=== PATIENT | female | born 1955 | race Caucasian/White ===

== ENCOUNTER 2022-12-31 09:55 | Emergency (ER) | payer MEDICARE, SELFPAY ==
[2022-12-31] VITALS (14 sets, daily range): BP systolic 132–164; BP diastolic 75–93; PULSE 55–96; RESP 10–20; TEMP 36.5; O2SAT 86–100; BMI 22.9
--- NOTE | 2022-12-31 10:44 | XR_ITS ---
The [address] [address] Patient Name: CRISTOBAL CALERO MRN: [id number] date: 1955 Sex: F Assigned Patient Location: ER Current Patient Location: ER Accession/Order Number: [id number] Exam Date: 12/31/2022 11:00 Report Date: 12/31/2022 11:19 At the request of: DAYSI NOBLE Procedure: XR chest 2V EXAM: XR chest 2V HISTORY: Shortness of breath; technologist notes state shortness of breath, chest pressure and left arm pain intermittently for one week. COMPARISON: None. TECHNIQUE: PA and lateral views of the chest performed. FINDINGS: The trachea is midline. The heart size is normal. The cardiomediastinal silhouette and hilar shadows are normal. The lung volumes are normal. The lung johansen are clear. There is no pneumothorax. There are stable surgical clips overlying the thoracic inlet and upper chest. There is no acute osseous abnormality. XR/XR chest 2V IMPRESSION: There is no acute cardiopulmonary process. Electronically authenticated by: FABIOLA DELGADO Date: 12/31/2022 11:19
--- NOTE | 2022-12-31 10:44 | ECG_ITS ---
The [facility] Test Date: 2022-12-31 Pat Name: CRISTOBAL CALERO Department: Room: - Gender: Female Reo Asset Manager: : 1955 Requested By: ANITHA RAMEY Order Number: [id number] Reading MD: ANITHA RAMEY Measurements Intervals [place] Rate: 61 P: 76 RI: 156 QRS: -21 QRSD: 82 T: 66 QT: 412 QTc: 414 Interpretive Statements 1100 Sinus rhythm 3413 Cannot rule out septal myocardial infarction, probably old 9150 abnormal ECG No previous ECG available for comparison Electronically Signed On 01-03-2023 7:32:33 EDT by ANITHA RAMEY
--- NOTE | 2022-12-31 10:45 | ED_ITS ---
HPI - General Adult General Chief complaint: Chest Pain Stated complaint: PAIN IN L ARM, MILD PRESSURE IN CHEST SOB Time Seen by Provider: 12/31/22 10:44 Source: patient Mode of arrival: walk-in Limitations: no limitations History of Present Illness HPI narrative: Patient is a 67-year-old female who is presenting to the Emergency Room with chief complaint of left-sided neck pain, etc. chest pain, shortness of breath, left arm pain. Patient has a history of cervical stenosis from C3-C7. Patient's been in the left sided chest pain since 4/5 PM yesterday. Patient is uncertain if her left-sided chest pain and left shoulder pain and left arm pain are due to the left side of her neck versus cardiac in nature. 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 Patient's had no injury. No vision or hearing changes. Patient states that she has done injections of cervical spine previously in the past with some relief. Dr. Mcgregor is patient's PCP. Patient just had a stress test and echocardiogram approximately 6-7 months ago. Patient's no chronic history. Patient does have a history of cholesterol,, she is not take statins secondary to statins cause pancreatitis. No other acute complaints. . All systems are negative except as noted/marked. All systems reviewed and otherwise negative. . Nurses note and vital signs reviewed and patient is not hypoxic. General: The patient appears well and in no apparent distress. Patient is resting comfortably on cart. Patient is not toxic, lethargic, or listless Skin: Warm, dry, no pallor noted. There is no rash noted. No petechiae, purpura. Head: Normocephalic, atraumatic; Patient has moderate tenderness to palpation to the soft tissue to the left paracervical area, mild midline C3-C7 tenderness to palpation. Eye: Normal conjunctiva, no drainage, EOMI. PERRL Ears, Nose, Mouth, and Throat: oral mucosa is moist. Nares patent. Mouth without vesicles. Cardiovascular: Regular Rate and Rhythm, no murmur, gallop, rub. No reproducible tenderness to palpation to the left anterior chest wall. No rash. Respiratory: Patient is in no distress, no accessory muscle use, lungs are clear to auscultation, no wheezing, rales or rhonchi Back: non-tender, no CVA tenderness bilaterally to percussion. No CT LS midline pain GI: soft, no tenderness to palpation, no masses appreciated. No rebound, guarding, or rigidity noted. No flank pain bilateral, No distention Musculoskeletal: Patient has full range of motion of all of the extremities, no motor, sensory, or focal neurological deficits Neurological: A&O x3, normal speech Psychiatric: Cooperative Related Data Previous Rx's Medication Instructions Recorded methocarbamol 500 mg tablet 500 mg PO Q8H PRN muscle spasm #10 12/31/22 tabs Allergies Allergy/AdvReac Type Severity Reaction Status Date / Time acetaminophen [From Percocet] Allergy Severe Verified 12/31/22 10:20 aspirin Allergy Severe Anaphylaxis Verified 12/31/22 10:20 butorphanol [From Stadol] Allergy Severe Rash Verified 12/31/22 10:20 ciprofloxacin [From Cipro] Allergy Severe Verified 12/31/22 10:20 homatropine [From Hydromet] Allergy Severe Rash Verified 12/31/22 10:20 hydrocodone [From Hydromet] Allergy Severe Rash Verified 12/31/22 10:20 hydromorphone [From Dilaudid] Allergy Severe Rash Verified 12/31/22 10:20 oxycodone [From Percocet] Allergy Severe Verified 12/31/22 10:20 sulfamethoxazole Allergy Severe severe Verified 12/31/22 10:20 [From Bactrim] illness theophylline Allergy Severe Dizziness Verified 12/31/22 10:20 tramadol Allergy Severe Rash Verified 12/31/22 10:20 trimethoprim [From Bactrim] Allergy Severe severe Verified 12/31/22 10:20 illness morphine AdvReac Severe stomach Verified 12/31/22 10:20 pain promethazine [From Phenergan] AdvReac Severe spasms Verified 12/31/22 10:20 lodine Allergy Severe Uncoded 12/31/22 10:20 PFSH [facility] Medical History (Updated 12/31/22 @ 11:56 by Martinez Eaton MD) Surgical History (Updated 12/31/22 @ 10:47 by Booker Bone) Exam Constitutional Vital Signs, click to edit/add: Last Vital Signs Temp 97.7 F 12/31/22 10:05 Pulse 55 L 12/31/22 11:45 Resp 17 12/31/22 11:45 BP 132/78 H 12/31/22 11:45 Pulse Ox 100 12/31/22 11:45 Course Vital Signs Vital signs: Vital Signs Temperature 97.7 F 12/31/22 10:05 Pulse Rate 65 12/31/22 10:05 Respiratory Rate 20 12/31/22 10:05 Blood Pressure 153/90 H 12/31/22 10:05 Pulse Oximetry 98 12/31/22 10:05 Temperature 97.7 F 12/31/22 10:05 Pulse Rate 55 L 12/31/22 11:45 Respiratory Rate 17 12/31/22 11:45 Blood Pressure 132/78 H 12/31/22 11:45 Pulse Oximetry 100 12/31/22 11:45 Medical Decision Making MDM Narrative Medical decision making narrative: EKG interpretation. Normal sinus rhythm at 60 beats a minute. Normal axis deviation. No acute ST elevation, no acute ectopy. QTC of 414. Patient chest x-ray, lab work showed no acute findings. Patient will be sent home with a prescription for Robaxin. Patient will follow-up with PCP for furthe r evaluation as well. No questions at discharge. Patient continue ice, cervical stretching. Lab Data Lab results reviewed: Yes I reviewed the patient's lab results Labs: Lab Results 12/31/22 Range/Units 10:12 WBC 9.0 (4.0-11.0) 10^3/uL RBC 4.73 (4.20-5.40) 10^6/uL Hgb 14.5 (12.0-16.0) g/dL Hct 43.4 (36.0-48.0) % MCV 91.8 (81.0-99.0) fL MCH 30.7 (26.7-34.0) pg MCHC 33.4 (29.9-35.2) g/dL RDW 12.9 (11.0-15.0) % Plt Count 346 (150-450) 10^3/uL MPV 9.3 L (9.5-13.5) fL Neut % (Auto) 66.0 (43.0-75.0) % Lymph % (Auto) 22.2 (20.5-60.0) % Rowan % (Auto) 10.3 (1.7-12.0) % Eos % (Auto) 0.6 L (0.9-7.0) % Baso % (Auto) 0.7 (0.2-2.0) % Neut # (Auto) 5.9 (1.4-6.5) 10^3/uL Lymph # (Auto) 2.0 (1.2-3.8) 10^3/uL Rowan # (Auto) 0.9 H (0.3-0.8) 10^3/uL Eos # (Auto) 0.1 (0.0-0.7) 10^3/uL Baso # (Auto) 0.1 (0.0-0.1) 10^3/uL Abs Immat Gran (auto) 0.02 (0.00-0.03) 10^3/uL Imm/Tot Granulo (auto) 0.2 (0.0-0.5) % Sodium 141 (136-145) mmol/L Potassium 3.5 (3.5-5.1) mmol/L Chloride 104 (98-107) mmol/L Carbon Dioxide 25.6 (21.0-32.0) mmol/L Anion Gap 14.9 BUN 9.0 (7.0-18.0) mg/dL Creatinine 0.94 (0.55-1.02) mg/dL Est GFR ( Amer) >60 (>=60) Est GFR (Non-Af Amer) 60 (>=60) BUN/Creatinine Ratio 9.6 Glucose 112 H (74-106) mg/dL Calcium 9.6 (8.5-10.1) mg/dL Total Bilirubin 0.5 (0.2-1.0) mg/dL AST 25 (15-37) U/L ALT 34 (14-59) U/L Alkaline Phosphatase 85 (46-116) U/L Troponin I High Sens <4.0 L (4.0-51.3) pg/mL NT-Pro-B Natriuret Pep 103.0 (<=900.0) pg/mL Total Protein 7.7 (6.4-8.2) g/dL Albumin 3.9 (3.4-5.0) g/dL Globulin 3.8 g/dL Albumin/Globulin Ratio 1.0 ECG Data Attestation: I personally reviewed and interpreted this ECG as follows: Discharge Plan Discharge Chief Complaint: Chest Pain Clinical Impression: Dyspnea, Chronic cervical pain, Chest pain Patient Disposition: Home, Self-Care Prescriptions / Home Meds: New methocarbamol 500 mg tablet 500 mg PO Q8H PRN (Reason: muscle spasm) Qty: 10 0RF Instructions: Chest Pain (ED), Chronic Pain (ED), Dyspnea (ED), Chronic Neck Pain (DC) Additional Instructions: Follow-up with Dr. Mcgregor for additional care and treatment of chronic cervical pain as needed. No acute findings on today's cardiac testing. Stand Alone Forms: Portal Instructions Referrals: Min Mcgregor MD [Primary Care Provider] - 1 week
[2022-12-31 10:56] LABS: Basophils Absolute Auto 0.1 10^3/uL (0.0-0.1); Basophils Percent Auto 0.7 % (0.2-2.0); Eosinophils Absolute Auto 0.1 10^3/uL (0.0-0.7); Eosinophils Percent Auto 0.6 % (0.9-7.0); Hematocrit 43.4 % (36.0-48.0); Hemoglobin 14.5 g/dL (12.0-16.0); Immature Granulocytes Abs Auto 0.02 10^3/uL (0.00-0.03); Immature Granulocytes Pct Auto 0.2 % (0.0-0.5); Lymphocytes Percent Auto 22.2 % (20.5-60.0); Mean Corpuscular HGB Conc 33.4 g/dL (29.9-35.2); Mean Corpuscular Hemoglobin 30.7 pg (26.7-34.0); Mean Corpuscular Volume 91.8 fL (81.0-99.0); Mean Platelet Volume 9.3 fL (9.5-13.5); Monocytes Absolute Auto 0.9 10^3/uL (0.3-0.8); Monocytes Percent Auto 10.3 % (1.7-12.0); Neutrophils Absolute Auto 5.9 10^3/uL (1.4-6.5); Platelet Count 346 10^3/uL (150-450); Red Blood Count 4.73 10^6/uL (4.20-5.40); Red Cell Distribution Width 12.9 % (11.0-15.0)
[2022-12-31] MEDS: ORPHENADRINE 60 MG/ 2 ML VIAL IV (11:14)
[2022-12-31] MEDS: KETOROLAC TROMETHAMINE 30 MG/ML VIAL IVP (11:14)
[2022-12-31 11:18] LABS: Alanine Aminotransferase 34 U/L (14-59); Albumin Level 3.9 g/dL (3.4-5.0); Alkaline Phosphatase 85 U/L (46-116); Anion Gap 14.9; Aspartate Amino Transferase 25 U/L (15-37); BUN Creatinine Ratio 9.6; Bilirubin Total 0.5 mg/dL (0.2-1.0); Calcium 9.6 mg/dL (8.5-10.1); Carbon Dioxide 25.6 mmol/L (21.0-32.0); Chloride 104 mmol/L (98-107); Estimated GFR (African America >60 (>=60); Estimated GFR (Non-African Ame 60 (>=60); Globulin 3.8 g/dL; Glucose 112 mg/dL (74-106); Potassium 3.5 mmol/L (3.5-5.1); Sodium 141 mmol/L (136-145); Total Protein 7.7 g/dL (6.4-8.2); Troponin I High Sensitivity <4.0 pg/mL (4.0-51.3)
[2022-12-31] MEDS: HYDROCODONE/ACETAMINOPHEN 5-325 MG TABLET 1 TAB PO (12:32)
== END 2022-12-31 12:40 | disposition home or self-care (01) ==
PROVIDERS: Emergency Provider Emergency Medicine; PCP Family Medicine
DX: R07.9 Chest pain, unspecified (principal); M54.2 Cervicalgia; R06.00 Dyspnea, unspecified; G89.29 Other chronic pain; M48.02 Spinal stenosis, cervical region
CPT/HCPCS: 36415; 71046; 80053; 83880; 84484; 85025; 93005; 96374; 96375; 99285

== ENCOUNTER 2023-01-31 09:54 | Outpatient (OUT) | payer MEDICARE, SELFPAY ==
--- NOTE | 2023-01-31 09:57 | US_ITS ---
The [address] [address] Patient Name: CRISTOBAL CALERO MRN: [id number] date: 1955 Sex: F Assigned Patient Location: US Current Patient Location: US Accession/Order Number: [id number] Exam Date: 01/31/2023 10:00 Report Date: 01/31/2023 12:12 At the request of: ANITHA RAMEY Procedure: US right upper quadrant EXAM: US right upper quadrant EXAM DATE: 01/31/2023 8:00 AM MDT COMPARISON: CT abdomen 06/06/2020. INDICATION: R10.12 LEFT UPPER QUAD PAIN TECHNIQUE: Limited ultrasound of the right upper quadrant of abdomen was performed. Images were reviewed on a separate workstation. FINDINGS: Hepatic parenchyma is homogeneous. Liver length measures 12.8 cm. No focal intraparenchymal abnormality detected. Gallbladder is surgically absent. No intrahepatic or extrahepatic biliary ductal dilatation noted. CBD measures 4.2 mm. Portal vein is patent with hepatopetal flow. Pancreas is partially obscured by bowel gas; visualized parenchyma is homogeneous. Right kidney measures 9.6 x 3.9 x 4.1 cm. Renal cortex measures 0.8 cm. No hydronephrosis or nephrolithiasis noted. No free fluid noted in the right upper abdomen. US/US right upper quadrant IMPRESSION: 1. Gallbladder is surgically absent. 2. No focal hepatic lesion or ascites identified. 3. Right kidney without hydronephrosis. 4. Left upper quadrant was not evaluated on this study. Consider dedicated left upper quadrant ultrasound or CT if a persistent clinical concern exists. Electronically authenticated by: KRISTINE CABRAL Date: 01/31/2023 12:12
== END 2023-01-31 09:55 | disposition home or self-care (01) ==
LOC: US 09:54
PROVIDERS: PCP Family Medicine; Visit Provider Family Medicine
DX: R10.12 Left upper quadrant pain (principal)
CPT/HCPCS: 76705

== ENCOUNTER 2023-02-25 18:57 | Emergency (ER) | payer MEDICARE, SELFPAY ==
[2023-02-25 19:06] VITALS: BP 119/76; PULSE 66; RESP 20; TEMP 36.6; O2SAT 100; BMI 23.4
--- NOTE | 2023-02-25 19:28 | ECG_ITS ---
The [facility] Test Date: 2023-02-25 Pat Name: CRISTOBAL CALERO Department: Room: - Gender: Female Radiation Monitor: : 1955 Requested By: ANITHA RAMEY Order Number: [id number] Reading MD: ANITHA RAMEY Measurements Intervals [place] Rate: 61 P: 61 MS: 146 QRS: 40 QRSD: 80 T: 42 QT: 416 QTc: 418 Interpretive Statements 1100 Sinus rhythm 9110 normal ECG Compared to ECG 12/31/2022 10:10:59 Myocardial infarct finding no longer present Electronically Signed On 02-26-2023 5:53:08 EDT by ANITHA RAMEY
--- NOTE | 2023-02-25 19:29 | XR_ITS ---
The [place] [id number] Patient Name: CRISTOBAL CALERO MRN: [id number] date: 1955 Sex: F Assigned Patient Location: ED.MAIN Current Patient Location: ER Accession/Order Number: [id number] Exam Date: 02/25/2023 19:36 Report Date: 02/25/2023 20:35 At the request of: GIANNA COSME Procedure: XR chest 1V EXAM: XR chest 1V HISTORY: pain COMPARISON: 12/31/2022 TECHNIQUE: Frontal view of the chest. FINDINGS: Clips project over the lung apices bilaterally. The lungs appear hyperinflated suggesting COPD. No focal consolidations or pleural effusions. Cardiomediastinal silhouette is unremarkable. Visualized osseous structures are unremarkable. XR/XR chest 1V IMPRESSION: No acute disease. Electronically authenticated by: CLARK SILVESTRE Date: 02/25/2023 20:35
[2023-02-25 19:40] VITALS: BP 152/81; PULSE 67; RESP 16; O2SAT 99
--- NOTE | 2023-02-25 19:41 | ED.DIZZY1 ---
HPI - Dizziness General Chief Complaint: Dizziness Stated Complaint: Low Pulse Rate, Dizziness Time Seen by Provider: 02/25/23 19:28 Source: patient Mode of arrival: Wheelchair Limitations: no limitations Limitations comment: patient is feeling dizzy History of Present Illness HPI Narrative: 68-year-old female with no significant past medical history presents for dizziness that is been intermittent for the past 2 days. She states that she feels lightheaded and like the room is spinning. A couple days ago her urine smelled very strong and she increased her water intake and this resolved. She feels worse when she goes from sitting to standing. Denies headache, vision changes, abd or back pain, dysuria, n/v/d, SOB or CP Related Data Home Medications Medication Instructions Recorded Confirmed ClearLax DAILY constipation 02/25/23 gabapentin 100 mg capsule mg 02/25/23 oxycodone-acetaminophen 5 mg-325 tab 02/25/23 mg tablet (Percocet) sumatriptan succinate 100 mg 100 mg PO .at onset PRN migraines 02/25/23 02/25/23 tablet (Imitrex) tizanidine 2 mg tablet mg 02/25/23 Previous Rx's Medication Instructions Recorded methocarbamol 500 mg tablet 500 mg PO Q8H PRN muscle spasm #10 12/31/22 tabs Allergies Allergy/AdvReac Type Severity Reaction Status Date / Time acetaminophen [From Percocet] Allergy Severe Verified 12/31/22 10:20 aspirin Allergy Severe Anaphylaxis Verified 12/31/22 10:20 butorphanol [From Stadol] Allergy Severe Rash Verified 12/31/22 10:20 ciprofloxacin [From Cipro] Allergy Severe Verified 12/31/22 10:20 homatropine [From Hydromet] Allergy Severe Rash Verified 12/31/22 10:20 hydrocodone [From Hydromet] Allergy Severe Rash Verified 12/31/22 10:20 hydromorphone [From Dilaudid] Allergy Severe Rash Verified 12/31/22 10:20 metoclopramide [From Reglan] Allergy Severe Verified 02/25/23 19:30 oxycodone [From Percocet] Allergy Severe Verified 12/31/22 10:20 sulfamethoxazole Allergy Severe severe Verified 12/31/22 10:20 [From Bactrim] illness theophylline Allergy Severe Dizziness Verified 12/31/22 10:20 tramadol Allergy Severe Rash Verified 12/31/22 10:20 trimethoprim [From Bactrim] Allergy Severe severe Verified 12/31/22 10:20 illness morphine AdvReac Severe stomach Verified 12/31/22 10:20 pain promethazine [From Phenergan] AdvReac Severe spasms Verified 12/31/22 10:20 lodine Allergy Severe Uncoded 12/31/22 10:20 Review of Systems ROS Status of ROS 10 or more systems reviewed and unremarkable except as noted in history and below [facility] Medical History (Updated 02/25/23 @ 19:44 by LANDY Randle) Surgical History (Updated 12/31/22 @ 10:47 by Booker Bone) Social History Smoking status: Never smoker Exam Narrative Exam Narrative: General: A&Ox3, no distress, talking in full an complete sentences skin: warm, dry, intact head: normocephalic, atraumatic eyes: EOMI nose: nares patent neck: supple, trachea midline cardiac: +S1/S1. no murmur respiratory: lungs CTA, non-labored, no wheezing, no retractions extremities: FROM x 4, strength +5/5 neuro: A&Ox3, cranial nerves II through XII intact psych: appropriate mood and affect, cooperative Constitutional Vital Signs, click to edit/add: Last Vital Signs Temp 97.8 F 02/25/23 19:06 Pulse 64 02/25/23 21:13 Resp 16 02/25/23 21:13 BP 128/85 02/25/23 21:13 Pulse Ox 99 02/25/23 21:13 O2 Del Method Room Air 02/25/23 21:13 Course Vital Signs Vital signs: Vital Signs Temperature 97.8 F 02/25/23 19:06 Pulse Rate 66 02/25/23 19:06 Respiratory Rate 20 02/25/23 19:06 Blood Pressure 119/76 02/25/23 19:06 Pulse Oximetry 100 02/25/23 19:06 Oxygen Delivery Method Room Air 02/25/23 19:06 Temperature 97.8 F 02/25/23 19:06 Pulse Rate 64 02/25/23 21:13 Respiratory Rate 16 02/25/23 21:13 Blood Pressure 128/85 02/25/23 21:13 Pulse Oximetry 99 02/25/23 21:13 Oxygen Delivery Method Room Air 02/25/23 21:13 MDM - Dizziness MDM Narrative Medical decision making narrative: EKG sinus rhythm at a rate of 61. She is medicated with meclizine. Patient still dizzy despite meclizine and will be given Ativan. No acute findings on final read of chest x-ray. No significant lab normalities. UA is positive for leukocytes, but the microscopic is not completed and CT head is pending at time of shift change. Case discussed and transferred to Dr. Santillan for treatment and disposition. Lab Data Labs: Lab Results 02/25/23 02/25/23 Range/Units 19:20 19:28 WBC 6.7 (4.0-11.0) 10^3/uL RBC 4.56 (4.20-5.40) 10^6/uL Hgb 14.1 (12.0-16.0) g/dL Hct 43.8 (36.0-48.0) % MCV 96.1 (81.0-99.0) fL MCH 30.9 (26.7-34.0) pg MCHC 32.2 (29.9-35.2) g/dL RDW 13.2 (11.0-15.0) % Plt Count 299 (150-450) 10^3/uL MPV 9.3 L (9.5-13.5) fL Neut % (Auto) 56.7 (43.0-75.0) % Lymph % (Auto) 30.0 (20.5-60.0) % [place] % (Auto) 11.1 (1.7-12.0) % Eos % (Auto) 1.4 (0.9-7.0) % Baso % (Auto) 0.6 (0.2-2.0) % Neut # (Auto) 3.8 (1.4-6.5) 10^3/uL Lymph # (Auto) 2.0 (1.2-3.8) 10^3/uL [place] # (Auto) 0.7 (0.3-0.8) 10^3/uL Eos # (Auto) 0.1 (0.0-0.7) 10^3/uL Baso # (Auto) 0.0 (0.0-0.1) 10^3/uL Abs Immat Gran (auto) 0.01 (0.00-0.03) 10^3/uL Imm/Tot Granulo (auto) 0.2 (0.0-0.5) % PT 9.4 (9.0-11.6) sec INR <0.93 Sodium 140 (136-145) mmol/L Potassium 3.9 (3.5-5.1) mmol/L Chloride 104 (98-107) mmol/L Carbon Dioxide 27.1 (21.0-32.0) mmol/L Anion Gap 12.8 BUN 10.0 (7.0-18.0) mg/dL Creatinine 0.92 (0.55-1.02) mg/dL Est GFR ( Amer) >60 (>=60) Est GFR (Non-Af Amer) >60 (>=60) BUN/Creatinine Ratio 10.9 Glucose 93 (74-106) mg/dL Calcium 9.2 (8.5-10.1) mg/dL Magnesium 2.3 (1.8-2.4) mg/dL Total Bilirubin 0.3 (0.2-1.0) mg/dL AST 24 (15-37) U/L ALT 36 (14-59) U/L Alkaline Phosphatase 90 (46-116) U/L Troponin I High Sens <4.0 L (4.0-51.3) pg/mL NT-Pro-B Natriuret Pep 90.0 (<=900.0) pg/mL Total Protein 7.3 (6.4-8.2) g/dL Albumin 3.8 (3.4-5.0) g/dL Globulin 3.5 g/dL Albumin/Globulin Ratio 1.1 Urine Color Lt. yellow (YELLOW) Urine Clarity Clear (CLEAR) Urine pH 7.5 (5.0-9.0) Ur Specific [place] <=1.005 A (1.005-1.025) Urine Protein Negative (NEG/TRACE) mg/dL Urine Glucose (UA) Negative (NEGATIVE) mg/dL Urine Ketones Negative (NEGATIVE) mg/dL Urine Occult Blood Negative (NEGATIVE) Urine Nitrite Negative (NEGATIVE) Urine Bilirubin Negative (NEGATIVE) Urine Urobilinogen 0.2 (0.2-1.0) EU/dL Ur Leukocyte Esterase Trace A (NEGATIVE) Urine RBC 0-2 (0-2) #/HPF Urine WBC 0-2 A (NONE SEEN) #/HPF Ur Squamous Epith Cells None seen (NONE/RARE) #/LPF Urine Crystals None seen (None Seen) #/HPF Urine Bacteria None seen (NONE SEEN) #/HPF Urine Casts None seen (NONE SEEN) #/LPF Urine Mucus None seen (NONE SEEN) Discharge Plan Discharge Chief Complaint: Dizziness Clinical Impression: Dizziness Prescriptions / Home Meds: No Action methocarbamol 500 mg tablet 500 mg PO Q8H PRN (Reason: muscle spasm) Qty: 10 0RF Hold Instructions: not on patients list tizanidine 2 mg tablet Patient Comments: only takes 1 at night per patient list gabapentin 100 mg capsule oxycodone-acetaminophen [Percocet] 5-325 mg tablet ClearLax DAILY Rx Instructions: once daily per patients list sumatriptan succinate [Imitrex] 100 mg tablet 100 mg PO .at onset PRN (Reason: migraines) Rx Instructions: do not exceed 2 doses per 24 hrs Referrals: Min Mcgregor MD [Primary Care Provider] - 1 week
[2023-02-25] MEDS: MECLIZINE HCL 12.5 MG TABLET 25 MG PO (19:53)
[2023-02-25 20:26] LABS: Basophils Percent Auto 0.6 % (0.2-2.0); Eosinophils Absolute Auto 0.1 10^3/uL (0.0-0.7); Eosinophils Percent Auto 1.4 % (0.9-7.0); Hematocrit 43.8 % (36.0-48.0); Hemoglobin 14.1 g/dL (12.0-16.0); Immature Granulocytes Abs Auto 0.01 10^3/uL (0.00-0.03); Immature Granulocytes Pct Auto 0.2 % (0.0-0.5); Mean Corpuscular HGB Conc 32.2 g/dL (29.9-35.2); Mean Corpuscular Hemoglobin 30.9 pg (26.7-34.0); Mean Corpuscular Volume 96.1 fL (81.0-99.0); Mean Platelet Volume 9.3 fL (9.5-13.5); Monocytes Absolute Auto 0.7 10^3/uL (0.3-0.8); Monocytes Percent Auto 11.1 % (1.7-12.0); Neutrophils Absolute Auto 3.8 10^3/uL (1.4-6.5); Neutrophils Percent Auto 56.7 % (43.0-75.0); Platelet Count 299 10^3/uL (150-450); Red Blood Count 4.56 10^6/uL (4.20-5.40); Red Cell Distribution Width 13.2 % (11.0-15.0); White Blood Count 6.7 10^3/uL (4.0-11.0)
[2023-02-25 20:33] LABS: Prothrombin Time 9.4 sec (9.0-11.6)
[2023-02-25 20:36] LABS: INR <0.93
[2023-02-25 20:54] LABS: Alanine Aminotransferase 36 U/L (14-59); Albumin Globulin Ratio 1.1; Albumin Level 3.8 g/dL (3.4-5.0); Alkaline Phosphatase 90 U/L (46-116); Anion Gap 12.8; Aspartate Amino Transferase 24 U/L (15-37); BUN Creatinine Ratio 10.9; Bilirubin Total 0.3 mg/dL (0.2-1.0); Calcium 9.2 mg/dL (8.5-10.1); Carbon Dioxide 27.1 mmol/L (21.0-32.0); Chloride 104 mmol/L (98-107); Estimated GFR (African America >60 (>=60); Estimated GFR (Non-African Ame >60 (>=60); Globulin 3.5 g/dL; Glucose 93 mg/dL (74-106); Magnesium 2.3 mg/dL (1.8-2.4); Potassium 3.9 mmol/L (3.5-5.1); Sodium 140 mmol/L (136-145); Total Protein 7.3 g/dL (6.4-8.2)
[2023-02-25 20:56] LABS: Troponin I High Sensitivity <4.0 pg/mL (4.0-51.3)
[2023-02-25 21:06] LABS: Bilirubin Urine NEGATIVE (NEGATIVE); Blood Urine NEGATIVE (NEGATIVE); Clarity Urine CLEAR (CLEAR); Color Urine LT. YELLOW (YELLOW); Glucose Urine UA NEGATIVE (NEGATIVE); Ketones Urine NEGATIVE (NEGATIVE); Leukocyte Esterase Urine TRACE (NEGATIVE); Nitrite Urine NEGATIVE (NEGATIVE); Protein Urine NEGATIVE (NEG/TRACE); Specific Gravity Urine <=1.005 (1.005-1.025); Urobilinogen Urine 0.2 EU/dL (0.2-1.0); pH Urine 7.5 (5.0-9.0)
[2023-02-25] MEDS: LORAZEPAM 0.5 MG TABLET PO (21:12)
[2023-02-25 21:13] VITALS: BP 128/85; PULSE 64; RESP 16; O2SAT 99
--- NOTE | 2023-02-25 21:30 | CT_ITS ---
The [address] [address] Patient Name: CRISTOBAL CALERO MRN: [id number] date: 1955 Sex: F Assigned Patient Location: ER Current Patient Location: ER Accession/Order Number: [id number] Exam Date: 02/25/2023 21:39 Report Date: 02/25/2023 21:59 At the request of: GIANNA COSME Procedure: CT head/brain wo con INDICATION: 68 years old; Female. Dizziness for 2 days. History of migraine. TECHNIQUE: CT Head (ax/cor/sag reformats). Ionizing radiation dose reduced via iterative reconstruction/FBP blend and body size kV/mA adjustment. Comparison: Head CT dated 04/21/2021. FINDINGS: POSTOPERATIVE CHANGES: None. BRAIN PARENCHYMA: No focal lesions. No mass effect. No midline shift or herniation. No intraparenchymal or extra-axial hemorrhage. Patchy low-density in the white matter without mass effect consistent with small vessel ischemic change. This finding may also be seen in chronic migraine. VENTRICLES/EXTRA-AXIAL SPACES: Normal for patient's age. SINUSES/MASTOIDS: The visualized sinuses are clear. Mastoid air cells are clear. MSK: No displaced or depressed calvarial fracture. OTHER: No hyperdense intraluminal thrombus is seen. CT/CT head/brain wo con IMPRESSION: 1. No acute intracranial abnormality. No hemorrhage or mass effect. 2. Nonspecific white matter changes consistent with small vessel ischemia although this may also be seen with chronic migraine. If there is concern for infarction, then follow-up with MRI including diffusion imaging would be more sensitive. Electronically authenticated by: ELDA BELCHER Date: 02/25/2023 21:59
[2023-02-25 21:37] LABS: Bacteria Urine NONE SEEN #/HPF (NONE SEEN); Cast Seen? NONE SEEN #/LPF (NONE SEEN); Crystals Seen? None Seen #/HPF (None Seen); Mucus Urine NONE SEEN (NONE SEEN); RBC Urine 0-2 #/HPF (0-2); Squamous Epithelial Cell Urine NONE SEEN #/LPF (NONE/RARE); WBC Urine 0-2 #/HPF (NONE SEEN)
[2023-02-25 22:30] VITALS: BP 129/77; PULSE 61; RESP 16; O2SAT 94
== END 2023-02-25 22:35 | disposition home or self-care (01) ==
PROVIDERS: Physician Assistant; Emergency Provider Emergency Medicine; PCP Family Medicine
DX: R42 Dizziness and giddiness (principal); Z79.899 Other long term (current) drug therapy
CPT/HCPCS: 36415; 70450; 71045; 80053; 81001; 83735; 83880; 84484; 85025; 85610; 93005; 99285

== ENCOUNTER 2023-03-07 09:41 | Outpatient (OUT) | payer MEDICARE, SELFPAY ==
[2023-03-07 10:11] LABS: Basophils Percent Auto 0.4 % (0.2-2.0); Eosinophils Absolute Auto 0.1 10^3/uL (0.0-0.7); Hemoglobin 14.1 g/dL (12.0-16.0); Immature Granulocytes Abs Auto 0.02 10^3/uL (0.00-0.03); Immature Granulocytes Pct Auto 0.3 % (0.0-0.5); Lymphocytes Absolute Auto 0.9 10^3/uL (1.2-3.8); Lymphocytes Percent Auto 12.7 % (20.5-60.0); Mean Corpuscular Hemoglobin 30.9 pg (26.7-34.0); Mean Corpuscular Volume 96.3 fL (81.0-99.0); Mean Platelet Volume 9.1 fL (9.5-13.5); Monocytes Absolute Auto 0.6 10^3/uL (0.3-0.8); Monocytes Percent Auto 8.8 % (1.7-12.0); Neutrophils Absolute Auto 5.6 10^3/uL (1.4-6.5); Neutrophils Percent Auto 76.8 % (43.0-75.0); Platelet Count 285 10^3/uL (150-450); Red Blood Count 4.57 10^6/uL (4.20-5.40); White Blood Count 7.2 10^3/uL (4.0-11.0)
[2023-03-07 10:47] LABS: Estimated Average Glucose 108 mg/dL; Glycohemoglobin A1C 5.4 % (4.5-6.2)
[2023-03-07 11:04] LABS: Alanine Aminotransferase 33 U/L (14-59); Albumin Level 3.6 g/dL (3.4-5.0); Alkaline Phosphatase 96 U/L (46-116); Anion Gap 13.2; Aspartate Amino Transferase 20 U/L (15-37); BUN Creatinine Ratio 19.3; Bilirubin Total 0.4 mg/dL (0.2-1.0); Carbon Dioxide 26.8 mmol/L (21.0-32.0); Chloride 106 mmol/L (98-107); Chol HDL Ratio 4.8; Cholesterol 300 mg/dL (<=200); Estimated GFR (African America >60 (>=60); Estimated GFR (Non-African Ame >60 (>=60); Free T3 1.99 pg/mL (2.18-3.98); Globulin 3.7 g/dL; Glucose 88 mg/dL (74-106); HDL Cholesterol 63 mg/dL (40-60); Sodium 142 mmol/L (136-145); Thyroid Stimulating Hormone 1.413 uIU/mL (0.358-3.740); Total Protein 7.3 g/dL (6.4-8.2); Triglycerides 116 mg/dL (<=150); VLDL CHOLESTEROL 23.2 mg/dL
[2023-03-09 11:07] LABS: Insulin 6.3 uIU/mL (2.6-24.9)
== END 2023-03-07 09:42 | disposition home or self-care (01) ==
LOC: LAB 09:41
PROVIDERS: PCP Family Medicine; Visit Provider Family Medicine
DX: R42 Dizziness and giddiness (principal); R00.2 Palpitations; E78.5 Hyperlipidemia, unspecified; R73.09 Other abnormal glucose; D64.9 Anemia, unspecified; E55.9 Vitamin D deficiency, unspecified
CPT/HCPCS: 36415; 80053; 80061; 82306; 83036; 83525; 83540; 84436; 84443; 84481; 85025

== ENCOUNTER 2023-03-18 13:00 | Outpatient (OUT) | payer MEDICARE, SELFPAY ==
--- NOTE | 2023-03-18 13:03 | XR_ITS ---
The [address] [address] Patient Name: CRISTOBAL CALERO MRN: [id number] date: 1955 Sex: F Assigned Patient Location: [facility] Current Patient Location: [facility] Accession/Order Number: [id number] Exam Date: 03/18/2023 13:20 Report Date: 03/18/2023 20:55 At the request of: ANITHA RAMEY Procedure: XR acute abdomen series Exam: Radiographs: XR lumbar spine 2-3V, XR acute abdomen series Reason for exam: Back Pain M54.9 Comparison: Plain films dated 08/27/2021 XR/XR acute abdomen series IMPRESSION: No free intraperitoneal air. No gas-filled dilated loops of small bowel or colon. No gaseous dilation of the stomach. No fecal impaction. Cholecystectomy. Right abdominal surgical clips. Lower neck and upper chest surgical clips. Chest is otherwise unremarkable. No radiographically evident lumbar spine fractures or malalignment. Lumbar spine degenerative change with preserved intervertebral disc heights. Remainder unremarkable. Electronically authenticated by: FERMIN ROCA Date: 03/18/2023 20:55
--- NOTE | 2023-03-18 13:03 | XR_ITS ---
The [address] [address] Patient Name: CRISTOBAL CALERO MRN: [id number] date: 1955 Sex: F Assigned Patient Location: [facility] Current Patient Location: [facility] Accession/Order Number: [id number] Exam Date: 03/18/2023 13:20 Report Date: 03/18/2023 20:55 At the request of: ANITHA RAMEY Procedure: XR lumbar spine 2-3V Exam: Radiographs: XR lumbar spine 2-3V, XR acute abdomen series Reason for exam: Back Pain M54.9 Comparison: Plain films dated 08/27/2021 XR/XR lumbar spine 2-3V IMPRESSION: No free intraperitoneal air. No gas-filled dilated loops of small bowel or colon. No gaseous dilation of the stomach. No fecal impaction. Cholecystectomy. Right abdominal surgical clips. Lower neck and upper chest surgical clips. Chest is otherwise unremarkable. No radiographically evident lumbar spine fractures or malalignment. Lumbar spine degenerative change with preserved intervertebral disc heights. Remainder unremarkable. Electronically authenticated by: FERMIN ROCA Date: 03/18/2023 20:55
== END 2023-03-18 13:01 | disposition home or self-care (01) ==
LOC: RAD 13:00
PROVIDERS: PCP Family Medicine; Visit Provider Family Medicine
DX: M54.9 Dorsalgia, unspecified (principal)
CPT/HCPCS: 72100; 74022

== ENCOUNTER 2023-03-26 14:50 | Outpatient (RCR) | payer MEDICARE, SELFPAY | END 2023-05-01 16:05 | disposition home or self-care (01) | LOC: PT 14:50 | PROVIDERS: PCP Family Medicine; Visit Provider Family Medicine | DX: M54.9 Dorsalgia, unspecified (principal) | CPT/HCPCS: 97010; 97014; 97035; 97110; 97140; 97161 ==

== ENCOUNTER 2023-03-27 06:55 | Emergency (ER) | payer MEDICARE, SELFPAY ==
[2023-03-27 07:03] VITALS: BP 162/100; PULSE 69; RESP 18; TEMP 36.6; O2SAT 99; BMI 32.3
--- NOTE | 2023-03-27 07:21 | ED_ITS ---
HPI - Back Pain/Injury General Chief Complaint: Back Pain/Injury Stated Complaint: back pain Time Seen by Provider: 03/27/23 07:07 Source: patient Mode of arrival: Wheelchair History of Present Illness HPI Narrative: this patient's here complaining of back pain. She has a chronic long-standing history of these type problems. She is under the care of a local primary care doctor. She went to a physical therapy session yesterday and thinks that she did very very well. However when she got up at 6 AM this morning she noticed severe muscle spasm. She's not been taking any of her narcotic analgesics. She says she was prescribed ten tablets a year ago but only has one left. She stopped taking her muscle relaxant about 45 days ago because she said they weren't helping. Her pain is in the right side. She's not had any new trauma or injury. She scheduled get an MRI after the physical therapy sessions of been completed. She does not have bowel or bladder incontinence. She is concerned that she self-medicating herself with niacin and read that that may be causing back problems. She also read that her thyroid medicine may be causing back spasms as well. She is not running a fever. She has no urinary symptoms. Does not appear acutely ill. I think she is mentally exhausted from this problem is very emotionally labile. Related Data Home Medications Medication Instructions Recorded Confirmed ClearLax DAILY constipation 02/25/23 gabapentin 100 mg capsule mg 02/25/23 oxycodone-acetaminophen 5 mg-325 tab 02/25/23 mg tablet (Percocet) sumatriptan succinate 100 mg 100 mg PO .at onset PRN migraines 02/25/23 02/25/23 tablet (Imitrex) tizanidine 2 mg tablet mg 02/25/23 Previous Rx's Medication Instructions Recorded methocarbamol 500 mg tablet 500 mg PO Q8H PRN muscle spasm #10 12/31/22 tabs meclizine 25 mg tablet 25 mg PO BID PRN dizziness #10 tabs 02/25/23 Allergies Allergy/AdvReac Type Severity Reaction Status Date / Time acetaminophen [From Percocet] Allergy Severe Verified 12/31/22 10:20 aspirin Allergy Severe Anaphylaxis Verified 12/31/22 10:20 butorphanol [From Stadol] Allergy Severe Rash Verified 12/31/22 10:20 ciprofloxacin [From Cipro] Allergy Severe Verified 12/31/22 10:20 homatropine [From Hydromet] Allergy Severe Rash Verified 12/31/22 10:20 hydrocodone [From Hydromet] Allergy Severe Rash Verified 12/31/22 10:20 hydromorphone [From Dilaudid] Allergy Severe Rash Verified 12/31/22 10:20 metoclopramide [From Reglan] Allergy Severe Verified 02/25/23 19:30 oxycodone [From Percocet] Allergy Severe Verified 12/31/22 10:20 sulfamethoxazole Allergy Severe severe Verified 12/31/22 10:20 [From Bactrim] illness theophylline Allergy Severe Dizziness Verified 12/31/22 10:20 tramadol Allergy Severe Rash Verified 12/31/22 10:20 trimethoprim [From Bactrim] Allergy Severe severe Verified 12/31/22 10:20 illness morphine AdvReac Severe stomach Verified 12/31/22 10:20 pain promethazine [From Phenergan] AdvReac Severe spasms Verified 12/31/22 10:20 lodine Allergy Severe Uncoded 12/31/22 10:20 PFSH PFSH Medical History (Updated 03/27/23 @ 07:26 by Augie Mccarthy MD) History of colitis ?Z87.19 - Personal history of other diseases of the digestive system (ICD-10) History of diverticulitis ?Z87.19 - Personal history of other diseases of the digestive system (ICD-10) History of fibromyalgia ?Z87.39 - Personal history of other diseases of the musculoskeletal system and connective tissue (ICD-10) History of lupus Hx of chronic arthritis ?Z87.39 - Personal history of other diseases of the musculoskeletal system and connective tissue (ICD-10) Hx of esophageal reflux ?Z87.19 - Personal history of other diseases of the digestive system (ICD-10) Hx of irritable bowel syndrome ?Z87.19 - Personal history of other diseases of the digestive system (ICD-10) Hx of migraines ?Z86.69 - Personal history of other diseases of the nervous system and sense organs (ICD-10) Hx of temporomandibular joint syndrome ?Z87.39 - Personal history of other diseases of the musculoskeletal system and connective tissue (ICD-10) Surgical History (Updated 12/31/22 @ 10:47 by Booker Bone) Hx of section ?Z98.891 - History of uterine scar from previous surgery (ICD-10) Hx of cholecystectomy ?Z90.49 - Acquired absence of other specified parts of digestive tract (ICD- 10) Hx of hysterectomy ?Z90.710 - Acquired absence of both cervix and uterus (ICD-10) Hx of tonsillectomy ?Z90.89 - Acquired absence of other organs (ICD-10) Social History Smoking status: Never smoker Exam Narrative Exam Narrative: patient is emotionally labile. She is tearful off and on. Vital signs are noted. She is lying flat on her back. She is awake alert oriented ?3. Skin is warm and dry there is no diaphoresis. There is no respiratory distress and she has no chest pain or shortness of breath. Examination of her back shows her to have a lot of symptomatically muscle spasm. She has deep tendon reflexes three over four patellar bilaterally. Extensor hallucis longus function is normal bilaterally. She has no clear radiculopathy with raising her legs but she has increased muscle spasm in her back and discomfort with that maneuver. She has good perfusion to the lower extremities with no evidence of vascular insufficiency. Constitutional Vital Signs, click to edit/add: Last Vital Signs Temp 97.8 F 03/27/23 07:03 Pulse 69 03/27/23 07:03 Resp 18 03/27/23 07:03 BP 162/100 H 03/27/23 07:03 Pulse Ox 99 03/27/23 07:03 O2 Del Method Room Air 03/27/23 07:03 Course Vital Signs Vital signs: Vital Signs Temperature 97.8 F 03/27/23 07:03 Pulse Rate 69 03/27/23 07:03 Respiratory Rate 18 03/27/23 07:03 Blood Pressure 162/100 H 03/27/23 07:03 Pulse Oximetry 99 03/27/23 07:03 Oxygen Delivery Method Room Air 03/27/23 07:03 Temperature 97.8 F 03/27/23 07:03 Pulse Rate 69 03/27/23 07:03 Respiratory Rate 18 03/27/23 07:03 Blood Pressure 162/100 H 03/27/23 07:03 Pulse Oximetry 99 03/27/23 07:03 Oxygen Delivery Method Room Air 03/27/23 07:03 MDM - Back Pain/Injury MDM Narrative Medical decision making narrative: this patient has multiple medication ALLERGIES. She says however she can take oxycodone. This is inconsistent with her ALLERGY history but she says she can take that medication. Her brought her here to the hospital. I do not see an emergency medical condition and no evidence of cauda equinus syndrome. Discharge Plan Discharge Chief Complaint: Back Pain/Injury Clinical Impression: Acute lumbosacral myofascial strain Patient Disposition: Home, Self-Care Time of Disposition Decision: 07:25 Prescriptions / Home Meds: No Action methocarbamol 500 mg tablet 500 mg PO Q8H PRN (Reason: muscle spasm) Qty: 10 0RF Hold Instructions: not on patients list tizanidine 2 mg tablet Patient Comments: only takes 1 at night per patient list gabapentin 100 mg capsule oxycodone-acetaminophen [Percocet] 5-325 mg tablet ClearLax DAILY Rx Instructions: once daily per patients list sumatriptan succinate [Imitrex] 100 mg tablet 100 mg PO .at onset PRN (Reason: migraines) Rx Instructions: do not exceed 2 doses per 24 hrs meclizine 25 mg tablet 25 mg PO BID PRN (Reason: dizziness) Qty: 10 0RF Additional Instructions: use moist heat thirty minutes only four times a day. Restart your muscle relaxant. Follow-up with primary care doctor. Use pain medicines sparingly as needed Stand Alone Forms: Portal Instructions Referrals: Min Mcgregor MD [Primary Care Provider] - 1 week
[2023-03-27] MEDS: ORPHENADRINE 60 MG/ 2 ML VIAL IM (07:44)
[2023-03-27] MEDS: OXYCODONE HCL/ACETAMINOPHEN 5MG/325MG 2 TAB PO (07:44)
== END 2023-03-27 07:55 | disposition home or self-care (01) ==
PROVIDERS: Emergency Provider Emergency Medicine Emergency Medical Services; PCP Family Medicine
DX: S39.012A Strain of muscle, fascia and tendon of lower back, initial encounter (principal); X58.XXXA Exposure to other specified factors, initial encounter; Z90.49 Acquired absence of other specified parts of digestive tract; Z90.710 Acquired absence of both cervix and uterus; Z79.899 Other long term (current) drug therapy
CPT/HCPCS: 96372; 99284

== ENCOUNTER 2023-04-08 14:18 | Outpatient (OUT) | payer MEDICARE, SELFPAY ==
--- NOTE | 2023-04-08 14:28 | MM_ITS ---
Patient: CRISTOBAL CALERO Exam Date: 04/08/2023 : 1955 Gender:F Ordering : DR ANITHA RAMEY . Admission #: [id number] Family : Order #: [id number] CLICK HERE TO VIEW EXAM RADIOLOGY REPORT PROCEDURE: MM TOMOSYNTHESIS SCREENING BI COMPARISON: MG MAMM SCREEN 3D QING CAD, 03/26/2022. MG MAMM SCREEN QING W CAD, 07/21/2017. MG MAMM SCREEN QING W CAD, 06/26/2016. MG MAMM QING SCRN W CAD DIG, 12/28/2013. INDICATIONS: Screening Calculator Name NCI Breast Cancer Risk Assessment Tool 5 Year Breast Cancer Risk 1.40% Lifetime Breast Cancer Risk 4.80% Personal Breast Cancer No Personal Ovarian Cancer No Treatments None Family Cancers Cousin-maternal with breast cancer at age 29. LOCATION: The [facility] BREAST COMPOSITION: Heterogeneously dense,which may obscure small masses. FINDINGS: DIAGNOSTIC CATEGORY 1--NEGATIVE. RIGHT BREAST: No significant suspicious finding. No significant change has occurred. LEFT BREAST: No significant suspicious finding. No significant change has occurred. RECOMMENDATIONS: ROUTINE MAMMOGRAM AND CLINICAL EVALUATION IN 12 MONTHS. PLEASE NOTE: A NORMAL MAMMOGRAM DOES NOT EXCLUDE THE POSSIBILITY OF BREAST CANCER. A CLINICALLY SUSPICIOUS PALPABLE LUMP SHOULD BE BIOPSIED. Dictated by: Mike Cagle M.D. on 04/13/2023 at 13:00 Approved by: Mike Cagle M.D. on 04/13/2023 at 13:04
== END 2023-04-08 14:19 | disposition home or self-care (01) ==
LOC: MAMMO 14:18
PROVIDERS: PCP Family Medicine; Visit Provider Family Medicine
DX: Z12.31 Encounter for screening mammogram for malignant neoplasm of breast (principal); Z80.3 Family history of malignant neoplasm of breast
CPT/HCPCS: 77063; 77067

== ENCOUNTER 2023-04-20 11:28 | Outpatient (OUT) | payer MEDICARE, SELFPAY | END 2023-04-20 11:29 | disposition home or self-care (01) | LOC: LAB 11:29 | PROVIDERS: PCP Family Medicine; Visit Provider Family Medicine | DX: R79.89 Other specified abnormal findings of blood chemistry (principal) | CPT/HCPCS: 36415; 84439; 84443 ==

== ENCOUNTER 2023-06-04 16:09 | Outpatient (OUT) | payer MEDICARE, SELFPAY ==
--- OUTSIDE RECORDS SUMMARY | 2023-06-04 16:13 | XMS_ITS | CCD ---
Author Name Unknown Address [address] [place] [address] Organization [facility] Care Team Providers Care Network Project Manager Name Role Phone Anitha Ramey~[phone] UNKNOWN Unavailable Unavailable Loly, Iain Unavailable Unavailable Loly, Iain Unavailable Unavailable Hoy, Anitha~[phone] UNKNOWN Unavailable Unavailable Kade Howe Unavailable Unavailable Kade Howe Unavailable Unavailable Salam, Rockwell Unavailable Unavailable Salam, Rockwell Unavailable Unavailable Salam, Rockwell Unavailable Unavailable Hoy, Anitha~[phone] UNKNOWN Unavailable Unavailable Salam, Rockwell Unavailable Unavailable Salam, Rockwell Unavailable Unavailable Salam, Rockwell Unavailable Unavailable Hoy, Anitha~[phone] UNKNOWN Unavailable Unavailable Salam, Rockwell Unavailable Unavailable Salam, Rockwell Unavailable Unavailable Hoy, Anitha~[phone] UNKNOWN Unavailable Unavailable Salam, Rockwell Unavailable Unavailable Salam, Rockwell Unavailable Unavailable Salam, Rockwell Unavailable Unavailable Hoy, Anitha~[phone] UNKNOWN Unavailable Unavailable Salam, Rockwell Unavailable Unavailable Salam, Rockwell Unavailable Unavailable Salam, Rockwell Unavailable Unavailable Hoy, Anitha~[phone] UNKNOWN Unavailable Unavailable iKngs Thomson Attending Unavailable Anitha Ramey Primary Care Unavailable Anitha Ramey MD Primary Care Provider [phone] Luli Roy MD (Hist) Unavailable [phone] ANITHA RAMEY Primary Care Unavailable BENJAMIN MOORE Attending Unavailable DR ANITHA RAMEY Consulting Unavailable DR ANITHA RAMEY Primary Care Unavailable DR ANITHA RAMEY Attending Unavailable DR ANITHA RAMEY Admitting Unavailable DR TYRELL MOREJON Consulting Unavailable DR ANITHA RAMEY Consulting Unavailable DR ANITHA RAMEY Attending Unavailable DR ANITHA RAMEY Admitting Unavailable DR ANITHA RAMEY Primary Care Unavailable DR ANITHA RAMEY Consulting Unavailable HOY, DR WELSH Primary Care Unavailable HOY, DR WELSH Attending Unavailable HOY, DR WELSH Admitting Unavailable WEST, DR MARK Almendarez Consulting Unavailable HOY, DR WELSH Consulting Unavailable HOY, DR WELSH Primary Care Unavailable HOY, DR WELSH Attending Unavailable HOY, DR WELSH Admitting Unavailable FOLEY, ENEDELIA Consulting Unavailable HOY, DR WELSH Consulting Unavailable HOY, DR WELSH Primary Care Unavailable HOY, DR WELSH Attending Unavailable HOY, DR WELSH Admitting Unavailable HOY, DR WELSH Consulting Unavailable HOY, DR WELSH Primary Care Unavailable HOY, DR WELSH Attending Unavailable HOY, DR WELSH Admitting Unavailable ZIEBER, DR TYRELL Alonzo Consulting Unavailable HOY, DR WELSH Consulting Unavailable HOY, DR WELSH Primary Care Unavailable HOY, DR WELSH Attending Unavailable HOY, DR WELSH Admitting Unavailable HOY, DR WELSH Consulting Unavailable HOY, DR WELSH Primary Care Unavailable HOY, DR WELSH Attending Unavailable HOY, DR WELSH Admitting Unavailable ZIEBER, DR TYRELL Alonzo Consulting Unavailable FIGUEREDO, LUZ MARIA Consulting Unavailable HAY, DR SUERO Consulting Unavailable HAY, DR SUERO Attending Unavailable HAY, DR SUERO Admitting Unavailable HOY, DR WELSH Primary Care Unavailable HOY, DR WELSH Consulting Unavailable HOY, DR WELSH Primary Care Unavailable HOY, DR WELSH Attending Unavailable HOY, DR WELSH Admitting Unavailable HOY, DR WELSH Consulting Unavailable HOY, DR WELSH Primary Care Unavailable HOY, DR WELSH Attending Unavailable HOY, DR WELSH Admitting Unavailable WEST, DR MARK Almendarez Consulting Unavailable HOY, DR WELSH Primary Care Unavailable ESMER, DR GARCIA Attending Unavailable ESMER, DR GARCIA Admitting Unavailable ESMER, DR GARCIA Consulting Unavailable HOY, DR WELSH Consulting Unavailable HOY, DR WLESH Primary Care Unavailable HOY, DR WELSH Attending Unavailable HOY, DR WELSH Admitting Unavailable WEST, DR MARK Almendarez Consulting Unavailable Prasad Isabel Unavailable Bentley Bragg Unavailable Allergies Allergy Classification Reported Allergen(s) Allergy Type Date of Onset Reaction(s) Facility (1 source) Acetaminophen / oxyCODONE; Translations: [Percocet 5325] Drug Allergy [facility] Repository (1 source) Adhesive Tape; Translations: [Tape] Propensity to adverse reactions (disorder) [facility] Repository (7 sources) Aspirin; Translations: [aspirin] Drug Allergy 09-14-19 10 AOF, Unknown [facility] Repository (4 sources) Butorphanol; Translations: [Stadol] Drug Allergy Unknown [facility] Repository (6 sources) Ciprofloxacin; Translations: [ciprofloxacin] Drug Allergy Other: See Comments [facility] Repository (2 sources) Etodolac; Translations: [Lodine] Drug Allergy [facility] Repository (1 source) homatropine / HYDROcodone; Translations: [Hydromet] Drug Allergy [facility] Repository (2 sources) HYDROmorphone; Translations: [Dilaudid] Drug Allergy [facility] Repository (7 sources) Morphine; Translations: [morphine] Drug Allergy 09-14-19 10 AOF, Unknown [facility] Repository (2 sources) Promethazine; Translations: [Phenergan] Drug Allergy AOF [facility] Repository (3 sources) Acetaminophen / oxyCODONE; Translations: [OXYCODONE-ACETAM INOPHEN] Drug Allergy Other: See Comments [facility] (3 sources) Adhesive Tape; Translations: [ADHESIVE TAPE (ROSINS)] Allergy to substance Other: See Comments [facility] (3 sources) Butorphanol; Translations: [BUTORPHANOL TARTRATE] Drug Allergy 09-14-19 10 Other: See Comments [facility] (3 sources) Etodolac; Translations: [ETODOLAC] Drug Allergy 09-14-19 10 [facility] (3 sources) homatropine / HYDROcodone; Translations: [HYDROCODONE-TYLER TROPINE] Drug Allergy Other: See Comments [facility] (3 sources) HYDROmorphone; Translations: [HYDROMORPHONE (BULK)] Drug Allergy 04-10-20 11 Rash [facility] (3 sources) Promethazine; Translations: [PROMETHAZINE HCL] Drug Allergy 09-14-19 10 [facility] (1 source) Acetaminophen / oxyCODONE Drug Allergy [facility] Repository (1 source) Ciprofloxacin Drug Allergy [facility] Repository (1 source) Desonide Drug Allergy [facility] Repository (1 source) homatropine Drug Allergy [facility] Repository (1 source) Bleach (Sodium Hypochlorite) Drug allergy (disorder) 01-11-19 56 [facility] Repository (2 sources) HYDROmorphone Drug Allergy Unknown [facility] Other (2 sources) Promethazine Drug Allergy Unknown [facility] Other (2 sources) traMADol Drug Allergy Unknown [facility] Other Medications Current Medications Medication Drug Class(es) Dates Sig (Normalized) Sig (Original) acetaminophen 325 mg / oxyCODONE hydrochloride 5 mg oral tablet (2 sources) Opioid Agonist oxyCODONE-Acetam josafat phen 5-325 MG Oral for 7 Days Active diazePAM 10 mg oral tablet (2 sources) Benzodiazepine diazePAM 10 MG T MATT 1 TABLET BY MOUTH 60 MINUTES prior to procedure Oral for 1 Days Active Tylenol Extra Strength 500 MG (2 sources) take 1 tablet by charmaine th every six hours as needed Tylenol Extra Strength 500 MG 1 tablet as needed Orally every 6 hrs Active Completed/Discontinued Medications Medication Drug Class(es) Dates Sig (Normalized) Sig (Original) acetaminophen 325 mg / HYDROcodone bitartrate 5 mg oral tablet (2 sources) Opioid Agonist take 1 tablet by mouth every eight hours as needed HYDROcodone-acetam inophen (NORCO) 5-325 mg per tablet Take 1 tablet by mouth every 8 hours as needed. 0 Active Comment on above: Take 1 tablet by charmaine th every 8 hours as needed. amylase [id number] unt / lipase 46563 unt / protease 20723 unt delayed release oral capsule (2 sources) lipase-protease- am ylase (CREON) 24,000-76,000 -120,000 unit cpDR Take by mouth three times daily with meals. 0 Active Comment on above: Take by mouth three times daily with meals. calcium carb/vit d3/minerals(CALTRAT E 600+D PLUS MINERALS 600 MG (1,500 MG)-400 UNIT CHEWABLE TAB) (2 sources) Start: 09-13-2009 calcium carb/vit d3/minerals(CALTRA TE 600+D PLUS MINERALS 600 MG (1,500 MG)-400 UNIT CHEWABLE TAB) Take one(1) tablet daily. 0 09/13/2009 Active Comment on above: Take one(1) tablet d aily. CLOTRIMAZOLE/BETAME THASONE DIP (CLOTRIMAZOLE-BETAM ETHASONE TOPICAL) (2 sources) CLOTRIMAZOLE/BET AM ETHASONE DIP (CLOTRIMAZOLE-BETA METHASONE TOPICAL) Apply to affected area twice daily. 0 Active Comment on above: Apply to affected ar ea twice daily. estrogens, conjugated (assisted) 0.625 mg/ml vaginal cream (2 sources) Estrogen conjugated estrogens (PREMARIN) vaginal cream Indications: Every other day Use vaginally once daily. Indications: Every other day 0 Active Comment on above: Use vaginally once d aily. Indications: Every other day hyoscyamine sulfate 0.125 mg sublingual tablet (2 sources) take 0.125 mg under the tongue at bedtime hyoscyamine sublingual 0.125 mg Subl Dissolve 0.125 mg under the tongue before meals and at bedtime. 0 Active Comment on above: Dissolve 0.125 mg un maya the tongue before meals and at bedtime. ibuprofen 200 mg oral tablet (2 sources) Nonsteroidal Anti-inflammatory Drug take 1 tablet by mouth every six hours as needed ibuprofen (MOTRIN) 200 mg tablet Take 200 mg by mouth every 6 hours as needed. 0 Active Comment on above: Take 200 mg by mouth every 6 hours as needed. omeprazole 20 mg delayed release oral capsule (2 sources) Proton Pump Inhibitor take 1 capsule by mouth once daily omeprazole (PRILOSEC) 20 mg capsule Take 20 mg by mouth once daily. 0 Active Comment on above: Take 20 mg by mouth once daily. predniSONE 10 mg oral tablet (2 sources) Start: 04-07-2018 take 4 tablets by mouth once daily, then take 0.5 tablet by mouth every week predniSONE (DELTASONE) 10 mg tablet TAKE 4 TABLETS BY MOUTH DAILY FOR 2 WEEKS, then decrease by ONE-HALF TABLET EVERY WEEK 1 04/07/2018 Active Comment on above: TAKE 4 TABLETS BY MO UTH DAILY FOR 2 WEEKS, then decrease by ONE-HALF TABLET EVERY WEEK promethazine hydrochloride 25 mg oral tablet (2 sources) Phenothiazine take 1 tablet by mouth every six hours as needed promethazine (PHENERGAN) 25 mg tablet Take 25 mg by mouth every 6 hours as needed. 0 Active Comment on above: Take 25 mg by mouth every 6 hours as needed. rosuvastatin calcium 10 mg oral tablet (2 sources) HMG-CoA Reductase Inhibitor take 1 tablet by mouth once daily rosuvastatin (CRESTOR) 10 mg ORAL tablet Take 10 mg by mouth once daily. 0 Active Comment on above: Take 10 mg by mouth once daily. sucralfate 1000 mg oral tablet (2 sources) Aluminum Complex Start: 11-13-2011 take 1 tablet by mouth every six hours as needed sucralfate 1 gram ORAL tablet Take 1 g by mouth four times daily as needed. 0 11/13/2011 Active Comment on above: Take 1 g by mouth fo ur times daily as needed. tiZANidine 4 mg oral tablet (4 sources) Central alpha-2 Adrenergic Agonist Start: 04-28-2018 take 1 tablet by mouth once daily at bedtime tiZANidine (ZANAFLEX) 4 mg tablet TAKE 1 TABLET BY MOUTH EVERY EVENING AT BEDTIME 5 04/28/2018 Active take 1 tablet by mouth every eig ht hours tiZANidine HCl 4 MG 1 tablet as needed Orally every 8 hrs Active Comment on above: TAKE 1 TABLET BY CHARMAINE TH EVERY EVENING AT BEDTIME traMADol hydrochloride 50 mg oral tablet (2 sources) Opioid Agonist take 1 tablet by mouth every six hours as needed traMADol (ULTRAM) 50 mg tablet Take 50 mg by mouth every 6 hours as needed. 0 Active Comment on above: Take 50 mg by mouth every 6 hours as needed. Problems Active Problems Problem Classification Problem Date Documented Date Episodic/Chronic Abdominal pain (10 sources) Abdominal pain; Translations: [Unspecified abdominal pain] Onset: 09-21-19 10 09-20-2009 Episodic Acute bronchitis (2 sources) Acute bronchitis; Translations: [Acute bronchitis] Episodic Congestive heart failure; nonhypertensive (1 source) Unspecified diastolic (congestive) heart failure; Translations: [UNSPECIFIED DIASTOLIC HEART FAILURE] Onset: 02-24-20 22 Chronic Disorders of lipid metabolism (1 source) Pure hypercholesterolemia, unspecified; Translations: [PURE HYPERCHOLESTEROLEMIA UNSPEC] Onset: 06-19-19 23 Chronic Diverticulosis and diverticulitis (2 sources) Diverticular disease of colon; Translations: [Diverticulosis of colon] Chronic Esophageal disorders (1 source) Gastro-esophageal reflux disease without esophagitis; Translations: [GERD WITHOUT ESOPHAGITIS] Onset: 06-19-19 23 Chronic Hypertension with complications and secondary hypertension (1 source) Hypertensive heart disease with heart failure; Translations: [HTN HEART DISEASE W/HEART FAIL] Onset: 02-24-20 Chronic Influenza (1 source) Influenza due to other identified influenza virus with other respiratory manifestations; Translations: [FLU D/T OTH ID FLU VIR OTH RSP MANF] Onset: 06-19-19 Episodic Nausea and vomiting (1 source) Nausea with vomiting, unspecified; Translations: [NAUSEA WITH VOMITING UNSPECIFIED] Onset: 06-19-19 Episodic Other aftercare (1 source) Other care home (current) drug therapy; Translations: [OTH NURSING HOME CURRENT DRUG THERAPY] Onset: 06-19-19 Episodic Other connective tissue disease (3 sources) Fibromyalgia; Translations: [Fibromyalgia] Onset: 09-21-19 10 09-20-2009 Episodic Other gastrointestinal disorders (1 source) Irritable bowel syndrome without diarrhea; Translations: [IRRITABLE BOWEL SYND W/O DIARRHEA] Onset: 06-19-19 Chronic Other gastrointestinal disorders (2 sources) Diarrhea; Translations: [Diarrhea] Episodic Other inflammatory condition of skin (1 source) Psoriasis, unspecified; Translations: [PSORIASIS UNSPECIFIED] Onset: 06-19-19 Chronic Other nutritional; endocrine; and metabolic disorders (1 source) Disorder of urea cycle metabolism, unspecified; Translations: [DISORDER UREA CYCLE METABOLISM UNS] Onset: 02-13-20 Chronic Pancreatic disorders (not diabetes) (2 sources) Idiopathic chronic pancreatitis; Translations: [Other chronic pancreatitis] Onset: 05-13-20 18 05-13-2018 Chronic Residual codes; unclassified (1 source) Acquired absence of other specified parts of digestive tract; Translations: [ACQ ABSENCE OT PART DIGESTV TRACT] Onset: 06-19-19 Episodic Residual codes; unclassified (1 source) Acquired absence of both cervix and uterus; Translations: [ACQUIRED ABSENCE BOTH CERVIX AND UTERUS] Onset: 06-19-19 Episodic Spondylosis; intervertebral disc disorders; other back problems (1 source) Other spondylosis with radiculopathy, cervical region; Translations: [OTH SPONDYLS RADICULOPATHY CERV RGN] Onset: 08-15-19 Chronic Spondylosis; intervertebral disc disorders; other back problems (7 sources) Neck pain; Translations: [Cervicalgia] Onset: 05-20-20 Episodic Unclassified (2 sources) COUGH, UNSPECIFIED; Translations: [COUGH, UNSPECIFIED] Onset: 06-19-19 23 Unclassified (1 source) CONTACT W/AND (SUSP) EXPOS COVID-19; Translations: [CONTACT W/AND (SUSP) EXPOS COVID-19] Onset: 02-13-20 22 Viral infection (1 source) COVID-19; Translations: [COVID-19] Onset: 09-03-19 22 Past or Other Problems Problem Classification Problem Date Documented Da te Episodic/Chronic Cardiac dysrhythmias (1 source) Bradycardia, unspecified; Translations: [BRADYCARDIA UNSPECIFIED] Onset: 02-12-2022 Episodic Conditions associated with dizziness or vertigo (4 sources) Dizziness and giddiness; Translations: [DIZZINESS AND GIDDINESS] Onset: 07-11-2021 Episodic Deficiency and other anemia (1 source) Anemia, unspecified; Translations: [ANEMIA UNSPECIFIED] Onset: 02-23-2022 Episodic Fluid and electrolyte disorders (4 sources) Dehydration; Translations: [DEHYDRATION] Onset: 02-06-2022 Episodic Malaise and fatigue (4 sources) Weakness; Translations: [WEAKNESS] Onset: 02-18-2022 Episodic Nonspecific chest pain (4 sources) Chest pain, unspecified; Translations: [CHEST PAIN UNSPECIFIED] Onset: 03-24-2022 Episodic Other circulatory disease (1 source) Hypotension, unspecified; Translations: [HYPOTENSION UNSPECIFIED] Onset: 02-12-2022 Episodic Other connective tissue disease (1 source) Fibromyalgia; Translations: [Fibromyalgia] Onset: 09-20-2009 Episodic Other gastrointestinal disorders (1 source) Diarrhea, unspecified; Translations: [DIARRHEA UNSPECIFIED] Onset: 02-12-2022 Episodic Other lower respiratory disease (1 source) Dyspnea, unspecified; Translations: [DYSPNEA UNSPECIFIED] Onset: 02-12-2022 Episodic Other lower respiratory disease (1 source) Shortness of breath; Translations: [SHORTNESS OF BREATH] Onset: 09-02-2021 Episodic Other screening for suspected conditions (not mental disorders or infectious disease) (5 sources) Encounter for screening mammogram for malignant neoplasm of breast; Translations: [Abnormal result of other cardiovascular function study] Onset: 03-26-2022 Episodic Residual codes; unclassified (1 source) Family history of malignant neoplasm of breast; Translations: [FAMILY HX MALIG NEOPLASM OF BREAST] Onset: 03-28-2022 Episodic Unclassified (1 source) COUGH, UNSPECIFIED; Translations: [COUGH, UNSPECIFIED] Onset: 06-17-2022 Results Test Name Value Interpretation Reference Range Facility AMYLASEon 07-01-2022 Amylase [Catalytic activity/Vol] 117 U/L Critically high 25-115 [facility] Comment on above: Performed By: #### T SH, T7, ALIYAH, LIPA, CMP ####[facility] [address] [place] [address]Dr. Lawrence Wayne CBC AUTO DIFFon 07-01-2022 BASO # 0.1 103/ul Normal 0.0-0.1 [facility] Comment on above: Performed By: #### C BC ####[facility] [address] [place], [place] [address]Dr. Lawrence Wayne Basophils/100 WBC (Bld) 0.6 % Normal 0.2-2.0 [facility] Comment on above: Performed By: #### C BC ####[facility] [address] [place], [place] [address]Dr. Lawrence Wayne EO # 0.1 103/ul Normal 0.0-0.7 [facility] Comment on above: Performed By: #### C BC ####[facility] [address] [place], [place] [address]Dr. Lawrence Wayne Eosinophils/100 WBC (Bld) 0.7 % Critically low 0.9-7.0 [facility] Comment on above: Performed By: #### C BC ####[facility] [address] [place], [place] [address]Dr. Lawrence Wayne Erythrocyte distribution width (RBC) [Ratio] 13.6 % Normal 11.0-15.0 [facility] Comment on above: Performed By: #### C BC ####[facility] [address] [place], [place] [address]Dr. Lawrence Wyane Hematocrit (Bld) [Volume fraction] 45.6 % Normal 36.0-48.0 [facility] Comment on above: Performed By: #### C BC ####[facility] [address] [place] [address]Dr. Laraantonio Wayne Hemoglobin (Bld) [Mass/Vol] 15.4 g/dL Normal 12.0-16.0 [facility] Comment on above: Performed By: #### C BC ####[facility] [address] [place] [address]Dr. Lawrence Wayne IG # 0.03 10e3/ul Normal 0.00-0.03 [facility] Comment on above: Performed By: #### C BC ####[facility] [address] [place], [place] [address]Dr. Lawrence Tone IG % 0.4 % Normal 0.0-0.5 [facility] Comment on above: Performed By: #### C BC ####[facility] [address] [place], [place] [address]Dr. Lawrence Wayne LYMPH # 2.8 103/ul Normal 1.2-3.8 [facility] Comment on above: Performed By: #### C BC ####[facility] [address] [place], [place] [address]Dr. Laraantonio Wayne Lymphocytes/100 WBC (Bld) 33.5 % Normal 20.5-60.0 [facility] Comment on above: Performed By: #### C BC ####[facility] [address] [place], [place] [address]Dr. Laraantonio Wayne MANUAL DIFF REQ NO Normal [facility] Comment on above: Performed By: #### C BC ####[facility] [address] [place], [place] [address]Dr. Lawrence Tone MCH (RBC) [Entitic mass] 30.1 pg Normal 26.7-34.0 [facility] Comment on above: Performed By: #### C BC ####[facility] [address] [place], [place] [address]DrKim Wayne MCHC (RBC) [Mass/Vol] 33.8 g/dL Normal 29.9-35.2 [facility] Comment on above: Performed By: #### C BC ####[facility] [address] [place], [place] [address]Dr. Lawrence Wayne MCV (RBC) [Entitic vol] 89.2 fL Normal 81.0-99.0 [facility] Comment on above: Performed By: #### C BC ####[facility] [address] [place] [address]Dr. Lawrence Wayne MONO # 0.8 103/ul Normal 0.3-0.8 [facility] Comment on above: Performed By: #### C BC ####[facility] [address] [place], [place] [address]Dr. Lawrence Wayne Monocytes/100 WBC (Bld) 9.3 % Normal 1.7-12.0 [facility] Comment on above: Performed By: #### C BC ####[facility] [address] [place], [place] [address]Dr. Lawrence Wayne NEUT # 4.6 103/ul Normal 1.4-6.5 [facility] Comment on above: Performed By: #### C BC ####[facility] [address] [place], [place] [address]Dr. Lawrence Wayne Neutrophils/100 WBC (Bld) 55.5 % Normal 43.0-75.0 [facility] Comment on above: Performed By: #### C BC ####[facility] [address] [place], [place] [address]Dr. Lawrence Wayne Platelet mean volume (Bld) [Entitic vol] 8.6 fL Critically low 9.5-13.5 [facility] Comment on above: Performed By: #### C BC ####[facility] [address] [place], [place] [address]Dr. Lawrence Tone PLT 380 103/ul Normal 150-450 [facility] Comment on above: Performed By: #### C BC ####[facility] [address] [place], [place] [address]Dr. Lawrence Tone RBC 5.11 106/ul Normal 4.20-5.40 [facility] Comment on above: Performed By: #### C BC ####[facility] [address] [place], [place] [address]Dr. Lawrence Wayne WBC 8.3 103/ul Normal 4.0-11.0 [facility] Comment on above: Performed By: #### C BC ####[facility] [address] [place] [address]Dr. Lawrence Wayne FREE THYROXINE INDEX T7on FTI 3.28 Normal 1.30-4.50 [facility] Comment on above: Performed By: #### T SH, T7, ALIYAH, LIPA, CMP ####[facility] [address] [place], [place] [address]Dr. Lawrence Wayne T3U 36.0 % Normal 30.0-39.0 [facility] Comment on above: Performed By: #### T SH, T7, ALIYAH, LIPA, CMP ####[facility] [address] [place], [place] [address]Dr. Lawrence Wayne T4 [Mass/Vol] 9.10 ug/dL Normal 4.80-13.90 [facility] Comment on above: Performed By: #### T SH, T7, ALIYAH, LIPA, CMP ####[facility] [address] [place], [place] [address]Dr. Lawrence Wayne LIPASEon 07-01-2022 Lipase [Catalytic activity/Vol] 125.0 U/L Normal 73.0-393.0 [facility] Comment on above: Performed By: #### T SH, T7, ALIYAH, LIPA, CMP ####[facility] [address] [place], [place] [address]Dr. Lawrence Wayne PROF 14(COMP METB)on 023 Albumin [Mass/Vol] 3.8 g/dL Normal 3.4-5.0 [facility] Comment on above: Performed By: #### T SH, T7, ALIYAH, LIPA, CMP ####[facility] [id number] [place], [place] [address]Dr. Lawrence Wayne Albumin/Globulin [Mass ratio] 1.1 {ratio} Normal [facility] Comment on above: Performed By: #### T SH, T7, ALIYAH, LIPA, CMP ####[facility] [address] [place] [address]Dr. Lawrence Wayne ALP [Catalytic activity/Vol] 104 U/L Normal 46-116 [facility] Comment on above: Performed By: #### T SH, T7, ALIYAH, LIPA, CMP ####[facility] [address] [place] [address]Dr. Lawrence Wayne ALT [Catalytic activity/Vol] 36 U/L Normal 14-59 [facility] Comment on above: Performed By: #### T SH, T7, ALIYAH, LIPA, CMP ####[facility] [address] [place], [place] [address]Dr. Lawrence Wayne Anion gap [Moles/Vol] 11.7 mmol/L Normal [facility] Comment on above: Performed By: #### T SH, T7, ALIYAH, LIPA, CMP ####[facility] [id number] [place], [place] [address]Dr. Lawrence Wayne AST [Catalytic activity/Vol] 22 U/L Normal 15-37 [facility] Comment on above: Performed By: #### T SH, T7, ALIYAH, LIPA, CMP ####[facility] [address] [place], [place] [address]Dr. Lawrence Wayne Bilirubin [Mass/Vol] 0.5 mg/dL Normal 0.2-1.0 [facility] Comment on above: Performed By: #### T SH, T7, ALIYAH, LIPA, CMP ####[facility] [address] [place], [place] [address]Dr. Lawrence Wayne Calcium [Mass/Vol] 9.8 mg/dL Normal 8.5-10.1 [facility] Comment on above: Performed By: #### T SH, T7, ALIYAH, LIPA, CMP ####[facility] [address] [place], [place] [address]Dr. Lawrence Wayne Chloride [Moles/Vol] 102 mmol/L Normal 98-107 [facility] Comment on above: Performed By: #### T SH, T7, ALIYAH, LIPA, CMP ####[facility] [address] [place], [place] [address]Dr. Yilan Wayne CO2 [Moles/Vol] 29.3 mmol/L Normal 21.0-32.0 [facility] Comment on above: Performed By: #### T SH, T7, ALIYAH, LIPA, CMP ####[facility] [address] [place] [address]Dr. Lawrence Wayne Creatinine [Mass/Vol] 0.88 mg/dL Normal 0.55-1.02 [facility] Comment on above: Performed By: #### T SH, T7, ALIYAH, LIPA, CMP ####[facility] [address] [place], [place] [address]Dr. Lawrence Wayne EGFR-AF ECUADOREAN >60 Normal >=60 [facility] Comment on above: Performed By: #### T SH, T7, ALIYAH, LIPA, CMP ####[facility] [address] [place], [place] [address]Dr. Lawrence Wayne EGFR-NON AF ECUADOREAN >60 Normal >=60 [facility] Comment on above: Performed By: #### T SH, T7, ALIYAH, LIPA, CMP ####[facility] [address] [place], [place] [address]Dr. Lawrence Wayne Globulin (S) [Mass/Vol] 3.5 g/dL Normal [facility] Comment on above: Performed By: #### T SH, T7, ALIYAH, LIPA, CMP ####[facility] [address] [place], [place] [address]Dr. Lawrence Wayne Glucose [Mass/Vol] 98 mg/dL Normal 74-106 [facility] Comment on above: Performed By: #### T SH, T7, ALIYAH, LIPA, CMP ####[facility] [address] [place], [place] [address]Dr. Lawrence Wayne Potassium [Moles/Vol] 3.9 mmol/L Normal 3.5-5.1 [facility] Comment on above: Performed By: #### T SH, T7, ALIYAH, LIPA, CMP ####[facility] [address] [place], [place] [address]Dr. Lawrence Wayne Protein [Mass/Vol] 7.3 g/dL Normal 6.4-8.2 [facility] Comment on above: Performed By: #### T SH, T7, ALIYAH, LIPA, CMP ####[facility] [address] [place] [address]Dr. Lawrence Wayne Sodium [Moles/Vol] 139 mmol/L Normal 136-145 [facility] Comment on above: Performed By: #### T SH, T7, ALIYAH, LIPA, CMP ####[facility] [address] [place] [address]Dr. Lawrence Wayne Urea nitrogen [Mass/Vol] 11.0 mg/dL Normal 7.0-18.0 [facility] Comment on above: Performed By: #### T SH, T7, ALIYAH, LIPA, CMP ####[facility] [address] [place] [address]Dr. Lawrence Wayne Urea nitrogen/Creatini ne [Mass ratio] 12.5 mg/mg Normal [facility] Comment on above: Performed By: #### T SH, T7, ALIYAH, LIPA, CMP ####[facility] [address] [address]Dr. Lawrence Wayne TSHon 07-01-2022 TSH 1.744 uIU/mL Normal 0.358-3.74 0 [facility] Comment on above: Performed By: #### T SH, T7, ALIYAH, LIPA, CMP ####[facility] [address] [place] [address]Dr. Lawrence Wayne CBC AUTO DIFFon 06-17-2022 BASO # 0.0 103/ul Normal 0.0-0.1 [facility] Comment on above: Performed By: #### A MY, CMP, LIPA #### [facility] [address] [address] [address] Lawrence Wayne Basophils/100 WBC (Bld) 0.4 % Normal 0.2-2.0 [facility] Comment on above: Performed By: #### A MY, CMP, LIPA #### [facility] [address] [address] [address] Lawrence Wayne EO # 0.0 103/ul Normal 0.0-0.7 [facility] Comment on above: Performed By: #### A MY, CMP, LIPA #### [facility] [address] [place] [address] Dr. Lawrence Wayne Eosinophils/100 WBC (Bld) 0.8 % Critically low 0.9-7.0 [facility] Comment on above: Performed By: #### A MY, CMP, LIPA #### [facility] [address] [place] [address] Dr. Lawrence Wayne Erythrocyte distribution width (RBC) [Ratio] 13.2 % Normal 11.0-15.0 [facility] Comment on above: Performed By: #### A MY, CMP, LIPA #### [facility] [address] [place] [address] Dr. Lawrence Wayne Hematocrit (Bld) [Volume fraction] 43.1 % Normal 36.0-48.0 [facility] Comment on above: Performed By: #### A MY, CMP, LIPA #### [facility] [address] [place] [address] Dr. Lawrence Wayne Hemoglobin (Bld) [Mass/Vol] 15.1 g/dL Normal 12.0-16.0 [facility] Comment on above: Performed By: #### A MY, CMP, LIPA #### [facility] [address] [place] [address] Dr. Lawrence Wayne IG # 0.03 10e3/ul Normal 0.00-0.03 [facility] Comment on above: Performed By: #### A MY, CMP, LIPA #### [facility] [address] [place] [address] Dr. Lawrence Wayne IG % 0.6 % Critically high 0.0-0.5 [facility] Comment on above: Performed By: #### A MY, CMP, LIPA #### [facility] [address] [place] [address] Dr. Lawrence Wayne LYMPH # 1.1 103/ul Critically low 1.2-3.8 [facility] Comment on above: Performed By: #### A MY, CMP, LIPA #### [facility] [address] [place] [address] Dr. Lawrence Wayne Lymphocytes/100 WBC (Bld) 22.0 % Normal 20.5-60.0 [facility] Comment on above: Performed By: #### A MY, CMP, LIPA #### [facility] [address] [place] [address] Dr. Lawrence Wayne MANUAL DIFF REQ NO Normal [facility] Comment on above: Performed By: #### A MY, CMP, LIPA #### [facility] [address] [place] [address] Dr. Lawrence Wayne MCH (RBC) [Entitic mass] 30.3 pg Normal 26.7-34.0 [facility] Comment on above: Performed By: #### A MY, CMP, LIPA #### [facility] [address] [place] [address] Dr. Lawrence Wayne MCHC (RBC) [Mass/Vol] 35.0 g/dL Normal 29.9-35.2 [facility] Comment on above: Performed By: #### A MY, CMP, LIPA #### [facility] [address] [place] [address] Dr. Lawrence Wayne MCV (RBC) [Entitic vol] 86.4 fL Normal 81.0-99.0 [facility] Comment on above: Performed By: #### A MY, CMP, LIPA #### [facility] [address] [place] [address] Dr. Lawrence Wayne MONO # 0.7 103/ul Normal 0.3-0.8 [facility] Comment on above: Performed By: #### A MY, CMP, LIPA #### [facility] [address] [place] [address] Dr. Lawrence Wayne Monocytes/100 WBC (Bld) 13.6 % Critically high 1.7-12.0 [facility] Comment on above: Performed By: #### A MY, CMP, LIPA #### [facility] [address] [place] [address] Dr. Lawrence Wayne NEUT # 3.2 103/ul Normal 1.4-6.5 [facility] Comment on above: Performed By: #### A MY CMP, LIPA #### [facility] [address] [place] [address] Dr. Lawrence Wayne Neutrophils/100 WBC (Bld) 62.6 % Normal 43.0-75.0 [facility] Comment on above: Performed By: #### A MY CMP, LIPA #### [facility] [address] [place] [address] Dr. Lawrence Wayne Platelet mean volume (Bld) [Entitic vol] 9.0 fL Critically low 9.5-13.5 [facility] Comment on above: Performed By: #### A MY CMP, LIPA #### [facility] [address] [place] [address] Dr. Lawrence Wayne PLT 257 103/ul Normal 150-450 [facility] Comment on above: Performed By: #### A GARTH CMP, LIPA #### [facility] [address] [place] [address] Dr. Lawrence Wayne RBC 4.99 106/ul Normal 4.20-5.40 [facility] Comment on above: Performed By: #### A GARTH CMP, LIPA #### [facility] [address] [place] [address] Dr. Lawrence Wayne WBC 5.1 103/ul Normal 4.0-11.0 [facility] Comment on above: Performed By: #### A GARTH CMP, LIPA #### [facility] [address] [place] [address] Dr. Lawrence Wayne INFLUENZA A AND B AGon 06-17 [facility] SEE BELOW Normal [facility] Comment on above: Result Comment: Nega tive for Flu B protein antigen. Infection due to Flu B cannot be ruled out. Flu B antigen in the sample may be below the detection limit of the test. Performed By: #### A MY, CMP, LIPA #### [facility] [address] [place] [address] Dr. Lawrence Wayne INFLUENZA A AG Positive Abnormal NEGATIVE SEE COMMENT [facility] Comment on above: Performed By: #### A MY, CMP, LIPA #### [facility] [address] [place] [address] Dr. Lawrence Wayne INFLUENZA B AG Negative Normal NEGATIVE SEE COMMENT [facility] Comment on above: Performed By: #### A MY, CMP, LIPA #### [facility] [address] [place] [address] Dr. Lawrence Wayne PROF 14(COMP METB)on 023 Albumin [Mass/Vol] 3.4 g/dL Normal 3.4-5.0 [facility] Comment on above: Performed By: #### A MY, CMP, LIPA #### [facility] [address] [place] [address] Dr. Lawrence Wayne Albumin/Globulin [Mass ratio] 0.9 {ratio} Normal [facility] Comment on above: Performed By: #### A MY, CMP, LIPA #### [facility] [address] [place] [address] Dr. Lawrence Wayne ALP [Catalytic activity/Vol] 94 U/L Normal 46-116 [facility] Comment on above: Performed By: #### A MY, CMP, LIPA #### [facility] [address] [place] [address] Dr. Lawrence Wayne ALT [Catalytic activity/Vol] 36 U/L Normal 14-59 [facility] Comment on above: Performed By: #### A MY, CMP, LIPA #### [facility] [address] [place] [address] Dr. Lawrence Wayne Anion gap [Moles/Vol] 18.9 mmol/L Normal [facility] Comment on above: Performed By: #### A MY, CMP, LIPA #### [facility] [address] [place] [address] Dr. Lawrence Wayne AST [Catalytic activity/Vol] 32 U/L Normal 15-37 [facility] Comment on above: Performed By: #### A MY, CMP, LIPA #### [facility] [address] [place] [address] Dr. Lawrence Wayne Bilirubin [Mass/Vol] 0.4 mg/dL Normal 0.2-1.0 [facility] Comment on above: Performed By: #### A MY, CMP, LIPA #### [facility] [address] [address] [address] Lawrence Wayne Calcium [Mass/Vol] 9.1 mg/dL Normal 8.5-10.1 [facility] Comment on above: Performed By: #### A MY, CMP, LIPA #### [facility] [address] [address] [address] Lawrence Wayne Chloride [Moles/Vol] 100 mmol/L Normal 98-107 [facility] Comment on above: Performed By: #### A MY, CMP, LIPA #### [facility] [address] [place] [address] Dr. Lawrence Wayne CO2 [Moles/Vol] 19.7 mmol/L Critically low 21.0-32.0 [facility] Comment on above: Performed By: #### A MY, CMP, LIPA #### [facility] [address] [place] [address] Dr. Lawrence Wayne Creatinine [Mass/Vol] 1.13 mg/dL Critically high 0.55-1.02 [facility] Comment on above: Performed By: #### A MY, CMP, LIPA #### [facility] [address] [place] [address] Dr. Lawrence Wayne EGFR-AF ECUADOREAN 58 mL/min/1.73m2 Critically low >=60 [facility] Comment on above: Performed By: #### A MY, CMP, LIPA #### [facility] [address] [place] [address] Dr. Lawrence Wayne EGFR-NON AF ECUADOREAN 48 mL/min/1.73m2 Critically low >=60 [facility] Comment on above: Performed By: #### A MY, CMP, LIPA #### [facility] [address] [place] [address] Dr. Lawrence Wayne Globulin (S) [Mass/Vol] 3.9 g/dL Normal [facility] Comment on above: Performed By: #### A MY, CMP, LIPA #### [facility] [address] [address] [address] Lawrence Wayne Glucose [Mass/Vol] 105 mg/dL Normal 74-106 [facility] Comment on above: Performed By: #### A MY, CMP, LIPA #### [facility] [address] [address] [address] Lawrence Wayne Potassium [Moles/Vol] 3.6 mmol/L Normal 3.5-5.1 [facility] Comment on above: Performed By: #### A MY, CMP, LIPA #### [facility] [address] [address] [address] Lawrence Wayne Protein [Mass/Vol] 7.3 g/dL Normal 6.4-8.2 [facility] Comment on above: Performed By: #### A MY, CMP, LIPA #### [facility] [address] [address] [address] Lawrence Wayne Sodium [Moles/Vol] 135 mmol/L Critically low 136-145 [facility] Comment on above: Performed By: #### A MY, CMP, LIPA #### [facility] [address] [address] [address] Lawrence Wayne Urea nitrogen [Mass/Vol] 13.0 mg/dL Normal 7.0-18.0 [facility] Comment on above: Performed By: #### A MY, CMP, LIPA #### [facility] [address] [address] [address] Lawrence Wayne Urea nitrogen/Creatini ne [Mass ratio] 11.5 mg/mg Normal [facility] Comment on above: Performed By: #### A MY, CMP, LIPA #### [facility] [address] [address] [address] Lawrence Wayne MRI CSPINE WO CONon 05-20-20 MRI CSPINE WO CON EXAMINATION: MRI CSP INE WO CON HISTORY: Cervical radiculopathy ; chronic cervical and right arm pain COMPARISON: XR C-spine 04/04/2020 TECHNIQUE: A variety of imaging planes and parameters were utilized for visualization of suspected pathology. FINDINGS: CRANIOCERVICAL AREA: Normal foramen magnum with no Chiari malformation. PARASPINAL AREA: Normal with no visible mass. BONES: Mild degenerative endplate changes C4, C5, C6. No fracture, listhesis, or bone lesion. CORD: Normal caliber and signal intensity. CERVICAL DISC LEVELS: C2-C3: Early degenerative disc disease is present without focal protrusion or neural impingement. C3-C4: Moderate central canal and bilateral foramen narrowing. Mild diffuse disc bulging and mild degenerative facet arthropathy. C4-C5: Moderate central canal and mild bilateral foramen narrowing. Mild diffuse disc bulging without significant facet arthropathy. C5-C6: Moderate marked central canal and bilateral foramen narrowing. Moderate diffuse disc bulging with mild disc height reduction. Mild degenerative facet arthropathy. C6-C7: Mild central canal and mild-moderate bilateral foramen narrowing. Mild diffuse disc bulging with tiny posterior central disc protrusion. Mild degenerative facet arthropathy. C7-T1:. No significant disc/facet abnormality, spinal stenosis, or foraminal stenosis. IMPRESSION: 1. Several levels demonstrating moderate or greater narrowing within the cervical canal and neural foramen secondary to moderate diffuse disc bulging and mild degenerative facet arthropathy. Electronically authenticated by: TYRELL MOREJON Date: 2022-05-20 10:26 Normal [facility] AMYLASEon 05-07-2022 Amylase [Catalytic activity/Vol] 81 U/L Normal 25-115 [facility] Comment on above: Performed By: #### A MY, CMP, LIPA #### [facility] [address] [address] [address] Lawrence Wayne CBC AUTO DIFFon 05-07-2022 BASO # 0.0 103/ul Normal 0.0-0.1 [facility] Comment on above: Performed By: #### A MY, CMP, LIPA #### [facility] [address] [address] [address] Lawrence Wayne Basophils/100 WBC (Bld) 0.8 % Normal 0.2-2.0 [facility] Comment on above: Performed By: #### A MY, CMP, LIPA #### [facility] [address] [address] [address] Lawrence Wayne EO # 0.1 103/ul Normal 0.0-0.7 [facility] Comment on above: Performed By: #### A MY, CMP, LIPA #### [facility] [address] [address] [address] Lawrence Wayne Eosinophils/100 WBC (Bld) 1.5 % Normal 0.9-7.0 [facility] Comment on above: Performed By: #### A MY, CMP, LIPA #### [facility] [address] [place] [address] Dr. Lawrence Wayne Erythrocyte distribution width (RBC) [Ratio] 12.7 % Normal 11.0-15.0 [facility] Comment on above: Performed By: #### A MY, CMP, LIPA #### [facility] [address] [place] [address] Dr. Lawrence Wayne Hematocrit (Bld) [Volume fraction] 40.5 % Normal 36.0-48.0 [facility] Comment on above: Performed By: #### A MY, CMP, LIPA #### [facility] [address] [place] [address] Dr. Lawrence Wayne Hemoglobin (Bld) [Mass/Vol] 13.8 g/dL Normal 12.0-16.0 [facility] Comment on above: Performed By: #### A MY, CMP, LIPA #### [facility] [address] [place] [address] Dr. Lawrence Wayne IG # 0.01 10e3/ul Normal 0.00-0.03 [facility] Comment on above: Performed By: #### A MY, CMP, LIPA #### [facility] [address] [place] [address] Dr. Lawrence Wayne IG % 0.2 % Normal 0.0-0.5 [facility] Comment on above: Performed By: #### A MY, CMP, LIPA #### [facility] [address] [place] [address] Dr. Lawrence Wayne LYMPH # 1.7 103/ul Normal 1.2-3.8 [facility] [place] Comment on above: Performed By: #### A MY, CMP, LIPA #### [facility] [place] [facility] [address] [place] [address] Dr. Lawrence Wayne Lymphocytes/100 WBC (Bld) 32.7 % Normal 20.5-60.0 [facility] [place] Comment on above: Performed By: #### A MY, CMP, LIPA #### [facility] [place] [facility] [address] [place] [address] Dr. Lawrence Wayne MANUAL DIFF REQ NO Normal [facility] [place] Comment on above: Performed By: #### A MY, CMP, LIPA #### [facility] [place] [facility] [address] [place] [address] Dr. Lawrence Wayne MCH (RBC) [Entitic mass] 30.5 pg Normal 26.7-34.0 [facility] [place] Comment on above: Performed By: #### A MY, CMP, LIPA #### [facility] [place] [facility] [address] [place] [address] Dr. Lawrence Wayne MCHC (RBC) [Mass/Vol] 34.1 g/dL Normal 29.9-35.2 [facility] [place] Comment on above: Performed By: #### A MY, CMP, LIPA #### [facility] [place] [facility] [address] [place] [address] Dr. Lawrence Wayne MCV (RBC) [Entitic vol] 89.4 fL Normal 81.0-99.0 [facility] [place] Comment on above: Performed By: #### A MY, CMP, LIPA #### [facility] [place] [facility] [address] [place] [address] Dr. Lawrence Wayne MONO # 0.6 103/ul Normal 0.3-0.8 [facility] [place] Comment on above: Performed By: #### A MY, CMP, LIPA #### [facility] [place] [facility] [address] [place] [address] Dr. Lawrence Wayne Monocytes/100 WBC (Bld) 10.5 % Normal 1.7-12.0 [facility] [place] Comment on above: Performed By: #### A MY, CMP, LIPA #### [facility] [place] [facility] [address] [place] [address] Dr. Lawrence Wayne NEUT # 2.9 103/ul Normal 1.4-6.5 [facility] [place] Comment on above: Performed By: #### A MY, CMP, LIPA #### [facility] [place] [facility] [address] [place] [address] Dr. Lawrence Wayne Neutrophils/100 WBC (Bld) 54.3 % Normal 43.0-75.0 [facility] Comment on above: Performed By: #### A MY, CMP, LIPA #### [facility] [place] [facility] [address] [place] [address] Dr. Lawrence Wayne Platelet mean volume (Bld) [Entitic vol] 9.4 fL Critically low 9.5-13.5 [facility] Comment on above: Performed By: #### A MY, CMP, LIPA #### [facility] [place] [facility] [address] [place] [address] Dr. Lawrence Wayne PLT 292 103/ul Normal 150-450 [facility] Comment on above: Performed By: #### A MY, CMP, LIPA #### [facility] [place] [facility] [address] [place] [address] Dr. Lawrence Wayne RBC 4.53 106/ul Normal 4.20-5.40 [facility] [place] Comment on above: Performed By: #### A MY, CMP, LIPA #### [facility] [place] [facility] [address] [place] [address] Dr. Lawrence Wayne WBC 5.3 103/ul Normal 4.0-11.0 [facility] [place] Comment on above: Performed By: #### A MY, CMP, LIPA #### [facility] [place] [facility] [address] [place] [address] Dr. Lawrence Wayne LIPASEon 05-07-2022 Lipase [Catalytic activity/Vol] 86.0 U/L Normal 73.0-393.0 [facility] [place] Comment on above: Performed By: #### A MY, CMP, LIPA #### [facility] [place] [facility] [address] [place] [address] Dr. Lawrence Wayne PROF 14(COMP METB)on 022 Albumin [Mass/Vol] 3.7 g/dL Normal 3.4-5.0 [facility] Comment on above: Performed By: #### A MY, CMP, LIPA #### [facility] [place] [facility] [address] [address] [address] Lawrence Wayne Albumin/Globulin [Mass ratio] 1.1 {ratio} Normal [facility] Comment on above: Performed By: #### A MY, CMP, LIPA #### [facility] [place] [facility] [address] [address] [address] Lawrence Wayne ALP [Catalytic activity/Vol] 96 U/L Normal 46-116 [facility] [place] Comment on above: Performed By: #### A MY, CMP, LIPA #### [facility] [place] [facility] [address] [address] [address] Lawrence Wayne ALT [Catalytic activity/Vol] 24 U/L Normal 14-59 [facility] Comment on above: Performed By: #### A MY, CMP, LIPA #### [facility] [place] [facility] [address] [address] [address] Lawrence Wayne Anion gap [Moles/Vol] 8.3 mmol/L Normal [facility] Comment on above: Performed By: #### A MY, CMP, LIPA #### [facility] [place] [facility] [address] [address] [address] Lawrence Wayne AST [Catalytic activity/Vol] 19 U/L Normal 15-37 [facility] Comment on above: Performed By: #### A MY, CMP, LIPA #### [facility] [place] [facility] [address] [address] [address] Lawrence Wayne Bilirubin [Mass/Vol] 0.2 mg/dL Normal 0.2-1.0 [facility] Comment on above: Performed By: #### A MY, CMP, LIPA #### [facility] [place] [facility] [address] [address] [address] Lawrence Wayne Calcium [Mass/Vol] 9.1 mg/dL Normal 8.5-10.1 [facility] [place] Comment on above: Performed By: #### A MY, CMP, LIPA #### [facility] [place] [facility] [address] [address] [address] Lawrence Wayne Chloride [Moles/Vol] 103 mmol/L Normal 98-107 [facility] [place] Comment on above: Performed By: #### A MY, CMP, LIPA #### [facility] [place] [facility] [address] [address] [address] Lawrence Wayne CO2 [Moles/Vol] 30.6 mmol/L Normal 21.0-32.0 [facility] Comment on above: Performed By: #### A MY, CMP, LIPA #### [facility] [place] [facility] [address] [address] [address] Lawrence Wayne Creatinine [Mass/Vol] 0.88 mg/dL Normal 0.55-1.02 [facility] Comment on above: Performed By: #### A MY, CMP, LIPA #### [facility] [place] [facility] [address] [address] [address] Lawrence Wayne EGFR-AF ECUADOREAN >60 Normal >=60 [facility] Comment on above: Performed By: #### A MY, CMP, LIPA #### [facility] [place] [facility] [address] [address] [address] Lawrence Wayne EGFR-NON AF ECUADOREAN >60 Normal >=60 [facility] Comment on above: Performed By: #### A MY, CMP, LIPA #### [facility] [place] [facility] [address] [address] [address] Lawrence Wayne Globulin (S) [Mass/Vol] 3.4 g/dL Normal [facility] Comment on above: Performed By: #### A MY, CMP, LIPA #### [facility] [place] [facility] [address] [address] [address] Lawrence Wayne Glucose [Mass/Vol] 94 mg/dL Normal 74-106 [facility] [place] Comment on above: Performed By: #### A MY, CMP, LIPA #### [facility] [address] [address] [address] Lawrence Wayne Potassium [Moles/Vol] 3.9 mmol/L Normal 3.5-5.1 [facility] Comment on above: Performed By: #### A MY, CMP, LIPA #### [facility] [place] [facility] [address] [address] [address] Lawrence Wayne Protein [Mass/Vol] 7.1 g/dL Normal 6.4-8.2 [facility] Comment on above: Performed By: #### A MY, CMP, LIPA #### [facility] [place] [facility] [address] [address] [address] Lawrence Wayne Sodium [Moles/Vol] 138 mmol/L Normal 136-145 [facility] Comment on above: Performed By: #### A MY, CMP, LIPA #### [facility] [address] [address] [address] Lawrence Wayne Urea nitrogen [Mass/Vol] 10.0 mg/dL Normal 7.0-18.0 [facility] Comment on above: Performed By: #### A MY, CMP, LIPA #### [facility] [address] [place] [address] Dr. Lawrence Wayne Urea nitrogen/Creatini ne [Mass ratio] 11.4 mg/mg Normal [facility] Comment on above: Performed By: #### A MY, CMP, LIPA #### [facility] [address] [place] [address] Dr. Lawrence Wayne MG MAMM SCREEN 3D QING CADon 03-26-2022 MG MAMM SCREEN 3D QING CAD Patient: SKIP HONG Exam Date: 03/26/2022 : 1955 Gender:F Ordering : DR RADHA LYMAN . Admission #: [id number] Family : Order #: [id number] CLICK HERE TO VIEW EXAM RADIOLOGY REPORT PROCEDURE: MAMMOGRAM SCREENING 3D BILATERAL CAD COMPARISON: MG MAMM SCREEN QING W CAD, 07/21/2017. MG MAMM SCREEN QING W CAD, 06/26/2016. INDICATIONS: Screening mammography Calculator Name NCI Breast Cancer Risk Assessment Tool 5 Year Breast Cancer Risk 1.40% Lifetime Breast Cancer Risk 4.90% Personal Breast Cancer No Personal Ovarian Cancer No Treatments None Family Cancers Cousin-maternal with breast cancer at age 29. LOCATION: [facility] BREAST COMPOSITION: Heterogeneously dense,which may obscure small masses. FINDINGS: DIAGNOSTIC CATEGORY 2--BENIGN FINDING. NO CHANGE FROM COMPARISON. Scattered benign-appearing calcifications are present. Scattered benign-appearing lymph nodes are present. RIGHT BREAST: No significant suspicious finding. Stable surgical clips right axilla LEFT BREAST: No significant suspicious finding. RECOMMENDATIONS: ROUTINE MAMMOGRAM AND CLINICAL EVALUATION IN 12 MONTHS. PLEASE NOTE: A NORMAL MAMMOGRAM DOES NOT EXCLUDE THE POSSIBILITY OF BREAST CANCER. A CLINICALLY SUSPICIOUS PALPABLE LUMP SHOULD BE BIOPSIED. Dictated by: Mark Rasheed MD on 03/26/2022 at 09:51 Approved by: Mark Rasheed MD on 03/26/2022 at 09:53 Normal [facility] NM STRESS/REST MULTIon 03-24 NM STRESS/REST MULTI Patient: SKIP HONG Exam Date: 03/24/2022 : 1955 Gender:F Ordering : DR ANITHA RAMEY . Admission #: [id number] Family : Order #: [id number] CLICK HERE TO VIEW EXAM RADIOLOGY REPORT PROCEDURE: RADIONUCLIDE IMAGING STRESS/REST MULTI COMPARISON: NM STRESS/REST MULTI, 12/05/2020. NM STRESS/REST MULTI, 04/10/2015. INDICATIONS: Chest pain, abnormal holter monitor, palpitations TECHNIQUE: Exam Description: Rest/Stress one day protocol gated SPECT Rest Imagin.3 mCi Tc-99m Cardiolite IV on 03/24/2022 Stress Imaging 30.3 mCi Tc-99m Cardiolite IV on 03/24/2022 Exercise Protocol: Harshal Heart Rate (bpm): Rest: 66 Max: 142 PMHR: 92 Blood Pressure: Rest: 126/82 Max: 180/88 Exercise Time: Minutes: 4 Seconds: 34 Stage Reached: Stage: 2 Mets 7.0 Symptoms: Rest and peak stress ECG findings were normal and the exercise portion of the study was normal per attending physician Dr. Michel . For more details please see separate cardiac stress test report. FINDINGS: QUALITY OF STUDY: Excellent. PERFUSION DEFECT: None. LOCATION: N/A SIZE: N/A. SEVERITY: N/A. TYPE: N/A. WALL MOTION: Normal. LV SIZE: Normal. 45 mL. TID / TCD: None; 0.7 LVEF: Normal. Calculated EF 85%. SUMMARY: Myocardial perfusion imaging study is NORMAL. CONCLUSION: 1. Normal myocardial perfusion scan 2. Normal exercise test Dictated by: Mark Rasheed MD on 03/25/2022 at 07:03 Approved by: Mark Rasheed MD on 03/25/2022 at 07:15 [facility] T4, T3U, FTI LABCORPon 02-19 Free Thyroxine Index 2.3 Normal 1.2-4.9 [facility] Comment on above: Performed By: #### A MY, CMP, LIPA #### [facility] [address] [address] [address] Lawrence Wayne T3 Uptake 28 % Normal 24-39 [facility] Comment on above: Performed By: #### A MY, CMP, LIPA #### [facility] [address] [address] [address] Lawrence Wayne T4 [Mass/Vol] 8.3 ug/dL Normal 4.5-12.0 [facility] Comment on above: Performed By: #### A MY, CMP, LIPA #### [facility] [address] [place] [address] Dr. Lawrence Wayne BNPon 02-18-2022 Natriuretic peptide B (Bld) [Mass/Vol] 78.0 pg/mL Normal <=900.0 [facility] Comment on above: Performed By: #### A MY, CMP, LIPA #### [facility] [address] [address] [address] Lawrence Wayne CBC AUTO DIFFon 02-18-2022 BASO # 0.1 103/ul Normal 0.0-0.1 [facility] Comment on above: Performed By: #### C BC ####[facility] [address] [address]DrKim Wayne Basophils/100 WBC (Bld) 0.9 % Normal 0.2-2.0 [facility] Comment on above: Performed By: #### C BC ####[facility] [address] [address]DrKim Wayne EO # 0.1 103/ul Normal 0.0-0.7 [facility] Comment on above: Performed By: #### C BC ####[facility] [address] [address]DrKim Wayne Eosinophils/100 WBC (Bld) 1.1 % Normal 0.9-7.0 [facility] Comment on above: Performed By: #### C BC ####[facility] [address] [address]Dr. Lawrence Wayne Erythrocyte distribution width (RBC) [Ratio] 12.6 % Normal 11.0-15.0 [facility] Comment on above: Performed By: #### C BC ####[facility] [address] [place], [place] [address]Dr. Lawrence Wayne Hematocrit (Bld) [Volume fraction] 44.4 % Normal 36.0-48.0 [facility] Comment on above: Performed By: #### C BC ####[facility] [address] [place], [place] [address]Dr. Lawrence Wayne Hemoglobin (Bld) [Mass/Vol] 14.7 g/dL Normal 12.0-16.0 [facility] Comment on above: Performed By: #### C BC ####[facility] [address] [place], [place] [address]Dr. Lawrence Wayne IG # 0.02 10e3/ul Normal 0.00-0.03 [facility] Comment on above: Performed By: #### C BC ####[facility] [address] [place], [place] [address]Dr. Lawrence Wayne IG % 0.3 % Normal 0.0-0.5 [facility] Comment on above: Performed By: #### C BC ####[facility] [address] [place], [place] [address]Dr. Lawrence Wayne LYMPH # 1.8 103/ul Normal 1.2-3.8 [facility] Comment on above: Performed By: #### C BC ####[facility] [address] [place], [place] [address]Dr. Lawrence Wayne Lymphocytes/100 WBC (Bld) 26.1 % Normal 20.5-60.0 [facility] Comment on above: Performed By: #### C BC ####[facility] [address] [place], [place] [address]Dr. Lawrence Wayne MANUAL DIFF REQ NO Normal [facility] Comment on above: Performed By: #### C BC ####[facility] [address] [id number]. Lawrence Wayne MCH (RBC) [Entitic mass] 30.2 pg Normal 26.7-34.0 [facility] Comment on above: Performed By: #### C BC ####[facility] [address] [id number]. Lawrence Wayne MCHC (RBC) [Mass/Vol] 33.1 g/dL Normal 29.9-35.2 [facility] Comment on above: Performed By: #### C BC ####[facility] [address] [address]Dr. Lawrence Tone MCV (RBC) [Entitic vol] 91.4 fL Normal 81.0-99.0 [facility] Comment on above: Performed By: #### C BC ####[facility] [address] [place], [place] [address]Dr. Lawrence Wayne MONO # 0.8 103/ul Normal 0.3-0.8 [facility] Comment on above: Performed By: #### C BC ####[facility] [address] [address]Dr. Laraantonio Wayne Monocytes/100 WBC (Bld) 11.0 % Normal 1.7-12.0 [facility] Comment on above: Performed By: #### C BC ####[facility] [address] [place], [place] [address]Dr. Lawrence Wayne NEUT # 4.2 103/ul Normal 1.4-6.5 [facility] Comment on above: Performed By: #### C BC ####[facility] [address] [place], [place] [address]Dr. Lawrence Wayne Neutrophils/100 WBC (Bld) 60.6 % Normal 43.0-75.0 [facility] Comment on above: Performed By: #### C BC ####[facility] [address] [place], [place] [address]Dr. Lawrence Wayne Platelet mean volume (Bld) [Entitic vol] 9.2 fL Critically low 9.5-13.5 [facility] Comment on above: Performed By: #### C BC ####[facility] [address] [place], [place] [address]Qg. Lawrence Wayne PLT 322 103/ul Normal 150-450 [facility] Comment on above: Performed By: #### C BC ####[facility] [address] [place], [place] [address]Xv. Lawrence Wayne RBC 4.86 106/ul Normal 4.20-5.40 [facility] Comment on above: Performed By: #### C BC ####[facility] [address] [id number]. Lawrence Wayne WBC 7.0 103/ul Normal 4.0-11.0 [facility] Comment on above: Performed By: #### C BC ####[facility] [address] [id number]. Lawrence Wayne IRONon 02-18-2022 Iron [Mass/Vol] 89.0 ug/dL Normal 50.0-170.0 [facility] Comment on above: Performed By: #### A MY, CMP, LIPA #### [facility] [address] [address] [address] Lawrence Wayne PROF 14(COMP METB)on 022 Albumin [Mass/Vol] 4.0 g/dL Normal 3.4-5.0 [facility] Comment on above: Performed By: #### A MY, CMP, LIPA #### [facility] [address] [place] [address] Dr. Lawrence Wayne Albumin/Globulin [Mass ratio] 1.1 {ratio} Normal [facility] Comment on above: Performed By: #### A MY, CMP, LIPA #### [facility] [address] [address] [address] Lawrence Wayne ALP [Catalytic activity/Vol] 98 U/L Normal 46-116 [facility] Comment on above: Performed By: #### A MY, CMP, LIPA #### [facility] [address] [address] [address] Lawrence Wayne ALT [Catalytic activity/Vol] 23 U/L Normal 14-59 [facility] Comment on above: Performed By: #### A MY, CMP, LIPA #### [facility] [address] [place] [address] Dr. Lawrence Wayne Anion gap [Moles/Vol] 4.9 mmol/L Normal [facility] Comment on above: Performed By: #### A MY, CMP, LIPA #### [facility] [address] [place] [address] Dr. Lawrence Wayne AST [Catalytic activity/Vol] 19 U/L Normal 15-37 [facility] Comment on above: Performed By: #### A MY, CMP, LIPA #### [facility] [address] [place] [address] Dr. Lawrenec Wayne Bilirubin [Mass/Vol] 0.4 mg/dL Normal 0.2-1.0 [facility] Comment on above: Performed By: #### A MY, CMP, LIPA #### [facility] [address] [place] [address] Dr. Lawrence Wayne Calcium [Mass/Vol] 9.5 mg/dL Normal 8.5-10.1 [facility] Comment on above: Performed By: #### A MY, CMP, LIPA #### [facility] [address] [place] [address] Dr. Lawrence Wayne Chloride [Moles/Vol] 102 mmol/L Normal 98-107 [facility] Comment on above: Performed By: #### A MY, CMP, LIPA #### [facility] [address] [place] [address] Dr. Lawrence Wayne CO2 [Moles/Vol] 30.1 mmol/L Normal 21.0-32.0 [facility] Comment on above: Performed By: #### A MY, CMP, LIPA #### [facility] [address] [place] [address] Dr. Lawrence Wayne Creatinine [Mass/Vol] 0.99 mg/dL Normal 0.55-1.02 [facility] Comment on above: Performed By: #### A MY, CMP, LIPA #### [facility] [address] [address] [address] Lawrence Wayne EGFR-AF ECUADOREAN >60 Normal >=60 [facility] Comment on above: Performed By: #### A MY, CMP, LIPA #### [facility] [address] [address] [address] Lawrence Wayne EGFR-NON AF ECUADOREAN 56 mL/min/1.73m2 Critically low >=60 [facility] Comment on above: Performed By: #### A MY, CMP, LIPA #### [facility] [address] [place] [address] Dr. Lawrence Wayne Globulin (S) [Mass/Vol] 3.5 g/dL Normal [facility] [place] Comment on above: Performed By: #### A MY, CMP, LIPA #### [facility] [address] [place] [address] Dr. Lawrence Wayne Glucose [Mass/Vol] 100 mg/dL Normal 74-106 [facility] [place] Comment on above: Performed By: #### A MY, CMP, LIPA #### [facility] [address] [address] [address] Lawrence Wayne Potassium [Moles/Vol] 4.0 mmol/L Normal 3.5-5.1 [facility] [place] Comment on above: Performed By: #### A MY, CMP, LIPA #### [facility] [facility] [address] [place] [address] Dr. Lawrence Wayne Protein [Mass/Vol] 7.5 g/dL Normal 6.4-8.2 [facility] Comment on above: Performed By: #### A MY, CMP, LIPA #### [facility] [address] [place] [address] Dr. Lawrence Wayne Sodium [Moles/Vol] 133 mmol/L Critically low 136-145 [facility] Comment on above: Performed By: #### A MY, CMP, LIPA #### [facility] [address] [address] [address] Lawrence Wayne Urea nitrogen [Mass/Vol] 14.0 mg/dL Normal 7.0-18.0 [facility] Comment on above: Performed By: #### A MY, CMP, LIPA #### [facility] [address] [address] [address] Lawrence Wayen Urea nitrogen/Creatini ne [Mass ratio] 14.1 mg/mg Normal [facility] Comment on above: Performed By: #### A MY, CMP, LIPA #### [facility] [address] [address] [address] Lawrence Wayne TSHon 02-18-2022 TSH 1.273 uIU/mL Normal 0.358-3.74 0 [facility] Comment on above: Performed By: #### A MY, CMP, LIPA #### [facility] [address] [place] [address] Dr. Lawrence Wayne AMMONIAon 02-07-2022 Ammonia (P) [Mass/Vol] ug/dL Critically low 11-32 [facility] Comment on above: Performed By: #### A MM ####[facility] [address] [place], [place] [address]Dr. Lawrence Wayne AMYLASEon 02-07-2022 Amylase [Catalytic activity/Vol] 88 U/L Normal 25-115 [facility] Comment on above: Performed By: #### A MY, CMP, LIPA #### [facility] [address] [place] [address] Dr. Lawrence Wayne BNPon 02-07-2022 Natriuretic peptide B (Bld) [Mass/Vol] 236.0 pg/mL Normal <=900.0 [facility] Comment on above: Performed By: #### A MY, CMP, LIPA #### [facility] [address] [place] [address] Dr. Lawrence Wayne CBC AUTO DIFFon 02-07-2022 BASO # 0.0 103/ul Normal 0.0-0.1 [facility] Comment on above: Performed By: #### C BC ####[facility] [address] [address]Dr. Lawrence Wayne Basophils/100 WBC (Bld) 0.7 % Normal 0.2-2.0 [facility] Comment on above: Performed By: #### C BC ####[facility] [address] [address]Dr. Lawrence Wayne EO # 0.1 103/ul Normal 0.0-0.7 [facility] Comment on above: Performed By: #### C BC ####[facility] [address] [place], [place] [address]Dr. Lawrence Wayne Eosinophils/100 WBC (Bld) 1.3 % Normal 0.9-7.0 [facility] Comment on above: Performed By: #### C BC ####[facility] [address] [place], [place] [address]Dr. Lawrence Wayne Erythrocyte distribution width (RBC) [Ratio] 12.7 % Normal 11.0-15.0 [facility] Comment on above: Performed By: #### C BC ####[facility] [address] [place], [place] [address]Dr. Lawrence Wayne Hematocrit (Bld) [Volume fraction] 38.7 % Normal 36.0-48.0 [facility] Comment on above: Performed By: #### C BC ####[facility] [address] [place], [place] [address]Dr. Lawrence Wayne Hemoglobin (Bld) [Mass/Vol] 12.4 g/dL Normal 12.0-16.0 [facility] Comment on above: Result Comment: RECE IVING BOLUS AND SALINE Performed By: #### C BC ####[facility] [address] [place], [place] [address]Dr. Lawrence Wayne IG # 0.01 10e3/ul Normal 0.00-0.03 [facility] Comment on above: Performed By: #### C BC ####[facility] [address] [place], [place] [address]Dr. Lawrence Wayne IG % 0.2 % Normal 0.0-0.5 [facility] Comment on above: Performed By: #### C BC ####[facility] [address] [place], [place] [address]Dr. Lawrence Wayne LYMPH # 1.9 103/ul Normal 1.2-3.8 [facility] Comment on above: Performed By: #### C BC ####[facility] [address] [id number]. Laraantonio Wayne Lymphocytes/100 WBC (Bld) 35.0 % Normal 20.5-60.0 [facility] Comment on above: Performed By: #### C BC ####[facility] [address] [address]Dr. Lawrence Wayne MANUAL DIFF REQ NO Normal [facility] Comment on above: Performed By: #### C BC ####[facility] [address] [id number]. Lawrence Wayne MCH (RBC) [Entitic mass] 30.2 pg Normal 26.7-34.0 [facility] Comment on above: Performed By: #### C BC ####[facility] [address] [place], [place] [address]Dr. Lawrence Wayne MCHC (RBC) [Mass/Vol] 32.0 g/dL Normal 29.9-35.2 [facility] Comment on above: Performed By: #### C BC ####[facility] [address] [place], [place] [address]Dr. Lawrence Wayne MCV (RBC) [Entitic vol] 94.2 fL Normal 81.0-99.0 [facility] Comment on above: Performed By: #### C BC ####[facility] [address] [place], [place] [address]Dr. Lawrence Wayne MONO # 0.6 103/ul Normal 0.3-0.8 [facility] Comment on above: Performed By: #### C BC ####[facility] [address] [place], [place] [address]Dr. Lawrence Wayne Monocytes/100 WBC (Bld) 10.7 % Normal 1.7-12.0 [facility] Comment on above: Performed By: #### C BC ####[facility] [address] [place], [place] [address]Dr. Lawrence Wayne NEUT # 2.9 103/ul Normal 1.4-6.5 [facility] Comment on above: Performed By: #### C BC ####[facility] [address] [id number]. Lawrence Wayne Neutrophils/100 WBC (Bld) 52.1 % Normal 43.0-75.0 [facility] Comment on above: Performed By: #### C BC ####[facility] [address] [id number] Wayne Platelet mean volume (Bld) [Entitic vol] 9.5 fL Normal 9.5-13.5 [facility] Comment on above: Performed By: #### C BC ####[facility] [address] [id number] Wayne PLT 260 103/ul Normal 150-450 [facility] Comment on above: Performed By: #### C BC ####[facility] [address] [address]DrKim Wayne RBC 4.11 106/ul Critically low 4.20-5.40 [facility] Comment on above: Performed By: #### C BC ####[facility] [address] [id number] Wayne WBC 5.5 103/ul Normal 4.0-11.0 [facility] Comment on above: Performed By: #### C BC ####[facility] [address] [address]Dr. Lawrence Wayne PROF 14(COMP METB)on 022 Albumin [Mass/Vol] 3.0 g/dL Critically low 3.4-5.0 [facility] Comment on above: Performed By: #### A MY, CMP, LIPA #### [facility] [address] [address] [address] Lawrence Wayne Albumin/Globulin [Mass ratio] 1.1 {ratio} Normal [facility] Comment on above: Performed By: #### A MY, CMP, LIPA #### [facility] [address] [address] [address] Lawrence Wayne ALP [Catalytic activity/Vol] 77 U/L Normal 46-116 [facility] Comment on above: Performed By: #### A MY, CMP, LIPA #### [facility] [address] [address] [address] Lawrence Wayne ALT [Catalytic activity/Vol] 21 U/L Normal 14-59 [facility] Comment on above: Performed By: #### A MY, CMP, LIPA #### [facility] [address] [address] [address] Lawrence Wayne Anion gap [Moles/Vol] 10.9 mmol/L Normal [facility] Comment on above: Performed By: #### A MY, CMP, LIPA #### [facility] [address] [place] [address] Dr. Lawrence Wayne AST [Catalytic activity/Vol] 15 U/L Normal 15-37 [facility] Comment on above: Performed By: #### A MY, CMP, LIPA #### [facility] [address] [place] [address] Dr. Lawrence Wayne Bilirubin [Mass/Vol] 0.3 mg/dL Normal 0.2-1.0 [facility] Comment on above: Performed By: #### A MY, CMP, LIPA #### [facility] [address] [place] [address] Dr. Lawrence Wayne Calcium [Mass/Vol] 8.4 mg/dL Critically low 8.5-10.1 [facility] Comment on above: Performed By: #### A MY, CMP, LIPA #### [facility] [address] [place] [address] Dr. Lawrence Wayne Chloride [Moles/Vol] 110 mmol/L Critically high 98-107 [facility] Comment on above: Performed By: #### A MY, CMP, LIPA #### [facility] [address] [place] [address] Dr. Lawrence Wayne CO2 [Moles/Vol] 25.0 mmol/L Normal 21.0-32.0 [facility] Comment on above: Performed By: #### A MY, CMP, LIPA #### [facility] [address] [place] [address] Dr. Lawrence Wayne Creatinine [Mass/Vol] 0.87 mg/dL Normal 0.55-1.02 [facility] Comment on above: Performed By: #### A MY, CMP, LIPA #### [facility] [address] [address] [address] Lawrence Wayne EGFR-AF ECUADOREAN >60 Normal >=60 [facility] Comment on above: Performed By: #### A MY, CMP, LIPA #### [facility] [address] [address] [address] Lawrence Wayne EGFR-NON AF ECUADOREAN >60 Normal >=60 [facility] Comment on above: Performed By: #### A MY, CMP, LIPA #### [facility] [address] [address] [address] Lawrence Wayne Globulin (S) [Mass/Vol] 2.8 g/dL Normal [facility] Comment on above: Performed By: #### A MY, CMP, LIPA #### [facility] [address] [address] [address] Lawrence Wayne Glucose [Mass/Vol] 96 mg/dL Normal 74-106 [facility] Comment on above: Performed By: #### A MY, CMP, LIPA #### [facility] [address] [address] [address] Lawrence Wayne Potassium [Moles/Vol] 3.9 mmol/L Normal 3.5-5.1 [facility] Comment on above: Performed By: #### A MY, CMP, LIPA #### [facility] [address] [address] [address] Lawrence Wayne Protein [Mass/Vol] 5.8 g/dL Critically low 6.4-8.2 [facility] Comment on above: Performed By: #### A MY, CMP, LIPA #### [facility] [address] [address] [address] Lawrence Wayne Sodium [Moles/Vol] 142 mmol/L Normal 136-145 [facility] Comment on above: Performed By: #### A MY, CMP, LIPA #### [facility] [address] [address] [address] Lawrence Wayne Urea nitrogen [Mass/Vol] 11.0 mg/dL Normal 7.0-18.0 [facility] Comment on above: Performed By: #### A MY, CMP, LIPA #### [facility] [address] [address] [address] Lawrence Wayne Urea nitrogen/Creatini ne [Mass ratio] 12.6 mg/mg Normal [facility] Comment on above: Performed By: #### A MY, CMP, LIPA #### [facility] [address] [address] [address] Lawrence Wayne AMMONIAon 02-06-2022 Ammonia (P) [Moles/Vol] 44 umol/L Critically high 11-32 [facility] Comment on above: Performed By: #### A MY, CMP, LIPA #### [facility] [address] [address] [address] Lawrence Wayne AMYLASEon 02-06-2022 Amylase [Catalytic activity/Vol] 89 U/L Normal 25-115 [facility] Comment on above: Performed By: #### M G, CMP, CMADM, BNP, ALIYAH, LIPA #### [facility] [address] [address] [address] Lawrence Wayne BNPon 02-06-2022 Natriuretic peptide B (Bld) [Mass/Vol] 103.0 pg/mL Normal <=900.0 [facility] Comment on above: Performed By: #### M G, CMP, CMADM, BNP, ALIYAH, LIPA ####[facility] [address] [address]Dr. Lawrence Wayne CARDIAC ORAL ADMITon 022 CK [Catalytic activity/Vol] 65 U/L Normal 26-192 [facility] Comment on above: Performed By: #### M G, CMP, CMADM, BNP, ALIYAH, LIPA #### [facility] [address] [address] [address] Lawrence Wayne CK.MB [Mass/Vol] 1.16 ng/mL Normal <=3.60 [facility] Comment on above: Performed By: #### M G, CMP, CMADM, BNP, ALIYAH, LIPA #### [facility] [address] [address] [address] Lawrence Wayne HSTROP <4.0 Normal 4.0-51.3 [facility] Comment on above: Result Comment: CUT- OFF POINTS HAVE BEEN ESTABLISHED BASED ON THE FOURTH UNIVERSAL DEFINITIONS OF MYOCARDIAL INFARCTION. THE UPPER REFERENCE LIMIT (URL) OF TROPONIN, DEFINED THE 99TH PERCENTILE OF cTnI DISTRIBUTION IN A REFERENCE POPULATION, HAS BEEN CONFIRMED THE DECISION THRESHOLD FOR [place] DIAGNOSIS. Performed By: #### M G, CMP, CMADM, BNP, ALIYAH, LIPA #### [facility] [address] [place] [address] Dr. aLwrence Wayne GEORGI 47 ng/mL Normal 9-82 [facility] Comment on above: Performed By: #### M G, CMP, CMADM, BNP, ALIYAH, LIPA #### [facility] [address] [place] [address] Dr. Lawrence Wayne CBC AUTO DIFFon 02-06-2022 BASO # 0.1 103/ul Normal 0.0-0.1 [facility] Comment on above: Performed By: #### C BC ####[facility] [address] [address]DrKim Wayne Basophils/100 WBC (Bld) 0.7 % Normal 0.2-2.0 [facility] Comment on above: Performed By: #### C BC ####[facility] [address] [address]Dr. Lawrence Wayne EO # 0.1 103/ul Normal 0.0-0.7 [facility] Comment on above: Performed By: #### C BC ####[facility] [address] [address]DrKim Wayne Eosinophils/100 WBC (Bld) 1.1 % Normal 0.9-7.0 [facility] Comment on above: Performed By: #### C BC ####[facility] [address] [address]Dr. Lawrence Wayne Erythrocyte distribution width (RBC) [Ratio] 12.6 % Normal 11.0-15.0 [facility] Comment on above: Performed By: #### C BC ####[facility] [address] [address]Dr. Lawrence Wayne Hematocrit (Bld) [Volume fraction] 44.3 % Normal 36.0-48.0 [facility] Comment on above: Performed By: #### C BC ####[facility] [address] [place], [place] [address]Dr. Lawrence Wayne Hemoglobin (Bld) [Mass/Vol] 14.4 g/dL Normal 12.0-16.0 [facility] Comment on above: Performed By: #### C BC ####[facility] [address] [place], [place] [address]Dr. Lawrence Wayne IG # 0.01 10e3/ul Normal 0.00-0.03 [facility] Comment on above: Performed By: #### C BC ####[facility] [address] [place], [place] [address]Dr. Lawrence Wayne IG % 0.1 % Normal 0.0-0.5 [facility] Comment on above: Performed By: #### C BC ####[facility] [address] [place], [place] [address]DrKim Lawrence Wayne LYMPH # 2.1 103/ul Normal 1.2-3.8 [facility] Comment on above: Performed By: #### C BC ####[facility] [address] [place], [place] [address]DrKim Lawrence Wayne Lymphocytes/100 WBC (Bld) 29.6 % Normal 20.5-60.0 [facility] Comment on above: Performed By: #### C BC ####[facility] [address] [place], [place] [address]DrKim Lawrence Wayne MANUAL DIFF REQ NO Normal [facility] Comment on above: Performed By: #### C BC ####[facility] [address] [place], [place] [address]DrKim Lawrence Wayne MCH (RBC) [Entitic mass] 30.4 pg Normal 26.7-34.0 [facility] Comment on above: Performed By: #### C BC ####[facility] [address] [address]Dr. Lawrence Wayne MCHC (RBC) [Mass/Vol] 32.5 g/dL Normal 29.9-35.2 [facility] Comment on above: Performed By: #### C BC ####[facility] [address] [place], [place] [address]DrKim Wayne MCV (RBC) [Entitic vol] 93.7 fL Normal 81.0-99.0 [facility] Comment on above: Performed By: #### C BC ####[facility] [address] [place], [place] [address]DriKm Wayne MONO # 0.8 103/ul Normal 0.3-0.8 [facility] Comment on above: Performed By: #### C BC ####[facility] [address] [place], [place] [address]Dr. Lawrence Wayne Monocytes/100 WBC (Bld) 10.6 % Normal 1.7-12.0 [facility] Comment on above: Performed By: #### C BC ####[facility] [address] [place], [place] [address]Dr. Lawrence Wayne NEUT # 4.1 103/ul Normal 1.4-6.5 [facility] Comment on above: Performed By: #### C BC ####[facility] [address] [place], [place] [address]DrKim Wayne Neutrophils/100 WBC (Bld) 57.9 % Normal 43.0-75.0 [facility] Comment on above: Performed By: #### C BC ####[facility] [address] [place], [place] [address]DrKim Wayne Platelet mean volume (Bld) [Entitic vol] 9.3 fL Critically low 9.5-13.5 [facility] Comment on above: Performed By: #### C BC ####[facility] [address] [place], [place] [address]Dr. Lawrence Wayne PLT 294 103/ul Normal 150-450 [facility] Comment on above: Performed By: #### C BC ####[facility] [address] [id number]. Lawrence Wayne RBC 4.73 106/ul Normal 4.20-5.40 [facility] Comment on above: Performed By: #### C BC ####[facility] [address] [id number]. Lawrence Wayne WBC 7.1 103/ul Normal 4.0-11.0 [facility] Comment on above: Performed By: #### C BC ####[facility] [address] [address]Dr. Lawrence Wayne CULTURE BLOODon 02-06-2022 Microscopic examination of blood, culture Culture Observations: NO GROWTH AT 5 DAYS. Normal [facility] Comment on above: Performed By: #### B LDCX2 ####[facility] [address] [place], [place] [address]Dr. Lawrence Wayne Microscopic examination of blood, culture Culture Observations: NO GROWTH AT 5 DAYS. Normal [facility] Comment on above: Performed By: #### B [id number] ####[facility] [address] [place], [place] [address]Dr. Lawrence Wayne CULTURE URINEon 02-06-2022 CULTURE URINE Culture Observations : NO GROWTH. Normal [facility] Comment on above: Performed By: #### U RCX ####[facility] [address] [place], [place] [address]Dr. Lawrence Wayne Covid-19 PCR (CVDTB)on 01-14 SARS-CoV-2 (COVID-19) RNA EVELIA+probe Ql (Unsp spec) Not detected Normal NOT DETECTED [facility] Comment on above: Result Comment: When diagnostic testing is negative, the possibility of a false negative should be considered in the context of a patient's recent exposures and the presence of clinical signs and symptoms consistent with SARS-CoV-2. This test is not yet approved or cleared by the [place] FDA. When there are no FDA-approved or cleared tests available, and other criteria are met, FDA can make tests available under an emergency access mechanism called an Emergency Use Authorization (EUA). The EUA for this test is supported by the Propagation Manager of Health and Human Service's declaration that circumstances exist to justify the emergency use of in vitro diagnostics for the detection and/or diagnosis of the virus that causes COVID-19. This EUA will remain in effect for the duration of the COVID-19 declaration justifying emergency of IVDs, unless it is terminated or revoked by the FDA (after which the test may no longer be used). Performed By: #### C VDTBH ####[facility] [id number] [address]Dr. Lawrence Wayne LACTATE/LACTIC ACIDon 2021 Lactate [Moles/Vol] 1.1 mmol/L Normal 0.4-1.9 [facility] Comment on above: Performed By: #### A MY, CMP, LIPA #### [facility] [address] [place] [address] Dr. Lawrence Wayne LIPASEon 02-06-2022 Lipase [Catalytic activity/Vol] 107.0 U/L Normal 73.0-393.0 [facility] Comment on above: Performed By: #### M G, CMP, CMADM, BNP, ALIYAH, LIPA #### [facility] [address] [place] [address] Dr. Lawrence Wayne MAGNESIUMon 02-06-2022 Magnesium [Mass/Vol] 2.3 mg/dL Normal 1.8-2.4 [facility] Comment on above: Performed By: #### M G, CMP, CMADM, BNP, ALIYAH, LIPA ####[facility] [id number] [address]Dr. Lawrence Wayne PROF 14(COMP METB)on 022 Albumin [Mass/Vol] 3.8 g/dL Normal 3.4-5.0 [facility] Comment on above: Performed By: #### M G, CMP, CMADM, BNP, ALIYAH, LIPA #### [facility] [address] [place] [address] Dr. Lawrence Wayne Albumin/Globulin [Mass ratio] 1.1 {ratio} Normal [facility] Comment on above: Performed By: #### M G, CMP, CMADM, BNP, ALIYAH, LIPA #### [facility] [address] [address] [address] Lawrence Wayne ALP [Catalytic activity/Vol] 98 U/L Normal 46-116 [facility] Comment on above: Performed By: #### M G, CMP, CMADM, BNP, ALIYAH, LIPA #### [facility] [address] [address] [address] Lawrence Wayne ALT [Catalytic activity/Vol] 26 U/L Normal 14-59 [facility] Comment on above: Performed By: #### M G, CMP, CMADM, BNP, ALIYAH, LIPA #### [facility] [address] [place] [address] Dr. Lawrence Wayne Anion gap [Moles/Vol] 12.9 mmol/L Normal [facility] Comment on above: Performed By: #### M G, CMP, CMADM, BNP, ALIYAH, LIPA #### [facility] [address] [address] [address] Lawrence Wayne AST [Catalytic activity/Vol] 25 U/L Normal 15-37 [facility] Comment on above: Performed By: #### M G, CMP, CMADM, BNP, ALIYAH, LIPA #### [facility] [address] [place] [address] Dr. Lawrence Wayne Bilirubin [Mass/Vol] 0.3 mg/dL Normal 0.2-1.0 [facility] Comment on above: Performed By: #### M G, CMP, CMADM, BNP, ALIYAH, LIPA #### [facility] [address] [address] [address] Lawrence Wayne Calcium [Mass/Vol] 9.1 mg/dL Normal 8.5-10.1 [facility] Comment on above: Performed By: #### M G, CMP, CMADM, BNP, ALIYAH, LIPA #### [facility] [address] [address] [address] Lawrence Wayne Chloride [Moles/Vol] 105 mmol/L Normal 98-107 [facility] Comment on above: Performed By: #### M G, CMP, CMADM, BNP, ALIYAH, LIPA #### [facility] [address] [address] [address] Lawrence Wayne CO2 [Moles/Vol] 24.0 mmol/L Normal 21.0-32.0 [facility] Comment on above: Performed By: #### M G, CMP, CMADM, BNP, ALIYAH, LIPA #### [facility] [address] [address] [address] Lawrence Wayne Creatinine [Mass/Vol] 0.90 mg/dL Normal 0.55-1.02 [facility] Comment on above: Performed By: #### M G, CMP, CMADM, BNP, ALIYAH, LIPA #### [facility] [address] [place] [address] Dr. Lawrence Wayne EGFR-AF ECUADOREAN >60 Normal >=60 [facility] Comment on above: Performed By: #### M G, CMP, CMADM, BNP, ALIYAH, LIPA #### [facility] [address] [place] [address] Dr. Lawrence Wayne EGFR-NON AF ECUADOREAN >60 Normal >=60 [facility] Comment on above: Performed By: #### M G, CMP, CMADM, BNP, ALIYAH, LIPA #### [facility] [address] [address] [address] Lawrence Wayne Globulin (S) [Mass/Vol] 3.5 g/dL Normal [facility] Comment on above: Performed By: #### M G, CMP, CMADM, BNP, ALIYAH, LIPA #### [facility] [address] [address] [address] Lawrence Wayne Glucose [Mass/Vol] 95 mg/dL Normal 74-106 [facility] Comment on above: Performed By: #### M G, CMP, CMADM, BNP, ALIYAH, LIPA #### [facility] [address] [address] [address] Lawrence Wayne Potassium [Moles/Vol] 3.9 mmol/L Normal 3.5-5.1 [facility] Comment on above: Performed By: #### M G, CMP, CMADM, BNP, ALIYAH, LIPA #### [facility] [address] [place] [address] Dr. Lawrence Wayne Protein [Mass/Vol] 7.3 g/dL Normal 6.4-8.2 [facility] Comment on above: Performed By: #### M G, CMP, CMADM, BNP, ALIYAH, LIPA #### [facility] [address] [address] [address] Lawrence Wayne Sodium [Moles/Vol] 138 mmol/L Normal 136-145 [facility] Comment on above: Performed By: #### M G, CMP, CMADM, BNP, ALIYAH, LIPA #### [facility] [address] [place] [address] Dr. Lawrence Wayne Urea nitrogen [Mass/Vol] 12.0 mg/dL Normal 7.0-18.0 [facility] Comment on above: Performed By: #### M G, CMP, CMADM, BNP, ALIYAH, LIPA #### [facility] [address] [place] [address] Dr. Lawrence Wayne Urea nitrogen/Creatini ne [Mass ratio] 13.3 mg/mg Normal [facility] Comment on above: Performed By: #### M G, CMP, CMADM, BNP, ALIYAH, LIPA #### [facility] [address] [place] [address] Dr. Lawrence Wayne UA RANDOM W/MICROSCOPICon BACTERIA NONE SEEN Normal NONE SEEN [facility] Comment on above: Performed By: #### A MY, CMP, LIPA #### [facility] [address] [place] [address] Dr. Lawrence Wayne Bilirubin Ql (U) Negative Normal NEGATIVE [facility] Comment on above: Performed By: #### A MY, CMP, LIPA #### [facility] [address] [place] [address] Dr. Lawrence Wayne CAST NONE SEEN Normal NONE SEEN [facility] Comment on above: Performed By: #### A MY, CMP, LIPA #### [facility] [address] [place] [address] Dr. Lawrence Wayne Clarity (U) CLEAR Normal CLEAR [facility] Comment on above: Performed By: #### A MY, CMP, LIPA #### [facility] [address] [place] [address] Dr. Lawrence Wayne Color (U) LT. YELLOW Normal YELLOW [facility] Comment on above: Performed By: #### A MY, CMP, LIPA #### [facility] [address] [place] [address] Dr. Lawrence Wayne Crystals LM Nom (Urine sed) NONE SEEN Normal NONE SEEN [facility] Comment on above: Performed By: #### A MY, CMP, LIPA #### [facility] [address] [place] [address] Dr. Lawrence Wayne Epithelial cells LM Ql (Urine sed) FEW Abnormal NONE SEEN /RARE [facility] Comment on above: Performed By: #### A MY, CMP, LIPA #### [facility] [address] [place] [address] Dr. Lawrence Wayne Glucose Ql (U) Negative Normal NEGATIVE [facility] Comment on above: Performed By: #### A MY, CMP, LIPA #### [facility] [address] [place] [address] Dr. Lawrence Wayne Hemoglobin Ql (U) Negative Normal NEGATIVE [facility] Comment on above: Performed By: #### A MY, CMP, LIPA #### [facility] [address] [place] [address] Dr. Lawrence Wayne Ketones Ql (U) Negative Normal NEGATIVE [facility] Comment on above: Performed By: #### A MY, CMP, LIPA #### [facility] [address] [place] [address] Dr. Lawrence Wayne LEUKOCYTES SMALL Abnormal NEGATIVE [facility] Comment on above: Performed By: #### A MY, CMP, LIPA #### [facility] [address] [place] [address] Dr. Lawrence Wayne MUCOUS NONE SEEN Normal NONE SEEN [facility] Comment on above: Performed By: #### A MY, CMP, LIPA #### [facility] [address] [address] [address] Lawrence Wayne Nitrite Ql (U) Negative Normal NEGATIVE [facility] Comment on above: Performed By: #### A MY, CMP, LIPA #### [facility] [address] [address] [address] Lawrence Wayne pH (U) 6.0 [pH] Normal 5-9 [facility] Comment on above: Performed By: #### A MY, CMP, LIPA #### [facility] [address] [place] [address] Dr. Lawrence Wayne RBC NONE SEEN Abnormal 0-2 [facility] Comment on above: Performed By: #### A MY, CMP, LIPA #### [facility] [address] [place] [address] Dr. Lawrence aWyne SPEC GRAVITY <=1.005 Abnormal 1.005-<=1. 025 [facility] Comment on above: Performed By: #### A MY, CMP, LIPA #### [facility] [address] [place] [address] Dr. Lawrence Wayne UA PROTEIN Negative Normal NEGATIVE/ TRACE [facility] Comment on above: Performed By: #### A MY, CMP, LIPA #### [facility] [address] [place] [address] Dr. Lawrence Wayne Urobilinogen Qn (U) 0.2 {Antonina'U}/dL Normal 0.2 - 1.0 [facility] Comment on above: Performed By: #### A MY, CMP, LIPA #### [facility] [address] [place] [address] Dr. Lawrence Wayne WBC 0-2 Abnormal NONE SEEN [facility] Comment on above: Performed By: #### A MY, CMP, LIPA #### [facility] [address] [place] [address] Dr. Lawrence Wayne YEAST PRESENT Abnormal NONE SEEN [facility] Comment on above: Performed By: #### A MY, CMP, LIPA #### [facility] [address] [address] [address] Lawrence Wayne XR ABD FLAT UP_PA Sebastian 02-06 XR ABD FLAT UP_PA CH EXAMINATION: XR ABD FLAT UP_PA CH HISTORY: NAUSEA WITH VOMITING, UNSPECIFIED ; acute weakness, dyspnea COMPARISON: XR chest and abdomen 08/27/2021 FINDINGS: LUNGS: Hyperexpanded lungs without appreciable infiltrates or mass. Numerous surgical clips overlying the upper chest. MEDIASTINUM: No abnormal widening. BOWEL GAS PATTERN: Non-obstructed. FREE AIR: None. CALCIFICATIONS: None significant. BONES: No fracture or visible bone lesion. OTHER: Surgical clips within the right abdomen and pelvis. IMPRESSION: 1. No acute cardiopulmonary process. 2. Normal bowel gas pattern. No suspicious findings. Electronically authenticated by: TYRELL MOREJON Date: 2022-02-06 16:08 Normal [facility] CTA CHEST WO W CONon 022 CTA CHEST WO W CON EXAMINATION: CTA CHEST WO W CON HISTORY: Chest pain COMPARISON: No relevant comparison available. TECHNIQUE: Axial, Coronal, and Sagittal images were created without and with IV contrast. Dose reduction techniques were achieved by using automated exposure control and/or adjustment of mA and/or kV according to patient size and/or use of iterative reconstruction technique. FINDINGS: LUNGS: Mildly calcified tracheobronchial tree biapical patchy opacities, pleural parenchymal scarring is favored. Punctate pulmonary nodules which appear to be mostly calcified suggesting prior granulomatous process. Minimal dependent atelectasis. No focal parenchymal infiltrate to suggest a pneumonia PLEURA: No mass, effusion, or pneumothorax. VASCULATURE: Normal postcontrast opacification of the central pulmonary arterial tree LAURI: No pathologic lymphadenopathy MEDIASTINUM: No pathologic lymphadenopathy CARDIAC: No enlargement, pericardial thickening, or significant calcification. AORTA: No aneurysm or dissection. CHEST WALL: No mass or axillary adenopathy. BONES: No bone lesion or fracture. LIMITED ABDOMEN: No suspicious findings. Limited images of the upper abdomen. OTHER: Negative. IMPRESSION: No central pulmonary thromboembolic disease No focal parenchymal infiltrate Electronically authenticated by: MARK RASHEED Date: 2021-08-29 12:20 Normal [facility] XR ABD FLAT_UPon 08-27-2021 XR ABD FLAT_UP EXAM: CHEST 2 VIEWS, ABDOMEN UPRIGHT HISTORY: Chest pain TECHNIQUE: PA and lateral views chest, abdomen upright. COMPARISON: 04/21/2021. FINDINGS: The lungs are hyperinflated. There is no focal lung consolidation, pleural effusion or pneumothorax. Pulmonary vasculature is within normal limits. The cardiomediastinal silhouette is normal. There are surgical clips on both sides of the neck to the upper chest. Bowel gas pattern is nonobstructed, with large stool burden. No air-fluid levels or free air. There are cholecystectomy clips. There are also surgical clips in the lateral right abdomen. No radiopaque urinary calculus is seen. IMPRESSION: 1. Pulmonary hyperinflation without acute cardiopulmonary disease. 2. Normal heart size. 3. Nonobstructed bowel gas pattern with large stool burden. Correlate for constipation. 4. No air-fluid levels or free air. 5. Cholecystectomy, with additional surgical clips in the right abdomen. Electronically authenticated by: ENEDELIA FOLEY Date: 2021-08-27 16:08 Normal [facility] BNPon 08-21-2021 Natriuretic peptide B (Bld) [Mass/Vol] 51.0 pg/mL Normal <=900.0 [facility] Comment on above: Performed By: #### A MY, CMP, LIPA #### [facility] [address] [address] [address] Lawrence Wayne CBC AUTO DIFFon 08-21-2021 BASO # 0.0 103/ul Normal 0.0-0.1 [facility] Comment on above: Performed By: #### A MY, CMP, LIPA #### [facility] [address] [address] [address] Lawrence Wayne Basophils/100 WBC (Bld) 0.2 % Normal 0.2-2.0 [facility] Comment on above: Performed By: #### A MY, CMP, LIPA #### [facility] [address] [address] [address] Lawrence Wayne EO # 0.0 103/ul Normal 0.0-0.7 [facility] Comment on above: Performed By: #### A MY, CMP, LIPA #### [facility] [address] [address] [address] Lawrence Wayne Eosinophils/100 WBC (Bld) 0.1 % Critically low 0.9-7.0 [facility] Comment on above: Performed By: #### A MY, CMP, LIPA #### [facility] [address] [place] [address] Dr. Lawrence Wayne Erythrocyte distribution width (RBC) [Ratio] 13.3 % Normal 11.0-15.0 [facility] Comment on above: Performed By: #### A MY, CMP, LIPA #### [facility] [address] [place] [address] Dr. Lawrence Wayne Hematocrit (Bld) [Volume fraction] 45.7 % Normal 36.0-48.0 [facility] Comment on above: Performed By: #### A MY, CMP, LIPA #### [facility] [address] [place] [address] Dr. Lawrence Wayne Hemoglobin (Bld) [Mass/Vol] 15.3 g/dL Normal 12.0-16.0 [facility] Comment on above: Performed By: #### A MY, CMP, LIPA #### [facility] [address] [place] [address] Dr. Lawrence Wayne IG # 0.12 10e3/ul Critically high 0.00-0.03 [facility] Comment on above: Performed By: #### A MY, CMP, LIPA #### [facility] [address] [place] [address] Dr. Lawrence Wayne IG % 0.9 % Critically high 0.0-0.5 [facility] Comment on above: Performed By: #### A MY, CMP, LIPA #### [facility] [address] [place] [address] Dr. Lawrence Wayne LYMPH # 1.6 103/ul Normal 1.2-3.8 [facility] Comment on above: Performed By: #### A MY, CMP, LIPA #### [facility] [address] [place] [address] Dr. Lawrence Wayne Lymphocytes/100 WBC (Bld) 11.9 % Critically low 20.5-60.0 [facility] Comment on above: Performed By: #### A MY, CMP, LIPA #### [facility] [address] [address] [address] Lawrence Wayne MANUAL DIFF REQ NO Normal [facility] Comment on above: Performed By: #### A MY, CMP, LIPA #### [facility] [address] [place] [address] Dr. Lawrence Wayne MCH (RBC) [Entitic mass] 30.2 pg Normal 26.7-34.0 [facility] Comment on above: Performed By: #### A MY, CMP, LIPA #### [facility] [address] [place] [address] Dr. Lawrence Wayne MCHC (RBC) [Mass/Vol] 33.5 g/dL Normal 29.9-35.2 [facility] Comment on above: Performed By: #### A MY, CMP, LIPA #### [facility] [address] [place] [address] Dr. Lawrence Wayne MCV (RBC) [Entitic vol] 90.1 fL Normal 81.0-99.0 [facility] Comment on above: Performed By: #### A MY, CMP, LIPA #### [facility] [address] [place] [address] Dr. Lawrence Wayne MONO # 1.0 103/ul Critically high 0.3-0.8 [facility] Comment on above: Performed By: #### A MY, CMP, LIPA #### [facility] [address] [place] [address] Dr. Lawrence Wayne Monocytes/100 WBC (Bld) 7.2 % Normal 1.7-12.0 [facility] Comment on above: Performed By: #### A MY, CMP, LIPA #### [facility] [address] [place] [address] Dr. Lawrence Wayne NEUT # 11.0 103/ul Critically high 1.4-6.5 [facility] Comment on above: Performed By: #### A MY, CMP, LIPA #### [facility] [address] [place] [address] Dr. Lawrence Wayne Neutrophils/100 WBC (Bld) 79.7 % Critically high 43.0-75.0 [facility] Comment on above: Performed By: #### A MY, CMP, LIPA #### [facility] [address] [place] [address] Dr. Lawrence Wayne Platelet mean volume (Bld) [Entitic vol] 9.1 fL Critically low 9.5-13.5 [facility] Comment on above: Performed By: #### A MY, CMP, LIPA #### [facility] [address] [address] [address] Lawrence Wayne PLT 434 103/ul Normal 150-450 [facility] Comment on above: Performed By: #### A MY, CMP, LIPA #### [facility] [address] [place] [address] Dr. Lawrence Wayne RBC 5.07 106/ul Normal 4.20-5.40 [facility] Comment on above: Performed By: #### A MY, CMP, LIPA #### [facility] [address] [place] [address] Dr. Lawrence Wayne WBC 13.8 103/ul Critically high 4.0-11.0 [facility] Comment on above: Performed By: #### A MY, CMP, LIPA #### [facility] [address] [place] [address] Dr. Lawrence Wayne PROF 14(COMP METB)on 022 Albumin [Mass/Vol] 3.9 g/dL Normal 3.5-5.0 [facility] Comment on above: Performed By: #### A MY, CMP, LIPA #### [facility] [address] [place] [address] Dr. Lawrence Wayne Albumin/Globulin [Mass ratio] 1.0 {ratio} Normal [facility] Comment on above: Performed By: #### A MY, CMP, LIPA #### [facility] [address] [place] [address] Dr. Lawrence Wayne ALP [Catalytic activity/Vol] 104 U/L Normal 38-126 [facility] Comment on above: Performed By: #### A MY, CMP, LIPA #### [facility] [address] [address] [address] Lawrence Wayne ALT [Catalytic activity/Vol] 20 U/L Normal 9-52 [facility] Comment on above: Performed By: #### A MY, CMP, LIPA #### [facility] [address] [address] [address] Lawrence Wayne Anion gap [Moles/Vol] 15.5 mmol/L Normal [facility] Comment on above: Performed By: #### A MY, CMP, LIPA #### [facility] [address] [address] [address] Lawrence Wayne AST [Catalytic activity/Vol] 13 U/L Critically low 14-36 [facility] Comment on above: Performed By: #### A MY, CMP, LIPA #### [facility] [address] [place] [address] Dr. Lawrence Wayne Bilirubin [Mass/Vol] 0.4 mg/dL Normal 0.2-1.3 [facility] Comment on above: Performed By: #### A MY, CMP, LIPA #### [facility] [address] [address] [address] Lwarence Wayne Calcium [Mass/Vol] 9.4 mg/dL Normal 8.4-10.2 [facility] Comment on above: Performed By: #### A MY, CMP, LIPA #### [facility] [address] [address] [address] Lawrence Wayne Chloride [Moles/Vol] 100 mmol/L Normal 98-107 [facility] Comment on above: Performed By: #### A MY, CMP, LIPA #### [facility] [address] [address] [address] Lawrence Wayne CO2 [Moles/Vol] 23.9 mmol/L Normal 22.0-30.0 [facility] Comment on above: Performed By: #### A MY, CMP, LIPA #### [facility] [address] [address] [address] Lawrence Wayne Creatinine [Mass/Vol] 0.97 mg/dL Normal 0.52-1.04 [facility] Comment on above: Performed By: #### A MY, CMP, LIPA #### [facility] [address] [address] [address] Lawrence Wayne EGFR-AF ECUADOREAN >60 Normal >=60 [facility] Comment on above: Performed By: #### A MY, CMP, LIPA #### [facility] [address] [place] [address] Dr. Lawrence Wayne EGFR-NON AF ECUADOREAN 58 mL/min/1.73m2 Critically low >=60 [facility] Comment on above: Performed By: #### A MY, CMP, LIPA #### [facility] [address] [place] [address] Dr. Lawrence Wayne Globulin (S) [Mass/Vol] 3.8 g/dL Normal [facility] Comment on above: Performed By: #### A MY, CMP, LIPA #### [facility] [address] [place] [address] Dr. Lawrence Wayne Glucose [Mass/Vol] 169 mg/dL Critically high 74-106 [facility] Comment on above: Performed By: #### A MY, CMP, LIPA #### [facility] [address] [place] [address] Dr. Lawrence Wayne Potassium [Moles/Vol] 3.4 mmol/L Normal 3.4-5.0 [facility] Comment on above: Performed By: #### A MY, CMP, LIPA #### [facility] [address] [place] [address] Dr. Lawrence Wayne Protein [Mass/Vol] 7.7 g/dL Normal 6.1-8.2 [facility] Comment on above: Performed By: #### A MY, CMP, LIPA #### [facility] [address] [place] [address] Dr. Lawrence Wayne Sodium [Moles/Vol] 136 mmol/L Critically low 137-145 [facility] Comment on above: Performed By: #### A MY, CMP, LIPA #### [facility] [address] [place] [address] Dr. Lawrence Wayne Urea nitrogen [Mass/Vol] 16.0 mg/dL Normal 7.0-17.0 [facility] Comment on above: Performed By: #### A MY, CMP, LIPA #### [facility] [address] [address] [address] Lawrence Wayne Urea nitrogen/Creatini ne [Mass ratio] 16.5 mg/mg Normal [facility] Comment on above: Performed By: #### A MY CMP, LIPA #### [facility] [address] [address] [address] Lawrnece Wayne AMIRA by IFAon 08-12-2021 Antinuclear Antibodies, IFA Positive Abnormal [facility] Comment on above: Result Comment: Nega tive <1:80 Borderline 1:80 Positive >1:80 Performed By: #### A NAIFA ####[facility] [id number] [address]Dr. Lawrence Wayne Centriole Pattern Normal [facility] Comment on above: Performed By: #### A NAIFA ####[facility] [id number] [address]Dr. Lawrence Wayne Centromere Pattern Normal [facility] Comment on above: Performed By: #### A NAIFA ####[facility] [id number] [address]Dr. Lawrence Wayne Homogeneous Pattern Normal [facility] Comment on above: Performed By: #### A NAIFA ####[facility] [id number] [address]Dr. Lawrence Wayne Midbody Pattern Normal [facility] Comment on above: Performed By: #### A NAIFA ####[facility] [id number] [address]Dr. Lawrence Wayne Note: Comment Normal [facility] Comment on above: Result Comment: For more information about Hep-2 cell patterns use ANApatterns.org, the official website for the International Consensus on Antinuclear Antibody (AMIRA) Patterns (ICAP). A positive AMIRA result may occur in healthy individuals (low titer) or be associated with a variety of diseases. See interpretation chart which is not all inclusive: . Pattern Antigen Detected Suggested Disease Association Homogeneous DNA(ds,ss), SLE - High titers Nucleosomes, Histones Drug-induced SLE Speckled Sm, SMALL PRODUCTS II ASSEMBLER, SCL-70, SLE,MCTD,PSS (diffuse form), SS-A/SS-B Sjogrens Nucleolar SCL-70, PM-1/SCL High titers Scleroderma, PM/DM Centromere Centromere PSS (limited form) w/Crest syndrome variable Nuclear Dot [id number] Primary Biliary Cirrhosis Nuclear GP210, Primary Biliary Cirrhosis Membrane hamilton A,B,C Performed By: #### A NAIFA ####[facility] [id number] [place], [place] [address]Dr. Lawrence Wayne Nuclear Dot Pattern Normal [facility] Comment on above: Performed By: #### A NAIFA ####[facility] [id number] [place], [place] [address]Dr. Lawrence Wayne Nuclear Membrane Pattern Normal [facility] Comment on above: Performed By: #### A NAIFA ####[facility] [id number] [place], [place] [address]Dr. Lawrence Wayne Nucleolar Pattern Normal [facility] Comment on above: Performed By: #### A NAIFA ####[facility] [id number] [place], [place] [address]Dr. Lawrence Wayne PCNA Pattern Normal [facility] Comment on above: Performed By: #### A NAIFA ####[facility] [id number] [place], [place] [address]Dr. Lawrence Wayne Speckled Pattern 1:160 Critically high [facility] Comment on above: Result Comment: ICAP nomenclature: AC-2,4,5,29 Performed By: #### A NAIFA ####[facility] [id number] [place], [place] [address]Dr. Lawrence Wayne Spindle Apparatus Pattern Normal [facility] Comment on above: Performed By: #### A NAIFA ####[facility] [id number] [place], [place] [address]Dr. Lawrence Wayne AMIRA DIRECTon 08-11-2021 AMIRA Direct Positive Abnormal Negative [facility] Comment on above: Performed By: #### A NAD ####[facility] [id number] [place], [place] [address]Dr. Lawrence Wayne SLE PROFILE Aon 08-11-2021 Anti-DNA (DS) Ab Qn 1 IU/mL Normal 0-9 [facility] Comment on above: Result Comment: Nega tive <5 Equivocal 5 - 9 Positive >9 Performed By: #### A MY, CMP, LIPA #### [facility] [address] [place] [address] Dr. Lawrence Wayne Antichromatin Antibodies <0.2 Normal 0.0-0.9 [facility] Comment on above: Performed By: #### A MY, CMP, LIPA #### [facility] [address] [address] [address] Lawrence Wayne RA Latex Turbid. <10.0 Normal <14.0 [facility] Comment on above: Performed By: #### A MY, CMP, LIPA #### [facility] [address] [place] [address] Dr. Lawrence Wayne SMALL PRODUCTS II ASSEMBLER Antibodies <0.2 Normal 0.0-0.9 [facility] Comment on above: Performed By: #### A MY, CMP, LIPA #### [facility] [address] [place] [address] Dr. Lawrence Wayne Sjogrvidal's Anti-SS-A 1.4 AI Critically high 0.0-0.9 [facility] Comment on above: Performed By: #### A MY, CMP, LIPA #### [facility] [address] [place] [address] Dr. Lawrence Garciaogrvidal's Anti-SS-B <0.2 Normal 0.0-0.9 [facility] Comment on above: Performed By: #### A MY, CMP, LIPA #### [facility] [address] [place] [address] Dr. Lawrence Wayne Ramos Antibodies <0.2 Normal 0.0-0.9 [facility] Comment on above: Performed By: #### A MY, CMP, LIPA #### [facility] [address] [place] [address] Dr. Lawrence Wayne ANTISTREPTOLYSIN O AB (ASO)o n 08-10-2021 Antistreptolysin O Ab 55.6 IU/mL Normal 0.0-200.0 [facility] Comment on above: Performed By: #### A MY, CMP, LIPA #### [facility] [address] [place] [address] Dr. Lawrence Wayne C3 and C4 COMPLEMENTon 08-10 Complement C3, Serum 124 mg/dL Normal 82-167 [facility] Comment on above: Performed By: #### A MY, CMP, LIPA #### [facility] [address] [place] [address] Dr. Lawrence Wayne Complement C4, Serum 12 mg/dL Normal 12-38 [facility] Comment on above: Performed By: #### A MY, CMP, LIPA #### [facility] [address] [place] [address] Dr. Lawrence Wayne CBC AUTO DIFFon 08-09-2021 BASO # 0.1 103/ul Normal 0.0-0.1 [facility] Comment on above: Performed By: #### A MY, CMP, LIPA #### [facility] [address] [place] [address] Dr. Lawrence Wayne Basophils/100 WBC (Bld) 0.6 % Normal 0.2-2.0 [facility] Comment on above: Performed By: #### A MY, CMP, LIPA #### [facility] [address] [place] [address] Dr. Lawrence Wayne EO # 0.0 103/ul Normal 0.0-0.7 [facility] Comment on above: Performed By: #### A MY, CMP, LIPA #### [facility] [address] [place] [address] Dr. Lawrence Wayne Eosinophils/100 WBC (Bld) 0.2 % Critically low 0.9-7.0 [facility] Comment on above: Performed By: #### A MY, CMP, LIPA #### [facility] [address] [place] [address] Dr. Lawrence Wayne Erythrocyte distribution width (RBC) [Ratio] 13.4 % Normal 11.0-15.0 [facility] Comment on above: Performed By: #### A MY, CMP, LIPA #### [facility] [address] [address] [address] Lawrence Wayne Hematocrit (Bld) [Volume fraction] 43.6 % Normal 36.0-48.0 [facility] Comment on above: Performed By: #### A MY, CMP, LIPA #### [facility] [address] [address] [address] Lawrence Wayne Hemoglobin (Bld) [Mass/Vol] 14.2 g/dL Normal 12.0-16.0 [facility] Comment on above: Performed By: #### A MY, CMP, LIPA #### [facility] [address] [place] [address] Dr. Lawrence Wayne IG # 0.03 10e3/ul Normal 0.00-0.03 [facility] Comment on above: Performed By: #### A MY, CMP, LIPA #### [facility] [address] [place] [address] Dr. Lawrence Wayne IG % 0.3 % Normal 0.0-0.5 [facility] Comment on above: Performed By: #### A MY, CMP, LIPA #### [facility] [address] [place] [address] Dr. Lawrence Wayne LYMPH # 1.1 103/ul Critically low 1.2-3.8 [facility] Comment on above: Performed By: #### A MY, CMP, LIPA #### [facility] [address] [place] [address] Dr. Lawrence Wayne Lymphocytes/100 WBC (Bld) 12.7 % Critically low 20.5-60.0 [facility] Comment on above: Performed By: #### A MY, CMP, LIPA #### [facility] [address] [place] [address] Dr. Lawrence Wayne MANUAL DIFF REQ NO Normal [facility] Comment on above: Performed By: #### A MY, CMP, LIPA #### [facility] [address] [place] [address] Dr. Lawrence Wayne MCH (RBC) [Entitic mass] 30.3 pg Normal 26.7-34.0 [facility] Comment on above: Performed By: #### A MY, CMP, LIPA #### [facility] [address] [place] [address] Dr. Lawrence Wayne MCHC (RBC) [Mass/Vol] 32.6 g/dL Normal 29.9-35.2 [facility] Comment on above: Performed By: #### A MY, CMP, LIPA #### [facility] [address] [place] [address] Dr. Lawrence Wayne MCV (RBC) [Entitic vol] 93.0 fL Normal 81.0-99.0 [facility] Comment on above: Performed By: #### A MY, CMP, LIPA #### [facility] [address] [place] [address] Dr. Lawrence Wayne MONO # 0.3 103/ul Normal 0.3-0.8 [facility] Comment on above: Performed By: #### A MY, CMP, LIPA #### [facility] [address] [place] [address] Dr. Lawrence Wayne Monocytes/100 WBC (Bld) 3.7 % Normal 1.7-12.0 [facility] Comment on above: Performed By: #### A MY, CMP, LIPA #### [facility] [address] [place] [address] Dr. Lawrence Wayne NEUT # 7.3 103/ul Critically high 1.4-6.5 [facility] Comment on above: Performed By: #### A MY, CMP, LIPA #### [facility] [address] [place] [address] Dr. Lawrence Wayne Neutrophils/100 WBC (Bld) 82.5 % Critically high 43.0-75.0 [facility] Comment on above: Performed By: #### A MY, CMP, LIPA #### [facility] [address] [place] [address] Dr. Lawrence Wayne Platelet mean volume (Bld) [Entitic vol] 9.6 fL Normal 9.5-13.5 [facility] Comment on above: Performed By: #### A MY, CMP, LIPA #### [facility] [address] [address] [address] Lawrence Wayne PLT 322 103/ul Normal 150-450 [facility] Comment on above: Performed By: #### A MY, CMP, LIPA #### [facility] [address] [address] [address] Lawrence Wayne RBC 4.69 106/ul Normal 4.20-5.40 [facility] Comment on above: Performed By: #### A MY, CMP, LIPA #### [facility] [address] [address] [address] Lawrence Wayne WBC 8.8 103/ul Normal 4.0-11.0 [facility] Comment on above: Performed By: #### A MY, CMP, LIPA #### [facility] [address] [address] [address] Lawrence Wayne CRPon 08-09-2021 CRP [Mass/Vol] mg/L Normal <=1.0 [facility] Comment on above: Performed By: #### A MY, CMP, LIPA #### [facility] [address] [place] [address] Dr. Lawrence Wayne IRONon 08-09-2021 Iron [Mass/Vol] 83.0 ug/dL Normal 37.0-170.0 [facility] Comment on above: Performed By: #### A MY, CMP, LIPA #### [facility] [address] [address] [address] Lawrence Wayne SED RATE WESTERGRENon 2021 SED RATE 16 mm/hr Normal <=30 [facility] Comment on above: Performed By: #### S EDR ####[facility] [id number] [address]Dr. Lawrence Wayne URIC ACID SERUMon 08-09-2021 Urate [Mass/Vol] 3.4 mg/dL Normal 2.5-6.2 [facility] Comment on above: Performed By: #### A MY, CMP, LIPA #### [facility] [address] [place] [address] Dr. Lawrence Wayne XR CSPINE MIN 4 VIEWSon 07-17 XR CSPINE MIN 4 VIEWS EXAMINATION: XR CSPINE MIN 4 VIEWS HISTORY: Cervical radiculopathy ; neck pain, right arm numbness COMPARISON: XR cervical spine 04/04/2020 FINDINGS: BONES: No fracture spinal listhesis. Normal lordotic curvature. Multilevel very mild degenerative facet arthropathy. Suspect mild bone encroachment on the left C3-4 neural foramen. DISC SPACES: Mild disc height reduction C5-6, C6-7. PARASPINOUS: Negative. No paraspinous abnormality is seen. OTHER: Negative. IMPRESSION: 1. No appreciable acute abnormality. 2. Mild degenerative changes; not appreciably changed. Electronically authenticated by: TYRELL MOREJON Date: 2021-08-09 14:37 Normal [facility] H PYLORI ANTIBODY IGGon 06-16 H. PYLORI IGG ABS 0.13 Index Value Normal 0.00-0.79 [facility] Comment on above: Result Comment: Nega tive <0.80 Equivocal 0.80 - 0.89 Positive >0.89 Performed By: #### A MY, CMP, LIPA #### [facility] [address] [address] [address] Lawrence Wayne AMYLASEon 07-11-2021 Amylase [Catalytic activity/Vol] 100 U/L Normal 31-110 [facility] Comment on above: Performed By: #### A MY, CMP, LIPA #### [facility] [address] [address] [address] Lawrence Wayne CBC AUTO DIFFon 07-11-2021 BASO # 0.1 103/ul Normal 0.0-0.1 [facility] Comment on above: Performed By: #### A MY, CMP, LIPA #### [facility] [address] [address] [address] Lawrence Wayne Basophils/100 WBC (Bld) 0.7 % Normal 0.2-2.0 [facility] Comment on above: Performed By: #### A MY, CMP, LIPA #### [facility] [address] [address] [address] Lawrence Wayne EO # 0.1 103/ul Normal 0.0-0.7 [facility] Comment on above: Performed By: #### A MY, CMP, LIPA #### [facility] [address] [place] [address] Dr. Lawrence Wayne Eosinophils/100 WBC (Bld) 1.2 % Normal 0.9-7.0 [facility] Comment on above: Performed By: #### A MY, CMP, LIPA #### [facility] [address] [place] [address] Dr. Lawrence Wayne Erythrocyte distribution width (RBC) [Ratio] 13.9 % Normal 11.0-15.0 [facility] Comment on above: Performed By: #### A MY, CMP, LIPA #### [facility] [address] [place] [address] Dr. Lawrence Wayne Hematocrit (Bld) [Volume fraction] 45.9 % Normal 36.0-48.0 [facility] Comment on above: Performed By: #### A MY, CMP, LIPA #### [facility] [address] [place] [address] Dr. Lawrence Wayne Hemoglobin (Bld) [Mass/Vol] 14.9 g/dL Normal 12.0-16.0 [facility] Comment on above: Performed By: #### A MY, CMP, LIPA #### [facility] [address] [place] [address] Dr. Lawrence Wayne IG # 0.03 10e3/ul Normal 0.00-0.03 [facility] Comment on above: Performed By: #### A MY, CMP, LIPA #### [facility] [address] [place] [address] Dr. Lawrence Wayne IG % 0.4 % Normal 0.0-0.5 [facility] Comment on above: Performed By: #### A MY, CMP, LIPA #### [facility] [address] [place] [address] Dr. Lawrence Wayne LYMPH # 2.2 103/ul Normal 1.2-3.8 [facility] Comment on above: Performed By: #### A MY, CMP, LIPA #### [facility] [address] [address] [address] Lawrence Wayne Lymphocytes/100 WBC (Bld) 29.0 % Normal 20.5-60.0 [facility] Comment on above: Performed By: #### A MY, CMP, LIPA #### [facility] [address] [place] [address] Dr. Lawrence Wayne MANUAL DIFF REQ NO Normal [facility] Comment on above: Performed By: #### A MY, CMP, LIPA #### [facility] [address] [place] [address] Dr. Lawrence Wayne MCH (RBC) [Entitic mass] 29.8 pg Normal 26.7-34.0 [facility] Comment on above: Performed By: #### A MY, CMP, LIPA #### [facility] [address] [place] [address] Dr. Lawrence Wayne MCHC (RBC) [Mass/Vol] 32.5 g/dL Normal 29.9-35.2 [facility] Comment on above: Performed By: #### A MY, CMP, LIPA #### [facility] [address] [place] [address] Dr. Lawrence Wayne MCV (RBC) [Entitic vol] 91.8 fL Normal 81.0-99.0 [facility] Comment on above: Performed By: #### A MY, CMP, LIPA #### [facility] [address] [place] [address] Dr. Lawrence Wayne MONO # 0.9 103/ul Critically high 0.3-0.8 [facility] [facility] Comment on above: Performed By: #### A MY, CMP, LIPA #### [facility] [address] [place] [address] Dr. Lawrence Wayne Monocytes/100 WBC (Bld) 11.7 % Normal 1.7-12.0 [facility] Comment on above: Performed By: #### A MY, CMP, LIPA #### [facility] [place] [facility] [address] [place] [address] Dr. Lawrence Wayne NEUT # 4.3 103/ul Normal 1.4-6.5 [facility] Comment on above: Performed By: #### A MY, CMP, LIPA #### [facility] [place] [facility] [address] [place] [address] Dr. Lawrence Wayne Neutrophils/100 WBC (Bld) 57.0 % Normal 43.0-75.0 [facility] Comment on above: Performed By: #### A MY, CMP, LIPA #### [facility] [place] [facility] [address] [place] [address] Dr. Lawrence Wayne Platelet mean volume (Bld) [Entitic vol] 8.7 fL Critically low 9.5-13.5 [facility] Comment on above: Performed By: #### A MY, CMP, LIPA #### [facility] [place] [facility] [address] [place] [address] Dr. Lawrence Wayne PLT 351 103/ul Normal 150-450 [facility] Comment on above: Performed By: #### A MY, CMP, LIPA #### [facility] [place] [facility] [address] [place] [address] Dr. Lawrence Wayne RBC 5.00 106/ul Normal 4.20-5.40 [facility] Comment on above: Performed By: #### A MY, CMP, LIPA #### [facility] [place] [facility] [address] [place] [address] Dr. Lawrence Wayne WBC 7.6 103/ul Normal 4.0-11.0 [facility] Comment on above: Performed By: #### A MY, CMP, LIPA #### [facility] [place] [facility] [address] [place] [address] Dr. Lawrence Wayne LIPASEon 07-11-2021 Lipase [Catalytic activity/Vol] 93.0 U/L Normal 23.0-300.0 [facility] Comment on above: Performed By: #### A MY, CMP, LIPA #### [facility] [place] [facility] [address] [place] [address] Dr. Lawrence Wayne PROF 14(COMP METB)on Albumin [Mass/Vol] 4.1 g/dL Normal 3.5-5.0 [facility] Comment on above: Performed By: #### A MY, CMP, LIPA #### [facility] [place] [facility] [address] [address] [address] Lawrence Wayne Albumin/Globulin [Mass ratio] 1.1 {ratio} Normal [facility] Comment on above: Performed By: #### A MY, CMP, LIPA #### [facility] [place] [facility] [address] [address] [address] Lawrence Wayne ALP [Catalytic activity/Vol] 101 U/L Normal 38-126 [facility] Comment on above: Performed By: #### A MY, CMP, LIPA #### [facility] [place] [facility] [address] [address] [address] Lawrence Wayne ALT [Catalytic activity/Vol] 38 U/L Normal 9-52 [facility] Comment on above: Performed By: #### A MY, CMP, LIPA #### [facility] [place] [facility] [address] [address] [address] Lawrence Wayne Anion gap [Moles/Vol] 12.5 mmol/L Normal [facility] Comment on above: Performed By: #### A MY, CMP, LIPA #### [facility] [place] [facility] [address] [address] [address] Lawrence Wayne AST [Catalytic activity/Vol] 25 U/L Normal 14-36 [facility] Comment on above: Performed By: #### A MY, CMP, LIPA #### [facility] [place] [facility] [address] [address] [address] Lawrence Wayne Bilirubin [Mass/Vol] 0.8 mg/dL Normal 0.2-1.3 [facility] Comment on above: Performed By: #### A MY, CMP, LIPA #### [facility] [place] [facility] [address] [address] [address] Lawrence Wayne Calcium [Mass/Vol] 9.9 mg/dL Normal 8.4-10.2 [facility] Comment on above: Performed By: #### A MY, CMP, LIPA #### [facility] [address] [address] [address] Lawrence Wayne Chloride [Moles/Vol] 98 mmol/L Normal 98-107 [facility] Comment on above: Performed By: #### A MY, CMP, LIPA #### [facility] [address] [place] [address] Dr. Lawrence Wayne CO2 [Moles/Vol] 26.6 mmol/L Normal 22.0-30.0 [facility] Comment on above: Performed By: #### A MY, CMP, LIPA #### [facility] [address] [place] [address] Dr. Lawrence Wayne Creatinine [Mass/Vol] 1.12 mg/dL Critically high 0.52-1.04 [facility] Comment on above: Performed By: #### A MY, CMP, LIPA #### [facility] [address] [place] [address] Dr. Lawrence Wayne EGFR-AF ECUADOREAN 59 mL/min/1.73m2 Critically low >=60 [facility] Comment on above: Performed By: #### A MY, CMP, LIPA #### [facility] [address] [place] [address] Dr. Lawrence Wayne EGFR-NON AF ECUADOREAN 49 mL/min/1.73m2 Critically low >=60 [facility] Comment on above: Performed By: #### A MY, CMP, LIPA #### [facility] [address] [place] [address] Dr. Lawrence Wayne Globulin (S) [Mass/Vol] 3.7 g/dL Normal [facility] Comment on above: Performed By: #### A MY, CMP, LIPA #### [facility] [address] [place] [address] Dr. Lawrence Wayne Glucose [Mass/Vol] 117 mg/dL Critically high 74-106 [facility] Comment on above: Performed By: #### A MY, CMP, LIPA #### [facility] [address] [place] [address] Dr. Lawrence Wayne Potassium [Moles/Vol] 4.1 mmol/L Normal 3.4-5.0 [facility] Comment on above: Performed By: #### A MY, CMP, LIPA #### [facility] [place] [facility] [address], [place] [address] Dr. Lawrence Wayne Protein [Mass/Vol] 7.8 g/dL Normal 6.1-8.2 [facility] Comment on above: Performed By: #### A MY, CMP, LIPA #### [facility] [place] [facility] [address], [place] [address] Dr. Lawrence Wayne Sodium [Moles/Vol] 133 mmol/L Critically low 137-145 [facility] Comment on above: Performed By: #### A MY, CMP, LIPA #### [facility] [place] [facility] [address], [place] [address] Dr. Lawrence Wayne Urea nitrogen [Mass/Vol] 9.0 mg/dL Normal 7.0-17.0 [facility] Comment on above: Performed By: #### A MY, CMP, LIPA #### [facility] [place] [facility] [address], [place] [address] Dr. Lawrence Wayne Urea nitrogen/Creatini ne [Mass ratio] 8.0 mg/mg Normal [facility] Comment on above: Performed By: #### A MY, CMP, LIPA #### [facility] [place] [facility] [address], [place] [address] Dr. Lawrence Wayne Coding Summary.on 04-21-2018 Coding Summary. CODING DATE: [address] [facility] STATUS: Home (Routine DC) PAYOR: Medicare APC DESCRIPTION 5041 Level 2 Excision/ Biopsy/ Incision and Drainage ADMIT DX: REASON FOR VISIT DX: K86.1 Other chronic pancreatitis FINAL DX: PRINCIPAL: K86.1 Other chronic pancreatitis SECONDARY: K86.2 Cyst of pancreas R79.9 Abnormal finding of blood chemistry, unspecified R10.12 Left upper quadrant pain E55.9 Vitamin D deficiency, unspecified R10.11 Right upper quadrant pain R74.0 Nonspecific elevation of levels of transaminase and lactic acid dehydrogenase [LDH] R76.0 Raised antibody titer PYMT PROC APC STAT DESCRIPTION DOCTOR NAME DATE 76428 6584 J1 Biopsy of liver, needle; Luli Roy MD 04/12/2018 percutaneous 11613 Ultrasonic guidance for Luli Roy MD 04/12/2018 needle placement (eg, biopsy, aspiration, injection, localization device), imaging supervision and interpretation NOTE: The code number assigned matches the documented diagnosis and / or procedure in the patient's chart. However, the narrative phrase printed from the coding software may appear abbreviated, or result in slightly different terminology. Coded By: Rut Edmond Date Saved: 04/21/2018 04:57 pm Normal [facility] Coding Summary.on 04-16-2018 Coding Summary. CODING DATE: [address] [facility] STATUS: Home (Routine DC) PAYOR: Medicare APC DESCRIPTION 5571 Level 1 Imaging with Contrast ADMIT DX: REASON FOR VISIT DX: R10.12 Left upper quadrant pain FINAL DX: PRINCIPAL: R10.12 Left upper quadrant pain SECONDARY: R79.9 Abnormal finding of blood chemistry, unspecified K86.1 Other chronic pancreatitis K86.2 Cyst of pancreas E55.9 Vitamin D deficiency, unspecified PYMT PROC APC STAT DESCRIPTION DOCTOR NAME DATE NOTE: The code number assigned matches the documented diagnosis and / or procedure in the patient's chart. However, the narrative phrase printed from the coding software may appear abbreviated, or result in slightly different terminology. Coded By: Heather Godinez Date Saved: 04/16/2018 11:59 am Normal [facility] CT Abdomen w/ + w/o Contrast on 04-15-2018 CT Abdomen w/ + w/o Contrast Exam Date/Time:04/15/2018 09:39 EDTReason for Exam:CHRONIC PANCREATITIS, CYST OF PANCREASReportIMPRESSION: PUNCTATE PARENCHYMAL CALCIFICATION WITHIN THE INFERIOR ASPECT OF THEPANCREATIC HEAD.OTHERWISE, NEGATIVE CT OF THE ABDOMEN WITHOUT AND WITH CONTRAST AFTER PREVIOUSCHOLECYSTECTOMY.CLINICAL HISTORY: CHRONIC PANCREATITIS, CYST OF PANCREAS. COMPARISON: CT abdomen and pelvis 10/05/2017 and 10/06/2017.TECHNIQUE: Spiral imaging of the abdomen was performed before and after the infusionof approximately 100 mL of Isovue 300 contrast with pancreas protocol. All CT scans at this facility use dose modulation, iterative reconstruction, and/orweight based dosing when appropriate to reduce radiation dose to as low as reasonablyachievable.FINDINGS: The pancreas is normal in size, position and density, with a punctate parenchymalcalcification within the inferior aspect of the pancreatic head.There are no abnormal masses, other significant parenchymal calcifications, abnormalmasses, fluid collections, significant ductal or biliary dilatation, inflammatorychanges, or other findings of concern identified.The gallbladder has been removed.The liver, spleen, adrenal glands, kidneys, visualized great vessels, vessels andbowel loops, and the lung bases appear within normal limits. FINAL REPORT Dictated: 04/15/2018 3:30 pm Jj Pettit MD Signed (Electronic Signature): 04/15/2018 3:30 pm Signed by: Jj Pettit MD Transcribed by: [place] Technologist: PAU,Technical CommentsGFR (mL/min/1/73m2) 56Contrast: Isovue 300Contrast amount in ml's: 100Rectal Contrast Given? NoOral contrast amount in ml's: 450 Normal [facility] Creatinineon 04-15-2018 Creatinine mass conc 1.0 mg/dL Normal 0.5-1.3 [facility] Comment on above: Performed By: #### 2 201221, 5063739, 8751671, 3100242, 0200130, 7361737, 75690615 ####[facility] [address] [place] [address] eGFRon 04-15-2018 GFR/1.73 sq M predicted among blacks MDRD vol rate/area (S/P/Bld) mL/min/{1.73_m2} Normal >=59 [facility] Comment on above: Order Comment: Order added by Discern Expert. Result Comment: eGFR is race adjusted. AA=. Performed By: #### 2 483224, 2672270, 5925138, 5480747, 3972420, 3508805, 88628231 ####[facility] [address] [place] [address] GFR/1.73 sq M predicted among non-blacks MDRD vol rate/area (S/P/Bld) 56 mL/min/1.73 m2 Low >=59 [facility] Comment on above: Order Comment: Order added by Discern Expert. Result Comment: Product Development Chemist seng kidney disease could be indicated at eGFR's of less than 60 mL/min/1.73m2. Kidney failure is indicated at less than 15 mL/min/1.73m2. Performed By: #### 2 922892, 7945501, 1509043, 1900226, 5117799, 9831723, 31060424 ####[facility] [address] [place] [address] Lab Miscellaneouson 04-14-20 18 Status See Ref Lab Report Normal [facility] Comment on above: Performed By: #### 2 043754, 1174116, 6700512, 8474050, 7798091, 6637841, 47654500 ####[facility] [address] [place] [address] Status See Ref Lab Report Normal [facility] Comment on above: Performed By: #### 2 616164, 5519642, 3121086, 8396910, 5094449, 0420944, 34693074 ####[facility] [address] [place] [address] Status See Ref Lab Report Normal [facility] Comment on above: Performed By: #### 2 739008, 0650789, 7109745, 0927070, 7571692, 6085767, 67083307 ####[facility] [address] [place] [address] Inpatient Patient Summaryon 04-12-2018 [facility] Inst[facility] INFORMATION Name: [facility] Admitting Physician: Renetta Roy MDwilson health Physician: Luli Roy MD PCP: Gagan Ramey MD Diagnosis: Abnormal LFTs Comment: PATIENT EDUCATION INFORMATIONInstructions:Medication Leaflets:Follow up:With: Address: When: [facility], [address] [place] [address] [place] [address] Business (1) Within 1 to 2 weeks Type Location Start [facility] 04/12/2018 8:00 AM 04/12/2018 8:30 AM Confirmed MEDICATION LISTComment: Normal [facility] Patient Education - Texton 1 Patient Education - Text [facility] ANCAon 04-10-2018 Neutrophil cytoplasmic Ab.classic IF titer (S) <1:20 Invalid Interpretation Code Neg:<1:20 [facility] Comment on above: Performed By: #### 2 709834, 5146620, 2509718, 8604102, 1750504, 5792478, 98448249 ####[facility] [address] [place] [address] Neutrophil cytoplasmic Ab.perinuclear IF titer (S) <1:20 Invalid Interpretation Code Neg:<1:20 [facility] Comment on above: Result Comment: The presence of positive fluorescence exhibiting P-ANCA or C-ANCApatterns alone is not specific for the diagnosis of Latonia'sGranulomatosis (WG) or microscopic polyangiitis. Decisions abouttreatment should not be based solely on ANCA IFA results. TheInternational ANCA Group Consensus recommends follow up testing ofpositive sera with both NV-3 and MPO-ANCA enzyme immunoassays. Asmany as 5% serum samples are positive only by EIA.Ref. AM J Clin Pathol 1999;111:507-513. Performed By: #### 2 781928, 8263373, 4425509, 4722433, 6454450, 8717116, 24375855 ####[facility] [address] [place] [address] Neutrophil cytoplasmic Ab.perinuclear.at ypical IF titer (S) <1:20 Invalid Interpretation Code Neg:<1:20 [facility] Comment on above: Result Comment: The atypical pANCA pattern has been observed in a significantpercentage of patients with ulcerative colitis, primary sclerosingcholangitis and autoimmune hepatitis.Performed at: [facility] [address] [place], [place] [id number] PhD Rohith Dawson Performed By: #### 2 965931, 3780164, 0949616, 9943056, 3680656, 3225723, 26533552 ####[facility] [address] [place] [address] Vit Aon 04-10-2018 Retinol mass conc 50.2 microgram/dL Invalid Interpretation Code 36.4-108.0 [facility] Comment on above: Result Comment: Refe rence intervals for vitamin A determined from [employer] andNutrition Examination Survey, 8720-9480. Individuals with vitamin Aless than 20 ug/dL are considered vitamin A deficient and those withserum concentrations less than 10 ug/dL are considered severelydeficient.This test was developed and its performance characteristicsdetermined by [employer]. It has not been cleared or approvedby the Food and Drug Administration.Performed at: [address] [id number] MD Lillie García Performed By: #### 2 024703, 6127781, 5908271, 8418090, 7821431, 4121653, 53864657 ####[facility] [address] [place] [address] Vit William 04-10-2018 Alpha tocopherol mass conc 14.3 mg/L Invalid Interpretation Code 9.0-29.0 [facility] Comment on above: Performed By: #### 2 921051, 1834617, 2264516, 5685703, 4045085, 1025428, 46571701 ####[facility] [address] [place] [address] Gamma tocopherol mass conc 5.1 mg/L High 0.5-4.9 [facility] Comment on above: Result Comment: Refe rence intervals for alpha and gamma- tocopherol determined fromReinbeck Health and Nutrition Examination Survey, 8167-8278.Individuals with alpha-tocopherol levels less than 5.0 mg/L areconsidered vitamin E deficient.This test was developed and its performance characteristicsdetermined by [employer]. It has not been cleared or approvedby the Food and Drug Administration.Performed at: [address] [id number] MD Lillie García Performed By: #### 2 751411, 7688656, 8012630, 7091678, 3742812, 3244490, 71697187 ####[facility] [address] [place] [address] Coding Summary.on 04-08-2018 Coding Summary. CODING DATE: [address] [facility] STATUS: Home (Routine DC) PAYOR: Medicare ADMIT DX: REASON FOR VISIT DX: K86.1 Other chronic pancreatitis FINAL DX: PRINCIPAL: K86.1 Other chronic pancreatitis SECONDARY: K86.2 Cyst of pancreas R79.9 Abnormal finding of blood chemistry, unspecified R10.12 Left upper quadrant pain E55.9 Vitamin D deficiency, unspecified PROCEDURES DOCTOR NAME DATE NOTE: The code number assigned matches the documented diagnosis and / or procedure in the patient's chart. However, the narrative phrase printed from the coding software may appear abbreviated, or result in slightly different terminology. Coded By: Mer Bernardo Date Saved: 04/08/2018 02:54 pm Normal [facility] Lab Miscellaneouson 04-07-20 18 Test Name LC 1 Invalid Interpretation Code [facility] Comment on above: Performed By: #### 2 838983, 6898521, 0218208, 8421832, 8685112, 7220237, 57642883 ####[facility] [address] [place] [address] Test Name ALKM 1 Invalid Interpretation Code [facility] Comment on above: Performed By: #### 2 654670, 7952156, 8112160, 7659682, 8324713, 7786269, 32370344 ####[facility] [address] [place] [address] Test Name CHARLIE LIVER AG Invalid Interpretation Code [facility] Comment on above: Performed By: #### 2 210671, 7146839, 9272660, 9225007, 2402603, 7138366, 24594555 ####[facility] [address] [place] [address] Vitamin D 25 Hydroxyon 04-07 Calcidiol mass conc 28.3 ng/mL Low 30.0-100.0 [facility] Comment on above: Result Comment: Vit jurado D deficiency has been defined as a level of serum 25-OH vitamin D less than 20 ng/mL (1,2) by the [place] of Medicine and an Endocrine Society practice guideline. The Endocrine Society further defined vitamin D insufficiency as a level between 21 and 29 ng/mL (2). 1. IOM ([place] of Medicine). 2010. Dietary reference intakes for calcium and D. [place]: The National Academies Press. 2. Ernesto MF, Pierre [place], Gladys HOUSTON, et al. Evaluation, treatment, and prevention of vitamin D deficiency: an Endocrine Society clinical practice guideline. JCEM. 2010; 96 (7):1911-30. Performed By: #### 2 353421, 7578026, 3782389, 8653203, 7571383, 5825362, 20064713 ####[facility] [address] [place] [address] Main OR Intraoperative Recor don 11-10-2017 Main OR Intraoperative Record IntraOp Document Type FT Summary Primary Physician: Luli Roy MD Finalized Date/Time: 11/10/17 08:17:39 Pt. Name: ABDIAS SKIP Jarod Henry/Sex: 1955 Female Med Rec #: [id number] Physician: Luli Roy MD Financial #: [id number] Pt. Type: O Room/Bed: / Admit/Disch: 11/05/17 09:33:29 - 11/05/17 23:59:59 Institution: Case Times FT Entry 1 Patient Times In Room 11/05/17 10:30:00 Out Room 11/05/17 10:45:00 Procedure Times Start 11/05/17 10:32:00 Stop 11/05/17 10:42:00 Anesthesia Times Start 11/05/17 10:30:00 Stop 11/05/17 10:45:00 Time at [facility] 11/05/17 10:36:00 Last Modified By: Minerva RN, CNOR, Maria L 11/05/17 10:45:54 General Comments: 11/10/17 Chart open to review and send charges. 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 - Primary Time In 11/05/17 10:30:00 Time Out 11/05/17 10:45:00 Procedure COLONOSCOPY(.) Comments Last Modified By: Angelita Montana RN 11/05/17 10:45:56 Perioperative Protocols FT Pre-Care Text: Implements protective measures prior to operative or invasive procedure, confirms identity before the operative or invasive procedure, verifies operative procedure, surgical site, and laterality Entry 1 Procedure(s) COLONOSCOPY(.) Patient Identity Birthday, ID Band Verified (select at Check, Patient least 2): Participation Consents / H and P Anesthesia Consent, Operative Site N/A Verified HandP, Surgery/Procedure Marking Verified Consent Surgical Site No Laterality Verified n/a Verified Procedure Verified Yes Correct Patient Yes Position Verified Availability Equipment Prep Dry n/a Verified (If Applicable) PreOp Antibiotic No Time Out Froy Gore Jr., DO, Salam MD, Maher, Hartley RN, Renee, Rice CST, Molly Time Out Complete 11/05/17 10:31:00 Outcomes Met? Yes Last Modified By: Angelita Montana RN 11/05/17 10:32:02 Post-Care Text: The patient is free from signs and symptoms of injury caused by extraneous objects Allergy Information FT Pre-Care Text: Verifies allergies Entry 1 Allergies Reviewed? Yes Allergies Reviewed Self/Patient With Outcomes Met? Yes Last Modified By: Angelita Montana RN 11/05/17 07:05:44 Post-Care Text: The patient received appropriate medication(s) safely administered during the perioperative period Surgical Procedures FT Entry 1 Procedure Description Procedure COLONOSCOPY Modifiers . Surgeon Description COLONOSCOPY with ascending colon bx, rectal bx Primary Procedure Yes Primary Surgeon Luli Roy MD Start 11/05/17 10:32:00 Stop 11/05/17 10:42:00 Anesthesia Type General Surgical Service Gastroenterology Wound Class 2 - Clean-Contaminated Last Modified By: Angelita Montana RN 11/05/17 10:42:28 General Case Data FT Pre-Care Text: Classifies surgical wound, implements aseptic technique, initiates traffic control Entry 1 Case Information OR ENDO 1 FT Case Level Level 2 Wound Class 2 - Clean-Contaminated Specialty Gastroenterology ASA Class 2 Preop Diagnosis CHANGE IN BOWEL HABITS Postop Same As Preop No Postop Diagnosis Thrombosed external Outcomes Met? Yes hemorrhoid hemorrhoid, internal hemorrhoid Last Modified By: Angelita Montana RN 11/05/17 10:42:54 Post-Care Text: The patient is free from signs and symptoms of infection Skin Assessment (Pre Procedure) FT Pre-Care Text: Implements protective measures to prevent skin/ tissue injury due to thermal or mechanical sources Evaluates for signs and symptoms of physical injury to skin and tissue Entry 1 Skin Integrity Dry, Warm Skin Abnormality No Outcomes Met? Yes Last Modified By: Angelita Montana RN 11/05/17 07:06:05 Post-Care Text: The patient is free from signs and symptoms of injury caused by extraneous objects Patient Positioning FT Pre-Care Text: Identifies physical alterations that require additional precautions for procedure-specific positioning, verifies presence of prosthetics or corrective devices, positions the patient, evaluates the patient for signs and symptoms of injury as a result of positioning Entry 1 Procedure COLONOSCOPY(.) Body Position Lateral, right side up Feet Uncrossed? Yes Left Arm Position Resting at Side Right Arm Position Resting at Side Left Leg Position Extended Right Leg Position Extended Positioning Device Pillow Under Head Large, Safety Strap Press Points Checked Yes By Angelita Montana RN, Barrett Jr. DO, Clyde G. Outcomes Met? Yes Last Modified By: Angelita Montana RN 11/05/17 07:06:15 Post-Care Text: The patient is free from signs and symptoms of injury related to positioning Patient Care Devices FT Pre-Care Text: Implements protective measures to prevent skin/ tissue injury due to thermal or mechanical sources Entry 1 Entry 2 Equipment Type ENDOSCOPY VIDEO MONITOR CHARGE SURGERY SYSTEM[F] [F] Equipment Number [id number] Equipment Setting Outcomes Met? Yes Yes Last Modified By: Angelita Montana RN, RN, Renee 11/05/17 07:06:29 11/05/17 07:06:29 Post-Care Text: The patient is free from signs and symptoms of injury caused by extraneous objects Transport To OR FT Pre-Care Text: Transports according to individual needs. Evaluates for signs and symptoms of skin and tissue injury as a result of transfer or transport Entry 1 Via Cart By Angelita Montana RN Safety Precautions Safety Strap, Side Outcomes Met? Yes Rails Up Last Modified By: Angelita Montana RN 11/05/17 07:06:36 Post-Care Text: The patient is free from signs and symptoms of injury related to transfer/transport Departure From OR FT Pre-Care Text: Transports according to individual needs. Evaluates for signs and symptoms of skin and tissue injury as a result of transfer or transport. Entry 1 Via Cart Safety Precautions Safety Strap, Side Rails Up PostOp Destination PACU Transported By Angelita Montana RN Patient Status Stable Skin. Condition Intact, [place], Warm, and Dry Airway Maintenance Oxygen in Use? No Outcomes Met? 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 RHRn Medication Administration FT Pre-Care Text: Verifies allergies, administers prescribed medications and solutions, administers prescribed antibiotic therapy and immunizing agents as ordered, evaluates response to medications Administers prescribed medications and solutions Entry 1 Expiration Date Yes Outcomes Met? Yes Verified Last Modified By: Angelita Montana RN 11/05/17 07:07:58 Post-Care Text: The patient received appropriate medication(s) safely administered during the perioperative period For Mcfarland-Ronni please see scanned medication reconcilliation form for medications used at the field during the procedure. Cultures and Specimens FT Pre-Care Text: Manages specimen handling and disposition Manages culture specimen collection Entry 1 Cultures Ordered n/a Specimens Ordered Yes Specimen Disposition Designated OR Area Frozen Section Times Outcomes Met? Yes Last Modified By: Angelita Montana RN 11/05/17 10:37:27 Post-Care Text: The patient is free from signs and symptoms of injury caused by extraneous objects The patient is free from signs and symptoms of infection Case Comments Finalized By: SHAMAR Palma RN, Lou Ann Document Signatures Signed By: Angelita Montana RN 11/05/17 10:46 SHAMAR Palma RN, Lou Ann 11/10/17 08:17 Minerva PARRISH, VERONIKAOR, Estela Torres 11/10/17 08:17 [facility] Coding Summary.on 11-06-2017 Coding Summary. CODING DATE: [address] [facility] STATUS: Home (Routine DC) PAYOR: Medicare APC DESCRIPTION 5312 Level 2 Lower GI Procedures ADMIT DX: REASON FOR VISIT DX: R19.7 Diarrhea, unspecified FINAL DX: PRINCIPAL: R19.7 Diarrhea, unspecified SECONDARY: K64.8 Other hemorrhoids K64.4 Residual hemorrhoidal skin tags K86.1 Other chronic pancreatitis M19.90 Unspecified osteoarthritis, unspecified site K21.9 Gastro-esophageal reflux disease without esophagitis K58.9 Irritable bowel syndrome without diarrhea M32.9 Systemic lupus erythematosus, unspecified G43.909 Migraine, unspecified, not intractable, without status migrainosus M79.7 Fibromyalgia E78.5 Hyperlipidemia, unspecified PYMT PROC APC STAT DESCRIPTION DOCTOR NAME DATE 52670 5312 T Colonoscopy, flexible; Luli Roy MD 11/05/2017 with biopsy, single or multiple 61838 Anesthesia for lower Luli Roy MD 11/05/2017 intestinal endoscopic procedures, endoscope introduced distal to duodenum; not otherwise specified NOTE: The code number assigned matches the documented diagnosis and / or procedure in the patient's chart. However, the narrative phrase printed from the coding software may appear abbreviated, or result in slightly different terminology. Coded By: Heather Godinez Date Saved: 11/06/2017 04:20 pm [facility] History and Physicalon 11-05 History and Physical Date: 10/22/2017 3:00 PMPatient Name: Skip Seals #: [id number]: FemaleDOB (age): 1955 (62)Provider: Maylin Duarte Physician: Anitha Ramey MD[address] [place] [address] (phone) (fax)Chief Complaint: Follow up to EGDHistory of Present Illness:62 years old white female with history of chronic pancreatitis proven with EUS, G her pancreatitis is unclear, she had positiveANA but negative IgG4, she had frequent episodes of acute pancreatitis also, ERCP with biliary sphincterotomy left to onlytemporary improvement, she was started on pancreatic enzymes but patient stopped it secondary to back pain , patientcontinued to have generalized abdominal pain and back pain with diarrhea alternating with constipation, was recently startedon Elenazess by Dr. Kerr for possible diarrhea of overflowPast Medical HistoryMedical Conditions: ArthritisBronchitisColitisDivertic ulitisDiverticulosisGERDIBSLupusMe aslesMigrainesMumpsPneumoniaRecurr ent U.T.I.TonsillitisSurgical Procedures: Ovary surgeryGallbladder removedHysterectomyC-SectionColono scopyTonsillectomyAppendectomyMedi cations: gabapentin 300 mgLinzess 72 mcg Take 1 capsule by mouth once a dayMiralax 17 gram/dose Take 1 cap with any liquid by mouth every a dayomeprazole 40 mg Take capsule by mouth once a dayAllergies: Adhesive TapeAspirinCipromorphinePhenerganS tadolSocial HistoryAlcohol: NoneTobacco: Smoker, current status unknownPrinted on 10/30/2017 Skip Hong, [id number], 1955 Page 1 of 4Printed on 10/30/2017 Skip Hong, [address]22, 1955Drugs: NoneExercise: walking daily.Caffeine: tea and coffee.Marital Status: MarriedFamily History Brother: Ill;Sister: Ill;Mother: ;Father: ; at age 72; Diagnosed with Ulcerative Colitis;Review of Systems:Cardiovascular: Denies chest pain, dyspnea with exercise, irregular heart beat, orthopnea, palpitations, peripheraledema, syncope.Constitutional: Denies fatigue, fever, loss of appetite, malaise, sweats, weight gain, Arthritis, weight loss, exhaustion,chills.Eyes: Denies double vision, loss of vision, photophobia, blurred vision, pain, wearing glasses/contacts.Gastrointestinal: Denies abdominal pain, abdominal swelling, anal rectal pain, belching, black stools, bloating, blood instools, change in bowel habits, constipation, dairy intolerance, diarrhea, difficulty swallowing, gas,heartburn, hemmorrhoids, jaundice, mucous in stool, nausea, rectal bleeding, rectal urgency, stoolincontinence, stomach cramps, straining, vomiting, weight loss.Genitourinary: Denies dark urine, decrease in urine flow, dysuria, frequent urinary infections, frequent urination,hematuria, nocturia, urethral discharge or incontinence, sexual difficulty, sexual transmitted diseases,kidney disease, kidney stones, pain with urination.Respiratory: Denies asthma, cough, dyspnea, excessive sputum, hemoptisis, shortness of breath with exercise,wheezing, coughing up blood.Vital Signs:BP(mmHg)Pulse(ppm)Rhythm Weight (lbs/oz) Height (ft/in) BMI Resp/min Sblw138/70 91 Regular 132 / 5 / 3 23.38 12 98.3 (F)Physical Exam:Constitutional:Appearance: well developed, well nourished, normal habitus, no deformities, in no acute distress..Skin:Inspection: no rashes, ulcers, icterus or other lesions; no clubbing or telangiectasias..Eyes:Conjunctivae /lids: normal conjunctivae and lids..Pupils/irises: symmetrical, normoreactive to light, normal accommodation and size..ENMT:Hearing: within normal limits.Lips/teeth/gums: normal oral mucosa,lips and gums; good dentition.Neck:Neck: normal motion, central trachea.Respiratory:Percussion: thorax normoresonant.Auscultation: normal breath sounds; no rubs, wheezes, rale or ronchi.Cardiovascular:Auscultation : normal rhythm, S1 and S2; no rubs, murmurs or gallop.Peripheral: no edema, varicocities or cyanosis..Gastrointestinal/Abdomen :Abdomen: normal consistency and bowel sounds; generalized abdominal tenderness.Liver/Spleen: normal size and consistency, not palpable.Hernias: no hernias appreciated.Musculoskeletal:Gait/s tation: normal gait and station.Digits/nails: no clubbing, cyanosis, petechiae or other inflammatory conditions.Psychiatric:Judgment/in sight: within normal limits.Orientation: oriented to time, space and person.Memory: within normal limits for recent and remote events.Printed on 10/30/2017 Skip Hong, [id number], 1955 Page 2 of 4Printed on 10/30/2017 Skip Hong, 90670, 1955Mood and affect: no evidence of depression, anxiety or agitation.Impressions: Chronic pancreatitis, mild chronic pancreatitis on EUS, positive AMIRA, negative IgG4, she has ahistory of lupus, patient continues despite above, we will give her a trial of prednisone and wewill monitor for improvementCBD Stones , status post ERCP and biliary sphincterotomyChange in bowel habits, proceed with colonoscopyPlan: Colonoscopy will be performed at [facility] .Prednisone 10 mg Take 4 tablets daily for 2 wks.Take 3 daily for 2 wks.Take 2daily for 2wks.Take 1 daily for 2 wks. then 0.5 daily for 1 wk then stopRisk & Medical Necessity: Diagnosis and management options are Minimal. The amount of data reviewed and/orordered is Minimal/None. The level of risk is Minimal.Luli Roy MD Skip Hong, [id number], 1955 Page 3 of 4Printed on 10/30/2017 Skip Hong, 93906, 1955Printed on 10/30/2017 Skip Hong, 15940, 1955 Page 4 of 4Printed on 10/30/2017 Skip Hong, 15678, 1955no change Normal [facility] Comment on above: Result Comment: Elec tronically Signed By: Luli Roy MD\.br\Date and Time Signed: 11/05/17 10:27 EDT Inpatient Patient Summaryon 11-05-2017 Inpatient [facility] Dis[facility] InstructionsPERSON INFORMATION Name: SKIP HONG [facility] Admitting Physician: Blossom Roy MD Physician: Luli Roy MD PCP: Gagan Ramey MD Diagnosis: Internal hemorrhoids Comment: PATIENT EDUCATION INFORMATIONInstructions:Medication Leaflets:Follow up:With: Address: When: Luli Roy [facility], [address] [place] [address] [place] [address] Business (1) Within 1 to 2 weeks MEDICATION LISTComment: Rodrick Mcfarland [facility] Main OR PACU I Recordon 10-14 Main OR PACU I Record PACU Phase I Document Type FT Summary Primary Physician: Luli Roy MD Finalized Date/Time: 11/05/17 12:12:56 Pt. Name: SKIP HONG Jarod GonzalezB./Sex: 1955 Female Med Rec #: [id number] Physician: Luli Roy MD Financial #: [id number] Pt. Type: O Room/Bed: / Admit/Disch: 11/05/17 09:33:29 - Institution: Case Times PACU I FT Pre-Care Text: Identifies barriers to communication and implements measures to provide psychological support Develops individualized plan of care, and ensures continuity of care Maintains patient's dignity and privacy, and maintains patient confidentiality Identifies and reports philosophical, cultural, and spiritual beliefs and values Identifies individual values and wishes concerning care Implements aseptic technique, and administers prescribed antibiotic therapy and immunizing agents as ordered Evaluates postoperative tissue perfusion Implements thermoregulation measures, and monitors body temperature Evaluates postoperative respiratory status Evaluates postoperative cardiac status Evaluates postoperative neurological status Assesses pain control, collaborated in initiating patient-controlled analgesia and implements alternative methods of pain control Verifies allergies, administers prescribed medications and solutions, evaluates response to medications Entry 1 In PACU I 11/05/17 10:45:00 Discharge from PACU 11/05/17 11:15:00 I Outcomes Met? Yes Last Modified By: Shayla Mckenzie RN 11/05/17 12:10:43 Post-Care Text: The patient demonstrates knowledge of the expected response to the operative or invasive procedure The patient's care is consistent with the individualized perioperative plan of care The patient's right to privacy is maintained The patient's value system, lifestyle, ethnicity, and culture are considered, respected, and incorporated into the perioperative plan of care The patient participates in decisions affecting his or her perioperative plan of care The patient is free from signs and symptoms of infection The patient has wound/tissue perfusion consistent with or improved from baseline levels established preoperatively The patient is at or returning to normothermia at the conclusion of the immediate postoperative period The patient's respiratory function is consistent with or improved from baseline levels established preoperatively The patient's cardiovascular status is consistent with or improved from baseline levels established preoperatively The patient's cardiovascular status is consistent with or improved from baseline levels established preoperatively The patient demonstrates and/or reports adequate pain control throughout the perioperative period The patient received appropriate medication(s), safely administered during the perioperative period Acuity Level PACU I FT Entry 1 Start Time 11/05/17 10:45:00 Stop Time 11/05/17 11:15:00 Acuity Level Acuity Level I Last Modified By: Shayla Mckenzie RN 11/05/17 12:10:52 Finalized By: Shayla Mckenzie RN Document Signatures Signed By: Shayla Mckenzie RN 11/05/17 12:10 Shayla Mckenzie RN 11/05/17 12:12 Normal [facility] Patient Education - Texton 0 11-05-2017 Patient Education - Text [facility] Progress Note-Physicianon Protein mass conc Patient: SKIP HONG Age: 62 years Sex: Female : 1955 Associated Diagnoses: None Author: Froy Gore Jr., DO Postoperative Information Post Operative Note: Post Anesthesia Care Unit. Anesthetic utilized: General. Health Status Allergies: Allergic Reactions (Selected)Severity Not DocumentedAspirin- Anaphylactic reaction.Ciprofloxacin- Rash and rash.Dilaudid- Rash.Hydromet- Rash.Lodine- Rash.Morphine- Stomach pain.Percocet 5/325- Rash.Phenergan- Abdominal spasms.Stadol- Rash.Tape- Rash. Problem list: All ProblemsRare disorder causing involuntary movements and spasms / SNOMED CT 022841546 / ConfirmedesophagealDiverticulosis / SNOMED CT 6385614166 / ConfirmedFrozen shoulder / SNOMED CT 4453931831 / ConfirmedRIGHTIBS (irritable bowel syndrome) / SNOMED CT 08941381 / ConfirmedThoracic outlet syndrome / SNOMED CT 875276015 / ConfirmedbilateralH/O pleurisy / SNOMED CT 180321618 / ConfirmedC. difficile diarrhea / SNOMED CT 0777013361 / [facility] 2 to 3 years agoRSD (reflex sympathetic dystrophy) / SNOMED CT 5700141255 / ConfirmedPancreatitis, acute / SNOMED CT 883609727 / ConfirmedAcid reflux / SNOMED CT 538444586 / ConfirmedFibromyalgia / SNOMED CT 36693208 / ConfirmedPancreatic cyst / SNOMED CT 57276006 / ConfirmedMigraines / SNOMED CT 01730801 / ConfirmedArthritis / SNOMED CT 0435651 / Confirmedneck and lower backChronic colitis / SNOMED CT 38000286 / ConfirmedLupus / SNOMED CT 47996197 / ConfirmedResolved: Pancreatitis / SNOMED CT 873740636Wrvwsxpi: Thoracic outlet syndrome / SNOMED CT [id number] 20Resolved: IBS (irritable bowel syndrome) / SNOMED CT [id number]-[id number] 4CResolved: SLE (systemic lupus erythematosus) / SNOMED CT [id number]-[id number] CFResolved: Endometriosis / SNOMED CT 24C2WCE9-1JIS-[id number]-[id number]-9Z44L7W0N3 Z0Ziicmygh: Hyperlipidemia / SNOMED CT 31681386Exnneevc: Fibromyalgia / SNOMED CT N2S344T6-U86Y-2336-50T4-8112535R60 X3Mmgnsewr: RSD upper limb / SNOMED CT [id number] C1 Physical Examination Vital Signs 11/05/2017 11:15 EDT Heart Rate Monitored 73 bpm Respiratory Rate Monitored 12 br/min Systolic Blood Pressure 113 mmHg Diastolic Blood Pressure 66 mmHg SpO2 100 % 11/05/2017 11:00 EDT Heart Rate Monitored 58 bpm LOW Respiratory Rate Monitored 17 br/min Systolic Blood Pressure 109 mmHg Diastolic Blood Pressure 68 mmHg SpO2 100 % 11/05/2017 10:55 EDT Heart Rate Monitored 62 bpm Respiratory Rate Monitored 19 br/min Systolic Blood Pressure 101 mmHg Diastolic Blood Pressure 64 mmHg SpO2 99 % 11/05/2017 10:50 EDT Heart Rate Monitored 66 bpm Respiratory Rate Monitored 19 br/min Systolic Blood Pressure 94 mmHg Diastolic Blood Pressure 58 mmHg LOW SpO2 99 % 11/05/2017 10:45 EDT Temperature Temporal Artery 36.2 DegC LOW Heart Rate Monitored 70 bpm Respiratory Rate Monitored 11 br/min Systolic Blood Pressure 86 mmHg LOW Diastolic Blood Pressure 59 mmHg LOW Blood Pressure Location Left arm SpO2 99 % Pain assessment: Controlled. General: Alert and oriented, No acute distress, No nausea. Adequate hydration.. Respiratory: Adequate air exchange.. Cardiovascular: stable. Neurologic: Normal sensory. Review / Management Condition: Stable. Assessment Anesthetic outcome No anesthetic complications noted. Plan Transfer/ Discharge: Condition stable. Normal Mcfarland [facility] Comment on above: Result Comment: Elec tronically Signed By: Froy Gore Jr., DO\.br\Date and Time Signed: 11/05/17 11:52 EDT Protein mass conc Patient: SKIP HONG Age: 62 years Sex: Female : 1955 Associated Diagnoses: None Author: Froy Gore Jr., DO Postoperative Information Post Operative Note: Post Anesthesia Care Unit. Anesthetic utilized: General. Health Status Allergies: Allergic Reactions (Selected)Severity Not DocumentedAspirin- Anaphylactic reaction.Ciprofloxacin- Rash and rash.Dilaudid- Rash.Hydromet- Rash.Lodine- Rash.Morphine- Stomach pain.Percocet 5/325- Rash.Phenergan- Abdominal spasms.Stadol- Rash.Tape- Rash. Problem list: All ProblemsRare disorder causing involuntary movements and spasms / SNOMED CT 681497376 / ConfirmedesophagealDiverticulosis / SNOMED CT 6233003558 / ConfirmedFrozen shoulder / SNOMED CT 2127602779 / ConfirmedRIGHTIBS (irritable bowel syndrome) / SNOMED CT 58071973 / ConfirmedThoracic outlet syndrome / SNOMED CT 627406950 / ConfirmedbilateralH/O pleurisy / SNOMED CT 120777053 / ConfirmedC. difficile diarrhea / SNOMED CT 9255758334 / [facility] 2 to 3 years agoRSD (reflex sympathetic dystrophy) / SNOMED CT 9252396187 / ConfirmedPancreatitis, acute / SNOMED CT 135360753 / ConfirmedAcid reflux / SNOMED CT 137607598 / ConfirmedFibromyalgia / SNOMED CT 32897532 / ConfirmedPancreatic cyst / SNOMED CT 99145956 / ConfirmedMigraines / SNOMED CT 71659148 / ConfirmedArthritis / SNOMED CT 2607218 / Confirmedneck and lower backChronic colitis / SNOMED CT 88937586 / ConfirmedLupus / SNOMED CT 71079655 / ConfirmedResolved: Pancreatitis / SNOMED CT 895355495Isgoagwa: Thoracic outlet syndrome / SNOMED CT [id number] 20Resolved: IBS (irritable bowel syndrome) / SNOMED CT [id number] 4CResolved: SLE (systemic lupus erythematosus) / SNOMED CT [id number] CFResolved: Endometriosis / SNOMED CT [id number]-[id number]-[id number] D7Shtxihhl: Hyperlipidemia / SNOMED CT 68839714Rnxpzfgs: Fibromyalgia / SNOMED CT P3P735X7-W16G-[id number] W8Ttbghkxg: RSD upper limb / SNOMED CT [id number] C1 Physical Examination Vital Signs 11/05/2017 11:15 EDT Heart Rate Monitored 73 bpm Respiratory Rate Monitored 12 br/min Systolic Blood Pressure 113 mmHg Diastolic Blood Pressure 66 mmHg SpO2 100 % 11/05/2017 11:00 EDT Heart Rate Monitored 58 bpm LOW Respiratory Rate Monitored 17 br/min Systolic Blood Pressure 109 mmHg Diastolic Blood Pressure 68 mmHg SpO2 100 % 11/05/2017 10:55 EDT Heart Rate Monitored 62 bpm Respiratory Rate Monitored 19 br/min Systolic Blood Pressure 101 mmHg Diastolic Blood Pressure 64 mmHg SpO2 99 % 11/05/2017 10:50 EDT Heart Rate Monitored 66 bpm Respiratory Rate Monitored 19 br/min Systolic Blood Pressure 94 mmHg Diastolic Blood Pressure 58 mmHg LOW SpO2 99 % 11/05/2017 10:45 EDT Temperature Temporal Artery 36.2 DegC LOW Heart Rate Monitored 70 bpm Respiratory Rate Monitored 11 br/min Systolic Blood Pressure 86 mmHg LOW Diastolic Blood Pressure 59 mmHg LOW Blood Pressure Location Left arm SpO2 99 % Pain assessment: Controlled. General: Alert and oriented, No acute distress, No nausea. Adequate hydration.. Respiratory: Adequate air exchange.. Cardiovascular: stable. Neurologic: Normal sensory. Review / Management Condition: Stable. Assessment Anesthetic outcome No anesthetic complications noted. Plan Transfer/ Discharge: Condition stable. Normal [facility] Comment on above: Result Comment: Elec tronically Signed By: Froy Gore Jr., DO\.br\Date and Time Signed: 11/05/17 11:37 EDT Protein mass conc Patient: SKIP HONG Age: 62 years Sex: Female : 1955 Associated Diagnoses: None Author: Froy Gore Jr., DO Preoperative Information Anesthesia history: Patient History: No prior problems.. Re-eval prior to induction: Inital eval reviewed: No significant interval change. Anesthesia results Review of Systems Constitutional: Negative except as documented in history of present illness. Cardiovascular: Negative except as documented in history of present illness. Respiratory: Negative. Health Status Allergies: Allergic Reactions (Selected)Severity Not DocumentedAspirin- Anaphylactic reaction.Ciprofloxacin- Rash and rash.Dilaudid- Rash.Hydromet- Rash.Lodine- Rash.Morphine- Stomach pain.Percocet 5/325- Rash.Phenergan- Abdominal spasms.Stadol- Rash.Tape- Rash., Allergies (10) Active Reactionaspirin Anaphylactic reactionciprofloxacin RashDilaudid RashHydromet RashLodine Rashmorphine Stomach painPercocet 5/325 RashPhenergan Abdominal spasmsStadol RashTape Rash Current medications: (Selected) Inpatient MedicationsOrderedLactated Ringers IV Charlie 1000 mL 1,000 mL: 1,000 mL, IV, 100 mL/hr, Routine, Start date 11/05/17 9:55:00 EDT, 10 hour(s), Total volume (mL): 1,000Sodium Chloride 0.9% IV Charlie 1000 mL 1,000 mL: 1,000 mL, IV, 20 mL/hr, Routine, Start date 11/05/17 9:31:00 EDT, 50 hour(s), Total volume (mL): 1,000Documented MedicationsDocumentedCreon 24,000 units oral delayed release capsule: = 3 cap(s), Oral, TID, Refills(s) 0Linzess: 145 microgram, Oral, Daily, Refills(s) 0, ConstipationMiraLax: 17 gram, Oral, Daily, Refill(s) 0, ConstipationNitro 0.4 mg Tab: = 1 tab(s), SubLingual, q5min, PRN Chest pain, # 25 tab(s), Refills(s) 3, Chest painNorco 5/325 Tab: 1 tab(s), Oral, q6hr as needed for pain, Refill(s) 0, PainTylenol Extra Strength 500 mg oral tablet: 1,000 mg = 2 tab(s), Oral, PRN as needed for pain, Refills(s) 0, Paingabapentin: 300 mg, Oral, Bedtime, Refills(s) 0, Painibuprofen 200 mg Tab: 400 mg = 2 tab(s), Oral, q4hr, Refills(s) 0, Painomeprazole: 20 mg, Oral, Daily, Refills(s) 0, Control of stomach acidpredniSONE 5 mg Tab: 10 mg = 2 tab(s), Oral, Bedtime, Refills(s) 0promethazine 25 mg Tab: 25 mg = 1 tab(s), Oral, TID, PRN as needed for nausea/vomitingtraMADOL 50 mg Tab: 50 mg = 1 tab(s), Oral, q6hr, PRN Pain, Refills(s) 0, Pain Histories Past Medical History: ResolvedFibromyalgia ([id number] 0C0): Resolved.IBS (irritable bowel syndrome) ([id number] A4C): Resolved.Pancreatitis (347213187): Resolved.Endometriosis ([id number]-1T10K3S8O 3C4): Resolved.Thoracic outlet syndrome ([id number] 020): Resolved.SLE (systemic lupus erythematosus) ([id number] 8CF): Resolved.RSD upper limb ([id number] 9C1): Resolved.Hyperlipidemia (17133512): Resolved. Family History: No family history items have been selected or recorded. Procedure history: History of tonsillectomy (7068207421). section (26659162).Laparoscopic right ovarian cystectomy (5164380373).Thoracic outlet syndrome ([id number] 020).Comments:01/30/2016 12:01 - Ibrahima PARRISH, MarshabilaterallyHistory of hysterectomy.. (8080110943).Laparoscope (739852800).Gallbladder (834097566).Endoscopy (4618519935).Colonoscopy (671472815).mri/ct abd.right shoulder scope.Cholecystectomy (28568356). Social History Social & Psychosocial HabitsAlcohol Comment: denies current use - 10/05/2017 09:18 Samantha Mcclure RN A010/06/2017 Risk Assessment: Denies Alcohol UseSubstance Abuse01/30/2016 Risk Assessment: Denies Substance Abuse Comment: denies current use - 10/05/2017 09:18 Samantha Mcclure RN TJdvhroo49/17/2016 Risk Assessment: Denies Tobacco Use Comment: denies current use - 10/05/2017 09:18 Samantha Mcclure RN AKim Physical Examination Measurements from flowsheet : Measurements 11/05/2017 09:29 EDT Height/Length Measured 160.02 cm Body Mass Index Measured 23.39 kg/m2 Weight Measured 59.9 kg Respiratory: Lungs are clear to auscultation. Cardiovascular: Regular rhythm. Plan [employer]hesiologists (ASA) physical status classification: Class II. Anesthetic Preoperative Plan Anesthesia: General. . Anesthetic plan, risks, benefits, and alternatives discussed with the patient and/or family. Patient verbalized understanding. [facility] Comment on above: Result Comment: Elec tronically Signed By: Froy Gore Jr., DO.julian\Date and Time Signed: 11/05/17 10:27 EDT Main OR Intraoperative Recor don 10-08-2017 Main OR Intraoperative Record IntraOp Document Type FT Summary Primary Physician: Luli Roy MD Finalized Date/Time: 10/08/17 13:15:06 Pt. Name: SKIP HONG Bk/Sex: 1955 Female Med Rec #: [id number] Physician: Luli Roy MD Financial #: [id number] Pt. Type: O Room/Bed: / Admit/Disch: 10/07/17 08:32:02 - 10/07/17 23:59:59 Institution: Case Times FT Entry 1 Patient Times In Room 10/07/17 09:29:00 Out Room 10/07/17 09:38:00 Procedure Times Start 10/07/17 09:32:00 Stop 10/07/17 09:34:00 Anesthesia Times Start 10/07/17 09:29:00 Stop 10/07/17 09:38:00 Last Modified By: Esthela Franco CST 10/07/17 09:38:07 General Comments: 10/08/2017 Chart opened to review and send charges Jose ratliff Case Attendance FT Entry 1 Entry 2 Entry 3 Case Attendee Jeyson Cordova DO, Kaden Roy MD, Luli Ramirez RN, Jeana Howell Role Performed Anesthesiologist of Surgeon - Primary Power Transformer Repair Supervisor - Primary Record Time In 10/07/17 09:29:00 10/07/17 09:29:00 10/07/17 09:29:00 Time Out 10/07/17 09:38:00 10/07/17 09:38:00 10/07/17 09:38:00 Procedure EGD(.) EGD(.) EGD(.) Comments Last Modified By: James RN, Jeana Ramirez RN, Jeana Ramirez RN, Jeana Howell 10/07/17 09:38:11 10/07/17 09:38:11 10/07/17 09:38:11 Entry 4 Entry 5 Case Attendee Lexie Shea CST, Liz Olivera Role Performed Scrub - Other Scrub - Primary Time In 10/07/17 09:33:00 10/07/17 09:29:00 Time Out 10/07/17 09:38:00 10/07/17 09:38:00 Procedure EGD(.) EGD(.) Comments Assist in room. Last Modified By: Tyrel PARRISH, Santa Ramirez RN, Jeana Howell 10/07/17 09:40:20 10/07/17 09:38:11 Perioperative Protocols FT Pre-Care Text: Implements protective measures prior to operative or invasive procedure, confirms identity before the operative or invasive procedure, verifies operative procedure, surgical site, and laterality Entry 1 Procedure(s) EGD(.) Patient Identity Birthday, ID Band Verified (select at Check, Patient least 2): Participation Consents / H and P Anesthesia Consent, Operative Site N/A Verified HandP, Surgery/Procedure Marking Verified Consent Surgical Site No Laterality Verified n/a Verified Procedure Verified Yes Correct Patient Yes Position Verified Availability Equipment, Medication Prep Dry n/a Verified (If Applicable) PreOp Antibiotic No Time Out Jeyson Cordova DO, Kaden A, Given Participants Luli Roy MD, Ebel RN, Sandi Torres HR ANALYST, Liz M Time Out Complete 10/07/17 09:30:00 Outcomes Met? Yes Last Modified By: Jeana Ramirez RN 10/07/17 09:31:47 Post-Care Text: The patient is free from signs and symptoms of injury caused by extraneous objects Allergy Information FT Pre-Care Text: Verifies allergies Entry 1 Allergies Reviewed? Yes Allergies Reviewed Self/Patient With Outcomes Met? Yes Last Modified By: Jeana Ramirez RN 10/07/17 07:22:27 Post-Care Text: The patient received appropriate medication(s) safely administered during the perioperative period Surgical Procedures FT Entry 1 Procedure Description Procedure EGD Modifiers . Surgeon Description EGD with gastric biopsy Primary Procedure Yes Primary Surgeon Luli Roy MD Start 10/07/17 09:32:00 Stop 10/07/17 09:34:00 Anesthesia Type General Surgical Service Gastroenterology Wound Class 2 - Clean-Contaminated Last Modified By: Jeana Ramirez RN 10/07/17 09:35:31 General Case Data FT Pre-Care Text: Classifies surgical wound, implements aseptic technique, initiates traffic control Entry 1 Case Information OR ENDO 1 FT Case Level Level 2 Wound Class 2 - Clean-Contaminated Specialty Gastroenterology ASA Class 2 Preop Diagnosis RIGHT UPPER QUAD PAIN, Postop Same As Preop No HEARTBURN, CHRONIC HEP C Postop Diagnosis Normal EGD study Outcomes Met? Yes Last Modified By: Jeana Ramirez RN 10/07/17 09:37:58 Post-Care Text: The patient is free from signs and symptoms of infection Skin Assessment (Pre Procedure) FT Pre-Care Text: Implements protective measures to prevent skin/ tissue injury due to thermal or mechanical sources Evaluates for signs and symptoms of physical injury to skin and tissue Entry 1 Skin Integrity Intact, Pawlet, Warm, and Skin Abnormality No Dry Outcomes Met? Yes Last Modified By: Jeana Rmairez RN 10/07/17 07:23:06 Post-Care Text: The patient is free from signs and symptoms of injury caused by extraneous objects Patient Positioning FT Pre-Care Text: Identifies physical alterations that require additional precautions for procedure-specific positioning, verifies presence of prosthetics or corrective devices, positions the patient, evaluates the patient for signs and symptoms of injury as a result of positioning Entry 1 Procedure EGD(.) Body Position Lateral, right side up Feet Uncrossed? Yes Left Arm Position Resting at Side Right Arm Position Resting at Side Left Leg Position Extended Right Leg Position Extended Positioning Device Safety Strap, Pillow Under Head Large Press Points Checked Yes By Jeana Ramirez RN, Marsh Jr DO, James A Outcomes Met? Yes Last Modified By: Jeana Ramirez RN 10/07/17 07:23:21 Post-Care Text: The patient is free from signs and symptoms of injury related to positioning Patient Care Devices FT Pre-Care Text: Implements protective measures to prevent skin/ tissue injury due to thermal or mechanical sources Entry 1 Entry 2 Equipment Type ENDOSCOPY VIDEO MONITOR CHARGE SURGERY SYSTEM[F] [F] Equipment Number [id number] Equipment Setting Outcomes Met? Yes Yes Last Modified By: Jeana Ramirez RN, RN, Trisha A 10/07/17 07:23:38 10/07/17 07:23:38 Post-Care Text: The patient is free from signs and symptoms of injury caused by extraneous objects Transport To OR FT Pre-Care Text: Transports according to individual needs. Evaluates for signs and symptoms of skin and tissue injury as a result of transfer or transport Entry 1 Via Cart By Jeana Ramirez RN Safety Precautions Side Rails Up Outcomes Met? Yes Last Modified By: Jeana Ramirez RN 10/07/17 07:23:46 Post-Care Text: The patient is free from signs and symptoms of injury related to transfer/transport Departure From OR Pre-Care Text: Transports according to individual needs. Evaluates for signs and symptoms of skin and tissue injury as a result of transfer or transport. Entry 1 Via Cart Safety Precautions Side Rails Up PostOp Destination PACU Transported By Jeana Ramirez RN Patient Status Stable Skin. Condition Intact, Pawlet, Warm, and Dry Airway Maintenance Oxygen in Use? No Airway Device N/A Outcomes Met? Yes Last Modified By: Jeana Ramirez RN 10/07/17 07:24:09 Post-Care Text: The patient is free from signs and symptoms of injury related to transfer/transport General Comments: Report given to SCALP TREATMENT SPECIALIST./AMINAprogram engineer Administration FT Pre-Care Text: Verifies allergies, administers prescribed medications and solutions, administers prescribed antibiotic therapy and immunizing agents as ordered, evaluates response to medications Administers prescribed medications and solutions Entry 1 Expiration Date Yes Outcomes Met? Yes Verified Last Modified By: Jeana Ramirez RN 10/07/17 07:24:18 Post-Care Text: The patient received appropriate medication(s) safely administered during the perioperative period For [place] please see scanned medication reconcilliation form for medications used at the field during the procedure. Cultures and Specimens FT Pre-Care Text: Manages specimen handling and disposition Manages culture specimen collection Entry 1 Cultures Ordered n/a Specimens Ordered Yes Specimen Disposition Designated OR Area Frozen Section Times Outcomes Met? Yes Last Modified By: Jeana Ramirez RN 10/07/17 09:33:07 Post-Care Text: The patient is free from signs and symptoms of injury caused by extraneous objects The patient is free from signs and symptoms of infection Case Comments Finalized By: Esthela Franco CST Document Signatures Signed By: Santa Sarah RN 10/07/17 09:40 Esthela Franco CST 10/08/17 13:15 Normal [facility] Progress Note-Physicianon Protein mass conc Patient: SKIP HONG Age: 62 years Sex: Female : 1955 Associated Diagnoses: None Author: Kaden Benítez Jr, DO Preoperative Information Anesthesia history: Patient history: No prior anesthesia problems. Re-evaluation prior to induction: Completed, Initial evaluation reviewed. Review of Systems Respiratory: No shortness of breath. Cardiovascular: No chest pain. Health Status Allergies: Allergic Reactions (All)Severity Not DocumentedAspirin- Anaphylactic reaction.Ciprofloxacin- Rash and rash.Dilaudid- Rash.Hydromet- Rash.Lodine- Rash.Morphine- Stomach pain.Percocet 5/325- Rash.Phenergan- Abdominal spasms.Stadol- Rash.Tape- Rash. Current medications: (Selected) PrescriptionsPrescribedMiralax 3350 17 gram packet: 17 gram, Oral, Daily, # 170 gram, Refills(s) 0Zofran 4 mg Tab: 4 mg = 1 tab(s), Oral, q6hr, PRN Nausea, # 16 tab(s), Refills(s) 0, Pharmacy: [facility] #72Documented MedicationsDocumentedNitro 0.4 mg Tab: = 1 tab(s), SubLingual, q5min, PRN Chest pain, # 25 tab(s), Refills(s) 3Phenergan: 25 mg, Oral, q4hr, PRN as needed for nausea/vomiting, Refills(s) 0acetaminophen-hydrocodone 325 mg-5 mg oral tablet: Oral, TID as needed for pain, Refill(s) 0hyoscyamine: 0.125 mg, Oral, Refills(s) 0, Irritable bowel symptomssimvastatin: 20 mg, Oral, Once a day (at bedtime), Refills(s) 0, High cholesteroltramadol: 50 mg, Oral, PRN as needed for pain, Refills(s) 0 Problem list: All ProblemsPancreatitis, acute / SNOMED CT 044186734 / ConfirmedFrozen shoulder / SNOMED CT 0490583788 / ConfirmedRIGHTArthritis / SNOMED CT 0603425 / Confirmedneck and lower backChronic colitis / SNOMED CT 26223774 / ConfirmedC. difficile diarrhea / SNOMED CT 5175396957 / [facility] 2 to 3 years agoRSD (reflex sympathetic dystrophy) / SNOMED CT 5700544688 / ConfirmedPancreatic cyst / SNOMED CT 56819578 / ConfirmedDiverticulosis / SNOMED CT 4000960901 / ConfirmedFibromyalgia / SNOMED CT 96669318 / ConfirmedAcid reflux / SNOMED CT 640497875 / ConfirmedH/O pleurisy / SNOMED CT 979159885 / ConfirmedIBS (irritable bowel syndrome) / SNOMED CT 88998594 / ConfirmedMigraines / SNOMED CT 81939587 / ConfirmedRare disorder causing involuntary movements and spasms / SNOMED CT 044433125 / ConfirmedesophagealLupus / SNOMED CT 50105331 / ConfirmedThoracic outlet syndrome / SNOMED CT 533553281 / ConfirmedbilateralResolved: Endometriosis / SNOMED CT 35O2LHS5-7FSR-327Q-20JB-2V59G8Z8W7 G5Qhxekuqo: Fibromyalgia / SNOMED CT A0E096J1-G29H-2410-34P2-4713953X28 E0Murrydfb: Hyperlipidemia / SNOMED CT 90982093Pmkfhepr: IBS (irritable bowel syndrome) / SNOMED CT [id number]-50721321MQ 4CResolved: Pancreatitis / SNOMED CT 058011126Yrftqfpj: RSD upper limb / SNOMED CT T0C8A6T3-5QU2-58ML-3AR7-939060VDU3 H2Vkxajkyq: SLE (systemic lupus erythematosus) / SNOMED CT 97E113N6-3027-75Y8-3R10-MX39AEP021 CFResolved: Thoracic outlet syndrome / SNOMED CT [id number] 20 Histories Past Medical History: ResolvedFibromyalgia ([id number]-[id number] 0C0): Resolved.IBS (irritable bowel syndrome) ([id number]-98771210G A4C): Resolved.Pancreatitis (116948221): Resolved.Endometriosis (95X1LWQ0-8ESK-585N-19CG-8Y09S7F1C 3C4): Resolved.Thoracic outlet syndrome ([id number] 020): Resolved.SLE (systemic lupus erythematosus) ([id number] 8CF): Resolved.RSD upper limb ([id number] 9C1): Resolved.Hyperlipidemia (62530788): Resolved. Family History: No family history items have been selected or recorded. Procedure history: History of tonsillectomy (4382981647). section (48883092).Laparoscopic right ovarian cystectomy (5789889515).Thoracic outlet syndrome ([id number] 020).Comments:01/30/2016 12:01 - Ibrahima PARRISH, [facility]aterallyHistory of hysterectomy.. (3956024271).Laparoscope (566140764).Gallbladder (058769989).Endoscopy (8794591611).Colonoscopy (023493249).mri/ct abd.right shoulder scope. Social History Social & Psychosocial LhzdzoLyboiqw56/17/2016 Risk Assessment: Low Risk Comment: denies current use - 10/05/2017 09:18 Samantha Mcclure RN ASubstance Abuse01/30/2016 Risk Assessment: Denies Substance Abuse Comment: denies current use - 10/05/2017 09:18 Samantha Mcclure RN YVliehng42/17/2016 Risk Assessment: Denies Tobacco Use Comment: denies current use - 10/05/2017 09:18 Samantha Mcclure RN Physical Examination Vital Signs 10/05/2017 13:02 EDT Peripheral Pulse Rate 61 bpm Respiratory Rate 16 br/min Systolic Blood Pressure 139 mmHg Diastolic Blood Pressure 78 mmHg SpO2 100 % 10/05/2017 11:30 EDT Peripheral Pulse Rate 72 bpm Respiratory Rate 16 br/min Systolic Blood Pressure 138 mmHg Diastolic Blood Pressure 67 mmHg 10/05/2017 11:08 EDT Peripheral Pulse Rate 64 bpm Systolic Blood Pressure 131 mmHg Diastolic Blood Pressure 75 mmHg SpO2 99 % 10/05/2017 10:06 EDT Peripheral Pulse Rate 68 bpm Systolic Blood Pressure 140 mmHg Diastolic Blood Pressure 57 mmHg LOW Mean Arterial Pressure, Cuff 85 mmHg 10/05/2017 08:23 EDT Temperature Oral 36.4 DegC Peripheral Pulse Rate 97 bpm Respiratory Rate 22 br/min HI Systolic Blood Pressure 123 mmHg Diastolic Blood Pressure 90 mmHg SpO2 99 % Measurements from flowsheet : Measurements 10/05/2017 08:23 EDT Height/Length Measured 160 cm Body Mass Index Measured 23.83 kg/m2 Weight Measured 61 kg Respiratory: Lungs are clear to auscultation. Cardiovascular: Normal rate, Regular rhythm. Review / Management Results review Interpretation of Outside Results Chest x-ray results Radiology results ECG interpretation Condition Plan [employer] Anesthesiologists (ASA) physical status classification: Class II. Anesthetic Preoperative Plan Anesthesia: Monitored anesthesia care. Anesthetic plan, risks, benefits, and alternatives discussed with the patient and/or family. Risks discussed: nausea, vomiting, headache, sore throat, dental injury, serious complications. Patient verbalized understanding. Communication: face to face with (patient 5 minutes, Pt. educated on the importance of smoking cessation.). [facility] Comment on above: Result Comment: Elec tronically Signed By: Kaden Benítez Jr, DO\.br\Date and Time Signed: 10/08/17 12:25 EDT Coding Summary.on 10-07-2017 Coding Summary. CODING DATE: FINAL [facility] STATUS: Home (Routine DC) PAYOR: Medicare APC DESCRIPTION 5571 Level 1 Imaging with Contrast 5025 Level 5 Type A ED Visits ADMIT DX: REASON FOR VISIT DX: R10.30 Lower abdominal pain, unspecified M54.9 Dorsalgia, unspecified R11.2 Nausea with vomiting, unspecified FINAL DX: PRINCIPAL: R10.30 Lower abdominal pain, unspecified SECONDARY: M54.9 Dorsalgia, unspecified R11.2 Nausea with vomiting, unspecified M32.9 Systemic lupus erythematosus, unspecified E78.5 Hyperlipidemia, unspecified Z85.51 Personal history of malignant neoplasm of bladder Z88.5 Allergy status to narcotic agent status Z88.6 Allergy status to analgesic agent status Z88.1 Allergy status to other antibiotic agents status PYMT PROC APC STAT DESCRIPTION DOCTOR NAME DATE NOTE: The code number assigned matches the documented diagnosis and / or procedure in the patient's chart. However, the narrative phrase printed from the coding software may appear abbreviated, or result in slightly different terminology. Coded By: Dulce Germain Date Saved: 10/07/2017 08:55 am [facility] Coding Summary. CODING DATE: FINAL [facility] STATUS: Home (Routine DC) PAYOR: Medicare APC DESCRIPTION 5571 Level 1 Imaging with Contrast ADMIT DX: REASON FOR VISIT DX: R10.30 Lower abdominal pain, unspecified M54.9 Dorsalgia, unspecified R11.2 Nausea with vomiting, unspecified FINAL DX: PRINCIPAL: R10.30 Lower abdominal pain, unspecified SECONDARY: M54.9 Dorsalgia, unspecified R11.2 Nausea with vomiting, unspecified M32.9 Systemic lupus erythematosus, unspecified E78.5 Hyperlipidemia, unspecified Z85.51 Personal history of malignant neoplasm of bladder Z88.5 Allergy status to narcotic agent status Z88.6 Allergy status to analgesic agent status Z88.1 Allergy status to other antibiotic agents status PYMT PROC APC STAT DESCRIPTION DOCTOR NAME DATE NOTE: The code number assigned matches the documented diagnosis and / or procedure in the patient's chart. However, the narrative phrase printed from the coding software may appear abbreviated, or result in slightly different terminology. Coded By: Dulce Germain Date Saved: 10/07/2017 08:55 am Normal [facility] ED Clinical Summaryon 2017 ED Clinical Summary [place] [id number] ED Clinical SummaryPerson Information Name: SKIP [facility] Age[facility] 62 Years : 1955 12:00 AM Sex: Female Language:Bolivian PCP: Anitha Ramey MD Marital Status: Visit Id: Visit Reason:Vomiting; Back pain; Abdominal pain; ABD PAIN, V/D Speciality: Acuity: 3 Enc Type: Emergency Med Service: Emergency Arrival:10/06/2017 7:31 PM Discharge: 10/06/2017 11:57 PM LOS: 000 04:26 Checkin:10/06/2017 7:31 PM Checkout: 10/06/2017 11:57 PM Dispo Type: Home (Routine DC) EVENTS:Event Name Event Status Request Date/Time Start Date/Time Complete Date/Time Arrive Complete 10/06/2017 7:31 PM 10/06/2017 7:31 PM 10/06/2017 7:31 PM Document Home Meds Complete 10/06/2017 7:31 PM 10/06/2017 8:46 PM 10/06/2017 8:46 PM Triage Complete 10/06/2017 7:31 PM 10/06/2017 7:52 PM 10/06/2017 7:52 PM Pending Labs Complete 10/06/2017 7:45 PM 10/06/2017 9:34 PM Lab Complete 10/06/2017 7:45 PM 10/06/2017 9:34 PM Urine Collect Complete 10/06/2017 7:45 PM 10/06/2017 9:[address] Complete 10/06/2017 7:45 PM 10/06/2017 8:23 PM 10/06/2017 9:49 PM Bed Assign Complete 10/06/2017 7:46 PM 10/06/2017 7:46 PM 10/06/2017 7:[address] Exam Complete 10/06/2017 7:46 PM 10/06/2017 7:47 PM 10/06/2017 7:47 PM RN Exam Complete 10/06/2017 7:46 PM 10/06/2017 8:23 PM 10/06/2017 8:23 PM Registration Complete 10/06/2017 7:47 PM 10/06/2017 8:34 PM 10/06/2017 8:34 PM Isolation Screening Request 10/06/2017 7:52 PM EKG Complete 10/06/2017 8:19 PM 10/06/2017 8:39 PM Pending Labs Cancel 10/06/2017 8:19 PM 10/06/2017 9:03 PM Pending Labs Complete 10/06/2017 8:30 PM 10/06/2017 8:30 PM 10/06/2017 8:57 PM Lab Complete 10/06/2017 8:30 PM 10/06/2017 8:30 PM 10/06/2017 8:57 PM Reg Complete Request 10/06/2017 8:34 PM Reg Bed Request Complete 10/06/2017 8:34 PM 10/06/2017 8:34 PM 10/06/2017 8:34 PM Pending Labs Complete 10/06/2017 8:35 PM 10/06/2017 8:35 PM 10/06/2017 8:35 PM Lab Complete 10/06/2017 8:35 PM 10/06/2017 8:35 PM 10/06/2017 8:35 PM Pending Labs Complete 10/06/2017 9:04 PM 10/06/2017 9:04 PM 10/06/2017 9:25 PM Discharge Complete 10/06/2017 10:59 PM 10/06/2017 11:57 PM 10/06/2017 11:57 PM Transfer Complete 10/06/2017 11:57 PM 10/06/2017 11:57 PM 10/06/2017 11:57 PM ADDRESS:[address] [place] [address] [phone] PHYS DOC NOTES: MEDICAL INFORMATION: Prescriptions Given:Home Meds Display acetaminophen (Tylenol Extra Strength 500 mg oral tablet) 1,000 mg = 2 tab(s), Oral, PRN as needed for pain, Refills(s) 0 acetaminophen-hydrocodone (Orange 5/325 Tab) 1 tab(s), Oral, q6hr as needed for pain, Refill(s) 0 ibuprofen (ibuprofen 200 mg Tab) 400 mg = 2 tab(s), Oral, q4hr, Refills(s) 0 omeprazole (Omeprazole 20 mg Cap - DR) 20 mg, Oral, Daily, Refills(s) 0 pancrelipase (Creon 24,000 units oral delayed release capsule) = 3 cap(s), Oral, TID, Refills(s) 0 promethazine (promethazine 25 mg Tab) 25 mg = 1 tab(s), Oral, TID, PRN as needed for nausea/vomiting tramadol (traMADOL 50 mg Tab) 50 mg = 1 tab(s), Oral, q6hr, PRN Pain, Refills(s) 0 PATIENT EDUCATION INFORMATION: Instructions:Abdominal Pain, Adult Follow up:With: Address: When: Anitha Ramey [address] [place] [address], [facility] [place] [id number] [facility] (1) In 3 days 10/09/2017 Comments: Current Diagnosis - abdominal pain Results - At this point all testing did not show a cause of your symptoms. Therefore we do not know exactly what is causing your symptoms. However because of this it is extremely important to monitor them closely as they can change be the first sign of a something worse. Treatment - tylenol for pain, increase fluid intake to prevent dehydration Return to ED for - worsening pain, fevers, chills, nausea, vomiting, inability to eat or drink, lightheadedness, dizziness, weakness, burning with urination, increased urinary frequency, cough, chest pain, headache Follow up - With your primary care physician within 2 days if no better or worse. It is important to be reevaluated by your doctor in the next 1-2 days as your symptoms could be the beginning of a life-threatening or surgical disease process. However at this point there is no obvious source of your symptoms. You have been seen, evaluated, treated, and reevaluated in the emergency department. Your test results and diagnoses have been explained to you . You have expressed understanding of the results, your diagnosis, and its implications. All of your questions have been answered. Please read your discharge instructions carefully and follow them as directed. You have been provided access to your imaging and lab results and had any abnormalities explained, please take them to your doctor as they may require follow up as we discussed. It is important to remember that your care does not end here and you must continue to monitor your condition closely. Please return to the emergency department for any worsening or concerning signs or symptoms as directed by our conversations and the discharge instructions. Otherwise please follow up with your doctor in 2 days if no better or worse. If you do not have a doctor please contact the hospital of your choice. Please contact any physician specialists provided in your discharge notes as it is very important to follow up with them regarding your condition. If you are unable to reach the physicians provided, please come back to the Emergency Department at any time. As always, please take medications as directed. If you have any questions at all regarding your medications, please contact the pharmacist, the emergency department, or your doctor. Before taking any medication prescribed in the Emergency Department, please review the medication side effects and drug interactions (http://www.rxlist.com/script/main /hp.asp) as they may interact with your home medications. Having trouble affording medications? Try [facility]! (This is not a hospital endorsed website, merely a recommendation based on my own personal experiences with [employer]) Questions? Contact me anytime. Kade Howe MD, ALEX DIAGNOSIS:1:Abdominal pain Normal [facility] ED Note-Physicianon 10-08-19 ED Note-Physician Basic Information Ti me Seen: Kade Howe MD 10/06/2017 19:47Chief Complaint abd and back pain since last thursday. hx of chronic pancreatitis. pt was seen here 10/05 in ED. also had xray done at [facility] today. Dr Roy doing endoscopy tomorrow. pt has been passing stool. pt had bm in pants on the way here. pt nauseated and vomitingPhysical Exam Vitals & Measurements T: 36.6 ?C (Oral) HR: 64(Peripheral) RR: 18 BP: 112/87 SpO2: 100% HT: 160 cm WT: 60 kg BMI: 23.44 Medical Decision Making HISTORY OF PRESENT ILLNESS: Past medical history of remote bladder cancer reasons for chief complaint of lower crampy abdominal pain for the past three days. Associated with one episode of vomiting. No fevers or chills. No urinary complaints. No chest pain shortness of breath. No numbness or dizziness. No Blood per rectum. No melena. Severity is moderate. No aggravating or relieving factors. Timing is three days. Course is worsening. Context is remote cancer ED Caveat: [none] ROS *see ED Caveat Gen: No fever, no chills CV: No CP, no palpitations Resp: No SOB, no respiratory distress GI: V/D, abd pain : No dysuria, no increased frequency Skin: No rash, no purulent lesions Eyes: No blurry vision, No double vision MSK: No back pain, no joint pain Neuro: No [place], no sensation changes Psych: No SI/HI Allergies -reviewed PMH -See HPI Social History -No daily drinking, no IV drugs PHYSICAL EXAM Gen: Alert, no acute distress Skin: Warm, no rashes Head: Normocephalic, atraumatic Neck: No midline tenderness, no nuchal rigidity Eye: EOMI, PERRLA, normal conjunctiva ENT: Mucous membranes moist, no pharyngeal erythema CV: Normal rate, no rubs Resp: Respirations unlabored, lungs clear to auscultation GI: Soft, non distended, no large abdominal masses, non tender MSK: No midline back pain, no large joint effusions Neuro: Alert and oriented, no focal neurological deficits observed Psych: Cooperative, appropriate mood and affect MEDICAL DECISION MAKING Differential Diagnosis: - Consideration is given for appendicitis, cholecystitis, dissection, diverticulitis, SBO, urinary tract infection, ischemia to reproductive organs, ACS, ischemic colitis, Impression/Plan: -Chronically patient is well-appearing at this time. Most consistent with a diverticulitis or urinary tract infection. We'll get imaging an attempt symptomatically treatment. Disposition will this Reevaluation/Conversations on care: - I have independently reviewed and interpreted any ordered labs and/or imaging. - felt better, jumana po Dx -Abdominal pain Kade Howe MD, ALEX Emergency Medicine Attending Questions? Please contact my cell phone anytime. *This charting supersedes any ED resident or staff charting and was written using speech recognition softwareAssessment/Plan 1. Abdominal pain Orders: Automated Diff Cardiac 0 Hr. CBC w/ Auto Diff Comprehensive Metabolic Panel CT Abdomen/Pelvis w/ Contrast ECG 12 Lead Adult eGFR Lactic Acid Lipase Level Magnesium Level UA With Cult ReflexDisposition Plan Discharge Prescription List Prescriptions No active prescription medications Follow-up With When Contact Information Anitha Ramey In 3 days 10/09/2017 EDT [address] [place] [address]- Business (1) Additional Instructions: Current Diagnosis - abdominal pain Results - At this point all testing did not show a cause of your symptoms. Therefore we do not know exactly what is causing your symptoms. However because of this it is extremely important to monitor them closely as they can change be the first sign of a something worse. Treatment - tylenol for pain, increase fluid intake to prevent dehydration Return to ED for - worsening pain, fevers, chills, nausea, vomiting, inability to eat or drink, lightheadedness, dizziness, weakness, burning with urination, increased urinary frequency, cough, chest pain, headache Follow up - With your primary care physician within 2 days if no better or worse. It is important to be reevaluated by your doctor in the next 1-2 days as your symptoms could be the beginning of a life-threatening or surgical disease process. However at this point there is no obvious source of your symptoms. You have been seen, evaluated, treated, and reevaluated in the emergency department. Your test results and diagnoses have been explained to you . You have expressed understanding of the results, your diagnosis, and its implications. All of your questions have been answered. Please read your discharge instructions carefully and follow them as directed. You have been provided access to your imaging and lab results and had any abnormalities explained, please take them to your doctor as they may require follow up as we discussed. It is important to remember that your care does not end here and you must continue to monitor your condition closely. Please return to the emergency department for any worsening or concerning signs or symptoms as directed by our conversations and the discharge instructions. Otherwise please follow up with your doctor in 2 days if no better or worse. If you do not have a doctor please contact the hospital of your choice. Please contact any physician specialists provided in your discharge notes as it is very important to follow up with them regarding your condition. If you are unable to reach the physicians provided, please come back to the Emergency Department at any time. As always, please take medications as directed. If you have any questions at all regarding your medications, please contact the pharmacist, the emergency department, or your doctor. Before taking any medication prescribed in the Emergency Department, please review the medication side effects and drug interactions (http://www.rxlist.com/script/main /hp.asp) as they may interact with your home medications. Having trouble affording medications? Try [facility]! (This is not a hospital endorsed website, merely a recommendation based on my own personal experiences with [employer]) Questions? Contact me anytime. Kade Howe MD, ALEX Patient Education Abdominal Pain, AdultProblem List/Past Medical History Ongoing No qualifying data Historical Endometriosis Fibromyalgia Hyperlipidemia IBS (irritable bowel syndrome) Pancreatitis RSD upper limb SLE (systemic lupus erythematosus) Thoracic outlet syndromeProcedure/Surgical History section, Cholecystectomy, Colonoscopy, Endoscopy, Gallbladder, History of hysterectomy.., History of tonsillectomy, Laparoscope, Laparoscopic right ovarian cystectomy 08-APR-2016 14:41:17<$>, mri/ct abd, right shoulder scope, Thoracic outlet syndrome 08-APR-2016 17:54:24<$>.Medications Inpatient No active inpatient medications Home Creon 24,000 units oral delayed release capsule, 3 cap(s), Oral, TID ibuprofen 200 mg Tab, 400 mg= 2 tab(s), Oral, q4hr Orange 5/325 Tab, 1 tab(s), Oral, q6hr, PRN Omeprazole 20 mg Cap - DR, 20 mg, Oral, Daily promethazine 25 mg Tab, 25 mg= 1 tab(s), Oral, TID, PRN traMADOL 50 mg Tab, 50 mg= 1 tab(s), Oral, q6hr, PRN Tylenol Extra Strength 500 mg oral tablet, 1000 mg= 2 tab(s), Oral, PRNAllergies Dilaudid (Rash) Hydromet (Rash) Lodine (Rash) Percocet 5/325 (Rash) Phenergan (Abdominal spasms) Stadol (Rash) Tape (Rash) aspirin (Anaphylactic reaction) ciprofloxacin (Rash, Rash) morphine (Stomach pain)Social History Alcohol - Denies Alcohol Use, 10/06/2017 Substance Abuse - Denies Substance Abuse, 01/30/2016 Tobacco - Denies Tobacco Use, 01/30/2016Lab Results WBC: 10.7 E9/L (10/06/17 20:30:00) RBC: 4.8 E12/L (10/06/17 20:30:00) Hgb: 14.5 gm/dL (10/06/17 20:30:00) Hct: 44 % (10/06/17 20:30:00) MCV: 90.9 fL (10/06/17 20:30:00) MCH: 30 pg (10/06/17:30:00) MCHC: 33 gm/dL (10/06/17:30:00) RDW: 13.7 % (10/06/17 20:30:00) Platelet: 337 E9/L (10/06/17 20:30:00) MPV: 7.6 fL (10/06/17 20:30:00) Neutro Auto: 72.4 % (10/06/17 20:30:00) Lymph Auto: 14.7 % (10/06/17 20:30:00) [place] Auto: 11.9 % (10/06/17 20:30:00) Eos Auto: 0.7 % (10/06/17 20:30:00) Basophil Auto: 0.3 % (10/06/17 20:30:00) Neutro Absolute: 7.7 E9/L High (10/06/17 20:30:00) Lymph Absolute: 1.6 E9/L (10/06/17 20:30:00) [place] Absolute: 1.3 E9/L High (10/06/17 20:30:00) Eos Absolute: 0.1 E9/L (10/06/17 20:30:00) Basophil Absolute: 0 E9/L (10/06/17 20:30:00) Glucose Lvl: 111 mg/dL (10/06/17 20:30:00) BUN: 10 mg/dL (10/06/17:30:00) Creatinine: 0.9 mg/dL (10/06/17:30:00) eGFR: >60 (10/06/17:30:00) eGFR AA: >60 (10/06/17:30:) BUN/Creat Ratio: 11 (10/06/17 20:30:00) Sodium Lvl: 138 mmol/L (10/06/17:30:00) Potassium Lvl: 3.8 mmol/L (10/06/17:30:00) Chloride: 105 mmol/L (10/06/17:30:00) CO2: 22 mmol/L (10/06/17:30:00) AGAP: 15 mEq/L (10/06/17:30:) Calcium Lvl: 9.4 mg/dL (10/06/17:30:00) Alk Phos: 85 Int._Unit/L (10/06/17::) ALT: 31 Int._Unit/L (10/06/17:30:) AST: 33 Int._Unit/L (10/06/17:30:) Total Protein: 7.6 gm/dL (10/06/17:30:) Albumin Lvl: 4.4 gm/dL (10/06/17:30:) Globulin: 3.2 gm/dL (10/06/17:30:00) A/G Ratio: 1.4 (10/06/17:30:00) Bili Total: 0.4 mg/dL (10/06/17:30:00) Lipase Lvl: 22 unit/L (10/06/17:30:00) Lactic Acid Lvl: 12.3 mg/dL (10/06/17:13:00) Magnesium: 2.1 mg/dL (10/06/17:30:00) CK MB: 1 ng/mL (10/06/17 21:13:00) Myoglobin: 16 ng/mL (10/06/17 21:13:00) Troponin: <0.03 (10/06/17 21:13:00) Total CK: 70 Int._Unit/L (10/06/17 21:13:00) UA Spec Desc: Clean Catch (10/06/17 20:56:00) UA Color: Yellow2 (10/06/17 20:56:00) UA Clarity: Clear2 (10/06/17 20:56:00) UA Spec Grav: <=1.005 (10/06/17 20:56:00) UA pH: 5.5 (10/06/17 20:56:00) UA Protein: NEGATIVE1 (10/06/17 20:56:00) UA Glucose: NEGATIVE1 (10/06/17 20:56:00) UA Ketones: NEGATIVE1 (10/06/17 20:56:00) UA Bili: NEGATIVE1 (10/06/17 20:56:00) UA Blood: NEGATIVE1 (10/06/17 20:56:00) UA Nitrite: NEGATIVE1 (10/06/17 20:56:00) UA Urobilinogen: 0.2 (10/06/17 20:56:00) UA Leuk Est: Trace2 Abnormal (10/06/17 20:56:00) UA RBC: 0-3 (10/06/17 20:56:00) UA Squam Epithelial: 0-2 (10/06/17 20:56:00) UA WBC: 0-5 (10/06/17 20:56:00)Diagnostic Results No qualifying data available. Normal [facility] Comment on above: Result Comment: Elec tronically Signed By: Carley PARISI, Kade Sloan\.br\Date and Time Signed: 10/06/17 22:28 EDT ED Patient Education Noteon 10-07-2017 ED Patient Education Note Emergency MedicineAbdominal PainMany things can cause abdominal pain. Usually, abdominal pain is not caused by a disease and will improve without treatment. It can often be observed and treated at home. Your health care provider will do a physical exam and possibly order blood tests and X-rays to help determine the seriousness of your pain. However, in many cases, more time must pass before a clear cause of the pain can be found. Before that point, your health care provider may not know if you need more testing or further treatment. HOME CARE INSTRUCTIONSMonitor your abdominal pain for any changes. The following actions may help to alleviate any discomfort you are experiencing:? Only take bmfr-tzf-acimjby or prescription medicines as directed by your health care provider. ? Do not take laxatives unless directed to do so by your health care provider.? Try a clear liquid diet (broth, tea, or water) as directed by your health care provider. Slowly move to a bland diet as tolerated.SEEK MEDICAL CARE IF:? You have unexplained abdominal pain.? You have abdominal pain associated with nausea or diarrhea. ? You have pain when you urinate or have a bowel movement.? You experience abdominal pain that wakes you in the night.? You have abdominal pain that is worsened or improved by eating food.? You have abdominal pain that is worsened with eating fatty foods.? You have a fever. SEEK IMMEDIATE MEDICAL CARE IF:? Your pain does not go away within 2 hours.? You keep throwing up (vomiting).? Your pain is felt only in portions of the abdomen, such as the right side or the left lower portion of the abdomen.? You pass bloody or black tarry stools.MAKE SURE YOU:? Understand these instructions. ?? Will watch your condition. ?? Will get help right away if you are not doing well or get worse. ?Document Released: 03/11/2006 Document Revised: 06/06/2014 Document Reviewed: 02/08/2014ExitCare? Patient Information ?2015 [employer]. This information is not intended to replace advice given to you by your health care provider. Make sure you discuss any questions you have with your health care provider. Normal [facility] ED Patient Summaryon 018 ED Patient Summary [place] [id number] Patient Discharge Instructions Person Information Name: SKIP HONG Age: 62 Years Date: 10/06/2017 7:31 PMDischarge Diagnosis: 1:Abdominal pain Primary Care Physician: Anitha Ramey MD Provider InformationPrimary Provider: Carley PARISI, Kade SloanAdvanced Pitch Worker:None The exam and treatment you received in the Emergency Department were for an urgent problem and are not intended as complete care. It is important that you follow up with a doctor, nurse practitioner, or physician?s promotional advertising assistant for ongoing care. If your symptoms become worse or you do not improve as expected and you are unable to reach your usual health care provider, you should return to the Emergency Department. We are available 24 hours a day. SKIP HONG has been given the following list of patient education materials, prescriptions and follow-up instructions: Follow-up Instructions:With: Address: When: Anitha Ramey [facility] [facility], [address] [place] [id number] [employer] (1) In 3 days 10/09/2017 Comments: Current Diagnosis - abdominal pain Results - At this point all testing did not show a cause of your symptoms. Therefore we do not know exactly what is causing your symptoms. However because of this it is extremely important to monitor them closely as they can change be the first sign of a something worse. Treatment - tylenol for pain, increase fluid intake to prevent dehydration Return to ED for - worsening pain, fevers, chills, nausea, vomiting, inability to eat or drink, lightheadedness, dizziness, weakness, burning with urination, increased urinary frequency, cough, chest pain, headache Follow up - With your primary care physician within 2 days if no better or worse. It is important to be reevaluated by your doctor in the next 1-2 days as your symptoms could be the beginning of a life-threatening or surgical disease process. However at this point there is no obvious source of your symptoms. You have been seen, evaluated, treated, and reevaluated in the emergency department. Your test results and diagnoses have been explained to you . You have expressed understanding of the results, your diagnosis, and its implications. All of your questions have been answered. Please read your discharge instructions carefully and follow them as directed. You have been provided access to your imaging and lab results and had any abnormalities explained, please take them to your doctor as they may require follow up as we discussed. It is important to remember that your care does not end here and you must continue to monitor your condition closely. Please return to the emergency department for any worsening or concerning signs or symptoms as directed by our conversations and the discharge instructions. Otherwise please follow up with your doctor in 2 days if no better or worse. If you do not have a doctor please contact the hospital of your choice. Please contact any physician specialists provided in your discharge notes as it is very important to follow up with them regarding your condition. If you are unable to reach the physicians provided, please come back to the Emergency Department at any time. As always, please take medications as directed. If you have any questions at all regarding your medications, please contact the pharmacist, the emergency department, or your doctor. Before taking any medication prescribed in the Emergency Department, please review the medication side effects and drug interactions (http://www.rxlist.com/script/main /hp.asp) as they may interact with your home medications. Having trouble affording medications? Try [facility]! (This is not a hospital endorsed website, merely a recommendation based on my own personal experiences with [employer]) Questions? Contact me anytime. Kade Howe MD, ALEX In the event that this physician does not participate in your insurance network, please consult with your insurance company to find a nearby participating provider. Patient Education Materials:Abdominal Pain, Adult A MESSAGE TO ALL PATIENTS REGARDING OPIOIDS PRESCRIPTION OPIOIDS: WHAT YOU NEED TO KNOW Prescription opioids can be used to help relieve cnmfhivb-cq-lkrhhn pain and are often prescribed following a surgery or injury, or for certain health conditions. These medications can be an important part of the treatment but also come with serious risks. It is important to work with your healthcare provider to make sure you are getting the safest, most effective care. WHAT ARE THE RISKS AND SIDE EFFECTS OF OPIOID USE?Prescription opioids carry serious risks of addiction and overdose, especially with prolonged use. An opioid overdose, often marked by slowed breathing, can cause sudden . The use of prescription opioids can have a number of side effects as well, even when taken as directed:? Tolerance?meaning you might need to take more of the medication for the same pain relief? Physical dependence?meaning you have symptoms of withdrawal when a medication is stopped? Increased sensitivity to pain ? Constipation? Nausea, vomiting, and dry mouth? Sleepiness and dizziness? Confusion? Depression? Low levels of testosterone that can result in lower sex drive, energy, and strength? Itching and sweating RISKS ARE GREATER WITH:? History of drug misuse, substance use disorder, or overdose? Mental health conditions (such as depression or anxiety)? Sleep apnea? Older age (65 years and older)? Avoid alcohol while taking prescription opioids. Also, unless specifically advised by your health care provider, medications to avoid include:? Benzodiazepines (such as Xanax or Valium)? Muscle relaxants (such as Soma or Flexeril)? Hypnotics (such as Ambien or Lunesta)? Other prescription opioids KNOW YOUR OPTIONSTalk to your health care provider about ways to manage your pain that don?t involve prescription opioids. Some of these options may actually work better and have fewer risks and side effects. Options may include:? Pain relievers such as acetaminophen, ibuprofen, and naproxen? Some medication that are also used for depression or seizures? Physical therapy and exercise? Cognitive behavioral therapy, a psychological, goal-directed approach, in which patients learn how to modify physical, behavioral, and emotional triggers of pain and stress. IF YOU ARE PRESCRIBED OPIOIDS FOR PAIN:? Never take opioids in greater amounts or more often than prescribed.? Follow up with your primary health care provider.o Work together to create a plan on how to manage your pain.o Talk about ways to help manage your pain that don?t involve prescription opioids.o Talk about any and all concerns and side effects.? Help prevent misuse and abuseo Never sell or share prescription opioids.o Never use another person?s prescription opioids.? Store prescription opioids in a secure place and out of reach of others (this may include visitors, children, friends, and family).? Safely dispose of unused prescription opioids: Find your community drug take-back program or your pharmacy mail-back program, or flush them down the toilet, following guidance from the Food and Drug Administration (www.fda.gov/Drugs/ResourcesForYou ).? Visit www.cdc.gov/drugoverdose to learn about the risks of opioids abuse and overdose.? If you believe you may be struggling with addiction, tell your health acute care physical therapist and ask for guidance or call SAMHSA?S National Helpline at 2-551-015-PGRE. u Source: [place] Department of Health and Human Services/Center for Disease Control & Prevention [facility] Medications Given:Medication Dose Route No medications found. Medication Information:Medications to Continue Taking That Have ChangedOther MedicationsSTART: omeprazole (Omeprazole 20 mg Cap - DR) 20 Milligram By Mouth every day.STOP: omeprazole 40 Milligram By Mouth every day.START: pancrelipase (Creon 24,000 units oral delayed release capsule) 3 Capsules By Mouth 3 times a day.STOP: pancrelipase (Creon) By Mouth before meals.Medications to Continue with No ChangesOther Medicationsacetaminophen (Tylenol Extra Strength 500 mg oral tablet) 2 Tabs By Mouth as needed as needed for pain.acetaminophen-hydrocodone (Orange 5/325 Tab) 1 Tabs By Mouth every 6 hours as needed as needed for pain.ibuprofen (ibuprofen 200 mg Tab) 2 Tabs By Mouth every 4 hours.promethazine (promethazine 25 mg Tab) 1 Tabs By Mouth 3 times a day as needed as needed for nausea/vomiting.tramadol (traMADOL 50 mg Tab) 1 Tabs By Mouth every 6 hours as needed Pain.Comment: Pharmacy Information: Thank you for choosing [facility] Patient Education Materials: Abdominal PainMany things can cause abdominal pain. Usually, abdominal pain is not caused by a disease and will improve without treatment. It can often be observed and treated at home. Your health care provider will do a physical exam and possibly order blood tests and X-rays to help determine the seriousness of your pain. However, in many cases, more time must pass before a clear cause of the pain can be found. Before that point, your health care provider may not know if you need more testing or further treatment. HOME CARE INSTRUCTIONSMonitor your abdominal pain for any changes. The following actions may help to alleviate any discomfort you are experiencing:? Only take trtu-gwf-jlvbwru or prescription medicines as directed by your health care provider. ? Do not take laxatives unless directed to do so by your health care provider.? Try a clear liquid diet (broth, tea, or water) as directed by your health care provider. Slowly move to a bland diet as tolerated.SEEK MEDICAL CARE IF:? You have unexplained abdominal pain.? You have abdominal pain associated with nausea or diarrhea. ? You have pain when you urinate or have a bowel movement.? You experience abdominal pain that wakes you in the night.? You have abdominal pain that is worsened or improved by eating food.? You have abdominal pain that is worsened with eating fatty foods.? You have a fever. SEEK IMMEDIATE MEDICAL CARE IF:? Your pain does not go away within 2 hours.? You keep throwing up (vomiting).? Your pain is felt only in portions of the abdomen, such as the right side or the left lower portion of the abdomen.? You pass bloody or black tarry stools.MAKE SURE YOU:? Understand these instructions. ?? Will watch your condition. ?? Will get help right away if you are not doing well or get worse. ?Document Released: 03/11/2006 Document Revised: 06/06/2014 Document Reviewed: 02/08/2014ExitCare? Patient Information ?2014 [employer]. This information is not intended to replace advice given to you by your health care provider. Make sure you discuss any questions you have with your health care provider.ABDIAS Carpio JEAN M , have received the following patient education materials/instructions and have verbalized understanding: Patient Education Materials: Abdominal Pain, Adult Follow-up Instructions: With: Address: When: Anitha Ramey [address] [place] [address], [facility] [address] [facility] (1) In 3 days 10/09/2017 Comments: Current Diagnosis - abdominal pain Results - At this point all testing did not show a cause of your symptoms. Therefore we do not know exactly what is causing your symptoms. However because of this it is extremely important to monitor them closely as they can change be the first sign of a something worse. Treatment - tylenol for pain, increase fluid intake to prevent dehydration Return to ED for - worsening pain, fevers, chills, nausea, vomiting, inability to eat or drink, lightheadedness, dizziness, weakness, burning with urination, increased urinary frequency, cough, chest pain, headache Follow up - With your primary care physician within 2 days if no better or worse. It is important to be reevaluated by your doctor in the next 1-2 days as your symptoms could be the beginning of a life-threatening or surgical disease process. However at this point there is no obvious source of your symptoms. You have been seen, evaluated, treated, and reevaluated in the emergency department. Your test results and diagnoses have been explained to you . You have expressed understanding of the results, your diagnosis, and its implications. All of your questions have been answered. Please read your discharge instructions carefully and follow them as directed. You have been provided access to your imaging and lab results and had any abnormalities explained, please take them to your doctor as they may require follow up as we discussed. It is important to remember that your care does not end here and you must continue to monitor your condition closely. Please return to the emergency department for any worsening or concerning signs or symptoms as directed by our conversations and the discharge instructions. Otherwise please follow up with your doctor in 2 days if no better or worse. If you do not have a doctor please contact the hospital of your choice. Please contact any physician specialists provided in your discharge notes as it is very important to follow up with them regarding your condition. If you are unable to reach the physicians provided, please come back to the Emergency Department at any time. As always, please take medications as directed. If you have any questions at all regarding your medications, please contact the pharmacist, the emergency department, or your doctor. Before taking any medication prescribed in the Emergency Department, please review the medication side effects and drug interactions (http://www.rxlist.com/script/main /hp.asp) as they may interact with your home medications. Having trouble affording medications? Try [facility]! (This is not a hospital endorsed website, merely a recommendation based on my own personal experiences with [facility]) Questions? Contact me anytime. Kade Howe MD, ALEX Prescriptions: Patient Signature Date Clinician/Nurse Signature Date 10/06/17 23:57:53 Normal [facility] History and Physicalon 10-07 History and Physical Date: 09/29/2017 1:15 PMPatient Name: Skip Maciel ReginaAndres #: [id number]: FemaleDOB (age): 1955 (62)Provider: Maylin Duarte Physician: Anitha Ramey MD[address] [place] [address] (phone) (fax)Chief Complaint: Abdominal, Bloating and gasHistory of Present Illness:62 years old white female is here for a sick visit as she was lost seen in February 2016, that time she was diagnosed withmild chronic pancreatitis seen on EUS, her workup was negative for autoimmune pancreatitis (positive AMIRA but negativeIgG4), she had ERCP with biliary sphincterotomy which led to temporary improvement, she had negative CA-19-9, she'llcontinue to report sporadic episodes of epigastric pain, she was recently admitted at [facility], she had abdominalcomputed tomography scan which was normal according to her, she also had normal MRCP done recently, she has mildlyelevated amylase but normal lipase, she reports significant epigastric pain radiating to the back, sporadic, started at least 2months agoPast Medical HistoryMedical Conditions: ArthritisBronchitisColitisDivertic ulitisDiverticulosisGERDIBSLupusMe aslesMigrainesMumpsPneumoniaRecurr ent U.T.I.TonsillitisSurgical Procedures: Ovary surgeryGallbladder removedHysterectomyC-SectionColono scopyTonsillectomyAppendectomyMedi cations: omeprazole 40 mg Take capsule by mouth once a dayAllergies: Adhesive TapeAspirinCipromorphinePhenerganS tadolSocial HistoryAlcohol: NoneTobacco: Smoker, current status unknownDrugs: NonePrinted on 10/02/2017 Skip Hong, [id number], 1955 Page 1 of 4Printed on 10/02/2017 Skip Hong, 19657, 1955Exercise: walking daily.Caffeine: tea and coffee.Marital Status: MarriedFamily History Brother: Ill;Sister: Ill;Mother: ;Father: ; at age 72; Diagnosed with Ulcerative Colitis;Review of Systems:Cardiovascular: Denies chest pain, dyspnea with exercise, irregular heart beat, orthopnea, palpitations, peripheraledema, syncope.Constitutional: Denies fatigue, fever, loss of appetite, malaise, sweats, weight gain, Arthritis, weight loss, exhaustion,chills.Eyes: Denies double vision, loss of vision, photophobia, blurred vision, pain, wearing glasses/contacts.Gastrointestinal: Complains of abdominal pain, bloating, change in bowel habits, constipation, diarrhea, gas.Denies abdominal swelling, anal rectal pain, belching, black stools, blood in stools, dairy intolerance,difficulty swallowing, heartburn, hemmorrhoids, jaundice, mucous in stool, nausea, rectal bleeding, rectalurgency, stool incontinence, stomach cramps, straining, vomiting, weight loss.Genitourinary: Denies dark urine, decrease in urine flow, dysuria, frequent urinary infections, frequent urination,hematuria, nocturia, urethral discharge or incontinence, sexual difficulty, sexual transmitted diseases,kidney disease, kidney stones, pain with urination.Respiratory: Denies asthma, cough, dyspnea, excessive sputum, hemoptisis, shortness of breath with exercise,wheezing, coughing up blood.Vital Signs:BP(mmHg)Pulse(ppm)Rhythm Weight (lbs/oz) Height (ft/in) BMI Resp/min Mptw090/79 85 Regular 134 / 5 / 3 23.73 12 98.3 (F)Physical Exam:Constitutional:Appearance: well developed, well nourished, normal habitus, no deformities, in no acute distress..Skin:Inspection: no rashes, ulcers, icterus or other lesions; no clubbing or telangiectasias..Eyes:Conjunctivae /lids: normal conjunctivae and lids..Pupils/irises: symmetrical, normoreactive to light, normal accommodation and size..ENMT:Lips/teeth/gums: normal oral mucosa,lips and gums; good dentition.Neck:Neck: normal motion, central trachea.Respiratory:Percussion: thorax normoresonant.Auscultation: normal breath sounds; no rubs, wheezes, rale or ronchi.Cardiovascular:Auscultation : normal rhythm, S1 and S2; no rubs, murmurs or gallop.Peripheral: no edema, varicocities or cyanosis..Gastrointestinal/Abdomen :Abdomen: normal consistency and bowel sounds; epigastric tenderness.Liver/Spleen: normal size and consistency, not palpable.Hernias: no hernias appreciated.Impressions: Chronic pancreatitis, mild chronic pancreatitis on EUS, positive AMIRA, negative IgG4, she has ahistory of lupus, if pain persists then I would give her a trial of prednisone and monitorimprovementEpigastric Pain, proceed with EGD to rule out peptic ulcer disease, if negative and her pain islikely related to chronic pancreatitisPlan:Creon 24,000-76,000-120,000 unit 3 cap with meals and 2 cap with mealsEGD (Upper Endoscopy) will be performed at [facility].Printed on 10/02/2017 Skip Hong, [address]0747, 1955 Page 2 of 4Printed on 10/02/2017 Skip Hong, 73802, 1955T Abdomen w/wo contrast (Pancreatic Protocol)Risk & Medical Necessity: Diagnosis and management options are Minimal. The amount of data reviewed and/orordered is Minimal/None. The level of risk is Minimal.Luli Ryo MD Skip Hong, 82873, 1955 Page 3 of 4Printed on 10/02/2017 Skip Hong, 03755, 1955Printed on 10/02/2017 Skip Hong, 13623, 1955 Page 4 of 4Printed on 10/02/2017 Skip Hong, 04352, 1955no change Normal [facility] Comment on above: Result Comment: Elec tronically Signed By: Luli Roy MD\.br\Date and Time Signed: 10/07/17 09:30 EDT Inpatient Patient Summaryon 10-07-2017 In[facility] InstructionsPERSON INFORMATION Name: ABDIAS SKIP Olivera [facility] Admitting Physician: Renetta Roy MDttending Physician: Luli Roy MD PCP: Gagan Ramey MD Diagnosis: Abdominal pain Comment: PATIENT EDUCATION INFORMATIONInstructions:Esophagoga stroduodenoscopy, Care AfterMedication Leaflets:Follow up:With: Address: When: Luli Roy [facility], [address] [place] [address] Business (1) Within 1 to 2 weeks Comments: Call for any problems. Keep scheduled appointment Type Location Start Finish State CT Abdomen (FT) FT.CAT SCAN 10/16/2017 10:00 AM 10/16/2017 10:45 AM Confirmed MEDICATION LISTComment: Normal [facility] Main OR PACU I Recordon 09-14 Main OR PACU I Record PACU Phase I Document Type FT Summary Primary Physician: Luli Roy MD Finalized Date/Time: 10/07/17 10:35:12 Pt. Name: SKIP HONG/Sex: 1955 Female Med Rec #: [id number] Physician: Luli Roy MD Financial #: [id number] Pt. Type: O Room/Bed: / Admit/Disch: 10/07/17 08:32:02 - Institution: Case Times PACU I FT Pre-Care Text: Identifies barriers to communication and implements measures to provide psychological support Develops individualized plan of care, and ensures continuity of care Maintains patient's dignity and privacy, and maintains patient confidentiality Identifies and reports philosophical, cultural, and spiritual beliefs and values Identifies individual values and wishes concerning care Implements aseptic technique, and administers prescribed antibiotic therapy and immunizing agents as ordered Evaluates postoperative tissue perfusion Implements thermoregulation measures, and monitors body temperature Evaluates postoperative respiratory status Evaluates postoperative cardiac status Evaluates postoperative neurological status Assesses pain control, collaborated in initiating patient-controlled analgesia and implements alternative methods of pain control Verifies allergies, administers prescribed medications and solutions, evaluates response to medications Entry 1 In PACU I 10/07/17 09:38:00 Discharge from PACU 10/07/17 10:25:00 I Outcomes Met? Yes Last Modified By: Siomaar Arango RN 10/07/17 10:34:52 Post-Care Text: The patient demonstrates knowledge of the expected response to the operative or invasive procedure The patient's care is consistent with the individualized perioperative plan of care The patient's right to privacy is maintained The patient's value system, lifestyle, ethnicity, and culture are considered, respected, and incorporated into the perioperative plan of care The patient participates in decisions affecting his or her perioperative plan of care The patient is free from signs and symptoms of infection The patient has wound/tissue perfusion consistent with or improved from baseline levels established preoperatively The patient is at or returning to normothermia at the conclusion of the immediate postoperative period The patient's respiratory function is consistent with or improved from baseline levels established preoperatively The patient's cardiovascular status is consistent with or improved from baseline levels established preoperatively The patient's cardiovascular status is consistent with or improved from baseline levels established preoperatively The patient demonstrates and/or reports adequate pain control throughout the perioperative period The patient received appropriate medication(s), safely administered during the perioperative period Acuity Level PACU I FT Entry 1 Start Time 10/07/17 09:38:00 Stop Time 10/07/17 10:25:00 Acuity Level Acuity Level I Last Modified By: Siomara Arango RN 10/07/17 10:35:07 Finalized By: Siomara Arango RN Document Signatures Signed By: Siomara Arango RN 10/07/17 10:35 Normal [facility] Main OR Preoperative Recordo n 10-07-2017 Main OR Preoperative Record Holding Area Document Type FT Summary Primary Physician: Luli Roy MD Finalized Date/Time: 10/07/17 09:03:24 Pt. Name: SKIP HONG/Sex: 1955 Female Med Rec #: [id number] Physician: Luli Roy MD Financial #: [id number] Pt. Type: O Room/Bed: / Admit/Disch: 10/07/17 08:32:02 - Institution: Case Times Holding FT Pre-Care Text: Verifies consent for planned procedure, identifies individual values and wishes concerning care, includes family members in perioperative teaching Secures patient's records' belongings, and valuables, maintains patient's dignity and privacy, and maintains patient confidentiality Entry 1 In Holding 10/07/17 08:50:00 Outcomes Met? Yes Last Modified By: Marcela Weston RN 10/07/17 09:02:03 Post-Care Text: The patient participates in decisions affecting his or her perioperative plan of care The patient's right to privacy is maintained Surgery Checklist FT Entry 1 Patient Birthday, ID Band Procedure History and Physical, Identification: Check, Patient Verification: Surgical Consent, With Participation Patient NPO after Midnight: Yes Date/Time: 10/06/17 13:00:00 Personal Items: Jewelry Personal Items contact lenses removed, Comment: clothing Complaints of Pain: Yes Pain Comment: on lower back aching/sharp pain Operative Site n/a Availability Equipment Marking: Verified: Does Patient Smoke No Patient states Yes Comment - Adult friend- iain middleton adult Supervision supervision available Case Cancelled in No Holding Area see comments below for reason Last Modified By: Marcela Weston RN 10/07/17 09:03:21 Finalized By: Marcela Weston RN Document Signatures Signed By: Marcela Weston RN 10/07/17 09:03 Normal [facility] Patient Education - Texton 0 10-07-2017 Patient Education - Text Family MedicineEsophagogastroduodenoscopy Care AfterRefer to this sheet in the next few weeks. These instructions provide you with information on caring for yourself after your procedure. Your caregiver may also give you more specific instructions. Your treatment has been planned according to current medical practices, but problems sometimes occur. Call your caregiver if you have any problems or questions after your procedure. HOME CARE INSTRUCTIONS? Do not eat or drink anything until the numbing medicine (local anesthetic) has worn off and your gag reflex has returned. You will know that the local anesthetic has worn off when you can swallow comfortably. ? Do not drive for 24 hours after the procedure or as directed by your caregiver.? Only take medicines as directed by your caregiver.SEEK MEDICAL CARE IF:? You cannot stop coughing.? You are not urinating at all or less than usual. SEEK IMMEDIATE MEDICAL CARE IF:? You have difficulty swallowing.? You cannot eat or drink.? You have worsening throat or chest pain.? You have dizziness, lightheadedness, or you faint.? You have nausea or vomiting.? You have chills.? You have a fever. ? You have severe abdominal pain.? You have black, tarry, or bloody stools.Document Released: 05/18/2013 Document Reviewed: 05/18/2013ExitCare? Patient Information ?2014 [employer]. This information is not intended to replace advice given to you by your health care provider. Make sure you discuss any questions you have with your health care provider. Normal [facility] Progress Note-Nurseon 2017 Protein mass conc FRANCOIS Rondon went ov er all discharge instructions with pt. Pt stating she remains in pain and I am just going to go home and suffer . This nurse notified pt that I can see if physician can order pain medication for her, pt refuses this and insists on going home. Pt without any further questions/needs. DC home. Normal [facility] Protein mass conc Physician to call GI Dr Roy. Holding discharge home at this time. Holding DC as pt remains in pain. Normal [facility] Protein mass conc Physician at bedside speaking to pt of test results. Normal [facility] Progress Note-Physicianon Protein mass conc Patient: SKIP HONG Age: 62 years Sex: Female : 1955 Associated Diagnoses: None Author: Jeyson Cordova DO, Kaden Howell Postoperative Information Post Operative Note: Post Anesthesia Care Unit. Anesthetic utilized: Monitored anesthesia care. Health Status Allergies: Allergic Reactions (Selected)Severity Not DocumentedAspirin- Anaphylactic reaction.Ciprofloxacin- Rash and rash.Dilaudid- Rash.Hydromet- Rash.Lodine- Rash.Morphine- Stomach pain.Percocet 5/325- Rash.Phenergan- Abdominal spasms.Stadol- Rash.Tape- Rash. Problem list: All ProblemsPancreatitis, acute / SNOMED CT 444031277 / ConfirmedFrozen shoulder / SNOMED CT 9776671144 / ConfirmedRIGHTArthritis / SNOMED CT 2329451 / Confirmedneck and lower backChronic colitis / SNOMED CT 24020393 / ConfirmedC. difficile diarrhea / SNOMED CT 0610256579 / [facility] 2 to 3 years agoRSD (reflex sympathetic dystrophy) / SNOMED CT 2356084609 / ConfirmedPancreatic cyst / SNOMED CT 94682916 / ConfirmedDiverticulosis / SNOMED CT 7475288269 / ConfirmedFibromyalgia / SNOMED CT 30880595 / ConfirmedAcid reflux / SNOMED CT 194669354 / ConfirmedH/O pleurisy / SNOMED CT 995136337 / ConfirmedIBS (irritable bowel syndrome) / SNOMED CT 62941325 / ConfirmedMigraines / SNOMED CT 57846919 / ConfirmedRare disorder causing involuntary movements and spasms / SNOMED CT 856304276 / ConfirmedesophagealLupus / SNOMED CT 68592223 / ConfirmedThoracic outlet syndrome / SNOMED CT 660176802 / ConfirmedbilateralResolved: Endometriosis / SNOMED CT [id number]-[id number] C3Qpdsejfx: Fibromyalgia / SNOMED CT [id number] T9Cdsupisi: Hyperlipidemia / SNOMED CT 22336406Vatyapnb: IBS (irritable bowel syndrome) / SNOMED CT [id number] 4CResolved: Pancreatitis / SNOMED CT 515677900Pyzdqmqx: RSD upper limb / SNOMED CT [id number] P7Bjjkausx: SLE (systemic lupus erythematosus) / SNOMED CT [id number] CFResolved: Thoracic outlet syndrome / SNOMED CT [id number] 20 Physical Examination Vital Signs 10/07/2017 09:50 EDT Heart Rate Monitored 63 bpm Respiratory Rate Monitored 18 br/min Systolic Blood Pressure 96 mmHg Diastolic Blood Pressure 59 mmHg LOW Blood Pressure Location Right arm SpO2 100 % 10/07/2017 09:45 EDT Heart Rate Monitored 65 bpm Respiratory Rate Monitored 19 br/min Systolic Blood Pressure 91 mmHg Diastolic Blood Pressure 46 mmHg LOW Blood Pressure Location Right arm SpO2 100 % 10/07/2017 09:43 EDT Heart Rate Monitored 80 bpm Respiratory Rate Monitored 18 br/min Systolic Blood Pressure 87 mmHg LOW Diastolic Blood Pressure 48 mmHg LOW Blood Pressure Location Right arm SpO2 94 % 10/07/2017 09:38 EDT Temperature Temporal Artery 36.5 DegC Heart Rate Monitored 79 bpm Respiratory Rate Monitored 18 br/min Systolic Blood Pressure 74 mmHg LOW Diastolic Blood Pressure 40 mmHg LOW Blood Pressure Location Right arm SpO2 95 % 10/07/2017 09:35 EDT Heart Rate Monitored 66 bpm bpm SpO2 100 % % 10/07/2017 09:30 EDT Heart Rate Monitored 72 bpm bpm SpO2 100 % % 10/07/2017 09:29 EDT Systolic Blood Pressure 140 mmHg mmHg Diastolic Blood Pressure 67 mmHg mmHg 10/07/2017 09:00 EDT Temperature Tympanic 36.1 DegC LOW Heart Rate Monitored 67 bpm Respiratory Rate Monitored 17 br/min Systolic Blood Pressure 109 mmHg Diastolic Blood Pressure 71 mmHg Blood Pressure Location Left arm SpO2 99 % 10/06/2017 23:09 EDT Peripheral Pulse Rate 83 bpm Respiratory Rate 20 br/min Systolic Blood Pressure 127 mmHg Diastolic Blood Pressure 85 mmHg SpO2 100 % 10/06/2017 22:08 EDT Peripheral Pulse Rate 64 bpm Respiratory Rate 18 br/min Systolic Blood Pressure 112 mmHg Diastolic Blood Pressure 87 mmHg SpO2 100 % 10/06/2017 20:34 EDT Peripheral Pulse Rate 80 bpm Respiratory Rate 22 br/min HI Systolic Blood Pressure 133 mmHg Diastolic Blood Pressure 82 mmHg SpO2 99 % 10/06/2017 19:49 EDT Temperature Oral 36.6 DegC Peripheral Pulse Rate 93 bpm Respiratory Rate 22 br/min HI Systolic Blood Pressure 119 mmHg Diastolic Blood Pressure 67 mmHg SpO2 96 % Vitals Signs (last 24 hrs) Last Charted Minimum MaximumTemp 36.5 (OCT 07:38) L 36.1 (OCT 07 09:00) 36.5 (OCT 07:38)Heart Rate 63 (OCT 07 09:50) 63 (OCT 07 09:50) 80 (OCT 07 09:43)Resp Rate 18 (OCT 07 09:50) 17 (OCT 07 09:00) 19 (OCT 07 09:45)SBP 96 (OCT 07 09:50) L 74 (OCT 07 09:38) 140 (OCT 07 09:29)DBP L 59 (OCT 07 09:50) L 40 (OCT 07 09:38) 71 (OCT 07 09:00)SpO2 100 (OCT 07 09:50) 94 (OCT 07 09:43) 100 (OCT 07 09:30) Documented vital signs Pain assessment: Pain Assessment 10/06/2017 22:07 EDT Primary Pain Location Abdomen Patient Preferred Pain Tool Numeric rating Numeric Pain Scale 8 Numeric Pain Score 8 10/06/2017 20:34 EDT Primary Pain Location Abdomen Primary Pain Laterality Left Primary Pain Radiation Yes Primary Pain Radiation Characteristics radiates around to left side of her back Primary Pain Quality Sharp Patient Preferred Pain Tool Numeric rating Numeric Pain Scale 8 Numeric Pain Score 8 10/06/2017 19:49 EDT Primary Pain Location Abdomen Primary Pain Laterality Bilateral Primary Pain Radiation Yes Primary Pain Radiation Characteristics upper back left, lower R abd to R lower back and down leg Patient Preferred Pain Tool Numeric rating . General: Alert and oriented, No acute distress. Respiratory: Lungs are clear to auscultation. Cardiovascular: Normal rate, Regular rhythm. Neurologic: Normal sensory. Review / Management Condition: Stable. Assessment Anesthetic outcome No anesthetic complications noted. Adequate pain relief. TOLERATING PO INTAKE. voiding w/o diff.. No Complaint of nausea and vomiting. Plan Transfer/ Discharge: Condition stable. Normal [facility] Comment on above: Result Comment: Elec tronically Signed By: Jeyson Cordova DO, Kaden Howell\.br\Date and Time Signed: 10/07/17 10:04 EDT Auto Diffon 10-06-2017 Basophils Auto #/vol (Bld) 0.3 % Normal 0.0-2.0 [facility] Comment on above: Order Comment: Order Added by Discern Expert. Performed By: #### 2 [id number], [id number], [id number], [id number], [id number], [id number], [id number] ####[facility] [address] [place] [address] Basophils/Leukocy jarrett Auto Pure number fraction (Bld) 0.0 E9/L Normal 0.0-0.2 [facility] Comment on above: Order Comment: Order Added by Discern Expert. Performed By: #### 2 [id number], [id number], [id number], [id number], [id number], [id number], [id number] ####[facility] [id number] [place] [address] Eosinophils/100 WBC Auto (Bld) 0.7 % Normal 0.0-8.0 [facility] Comment on above: Order Comment: Order Added by Discern Expert. Performed By: #### 2 [id number], [id number], [id number], [id number], [id number], [id number], [id number] ####[facility] [id number] [place] [address] Eosinophils/Leuko cytes Auto Pure number fraction (Bld) 0.1 E9/L Normal 0.0-0.5 [facility] Comment on above: Order Comment: Order Added by Discern Expert. Performed By: #### 2 [id number], [id number], [id number], 8274034, 6339396, [id number], [id number] ####[id number] [place] [address] Lymphocytes/100 WBC Auto (Bld) 14.7 % Normal 14.0-50.0 [facility] Comment on above: Order Comment: Order Added by Endy Expert. Performed By: #### 2 [id number], [id number], [id number], 9134822, 0369460, [id number], [id number] ####[id number] [place] [address] Lymphocytes/Leuko cytes Auto Pure number fraction (Bld) 1.6 E9/L Normal 1.0-4.0 [facility] Comment on above: Order Comment: Order Added by Discern Expert. Performed By: #### 2 905280, 0348540, 6351771, 4126711, 9645760, 0342826, 71245552 ####[facility] [address] [place] [address] Monocytes/100 WBC Auto (Bld) 11.9 % Normal 4.0-14.0 [facility] Comment on above: Order Comment: Order Added by Endy Expert. Performed By: #### 2 485345, 8459506, 0300808, 7276412, 2028720, 2845202, 17477675 ####[facility] [address] [place] [address] Monocytes/Leukocy jarrett Auto Pure number fraction (Bld) 1.3 E9/L High 0.2-1.0 [facility] Comment on above: Order Comment: Order Added by Discern Expert. Performed By: #### 2 341121, 0254995, 5345028, 8765324, 9575856, 7842173, 18552995 ####[facility] [address] [place] [address] Neutrophils/100 WBC Auto (Bld) 72.4 % Normal 36.0-75.0 [facility] Comment on above: Order Comment: Order Added by Discern Expert. Performed By: #### 2 065424, 0302944, 5539654, 5215393, 1724686, 0529573, 55908039 ####[address] [place] [address] Neutrophils/Leuko cytes Auto Pure number fraction (Bld) 7.7 E9/L High 2.0-7.5 [facility] Comment on above: Order Comment: Order Added by Discern Expert. Performed By: #### 2 372965, 4990084, 3941188, 6590664, 8170757, 0189560, 60572738 ####[facility] [address] [place] [address] CBC w/ Auto Diffon 8 Erythrocyte distribution width Auto Ratio (RBC) 13.7 % Normal 10.9-14.2 [facility] Comment on above: Performed By: #### 2 197042, 2590933, 7010748, 9486180, 2737769, 4721630, 63618889 ####[address] [place] [address] Hematocrit Auto Volume Fraction (Bld) 44.0 % Normal 34.0-46.0 [facility] Comment on above: Performed By: #### 2 348459, 6272702, 3743981, 4376803, 4168621, 0805558, 76435769 ####[facility] [address] [place] [address] Hemoglobin mass conc (Bld) 14.5 g/dL Normal 12.0-16.0 [facility] Comment on above: Performed By: #### 2 387267, 4980007, 4962399, 6752811, 2694685, 0628209, 84378541 ####[address] MCH Auto Entitic mass (RBC) 30.0 pg Normal 27.0-34.0 [facility] Comment on above: Performed By: #### 2 928311, 5122843, 4524543, 7517485, 1427809, 7849878, 26552816 ####[place] MCHC Auto mass conc (RBC) 33.0 g/dL Normal 31.4-39.3 [facility] Comment on above: Performed By: #### 2 578382, 7716841, 2253236, 0059491, 2979313, 1041428, 97545053 ####[place] MCV Auto Entitic volume (RBC) 90.9 fL Normal 80.0-100.0 [facility] Comment on above: Performed By: #### 2 485944, 3044256, 5495036, 7720311, 9204718, 2086937, 15858047 ####[place] Platelet mean volume Auto Entitic volume (Bld) 7.6 fL Normal 6.4-10.8 [facility] Comment on above: Performed By: #### 2 411934, 7036207, 3000556, 3763582, 9813722, 6676836, 67004476 ####[address] [address] Platelets Auto #/vol (Bld) 337.0 E9/L Normal 150.0-500. 0 [facility] Comment on above: Performed By: #### 2 474443, 8529298, 9286062, 9198124, 3768495, 1166646, 89610257 ####[place] [address] RBC Auto #/vol (Bld) 4.8 E12/L Normal 4.3-5.9 [facility] Comment on above: Performed By: #### 2 688107, 1418997, 7202671, 1365930, 9974164, 4935271, 54987661 ####[facility] [address] [place] [address] WBC corrected for nucl RBC Auto #/vol (Bld) 10.7 E9/L Normal 4.0-11.0 [facility] Comment on above: Performed By: #### 2 699295, 9827294, 1613031, 3990216, 9595107, 3170139, 97893414 ####[address] [address] CMPon 10-06-2017 Albumin mass conc 1.4 g/dL Normal 1.1-2.2 [facility] Comment on above: Performed By: #### 2 324699, 0079021, 6423114, 8113834, 2795181, 4543329, 08291947 ####[address] [address] Albumin mass conc 4.4 g/dL Normal 3.3-5.0 [facility] Comment on above: Performed By: #### 2 002574, 0311672, 1070660, 7501969, 4466235, 5019395, 59752796 ####[address] [address] ALP enzyme act/vol 85 Int._Unit/L Normal 21-98 [facility] Comment on above: Performed By: #### 2 546788, 1788602, 5155300, 5703461, 3730378, 2026025, 44678969 ####[facility] [address] [place] [address] ALT No additional P-5'-P enzyme act/vol 31 Int._Unit/L Normal 6-46 [facility] Comment on above: Performed By: #### 2 620703, 9603329, 5554582, 3776723, 7030281, 6783576, 88628236 ####[facility] [address] [place] [address] AST enzyme act/vol 33 Int._Unit/L Normal 5-43 [facility] Comment on above: Performed By: #### 2 841503, 2023946, 4474874, 7900808, 9822098, 0880890, 87126958 ####[facility] [address] [place] [address] Bilirubin mass conc 0.4 mg/dL Normal 0.0-1.1 [facility] Comment on above: Performed By: #### 2 580651, 2625757, 5406739, 7741533, 5048605, 5988012, 12944889 ####[facility] [address] [place] [address] Creatinine mass conc 0.9 mg/dL Normal 0.5-1.3 [facility] Comment on above: Performed By: #### 2 532388, 0454998, 8070942, 8290440, 6346093, 1859680, 93159875 ####[facility] [address] [place] [address] Globulin Calculated mass conc (S) 3.2 g/dL Normal 1.4-4.0 [facility] Comment on above: Performed By: #### 2 807629, 0466818, 6398542, 5948205, 6731060, 9554717, 73726703 ####[facility] [address] [place] [address] Protein mass conc 7.6 g/dL Normal 6.0-7.8 [facility] Comment on above: Performed By: #### 2 245865, 7424268, 7692165, 3012740, 7552369, 6765874, 82640242 ####[facility] [address] [place] [address] Urea nitrogen mass conc 10 mg/dL Normal 5-21 [facility] Comment on above: Performed By: #### 2 583036, 7547400, 7295975, 2980896, 0501603, 7067341, 19501545 ####[facility] [address] [place] [address] Urea nitrogen/Creatini ne mass ratio 11 No Units Normal 10-20 [facility] Comment on above: Performed By: #### 2 682772, 8093835, 1929995, 0811009, 5888238, 3129941, 74876422 ####[facility] [address] [place] [address] Anion gap 3 molar conc 15 mmol/L Normal 6-16 [facility] Comment on above: Performed By: #### 2 304552, 2321062, 2143648, 8880739, 8726708, 9710442, 40378874 ####[facility] [address] [place] [address] Calcium mass conc 9.4 mg/dL Normal 8.9-11.1 [facility] Comment on above: Performed By: #### 2 094842, 3338483, 0665380, 2904222, 4342160, 0406085, 85810307 ####[facility] [address] [place] [address] Chloride molar conc 105 mmol/L Normal 101-111 [facility] Comment on above: Performed By: #### 2 225341, 1901218, 4131128, 5009827, 4976925, 4643436, 18048395 ####[facility] [address] [place] [address] CO2 molar conc 22 mmol/L Normal 21-31 [facility] Comment on above: Performed By: #### 2 756822, 7047205, 8459296, 0002539, 9383754, 8280597, 31130549 ####[facility] [address] [place] [address] Glucose mass conc 111 mg/dL Normal 55-199 [facility] Comment on above: Result Comment: If t his glucose result represents a fasting glucose, interpretation should refer to the following reference range: 55-99 mg/dL Performed By: #### 2 412222, 3160440, 0367029, 8756407, 7135194, 4446891, 85003342 ####[facility] [address] [place] [address] Potassium molar conc 3.8 mmol/L Normal 3.5-5.3 [facility] Comment on above: Performed By: #### 2 666623, 3812785, 2975857, 0915569, 0325305, 2446684, 18413318 ####[facility] [address] [place] [address] Sodium molar conc 138 mmol/L Normal 135-145 [facility] Comment on above: Performed By: #### 2 346215, 8501735, 6337133, 5231439, 6638407, 2864546, 68995337 ####[address] [place] [address] Cardiac 0 Hr.on 10-06-2017 Creatine kinase.MB 1.0 ng/mL Normal 0.3-4.9 [facility] Comment on above: Performed By: #### 2 105733, 0361826, 2873167, 2166392, 4229892, 5750742, 89186882 ####[facility] [address] [place] [address] Myoglobin mass conc 16 ng/mL Normal <=69 [facility] Comment on above: Performed By: #### 2 803394, 9186319, 6482322, 4849139, 8902957, 6594406, 33642560 ####[facility] [address] [place] [address] Troponin I.cardiac mass conc ng/mL Normal <=0.03 [facility] Comment on above: Result Comment: New Troponin Assay 10/27/13ROC [place] Cutoff value > or = 0.03 ng/mL in conjunction with clinical conditions of myocardial infarction.([email or web address]) Performed By: #### 2 053014, 0280218, 7734203, 2212231, 7737135, 6109916, 97473681 ####[facility] [address] [place] [address] CK enzyme act/vol 70 Int._Unit/L Normal 14-261 [facility] Comment on above: Performed By: #### 2 898630, 2879732, 1938550, 0327049, 6114748, 3593006, 61803442 ####[facility] [address] [place] [address] Coding Summary.on 10-06-2017 Coding Summary. CODING DATE: FINAL [facility] STATUS: Home (Routine DC) PAYOR: Medicare APC DESCRIPTION 5571 Level 1 Imaging with Contrast 5024 Level 4 Type A ED Visits 5693 Level 3 Drug Administration 5691 Level 1 Drug Administration ADMIT DX: REASON FOR VISIT DX: M54.5 Low back pain R10.84 Generalized abdominal pain FINAL DX: PRINCIPAL: K59.00 Constipation, unspecified SECONDARY: E78.5 Hyperlipidemia, unspecified M32.9 Systemic lupus erythematosus, unspecified PYMT PROC APC STAT DESCRIPTION DOCTOR NAME DATE NOTE: The code number assigned matches the documented diagnosis and / or procedure in the patient's chart. However, the narrative phrase printed from the coding software may appear abbreviated, or result in slightly different terminology. Coded By: Dulce Germain Date Saved: 10/06/2017 09:07 am Normal [facility] Coding Summary. CODING DATE: FINAL [facility] STATUS: Home (Routine DC) PAYOR: Medicare APC DESCRIPTION 5571 Level 1 Imaging with Contrast ADMIT DX: REASON FOR VISIT DX: M54.5 Low back pain R10.84 Generalized abdominal pain FINAL DX: PRINCIPAL: K59.00 Constipation, unspecified SECONDARY: E78.5 Hyperlipidemia, unspecified M32.9 Systemic lupus erythematosus, unspecified PYMT PROC APC STAT DESCRIPTION DOCTOR NAME DATE NOTE: The code number assigned matches the documented diagnosis and / or procedure in the patient's chart. However, the narrative phrase printed from the coding software may appear abbreviated, or result in slightly different terminology. Coded By: Dulce Germain Date Saved: 10/06/2017 09:06 am Normal [facility] ED Note-Physicianon 10-07-19 18 ED Note-Physician Basic Information Ti me Seen: Carley PARISI, Kade Sloan 10/06/2017 19:47Chief Complaint abd and back pain since last thursday. hx of chronic pancreatitis. pt was seen here 10/05 in ED. also had xray done at [facility] today. Dr Roy doing endoscopy tomorrow. pt has been passing stool. pt had bm in pants on the way here. pt nauseated and vomitingPhysical Exam Vitals & Measurements T: 36.6 ?C (Oral) HR: 93(Peripheral) RR: 22 BP: 119/67 SpO2: 96% HT: 160 cm WT: 60 kg BMI: 23.44 Medical Decision Making HISTORY OF PRESENT ILLNESS: Past medical history of remote bladder cancer with urostomy placement presents for chief complaint of crampy lower abdominal pain for the past three days. Patient has had worsening abdominal pain over the past three days. So she was fevers or chills. One episode of vomiting. No diarrhea or purpura blood per rectum. No urinary complaints. Severity is moderate. No aggravating or relieving factors. Timing is three days. Course is worsening. Context is previous cancer ED Caveat: [none] ROS *see ED Caveat Gen: No fever, no chills CV: No CP, no palpitations Resp: No SOB, no respiratory distress GI: No D : No dysuria, no increased frequency Skin: No rash, no purulent lesions Eyes: No blurry vision, No double vision MSK: No back pain, no joint pain Neuro: No [place], no sensation changes Psych: No SI/HI Allergies -reviewed PMH -See HPI Social History -No daily drinking, no IV drugs PHYSICAL EXAM Gen: Alert, no acute distress Skin: Warm, no rashes Head: Normocephalic, atraumatic Neck: No midline tenderness, no nuchal rigidity Eye: EOMI, PERRLA, normal conjunctiva ENT: Mucous membranes moist, no pharyngeal erythema CV: Normal rate, no rubs Resp: Respirations unlabored, lungs clear to auscultation GI: Soft, non distended, no large abdominal masses, mild diffuse tenderness without rebound MSK: No midline back pain, no large joint effusions Neuro: Alert and oriented, no focal neurological deficits observed Psych: Cooperative, appropriate mood and affect MEDICAL DECISION MAKING Differential Diagnosis: - Consideration is given for appendicitis, cholecystitis, dissection, diverticulitis, SBO, urinary tract infection, ischemia to reproductive organs, ACS, ischemic colitis, Impression/Plan: -Clinically most concerning for possible diverticulitis or diverticulitis this or urinary tract infection. Given patient's presentation and worsening pain will get further imaging as well as laboratory testing. Disposition will be a based off this and symptomatic improvement Reevaluation/Conversations on care: - I have independently reviewed and interpreted any ordered labs and/or imaging. - Dx -Abdominal pain Kade Howe MD, [facility] Attending Questions? Please contact my cell phone anytime. *This charting supersedes any ED resident or staff charting and was written using speech recognition softwareAssessment/Plan 1. Abdominal pain Orders: Cardiac 0 Hr. CBC w/ Auto Diff Comprehensive Metabolic Panel CT Abdomen/Pelvis w/ Contrast ECG 12 Lead Adult Lactic Acid Lipase Level Magnesium Level UA With Cult ReflexDisposition Plan Discharge Prescription List Prescriptions No active prescription medications Follow-up No qualifying data availableProblem List/Past Medical History Ongoing No qualifying data Historical Endometriosis Fibromyalgia Hyperlipidemia IBS (irritable bowel syndrome) Pancreatitis RSD upper limb SLE (systemic lupus erythematosus) Thoracic outlet syndromeProcedure/Surgical History section, Colonoscopy, Endoscopy, Gallbladder, History of hysterectomy.., History of tonsillectomy, Laparoscope, Laparoscopic right ovarian cystectomy 08-APR-2016 14:41:17<$>, mri/ct abd, right shoulder scope, Thoracic outlet syndrome 08-APR-2016 17:54:24<$>.Medications Inpatient No active inpatient medications Home Creon, Oral, TIDAC omeprazole, 40 mg, Oral, DailyAllergies Dilaudid (Rash) Hydromet (Rash) Lodine (Rash) Percocet 5/325 (Rash) Phenergan (Abdominal spasms) Stadol (Rash) Tape (Rash) aspirin (Anaphylactic reaction) ciprofloxacin (Rash, Rash) morphine (Stomach pain)Social History Alcohol - Denies Alcohol Use, 10/06/2017 Substance Abuse - Denies Substance Abuse, 01/30/2016 Tobacco - Denies Tobacco Use, 01/30/2016Lab Results No qualifying data available.Diagnostic Results No qualifying data available. Normal [facility] Comment on above: Result Comment: Elec tronically Signed By: Carley PARISI, Kade Reich.br\Date and Time Signed: 10/06/17 20:26 EDT Lactic Acidon 10-06-2017 Lactate mass conc 12.3 mg/dL Normal 4.5-19.8 [facility] Comment on above: Performed By: #### 2 208906, 8661343, 0082129, 9407045, 2560145, 0318250, 00437679 ####[facility] [address] [place] [address] Lipase Levelon 10-06-2017 Lipase enzyme act/vol 22 unit/L Normal 13-58 [facility] Comment on above: Performed By: #### 2 679882, 8242224, 0021689, 4792173, 1593075, 1731890, 81117215 ####[facility] [address] [place] [address] Magnesiumon 10-06-2017 Magnesium mass conc 2.1 mg/dL Normal 1.3-2.4 [facility] Comment on above: Performed By: #### 2 611540, 2515640, 4688400, 4244110, 9222965, 1764360, 01104312 ####[facility] [address] [place] [address] Progress Note-Nurseon 2017 Protein mass conc Pt to CT scan now. Normal [facility] Protein mass conc Pt up to restroom wi th significant other at this time. Normal [facility] Protein mass conc Pt resting in bed, U A sent to lab. Pts significant other at bedside. Pt aware of plan, waiting to go to CT and waiting for test results. Call light in reach. Normal [facility] Protein mass conc Physician at bedside assessing patient at this time. Normal [facility] UA With Cult Reflexon 2017 Bilirubin Ql (U) Negative Normal Negative [facility] Comment on above: Performed By: #### 2 825404, 5770567, 0866616, 6042309, 3304718, 9445177, 86622753 ####[facility] [address] [place] [address] Clarity Nom (U) CLEAR Normal Clear [facility] Comment on above: Performed By: #### 2 205314, 5201250, 7361342, 3220603, 7409399, 6982003, 01429754 ####[facility] [address] [place] [address] Color Auto Nom (U) YELLOW Normal Yellow [facility] Comment on above: Performed By: #### 2 513623, 0152556, 4477220, 6068507, 2263221, 5590331, 48887505 ####[facility] [address] [place] [address] Epithelial cells.squamous LM.HPF #/area (Urine sed) 0-2 Normal 0-2 [facility] Comment on above: Performed By: #### 2 484492, 7402292, 6288075, 6932132, 9901277, 2669748, 45995200 ####[facility] [address] [place] [address] Glucose Test strip mass conc (U) Negative Normal Negative [facility] Comment on above: Performed By: #### 2 498754, 4668839, 8637158, 5096460, 9793206, 2638812, 19549750 ####[facility] [address] [place] [address] Hemoglobin Test strip Ql (U) Negative Normal Negative [facility] Comment on above: Performed By: #### 2 396933, 8375318, 3468760, 1921849, 6388468, 7781231, 53757297 ####[facility] [address] [place] [address] Ketones mass conc (U) Negative Normal Negative [facility] Comment on above: Performed By: #### 2 598477, 2157857, 1867881, 9850241, 6072425, 5506977, 82686523 ####[facility] [address] [place] [address] Kipton.plasma/Li thium.RBC mass ratio (Bld) 0-3 Normal 0-3 [facility] Comment on above: Performed By: #### 2 174860, 3886672, 1605824, 5824998, 1880418, 8933708, 69955077 ####[facility] [address] [place] [address] Nitrite Test strip Ql (U) Negative Normal Negative [facility] Comment on above: Performed By: #### 2 623991, 9167339, 7319939, 3489715, 5525009, 7592313, 55716782 ####[facility] [address] [place] [address] pH Test strip (U) 5.5 [pH] Invalid Interpretation Code 5.0-9.0 [facility] Comment on above: Performed By: #### 2 516289, 5378955, 7574329, 4591922, 4133517, 3185283, 56179743 ####[address] [address] Protein mass conc (U) Negative Normal Negative [facility] Comment on above: Performed By: #### 2 323895, 3985784, 1092250, 7443869, 6157836, 5100749, 27982384 ####[address] [address] Specific gravity Relative Density (U) <=1.005 Invalid Interpretation Code 1.005-1.03 0 [facility] Comment on above: Performed By: #### 2 229151, 1126363, 1945988, 9761855, 1913195, 5400807, 61682393 ####[facility] [address] [place] [address] UA Spec Desc Clean Catch Normal [facility] Comment on above: Performed By: #### 2 014652, 8450016, 2193974, 9798610, 7424021, 1791737, 34513174 ####[facility] [address] [place] [address] Urobilinogen Test strip Qn (U) 0.2 {Antonina'U}/dL Normal 0.0-1.0 [facility] Comment on above: Performed By: #### 2 028648, 5010505, 9942218, 3823396, 9071561, 1099971, 01984968 ####[facility] [address] [place] [address] WBC Auto Ql (U) TRACE Abnormal Negative [facility] Comment on above: Performed By: #### 2 335012, 2244427, 1580300, 3003967, 4994722, 0602480, 84139722 ####[facility] [address] [place] [address] WBC LM.HPF #/area (Urine sed) 0-5 Normal 0-5 [facility] Comment on above: Performed By: #### 2 954568, 3151270, 9049205, 9229988, 3235222, 5483181, 81978948 ####[facility] [address] [place] [address] eGFRon 10-06-2017 GFR/1.73 sq M predicted among blacks MDRD vol rate/area (S/P/Bld) mL/min/{1.73_m2} Normal >=59 [facility] Comment on above: Order Comment: Order added by Discern Expert. Result Comment: eGFR is race adjusted. AA=. Performed By: #### 2 473583, 0351475, 3606103, 1686969, 5032298, 2953926, 70062342 ####[facility] [address] [place] [address] GFR/1.73 sq M predicted among non-blacks MDRD vol rate/area (S/P/Bld) mL/min/{1.73_m2} Normal >=59 [facility] Comment on above: Order Comment: Order added by Discern Expert. Result Comment: Product Development Chemist seng kidney disease could be indicated at eGFR's of less than 60 mL/min/1.73m2. Kidney failure is indicated at less than 15 mL/min/1.73m2. Performed By: #### 2 051958, 8477665, 6278318, 0849393, 0990931, 6491959, 43013938 ####[address] [place] [address] Auto Diffon 10-05-2017 Basophils Auto #/vol (Bld) 0.4 % Normal 0.0-2.0 [facility] Comment on above: Order Comment: Order Added by Discern Expert. Performed By: #### 2 785718, 4249422, 4599291, 6688589, 6381691, 6281448, 58497012 ####[address] [address] Basophils/Leukocy jarrett Auto Pure number fraction (Bld) 0.0 E9/L Normal 0.0-0.2 [facility] Comment on above: Order Comment: Order Added by Discern Expert. Performed By: #### 2 889050, 8117018, 9501757, 1736817, 4716114, 0798606, 54540122 ####[address] [address] Eosinophils/100 WBC Auto (Bld) 1.3 % Normal 0.0-8.0 [facility] Comment on above: Order Comment: Order Added by Discern Expert. Performed By: #### 2 200538, 0238678, 7083561, 4379959, 2444854, 9799768, 65838834 ####[address] [address] Eosinophils/Leuko cytes Auto Pure number fraction (Bld) 0.1 E9/L Normal 0.0-0.5 [facility] Comment on above: Order Comment: Order Added by Discern Expert. Performed By: #### 2 505785, 2968762, 6073767, 8969251, 1462554, 1956199, 72381378 ####[address] [address] Lymphocytes/100 WBC Auto (Bld) 19.8 % Normal 14.0-50.0 [facility] Comment on above: Order Comment: Order Added by Discern Expert. Performed By: #### 2 775036, 8637827, 0556686, 0710049, 5959121, 2866933, 98140837 ####[address] [place] [address] Lymphocytes/Leuko cytes Auto Pure number fraction (Bld) 1.5 E9/L Normal 1.0-4.0 [facility] Comment on above: Order Comment: Order Added by Discern Expert. Performed By: #### 2 735626, 1572935, 7375892, 1000062, 2365854, 2974343, 77264294 ####[address] [place] [address] Monocytes/100 WBC Auto (Bld) 11.5 % Normal 4.0-14.0 [facility] Comment on above: Order Comment: Order Added by Discern Expert. Performed By: #### 2 975887, 1798158, 1546100, 4793516, 9114741, 5144881, 87035584 ####[address] [address] Monocytes/Leukocy jarrett Auto Pure number fraction (Bld) 0.9 E9/L Normal 0.2-1.0 [facility] Comment on above: Order Comment: Order Added by Discern Expert. Performed By: #### 2 898737, 8905312, 9770608, 6459013, 6938080, 0230969, [id number] ####[id number] [place] [address] Neutrophils/100 WBC Auto (Bld) 67.0 % Normal 36.0-75.0 [facility] Comment on above: Order Comment: Order Added by Discern Expert. Performed By: #### 2 700553, 5971696, 9873583, 4269081, 1587455, 0005832, [id number] ####[address] [place] [address] Neutrophils/Leuko cytes Auto Pure number fraction (Bld) 4.9 E9/L Normal 2.0-7.5 [facility] Comment on above: Order Comment: Order Added by Discern Expert. Performed By: #### 2 289008, 6677588, 6663376, 9503902, 3370794, 6146298, [id number] ####[facility] [address] [place] [address] BMPon 10-05-2017 Creatinine mass conc 0.7 mg/dL Normal 0.5-1.3 [facility] Comment on above: Performed By: #### 2 544327, 4879428, 6603198, 7188114, 0776294, 2251009, 09834460 ####[facility] [address] [place] [address] Urea nitrogen mass conc 8 mg/dL Normal 5-21 [facility] Comment on above: Performed By: #### 2 779478, 5392372, 6497130, 4677911, 7367784, 7530147, 83068078 ####[facility] [address] [place] [address] Urea nitrogen/Creatini ne mass ratio 11 No Units Normal 10-20 [facility] Comment on above: Performed By: #### 2 904507, 7546611, 5564467, 5520903, 6068642, 1769486, 16160501 ####[facility] [address] [place] [address] Anion gap 3 molar conc 10 mmol/L Normal 6-16 [facility] Comment on above: Performed By: #### 2 714291, 8726686, 3625497, 8194618, 9532599, 3938768, 14508368 ####[facility] [address] [place] [address] Calcium mass conc 9.3 mg/dL Normal 8.9-11.1 [facility] Comment on above: Performed By: #### 2 517055, 2053758, 4486048, 1054957, 4198722, 7797478, 26667494 ####[facility] [address] [place] [address] Chloride molar conc 107 mmol/L Normal 101-111 [facility] Comment on above: Performed By: #### 2 842015, 7250238, 9417555, 5396974, 5905142, 6413097, 32410758 ####[facility] [address] [place] [address] CO2 molar conc 27 mmol/L Normal 21-31 [facility] Comment on above: Performed By: #### 2 592648, 4026332, 2648353, 1516582, 9867841, 1940708, 14468411 ####[facility] [address] [place] [address] Glucose mass conc 92 mg/dL Normal 55-199 [facility] Comment on above: Result Comment: If t his glucose result represents a fasting glucose, interpretation should refer to the following reference range: 55-99 mg/dL Performed By: #### 2 179059, 0309244, 1633982, 3611450, 2121427, 9852846, 86977572 ####[facility] [address] [place] [address] Potassium molar conc 3.6 mmol/L Normal 3.5-5.3 [facility] Comment on above: Performed By: #### 2 710006, 6279536, 5939889, 5682022, 3521465, 1628231, 47527250 ####[facility] [address] [place] [address] Sodium molar conc 140 mmol/L Normal 135-145 [facility] Comment on above: Performed By: #### 2 178173, 7208901, 8818831, 0589525, 6428164, 8045259, 01274851 ####[facility] [address] [place] [address] CBC w/ Auto Diffon 8 Erythrocyte distribution width Auto Ratio (RBC) 13.8 % Normal 10.9-14.2 [facility] Comment on above: Performed By: #### 2 171748, 3396812, 6973514, 5519156, 4382689, 1573709, 66839187 ####[facility] [address] Hematocrit Auto Volume Fraction (Bld) 40.8 % Normal 34.0-46.0 [facility] Comment on above: Performed By: #### 2 755394, 2830165, 8360683, 4933994, 7791424, 1585904, 18650596 ####[address] Hemoglobin mass conc (Bld) 13.7 g/dL Normal 12.0-16.0 [facility] Comment on above: Performed By: #### 2 623355, 9931111, 8203976, 0466025, 5793538, 4880895, 14791849 ####[address] MCH Auto Entitic mass (RBC) 30.3 pg Normal 27.0-34.0 [facility] Comment on above: Performed By: #### 2 522167, 1672533, 5778467, 3271617, 9527085, 6730261, 79820227 ####[facility] [address] [place], [place] [address] MCHC Auto mass conc (RBC) 33.6 g/dL Normal 31.4-39.3 [facility] Comment on above: Performed By: #### 2 785452, 6428327, 6575105, 3121960, 4384449, 9645674, 56089180 ####[address] MCV Auto Entitic volume (RBC) 90.1 fL Normal 80.0-100.0 [facility] Comment on above: Performed By: #### 2 289376, 3034292, 2458250, 3336661, 1624983, 2687731, 41208838 ####[address] Platelet mean volume Auto Entitic volume (Bld) 7.5 fL Normal 6.4-10.8 [facility] Comment on above: Performed By: #### 2 406093, 3170999, 4219557, 0879891, 1423268, 7708452, 08753327 ####[facility] [address] [place] [address] Platelets Auto #/vol (Bld) 280.0 E9/L Normal 150.0-500. 0 [facility] Comment on above: Performed By: #### 2 934877, 7793448, 7126902, 6167684, 4846224, 3989414, 74916636 ####[facility] [address] [place] [address] RBC Auto #/vol (Bld) 4.5 E12/L Normal 4.3-5.9 [facility] Comment on above: Performed By: #### 2 541214, 0027612, 9575645, 7206937, 2435640, 0834029, 64440813 ####[facility] [address] [place] [address] WBC corrected for nucl RBC Auto #/vol (Bld) 7.4 E9/L Normal 4.0-11.0 [facility] Comment on above: Performed By: #### 2 964764, 6849278, 8074663, 5083987, 4467889, 2009094, 39928809 ####[facility] [address] [place] [address] Abdomen/Pelvis w/ Contras ton 10-05-2017 CT Abdomen/Pelvis w/ Contrast Exam Date/Time:10/05/2017 10:33 EDTReason for Exam:PainReportIMPRESSION:1. ABUNDANT FECAL MATTER IN THE COLON SUGGESTS CONSTIPATION.2. SMALL BOWEL UNREMARKABLE AND THERE IS NO BOWEL OBSTRUCTION.3. PRIOR CHOLECYSTECTOMY, APPENDECTOMY AND HYSTERECTOMY.4. NO ORGANOMEGALY, MASS, FREE FLUID , ABSCESS OR PNEUMOPERITONEUM.5. NORMAL SIZE KIDNEYS WITHOUT NEPHROLITHIASIS OR HYDRONEPHROSIS.CLINICAL HISTORY: BILATERAL FLANK PAIN, HISTORY OF PANCREATITIS AND IRRITABLE BOWELSYNDROME SURGICAL HISTORY OF CHOLECYSTECTOMY, APPENDECTOMY AND HYSTERECTOMYCOMMENT: CT ABDOMEN AND PELVIS WITH IV CONTRASTTECHNIQUE: CT abdomen and pelvis was obtained following intravenous injection 100 ccof Isovue-300. Also, oral contrast media was given for this CT scan. FINDINGS: There is evidence of a previous cholecystectomy. Mild extrahepatic biliarydilatation can be a common finding following a cholecystectomy. There are no dilatedintrahepatic biliary ducts. The liver, spleen, pancreas, kidneys and adrenal glandsappear normal. No retroperitoneal adenopathy. No free fluid or pneumoperitoneum.Stomach and upper GI tract appear unremarkable. There has been an appendectomy. Thereis abundant fecal matter in the colon suggesting constipation. Small bowel appearsunremarkable and there is no bowel obstruction.CT scan of the pelvis confirms a previous hysterectomy. Urinary bladder appearsnormal. There is no pelvic mass, adenopathy or free fluid in the pelvis. There isno inguinal hernia or adenopathy. Bone spurring in LS-spine.All CT scans at this facility use dose modulation, iterative reconstruction, and/orweight based dosing when appropriate to reduce radiation dose to as low asreasonably achievable. FINAL REPORT Dictated: 10/05/2017 11:15 am Andrea Barajas MD Signed (Electronic Signature): 10/05/2017 11:15 am Signed by: Andrea Barajas MD Transcribed by: [place] Technologist: Travis GreenGFR (mL/min/1/73m2) >60Contrast: Isovue 300Contrast amount in ml's: 100 Normal [facility] ED Clinical Summaryon 2017 ED Clinical Summary [address] [address] ED Clinical SummaryPerson Information Name: SKIP HONG/[facility] Age: 62 Years : 1955 12:00 AM Sex: Female Language:Bolivian PCP: Anitha Ramey MD Marital Status: Visit Id: Visit Reason:Constipation; Back pain; Abdominal pain; BACK PAIN Speciality: Acuity: 3 Enc Type: Emergency Med Service: Emergency Arrival:10/05/2017 8:17 AM Discharge: 10/05/2017 1:10 PM LOS: 000 04:53 Checkin:10/05/2017 8:17 AM Checkout: 10/05/2017 1:10 PM Dispo Type: Home (Routine DC) EVENTS:Event Name Event Status Request Date/Time Start Date/Time Complete Date/Time Arrive Complete 10/05/2017 8:17 AM 10/05/2017 8:17 AM 10/05/2017 8:17 AM Document Home Meds Complete 10/05/2017 8:17 AM 10/05/2017 11:59 AM 10/05/2017 11:59 AM Triage Complete 10/05/2017 8:17 AM 10/05/2017 8:33 AM 10/05/2017 8:33 AM Bed Assign Complete 10/05/2017 8:24 AM 10/05/2017 8:24 AM 10/05/2017 8:[address] Exam Complete 10/05/2017 8:24 AM 10/05/2017 8:27 AM 10/05/2017 8:27 AM RN Exam Complete 10/05/2017 8:24 AM 10/05/2017 9:21 AM 10/05/2017 9:21 AM Registration Complete 10/05/2017 8:27 AM 10/05/2017 9:19 AM 10/05/2017 9:[address] Exam Complete 10/05/2017 8:27 AM 10/05/2017 8:27 AM 10/05/2017 8:27 AM Isolation Screening Request 10/05/2017 8:33 AM Meds Admin Complete 10/05/2017 8:36 AM 10/05/2017 9:38 AM Pending Labs Complete 10/05/2017 8:36 AM 10/05/2017 9:45 AM Lab Complete 10/05/2017 8:36 AM 10/05/2017 9:45 AM Urine Collect Complete 10/05/2017 8:36 AM 10/05/2017 9:45 AM Patient Care Cancel 10/05/2017 8:36 AM 10/05/2017 12:07 PM Pending Labs Complete 10/05/2017 8:54 AM 10/05/2017 8:54 AM 10/05/2017 9:15 AM Lab Complete 10/05/2017 8:54 AM 10/05/2017 8:54 AM 10/05/2017 9:15 AM Pending Labs Complete 10/05/2017 9:01 AM 10/05/2017 9:01 AM 10/05/2017 9:01 AM Lab Complete 10/05/2017 9:01 AM 10/05/2017 9:01 AM 10/05/2017 9:01 AM Reg Complete Request 10/05/2017 9:19 AM Reg Bed Request Complete 10/05/2017 9:19 AM 10/05/2017 9:19 AM 10/05/2017 9:19 AM Meds Admin Complete 10/05/2017 9:33 AM 10/05/2017 10:[address] Complete 10/05/2017 10:02 AM 10/05/2017 10:07 AM 10/05/2017 10:33 AM Meds Admin Complete 10/05/2017 11:16 AM 10/05/2017 11:21 AM Meds Admin Complete 10/05/2017 11:28 AM 10/05/2017 12:06 PM 10/05/2017 12:06 PM Discharge Complete 10/05/2017 11:43 AM 10/05/2017 1:10 PM 10/05/2017 1:10 PM Meds Admin Complete 10/05/2017 12:24 PM 10/05/2017 12:32 PM Transfer Complete 10/05/2017 1:10 PM 10/05/2017 1:10 PM 10/05/2017 1:10 PM ADDRESS:[address] [place] [id number] PHYS DOC NOTES: MEDICAL INFORMATION: Prescriptions Given:Prescription Display polyethylene glycol 3350 (Miralax 3350 17 gram packet) 17 gram, Oral, Daily, # 170 gram, Refills(s) 0 PATIENT EDUCATION INFORMATION: Instructions:Constipation, Adult; Abdominal Pain, Adult Follow up:With: Address: When: [facility], [address] [place] [address] Business (1) In 3 days 10/08/2017 DIAGNOSIS:Abdominal pain; Constipation Normal [facility] ED Note-Physicianon 10-06-19 18 ED Note-Physician Basic Information Ti me Seen: Cas Lam PA-C 10/05/2017 08:27Chief Complaint 6 days of low/mid back pain radiating around both sides of pelvis to suprapubic area as well as LUQ abd pain and no bm x 3 days. Started Creon 7 days ago for chronic pancreatitis. no vomiting, no urinary c/o, no feverHistory of Present Illness 62-year-old female comes to the ED for evaluation of abdominal pain. She has a history of chronic pancreatitis. 7 days ago she was started on Creon. The last 6 days she's had generalized abdominal pain and low back pain. She had nausea but no vomiting. No urinary complaints. She has had associated constipation, reporting one episode of watery stools over the same time frame. No chest pain or shortness of breath. No cough or congestion. No fever or chills. She is also on Orange and Zanaflex without improvement. No other prior treatments.Review of Systems Unless otherwise stated in this report or unable to obtain because of patient's clinical or mental status as evidenced by the medical record, the patient's positive and negative responses for review of systems for constitutional, eyes, ENT, cardiovascular, respiratory, gastrointestinal, neurological, genitourinary, musculoskeletal, and integument systems and related systems to the presenting problem are either as stated in the HPI or were not pertinent or were negative for the symptoms and/or complaints related to the presenting medical problem. Medical and Surgical History: Reviewed and noted Social history: Lives at home Tobacco: DeniesPhysical Exam Vitals & Measurements T: 36.4 ?C (Oral) HR: 72(Peripheral) RR: 16 BP: 138/67 SpO2: 99% HT: 160 cm WT: 61 kg BMI: 23.83 Nurses notes and vital signs reviewed and patient is not hypoxic. General: Appears uncomfortable. Awake and alert. Skin: Warm, dry, no pallor noted. Head: Atraumatic. Neck: No JVD. Eye: Normal conjunctiva. Ears, Nose, Mouth, and Throat: Moist mucous members. Cardiovascular: Strong distal pulses. Chest wall: Respiratory: Respirations are nonlabored. Back: Normal range of motion, no CVA tenderness. Musculoskeletal: Normal ROM with no gross deformity. Gastrointestinal: Generalized tenderness without focal finding. No guarding, rebound or rigidity. No distention. Urological: Neurological: Awake and alert. No focal deficits. Follows commands. GCS 15. Psychiatric: Cooperative.Medical Decision Making Laboratory studies reviewed and noted. Patient with continued abdominal pain requiring narcotic medications and a computed tomography scan was obtained. Review by radiologist as significant for constipation. No other acute abnormality. This does match her history. She was offered enemas here in the ED has declined was to be discharged home with medications. She is prescribed MiraLAX and magnesium citrate. She will follow up with her GI physician.Patient was encouraged to return to the ED if symptoms worsen or change.Assessment/Plan Abdominal pain Constipation Orders: polyethylene glycol 3350, 17 gram, Oral, Daily, # 170 gram, Refills(s) 0 Sodium Chloride 0.9% intravenous solution 1,000 mL, 1,000 mL, IV, 125 mL/hr, STAT, Start date 10/05/17 11:28:00 EDT, 8 hour(s), Total volume (mL): 1,000 Automated Diff Basic Metabolic Panel CBC w/ Auto Diff CT Abdomen/Pelvis w/ Contrast eGFR Hepatic Function Panel Lactic Acid Lipase Level UA With Cult ReflexMedications Administered Given NS 1000 ml Bolus 1,000 mL, 1000 mL, IV NS 1000 mL Soln-IV 1,000 mL, 1000 mL, IV fentaNYL 50 mcg/mL Inj 2 mL, 50 microgram, IV Push ketorolac 30 mg/mL Inj 1 mL, 30 mg, IV Zofran 4 mg/2 mL Injection, 4 mg, IV PushDisposition Plan Patient Discharge Condition Disposition: Discharged home Condition: Improved and stable Counseled: Patient and/or family were counseled to workup, results, treatment plan and follow-up recommendations Discharge Prescription List Prescriptions Miralax 3350 17 gram packet, 17 gram, Oral, Daily Follow-up With When Contact Information Luli Roy In 3 days 10/08/2017 EDT [facility] [address] [place] [address]- Business (1) Additional Instructions: Patient Education Constipation, Adult Abdominal Pain, AdultAttestation Patient seen and evaluated by the physician promotional advertising assistant. Attending physician was present in the emergency department and supervised care. This report was transcribed using voice recognition software. Every effort was made to ensure accuracy, however, inadvertently computerized broadband engineer mistakes may be present.Problem List/Past Medical History Ongoing No qualifying data Historical Endometriosis Fibromyalgia Hyperlipidemia IBS (irritable bowel syndrome) Pancreatitis RSD upper limb SLE (systemic lupus erythematosus) Thoracic outlet syndromeProcedure/Surgical History section, Colonoscopy, Endoscopy, Gallbladder, History of hysterectomy.., History of tonsillectomy, Laparoscope, Laparoscopic right ovarian cystectomy 08-APR-2016 14:41:17<$>, mri/ct abd, right shoulder scope, Thoracic outlet syndrome 08-APR-2016 17:54:24<$>.Medications Inpatient NS 1000 mL Soln-IV 1,000 mL, 1000 mL, IV Home acetaminophen-hydrocodone 325 mg-5 mg oral tablet, Oral, TID, PRN hyoscyamine, 0.125 mg, Oral Miralax 3350 17 gram packet, 17 gram, Oral, Daily Nitro 0.4 mg Tab, 1 tab(s), SubLingual, q5min, PRN Phenergan, 25 mg, Oral, q4hr, PRN simvastatin, 20 mg, Oral, Once a day (at bedtime) tramadol, 50 mg, Oral, PRN Zofran 4 mg Tab, 4 mg= 1 tab(s), Oral, q6hr, PRNAllergies Dilaudid (Rash) Hydromet (Rash) Lodine (Rash) Percocet 5/325 (Rash) Phenergan (Abdominal spasms) Stadol (Rash) Tape (Rash) aspirin (Anaphylactic reaction) ciprofloxacin (Rash, Rash) morphine (Stomach pain)Social History Alcohol - Low Risk, 01/30/2016 Substance Abuse - Denies Substance Abuse, 01/30/2016 Tobacco - Denies Tobacco Use, 01/30/2016Lab Results WBC: 7.4 E9/L (10/05/17 08:50:00) RBC: 4.5 E12/L (10/05/17 08:50:00) Hgb: 13.7 gm/dL (10/05/17 08:50:00) Hct: 40.8 % (10/05/17 08:50:00) MCV: 90.1 fL (10/05/17 08:50:00) MCH: 30.3 pg (10/05/17 08:50:00) MCHC: 33.6 gm/dL (10/05/17 08:50:00) RDW: 13.8 % (10/05/17 08:50:00) Platelet: 280 E9/L (10/05/17 08:50:00) MPV: 7.5 fL (10/05/17 08:50:00) Neutro Auto: 67 % (10/05/17 08:50:00) Lymph Auto: 19.8 % (10/05/17 08:50:00) [place] Auto: 11.5 % (10/05/17 08:50:00) Eos Auto: 1.3 % (10/05/17 08:50:00) Basophil Auto: 0.4 % (10/05/17 08:50:00) Neutro Absolute: 4.9 E9/L (10/05/17 08:50:00) Lymph Absolute: 1.5 E9/L (10/05/17 08:50:00) [place] Absolute: 0.9 E9/L (10/05/17 08:50:00) Eos Absolute: 0.1 E9/L (10/05/17 08:50:00) Basophil Absolute: 0 E9/L (10/05/17 08:50:00) Glucose Lvl: 92 mg/dL (10/05/17 08:50:00) BUN: 8 mg/dL (10/05/17 08:50:00) Creatinine: 0.7 mg/dL (10/05/17 08:50:00) eGFR: >60 (10/05/17 08:50:00) eGFR AA: >60 (10/05/17 08:50:00) BUN/Creat Ratio: 11 (10/05/17 08:50:00) Sodium Lvl: 140 mmol/L (10/05/17 08:50:00) Potassium Lvl: 3.6 mmol/L (10/05/17 08:50:00) Chloride: 107 mmol/L (10/05/17 08:50:00) CO2: 27 mmol/L (10/05/17 08:50:00) AGAP: 10 mEq/L (10/05/17 08:50:00) Calcium Lvl: 9.3 mg/dL (10/05/17 08:50:00) Alk Phos: 72 Int._Unit/L (10/05/17 08:50:00) ALT: 25 Int._Unit/L (10/05/17 08:50:00) AST: 28 Int._Unit/L (10/05/17 08:50:00) Total Protein: 6.6 gm/dL (10/05/17 08:50:00) Albumin Lvl: 3.9 gm/dL (10/05/17 08:50:00) Globulin: 2.7 gm/dL (10/05/17 08:50:00) A/G Ratio: 1.4 (10/05/17 08:50:00) Bili Total: 0.3 mg/dL (10/05/17 08:50:00) Bili Direct: <0.1 (10/05/17 08:50:00) Bili Indirect: Unable to Calculate Abnormal (10/05/17 08:50:00) Lipase Lvl: 18 unit/L (10/05/17 08:50:00) Lactic Acid Lvl: 13.2 mg/dL (10/05/17 08:50:00) UA Spec Desc: Clean Catch (10/05/17 09:04:00) UA Color: Yellow2 (10/05/17 09:04:00) UA Clarity: Clear2 (10/05/17 09:04:00) UA Spec Grav: 1.010 (10/05/17 09:04:00) UA pH: 7.5 (10/05/17 09:04:00) UA Protein: NEGATIVE1 (10/05/17 09:04:00) UA Glucose: NEGATIVE1 (10/05/17 09:04:00) UA Ketones: NEGATIVE1 (10/05/17 09:04:00) UA Bili: NEGATIVE1 (10/05/17 09:04:00) UA Blood: NEGATIVE1 (10/05/17 09:04:00) UA Nitrite: NEGATIVE1 (10/05/17 09:04:00) UA Urobilinogen: 0.2 (10/05/17 09:04:00) UA Leuk Est: NEGATIVE1 (10/05/17 09:04:00) UA RBC: 0-3 (10/05/17 09:04:00) UA Squam Epithelial: 0-2 (10/05/17 09:04:00) UA WBC: 0-5 (10/05/17 09:04:00)Diagnostic Results CT Abdomen/Pelvis w/ Contrast 10/05/17 11:18:53 IMPRESSION: 1. ABUNDANT FECAL MATTER IN THE COLON SUGGESTS CONSTIPATION. 2. SMALL BOWEL UNREMARKABLE AND THERE IS NO BOWEL OBSTRUCTION. 3. PRIOR CHOLECYSTECTOMY, APPENDECTOMY AND HYSTERECTOMY. 4. NO ORGANOMEGALY, MASS,?FREE FLUID?, ABSCESS OR PNEUMOPERITONEUM. 5. NORMAL SIZE KIDNEYS WITHOUT NEPHROLITHIASIS OR HYDRONEPHROSIS. CLINICAL HISTORY: BILATERAL FLANK PAIN, HISTORY OF PANCREATITIS AND IRRITABLE BOWEL SYNDROME SURGICAL HISTORY OF CHOLECYSTECTOMY, APPENDECTOMY AND HYSTERECTOMY COMMENT: CT ABDOMEN AND PELVIS WITH IV CONTRAST TECHNIQUE: CT abdomen and pelvis was obtained following intravenous injection 100 cc of Isovue-300. Also, oral contrast media was given for this CT scan. FINDINGS: There is evidence of a previous cholecystectomy. Mild extrahepatic biliary dilatation can be a common finding following a cholecystectomy. There are no dilated intrahepatic biliary ducts. The liver, spleen, pancreas, kidneys and adrenal glands appear normal. No retroperitoneal adenopathy. No?free fluid?or pneumoperitoneum. Stomach and upper GI tract appear unremarkable. There has been an appendectomy. There is abundant fecal matter in the colon suggesting constipation. Small bowel appears unremarkable and there is no bowel obstruction. CT scan of the pelvis confirms a previous hysterectomy. Urinary bladder appears normal. There is no pelvic mass, adenopathy or?free fluid?in the pelvis. There is no inguinal hernia or adenopathy. Bone spurring in LS-spine. All CT scans at this facility use dose modulation, iterative reconstruction, and/or weight based dosing when appropriate to reduce radiation dose to as low as reasonably achievable. Signed By: Andrea Barajas MD 10/05/17 11:18:53 GFR (mL/min/1/73m2) >60 Contrast: Isovue 300 Contrast amount in ml?s: 100 Signed By: Andrea Barajas MD [facility] Comment on above: Result Comment: Elec tronically Signed By: Cas Lam PA-C\.br\Date and Time Signed: 10/05/17 12:14 EDT\.br\Electronically Co-Signed By: Iain Salcido DO\.br\Date and Time Co-Signed: 10/05/17 12:20 EDT ED Patient Summaryon 018 ED Patient Summary [address] [address] Patient Discharge Instructions Person Information Name: SKIP HONG Age: 62 Years Date: 10/05/2017 8:17 AMDischarge Diagnosis: Abdominal pain; Constipation Primary Care Physician: Anitha Ramey MD Provider InformationPrimary Provider: Sandy Salcido DO Pitch Worker:Cas Lam PA-C The exam and treatment you received in the Emergency Department were for an urgent problem and are not intended as complete care. It is important that you follow up with a doctor, nurse practitioner, or physician?s promotional advertising assistant for ongoing care. If your symptoms become worse or you do not improve as expected and you are unable to reach your usual health care provider, you should return to the Emergency Department. We are available 24 hours a day. SKIP HONG has been given the following list of patient education materials, prescriptions and follow-up instructions: Follow-up Instructions:With: Address: When: [facility], [address] [place] [address] Business (1) In 3 days 10/08/2017 In the event that this physician does not participate in your insurance network, please consult with your insurance company to find a nearby participating provider. Patient Education Materials:Constipation, Adult; Abdominal Pain, Adult A MESSAGE TO ALL PATIENTS REGARDING OPIOIDS PRESCRIPTION OPIOIDS: WHAT YOU NEED TO KNOW Prescription opioids can be used to help relieve ompjgtkr-vu-ouqkqw pain and are often prescribed following a surgery or injury, or for certain health conditions. These medications can be an important part of the treatment but also come with serious risks. It is important to work with your healthcare provider to make sure you are getting the safest, most effective care. WHAT ARE THE RISKS AND SIDE EFFECTS OF OPIOID USE?Prescription opioids carry serious risks of addiction and overdose, especially with prolonged use. An opioid overdose, often marked by slowed breathing, can cause sudden . The use of prescription opioids can have a number of side effects as well, even when taken as directed:? Tolerance?meaning you might need to take more of the medication for the same pain relief? Physical dependence?meaning you have symptoms of withdrawal when a medication is stopped? Increased sensitivity to pain ? Constipation? Nausea, vomiting, and dry mouth? Sleepiness and dizziness? Confusion? Depression? Low levels of testosterone that can result in lower sex drive, energy, and strength? Itching and sweating RISKS ARE GREATER WITH:? History of drug misuse, substance use disorder, or overdose? Mental health conditions (such as depression or anxiety)? Sleep apnea? Older age (65 years and older)? Avoid alcohol while taking prescription opioids. Also, unless specifically advised by your health care provider, medications to avoid include:? Benzodiazepines (such as Xanax or Valium)? Muscle relaxants (such as Soma or Flexeril)? Hypnotics (such as Ambien or Lunesta)? Other prescription opioids KNOW YOUR OPTIONSTalk to your health care provider about ways to manage your pain that don?t involve prescription opioids. Some of these options may actually work better and have fewer risks and side effects. Options may include:? Pain relievers such as acetaminophen, ibuprofen, and naproxen? Some medication that are also used for depression or seizures? Physical therapy and exercise? Cognitive behavioral therapy, a psychological, goal-directed approach, in which patients learn how to modify physical, behavioral, and emotional triggers of pain and stress. IF YOU ARE PRESCRIBED OPIOIDS FOR PAIN:? Never take opioids in greater amounts or more often than prescribed.? Follow up with your primary health care provider.o Work together to create a plan on how to manage your pain.o Talk about ways to help manage your pain that don?t involve prescription opioids.o Talk about any and all concerns and side effects.? Help prevent misuse and abuseo Never sell or share prescription opioids.o Never use another person?s prescription opioids.? Store prescription opioids in a secure place and out of reach of others (this may include visitors, children, friends, and family).? Safely dispose of unused prescription opioids: Find your community drug take-back program or your pharmacy mail-back program, or flush them down the toilet, following guidance from the Food and Drug Administration (www.fda.gov/Drugs/ResourcesForYou ).? Visit www.cdc.gov/drugoverdose to learn about the risks of opioids abuse and overdose.? If you believe you may be struggling with addiction, tell your health acute care physical therapist and ask for guidance or call SAMA?S National Helpline at 4-138-372-VHOQ. i Source: [place] Department of Health and Human Services/Center for Disease Control & Prevention [facility] Medications Given:Medication Dose Route Sodium Chloride 0.9% intravenous solution 1000.00 mL Initial Volume 1000.00 mL/hr IV Right Wrist ondansetron 4.00 mg IV Push Right Wrist ketorolac 30.00 mg IV Right Wrist fentanyl 50.00 microgram IV Push Left Hand Sodium Chloride 0.9% intravenous solution 1000.00 mL Initial Volume 125.00 mL/hr IV Right Hand fentanyl 50.00 microgram IV Push Right Wrist Medication Information:New MedicationsPrinted Prescriptionspolyethylene glycol 3350 (Miralax 3350 17 gram packet) 17 Gram By Mouth every day. Refills: 0.Medications to Continue with No ChangesOther Medicationsacetaminophen-hydrocodo ne (acetaminophen-hydrocodone 325 mg-5 mg oral tablet) By Mouth 3 times a day as needed as needed for pain.hyoscyamine 0.125 Milligram By Mouth.nitroglycerin (Nitro 0.4 mg Tab) 1 Tabs Sublingual every 5 minutes as needed Chest pain.ondansetron (Zofran 4 mg Tab) 1 Tabs By Mouth every 6 hours as needed Nausea. Refills: 0.promethazine (Phenergan) 25 Milligram By Mouth every 4 hours as needed as needed for nausea/vomiting.simvastatin 20 Milligram By Mouth once a day (at bedtime).tramadol 50 Milligram By Mouth as needed as needed for pain.Comment: Pharmacy Information: Other: drug allyn gilbert T ninfa you for choosing [facility] Patient Education Materials: ConstipationConstipation is when a person has fewer than three bowel movements a week, has difficulty having a bowel movement, or has stools that are dry, hard, or larger than normal. As people grow older, constipation is more common. If you try to fix constipation with medicines that make you have a bowel movement (laxatives), the problem may get worse. Long-term laxative use may cause the muscles of the colon to become weak. A low-fiber diet, not taking in enough fluids, and taking certain medicines may make constipation worse. CAUSES? Certain medicines, such as antidepressants, pain medicine, iron supplements, antacids, and water pills. ?? Certain diseases, such as diabetes, irritable bowel syndrome (IBS), thyroid disease, or depression. ?? Not drinking enough water. ?? Not eating enough fiber-rich foods. ?? Stress or travel. ?? Lack of physical activity or exercise. ?? Ignoring the urge to have a bowel movement. ?? Using laxatives too much. ?SIGNS AND SYMPTOMS? Having fewer than three bowel movements a week. ?? Straining to have a bowel movement. ?? Having stools that are hard, dry, or larger than normal. ?? Feeling full or bloated. ?? Pain in the lower abdomen. ?? Not feeling relief after having a bowel movement. ?DIAGNOSISYour health care provider will take a medical history and perform a physical exam. Further testing may be done for severe constipation. Some tests may include:? A barium enema X-ray to examine your rectum, colon, and, sometimes, your small intestine. ?? A sigmoidoscopy to examine your lower colon. ?? A colonoscopy to examine your entire colon. TREATMENTTreatment will depend on the severity of your constipation and what is causing it. Some dietary treatments include drinking more fluids and eating more fiber-rich foods. Lifestyle treatments may include regular exercise. If these diet and lifestyle recommendations do not help, your health care provider may recommend taking vkxx-nhn-brflqrf laxative medicines to help you have bowel movements. Prescription medicines may be prescribed if tcyw-uzy-ukrjkcz medicines do not work. HOME CARE INSTRUCTIONS? Eat foods that have a lot of fiber, such as fruits, vegetables, whole grains, and beans.? Limit foods high in fat and processed sugars, such as pitcairn islander fries, hamburgers, cookies, candies, and soda. ?? A fiber supplement may be added to your diet if you cannot get enough fiber from foods. ?? Drink enough fluids to keep your urine clear or pale yellow. ?? Exercise regularly or as directed by your health care provider. ?? Go to the restroom when you have the urge to go. Do not hold it. ?? Only take odxi-fxy-txxaran or prescription medicines as directed by your health care provider. Do not take other medicines for constipation without talking to your health care provider first. ? SEEK IMMEDIATE MEDICAL CARE IF:? You have bright red blood in your stool. ?? Your constipation lasts for more than 4 days or gets worse. ?? You have abdominal or rectal pain. ?? You have thin, pencil-like stools. ?? You have unexplained weight loss. MAKE SURE YOU:? Understand these instructions.? Will watch your condition.? Will get help right away if you are not doing well or get worse.Document Released: 02/27/2005 Document Revised: 06/06/2014 Document Reviewed: 03/13/2014ExitCare? Patient Information ?2015 [employer]. This information is not intended to replace advice given to you by your health care provider. Make sure you discuss any questions you have with your health care provider.Abdominal PainMany things can cause abdominal pain. Usually, abdominal pain is not caused by a disease and will improve without treatment. It can often be observed and treated at home. Your health care provider will do a physical exam and possibly order blood tests and X-rays to help determine the seriousness of your pain. However, in many cases, more time must pass before a clear cause of the pain can be found. Before that point, your health care provider may not know if you need more testing or further treatment. HOME CARE INSTRUCTIONSMonitor your abdominal pain for any changes. The following actions may help to alleviate any discomfort you are experiencing:? Only take grat-hee-ggnaxos or prescription medicines as directed by your health care provider. ? Do not take laxatives unless directed to do so by your health care provider.? Try a clear liquid diet (broth, tea, or water) as directed by your health care provider. Slowly move to a bland diet as tolerated.SEEK MEDICAL CARE IF:? You have unexplained abdominal pain.? You have abdominal pain associated with nausea or diarrhea. ? You have pain when you urinate or have a bowel movement.? You experience abdominal pain that wakes you in the night.? You have abdominal pain that is worsened or improved by eating food.? You have abdominal pain that is worsened with eating fatty foods.? You have a fever. SEEK IMMEDIATE MEDICAL CARE IF:? Your pain does not go away within 2 hours.? You keep throwing up (vomiting).? Your pain is felt only in portions of the abdomen, such as the right side or the left lower portion of the abdomen.? You pass bloody or black tarry stools.MAKE SURE YOU:? Understand these instructions. ?? Will watch your condition. ?? Will get help right away if you are not doing well or get worse. ?Document Released: 03/11/2006 Document Revised: 06/06/2014 Document Reviewed: 02/08/2014ExitCare? Patient Information ?2014 [employer]. This information is not intended to replace advice given to you by your health care provider. Make sure you discuss any questions you have with your health care provider.ABDIAS Carpio JEAN M , have received the following patient education materials/instructions and have verbalized understanding: Patient Education Materials: Constipation, Adult; Abdominal Pain, Adult Follow-up Instructions: With: Address: When: [facility], [address] [place] [address] Business (8) In 3 days 10/08/2017 Prescriptions: [polyethylene glycol 3350 (Miralax 3350 17 gram packet)] Patient Signature Date Clinician/Nurse Signature Date 10/05/17 13:10:13 Normal [facility] Hep Func Panelon 10-05-2017 Bilirubin.indirec t [Mass or Moles/volume] in Serum or Plasma UTC Abnormal 0.1-0.9 [facility] Comment on above: Result Comment: Resu lt verified by Discern Rule. Performed result UTC (Unable to Calculate) was sent as an Alpha code due the inability to calculate a valid numeric value. Performed By: #### 2 483523, 4094230, 0166615, 4376962, 8127082, 5153673, [id number] ####[facility] [address] [place] [address] Albumin mass conc 3.9 g/dL Normal 3.3-5.0 [facility] Comment on above: Performed By: #### 2 175388, 6961989, 5020092, 2903573, 7743429, 8991935, 50654796 ####[facility] [address] [place] [address] Albumin mass conc 1.4 g/dL Normal 1.1-2.2 [facility] Comment on above: Performed By: #### 2 097472, 1481574, 8190457, 8266805, 1787233, 6076456, 67282245 ####[facility] [address] [place] [address] ALP enzyme act/vol 72 Int._Unit/L Normal 21-98 [facility] Comment on above: Performed By: #### 2 085741, 2275700, 6247962, 7204820, 3076980, 6005879, 76380992 ####[address] [address] ALT No additional P-5'-P enzyme act/vol 25 Int._Unit/L Normal 6-46 [facility] Comment on above: Performed By: #### 2 355073, 2644307, 2332385, 4215318, 3806118, 9053656, 67561763 ####[facility] [address] [place] [address] AST enzyme act/vol 28 Int._Unit/L Normal 5-43 [facility] Comment on above: Performed By: #### 2 751825, 4434971, 7899011, 5294612, 7297539, 1800975, 57558190 ####[facility] [address] [place] [address] Bilirubin mass conc 0.3 mg/dL Normal 0.0-1.1 [facility] Comment on above: Performed By: #### 2 890091, 1966319, 8407027, 7954185, 2232529, 6346364, 24926612 ####[facility] [address] [place] [address] Bilirubin.direct mass conc mg/dL Normal 0.1-0.4 [facility] Comment on above: Performed By: #### 2 161592, 9913885, 9003894, 6915299, 4185172, 2078633, 66782532 ####[facility] [address] [place] [address] Globulin Calculated mass conc (S) 2.7 g/dL Normal 1.4-4.0 [facility] Comment on above: Performed By: #### 2 929802, 0966121, 4072827, 5076049, 5062508, 0400931, 67073037 ####[facility] [address] [place] [address] Protein mass conc 6.6 g/dL Normal 6.0-7.8 [facility] Comment on above: Performed By: #### 2 541331, 5052186, 0930053, 5843354, 9813780, 6779747, 67703432 ####[facility] [address] [place] [address] Lactic Acidon 10-05-2017 Lactate mass conc 13.2 mg/dL Normal 4.5-19.8 [facility] Comment on above: Performed By: #### 2 288726, 4436104, 8503785, 2062083, 2069354, 4779258, 47361294 ####[facility] [address] [place] [address] Lipase Levelon 10-05-2017 Lipase enzyme act/vol 18 unit/L Normal 13-58 [facility] Comment on above: Performed By: #### 2 295103, 2930394, 7269029, 6805022, 6960444, 3319253, 79724033 ####[address] [place] [address] UA With Cult Reflexon 2017 Bilirubin Ql (U) Negative Normal Negative [facility] Comment on above: Performed By: #### 1 [id number] ####[facility] [address] [place] [address] Clarity Nom (U) CLEAR Normal Clear [facility] Comment on above: Performed By: #### 1 4906982 ####[facility] [address] [place] [address] Color Auto Nom (U) YELLOW Normal Yellow [facility] Comment on above: Performed By: #### 1 2417369 ####[facility] [address] [place] [address] Epithelial cells.squamous LM.HPF #/area (Urine sed) 0-2 Normal 0-2 [facility] Comment on above: Performed By: #### 1 3629630 ####[facility] [address] [place] [address] Glucose Test strip mass conc (U) Negative Normal Negative [facility] Comment on above: Performed By: #### 1 7882059 ####[facility] [address] [place] [address] Hemoglobin Test strip Ql (U) Negative Normal Negative [facility] Comment on above: Performed By: #### 1 6052367 ####[facility] [address] [place] [address] Ketones mass conc (U) Negative Normal Negative [facility] Comment on above: Performed By: #### 1 7390498 ####[facility] [address] [place] [address] Kipton.plasma/Li thium.RBC mass ratio (Bld) 0-3 Normal 0-3 [facility] Comment on above: Performed By: #### 1 7951218 ####[facility] [address] [place] [address] Nitrite Test strip Ql (U) Negative Normal Negative [facility] Comment on above: Performed By: #### 1 8920485 ####[facility] [address] [place] [address] pH Test strip (U) 7.5 [pH] Invalid Interpretation Code 5.0-9.0 [facility] Comment on above: Performed By: #### 1 2247241 ####[facility] [address] [place] [address] Protein mass conc (U) Negative Normal Negative [facility] Comment on above: Performed By: #### 1 0714863 ####[facility] [address] [place] [address] Specific gravity Relative Density (U) 1.010 Invalid Interpretation Code 1.005-1.03 0 [facility] Comment on above: Performed By: #### 1 3978450 ####[facility] [address] [place] [address] UA Spec Desc Clean Catch Normal [facility] Comment on above: Performed By: #### 1 9425534 ####[facility] [address] [place] [address] Urobilinogen Test strip Qn (U) 0.2 {Antonina'U}/dL Normal 0.0-1.0 [facility] Comment on above: Performed By: #### 1 2619922 ####[facility] [address] [place] [address] WBC Auto Ql (U) Negative Normal Negative [facility] Comment on above: Performed By: #### 1 8299101 ####[facility] [address] [place] [address] WBC LM.HPF #/area (Urine sed) 0-5 Normal 0-5 [facility] Comment on above: Performed By: #### 1 2900408 ####[facility] [address] [place] [address] eGFRon 10-05-2017 GFR/1.73 sq M predicted among blacks MDRD vol rate/area (S/P/Bld) mL/min/{1.73_m2} Normal >=59 [facility] Comment on above: Order Comment: Order added by Discern Expert. Result Comment: eGFR is race adjusted. AA=. Performed By: #### 2 266558, 9515420, 9209099, 6025067, 5470597, 9567607, 04915852 ####[facility] [address] [place] [address] GFR/1.73 sq M predicted among non-blacks MDRD vol rate/area (S/P/Bld) mL/min/{1.73_m2} Normal >=59 [facility] Comment on above: Order Comment: Order added by Discern Expert. Result Comment: Product Development Chemist seng kidney disease could be indicated at eGFR's of less than 60 mL/min/1.73m2. Kidney failure is indicated at less than 15 mL/min/1.73m2. Performed By: #### 2 107550, 6572369, 3716861, 9182027, 4054942, 2553629, 65110519 ####[facility] [address] [place] [address] Vital Signs Date Time Vital Sign Value Performing Clinician Siobhan escalante 05-27-2022 15:00-0500 Body height 160.02 cm Prasad Isabel Other [facility] Other 05-27-2022 15:00-0500 Body mass index (BMI) [Ratio] 23.56 kg/m2 Prasad Isabel Other [facility] Other 05-27-2022 15:00-0500 Body weight 60.33 kg Prasad Isabel Other [facility] Other Encounters Encounter Date Encounter Type Care Provider Facility Start: 07-01-2022 End: 07-02-[address] ANITHA RAMEY Facility:[facility] Start: 06-23-2022 End: 06-23-2022 ambulatory ANITHA RAMEY Facility:[facility] Start: 06-23-2022 End: 06-23-2022 ambulatory Benjamin Moore PA-C Work Phone: [facility] Comment on above: Fibromyalgia (Primar y Dx); Cervicalgia Start: 06-23-2022 End: 06-23-2022 Telemedicine consultation with patient Benjamin Moore PA-C Work Phone: [facility] Start: 06-17-2022 End: 06-17-[address] JULIANN ROGER Facility:[facility] Start: 06-03-2022 End: 06-03-2022 ambulatory Bentley Bragg Other [facility] Other Start: 06-03-2022 Chart abstracting Unk (Historical) N eurology Start: 06-03-2022 Telephone encounter Bentley Bragg [facility] [employer] Start: 05-27-2022 End: 05-27-2022 ambulatory Prasad Isabel Other [facility] Other Start: 05-27-2022 Office outpatient ne w 30 minutes Prasad Isabel [facility] Start: 05-20-2022 End: 05-21-[address] ANITHA RAMEY Facility:[facility] Start: 05-07-2022 End: 05-08-[address] ANITHA RAMEY Facility:[facility] Start: 03-26-2022 End: 03-27-[address] MARK RASHEED Facility:[facility] Start: 03-24-2022 End: 03-25-[address] ANITHA RAMEY Facility:[facility] Start: 02-18-2022 End: 02-19-[address] ANITHA RAMEY Facility:[facility] Start: 02-06-2022 End: 02-07-[address] ANITHA RAMEY Facility:[facility] Start: 08-29-2021 End: 08-30-[address] ANITHA RAMEY Facility:[facility] Start: 08-27-2021 End: 08-28-[address] ANITHA RAMEY Facility:[facility] Start: 08-21-2021 End: 08-22-[address] ANITHA RAMEY Facility:[facility] Start: 08-09-2021 End: 08-10-[address] ANITHA RAMEY Facility:[facility] Start: 07-11-2021 End: 07-12-[address] ANITHA RAMEY Facility:[facility] Start: 07-06-2018 End: 07-06-2018 Patient encounter procedure Kings Thomson Facility:[facility] Start: 04-15-2018 End: 04-16-2018 Patient encounter procedure Luli Roy Facility:[facility] Start: 04-12-2018 End: 04-13-2018 Patient encounter procedure Rockwell Reneam Facility:[facility] Start: 04-07-2018 End: 04-08-2018 Patient encounter procedure Luli Roy Facility:[facility] Start: 11-05-2017 End: 11-06-2017 Patient encounter procedure Luli Roy Facility:[facility] Start: 10-07-2017 End: 10-08-2017 Patient encounter procedure Luli Roy Facility:[facility] Start: 10-06-2017 End: 10-07-2017 Emergency department patient visit Anitha~[id number] UNKNOWN sabrina Facility:[facility] Start: 10-05-2017 End: 10-05-2017 Emergency department patient visit Anitha~[id number] UNKNOWN y Facility:[facility] Plan of Treatment Date Care Activity Detail Author Start: 06-15-2022 ADVANCE DIRECTIVE DISCUSSION ADVANCE DIRECTIVE DISCUSSION [facility] Start: 06-15-2022 DEPRESSION ASSESSMENT DEPRESSION ASS ESSMENT [facility] Start: 02-13-2022 Influenza vaccination INFLUENZA (#1) [facility] Start: 12-08-2021 COVID-19 VACCINE (5 - Booster for Moderna series) COVID-19 VACCINE (5 - Booster for Moderna series) [facility] Start: 06-15-2021 ADVANCE DIRECTIVE DISCUSSION ADVANCE DIRECTIVE DISCUSSION [facility] Start: 06-15-2021 DEPRESSION ASSESSMENT DEPRESSION ASS ESSMENT [facility] Start: 01-11-2021 BONE DENSITY BONE DENSITY [facility] Start: 01-11-2021 PNEUMOCOCCAL: 65+ (1 - PCV) PNEUMOCOCCAL: 65+ (1 - PCV) [facility] Start: 09-20-2012 DIABETES SCREEN DIABETES SCREEN [facility] Start: 01-11-2006 SHINGRIX VACCINE (1 of 2) SHINGRIX V ACCINE (1 of 2) [facility] Start: 01-11-2001 COLOGUARD (FIT-DNA) COLOGUARD (FIT-D NA) [facility] Start: 01-11-2001 Colonoscopy COLONOSCOPY [facility] Start: 01-11-2001 COLORECTAL CANCER SCREENING COLORECTAL CANCER SCREENING [facility] Start: 01-11-[address] COLONOGRAPHY [facility] Start: 01-11-2001 FECAL OCCULT BLOOD FECAL OCCULT BLOO D [facility] Start: 01-11-2001 LIPID SCREEN LIPID SCREEN [facility] Start: 01-11-2001 SIGMOIDOSCOPY SIGMOIDOSCOPY [facility] Start: 1996 Mammography MAMMOGRAM [facility] Start: 01-11-1975 Urine microalbumin profile DTAP,TDAP ,TD (1 - Tdap) [facility] Start: 01-11-1974 HEPATITIS C SCREENING HEPATITIS C WY IESHA [facility] Start: 1956 COVID-19 VACCINE (#1) COVID-19 VACCI NE (#1) [facility] Payers Date Payer Category Payer Unknown ANTHEM BLUE [facility] S AND BLUE SHIELD [employer]M MED[employer] HMO [id number] 2021-Present [phone] [address] [place] [address] HMO [id number] 2018 Self-pay 2017 Unknown [id number] 1959 Unknown [id number] 1956 Unknown [id number] 2.16.840.1.498472.3.579.2.727 1956 Unknown [id number] 2.16.840.1.616271.3.579.2.727 1956 Unknown [id number] 2.16.840.1.991514.3.579.2.727 1956 Unknown [id number] .16.840.1.667651.3.579.2.727 1956 Unknown [id number] 2.16.840.1.319275.3.579.2.593 1956 Unknown [id number] 2.16.840.1.164799.3.579.2.593 1956 Unknown [id number] 2.16.840.1.271932.3.579.2.593 1956 Unknown [id number] 2.16.840.1.473423.3.579.2.593 1956 Unknown [id number] 2.16.840.1.794313.3.579.2.593 1956 Unknown [id number] 2.16.840.1.450628.3.579.2.593 1956 Unknown [id number] 2.16.840.1.236177.3.579.2.593 1956 Unknown [id number] 2.16.840.1.118376.3.579.2.593 1956 Unknown [id number] 2.16.840.1.671550.3.579.2.593 1956 Unknown [id number] 2.16.840.1.206693.3.579.2.593 1956 Unknown [id number] 2.16.840.1.547894.3.579.2.593 1956 Unknown [id number] 2.16.840.1.250759.3.579.2.593 1956 Unknown [id number] 2.16.840.1.283407.3.579.2.593 Unknown [id number] 2.16.840.1.935959.3.579.2.531 Social History Date Type Detail Facility Start: 04-10-2011 Tobacco smoking status AZIS Never smoked tobacco [facility] Start: 04-10-2011 Tobacco use and exposure Smokeless tobacco non-user [facility] Start: 05-13-2018 Alcohol intake Current non-dr tool and die maker of alcohol (finding) [facility] Start: 1955 Sex Assigned At Not on file C [facility] Sex Assigned At Sex Assigned At [facility] [employer] Other Progress note 06-23-2022 Note Date & Type Note Facility 06-23-2022 Note HNO ID: [id number] Author: Benjamin Moore PA-C Service: ? Author Type: Physician Java Oracle Developer Type: Progress Notes Filed: 06/23/2022 7:54 AM Note Text: AMBULATORY TELEPHONE VISIT Skip Hong has consented to this telephone encounter. Patient was unable to connect to [facility] Virtual Visit - call to patient to check in to see if she was having difficulties with connect, which prompted switch to telephone visit. Persons Present: patient Chief Complaint/Reason: Neck pain, Headaches HPI: C/o increased chronic neck pain and headaches. Pain radiates downwards into thoracic region. She has experienced right arm numbness - primarily at bedtime with certain positions. This is intermittent - she does not experience this daily. Denies radiating arm pain, arm weakness, dexterity issues, balance instability or bowel / bladder dysfunction. She is pending Pain Management follow-up, however, has been sick and unable to make it to an appointment. Hx of Fibromyalgia and Primary Reflex Dystrophy. CMT: -Cervical Radiofrequency Ablation (None Recently) -Heat / Ice Application -Tylenol -NSAIDs (Ibuprofen) -Muscle Relaxants PRN (Zanaflex) -Percocet 5-325 mg PRN (Prescribed 10 tablets in April 2022 per PDMP) Data Reviewed: Most recent imaging Cervical MRI reveals mild DDD, worst at C5-C6 without significant canal or foraminal stenosis. Assessment: (M79.7) Fibromyalgia (primary encounter diagnosis) (M54.2) Cervicalgia Skip Hong is a 67 year old female with a history of fibromyalgia and primary reflex dystrophy presenting today with chronic neck pain and headaches. No significant stenosis noted on MRI. Plan: Had lengthy discussion with patient regarding current symptoms and imaging findings. Advised that she is not a surgical candidate at this time due to no significant neural compression on MRI and primary complaint of neck pain / headaches. Recommend follow-up with Pain Management. No follow-up necessary. Total Time Spent: 45 minutes Benjamin Moore PA-C [facility] History of Present illness Narrative 06-23-2022 Benjamin Moore PA-C - 06/23/2022 7:27 AM EST Note Date & Type Note Facility 06-23-2022 History of Presen t illness Narrative AMBULATORY TELEPHONE VISIT Skip Hong has consented to this telephone encounter. Patient was unable to connect to [employer] Virtual Visit - call to patient to check in to see if she was having difficulties with connect, which prompted switch to telephone visit. Persons Present: patient Chief Complaint/Reason: Neck pain, Headaches HPI: C/o increased chronic neck pain and headaches. Pain radiates downwards into thoracic region. She has experienced right arm numbness - primarily at bedtime with certain positions. This is intermittent - she does not experience this daily. Denies radiating arm pain, arm weakness, dexterity issues, balance instability or bowel / bladder dysfunction. She is pending Pain Management follow-up, however, has been sick and unable to make it to an appointment. Hx of Fibromyalgia and Primary Reflex Dystrophy. CMT: -Cervical Radiofrequency Ablation (None Recently) -Heat / Ice Application -Tylenol -NSAIDs (Ibuprofen) -Muscle Relaxants PRN (Zanaflex) -Percocet 5-325 mg PRN (Prescribed 10 tablets in April 2022 per PDMP) Data Reviewed: Most recent imaging Cervical MRI reveals mild DDD, worst at C5-C6 without significant canal or foraminal stenosis. Assessment: (M79.7) Fibromyalgia (primary encounter diagnosis) (M54.2) Cervicalgia Skip Hong is a 67 year old female with a history of fibromyalgia and primary reflex dystrophy presenting today with chronic neck pain and headaches. No significant stenosis noted on MRI. Plan: Had lengthy discussion with patient regarding current symptoms and imaging findings. Advised that she is not a surgical candidate at this time due to no significant neural compression on MRI and primary complaint of neck pain / headaches. Recommend follow-up with Pain Management. No follow-up necessary. Total Time Spent: 45 minutes Benjamin Moore PA-C documented in this encounter [facility] Progress note 06-04-2022 Note Date & Type Note Facility 06-04-2022 Note HNO ID: [id number] Author: Sangeetha Vasquez APRN.RACE RELATIONS ADVISER Service: ? Author Type: Nurse Practitioner Type: Progress Notes Filed: 06/04/2022 11:31 AM Note Text: Per Triage: Skip Hong is a 67 year old female that requests evaluation of cervical radiculopathy. Per review, they have symptoms of neck pain, right arm pain and numbness, trouble using hands. Referring Provider Dr. Anitha Ramey Is this a 2nd opinion? Yes CMT: Injections, oxycodone, muscle relaxants, Tylenol, and ibuprofen Studies (Reports unless indicated) MRI cervical spine report 05/2022 -C3-C4 moderate canal stenosis and mild bilateral foraminal narrowing. C4-C5 moderate central canal and mild foraminal narrowing bilaterally. C5-C6 moderate central canal and mild bilateral foraminal narrowing. C6-C7 mild central canal and mild-moderate bilateral foraminal narrowing. Disposition: Please schedule with first available surgical ANTONIO either in person or virtual visit whatever patient preference. [facility] History of Present illness Narrative 06-04-2022 Sangeetha Vasquez APRN.JAVAN - 06/04/2022 11:10 AM Giovanna Khalil, Research Coordinator - 06/03/2022 1:17 PM EST Note Date & Type Note Facility 06-04-2022 History of Presen t illness Narrative Per Triage: Skip Hong is a 67 year old female that requests evaluation of cervical radiculopathy. Per review, they have symptoms of neck pain, right arm pain and numbness, trouble using hands. Referring Provider Dr. Anitha Ramey Is this a 2nd opinion? Yes CMT: Injections, oxycodone, muscle relaxants, Tylenol, and ibuprofen Studies (Reports unless indicated) MRI cervical spine report 05/2022 -C3-C4 moderate canal stenosis and mild bilateral foraminal narrowing. C4-C5 moderate central canal and mild foraminal narrowing bilaterally. C5-C6 moderate central canal and mild bilateral foraminal narrowing. C6-C7 mild central canal and mild-moderate bilateral foraminal narrowing. Disposition: Please schedule with first available surgical ANTONIO either in person or virtual visit whatever patient preference. Patient name: Skip Hong Are you being referred by a Center for [facility] Provider or Pain Management Provider at [facility]? No If answer is YES please schedule directly with surgeon, triage does not need to be completed. Is this a self-referral No If not, who is the Referring Provider Dr. Anitha Ramey's office referring the patient to be seen in Neuro Surgery/2nd Opinion for Cervical Radiculopathy. Is this a 2nd opinion? Yes Were you offered surgery? No MRI/CT/myelogram within 12 months? Yes If NO , please refer to medical spine or PCP to complete above imaging, triage does not need to be completed If YES, please ask for the name/address of the facility where the MRI/CT/myelogram was completed: [facility] [address] [place] [address] MRI/CT/myelogram viewable in Epic: No If not, please provide [phone] to fax in imaging reports for review. Also, please inform patient to hand carry imaging disc to appointment. XR (spine) within 12 months: Yes If YES, please ask for the name/address of the facility where the XR was completed: [facility] [address] [id number] Suero's patients: Have you had previous EMG/Nerve Conduction Study, Ultrasound, or MRI for these same symptoms? If YES, please ask for the name/address of the facility where they were completed: Requested provider (First and Last name): any Are you interested in a virtual visit if offered? Yes 1. Where are you having symptoms related to this visit? Back pain No Leg pain No Arm pain No Neck pain Yes headaches, dizziness 2. Are you having any of the following symptoms: Difficulty walking No Numbness Yes R arm Weakness No Trouble using your hands? Yes sometimes 3. Have you had any injections or physical therapy in the last 12 months? Yes If YES then please ask for the name/address of the facility where the injections and/or physical therapy was completed Injections: [facility] [address] [place] [address] PT: unable to recall facility Have you tried any other kinds of non-surgical treatments in the last 12 months? (For example: NSAIDS, muscle relaxants, analgesics, oral steroids, Chiropractor, Acupuncture): muscle relaxants, Tylenol, Ibuprofen 4. Are you currently taking daily prescribed narcotic medications for your current symptoms (For example Oxycodone, Hydrocodone, Tramadol, Morphine, Other)? Yes, Oxycodone 5. Have you had previous spinal surgery for this same symptoms? No If YES please ask for the name of facility/address of where the surgery was completed: Additional Comments [phone] documented in this encounter [facility] Progress note 06-03-2022 Note Date & Type Note Facility 06-03-2022 Note HNO ID: [id number] Author: Celeste Khalil, Research Coordinator Service: ? Author Type: Research Type: Progress Notes Filed: 06/04/2022 11:31 AM Note Text: Patient name: Skip Hong Are you being referred by a Center for [facility] Provider or Pain Management Provider at [facility]? No If answer is YES please schedule directly with surgeon, triage does not need to be completed. Is this a self-referral No If not, who is the Referring Provider Dr. Anitha Ramey's office referring the patient to be seen in Neuro Surgery/2nd Opinion for Cervical Radiculopathy. Is this a 2nd opinion? Yes Were you offered surgery? No MRI/CT/myelogram within 12 months? Yes If NO , please refer to medical spine or PCP to complete above imaging, triage does not need to be completed If YES,? please ask for the name/address of the facility where the MRI/CT/myelogram was completed: [place] [address] MRI/CT/myelogram viewable in Epic: No If not, please provide [phone] to fax in imaging reports for review. Also, please inform patient to hand carry imaging disc to appointment. XR (spine) within 12 months: Yes If YES,? please ask for the name/address of the facility where the XR was completed: [place] [address] Dr. Suero's patients: Have you had previous EMG/Nerve Conduction Study, Ultrasound, or MRI for these same symptoms? If YES,? please ask for the name/address of the facility where they were completed: Requested provider (First and Last name): any Are you interested in a virtual visit if offered? Yes 1. Where are you having symptoms related to this visit? Back pain No Leg pain No Arm pain No Neck pain Yes headaches, dizziness 2. Are you having any of the following symptoms: Difficulty walking No Numbness Yes R arm Weakness No Trouble using your hands? Yes sometimes 3. Have you had any injections or physical therapy in the last 12 months? Yes If YES then please ask for the name/address of the facility where the injections and/or physical therapy was completed Injections: [facility] [address] [place] [address] PT: unable to recall facility Have you tried any other kinds of non-surgical treatments in the last 12 months? (For example: NSAIDS, muscle relaxants, analgesics, oral steroids, Chiropractor, Acupuncture): muscle relaxants, Tylenol, Ibuprofen 4. Are you currently taking daily prescribed narcotic medications for your current symptoms (For example Oxycodone, Hydrocodone, Tramadol, Morphine, Other)? Yes, Oxycodone 5. Have you had previous spinal surgery for this same symptoms? No If YES? please ask for the name of facility/address of where the surgery was completed: Additional Comments [phone] [facility] Evaluation note 05-27-2022 Note Date & Type Note Facility 05-27-2022 Evaluation note Encounter Date Diagnosis Assessment Notes May, Neck pain (ICD-10 - M54.2) I independently reviewed the MRI of the cervical spine and report and the x-ray. There is no significant canal compromise, there is some minor foraminal changes but no symptoms are consistent with the findings on the MRI that would indicate a surgical lesion. I think this patient is best treated with pain management; this was discussed with her. I think she understands and agrees. A referral will be sent [facility] Other Evaluation note Note Date & Type Note Facility Evaluation note Diagnosis Fibromyalgia- Primary Mylagia and myositis, unspecified Cervicalgia documented in this encounter [facility] Evaluation note Note Date & Type Note Facility Evaluation note No Information [facility] Other History general Narrative - Reported Note Date & Type Note Facility History general Narrative - Reported Type Medical History Migraines Medical History Fibromyalgia Medical History IBS (irritable bowel syndrome) Medical History Frozen shoulder Medical History Arthritis Medical History Pancreatic cyst Medical History RSD (reflex sympathetic dystroph y) Surgical History tonsillectomy Surgical History C section Surgical History oophorectomy Surgical History shoulder surgery Surgical History hysterectomy Surgical History endometriosis Surgical History laparoscopy Surgical History cholecystectomy Surgical History EGD Surgical History arthroscopy shoulder Hospitalization History see above [facility] Other Reason for visit Narrative Note Date & Type Note Facility Reason for visit Narrative Referral upda te - pain mangement [facility] Other Summary Purpose Family History No Family History Records FoundNo Family History Records FoundNo Family History Records FoundNo Family History Records Found Advance Directives No Advanced Directives Records FoundNo Advanced Directives Records FoundNo Advanced Directives Records FoundNo Advanced Directives Records Found Reason for Referral Reason DECLINED Evaluate and Treat Neck Pain Diagnosis 1 Neck pain (M54.2) Referral Organization [facility] Ne urosurgery Referring Provider First Name Prasad Referring Provider Last Name Isabel Referring Provider Specialty Neurologica l Surgery Referred Organization [facility] Pain Managemen t Referred Provider Bentley Bragg Referred Address [address] [address] ,[place], [place],[address] Referred Provider Specialty Pain Medicin e Referral Priority Routine General Notes Jenifer Ramírez 022 08:31:51 AM >Received today and sent P2P Esthela Navarro 06/03/2022 02:35:54 PM >fyi patient declined seeing Dr Bragg, she stated she has returned to her previous PM provider in [place] Jenifer Ramírez 06/03/2022 02:59:27 PM >OK, thank you for the update. Telephone encounter was sent Additional Source Comments INFORMATION SOURCE (unrecogn ized section and content) DATE CREATED AUTHOR 05/22/2018 [facility] DATE CREATED AUTHOR AUTHOR'S ORGANIZ ATION 07/22/2018 [facility] DATE CREATED AUTHOR AUTHOR'S ORGANIZ ATION 06/23/2022 [facility] DATE CREATED AUTHOR AUTHOR'S ORGANIZ ATION 07/02/2022 [facility] Source Comments (unrecognize d section and content) In the event this informatio n is protected by the Federal Confidentiality of Alcohol and Drug Abuse Patient Records regulations: The Federal rules restrict any use of the information to criminally investigate or prosecute any alcohol or drug abuse patient.[facility] event this information is protected by the Federal Confidentiality of Alcohol and Drug Abuse Patient Records regulations: The Federal rules restrict any use of the information to criminally investigate or prosecute any alcohol or drug abuse patient.[facility] Care Teams (unrecognized sec tion and content) Network Project Manager Relationship Specialty Start Date End Date Anitha Ramey MD [address] [place] [address] PCP - General 09/07/09 Luli Roy (Hist), MD [address] [place] [address] Referring Gastroenterology 05/04/18 Network Project Manager Relationship Specialty Start Date End Date Anitha Ramey MD [address] [place], [place] [id number] [phone] PCP - General 09/07/09 Luli Roy (Hist), [address] [place] [address] Referring Gastroenterology 05/04/18 Reason for Visit (unrecogniz ed section and content) Reason Comments Neck Pain FOR RECORDS PERTAINING TO PATIENTS WHO ARE OR HAVE BEEN ENROLLED IN A CHEMICAL DEPENDENCY/SUBSTANCEABUSE PROGRAM, SOME INFORMATION MAY BE OMITTED. This clinical summary was aggregated from multiple sources. Caution should be exercised in using it in the provision of clinical care. This summary normalizes information from multiple sources, and as a consequence, information in this document may materially change the coding, format and clinical context of patient data. In addition, data may be omitted in some cases. CLINICAL DECISIONS SHOULD BE BASED ON THE PRIMARY CLINICAL RECORDS. [facility]. provides no warranty or guarantee of the accuracy or completeness of information in this document.
[2023-06-04 16:39] LABS: Basophils Absolute Auto 0.1 10^3/uL (0.0-0.1); Basophils Percent Auto 0.6 % (0.2-2.0); Eosinophils Absolute Auto 0.1 10^3/uL (0.0-0.7); Eosinophils Percent Auto 0.6 % (0.9-7.0); Hematocrit 41.6 % (36.0-48.0); Hemoglobin 13.5 g/dL (12.0-16.0); Immature Granulocytes Abs Auto 0.03 10^3/uL (0.00-0.03); Immature Granulocytes Pct Auto 0.4 % (0.0-0.5); Lymphocytes Absolute Auto 1.8 10^3/uL (1.2-3.8); Lymphocytes Percent Auto 20.6 % (20.5-60.0); Mean Corpuscular HGB Conc 32.5 g/dL (29.9-35.2); Mean Corpuscular Hemoglobin 30.7 pg (26.7-34.0); Mean Corpuscular Volume 94.5 fL (81.0-99.0); Mean Platelet Volume 9.7 fL (9.5-13.5); Monocytes Absolute Auto 0.8 10^3/uL (0.3-0.8); Monocytes Percent Auto 9.7 % (1.7-12.0); Neutrophils Absolute Auto 5.8 10^3/uL (1.4-6.5); Neutrophils Percent Auto 68.1 % (43.0-75.0); Platelet Count 302 10^3/uL (150-450); Red Cell Distribution Width 12.9 % (11.0-15.0); White Blood Count 8.6 10^3/uL (4.0-11.0)
[2023-06-04 16:53] LABS: Alanine Aminotransferase 78 U/L (14-59); Albumin Globulin Ratio 0.9; Albumin Level 3.4 g/dL (3.4-5.0); Alkaline Phosphatase 105 U/L (46-116); Amylase 79 U/L (25-115); Anion Gap 9.8; Aspartate Amino Transferase 38 U/L (15-37); Bilirubin Direct 0.1 mg/dL (0.0-0.2); Bilirubin Total 0.2 mg/dL (0.2-1.0); Calcium 9.4 mg/dL (8.5-10.1); Carbon Dioxide 29.8 mmol/L (21.0-32.0); Chloride 102 mmol/L (98-107); Estimated GFR (African America >60 (>=60); Estimated GFR (Non-African Ame 55 (>=60); Globulin 3.7 g/dL; Glucose 85 mg/dL (74-106); Potassium 3.6 mmol/L (3.5-5.1); Sodium 138 mmol/L (136-145); Total Protein 7.1 g/dL (6.4-8.2)
[2023-06-04 17:10] LABS: C Reactive Protein <0.50 mg/dL (<=0.50)
== END 2023-06-04 16:10 | disposition home or self-care (01) ==
LOC: LAB 16:10
PROVIDERS: PCP Family Medicine; Visit Provider Family Medicine
DX: R10.9 Unspecified abdominal pain (principal)
CPT/HCPCS: 36415; 80048; 80076; 82150; 83690; 85025; 86140

== ENCOUNTER 2023-08-17 12:32 | Outpatient (OUT) | payer MEDICARE, SELFPAY ==
--- OUTSIDE RECORDS SUMMARY | 2023-08-17 12:43 | XMS_ITS | CCD ---
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 Science Professor Name Role Phone Anitha [phone] UNKNOWN Unavailable Unavailable Loly, Iain Unavailable Unavailable Loly, Iain Unavailable Unavailable Hoy Anitha~[phone] UNKNOWN Unavailable Unavailable Kade Howe Unavailable Unavailable Kade Howe Unavailable Unavailable Salam, Rockwell Unavailable Unavailable Salam, Rockwell Unavailable Unavailable Salam, Rockwell Unavailable Unavailable Hoy Anitha~[phone] UNKNOWN Unavailable Unavailable Salam, Rockwell Unavailable Unavailable Salam, Rockwell Unavailable Unavailable Salam, Rockwell Unavailable Unavailable Hoy, Anitha~[phone] UNKNOWN Unavailable Unavailable Salam, Rockwell Unavailable Unavailable Salam, Rockwell Unavailable Unavailable Hoy, Anitha~[phone] UNKNOWN Unavailable Unavailable Salam, Rockwell Unavailable Unavailable Salam, Rockwell Unavailable Unavailable Salam, Rockwell Unavailable Unavailable Hoy, Anitha~[phone] UNKNOWN Unavailable Unavailable Salam, Rockwell Unavailable Unavailable Salam, Rockwell Unavailable Unavailable Salam, Rockwell Unavailable Unavailable Hoy, Anitha~[phone] UNKNOWN Unavailable Unavailable Kings Thomson Attending Unavailable Anitha Ramey Primary Care Unavailable Anitha Ramey MD Primary Care Provider [phone] Luli Roy MD (Hist) Unavailable [phone] ANITHA RAMEY Primary Care Unavailable BENJAMIN MOORE Attending Unavailable DR ANITHA RAMEY Consulting Unavailable DR ANITHA RAMEY Primary Care Unavailable DR ANITHA RAMEY Attending Unavailable DR ANITHA RAMEY Admitting Unavailable DR TYRELL MOREJON Consulting Unavailable DR ANITHA RAMEY Consulting Unavailable DR ANITHA RAMEY Attending Unavailable DR ANITHA RAMEY Admitting Unavailable HOY, DR WELSH Primary Care [...] Unavailable Prasad Isabel Unavailable Bentley Bragg Unavailable Unavailable Primary Care Provider UnavailAnitha Montague MD Primary Care Provider [phone] CINDY AGUILAR Attending Unavailable ORAL FERNANDEZ Referring Unavailable Allergies Allergy Classification Reported Allergen(s) Allergy Type Date of Onset Reaction(s) Facility (1 source) Acetaminophen / oxyCODONE; Translations: [Percocet 5/325] Drug Allergy [facility] Repository (1 source) Adhesive Tape; Translations: [Tape] Propensity to adverse reactions (disorder) [facility] Repository (8 sources) Aspirin; Translations: [aspirin] Drug Allergy 09-14-19 10 Anaphylaxis [facility] Repository (4 sources) Butorphanol; Translations: [Stadol] Drug Allergy Unknown [facility] Repository (7 sources) Ciprofloxacin; Translations: [ciprofloxacin] Drug Allergy 06-03-20 Other: See Comments, Rash [facility] Repository (2 sources) Etodolac; Translations: [Lodine] Drug Allergy [facility] Repository (1 source) homatropine / HYDROcodone; Translations: [Hydromet] Drug Allergy [facility] Repository (2 sources) HYDROmorphone; Translations: [Dilaudid] Drug Allergy [facility] Repository (8 sources) Morphine; Translations: [morphine] Drug Allergy 09-14-19 10 AOF, Unknown [facility] Repository (2 sources) Promethazine; Translations: [Phenergan] Drug Allergy AOF [facility] Repository (4 sources) Acetaminophen / oxyCODONE; Translations: [OXYCODONE-ACETAMIN OPHEN] Drug Allergy 06-03-20 Other: See Comments, Alejandro [facility] (3 sources) Adhesive Tape; Translations: [ADHESIVE TAPE (ROSINS)] Allergy to substance Other: See Comments [facility] (3 sources) Butorphanol; Translations: [BUTORPHANOL TARTRATE] Drug Allergy 09-14-19 10 Other: See Comments [facility] (3 sources) Etodolac; Translations: [ETODOLAC] Drug Allergy 09-14-19 10 [facility] (3 sources) homatropine / HYDROcodone; Translations: [HYDROCODONE-HOMATR OPINE] Drug Allergy Other: See Comments [facility] (3 sources) HYDROmorphone; Translations: [HYDROMORPHONE (BULK)] Drug Allergy 04-10-20 11 Rash [facility] (3 sources) Promethazine; Translations: [PROMETHAZINE HCL] Drug Allergy 09-14-19 10 [facility] (1 source) Acetaminophen / oxyCODONE Drug Allergy [facility] Repository (1 source) Ciprofloxacin Drug Allergy [facility] Repository (1 source) Desonide Drug Allergy [facility] Repository (1 source) homatropine Drug Allergy [facility] Repository (1 source) Bleach (Sodium Hypochlorite) Drug allergy (disorder) 01-11-19 56 [facility] Repository (3 sources) HYDROmorphone Drug Allergy 04-10-20 11 Rash [facility] Other (2 sources) Promethazine Drug Allergy Unknown [facility] Other (2 sources) traMADol Drug Allergy Unknown [facility] Other (1 source) Butorphanol Drug Allergy 09-14-19 10 [facility] (1 source) Etodolac Propensity to adverse reactions 09-14-19 10 [facility] (1 source) Promethazine Drug Allergy 09-14-19 10 [facility] (1 source) Sulfamethoxazole / Trimethoprim Drug Allergy 06-03-20 [facility] (1 source) Theophylline Drug Allergy 06-03-20 [facility] Medications Current Medications Medication Drug Class(es) Dates Sig (Normalized) Sig (Original) acetaminophen 325 mg / oxyCODONE hydrochloride 5 mg oral tablet (2 sources) Opioid Agonist oxyCODONE-Acetam i nophen 5-325 MG Oral for 7 Days Active diazePAM 10 mg oral tablet (2 sources) Benzodiazepine diazePAM 10 MG TAKE 1 TABLET BY MOUTH 60 MINUTES prior to procedure Oral for 1 Days Active gabapentin 100 mg oral capsule (1 source) Anti-epileptic Agent Start: 03-27-2023 gabapentin (Neurontin) 100 MG capsule liothyronine sodium 0.005 mg oral tablet (1 source) l-Triiodothyronine Start: 04-24-2023 liothyronine (Cytomel) 5 MCG tablet Tylenol Extra Strength 500 MG (2 sources) take 1 tablet by mouth every six hours as needed Tylenol Extra [...] th every 8 hours as needed. amylase 658614 unt / lipase 15004 unt / protease 71089 unt delayed release oral capsule (2 sources) [...] affected ar ea twice daily. estrogens, conjugated (fdc) 0.625 mg/ml vaginal cream (2 sources) Estrogen [...] sources) Acute bronchitis; Translations: [Acute bronchitis] Episodic Cataract (2 sources) Bilateral age-related nuclear cataracts; Translations: [Age-related nuclear cataract, bilateral] Onset: 07-27-19 24 07-27-2023 Chronic Congestive heart failure; nonhypertensive (1 source) Unspecified diastolic (congestive) heart failure; Translations: [UNSPECIFIED DIASTOLIC HEART FAILURE] Onset: 02-24-20 Chronic Disorders of lipid metabolism (1 source) [...] [HTN HEART DISEASE W/HEART FAIL] Onset: 02-24-20 22 Chronic Influenza (1 source) Influenza due to other identified influenza virus with other respiratory manifestations; Translations: [FLU D/T OTH ID FLU VIR OTH RSP MANF] Onset: 06-19-19 23 Episodic Nausea and vomiting (1 source) Nausea with vomiting, unspecified; Translations: [NAUSEA WITH VOMITING UNSPECIFIED] Onset: 06-19-19 23 Episodic Other aftercare (1 source) Other [facility] (current) drug therapy; Translations: [OTH [facility] CURRENT DRUG THERAPY] Onset: 06-19-19 23 Episodic Other connective tissue disease (3 sources) Fibromyalgia; Translations: [Fibromyalgia] Onset: 09-21-19 10 09-20-2009 Episodic Other gastrointestinal disorders (1 source) Irritable bowel syndrome without diarrhea; Translations: [IRRITABLE BOWEL SYND W/O DIARRHEA] Onset: 06-19-19 23 Chronic Other gastrointestinal disorders (2 sources) Diarrhea; [...] parts of digestive tract; Translations: [ACQ ABSENCE OTH PART DIGESTV TRACT] Onset: 06-19-19 Episodic Residual [...] COUGH, UNSPECIFIED; Translations: [COUGH, UNSPECIFIED] Onset: 06-19-19 Unclassified (1 source) CONTACT W/AND (SUSP) EXPOS COVID-19; Translations: [CONTACT W/AND (SUSP) EXPOS COVID-19] Onset: 02-13-20 Viral infection (1 source) COVID-19; Translations: [COVID-19] [...] activity/Vol] 117 U/L Critically high 25-115 [facility] Comment on above: Performed By: #### T SH, T7, ALIYAH, LIPA, CMP ####[facility] [address] [place] [id number]. Lawrence Wayne CBC AUTO DIFFon 07-01-2022 BASO # 0.1 103/ul Normal 0.0-0.1 [facility] Comment on above: Performed By: #### C BC ####[facility] [address] [place] [id number]. Lawrence Wayne Basophils/100 WBC (Bld) 0.6 % Normal 0.2-2.0 [facility] Comment on above: Performed By: #### C BC ####[facility] [address] [place] [address]Dr. Lawrence Wayne EO # 0.1 103/ul Normal 0.0-0.7 [facility] Comment on above: Performed By: #### C BC ####[facility] [address] [place] [address]Dr. Lawrence Wayne Eosinophils/100 WBC (Bld) 0.7 % Critically low 0.9-7.0 [facility] Comment on above: Performed By: #### C BC ####[facility] [address] [place], [place] [address]Dr. Lawrence Wayne Erythrocyte distribution width (RBC) [Ratio] 13.6 % Normal 11.0-15.0 [facility] Comment on above: Performed By: #### C BC ####[facility] [address] [place], [place] [address]Dr. Lawrence Wayne Hematocrit (Bld) [Volume fraction] 45.6 % Normal 36.0-48.0 [facility] Comment on above: Performed By: #### C BC ####[facility] [address] [place], [place] [address]Dr. Lawrence Wayne Hemoglobin (Bld) [Mass/Vol] 15.4 g/dL Normal 12.0-16.0 [facility] Comment on above: Performed By: #### C BC ####[facility] [address] [place], [place] [address]Dr. Lawrence Wayne IG # 0.03 10e3/ul Normal 0.00-0.03 [facility] Comment on above: Performed By: #### C BC ####[facility] [address] [place], [place] [address]Dr. Lawrence Wayne IG % 0.4 % Normal 0.0-0.5 [facility] Comment on above: Performed By: #### C BC ####[facility] [address] [place], [place] [address]Dr. Laraantonio Wayne LYMPH # 2.8 103/ul Normal 1.2-3.8 [facility] Comment on above: Performed By: #### C BC ####[facility] [address] [place] [id number]. Lawrence Tone Lymphocytes/100 WBC (Bld) 33.5 % Normal 20.5-60.0 [facility] Comment on above: Performed By: #### C BC ####[facility] [address] [place] [id number]. Lawrence Wayne MANUAL DIFF REQ NO Normal [facility] Comment on above: Performed By: #### C BC ####[facility] [address] [place] [id number]. Laraantonio Wayne MCH (RBC) [Entitic mass] 30.1 pg Normal 26.7-34.0 [facility] Comment on above: Performed By: #### C BC ####[facility] [address] [place], [place] [address]Dr. Lawrence Wayne MCHC (RBC) [Mass/Vol] 33.8 g/dL Normal 29.9-35.2 [facility] Comment on above: Performed By: #### C BC ####[facility] Kl[address] [place], [place] [address]Dr. Laraantonio Wayne MCV (RBC) [Entitic vol] 89.2 fL Normal 81.0-99.0 [facility] Comment on above: Performed By: #### C BC ####[facility] [address] [place], [place] [address]Dr. Lawrence Wayne MONO # 0.8 103/ul Normal 0.3-0.8 [facility] Comment on above: Performed By: #### C BC ####[facility] [address] [place], [place] [address]Dr. Lawrence Wayne Monocytes/100 WBC (Bld) 9.3 % Normal 1.7-12.0 [facility] Comment on above: Performed By: #### C BC ####[facility] [address] [place], [place] [address]Dr. Lawrence Wayne NEUT # 4.6 103/ul Normal 1.4-6.5 [facility] Comment on above: Performed By: #### C BC ####[facility] [address] [place] [id number]. Lawrence Wayne Neutrophils/100 WBC (Bld) 55.5 % Normal 43.0-75.0 [facility] Comment on above: Performed By: #### C BC ####[facility] [address] [place] [id number]. Lawrence Wayne Platelet mean volume (Bld) [Entitic vol] 8.6 fL Critically low 9.5-13.5 [facility] Comment on above: Performed By: #### C BC ####[facility] [address] [place] [id number]. Lawrence Wayne PLT 380 103/ul Normal 150-450 [facility] Comment on above: Performed By: #### C BC ####[facility] [address] [place] [id number]. Lawrence Wayne RBC 5.11 106/ul Normal 4.20-5.40 [facility] Comment on above: Performed By: #### C BC ####[facility] [address] [place] [id number]. Lawrence Wayne WBC 8.3 103/ul Normal 4.0-11.0 [facility] Comment on above: Performed By: #### C BC ####[facility] [address] [place] [id number]. Lawrence Wayne FREE THYROXINE INDEX T7on FTI 3.28 Normal 1.30-4.50 [facility] Comment on above: Performed By: #### T SH, T7, ALIYAH, LIPA, CMP ####[facility] [address] [place] [id number]. Lawrence Wyane T3U 36.0 % Normal 30.0-39.0 [facility] Comment on above: Performed By: #### T SH, T7, ALIYAH, LIPA, CMP ####[facility] [address] [place] [id number]. Laraantonio Wayne T4 [Mass/Vol] 9.10 ug/dL Normal 4.80-13.90 [facility] Comment on above: Performed By: #### T SH, T7, ALIYAH, LIPA, CMP ####[facility] [address] [place] [address]Dr. Lawrence Wayne LIPASEon 07-01-2022 Lipase [Catalytic activity/Vol] 125.0 U/L Normal 73.0-393.0 [facility] Comment on above: Performed By: #### T SH, T7, ALIYAH, LIPA, CMP ####[facility] [address] [place] [address]Dr. Lawrence Wayne PROF 14(COMP METB)on 023 Albumin [Mass/Vol] 3.8 g/dL Normal 3.4-5.0 [facility] Comment on above: Performed By: #### T SH, T7, ALIYAH, LIPA, CMP ####[facility] [address] [place] [address]Dr. Lawrence Wayne Albumin/Globulin [Mass ratio] 1.1 {ratio} Normal [facility] Comment on above: Performed By: #### T SH, T7, ALIYAH, LIPA, CMP ####[facility] [address] [place], [place] [address]Dr. Lawrence Wayne ALP [Catalytic activity/Vol] 104 U/L Normal 46-116 [facility] Comment on above: Performed By: #### T SH, T7, ALIYAH, LIPA, CMP ####[facility] [address]xs[address] [place] [address]Dr. Lawrence Wayne ALT [Catalytic activity/Vol] 36 U/L Normal 14-59 [facility] Comment on above: Performed By: #### T SH, T7, ALIYAH, LIPA, CMP ####[facility] [address] [place] [address]Dr. Lawrence Wayne Anion gap [Moles/Vol] 11.7 mmol/L Normal [facility] Comment on above: Performed By: #### T SH, T7, ALIYAH, LIPA, CMP ####[facility] [address] [place] [address]Dr. Lawrence Wayne AST [Catalytic activity/Vol] 22 U/L Normal 15-37 [facility] Comment on above: Performed By: #### T SH, T7, ALIYAH, LIPA, CMP ####[facility] [address] [place] [address]Dr. Lawrence Wayne Bilirubin [Mass/Vol] 0.5 mg/dL Normal 0.2-1.0 [facility] Comment on above: Performed By: #### T SH, T7, ALIYAH, LIPA, CMP ####[facility] E[address] [place], [place] [address]Dr. Lawrence Wayne Calcium [Mass/Vol] 9.8 mg/dL Normal 8.5-10.1 [facility] Comment on above: Performed By: #### T SH, T7, ALIYAH, LIPA, CMP ####[facility] [address] [place], [place] [address]Dr. Lawrence Wayne Chloride [Moles/Vol] 102 mmol/L Normal 98-107 [facility] Comment on above: Performed By: #### T SH, T7, ALIYAH, LIPA, CMP ####[facility] [address]se[address] [place], [place] [address]Dr. Lawrence Wayne CO2 [Moles/Vol] 29.3 mmol/L Normal 21.0-32.0 [facility] Comment on above: Performed By: #### T SH, T7, ALIYAH, LIPA, CMP ####[facility] [address] [place], [place] [address]Dr. Lawrence Wayne Creatinine [Mass/Vol] 0.88 mg/dL Normal 0.55-1.02 [facility] Comment on above: Performed By: #### T SH, T7, ALIYAH, LIPA, CMP ####[facility] [address] [place], [place] [address]Dr. Lawrence Wayne EGFR-AF AUSTRALIAN >60 Normal >=60 [facility] Comment on above: Performed By: #### T SH, T7, ALIYAH, LIPA, CMP ####[facility] [address] [place], [place] [address]Dr. Lawrence Wayne EGFR-NON AF AUSTRALIAN >60 Normal >=60 [facility] Comment on above: Performed By: #### T SH, T7, ALIYAH, LIPA, CMP ####[facility] [address] [place] [address]Dr. Lawrence Wayne Globulin (S) [Mass/Vol] 3.5 g/dL Normal [facility] Comment on above: Performed By: #### T SH, T7, ALIYAH, LIPA, CMP ####[facility] [address] [place] [address]Dr. Laralan Wayne Glucose [Mass/Vol] 98 mg/dL Normal 74-106 [facility] Comment on above: Performed By: #### T SH, T7, ALIYAH, LIPA, CMP ####[facility] [address] [place], [place] [address]Dr. Laralan Wayne Potassium [Moles/Vol] 3.9 mmol/L Normal 3.5-5.1 [facility] Comment on above: Performed By: #### T SH, T7, ALIYAH, LIPA, CMP ####[facility] [address] [place], [place] [address]Dr. Yilan Wayne Protein [Mass/Vol] 7.3 g/dL Normal 6.4-8.2 [facility] Comment on above: Performed By: #### T SH, T7, ALIYAH, LIPA, CMP ####[facility] [address] [place] [address]Dr. Yilan Wayne Sodium [Moles/Vol] 139 mmol/L Normal 136-145 [facility] Comment on above: Performed By: #### T SH, T7, ALIYAH, LIPA, CMP ####[facility] [address] [place], [place] [address]Dr. Yilan Wayne Urea nitrogen [Mass/Vol] 11.0 mg/dL Normal 7.0-18.0 [facility] Comment on above: Performed By: #### T SH, T7, ALIYAH, LIPA, CMP ####[facility] [address] [place] [address]Dr. Yilan Wayne Urea nitrogen/Creatini ne [Mass ratio] 12.5 mg/mg Normal [facility] Comment on above: Performed By: #### T SH, T7, ALIYAH, LIPA, CMP ####[facility] [address] [place] [address]Dr. Lawrence Wayne TSHon 07-01-2022 TSH 1.744 uIU/mL Normal 0.358-3.74 0 [facility] Comment on above: Performed By: #### T SH, T7, ALIYAH, LIPA, CMP ####[facility] [address] [place] [address]DrKim Wayne CBC AUTO DIFFon 06-17-2022 BASO # 0.0 103/ul Normal 0.0-0.1 [facility] Comment on above: Performed By: #### A MY, CMP, LIPA #### [facility] [address] [place] [address] Dr. Lawrence Wayne Basophils/100 WBC (Bld) 0.4 % Normal 0.2-2.0 [facility] Comment on above: Performed By: #### A MY, CMP, LIPA #### [facility] [address] [address] [address] Lawrence Wayne EO # 0.0 103/ul Normal 0.0-0.7 [facility] Comment on above: Performed By: #### A MY, CMP, LIPA #### [facility] [address] [address] [address] Lawrence Wayne Eosinophils/100 WBC (Bld) 0.8 % Critically low 0.9-7.0 [facility] Comment on above: Performed By: #### A MY, CMP, LIPA #### [facility] [address] [address] [address] Lawrence Wayne Erythrocyte distribution width (RBC) [Ratio] 13.2 % Normal 11.0-15.0 [facility] Comment on above: Performed By: #### A MY, CMP, LIPA #### [facility] [address] [address] [address] Lawrence Wayne Hematocrit (Bld) [Volume fraction] 43.1 % Normal 36.0-48.0 [facility] Comment on above: Performed By: #### A MY, CMP, LIPA #### [facility] [address] [place] [address] Dr. Lawrence Wayne Hemoglobin (Bld) [Mass/Vol] 15.1 g/dL Normal 12.0-16.0 [facility] Comment on above: Performed By: #### A MY, CMP, LIPA #### [facility] [address] [place] [address] Dr. Lawrence Wayne IG # 0.03 10e3/ul Normal 0.00-0.03 [facility] Comment on above: Performed By: #### A MY, CMP, LIPA #### [facility] [address] [place] [address] Dr. Lawrence Wayne IG % 0.6 % Critically high 0.0-0.5 [facility] Comment on above: Performed By: #### A MY, CMP, LIPA #### [facility] [address] [place] [address] Dr. Lawrence Wayne LYMPH # 1.1 103/ul Critically low 1.2-3.8 [facility] Comment on above: Performed By: #### A MY, CMP, LIPA #### [facility] [address] [place] [address] Dr. Lawrence Wayne Lymphocytes/100 WBC (Bld) 22.0 % Normal 20.5-60.0 [facility] Comment on above: Performed By: #### A MY, CMP, LIPA #### [facility] [address] [place] [address] Dr. Lawrence Wayne MANUAL DIFF REQ NO Normal [facility] Comment on above: Performed By: #### A MY, CMP, LIPA #### [facility] [address] [place] [address] Dr. Lawrence Wayne MCH (RBC) [Entitic mass] 30.3 pg Normal 26.7-34.0 [facility] Comment on above: Performed By: #### A MY, CMP, LIPA #### [facility] [address] [place] [address] Dr. Lawrence Wayne MCHC (RBC) [Mass/Vol] 35.0 g/dL Normal 29.9-35.2 [facility] Comment on above: Performed By: #### A MY, CMP, LIPA #### [facility] [address] [place] [address] Dr. Lawrence Wayne MCV (RBC) [Entitic vol] 86.4 fL Normal 81.0-99.0 [facility] Comment on above: Performed By: #### A MY, CMP, LIPA #### [facility] [address] [place] [address] Dr. Lawrence Wayne MONO # 0.7 103/ul Normal 0.3-0.8 [facility] Comment on above: Performed By: #### A MY, CMP, LIPA #### [facility] [address] [place] [address] Dr. Lawrence Wayne Monocytes/100 WBC (Bld) 13.6 % Critically high 1.7-12.0 [facility] Comment on above: Performed By: #### A MY, CMP, LIPA #### [facility] [address] [place] [address] Dr. Lawrence Wayne NEUT # 3.2 103/ul Normal 1.4-6.5 [facility] Comment on above: Performed By: #### A MY, CMP, LIPA #### [facility] [address] [place] [address] Dr. Lawrence Wayne Neutrophils/100 WBC (Bld) 62.6 % Normal 43.0-75.0 [facility] Comment on above: Performed By: #### A MY, CMP, LIPA #### [facility] [address] [place] [address] Dr. Lawrence Wayne Platelet mean volume (Bld) [Entitic vol] 9.0 fL Critically low 9.5-13.5 [facility] Comment on above: Performed By: #### A MY, CMP, LIPA #### [facility] [address] [place] [address] Dr. Lawrence Wayne PLT 257 103/ul Normal 150-450 [facility] Comment on above: Performed By: #### A MY, CMP, LIPA #### [facility] [address] [place] [address] Dr. Lawrence Wayne RBC 4.99 106/ul Normal 4.20-5.40 [facility] Comment on above: Performed By: #### A MY, CMP, LIPA #### [facility] [address] [place] [address] Dr. Lawrence Wayne WBC 5.1 103/ul Normal 4.0-11.0 [facility] Comment on above: Performed By: #### A MY, CMP, LIPA #### [facility] [address] [place] [address] Dr. Lawrence Wayne INFLUENZA A AND B AGon 06-17 [facility] SEE BELOW Normal [facility] Comment on above: Result Comment: Nega tive for Flu B protein antigen. Infection due to Flu B cannot be ruled out. Flu B antigen in the sample may be below the detection limit of the test. Performed By: #### A MY, CMP, LIPA #### [facility] [address] [place] [address] Dr. Lawrence Wayne INFLUENZA A AG Positive Abnormal NEGATIVE SEE COMMENT [facility] Comment on above: Performed By: #### A MY, CMP, LIPA #### [facility] [address] [place] [address] Dr. Lawrence Wayne INFLUENZA B AG Negative Normal NEGATIVE SEE COMMENT [facility] Comment on above: Performed By: #### A MY, CMP, LIPA #### [facility] [address] [place] [address] Dr. Lawrence Wayne PROF 14(COMP METB)on 023 Albumin [Mass/Vol] 3.4 g/dL Normal 3.4-5.0 [facility] Comment on above: Performed By: #### A MY, CMP, LIPA #### [facility] [address] [place] [address] Dr. Lawrence Wayne Albumin/Globulin [Mass ratio] 0.9 {ratio} Normal [facility] Comment on above: Performed By: #### A MY, CMP, LIPA #### [facility] [address] [address] [address] Lawrence Wayne ALP [Catalytic activity/Vol] 94 U/L Normal 46-116 [facility] Comment on above: Performed By: #### A MY, CMP, LIPA #### [facility] [address] [address] [address] Lawrence Wayne ALT [Catalytic activity/Vol] 36 U/L Normal 14-59 [facility] Comment on above: Performed By: #### A MY, CMP, LIPA #### [facility] [address] [address] [address] Lawrence Wayne Anion gap [Moles/Vol] 18.9 mmol/L Normal [facility] Comment on above: Performed By: #### A MY, CMP, LIPA #### [facility] [address] [address] [address] Lawrence Wayne AST [Catalytic activity/Vol] 32 U/L Normal 15-37 [facility] Comment on above: Performed By: #### A MY, CMP, LIPA #### [facility] [address] [address] [address] Lawrence Wayne Bilirubin [Mass/Vol] 0.4 mg/dL Normal 0.2-1.0 [facility] Comment on above: Performed By: #### A MY, CMP, LIPA #### [facility] [address] [address] [address] Lawrence Wayne Calcium [Mass/Vol] 9.1 mg/dL Normal 8.5-10.1 [facility] Comment on above: Performed By: #### A MY, CMP, LIPA #### [facility] [address] [address] [address] Lawrence Wayne Chloride [Moles/Vol] 100 mmol/L Normal 98-107 [facility] Comment on above: Performed By: #### A MY, CMP, LIPA #### [facility] [address] [address] [address] Lawrence Wayne CO2 [Moles/Vol] 19.7 mmol/L Critically low 21.0-32.0 [facility] Comment on above: Performed By: #### A MY, CMP, LIPA #### [facility] [address] [address] [address] Lawrence Wayne Creatinine [Mass/Vol] 1.13 mg/dL Critically high 0.55-1.02 [facility] Comment on above: Performed By: #### A MY, CMP, LIPA #### [facility] [address] [place] [address] Dr. Lawrence Wayne EGFR-AF AUSTRALIAN 58 mL/min/1.73m2 Critically low >=60 [facility] Comment on above: Performed By: #### A MY, CMP, LIPA #### [facility] [address] [place] [address] Dr. Lawrence Wayne EGFR-NON AF AUSTRALIAN 48 mL/min/1.73m2 Critically low >=60 [facility] Comment on above: Performed By: #### A MY, CMP, LIPA #### [facility] [address] [place] [address] Dr. Lawrence Wayne Globulin (S) [Mass/Vol] 3.9 g/dL Normal [facility] Comment on above: Performed By: #### A MY, CMP, LIPA #### [facility] [address] [place] [address] Dr. Lawrence Wayne Glucose [Mass/Vol] 105 mg/dL Normal 74-106 [facility] Comment on above: Performed By: #### A MY, CMP, LIPA #### [facility] [address] [place] [address] Dr. Lawrence Wayne Potassium [Moles/Vol] 3.6 mmol/L Normal 3.5-5.1 [facility] Comment on above: Performed By: #### A MY, CMP, LIPA #### [facility] [address] [place] [address] Dr. Lawrence Wayne Protein [Mass/Vol] 7.3 g/dL Normal 6.4-8.2 [facility] Comment on above: Performed By: #### A MY, CMP, LIPA #### [facility] [address] [place] [address] Dr. Lawrence Wayne Sodium [Moles/Vol] 135 mmol/L Critically low 136-145 [facility] Comment on above: Performed By: #### A GARTH CMP, LIPA #### [facility] [address] [address] [address] Lawrence Wayne Urea nitrogen [Mass/Vol] 13.0 mg/dL Normal 7.0-18.0 [facility] Comment on above: Performed By: #### A GARTH CMP, LIPA #### [facility] [address] [address] [address] Lawrence Wayne Urea nitrogen/Creatini ne [Mass ratio] 11.5 mg/mg Normal [facility] Comment on above: Performed By: #### A KARY LIANG, LIPA #### [facility] [address] [address] [address] Lawrence Wayne MRI CSPINE WO CONon [...] degenerative facet arthropathy. Electronically authenticated by: TYRELL ADANBOB Date: 2022-05-20 10:26 Normal [facility] AMYLASEon 05-07-2022 Amylase [Catalytic activity/Vol] 81 U/L Normal 25-115 [facility] Comment on above: Performed By: #### A MY, CMP, LIPA #### [facility] [address] [place] [address] Dr. Lawrence Wayne CBC AUTO DIFFon 05-07-2022 BASO # 0.0 103/ul Normal 0.0-0.1 [facility] Comment on above: Performed By: #### A MY, CMP, LIPA #### [facility] [address] [place] [address] Dr. Lawrence Wayne Basophils/100 WBC (Bld) 0.8 % Normal 0.2-2.0 [facility] Comment on above: Performed By: #### A MY, CMP, LIPA #### [facility] [address] [place] [address] Dr. Lawrence Wayne EO # 0.1 103/ul Normal 0.0-0.7 [facility] Comment on above: Performed By: #### A MY, CMP, LIPA #### [facility] [address] [place] [address] Dr. Lawrence Wayne Eosinophils/100 WBC (Bld) 1.5 % Normal 0.9-7.0 [facility] Comment on above: Performed By: #### A MY, CMP, LIPA #### [facility] [address] [place] [address] Dr. Lawrence Wayne Erythrocyte distribution width (RBC) [Ratio] 12.7 % Normal 11.0-15.0 [facility] Comment on above: Performed By: #### A MY, CMP, LIPA #### [facility] [address] [place] [address] Dr. Lawrence Wayne Hematocrit (Bld) [Volume fraction] 40.5 % Normal 36.0-48.0 [facility] Comment on above: Performed By: #### A MY, CMP, LIPA #### [facility] [address] [address] [address] Lawrence Wayne Hemoglobin (Bld) [Mass/Vol] 13.8 g/dL Normal 12.0-16.0 [facility] Comment on above: Performed By: #### A MY, CMP, LIPA #### [facility] [address] [place] [address] Dr. Lawrence Wayne IG # 0.01 10e3/ul Normal 0.00-0.03 [facility] Comment on above: Performed By: #### A MY, CMP, LIPA #### [facility] [address] [place] [address] Dr. Lawrence Wayne IG % 0.2 % Normal 0.0-0.5 [facility] Comment on above: Performed By: #### A MY, CMP, LIPA #### [facility] [address] [place] [address] Dr. Lawrence Wayne LYMPH # 1.7 103/ul Normal 1.2-3.8 [facility] Comment on above: Performed By: #### A MY, CMP, LIPA #### [facility] [address] [place] [address] Dr. Lawrence Wayne Lymphocytes/100 WBC (Bld) 32.7 % Normal 20.5-60.0 [facility] Comment on above: Performed By: #### A MY, CMP, LIPA #### [facility] [address] [place] [address] Dr. Lawrence Wayne MANUAL DIFF REQ NO Normal [facility] Comment on above: Performed By: #### A MY, CMP, LIPA #### [facility] [address] [place] [address] Dr. Lawrence Wayne MCH (RBC) [Entitic mass] 30.5 pg Normal 26.7-34.0 [facility] Comment on above: Performed By: #### A MY, CMP, LIPA #### [facility] [address] [place] [address] Dr. Lawrence Wayne MCHC (RBC) [Mass/Vol] 34.1 g/dL Normal 29.9-35.2 [facility] Comment on above: Performed By: #### A MY, CMP, LIPA #### [facility] [address] [place] [address] Dr. Lawrence Wayne MCV (RBC) [Entitic vol] 89.4 fL Normal 81.0-99.0 [facility] Comment on above: Performed By: #### A MY, CMP, LIPA #### [facility] [address] [place] [address] Dr. Lawrence Wayne MONO # 0.6 103/ul Normal 0.3-0.8 [facility] Comment on above: Performed By: #### A MY, CMP, LIPA #### [facility] [address] [place] [address] Dr. Lawrence Wayne Monocytes/100 WBC (Bld) 10.5 % Normal 1.7-12.0 [facility] Comment on above: Performed By: #### A MY, CMP, LIPA #### [facility] [address] [place] [address] Dr. Lawrence Wayne NEUT # 2.9 103/ul Normal 1.4-6.5 [facility] Comment on above: Performed By: #### A MY, CMP, LIPA #### [facility] [address] [place] [address] Dr. Lawrence Wayne Neutrophils/100 WBC (Bld) 54.3 % Normal 43.0-75.0 [facility] Comment on above: Performed By: #### A MY, CMP, LIPA #### [facility] [address] [place] [address] Dr. Lawrence Wayne Platelet mean volume (Bld) [Entitic vol] 9.4 fL Critically low 9.5-13.5 [facility] Comment on above: Performed By: #### A MY, CMP, LIPA #### [facility] [address] [place] [address] Dr. Lawrence Wayne PLT 292 103/ul Normal 150-450 [facility] Comment on above: Performed By: #### A MY, CMP, LIPA #### [facility] [address] [place] [address] Dr. Lawrence Wayne RBC 4.53 106/ul Normal 4.20-5.40 [facility] Comment on above: Performed By: #### A MY, CMP, LIPA #### [facility] [address] [place] [address] Dr. Lawrence Wayne WBC 5.3 103/ul Normal 4.0-11.0 [facility] Comment on above: Performed By: #### A MY, CMP, LIPA #### [facility] [address] [place] [address] Dr. Lawrence Wayne LIPASEon 05-07-2022 Lipase [Catalytic activity/Vol] 86.0 U/L Normal 73.0-393.0 [facility] Comment on above: Performed By: #### A MY, CMP, LIPA #### [facility] [address] [place] [address] Dr. Lawrence Wayne PROF 14(COMP METB)on 022 Albumin [Mass/Vol] 3.7 g/dL Normal 3.4-5.0 [facility] Comment on above: Performed By: #### A MY, CMP, LIPA #### [facility] [address] [place] [address] Dr. Lawrence Wayne Albumin/Globulin [Mass ratio] 1.1 {ratio} Normal [facility] Comment on above: Performed By: #### A MY, CMP, LIPA #### [facility] [address] [place] [address] Dr. Lawrence Wayne ALP [Catalytic activity/Vol] 96 U/L Normal 46-116 [facility] Comment on above: Performed By: #### A MY, CMP, LIPA #### [facility] [address] [place] [address] Dr. Lawrence Wayne ALT [Catalytic activity/Vol] 24 U/L Normal 14-59 [facility] Comment on above: Performed By: #### A MY, CMP, LIPA #### [facility] [address] [place] [address] Dr. Lawrence Wayne Anion gap [Moles/Vol] 8.3 mmol/L Normal [facility] Comment on above: Performed By: #### A MY, CMP, LIPA #### [facility] [address] [place] [address] Dr. Lawrence Wayne AST [Catalytic activity/Vol] 19 U/L Normal 15-37 [facility] Comment on above: Performed By: #### A MY, CMP, LIPA #### [facility] [address] [place] [address] Dr. Lawrence Wayne Bilirubin [Mass/Vol] 0.2 mg/dL Normal 0.2-1.0 [facility] Comment on above: Performed By: #### A MY, CMP, LIPA #### [facility] [address] [place] [address] Dr. Lawrence Wayne Calcium [Mass/Vol] 9.1 mg/dL Normal 8.5-10.1 [facility] Comment on above: Performed By: #### A MY, CMP, LIPA #### [facility] [address] [place] [address] Dr. Lawrence Wayne Chloride [Moles/Vol] 103 mmol/L Normal 98-107 [facility] Comment on above: Performed By: #### A MY, CMP, LIPA #### [facility] [address] [place] [address] Dr. Lawrence Wayne CO2 [Moles/Vol] 30.6 mmol/L Normal 21.0-32.0 [facility] Comment on above: Performed By: #### A MY, CMP, LIPA #### [facility] [address] [place] [address] Dr. Lawrence Wayne Creatinine [Mass/Vol] 0.88 mg/dL Normal 0.55-1.02 [facility] Comment on above: Performed By: #### A MY, CMP, LIPA #### [facility] [address] [place] [address] Dr. Lawrence Wayne EGFR-AF AUSTRALIAN >60 Normal >=60 [facility] Comment on above: Performed By: #### A MY, CMP, LIPA #### [facility] [address] [address] [address] Lawrence Wayne EGFR-NON AF AUSTRALIAN >60 Normal >=60 [facility] Comment on above: Performed By: #### A MY CMP, LIPA #### [facility] [address] [address] [address] Lawrence Wayne Globulin (S) [Mass/Vol] 3.4 g/dL Normal [facility] Comment on above: Performed By: #### A MY, CMP, LIPA #### [facility] [address] [address] [address] Lawrence Wayne Glucose [Mass/Vol] 94 mg/dL Normal 74-106 [facility] Comment on above: Performed By: #### A MY CMP, LIPA #### [facility] [address] [place] [address] Dr. Lawrence Wayne Potassium [Moles/Vol] 3.9 mmol/L Normal 3.5-5.1 [facility] Comment on above: Performed By: #### A MY CMP, LIPA #### [facility] [address] [place] [address] Dr. Lawrence Wayne Protein [Mass/Vol] 7.1 g/dL Normal 6.4-8.2 [facility] Comment on above: Performed By: #### A MY CMP, LIPA #### [facility] [address] [place] [address] Dr. Lawrence Wayne Sodium [Moles/Vol] 138 mmol/L Normal 136-145 [facility] Comment on above: Performed By: #### A MY, CMP, LIPA #### [facility] [address] [place] [address] Dr. Lawrence Wayne Urea nitrogen [Mass/Vol] 10.0 mg/dL Normal 7.0-18.0 [facility] Comment on above: Performed By: #### A MY, CMP, LIPA #### [facility] [address] [place] [address] Dr. Lawrence Wayne Urea nitrogen/Creatini ne [Mass ratio] 11.4 mg/mg Normal [facility] Comment on above: Performed By: #### A MY, CMP, LIPA #### [facility] [address] [address] [address] Lawrence Wayne MG MAMM SCREEN 3D QING CADon 03-26-2022 MG MAMM SCREEN 3D QING CAD Patient: SKIP HONG. Exam Date: 03/26/2022 : 1955 Gender:F Ordering : DR RADHA LYMAN . Admission #: [id number] Family : Order #: [id number] CLICK HERE TO VIEW EXAM RADIOLOGY REPORT [...] breast cancer at age 30. LOCATION: [facility] BREAST COMPOSITION: Heterogeneously dense,which may obscure small [...] Rasheed MD on 03/26/2022 at 09:53 Normal [facility] NM STRESS/REST MULTIon 03-24 NM STRESS/REST MULTI Patient: SKIP HONG. Exam Date: 03/24/2022 : 1955 Gender:F Ordering : DR ANITHA RAMEY . Admission #: [id number] Family : Order #: [id number] CLICK HERE TO VIEW EXAM RADIOLOGY REPORT [...] Mark Rasheed MD on 03/25/2022 at 07:15 Normal [facility] T4, T3U, FTI LABCORPon 02-19 Free Thyroxine Index 2.3 Normal 1.2-4.9 [facility] Comment on above: Performed By: #### A MY, CMP, LIPA #### [facility] [address] [place] [address] Dr. Lawrence Wayne T3 Uptake 28 % Normal 24-39 [facility] Comment on above: Performed By: #### A MY, CMP, LIPA #### [facility] [address] [address] [address] Lawrence Wayne T4 [Mass/Vol] 8.3 ug/dL Normal 4.5-12.0 [facility] Comment on above: Performed By: #### A MY, CMP, LIPA #### [facility] [address] [address] [address] Lawrence Wayne BNPon 02-18-2022 Natriuretic peptide B (Bld) [Mass/Vol] 78.0 pg/mL Normal <=900.0 [facility] Comment on above: Performed By: #### A MY, CMP, LIPA #### [facility] [address] [address] [address] Lawrence Wayne CBC AUTO DIFFon 02-18-2022 BASO # 0.1 103/ul Normal 0.0-0.1 [facility] Comment on above: Performed By: #### C BC ####[facility] [address] [address]DrKim Wayne Basophils/100 WBC (Bld) 0.9 % Normal 0.2-2.0 [facility] Comment on above: Performed By: #### C BC ####[facility] [address] [address]Dr. Lawrence Wayne EO # 0.1 103/ul Normal 0.0-0.7 [facility] Comment on above: Performed By: #### C BC ####[facility] [address] [place], [place] [address]Dr. Lawrence Wayne Eosinophils/100 WBC (Bld) 1.1 % Normal 0.9-7.0 [facility] Comment on above: Performed By: #### C BC ####[facility] [address] [place], [place] [address]Dr. Lawrence Wayne Erythrocyte distribution width (RBC) [Ratio] 12.6 % Normal 11.0-15.0 [facility] Comment on above: Performed By: #### C BC ####[facility] [address] [place], [place] [address]DrKim Wayne Hematocrit (Bld) [Volume fraction] 44.4 % Normal 36.0-48.0 [facility] Comment on above: Performed By: #### C BC ####[facility] [address] [place], [place] [address]DrKim Wayne Hemoglobin (Bld) [Mass/Vol] 14.7 g/dL Normal 12.0-16.0 [facility] Comment on above: Performed By: #### C BC ####[facility] [address] [address]Dr. Lawrence Wayne IG # 0.02 10e3/ul Normal 0.00-0.03 [facility] Comment on above: Performed By: #### C BC ####[facility] [address] [address]Dr. Lawrence Wayne IG % 0.3 % Normal 0.0-0.5 [facility] Comment on above: Performed By: #### C BC ####[facility] [address] [place], [place] [address]DrKim Wayne LYMPH # 1.8 103/ul Normal 1.2-3.8 [facility] Comment on above: Performed By: #### C BC ####[facility] [address] [place], [place] [address]DrKim Wayne Lymphocytes/100 WBC (Bld) 26.1 % Normal 20.5-60.0 [facility] Comment on above: Performed By: #### C BC ####[facility] [address] [place], [place] [address]DrKim Wayne MANUAL DIFF REQ NO Normal [facility] Comment on above: Performed By: #### C BC ####[facility] [address] [place], [place] [address]DrKim Wayne MCH (RBC) [Entitic mass] 30.2 pg Normal 26.7-34.0 [facility] Comment on above: Performed By: #### C BC ####[facility] [address] [place], [place] [address]DrKim Wayne MCHC (RBC) [Mass/Vol] 33.1 g/dL Normal 29.9-35.2 [facility] Comment on above: Performed By: #### C BC ####[facility] [address] [place], [place] [address]DrKim Wayne MCV (RBC) [Entitic vol] 91.4 fL Normal 81.0-99.0 [facility] Comment on above: Performed By: #### C BC ####[facility] [address] [place], [place] [address]DrKim Wayne MONO # 0.8 103/ul Normal 0.3-0.8 [facility] Comment on above: Performed By: #### C BC ####[facility] [address] [address]Dr. Lawrence Wayne Monocytes/100 WBC (Bld) 11.0 % Normal 1.7-12.0 [facility] Comment on above: Performed By: #### C BC ####[facility] [address] [place], [place] [address]Dr. Larwence Wayne NEUT # 4.2 103/ul Normal 1.4-6.5 [facility] Comment on above: Performed By: #### C BC ####[facility] [address] [place], [place] [address]Dr. Lawrence Wayne Neutrophils/100 WBC (Bld) 60.6 % Normal 43.0-75.0 [facility] Comment on above: Performed By: #### C BC ####[facility] [address] [place], [place] [address]Dr. Lawrence Wayne Platelet mean volume (Bld) [Entitic vol] 9.2 fL Critically low 9.5-13.5 [facility] Comment on above: Performed By: #### C BC ####[facility] [address] [place], [place] [address]Dr. Lawrence Wayne PLT 322 103/ul Normal 150-450 [facility] Comment on above: Performed By: #### C BC ####[facility] [address] [place], [place] [address]Dr. Lawrence Wayne RBC 4.86 106/ul Normal 4.20-5.40 [facility] Comment on above: Performed By: #### C BC ####[facility] [address] [place], [place] [address]Dr. Lawrence Wayne WBC 7.0 103/ul Normal 4.0-11.0 [facility] Comment on above: Performed By: #### C BC ####[facility] [address] [place], [place] [address]DrKim Lawrence Wayne IRONon 02-18-2022 Iron [Mass/Vol] 89.0 ug/dL Normal 50.0-170.0 [facility] Comment on above: Performed By: #### A MY, CMP, LIPA #### [facility] [address] [address] [address] Lawrence Wayne PROF 14(COMP METB)on 022 Albumin [Mass/Vol] 4.0 g/dL Normal 3.4-5.0 [facility] Comment on above: Performed By: #### A MY, CMP, LIPA #### [facility] [address] [address] [address] Lawrence Wayne Albumin/Globulin [Mass ratio] 1.1 {ratio} Normal [facility] Comment on above: Performed By: #### A MY, CMP, LIPA #### [facility] [address] [place] [address] Dr. Lawrence Wayne ALP [Catalytic activity/Vol] 98 U/L Normal 46-116 [facility] Comment on above: Performed By: #### A MY, CMP, LIPA #### [facility] [address] [place] [address] Dr. Lawrence Wayne ALT [Catalytic activity/Vol] 23 U/L Normal 14-59 [facility] Comment on above: Performed By: #### A MY, CMP, LIPA #### [facility] [address] [place] [address] Dr. Lawrence Wayne Anion gap [Moles/Vol] 4.9 mmol/L Normal [facility] Comment on above: Performed By: #### A MY, CMP, LIPA #### [facility] [address] [place] [address] Dr. Lawrence Wayne AST [Catalytic activity/Vol] 19 U/L Normal 15-37 [facility] Comment on above: Performed By: #### A MY, CMP, LIPA #### [facility] [address] [place] [address] Dr. Lawrence Wayne Bilirubin [Mass/Vol] 0.4 mg/dL Normal 0.2-1.0 [facility] Comment on above: Performed By: #### A MY, CMP, LIPA #### [facility] [address] [address] [address] Lawrence Wayne Calcium [Mass/Vol] 9.5 mg/dL Normal 8.5-10.1 [facility] Comment on above: Performed By: #### A MY, CMP, LIPA #### [facility] [address] [place] [address] Dr. Lawrence Wayne Chloride [Moles/Vol] 102 mmol/L Normal 98-107 [facility] Comment on above: Performed By: #### A MY, CMP, LIPA #### [facility] [address] [place] [address] Dr. Lawrence Wayne CO2 [Moles/Vol] 30.1 mmol/L Normal 21.0-32.0 [facility] Comment on above: Performed By: #### A MY, CMP, LIPA #### [facility] [address] [place] [address] Dr. Lawrence Wayne Creatinine [Mass/Vol] 0.99 mg/dL Normal 0.55-1.02 [facility] Comment on above: Performed By: #### A MY, CMP, LIPA #### [facility] [address] [place] [address] Dr. Lawrence Wayne EGFR-AF AUSTRALIAN >60 Normal >=60 [facility] Comment on above: Performed By: #### A MY, CMP, LIPA #### [facility] [address] [place] [address] Dr. Lawrence Wayne EGFR-NON AF AUSTRALIAN 56 mL/min/1.73m2 Critically low >=60 [facility] Comment on above: Performed By: #### A MY, CMP, LIPA #### [facility] [address] [place] [address] Dr. Lawrence Wayne Globulin (S) [Mass/Vol] 3.5 g/dL Normal [facility] Comment on above: Performed By: #### A MY, CMP, LIPA #### [facility] [address] [place] [address] Dr. Lawrence Wayne Glucose [Mass/Vol] 100 mg/dL Normal 74-106 [facility] Comment on above: Performed By: #### A MY, CMP, LIPA #### [facility] [address] [address] [address] Lawrence Wayne Potassium [Moles/Vol] 4.0 mmol/L Normal 3.5-5.1 [facility] Comment on above: Performed By: #### A MY, CMP, LIPA #### [facility] [address] [place] [address] Dr. Lawrence Wayne Protein [Mass/Vol] 7.5 g/dL Normal 6.4-8.2 [facility] Comment on above: Performed By: #### A MY, CMP, LIPA #### [facility] [address] [place] [address] Dr. Lawrence Wayne Sodium [Moles/Vol] 133 mmol/L Critically low 136-145 [facility] Comment on above: Performed By: #### A MY, CMP, LIPA #### [facility] [address] [place] [address] Dr. Lawrence Wayne Urea nitrogen [Mass/Vol] 14.0 mg/dL Normal 7.0-18.0 [facility] Comment on above: Performed By: #### A MY, CMP, LIPA #### [facility] [address] [place] [address] Dr. Lawrence Wayne Urea nitrogen/Creatini ne [Mass ratio] 14.1 mg/mg Normal [facility] Comment on above: Performed By: #### A MY, CMP, LIPA #### [facility] [address] [place] [address] Dr. Lawrence Wayne TSHon 02-18-2022 TSH 1.273 uIU/mL Normal 0.358-3.74 0 [facility] Comment on above: Performed By: #### A MY, CMP, LIPA #### [facility] [address] [place] [address] Dr. Lawrence Wayne AMMONIAon 02-07-2022 Ammonia (P) [Mass/Vol] ug/dL Critically low 11-32 [facility] Comment on above: Performed By: #### A MM ####[facility] [address] [address]DrKim Wayne AMYLASEon 02-07-2022 Amylase [Catalytic activity/Vol] 88 U/L Normal 25-115 [facility] Comment on above: Performed By: #### A MY, CMP, LIPA #### [facility] [address] [place] [address] Dr. Lawrence Wayne BNPon 02-07-2022 Natriuretic peptide B (Bld) [Mass/Vol] 236.0 pg/mL Normal <=900.0 [facility] Comment on above: Performed By: #### A MY, CMP, LIPA #### [facility] [address] [place] [address] Dr. Lawrence Wayne CBC AUTO DIFFon 02-07-2022 BASO # 0.0 103/ul Normal 0.0-0.1 [facility] Comment on above: Performed By: #### C BC ####[facility] On[address] [place], [place] [address]DrKim Wayne Basophils/100 WBC (Bld) 0.7 % Normal 0.2-2.0 [facility] Comment on above: Performed By: #### C BC ####[facility] [address] [place], [place] [address]DrKim Wayne EO # 0.1 103/ul Normal 0.0-0.7 [facility] Comment on above: Performed By: #### C BC ####[facility] [address] [place], [place] [address]Dr. Lawrence Wayne Eosinophils/100 WBC (Bld) 1.3 % Normal 0.9-7.0 [facility] Comment on above: Performed By: #### C BC ####[facility] [address] [place], [place] [address]DriKm Wayne Erythrocyte distribution width (RBC) [Ratio] 12.7 % Normal 11.0-15.0 [facility] Comment on above: Performed By: #### C BC ####[facility] [address]arr[address] [place], [place] [address]DrKim Wayne Hematocrit (Bld) [Volume fraction] 38.7 % Normal 36.0-48.0 [facility] Comment on above: Performed By: #### C BC ####[facility] [address] [address]DrKim Wayne Hemoglobin (Bld) [Mass/Vol] 12.4 g/dL Normal 12.0-16.0 [facility] Comment on above: Result Comment: RECE IVING BOLUS AND SALINE Performed By: #### C BC ####[facility] L[address] [place], [place] [address]DrKim Wayne IG # 0.01 10e3/ul Normal 0.00-0.03 [facility] Comment on above: Performed By: #### C BC ####[facility] [address] [place], [place] [address]DrKim Wayne IG % 0.2 % Normal 0.0-0.5 [facility] Comment on above: Performed By: #### C BC ####[facility] [address] [place], [place] [address]DrKim Wayne LYMPH # 1.9 103/ul Normal 1.2-3.8 [facility] Comment on above: Performed By: #### C BC ####[facility] [address] [place], [place] [address]DrKim Wayne Lymphocytes/100 WBC (Bld) 35.0 % Normal 20.5-60.0 [facility] Comment on above: Performed By: #### C BC ####[facility] [address] [place], [place] [address]DrKim Wayne MANUAL DIFF REQ NO Normal [facility] Comment on above: Performed By: #### C BC ####[facility] Jacnzcjpyi[address] [place], [place] [address]DrKim Wayne MCH (RBC) [Entitic mass] 30.2 pg Normal 26.7-34.0 [facility] Comment on above: Performed By: #### C BC ####[facility] Amywsmyzwu[address] [place], [place] [address]DrKim Wayne MCHC (RBC) [Mass/Vol] 32.0 g/dL Normal 29.9-35.2 [facility] Comment on above: Performed By: #### C BC ####[facility] [address] [id number]. Lawrence Wayne MCV (RBC) [Entitic vol] 94.2 fL Normal 81.0-99.0 [facility] Comment on above: Performed By: #### C BC ####[facility] [address] [place], [place] [address]DrKim Wayne MONO # 0.6 103/ul Normal 0.3-0.8 [facility] Comment on above: Performed By: #### C BC ####[facility] Zwq[address]hns[address] [place], [place] [address]Dr. Lawrence Wayne Monocytes/100 WBC (Bld) 10.7 % Normal 1.7-12.0 [facility] Comment on above: Performed By: #### C BC ####[facility] Leviutzbvv[address] [place], [place] [address]Dr. Lawrence Wayne NEUT # 2.9 103/ul Normal 1.4-6.5 [facility] Comment on above: Performed By: #### C BC ####[facility] [address] [place], [place] [address]DrKim Wayne Neutrophils/100 WBC (Bld) 52.1 % Normal 43.0-75.0 [facility] Comment on above: Performed By: #### C BC ####[facility] [address] [place], [place] [address]Dr. Lawrence Wayne Platelet mean volume (Bld) [Entitic vol] 9.5 fL Normal 9.5-13.5 [facility] Comment on above: Performed By: #### C BC ####[facility] [address] [place], [place] [address]Dr. Lawrence Wayne PLT 260 103/ul Normal 150-450 [facility] Comment on above: Performed By: #### C BC ####[facility] [address]ak[address]urfs[address] [place], [place] [address]Dr. Lawrence Wayne RBC 4.11 106/ul Critically low 4.20-5.40 [facility] Comment on above: Performed By: #### C BC ####[facility] [address] [id number]. Lawrence Wayne WBC 5.5 103/ul Normal 4.0-11.0 [facility] Comment on above: Performed By: #### C BC ####[facility] [address] [address]Dr. Lawrence Wayne PROF 14(COMP METB)on 022 Albumin [Mass/Vol] 3.0 g/dL Critically low 3.4-5.0 [facility] Comment on above: Performed By: #### A MY, CMP, LIPA #### [facility] [address] [address] [address] Lawrence Wayne Albumin/Globulin [Mass ratio] 1.1 {ratio} Normal [facility] Comment on above: Performed By: #### A MY, CMP, LIPA #### [facility] [address] [address] [address] Lawrence Wayne ALP [Catalytic activity/Vol] 77 U/L Normal 46-116 [facility] Comment on above: Performed By: #### A MY, CMP, LIPA #### [facility] [address] [address] [address] Lawrence Wayne ALT [Catalytic activity/Vol] 21 U/L Normal 14-59 [facility] Comment on above: Performed By: #### A MY, CMP, LIPA #### [facility] [address] [address] [address] Lawrence Wayne Anion gap [Moles/Vol] 10.9 mmol/L Normal [facility] Comment on above: Performed By: #### A MY, CMP, LIPA #### [facility] [address] [address] [address] Lawrence Wayne AST [Catalytic activity/Vol] 15 U/L Normal 15-37 [facility] Comment on above: Performed By: #### A MY, CMP, LIPA #### [facility] [address] [address] [address] Lawrence Wayne Bilirubin [Mass/Vol] 0.3 mg/dL Normal 0.2-1.0 [facility] Comment on above: Performed By: #### A MY, CMP, LIPA #### [facility] [address] [address] [address] Lawrence Wayne Calcium [Mass/Vol] 8.4 mg/dL Critically low 8.5-10.1 [facility] Comment on above: Performed By: #### A MY, CMP, LIPA #### [facility] [address] [address] [address] Lawrence Wayne Chloride [Moles/Vol] 110 mmol/L Critically high 98-107 [facility] Comment on above: Performed By: #### A MY, CMP, LIPA #### [facility] [address] [place] [address] Dr. Lawrence Wayne CO2 [Moles/Vol] 25.0 mmol/L Normal 21.0-32.0 [facility] Comment on above: Performed By: #### A MY, CMP, LIPA #### [facility] [address] [address] [address] Lawrence Wayne Creatinine [Mass/Vol] 0.87 mg/dL Normal 0.55-1.02 [facility] Comment on above: Performed By: #### A MY, CMP, LIPA #### [facility] [address] [place] [address] Dr. Lawrence Wayne EGFR-AF AUSTRALIAN >60 Normal >=60 [facility] Comment on above: Performed By: #### A MY, CMP, LIPA #### [facility] [address] [place] [address] Dr. Lawrence Wayne EGFR-NON AF AUSTRALIAN >60 Normal >=60 [facility] Comment on above: Performed By: #### A MY, CMP, LIPA #### [facility] [address] [place] [address] Dr. Lawrence Wayne Globulin (S) [Mass/Vol] 2.8 g/dL Normal [facility] Comment on above: Performed By: #### A MY, CMP, LIPA #### [facility] [address] [address] [address] Lawrence Wayne Glucose [Mass/Vol] 96 mg/dL Normal 74-106 [facility] Comment on above: Performed By: #### A MY, CMP, LIPA #### [facility] [address] [place] [address] Dr. Lawrence Wayne Potassium [Moles/Vol] 3.9 mmol/L Normal 3.5-5.1 [facility] Comment on above: Performed By: #### A MY, CMP, LIPA #### [facility] [address] [place] [address] Dr. Lawrence Wayne Protein [Mass/Vol] 5.8 g/dL Critically low 6.4-8.2 [facility] Comment on above: Performed By: #### A MY, CMP, LIPA #### [facility] [address] [place] [address] Dr. Lawrence Wayne Sodium [Moles/Vol] 142 mmol/L Normal 136-145 [facility] Comment on above: Performed By: #### A MY, CMP, LIPA #### [facility] [address] [place] [address] Dr. Lawrence Wayne Urea nitrogen [Mass/Vol] 11.0 mg/dL Normal 7.0-18.0 [facility] Comment on above: Performed By: #### A MY, CMP, LIPA #### [facility] [address] [place] [address] Dr. Lawrence Wayne Urea nitrogen/Creatini ne [Mass ratio] 12.6 mg/mg Normal [facility] Comment on above: Performed By: #### A MY, CMP, LIPA #### [facility] [address] [place] [address] Dr. Lawrence Wayne AMMONIAon 02-06-2022 Ammonia (P) [Moles/Vol] 44 umol/L Critically high 11-32 [facility] Comment on above: Performed By: #### A MY, CMP, LIPA #### [facility] [address] [address] [address] Lawrence Wayne AMYLASEon 02-06-2022 Amylase [Catalytic activity/Vol] 89 U/L Normal 25-115 [facility] Comment on above: Performed By: #### M G, CMP, CMADM, BNP, ALIYAH, LIPA #### [facility] [address] [address] [address] Lawrence Wayne BNPon 02-06-2022 Natriuretic peptide B (Bld) [Mass/Vol] 103.0 pg/mL Normal <=900.0 [facility] Comment on above: Performed By: #### M G, CMP, CMADM, BNP, ALIYAH, LIPA ####[facility] [address] [address]Dr. Lawrence Wayne CARDIAC ORAL ADMITon 022 CK [Catalytic activity/Vol] 65 U/L Normal 26-192 [facility] Comment on above: Performed By: #### M G, CMP, CMADM, BNP, ALIYAH, LIPA #### [facility] [address] [address] [address] Lawrence Wayne CK.MB [Mass/Vol] 1.16 ng/mL Normal <=3.60 [facility] Comment on above: Performed By: #### M G, CMP, CMADM, BNP, ALIYAH, LIPA #### [facility] [address] [address] [address] Lawrence Wayne HSTROP <4.0 Normal 4.0-51.3 [facility] Comment on above: Result Comment: CUT- OFF POINTS HAVE BEEN ESTABLISHED BASED ON THE FOURTH UNIVERSAL DEFINITIONS OF MYOCARDIAL INFARCTION. THE UPPER REFERENCE LIMIT (URL) OF TROPONIN, DEFINED THE 99TH PERCENTILE OF cTnI DISTRIBUTION IN A REFERENCE POPULATION, HAS BEEN CONFIRMED THE DECISION THRESHOLD FOR [place] DIAGNOSIS. Performed By: #### M G, CMP, CMADM, BNP, ALIYAH, LIPA #### [facility] [address] [address] [address] Lawernce Wayne GEORGI 47 ng/mL Normal 9-82 [facility] Comment on above: Performed By: #### M G, CMP, CMADM, BNP, ALIYAH, LIPA #### [facility] [address] [address] [address] Wayne CBC AUTO DIFFon 02-06-2022 BASO # 0.1 103/ul Normal 0.0-0.1 [facility] Comment on above: Performed By: #### C BC ####[facility] [address] [id number] Wayne Basophils/100 WBC (Bld) 0.7 % Normal 0.2-2.0 [facility] Comment on above: Performed By: #### C BC ####[facility] [address] [address]DrKim Wayne EO # 0.1 103/ul Normal 0.0-0.7 [facility] Comment on above: Performed By: #### C BC ####[facility] [address] [address]DrKim Wayne Eosinophils/100 WBC (Bld) 1.1 % Normal 0.9-7.0 [facility] Comment on above: Performed By: #### C BC ####[facility] [address] [place], [place] [address]DrKim Wayne Erythrocyte distribution width (RBC) [Ratio] 12.6 % Normal 11.0-15.0 [facility] Comment on above: Performed By: #### C BC ####[facility] [address] [place], [place] [address]DrKim Wayne Hematocrit (Bld) [Volume fraction] 44.3 % Normal 36.0-48.0 [facility] Comment on above: Performed By: #### C BC ####[facility] [address] [place], [place] [address]DrKim Wayne Hemoglobin (Bld) [Mass/Vol] 14.4 g/dL Normal 12.0-16.0 [facility] Comment on above: Performed By: #### C BC ####[facility] [address] [place], [place] [address]DrKim Wayne IG # 0.01 10e3/ul Normal 0.00-0.03 [facility] Comment on above: Performed By: #### C BC ####[facility] [address] [id number]. Laraantonio Wayne IG % 0.1 % Normal 0.0-0.5 [facility] Comment on above: Performed By: #### C BC ####[facility] [address] [address]Dr. Lawrence Wayne LYMPH # 2.1 103/ul Normal 1.2-3.8 [facility] Comment on above: Performed By: #### C BC ####[facility] [address] [place], [place] [address]Dr. Laraantonio Wayne Lymphocytes/100 WBC (Bld) 29.6 % Normal 20.5-60.0 [facility] Comment on above: Performed By: #### C BC ####[facility] [address] [place], [place] [address]Dr. Laraantonio Wayne MANUAL DIFF REQ NO Normal [facility] Comment on above: Performed By: #### C BC ####[facility] [address] [place], [place] [address]Dr. Lawrence Tone MCH (RBC) [Entitic mass] 30.4 pg Normal 26.7-34.0 [facility] Comment on above: Performed By: #### C BC ####[facility] [address] [place], [place] [address]Dr. Lawrence Wayne MCHC (RBC) [Mass/Vol] 32.5 g/dL Normal 29.9-35.2 [facility] Comment on above: Performed By: #### C BC ####[facility] [address] [place], [place] [address]Dr. Lawrence Wayne MCV (RBC) [Entitic vol] 93.7 fL Normal 81.0-99.0 [facility] Comment on above: Performed By: #### C BC ####[facility] [address] [place], [place] [address]Dr. Lawrence Wayne MONO # 0.8 103/ul Normal 0.3-0.8 [facility] Comment on above: Performed By: #### C BC ####[facility] [address] [id number]. Lawrence Wayne Monocytes/100 WBC (Bld) 10.6 % Normal 1.7-12.0 [facility] Comment on above: Performed By: #### C BC ####[facility] [address] [id number]. Lawrence Wayne NEUT # 4.1 103/ul Normal 1.4-6.5 [facility] Comment on above: Performed By: #### C BC ####[facility] [address] [id number]. Lawrence Wayne Neutrophils/100 WBC (Bld) 57.9 % Normal 43.0-75.0 [facility] Comment on above: Performed By: #### C BC ####[facility] [address] [address]Dr. Lawrence Wayne Platelet mean volume (Bld) [Entitic vol] 9.3 fL Critically low 9.5-13.5 [facility] Comment on above: Performed By: #### C BC ####[facility] [address] [id number]. Lawrence Wayne PLT 294 103/ul Normal 150-450 [facility] Comment on above: Performed By: #### C BC ####[facility] [address] [id number]. Lawrence Wayne RBC 4.73 106/ul Normal 4.20-5.40 [facility] Comment on above: Performed By: #### C BC ####[facility] [address] [place], [place] [address]Dr. Lawrence Wayne WBC 7.1 103/ul Normal 4.0-11.0 [facility] Comment on above: Performed By: #### C BC ####[facility] [address] [id number]. Lawrence Wayne CULTURE BLOODon 02-06-2022 Microscopic examination of blood, culture Culture Observations: NO GROWTH AT 5 DAYS. Normal [facility] Comment on above: Performed By: #### B LDCX2 ####[facility] [address] [place], [place] [address]Vu. Lawrence Wayne Microscopic examination of blood, culture Culture Observations: NO GROWTH AT 5 DAYS. Normal [facility] Comment on above: Performed By: #### B LDCX1 ####[facility] [address] [place], [place] [address]Uq. Lawrence Wayne CULTURE URINEon 02-06-2022 CULTURE URINE Culture Observations : NO GROWTH. Normal [facility] Comment on above: Performed By: #### U RCX ####[facility] [address] [id number]. Lawrence Wayne Covid-19 PCR (CVDTBH)on 01-14 SARS-CoV-2 (COVID-19) RNA EVELIA+probe Ql (Unsp spec) Not detected Normal NOT DETECTED [facility] Comment on above: Result Comment: When diagnostic [...] for this test is supported by the [place] of [employer] and [employer]'s declaration that [...] be used). Performed By: #### C VDTBH ####[facility] Yovbwpoqzl[address] [place] [id number]. Lawrence Wayne LACTATE/LACTIC ACIDon 2021 Lactate [Moles/Vol] 1.1 mmol/L Normal 0.4-1.9 [facility] Comment on above: Performed By: #### A MY, CMP, LIPA #### [facility] [address] [address] [address] Lawrence Wayne LIPASEon 02-06-2022 Lipase [Catalytic activity/Vol] 107.0 U/L Normal 73.0-393.0 [facility] Comment on above: Performed By: #### M G, CMP, CMADM, BNP, ALIYAH, LIPA #### [facility] [address] [address] [address] Lawrence Wayne MAGNESIUMon 02-06-2022 Magnesium [Mass/Vol] 2.3 mg/dL Normal 1.8-2.4 [facility] Comment on above: Performed By: #### M G, CMP, CMADM, BNP, ALIYAH, LIPA ####[facility] [address] [place] [address]Dr. Lawrence Wayne PROF 14(COMP METB)on 022 Albumin [Mass/Vol] 3.8 g/dL Normal 3.4-5.0 [facility] Comment on above: Performed By: #### M G, CMP, CMADM, BNP, ALIYAH, LIPA #### [facility] [address] [address] [address] Lawrence Wayne Albumin/Globulin [Mass ratio] 1.1 {ratio} Normal [facility] Comment on above: Performed By: #### M G, CMP, CMADM, BNP, ALIYAH, LIPA #### [facility] [address] [address] [address] Lawrence Wayne ALP [Catalytic activity/Vol] 98 U/L Normal 46-116 [facility] Comment on above: Performed By: #### M G, CMP, CMADM, BNP, ALIYAH, LIPA #### [facility] [address] [address] [address] Lawrence Wayne ALT [Catalytic activity/Vol] 26 U/L Normal 14-59 [facility] Comment on above: Performed By: #### M G, CMP, CMADM, BNP, ALIYAH, LIPA #### [facility] [address] [address] [address] Lawrence Wayne Anion gap [Moles/Vol] 12.9 mmol/L Normal [facility] Comment on above: Performed By: #### M G, CMP, CMADM, BNP, ALIYAH, LIPA #### [facility] [address] [place] [address] Dr. Lawrence Wayne AST [Catalytic activity/Vol] 25 U/L Normal 15-37 [facility] Comment on above: Performed By: #### M G, CMP, CMADM, BNP, ALIYAH, LIPA #### [facility] [address] [place] [address] Dr. Lawrence Wayne Bilirubin [Mass/Vol] 0.3 mg/dL Normal 0.2-1.0 [facility] Comment on above: Performed By: #### M G, CMP, CMADM, BNP, ALIYAH, LIPA #### [facility] [address] [place] [address] Dr. Lawrence Wayne Calcium [Mass/Vol] 9.1 mg/dL Normal 8.5-10.1 [facility] Comment on above: Performed By: #### M G, CMP, CMADM, BNP, ALIYAH, LIPA #### [facility] [address] [place] [address] Dr. Lawrence Wayne Chloride [Moles/Vol] 105 mmol/L Normal 98-107 [facility] Comment on above: Performed By: #### M G, CMP, CMADM, BNP, ALIYAH, LIPA #### [facility] [address] [place] [address] Dr. Lawrence Wayne CO2 [Moles/Vol] 24.0 mmol/L Normal 21.0-32.0 [facility] Comment on above: Performed By: #### M G, CMP, CMADM, BNP, ALIYAH, LIPA #### [facility] [address] [place] [address] Dr. Lawrence Wayne Creatinine [Mass/Vol] 0.90 mg/dL Normal 0.55-1.02 [facility] Comment on above: Performed By: #### M G, CMP, CMADM, BNP, ALIYAH, LIPA #### [facility] [address] [place] [address] Dr. Lawrence Wayne EGFR-AF AUSTRALIAN >60 Normal >=60 [facility] Comment on above: Performed By: #### M G, CMP, CMADM, BNP, ALIYAH, LIPA #### [facility] [address] [address] [address] Lawrence Wayne EGFR-NON AF AUSTRALIAN >60 Normal >=60 [facility] Comment on above: Performed By: #### M G, CMP, CMADM, BNP, ALIYAH, LIPA #### [facility] [address] [address] [address] Lawrence Wayne Globulin (S) [Mass/Vol] 3.5 g/dL Normal [facility] Comment on above: Performed By: #### M G, CMP, CMADM, BNP, ALIYAH, LIPA #### [facility] [address] [address] [address] Lawrence Wayne Glucose [Mass/Vol] 95 mg/dL Normal 74-106 [facility] Comment on above: Performed By: #### M G, CMP, CMADM, BNP, ALIYAH, LIPA #### [facility] [address] [address] [address] Lawrence Wayne Potassium [Moles/Vol] 3.9 mmol/L Normal 3.5-5.1 [facility] Comment on above: Performed By: #### M G, CMP, CMADM, BNP, ALIYAH, LIPA #### [facility] [address] [address] [address] Lawrence Wayne Protein [Mass/Vol] 7.3 g/dL Normal 6.4-8.2 [facility] Comment on above: Performed By: #### M G, CMP, CMADM, BNP, ALIYAH, LIPA #### [facility] [address] [address] [address] Lawrence Wayne Sodium [Moles/Vol] 138 mmol/L Normal 136-145 [facility] Comment on above: Performed By: #### M G, CMP, CMADM, BNP, ALIYAH, LIPA #### [facility] [address] [address] [address] Lawrence Wayne Urea nitrogen [Mass/Vol] 12.0 mg/dL Normal 7.0-18.0 [facility] Comment on above: Performed By: #### M G, CMP, CMADM, BNP, ALIYAH, LIPA #### [facility] [address] [place] [address] Dr. Lawrence Wayne Urea nitrogen/Creatini ne [Mass ratio] 13.3 mg/mg Normal [facility] Comment on above: Performed By: #### M G, CMP, CMADM, BNP, ALIYAH, LIPA #### [facility] [address] [place] [address] Dr. Lawrence Wayne UA RANDOM W/MICROSCOPICon BACTERIA NONE SEEN Normal NONE SEEN [facility] Comment on above: Performed By: #### A MY, CMP, LIPA #### [facility] [address] [place] [address] Dr. Lawrence Wayne Bilirubin Ql (U) Negative Normal NEGATIVE [facility] Comment on above: Performed By: #### A MY, CMP, LIPA #### [facility] [address] [place] [address] Dr. Lawrence Wayne CAST NONE SEEN Normal NONE SEEN [facility] Comment on above: Performed By: #### A MY, CMP, LIPA #### [facility] [address] [place] [address] Dr. Lawrence Wayne Clarity (U) CLEAR Normal CLEAR [facility] Comment on above: Performed By: #### A MY, CMP, LIPA #### [facility] [address] [place] [address] Dr. Lawrence Wayne Color (U) LT. YELLOW Normal YELLOW [facility] Comment on above: Performed By: #### A MY, CMP, LIPA #### [facility] [address] [place] [address] Dr. Lwarence Wayne Crystals LM Nom (Urine sed) NONE SEEN Normal NONE SEEN [facility] Comment on above: Performed By: #### A MY, CMP, LIPA #### [facility] [address] [place] [address] Dr. Lawrence Wayne Epithelial cells LM Ql (Urine sed) FEW Abnormal NONE SEEN /RARE [facility] Comment on above: Performed By: #### A MY, CMP, LIPA #### [facility] [address] [address] [address] Lawrence Wayne Glucose Ql (U) Negative Normal NEGATIVE [facility] Comment on above: Performed By: #### A MY, CMP, LIPA #### [facility] [address] [address] [address] Lawrence Wayne Hemoglobin Ql (U) Negative Normal NEGATIVE [facility] Comment on above: Performed By: #### A MY, CMP, LIPA #### [facility] [address] [address] [address] Lawrence Wayne Ketones Ql (U) Negative Normal NEGATIVE [facility] Comment on above: Performed By: #### A MY, CMP, LIPA #### [facility] [address] [place] [address] Dr. Lawrence Wayne LEUKOCYTES SMALL Abnormal NEGATIVE [facility] Comment on above: Performed By: #### A MY, CMP, LIPA #### [facility] [address] [place] [address] Dr. Lawrence Wayne MUCOUS NONE SEEN Normal NONE SEEN [facility] Comment on above: Performed By: #### A MY, CMP, LIPA #### [facility] [address] [place] [address] Dr. Lawrence Wayne Nitrite Ql (U) Negative Normal NEGATIVE [facility] Comment on above: Performed By: #### A MY, CMP, LIPA #### [facility] [address] [address] [address] Lawrence Wayne pH (U) 6.0 [pH] Normal 5-9 [facility] Comment on above: Performed By: #### A MY, CMP, LIPA #### [facility] [address] [place] [address] Dr. Lawrence Wayne RBC NONE SEEN Abnormal 0-2 [facility] Comment on above: Performed By: #### A MY, CMP, LIPA #### [facility] [address] [place] [address] Dr. Lawrence Wayne SPEC GRAVITY <=1.005 Abnormal 1.005-<=1. 025 [facility] Comment on above: Performed By: #### A MY, CMP, LIPA #### [facility] [address] [address] [address] Lawrence Wayne UA PROTEIN Negative Normal NEGATIVE/ TRACE [facility] Comment on above: Performed By: #### A MY, CMP, LIPA #### [facility] [address] [address] [address] Lawrence Wayne Urobilinogen Qn (U) 0.2 {Antonina'U}/dL Normal 0.2 - 1.0 [facility] Comment on above: Performed By: #### A MY, CMP, LIPA #### [facility] [address] [place] [address] Dr. Lawrence Wayne WBC 0-2 Abnormal NONE SEEN [facility] Comment on above: Performed By: #### A MY, CMP, LIPA #### [facility] [address] [place] [address] Dr. Lawrence Wayne YEAST PRESENT Abnormal NONE SEEN [facility] Comment on above: Performed By: #### A MY, CMP, LIPA #### [facility] [address] [place] [address] Dr. Lawrence Wayne XR ABD FLAT UP_PA [...] by: TYRELL MOREJON Date: 2022-02-06 16:08 Normal [facility] CTA CHEST WO W CONon 022 [...] by: MARK RASHEED Date: 2021-08-29 12:20 Normal [facility] XR ABD FLAT_UPon 08-27-2021 XR ABD FLAT_UP [...] by: ENEDELIA FOLEY Date: 2021-08-27 16:08 Normal [facility] BNPon 08-21-2021 Natriuretic peptide B (Bld) [Mass/Vol] 51.0 pg/mL Normal <=900.0 [facility] Comment on above: Performed By: #### A MY, CMP, LIPA #### [facility] [address] [place] [address] Dr. Lawrence Wayne CBC AUTO DIFFon 08-21-2021 BASO # 0.0 103/ul Normal 0.0-0.1 [facility] Comment on above: Performed By: #### A MY, CMP, LIPA #### [facility] [address] [place] [address] Dr. Lawrence Wayne Basophils/100 WBC (Bld) 0.2 % Normal 0.2-2.0 [facility] Comment on above: Performed By: #### A MY, CMP, LIPA #### [facility] [address] [place] [address] Dr. Lawrence Wayne EO # 0.0 103/ul Normal 0.0-0.7 [facility] Comment on above: Performed By: #### A MY, CMP, LIPA #### [facility] [address] [place] [address] Dr. Lawrence Wayne Eosinophils/100 WBC (Bld) 0.1 % Critically low 0.9-7.0 [facility] Comment on above: Performed By: #### A MY, CMP, LIPA #### [facility] [address] [place] [address] Dr. Lawrence Wayne Erythrocyte distribution width (RBC) [Ratio] 13.3 % Normal 11.0-15.0 [facility] Comment on above: Performed By: #### A MY, CMP, LIPA #### [facility] [address] [place] [address] Dr. Lawrence Wayne Hematocrit (Bld) [Volume fraction] 45.7 % Normal 36.0-48.0 [facility] Comment on above: Performed By: #### A MY, CMP, LIPA #### [facility] [address] [place] [address] Dr. Lawrence Wayne Hemoglobin (Bld) [Mass/Vol] 15.3 g/dL Normal 12.0-16.0 [facility] Comment on above: Performed By: #### A MY, CMP, LIPA #### [facility] [address] [address] [address] Lawrence Wayne IG # 0.12 10e3/ul Critically high 0.00-0.03 [facility] Comment on above: Performed By: #### A MY, CMP, LIPA #### [facility] [address] [place] [address] Dr. Lawrence Wayne IG % 0.9 % Critically high 0.0-0.5 [facility] Comment on above: Performed By: #### A MY, CMP, LIPA #### [facility] [address] [place] [address] Dr. Lawrence Wayne LYMPH # 1.6 103/ul Normal 1.2-3.8 [facility] Comment on above: Performed By: #### A MY, CMP, LIPA #### [facility] [address] [place] [address] Dr. Lawrence Wayne Lymphocytes/100 WBC (Bld) 11.9 % Critically low 20.5-60.0 [facility] Comment on above: Performed By: #### A MY, CMP, LIPA #### [facility] [address] [place] [address] Dr. Lawrence Wayne MANUAL DIFF REQ NO Normal [facility] Comment on above: Performed By: #### A MY, CMP, LIPA #### [facility] [address] [place] [address] Dr. Lawrence Wayne MCH (RBC) [Entitic mass] 30.2 pg Normal 26.7-34.0 [facility] Comment on above: Performed By: #### A MY, CMP, LIPA #### [facility] [address] [place] [address] Dr. Lawrence Wayne MCHC (RBC) [Mass/Vol] 33.5 g/dL Normal 29.9-35.2 [facility] Comment on above: Performed By: #### A MY, CMP, LIPA #### [facility] [address] [place] [address] Dr. Lawrence Wayne MCV (RBC) [Entitic vol] 90.1 fL Normal 81.0-99.0 [facility] Comment on above: Performed By: #### A MY, CMP, LIPA #### [facility] [address] [place] [address] Dr. Lawrence Wayne MONO # 1.0 103/ul Critically high 0.3-0.8 [facility] Comment on above: Performed By: #### A MY, CMP, LIPA #### [facility] [address] [place] [address] Dr. Lawrence Wayne Monocytes/100 WBC (Bld) 7.2 % Normal 1.7-12.0 [facility] Comment on above: Performed By: #### A MY, CMP, LIPA #### [facility] [address] [place] [address] Dr. Lawrence Wayne NEUT # 11.0 103/ul Critically high 1.4-6.5 [facility] Comment on above: Performed By: #### A MY, CMP, LIPA #### [facility] [address] [place] [address] Dr. Lawrence Wayne Neutrophils/100 WBC (Bld) 79.7 % Critically high 43.0-75.0 [facility] Comment on above: Performed By: #### A MY, CMP, LIPA #### [facility] [address] [place] [address] Dr. Lawrence Wayne Platelet mean volume (Bld) [Entitic vol] 9.1 fL Critically low 9.5-13.5 [facility] Comment on above: Performed By: #### A MY, CMP, LIPA #### [facility] [address] [place] [address] Dr. Lawrence Wayne PLT 434 103/ul Normal 150-450 [facility] Comment on above: Performed By: #### A MY, CMP, LIPA #### [facility] [address] [place] [address] Dr. Lawrence Wayne RBC 5.07 106/ul Normal 4.20-5.40 [facility] Comment on above: Performed By: #### A MY, CMP, LIPA #### [facility] [address] [address] [address] Lawrence Wayne WBC 13.8 103/ul Critically high 4.0-11.0 [facility] Comment on above: Performed By: #### A MY, CMP, LIPA #### [facility] [address] [address] [address] Lawrence Wayne PROF 14(COMP METB)on 022 Albumin [Mass/Vol] 3.9 g/dL Normal 3.5-5.0 [facility] Comment on above: Performed By: #### A MY, CMP, LIPA #### [facility] [address] [address] [address] Lawrence Wayne Albumin/Globulin [Mass ratio] 1.0 {ratio} Normal [facility] Comment on above: Performed By: #### A MY, CMP, LIPA #### [facility] [address] [address] [address] Lawrence Wayne ALP [Catalytic activity/Vol] 104 U/L Normal 38-126 [facility] Comment on above: Performed By: #### A MY, CMP, LIPA #### [facility] [address] [address] [address] Lawrence Wayne ALT [Catalytic activity/Vol] 20 U/L Normal 9-52 [facility] Comment on above: Performed By: #### A MY, CMP, LIPA #### [facility] [address] [address] [address] Lawrence Wayne Anion gap [Moles/Vol] 15.5 mmol/L Normal [facility] Comment on above: Performed By: #### A MY, CMP, LIPA #### [facility] [address] [address] [address] Lawrence Wayne AST [Catalytic activity/Vol] 13 U/L Critically low 14-36 [facility] Comment on above: Performed By: #### A MY, CMP, LIPA #### [facility] [address] [address] [address] Lawrence Wayne Bilirubin [Mass/Vol] 0.4 mg/dL Normal 0.2-1.3 [facility] Comment on above: Performed By: #### A MY, CMP, LIPA #### [facility] [address] [place] [address] Dr. Lawrence Wayne Calcium [Mass/Vol] 9.4 mg/dL Normal 8.4-10.2 [facility] Comment on above: Performed By: #### A MY, CMP, LIPA #### [facility] [address] [place] [address] Dr. Lawrence Wayne Chloride [Moles/Vol] 100 mmol/L Normal 98-107 [facility] Comment on above: Performed By: #### A MY, CMP, LIPA #### [facility] [address] [place] [address] Dr. Lawrence Wayne CO2 [Moles/Vol] 23.9 mmol/L Normal 22.0-30.0 [facility] Comment on above: Performed By: #### A MY, CMP, LIPA #### [facility] [address] [place] [address] Dr. Lawrence Wayne Creatinine [Mass/Vol] 0.97 mg/dL Normal 0.52-1.04 [facility] Comment on above: Performed By: #### A MY, CMP, LIPA #### [facility] [address] [place] [address] Dr. Lawrence Wayne EGFR-AF AUSTRALIAN >60 Normal >=60 [facility] Comment on above: Performed By: #### A MY, CMP, LIPA #### [facility] [address] [place] [address] Dr. Lawrence Wayne EGFR-NON AF AUSTRALIAN 58 mL/min/1.73m2 Critically low >=60 [facility] Comment on above: Performed By: #### A MY, CMP, LIPA #### [facility] [address] [place] [address] Dr. Lawrence Wayne Globulin (S) [Mass/Vol] 3.8 g/dL Normal [facility] Comment on above: Performed By: #### A MY, CMP, LIPA #### [facility] [address] [address] [address] Lawrence Wayne Glucose [Mass/Vol] 169 mg/dL Critically high 74-106 [facility] Comment on above: Performed By: #### A MY, CMP, LIPA #### [facility] [address] [address] [address] Lawrence Wayne Potassium [Moles/Vol] 3.4 mmol/L Normal 3.4-5.0 [facility] Comment on above: Performed By: #### A MY, CMP, LIPA #### [facility] [address] [address] [address] Lawrence Wayne Protein [Mass/Vol] 7.7 g/dL Normal 6.1-8.2 [facility] Comment on above: Performed By: #### A MY, CMP, LIPA #### [facility] [address] [address] [address] Lawrence Wayne Sodium [Moles/Vol] 136 mmol/L Critically low 137-145 [facility] Comment on above: Performed By: #### A MY, CMP, LIPA #### [facility] [address] [address] [address] Lawrence Wayne Urea nitrogen [Mass/Vol] 16.0 mg/dL Normal 7.0-17.0 [facility] Comment on above: Performed By: #### A MY, CMP, LIPA #### [facility] [address] [address] [address] Lawrence Wayne Urea nitrogen/Creatini ne [Mass ratio] 16.5 mg/mg Normal [facility] Comment on above: Performed By: #### A MY, CMP, LIPA #### [facility] [address] [address] [address] Lawrence Wayne AMIRA by IFAon 08-12-2021 Antinuclear Antibodies, IFA Positive Abnormal [facility] Comment on above: Result Comment: Nega tive <1:80 Borderline 1:80 Positive >1:80 Performed By: #### A NAIFA ####[facility] [address] [place] [address]Dr. Lawrence Wayne Centriole Pattern Normal [facility] Comment on above: Performed By: #### A NAIFA ####[facility] [address] [place] [address]Dr. Lawrence Wayne Centromere Pattern Normal [facility] Comment on above: Performed By: #### A NAIFA ####[facility] [address] [place] [address]Dr. Lawrence Wayne Homogeneous Pattern Normal [facility] Comment on above: Performed By: #### A NAIFA ####[facility] [address] [place] [address]Dr. Lawrence Wayne Midbody Pattern Normal [facility] Comment on above: Performed By: #### A NAIFA ####[facility] [address] [place] [address]Dr. Lawrence Wayne Note: Comment Normal [facility] Comment on above: Result Comment: For more [...] titers Nucleosomes, Histones Drug-induced SLE Speckled Sm, FUEL CELL ENGINEER, SCL-70, SLE,MCTD,PSS (diffuse form), SS-A/SS-B Sjogrens Nucleolar SCL-70, PM-1/SCL High titers Scleroderma, PM/DM Centromere Centromere PSS (limited form) w/Crest syndrome variable Nuclear Dot [id number] Primary Biliary Cirrhosis Nuclear GP210, Primary Biliary Cirrhosis Membrane hamilton A,B,C Performed By: #### A MICHELLE ####[facility] [address] [place], [place] [address]Dr. Lawrence Wayne Nuclear Dot Pattern Normal [facility] Comment on above: Performed By: #### A MICHELLE ####[facility] [address] [place], [place] [address]DrKim Wayne Nuclear Membrane Pattern Normal [facility] Comment on above: Performed By: #### A MICHELLE ####[facility] [address] [place], [place] [address]DrKim Wayne Nucleolar Pattern Normal [facility] Comment on above: Performed By: #### A MICHELLE ####[facility] [address] [place] [address]Dr. Lawrence Wayne PCNA Pattern Normal [facility] Comment on above: Performed By: #### A NAIFA ####[facility] [address] [place] [address]Dr. Lawrence Wayne Speckled Pattern 1:160 Critically high [facility] Comment on above: Result Comment: ICAP nomenclature: AC-2,4,5,29 Performed By: #### A NAIFA ####[facility] [address] [place] [address]Dr. Lawrence Wayne Spindle Apparatus Pattern Normal [facility] Comment on above: Performed By: #### A NAIFA ####[facility] [address] [place] [address]Dr. Lawrence Wayne AMIRA DIRECTon 08-11-2021 AMIRA Direct Positive Abnormal Negative [facility] Comment on above: Performed By: #### A NAD ####[facility] [id number] [address]Dr. Lawrence Wayne SLE PROFILE Aon 08-11-2021 Anti-DNA (DS) Ab Qn 1 IU/mL Normal 0-9 [facility] Comment on above: Result Comment: Nega tive <5 Equivocal 5 - 9 Positive >9 Performed By: #### A MY, CMP, LIPA #### [facility] [address] [address] [address] Lawrence Wayne Antichromatin Antibodies <0.2 Normal 0.0-0.9 [facility] Comment on above: Performed By: #### A MY, CMP, LIPA #### [facility] [address] [address] [address] Lawrence Wayne RA Latex Turbid. <10.0 Normal <14.0 [facility] Comment on above: Performed By: #### A MY, CMP, LIPA #### [facility] [address] [address] [address] Lawrence Wayne FUEL CELL ENGINEER Antibodies <0.2 Normal 0.0-0.9 [facility] Comment on above: Performed By: #### A MY, CMP, LIPA #### [facility] [address] [place] [address] Dr. Lawrence Wayne Sjogren'joey Anti-SS-A 1.4 AI Critically high 0.0-0.9 [facility] Comment on above: Performed By: #### A MY, CMP, LIPA #### [facility] [address] [place] [address] Dr. Lawrence Garciaogrvidal's Anti-SS-B <0.2 Normal 0.0-0.9 [facility] Comment on above: Performed By: #### A MY, CMP, LIPA #### [facility] [address] [place] [address] Dr. Lawrence Wayne Ramos Antibodies <0.2 Normal 0.0-0.9 [facility] Comment on above: Performed By: #### A MY, CMP, LIPA #### [facility] [address] [place] [address] Dr. Lawrence Wayne ANTISTREPTOLYSIN O AB (ASO)o n 08-10-2021 Antistreptolysin O Ab 55.6 IU/mL Normal 0.0-200.0 [facility] Comment on above: Performed By: #### A MY, CMP, LIPA #### [facility] [address] [place] [address] Dr. Lawrence Wayne C3 and C4 COMPLEMENTon 08-10 Complement C3, Serum 124 mg/dL Normal 82-167 [facility] Comment on above: Performed By: #### A MY, CMP, LIPA #### [facility] [address] [place] [address] Dr. Lawrence Wayne Complement C4, Serum 12 mg/dL Normal 12-38 [facility] Comment on above: Performed By: #### A MY, CMP, LIPA #### [facility] [address] [place] [address] Dr. Lawrence Wayne CBC AUTO DIFFon 08-09-2021 BASO # 0.1 103/ul Normal 0.0-0.1 [facility] Comment on above: Performed By: #### A MY, CMP, LIPA #### [facility] [address] [place] [address] Dr. Lawrence Wayne Basophils/100 WBC (Bld) 0.6 % Normal 0.2-2.0 [facility] Comment on above: Performed By: #### A MY, CMP, LIPA #### [facility] [address] [place] [address] Dr. Lawrence Wayne EO # 0.0 103/ul Normal 0.0-0.7 [facility] Comment on above: Performed By: #### A MY, CMP, LIPA #### [facility] [address] [place] [address] Dr. Lawrence Wayne Eosinophils/100 WBC (Bld) 0.2 % Critically low 0.9-7.0 [facility] Comment on above: Performed By: #### A MY, CMP, LIPA #### [facility] [address] [place] [address] Dr. Lawrence Wayne Erythrocyte distribution width (RBC) [Ratio] 13.4 % Normal 11.0-15.0 [facility] Comment on above: Performed By: #### A MY, CMP, LIPA #### [facility] [address] [place] [address] Dr. Lawrence Wayne Hematocrit (Bld) [Volume fraction] 43.6 % Normal 36.0-48.0 [facility] Comment on above: Performed By: #### A MY, CMP, LIPA #### [facility] [address] [place] [address] Dr. Lawrence Wayne Hemoglobin (Bld) [Mass/Vol] 14.2 g/dL Normal 12.0-16.0 [facility] Comment on above: Performed By: #### A MY, CMP, LIPA #### [facility] [address] [place] [address] Dr. Lawrence Wayne IG # 0.03 10e3/ul Normal 0.00-0.03 [facility] Comment on above: Performed By: #### A MY, CMP, LIPA #### [facility] [address] [place] [address] Dr. Lawrence Wayne IG % 0.3 % Normal 0.0-0.5 [facility] Comment on above: Performed By: #### A MY, CMP, LIPA #### [facility] [address] [place] [address] Dr. Lawrence Wayne LYMPH # 1.1 103/ul Critically low 1.2-3.8 [facility] Comment on above: Performed By: #### A MY, CMP, LIPA #### [facility] [address] [place] [address] Dr. Lawrence Wayne Lymphocytes/100 WBC (Bld) 12.7 % Critically low 20.5-60.0 [facility] Comment on above: Performed By: #### A MY, CMP, LIPA #### [facility] [address] [place] [address] Dr. Lawrence Wayne MANUAL DIFF REQ NO Normal [facility] Comment on above: Performed By: #### A MY, CMP, LIPA #### [facility] [address] [place] [address] Dr. Lawrence Wayne MCH (RBC) [Entitic mass] 30.3 pg Normal 26.7-34.0 [facility] Comment on above: Performed By: #### A MY, CMP, LIPA #### [facility] [address] [place] [address] Dr. Lawrence Wayne MCHC (RBC) [Mass/Vol] 32.6 g/dL Normal 29.9-35.2 [facility] Comment on above: Performed By: #### A MY, CMP, LIPA #### [facility] [address] [place] [address] Dr. Lawrence Wayne MCV (RBC) [Entitic vol] 93.0 fL Normal 81.0-99.0 [facility] Comment on above: Performed By: #### A MY, CMP, LIPA #### [facility] [address] [place] [address] Dr. Lawrence Wayne MONO # 0.3 103/ul Normal 0.3-0.8 [facility] Comment on above: Performed By: #### A MY, CMP, LIPA #### [facility] [address] [place] [address] Dr. Lawrence Wayne Monocytes/100 WBC (Bld) 3.7 % Normal 1.7-12.0 [facility] Comment on above: Performed By: #### A MY, CMP, LIPA #### [facility] [address] [place] [address] Dr. Lawrence Wayne NEUT # 7.3 103/ul Critically high 1.4-6.5 [facility] Comment on above: Performed By: #### A MY, CMP, LIPA #### [facility] [address] [place] [address] Dr. Lawrence Wayne Neutrophils/100 WBC (Bld) 82.5 % Critically high 43.0-75.0 [facility] Comment on above: Performed By: #### A MY, CMP, LIPA #### [facility] [address] [place] [address] Dr. Lawrence Wayne Platelet mean volume (Bld) [Entitic vol] 9.6 fL Normal 9.5-13.5 [facility] Comment on above: Performed By: #### A MY, CMP, LIPA #### [facility] [address] [place] [address] Dr. Lawrence Wayne PLT 322 103/ul Normal 150-450 [facility] Comment on above: Performed By: #### A MY, CMP, LIPA #### [facility] [address] [place] [address] Dr. Lawrence Wayne RBC 4.69 106/ul Normal 4.20-5.40 [facility] Comment on above: Performed By: #### A MY, CMP, LIPA #### [facility] [address] [place] [address] Dr. Lawrence Wayne WBC 8.8 103/ul Normal 4.0-11.0 [facility] Comment on above: Performed By: #### A MY, CMP, LIPA #### [facility] [address] [place] [address] Dr. Lawrence Wayne CRPon 08-09-2021 CRP [Mass/Vol] mg/L Normal <=1.0 [facility] Comment on above: Performed By: #### A MY, CMP, LIPA #### [facility] [address] [address] [address] Lawrence Wayne IRONon 08-09-2021 Iron [Mass/Vol] 83.0 ug/dL Normal 37.0-170.0 [facility] Comment on above: Performed By: #### A MY CMP, LIPA #### [facility] [address] [address] [address] Lawrence Wayne SED RATE WESTERGRENon 2021 SED RATE 16 mm/hr Normal <=30 [facility] Comment on above: Performed By: #### S EDR ####[facility] [id number] [address]Dr. Lawrence Wayne URIC ACID SERUMon 08-09-2021 Urate [Mass/Vol] 3.4 mg/dL Normal 2.5-6.2 [facility] Comment on above: Performed By: #### A GARTH CMP, LIPA #### [facility] [address] [address] [address] Lawrence Wayne XR CSPINE MIN 4 [...] by: TYRELL MOREJON Date: 2021-08-09 14:37 Normal [facility] H PYLORI ANTIBODY IGGon 06-16 H. PYLORI IGG ABS 0.13 Index Value Normal 0.00-0.79 [facility] Comment on above: Result Comment: Nega tive <0.80 Equivocal 0.80 - 0.89 Positive >0.89 Performed By: #### A MY, CMP, LIPA #### [facility] [address] [place] [address] Dr. Lawrence Wayne AMYLASEon 07-11-2021 Amylase [Catalytic activity/Vol] 100 U/L Normal 31-110 [facility] Comment on above: Performed By: #### A MY, CMP, LIPA #### [facility] [address] [place] [address] Dr. Lawrence Wayne CBC AUTO DIFFon 07-11-2021 BASO # 0.1 103/ul Normal 0.0-0.1 [facility] Comment on above: Performed By: #### A MY, CMP, LIPA #### [facility] [address] [place] [address] Dr. Lawrence Wayne Basophils/100 WBC (Bld) 0.7 % Normal 0.2-2.0 [facility] Comment on above: Performed By: #### A MY, CMP, LIPA #### [facility] [address] [place] [address] Dr. Lawrence Wayne EO # 0.1 103/ul Normal 0.0-0.7 [facility] Comment on above: Performed By: #### A MY, CMP, LIPA #### [facility] [address] [place] [address] Dr. Lawrence Wayne Eosinophils/100 WBC (Bld) 1.2 % Normal 0.9-7.0 [facility] Comment on above: Performed By: #### A MY, CMP, LIPA #### [facility] [address] [place] [address] Dr. Lawrence Wayne Erythrocyte distribution width (RBC) [Ratio] 13.9 % Normal 11.0-15.0 [facility] Comment on above: Performed By: #### A MY, CMP, LIPA #### [facility] [address] [place] [address] Dr. Lawrence Wayne Hematocrit (Bld) [Volume fraction] 45.9 % Normal 36.0-48.0 [facility] Comment on above: Performed By: #### A MY, CMP, LIPA #### [facility] [address] [place] [address] Dr. Lawrence Wayne Hemoglobin (Bld) [Mass/Vol] 14.9 g/dL Normal 12.0-16.0 [facility] Comment on above: Performed By: #### A MY, CMP, LIPA #### [facility] [address] [place] [address] Dr. Lawrence Wayne IG # 0.03 10e3/ul Normal 0.00-0.03 [facility] Comment on above: Performed By: #### A MY, CMP, LIPA #### [facility] [address] [place] [address] Dr. Lawrence Wayne IG % 0.4 % Normal 0.0-0.5 [facility] Comment on above: Performed By: #### A MY, CMP, LIPA #### [facility] [address] [place] [address] Dr. Lawrence Wayne LYMPH # 2.2 103/ul Normal 1.2-3.8 [facility] Comment on above: Performed By: #### A MY, CMP, LIPA #### [facility] [address] [place] [address] Dr. Lawrence Wayne Lymphocytes/100 WBC (Bld) 29.0 % Normal 20.5-60.0 [facility] Comment on above: Performed By: #### A MY, CMP, LIPA #### [facility] [address] [place] [address] Dr. Lawrence Wayne MANUAL DIFF REQ NO Normal [facility] Comment on above: Performed By: #### A MY, CMP, LIPA #### [facility] [address] [place] [address] Dr. Lawrence Wayne MCH (RBC) [Entitic mass] 29.8 pg Normal 26.7-34.0 [facility] Comment on above: Performed By: #### A MY, CMP, LIPA #### [facility] [address] [place] [address] Dr. Lawrence Wayne MCHC (RBC) [Mass/Vol] 32.5 g/dL Normal 29.9-35.2 [facility] Comment on above: Performed By: #### A MY, CMP, LIPA #### [facility] [address] [place] [address] Dr. Lawrence Wayne MCV (RBC) [Entitic vol] 91.8 fL Normal 81.0-99.0 [facility] Comment on above: Performed By: #### A MY, CMP, LIPA #### [facility] [address] [place] [address] Dr. Lawrence Wayne MONO # 0.9 103/ul Critically high 0.3-0.8 [facility] Comment on above: Performed By: #### A MY, CMP, LIPA #### [facility] [address] [place] [address] Dr. Lawrence Wayne Monocytes/100 WBC (Bld) 11.7 % Normal 1.7-12.0 [facility] Comment on above: Performed By: #### A MY, CMP, LIPA #### [facility] [address] [place] [address] Dr. Lawrence Wayne NEUT # 4.3 103/ul Normal 1.4-6.5 [facility] Comment on above: Performed By: #### A MY, CMP, LIPA #### [facility] [address] [place] [address] Dr. Lawrence Wayne Neutrophils/100 WBC (Bld) 57.0 % Normal 43.0-75.0 [facility] Comment on above: Performed By: #### A MY, CMP, LIPA #### [facility] [address] [place] [address] Dr. Lawrence Wayne Platelet mean volume (Bld) [Entitic vol] 8.7 fL Critically low 9.5-13.5 [facility] Comment on above: Performed By: #### A MY, CMP, LIPA #### [facility] [address] [place] [address] Dr. Lawrence Wayne PLT 351 103/ul Normal 150-450 [facility] Comment on above: Performed By: #### A MY, CMP, LIPA #### [facility] [address] [address] [address] Lawrence Wayne RBC 5.00 106/ul Normal 4.20-5.40 [facility] Comment on above: Performed By: #### A MY, CMP, LIPA #### [facility] [address] [place] [address] Dr. Lawrence Wayne WBC 7.6 103/ul Normal 4.0-11.0 [facility] Comment on above: Performed By: #### A MY, CMP, LIPA #### [facility] [address] [place] [address] Dr. Lawrence Wayne LIPASEon 07-11-2021 Lipase [Catalytic activity/Vol] 93.0 U/L Normal 23.0-300.0 [facility] Comment on above: Performed By: #### A MY, CMP, LIPA #### [facility] [address] [place] [address] Dr. Lawrence Wayne PROF 14(COMP METB)on 022 Albumin [Mass/Vol] 4.1 g/dL Normal 3.5-5.0 [facility] Comment on above: Performed By: #### A MY, CMP, LIPA #### [facility] [address] [place] [address] Dr. Lawrence Wayne Albumin/Globulin [Mass ratio] 1.1 {ratio} Normal [facility] Comment on above: Performed By: #### A MY, CMP, LIPA #### [facility] [address] [place] [address] Dr. Lawrence Wayne ALP [Catalytic activity/Vol] 101 U/L Normal 38-126 [facility] Comment on above: Performed By: #### A MY, CMP, LIPA #### [facility] [address] [place] [address] Dr. Lawrence Wayne ALT [Catalytic activity/Vol] 38 U/L Normal 9-52 [facility] Comment on above: Performed By: #### A MY, CMP, LIPA #### [facility] [address] [place] [address] Dr. Lawrence Wayne Anion gap [Moles/Vol] 12.5 mmol/L Normal [facility] Comment on above: Performed By: #### A MY, CMP, LIPA #### [facility] [address] [address] [address] Lawrence Wayne AST [Catalytic activity/Vol] 25 U/L Normal 14-36 [facility] Comment on above: Performed By: #### A MY, CMP, LIPA #### [facility] [address] [address] [address] Lawrence Wayne Bilirubin [Mass/Vol] 0.8 mg/dL Normal 0.2-1.3 [facility] Comment on above: Performed By: #### A MY, CMP, LIPA #### [facility] [address] [place] [address] Dr. Lawrence Wayne Calcium [Mass/Vol] 9.9 mg/dL Normal 8.4-10.2 [facility] Comment on above: Performed By: #### A MY, CMP, LIPA #### [facility] [address] [place] [address] Dr. Lawrence Wayne Chloride [Moles/Vol] 98 mmol/L Normal 98-107 [facility] Comment on above: Performed By: #### A MY, CMP, LIPA #### [facility] [address] [place] [address] Dr. Lawrence Wayne CO2 [Moles/Vol] 26.6 mmol/L Normal 22.0-30.0 [facility] Comment on above: Performed By: #### A MY, CMP, LIPA #### [facility] [address] [place] [address] Dr. Lawrence Wayne Creatinine [Mass/Vol] 1.12 mg/dL Critically high 0.52-1.04 [facility] Comment on above: Performed By: #### A MY, CMP, LIPA #### [facility] [address] [place] [address] Dr. Lawrence Wayne EGFR-AF AUSTRALIAN 59 mL/min/1.73m2 Critically low >=60 [facility] Comment on above: Performed By: #### A MY, CMP, LIPA #### [facility] [address] [address] [address] Lawrence Wayne EGFR-NON AF AUSTRALIAN 49 mL/min/1.73m2 Critically low >=60 [facility] Comment on above: Performed By: #### A MY, CMP, LIPA #### [facility] [address] [place] [address] Dr. Lawrence Wayne Globulin (S) [Mass/Vol] 3.7 g/dL Normal [facility] Comment on above: Performed By: #### A MY, CMP, LIPA #### [facility] [address] [place] [address] Dr. Lawrence Wayne Glucose [Mass/Vol] 117 mg/dL Critically high 74-106 [facility] Comment on above: Performed By: #### A MY, CMP, LIPA #### [facility] [address] [place] [address] Dr. Lawrence Wayne Potassium [Moles/Vol] 4.1 mmol/L Normal 3.4-5.0 [facility] Comment on above: Performed By: #### A MY, CMP, LIPA #### [facility] [address] [place] [address] Dr. Lawrence Wayne Protein [Mass/Vol] 7.8 g/dL Normal 6.1-8.2 [facility] Comment on above: Performed By: #### A MY, CMP, LIPA #### [facility] [address] [place] [address] Dr. Lawrence Wayne Sodium [Moles/Vol] 133 mmol/L Critically low 137-145 [facility] Comment on above: Performed By: #### A MY, CMP, LIPA #### [facility] [address] [place] [address] Dr. Lawrence Wayne Urea nitrogen [Mass/Vol] 9.0 mg/dL Normal 7.0-17.0 [facility] Comment on above: Performed By: #### A MY, CMP, LIPA #### [facility] [address] [place] [address] Dr. Lawrence Wayne Urea nitrogen/Creatini ne [Mass ratio] 8.0 mg/mg Normal [facility] Comment on above: Performed By: #### A MY, CMP, LIPA #### [facility] [address] [address] [address] Lawrence Wayne Coding Summary.on 04-21-2018 Coding Summary. CODING DATE: FINAL [facility] STATUS: Home (Routine DC) PAYOR: Medicare APC DESCRIPTION 5072 Level 2 Excision/ Biopsy/ Incision and Drainage [...] PROC APC STAT DESCRIPTION DOCTOR NAME DATE 12515 7024 J1 Biopsy of liver, needle; Luli Roy MD 04/12/2018 percutaneous 98410 Ultrasonic guidance for Luli Roy MD 04/12/2018 [...] Edmond Date Saved: 04/21/2018 04:57 pm Normal [facility] Coding Summary.on 04-16-2018 Coding Summary. CODING DATE: 018 FINAL [facility] STATUS: Home (Routine DC) PAYOR: Medicare APC [...] Godinez Date Saved: 04/16/2018 11:59 am Normal [facility] CT Abdomen w/ + w/o Contrast on [...] Jj Pettit MD Transcribed by: [place] Technologist: APU,Technical CommentsGFR (mL/min/1/73m2) 56Contrast: Isovue 300Contrast amount in ml's: 100Rectal Contrast Given? NoOral contrast amount in ml's: 450 Normal [facility] Creatinineon 04-15-2018 Creatinine mass conc 1.0 mg/dL Normal 0.5-1.3 [facility] Comment on above: Performed By: #### 2 [id number], [id number], [id number], [id number], [id number], [id number], [id number] ####[facility] [address] [place] [address] eGFRon 04-15-2018 GFR/1.73 sq M predicted among blacks MDRD vol rate/area (S/P/Bld) mL/min/{1.73_m2} Normal >=59 [facility] Comment on above: Order Comment: Order added by Discern Expert. Result Comment: eGFR is race adjusted. AA=. Performed By: #### 2 [id number], [id number], 3232326, 6394136, [id number], 1132745, [id number] ####[facility] [address] [place] [address] GFR/1.73 sq M predicted among non-blacks MDRD vol rate/area (S/P/Bld) 56 mL/min/1.73 m2 Low >=59 [facility] Comment on above: Order Comment: Order added by Discern Expert. Result Comment: Meal Attendant seng kidney disease could be indicated at eGFR's of less than 60 mL/min/1.73m2. Kidney failure is indicated at less than 15 mL/min/1.73m2. Performed By: #### 2 [id number], [id number], 4160381, 0112199, 1623054, [id number], [id number] ####[facility] [address] [place] [address] Lab Miscellaneouson 04-14-20 Status See Ref Lab Report Normal [facility] Comment on above: Performed By: #### 2 [id number], [id number], 8106165, 3589906, [id number], [id number], [id number] ####[facility] [address] [place] [address] Status See Ref Lab Report Normal [facility] Comment on above: Performed By: #### 2 [id number], 3935674, 2685735, 2090744, 8369117, [id number], [id number] ####[facility] [address] [place] [address] Status See Ref Lab Report Normal [facility] Comment on above: Performed By: #### 2 [id number], [id number], 3562719, 3114974, 0094998, [id number], [id number] ####[facility] [address] [place] [address] Inpatient Patient Summaryon 04-12-2018 Inpatient [facility] InstructionsPERSON INFORMATION Name: [facility] Admitting Physician: Fermín Roy MDending Physician: Luli Roy MD PCP: Meche PARISI, Gagan Diagnosis: Abnormal LFTs Comment: PATIENT EDUCATION INFORMATIONInstructions:Medication Leaflets:Follow up:With: Address: When: [facility], [address] [place] [address] [place] [address] Business (1) Within 1 to 2 weeks Type Location [facility] 04/12/2018 8:00 AM 04/12/2018 8:30 AM Confirmed MEDICATION LISTComment: Normal [facility] Patient Education - Texton 1 Patient Education - Text Normal [facility] ANCAon 04-10-2018 Neutrophil cytoplasmic Ab.classic IF titer (S) <1:20 Invalid Interpretation Code Neg:<1:20 [facility] Comment on above: Performed By: #### 2 [id number], 6013242, 0488884, 9746063, 3808169, 7757510, [id number] ####[facility] [address] [place] [address] Neutrophil cytoplasmic Ab.perinuclear IF titer (S) <1:20 Invalid Interpretation Code Neg:<1:20 [facility] Comment on above: Result Comment: The presence of positive fluorescence exhibiting P-ANCA or C-ANCApatterns alone is not specific for the diagnosis of Latonia'sGranulomatosis (WG) or microscopic polyangiitis. Decisions abouttreatment should not be based solely on ANCA IFA results. TheInternational ANCA Group Consensus recommends follow up testing ofpositive sera with both OK-3 and MPO-ANCA enzyme immunoassays. Asmany as 5% serum samples are positive only by EIA.Ref. AM J Clin Pathol 1999;111:507-513. Performed By: #### 2 467352, 1255642, 8904069, 8843328, 0751442, 1397175, [id number] ####[facility] [address] [place] [address] Neutrophil cytoplasmic Ab.perinuclear.at ypical IF titer (S) <1:20 Invalid Interpretation Code Neg:<1:20 [facility] Comment on above: Result Comment: The atypical pANCA pattern has been observed in a significantpercentage of patients with ulcerative colitis, primary sclerosingcholangitis and autoimmune hepatitis.Performed at: [address] [id number] PhD Rohith Dawson Performed By: #### 2 704977, 8322141, 8375632, 4857102, 4613183, 4420508, 32041988 ####[address] [place] [address] Vit Aon 04-10-2018 Retinol mass conc 50.2 microgram/dL Invalid Interpretation Code 36.4-108.0 [facility] Comment on above: Result Comment: Refe rence intervals for vitamin A determined from National Health andNutrition Examination Survey, 0408-5739. Individuals with vitamin Aless than 20 ug/dL are considered vitamin A deficient and those withserum concentrations less than 10 ug/dL are considered severelydeficient.This test was developed and its performance characteristicsdetermined by [facility]. It has not been cleared or approvedby the Food and Drug Administration.Performed at: [address] [id number] MD Lillie García Performed By: #### 2 645900, 3187600, 4726679, 5929595, 3231550, 6258175, [id number] ####[facility] [address] [place] [address] Vit William 04-10-2018 Alpha tocopherol mass conc 14.3 mg/L Invalid Interpretation Code 9.0-29.0 [facility] Comment on above: Performed By: #### 2 989448, 5302697, 9102211, 3475877, 1077331, 0160801, 10695007 ####[facility] [address] [place] [address] Gamma tocopherol mass conc 5.1 mg/L High 0.5-4.9 [facility] Comment on above: Result Comment: Refe rence intervals for alpha and gamma- tocopherol determined [facility] Health and Nutrition Examination Survey, 5359-8580.Individuals with alpha-tocopherol levels less than 5.0 mg/L areconsidered vitamin E deficient.This test was developed and its performance characteristicsdetermined by [employer]. It has not been cleared or approvedby the Food and Drug Administration.Performed at: [address] [id number] MD Lillie García Performed By: #### 2 456926, 6762904, 8939833, 0192802, 9403344, 1293076, 86040370 ####[facility] [address] [place] [address] Coding Summary.on 04-08-2018 Coding Summary. CODING DATE: 018 FINAL [facility] STATUS: Home (Routine DC) PAYOR: Medicare ADMIT [...] Bernardo Date Saved: 04/08/2018 02:54 pm Normal [facility] Lab Miscellaneouson 04-07-20 Test Name LC 1 Invalid Interpretation Code [facility] Comment on above: Performed By: #### 2 558478, 6729483, 3257673, 2245803, 2525843, 2214451, 08228669 ####[facility] [address] [place] [address] Test Name ALKM 1 Invalid Interpretation Code [facility] Comment on above: Performed By: #### 2 060715, 4357097, 9970672, 4775420, 1069283, 9212272, 37026110 ####[facility] [address] [place] [address] Test Name CHARLIE LIVER AG Invalid Interpretation Code [facility] Comment on above: Performed By: #### 2 725130, 5677786, 2315513, 2984824, 0048459, 1817282, 53142954 ####[facility] [address] [place] [address] Vitamin D 25 Hydroxyon 04-07 Calcidiol mass conc 28.3 ng/mL Low 30.0-100.0 [facility] Comment on above: Result Comment: Vit jurado D deficiency has been defined as a level of serum 25-OH vitamin D less than 20 ng/mL (1,2) by the [place] of Medicine and an Endocrine Society practice guideline. The Endocrine Society further defined vitamin D insufficiency as a level between 21 and 29 ng/mL (2). 1. IOM ([place] of Medicine). 2010. Dietary reference intakes for calcium and D. [place]: The National Academies Press. 2. Ernesto MF, Pierre [place], Gladys HOUSTON, et al. Evaluation, treatment, and prevention of vitamin D deficiency: an Endocrine Society clinical practice guideline. JCEM. 2010; 96 (7):1911-30. Performed By: #### 2 581580, 3039612, 1463753, 3177619, 1138222, 5025381, 77699115 ####[facility] [address] [place] [address] Main OR Intraoperative Recor don 11-10-2017 Main OR Intraoperative Record IntraOp Document Type FT Summary Primary Physician: Luli Roy MD Finalized Date/Time: 11/10/17 08:17:39 Pt. Name: SKIP HONG/Sex: 1955 Female Med Rec #: [id number] Physician: Kirill PARISI, Luli Financial #: [id number] Pt. Type: O Room/Bed: / Admit/Disch: 11/05/17 [...] Chart open to review and send charges. L Minerva PARRISH Case Attendance FT Entry 1 Entry 2 Entry 3 Case Attendee Bao Orozco DO, Froy Roy MD, Luli Quinones CST, Julieta Role Performed Anesthesiologist of Surgeon - Primary Scrub - Primary Record Time In 11/05/17 10:30:00 11/05/17 10:30:00 11/05/17 10:30:00 Time Out 11/05/17 10:45:00 11/05/17 10:45:00 11/05/17 10:45:00 Procedure COLONOSCOPY(.) COLONOSCOPY(.) COLONOSCOPY(.) Comments Last Modified By: Angelita Montana RN, RN, Angelita Phillips RN 11/05/17 10:45:56 11/05/17 10:45:56 11/05/17 10:45:56 Entry 4 Case Attendee Angelita Montana RN Role Performed Seed Potato Cutter - Primary Time In 11/05/17 10:30:00 Time [...] No Time Out Froy Gore Jr., DO, Luli Roy MD, Hartley RN, Joni Goldstein CST, Molly Time Out Complete 11/05/17 10:31:00 [...] caused by extraneous objects Transport To OR Pre-Care Text: Transports according to individual [...] RN Patient Status Stable Skin. Condition Intact, [place], Warm, and Dry Airway Maintenance Oxygen in Use? No Outcomes Met? Yes Last Modified By: Angelita Montana RN 11/05/17 07:06:56 Post-Care Text: The patient is free from signs and symptoms of injury related to transfer/transport General Comments: Report given to winter sports manager. RHRn Medication Administration FT Pre-Care Text: Verifies allergies, administers prescribed medications and solutions, administers prescribed antibiotic therapy and immunizing agents as ordered, evaluates response to medications Administers prescribed medications and solutions Entry 1 Expiration Date Yes Outcomes Met? Yes Verified Last Modified By: Angelita Montana RN 11/05/17 07:07:58 Post-Care Text: The patient received appropriate medication(s) safely administered during the perioperative period For [facility] please see scanned medication reconcilliation form for [...] SHAMAR Palma RN, Lou Ann 11/10/17 08:17 SHAMAR Palma RN, Lou Ann 11/10/17 08:17 Normal [facility] Coding Summary.on 11-06-2017 Coding Summary. CODING DATE: 018 [facility] STATUS: Home (Routine DC) PAYOR: Medicare APC [...] PROC APC STAT DESCRIPTION DOCTOR NAME DATE 37214 9033 T Colonoscopy, flexible; Luli Roy MD 11/05/2017 with biopsy, single or multiple 05026 Anesthesia for lower Luli Roy MD 11/05/2017 intestinal endoscopic procedures, endoscope introduced distal to duodenum; not otherwise specified NOTE: The code number assigned matches the documented diagnosis and / or procedure in the patient's chart. However, the narrative phrase printed from the coding software may appear abbreviated, or result in slightly different terminology. Coded By: Heather Godinez Date Saved: 11/06/2017 04:20 pm Normal [facility] History and Physicalon 11-05 History and Physical Date: 10/22/2017 3:00 PMPatient Name: Skip Seals #: [id number]: FemaleDOB (age): 1955 (62)Provider: Maylin Duarte Physician: Anitha Ramey MD[address] [phone] (phone) (fax)Chief Complaint: Follow up to EGDHistory [...] diarrhea alternating with constipation, was recently startedon Linzess by Dr. Kerr for possible diarrhea of [...] current status unknownPrinted on 10/30/2017 Skip Hong, [address], 1955 Page 1 of 4Printed on 10/30/2017 Skip Hong, 30[address], 1955Drugs: NoneExercise: walking daily.Caffeine: tea and coffee.Marital [...] Signs:BP(mmHg)Pulse(ppm)Rhythm Weight (lbs/oz) Height (ft/in) BMI Resp/min Jkxn187/70 91 Regular 132 / 5 / 3 [...] and remote events.Printed on 10/30/2017 Skip Hong, [address]149, 1955 Page 2 of 4Printed on 10/30/2017 Skip Hong, 18290, 1955Mood and affect: no evidence of depression, anxiety or agitation.Impressions: Chronic pancreatitis, mild chronic pancreatitis on EUS, positive AMIRA, negative IgG4, she has ahistory of lupus, patient continues despite above, we will give her a trial of prednisone and wewill monitor for improvementCBD Stones , status post ERCP and biliary sphincterotomyChange in bowel habits, proceed with colonoscopyPlan: Colonoscopy will be performed at [facility] .Prednisone 10 mg Take 4 tablets daily for 2 wks.Take 3 daily for 2 wks.Take 2daily for 2wks.Take 1 daily for 2 wks. then 0.5 daily for 1 wk then stopRisk & Medical Necessity: Diagnosis and management options are Minimal. The amount of data reviewed and/orordered is Minimal/None. The level of risk is Minimal.Luli Roy MD Skip Hong, [address], 1955 Page 3 of 4Printed on 10/30/2017 Skip Hong, 96514, 1955Printed on 10/30/2017 Skip Hong, 59926, 1955 Page 4 of 4Printed on 10/30/2017 Skip Hong, 245[address], 1955no change [facility] Comment on above: Result Comment: Elec tronically Signed By: Luli Roy MD\.br\Date and Time Signed: 11/05/17 10:27 EDT Inpatient Patient Summaryon 11-05-2017 Inpatient [facility] InstructionsPERSON INFORMATION Name: SKIP HONG PHYSICIANS Admitting Physician: Blossom Roy MD Physician: Luli Roy MD PCP: Gagan Ramey MD Diagnosis: Internal hemorrhoids Comment: PATIENT EDUCATION INFORMATIONInstructions:Medication Leaflets:Follow up:With: Address: When: [facility], [address] [phone] Business (1) Within 1 to 2 weeks MEDICATION LISTComment: [facility] Main OR PACU I Recordon 10-14 Main OR PACU I Record PACU Phase I Document Type FT Summary Primary Physician: Luli Roy MD Finalized Date/Time: 11/05/17 12:12:56 Pt. Name: SKIP HONG Jarod Henry/Sex: 1955 Female Med Rec #: [id number] Physician: Luli Roy MD Financial #: [id number] Pt. Type: O Room/Bed: / Admit/Disch: 11/05/17 [...] 12:10 Shayla Mckenzie RN 11/05/17 12:12 Normal [facility] Patient Education - Texton 0 11-05-2017 Patient Education - Text [facility] Progress Note-Physicianon Protein mass conc Patient: [...] involuntary movements and spasms / SNOMED CT 463336246 / ConfirmedesophagealDiverticulosis / SNOMED CT 4163369709 / ConfirmedFrozen shoulder / SNOMED CT 9247418603 / ConfirmedRIGHTIBS (irritable bowel syndrome) / SNOMED CT 13128142 / ConfirmedThoracic outlet syndrome / SNOMED CT 269268726 / ConfirmedbilateralH/O pleurisy / SNOMED CT 451369605 / ConfirmedC. difficile diarrhea / SNOMED CT 1461299903 / [facility] 2 to 3 years agoRSD (reflex sympathetic dystrophy) / SNOMED CT 6642726400 / ConfirmedPancreatitis, acute / SNOMED CT 292236890 / ConfirmedAcid reflux / SNOMED CT 868171322 / ConfirmedFibromyalgia / SNOMED CT 13956932 / ConfirmedPancreatic cyst / SNOMED CT 07960537 / ConfirmedMigraines / SNOMED CT 80321106 / ConfirmedArthritis / SNOMED CT 9665307 / Confirmedneck and lower backChronic colitis / SNOMED CT 14203824 / ConfirmedLupus / SNOMED CT 68686591 / ConfirmedResolved: Pancreatitis / SNOMED CT 578227453Xdmltpie: Thoracic outlet syndrome / SNOMED CT 24P07844-50J7-7683-0185-7NM1373YW3 20Resolved: IBS (irritable bowel syndrome) / SNOMED CT 4JFLA897-8NO1-531G-6WGV-27408894GL 4CResolved: SLE (systemic lupus erythematosus) / SNOMED CT 81K254X4-1250-87Z9-0B49-DV71NNR809 CFResolved: Endometriosis / SNOMED CT 70K9SBI3-1EDT-240R-42ZX-1G80T0C9V5 C9Edqaqcwn: Hyperlipidemia / SNOMED CT 71265518Gvekhyvn: Fibromyalgia / SNOMED CT E7Y683Y8-N66F-7859-97J6-9859102M94 D1Kvidbsih: RSD upper limb / SNOMED CT L7X0T2L4-3QO6-94DK-5WJ3-517328TKX9 C1 Physical Examination Vital Signs 11/05/2017 11:15 [...] noted. Plan Transfer/ Discharge: Condition stable. Normal [facility] Comment on above: Result Comment: [...] involuntary movements and spasms / SNOMED CT 404386177 / ConfirmedesophagealDiverticulosis / SNOMED CT 2903749093 / ConfirmedFrozen shoulder / SNOMED CT 0662986297 / ConfirmedRIGHTIBS (irritable bowel syndrome) / SNOMED CT 20544720 / ConfirmedThoracic outlet syndrome / SNOMED CT 242006493 / ConfirmedbilateralH/O pleurisy / SNOMED CT 338888200 / ConfirmedC. difficile diarrhea / SNOMED CT 5632345721 / [facility] 2 to 3 years agoRSD (reflex sympathetic dystrophy) / SNOMED CT 2970779864 / ConfirmedPancreatitis, acute / SNOMED CT 626877369 / ConfirmedAcid reflux / SNOMED CT 038304937 / ConfirmedFibromyalgia / SNOMED CT 84492580 / ConfirmedPancreatic cyst / SNOMED CT 60427929 / ConfirmedMigraines / SNOMED CT 57239110 / ConfirmedArthritis / SNOMED CT 4301750 / Confirmedneck and lower backChronic colitis / SNOMED CT 05677610 / ConfirmedLupus / SNOMED CT 61467819 / ConfirmedResolved: Pancreatitis / SNOMED CT 932451051Lhawynuy: Thoracic outlet syndrome / SNOMED CT 91K89384-19F0-8267-1784-8AA0242CR6 20Resolved: IBS (irritable bowel syndrome) / SNOMED CT 7WFDK288-1VU8-032E-4CGV-37274847BC 4CResolved: SLE (systemic lupus erythematosus) / SNOMED CT 83D208O7-0358-48T8-7T03-YD46HJA368 CFResolved: Endometriosis / SNOMED CT 93R3JSW0-1VKQ-062S-54DJ-6Q05D0F1C0 G9Bzhkvlqf: Hyperlipidemia / SNOMED CT 46630697Ztxjaodk: Fibromyalgia / SNOMED CT M8X217H4-H05R-5160-80V0-8799149F30 Z7Qoupblyd: RSD upper limb / SNOMED CT S4Z5X5J9-1JU5-97MQ-6IL2-947572ACW4 C1 Physical Examination Vital Signs 11/05/2017 11:15 [...] noted. Plan Transfer/ Discharge: Condition stable. Normal [facility] Comment on above: Result Comment: [...] 0, Pain Histories Past Medical History: ResolvedFibromyalgia (Z2A750W0-O66W-0122-33T3-3769196F4 0C0): Resolved.IBS (irritable bowel syndrome) (1EZZS542-1HI3-858U-1EJA-55362463W A4C): Resolved.Pancreatitis (409804452): Resolved.Endometriosis (67Q8EWK3-4SGE-604S-02QE-5H21S5R3R 3C4): Resolved.Thoracic outlet syndrome (82U31333-78B8-2473-9473-7KO8178VR 020): Resolved.SLE (systemic lupus erythematosus) (64J688S9-0307-94Z0-4N70-KL13RYH15 8CF): Resolved.RSD upper limb (T8X9G9C5-3II5-79DP-2UP1-560501EQT 9C1): Resolved.Hyperlipidemia (72336560): Resolved. Family History: No family history items have been selected or recorded. Procedure history: History of tonsillectomy (2408904007). section (10462374).Laparoscopic right ovarian cystectomy (9735176104).Thoracic outlet syndrome (40B88284-03G6-3137-8409-4DF4689JI 020).Comments:01/30/2016 12:01 - Ibrahima PARRISH, [facility] CareaterallyHistory of hysterectomy.. (4919099167).Laparoscope (078210259).Gallbladder (508817293).Endoscopy (2332484988).Colonoscopy (153635448).mri/ct abd.right shoulder scope.Cholecystectomy (12216812). Social History Social & Psychosocial HabitsAlcohol Comment: denies current use - 10/05/2017 09:18 - Samantha Shelton RN A010/06/2017 Risk Assessment: Denies Alcohol UseSubstance Abuse01/30/2016 Risk Assessment: Denies Substance Abuse Comment: denies current use - 10/05/2017 09:18 - Nikita PARRISH, Samantha DPuikpva56/17/2016 Risk Assessment: Denies Tobacco Use Comment: denies current use - 10/05/2017 09:18 - Nikita PARRISH, Samantha Howe Physical Examination Measurements from flowsheet : Measurements 11/05/2017 09:29 EDT Height/Length Measured 160.02 cm Body Mass Index Measured 23.39 kg/m2 Weight Measured 59.9 kg Respiratory: Lungs are clear to auscultation. Cardiovascular: Regular rhythm. Plan [place] [employer] of Anesthesiologists (ASA) physical status classification: Class II. Anesthetic Preoperative Plan Anesthesia: General. . Anesthetic plan, risks, benefits, and alternatives discussed with the patient and/or family. Patient verbalized understanding. [facility] Comment on above: Result Comment: Elec tronically Signed By: Froy Gore Jr., DO\.br\Date and Time Signed: 11/05/17 10:27 EDT Main OR Intraoperative Recor don 10-08-2017 Main OR Intraoperative Record IntraOp Document Type FT Summary Primary Physician: Luli Roy MD Finalized Date/Time: 10/08/17 13:15:06 Pt. Name: SKIP HONG/Sex: 1955 Female Med Rec #: [id number] Physician: Luli Roy MD Financial #: [id number] Pt. Type: O Room/Bed: / Admit/Disch: 10/07/17 [...] Role Performed Anesthesiologist of Surgeon - Primary Seed Potato Cutter - Primary Record Time In 10/07/17 09:29:00 [...] No Time Out Jeyson Cordova DO, Kaden Howell, Given Participants Kirill PARISI, James Rockwell RN, Jeana Howell, Sandi SANDWICH COUNTER ATTENDANT, Liz Olivera Time Out Complete 10/07/17 09:30:00 Outcomes Met? Yes Last Modified By: James PARRISH, Jeana Howell 10/07/17 09:31:47 Post-Care Text: The patient is [...] and tissue Entry 1 Skin Integrity Intact, [place], Warm, and Skin Abnormality No Dry Outcomes Met? Yes Last Modified By: Jeana Ramirez RN 10/07/17 07:23:06 Post-Care Text: The patient [...] RN Patient Status Stable Skin. Condition Intact, [place], Warm, and Dry Airway Maintenance Oxygen in Use? No Airway Device N/A Outcomes Met? Yes Last Modified By: Jeana Ramirez RN 10/07/17 07:24:09 Post-Care Text: The patient is free from signs and symptoms of injury related to transfer/transport General Comments: Report given to MECHANICAL DESIGN DRAFTER./AMINA,cloud developer Administration FT Pre-Care Text: Verifies allergies, administers prescribed medications and solutions, administers prescribed antibiotic therapy and immunizing agents as ordered, evaluates response to medications Administers prescribed medications and solutions Entry 1 Expiration Date Yes Outcomes Met? Yes Verified Last Modified By: Jeana Ramirez RN 10/07/17 07:24:18 Post-Care Text: The patient received appropriate medication(s) safely administered during the perioperative period For [facility] please see scanned medication reconcilliation form for medications used at the field during the procedure. Cultures and Specimens FT Pre-Care Text: Manages specimen handling and disposition Manages culture specimen collection Entry 1 Cultures Ordered n/a Specimens Ordered Yes Specimen Disposition Designated OR Area Frozen Section Times Outcomes Met? Yes Last Modified By: James PARRISH, Jeana Howell 10/07/17 09:33:07 Post-Care Text: The patient is free from signs and symptoms of injury caused by extraneous objects The patient is free from signs and symptoms of infection Case Comments Finalized By: Esthela Franco CST Document Signatures Signed By: Santa Sarah RN 10/07/17 09:40 Esthela Franco CST 10/08/17 13:15 Normal [facility] Progress Note-Physicianon Protein mass conc [...] Nausea, # 16 tab(s), Refills(s) 0, Pharmacy: [facility] #72Documented MedicationsDocumentedNitro 0.4 mg Tab: = 1 [...] list: All ProblemsPancreatitis, acute / SNOMED CT 945686902 / ConfirmedFrozen shoulder / SNOMED CT 0852276513 / ConfirmedRIGHTArthritis / SNOMED CT 4739377 / Confirmedneck and lower backChronic colitis / SNOMED CT 67954951 / ConfirmedC. difficile diarrhea / SNOMED CT 4109409850 / [facility] 2 to 3 years agoRSD (reflex sympathetic dystrophy) / SNOMED CT 8743067936 / ConfirmedPancreatic cyst / SNOMED CT 33991055 / ConfirmedDiverticulosis / SNOMED CT 9569633842 / ConfirmedFibromyalgia / SNOMED CT 94810466 / ConfirmedAcid reflux / SNOMED CT 059849830 / ConfirmedH/O pleurisy / SNOMED CT 355900398 / ConfirmedIBS (irritable bowel syndrome) / SNOMED CT 21073932 / ConfirmedMigraines / SNOMED CT 35457918 / ConfirmedRare disorder causing involuntary movements and spasms / SNOMED CT 198716701 / ConfirmedesophagealLupus / SNOMED CT 54126367 / ConfirmedThoracic outlet syndrome / SNOMED CT 457931961 / ConfirmedbilateralResolved: Endometriosis / SNOMED CT 63Z3MRC5-4YWE-080K-92SN-6F26X0H1T2 Y0Qvuuaghs: Fibromyalgia / SNOMED CT R2K203B9-W73M-1649-52B5-5172989R42 N5Xwnxyckq: Hyperlipidemia / SNOMED CT 95571939Aiocmfoj: IBS (irritable bowel syndrome) / SNOMED CT 9PHOD584-7QY5-802T-0UWM-40801516BT 4CResolved: Pancreatitis / SNOMED CT 416821658Rgmtyhoy: RSD upper limb / SNOMED CT F4Y6D6D7-2TH3-07BY-0HL3-099443VLU6 Y4Mlgzogms: SLE (systemic lupus erythematosus) / SNOMED CT 44F073X5-6867-10Q0-9L61-VV98RMV687 CFResolved: Thoracic outlet syndrome / SNOMED CT 16A92208-00Z6-4426-6356-1QF4603TM3 20 Histories Past Medical History: ResolvedFibromyalgia (V7C822P6-K50V-1202-79N4-3627268Q4 0C0): Resolved.IBS (irritable bowel syndrome) (0OVIQ702-8RA0-978P-3LZU-62444426F A4C): Resolved.Pancreatitis (250218058): Resolved.Endometriosis (30S8LFC6-5NIG-477Y-92BO-2D46Y4X5R 3C4): Resolved.Thoracic outlet syndrome (27F29741-17M1-8727-6817-5BC8673RG 020): Resolved.SLE (systemic lupus erythematosus) (21V225J7-2461-06K6-4C96-JT14BXU36 8CF): Resolved.RSD upper limb (I5D2M5M3-4PX7-77OU-2YZ8-102160AEG 9C1): Resolved.Hyperlipidemia (90148939): Resolved. Family History: No family history items have been selected or recorded. Procedure history: History of tonsillectomy (4442179012). section (86995608).Laparoscopic right ovarian cystectomy (5541835232).Thoracic outlet syndrome (30Z20390-49C5-9610-3605-6NJ8859LQ 020).Comments:01/30/2016 12:01 - Ibrahima PARRISH, [facility] CenterabilaterallyHistory of hysterectomy.. (0183137967).Laparoscope (585250904).Gallbladder (138571689).Endoscopy (3676107831).Colonoscopy (386716480).mri/ct abd.right shoulder scope. Social History Social & Psychosocial CzfolsQguttlx54/17/2016 Risk Assessment: Low Risk Comment: denies current use - 10/05/2017 09:18 - Samantha Shelton RN ASubstance Abuse01/30/2016 Risk Assessment: Denies Substance Abuse Comment: denies current use - 10/05/2017 09:18 - Nikita PARRISH, Samantha LKeobctc20/17/2016 Risk Assessment: Denies Tobacco Use Comment: denies [...] results Radiology results ECG interpretation Condition Plan [place] [employer] Anesthesiologists (ASA) physical status classification: Class II. Anesthetic Preoperative Plan Anesthesia: Monitored anesthesia care. Anesthetic plan, risks, benefits, and alternatives discussed with the patient and/or family. Risks discussed: nausea, vomiting, headache, sore throat, dental injury, serious complications. Patient verbalized understanding. Communication: face to face with (patient 5 minutes, Pt. educated on the importance of smoking cessation.). [facility] Comment on above: Result Comment: Elec tronically Signed By: Kaden Benítez Jr, DO\.julian\Date and Time Signed: 10/08/17 12:25 EDT Coding Summary.on 10-07-2017 Coding Summary. CODING DATE: 018 FINAL [facility] STATUS: Home (Routine DC) PAYOR: Medicare APC DESCRIPTION 5571 Level 1 Imaging with Contrast 3999 Level 5 Type A ED Visits ADMIT [...] Germain Date Saved: 10/07/2017 08:55 am Normal [facility] Coding Summary. CODING DATE: 018 FINAL [facility] STATUS: Home (Routine DC) PAYOR: Medicare APC [...] Germain Date Saved: 10/07/2017 08:55 am Normal [facility] ED Clinical Summaryon 2017 ED Clinical Summary [place] [id number] ED Clinical SummaryPerson Information Name: SKIP HONG/[place] Age: 62 Years : 1955 12:00 AM Sex: Female Language:Mongolian PCP: Anitha Ramey MD Marital Status: Visit [...] PM 10/06/2017 11:57 PM 10/06/2017 11:57 PM ADDRESS:[address] [place] [id number] PHYS DOC NOTES: MEDICAL INFORMATION: Prescriptions Given:Home Meds Display acetaminophen (Tylenol Extra Strength 500 mg oral tablet) 1,000 mg = 2 tab(s), Oral, PRN as needed for pain, Refills(s) 0 acetaminophen-hydrocodone (Kasota 5/325 Tab) 1 tab(s), Oral, q6hr as [...] Adult Follow up:With: Address: When: Anitha Ramey [facility], [address] [place] [phone] Nano (1) In 3 days 10/09/2017 Comments: Current [...] home medications. Having trouble affording medications? Try [employer]! (This is not a hospital endorsed website, merely a recommendation based on my own personal experiences with [employer]) Questions? Contact me anytime. Kade Howe MD, ALEX DIAGNOSIS:1:Abdominal pain Normal [facility] ED Note-Physicianon 10-08-19 ED Note-Physician Basic Information Ti me Seen: Kade Howe MD 10/06/2017 19:47Chief Complaint abd and back pain since last thursday. hx of chronic pancreatitis. pt was seen here 10/05 in ED. also had xray done at [facility] today. Dr Roy doing endoscopy tomorrow. pt [...] medications Follow-up With When Contact Information Anitha Meche In 3 days 10/09/2017 EDT [address] [place] [address]- Business (1) Additional Instructions: Current Diagnosis - [...] home medications. Having trouble affording medications? Try [employer]! (This is not a hospital endorsed website, merely a recommendation based on my own personal experiences with [employer]) Questions? Contact me anytime. Kade Howe MD, [...] Tab, 400 mg= 2 tab(s), Oral, q4hr Kasota 5/325 Tab, 1 tab(s), Oral, q6hr, PRN [...] 90.9 fL (10/06/17 20:30:00) MCH: 30 pg (10/06/17 20:30:00) MCHC: 33 gm/dL (10/06/17 20:30:00) RDW: 13.7 % (10/06/17 20:30:00) Platelet: 337 E9/L (10/06/17 20:30:00) MPV: 7.6 fL (10/06/17 20:30:00) Neutro Auto: 72.4 % (10/06/17 20:30:00) Lymph Auto: 14.7 % (10/06/17 20:30:00) [place]co Auto: 11.9 % (10/06/17 20:30:00) Eos Auto: 0.7 % (10/06/17 20:30:00) Basophil Auto: 0.3 % (10/06/17 20:30:00) Neutro Absolute: 7.7 E9/L High (10/06/17 20:30:00) Lymph Absolute: 1.6 E9/L (10/06/17 20:30:00) [place] Absolute: 1.3 E9/L High (10/06/17 20:30:00) Eos Absolute: 0.1 E9/L (10/06/17 20:30:00) Basophil Absolute: 0 E9/L (10/06/17 20:30:00) Glucose Lvl: 111 mg/dL (10/06/17 20:30:00) BUN: 10 mg/dL (10/06/17 20:30:00) Creatinine: 0.9 mg/dL (10/06/17 20:30:00) eGFR: >60 (10/06/17 20:30:00) eGFR AA: >60 (10/06/17:30:00) BUN/Creat Ratio: 11 (10/06/17:30:00) Sodium Lvl: 138 mmol/L (10/06/17 20:30:00) Potassium Lvl: 3.8 mmol/L (10/06/17 20:30:00) Chloride: 105 mmol/L (10/06/17 20:30:00) CO2: 22 mmol/L (10/06/17 20:30:00) AGAP: 15 mEq/L (10/06/17 20:30:00) Calcium Lvl: 9.4 mg/dL (10/06/17 20:30:00) Alk Phos: 85 Int._Unit/L (10/06/17:30:00) ALT: 31 Int._Unit/L (10/06/17:30:00) AST: 33 Int._Unit/L (10/06/17:30:00) Total Protein: 7.6 gm/dL (10/06/17 20:30:00) Albumin Lvl: 4.4 gm/dL (10/06/17:30:00) Globulin: 3.2 gm/dL (10/06/17:30:) A/G Ratio: 1.4 (10/06/17:30:00) Bili Total: 0.4 mg/dL (10/06/17:30:00) Lipase Lvl: 22 unit/L (10/06/17:30:) Lactic Acid Lvl: 12.3 mg/dL (10/06/17:13:00) Magnesium: 2.1 mg/dL (10/06/17:30:) CK MB: 1 ng/mL (10/06/17:13:00) Myoglobin: 16 ng/mL (10/06/17:13:00) Troponin: <0.03 (10/06/17 21:13:00) Total CK: 70 Int._Unit/L (10/06/17:13:00) UA Spec Desc: Clean Catch (10/06/17 20:56:00) [...] 20:56:00)Diagnostic Results No qualifying data available. Normal [facility] Comment on above: Result Comment: [...] any discomfort you are experiencing:? Only take iyhc-mgz-glmuoci or prescription medicines as directed by your [...] 06/06/2014 Document Reviewed: 02/08/2014ExitCare? Patient Information ?2014 [employer]. This information is not intended to replace advice given to you by your health care provider. Make sure you discuss any questions you have with your health care provider. Normal [facility] ED Patient Summaryon 018 ED Patient Summary [place] [id number] Patient Discharge Instructions Person Information Name: SKIP HONG Age: 62 Years Date: 10/06/2017 7:31 PMDischarge Diagnosis: 1:Abdominal pain Primary Care Physician: Anitha Ramey MD Provider InformationPrimary Provider: Kade Howe MDAdvanced Agency Operator:None The exam and treatment you received in the Emergency Department were for an urgent problem and are not intended as complete care. It is important that you follow up with a doctor, nurse practitioner, or physician?s purchasing assistant for ongoing care. If your symptoms become worse or you do not improve as expected and you are unable to reach your usual health care provider, you should return to the Emergency Department. We are available 24 hours a day. SKIP HONG has been given the following list of patient education materials, prescriptions and follow-up instructions: Follow-up Instructions:With: Address: When: Anitha Ramey [address] [place] [address], [place] [address] [place] [address] Business (1) In 3 days 10/09/2017 Comments: Current [...] home medications. Having trouble affording medications? Try [employer]! (This is not a hospital endorsed website, merely a recommendation based on my own personal experiences with [employer]) Questions? Contact me anytime. Kade Howe MD, ALEX In the event that this physician does not participate in your insurance network, please consult with your insurance company to find a nearby participating provider. Patient Education Materials:Abdominal Pain, Adult A MESSAGE TO ALL PATIENTS REGARDING OPIOIDS PRESCRIPTION OPIOIDS: WHAT YOU NEED TO KNOW Prescription opioids can be used to help relieve fwyioesg-je-fuyvhv pain and are often prescribed following a [...] be struggling with addiction, tell your health care consultant and ask for guidance or call [facility]?S National Helpline at 4-103-093-TRYF. t Source: US Department of Health and Human Services/Center for Disease Control & Prevention [facility] Medications Given:Medication Dose Route No [...] Mouth as needed as needed for pain.acetaminophen-hydrocodone (K[place] 5/325 Tab) 1 Tabs By Mouth every [...] Pain.Comment: Pharmacy Information: Thank you for choosing [facility] Patient Education Materials: Abdominal PainMany things can [...] any discomfort you are experiencing:? Only take nrfp-keq-cxcibwz or prescription medicines as directed by your [...] 06/06/2014 Document Reviewed: 02/08/2014ExitCare? Patient Information ?2014 [employer]. This information is not intended to replace advice given to you by your health care provider. Make sure you discuss any questions you have with your health care provider.Shirin, SKIP HONG , have received the following patient education materials/instructions and have verbalized understanding: Patient Education Materials: Abdominal Pain, Adult Follow-up Instructions: With: Address: When: Anitha Ramey [facility], [address] [place] [phone] Business (1) In 3 days 10/09/2017 Comments: Current [...] home medications. Having trouble affording medications? Try [employer]! (This is not a hospital endorsed website, merely a recommendation based on my own personal experiences with [employer]) Questions? Contact me anytime. Kade Howe MD, ALEX Prescriptions: Patient Signature Date Clinician/Nurse Signature Date 10/06/17 23:57:53 Normal [facility] History and Physicalon 10-07 History and Physical Date: 09/29/2017 1:15 PMPatient Name: Skip Seals #: [id number]: FemaleDOB (age): 1955 (62)Provider: Maylin Duarte Physician: Anitha Ramey MD[address] [place] [phone] (phone) (fax)Chief Complaint: Abdominal, Bloating and gasHistory [...] epigastric pain, she was recently admitted at [facility], she had abdominalcomputed tomography scan which was [...] status unknownDrugs: NonePrinted on 10/02/2017 Skip Hong, 78654, 1955 Page 1 of 4Printed on 10/02/2017 Skip Hong, 98457, 1955Exercise: walking daily.Caffeine: tea and coffee.Marital Status: [...] Signs:BP(mmHg)Pulse(ppm)Rhythm Weight (lbs/oz) Height (ft/in) BMI Resp/min Xocf516/79 85 Regular 134 / 5 / 3 [...] mealsEGD (Upper Endoscopy) will be performed at [facility].Printed on 10/02/2017 Skip Hong, 96020, 1955 Page 2 of 4Printed on 10/02/2017 Skip Hong, 50499, 1955T Abdomen w/wo contrast (Pancreatic Protocol)Risk & Medical Necessity: Diagnosis and management options are Minimal. The amount of data reviewed and/orordered is Minimal/None. The level of risk is Minimal.Luli Roy MD Skip Hong, 67951, 1955 Page 3 of 4Printed on 10/02/2017 Skip Hong, 12737, 1955Printed on 10/02/2017 Skip Hong, 81396, 1955 Page 4 of 4Printed on 10/02/2017 Skip Hong, 55097, 1955no change [facility] Comment on above: Result Comment: Elec tronically Signed By: Luli Roy MD\.br\Date and Time Signed: 10/07/17 09:30 EDT Inpatient Patient Summaryon 10-07-2017 In[facility] Dis[facility] InstructionsPERSON INFORMATION Name: SKIP HONG PHYSICIANS Admitting Physician: Fermín [facility] Physician: Luli Roy MD PCP: Gagan Ramey MD Diagnosis: Abdominal pain Comment: PATIENT EDUCATION INFORMATIONInstructions:Esophagoga stroduodenoscopy, Care AfterMedication Leaflets:Follow up:With: Address: When: Luli Roy [facility], [address] [place], [place] [address] [place] [address] [facility] (1) Within 1 to 2 weeks Comments: Call for any problems. Keep scheduled appointment Type Location Start Finish State CT Abdomen (FT) FT.CAT SCAN 10/16/2017 10:00 AM 10/16/2017 10:45 AM Confirmed MEDICATION LISTComment: Normal [facility] Main OR PACU I Recordon 09-14 Main OR PACU I Record PACU Phase I Document Type FT Summary Primary Physician: Luli Roy MD Finalized Date/Time: 10/07/17 10:35:12 Pt. Name: SKIP HONG Jarod Buorgeois/Sex: 1955 Female Med Rec #: [id number] Physician: Luli Roy MD Financial #: [id number] Pt. Type: O Room/Bed: / Admit/Disch: 10/07/17 [...] I Outcomes Met? Yes Last Modified By: Siomara Arango RN 10/07/17 10:34:52 Post-Care Text: The [...] By: Siomara Arango RN 10/07/17 10:35 Normal [facility] Main OR Preoperative Recordo n 10-07-2017 Main OR Preoperative Record Holding Area Document Type FT Summary Primary Physician: Luli Roy MD Finalized Date/Time: 10/07/17 09:03:24 Pt. Name: SKIP HONG Jarod GonzalezB./Sex: 1955 Female Med Rec #: [id number] Physician: Luli Roy MD Financial #: [id number] Pt. Type: O Room/Bed: / Admit/Disch: 10/07/17 [...] clothing Complaints of Pain: Yes Pain Comment: 7-8 on lower back aching/sharp pain Operative Site n/a Availability Equipment Marking: Verified: Does Patient Smoke No Patient states Yes Comment - Adult friend- iain postop adult Supervision supervision available Case Cancelled in No Holding Area see comments below for reason Last Modified By: Marcela Weston RN 10/07/17 09:03:21 Finalized By: Marcela Weston RN Document Signatures Signed By: Marcela Weston RN 10/07/17 09:03 Normal [facility] Patient Education - Texton 0 10-07-2017 Patient [...] 05/18/2013 Document Reviewed: 05/18/2013ExitCare? Patient Information ?2014 [employer]. This information is not intended to replace advice given to you by your health care provider. Make sure you discuss any questions you have with your health care provider. Normal [facility] Progress Note-Nurseon 2017 Protein mass conc FRANCOIS [...] without any further questions/needs. DC home. Normal [facility] Protein mass conc Physician to call GI Dr Roy. Holding discharge home at this time. Holding DC as pt remains in pain. Normal [facility] Protein mass conc Physician at bedside speaking to pt of test results. Normal [facility] Progress Note-Physicianon Protein mass conc Patient: SKIP HONG Age: 62 years Sex: Female : 1955 Associated Diagnoses: None Author: Kaden Benítez Jr, DO Postoperative Information Post Operative Note: Post Anesthesia Care Unit. Anesthetic utilized: Monitored anesthesia care. Health Status Allergies: Allergic Reactions (Selected)Severity Not DocumentedAspirin- Anaphylactic reaction.Ciprofloxacin- Rash and rash.Dilaudid- Rash.Hydromet- Rash.Lodine- Rash.Morphine- Stomach pain.Percocet 5/325- Rash.Phenergan- Abdominal spasms.Stadol- Rash.Tape- Rash. Problem list: All ProblemsPancreatitis, acute / SNOMED CT 923939668 / ConfirmedFrozen shoulder / SNOMED CT 7792196096 / ConfirmedRIGHTArthritis / SNOMED CT 3627816 / Confirmedneck and lower backChronic colitis / SNOMED CT 69303135 / ConfirmedC. difficile diarrhea / SNOMED CT 6456790793 / [facility] 3 years agoRSD (reflex sympathetic dystrophy) / SNOMED CT 7255291054 / ConfirmedPancreatic cyst / SNOMED CT 68215516 / ConfirmedDiverticulosis / SNOMED CT 5814390890 / ConfirmedFibromyalgia / SNOMED CT 08411883 / ConfirmedAcid reflux / SNOMED CT 297809220 / ConfirmedH/O pleurisy / SNOMED CT 226959586 / ConfirmedIBS (irritable bowel syndrome) / SNOMED CT 01949898 / ConfirmedMigraines / SNOMED CT 89922153 / ConfirmedRare disorder causing involuntary movements and spasms / SNOMED CT 497545524 / ConfirmedesophagealLupus / SNOMED CT 61134907 / ConfirmedThoracic outlet syndrome / SNOMED CT 817940596 / ConfirmedbilateralResolved: Endometriosis / SNOMED CT [id number]-1R28Z2D1A6 R0Mysitots: Fibromyalgia / SNOMED CT D1Y009T5-F75B-[id number] C2Gitbnydz: Hyperlipidemia / SNOMED CT 26814248Txoegehy: IBS (irritable bowel syndrome) / SNOMED CT [id number]-81849219VF 4CResolved: Pancreatitis / SNOMED CT 130321339Asiexjll: RSD upper limb / SNOMED CT [id number] J1Mdtsxvqr: SLE (systemic lupus erythematosus) / SNOMED CT [id number] CFResolved: Thoracic outlet syndrome / SNOMED CT [id number] 20 Physical Examination Vital Signs 10/07/2017 09:50 [...] hrs) Last Charted Minimum MaximumTemp 36.5 (OCT 07 09:38) L 36.1 (OCT 07 09:00) 36.5 (OCT 07 09:38)Heart Rate 63 (OCT 07 09:50) 63 (OCT 07 09:50) 80 (OCT 07 09:43)Resp Rate 18 (OCT 07 09:50) 17 (OCT 07 09:00) 19 (OCT 07 09:45)SBP 96 (OCT 07 09:50) L 74 (OCT 07:38) 140 (OCT 07 09:29)DBP L 59 (OCT [...] vomiting. Plan Transfer/ Discharge: Condition stable. Normal [facility] Comment on above: Result Comment: Elec tronically Signed By: Jeyson Cordova DO, Kaden Howell\.julian\Date and Time Signed: 10/07/17 10:04 EDT Auto Diffon 10-06-2017 Basophils Auto #/vol (Bld) 0.3 % Normal 0.0-2.0 [facility] Comment on above: Order Comment: Order Added by Discern Expert. Performed By: #### 2 231446, 3588731, 6923747, 0684096, 5225262, 7131880, 94000957 ####[facility] [address] [place] [address] Basophils/Leukocy jarrett Auto Pure number fraction (Bld) 0.0 E9/L Normal 0.0-0.2 [facility] Comment on above: Order Comment: Order Added by Discern Expert. Performed By: #### 2 602411, 6861067, 3319665, 8285488, 0932273, 4284326, 77340820 ####[facility] [address] [place] [address] Eosinophils/100 WBC Auto (Bld) 0.7 % Normal 0.0-8.0 [facility] Comment on above: Order Comment: Order Added by Discern Expert. Performed By: #### 2 315271, 9705195, 5789937, 0424323, 3491748, 0400823, 45464685 ####[facility] [address] [place] [address] Eosinophils/Leuko cytes Auto Pure number fraction (Bld) 0.1 E9/L Normal 0.0-0.5 [facility] Comment on above: Order Comment: Order Added by Discern Expert. Performed By: #### 2 758101, 6635666, 4204925, 2584367, 7196854, 7995792, 36785030 ####[facility] [address] [place] [address] Lymphocytes/100 WBC Auto (Bld) 14.7 % Normal 14.0-50.0 [facility] Comment on above: Order Comment: Order Added by Discern Expert. Performed By: #### 2 339986, 8923676, 7966620, 2405840, 6783084, 6226478, 12001667 ####[place] [address] [place] [address] Lymphocytes/Leuko cytes Auto Pure number fraction (Bld) 1.6 E9/L Normal 1.0-4.0 [facility] Comment on above: Order Comment: Order Added by Discern Expert. Performed By: #### 2 042922, 6496344, 6340969, 1383511, 8619006, 5440304, 57599414 ####[place] [address] [place] [address] Monocytes/100 WBC Auto (Bld) 11.9 % Normal 4.0-14.0 [facility] Comment on above: Order Comment: Order Added by Discern Expert. Performed By: #### 2 409788, 1808951, 0998997, 1231925, 2777091, 5250913, 46889220 ####[address] [address] Monocytes/Leukocy jarrett Auto Pure number fraction (Bld) 1.3 E9/L High 0.2-1.0 [facility] Comment on above: Order Comment: Order Added by Discern Expert. Performed By: #### 2 061225, 3738282, 6649569, 4722929, 0062560, 3378833, 23229353 ####[place] [address] [place] [address] Neutrophils/100 WBC Auto (Bld) 72.4 % Normal 36.0-75.0 [facility] Comment on above: Order Comment: Order Added by Discern Expert. Performed By: #### 2 275589, 6417384, 1594881, 3474605, 6899905, 9822986, 12345390 ####[place] [address] [place] [address] Neutrophils/Leuko cytes Auto Pure number fraction (Bld) 7.7 E9/L High 2.0-7.5 [facility] Comment on above: Order Comment: Order Added by Discern Expert. Performed By: #### 2 452075, 1917148, 8398616, 1017048, 0702928, 1320708, 20039188 ####[place] [address] CBC w/ Auto Diffon 8 Erythrocyte distribution width Auto Ratio (RBC) 13.7 % Normal 10.9-14.2 [facility] Comment on above: Performed By: #### 2 307545, 8964985, 2543592, 6106077, 9095858, 3587871, 68483051 ####[address] [address] Hematocrit Auto Volume Fraction (Bld) 44.0 % Normal 34.0-46.0 [facility] Comment on above: Performed By: #### 2 739280, 3012036, 1645393, 4230269, 6606782, 4900270, 40666927 ####[place] [address] Hemoglobin mass conc (Bld) 14.5 g/dL Normal 12.0-16.0 [facility] Comment on above: Performed By: #### 2 248393, 8306082, 2213673, 2912856, 5575512, 8057715, 40155836 ####[address] [address] MCH Auto Entitic mass (RBC) 30.0 pg Normal 27.0-34.0 [facility] Comment on above: Performed By: #### 2 822237, 3665711, 2379145, 9993949, 3480912, 8402542, 16578609 ####[address] [address] MCHC Auto mass conc (RBC) 33.0 g/dL Normal 31.4-39.3 [facility] Comment on above: Performed By: #### 2 229021, 8920825, 5566016, 8127294, 8691053, 0651121, 78667799 ####[address] [place] [address] MCV Auto Entitic volume (RBC) 90.9 fL Normal 80.0-100.0 [facility] Comment on above: Performed By: #### 2 627305, 9719871, 5266387, 7565636, 3937586, 6908858, 51362504 ####[facility] [address] [place] [address] Platelet mean volume Auto Entitic volume (Bld) 7.6 fL Normal 6.4-10.8 [facility] Comment on above: Performed By: #### 2 762672, 0721115, 5762624, 3767770, 8475399, 9350615, 98410261 ####[place] [address] Platelets Auto #/vol (Bld) 337.0 E9/L Normal 150.0-500. 0 [facility] Comment on above: Performed By: #### 2 186206, 7024453, 9324270, 5764309, 7536679, 2737084, 94353108 ####[address] [address] RBC Auto #/vol (Bld) 4.8 E12/L Normal 4.3-5.9 [facility] Comment on above: Performed By: #### 2 280669, 4465574, 9530166, 2328929, 0548311, 6579781, 77772435 ####[place] [address] WBC corrected for nucl RBC Auto #/vol (Bld) 10.7 E9/L Normal 4.0-11.0 [facility] Comment on above: Performed By: #### 2 206556, 2676163, 2102072, 1882910, 9300544, 3975451, 05264019 ####[address] [address] CMPon 10-06-2017 Albumin mass conc 1.4 g/dL Normal 1.1-2.2 [facility] Comment on above: Performed By: #### 2 349154, 0530680, 0885847, 6490188, 7888629, 6522054, 96472104 ####[facility] [address] [place] [address] Albumin mass conc 4.4 g/dL Normal 3.3-5.0 [facility] Comment on above: Performed By: #### 2 576585, 8902631, 9627239, 2276155, 8937466, 6732185, 58935277 ####[facility] [address] [place] [address] ALP enzyme act/vol 85 Int._Unit/L Normal 21-98 [facility] Comment on above: Performed By: #### 2 809852, 6053993, 5287463, 7884367, 4272890, 2323892, 35802072 ####[address] [address] ALT No additional P-5'-P enzyme act/vol 31 Int._Unit/L Normal 6-46 [facility] Comment on above: Performed By: #### 2 061905, 1034649, 7550889, 3849458, 9192117, 8699741, 90313960 ####[facility] [address] [place] [address] AST enzyme act/vol 33 Int._Unit/L Normal 5-43 [facility] Comment on above: Performed By: #### 2 089277, 7157084, 8488435, 5276042, 6607534, 9537996, 52528991 ####[facility] [address] [place] [address] Bilirubin mass conc 0.4 mg/dL Normal 0.0-1.1 [facility] Comment on above: Performed By: #### 2 134039, 1897515, 0829147, 8164275, 0554917, 0685201, 15982013 ####[facility] [address] [place] [address] Creatinine mass conc 0.9 mg/dL Normal 0.5-1.3 [facility] Comment on above: Performed By: #### 2 404086, 1828814, 1367710, 3143268, 7346503, 8457876, 45962855 ####[facility] [address] [place] [address] Globulin Calculated mass conc (S) 3.2 g/dL Normal 1.4-4.0 [facility] Comment on above: Performed By: #### 2 344876, 5296910, 2062002, 5619845, 1354987, 3838950, 29253364 ####[facility] [address] [place] [address] Protein mass conc 7.6 g/dL Normal 6.0-7.8 [facility] Comment on above: Performed By: #### 2 134287, 9545538, 1871791, 4450408, 5045604, 2427950, 50523820 ####[facility] [address] [place] [address] Urea nitrogen mass conc 10 mg/dL Normal 5-21 [facility] Comment on above: Performed By: #### 2 040115, 6715129, 5043543, 3914661, 2324699, 3216714, 00013970 ####[facility] [address] [place] [address] Urea nitrogen/Creatini ne mass ratio 11 No Units Normal 10-20 [facility] Comment on above: Performed By: #### 2 915750, 0257651, 3496919, 1419042, 7182233, 1929665, 26384633 ####[facility] [address] [place] [address] Anion gap 3 molar conc 15 mmol/L Normal 6-16 [facility] Comment on above: Performed By: #### 2 303115, 5438671, 5614563, 2822768, 2239601, 1955196, 88024146 ####[facility] [address] [place] [address] Calcium mass conc 9.4 mg/dL Normal 8.9-11.1 [facility] Comment on above: Performed By: #### 2 358489, 8108293, 0696706, 5737043, 6717103, 7551858, 56159507 ####[facility] [address] [place] [address] Chloride molar conc 105 mmol/L Normal 101-111 [facility] Comment on above: Performed By: #### 2 058712, 7735607, 6547570, 5311767, 5169740, 0816805, 96438669 ####[facility] [address] [place] [address] CO2 molar conc 22 mmol/L Normal 21-31 [facility] Comment on above: Performed By: #### 2 539540, 7972254, 7985072, 0812090, 0146230, 5230508, 38648253 ####[facility] [address] [place] [address] Glucose mass conc 111 mg/dL Normal 55-199 [facility] Comment on above: Result Comment: If t his glucose result represents a fasting glucose, interpretation should refer to the following reference range: 55-99 mg/dL Performed By: #### 2 993009, 0926449, 5556047, 4648919, 5692583, 3312008, 89544817 ####[facility] [address] [place] [address] Potassium molar conc 3.8 mmol/L Normal 3.5-5.3 [facility] Comment on above: Performed By: #### 2 046443, 7921610, 1552003, 9584003, 8306608, 9602682, 21781656 ####[facility] [address] [place] [address] Sodium molar conc 138 mmol/L Normal 135-145 [facility] Comment on above: Performed By: #### 2 849661, 1270470, 2129790, 4776249, 8143049, 0156598, 22403381 ####[facility] [address] [place] [address] Cardiac 0 Hr.on 10-06-2017 Creatine kinase.MB 1.0 ng/mL Normal 0.3-4.9 [facility] Comment on above: Performed By: #### 2 517710, 5529860, 5472192, 0064968, 7403649, 2546774, 99564768 ####[facility] [address] [place] [address] Myoglobin mass conc 16 ng/mL Normal <=69 [facility] Comment on above: Performed By: #### 2 143970, 0061503, 4213904, 2674835, 4382733, 6222421, 19172057 ####[facility] [address] [place] [address] Troponin I.cardiac mass conc ng/mL Normal <=0.03 [facility] Comment on above: Result Comment: New Troponin Assay 10/27/13ROC [place] Cutoff value > or = 0.03 ng/mL in conjunction with clinical conditions of myocardial infarction.([email or web address]) Performed By: #### 2 352641, 1604226, 6228739, 9189547, 2548108, 0746551, 04076535 ####[facility] [address] [place] [address] CK enzyme act/vol 70 Int._Unit/L Normal 14-261 [facility] Comment on above: Performed By: #### 2 566871, 5063022, 4520935, 6555577, 1144841, 2371367, 90347592 ####[facility] [address] [place] [address] Coding Summary.on 10-06-2017 Coding Summary. CODING DATE: 018 FINAL [facility] STATUS: Home (Routine DC) PAYOR: Medicare APC DESCRIPTION 5571 Level 1 Imaging with Contrast 0104 Level 4 Type A ED Visits 5693 [...] Germain Date Saved: 10/06/2017 09:07 am Normal [facility] Coding Summary. CODING DATE: 018 FINAL [facility] STATUS: Home (Routine DC) PAYOR: Medicare APC [...] Germain Date Saved: 10/06/2017 09:06 am Normal [facility] ED Note-Physicianon 10-07-19 ED Note-Physician Basic Information Ti me Seen: Carley PARISI, Kade Esrtada. 10/06/2017 19:47Chief Complaint abd and back pain since last thursday. hx of chronic pancreatitis. pt was seen here 10/05 in ED. also had xray done at [facility] today. Dr Roy doing endoscopy tomorrow. pt [...] available.Diagnostic Results No qualifying data available. Normal [facility] Comment on above: Result Comment: Elec tronically Signed By: Carley PARISI, Kade Sloan\.br\Date and Time Signed: 10/06/17 20:26 EDT Lactic Acidon 10-06-2017 Lactate mass conc 12.3 mg/dL Normal 4.5-19.8 [facility] Comment on above: Performed By: #### 2 204458, 1964430, 7328824, 1624492, 7395061, 3822205, 61024859 ####[facility] [address] [place] [address] Lipase Levelon 10-06-2017 Lipase enzyme act/vol 22 unit/L Normal 13-58 [facility] Comment on above: Performed By: #### 2 798668, 2715605, 6728873, 5284330, 4687212, 3312311, 61339842 ####[facility] [address] [place] [address] Magnesiumon 10-06-2017 Magnesium mass conc 2.1 mg/dL Normal 1.3-2.4 [facility] Comment on above: Performed By: #### 2 791758, 7661779, 7085304, 9799193, 4208810, 0866337, 97892560 ####[facility] [address] [place] [address] Progress Note-Nurseon 2017 Protein mass conc Pt to CT scan now. Normal [facility] Protein mass conc Pt up to restroom wi th significant other at this time. Normal [facility] Protein mass conc Pt resting in bed, U A sent to lab. Pts significant other at bedside. Pt aware of plan, waiting to go to CT and waiting for test results. Call light in reach. Normal [facility] Protein mass conc Physician at bedside assessing patient at this time. Normal [facility] UA With Cult Reflexon 2017 Bilirubin Ql (U) Negative Normal Negative [facility] Comment on above: Performed By: #### 2 628105, 1710653, 3945335, 7455622, 1216107, 1243444, 71569374 ####[facility] [address] [place] [address] Clarity Nom (U) CLEAR Normal Clear [facility] Comment on above: Performed By: #### 2 439361, 6906216, 5883313, 3129119, 7244590, 6748983, 51240183 ####[facility] [address] [place] [address] Color Auto Nom (U) YELLOW Normal Yellow [facility] Comment on above: Performed By: #### 2 156076, 1854974, 9069045, 2701496, 3469465, 1488738, 44461360 ####[facility] [address] [place] [address] Epithelial cells.squamous LM.HPF #/area (Urine sed) 0-2 Normal 0-2 [facility] Comment on above: Performed By: #### 2 554520, 0560020, 7810122, 8121893, 7772076, 3973610, 79526534 ####[facility] [address] [place] [address] Glucose Test strip mass conc (U) Negative Normal Negative [facility] Comment on above: Performed By: #### 2 676050, 7363333, 9457778, 4491825, 9407212, 4747305, 00851270 ####[facility] [address] [place] [address] Hemoglobin Test strip Ql (U) Negative Normal Negative [facility] Comment on above: Performed By: #### 2 955711, 6225317, 1415019, 2372738, 4039460, 1181097, 30200909 ####[facility] [address] [place] [address] Ketones mass conc (U) Negative Normal Negative [facility] Comment on above: Performed By: #### 2 024351, 3199316, 7725917, 1387511, 2748249, 3899445, 58304272 ####[facility] [address] [place] [address] [place].plasma/Li thium.RBC mass ratio (Bld) 0-3 Normal 0-3 [facility] Comment on above: Performed By: #### 2 978586, 4537412, 1865070, 5502981, 2495954, 9836340, 77180602 ####[facility] [address] [place] [address] Nitrite Test strip Ql (U) Negative Normal Negative [facility] Comment on above: Performed By: #### 2 031286, 6443461, 7413063, 0750447, 1878226, 7916272, 82383147 ####[facility] [address] [place] [address] pH Test strip (U) 5.5 [pH] Invalid Interpretation Code 5.0-9.0 [facility] Comment on above: Performed By: #### 2 310639, 9176862, 2244256, 8013621, 4894108, 9608909, 99768023 ####[facility] [address] [place] [address] Protein mass conc (U) Negative Normal Negative [facility] Comment on above: Performed By: #### 2 881516, 7254321, 9889606, 6257845, 3397024, 5108022, 02255488 ####[facility] [address] [place] [address] Specific gravity Relative Density (U) <=1.005 Invalid Interpretation Code 1.005-1.03 0 [facility] Comment on above: Performed By: #### 2 768045, 2461887, 4448245, 7579969, 4757209, 6731868, 78580124 ####[place] [address] UA Spec Desc Clean Catch Normal [facility] Comment on above: Performed By: #### 2 352517, 3745770, 2939965, 9947112, 5869037, 1331101, 70315219 ####[facility] [address] [place], [place] [address] Urobilinogen Test strip Qn (U) 0.2 {Antonina'U}/dL Normal 0.0-1.0 [facility] Comment on above: Performed By: #### 2 398658, 5904742, 4717448, 8708311, 0466042, 2572183, 94095323 ####[place] [address] WBC Auto Ql (U) TRACE Abnormal Negative [facility] Comment on above: Performed By: #### 2 845644, 7618074, 5286272, 3898843, 4120162, 0562460, 88116323 ####[address] [address] WBC LM.HPF #/area (Urine sed) 0-5 Normal 0-5 [facility] Comment on above: Performed By: #### 2 767834, 8817378, 3303183, 8794618, 4146473, 7071009, 28122549 ####[facility] [address] [place] [address] eGFRon 10-06-2017 GFR/1.73 sq M predicted among blacks MDRD vol rate/area (S/P/Bld) mL/min/{1.73_m2} Normal >=59 [facility] Comment on above: Order Comment: Order added by Discern Expert. Result Comment: eGFR is race adjusted. AA=. Performed By: #### 2 320565, 7949977, 7505034, 7825244, 7206941, 6134042, 47586866 ####[facility] [address] [place] [address] GFR/1.73 sq M predicted among non-blacks MDRD vol rate/area (S/P/Bld) mL/min/{1.73_m2} Normal >=59 [facility] Comment on above: Order Comment: Order added by Endy Expert. Result Comment: Meal Attendant seng kidney disease could be indicated at eGFR's of less than 60 mL/min/1.73m2. Kidney failure is indicated at less than 15 mL/min/1.73m2. Performed By: #### 2 177491, 8408662, 5829377, 1040344, 8886314, 2456480, 11656935 ####[facility] [address] [place] [address] Auto Diffon 10-05-2017 Basophils Auto #/vol (Bld) 0.4 % Normal 0.0-2.0 [facility] Comment on above: Order Comment: Order Added by Discern Expert. Performed By: #### 2 074158, 1425569, 1339587, 6837157, 4216157, 7066011, 03821618 ####[facility] [address] [place] [address] Basophils/Leukocy jarrett Auto Pure number fraction (Bld) 0.0 E9/L Normal 0.0-0.2 [facility] Comment on above: Order Comment: Order Added by Discern Expert. Performed By: #### 2 136549, 9487437, 4232340, 3280276, 5771965, 1820280, 80037356 ####[facility] [address] [place] [address] Eosinophils/100 WBC Auto (Bld) 1.3 % Normal 0.0-8.0 [facility] Comment on above: Order Comment: Order Added by Discern Expert. Performed By: #### 2 711170, 9895908, 7638131, 2048369, 4529939, 3475846, 22697630 ####[facility] [address] [place] [address] Eosinophils/Leuko cytes Auto Pure number fraction (Bld) 0.1 E9/L Normal 0.0-0.5 [facility] Comment on above: Order Comment: Order Added by Discern Expert. Performed By: #### 2 330099, 9255912, 1125256, 9391646, 0201391, 6419994, 44813451 ####[address] [address] Lymphocytes/100 WBC Auto (Bld) 19.8 % Normal 14.0-50.0 [facility] Comment on above: Order Comment: Order Added by Discern Expert. Performed By: #### 2 557443, 9445074, 4876175, 9758428, 4926342, 3417485, 97474721 ####[place] [address] [place] [address] Lymphocytes/Leuko cytes Auto Pure number fraction (Bld) 1.5 E9/L Normal 1.0-4.0 [facility] Comment on above: Order Comment: Order Added by Discern Expert. Performed By: #### 2 802813, 6530400, 9860345, 9114222, 1098807, 5372641, 53855157 ####[place] [address] [place] [address] Monocytes/100 WBC Auto (Bld) 11.5 % Normal 4.0-14.0 [facility] Comment on above: Order Comment: Order Added by Discern Expert. Performed By: #### 2 101863, 9121885, 2220307, 3677018, 0928790, 7563486, 73545264 ####[facility] [address] [place] [address] Monocytes/Leukocy jarrett Auto Pure number fraction (Bld) 0.9 E9/L Normal 0.2-1.0 [facility] Comment on above: Order Comment: Order Added by Discern Expert. Performed By: #### 2 591375, 0538369, 1067124, 7460586, 8918419, 2127611, 68825667 ####[place] [address] [place] [address] Neutrophils/100 WBC Auto (Bld) 67.0 % Normal 36.0-75.0 [facility] Comment on above: Order Comment: Order Added by Discern Expert. Performed By: #### 2 152277, 6588412, 8584099, 6479207, 3439770, 8222951, 24175399 ####[place] [address] [place] [address] Neutrophils/Leuko cytes Auto Pure number fraction (Bld) 4.9 E9/L Normal 2.0-7.5 [facility] Comment on above: Order Comment: Order Added by Discern Expert. Performed By: #### 2 869162, 2812313, 2612552, 1207466, 4567950, 9099578, 75584723 ####[place] [address] [place] [address] BMPon 10-05-2017 Creatinine mass conc 0.7 mg/dL Normal 0.5-1.3 [facility] Comment on above: Performed By: #### 2 469800, 5748938, 9216047, 8385595, 9642929, 2544746, 70031310 ####[place] [address] [place] [address] Urea nitrogen mass conc 8 mg/dL Normal 5-21 [facility] Comment on above: Performed By: #### 2 027835, 5117944, 8977641, 8857276, 6807469, 7666961, 43586762 ####[place] [address] [place] [address] Urea nitrogen/Creatini ne mass ratio 11 No Units Normal 10-20 [facility] Comment on above: Performed By: #### 2 887701, 6153586, 8921138, 1335249, 8853810, 9506089, 60559018 ####[facility] [address] [place] [address] Anion gap 3 molar conc 10 mmol/L Normal 6-16 [facility] Comment on above: Performed By: #### 2 576154, 3620917, 4040246, 6291762, 4192057, 9116955, 78634256 ####[facility] [address] [place] [address] Calcium mass conc 9.3 mg/dL Normal 8.9-11.1 [facility] Comment on above: Performed By: #### 2 656041, 0491392, 0356292, 0387212, 1147485, 4600811, 69788421 ####[facility] [address] [place] [address] Chloride molar conc 107 mmol/L Normal 101-111 [facility] Comment on above: Performed By: #### 2 251880, 2551731, 8849915, 2348632, 2286514, 4087971, 06171086 ####[facility] [address] [place] [address] CO2 molar conc 27 mmol/L Normal 21-31 [facility] Comment on above: Performed By: #### 2 167154, 3278290, 2070353, 9636849, 0704623, 5870163, 31603897 ####[facility] [address] [place] [address] Glucose mass conc 92 mg/dL Normal 55-199 [facility] Comment on above: Result Comment: If t his glucose result represents a fasting glucose, interpretation should refer to the following reference range: 55-99 mg/dL Performed By: #### 2 747466, 3228238, 0374821, 0452744, 6235353, 4668219, 20661485 ####[facility] [address] [place] [address] Potassium molar conc 3.6 mmol/L Normal 3.5-5.3 [facility] Comment on above: Performed By: #### 2 349729, 1181005, 9454800, 0894874, 3738705, 4987583, 21883120 ####[facility] [address] [place] [address] Sodium molar conc 140 mmol/L Normal 135-145 [facility] Comment on above: Performed By: #### 2 723680, 3190093, 6018552, 0651338, 1938289, 4701478, 25698591 ####[facility] [address] [place] [address] CBC w/ Auto Diffon 8 Erythrocyte distribution width Auto Ratio (RBC) 13.8 % Normal 10.9-14.2 [facility] Comment on above: Performed By: #### 2 519583, 6747238, 2773733, 4421568, 5890560, 4745264, 91013544 ####[facility] [address] [place] [address] Hematocrit Auto Volume Fraction (Bld) 40.8 % Normal 34.0-46.0 [facility] Comment on above: Performed By: #### 2 417831, 5543014, 1826019, 8114577, 2423057, 4357668, 86509712 ####[facility] [address] [place] [address] Hemoglobin mass conc (Bld) 13.7 g/dL Normal 12.0-16.0 [facility] Comment on above: Performed By: #### 2 230613, 9226289, 8435573, 9261432, 8782209, 7650030, 91705424 ####[facility] [address] [place] [address] MCH Auto Entitic mass (RBC) 30.3 pg Normal 27.0-34.0 [facility] Comment on above: Performed By: #### 2 547842, 3367644, 0624795, 8229317, 1534609, 1636796, 81446374 ####[place] [address]57 MCHC Auto mass conc (RBC) 33.6 g/dL Normal 31.4-39.3 [facility] Comment on above: Performed By: #### 2 813865, 1759766, 3240462, 3811855, 9723268, 1090378, 70525168 ####[place] [address] MCV Auto Entitic volume (RBC) 90.1 fL Normal 80.0-100.0 [facility] Comment on above: Performed By: #### 2 475852, 5304474, 0562446, 8045392, 8742107, 5117581, 55503348 ####[place] [address] Platelet mean volume Auto Entitic volume (Bld) 7.5 fL Normal 6.4-10.8 [facility] Comment on above: Performed By: #### 2 737839, 1791000, 4615313, 6736348, 5904278, 0926247, 45269761 ####[place] [address] Platelets Auto #/vol (Bld) 280.0 E9/L Normal 150.0-500. 0 [facility] Comment on above: Performed By: #### 2 368552, 2800767, 9891663, 5111104, 0018957, 7077497, 03133562 ####[place] [address]57 RBC Auto #/vol (Bld) 4.5 E12/L Normal 4.3-5.9 [facility] Comment on above: Performed By: #### 2 564341, 9036977, 3114478, 2765901, 7793371, 4457572, 68557793 ####[place] [address] WBC corrected for nucl RBC Auto #/vol (Bld) 7.4 E9/L Normal 4.0-11.0 [facility] Comment on above: Performed By: #### 2 715769, 6021550, 6082907, 6231486, 5972490, 9318405, 30751608 ####[facility] [address] [place] [address] CT Abdomen/Pelvis w/ Contras ton 10-05-2017 CT [...] Signature): 10/05/2017 11:15 am Signed by: Andrea Braajas MD Transcribed by: K[place]ST[place] Technologist: Travis GreenGFR (mL/min/1/73m2) >60Contrast: Isovue 300Contrast amount in ml's: 100 Normal [facility] ED Clinical Summaryon 2017 ED Clinical Summary [place] [id number] ED Clinical SummaryPerson Information Name: SKIP HONG/DorianNati Age: 62 Years : 1955 12:00 AM Sex: Female Language:Mongolian PCP: Anitha Ramey MD Marital Status: Visit [...] PM 10/05/2017 1:10 PM 10/05/2017 1:10 PM ADDRESS:[address] [place] [id number] PHYS DOC NOTES: MEDICAL INFORMATION: Prescriptions Given:Prescription Display polyethylene glycol 3350 (Miralax 3350 17 gram packet) 17 gram, Oral, Daily, # 170 gram, Refills(s) 0 PATIENT EDUCATION INFORMATION: Instructions:Constipation, Adult; Abdominal Pain, Adult Follow up:With: Address: When: [facility], [address] [place] [address] Business (1) In 3 days 10/08/2017 DIAGNOSIS:Abdominal pain; Constipation Normal [facility] ED Note-Physicianon 10-06-19 18 ED Note-Physician Basic Information Ti me Seen: aCs Lam PA-C 10/05/2017 08:27Chief Complaint 6 days [...] fever or chills. She is also on [place] and Zanaflex without improvement. No other prior [...] Luli Roy In 3 days 10/08/2017 EDT [facility] [address] [place] [address]- Business (1) Additional Instructions: Patient Education Constipation, Adult Abdominal Pain, AdultAttestation Patient seen and evaluated by the physician purchasing assistant. Attending physician was present in the emergency department and supervised care. This report was transcribed using voice recognition software. Every effort was made to ensure accuracy, however, inadvertently computerized marketing strategy manager mistakes may be present.Problem List/Past Medical History [...] 08:50:00) Lymph Auto: 19.8 % (10/05/17 08:50:00) [place] Auto: 11.5 % (10/05/17 08:50:00) Eos Auto: 1.3 % (10/05/17 08:50:00) Basophil Auto: 0.4 % (10/05/17 08:50:00) Neutro Absolute: 4.9 E9/L (10/05/17 08:50:00) Lymph Absolute: 1.5 E9/L (10/05/17 08:50:00) [place] Absolute: 0.9 E9/L (10/05/17 08:50:00) Eos Absolute: [...] ml?s: 100 Signed By: Andrea Barajas MD Normal [facility] Comment on above: Result Comment: Elec tronically Signed By: Cas Lam PA-C\.br\Date and Time Signed: 10/05/17 12:14 EDT\.br\Electronically Co-Signed By: Iain Salcido DO\.br\Date and Time Co-Signed: 10/05/17 12:20 EDT ED Patient Summaryon 018 ED Patient Summary [address] [address] Patient Discharge Instructions Person Information Name: SKIP HONG Age: 62 Years Date: 10/05/2017 8:17 AMDischarge Diagnosis: Abdominal pain; Constipation Primary Care Physician: Anitha Ramey MD Provider InformationPrimary Provider: Sandy Salcido DO Agency Operator:Cas Lam PA-C The exam and treatment you received in the Emergency Department were for an urgent problem and are not intended as complete care. It is important that you follow up with a doctor, nurse practitioner, or physician?s purchasing assistant for ongoing care. If your symptoms become worse or you do not improve as expected and you are unable to reach your usual health care provider, you should return to the Emergency Department. We are available 24 hours a day. SKIP HONG has been given the following list of patient education materials, prescriptions and follow-up instructions: Follow-up Instructions:With: Address: When: [facility], [address] [place] [address] [place] [address] Business (1) In 3 days 10/08/2017 In the event that this physician does not participate in your insurance network, please consult with your insurance company to find a nearby participating provider. Patient Education Materials:Constipation, Adult; Abdominal Pain, Adult A MESSAGE TO ALL PATIENTS REGARDING OPIOIDS PRESCRIPTION OPIOIDS: WHAT YOU NEED TO KNOW Prescription opioids can be used to help relieve rkieipqu-hx-gmpqts pain and are often prescribed following a [...] be struggling with addiction, tell your health care consultant and ask for guidance or call [facility]?S [employer] Helpline at [phone]-NDMS. z Source: [place] Department of Health and Human Services/Center for Disease Control & Prevention [facility] Medications Given:Medication Dose Route Sodium [...] allyn gilbert T ninfa you for choosing [facility] Patient Education Materials: ConstipationConstipation is when a [...] your health care provider may recommend taking wfsv-wdb-tprpmky laxative medicines to help you have bowel movements. Prescription medicines may be prescribed if cisi-pvi-vbijigt medicines do not work. HOME CARE INSTRUCTIONS? Eat foods that have a lot of fiber, such as fruits, vegetables, whole grains, and beans.? Limit foods high in fat and processed sugars, such as jamaican fries, hamburgers, cookies, candies, and soda. ?? [...] Do not hold it. ?? Only take euov-mrd-cepjnku or prescription medicines as directed by your [...] 06/06/2014 Document Reviewed: 03/13/2014ExitCare? Patient Information ?2015 [employer]. This information is not intended to replace [...] any discomfort you are experiencing:? Only take bgvm-iwb-oddnhvk or prescription medicines as directed by your [...] 06/06/2014 Document Reviewed: 02/08/2014ExitCare? Patient Information ?2014 [employer]. This information is not intended to replace advice given to you by your health care provider. Make sure you discuss any questions you have with your health care provider.ABDIAS Carpio JEAN M , have received the following patient education materials/instructions and have verbalized understanding: Patient Education Materials: Constipation, Adult; Abdominal Pain, Adult Follow-up Instructions: With: Address: When: [facility], [address] [place] [address] Business (1) In 3 days 10/08/2017 Prescriptions: [polyethylene glycol 3350 (Miralax 3350 17 gram packet)] Patient Signature Date Clinician/Nurse Signature Date 10/05/17 13:10:13 Normal [facility] Hep Func Panelon 10-05-2017 Bilirubin.indirec t [Mass or Moles/volume] in Serum or Plasma UTC Abnormal 0.1-0.9 [facility] Comment on above: Result Comment: Resu lt verified by Discern Rule. Performed result UTC (Unable to Calculate) was sent as an Alpha code due the inability to calculate a valid numeric value. Performed By: #### 2 066567, 4052514, 6769587, 2858180, 8045889, 0665839, 33296032 ####[facility] [address] [place] [address] Albumin mass conc 3.9 g/dL Normal 3.3-5.0 [facility] Comment on above: Performed By: #### 2 610552, 9353781, 2268306, 6832647, 5106325, 6964026, 22362900 ####[facility] [address] [place] [address] Albumin mass conc 1.4 g/dL Normal 1.1-2.2 [facility] Comment on above: Performed By: #### 2 842748, 6027092, 1756749, 7238568, 3440112, 2744614, 60532481 ####[facility] [address] [place] [address] ALP enzyme act/vol 72 Int._Unit/L Normal 21-98 [facility] Comment on above: Performed By: #### 2 727609, 5730815, 0796364, 2958900, 8435175, 7233499, 08371141 ####[facility] [address] [place], [place] [address] ALT No additional P-5'-P enzyme act/vol 25 Int._Unit/L Normal 6-46 [facility] Comment on above: Performed By: #### 2 162029, 9506470, 7719766, 9608971, 4666570, 5059678, 20253051 ####[facility] [address] [place] [address] AST enzyme act/vol 28 Int._Unit/L Normal 5-43 [facility] Comment on above: Performed By: #### 2 408535, 7439515, 0626404, 9766333, 3081577, 8038892, 48517467 ####[facility] [address] [place] [address] Bilirubin mass conc 0.3 mg/dL Normal 0.0-1.1 [facility] Comment on above: Performed By: #### 2 858195, 1449207, 9106913, 3299087, 0059726, 6180510, 51063834 ####[address] [address] Bilirubin.direct mass conc mg/dL Normal 0.1-0.4 [facility] Comment on above: Performed By: #### 2 144349, 9282046, 8268805, 2679151, 0587342, 8878602, 88176896 ####[address] [address] Globulin Calculated mass conc (S) 2.7 g/dL Normal 1.4-4.0 [facility] Comment on above: Performed By: #### 2 195912, 9160449, 6250613, 1713257, 6565385, 3138305, 60160937 ####[facility] [address] [place] [address] Protein mass conc 6.6 g/dL Normal 6.0-7.8 [facility] Comment on above: Performed By: #### 2 [id number], [id number], [id number], 7104159, 2289504, 6162493, [id number] ####[facility] [address] [place] [address] Lactic Acidon 10-05-2017 Lactate mass conc 13.2 mg/dL Normal 4.5-19.8 [facility] Comment on above: Performed By: #### 2 [id number], [id number], 0712676, 9276613, 2097794, 2772562, [id number] ####[facility] [address] [place] [address] Lipase Levelon 10-05-2017 Lipase enzyme act/vol 18 unit/L Normal 13-58 [facility] Comment on above: Performed By: #### 2 267687, 4532544, 7510258, 2818198, 9246049, 2119796, [id number] ####[facility] [address] [place] [address] UA With Cult Reflexon 2017 Bilirubin Ql (U) Negative Normal Negative [facility] Comment on above: Performed By: #### 1 [id number] ####[address] [address] Clarity Nom (U) CLEAR Normal Clear [facility] Comment on above: Performed By: #### 1 [id number] ####[address] [address] Color Auto Nom (U) YELLOW Normal Yellow [facility] Comment on above: Performed By: #### 1 [id number] ####[address] [address] Epithelial cells.squamous LM.HPF #/area (Urine sed) 0-2 Normal 0-2 [facility] Comment on above: Performed By: #### 1 [id number] ####[address] [address] Glucose Test strip mass conc (U) Negative Normal Negative [facility] Comment on above: Performed By: #### 1 [id number] ####[address] [address] Hemoglobin Test strip Ql (U) Negative Normal Negative [facility] Comment on above: Performed By: #### 1 [id number] ####[facility] [address] [facility] [place] [address] Ketones mass conc (U) Negative Normal Negative [facility] Comment on above: Performed By: #### 1 [id number] ####[facility] [address] [place] [address] [place].plasma/Li thium.RBC mass ratio (Bld) 0-3 Normal 0-3 [facility] Comment on above: Performed By: #### 1 [id number] ####[facility] [address] [facility] [place] [address] Nitrite Test strip Ql (U) Negative Normal Negative [facility] Comment on above: Performed By: #### 1 [id number] ####[address] [address] pH Test strip (U) 7.5 [pH] Invalid Interpretation Code 5.0-9.0 [facility] Comment on above: Performed By: #### 1 [id number] ####[facility] [address] [facility] [place] [address] Protein mass conc (U) Negative Normal Negative [facility] Comment on above: Performed By: #### 1 [id number] ####[place] [address] [facility] [place] [address] Specific gravity Relative Density (U) 1.010 Invalid Interpretation Code 1.005-1.03 0 [facility] Comment on above: Performed By: #### 1 [id number] ####[facility] [address] [place] [address] UA Spec Desc Clean Catch Normal [facility] Comment on above: Performed By: #### 1 [id number] ####[address] [facility] [place] [address] Urobilinogen Test strip Qn (U) 0.2 {Antonina'U}/dL Normal 0.0-1.0 [facility] Comment on above: Performed By: #### 1 [id number] ####[facility] [address] [place] [address] WBC Auto Ql (U) Negative Normal Negative [facility] Comment on above: Performed By: #### 1 [id number] ####[facility] [address] [place] [address] WBC LM.HPF #/area (Urine sed) 0-5 Normal 0-5 [facility] Comment on above: Performed By: #### 1 [id number] ####[facility] [address] [place] [address] eGFRon 10-05-2017 GFR/1.73 sq M predicted among blacks MDRD vol rate/area (S/P/Bld) mL/min/{1.73_m2} Normal >=59 [facility] Comment on above: Order Comment: Order added by Discern Expert. Result Comment: eGFR is race adjusted. AA=. Performed By: #### 2 057650, 5305103, 3912046, 8982053, 9093780, 3888900, 41135655 ####[facility] [address] [place] [address] GFR/1.73 sq M predicted among non-blacks MDRD vol rate/area (S/P/Bld) mL/min/{1.73_m2} Normal >=59 [facility] Comment on above: Order Comment: Order added by Discern Expert. Result Comment: Meal Attendant seng kidney disease could be indicated at eGFR's of less than 60 mL/min/1.73m2. Kidney failure is indicated at less than 15 mL/min/1.73m2. Performed By: #### 2 866076, 4972138, 0853286, 3170448, 8713556, 9110603, [id number] ####[facility] [address] [place] [address] Vital Signs Date Time Vital Sign Value Performing Clinician Siobhan escalante 05-27-2022 15:00-0500 Body height 160.02 cm Prasad Isabel Other [facility] Other 05-27-2022 15:00-0500 Body mass index (BMI) [Ratio] 23.56 kg/m2 Prasad Isabel Other [facility] Other 05-27-2022 15:00-0500 Body weight 60.33 kg Prasad Isabel Other [facility] Other Encounters Encounter Date Encounter Type Care Provider Facility Start: 07-27-2023 End: 07-27-2023 ambulatory CINDY AGUILAR Not Available Start: 07-27-2023 Bamboo flowsheet Cindy Naik hler DO Work Phone: [facility] Start: 07-27-2023 Bamboo flowsheet Cindy Naik hler DO Work Phone: [facility] Start: 07-01-2022 End: 07-02-[address] ANITHA RAMEY Facility:[facility] Start: 06-23-2022 End: 06-23-2022 ambulatory ANITHA RAMEY Facility:[facility] Start: 06-23-2022 End: 06-23-2022 ambulatory Benjamin Limright PA-C Work Phone: [facility] Comment on above: Fibromyalgia (Primar y Dx); Cervicalgia Start: 06-23-2022 End: 06-23-2022 Telemedicine consultation with patient Benjamin Moore PA-C Work Phone: [facility] Start: 06-17-2022 End: 06-17-[address] JULIANN [place] Facility:[facility] Start: 06-03-2022 End: 06-03-2022 ambulatory Bentley Bragg Other [facility] Other Start: 06-03-2022 Chart abstracting Unk (Historical) N eurology Start: 06-03-2022 Telephone encounter Bentley Bragg [facility] Start: 05-27-2022 End: 05-27-2022 ambulatory Prasad Isabel Other [facility] Other Start: 05-27-2022 Office outpatient ne w 30 minutes Prasad Isabel [facility] Start: 05-20-2022 End: 05-21-[address] [...] End: 07-06-2018 Patient encounter procedure Kings Thomson Facility:[facility] Start: 04-15-2018 End: 04-16-2018 Patient encounter procedure Rockwell Kirill Facility:[facility] Start: 04-12-2018 End: 04-13-2018 Patient encounter procedure Rockwell Salam Facility:[facility] Start: 04-07-2018 End: 04-08-2018 Patient encounter procedure Rockwell Reneam Facility:[facility] Start: 11-05-2017 End: 11-06-2017 Patient encounter procedure Rockwell Salam Facility:[facility] Start: 10-07-2017 End: 10-08-2017 Patient encounter procedure Rockwellbob Lópezam Facility:[facility] Start: 10-06-2017 End: 10-07-2017 Emergency department patient visit Anitha~[id number] LESLEY Ramey Facility:[facility] Start: 10-05-2017 End: 10-05-2017 Emergency department patient visit Anitha~[id number] UNKNOWN Hoy Facility:[facility] Procedures Date Procedure Procedure Detail Performing Clinician Start: 07-27-2023 End: 07-27-2023 Ophth medical xm&eval lexe new pt 1/> vst Age-related nuclear cataract of both eyes Cindy Aguilar DO Work Phone: Comment on above: Age-related nuclear cataract of both eyes (Primary Dx) Start: 03-26-2022 Mammography Cindy cullen DO Work Phone: Plan of Treatment Date Care Activity Detail Author Start: 01-11-2024 End: 01-11-2024 Patient encounter procedure 01/11/2024 1:15 PM EDT Office Visit [facility] [address] [place] [address] Cindy Aguilar DO [address] [place] [address] [facility] Start: 07-27-2023 End: 07-27-2023 Patient encounter procedure 07/27/2023 2:15 PM EST Office Visit [facility] [address] [place] [phone] Cindy Aguilar DO [address] [place] [address] Arrived [facility] Comment on above: Arrived Start: 03-26-2023 Screening for malign ant neoplasm of breast Mammogram [facility] Start: 02-13-2023 Influenza vaccination Influenza Vacc ine (#1) [facility] Start: 06-15-2022 ADVANCE DIRECTIVE DISCUSSION ADVANCE DIRECTIVE DISCUSSION [facility] Start: 06-15-2022 DEPRESSION ASSESSMENT DEPRESSION ASS ESSMENT [facility] Start: 02-13-2022 Influenza vaccination INFLUENZA (#1) [facility] Start: 12-08-2021 COVID-19 VACCINE (5 - Booster for Moderna series) COVID-19 VACCINE (5 - Booster for Moderna series) [facility] Start: 06-15-2021 ADVANCE DIRECTIVE DISCUSSION ADVANCE DIRECTIVE DISCUSSION [facility] Start: 06-15-2021 DEPRESSION ASSESSMENT DEPRESSION ASS ESSMENT [facility] Start: 01-11-2021 BONE DENSITY BONE DENSITY [facility] Start: 01-11-2021 Pneumococcal Vaccine : 65+ Years (1 - PCV) Pneumococcal Vaccine: 65+ Years (1 - PCV) [facility] Start: 01-11-2021 PNEUMOCOCCAL: 65+ (1 - PCV) PNEUMOCOCCAL: 65+ (1 - PCV) [facility] Start: 09-20-2012 DIABETES SCREEN DIABETES SCREEN [facility] Start: 01-11-2006 SHINGRIX VACCINE (1 of 2) SHINGRIX V ACCINE (1 of 2) [facility] Start: 01-11-2001 COLOGUARD (FIT-DNA) COLOGUARD (FIT-D NA) [facility] Start: 01-11-2001 Colonoscopy COLONOSCOPY [facility] Start: 01-11-2001 COLORECTAL CANCER SCREENING COLORECTAL CANCER SCREENING [facility] Start: 01-11-[address] COLONOGRAPHY [facility] Start: 01-11-2001 FECAL OCCULT BLOOD FECAL OCCULT BLOO D [facility] Start: 01-11-2001 LIPID SCREEN LIPID SCREEN [facility] Start: 01-11-2001 SIGMOIDOSCOPY SIGMOIDOSCOPY [facility] Start: 1996 Mammography MAMMOGRAM [facility] Start: 01-11-1975 Urine microalbumin profile DTAP,TDAP,TD (1 - Tdap) [facility] Start: 01-11-1974 HEPATITIS C SCREENING HEPATITIS C SC REENING [facility] Start: 1955 COVID-19 VACCINE (#1) COVID-19 VACCI NE (#1) [facility] Start: 1955 Screening for malign ant neoplasm of colon [facility] Immunizations Immunization Date Immunization Notes Care Provider Fa sunita 04-09-2022 influenza virus vacc ine, unspecified formulation Cindy Aguilar DO Work Phone: [facility] Payers Date Payer Category Payer Medicare ANTHEM MEDICARE ADVANTAGE ANTHEM MEDICARE ADVANTAGE [id number] 2023-Present [address] [place] [address] [id number] 2021 Unknown ANTHEM BLUE CROS S AND BLUE SHIELD ANTHEM MEDIBLUE HMO [id number] 2021-Present [phone] [address] [place] [address] HMO [id number] 2018 Self-pay 2017 Unknown [id number] 1959 Unknown [id number] 1956 Unknown [id number] 2.16.840.1.045327.3.579.2.72 7 1956 Unknown [id number] 2.16.840.1.648418.3.579.2.72 7 1956 Unknown [id number] 2.16.840.1.995481.3.579.2.72 7 1956 Unknown [id number] 2.16.840.1.318647.3.579.2.72 7 1956 Unknown [id number] 2.16.840.1.711280.3.579.2.59 3 1956 Unknown [id number] 2.16.840.1.716879.3.579.2.59 3 1956 Unknown [id number] 2.16.840.1.929967.3.579.2.59 3 1956 Unknown [id number] 2.16.840.1.003814.3.579.2.59 3 1956 Unknown [id number] 2.16.840.1.273883.3.579.2.59 3 1956 Unknown [id number] 2.16.840.1.127649.3.579.2.59 3 1956 Unknown [id number] 2.16.840.1.494164.3.579.2.59 3 1956 Unknown [id number] 2.16.840.1.768678.3.579.2.59 3 1956 Unknown [id number] 2.16.840.1.210244.3.579.2.59 3 1956 Unknown [id number] 2.16.840.1.114855.3.579.2.59 3 1956 Unknown [id number] 2.16.840.1.594402.3.579.2.59 3 1956 Unknown [id number] 2.16.840.1.202384.3.579.2.59 3 1956 Unknown [id number] 2.16.840.1.334228.3.579.2.59 3 1956 Unknown [id number] 2.16.840.1.237391.3.579.2.12 59 Unknown [id number] 2.16.840.1.990366.3.579.2.53 1 Social History Date Type Detail Facility Start: 04-10-2011 End: 07-27-2023 Tobacco smoking status [facility] Never smoked tobacco [facility] Start: 04-10-2011 End: 07-27-2023 Tobacco use and exposure Smokeless tobacco non-user [facility] Start: 05-13-2018 Alcohol intake 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) [facility] Start: 1955 Sex Assigned At Not on file C [facility] Sex Assigned At [facility] Other Tobacco smoking status [facility] Tobacco smoking consumption unknown [facility] Clinical Notes 05-27-2022 to 07-27-2023 Cindy Aguilar, - 07/27/2023 2:15 PM Jacklyn Moore PA-C - 06/23/2022 7:27 AM Jonelle Vasquez APRN.FINGERNAIL FORMER - 06/04/2022 11:10 AM Giovanna Khalil, Research Coordinator - 06/03/2022 1:17 PM EST Note Date & Type Note Facility 07-27-2023 History of Present illness Narrative Images from the original note were not included. Assessment/Plan Diagnoses and all orders for this visit: Age-related nuclear cataract of both eyes - Visually Significant Cataract, OU: I discussed the risks, benefits, alternatives, and expectations of cataract surgery. A complete ophthalmic exam was performed and it was determined that the cataracts were a primary source of vision decline, affecting activities of daily living, necessitating removal. Limited vision post-surgery may occur with pre-existing conditions affecting other areas of the eye or the brain was explained and the patient displayed an understanding. The overall objective is to improve ADLs, not eliminate glasses or restore vision to 20/20. Tests were reviewed - the different lens options were explained including the [id number] fees for any upgrades. Intraocular lens (IOL) selection may be altered either prior to or during the procedure based on the doctor's discretion including reverting to a traditional intraocular lens (IOL). They understood that there will exist the potential of glasses prescription need post surgery for near, distance or possibly both. The patient stated a full understanding and a desire to proceed with the procedure. The patient received cataract measurements and had any additional questions answered. - A complete exam was performed including a physical exam: General: AAOx3 and NAD, Lungs: Clear, Heart: RRR, Abdomen: S/NT/ND, Extremities: no pitting edema. - Coordination of care will be shared with Dr. Fernandez. Cataract Surgery for OU will take place - in the future after a wash out of at least 5 months from rigid gas permeable (RGP) lenses occurred. documented in this encounter [facility] 06-23-2022 Note HNO ID: [id number] Author: Benjamin Moore PA-C Service: ? Author Type: Physician Cosmetic Surgeon Type: Progress Notes Filed: 06/23/2022 7:54 AM Note Text: AMBULATORY TELEPHONE VISIT Skip Hong has consented to this telephone encounter. Patient was unable to connect to [employer] Virtual Visit - call to patient to [...] Time Spent: 45 minutes Benjamin Moore PA-C [facility] 06-23-2022 History of Present illness Narrative AMBULATORY TELEPHONE VISIT Skip Hong has consented to this telephone encounter. Patient was unable to connect to [employer] Virtual Visit - call to patient to [...] Benjamin Moore PA-C documented in this encounter [facility] 06-04-2022 Note HNO ID: [id number] Author: Sangeetha Vasquez APRN.FINGERNAIL FORMER Service: ? Author Type: Nurse Practitioner Type: [...] person or virtual visit whatever patient preference. [facility] 06-04-2022 History of Present illness Narrative Per Triage: Skip Hong is [...] Hong Are you being referred by a [facility] Spine Health Provider or Pain Management Provider at [facility]? No If answer is YES please schedule [...] facility where the MRI/CT/myelogram was completed: [place] [address] MRI/CT/myelogram viewable in Epic: No If not, please provide [phone] to fax in imaging reports for review. Also, please inform patient to hand carry imaging disc to appointment. XR (spine) within 12 months: Yes If YES, please ask for the name/address of the facility where the XR was completed: [place] [address] Dr. Suero's patients: Have you had previous [...] injections and/or physical therapy was completed Injections: [facility] [address] [place] [address] PT: unable to recall facility Have you [...] where the surgery was completed: Additional Comments [phone] documented in this encounter [facility] 06-03-2022 Note HNO ID: [id number] Author: Celeste Khalil Research Coordinator Service: ? Author Type: Research Type: Progress Notes Filed: 06/04/2022 11:31 AM Note Text: Patient name: Skip Hong Are you being referred by a [facility] Provider or [facility] Management Provider at [facility]? No If answer is YES please schedule [...] facility where the MRI/CT/myelogram was completed: [facility] [place] [id number] MRI/CT/myelogram viewable in Epic: No If not, please provide [phone] to fax in imaging reports for review. Also, please inform patient to hand carry imaging disc to appointment. XR (spine) within 12 months: Yes If YES,? please ask for the name/address of the facility where the XR was completed: [facility] [id number] Suero's patients: Have you had previous [...] injections and/or physical therapy was completed Injections: [facility] [address] [place] [address] PT: unable to recall facility Have you [...] where the surgery was completed: Additional Comments [phone] [facility] 05-27-2022 Evaluation note Encounter Date Diagnosis Assessment [...] and agrees. A referral will be sent [facility] Other evaluation note* Diagnosis Fibromyalgia- Primary Mylagia and myositis, unspecified Cervicalgia [facility] Other Evaluation note* Diagnosis Age-related nuclear cataract of both eyes- Primary [facility] N[facility]ative - Reported* Type Description Date Medical History Migraines Medical History Fibromyalgia Medical [...] History arthroscopy shoulder Hospitalization History see above [facility] Other reason for visit NarrativeReferral update - [facility] Other Summary Purpose Family History No Family [...] Diagnosis 1 Neck pain (M54.2) Referral Organization [facility] Ne uros[facility]gery Referring Provider First Name Prasad Referring Provider Last Name Maame Referring Provider Specialty Neurologica l Surgery Referred Organization [facility] Pain Managemen t Referred Provider Bentley Bragg Referred Address [address],[address] Referred Provider Specialty Pain Medicin e Referral Priority Routine General Notes Jenifer Ramírez 022 08:31:51 AM >Received today and sent P2P Esthela Navarro 06/03/2022 02:35:54 PM >fyi patient declined seeing Dr Bragg, she stated [facility] 06/03/2022 02:59:27 PM >OK, thank you for the update. Telephone encounter was sent Additional Source Comments INFORMATION SOURCE (unrecogn ized section and content) DATE CREATED AUTHOR 05/22/2018 Bartolo Rudolph [facility] DATE CREATED AUTHOR AUTHOR'S ORGANIZ ATION 07/22/2018 [facility] DATE CREATED AUTHOR AUTHOR'S ORGANIZ ATION 06/23/2022 [facility] DATE CREATED AUTHOR AUTHOR'S ORGANIZ ATION 07/02/[address] [facility] DATE CREATED AUTHOR AUTHOR'S ORGANIZ ATION 07/28/2023 [facility] dical Specialists EPIC Source Comments (unrecognize d section and content) In the event this informatio n is protected by the Federal Confidentiality of Alcohol and Drug Abuse Patient Records regulations: The Federal rules restrict any use of the information to criminally investigate or prosecute any alcohol or drug abuse patient.[facility] the event this information is protected by the Federal Confidentiality of Alcohol and Drug Abuse Patient Records regulations: The Federal rules restrict any use of the information to criminally investigate or prosecute any alcohol or drug abuse patient.[facility] Care Teams (unrecognized sec tion and content) Computer Science Professor Relationship Specialty Start Date End Date Anitha Ramey MD [address] [place] [address] PCP - General 09/07/09 Luli Roy (Hist), [address] [facility], [place] [id number] Referring Gastroenterology 05/04/18 Computer Science Professor Relationship Specialty Start Date End Date Anitha Ramey MD [address] [facility], [place] [id number] PCP - General 09/07/09 Luil Roy (Hist), [address] [place] [place] [address] Referring Gastroenterology 05/04/18 Computer Science Professor Relationship Specialty Start Date End Date Anitha Ramey MD [address] [facility] [id number] PCP - General Family Medicine 07/27/23 Reason for Visit (unrecogniz ed section and content) Reason Comments Neck Pain Reason Comments Cataract FOR RECORDS PERTAINING TO PATIENTS WHO ARE [...] BE BASED ON THE PRIMARY CLINICAL RECORDS. [facility] [employer] [facility]. provides no warranty or guarantee of the accuracy or completeness of information in this document.
--- NOTE | 2023-08-17 13:06 | MR_ITS ---
The [address] [address] Patient Name: CRISTOBAL CALERO MRN: [id number] date: 1955 Sex: F Assigned Patient Location: LAB Current Patient Location: LAB Accession/Order Number: [id number] Exam Date: 08/17/2023 13:30 Report Date: 08/17/2023 14:26 At the request of: ANITHA RAMEY Procedure: MR head/brain wo con EXAM: MR head/brain wo con HISTORY: aphasia R47.01, Memory loss R41.3 COMPARISON: CT brain 02/25/2023. TECHNIQUE: MRI of the brain was performed without contrast. FINDINGS: There is no restricted diffusion to suggest acute infarct. There is no midline shift, mass effect, or abnormal extraaxial fluid collections. The cortical sulci and ventricular system are within normal limits. Multiple nonspecific scattered foci of T2/FLAIR signal abnormality are identified in the subcortical and periventricular white matter, likely reflect chronic microvascular ischemic changes. The major intracranial flow voids are visualized. The cerebellar tonsils are normal in position. The orbits are unremarkable. The paranasal sinuses show no air-fluid level. The mastoid air cells are clear. The calvarium and extracranial soft tissues are unremarkable. MR/MR head/brain wo con IMPRESSION: No acute intracranial abnormality. Mild chronic microvascular ischemic changes Electronically authenticated by: VEENA KAMARA Date: 08/17/2023 14:26
--- NOTE | 2023-08-17 13:09 | CT_ITS ---
The [address] [address] Patient Name: CRISTOBAL CALERO MRN: [id number] date: 1955 Sex: F Assigned Patient Location: LAB Current Patient Location: Accession/Order Number: [id number] Exam Date: 08/17/2023 14:45 Report Date: 08/18/2023 16:10 At the request of: ANITHA RAMEY Procedure: CT angio neck EXAM: CT angio neck HISTORY: Aphasia R47.01, Memory loss R41.3 COMPARISON: None. TECHNIQUE: Axial CT scans of the neck were obtained with IV contrast administration. MPR and MIP images were obtained. In addition, 3-D reconstruction images were generated using a separate independent workstation. Dose reduction techniques were achieved by using: automated exposure control and/or adjustment of mA and /or kV according to patient size and/or use of iterative reconstruction technique. FINDINGS: The visualized intracranial contents show no acute process. A 0.7 cm area of no enhancement in the pituitary gland is likely due a Rathke's cleft cyst. No abnormal soft tissue mass in the neck. The visualized upper lungs are clear. Osseous structures are intact. Aortic arch shows no aneurysm or dissection. The great vessels of the aortic arch show no significant stenosis. Vertebral arteries, common carotids and internal carotids show no dissection or significant stenosis. CT/CT angio neck IMPRESSION: Carotids and vertebral arteries show no dissection or significant stenosis. 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 Electronically authenticated by: KALI MCKEON Date: 08/18/2023 16:10
[2023-08-17 14:13] LABS: Estimated GFR (African America >60 (>=60); Estimated GFR (Non-African Ame >60 (>=60)
--- NOTE | 2023-08-17 14:50 | CA_ITS ---
Patient Name: CRISTOBAL CALERO MR#: [id number] : 1955 Exam Date: 08/17/2023 Ordering Doctor: DR ANITHA RAMEY . ECHOCARDIOGRAM REPORT PROCEDURE: CA ECHO DOPPLER COMPLETE INDICATIONS: Aphasia, memory loss COMPARISON: None. DESCRIPTION: COMPLETE ECHOCARDIOGRAM Real-time transthoracic echocardiography with 2D, M-mode, spectral and color flow Doppler performed. QUALITY: Technical quality was good. LEFT VENTRICLE: Normal chamber size. Normal left ventricular wall thickness. LV EF: Global left ventricular systolic function is normal. Calculated left ventricular ejection fraction is 63%. DIASTOLIC: Normal diastolic function. ATRIAL SEPTUM: Inadequately seen. LEFT ATRIUM: Normal chamber size. RIGHT ATRIUM: Normal chamber size. RIGHT VENTRICLE: Normal chamber size. Normal right ventricular systolic function. TRICUSPID VALVE: Normal mobility and thickness. No stenosis with mild regurgitation. No evidence of pulmonary hypertension. RVSP 26mmHg MITRAL VALVE: Normal mobility and thickness. No evidence of mitral valve stenosis. There is no mitral annular calcification. Trivial mitral regurgitation. AORTIC VALVE: Normal trileaflet appearance. No visible sclerosis. Normal leaflet mobility. No evidence of aortic valve stenosis. Trivial aortic regurgitation. AORTIC ROOT: Normal diameter and appearance. PULMONIC VALVE: Normal thickness and mobility. No stenosis. Trivial regurgitation. PERICARDIUM: No evidence of pericardial effusion. CONCLUSION: 1. Global left ventricular systolic function is normal; visually estimated ejection fraction is 60 to 65% 2. Normal right ventricular size and systolic function 3. Normal diastolic function 4. The left atrium is normal in size 5. Mild tricuspid regurgitation Adult Echocardiography Procedure Report Left Ventricle LVEDD (3.7 - 5.6 cm): 4.30 cm LVESD (2.2 - 4.0 cm): 2.67 cm LVIVS thickness (0.6 - 1.2 cm): 0.69 cm LVPW thickness (0.5 - 1.0 cm): 0.70 cm e': 0.10 m/s E - e': 6.47 LVOT Max Gradient: 3.06 mm[Hg], 3.44 mm[Hg] LVOT Area (cm2): 0.90 m/s Peak Velocity (LVOT): 0.87 m/s, 0.93 m/s Mean Velocity (LVOT): 0.62 m/s LVOT Diameter 1.82 cm Left Ventricular Ejection Fraction: 63.07 % Left Atrium LA Volume Index (2D A2C): 27.88 ml/m2 Left Atrium Systolic Dimension: 2.95 cm Mitral Valve MV E to A Ratio: 1.06 Mitral Valve A-Wave Peak Velocity: 0.60 m/s Mitral Valve E-Wave Peak Velocity: 0.64 m/s Right Ventricle RV Internal Diastolic Dimension: 3.16 cm Aorta AO Root Diam: 2.48 cm Ascending Ao Diam: 2.30 cm Aortic Valve AoV Area (Peak Jhony): 1.85 cm2, 1.80 cm2 AoV Area (VTI): 1.64 cm2, 1.58 cm2 Peak Velocity(Antegrade Flow): 1.27 m/s Peak Gradient(Antegrade Flow): 6.41 mm[Hg] Mean Velocity(Antegrade Flow): 0.86 m/s Mean Gradient(Antegrade Flow): 3.39 mm[Hg] Velocity Time Integral: 32.52 cm Tricuspid Valve Peak Velocity (Regurgitant Flow): 2.26 m/s, 2.41 m/s, 1.84 m/s Pulmonic Valve Mean Gradient: 1.88 mm[Hg], 2.22 mm[Hg] Mean Velocity: 0.65 m/s, 0.71 m/s Peak Velocity: 0.92 m/s Peak Gradient: 2.80 mm[Hg], 3.96 mm[Hg] Right Atrium Right Atrium Systolic Pressure: 33.29 ml, 33.29 ml Dictated by: Italia Cruz M.D. on 08/17/2023 at 16:22 Approved by: Italia Cruz M.D. on 08/17/2023 at 16:26
== END 2023-08-17 12:33 | disposition home or self-care (01) ==
LOC: LAB 12:32
PROVIDERS: PCP Family Medicine; Visit Provider Family Medicine
DX: R10.9 Unspecified abdominal pain (principal); R47.01 Aphasia; R41.3 Other amnesia; R07.9 Chest pain, unspecified; E78.5 Hyperlipidemia, unspecified
CPT/HCPCS: 36415; 70498; 70551; 82565; 93306; Q9967

== ENCOUNTER 2023-10-08 13:08 | Outpatient (OUT) | payer MEDICARE, SELFPAY ==
[2023-10-15 10:09] LABS: Methylmalonic Acid, Serum 273 nmol/L (0-378)
== END 2023-10-08 13:09 | disposition home or self-care (01) ==
LOC: LAB 13:09
PROVIDERS: PCP Family Medicine; Visit Provider Psychiatry & Neurology Neurology
DX: G62.9 Polyneuropathy, unspecified (principal)
CPT/HCPCS: 36415; 82607; 83921

== ENCOUNTER 2023-10-30 15:27 | Outpatient (OUT) | payer MEDICARE, SELFPAY ==
[2023-10-30 16:05] LABS: Basophils Percent Auto 0.7 % (0.2-2.0); Eosinophils Absolute Auto 0.1 10^3/uL (0.0-0.7); Eosinophils Percent Auto 0.9 % (0.9-7.0); Hematocrit 38.4 % (36.0-48.0); Hemoglobin 12.9 g/dL (12.0-16.0); Immature Granulocytes Abs Auto 0.01 10^3/uL (0.00-0.03); Immature Granulocytes Pct Auto 0.2 % (0.0-0.5); Lymphocytes Absolute Auto 0.8 10^3/uL (1.2-3.8); Lymphocytes Percent Auto 13.3 % (20.5-60.0); Mean Corpuscular HGB Conc 33.6 g/dL (29.9-35.2); Mean Corpuscular Hemoglobin 30.1 pg (26.7-34.0); Mean Corpuscular Volume 89.7 fL (81.0-99.0); Mean Platelet Volume 9.2 fL (9.5-13.5); Monocytes Absolute Auto 1.1 10^3/uL (0.3-0.8); Monocytes Percent Auto 18.4 % (1.7-12.0); Neutrophils Absolute Auto 3.9 10^3/uL (1.4-6.5); Neutrophils Percent Auto 66.5 % (43.0-75.0); Platelet Count 236 10^3/uL (150-450); Red Blood Count 4.28 10^6/uL (4.20-5.40); Red Cell Distribution Width 13.1 % (11.0-15.0); White Blood Count 5.8 10^3/uL (4.0-11.0)
[2023-10-30 16:37] LABS: Erythrocyte Sedimentation Rate 49 mm/hr (<=30)
[2023-10-30 16:48] LABS: C Reactive Protein 0.91 mg/dL (<=0.50); Creatine Kinase 53 U/L (26-192); Uric Acid 3.4 mg/dL (2.6-6.0)
[2023-11-01 08:10] LABS: Rheumatoid Factor (RF) <10.0 IU/mL (<14.0)
[2023-11-03 10:13] LABS: Antinuclear Antibodies, IFA Positive (.)
== END 2023-10-30 15:28 | disposition home or self-care (01) ==
LOC: LAB 15:28
PROVIDERS: PCP Family Medicine; Visit Provider Family Medicine
DX: M19.90 Unspecified osteoarthritis, unspecified site (principal)
CPT/HCPCS: 36415; 82550; 84550; 85025; 85652; 86038; 86060; 86140; 86431

== ENCOUNTER 2023-11-03 11:00 | Emergency (ER) | payer MEDICARE, SELFPAY ==
[2023-11-03 11:08] VITALS: BP 176/63; PULSE 73; TEMP 36.5; O2SAT 99; BMI 24.3
--- NOTE | 2023-11-03 11:13 | ED.ALLEREA1 ---
HPI - Allergic Reaction General Chief complaint: Allergic Reaction Stated complaint: POSSIBLE HIVES Time Seen by Provider: 11/03/23 11:09 Source: patient Mode of arrival: walk-in Limitations: no limitations History of Present Illness HPI narrative: The 8-year-old female presents for hives. Its all over her body but mostly on her back. It started last night. She has not used any new soaps or detergents. No difficulty breathing or swallowing and it has been continuous. She had taken some Benadryl at home but it did not help much. Related Data Home Medications ?Medication ?Instructions ?Recorded ?Confirmed ClearLax DAILY constipation 02/25/23 gabapentin 100 mg capsule 100 mg PO Q12H 02/25/23 03/27/23 oxycodone-acetaminophen 5 mg-325 1 tab PO Q6H PRN pain 02/25/23 03/27/23 mg tablet (Percocet) sumatriptan succinate 100 mg 100 mg PO .at onset PRN migraines 02/25/23 03/27/23 tablet (Imitrex) tizanidine 2 mg tablet 2 mg PO Q6H PRN muscle spasticity 02/25/23 03/27/23 gabapentin 300 mg capsule 300 mg PO Q12H 03/27/23 03/27/23 Previous Rx's ?Medication ?Instructions ?Recorded methocarbamol 500 mg tablet 500 mg PO Q8H PRN muscle spasm #10 12/31/22 tabs meclizine 25 mg tablet 25 mg PO BID PRN dizziness #10 tabs 02/25/23 hydroxyzine HCl 25 mg tablet 25 mg PO Q8H PRN itching #20 tabs 11/03/23 prednisone 10 mg tablet See Rx Instructions .Route 11/03/23 .COMPLEX #30 tabs Allergies Allergy/AdvReac Type Severity Reaction Status Date / Time acetaminophen [From Percocet] Allergy Severe Verified 12/31/22 10:20 aspirin Allergy Severe Anaphylaxis Verified 12/31/22 10:20 butorphanol [From Stadol] Allergy Severe Rash Verified 12/31/22 10:20 ciprofloxacin [From Cipro] Allergy Severe Verified 12/31/22 10:20 homatropine [From Hydromet] Allergy Severe Rash Verified 12/31/22 10:20 hydrocodone [From Hydromet] Allergy Severe Rash Verified 12/31/22 10:20 hydromorphone [From Dilaudid] Allergy Severe Rash Verified 12/31/22 10:20 metoclopramide [From Reglan] Allergy Severe Verified 02/25/23 19:30 oxycodone [From Percocet] Allergy Severe Verified 12/31/22 10:20 sulfamethoxazole Allergy Severe severe Verified 12/31/22 10:20 [From Bactrim] illness theophylline Allergy Severe Dizziness Verified 12/31/22 10:20 tramadol Allergy Severe Rash Verified 12/31/22 10:20 trimethoprim [From Bactrim] Allergy Severe severe Verified 12/31/22 10:20 illness morphine AdvReac Severe stomach Verified 12/31/22 10:20 pain promethazine [From Phenergan] AdvReac Severe spasms Verified 12/31/22 10:20 lodine Allergy Severe Uncoded 12/31/22 10:20 Review of Systems ROS Narrative A ten point review of systems is negative except as noted above. PFSH PFS Medical History (Updated 11/03/23 @ 13:06 by Margarito Florence MD) History of colitis ?Z87.19 - Personal history of other diseases of the digestive system (ICD-10) Hx of temporomandibular joint syndrome ?Z87.39 - Personal history of other diseases of the musculoskeletal system and connective tissue (ICD-10) History of lupus Hx of chronic arthritis ?Z87.39 - Personal history of other diseases of the musculoskeletal system and connective tissue (ICD-10) History of fibromyalgia ?Z87.39 - Personal history of other diseases of the musculoskeletal system and connective tissue (ICD-10) History of diverticulitis ?Z87.19 - Personal history of other diseases of the digestive system (ICD-10) Hx of irritable bowel syndrome ?Z87.19 - Personal history of other diseases of the digestive system (ICD-10) Hx of migraines ?Z86.69 - Personal history of other diseases of the nervous system and sense organs (ICD-10) Hx of esophageal reflux ?Z87.19 - Personal history of other diseases of the digestive system (ICD-10) Surgical History (Updated 12/31/22 @ 10:47 by Booker Bone) Hx of cholecystectomy ?Z90.49 - Acquired absence of other specified parts of digestive tract (ICD-10) Hx of hysterectomy ?Z90.710 - Acquired absence of both cervix and uterus (ICD-10) Hx of section ?Z98.891 - History of uterine scar from previous surgery (ICD-10) Hx of tonsillectomy ?Z90.89 - Acquired absence of other organs (ICD-10) Social History Smoking status: Never smoker Exam Narrative Exam Narrative: Nurses note and vital signs reviewed and patient is not hypoxic. General: The patient appears well and in no apparent distress. Patient is resting comfortably on cart. Skin: Warm, dry, no pallor noted. There are hives present on her back and arms and anterior torso as well. Head: Normocephalic, atraumatic Eye: Normal conjunctiva, no drainage Ears, Nose, Mouth, and Throat: oral mucosa is moist. Nares patent. Tongue is not swollen Cardiovascular: Regular Rate and Rhythm Respiratory: Patient is in no distress, no accessory muscle use, lungs are clear to auscultation, no wheezing, rales or rhonchi Back: non-tender GI: Normal bowel sounds, no tenderness to palpation, no masses appreciated. No rebound, guarding, or rigidity noted. Musculoskeletal: The patient has no evidence of calf tenderness, no pitting edema, symmetrical pulses noted bilaterally Neurological: A&O, normal speech Psychiatric: Cooperative, anxious Constitutional Vital Signs, click to edit/add: Last Vital Signs Temp 97.7 F 11/03/23 11:08 Pulse 73 11/03/23 11:08 Resp 20 11/03/23 11:08 BP 176/63 H 11/03/23 11:08 Pulse Ox 99 11/03/23 11:08 O2 Del Method Room Air 11/03/23 11:08 Course Vital Signs Vital signs: Vital Signs Temperature 97.7 F 11/03/23 11:08 Pulse Rate 73 11/03/23 11:08 Respiratory Rate 20 11/03/23 11:08 Blood Pressure 176/63 H 11/03/23 11:08 Pulse Oximetry 99 11/03/23 11:08 Oxygen Delivery Method Room Air 11/03/23 11:08 Temperature 97.7 F 11/03/23 11:08 Pulse Rate 73 11/03/23 11:08 Respiratory Rate 20 11/03/23 11:08 Blood Pressure 176/63 H 11/03/23 11:08 Pulse Oximetry 99 11/03/23 11:08 Oxygen Delivery Method Room Air 11/03/23 11:08 MDM - Allergic Reaction MDM Narrative Medical decision making narrative: The patient has presented with an allergic reaction initially was given IV Solu-Medrol and Benadryl. She seems to be improved somewhat and will be discharged home on prednisone. Treatment diagnosis and follow-up were discussed with the patient. Differential Diagnosis Differential diagnosis: Likely allergic reaction, adverse reaction to drug and urticaria Discharge Plan Discharge Stand Alone Forms: Portal Instructions Chief Complaint: Allergic Reaction Clinical Impression: Urticaria Patient Disposition: Home, Self-Care Time of Disposition Decision: 12:51 Condition: Good Mode of Transportation: Private Vehicle Prescriptions / Home Meds: New prednisone 10 mg tablet See Rx Instructions .ROUTE .COMPLEX Qty: 30 0RF Rx Instructions: 4 by mouth daily for three days then 3 by mouth daily for three days then 2 by mouth daily for three days then 1 by mouth daily for three days hydroxyzine HCl 25 mg tablet 25 mg PO Q8H PRN (Reason: itching) Qty: 20 0RF No Action methocarbamol 500 mg tablet 500 mg PO Q8H PRN (Reason: muscle spasm) Qty: 10 0RF Hold Instructions: not on patients list gabapentin 300 mg capsule 300 mg PO Q12H Patient Comments: NOT FILLED SINCE 07-30-22 tizanidine 2 mg tablet 2 mg PO Q6H PRN (Reason: muscle spasticity) Patient Comments: only takes 1 at night per patient list gabapentin 100 mg capsule 100 mg PO Q12H oxycodone-acetaminophen [Percocet] 5-325 mg tablet 1 tab PO Q6H PRN (Reason: pain) ClearLax DAILY Rx Instructions: once daily per patients list sumatriptan succinate [Imitrex] 100 mg tablet 100 mg PO .at onset PRN (Reason: migraines) Rx Instructions: do not exceed 2 doses per 24 hrs meclizine 25 mg tablet 25 mg PO BID PRN (Reason: dizziness) Qty: 10 0RF Hold Instructions: DC Print Language: [place] Instructions: General Allergic Reaction (ED) Additional Instructions: See Dr. Mcgregor in the office this week. Referrals: Min Mcgregor MD [Primary Care Provider] - 1 week
[2023-11-03] MEDS: METHYLPREDNISOLONE SOD SUCC PF 125 MG/2 ML VIAL IVP (11:17)
[2023-11-03] MEDS: DIPHENHYDRAMINE HCL 50 MG/ML (1ML) VIAL 25 MG IV (11:17)
== END 2023-11-03 13:18 | disposition home or self-care (01) ==
PROVIDERS: Emergency Provider Emergency Medicine; PCP Family Medicine
DX: L50.9 Urticaria, unspecified (principal); Z79.899 Other long term (current) drug therapy; Z90.49 Acquired absence of other specified parts of digestive tract; Z90.89 Acquired absence of other organs; Z90.710 Acquired absence of both cervix and uterus; Z98.891 History of uterine scar from previous surgery
CPT/HCPCS: 96374; 96375; 99284; J2919

== ENCOUNTER 2023-11-05 17:22 | Observation (INO) | payer MEDICARE, SELFPAY ==
--- NOTE | 2023-11-05 17:25 | P.HP_ITS ---
HPI H&P: HPI History of Present Illness Chief complaint: Dehydration Narrative: Was seen and evaluated in the office, she has had increasing weakness and fatigue. Some mild abdominal pain. In the office felt she was dehydrated. I saw patient up on the floor, patient was seen fairly uncomfortable, just with generalized weakness standpoint. 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) History of colitis ?Z87.19 - Personal history of other diseases of the digestive system (ICD-10) Hx of temporomandibular joint syndrome ?Z87.39 - Personal history of other diseases of the musculoskeletal system and connective tissue (ICD-10) History of lupus Hx of chronic arthritis ?Z87.39 - Personal history of other diseases of the musculoskeletal system and connective tissue (ICD-10) History of fibromyalgia ?Z87.39 - Personal history of other diseases of the musculoskeletal system and connective tissue (ICD-10) History of diverticulitis ?Z87.19 - Personal history of other diseases of the digestive system (ICD-10) Hx of irritable bowel syndrome ?Z87.19 - Personal history of other diseases of the digestive system (ICD-10) Hx of migraines ?Z86.69 - Personal history of other diseases of the nervous system and sense organs (ICD-10) Hx of esophageal reflux ?Z87.19 - Personal history of other diseases of the digestive system (ICD-10) Surgical History (Updated 12/31/22 @ 10:47 by Booker Bone) Hx of cholecystectomy ?Z90.49 - Acquired absence of other specified parts of digestive tract (ICD- 10) Hx of hysterectomy ?Z90.710 - Acquired absence of both cervix and uterus (ICD-10) Hx of section ?Z98.891 - History of uterine scar from previous surgery (ICD-10) Hx of tonsillectomy ?Z90.89 - Acquired absence of other organs (ICD-10) Family History (Updated 11/05/23 @ 17:48 by Mary Ann Ramos) Father Family history of CHF (congestive heart failure) Family history of COPD (chronic obstructive pulmonary disease) Family history of hypertension Family history of myocardial infarction Family history of stroke Mother Family history of CHF (congestive heart failure) Family history of COPD (chronic obstructive pulmonary disease) Family history of hypertension Sister Family history of COPD (chronic obstructive pulmonary disease) Family history of hypertension Brother Family history of COPD (chronic obstructive pulmonary disease) Family history of hypertension Social History Smoking status: Never smoker Highest level of school completed/degree received: some college, no degree Meds Home Medications and Allergies Home Medications ?Medication ?Instructions ?Recorded ?Confirmed ?Type gabapentin 100 mg capsule 100 mg PO Q12H 02/25/23 11/05/23 History sumatriptan succinate 100 mg 100 mg PO .at onset PRN migraines 02/25/23 11/05/23 History tablet (Imitrex) hydroxyzine HCl 25 mg tablet 25 mg PO Q8H PRN itching #20 tabs 11/03/23 11/05/23 Rx clopidogrel 75 mg tablet 75 mg PO DAILY 11/05/23 11/05/23 History liothyronine 5 mcg tablet 5 mcg PO DAILY 11/05/23 11/05/23 History omeprazole 20 mg capsule,delayed 20 mg PO DAILY 11/05/23 11/05/23 History release Allergies Allergy/AdvReac Type Severity Reaction Status Date / Time aspirin Allergy Severe Anaphylaxis Verified 12/31/22 10:20 butorphanol [From Stadol] Allergy Severe Rash Verified 12/31/22 10:20 ciprofloxacin [From Cipro] Allergy Severe Verified 12/31/22 10:20 homatropine [From Hydromet] Allergy Severe Rash Verified 12/31/22 10:20 hydromorphone [From Dilaudid] Allergy Severe Rash Verified 12/31/22 10:20 metoclopramide [From Reglan] Allergy Severe Verified 02/25/23 19:30 sulfamethoxazole Allergy Severe severe Verified 12/31/22 10:20 [From Bactrim] illness theophylline Allergy Severe Dizziness Verified 12/31/22 10:20 tramadol Allergy Severe Rash Verified 12/31/22 10:20 trimethoprim [From Bactrim] Allergy Severe severe Verified 12/31/22 10:20 illness morphine AdvReac Severe stomach Verified 12/31/22 10:20 pain promethazine [From Phenergan] AdvReac Severe spasms Verified 12/31/22 10:20 Exam Constitutional Vital Signs, click to edit/add: Last Vital Signs Temp 97.4 F L 11/06/23 07:41 Pulse 53 L 11/06/23 07:41 Resp 18 11/06/23 07:41 BP 144/72 H 11/06/23 07:41 Pulse Ox 98 11/06/23 07:41 O2 Del Method Room Air 11/06/23 07:41 Documenting provider has reviewed patient's vital signs: yes Common normals: apparent distress (Seems uncomfortable from a generalized myalgia standpoint and fatigue) Exam limitations: no altered mental status Respiratory Common normals: normal respiratory effort Cardio Common normals: regular rate and regular rhythm GI Common normals: Normal to inspection, nondistended, normoactive bowel sounds p resent, soft to palpation and non-tender Extremity Common normals: full ROM and normal capillary refill Results Labs Labs: Short CBC 11/05/23 11/06/23 Range/Units 06:21 04:50 WBC 8.7 8.0 (4.0-11.0) 10^3/uL Hgb 13.3 11.9 L (12.0-16.0) g/dL Hct 39.9 37.8 (36.0-48.0) % Plt Count 268 297 (150-450) 10^3/uL BMP 11/05/23 11/06/23 18:45 04:50 Sodium 139 138 Potassium 3.8 4.3 Chloride 106 106 Carbon Dioxide 21.1 24.1 BUN 18.0 15.0 Creatinine 0.97 0.95 Glucose 101 174 H Calcium 9.6 8.7 Liver Function 11/05/23 11/06/23 Range/Units 18:45 04:50 Total Bilirubin 0.3 0.2 (0.2-1.0) mg/dL AST 16 15 (15-37) U/L ALT 26 23 (14-59) U/L Alkaline Phosphatase 106 98 (46-116) U/L Albumin 3.7 3.1 L (3.4-5.0) g/dL Urine 11/05/23 Range/Units 07:41 Urine Color Lt. yellow (YELLOW) Urine Clarity Clear (CLEAR) Urine pH 6.0 (5.0-9.0) Ur Specific [place] <=1.005 A (1.005-1.025) Urine Protein Negative (NEG/TRACE) mg/dL Urine Glucose (UA) Negative (NEGATIVE) mg/dL Assessment and Plan Assessment and Plan (1) Dehydration: Plan Patient seen and evaluated and recommended for admission. When evaluated here, patient did seem to be dehydrated. Given fluid bolus today and see how she feels tomorrow with that 1 dose of Decadron also she has had this recurrent urticaria. Plan based diet and outcome of labs that are pending and evaluation tomorrow Admission status: Observation initially. If medically necessary treatment will span 2 midnights will change patient to inpatient status
--- OUTSIDE RECORDS SUMMARY | 2023-11-05 17:30 | XMS_ITS | CCD ---
Author Organization [facility] Care Team Providers Care Press Tender Name Role Phone Anitha [phone] UNKNOWN Unavailable Unavailable Loly, Iain Unavailable Unavailable Loly, Iain Unavailable Unavailable Hoy, Anitha~[phone] UNKNOWN Unavailable Unavailable Kade Howe Unavailable Unavailable Kade Howe Unavailable Unavailable Salam, Rockwell Unavailable Unavailable Salam, Rockwell Unavailable Unavailable Salam, Rockwell Unavailable Unavailable Hoy, Anitha~[phone] UNKNOWN Unavailable Unavailable Salam, Rockwell Unavailable Unavailable Salam, Rockwell Unavailable Unavailable Salam, Rockwell Unavailable Unavailable Hoy, Anitha~[phone] UNKNOWN Unavailable Unavailable Salam, Rockwell Unavailable Unavailable Salam, Rockwell Unavailable Unavailable Hoy, Anitha~[phone] UNKNOWN Unavailable Unavailable Salam, Rockwell Unavailable Unavailable Salam, Rockwell Unavailable Unavailable Salam, Rockwell Unavailable Unavailable Hoy, Anitha~[phone] UNKNOWN Unavailable Unavailable Salam, Rockwell Unavailable Unavailable Salam, Rockwell Unavailable Unavailable Salam, Rockwell Unavailable Unavailable Hoy, Anitha~[phone] UNKNOWN Unavailable Unavailable Kings Thomson Attending Unavailable Anitha Ramey Primary Care Unavailable Anitha Ramey MD Primary Care Provider [phone] Luli Roy MD (Hist) Unavailable [phone] ANITHA RAMEY Primary Care Unavailable BENJAMIN MOORE [...] HOY, DR WELSH Admitting Unavailable HOY, DR WESLH Consulting Unavailable HOY, DR WELSH Primary Care [...] Provider UnavailAnitha Montague MD Primary Care Provider [phone] CINDY AGUILAR Attending Unavailable ORAL FERNANDEZ Referring Unavailable MIGUEL ÁNGEL HER Attending Unavailable JASVIR SMILEY Attending Unavailable MIGUEL ÁNGEL HER Referring Unavailable Allergies Allergy Classification Reported Allergen(s) Allergy Type Date of Onset Reaction(s) Facility (1 source) Acetaminophen / oxyCODONE; Translations: [Percocet 5/325] Drug Allergy [facility] Repository (1 source) Adhesive Tape; Translations: [Tape] Propensity to adverse reactions (disorder) [facility] Repository (8 sources) Aspirin; Translations: [aspirin] Drug Allergy 09-14-19 10 Anaphylaxis [facility] Repository (4 sources) Butorphanol; Translations: [Stadol] Drug Allergy Unknown [facility] Repository (7 sources) Ciprofloxacin; Translations: [ciprofloxacin] Drug Allergy 06-03-20 Other: See Comments, Alejandro [facility] Repository (2 sources) Etodolac; Translations: [Lodine] Drug Allergy [facility] Repository (1 source) homatropine / HYDROcodone; Translations: [Hydromet] Drug Allergy [facility] Repository (2 sources) HYDROmorphone; Translations: [Dilaudid] Drug Allergy [facility] Repository (8 sources) Morphine; Translations: [morphine] Drug Allergy 09-14-19 10 AOF, Unknown [facility] Repository (2 sources) Promethazine; Translations: [Phenergan] Drug Allergy AOF [facility] Repository (4 sources) Acetaminophen / oxyCODONE; Translations: [OXYCODONE-ACETAMIN OPHEN] Drug Allergy 06-03-20 Other: See Alejandro Green [facility] (3 sources) Adhesive Tape; Translations: [ADHESIVE TAPE (ROSINS)] Allergy to substance Other: See Comments [facility] (3 sources) Butorphanol; Translations: [BUTORPHANOL TARTRATE] Drug Allergy 09-14-19 Other: See Comments [facility] (3 sources) Etodolac; Translations: [ETODOLAC] Drug Allergy 09-14-19 10 [facility] (3 sources) homatropine / HYDROcodone; Translations: [HYDROCODONE-HOMATR OPINE] Drug Allergy Other: See Comments [facility] (3 sources) HYDROmorphone; Translations: [HYDROMORPHONE (BULK)] Drug Allergy 04-10-20 11 Rash [facility] (3 sources) Promethazine; Translations: [PROMETHAZINE HCL] Drug Allergy 09-14-19 10 [facility] (1 source) Acetaminophen / oxyCODONE Drug Allergy [facility] Repository (1 source) Ciprofloxacin Drug Allergy [facility] Repository (1 source) Desonide Drug Allergy [facility] Repository (1 source) homatropine Drug Allergy [facility] Repository (1 source) Bleach (Sodium Hypochlorite) Drug allergy (disorder) 01-11-19 56 [facility] Repository (3 sources) HYDROmorphone Drug Allergy 04-10-20 11 Rash [facility] Other (2 sources) Promethazine Drug Allergy Unknown [facility] Other (2 sources) traMADol Drug Allergy Unknown [facility] Other (1 source) Butorphanol Drug Allergy 09-14-19 10 [facility] (1 source) Etodolac Propensity to adverse reactions 09-14-19 10 [facility] (1 source) Promethazine Drug Allergy 09-14-19 10 [facility] (1 source) Sulfamethoxazole / Trimethoprim Drug Allergy 06-03-20 [facility] (1 source) Theophylline Drug Allergy 06-03-20 [facility] Medications Current Medications Medication Drug Class(es) Dates [...] th every 8 hours as needed. amylase 345853 unt / lipase 51789 unt / protease 73673 unt delayed release oral capsule (2 sources) [...] affected ar ea twice daily. estrogens, conjugated (long-term) 0.625 mg/ml vaginal cream (2 sources) Estrogen [...] unspecified; Translations: [PURE HYPERCHOLESTEROLEMIA UNSPEC] Onset: 06-19-19 Chronic Diverticulosis and diverticulitis (2 sources) Diverticular [...] 23 Episodic Other aftercare (1 source) Other half-way (current) drug therapy; Translations: [OTH RETIREMENT CURRENT DRUG THERAPY] Onset: 06-19-19 23 Episodic [...] activity/Vol] 117 U/L Critically high 25-115 [facility] Comment on above: Performed By: #### T SH, T7, ALIYAH, LIPA, CMP ####[facility] [address] [place] [address]Dr. Lawrence Wayne CBC AUTO DIFFon 07-01-2022 BASO # 0.1 103/ul Normal 0.0-0.1 [facility] Comment on above: Performed By: #### C BC ####[facility] [address] [place] [address]Dr. Lawrence Wayne Basophils/100 WBC (Bld) 0.6 % Normal 0.2-2.0 [facility] Comment on above: Performed By: #### C BC ####[facility] [address] [place] [address]Dr. Lawrence Wayne EO # 0.1 103/ul Normal 0.0-0.7 [facility] Comment on above: Performed By: #### C BC ####[facility] [address]re[address] [place] [address]Dr. Lawrence Wayne Eosinophils/100 WBC (Bld) 0.7 % Critically low 0.9-7.0 [facility] Comment on above: Performed By: #### C BC ####[facility] [address] [place], [place] [address]Dr. Lawrence Wayne Erythrocyte distribution width (RBC) [Ratio] 13.6 % Normal 11.0-15.0 [facility] Comment on above: Performed By: #### C BC ####[facility] N[address] [place], [place] [address]Dr. Lawrence Wayne Hematocrit (Bld) [Volume fraction] 45.6 % Normal 36.0-48.0 [facility] Comment on above: Performed By: #### C BC ####[facility] [address] [place], [place] [address]Dr. Lawrence Wayne Hemoglobin (Bld) [Mass/Vol] 15.4 g/dL Normal 12.0-16.0 [facility] Comment on above: Performed By: #### C BC ####[facility] [address] [place], [place] [address]Dr. Lawrence Wayne IG # 0.03 10e3/ul Normal 0.00-0.03 [facility] Comment on above: Performed By: #### C BC ####[facility] Rxnfqutiiz[address] [place], [place] [address]Dr. Lawrence Wayne IG % 0.4 % Normal 0.0-0.5 [facility] Comment on above: Performed By: #### C BC ####[facility] [address] [place], [place] [address]DrKim Wayne LYMPH # 2.8 103/ul Normal 1.2-3.8 [facility] Comment on above: Performed By: #### C BC ####[facility] [address]xx[address] [place] [id number]. Lawrence Tone Lymphocytes/100 WBC (Bld) 33.5 % Normal 20.5-60.0 [facility] Comment on above: Performed By: #### C BC ####[facility] [address] [place] [id number] Wayne MANUAL DIFF REQ NO Normal [facility] Comment on above: Performed By: #### C BC ####[facility] [address] [place] [id number]. Laraantonio Wayne MCH (RBC) [Entitic mass] 30.1 pg Normal 26.7-34.0 [facility] Comment on above: Performed By: #### C BC ####[facility] [address] [place] [address]Dr. Laraantonio Wayne MCHC (RBC) [Mass/Vol] 33.8 g/dL Normal 29.9-35.2 [facility] Comment on above: Performed By: #### C BC ####[facility] [address] [place], [place] [id number] Laraantonio Wayne MCV (RBC) [Entitic vol] 89.2 fL Normal 81.0-99.0 [facility] Comment on above: Performed By: #### C BC ####[facility] [address] [place] [address]Dr. Lawrence Wayne MONO # 0.8 103/ul Normal 0.3-0.8 [facility] Comment on above: Performed By: #### C BC ####[facility] [address]arnxl[address] [place] [id number] Wayne Monocytes/100 WBC (Bld) 9.3 % Normal 1.7-12.0 [facility] Comment on above: Performed By: #### C BC ####[facility] [address] [place], [place] [id number] Wayne NEUT # 4.6 103/ul Normal 1.4-6.5 [facility] Comment on above: Performed By: #### C BC ####[facility] Lddbrkqxrc4[address] [place] [id number]. Lawrence Wayne Neutrophils/100 WBC (Bld) 55.5 % Normal 43.0-75.0 [facility] Comment on above: Performed By: #### C BC ####[facility] [address]xd[address]vlv[address] [place] [id number]. Lawrence Wayne Platelet mean volume (Bld) [Entitic vol] 8.6 fL Critically low 9.5-13.5 [facility] Comment on above: Performed By: #### C BC ####[facility] [address]fr[address] [place] [id number]. Lawrence Wayne PLT 380 103/ul Normal 150-450 [facility] Comment on above: Performed By: #### C BC ####[facility] [address]rs[address]scko[address] [place] [address]Dr. Lawrence Wayne RBC 5.11 106/ul Normal 4.20-5.40 [facility] Comment on above: Performed By: #### C BC ####[facility] T[address]rymr[address]tz25[address] [place] [address]Dr. Lawrence Wayne WBC 8.3 103/ul Normal 4.0-11.0 [facility] Comment on above: Performed By: #### C BC ####[facility] [address] [place] [address]Dr. Lawrence Wayne FREE THYROXINE INDEX T7on FTI 3.28 Normal 1.30-4.50 [facility] Comment on above: Performed By: #### T SH, T7, ALIYAH, LIPA, CMP ####[facility] [address]oss[address] [place] [id number]. Lawrence Wayne T3U 36.0 % Normal 30.0-39.0 [facility] Comment on above: Performed By: #### T SH, T7, ALIYAH, LIPA, CMP ####[facility] S[address] [place] [id number]. Lawrence Wayne T4 [Mass/Vol] 9.10 ug/dL Normal 4.80-13.90 [facility] Comment on above: Performed By: #### T SH, T7, ALIYAH, LIPA, CMP ####[facility] [address] [place] [address]Dr. Lawrence Wayne LIPASEon 07-01-2022 Lipase [Catalytic activity/Vol] 125.0 U/L Normal 73.0-393.0 [facility] Comment on above: Performed By: #### T SH, T7, ALIYAH, LIPA, CMP ####[facility] [address]es[address] [place] [address]Dr. Lawrence Wayne PROF 14(COMP METB)on 023 Albumin [Mass/Vol] 3.8 g/dL Normal 3.4-5.0 [facility] Comment on above: Performed By: #### T SH, T7, ALIYAH, LIPA, CMP ####[facility] [address] [place], [place] [address]Dr. Lawrence Wayne Albumin/Globulin [Mass ratio] 1.1 {ratio} Normal [facility] Comment on above: Performed By: #### T SH, T7, ALIYAH, LIPA, CMP ####[facility] Gh[address] [place], [place] [address]Dr. Lawrence Wayne ALP [Catalytic activity/Vol] 104 U/L Normal 46-116 [facility] Comment on above: Performed By: #### T SH, T7, ALIYAH, LIPA, CMP ####[facility] [address] [place] [address]Dr. Lawrence Wayne ALT [Catalytic activity/Vol] 36 U/L Normal 14-59 [facility] Comment on above: Performed By: #### T SH, T7, ALIYAH, LIPA, CMP ####[facility] [address] [place] [address]Dr. Lawrence Wayne Anion gap [Moles/Vol] 11.7 mmol/L Normal [facility] Comment on above: Performed By: #### T SH, T7, ALIYAH, LIPA, CMP ####[facility] [address] [place] [address]Dr. Lawrence Wayne AST [Catalytic activity/Vol] 22 U/L Normal 15-37 [facility] Comment on above: Performed By: #### T SH, T7, ALIYAH, LIPA, CMP ####[facility] [address] [place] [address]Dr. Lawrence Wayne Bilirubin [Mass/Vol] 0.5 mg/dL Normal 0.2-1.0 [facility] Comment on above: Performed By: #### T SH, T7, ALIYAH, LIPA, CMP ####[facility] [address] [place], [place] [address]Dr. Lawrence Wayne Calcium [Mass/Vol] 9.8 mg/dL Normal 8.5-10.1 [facility] Comment on above: Performed By: #### T SH, T7, ALIYAH, LIPA, CMP ####[facility] [address] [place], [place] [address]Dr. Lawrence Wayne Chloride [Moles/Vol] 102 mmol/L Normal 98-107 [facility] Comment on above: Performed By: #### T SH, T7, ALIYAH, LIPA, CMP ####[facility] [address] [place], [place] [address]Dr. Lawrence Wayne CO2 [Moles/Vol] 29.3 mmol/L Normal 21.0-32.0 [facility] Comment on above: Performed By: #### T SH, T7, ALIYAH, LIPA, CMP ####[facility] [address] [place], [place] [address]Dr. Lawrence Wayne Creatinine [Mass/Vol] 0.88 mg/dL Normal 0.55-1.02 [facility] Comment on above: Performed By: #### T SH, T7, ALIYAH, LIPA, CMP ####[facility] [address] [place], [place] [address]Dr. Lawrence Wayne EGFR-AF SRI LANKAN >60 Normal >=60 [facility] Comment on above: Performed By: #### T SH, T7, ALIYAH, LIPA, CMP ####[facility] [address] [place], [place] [address]Dr. Yilan Wayne EGFR-NON AF SRI LANKAN >60 Normal >=60 [facility] Comment on above: Performed By: #### T SH, T7, ALIYHA, LIPA, CMP ####[facility] [address] [place] [address]Dr. Lawrence Wayne Globulin (S) [Mass/Vol] 3.5 g/dL Normal [facility] Comment on above: Performed By: #### T SH, T7, ALIYAH, LIPA, CMP ####[facility] [address] [place] [address]Dr. Lawrence Wayne Glucose [Mass/Vol] 98 mg/dL Normal 74-106 [facility] Comment on above: Performed By: #### T SH, T7, ALIYAH, LIPA, CMP ####[facility] X[address] [place], [place] [address]Dr. Lawrence Wayne Potassium [Moles/Vol] 3.9 mmol/L Normal 3.5-5.1 [facility] Comment on above: Performed By: #### T SH, T7, ALIYAH, LIPA, CMP ####[facility] Onwe[address] [place], [place] [address]Dr. Lawrence Wayne Protein [Mass/Vol] 7.3 g/dL Normal 6.4-8.2 [facility] Comment on above: Performed By: #### T SH, T7, ALIYAH, LIPA, CMP ####[facility] [address] [place] [address]Dr. Lawrence Wayne Sodium [Moles/Vol] 139 mmol/L Normal 136-145 [facility] Comment on above: Performed By: #### T SH, T7, ALIYAH, LIPA, CMP ####[facility] [address] [place] [address]Dr. Lawrence Wayne Urea nitrogen [Mass/Vol] 11.0 mg/dL Normal 7.0-18.0 [facility] Comment on above: Performed By: #### T SH, T7, ALIYAH, LIPA, CMP ####[facility] [address] [place] [address]Dr. Lawrence Wayne Urea nitrogen/Creatini ne [Mass ratio] 12.5 mg/mg Normal [facility] Comment on above: Performed By: #### T SH, T7, ALIYAH, LIPA, CMP ####[facility] [address] [place] [address]DrKim Wayne TSHon 07-01-2022 TSH 1.744 uIU/mL Normal 0.358-3.74 0 [facility] Comment on above: Performed By: #### T SH, T7, ALIYAH, LIPA, CMP ####[facility] [address] [place] [address]DrKim Wayne CBC AUTO DIFFon 06-17-2022 BASO # 0.0 103/ul Normal 0.0-0.1 [facility] Comment on above: Performed By: #### A MY, CMP, LIPA #### [facility] [address] [place] [address] Dr. Lawrence Wayne Basophils/100 WBC (Bld) 0.4 % Normal 0.2-2.0 [facility] Comment on above: Performed By: #### A MY, CMP, LIPA #### [facility] [address] [address] [address] Lawrence Wayne EO # 0.0 103/ul Normal 0.0-0.7 [facility] Comment on above: Performed By: #### A MY, CMP, LIPA #### [facility] [address] [address] [address] Lawrence Wayne Eosinophils/100 WBC (Bld) 0.8 % Critically low 0.9-7.0 [facility] Comment on above: Performed By: #### A MY, CMP, LIPA #### [facility] [address] [place] [address] Dr. Lawrence Wayne Erythrocyte distribution width (RBC) [Ratio] 13.2 % Normal 11.0-15.0 [facility] Comment on above: Performed By: #### A MY, CMP, LIPA #### [facility] [address] [place] [address] Dr. Lawrence Wayne Hematocrit (Bld) [Volume fraction] 43.1 % Normal 36.0-48.0 [facility] Comment on above: Performed By: #### A MY, CMP, LIPA #### [facility] [address] [place] [address] Dr. Lawrence Wayne Hemoglobin (Bld) [Mass/Vol] 15.1 g/dL Normal 12.0-16.0 [facility] Comment on above: Performed By: #### A MY, CMP, LIPA #### [facility] [address] [place] [address] Dr. Lawrence Wayne IG # 0.03 10e3/ul Normal 0.00-0.03 [facility] Comment on above: Performed By: #### A MY, CMP, LIPA #### [facility] [address] [place] [address] Dr. Lawrence Wayne IG % 0.6 % Critically high 0.0-0.5 [facility] Comment on above: Performed By: #### A MY, CMP, LIPA #### [facility] [address] [place] [address] Dr. Lawrence Wayne LYMPH # 1.1 103/ul Critically low 1.2-3.8 [facility] Comment on above: Performed By: #### A MY, CMP, LIPA #### [facility] [address] [place] [address] Dr. Lawrence Wayne Lymphocytes/100 WBC (Bld) 22.0 % Normal 20.5-60.0 [facility] Comment on above: Performed By: #### A MY, CMP, LIPA #### [facility] [address] [place] [address] Dr. Lawrence Wayne MANUAL DIFF REQ NO Normal [facility] Comment on above: Performed By: #### A MY, CMP, LIPA #### [facility] [address] [place] [address] Dr. Lawrence Wayne MCH (RBC) [Entitic mass] 30.3 pg Normal 26.7-34.0 [facility] Comment on above: Performed By: #### A MY, CMP, LIPA #### [facility] [address] [place] [address] Dr. Lawrence Wayne MCHC (RBC) [Mass/Vol] 35.0 g/dL Normal 29.9-35.2 [facility] Comment on above: Performed By: #### A MY, CMP, LIPA #### [facility] [address] [place] [address] Dr. Lawrence Wayne MCV (RBC) [Entitic vol] 86.4 fL Normal 81.0-99.0 [facility] Comment on above: Performed By: #### A MY, CMP, LIPA #### [facility] [address] [place] [address] Dr. Lawrence Wayne MONO # 0.7 103/ul Normal 0.3-0.8 [facility] Comment on above: Performed By: #### A MY, CMP, LIPA #### [facility] [address] [place] [address] Dr. Lawrence Wayne Monocytes/100 WBC (Bld) 13.6 % Critically high 1.7-12.0 [facility] Comment on above: Performed By: #### A MY, CMP, LIPA #### [facility] [address] [place] [address] Dr. Lawrence Wayne NEUT # 3.2 103/ul Normal 1.4-6.5 [facility] Comment on above: Performed By: #### A MY, CMP, LIPA #### [facility] [address] [place] [address] Dr. Lawrence Wayne Neutrophils/100 WBC (Bld) 62.6 % Normal 43.0-75.0 [facility] Comment on above: Performed By: #### A MY, CMP, LIPA #### [facility] [address] [place] [address] Dr. Lawrence Wayne Platelet mean volume (Bld) [Entitic vol] 9.0 fL Critically low 9.5-13.5 [facility] Comment on above: Performed By: #### A MY, CMP, LIPA #### [facility] [address] [place] [address] Dr. Lawrence Wayne PLT 257 103/ul Normal 150-450 [facility] Comment on above: Performed By: #### A MY, CMP, LIPA #### [facility] [address] [address] [address] Lawrence Wayne RBC 4.99 106/ul Normal 4.20-5.40 [facility] Comment on above: Performed By: #### A MY, CMP, LIPA #### [facility] [address] [address] [address] Lawrence Wayne WBC 5.1 103/ul Normal 4.0-11.0 [facility] Comment on above: Performed By: #### A MY, CMP, LIPA #### [facility] [address] [place] [address] Dr. Lawrence Wayne INFLUENZA A AND B AGon 06-17 [facility] SEE BELOW Normal [facility] Comment on above: Result Comment: Nega tive for Flu B protein antigen. Infection due to Flu B cannot be ruled out. Flu B antigen in the sample may be below the detection limit of the test. Performed By: #### A MY, CMP, LIPA #### [facility] [address] [place] [address] Dr. Lawrence Wayne INFLUENZA A AG Positive Abnormal NEGATIVE SEE COMMENT [facility] [facility] Comment on above: Performed By: #### A MY, CMP, LIPA #### [facility] [address] [place] [address] Dr. Lawrence Wayne INFLUENZA B AG Negative Normal NEGATIVE SEE COMMENT [facility] Comment on above: Performed By: #### A MY, CMP, LIPA #### [facility] [address] [place] [address] Dr. Lawrence Wayne PROF 14(COMP METB)on 023 Albumin [Mass/Vol] 3.4 g/dL Normal 3.4-5.0 [facility] Comment on above: Performed By: #### A MY, CMP, LIPA #### [facility] [address] [place] [address] Dr. Lawrence Wayne Albumin/Globulin [Mass ratio] 0.9 {ratio} Normal [facility] Comment on above: Performed By: #### A MY, CMP, LIPA #### [facility] [address] [address] [address] Lawrence Wayne ALP [Catalytic activity/Vol] 94 U/L Normal 46-116 [facility] Comment on above: Performed By: #### A MY, CMP, LIPA #### [facility] [address] [address] [address] Lawrence Wayne ALT [Catalytic activity/Vol] 36 U/L Normal 14-59 [facility] Comment on above: Performed By: #### A MY, CMP, LIPA #### [facility] [address] [address] [address] Lawrence Wayne Anion gap [Moles/Vol] 18.9 mmol/L Normal [facility] Comment on above: Performed By: #### A MY, CMP, LIPA #### [facility] [address] [address] [address] Lawrence Wayne AST [Catalytic activity/Vol] 32 U/L Normal 15-37 [facility] Comment on above: Performed By: #### A MY, CMP, LIPA #### [facility] [address] [address] [address] Lawrence Wayne Bilirubin [Mass/Vol] 0.4 mg/dL Normal 0.2-1.0 [facility] Comment on above: Performed By: #### A MY, CMP, LIPA #### [facility] [address] [address] [address] Lawrence Wayne Calcium [Mass/Vol] 9.1 mg/dL Normal 8.5-10.1 [facility] Comment on above: Performed By: #### A MY, CMP, LIPA #### [facility] [address] [address] [address] Lawrence Wayne Chloride [Moles/Vol] 100 mmol/L Normal 98-107 [facility] Comment on above: Performed By: #### A MY, CMP, LIPA #### [facility] [address] [address] [address] Lawrence Wayne CO2 [Moles/Vol] 19.7 mmol/L Critically low 21.0-32.0 [facility] Comment on above: Performed By: #### A MY, CMP, LIPA #### [facility] [address] [address] [address] Lawrence Wayne Creatinine [Mass/Vol] 1.13 mg/dL Critically high 0.55-1.02 [facility] Comment on above: Performed By: #### A MY, CMP, LIPA #### [facility] [address] [place] [address] Dr. Lawrence Wayne EGFR-AF SRI LANKAN 58 mL/min/1.73m2 Critically low >=60 [facility] Comment on above: Performed By: #### A MY, CMP, LIPA #### [facility] [address] [place] [address] Dr. Lawrence Wayne EGFR-NON AF SRI LANKAN 48 mL/min/1.73m2 Critically low >=60 [facility] Comment on above: Performed By: #### A MY, CMP, LIPA #### [facility] [address] [place] [address] Dr. Lawrence Wayne Globulin (S) [Mass/Vol] 3.9 g/dL Normal [facility] Comment on above: Performed By: #### A MY, CMP, LIPA #### [facility] [address] [place] [address] Dr. Lawrence Wayne Glucose [Mass/Vol] 105 mg/dL Normal 74-106 [facility] Comment on above: Performed By: #### A MY, CMP, LIPA #### [facility] [address] [place] [address] Dr. Lawrence Wayne Potassium [Moles/Vol] 3.6 mmol/L Normal 3.5-5.1 [facility] Comment on above: Performed By: #### A MY, CMP, LIPA #### [facility] [address] [place] [address] Dr. Lawrence Wayne Protein [Mass/Vol] 7.3 g/dL Normal 6.4-8.2 [facility] Comment on above: Performed By: #### A MY, CMP, LIPA #### [facility] [address] [address] [address] Lawrence Wayne Sodium [Moles/Vol] 135 mmol/L Critically low 136-145 [facility] Comment on above: Performed By: #### A MY, CMP, LIPA #### [facility] [address] [address] [address] Lawrence Wayne Urea nitrogen [Mass/Vol] 13.0 mg/dL Normal 7.0-18.0 [facility] Comment on above: Performed By: #### A MY, CMP, LIPA #### [facility] [address] [address] [address] Lawrence Wayne Urea nitrogen/Creatini ne [Mass ratio] 11.5 mg/mg Normal [facility] Comment on above: Performed By: #### A GARTH, CMP, LIPA #### [facility] [address] [address] [address] Lawrence Wayne MRI CSPINE WO CONon [...] TYRELL MOREJON Date: 2022-05-20 10:26 Normal [facility] AMYLASEon 05-07-2022 Amylase [Catalytic activity/Vol] 81 U/L Normal 25-115 [facility] Comment on above: Performed By: #### A MY, CMP, LIPA #### [facility] [address] [place] [address] Dr. Lawrence Wayne CBC AUTO DIFFon 05-07-2022 BASO # 0.0 103/ul Normal 0.0-0.1 [facility] Comment on above: Performed By: #### A MY, CMP, LIPA #### [facility] [address] [place] [address] Dr. Lawrence Wayne Basophils/100 WBC (Bld) 0.8 % Normal 0.2-2.0 [facility] Comment on above: Performed By: #### A MY, CMP, LIPA #### [facility] [address] [place] [address] Dr. Lawrence Wayne EO # 0.1 103/ul Normal 0.0-0.7 [facility] Comment on above: Performed By: #### A MY, CMP, LIPA #### [facility] [address] [place] [address] Dr. Lawrence Wayne Eosinophils/100 WBC (Bld) 1.5 % Normal 0.9-7.0 [facility] Comment on above: Performed By: #### A MY, CMP, LIPA #### [facility] [address] [place] [address] Dr. Lawrence Wayne Erythrocyte distribution width (RBC) [Ratio] 12.7 % Normal 11.0-15.0 [facility] Comment on above: Performed By: #### A MY, CMP, LIPA #### [facility] [address] [place] [address] Dr. Lawrence Wayne Hematocrit (Bld) [Volume fraction] 40.5 % Normal 36.0-48.0 [facility] Comment on above: Performed By: #### A MY, CMP, LIPA #### [facility] [address] [place] [address] Dr. Lawrence Wayne Hemoglobin (Bld) [Mass/Vol] 13.8 g/dL Normal 12.0-16.0 [facility] Comment on above: Performed By: #### A MY, CMP, LIPA #### [facility] [address] [place] [address] Dr. Lawrence Wayne IG # 0.01 10e3/ul Normal 0.00-0.03 [facility] Comment on above: Performed By: #### A MY, CMP, LIPA #### [facility] [address] [place] [address] Dr. Lawrence Wayne IG % 0.2 % Normal 0.0-0.5 [facility] Comment on above: Performed By: #### A MY, CMP, LIPA #### [facility] [address] [place] [address] Dr. Lawrence Wayne LYMPH # 1.7 103/ul Normal 1.2-3.8 [facility] Comment on above: Performed By: #### A MY, CMP, LIPA #### [facility] [address] [place] [address] Dr. Lawrence Wayne Lymphocytes/100 WBC (Bld) 32.7 % Normal 20.5-60.0 [facility] Comment on above: Performed By: #### A MY, CMP, LIPA #### [facility] [address] [place] [address] Dr. Lawrence Wayne MANUAL DIFF REQ NO Normal [facility] Comment on above: Performed By: #### A MY, CMP, LIPA #### [facility] [address] [place] [address] Dr. Lawrence Wayne MCH (RBC) [Entitic mass] 30.5 pg Normal 26.7-34.0 [facility] Comment on above: Performed By: #### A MY, CMP, LIPA #### [facility] [address] [place] [address] Dr. Lawrence Wayne MCHC (RBC) [Mass/Vol] 34.1 g/dL Normal 29.9-35.2 [facility] Comment on above: Performed By: #### A MY, CMP, LIPA #### [facility] [address] [place] [address] Dr. Lawrence Wayne MCV (RBC) [Entitic vol] 89.4 fL Normal 81.0-99.0 [facility] Comment on above: Performed By: #### A MY, CMP, LIPA #### [facility] [address] [place] [address] Dr. Lawrence Wayne MONO # 0.6 103/ul Normal 0.3-0.8 [facility] Comment on above: Performed By: #### A MY, CMP, LIPA #### [facility] [address] [place] [address] Dr. Lawrence Wayne Monocytes/100 WBC (Bld) 10.5 % Normal 1.7-12.0 [facility] Comment on above: Performed By: #### A MY, CMP, LIPA #### [facility] [address] [place] [address] Dr. Lawrence Wayne NEUT # 2.9 103/ul Normal 1.4-6.5 [facility] Comment on above: Performed By: #### A MY, CMP, LIPA #### [facility] [address] [place] [address] Dr. Lawrence Wayne Neutrophils/100 WBC (Bld) 54.3 % Normal 43.0-75.0 [facility] Comment on above: Performed By: #### A MY, CMP, LIPA #### [facility] [address] [place] [address] Dr. Lawrence Wayne Platelet mean volume (Bld) [Entitic vol] 9.4 fL Critically low 9.5-13.5 [facility] Comment on above: Performed By: #### A MY, CMP, LIPA #### [facility] [address] [place] [address] Dr. Lawrence Wayne PLT 292 103/ul Normal 150-450 [facility] Comment on above: Performed By: #### A MY, CMP, LIPA #### [facility] [address] [address] [address] Lawrence Wayne RBC 4.53 106/ul Normal 4.20-5.40 [facility] Comment on above: Performed By: #### A MY, CMP, LIPA #### [facility] [address] [address] [address] Lawrence Wayne WBC 5.3 103/ul Normal 4.0-11.0 [facility] Comment on above: Performed By: #### A MY, CMP, LIPA #### [facility] [address] [place] [address] Dr. Lawrence Wayne LIPASEon 05-07-2022 Lipase [Catalytic activity/Vol] 86.0 U/L Normal 73.0-393.0 [facility] Comment on above: Performed By: #### A MY, CMP, LIPA #### [facility] [address] [place] [address] Dr. Lawrence Wayne PROF 14(COMP METB)on 022 Albumin [Mass/Vol] 3.7 g/dL Normal 3.4-5.0 [facility] Comment on above: Performed By: #### A MY, CMP, LIPA #### [facility] [address] [place] [address] Dr. Lawrence Wayne Albumin/Globulin [Mass ratio] 1.1 {ratio} Normal [facility] Comment on above: Performed By: #### A MY, CMP, LIPA #### [facility] [address] [place] [address] Dr. Lawrence Wayne ALP [Catalytic activity/Vol] 96 U/L Normal 46-116 [facility] Comment on above: Performed By: #### A MY, CMP, LIPA #### [facility] [address] [place] [address] Dr. Lawrence Wayne ALT [Catalytic activity/Vol] 24 U/L Normal 14-59 [facility] Comment on above: Performed By: #### A MY, CMP, LIPA #### [facility] [address] [place] [address] Dr. Lawrence Wayne Anion gap [Moles/Vol] 8.3 mmol/L Normal [facility] Comment on above: Performed By: #### A MY, CMP, LIPA #### [facility] [address] [address] [address] Lawrence Wayne AST [Catalytic activity/Vol] 19 U/L Normal 15-37 [facility] Comment on above: Performed By: #### A MY, CMP, LIPA #### [facility] [address] [address] [address] Lawrence Wayne Bilirubin [Mass/Vol] 0.2 mg/dL Normal 0.2-1.0 [facility] Comment on above: Performed By: #### A MY, CMP, LIPA #### [facility] [address] [address] [address] Lawrence Wayne Calcium [Mass/Vol] 9.1 mg/dL Normal 8.5-10.1 [facility] Comment on above: Performed By: #### A MY, CMP, LIPA #### [facility] [address] [address] [address] Lawrence Wayne Chloride [Moles/Vol] 103 mmol/L Normal 98-107 [facility] Comment on above: Performed By: #### A MY, CMP, LIPA #### [facility] [address] [address] [address] Lawrence Wayne CO2 [Moles/Vol] 30.6 mmol/L Normal 21.0-32.0 [facility] Comment on above: Performed By: #### A MY, CMP, LIPA #### [facility] [address] [place] [address] Dr. Lawrence Wayne Creatinine [Mass/Vol] 0.88 mg/dL Normal 0.55-1.02 [facility] Comment on above: Performed By: #### A MY, CMP, LIPA #### [facility] [address] [address] [address] Lawrence Wayne EGFR-AF SRI LANKAN >60 Normal >=60 [facility] Comment on above: Performed By: #### A MY, CMP, LIPA #### [facility] [address] [address] [address] Lawrence Wayne EGFR-NON AF SRI LANKAN >60 Normal >=60 [facility] Comment on above: Performed By: #### A MY, CMP, LIPA #### [facility] [address] [address] [address] Lawrence Wayne Globulin (S) [Mass/Vol] 3.4 g/dL Normal [facility] Comment on above: Performed By: #### A MY, CMP, LIPA #### [facility] [address] [address] [address] Lawrence Wayne Glucose [Mass/Vol] 94 mg/dL Normal 74-106 [facility] Comment on above: Performed By: #### A MY, CMP, LIPA #### [facility] [address] [place] [address] Dr. Lawrence Wayne Potassium [Moles/Vol] 3.9 mmol/L Normal 3.5-5.1 [facility] Comment on above: Performed By: #### A MY, CMP, LIPA #### [facility] [address] [address] [address] Lawrence Wayne Protein [Mass/Vol] 7.1 g/dL Normal 6.4-8.2 [facility] Comment on above: Performed By: #### A MY, CMP, LIPA #### [facility] [address] [place] [address] Dr. Lawrence Wayne Sodium [Moles/Vol] 138 mmol/L Normal 136-145 [facility] Comment on above: Performed By: #### A MY, CMP, LIPA #### [facility] [address] [address] [address] Lawrence Wayne Urea nitrogen [Mass/Vol] 10.0 mg/dL Normal 7.0-18.0 [facility] Comment on above: Performed By: #### A MY, CMP, LIPA #### [facility] [address] [place] [address] Dr. Lawrence Wayne Urea nitrogen/Creatini ne [Mass ratio] 11.4 mg/mg Normal [facility] Comment on above: Performed By: #### A MY, CMP, LIPA #### [facility] [address] [address] [address] Lawrence Wayne MG MAMM SCREEN 3D QING CADon 03-26-2022 MG MAMM SCREEN 3D QING CAD Patient: SKIP HONG. Exam Date: 03/26/2022 : 1955 Gender:F Ordering : DR RADHA LYMAN . Admission #: [id number] Family : Order #: [id number] CLICK HERE TO VIEW EXAM RADIOLOGY REPORT [...] breast cancer at age 30. LOCATION: [facility] BREAST COMPOSITION: Heterogeneously dense,which may obscure [...] MD on 03/26/2022 at 09:53 Normal [facility] NM STRESS/REST MULTIon 03-24 NM STRESS/REST MULTI Patient: SKIP HONG. Exam Date: 03/24/2022 : 1955 Gender:F Ordering : DR ANITHA RAMEY . Admission #: [id number] Family : Order #: [id number] CLICK HERE TO VIEW EXAM RADIOLOGY REPORT [...] MD on 03/25/2022 at 07:15 Normal [facility] T4, T3U, FTI LABCORPon 02-19 Free Thyroxine Index 2.3 Normal 1.2-4.9 [facility] Comment on above: Performed By: #### A MY, CMP, LIPA #### [facility] [address] [place] [address] Dr. Lawrence Wayne T3 Uptake 28 % Normal 24-39 [facility] Comment on above: Performed By: #### A MY, CMP, LIPA #### [facility] [address] [address] [address] Lawrence Wayne T4 [Mass/Vol] 8.3 ug/dL Normal 4.5-12.0 [facility] Comment on above: Performed By: #### A MY, CMP, LIPA #### [facility] [address] [address] [address] Lawrence Wayne BNPon 02-18-2022 Natriuretic peptide B (Bld) [Mass/Vol] 78.0 pg/mL Normal <=900.0 [facility] Comment on above: Performed By: #### A MY, CMP, LIPA #### [facility] [address] [place], [place] [address] Dr. Lawrence Wayne CBC AUTO DIFFon 02-18-2022 BASO # 0.1 103/ul Normal 0.0-0.1 [facility] Comment on above: Performed By: #### C BC ####[facility] [address] [address]DrKim Wayne Basophils/100 WBC (Bld) 0.9 % Normal 0.2-2.0 [facility] Comment on above: Performed By: #### C BC ####[facility] [address] [address]DrKim Wayne EO # 0.1 103/ul Normal 0.0-0.7 [facility] Comment on above: Performed By: #### C BC ####[facility] [address] [address]DrKim Wayne Eosinophils/100 WBC (Bld) 1.1 % Normal 0.9-7.0 [facility] Comment on above: Performed By: #### C BC ####[facility] [address] [address]DrKim Wayne Erythrocyte distribution width (RBC) [Ratio] 12.6 % Normal 11.0-15.0 [facility] Comment on above: Performed By: #### C BC ####[facility] [address] [address]DrKim Wayne Hematocrit (Bld) [Volume fraction] 44.4 % Normal 36.0-48.0 [facility] Comment on above: Performed By: #### C BC ####[facility] [address] [address]DrKim Wayne Hemoglobin (Bld) [Mass/Vol] 14.7 g/dL Normal 12.0-16.0 [facility] Comment on above: Performed By: #### C BC ####[facility] [address] [address]Dr. Lawrence Wayne IG # 0.02 10e3/ul Normal 0.00-0.03 [facility] Comment on above: Performed By: #### C BC ####[facility] [address] [address]Dr. Lawrence Wayne IG % 0.3 % Normal 0.0-0.5 [facility] Comment on above: Performed By: #### C BC ####[facility] [address] [address]Dr. Lawrence Tone LYMPH # 1.8 103/ul Normal 1.2-3.8 [facility] Comment on above: Performed By: #### C BC ####[facility] [address] [address]Dr. Lawrence Wayne Lymphocytes/100 WBC (Bld) 26.1 % Normal 20.5-60.0 [facility] Comment on above: Performed By: #### C BC ####[facility] [address] [address]Dr. Laraantonio Wayne MANUAL DIFF REQ NO Normal [facility] Comment on above: Performed By: #### C BC ####[facility] [address] [address]Dr. Lawrence Wayne MCH (RBC) [Entitic mass] 30.2 pg Normal 26.7-34.0 [facility] Comment on above: Performed By: #### C BC ####[facility] [address] [address]Dr. Lawrence Wayne MCHC (RBC) [Mass/Vol] 33.1 g/dL Normal 29.9-35.2 [facility] Comment on above: Performed By: #### C BC ####[facility] [address] [place], [place] [address]Dr. Lawrence Wayne MCV (RBC) [Entitic vol] 91.4 fL Normal 81.0-99.0 [facility] Comment on above: Performed By: #### C BC ####[facility] [address] [place], [place] [id number]. Lawrence Wayne MONO # 0.8 103/ul Normal 0.3-0.8 [facility] Comment on above: Performed By: #### C BC ####[facility] [address] [address]Dr. Lawrence Wayne Monocytes/100 WBC (Bld) 11.0 % Normal 1.7-12.0 [facility] Comment on above: Performed By: #### C BC ####[facility] [address] [place], [place] [address]Dr. Lawrence Wayne NEUT # 4.2 103/ul Normal 1.4-6.5 [facility] Comment on above: Performed By: #### C BC ####[facility] [address] [place], [place] [address]Dr. Lawrence Wayne Neutrophils/100 WBC (Bld) 60.6 % Normal 43.0-75.0 [facility] Comment on above: Performed By: #### C BC ####[facility] [address] [place], [place] [address]Dr. Lawrence Wayne Platelet mean volume (Bld) [Entitic vol] 9.2 fL Critically low 9.5-13.5 [facility] Comment on above: Performed By: #### C BC ####[facility] [address] [place], [place] [address]Dr. Lawrence Wayne PLT 322 103/ul Normal 150-450 [facility] Comment on above: Performed By: #### C BC ####[facility] [address] [place], [place] [id number]. Lawrence Wayne RBC 4.86 106/ul Normal 4.20-5.40 [facility] Comment on above: Performed By: #### C BC ####[facility] [address] [place], [place] [address]Dr. Lawrence Wayne WBC 7.0 103/ul Normal 4.0-11.0 [facility] Comment on above: Performed By: #### C BC ####[facility] [address] [place], [place] [address]DrKim Wayne IRONon 02-18-2022 Iron [Mass/Vol] 89.0 ug/dL Normal 50.0-170.0 [facility] Comment on above: Performed By: #### A MY, CMP, LIPA #### [facility] [facility] [address] [place] [address] Dr. Lawrence Wayne PROF 14(COMP METB)on 022 Albumin [Mass/Vol] 4.0 g/dL Normal 3.4-5.0 [facility] Comment on above: Performed By: #### A MY, CMP, LIPA #### [facility] [address] [address] [address] aLwrence Wayne Albumin/Globulin [Mass ratio] 1.1 {ratio} Normal [facility] Comment on above: Performed By: #### A MY, CMP, LIPA #### [facility] [address] [place] [address] Dr. Lawrence Wayne ALP [Catalytic activity/Vol] 98 U/L Normal 46-116 [facility] Comment on above: Performed By: #### A MY, CMP, LIPA #### [facility] [address] [address] [address] Lawrence Wayne ALT [Catalytic activity/Vol] 23 U/L Normal 14-59 [facility] Comment on above: Performed By: #### A MY, CMP, LIPA #### [facility] [address] [address] [address] Lawrence Wayne Anion gap [Moles/Vol] 4.9 mmol/L Normal [facility] Comment on above: Performed By: #### A MY, CMP, LIPA #### [facility] [address] [place] [address] Dr. Lawrence Wayne AST [Catalytic activity/Vol] 19 U/L Normal 15-37 [facility] Comment on above: Performed By: #### A MY, CMP, LIPA #### [facility] [address] [address] [address] Lawrence Wayne Bilirubin [Mass/Vol] 0.4 mg/dL Normal 0.2-1.0 [facility] Comment on above: Performed By: #### A MY, CMP, LIPA #### [facility] [address] [place] [address] Dr. Lawrence Wayne Calcium [Mass/Vol] 9.5 mg/dL Normal 8.5-10.1 [facility] Comment on above: Performed By: #### A MY, CMP, LIPA #### [facility] [address] [place] [address] Dr. Lawrence Wayne Chloride [Moles/Vol] 102 mmol/L Normal 98-107 [facility] Comment on above: Performed By: #### A MY, CMP, LIPA #### [facility] [address] [place] [address] Dr. Lawrence Wayne CO2 [Moles/Vol] 30.1 mmol/L Normal 21.0-32.0 [facility] Comment on above: Performed By: #### A MY, CMP, LIPA #### [facility] [address] [place] [address] Dr. Lawrence Wayne Creatinine [Mass/Vol] 0.99 mg/dL Normal 0.55-1.02 [facility] Comment on above: Performed By: #### A MY, CMP, LIPA #### [facility] [address] [place] [address] Dr. Lawrence Wayne EGFR-AF SRI LANKAN >60 Normal >=60 [facility] Comment on above: Performed By: #### A MY, CMP, LIPA #### [facility] [address] [place] [address] Dr. Lawrence Wayne EGFR-NON AF SRI LANKAN 56 mL/min/1.73m2 Critically low >=60 [facility] Comment on above: Performed By: #### A MY, CMP, LIPA #### [facility] [address] [place] [address] Dr. Lawrence Wayne Globulin (S) [Mass/Vol] 3.5 g/dL Normal [facility] Comment on above: Performed By: #### A MY, CMP, LIPA #### [facility] [address] [place] [address] Dr. Lawrence Wayne Glucose [Mass/Vol] 100 mg/dL Normal 74-106 [facility] Comment on above: Performed By: #### A MY, CMP, LIPA #### [facility] [address] [address] [address] Lawrence Wayne Potassium [Moles/Vol] 4.0 mmol/L Normal 3.5-5.1 [facility] Comment on above: Performed By: #### A MY, CMP, LIPA #### [facility] [address] [address] [address] Lawrence Wayne Protein [Mass/Vol] 7.5 g/dL Normal 6.4-8.2 [facility] Comment on above: Performed By: #### A MY CMP, LIPA #### [facility] [address] [place] [address] Dr. Lawrence Wayne Sodium [Moles/Vol] 133 mmol/L Critically low 136-145 [facility] Comment on above: Performed By: #### A MY, CMP, LIPA #### [facility] [address] [place] [address] Dr. Lawrence Wayne Urea nitrogen [Mass/Vol] 14.0 mg/dL Normal 7.0-18.0 [facility] Comment on above: Performed By: #### A MY, CMP, LIPA #### [facility] [address] [place] [address] Dr. Lawrence Wayne Urea nitrogen/Creatini ne [Mass ratio] 14.1 mg/mg Normal [facility] Comment on above: Performed By: #### A MY, CMP, LIPA #### [facility] [address] [place] [address] Dr. Lawrence Wayne TSHon 02-18-2022 TSH 1.273 uIU/mL Normal 0.358-3.74 0 [facility] Comment on above: Performed By: #### A MY, CMP, LIPA #### [facility] [address] [place] [address] Dr. Lawrence Wayne AMMONIAon 02-07-2022 Ammonia (P) [Mass/Vol] ug/dL Critically low 11-32 [facility] Comment on above: Performed By: #### A MM ####[facility] [address] [address]DrKim Wayne AMYLASEon 02-07-2022 Amylase [Catalytic activity/Vol] 88 U/L Normal 25-115 [facility] Comment on above: Performed By: #### A MY, CMP, LIPA #### [facility] [address] [address] [address] Lawrence Wayne BNPon 02-07-2022 Natriuretic peptide B (Bld) [Mass/Vol] 236.0 pg/mL Normal <=900.0 [facility] Comment on above: Performed By: #### A MY, CMP, LIPA #### [facility] [address] [address] [address] Lawrence Wayne CBC AUTO DIFFon 02-07-2022 BASO # 0.0 103/ul Normal 0.0-0.1 [facility] Comment on above: Performed By: #### C BC ####[facility] [address] [place], [place] [address]Dr. Lawrence Wayne Basophils/100 WBC (Bld) 0.7 % Normal 0.2-2.0 [facility] Comment on above: Performed By: #### C BC ####[facility] [address] [place], [place] [address]DrKim Wayne EO # 0.1 103/ul Normal 0.0-0.7 [facility] Comment on above: Performed By: #### C BC ####[facility] [address] [address]Dr. Lawrence Wayne Eosinophils/100 WBC (Bld) 1.3 % Normal 0.9-7.0 [facility] Comment on above: Performed By: #### C BC ####[facility] [address] [place], [place] [address]Dr. Lawrence Wayne Erythrocyte distribution width (RBC) [Ratio] 12.7 % Normal 11.0-15.0 [facility] Comment on above: Performed By: #### C BC ####[facility] [address] [place], [place] [address]Dr. Lawrence Wayne Hematocrit (Bld) [Volume fraction] 38.7 % Normal 36.0-48.0 [facility] Comment on above: Performed By: #### C BC ####[facility] [address] [address]Dr. Lawrence Wayne Hemoglobin (Bld) [Mass/Vol] 12.4 g/dL Normal 12.0-16.0 [facility] Comment on above: Result Comment: RECE IVING BOLUS AND SALINE Performed By: #### C BC ####[facility] [address] [address]Dr. Lawrence Wayne IG # 0.01 10e3/ul Normal 0.00-0.03 [facility] Comment on above: Performed By: #### C BC ####[facility] [address] [address]Dr. Lawrence Wayne IG % 0.2 % Normal 0.0-0.5 [facility] Comment on above: Performed By: #### C BC ####[facility] [address] [address]Dr. Lawrence Wayne LYMPH # 1.9 103/ul Normal 1.2-3.8 [facility] Comment on above: Performed By: #### C BC ####[facility] [address] [address]Dr. Lawrence Wayne Lymphocytes/100 WBC (Bld) 35.0 % Normal 20.5-60.0 [facility] Comment on above: Performed By: #### C BC ####[facility] [address] [address]Dr. Lawrence Wayne MANUAL DIFF REQ NO Normal [facility] Comment on above: Performed By: #### C BC ####[facility] [address] [address]Dr. Lawrence Wayne MCH (RBC) [Entitic mass] 30.2 pg Normal 26.7-34.0 [facility] Comment on above: Performed By: #### C BC ####[facility] [address] [address]Dr. Lawrence Wayne MCHC (RBC) [Mass/Vol] 32.0 g/dL Normal 29.9-35.2 [facility] Comment on above: Performed By: #### C BC ####[facility] [address] [id number]. Lawrence Wayne MCV (RBC) [Entitic vol] 94.2 fL Normal 81.0-99.0 [facility] Comment on above: Performed By: #### C BC ####[facility] [address] [id number]. Lawrence Tone MONO # 0.6 103/ul Normal 0.3-0.8 [facility] Comment on above: Performed By: #### C BC ####[facility] [address] [address]Dr. Lawrence Wayne Monocytes/100 WBC (Bld) 10.7 % Normal 1.7-12.0 [facility] Comment on above: Performed By: #### C BC ####[facility] [address] [address]Dr. Lawrence Tone NEUT # 2.9 103/ul Normal 1.4-6.5 [facility] Comment on above: Performed By: #### C BC ####[facility] [address] [address]Dr. Lawrence Tone Neutrophils/100 WBC (Bld) 52.1 % Normal 43.0-75.0 [facility] Comment on above: Performed By: #### C BC ####[facility] [address] [id number]. Lawrence Tone Platelet mean volume (Bld) [Entitic vol] 9.5 fL Normal 9.5-13.5 [facility] Comment on above: Performed By: #### C BC ####[facility] [address] [id number]. Laraantonio Tone PLT 260 103/ul Normal 150-450 [facility] Comment on above: Performed By: #### C BC ####[facility] [address] [place], [place] [address]WwKim Wayne RBC 4.11 106/ul Critically low 4.20-5.40 [facility] Comment on above: Performed By: #### C BC ####[facility] [address] [address]DrKim Wayne WBC 5.5 103/ul Normal 4.0-11.0 [facility] Comment on above: Performed By: #### C BC ####[facility] [address] [address]DrKim Wayne PROF 14(COMP METB)on 022 Albumin [Mass/Vol] 3.0 g/dL Critically low 3.4-5.0 [facility] Comment on above: Performed By: #### A MY, CMP, LIPA #### [facility] [address] [address] [address] Lawrence Wayne Albumin/Globulin [Mass ratio] 1.1 {ratio} Normal [facility] Comment on above: Performed By: #### A MY, CMP, LIPA #### [facility] [address] [address] [address] Lawrence Wayne ALP [Catalytic activity/Vol] 77 U/L Normal 46-116 [facility] Comment on above: Performed By: #### A MY, CMP, LIPA #### [facility] [address] [address] [address] Lawrence Wayne ALT [Catalytic activity/Vol] 21 U/L Normal 14-59 [facility] Comment on above: Performed By: #### A MY, CMP, LIPA #### [facility] [address] [address] [address] Lawrence Wayne Anion gap [Moles/Vol] 10.9 mmol/L Normal [facility] Comment on above: Performed By: #### A MY, CMP, LIPA #### [facility] [address] [address] [address] Lawrence Wayne AST [Catalytic activity/Vol] 15 U/L Normal 15-37 [facility] Comment on above: Performed By: #### A MY, CMP, LIPA #### [facility] [address] [address] [address] Lawrence Wayne Bilirubin [Mass/Vol] 0.3 mg/dL Normal 0.2-1.0 [facility] Comment on above: Performed By: #### A MY, CMP, LIPA #### [facility] [address] [place] [address] Dr. Lawrence Wayne Calcium [Mass/Vol] 8.4 mg/dL Critically low 8.5-10.1 [facility] Comment on above: Performed By: #### A MY, CMP, LIPA #### [facility] [address] [address] [address] Lawrence Wayne Chloride [Moles/Vol] 110 mmol/L Critically high 98-107 [facility] Comment on above: Performed By: #### A MY, CMP, LIPA #### [facility] [address] [place] [address] Dr. Lawrence Wayne CO2 [Moles/Vol] 25.0 mmol/L Normal 21.0-32.0 [facility] Comment on above: Performed By: #### A MY, CMP, LIPA #### [facility] [address] [place] [address] Dr. Lawrence Wayne Creatinine [Mass/Vol] 0.87 mg/dL Normal 0.55-1.02 [facility] Comment on above: Performed By: #### A MY, CMP, LIPA #### [facility] [address] [place] [address] Dr. Lawrence Wayne EGFR-AF SRI LANKAN >60 Normal >=60 [facility] Comment on above: Performed By: #### A MY, CMP, LIPA #### [facility] [address] [place] [address] Dr. Lawrence Wayne EGFR-NON AF SRI LANKAN >60 Normal >=60 [facility] Comment on above: Performed By: #### A MY, CMP, LIPA #### [facility] [address] [place] [address] Dr. Lawrence Wayne Globulin (S) [Mass/Vol] 2.8 g/dL Normal [facility] Comment on above: Performed By: #### A MY, CMP, LIPA #### [facility] [address] [address] [address] Lawrence Wayne Glucose [Mass/Vol] 96 mg/dL Normal 74-106 [facility] Comment on above: Performed By: #### A MY, CMP, LIPA #### [facility] [address] [address] [address] Lawrence Wayne Potassium [Moles/Vol] 3.9 mmol/L Normal 3.5-5.1 [facility] Comment on above: Performed By: #### A MY, CMP, LIPA #### [facility] [address] [place] [address] Dr. Lawrence Wayne Protein [Mass/Vol] 5.8 g/dL Critically low 6.4-8.2 [facility] Comment on above: Performed By: #### A MY, CMP, LIPA #### [facility] [address] [address] [address] Lawrence Wayne Sodium [Moles/Vol] 142 mmol/L Normal 136-145 [facility] Comment on above: Performed By: #### A MY, CMP, LIPA #### [facility] [address] [address] [address] Lawrence Wayne Urea nitrogen [Mass/Vol] 11.0 mg/dL Normal 7.0-18.0 [facility] Comment on above: Performed By: #### A MY, CMP, LIPA #### [facility] [address] [address] [address] Lawrence Wayne Urea nitrogen/Creatini ne [Mass ratio] 12.6 mg/mg Normal [facility] Comment on above: Performed By: #### A MY, CMP, LIPA #### [facility] [address] [place] [address] Dr. Lawrence Wayne AMMONIAon 02-06-2022 Ammonia (P) [Moles/Vol] 44 umol/L Critically high 11-32 [facility] Comment on above: Performed By: #### A MY, CMP, LIPA #### [facility] [address] [address] [address] Lawrence Wayne AMYLASEon 02-06-2022 Amylase [Catalytic activity/Vol] 89 U/L Normal 25-115 [facility] Comment on above: Performed By: #### M G, CMP, CMADM, BNP, ALIYAH, LIPA #### [facility] [address] [address] [address] Lawrence Wayne BNPon 02-06-2022 Natriuretic peptide B (Bld) [Mass/Vol] 103.0 pg/mL Normal <=900.0 [facility] Comment on above: Performed By: #### M G, CMP, CMADM, BNP, ALIYAH, LIPA ####[facility] [address] [address]Dr. Lawrence Wayne CARDIAC ORAL ADMITon 022 CK [Catalytic activity/Vol] 65 U/L Normal 26-192 [facility] Comment on above: Performed By: #### M G, CMP, CMADM, BNP, ALIYAH, LIPA #### [facility] [address] [address] [address] Lawrence Wayne CK.MB [Mass/Vol] 1.16 ng/mL Normal <=3.60 [facility] Comment on above: Performed By: #### M G, CMP, CMADM, BNP, ALIYAH, LIPA #### [facility] [address] [address] [address] Lawrence Wayne HSTROP <4.0 Normal 4.0-51.3 [facility] Comment on above: Result Comment: CUT- OFF POINTS HAVE BEEN ESTABLISHED BASED ON THE FOURTH UNIVERSAL DEFINITIONS OF MYOCARDIAL INFARCTION. THE UPPER REFERENCE LIMIT (URL) OF TROPONIN, DEFINED THE 99TH PERCENTILE OF cTnI DISTRIBUTION IN A REFERENCE POPULATION, HAS BEEN CONFIRMED THE DECISION THRESHOLD FOR NV DIAGNOSIS. Performed By: #### M G, CMP, CMADM, BNP, ALIYAH, LIPA #### [facility] [address] [address] [address] Lawrence Wayne GEORGI 47 ng/mL Normal 9-82 [facility] Comment on above: Performed By: #### M G, CMP, CMADM, BNP, ALIYAH, LIPA #### [facility] [address] [place], [place] [address] Dr. Lawrence Wayne CBC AUTO DIFFon 02-06-2022 BASO # 0.1 103/ul Normal 0.0-0.1 [facility] Comment on above: Performed By: #### C BC ####[facility] [address] [id number] Wayne Basophils/100 WBC (Bld) 0.7 % Normal 0.2-2.0 [facility] Comment on above: Performed By: #### C BC ####[facility] [address] [id number]. Lawrence Wayne EO # 0.1 103/ul Normal 0.0-0.7 [facility] Comment on above: Performed By: #### C BC ####[facility] [address] [address]DrKim Wayne Eosinophils/100 WBC (Bld) 1.1 % Normal 0.9-7.0 [facility] Comment on above: Performed By: #### C BC ####[facility] [address] [address]DrKim Wayne Erythrocyte distribution width (RBC) [Ratio] 12.6 % Normal 11.0-15.0 [facility] Comment on above: Performed By: #### C BC ####[facility] [address] [address]DrKim Wayne Hematocrit (Bld) [Volume fraction] 44.3 % Normal 36.0-48.0 [facility] Comment on above: Performed By: #### C BC ####[facility] [address] [id number] Wayne Hemoglobin (Bld) [Mass/Vol] 14.4 g/dL Normal 12.0-16.0 [facility] Comment on above: Performed By: #### C BC ####[facility] [address] [address]Dr. Lawrence Wayne IG # 0.01 10e3/ul Normal 0.00-0.03 [facility] Comment on above: Performed By: #### C BC ####[facility] [address] [address]Dr. Lawrence Wayne IG % 0.1 % Normal 0.0-0.5 [facility] Comment on above: Performed By: #### C BC ####[facility] [address] [place], [place] [address]Dr. Lawrence Wayne LYMPH # 2.1 103/ul Normal 1.2-3.8 [facility] Comment on above: Performed By: #### C BC ####[facility] [address] [place], [place] [address]Dr. Lawrence Wayne Lymphocytes/100 WBC (Bld) 29.6 % Normal 20.5-60.0 [facility] Comment on above: Performed By: #### C BC ####[facility] [address] [place], [place] [address]Dr. Lawrence Wayne MANUAL DIFF REQ NO Normal [facility] Comment on above: Performed By: #### C BC ####[facility] [address] [place], [place] [address]Dr. Lawrence Wayne MCH (RBC) [Entitic mass] 30.4 pg Normal 26.7-34.0 [facility] Comment on above: Performed By: #### C BC ####[facility] [address] [place], [place] [address]Dr. Lawrence Wayne MCHC (RBC) [Mass/Vol] 32.5 g/dL Normal 29.9-35.2 [facility] Comment on above: Performed By: #### C BC ####[facility] [address] [place], [place] [address]DrKim Wayne MCV (RBC) [Entitic vol] 93.7 fL Normal 81.0-99.0 [facility] Comment on above: Performed By: #### C BC ####[facility] [address] [place], [place] [address]DrKim Wayne MONO # 0.8 103/ul Normal 0.3-0.8 [facility] Comment on above: Performed By: #### C BC ####[facility] [address] [id number]. Lawrence Wayne Monocytes/100 WBC (Bld) 10.6 % Normal 1.7-12.0 [facility] Comment on above: Performed By: #### C BC ####[facility] [address] [id number]. Lawrence Wayne NEUT # 4.1 103/ul Normal 1.4-6.5 [facility] Comment on above: Performed By: #### C BC ####[facility] [address] [address]Dr. Lawrence Wayne Neutrophils/100 WBC (Bld) 57.9 % Normal 43.0-75.0 [facility] Comment on above: Performed By: #### C BC ####[facility] [address] [id number]. Lawrence Wayne Platelet mean volume (Bld) [Entitic vol] 9.3 fL Critically low 9.5-13.5 [facility] Comment on above: Performed By: #### C BC ####[facility] [address] [address]Dr. Lawrence Wayne PLT 294 103/ul Normal 150-450 [facility] Comment on above: Performed By: #### C BC ####[facility] [address] [place] [address]Dr. Lawernce Wayne RBC 4.73 106/ul Normal 4.20-5.40 [facility] Comment on above: Performed By: #### C BC ####[facility] [address] [place] [id number]. Lawrence Wayne WBC 7.1 103/ul Normal 4.0-11.0 [facility] Comment on above: Performed By: #### C BC ####[facility] [address] [place] [id number]. Lawrence Wayne CULTURE BLOODon 02-06-2022 Microscopic examination of blood, culture Culture Observations: NO GROWTH AT 5 DAYS. Normal [facility] Comment on above: Performed By: #### B LDCX2 ####[facility] [id number] [id number]. Lawrence Wayne Microscopic examination of blood, culture Culture Observations: NO GROWTH AT 5 DAYS. Normal [facility] Comment on above: Performed By: #### B LDCX1 ####[facility] [id number] [place], [place] [address]Ds. Lawrence Wayne CULTURE URINEon 02-06-2022 CULTURE URINE Culture Observations : NO GROWTH. Normal [facility] Comment on above: Performed By: #### U RCX ####[facility] [id number] [id number]. Lawrence Wayne Covid-19 PCR (CVDTB)on 01-14 SARS-CoV-2 (COVID-19) RNA EVELIA+probe Ql (Unsp spec) Not detected Normal NOT DETECTED [facility] Comment on above: Result Comment: When [...] for this test is supported by the [employer] Tender of Health and Human Service's declaration that [...] be used). Performed By: #### C VDTBH ####[facility] [id number] [id number]. Lawrence Wayne LACTATE/LACTIC ACIDon 2021 Lactate [Moles/Vol] 1.1 mmol/L Normal 0.4-1.9 [facility] Comment on above: Performed By: #### A MY, CMP, LIPA #### [facility] [address] [address] [address] Lawrence Wayne LIPASEon 02-06-2022 Lipase [Catalytic activity/Vol] 107.0 U/L Normal 73.0-393.0 [facility] Comment on above: Performed By: #### M G, CMP, CMADM, BNP, ALIYAH, LIPA #### [facility] [address] [address] [address] Lawrence Wayne MAGNESIUMon 02-06-2022 Magnesium [Mass/Vol] 2.3 mg/dL Normal 1.8-2.4 [facility] Comment on above: Performed By: #### M G, CMP, CMADM, BNP, ALIYAH, LIPA ####[facility] [id number] [address]Dr. Lawrence Wayne PROF 14(COMP METB)on 022 Albumin [Mass/Vol] 3.8 g/dL Normal 3.4-5.0 [facility] Comment on above: Performed By: #### M G, CMP, CMADM, BNP, ALIYAH, LIPA #### [facility] [address] [address] [address] Lawrence Wayne Albumin/Globulin [Mass ratio] 1.1 {ratio} Normal [facility] Comment on above: Performed By: #### M G, CMP, CMADM, BNP, ALIYAH, LIPA #### [facility] [address] [address] [address] Lawrence Wayne ALP [Catalytic activity/Vol] 98 U/L Normal 46-116 [facility] Comment on above: Performed By: #### M G, CMP, CMADM, BNP, ALIYAH, LIPA #### [facility] [address] [address] [address] Lawrence Wayne ALT [Catalytic activity/Vol] 26 U/L Normal 14-59 [facility] Comment on above: Performed By: #### M G, CMP, CMADM, BNP, ALIYAH, LIPA #### [facility] [address] [address] [address] Lawrence Wayne Anion gap [Moles/Vol] 12.9 mmol/L Normal [facility] Comment on above: Performed By: #### M G, CMP, CMADM, BNP, ALIYAH, LIPA #### [facility] [address] [place] [address] Dr. Lawrence Wayne AST [Catalytic activity/Vol] 25 U/L Normal 15-37 [facility] Comment on above: Performed By: #### M G, CMP, CMADM, BNP, ALIYAH, LIPA #### [facility] [address] [place] [address] Dr. Lawrence Wayne Bilirubin [Mass/Vol] 0.3 mg/dL Normal 0.2-1.0 [facility] Comment on above: Performed By: #### M G, CMP, CMADM, BNP, ALIYAH, LIPA #### [facility] [address] [place] [address] Dr. Lawrence Wayne Calcium [Mass/Vol] 9.1 mg/dL Normal 8.5-10.1 [facility] Comment on above: Performed By: #### M G, CMP, CMADM, BNP, ALIYAH, LIPA #### [facility] [address] [place] [address] Dr. Lawrence Wayne Chloride [Moles/Vol] 105 mmol/L Normal 98-107 [facility] Comment on above: Performed By: #### M G, CMP, CMADM, BNP, ALIYAH, LIPA #### [facility] [address] [place] [address] Dr. Lawrence Wayne CO2 [Moles/Vol] 24.0 mmol/L Normal 21.0-32.0 [facility] Comment on above: Performed By: #### M G, CMP, CMADM, BNP, ALIYAH, LIPA #### [facility] [address] [place] [address] Dr. Lawrence Wayne Creatinine [Mass/Vol] 0.90 mg/dL Normal 0.55-1.02 [facility] Comment on above: Performed By: #### M G, CMP, CMADM, BNP, ALIYAH, LIPA #### [facility] [address] [place] [address] Dr. Lawrence Wayne EGFR-AF SRI LANKAN >60 Normal >=60 [facility] Comment on above: Performed By: #### M G, CMP, CMADM, BNP, ALIYAH, LIPA #### [facility] [address] [address] [address] Lawrence Wayne EGFR-NON AF SRI LANKAN >60 Normal >=60 [facility] Comment on above: Performed By: #### M G, CMP, CMADM, BNP, ALIYAH, LIPA #### [facility] [address] [address] [address] Lawrence Wayne Globulin (S) [Mass/Vol] 3.5 g/dL Normal [facility] Comment on above: Performed By: #### M G, CMP, CMADM, BNP, ALIYAH, LIPA #### [facility] [address] [address] [address] Lawrence Wayne Glucose [Mass/Vol] 95 mg/dL Normal 74-106 [facility] Comment on above: Performed By: #### M G, CMP, CMADM, BNP, ALIYAH, LIPA #### [facility] [address] [address] [address] Lawrence Wayne Potassium [Moles/Vol] 3.9 mmol/L Normal 3.5-5.1 [facility] Comment on above: Performed By: #### M G, CMP, CMADM, BNP, ALIYAH, LIPA #### [facility] [address] [address] [address] Lawrence Wayne Protein [Mass/Vol] 7.3 g/dL Normal 6.4-8.2 [facility] Comment on above: Performed By: #### M G, CMP, CMADM, BNP, ALIYAH, LIPA #### [facility] [address] [address] [address] Lawrence Wayne Sodium [Moles/Vol] 138 mmol/L Normal 136-145 [facility] Comment on above: Performed By: #### M G, CMP, CMADM, BNP, ALIYAH, LIPA #### [facility] [address] [address] [address] Lawrence Wayne Urea nitrogen [Mass/Vol] 12.0 mg/dL Normal 7.0-18.0 [facility] Comment on above: Performed By: #### M G, CMP, CMADM, BNP, ALIYAH, LIPA #### [facility] [address] [place] [address] Dr. Lawrence Wayne Urea nitrogen/Creatini ne [Mass ratio] 13.3 mg/mg Normal [facility] Comment on above: Performed By: #### M G, CMP, CMADM, BNP, ALIYAH, LIPA #### [facility] [address] [place] [address] Dr. Lawrence Wayne UA RANDOM W/MICROSCOPICon BACTERIA NONE SEEN Normal NONE SEEN [facility] Comment on above: Performed By: #### A MY, CMP, LIPA #### [facility] [address] [place] [address] Dr. Lawrence Wayne Bilirubin Ql (U) Negative Normal NEGATIVE [facility] Comment on above: Performed By: #### A MY, CMP, LIPA #### [facility] [address] [place] [address] Dr. Lawrence Wayne CAST NONE SEEN Normal NONE SEEN [facility] Comment on above: Performed By: #### A MY, CMP, LIPA #### [facility] [address] [place] [address] Dr. Lawrence Wayne Clarity (U) CLEAR Normal CLEAR [facility] Comment on above: Performed By: #### A MY, CMP, LIPA #### [facility] [address] [place] [address] Dr. Lawrence Wayne Color (U) LT. YELLOW Normal YELLOW [facility] Comment on above: Performed By: #### A MY, CMP, LIPA #### [facility] [address] [place] [address] Dr. Lawrence Wayne Crystals LM Nom (Urine sed) NONE SEEN Normal NONE SEEN [facility] Comment on above: Performed By: #### A MY, CMP, LIPA #### [facility] [address] [place] [address] Dr. Lawrence Wayne Epithelial cells LM Ql (Urine sed) FEW Abnormal NONE SEEN /RARE [facility] Comment on above: Performed By: #### A MY, CMP, LIPA #### [facility] [address] [address] [address] Lawrence Wayne Glucose Ql (U) Negative Normal NEGATIVE [facility] Comment on above: Performed By: #### A MY, CMP, LIPA #### [facility] [address] [address] [address] Lawrence Wayne Hemoglobin Ql (U) Negative Normal NEGATIVE [facility] Comment on above: Performed By: #### A MY, CMP, LIPA #### [facility] [address] [address] [address] Lawrence Wayne Ketones Ql (U) Negative Normal NEGATIVE [facility] Comment on above: Performed By: #### A MY, CMP, LIPA #### [facility] [address] [place] [address] Dr. Lawrence Wayne LEUKOCYTES SMALL Abnormal NEGATIVE [facility] Comment on above: Performed By: #### A MY, CMP, LIPA #### [facility] [address] [place] [address] Dr. Lawrence Wayne MUCOUS NONE SEEN Normal NONE SEEN [facility] Comment on above: Performed By: #### A MY, CMP, LIPA #### [facility] [address] [place] [address] Dr. Lawrence Wayne Nitrite Ql (U) Negative Normal NEGATIVE [facility] Comment on above: Performed By: #### A MY, CMP, LIPA #### [facility] [address] [place] [address] Dr. Lawrence Wayne pH (U) 6.0 [pH] Normal 5-9 [facility] Comment on above: Performed By: #### A MY, CMP, LIPA #### [facility] [address] [place] [address] Dr. Lawrence Wayne RBC NONE SEEN Abnormal 0-2 [facility] Comment on above: Performed By: #### A MY, CMP, LIPA #### [facility] [address] [place] [address] Dr. Lawrence Wayne SPEC GRAVITY <=1.005 Abnormal 1.005-<=1. 025 [facility] Comment on above: Performed By: #### A MY, CMP, LIPA #### [facility] [address] [address] [address] Lawrence Wayne UA PROTEIN Negative Normal NEGATIVE/ TRACE [facility] Comment on above: Performed By: #### A MY, CMP, LIPA #### [facility] [address] [address] [address] Lawrence Wayne Urobilinogen Qn (U) 0.2 {Antonina'U}/dL Normal 0.2 - 1.0 [facility] Comment on above: Performed By: #### A MY, CMP, LIPA #### [facility] [address] [place] [address] Dr. Lawrence Wayne WBC 0-2 Abnormal NONE SEEN [facility] Comment on above: Performed By: #### A MY, CMP, LIPA #### [facility] [address] [address] [address] Lawrence Wayne YEAST PRESENT Abnormal NONE SEEN [facility] Comment on above: Performed By: #### A MY, CMP, LIPA #### [facility] [address] [place] [address] Dr. Lawrence Wayne XR ABD FLAT UP_PA [...] TYRELL MOREJON Date: 2022-02-06 16:08 Normal [facility] CTA CHEST WO W CONon 022 [...] by: MARK RASHEED Date: 2021-08-29 12:20 Normal [facility] XR ABD FLAT_UPon 08-27-2021 XR ABD [...] by: ENEDELIA FOLEY Date: 2021-08-27 16:08 Normal [facility] BNPon 08-21-2021 Natriuretic peptide B (Bld) [Mass/Vol] 51.0 pg/mL Normal <=900.0 [facility] Comment on above: Performed By: #### A MY, CMP, LIPA #### [facility] [address] [place] [address] Dr. Lawrence Wayne CBC AUTO DIFFon 08-21-2021 BASO # 0.0 103/ul Normal 0.0-0.1 [facility] Comment on above: Performed By: #### A MY, CMP, LIPA #### [facility] [address] [place] [address] Dr. Lawrence Wayne Basophils/100 WBC (Bld) 0.2 % Normal 0.2-2.0 [facility] Comment on above: Performed By: #### A MY, CMP, LIPA #### [facility] [address] [place] [address] Dr. Lawrence Wayne EO # 0.0 103/ul Normal 0.0-0.7 [facility] Comment on above: Performed By: #### A MY, CMP, LIPA #### [facility] [address] [place] [address] Dr. Lawrence Wayne Eosinophils/100 WBC (Bld) 0.1 % Critically low 0.9-7.0 [facility] Comment on above: Performed By: #### A MY, CMP, LIPA #### [facility] [address] [place] [address] Dr. Lawrence Wayne Erythrocyte distribution width (RBC) [Ratio] 13.3 % Normal 11.0-15.0 [facility] Comment on above: Performed By: #### A MY, CMP, LIPA #### [facility] [address] [place] [address] Dr. Lawrence Wayne Hematocrit (Bld) [Volume fraction] 45.7 % Normal 36.0-48.0 [facility] Comment on above: Performed By: #### A MY, CMP, LIPA #### [facility] [address] [place] [address] Dr. Lawrence Wayne Hemoglobin (Bld) [Mass/Vol] 15.3 g/dL Normal 12.0-16.0 [facility] Comment on above: Performed By: #### A MY, CMP, LIPA #### [facility] [address] [place] [address] Dr. Lawrence Wayne IG # 0.12 10e3/ul Critically high 0.00-0.03 [facility] Comment on above: Performed By: #### A MY, CMP, LIPA #### [facility] [address] [place] [address] Dr. Lawrence Wayne IG % 0.9 % Critically high 0.0-0.5 [facility] Comment on above: Performed By: #### A MY, CMP, LIPA #### [facility] [address] [place] [address] Dr. Lawrence Wayne LYMPH # 1.6 103/ul Normal 1.2-3.8 [facility] Comment on above: Performed By: #### A MY, CMP, LIPA #### [facility] [address] [place] [address] Dr. Lawrence Wyane Lymphocytes/100 WBC (Bld) 11.9 % Critically low 20.5-60.0 [facility] Comment on above: Performed By: #### A MY, CMP, LIPA #### [facility] [address] [place] [address] Dr. Lawrence Wayne MANUAL DIFF REQ NO Normal [facility] Comment on above: Performed By: #### A MY, CMP, LIPA #### [facility] [address] [place] [address] Dr. Lawrence Wayne MCH (RBC) [Entitic mass] 30.2 pg Normal 26.7-34.0 [facility] Comment on above: Performed By: #### A MY, CMP, LIPA #### [facility] [address] [place] [address] Dr. Lawrence Wayne MCHC (RBC) [Mass/Vol] 33.5 g/dL Normal 29.9-35.2 [facility] Comment on above: Performed By: #### A MY, CMP, LIPA #### [facility] [address] [place] [address] Dr. Lawrence Wayne MCV (RBC) [Entitic vol] 90.1 fL Normal 81.0-99.0 [facility] Comment on above: Performed By: #### A MY, CMP, LIPA #### [facility] [address] [place] [address] Dr. Lawrence Wayne MONO # 1.0 103/ul Critically high 0.3-0.8 [facility] Comment on above: Performed By: #### A MY, CMP, LIPA #### [facility] [address] [place] [address] Dr. Lawrence Wayne Monocytes/100 WBC (Bld) 7.2 % Normal 1.7-12.0 [facility] Comment on above: Performed By: #### A MY, CMP, LIPA #### [facility] [address] [place] [address] Dr. Lawrence Wayne NEUT # 11.0 103/ul Critically high 1.4-6.5 [facility] Comment on above: Performed By: #### A MY, CMP, LIPA #### [facility] [address] [place] [address] Dr. Lawrence Wayne Neutrophils/100 WBC (Bld) 79.7 % Critically high 43.0-75.0 [facility] Comment on above: Performed By: #### A MY, CMP, LIPA #### [facility] [address] [place] [address] Dr. Lawrence Wayne Platelet mean volume (Bld) [Entitic vol] 9.1 fL Critically low 9.5-13.5 [facility] Comment on above: Performed By: #### A MY, CMP, LIPA #### [facility] [address] [place] [address] Dr. Lawrence Wayne PLT 434 103/ul Normal 150-450 [facility] Comment on above: Performed By: #### A MY, CMP, LIPA #### [facility] [address] [place] [address] Dr. Lawrence Wayne RBC 5.07 106/ul Normal 4.20-5.40 [facility] Comment on above: Performed By: #### A MY, CMP, LIPA #### [facility] [address] [address] [address] Lawrence Wayne WBC 13.8 103/ul Critically high 4.0-11.0 [facility] Comment on above: Performed By: #### A MY, CMP, LIPA #### [facility] [address] [place] [address] Dr. Lawrence Wayne PROF 14(COMP METB)on 022 Albumin [Mass/Vol] 3.9 g/dL Normal 3.5-5.0 [facility] Comment on above: Performed By: #### A MY, CMP, LIPA #### [facility] [address] [place] [address] Dr. Lawrence Wayne Albumin/Globulin [Mass ratio] 1.0 {ratio} Normal [facility] Comment on above: Performed By: #### A MY, CMP, LIPA #### [facility] [address] [place] [address] Dr. Lawrence Wayne ALP [Catalytic activity/Vol] 104 U/L Normal 38-126 [facility] Comment on above: Performed By: #### A MY, CMP, LIPA #### [facility] [address] [place] [address] Dr. Lawrence Wayne ALT [Catalytic activity/Vol] 20 U/L Normal 9-52 [facility] Comment on above: Performed By: #### A MY, CMP, LIPA #### [facility] [address] [address] [address] Lawrence Wayne Anion gap [Moles/Vol] 15.5 mmol/L Normal [facility] Comment on above: Performed By: #### A MY, CMP, LIPA #### [facility] [address] [place] [address] Dr. Lawrence Wayne AST [Catalytic activity/Vol] 13 U/L Critically low 14-36 [facility] Comment on above: Performed By: #### A MY, CMP, LIPA #### [facility] [address] [place] [address] Dr. Lawrence Wayne Bilirubin [Mass/Vol] 0.4 mg/dL Normal 0.2-1.3 [facility] Comment on above: Performed By: #### A MY, CMP, LIPA #### [facility] [address] [address] [address] Lawrence Wayne Calcium [Mass/Vol] 9.4 mg/dL Normal 8.4-10.2 [facility] Comment on above: Performed By: #### A MY, CMP, LIPA #### [facility] [address] [address] [address] Lawrence Wayne Chloride [Moles/Vol] 100 mmol/L Normal 98-107 [facility] Comment on above: Performed By: #### A MY, CMP, LIPA #### [facility] [address] [place] [address] Dr. Lawrence Wayne CO2 [Moles/Vol] 23.9 mmol/L Normal 22.0-30.0 [facility] Comment on above: Performed By: #### A MY, CMP, LIPA #### [facility] [address] [place] [address] Dr. Lawrence Wayne Creatinine [Mass/Vol] 0.97 mg/dL Normal 0.52-1.04 [facility] Comment on above: Performed By: #### A MY, CMP, LIPA #### [facility] [address] [place] [address] Dr. Lawrence Wayne EGFR-AF SRI LANKAN >60 Normal >=60 [facility] Comment on above: Performed By: #### A MY, CMP, LIPA #### [facility] [address] [place] [address] Dr. Lawrence Wayne EGFR-NON AF SRI LANKAN 58 mL/min/1.73m2 Critically low >=60 [facility] Comment on above: Performed By: #### A MY, CMP, LIPA #### [facility] [address] [place] [address] Dr. Lawrence Wayne Globulin (S) [Mass/Vol] 3.8 g/dL Normal [facility] Comment on above: Performed By: #### A MY, CMP, LIPA #### [facility] [address] [address] [address] Lawrence Wayne Glucose [Mass/Vol] 169 mg/dL Critically high 74-106 [facility] Comment on above: Performed By: #### A MY, CMP, LIPA #### [facility] [address] [address] [address] Lawrence Wayne Potassium [Moles/Vol] 3.4 mmol/L Normal 3.4-5.0 [facility] Comment on above: Performed By: #### A MY, CMP, LIPA #### [facility] [address] [address] [address] Lawrence Wayne Protein [Mass/Vol] 7.7 g/dL Normal 6.1-8.2 [facility] Comment on above: Performed By: #### A MY, CMP, LIPA #### [facility] [address] [address] [address] Lawrence Wyane Sodium [Moles/Vol] 136 mmol/L Critically low 137-145 [facility] Comment on above: Performed By: #### A MY, CMP, LIPA #### [facility] [address] [address] [address] Lawrence Wayne Urea nitrogen [Mass/Vol] 16.0 mg/dL Normal 7.0-17.0 [facility] Comment on above: Performed By: #### A MY, CMP, LIPA #### [facility] [address] [address] [address] Lawrence Wayne Urea nitrogen/Creatini ne [Mass ratio] 16.5 mg/mg Normal [facility] Comment on above: Performed By: #### A MY, CMP, LIPA #### [facility] [address] [address] [address] Lawrence Wayne AMIRA by IFAon 08-12-2021 Antinuclear Antibodies, IFA Positive Abnormal [facility] Comment on above: Result Comment: Nega tive <1:80 Borderline 1:80 Positive >1:80 Performed By: #### A NAIFA ####[facility] [id number] [address]Dr. Lawrence Wayne Centriole Pattern Normal [facility] Comment on above: Performed By: #### A NAIFA ####[facility] [id number] [id number]. Lawrence Wayne Centromere Pattern Normal [facility] Comment on above: Performed By: #### A NAIFA ####[facility] [address] [id number]. Lawrence Wayne Homogeneous Pattern Normal [facility] Comment on above: Performed By: #### A NAIFA ####[facility] [address] [address]Dr. Lawrence Wayne Midbody Pattern Normal [facility] Comment on above: Performed By: #### A NAIFA ####[facility] [address] [address]Dr. Lawrence Wayne Note: Comment Normal [facility] Comment on above: Result Comment: For [...] titers Nucleosomes, Histones Drug-induced SLE Speckled Sm, HEALTH PRACTICE MANAGER, SCL-70, SLE,MCTD,PSS (diffuse form), SS-A/SS-B Sjogrens Nucleolar SCL-70, PM-1/SCL High titers Scleroderma, PM/DM Centromere Centromere PSS (limited form) w/Crest syndrome variable Nuclear Dot Sp100,[id number] Primary Biliary Cirrhosis Nuclear GP210, Primary Biliary Cirrhosis Membrane hamilton A,B,C Performed By: #### A MICHELLE ####[facility] [address] [id number]. Lawrence Wayne Nuclear Dot Pattern Normal [facility] Comment on above: Performed By: #### A MICHELLE ####[facility] [address] [place], [place] [id number] Wayne Nuclear Membrane Pattern Normal [facility] Comment on above: Performed By: #### A MICHELLE ####[facility] [address] [id number] Wayne Nucleolar Pattern Normal [facility] Comment on above: Performed By: #### A NAIFA ####[facility] [address] [address]Dr. Lawrence Wayne PCNA Pattern Normal [facility] Comment on above: Performed By: #### A NAIFA ####[facility] [address] [address]Dr. Lawrence Wayne Speckled Pattern 1:160 Critically high [facility] Comment on above: Result Comment: ICAP nomenclature: AC-2,4,5,29 Performed By: #### A NAIFA ####[facility] [address] [address]Dr. Lawrence Wayne Spindle Apparatus Pattern Normal [facility] Comment on above: Performed By: #### A NAIFA ####[facility] [address] [address]Dr. Lawrence Wayne AMIRA DIRECTon 08-11-2021 AMIRA Direct Positive Abnormal Negative [facility] Comment on above: Performed By: #### A NAD ####[facility] [address] [place] [address]Dr. Lawrence Wayne SLE PROFILE Aon 08-11-2021 Anti-DNA (DS) Ab Qn 1 IU/mL Normal 0-9 [facility] Comment on above: Result Comment: Nega tive <5 Equivocal 5 - 9 Positive >9 Performed By: #### A MY, CMP, LIPA #### [facility] [address] [address] [address] Lawrence Wayne Antichromatin Antibodies <0.2 Normal 0.0-0.9 [facility] Comment on above: Performed By: #### A MY, CMP, LIPA #### [facility] [address] [address] [address] Lawrence Wayne RA Latex Turbid. <10.0 Normal <14.0 [facility] Comment on above: Performed By: #### A MY, CMP, LIPA #### [facility] [address] [address] [address] Lawrence Wayne HEALTH PRACTICE MANAGER Antibodies <0.2 Normal 0.0-0.9 [facility] Comment on above: Performed By: #### A MY, CMP, LIPA #### [facility] [address] [place] [address] Dr. Lawrence Wayne Sjogrvidal's Anti-SS-A 1.4 AI Critically high 0.0-0.9 [facility] Comment on above: Performed By: #### A MY, CMP, LIPA #### [facility] [address] [place] [address] Dr. Lawrence Garciaogrvidal's Anti-SS-B <0.2 Normal 0.0-0.9 [facility] Comment on above: Performed By: #### A MY, CMP, LIPA #### [facility] [address] [place] [address] Dr. Lawrence Wayne Ramos Antibodies <0.2 Normal 0.0-0.9 [facility] Comment on above: Performed By: #### A MY, CMP, LIPA #### [facility] [address] [place] [address] Dr. Lawrence Wayne ANTISTREPTOLYSIN O AB (ASO)o n 08-10-2021 Antistreptolysin O Ab 55.6 IU/mL Normal 0.0-200.0 [facility] Comment on above: Performed By: #### A MY, CMP, LIPA #### [facility] [address] [place] [address] Dr. Lawrence Wayne C3 and C4 COMPLEMENTon 08-10 Complement C3, Serum 124 mg/dL Normal 82-167 [facility] Comment on above: Performed By: #### A MY, CMP, LIPA #### [facility] [address] [place] [address] Dr. Lawrence Wayne Complement C4, Serum 12 mg/dL Normal 12-38 [facility] Comment on above: Performed By: #### A MY, CMP, LIPA #### [facility] [address] [place] [address] Dr. Lawrence Wayne CBC AUTO DIFFon 08-09-2021 BASO # 0.1 103/ul Normal 0.0-0.1 [facility] Comment on above: Performed By: #### A MY, CMP, LIPA #### [facility] [address] [place] [address] Dr. Lawrence Wayne Basophils/100 WBC (Bld) 0.6 % Normal 0.2-2.0 [facility] Comment on above: Performed By: #### A MY, CMP, LIPA #### [facility] [address] [place] [address] Dr. Lawrence Wayne EO # 0.0 103/ul Normal 0.0-0.7 [facility] Comment on above: Performed By: #### A MY, CMP, LIPA #### [facility] [address] [place] [address] Dr. Lawrence Wayne Eosinophils/100 WBC (Bld) 0.2 % Critically low 0.9-7.0 [facility] Comment on above: Performed By: #### A MY, CMP, LIPA #### [facility] [address] [place] [address] Dr. Lawrence Wayne Erythrocyte distribution width (RBC) [Ratio] 13.4 % Normal 11.0-15.0 [facility] Comment on above: Performed By: #### A MY, CMP, LIPA #### [facility] [address] [place] [address] Dr. Lawrence Wayne Hematocrit (Bld) [Volume fraction] 43.6 % Normal 36.0-48.0 [facility] Comment on above: Performed By: #### A MY, CMP, LIPA #### [facility] [address] [place] [address] Dr. Lawrence Wayne Hemoglobin (Bld) [Mass/Vol] 14.2 g/dL Normal 12.0-16.0 [facility] Comment on above: Performed By: #### A MY, CMP, LIPA #### [facility] [address] [place] [address] Dr. Lawrence Wayne IG # 0.03 10e3/ul Normal 0.00-0.03 [facility] Comment on above: Performed By: #### A MY, CMP, LIPA #### [facility] [address] [place] [address] Dr. Lawrence Wayne IG % 0.3 % Normal 0.0-0.5 [facility] Comment on above: Performed By: #### A MY, CMP, LIPA #### [facility] [address] [place] [address] Dr. Lawrence Wayne LYMPH # 1.1 103/ul Critically low 1.2-3.8 [facility] Comment on above: Performed By: #### A MY, CMP, LIPA #### [facility] [address] [place] [address] Dr. Lawrence Wayne Lymphocytes/100 WBC (Bld) 12.7 % Critically low 20.5-60.0 [facility] Comment on above: Performed By: #### A MY, CMP, LIPA #### [facility] [address] [place] [address] Dr. Lawrence Wayne MANUAL DIFF REQ NO Normal [facility] Comment on above: Performed By: #### A MY, CMP, LIPA #### [facility] [address] [place] [address] Dr. Lawrence Wayne MCH (RBC) [Entitic mass] 30.3 pg Normal 26.7-34.0 [facility] Comment on above: Performed By: #### A MY, CMP, LIPA #### [facility] [address] [place] [address] Dr. Lawrence Wayne MCHC (RBC) [Mass/Vol] 32.6 g/dL Normal 29.9-35.2 [facility] Comment on above: Performed By: #### A MY, CMP, LIPA #### [facility] [address] [place] [address] Dr. Lawrence Wayne MCV (RBC) [Entitic vol] 93.0 fL Normal 81.0-99.0 [facility] Comment on above: Performed By: #### A MY, CMP, LIPA #### [facility] [address] [place] [address] Dr. Lawrence Wayne MONO # 0.3 103/ul Normal 0.3-0.8 [facility] Comment on above: Performed By: #### A MY, CMP, LIPA #### [facility] [address] [place] [address] Dr. Lawrence Wayne Monocytes/100 WBC (Bld) 3.7 % Normal 1.7-12.0 [facility] Comment on above: Performed By: #### A MY, CMP, LIPA #### [facility] [address] [place] [address] Dr. Lawrence Wayne NEUT # 7.3 103/ul Critically high 1.4-6.5 [facility] Comment on above: Performed By: #### A MY, CMP, LIPA #### [facility] [address] [place] [address] Dr. Lawrence Wayne Neutrophils/100 WBC (Bld) 82.5 % Critically high 43.0-75.0 [facility] Comment on above: Performed By: #### A MY, CMP, LIPA #### [facility] [address] [place] [address] Dr. Lawrence Wayne Platelet mean volume (Bld) [Entitic vol] 9.6 fL Normal 9.5-13.5 [facility] Comment on above: Performed By: #### A MY, CMP, LIPA #### [facility] [address] [place] [address] Dr. Lawrence Wayne PLT 322 103/ul Normal 150-450 [facility] Comment on above: Performed By: #### A MY, CMP, LIPA #### [facility] [address] [place] [address] Dr. Lawrence Wayne RBC 4.69 106/ul Normal 4.20-5.40 [facility] Comment on above: Performed By: #### A MY, CMP, LIPA #### [facility] [address] [place] [address] Dr. Lawrence Wayne WBC 8.8 103/ul Normal 4.0-11.0 [facility] Comment on above: Performed By: #### A MY, CMP, LIPA #### [facility] [address] [place] [address] Dr. Lawrence Wayne CRPon 08-09-2021 CRP [Mass/Vol] mg/L Normal <=1.0 [facility] Comment on above: Performed By: #### A MY CMP, LIPA #### [facility] [address] [address] [address] Lawrence Wayne IRONon 08-09-2021 Iron [Mass/Vol] 83.0 ug/dL Normal 37.0-170.0 [facility] Comment on above: Performed By: #### A GARTH CMP, LIPA #### [facility] [address] [address] [address] Lawrence Wayne SED RATE WESTERGRENon 2021 SED RATE 16 mm/hr Normal <=30 [facility] Comment on above: Performed By: #### S EDR ####[facility] [address] [address]Dr. Lawrence Wayne URIC ACID SERUMon 08-09-2021 Urate [Mass/Vol] 3.4 mg/dL Normal 2.5-6.2 [facility] Comment on above: Performed By: #### A KARY LIANG, LIPA #### [facility] [address] [address] [address] Lawrence Wayne XR CSPINE MIN 4 [...] by: TYRELL MOREJON Date: 2021-08-09 14:37 Normal [facility] H PYLORI ANTIBODY IGGon 06-16 H. PYLORI IGG ABS 0.13 Index Value Normal 0.00-0.79 [facility] Comment on above: Result Comment: Nega tive <0.80 Equivocal 0.80 - 0.89 Positive >0.89 Performed By: #### A MY, CMP, LIPA #### [facility] [address] [place] [address] Dr. Lawrence Wayne AMYLASEon 07-11-2021 Amylase [Catalytic activity/Vol] 100 U/L Normal 31-110 [facility] Comment on above: Performed By: #### A MY, CMP, LIPA #### [facility] [address] [place] [address] Dr. Lawrence Wayne CBC AUTO DIFFon 07-11-2021 BASO # 0.1 103/ul Normal 0.0-0.1 [facility] Comment on above: Performed By: #### A MY, CMP, LIPA #### [facility] [address] [place] [address] Dr. Lawrence Wayne Basophils/100 WBC (Bld) 0.7 % Normal 0.2-2.0 [facility] Comment on above: Performed By: #### A MY, CMP, LIPA #### [facility] [address] [place] [address] Dr. Lawrence Wayne EO # 0.1 103/ul Normal 0.0-0.7 [facility] Comment on above: Performed By: #### A MY, CMP, LIPA #### [facility] [address] [place] [address] Dr. Lawrence Wayne Eosinophils/100 WBC (Bld) 1.2 % Normal 0.9-7.0 [facility] Comment on above: Performed By: #### A MY, CMP, LIPA #### [facility] [address] [place] [address] Dr. Lawrence Wayen Erythrocyte distribution width (RBC) [Ratio] 13.9 % Normal 11.0-15.0 [facility] Comment on above: Performed By: #### A MY, CMP, LIPA #### [facility] [address] [place] [address] Dr. Lawrence Wayne Hematocrit (Bld) [Volume fraction] 45.9 % Normal 36.0-48.0 [facility] Comment on above: Performed By: #### A MY, CMP, LIPA #### [facility] [address] [place] [address] Dr. Lawrence Wayne Hemoglobin (Bld) [Mass/Vol] 14.9 g/dL Normal 12.0-16.0 [facility] Comment on above: Performed By: #### A MY, CMP, LIPA #### [facility] [address] [place] [address] Dr. Lawrence Wayne IG # 0.03 10e3/ul Normal 0.00-0.03 [facility] Comment on above: Performed By: #### A MY, CMP, LIPA #### [facility] [address] [place] [address] Dr. Lawrence Wayne IG % 0.4 % Normal 0.0-0.5 [facility] Comment on above: Performed By: #### A MY, CMP, LIPA #### [facility] [address] [place] [address] Dr. Lawrence Wayne LYMPH # 2.2 103/ul Normal 1.2-3.8 [facility] Comment on above: Performed By: #### A MY, CMP, LIPA #### [facility] [address] [place] [address] Dr. Lawrence Wayne Lymphocytes/100 WBC (Bld) 29.0 % Normal 20.5-60.0 [facility] Comment on above: Performed By: #### A MY, CMP, LIPA #### [facility] [address] [place] [address] Dr. Lawrence Wayne MANUAL DIFF REQ NO Normal [facility] Comment on above: Performed By: #### A MY, CMP, LIPA #### [facility] [address] [place] [address] Dr. Lawrence Wayne MCH (RBC) [Entitic mass] 29.8 pg Normal 26.7-34.0 [facility] Comment on above: Performed By: #### A MY, CMP, LIPA #### [facility] [address] [place] [address] Dr. Lawrence Wayne MCHC (RBC) [Mass/Vol] 32.5 g/dL Normal 29.9-35.2 [facility] Comment on above: Performed By: #### A MY, CMP, LIPA #### [facility] [address] [place] [address] Dr. Lawrence Wayne MCV (RBC) [Entitic vol] 91.8 fL Normal 81.0-99.0 [facility] Comment on above: Performed By: #### A MY, CMP, LIPA #### [facility] [address] [place] [address] Dr. Lawrence Wayne MONO # 0.9 103/ul Critically high 0.3-0.8 [facility] Comment on above: Performed By: #### A MY, CMP, LIPA #### [facility] [address] [place] [address] Dr. Lawrence Wayne Monocytes/100 WBC (Bld) 11.7 % Normal 1.7-12.0 [facility] Comment on above: Performed By: #### A MY, CMP, LIPA #### [facility] [address] [place] [address] Dr. Lawrence Wayne NEUT # 4.3 103/ul Normal 1.4-6.5 [facility] Comment on above: Performed By: #### A MY, CMP, LIPA #### [facility] [address] [place] [address] Dr. Lawrence Wayne Neutrophils/100 WBC (Bld) 57.0 % Normal 43.0-75.0 [facility] Comment on above: Performed By: #### A MY, CMP, LIPA #### [facility] [address] [place] [address] Dr. Lawrence Wayne Platelet mean volume (Bld) [Entitic vol] 8.7 fL Critically low 9.5-13.5 [facility] Comment on above: Performed By: #### A MY, CMP, LIPA #### [facility] [address] [place] [address] Dr. Lawrence Wayne PLT 351 103/ul Normal 150-450 [facility] Comment on above: Performed By: #### A MY, CMP, LIPA #### [facility] [address] [address] [address] Lawrence Wayne RBC 5.00 106/ul Normal 4.20-5.40 [facility] Comment on above: Performed By: #### A MY, CMP, LIPA #### [facility] [address] [address] [address] Lawrence Wayne WBC 7.6 103/ul Normal 4.0-11.0 [facility] Comment on above: Performed By: #### A MY, CMP, LIPA #### [facility] [address] [place] [address] Dr. Lawrence Wayne LIPASEon 07-11-2021 Lipase [Catalytic activity/Vol] 93.0 U/L Normal 23.0-300.0 [facility] Comment on above: Performed By: #### A MY, CMP, LIPA #### [facility] [address] [place] [address] Dr. Lawrence Wayne PROF 14(COMP METB)on 022 Albumin [Mass/Vol] 4.1 g/dL Normal 3.5-5.0 [facility] Comment on above: Performed By: #### A MY, CMP, LIPA #### [facility] [address] [place] [address] Dr. Lawrence Wayne Albumin/Globulin [Mass ratio] 1.1 {ratio} Normal [facility] Comment on above: Performed By: #### A MY, CMP, LIPA #### [facility] [address] [place] [address] Dr. Lawrence Wayne ALP [Catalytic activity/Vol] 101 U/L Normal 38-126 [facility] Comment on above: Performed By: #### A MY, CMP, LIPA #### [facility] [address] [place] [address] Dr. Lawrence Wayne ALT [Catalytic activity/Vol] 38 U/L Normal 9-52 [facility] Comment on above: Performed By: #### A MY, CMP, LIPA #### [facility] [address] [address] [address] Lawrence Wayne Anion gap [Moles/Vol] 12.5 mmol/L Normal [facility] Comment on above: Performed By: #### A MY, CMP, LIPA #### [facility] [address] [address] [address] Lawrence Wayne AST [Catalytic activity/Vol] 25 U/L Normal 14-36 [facility] Comment on above: Performed By: #### A MY, CMP, LIPA #### [facility] [address] [place] [address] Dr. Lawrence Wayne Bilirubin [Mass/Vol] 0.8 mg/dL Normal 0.2-1.3 [facility] Comment on above: Performed By: #### A MY, CMP, LIPA #### [facility] [address] [place] [address] Dr. Lawrence Wayne Calcium [Mass/Vol] 9.9 mg/dL Normal 8.4-10.2 [facility] Comment on above: Performed By: #### A MY, CMP, LIPA #### [facility] [address] [address] [address] Lawrence Wayne Chloride [Moles/Vol] 98 mmol/L Normal 98-107 [facility] Comment on above: Performed By: #### A MY, CMP, LIPA #### [facility] [address] [address] [address] Lawrence Wayne CO2 [Moles/Vol] 26.6 mmol/L Normal 22.0-30.0 [facility] Comment on above: Performed By: #### A MY, CMP, LIPA #### [facility] [address] [place] [address] Dr. Lawrence Wayne Creatinine [Mass/Vol] 1.12 mg/dL Critically high 0.52-1.04 [facility] Comment on above: Performed By: #### A MY, CMP, LIPA #### [facility] [address] [address] [address] Lawrence Wayne EGFR-AF SRI LANKAN 59 mL/min/1.73m2 Critically low >=60 [facility] Comment on above: Performed By: #### A MY, CMP, LIPA #### [facility] [address] [address] [address] Lawrence Wayne EGFR-NON AF SRI LANKAN 49 mL/min/1.73m2 Critically low >=60 [facility] Comment on above: Performed By: #### A MY, CMP, LIPA #### [facility] [address] [address] [address] Lawrence Wayne Globulin (S) [Mass/Vol] 3.7 g/dL Normal [facility] Comment on above: Performed By: #### A MY, CMP, LIPA #### [facility] [address] [place] [address] Dr. Lawrence Wayne Glucose [Mass/Vol] 117 mg/dL Critically high 74-106 [facility] Comment on above: Performed By: #### A MY, CMP, LIPA #### [facility] [address] [place] [address] Dr. Lawrence Wayne Potassium [Moles/Vol] 4.1 mmol/L Normal 3.4-5.0 [facility] Comment on above: Performed By: #### A MY, CMP, LIPA #### [facility] [address] [place] [address] Dr. Lawrence Wayne Protein [Mass/Vol] 7.8 g/dL Normal 6.1-8.2 [facility] Comment on above: Performed By: #### A MY, CMP, LIPA #### [facility] [address] [place] [address] Dr. Lawrence Wayne Sodium [Moles/Vol] 133 mmol/L Critically low 137-145 [facility] Comment on above: Performed By: #### A MY, CMP, LIPA #### [facility] [address] [place] [address] Dr. Lawrence Wayne Urea nitrogen [Mass/Vol] 9.0 mg/dL Normal 7.0-17.0 [facility] Comment on above: Performed By: #### A MY, CMP, LIPA #### [facility] [address] [place] [address] Dr. Lawrence Wayne Urea nitrogen/Creatini ne [Mass ratio] 8.0 mg/mg Normal [facility] Comment on above: Performed By: #### A MY, CMP, LIPA #### [facility] [address] [id number] Dr[address] Lawrence Wayne Coding Summary.on 04-21-2018 Coding Summary. CODING DATE: 018 FINAL [facility] STATUS: Home (Routine DC) PAYOR: Medicare APC [...] PROC APC STAT DESCRIPTION DOCTOR NAME DATE 10452 9001 J1 Biopsy of liver, needle; Luli Roy MD 04/12/2018 percutaneous 97720 Ultrasonic guidance for Luli Roy MD 04/12/2018 [...] Edmond Date Saved: 04/21/2018 04:57 pm Normal [facility] Coding Summary.on 04-16-2018 Coding Summary. CODING DATE: 018 FINAL [facility] STATUS: Home (Routine DC) PAYOR: Medicare APC [...] Godinez Date Saved: 04/16/2018 11:59 am Normal [facility] CT Abdomen w/ + w/o [...] NoOral contrast amount in ml's: 450 Normal [facility] Creatinineon 04-15-2018 Creatinine mass conc 1.0 mg/dL Normal 0.5-1.3 [facility] Comment on above: Performed By: #### 2 219850, 6960339, 7051576, 6536613, 6937719, 6521033, 57312224 ####[facility] [address] [place] [address] eGFRon 04-15-2018 GFR/1.73 sq M predicted among blacks MDRD vol rate/area (S/P/Bld) mL/min/{1.73_m2} Normal >=59 [facility] Comment on above: Order Comment: Order added by Discern Expert. Result Comment: eGFR is race adjusted. AA=. Performed By: #### 2 971663, 9930088, 6757118, 9132859, 7406936, 5860362, 05424443 ####[facility] [address] [place] [address] GFR/1.73 sq M predicted among non-blacks MDRD vol rate/area (S/P/Bld) 56 mL/min/1.73 m2 Low >=59 [facility] Comment on above: Order Comment: Order added by Discern Expert. Result Comment: Brick Tender seng kidney disease could be indicated at eGFR's of less than 60 mL/min/1.73m2. Kidney failure is indicated at less than 15 mL/min/1.73m2. Performed By: #### 2 422948, 6395069, 6602432, 2829977, 8619780, 0679880, 05113468 ####[facility] [address] [place] [address] Lab Miscellaneouson 04-14-20 Status See Ref Lab Report Normal [facility] Comment on above: Performed By: #### 2 651095, 0422355, 0788377, 7361824, 4894952, 8202346, 50181691 ####[facility] [address] [place] [address] Status See Ref Lab Report Normal [facility] Comment on above: Performed By: #### 2 222760, 2639448, 0443222, 2502748, 2567039, 3791228, 00646225 ####[facility] [address] [place] [address] Status See Ref Lab Report Normal [facility] Comment on above: Performed By: #### 2 210478, 6439682, 3071338, 0315480, 6192071, 7353932, 73810699 ####[facility] [address] [place] [address] Inpatient Patient Summaryon 04-12-2018 Inpatient [facility] Dis[facility] InstructionsPERSON INFORMATION Name: [facility] Admitting Physician: Kirill PARISI, Fermínending Physician: Luli Roy MD PCP: Gagan Ramey MD Diagnosis: Abnormal LFTs Comment: PATIENT EDUCATION INFORMATIONInstructions:Medication Leaflets:Follow up:With: Address: When: [facility], [address] [place] [address] [place] [address] Business (1) Within 1 to 2 weeks Type Location Start [facility] Surgery [facility] Surgical Services 04/12/2018 8:00 AM 04/12/2018 8:30 AM Confirmed MEDICATION LISTComment: Normal [facility] Patient Education - Texton 1 Patient Education - Text Normal [facility] ANCAon 04-10-2018 Neutrophil cytoplasmic Ab.classic IF titer (S) <1:20 Invalid Interpretation Code Neg:<1:20 [facility] Comment on above: Performed By: #### 2 072041, 7478487, 4597865, 2835466, 2050969, 7891752, 87482160 ####[facility] [address] [place] [address] Neutrophil cytoplasmic Ab.perinuclear IF titer (S) <1:20 Invalid Interpretation Code Neg:<1:20 [facility] Comment on above: Result Comment: The presence of positive fluorescence exhibiting P-ANCA or C-ANCApatterns alone is not specific for the diagnosis of Latonia'sGranulomatosis (WG) or microscopic polyangiitis. Decisions abouttreatment should not be based solely on ANCA IFA results. TheInternational ANCA Group Consensus recommends follow up testing ofpositive sera with both IN-3 and MPO-ANCA enzyme immunoassays. Asmany as 5% serum samples are positive only by EIA.Ref. AM J Clin Pathol 1999;111:507-513. Performed By: #### 2 026724, 2733569, 8783661, 0118731, 7860438, 1359246, 00413876 ####[facility] [address] [place] [address] Neutrophil cytoplasmic Ab.perinuclear.at ypical IF titer (S) <1:20 Invalid Interpretation Code Neg:<1:20 [facility] Comment on above: Result Comment: The atypical pANCA pattern has been observed in a significantpercentage of patients with ulcerative colitis, primary sclerosingcholangitis and autoimmune hepatitis.Performed at: [address] [id number] PhD Rohith Dawson Performed By: #### 2 651705, 6211423, 5121388, 5019171, 7212546, 1774020, 37524263 ####[facility] [address] [place] [address] Vit Aon 04-10-2018 Retinol mass conc 50.2 microgram/dL Invalid Interpretation Code 36.4-108.0 [facility] Comment on above: Result Comment: Refe rence intervals for vitamin A determined from National Health andNutrition Examination Survey, 9401-2576. Individuals with vitamin Aless than 20 ug/dL are considered vitamin A deficient and those withserum concentrations less than 10 ug/dL are considered severelydeficient.This test was developed and its performance characteristicsdetermined by [employer]. It has not been cleared or approvedby the Food and Drug Administration.Performed at: [address] [id number] MD Lillie García Performed By: #### 2 378813, 7723560, 2025867, 6740864, 7455579, 0501715, 40680294 ####[facility] [address] [place] [address] Vit William 04-10-2018 Alpha tocopherol mass conc 14.3 mg/L Invalid Interpretation Code 9.0-29.0 [facility] Comment on above: Performed By: #### 2 799868, 8077680, 2050768, 3106136, 8037191, 9060631, 67634985 ####[facility] [address] [place] [address] Gamma tocopherol mass conc 5.1 mg/L High 0.5-4.9 [facility] Comment on above: Result Comment: Refe rence intervals for alpha and gamma- tocopherol determined [facility] Health and Nutrition Examination Survey, 3044-7162.Individuals with alpha-tocopherol levels less than 5.0 mg/L areconsidered vitamin E deficient.This test was developed and its performance characteristicsdetermined by [employer]. It has not been cleared or approvedby the Food and Drug Administration.Performed at: [address] [id number] MD Lillie García Performed By: #### 2 460084, 7130229, 5957952, 9360244, 2815013, 3195781, 20637364 ####[facility] [address] [place] [address] Coding Summary.on 04-08-2018 Coding Summary. CODING DATE: 018 FINAL [facility] STATUS: Home (Routine DC) PAYOR: Medicare ADMIT [...] Bernardo Date Saved: 04/08/2018 02:54 pm Normal [facility] Lab Miscellaneouson 04-07-20 Test Name LC 1 Invalid Interpretation Code [facility] Comment on above: Performed By: #### 2 948109, 5330075, 1710241, 9519559, 3335827, 8677067, 45834156 ####[facility] [address] [place] [address] Test Name ALKM 1 Invalid Interpretation Code [facility] Comment on above: Performed By: #### 2 172162, 0774799, 3857646, 9451397, 5842044, 9349639, 53992807 ####[facility] [address] [place] [address] Test Name CHARLIE LIVER AG Invalid Interpretation Code [facility] Comment on above: Performed By: #### 2 903252, 6946283, 3543636, 2266386, 0931991, 7720991, 17438803 ####[facility] [address] [place] [address] Vitamin D 25 Hydroxyon 04-07 Calcidiol mass conc 28.3 ng/mL Low 30.0-100.0 [facility] Comment on above: Result Comment: Vit jurado D deficiency has been defined as a level of serum 25-OH vitamin D less than 20 ng/mL (1,2) by the [place] of Medicine and an Endocrine Society practice guideline. The Endocrine Society further defined vitamin D insufficiency as a level between 21 and 29 ng/mL (2). 1. IOM ([place] of Medicine). 2010. Dietary reference intakes for calcium and D. [place]: The National Academies Press. 2. Ernesto MF, Pierre [place], Gladys HOUSTON, et al. Evaluation, treatment, and prevention of vitamin D deficiency: an Endocrine Society clinical practice guideline. JCEM. 2010; 96 (7):1911-30. Performed By: #### 2 502345, 6474375, 5766469, 8035229, 3701124, 6008193, 65602311 ####[facility] [address] [place] [place] [address] Main OR Intraoperative Recor don 11-10-2017 Main OR Intraoperative Record IntraOp Document Type FT Summary Primary Physician: Luli Roy MD Finalized Date/Time: 11/10/17 08:17:39 Pt. Name: SKIP HONG/Sex: 1955 Female Med Rec #: [id number] Physician: Luli Roy MD Financial #: [id number] Pt. Type: O Room/Bed: / Admit/Disch: 11/05/17 [...] COLONOSCOPY(.) COLONOSCOPY(.) COLONOSCOPY(.) Comments Last Modified By: Nan PARRISH, Angelita Montana RN, Angelita Phillips RN 11/05/17 10:45:56 11/05/17 10:45:56 11/05/17 10:45:56 Entry 4 Case Attendee Angelita Montana RN Role Performed Lathing Supervisor - Primary Time In 11/05/17 10:30:00 [...] Froy Gore Jr., DO, Luli Roy MD, Nan PARRISH, Joni Goldstein CST, Molly Time Out Complete [...] RN Patient Status Stable Skin. Condition Intact, [place], Warm, and Dry Airway Maintenance Oxygen in Use? No Outcomes Met? Yes Last Modified By: Angelita Montana RN 11/05/17 07:06:56 Post-Care Text: The patient is free from signs and symptoms of injury related to transfer/transport General Comments: Report given to food service assistant. RHRn Medication Administration FT Pre-Care Text: Verifies allergies, administers prescribed medications and solutions, administers prescribed antibiotic therapy and immunizing agents as ordered, evaluates response to medications Administers prescribed medications and solutions Entry 1 Expiration Date Yes Outcomes Met? Yes Verified Last Modified By: Angelita Montana RN 11/05/17 07:07:58 Post-Care Text: The patient received appropriate medication(s) safely administered during the perioperative period For [facility] CompanyRonni please see scanned medication reconcilliation form for [...] Palma RN, Lou Ann 11/10/17 08:17 Normal [facility] Coding Summary.on 11-06-2017 Coding Summary. CODING DATE: 018 [facility] STATUS: Home (Routine [place]) PAYOR: Medicare APC DESCRIPTION 5312 Level 2 [...] PROC APC STAT DESCRIPTION DOCTOR NAME DATE 77130 5312 T Colonoscopy, flexible; Luli Roy MD 11/05/2017 with biopsy, single or multiple 21813 Anesthesia for lower Luli Roy MD 11/05/2017 intestinal endoscopic procedures, endoscope introduced distal to duodenum; not otherwise specified NOTE: The code number assigned matches the documented diagnosis and / or procedure in the patient's chart. However, the narrative phrase printed from the coding software may appear abbreviated, or result in slightly different terminology. Coded By: Heather Godinez Date Saved: 11/06/2017 04:20 pm Normal [facility] History and Physicalon 11-05 History and Physical Date: 10/22/2017 3:00 PMPatient Name: Skip Seals #: [id number]: FemaleDOB (age): 1955 (62)Provider: Maylin Duarte Physician: Anitha Ramey MD[address] [phone] (phone) (fax)Chief Complaint: Follow up to EGDHistory [...] current status unknownPrinted on 10/30/2017 Skip Hong, [address]69, 1955 Page 1 of 4Printed on 10/30/2017 Skip Hong, 92218, 1955Drugs: NoneExercise: walking daily.Caffeine: tea and coffee.Marital [...] Signs:BP(mmHg)Pulse(ppm)Rhythm Weight (lbs/oz) Height (ft/in) BMI Resp/min Chho345/70 91 Regular 132 / 5 / 3 [...] and remote events.Printed on 10/30/2017 Skip Hong, 29972, 1955 Page 2 of 4Printed on 10/30/2017 Skip Hong, 79776, 1955Mood and affect: no evidence of depression, anxiety or agitation.Impressions: Chronic pancreatitis, mild chronic pancreatitis on EUS, positive AMIRA, negative IgG4, she has ahistory of lupus, patient continues despite above, we will give her a trial of prednisone and wewill monitor for improvementCBD Stones , status post ERCP and biliary sphincterotomyChange in bowel habits, proceed with colonoscopyPlan: Colonoscopy will be performed at [facility] .Prednisone 10 mg Take 4 tablets daily for 2 wks.Take 3 daily for 2 wks.Take 2daily for 2wks.Take 1 daily for 2 wks. then 0.5 daily for 1 wk then stopRisk & Medical Necessity: Diagnosis and management options are Minimal. The amount of data reviewed and/orordered is Minimal/None. The level of risk is Minimal.Luli Roy MD Skip Hong, 25032, 1955 Page 3 of 4Printed on 10/30/2017 Skip Hong, 31238, 1955Printed on 10/30/2017 Skip Hong, 97771, 1955 Page 4 of 4Printed on 10/30/2017 Skip Hong, 03019, 1955no change [facility] Comment on above: Result Comment: Elec tronically Signed By: Luli Roy MD\.br\Date and Time Signed: 11/05/17 10:27 EDT Inpatient Patient Summaryon 11-05-2017 Inpatient Patient Summary [facility] Dis[facility] InstructionsPERSON INFORMATION Name: [facility] Admitting Physician: Kirill PARISI, Renettattending Physician: Luli Roy MD PCP: Meche PARISI, Gagan Diagnosis: Internal hemorrhoids Comment: PATIENT EDUCATION INFORMATIONInstructions:Medication Leaflets:Follow up:With: Address: When: [facility], [address] [phone] [facility] () Within 1 to 2 weeks MEDICATION LISTComment: [facility] Main OR PACU I Recordon 10-14 Main OR PACU I Record PACU Phase I Document Type FT Summary Primary Physician: Luli Roy MD Finalized Date/Time: 11/05/17 12:12:56 Pt. Name: SKIP HONG Jarod Aviles/Sex: 1955 Female Med Rec #: [id number] Physician: Luli Roy MD Financial #: [id number] Pt. Type: O Room/Bed: / Admit/Disch: 11/05/17 [...] 12:10 Shayla Mckenzie RN 11/05/17 12:12 Normal [facility] Patient Education - Texton 0 11-05-2017 Patient Education - Text [facility] Progress Note-Physicianon Protein mass conc Patient: [...] involuntary movements and spasms / SNOMED CT 051599657 / ConfirmedesophagealDiverticulosis / SNOMED CT 5027543093 / ConfirmedFrozen shoulder / SNOMED CT 1593986046 / ConfirmedRIGHTIBS (irritable bowel syndrome) / SNOMED CT 29275247 / ConfirmedThoracic outlet syndrome / SNOMED CT 639028045 / ConfirmedbilateralH/O pleurisy / SNOMED CT 711159132 / ConfirmedC. difficile diarrhea / SNOMED CT 1089615081 / [facility] 2 to 3 years agoRSD (reflex sympathetic dystrophy) / SNOMED CT 7289278540 / ConfirmedPancreatitis, acute / SNOMED CT 494343373 / ConfirmedAcid reflux / SNOMED CT 056697861 / ConfirmedFibromyalgia / SNOMED CT 61849766 / ConfirmedPancreatic cyst / SNOMED CT 37026445 / ConfirmedMigraines / SNOMED CT 67995959 / ConfirmedArthritis / SNOMED CT 4680249 / Confirmedneck and lower backChronic colitis / SNOMED CT 43073528 / ConfirmedLupus / SNOMED CT 01336390 / ConfirmedResolved: Pancreatitis / SNOMED CT 034386200Ymawoszs: Thoracic outlet syndrome / SNOMED CT 64T28242-36F0-6157-3077-8EU2216RV4 20Resolved: IBS (irritable bowel syndrome) / SNOMED CT 6CVCF138-1NV0-305V-5KGK-36332102BL 4CResolved: SLE (systemic lupus erythematosus) / SNOMED CT 67U847N3-9771-09H7-9U28-KC75RCW026 CFResolved: Endometriosis / SNOMED CT 18R6WQB2-0IMK-877X-11TF-5V85I5H8W1 U1Ciuorsck: Hyperlipidemia / SNOMED CT 33366843Usaoymjp: Fibromyalgia / SNOMED CT R9I697O3-D98W-1981-33Y4-8149551P85 Y3Wnpqvorv: RSD upper limb / SNOMED CT L9P6X3V5-2GV5-96HF-5XK1-045639TFS5 C1 Physical Examination Vital Signs 11/05/2017 11:15 [...] noted. Plan Transfer/ Discharge: Condition stable. Normal [facility] Comment on above: Result Comment: [...] involuntary movements and spasms / SNOMED CT 668286435 / ConfirmedesophagealDiverticulosis / SNOMED CT 6207215399 / ConfirmedFrozen shoulder / SNOMED CT 9154888170 / ConfirmedRIGHTIBS (irritable bowel syndrome) / SNOMED CT 92454666 / ConfirmedThoracic outlet syndrome / SNOMED CT 352748854 / ConfirmedbilateralH/O pleurisy / SNOMED CT 516724501 / ConfirmedC. difficile diarrhea / SNOMED CT 7769318408 / [facility] 2 to 3 years agoRSD (reflex sympathetic dystrophy) / SNOMED CT 6944139277 / ConfirmedPancreatitis, acute / SNOMED CT 460708438 / ConfirmedAcid reflux / SNOMED CT 539708892 / ConfirmedFibromyalgia / SNOMED CT 98427321 / ConfirmedPancreatic cyst / SNOMED CT 85168617 / ConfirmedMigraines / SNOMED CT 78263665 / ConfirmedArthritis / SNOMED CT 5976151 / Confirmedneck and lower backChronic colitis / SNOMED CT 28744417 / ConfirmedLupus / SNOMED CT 82630793 / ConfirmedResolved: Pancreatitis / SNOMED CT 243378523Unjdqlcd: Thoracic outlet syndrome / SNOMED CT 68M53447-22H0-4685-3070-2MM6991XX3 20Resolved: IBS (irritable bowel syndrome) / SNOMED CT 2TBTF985-3WI5-573Y-1WTS-53218683PL 4CResolved: SLE (systemic lupus erythematosus) / SNOMED CT 10D934I4-9557-00Q0-1T66-KN25OYT015 CFResolved: Endometriosis / SNOMED CT 53N6JBR7-3AWP-286Q-89OC-2H36G2C8F6 K7Ntrozqai: Hyperlipidemia / SNOMED CT 56558046Xyoiympk: Fibromyalgia / SNOMED CT O9G761X7-Y35H-2263-79K8-5085290A22 D2Dwrisqty: RSD upper limb / SNOMED CT I6P6S7Z7-3DJ4-94YX-9HB2-934587IFW2 C1 Physical Examination Vital Signs 11/05/2017 11:15 [...] noted. Plan Transfer/ Discharge: Condition stable. Normal [facility] Comment on above: Result Comment: [...] 0, Pain Histories Past Medical History: ResolvedFibromyalgia (T9F128D8-U12I-5856-44Y7-7805365Y8 0C0): Resolved.IBS (irritable bowel syndrome) (9HKJY881-0XO9-630X-9ELT-68182251U A4C): Resolved.Pancreatitis (253964157): Resolved.Endometriosis (04U1GAU0-0IES-585Z-79SP-2Y56J9Y3E 3C4): Resolved.Thoracic outlet syndrome (76C49481-41Q9-5331-8218-5RL2766YD 020): Resolved.SLE (systemic lupus erythematosus) (80Z621T5-7113-95P9-2J97-DK71UTB07 8CF): Resolved.RSD upper limb (T2G1J2A9-3HV9-01HM-8SY8-047213JBO 9C1): Resolved.Hyperlipidemia (10976827): Resolved. Family History: No family history items have been selected or recorded. Procedure history: History of tonsillectomy (0030629767). section (70160334).Laparoscopic right ovarian cystectomy (0450512317).Thoracic outlet syndrome (12B34450-02H8-1424-3672-5MM6274TJ 020).Comments:01/30/2016 12:01 - Ibrahima PARRISH, [facility] HospitalaterallyHistory of hysterectomy.. (7811227798).Laparoscope (478349018).Gallbladder (168892163).Endoscopy (6402854853).Colonoscopy (774333168).mri/ct abd.right shoulder scope.Cholecystectomy (19920346). Social History Social & Psychosocial HabitsAlcohol Comment: denies current use - 10/05/2017 09:18 - Nikita PARRISH, Samantha A010/06/2017 Risk Assessment: Denies Alcohol UseSubstance Abuse01/30/2016 Risk Assessment: Denies Substance Abuse Comment: denies current use - 10/05/2017 09:18 - Samantha Shelton RN RYlfgmqa75/17/2016 Risk Assessment: Denies Tobacco Use Comment: denies current use - 10/05/2017 09:18 - Samantha Shelton RN Physical Examination Measurements from flowsheet : Measurements 11/05/2017 09:29 EDT Height/Length Measured 160.02 cm Body Mass Index Measured 23.39 kg/m2 Weight Measured 59.9 kg Respiratory: Lungs are clear to auscultation. Cardiovascular: Regular rhythm. Plan [place] [employer] Anesthesiologists (ASA) physical status classification: Class II. Anesthetic Preoperative Plan Anesthesia: General. . Anesthetic plan, risks, benefits, and alternatives discussed with the patient and/or family. Patient verbalized understanding. [facility] Comment on above: Result Comment: Elec tronically Signed By: Bao Orozco DO, Froy Ward\.br\Date and Time Signed: 11/05/17 10:27 EDT Main OR Intraoperative Recor don 10-08-2017 Main OR Intraoperative Record IntraOp Document Type FT Summary Primary Physician: Luli Roy MD Finalized Date/Time: 10/08/17 13:15:06 Pt. Name: SKIP HONG/Sex: 1955 Female Med Rec #: [id number] Physician: Luli Roy MD Financial #: [id number] Pt. Type: O Room/Bed: / Admit/Disch: 10/07/17 [...] 1 Entry 2 Entry 3 Case Attendee Kaden Benítez Jr, DO, MD, Luli Ramirez RN, Jeana Howell Role Performed Anesthesiologist of Surgeon - Primary Lathing Supervisor - Primary Record Time In 10/07/17 09:29:00 10/07/17 09:29:00 10/07/17 09:29:00 Time Out 10/07/17 09:38:00 10/07/17 09:38:00 10/07/17 09:38:00 Procedure EGD(.) EGD(.) EGD(.) Comments Last Modified By: James RN, Jeana Ramirez RN, Jeana Ramirez RN, Jeana Howell 10/07/17 09:38:11 10/07/17 09:38:11 10/07/17 09:38:11 Entry 4 Entry 5 Case Attendee Lexie Shea PACKAGER HAND, Liz Olivera Role Performed Scrub - Other [...] (If Applicable) PreOp Antibiotic No Time Out Kaden Benítez Jr, DO, Given Participants Kirill PARISI, James Rockwell RN, Jeana Howell, Sandi PACKAGER HAND, Liz Olivera Time Out Complete 10/07/17 09:30:00 [...] Procedure Yes Primary Surgeon Luli Roy MD 10/07/17 09:32:00 Stop 10/07/17 09:34:00 Anesthesia Type [...] and tissue Entry 1 Skin Integrity Intact, [place], Warm, and Skin Abnormality No Dry Outcomes [...] RN Patient Status Stable Skin. Condition Intact, [place], Warm, and Dry Airway Maintenance Oxygen in Use? No Airway Device N/A Outcomes Met? 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 difficile diarrhea / SNOMED CT 1853841364 / [facility] 2 to 3 years agoRSD (reflex sympathetic dystrophy) / SNOMED CT 0384106947 / ConfirmedPancreatic cyst / SNOMED CT 18334946 / ConfirmedDiverticulosis / SNOMED CT 5228290978 / ConfirmedFibromyalgia / SNOMED CT 77016088 / ConfirmedAcid reflux / SNOMED CT 458245133 / ConfirmedH/O pleurisy / SNOMED CT 562505824 / ConfirmedIBS (irritable bowel syndrome) / SNOMED CT 32608109 / ConfirmedMigraines / SNOMED CT 33047128 / ConfirmedRare disorder causing involuntary movements and spasms / SNOMED CT 091504810 / ConfirmedesophagealLupus / SNOMED CT 63100316 / ConfirmedThoracic outlet syndrome / SNOMED CT 055934925 / ConfirmedbilateralResolved: Endometriosis / SNOMED CT 87R5NCF3-0UYR-348P-64OG-4U22C8X8A3 N5Liodgpfa: Fibromyalgia / SNOMED CT O4M276B7-G69L-6968-94A2-2119929L09 M8Mhngkjmn: Hyperlipidemia / SNOMED CT 19794478Rmzbarah: IBS (irritable bowel syndrome) / SNOMED CT 7QVPE796-4ZM9-175L-1QRA-87357614PM 4CResolved: Pancreatitis / SNOMED CT 298385180Jmhzhiac: RSD upper limb / SNOMED CT K4G7S0Z6-4WX8-29UG-3QZ3-340018ESK5 B0Opdilnye: SLE (systemic lupus erythematosus) / SNOMED CT 03H626H1-9640-87M5-2O81-OJ16TBX678 CFResolved: Thoracic outlet syndrome / SNOMED CT 60E53712-39S1-8904-5992-7XZ6697PC0 20 Histories Past Medical History: ResolvedFibromyalgia (N6J524Y6-Q49G-8185-62J2-5650309P3 0C0): Resolved.IBS (irritable bowel syndrome) (1EGAE272-0GW9-999A-8CGI-36481154C A4C): Resolved.Pancreatitis (140149400): Resolved.Endometriosis (07O2CND6-4LIO-643W-46BJ-9P84O1M7A 3C4): Resolved.Thoracic outlet syndrome (91X21865-17J8-1358-5336-9TI3893DA 020): Resolved.SLE (systemic lupus erythematosus) (24A547L0-8339-88C1-6J34-IJ97LXT20 8CF): Resolved.RSD upper limb (C8Z7A2E8-0PC0-81PS-3SH6-816977MVX 9C1): Resolved.Hyperlipidemia (69269090): Resolved. Family History: No family history items have been selected or recorded. Procedure history: History of tonsillectomy ([id number]). section ([id number]).Laparoscopic right ovarian cystectomy (7396094964).Thoracic outlet syndrome ([id number] 020).Comments:01/30/2016 12:01 - Ibrahima PARRISH, [facility] HospitalabilaterallyHistory of hysterectomy.. ([id number]).Laparoscope (603891266).Gallbladder (276636539).Endoscopy (5119192810).Colonoscopy (607029074).mri/ct abd.right shoulder scope. Social History Social & Psychosocial ZdufrnJwhfate76/17/2016 Risk Assessment: Low Risk Comment: denies current use - 10/05/2017 09:18 - Samantha Shelton RN ASubstance Abuse01/30/2016 Risk Assessment: Denies Substance Abuse Comment: denies current use - 10/05/2017 09:18 - Nikita PARRISH, Samantha ILebjmtr94/17/2016 Risk Assessment: Denies Tobacco Use Comment: denies [...] results Radiology results ECG interpretation Condition Plan [place] [employer]esthesiologists (ASA) physical status classification: Class II. Anesthetic Preoperative Plan Anesthesia: Monitored anesthesia care. Anesthetic plan, risks, benefits, and alternatives discussed with the patient and/or family. Risks discussed: nausea, vomiting, headache, sore throat, dental injury, serious complications. Patient verbalized understanding. Communication: face to face with (patient 5 minutes, Pt. educated on the importance of smoking cessation.). [facility] Comment on above: Result Comment: Elec tronically Signed By: Kaden Benítez Jr, DO\.julian\Date and Time Signed: 10/08/17 12:25 EDT Coding Summary.on 10-07-2017 Coding Summary. CODING DATE: 018 FINAL [facility] STATUS: Home (Routine DC) PAYOR: Medicare APC DESCRIPTION 5571 Level 1 Imaging with Contrast 5023 Level 5 Type A ED Visits ADMIT [...] Germain Date Saved: 10/07/2017 08:55 am [facility] Coding Summary. CODING DATE: 018 FINAL [facility] STATUS: Home (Routine DC) PAYOR: Medicare APC [...] Germain Date Saved: 10/07/2017 08:55 am [facility] ED Clinical Summaryon 2017 ED Clinical Summary [place] [id number] [place] [id number] ED Clinical SummaryPerson Information Name: SKIP HONG/[place] Age: 62 Years : 1955 12:00 AM Sex: Female Language:Martiniquais PCP: Anitha Ramey MD Marital Status: MRN: [id number] Visit Id: Visit Reason:Vomiting; Back pain; Abdominal [...] PM 10/06/2017 11:57 PM 10/06/2017 11:57 PM ADDRESS:[address] [place] [id number] PHYS DOC NOTES: MEDICAL INFORMATION: Prescriptions Given:Home Meds Display acetaminophen (Tylenol Extra Strength 500 mg oral tablet) 1,000 mg = 2 tab(s), Oral, PRN as needed for pain, Refills(s) 0 acetaminophen-hydrocodone ([place] 5/325 Tab) 1 tab(s), Oral, q6hr as [...] Pain, Adult Follow up:With: Address: When: Anitha Ramye [facility], [address] [place] [phone] [employer] (1) In 3 days 10/09/2017 Comments: Current [...] home medications. Having trouble affording medications? Try [facility]! (This is not a hospital endorsed website, merely a recommendation based on my own personal experiences with [employer]) Questions? Contact me anytime. Kade Howe MD, ALEX DIAGNOSIS:1:Abdominal pain [facility] ED Note-Physicianon 10-08-19 ED Note-Physician Basic Information Ti me Seen: Kade Howe MD 10/06/2017 19:47Chief Complaint abd and back pain since last thursday. hx of chronic pancreatitis. pt was seen here 10/05 in ED. also had xray done at [place] today. Dr Roy doing endoscopy tomorrow. pt [...] Meche In 3 days 10/09/2017 EDT [address] [place] [address]- Business (1) Additional Instructions: Current Diagnosis - [...] home medications. Having trouble affording medications? Try [facility]! (This is not a hospital endorsed website, merely a recommendation based on my own personal experiences with [employer]) Questions? Contact me anytime. Kade Howe MD, [...] Tab, 400 mg= 2 tab(s), Oral, q4hr [place] 5/325 Tab, 1 tab(s), Oral, q6hr, PRN [...] 13.7 % (10/06/17 20:30:00) Platelet: 337 E9/L (10/06/17:30:00) MPV: 7.6 fL (10/06/17 20:30:00) Neutro Auto: 72.4 % (10/06/17 20:30:00) Lymph Auto: 14.7 % (10/06/17 20:30:00) Davie Auto: 11.9 % (10/06/17 20:30:00) Eos Auto: 0.7 % (10/06/17:30:00) Basophil Auto: 0.3 % (10/06/17:30:00) Neutro Absolute: 7.7 E9/L High (10/06/17:30:00) Lymph Absolute: 1.6 E9/L (10/06/17 20:30:00) Davie Absolute: 1.3 E9/L High (10/06/17 20:30:00) Eos Absolute: 0.1 E9/L (10/06/17:30:00) Basophil Absolute: 0 E9/L (10/06/17:30:00) Glucose Lvl: 111 mg/dL (10/06/17 20:30:00) BUN: 10 mg/dL (10/06/17:30:00) Creatinine: 0.9 mg/dL (10/06/17:30:00) eGFR: >60 (10/06/17:30:00) eGFR AA: >60 (10/06/17:30:00) BUN/Creat Ratio: 11 (10/06/17 20:30:00) Sodium Lvl: 138 mmol/L (10/06/17 20:30:00) Potassium Lvl: 3.8 mmol/L (10/06/17 20:30:00) Chloride: 105 mmol/L (10/06/17 20:30:00) CO2: 22 mmol/L (10/06/17 20:30:00) AGAP: 15 mEq/L (10/06/17 20:30:00) Calcium Lvl: 9.4 mg/dL (10/06/17 20:30:00) Alk Phos: 85 Int._Unit/L (10/06/17 20:30:00) ALT: 31 Int._Unit/L (10/06/17 20:30:00) AST: 33 Int._Unit/L (10/06/17 20:30:00) Total Protein: 7.6 gm/dL (10/06/17 20:30:00) Albumin Lvl: 4.4 gm/dL (10/06/17 20:30:00) Globulin: 3.2 gm/dL (10/06/17 20:30:00) A/G Ratio: 1.4 (10/06/17 20:30:00) Bili Total: 0.4 mg/dL (10/06/17 20:30:00) Lipase Lvl: 22 unit/L (10/06/17 20:30:00) Lactic Acid Lvl: 12.3 mg/dL (10/06/17 21:13:00) Magnesium: 2.1 mg/dL (10/06/17 20:30:00) CK MB: 1 ng/mL (10/06/17 21:13:00) Myoglobin: [...] Blood: NEGATIVE1 (10/06/17 20:56:00) UA Nitrite: NEGATIVE1 (04/24/18 20:56:00) UA Urobilinogen: 0.2 (10/06/17 20:56:00) UA Leuk Est: Trace2 Abnormal (10/06/17 20:56:00) UA RBC: 0-3 (10/06/17 20:56:00) UA Squam Epithelial: 0-2 (10/06/17 20:56:00) UA WBC: 0-5 (10/06/17 20:56:00)Diagnostic Results No qualifying data available. [facility] Comment on above: Result Comment: [...] any discomfort you are experiencing:? Only take wtgw-umg-itabmpp or prescription medicines as directed by your [...] 06/06/2014 Document Reviewed: 02/08/2014ExitCare? Patient Information ?2014 Phase III Development. This information is not intended to replace advice given to you by your health care provider. Make sure you discuss any questions you have with your health care provider. [facility] ED Patient Summaryon 018 ED Patient Summary [address] [address] Patient Discharge Instructions Person Information Name: SKIP HONG Age: 62 Years Date: 10/06/2017 7:31 PMDischarge Diagnosis: 1:Abdominal pain Primary Care Physician: Anitha Ramey MD Provider InformationPrimary Provider: Kade Howe MDAdvanced Assistant Account Executive:None The exam and treatment you received in the Emergency Department were for an urgent problem and are not intended as complete care. It is important that you follow up with a doctor, nurse practitioner, or physician?s ex assistant/program director for ongoing care. If your symptoms become worse or you do not improve as expected and you are unable to reach your usual health care provider, you should return to the Emergency Department. We are available 24 hours a day. SKIP HONG has been given the following list of patient education materials, prescriptions and follow-up instructions: Follow-up Instructions:With: Address: When: Anitha Ramey [address] [place] [address], [place] [address] Business (1) In 3 days [...] home medications. Having trouble affording medications? Try [facility]! (This is not a hospital endorsed website, merely a recommendation based on my own personal experiences with [employer]) Questions? Contact me anytime. Kade Howe MD, ALEX In the event that this physician does not participate in your insurance network, please consult with your insurance company to find a nearby participating provider. Patient Education Materials:Abdominal Pain, Adult A MESSAGE TO ALL PATIENTS REGARDING OPIOIDS PRESCRIPTION OPIOIDS: WHAT YOU NEED TO KNOW Prescription opioids can be used to help relieve jdoagmeh-nf-njgobi pain and are often prescribed following a [...] be struggling with addiction, tell your health child care provider and ask for guidance or call [facility]?S National Helpline at 5-773-744-CKYR. b Source: US Department of Health and Human Services/Center for Disease Control & Prevention [facility] Medications Given:Medication Dose Route No [...] Mouth as needed as needed for pain.acetaminophen-hydrocodone ([place] 5/325 Tab) 1 Tabs By Mouth every [...] Pain.Comment: Pharmacy Information: Thank you for choosing [facility] Patient Education Materials: Abdominal PainMany things can [...] any discomfort you are experiencing:? Only take dctj-zyw-bmibjvh or prescription medicines as directed by your [...] 06/06/2014 Document Reviewed: 02/08/2014ExitCare? Patient Information ?2015 Phase III Development. This information is not intended to replace advice given to you by your health care provider. Make sure you discuss any questions you have with your health care provider.ABDIAS Carpio JEAN M , have received the following patient education materials/instructions and have verbalized understanding: Patient Education Materials: Abdominal Pain, Adult Follow-up Instructions: With: Address: When: Anitha Ramey [address] [facility], [address] [place] [phone] Business (1) In 3 days 10/09/2017 Comments: [...] home medications. Having trouble affording medications? Try [facility]! (This is not a hospital endorsed website, merely a recommendation based on my own personal experiences with [employer]) Questions? Contact me anytime. Kade Howe MD, ALEX Prescriptions: Patient Signature Date Clinician/Nurse Signature Date 10/06/17 23:57:53 [facility] History and Physicalon 10-07 History and Physical Date: 09/29/2017 1:15 PMPatient Name: Skip Seals #: [id number]: FemaleDOB (age): 1955 (62)Provider: Maylin Duarte Physician: Anitha Ramey MD[address] [place] [address] (phone) (fax)Chief Complaint: Abdominal, Bloating and gasHistory [...] epigastric pain, she was recently admitted at [facility], she had abdominalcomputed tomography scan which [...] status unknownDrugs: NonePrinted on 10/02/2017 Skip Hong, [address], 1955 Page 1 of 4Printed on 10/02/2017 Skip Hong, [address]3904, 1955Exercise: walking daily.Caffeine: tea and coffee.Marital Status: [...] Signs:BP(mmHg)Pulse(ppm)Rhythm Weight (lbs/oz) Height (ft/in) BMI Resp/min Wbmt097/79 85 Regular 134 / 5 / 3 [...] mealsEGD (Upper Endoscopy) will be performed at [facility].Printed on 10/02/2017 Skip Hong, 90736, 1955 Page 2 of 4Printed on 10/02/2017 Skip Hong, 69616, 1955T Abdomen w/wo contrast (Pancreatic Protocol)Risk & Medical Necessity: Diagnosis and management options are Minimal. The amount of data reviewed and/orordered is Minimal/None. The level of risk is Minimal.Luli Roy MD Skip Hong, 26817, 1955 Page 3 of 4Printed on 10/02/2017 Skip Hong, 29693, 1955Printed on 10/02/2017 Skip Hong, 81218, 1955 Page 4 of 4Printed on 10/02/2017 Skip Hong, 26515, 1955no change [facility] Comment on above: Result Comment: Elec tronically Signed By: Luli Roy MD\.br\Date and Time Signed: 10/07/17 09:30 EDT Inpatient Patient Summaryon 10-07-2017 In[facility] Dis[facility] InstructionsPERSON INFORMATION Name: SKIP HONG PHYSICIANS Admitting Physician: Blossom Roy MD Physician: Luli Roy MD PCP: Gagan Ramey MD Diagnosis: Abdominal pain Comment: PATIENT EDUCATION INFORMATIONInstructions:Esophagoga stroduodenoscopy, Care AfterMedication Leaflets:Follow up:With: Address: When: Luli Roy [facility], [address] [place] [address] [facility] (1) Within 1 to 2 weeks Comments: Call for any problems. Keep scheduled appointment Type Location Start Finish State CT Abdomen (FT) FT.CAT SCAN 10/16/2017 10:00 AM 10/16/2017 10:45 AM Confirmed MEDICATION LISTComment: [facility] Main OR PACU I Recordon 09-14 Main OR PACU I Record PACU Phase I Document Type FT Summary Primary Physician: Luli Roy MD Finalized Date/Time: 10/07/17 10:35:12 Pt. Name: SKIP HONG /Sex: 1955 Female Med Rec #: [id number] Physician: Luli Roy MD Financial #: [id number] Pt. Type: O Room/Bed: / Admit/Disch: 10/07/17 [...] By: Siomara Arango RN 10/07/17 10:35 [facility] Main OR Preoperative Recordo n 10-07-2017 Main OR Preoperative Record Holding Area Document Type FT Summary Primary Physician: Luli Roy MD Finalized Date/Time: 10/07/17 09:03:24 Pt. Name: SKIP HONG Jarod Henry/Sex: 1955 Female Med Rec #: [id number] Physician: Luli Roy MD Financial #: [id number] Pt. Type: O Room/Bed: / Admit/Disch: 10/07/17 [...] By: Marcela Weston RN 10/07/17 09:03 [facility] Patient Education - Texton 0 [...] 05/18/2013 Document Reviewed: 05/18/2013ExitCare? Patient Information ?2014 Phase III Development. This information is not intended to replace advice given to you by your health care provider. Make sure you discuss any questions you have with your health care provider. [facility] Progress Note-Nurseon 2017 Protein mass [...] without any further questions/needs. DC home. [facility] Protein mass conc Physician to call GI Dr Roy. Holding discharge home at this time. Holding DC as pt remains in pain. [facility] Protein mass conc Physician at bedside speaking to pt of test results. [facility] Progress Note-Physicianon Protein mass conc Patient: [...] list: All ProblemsPancreatitis, acute / SNOMED CT 871012195 / ConfirmedFrozen shoulder / SNOMED CT 5442146017 / ConfirmedRIGHTArthritis / SNOMED CT 6683485 / Confirmedneck and lower backChronic colitis / SNOMED CT 22152215 / ConfirmedC. difficile diarrhea / SNOMED CT 6275333545 / [facility] 3 years agoRSD (reflex sympathetic dystrophy) / SNOMED CT 4924637141 / ConfirmedPancreatic cyst / SNOMED CT 04567062 / ConfirmedDiverticulosis / SNOMED CT 5928652606 / ConfirmedFibromyalgia / SNOMED CT 63983719 / ConfirmedAcid reflux / SNOMED CT 271698536 / ConfirmedH/O pleurisy / SNOMED CT 164021373 / ConfirmedIBS (irritable bowel syndrome) / SNOMED CT 45887268 / ConfirmedMigraines / SNOMED CT 52690516 / ConfirmedRare disorder causing involuntary movements and spasms / SNOMED CT 697877732 / ConfirmedesophagealLupus / SNOMED CT 88986061 / ConfirmedThoracic outlet syndrome / SNOMED CT 714188435 / ConfirmedbilateralResolved: Endometriosis / SNOMED CT [id number]-2Z74Z6O1R2 I2Ibnybrun: Fibromyalgia / SNOMED CT [id number] B9Auswrxwv: Hyperlipidemia / SNOMED CT 00415672Izerbjyd: IBS (irritable bowel syndrome) / SNOMED CT [id number]-90277288AV 4CResolved: Pancreatitis / SNOMED CT 618566682Sguyislc: RSD upper limb / SNOMED CT K9M2T6H9-0HC8-14TG-1SC1-878734KCZ9 M7Lhbfyxeq: SLE (systemic lupus erythematosus) / SNOMED CT [id number] CFResolved: Thoracic outlet syndrome / SNOMED CT [id number] 20 Physical Examination Vital Signs 10/07/2017 09:50 [...] vomiting. Plan Transfer/ Discharge: Condition stable. Normal [facility] Comment on above: Result Comment: Elec tronically Signed By: Jeyson Cordova DO, Kaden Howell\.julian\Date and Time Signed: 10/07/17 10:04 EDT Auto Diffon 10-06-2017 Basophils Auto #/vol (Bld) 0.3 % Normal 0.0-2.0 [facility] Comment on above: Order Comment: Order Added by Discern Expert. Performed By: #### 2 889404, 7134373, 5674682, 6975351, 2087215, 1013797, 12035202 ####[facility] [address] [place] [address] Basophils/Leukocy jarrett Auto Pure number fraction (Bld) 0.0 E9/L Normal 0.0-0.2 [facility] Comment on above: Order Comment: Order Added by Discern Expert. Performed By: #### 2 276498, 8603960, 8524735, 4683318, 1646431, 1401688, 42164299 ####[facility] [address] [place] [address] Eosinophils/100 WBC Auto (Bld) 0.7 % Normal 0.0-8.0 [facility] Comment on above: Order Comment: Order Added by Discern Expert. Performed By: #### 2 629860, 7894041, 7882841, 2791247, 8114592, 5961875, 20084916 ####[facility] [address] [place] [address] Eosinophils/Leuko cytes Auto Pure number fraction (Bld) 0.1 E9/L Normal 0.0-0.5 [facility] Comment on above: Order Comment: Order Added by Discern Expert. Performed By: #### 2 141729, 1570629, 9674214, 1887199, 2544428, 2764963, 65763791 ####[facility] [address] [place] [address] Lymphocytes/100 WBC Auto (Bld) 14.7 % Normal 14.0-50.0 [facility] Comment on above: Order Comment: Order Added by Discern Expert. Performed By: #### 2 875612, 6522503, 8674099, 1162655, 3726820, 0289325, 78183166 ####[facility] [address] [place] [address] Lymphocytes/Leuko cytes Auto Pure number fraction (Bld) 1.6 E9/L Normal 1.0-4.0 [facility] Comment on above: Order Comment: Order Added by Discern Expert. Performed By: #### 2 123309, 3124661, 1270992, 7532837, 5636139, 0479225, 33742018 ####[place] [address] [place] [address] Monocytes/100 WBC Auto (Bld) 11.9 % Normal 4.0-14.0 [facility] Comment on above: Order Comment: Order Added by Discern Expert. Performed By: #### 2 312359, 1788940, 9817244, 1232939, 9268374, 7419496, 80642269 ####[address] [address] Monocytes/Leukocy jarrett Auto Pure number fraction (Bld) 1.3 E9/L High 0.2-1.0 [facility] Comment on above: Order Comment: Order Added by Discern Expert. Performed By: #### 2 092613, 7143531, 5766668, 1285111, 5715703, 1984356, 43834014 ####[place] [address] [place] [address] Neutrophils/100 WBC Auto (Bld) 72.4 % Normal 36.0-75.0 [facility] Comment on above: Order Comment: Order Added by Discern Expert. Performed By: #### 2 066362, 4279097, 3563714, 6037048, 0640681, 1626849, 52830192 ####[place] [address] [place] [address] Neutrophils/Leuko cytes Auto Pure number fraction (Bld) 7.7 E9/L High 2.0-7.5 [facility] Comment on above: Order Comment: Order Added by Discern Expert. Performed By: #### 2 460995, 5814554, 2044111, 2747772, 2538788, 9782429, 88659916 ####[address] [address] CBC w/ Auto Diffon 8 Erythrocyte distribution width Auto Ratio (RBC) 13.7 % Normal 10.9-14.2 [facility] Comment on above: Performed By: #### 2 452768, 1255467, 3984253, 3821369, 6421936, 0145250, 35221657 ####[address] [address] Hematocrit Auto Volume Fraction (Bld) 44.0 % Normal 34.0-46.0 [facility] Comment on above: Performed By: #### 2 488830, 8082325, 3506662, 9435323, 1276517, 2392066, 18934999 ####[address] [address] Hemoglobin mass conc (Bld) 14.5 g/dL Normal 12.0-16.0 [facility] Comment on above: Performed By: #### 2 274062, 6576395, 9663023, 1209764, 1249463, 9844538, 17316987 ####[address] [address] MCH Auto Entitic mass (RBC) 30.0 pg Normal 27.0-34.0 [facility] Comment on above: Performed By: #### 2 509736, 9729201, 9036300, 3322886, 0990568, 6719462, 82541997 ####[address] [address] MCHC Auto mass conc (RBC) 33.0 g/dL Normal 31.4-39.3 [facility] Comment on above: Performed By: #### 2 733111, 3065125, 3285701, 5734398, 5065305, 6991895, 02026183 ####[place] [address] [place] [address] MCV Auto Entitic volume (RBC) 90.9 fL Normal 80.0-100.0 [facility] Comment on above: Performed By: #### 2 356338, 3585099, 5807133, 7094836, 1356070, 2522107, 55659013 ####[address] [address] Platelet mean volume Auto Entitic volume (Bld) 7.6 fL Normal 6.4-10.8 [facility] Comment on above: Performed By: #### 2 151330, 1045820, 9366690, 1197846, 7692566, 8987491, 17120413 ####[address] [address] Platelets Auto #/vol (Bld) 337.0 E9/L Normal 150.0-500. 0 [facility] Comment on above: Performed By: #### 2 966800, 7362032, 0847497, 3188200, 1565527, 0263353, 29620948 ####[address] [address] RBC Auto #/vol (Bld) 4.8 E12/L Normal 4.3-5.9 [facility] Comment on above: Performed By: #### 2 042484, 9378666, 4271194, 6438523, 3654301, 3313770, 89346064 ####[address] [address] WBC corrected for nucl RBC Auto #/vol (Bld) 10.7 E9/L Normal 4.0-11.0 [facility] Comment on above: Performed By: #### 2 479575, 2723562, 2819111, 3653168, 7375146, 4258584, 47749421 ####[address] [address] CMPon 10-06-2017 Albumin mass conc 1.4 g/dL Normal 1.1-2.2 [facility] Comment on above: Performed By: #### 2 384607, 9031442, 7045196, 3159536, 3039272, 4795251, 54073284 ####[facility] [address] [place] [address] Albumin mass conc 4.4 g/dL Normal 3.3-5.0 [facility] Comment on above: Performed By: #### 2 779628, 1551699, 2615170, 3384527, 8643822, 3605229, 28465204 ####[facility] [address] [place] [address] ALP enzyme act/vol 85 Int._Unit/L Normal 21-98 [facility] Comment on above: Performed By: #### 2 450275, 6100199, 4543757, 6641124, 5948840, 4206005, 68787133 ####[facility] [address] [place] [address] ALT No additional P-5'-P enzyme act/vol 31 Int._Unit/L Normal 6-46 [facility] Comment on above: Performed By: #### 2 494016, 5204072, 5305564, 7341949, 8984253, 9196863, 15809892 ####[facility] [address] [place] [address] AST enzyme act/vol 33 Int._Unit/L Normal 5-43 [facility] Comment on above: Performed By: #### 2 792026, 8066242, 0412574, 0834868, 5346779, 9406214, 62477295 ####[facility] [address] [place] [address] Bilirubin mass conc 0.4 mg/dL Normal 0.0-1.1 [facility] Comment on above: Performed By: #### 2 158886, 3428240, 6898895, 4608595, 0406144, 9025710, 89315975 ####[facility] [address] [place] [address] Creatinine mass conc 0.9 mg/dL Normal 0.5-1.3 [facility] Comment on above: Performed By: #### 2 848485, 0120592, 3405425, 5666942, 0463048, 3817758, 83619060 ####[facility] [address] [place] [address] Globulin Calculated mass conc (S) 3.2 g/dL Normal 1.4-4.0 [facility] Comment on above: Performed By: #### 2 623408, 6695331, 0829213, 6437358, 1868895, 9016540, 62998655 ####[facility] [address] [place] [address] Protein mass conc 7.6 g/dL Normal 6.0-7.8 [facility] Comment on above: Performed By: #### 2 632645, 9996524, 6741079, 9856255, 9257854, 7089148, 54728426 ####[facility] [address] [place] [address] Urea nitrogen mass conc 10 mg/dL Normal 5-21 [facility] Comment on above: Performed By: #### 2 406249, 4586680, 9339692, 6437956, 3595565, 6794515, 11121188 ####[facility] [address] [place] [address] Urea nitrogen/Creatini ne mass ratio 11 No Units Normal 10-20 [facility] Comment on above: Performed By: #### 2 469053, 1546543, 7851741, 9364053, 0281549, 1668341, 25063760 ####[facility] [address] [place] [address] Anion gap 3 molar conc 15 mmol/L Normal 6-16 [facility] Comment on above: Performed By: #### 2 971516, 8671604, 7428226, 9962072, 0072851, 6725333, 29686824 ####[facility] [address] [place] [address] Calcium mass conc 9.4 mg/dL Normal 8.9-11.1 [facility] Comment on above: Performed By: #### 2 204578, 9412035, 5072665, 0251658, 2102812, 6901643, 06170360 ####[facility] [address] [place] [address] Chloride molar conc 105 mmol/L Normal 101-111 [facility] Comment on above: Performed By: #### 2 713078, 6726942, 3476028, 0565765, 6638288, 9207621, 20098313 ####[facility] [address] [place] [address] CO2 molar conc 22 mmol/L Normal 21-31 [facility] Comment on above: Performed By: #### 2 307812, 5043691, 0357371, 8526303, 9193061, 1562874, 17235513 ####[facility] [address] [place] [address] Glucose mass conc 111 mg/dL Normal 55-199 [facility] Comment on above: Result Comment: If t his glucose result represents a fasting glucose, interpretation should refer to the following reference range: 55-99 mg/dL Performed By: #### 2 864710, 7460595, 9248083, 4633500, 9756179, 1030453, 35096089 ####[facility] [address] [place] [address] Potassium molar conc 3.8 mmol/L Normal 3.5-5.3 [facility] Comment on above: Performed By: #### 2 838856, 9248026, 9335183, 1828248, 4978683, 3912790, 78631844 ####[facility] [address] [place] [address] Sodium molar conc 138 mmol/L Normal 135-145 [facility] Comment on above: Performed By: #### 2 258780, 0621775, 5937187, 2891569, 1100033, 7498846, 57028885 ####[facility] [address] [place] [address] Cardiac 0 Hr.on 10-06-2017 Creatine kinase.MB 1.0 ng/mL Normal 0.3-4.9 [facility] Comment on above: Performed By: #### 2 731629, 6783034, 9203569, 4082474, 6345759, 7423630, 26039843 ####[facility] [address] [place] [address] Myoglobin mass conc 16 ng/mL Normal <=69 [facility] Comment on above: Performed By: #### 2 874849, 4737996, 2767248, 9370269, 5478952, 6656636, 65960573 ####[facility] [address] [place] [address] Troponin I.cardiac mass conc ng/mL Normal <=0.03 [facility] Comment on above: Result Comment: New Troponin Assay 10/27/13ROC [place] Cutoff value > or = 0.03 ng/mL in conjunction with clinical conditions of myocardial infarction.([email or web address]/[email or web address]) Performed By: #### 2 883419, 2532894, 7124143, 0592154, 8489723, 7385338, 37569797 ####[facility] [address] [place] [address] CK enzyme act/vol 70 Int._Unit/L Normal 14-261 [facility] Comment on above: Performed By: #### 2 568344, 6511438, 8924246, 7135210, 9795774, 8932761, 89245694 ####[facility] [address] [place] [address] Coding Summary.on 10-06-2017 Coding Summary. CODING DATE: 018 FINAL [facility] STATUS: Home (Routine DC) PAYOR: Medicare APC DESCRIPTION 5571 Level 1 Imaging with Contrast 2964 Level 4 Type A ED Visits 5693 [...] Germain Date Saved: 10/06/2017 09:07 am Normal [facility] Coding Summary. CODING DATE: 018 FINAL [facility] STATUS: Home (Routine DC) PAYOR: Medicare APC [...] Germain Date Saved: 10/06/2017 09:06 am Normal [facility] ED Note-Physicianon 10-07-19 ED Note-Physician Basic Information Ti me Seen: Carley PRAISI, Kade Estrada. 10/06/2017 19:47Chief Complaint abd and back pain since last thursday. hx of chronic pancreatitis. pt was seen here 10/05 in ED. also had xray done at [place] today. Dr Roy doing endoscopy tomorrow. pt [...] available.Diagnostic Results No qualifying data available. Normal [facility] Comment on above: Result Comment: Elec tronically Signed By: Carley PARISI, Kade Sloan\.br\Date and Time Signed: 10/06/17 20:26 EDT Lactic Acidon 10-06-2017 Lactate mass conc 12.3 mg/dL Normal 4.5-19.8 [facility] Comment on above: Performed By: #### 2 716872, 0301745, 7850282, 3185642, 0220735, 1215800, 75590099 ####[facility] [address] [place] [address] Lipase Levelon 10-06-2017 Lipase enzyme act/vol 22 unit/L Normal 13-58 [facility] Comment on above: Performed By: #### 2 589071, 1740655, 7640340, 7615512, 5708458, 3542524, 88963780 ####[facility] [address] [place] [address] Magnesiumon 10-06-2017 Magnesium mass conc 2.1 mg/dL Normal 1.3-2.4 [facility] Comment on above: Performed By: #### 2 607475, 3893169, 8058464, 1552931, 0987974, 1517860, 04319705 ####[facility] [address] [place] [address] Progress Note-Nurseon 2017 Protein mass conc Pt to CT scan now. Normal [facility] Protein mass conc Pt up to restroom wi th significant other at this time. Normal [facility] Protein mass conc Pt resting in bed, U A sent to lab. Pts significant other at bedside. Pt aware of plan, waiting to go to CT and waiting for test results. Call light in reach. Normal [facility] Protein mass conc Physician at bedside assessing patient at this time. Normal [facility] UA With Cult Reflexon 2017 Bilirubin Ql (U) Negative Normal Negative [facility] Comment on above: Performed By: #### 2 750301, 6063049, 4278544, 4157841, 3783777, 9852847, 65153682 ####[facility] [address] [place] [address] Clarity Nom (U) CLEAR Normal Clear [facility] Comment on above: Performed By: #### 2 840232, 9236292, 0702274, 2161100, 1230097, 6055679, 32886092 ####[facility] [address] [place] [address] Color Auto Nom (U) YELLOW Normal Yellow [facility] Comment on above: Performed By: #### 2 281183, 5978777, 2525213, 5284635, 4865882, 2180552, 63601684 ####[facility] [address] [place] [address] Epithelial cells.squamous LM.HPF #/area (Urine sed) 0-2 Normal 0-2 [facility] Comment on above: Performed By: #### 2 687132, 1481187, 0511087, 0035412, 1457232, 9014559, 24556222 ####[facility] [address] [place] [address] Glucose Test strip mass conc (U) Negative Normal Negative [facility] Comment on above: Performed By: #### 2 347650, 9335136, 0927189, 8383422, 6768390, 3901789, 13605872 ####[facility] [address] [place] [address] Hemoglobin Test strip Ql (U) Negative Normal Negative [facility] Comment on above: Performed By: #### 2 257439, 0366202, 5873785, 6432982, 5624283, 1209862, 59554290 ####[facility] [address] [place] [address] Ketones mass conc (U) Negative Normal Negative [facility] Comment on above: Performed By: #### 2 963976, 0359517, 7208721, 0088583, 6421137, 8944683, 70123250 ####[facility] [address] [place] [address] Alger.plasma/Li thium.RBC mass ratio (Bld) 0-3 Normal 0-3 [facility] Comment on above: Performed By: #### 2 673570, 8534364, 3164813, 6906443, 5954911, 1594190, 70082650 ####[facility] [address] [place] [address] Nitrite Test strip Ql (U) Negative Normal Negative [facility] Comment on above: Performed By: #### 2 816943, 4469273, 5522411, 7070256, 8034089, 8528887, 38499872 ####[facility] [address] [place] [address] pH Test strip (U) 5.5 [pH] Invalid Interpretation Code 5.0-9.0 [facility] Comment on above: Performed By: #### 2 934522, 8300250, 6358243, 2395110, 1620671, 4120325, 16327384 ####[facility] [address] [place] [address] Protein mass conc (U) Negative Normal Negative [facility] Comment on above: Performed By: #### 2 889968, 7917674, 9704847, 5910898, 3576048, 8535166, 08879088 ####[facility] [address] [place] [address] Specific gravity Relative Density (U) <=1.005 Invalid Interpretation Code 1.005-1.03 0 [facility] Comment on above: Performed By: #### 2 294329, 9067655, 4055265, 4359745, 6956313, 7816133, 12122664 ####[facility] [address] [place], [place] [address] UA Spec Desc Clean Catch Normal [facility] Comment on above: Performed By: #### 2 022309, 0575443, 5993067, 9824214, 9714424, 7513582, 02177509 ####[facility] [address] [place], [place] [address] Urobilinogen Test strip Qn (U) 0.2 {Antonina'U}/dL Normal 0.0-1.0 [facility] Comment on above: Performed By: #### 2 825382, 1469505, 5089031, 4734037, 4549122, 7131194, 01323517 ####[facility] [address] [place], [place] [address] WBC Auto Ql (U) TRACE Abnormal Negative [facility] Comment on above: Performed By: #### 2 655409, 5487045, 5745421, 7794510, 0325879, 6910010, 79385387 ####[place] [address] [place] [address] WBC LM.HPF #/area (Urine sed) 0-5 Normal 0-5 [facility] Comment on above: Performed By: #### 2 794210, 5065815, 4115018, 6695227, 2886583, 6510497, 63037217 ####[facility] [address] [place] [address] eGFRon 10-06-2017 GFR/1.73 sq M predicted among blacks MDRD vol rate/area (S/P/Bld) mL/min/{1.73_m2} Normal >=59 [facility] Comment on above: Order Comment: Order added by Discern Expert. Result Comment: eGFR is race adjusted. AA=. Performed By: #### 2 607199, 2605996, 5353682, 6645714, 2362751, 8283634, 59665125 ####[facility] [address] [place] [address] GFR/1.73 sq M predicted among non-blacks MDRD vol rate/area (S/P/Bld) mL/min/{1.73_m2} Normal >=59 [facility] Comment on above: Order Comment: Order added by Endy Expert. Result Comment: Brick Tender seng kidney disease could be indicated at eGFR's of less than 60 mL/min/1.73m2. Kidney failure is indicated at less than 15 mL/min/1.73m2. Performed By: #### 2 206409, 0945907, 5362822, 2264744, 1922318, 2242934, 22790773 ####[facility] [address] [place] [address] Auto Diffon 10-05-2017 Basophils Auto #/vol (Bld) 0.4 % Normal 0.0-2.0 [facility] Comment on above: Order Comment: Order Added by Discern Expert. Performed By: #### 2 464697, 9069583, 8984494, 6707402, 7896590, 8375312, 34950665 ####[facility] [address] [place] [address] Basophils/Leukocy jarrett Auto Pure number fraction (Bld) 0.0 E9/L Normal 0.0-0.2 [facility] Comment on above: Order Comment: Order Added by Discern Expert. Performed By: #### 2 389413, 4459418, 1359618, 4331511, 9367072, 2648655, 38312577 ####[place] [address] [place] [address] Eosinophils/100 WBC Auto (Bld) 1.3 % Normal 0.0-8.0 [facility] Comment on above: Order Comment: Order Added by Discern Expert. Performed By: #### 2 933323, 8781413, 0816065, 1330167, 9367446, 7905851, 71353558 ####[facility] [address] [place] [address] Eosinophils/Leuko cytes Auto Pure number fraction (Bld) 0.1 E9/L Normal 0.0-0.5 [facility] Comment on above: Order Comment: Order Added by Discern Expert. Performed By: #### 2 158599, 0682005, 2950813, 3116045, 3211394, 3144555, 36285659 ####[address] [address] Lymphocytes/100 WBC Auto (Bld) 19.8 % Normal 14.0-50.0 [facility] Comment on above: Order Comment: Order Added by Discern Expert. Performed By: #### 2 841174, 9941781, 1841166, 5212869, 3870579, 2620506, 54441384 ####[place] [address] [place] [address] Lymphocytes/Leuko cytes Auto Pure number fraction (Bld) 1.5 E9/L Normal 1.0-4.0 [facility] Comment on above: Order Comment: Order Added by Discern Expert. Performed By: #### 2 881755, 4710454, 4720641, 9709375, 7571049, 3586426, 47323273 ####[place] [address] [place] [address] Monocytes/100 WBC Auto (Bld) 11.5 % Normal 4.0-14.0 [facility] Comment on above: Order Comment: Order Added by Discern Expert. Performed By: #### 2 724717, 2056495, 7798716, 2856612, 3361495, 3968244, 72102530 ####[facility] [address] [place] [address] Monocytes/Leukocy jarrett Auto Pure number fraction (Bld) 0.9 E9/L Normal 0.2-1.0 [facility] Comment on above: Order Comment: Order Added by Discern Expert. Performed By: #### 2 111426, 0031149, 7496351, 5849029, 6473500, 0528734, 45799964 ####[facility] [address] [place] [address] Neutrophils/100 WBC Auto (Bld) 67.0 % Normal 36.0-75.0 [facility] Comment on above: Order Comment: Order Added by Discern Expert. Performed By: #### 2 679577, 7296724, 8535577, 4269981, 8723156, 2070681, 11499723 ####[place] [address] [place] [address] Neutrophils/Leuko cytes Auto Pure number fraction (Bld) 4.9 E9/L Normal 2.0-7.5 [facility] Comment on above: Order Comment: Order Added by Discern Expert. Performed By: #### 2 421319, 5535593, 5305388, 2956362, 9751782, 7044170, 43909393 ####[place] [address] [place] [address] BMPon 10-05-2017 Creatinine mass conc 0.7 mg/dL Normal 0.5-1.3 [facility] Comment on above: Performed By: #### 2 539287, 8349739, 4219403, 7684614, 8871335, 0384044, 60231495 ####[facility] [address] [place] [address] Urea nitrogen mass conc 8 mg/dL Normal 5-21 [facility] Comment on above: Performed By: #### 2 467519, 3249903, 5241811, 6591218, 1221030, 9219959, 67662034 ####[facility] [address] [place] [address] Urea nitrogen/Creatini ne mass ratio 11 No Units Normal 10-20 [facility] Comment on above: Performed By: #### 2 992474, 1392946, 6158317, 0494517, 4254898, 9145411, 37527793 ####[facility] [address] [place] [address] Anion gap 3 molar conc 10 mmol/L Normal 6-16 [facility] Comment on above: Performed By: #### 2 036524, 9866582, 6985779, 3255560, 3228383, 3102681, 63425896 ####[facility] [address] [place] [address] Calcium mass conc 9.3 mg/dL Normal 8.9-11.1 [facility] Comment on above: Performed By: #### 2 796511, 4943902, 1523621, 6112176, 3597725, 9411410, 39970527 ####[facility] [address] [place] [address] Chloride molar conc 107 mmol/L Normal 101-111 [facility] Comment on above: Performed By: #### 2 356730, 9250861, 0461125, 6301104, 1429156, 2480918, 41979031 ####[facility] [address] [place] [address] CO2 molar conc 27 mmol/L Normal 21-31 [facility] Comment on above: Performed By: #### 2 272730, 3033311, 0536197, 1202587, 2275144, 7358357, 39093804 ####[facility] [address] [place] [address] Glucose mass conc 92 mg/dL Normal 55-199 [facility] Comment on above: Result Comment: If t his glucose result represents a fasting glucose, interpretation should refer to the following reference range: 55-99 mg/dL Performed By: #### 2 794236, 1634735, 8240965, 4949772, 9644540, 7130913, 30625996 ####[facility] [address] [place] [address] Potassium molar conc 3.6 mmol/L Normal 3.5-5.3 [facility] Comment on above: Performed By: #### 2 239486, 5592850, 6582069, 8543593, 0243657, 8936609, 80147845 ####[facility] [address] [place] [address] Sodium molar conc 140 mmol/L Normal 135-145 [facility] Comment on above: Performed By: #### 2 659313, 5702057, 8134941, 5340779, 4368950, 0009781, 35750022 ####[facility] [address] [place] [address] CBC w/ Auto Diffon Erythrocyte distribution width Auto Ratio (RBC) 13.8 % Normal 10.9-14.2 [facility] Comment on above: Performed By: #### 2 497894, 9429981, 1510780, 5846551, 7373077, 9243854, 71074819 ####[facility] [address] [place] [address] Hematocrit Auto Volume Fraction (Bld) 40.8 % Normal 34.0-46.0 [facility] Comment on above: Performed By: #### 2 494699, 6082730, 3596616, 0042737, 1971650, 1891653, 91151717 ####[facility] [address] [place] [address] Hemoglobin mass conc (Bld) 13.7 g/dL Normal 12.0-16.0 [facility] Comment on above: Performed By: #### 2 785329, 7844640, 2663992, 1735339, 3657035, 2762007, 96263072 ####[facility] [address] [place] [address] MCH Auto Entitic mass (RBC) 30.3 pg Normal 27.0-34.0 [facility] Comment on above: Performed By: #### 2 315972, 5552957, 0620207, 6542895, 7791487, 5504282, 82308666 ####[place] [address] MCHC Auto mass conc (RBC) 33.6 g/dL Normal 31.4-39.3 [facility] Comment on above: Performed By: #### 2 289136, 4632182, 2358113, 6156311, 3620636, 4699422, 87721672 ####[place] [address] MCV Auto Entitic volume (RBC) 90.1 fL Normal 80.0-100.0 [facility] Comment on above: Performed By: #### 2 343356, 2646085, 9004586, 2192840, 8014231, 9879605, 65625987 ####[place] [address] Platelet mean volume Auto Entitic volume (Bld) 7.5 fL Normal 6.4-10.8 [facility] Comment on above: Performed By: #### 2 841678, 7544242, 3350414, 2445148, 4149155, 2198987, 76579922 ####[address] [address] Platelets Auto #/vol (Bld) 280.0 E9/L Normal 150.0-500. 0 [facility] Comment on above: Performed By: #### 2 496490, 9308916, 2820451, 0259462, 4068587, 1645016, 95386580 ####[place] [address] RBC Auto #/vol (Bld) 4.5 E12/L Normal 4.3-5.9 [facility] Comment on above: Performed By: #### 2 686608, 7862998, 5888780, 7856928, 9456848, 1238574, 22716894 ####[address] [place] [address] WBC corrected for nucl RBC Auto #/vol (Bld) 7.4 E9/L Normal 4.0-11.0 [facility] Comment on above: Performed By: #### 2 766240, 1621124, 7537456, 6270141, 1765895, 3574066, 51411583 ####[facility] [address] [place] [address] CT Abdomen/Pelvis w/ Contras ton 10-05-2017 CT [...] Isovue 300Contrast amount in ml's: 100 Normal [facility] ED Clinical Summaryon 2017 ED Clinical Summary [place] [address] ED Clinical SummaryPerson Information Name: SKIP HONG/DorianNati Age: 62 Years : 1955 12:00 AM Sex: Female Language:Martiniquais PCP: Anitha Ramey MD Marital Status: Visit [...] PM 10/05/2017 1:10 PM 10/05/2017 1:10 PM ADDRESS:[address] [place] [id number] PHYS DOC NOTES: MEDICAL INFORMATION: Prescriptions Given:Prescription Display polyethylene glycol 3350 (Miralax 3350 17 gram packet) 17 gram, Oral, Daily, # 170 gram, Refills(s) 0 PATIENT EDUCATION INFORMATION: Instructions:Constipation, Adult; Abdominal Pain, Adult Follow up:With: Address: When: [facility], [address], [place] [address] Business (1) In 3 days 10/08/2017 DIAGNOSIS:Abdominal pain; Constipation Normal [facility] ED Note-Physicianon 10-06-19 ED Note-Physician Basic Information Ti me Seen: [...] fever or chills. She is also on [place] and Zanaflex without improvement. No other prior [...] Luli Roy In 3 days 10/08/2017 EDT [facility] [address] [place] [address]- Business (1) Additional Instructions: Patient Education Constipation, Adult Abdominal Pain, AdultAttestation Patient seen and evaluated by the physician ex assistant/program director. Attending physician was present in the emergency department and supervised care. This report was transcribed using voice recognition software. Every effort was made to ensure accuracy, however, inadvertently computerized manager grocery mistakes may be present.Problem List/Past Medical History [...] 08:50:00) Lymph Auto: 19.8 % (10/05/17 08:50:00) Davie Auto: 11.5 % (10/05/17 08:50:00) Eos Auto: 1.3 % (10/05/17 08:50:00) Basophil Auto: 0.4 % (10/05/17 08:50:00) Neutro Absolute: 4.9 E9/L (10/05/17 08:50:00) Lymph Absolute: 1.5 E9/L (10/05/17 08:50:00) Davie Absolute: 0.9 E9/L (10/05/17 08:50:00) Eos Absolute: [...] 100 Signed By: Andrea Barajas MD Normal [facility] Comment on above: Result Comment: Elec tronically Signed By: Cas Lam PA-C\.br\Date and Time Signed: 10/05/17 12:14 EDT\.br\Electronically Co-Signed By: Iain Salcido DO\.br\Date and Time Co-Signed: 10/05/17 12:20 EDT ED Patient Summaryon 018 ED Patient Summary [address] [address] Patient Discharge Instructions Person Information Name: SKIP HONG Age: 62 Years Date: 10/05/2017 8:17 AMDischarge Diagnosis: Abdominal pain; Constipation Primary Care Physician: Anitha Ramey MD Provider InformationPrimary Provider: Sandy Salcido DO Assistant Account Executive:Cas Lam PA-C The exam and treatment you received in the Emergency Department were for an urgent problem and are not intended as complete care. It is important that you follow up with a doctor, nurse practitioner, or physician?s ex assistant/program director for ongoing care. If your symptoms become worse or you do not improve as expected and you are unable to reach your usual health care provider, you should return to the Emergency Department. We are available 24 hours a day. SKIP HONG has been given the following list of patient education materials, prescriptions and follow-up instructions: Follow-up Instructions:With: Address: When: [facility], [address] [address] Business (1) In 3 days 10/08/2017 In the event that this physician does not participate in your insurance network, please consult with your insurance company to find a nearby participating provider. Patient Education Materials:Constipation, Adult; Abdominal Pain, Adult A MESSAGE TO ALL PATIENTS REGARDING OPIOIDS PRESCRIPTION OPIOIDS: WHAT YOU NEED TO KNOW Prescription opioids can be used to help relieve saacmjwf-ci-ypglhe pain and are often prescribed following a [...] be struggling with addiction, tell your health child care provider and ask for guidance or call [facility]?S National Helpline at 9-477-670-MWOQ. t Source: [place] Department of Health and Human Services/Center for Disease Control & Prevention [facility] Medications Given:Medication Dose Route Sodium [...] needed for pain.Comment: Pharmacy Information: [facility] Patient Education Materials: ConstipationConstipation is when a [...] your health care provider may recommend taking xtdg-bpf-pfsqtmr laxative medicines to help you have bowel movements. Prescription medicines may be prescribed if sbre-esu-dazypux medicines do not work. HOME CARE INSTRUCTIONS? Eat foods that have a lot of fiber, such as fruits, vegetables, whole grains, and beans.? Limit foods high in fat and processed sugars, such as northern irish fries, hamburgers, cookies, candies, and soda. ?? [...] Do not hold it. ?? Only take pesg-nlv-vxlbhna or prescription medicines as directed by your [...] 06/06/2014 Document Reviewed: 03/13/2014ExitCare? Patient Information ?2015 Phase III Development. This information is not intended to replace [...] any discomfort you are experiencing:? Only take rhxv-jrm-onpuimg or prescription medicines as directed by your [...] 06/06/2014 Document Reviewed: 02/08/2014ExitCare? Patient Information ?[address] [facility]. This information is not intended to replace advice given to you by your health care provider. Make sure you discuss any questions you have with your health care provider.ABDIAS Carpio JEAN M , have received the following patient education materials/instructions and have verbalized understanding: Patient Education Materials: Constipation, Adult; Abdominal Pain, Adult Follow-up Instructions: With: Address: When: [facility], [address] [place] [address] Business (1) In 3 days 10/08/2017 Prescriptions: [polyethylene glycol 3350 (Miralax 3350 17 gram packet)] Patient Signature Date Clinician/Nurse Signature Date 10/05/17 13:10:13 Normal [facility] Hep Func Panelon 10-05-2017 Bilirubin.indirec t [Mass or Moles/volume] in Serum or Plasma UTC Abnormal 0.1-0.9 [facility] Comment on above: Result Comment: Resu lt verified by Discern Rule. Performed result UTC (Unable to Calculate) was sent as an Alpha code due the inability to calculate a valid numeric value. Performed By: #### 2 391497, 0334034, 5840636, 1228729, 3045875, 5237156, 15528709 ####[facility] [address] [place] [address] Albumin mass conc 3.9 g/dL Normal 3.3-5.0 [facility] Comment on above: Performed By: #### 2 762777, 1248475, 0423379, 9327465, 8126764, 1624733, 59367358 ####[facility] [address] [place] [address] Albumin mass conc 1.4 g/dL Normal 1.1-2.2 [facility] Comment on above: Performed By: #### 2 536896, 6919853, 2709301, 8965349, 6403998, 7330496, 83726759 ####[facility] [address] [place] [address] ALP enzyme act/vol 72 Int._Unit/L Normal 21-98 [facility] Comment on above: Performed By: #### 2 476398, 7870974, 9851087, 4728299, 4104181, 5276778, [id number] ####[facility] [address] [place] [address] ALT No additional P-5'-P enzyme act/vol 25 Int._Unit/L Normal 6-46 [facility] Comment on above: Performed By: #### 2 210860, 1637990, 7876630, 5569294, 8272018, 7872645, 72056264 ####[facility] [address] [place] [address] AST enzyme act/vol 28 Int._Unit/L Normal 5-43 [facility] Comment on above: Performed By: #### 2 254800, 0786838, 1969179, 1167307, 8616799, 7983357, 27182598 ####[facility] [address] [place] [address] Bilirubin mass conc 0.3 mg/dL Normal 0.0-1.1 [facility] Comment on above: Performed By: #### 2 159066, 6860193, 8831930, 0976335, 9180780, 1852218, 58511288 ####[address] [address] Bilirubin.direct mass conc mg/dL Normal 0.1-0.4 [facility] Comment on above: Performed By: #### 2 828585, 3578553, 2977911, 8066193, 2966682, 9040038, 73432987 ####[address] [address] Globulin Calculated mass conc (S) 2.7 g/dL Normal 1.4-4.0 [facility] Comment on above: Performed By: #### 2 386311, 7763138, 9169155, 0976484, 6776848, 9861268, 91916816 ####[facility] [address] [place] [address] Protein mass conc 6.6 g/dL Normal 6.0-7.8 [facility] Comment on above: Performed By: #### 2 793885, 8099052, 4296506, 9854492, 6413478, 8930999, 26811984 ####[facility] [address] [place] [address] Lactic Acidon 10-05-2017 Lactate mass conc 13.2 mg/dL Normal 4.5-19.8 [facility] Comment on above: Performed By: #### 2 044471, 0091979, 7561520, 5522412, 3462450, 3128823, 81945893 ####[facility] [address] [place] [address] Lipase Levelon 10-05-2017 Lipase enzyme act/vol 18 unit/L Normal 13-58 [facility] Comment on above: Performed By: #### 2 047051, 0531854, 6777972, 5482889, 0019478, 6856360, 14605991 ####[facility] [address] [place] [address] UA With Cult Reflexon 2017 Bilirubin Ql (U) Negative Normal Negative [facility] Comment on above: Performed By: #### 1 [id number] ####[address] [address] Clarity Nom (U) CLEAR Normal Clear [facility] Comment on above: Performed By: #### 1 9036312 ####[address] [address] Color Auto Nom (U) YELLOW Normal Yellow [facility] Comment on above: Performed By: #### 1 [id number] ####[address] [address] Epithelial cells.squamous LM.HPF #/area (Urine sed) 0-2 Normal 0-2 [facility] Comment on above: Performed By: #### 1 0860713 ####[address] [address] Glucose Test strip mass conc (U) Negative Normal Negative [facility] Comment on above: Performed By: #### 1 6023913 ####[address] [address] Hemoglobin Test strip Ql (U) Negative Normal Negative [facility] Comment on above: Performed By: #### 1 1570129 ####[facility] [address] [place] [address] Ketones mass conc (U) Negative Normal Negative [facility] Comment on above: Performed By: #### 1 1905166 ####[facility] [address] [place] [address] Alger.plasma/Li thium.RBC mass ratio (Bld) 0-3 Normal 0-3 [facility] Comment on above: Performed By: #### 1 4991016 ####[facility] [address] [place] [address] Nitrite Test strip Ql (U) Negative Normal Negative [facility] Comment on above: Performed By: #### 1 6807542 ####[address] [address] pH Test strip (U) 7.5 [pH] Invalid Interpretation Code 5.0-9.0 [facility] Comment on above: Performed By: #### 1 0777371 ####[facility] [address] [place] [address] Protein mass conc (U) Negative Normal Negative [facility] Comment on above: Performed By: #### 1 2351057 ####[address] [address] Specific gravity Relative Density (U) 1.010 Invalid Interpretation Code 1.005-1.03 0 [facility] Comment on above: Performed By: #### 1 3133153 ####[facility] [address] [place] [address] UA Spec Desc Clean Catch Normal [facility] Comment on above: Performed By: #### 1 4927000 ####[facility] [address] [place] [address] Urobilinogen Test strip Qn (U) 0.2 {Antonina'U}/dL Normal 0.0-1.0 [facility] Comment on above: Performed By: #### 1 1833798 ####[facility] [address] [place] [address] WBC Auto Ql (U) Negative Normal Negative [facility] Comment on above: Performed By: #### 1 5280754 ####[facility] [address] [place] [address] WBC LM.HPF #/area (Urine sed) 0-5 Normal 0-5 [facility] Comment on above: Performed By: #### 1 9320727 ####[facility] [address] [place] [address] eGFRon 10-05-2017 GFR/1.73 sq M predicted among blacks MDRD vol rate/area (S/P/Bld) mL/min/{1.73_m2} Normal >=59 [facility] Comment on above: Order Comment: Order added by Discern Expert. Result Comment: eGFR is race adjusted. AA=. Performed By: #### 2 322641, 5199508, 1335724, 8985142, 4275671, 1161114, 08243825 ####[facility] [address] [place] [address] GFR/1.73 sq M predicted among non-blacks MDRD vol rate/area (S/P/Bld) mL/min/{1.73_m2} Normal >=59 [facility] Comment on above: Order Comment: Order added by Discern Expert. Result Comment: Brick Tender seng kidney disease could be indicated at eGFR's of less than 60 mL/min/1.73m2. Kidney failure is indicated at less than 15 mL/min/1.73m2. Performed By: #### 2 059092, 1354451, 8940923, 9825802, 0961411, 8372066, 64164262 ####[facility] [address] [place] [address] Vital Signs Date Time Vital Sign Value Performing Clinician Siobhan escalante 05-27-2022 15:00-0500 Body height 160.02 cm Prasad Isabel Other [facility] Other 05-27-2022 15:00-0500 Body mass index (BMI) [Ratio] 23.56 kg/m2 Prasad Isabel Other [facility] Other 05-27-2022 15:00-0500 Body weight 60.33 kg Prasad Isabel Other [facility] Other Encounters Encounter Date Encounter Type Care Provider Facility Start: 11-02-2023 End: 11-02-2023 ambulatory JASVIR BENJAMINLESLIE Not Available Start: 10-08-2023 End: 10-08-2023 ambulatory MIGUEL ÁNGEL HER Not Available Start: 07-27-2023 End: 07-27-2023 ambulatory CINDY AGUILAR Not Available Start: 07-27-2023 Bamboo flowsheet Cindy Naik hler DO Work Phone: [facility] Start: 07-27-2023 Bamboo flowsheet Cindy Naik hler DO Work Phone: [facility] Start: 07-01-2022 End: 07-02-[address] ANITHA RAMEY Facility:[facility] Start: 06-23-2022 End: 06-23-2022 ambulatory ANITHA RAMEY Facility:[facility] Start: 06-23-2022 End: 06-23-2022 ambulatory Benjamin Moore PA-C Work Phone: [facility] [place] Comment on above: Fibromyalgia (Primar y Dx); Cervicalgia Start: 06-23-2022 End: 06-23-2022 Telemedicine consultation with patient Benjaminazra LimChris PA-C Work Phone: [facility] Start: 06-17-2022 End: 06-17-[address] JULIANN ROGER Facility:[facility] Start: 06-03-2022 End: 06-03-2022 ambulatory Bentley Bragg Other [facility] Other Start: 06-03-2022 Chart abstracting Unk (Historical) N eurology Start: 06-03-2022 Telephone encounter Bentley Yemi [facility] Start: 05-27-2022 End: 05-27-2022 ambulatory Prasad Isabel Other [facility] Other Start: 05-27-2022 Office outpatient ne w 30 minutes Prasad Isabel [facility] Neurosurgery Start: 05-20-2022 End: 05-21-2022 ambulatory [...] End: 07-06-2018 Patient encounter procedure Kings Thomson Facility:[facility] Start: 04-15-2018 End: 04-16-2018 Patient encounter procedure Rockwell Salam [facility] Start: 04-12-2018 End: 04-13-2018 Patient encounter procedure Rockwell Salam Facility[facility] Start: 04-07-2018 End: 04-08-2018 Patient encounter procedure Rockwell Salam Facility[facility] Start: 11-05-2017 End: 11-06-2017 Patient encounter procedure Rockwell Salam Facility:[facility] Start: 10-07-2017 End: 10-08-2017 Patient encounter procedure Rockwell Salam Facility:[facility] Start: 10-06-2017 End: 10-07-2017 Emergency department patient visit Anitha~[id number] UNKNOWN sabrina Facility:[facility] Start: 10-05-2017 End: 10-05-2017 Emergency department patient visit Anitha~[id number] UNKNOWN Hoy Facility:[facility] Procedures Date Procedure Procedure Detail Performing Clinician Start: 07-27-2023 End: 07-27-2023 Ophth medical xm&eval compre new pt 1/> vst Age-related nuclear cataract of both eyes Cindy Aguilar DO Work Phone: Comment on above: Age-related nuclear cataract of both eyes (Primary Dx) Start: 03-26-2022 Mammography Cindy cullen DO Work Phone: Plan of Treatment Date Care Activity Detail Author Start: 01-11-2024 End: 01-11-2024 Patient encounter procedure 01/11/2024 1:15 PM EDT Office Visit [facility] [address] [place] [phone] Cindy Aguilar DO [address] [place] [address] [facility] Start: 07-27-2023 End: 07-27-2023 Patient encounter procedure 07/27/2023 2:15 PM EST Office Visit [facility] [address] [place] [phone] Cindy Aguilar DO [address] [place] [address] Arrived [facility] Comment on above: Arrived Start: 03-26-2023 Screening for malign ant neoplasm of breast Mammogram [facility] Start: 02-13-2023 Influenza vaccination Influenza Vacc ine (#1) [facility] Start: 06-15-2022 ADVANCE DIRECTIVE DISCUSSION ADVANCE DIRECTIVE DISCUSSION [facility] Start: 06-15-2022 DEPRESSION ASSESSMENT DEPRESSION ASS ESSMENT [facility] Start: 02-13-2022 Influenza vaccination INFLUENZA (#1) [facility] Start: 12-08-2021 COVID-19 VACCINE (5 - Booster for Moderna series) COVID-19 VACCINE (5 - Booster for Moderna series) [facility] Start: 06-15-2021 ADVANCE DIRECTIVE DISCUSSION ADVANCE DIRECTIVE DISCUSSION [facility] Start: 06-15-2021 DEPRESSION ASSESSMENT DEPRESSION ASS ESSMENT [facility] Start: 01-11-2021 BONE DENSITY BONE DENSITY [facility] Start: 01-11-2021 Pneumococcal Vaccine : 65+ Years (1 - PCV) Pneumococcal Vaccine: 65+ Years (1 - PCV) [facility] Start: 01-11-2021 PNEUMOCOCCAL: 65+ (1 - PCV) PNEUMOCOCCAL: 65+ (1 - PCV) [facility] Start: 09-20-2012 DIABETES SCREEN DIABETES SCREEN [facility] Start: 01-11-2006 SHINGRIX VACCINE (1 of 2) SHINGRIX V ACCINE (1 of 2) [facility] Start: 01-11-2001 COLOGUARD (FIT-DNA) COLOGUARD (FIT-D NA) [facility] Start: 01-11-2001 Colonoscopy COLONOSCOPY [facility] Start: 01-11-2001 COLORECTAL CANCER SCREENING COLORECTAL CANCER SCREENING [facility] Start: 01-11-[address] COLONOGRAPHY [facility] Start: 01-11-2001 FECAL OCCULT BLOOD FECAL OCCULT BLOO D [facility] Start: 01-11-2001 LIPID SCREEN LIPID SCREEN [facility] Start: 01-11-2001 SIGMOIDOSCOPY SIGMOIDOSCOPY [facility] Start: 1996 Mammography MAMMOGRAM [facility] Start: 01-11-1975 Urine microalbumin profile DTAP,TDAP,TD (1 - Tdap) [facility] Start: 01-11-1974 HEPATITIS C SCREENING HEPATITIS C SC REENING [facility] Start: 1956 COVID-19 VACCINE (#1) COVID-19 VACCI NE (#1) [facility] Start: 1955 Screening for malign ant neoplasm of colon [facility] Immunizations Immunization Date Immunization Notes Care Provider Fa sunita 04-09-2022 influenza virus vacc ine, unspecified formulation Cindy Aguilar DO Work Phone: [facility] Payers Date Payer Category Payer Medicare ANTHEM MEDICARE ADVANTAGE ANTHEM MEDICARE ADVANTAGE [id number] 2023-Present [address] [place] [address] [id number] 2021 Unknown ANTHEM BLUE CROS S AND BLUE SHIELD ANTHEM MEDIBLUE HMO [id number] 2021-Present [phone] [address] [place] [address] HMO [id number] 2018 Self-pay 2017 Unknown [id number] 1959 Unknown [id number] 1956 Unknown [id number] 2.16.840.1.961825.3.579.2.72 7 1956 Unknown [id number] 2.16.840.1.005340.3.579.2.72 7 1956 Unknown [id number] 2.16.840.1.579158.3.579.2.72 7 1956 Unknown [id number] 2.16.840.1.745125.3.579.2.72 7 1956 Unknown [id number] 2.16.840.1.399346.3.579.2.59 3 1956 Unknown [id number] 2.16.840.1.532861.3.579.2.59 3 1956 Unknown [id number] 2.16.840.1.285816.3.579.2.59 3 1956 Unknown [id number] 2.16.840.1.412465.3.579.2.59 3 1956 Unknown [id number] 2.16.840.1.702928.3.579.2.59 3 1956 Unknown [id number] 2.16.840.1.095998.3.579.2.59 3 1956 Unknown [id number] 2.16.840.1.261799.3.579.2.59 3 1956 Unknown [id number] 2.16.840.1.535630.3.579.2.59 3 1956 Unknown [id number] 2.16.840.1.943909.3.579.2.59 3 1956 Unknown [id number] 2.16.840.1.959078.3.579.2.59 3 1956 Unknown [id number] 2.16.840.1.601846.3.579.2.59 3 1956 Unknown [id number] 2.16.840.1.769568.3.579.2.59 3 1956 Unknown [id number] 2.16.840.1.999629.3.579.2.59 3 1956 Unknown [id number] 2.16.840.1.494227.3.579.2.12 59 1956 Unknown [id number] 2.16.840.1.710739.3.579.2.12 59 1956 Unknown [id number] 2.16.840.1.151687.3.579.2.12 59 Unknown [id number] 2.16.840.1.100238.3.579.2.53 1 Social History Date Type Detail Facility Start: 04-10-2011 End: 07-27-2023 Tobacco smoking status CTIS Never smoked tobacco [facility] Start: 04-10-2011 End: 07-27-2023 Tobacco use and exposure Smokeless tobacco non-user [facility] Start: 05-13-2018 Alcohol intake Current non-dr cabral of alcohol (finding) [facility] Start: 1955 Sex Assigned At Not on file C [facility] Sex Assigned At [facility] Other Tobacco smoking status CTIS Tobacco smoking consumption unknown [facility] Clinical Notes 05-27-2022 to 07-27-2023 Cindy Aguilar DO - 07/27/2023 2:15 PM Jacklyn Moore PA-C - 06/23/2022 7:27 AM Jonelle Vasquez APRN.RACING SECRETARY - 06/04/2022 11:10 AM Lokeshnafisa ParekhSimran, Research Coordinator - 06/03/2022 1:17 PM EST [...] different lens options were explained including the eov-mb-hrabym fees for any upgrades. Intraocular lens (IOL) [...] (RGP) lenses occurred. documented in this encounter [facility] 06-23-2022 Note HNO ID: [id number] Author: Benjamin Moore PA-C Service: ? Author Type: Physician General Freight Agent Type: Progress Notes Filed: 06/23/2022 7:54 AM Note Text: AMBULATORY TELEPHONE VISIT Skip Hong has consented to this telephone encounter. Patient was unable to connect to [employer] Virtual Visit - call to patient to [...] Time Spent: 45 minutes Benjamin Moore PA-C [facility] 06-23-2022 History of Present illness Narrative AMBULATORY TELEPHONE VISIT Skip Hong has consented to this telephone encounter. Patient was unable to connect to [employer] Virtual Visit - call to patient to [...] Benjamin Moore PA-C documented in this encounter [facility] 06-04-2022 Note HNO ID: [id number] Author: Sangeetha Vasquez APRN.RACING SECRETARY Service: ? Author Type: Nurse Practitioner Type: [...] person or virtual visit whatever patient preference. [facility] 06-04-2022 History of Present illness Narrative [...] Health Provider or Pain Management Provider at [facility]? No If answer is YES please schedule [...] facility where the MRI/CT/myelogram was completed: [facility] [address] [place] [address] MRI/CT/myelogram viewable in Epic: No If not, please provide [phone] to fax in imaging reports for review. Also, please inform patient to hand carry imaging disc to appointment. XR (spine) within 12 months: Yes If YES, please ask for the name/address of the facility where the XR was completed: [facility] [address] [place] [address] Dr. Suero's patients: Have you had previous [...] injections and/or physical therapy was completed Injections: [facility] [address] [place] [address] PT: unable to recall facility Have you [...] where the surgery was completed: Additional Comments [phone] documented in this encounter [facility] 06-03-2022 Note HNO ID: [id number] Author: Celeste Khalil Research Coordinator Service: ? Author Type: Research Type: Progress Notes Filed: 06/04/2022 11:31 AM Note Text: Patient name: Skip Hong Are you being referred by a [facility] Provider or Pain Management Provider at [facility]? No If answer is YES please schedule [...] facility where the MRI/CT/myelogram was [place]: [place] [address] MRI/CT/myelogram viewable in Epic: No If not, please provide [phone] to fax in imaging reports for review. Also, please inform patient to hand carry imaging disc to appointment. XR (spine) within 12 months: Yes If YES,? please ask for the name/address of the facility where the XR was completed: [place] [address] Dr. Suero's patients: Have you had previous [...] injections and/or physical therapy was completed Injections: [facility] [address] [place] [address] PT: unable to recall facility Have you [...] where the surgery was completed: Additional Comments [phone] [facility] 05-27-2022 Evaluation note Encounter Date Diagnosis [...] and agrees. A referral will be sent [facility] Other evaluation note* Diagnosis Fibromyalgia- Primary Mylagia and myositis, unspecified Cervicalgia [facility] note[facility] InformationNoVaunte Other Evaluation note* Diagnosis Age-related nuclear cataract [...] History arthroscopy shoulder Hospitalization History see above [facility] Other reason for visit NarrativeReferral update - pain mangementNoMercora Other Summary Purpose Family History No Family [...] Diagnosis 1 Neck pain (M54.2) Referral Organization [email or web address] Ne urosurgery Referring Provider First Name Prasad Referring Provider Last Name Maame Referring Provider Specialty Neurologica l Surgery Referred Organization [facility] Pain Managemen t Referred Provider Bentley Bragg Referred Address [address] ,[facility] [address] ,[place], [place],[address] Referred Provider Specialty Pain Medicin e Referral Priority Routine General Notes Jenifer Ramírez 022 08:31:51 AM >Received today and sent P2P Esthela Navarro 06/03/2022 02:35:54 PM >fyi patient declined seeing Dr Bragg, she stated she has returned to her previous PM provider in [place] Jenifer Ramírez 06/03/2022 02:59:27 PM >OK, thank you for the update. Telephone encounter was sent Additional Source Comments INFORMATION SOURCE (unrecogn ized section and content) DATE CREATED AUTHOR 05/22/2018 [place] [facility] DATE CREATED AUTHOR AUTHOR'S ORGANIZ ATION 07/22/2018 [facility] DATE CREATED AUTHOR AUTHOR'S ORGANIZ ATION 06/23/2022 [facility] DATE CREATED AUTHOR AUTHOR'S ORGANIZ ATION 07/02/2022 [facility] DATE CREATED AUTHOR AUTHOR'S ORGANIZ ATION 11/03/2023 [facility] EPIC Source Comments (unrecognize d section and content) In the event this informatio n is protected by the Federal Confidentiality of Alcohol and Drug Abuse Patient Records regulations: The Federal rules restrict any use of the information to criminally investigate or prosecute any alcohol or drug abuse patient.[facility] the event this information is protected by the Federal Confidentiality of Alcohol and Drug Abuse Patient Records regulations: The Federal rules restrict any use of the information to criminally investigate or prosecute any alcohol or drug abuse patient.[facility] Care Teams (unrecognized sec tion and content) Press Tender Relationship Specialty Start Date End Date Anitha Ramey MD [address] [place], [place] [phone] PCP - General 09/07/09 Luli Roy (Hist), [address] [facility], [place] [id number] Referring Gastroenterology 05/04/18 Press Tender Relationship Specialty Start Date End Date Anitha Ramey MD [address] [facility], [place] [phone] PCP - General 09/07/09 Luli Roy (Hist), [address] [place] [address] Referring Gastroenterology 05/04/18 Press Tender Relationship Specialty Start Date End Date Anitha Ramey MD [address] [place] [address] PCP - General Family Medicine 07/27/23 Reason [...] BE BASED ON THE PRIMARY CLINICAL RECORDS. [facility]. provides no warranty or guarantee of the accuracy or completeness of information in this document.
[2023-11-05 18:11] VITALS: BP 144/79; PULSE 67; TEMP 36.6; O2SAT 98; BMI 24.1
[2023-11-05 18:33] LABS: Basophils Absolute Auto 0.1 10^3/uL (0.0-0.1); Basophils Percent Auto 0.6 % (0.2-2.0); Eosinophils Absolute Auto 0.1 10^3/uL (0.0-0.7); Eosinophils Percent Auto 1.2 % (0.9-7.0); Hematocrit 39.9 % (36.0-48.0); Hemoglobin 13.3 g/dL (12.0-16.0); Immature Granulocytes Abs Auto 0.03 10^3/uL (0.00-0.03); Immature Granulocytes Pct Auto 0.3 % (0.0-0.5); Lymphocytes Absolute Auto 2.8 10^3/uL (1.2-3.8); Lymphocytes Percent Auto 32.8 % (20.5-60.0); Mean Corpuscular HGB Conc 33.3 g/dL (29.9-35.2); Mean Corpuscular Hemoglobin 30.2 pg (26.7-34.0); Mean Corpuscular Volume 90.7 fL (81.0-99.0); Mean Platelet Volume 9.9 fL (9.5-13.5); Monocytes Absolute Auto 0.8 10^3/uL (0.3-0.8); Monocytes Percent Auto 8.9 % (1.7-12.0); Neutrophils Absolute Auto 4.9 10^3/uL (1.4-6.5); Neutrophils Percent Auto 56.2 % (43.0-75.0); Platelet Count 268 10^3/uL (150-450); White Blood Count 8.7 10^3/uL (4.0-11.0)
[2023-11-05 18:38] LABS: Erythrocyte Sedimentation Rate 31 mm/hr (<=30)
[2023-11-05 18:50] LABS: Ammonia 19 umol/L (11-32)
[2023-11-05 19:30] LABS: Alanine Aminotransferase 26 U/L (14-59); Albumin Globulin Ratio 1.1; Albumin Level 3.7 g/dL (3.4-5.0); Alkaline Phosphatase 106 U/L (46-116); Anion Gap 15.7; Aspartate Amino Transferase 16 U/L (15-37); BUN Creatinine Ratio 18.6; Bilirubin Total 0.3 mg/dL (0.2-1.0); C Reactive Protein <0.50 mg/dL (<=0.50); Calcium 9.6 mg/dL (8.5-10.1); Carbon Dioxide 21.1 mmol/L (21.0-32.0); Chloride 106 mmol/L (98-107); Estimated GFR (African America >60 (>=60); Estimated GFR (Non-African Ame 57 (>=60); Globulin 3.3 g/dL; Glucose 101 mg/dL (74-106); Potassium 3.8 mmol/L (3.5-5.1); Sodium 139 mmol/L (136-145)
[2023-11-05 19:31] LABS: C Reactive Protein <0.50 mg/dL (<=0.50); Lactate/Lactic Acid 1.3 mmol/L (0.4-2.0); Troponin I High Sensitivity <4.0 pg/mL (4.0-51.3)
[2023-11-05 19:37] VITALS: O2SAT 100
[2023-11-05 19:46] VITALS: BP 109/68; BP 125/82; BP 130/80; PULSE 63; PULSE 67; PULSE 71
[2023-11-05] MEDS: ACETAMINOPHEN 500 MG TABLET 1000 MG PO (19:57)
[2023-11-05] MEDS: 0.9 % SODIUM CHLORIDE 1,000 ML 1000 ML IV (20:52)
[2023-11-05] MEDS: DEXAMETHASONE SOD PHOS 4 MG/ML VIAL 10 MG IV (21:01)
[2023-11-05] MEDS: PANTOPRAZOLE SODIUM 40 MG VIAL IV (21:38)
[2023-11-05] MEDS: GABAPENTIN 100 MG CAPSULE PO (21:38)
[2023-11-05] MEDS: LACTATED RINGER'S SOLUTION 1,000 ML 100 ML IV (22:13)
[2023-11-05 23:54] VITALS: BP 128/72; PULSE 55; TEMP 36.8; O2SAT 98
[2023-11-06 04:21] VITALS: BP 125/69; PULSE 54; TEMP 36.3; O2SAT 96
[2023-11-06 05:37] LABS: Basophils Percent Auto 0.1 % (0.2-2.0); Eosinophils Percent Auto 0.1 % (0.9-7.0); Hematocrit 37.8 % (36.0-48.0); Hemoglobin 11.9 g/dL (12.0-16.0); Immature Granulocytes Abs Auto 0.03 10^3/uL (0.00-0.03); Immature Granulocytes Pct Auto 0.4 % (0.0-0.5); Lymphocytes Absolute Auto 0.9 10^3/uL (1.2-3.8); Lymphocytes Percent Auto 11.5 % (20.5-60.0); Mean Corpuscular HGB Conc 31.5 g/dL (29.9-35.2); Mean Corpuscular Hemoglobin 29.8 pg (26.7-34.0); Mean Corpuscular Volume 94.5 fL (81.0-99.0); Mean Platelet Volume 9.5 fL (9.5-13.5); Monocytes Absolute Auto 0.2 10^3/uL (0.3-0.8); Monocytes Percent Auto 2.3 % (1.7-12.0); Neutrophils Absolute Auto 6.8 10^3/uL (1.4-6.5); Neutrophils Percent Auto 85.6 % (43.0-75.0); Platelet Count 297 10^3/uL (150-450)
[2023-11-06 05:58] LABS: Alanine Aminotransferase 23 U/L (14-59); Albumin Level 3.1 g/dL (3.4-5.0); Alkaline Phosphatase 98 U/L (46-116); Anion Gap 12.2; Aspartate Amino Transferase 15 U/L (15-37); BUN Creatinine Ratio 15.8; Bilirubin Total 0.2 mg/dL (0.2-1.0); C Reactive Protein <0.50 mg/dL (<=0.50); Calcium 8.7 mg/dL (8.5-10.1); Carbon Dioxide 24.1 mmol/L (21.0-32.0); Chloride 106 mmol/L (98-107); Estimated GFR (African America >60 (>=60); Estimated GFR (Non-African Ame 59 (>=60); Free T3 1.89 pg/mL (2.18-3.98); Globulin 3.2 g/dL; Glucose 174 mg/dL (74-106); Potassium 4.3 mmol/L (3.5-5.1); Sodium 138 mmol/L (136-145); Thyroid Stimulating Hormone 0.488 uIU/mL (0.358-3.740); Total Protein 6.3 g/dL (6.4-8.2)
[2023-11-06] MEDS: LACTATED RINGER'S SOLUTION 1,000 ML 100 ML IV (07:38)
[2023-11-06 07:41] VITALS: BP 144/72; PULSE 53; TEMP 36.3; O2SAT 98
[2023-11-06 08:01] LABS: Bilirubin Urine NEGATIVE (NEGATIVE); Blood Urine NEGATIVE (NEGATIVE); Clarity Urine CLEAR (CLEAR); Color Urine LT. YELLOW (YELLOW); Glucose Urine UA NEGATIVE (NEGATIVE); Ketones Urine NEGATIVE (NEGATIVE); Leukocyte Esterase Urine NEGATIVE (NEGATIVE); Nitrite Urine NEGATIVE (NEGATIVE); Protein Urine NEGATIVE (NEG/TRACE); Specific Gravity Urine <=1.005 (1.005-1.025); Urobilinogen Urine 0.2 EU/dL (0.2-1.0)
[2023-11-06 08:17] LABS: RBC Urine NONE SEEN #/HPF (0-2); WBC Urine NONE SEEN #/HPF (NONE SEEN)
[2023-11-06 08:18] LABS: Bacteria Urine NONE SEEN #/HPF (NONE SEEN); Mucus Urine NONE SEEN (NONE SEEN)
[2023-11-06 08:21] LABS: Squamous Epithelial Cell Urine RARE #/LPF (NONE/RARE)
[2023-11-06 08:22] LABS: Urine Culture Indicated ALREADY ORDERED
--- NOTE | 2023-11-06 08:31 | CM.NOTE ---
Rounds made with Dr. Mcgregor, discussed with pt discharge to home today. No discharge needs identified.
--- NOTE | 2023-11-06 08:34 | P.DS_ITS ---
DS: Providers Provider Date of admission: 11/05/23 17:22 Primary care physician: Min Mcgregor MD Consults: 11/05/23 17:47 Consult to Pharmacy Routine Consulting Provider: Reason for consultation: Please [place] me when Med Rec is Updated Has provider been notified: No Occupational Therapy Eval and Treat Routine Reason for consultation: Only if needed for Rehab Has provider been notified: No Physical Therapy Eval and Treat Routine Reason for consultation: Eval and Treat Has provider been notified: No DS: Diagnosis Discharge Diagnosis (1) Dehydration: DS: Summary Hospital Course Hospital Course: Patient was seen and evaluated in the office, felt to have dehydration. Given IV fluids and 1 dose of IV Decadron secondary to recurrent urticaria. She did not have any urticaria on initial presentation. This is just been a recurrent thing at home so tried 1 dose of IV Decadron. This morning she does feel somewhat improved. The plan is to have her eat breakfast and ambulate. If she is stable after that she can be discharged home in improving condition. Medication status. Follow-up with me in the office within the next week. Time Spent with Patient Time attestation: Total time spent providing and/or coordinating discharge services: Exam Constitutional Vital Signs, click to edit/add: Last Vital Signs Temp 97.4 F L 11/06/23 07:41 Pulse 53 L 11/06/23 07:41 Resp 18 11/06/23 07:41 BP 144/72 H 11/06/23 07:41 Pulse Ox 98 11/06/23 07:41 O2 Del Method Room Air 11/06/23 07:41 Documenting provider has reviewed patient's vital signs: yes Common normals: apparent distress (Seems uncomfortable from a generalized myalgia standpoint and fatigue) Exam limitations: no altered mental status Respiratory Common normals: normal respiratory effort Cardio Common normals: regular rate and regular rhythm GI Common normals: Normal to inspection, nondistended, normoactive bowel sounds present, soft to palpation and non-tender Extremity Common normals: full ROM and normal capillary refill DS: Data Data Completed and Pending Labs on day of discharge: Labs from last 24 hours 11/06/23 11/05/23 11/05/23 04:50 18:45 18:45 WBC 8.0 RBC 4.00 L Hgb 11.9 L Hct 37.8 MCV 94.5 MCH 29.8 MCHC 31.5 RDW 13.0 Plt Count 297 MPV 9.5 Neut % (Auto) 85.6 H Lymph % (Auto) 11.5 L [place] % (Auto) 2.3 Eos % (Auto) 0.1 L Baso % (Auto) 0.1 L Neut # (Auto) 6.8 H Lymph # (Auto) 0.9 L [place] # (Auto) 0.2 L Eos # (Auto) 0.0 Baso # (Auto) 0.0 Abs Immat Gran (auto) 0.03 Imm/Tot Granulo (auto) 0.4 ESR Sodium 138 139 Potassium 4.3 3.8 Chloride 106 106 Carbon Dioxide 24.1 21.1 Anion Gap 12.2 15.7 BUN 15.0 18.0 Creatinine 0.95 0.97 Est GFR ( Amer) >60 >60 Est GFR (Non-Af Amer) 59 L 57 L BUN/Creatinine Ratio 15.8 18.6 Glucose 174 H 101 Lactate 1.3 Calcium 8.7 9.6 Magnesium 2.0 2.0 Total Bilirubin 0.2 0.3 AST 15 16 ALT 23 26 Alkaline Phosphatase 98 106 Ammonia Troponin I High Sens <4.0 L C-Reactive Protein <0.50 <0.50 <0.50 NT-Pro-B Natriuret Pep 397.0 Total Protein 6.3 L 7.0 Albumin 3.1 L 3.7 Globulin 3.2 3.3 Albumin/Globulin Ratio 1.0 1.1 Lipase 48.0 TSH 0.488 Thyroxine (T4) 6.90 Free T3 1.89 L Urine Color Urine Clarity Urine pH Ur Specific [place] Urine Protein Urine Glucose (UA) Urine Ketones Urine Occult Blood Urine Nitrite Urine Bilirubin Urine Urobilinogen Ur Leukocyte Esterase Urine RBC Urine WBC Ur Squamous Epith Cells Urine Bacteria Urine Mucus Ur Culture Indicated? 11/05/23 11/05/23 07:41 06:21 WBC 8.7 RBC 4.40 Hgb 13.3 Hct 39.9 MCV 90.7 MCH 30.2 MCHC 33.3 RDW 13.0 Plt Count 268 MPV 9.9 Neut % (Auto) 56.2 Lymph % (Auto) 32.8 [place] % (Auto) 8.9 Eos % (Auto) 1.2 Baso % (Auto) 0.6 Neut # (Auto) 4.9 Lymph # (Auto) 2.8 [place] # (Auto) 0.8 Eos # (Auto) 0.1 Baso # (Auto) 0.1 Abs Immat Gran (auto) 0.03 Imm/Tot Granulo (auto) 0.3 ESR 31 H Sodium Potassium Chloride Carbon Dioxide Anion Gap BUN Creatinine Est GFR ( Amer) Est GFR (Non-Af Amer) BUN/Creatinine Ratio Glucose Lactate Calcium Magnesium Total Bilirubin AST ALT Alkaline Phosphatase Ammonia 19 Troponin I High Sens C-Reactive Protein NT-Pro-B Natriuret Pep Total Protein Albumin Globulin Albumin/Globulin Ratio Lipase TSH Thyroxine (T4) Free T3 Urine Color Lt. yellow Urine Clarity Clear Urine pH 6.0 Ur Specific [place] <=1.005 A Urine Protein Negative Urine Glucose (UA) Negative Urine Ketones Negative Urine Occult Blood Negative Urine Nitrite Negative Urine Bilirubin Negative Urine Urobilinogen 0.2 Ur Leukocyte Esterase Negative Urine RBC None seen Urine WBC None seen Ur Squamous Epith Cells Rare Urine Bacteria None seen Urine Mucus None seen Ur Culture Indicated? Already ordered Discharge Plan Discharge Disposition: Home, Self-Care Discharge Medications: Continued clopidogrel 75 mg tablet 75 mg PO DAILY liothyronine 5 mcg tablet 5 mcg PO DAILY omeprazole 20 mg capsule,delayed release(DR/EC) 20 mg PO DAILY gabapentin 100 mg capsule 100 mg PO Q12H sumatriptan succinate [Imitrex] 100 mg tablet 100 mg PO .at onset PRN (Reason: migraines) Rx Instructions: do not exceed 2 doses per 24 hrs hydroxyzine HCl 25 mg tablet 25 mg PO Q8H PRN (Reason: itching) Qty: 20 0RF Discontinued memantine [Namenda XR] 7 mg capsule,sprinkle,ER 24hr 7 mg PO DAILY Print Language: Lebanese Forms: Portal Instructions Follow Up Appointments: November 11 @ 1:45pm with Dr. Mcgregor [phone]
[2023-11-06] MEDS: LIOTHYRONINE SODIUM 5 MCG TABLET PO (08:42)
[2023-11-06] MEDS: GABAPENTIN 100 MG CAPSULE PO (08:42)
[2023-11-06] MEDS: CLOPIDOGREL BISULFATE 75 MG TABLET PO (08:42)
[2023-11-06 09:21] VITALS: O2SAT 98
--- NOTE | 2023-11-10 15:05 | CM.DCFOLLOWU ---
Person spoke with: Skip How are you feeling? Same How is your pain? No palacio just very tired and weak Did you understand your discharge instructions? Yes Do you have any questions about your discharge instructions? No Were you given any prescriptions at discharge? No Were you able to get your prescriptions filled? N/A Do you understand how to take your medications as ordered? Yes Do you have any questions about your follow up appointment and do you plan to keep your follow up appointment? It's on and yes I am going because I am not feeling any better. Is there anything else that you would like to discuss? No Questions/Comments/Concerns/Other:
== END 2023-11-06 11:21 | disposition home or self-care (01) ==
PROVIDERS: Admitting Provider Family Medicine; PCP Family Medicine; Visit Provider Family Medicine
DX: E86.0 Dehydration (principal); L50.9 Urticaria, unspecified; R53.83 Other fatigue
CPT/HCPCS: 36410; 36415; 36592; 80053; 81001; 82140; 83605; 83690; 83735; 83880; 84436; 84443; 84481; 84484; 85025; 85652; 86140; 87040; 87086; 87150; 87186; 94761; 96361; 96374; 96375; C1887; G0378; G0379; J1094

== ENCOUNTER 2023-11-11 10:20 | Outpatient (OUT) | payer MEDICARE, SELFPAY ==
--- NOTE | 2023-11-11 10:23 | US_ITS ---
[place] [id number] Patient Name: CRISTOBAL CALERO MRN: [id number] date: 1955 Sex: F Assigned Patient Location: [place] Current Patient Location: [place] Accession/Order Number: [id number] Exam Date: 11/11/2023 10:25 Report Date: 11/11/2023 12:54 At the request of: ANITHA RAMEY Procedure: US arterial duplex LE BI EXAMINATION: US arterial duplex LE BI HISTORY: Pain In Leg M79.606, Localized Edema R60.0 COMPARISON: No relevant comparison available. TECHNIQUE: Color duplex Doppler ultrasound evaluation analysis was performed in the usual manner. FINDINGS: RIGHT LOWER EXTREMITY ARTERIAL No significant atherosclerotic plaque, normal triphasic waveform External Iliac PSV: 181.8 cm/s External Iliac EDV: 0.0 cm/s Common Femoral PSV: 134.5 cm/s Common Femoral EDV: 0.0 cm/s Superficial Femoral Proximal PSV: 94.8 cm/s Proximal EDV: 0.0 cm/s Mid PSV: 80.5 cm/s Mid EDV: 0.0 cm/s Distal PSV: 79.2 cm/s Distal EDV: 0.0 cm/s Popliteal Proximal PSV: 60.4 cm/s Popliteal Proximal EDV: 0.0 cm/s Posterior Tibial Proximal PSV: 64.7 cm/s Proximal EDV: 0.0 cm/s Mid PSV: 55.1 cm/s Mid EDV: 0.0 cm/s Distal PSV: 54.3 cm/s Distal EDV: 2.4 cm/s Anterior Tibial Proximal PSV: 49.3 cm/s Proximal EDV: 0.0 cm/s Mid PSV: 50.7 cm/s Mid EDV: 0.0 cm/s Distal PSV: 32.9 cm/s Distal EDV: 0.0 cm/s LEFT LOWER EXTREMITY ARTERIAL No significant atherosclerotic plaque. Normal triphasic waveform External Iliac PSV: 204.1 cm/s External Iliac EDV: 0.0 cm/s Common Femoral PSV: 149.3 cm/s Common Femoral EDV: 0.0 cm/s Superficial Femoral Proximal PSV: 74.9 cm/s Proximal EDV: 0.0 cm/s Mid PSV: 84.0 cm/s Mid EDV: 0.0 cm/s Distal PSV: 80.1 cm/s Distal EDV: 0.0 cm/s Popliteal Proximal PSV: Popliteal Proximal EDV: Posterior Tibial Proximal PSV: 44.9 cm/s Proximal EDV: 0.0 cm/s Mid PSV: 57.0 cm/s Mid EDV: 0.0 cm/s Distal PSV: 47.1 cm/s Distal EDV: Anterior Tibial Proximal PSV: 52.6 cm/s Proximal EDV: 0.0 cm/s Mid PSV: 59.2 cm/s Mid EDV: 0.0 cm/s Distal PSV: 40.5 cm/s Distal EDV: 0.0 cm/s US/US arterial duplex LE BI IMPRESSION: No flow significant stenosis, occlusion or aneurysm identified Electronically authenticated by: MARK RIOS Date: 11/11/2023 12:54
== END 2023-11-11 10:21 | disposition home or self-care (01) ==
LOC: US 10:20
PROVIDERS: PCP Family Medicine; Visit Provider Family Medicine
DX: R09.89 Other specified symptoms and signs involving the circulatory and respiratory systems (principal)
CPT/HCPCS: 93925

== ENCOUNTER 2023-12-24 08:59 | Outpatient (OUT) | payer MEDICARE, SELFPAY ==
[2023-12-24 09:16] LABS: Estimated GFR (African America >60 (>=60); Estimated GFR (Non-African Ame >60 (>=60)
--- NOTE | 2023-12-24 10:44 | CT_ITS ---
The [address] [address] Patient Name: CRISTOBAL CALERO MRN: [id number] date: 1955 Sex: F Assigned Patient Location: LAB Current Patient Location: Accession/Order Number: [id number] Exam Date: 12/24/2023 10:34 Report Date: 12/25/2023 08:07 At the request of: ANITHA RAMEY Procedure: CT abdomen pelvis w con EXAMINATION: CT abdomen pelvis w con HISTORY: Acute Pancreatitis COMPARISON: No relevant comparison available. TECHNIQUE: CT images were created with IV contrast. Axial, Coronal, and Sagittal images. Dose reduction techniques were achieved by using automated exposure control and/or adjustment of mA and/or kV according to patient size and/or use of iterative reconstruction technique. FINDINGS: LUNG BASES: No visible pulmonary or pleural disease. LIVER: No enlargement, atrophy, abnormal density, or significant focal lesion. BILIARY: Surgical clips from cholecystectomy PANCREAS: No lesion, fluid collection, ductal dilatation, or atrophy. SPLEEN: No enlargement or focal lesion. ADRENALS: No mass or enlargement. KIDNEYS: No mass, obstruction, or calcification. BOWEL/MESENTERY: No visible mass, obstruction, or bowel wall thickening. AORTA/VASCULAR: No aortic aneurysm. Mild calcific atherosclerosis RETROPERITONEUM: No mass or adenopathy. LYMPH NODES: No adenopathy. URINARY BLADDER: No visible focal wall thickening, lesion, or calculus. PELVIC ORGANS: Hysterectomy ABDOMINAL WALL: No mass or hernia. BONES: No bony lesion or fracture. Bilateral femoral head avascular necrosis OTHER: Negative. CT/CT abdomen pelvis w con IMPRESSION: No CT evidence of acute pancreatitis Bilateral femoral head avascular necrosis Electronically authenticated by: MARK RIOS Date: 12/25/2023 08:07
== END 2023-12-24 09:00 | disposition home or self-care (01) ==
LOC: LAB 08:59
PROVIDERS: PCP Family Medicine; Visit Provider Family Medicine
DX: K85.90 Acute pancreatitis without necrosis or infection, unspecified (principal); M87.9 Osteonecrosis, unspecified
CPT/HCPCS: 36415; 74177; 82565; Q9967

== ENCOUNTER 2024-02-26 11:28 | Outpatient (OUT) | payer MEDICARE, SELFPAY ==
--- NOTE | 2024-02-26 | CT_ITS ---
The [address] [address] Patient Name: CRISTOBAL CALERO MRN: [id number] date: 1955 Sex: F Assigned Patient Location: [facility] Current Patient Location: [facility] Accession/Order Number: [id number] Exam Date: 02/26/2024 11:40 Report Date: 02/26/2024 12:18 At the request of: ANITHA RAMEY Procedure: CT head/brain wo con EXAM: CT cervical spine wo con, CT head/brain wo con HISTORY: CONCUSSION S06.0X9A COMPARISON: None available at the time of dictation. TECHNIQUE: Axial unenhanced CT images were obtained through the brain. Individualized dose optimization technique was used for the performed procedure by employing the following: Automated exposure control, adjustment of the mA and/or kV according to patient's size, and/or the use of the iterative construction technique. Coronal and sagittal reformats were performed. FINDINGS: No acute intracranial abnormality. No acute infarct, hemorrhage or mass. No midline shift. Carrera-white matter differentiation is preserved. Ventricles and sulci are normal in size. No acute osseous abnormality. Paranasal sinuses are clear. Mastoid air cells are open. Orbits are normal. CERVICAL SPINE: No acute fracture or dislocation of the cervical spine. Moderate degeneration at the atlantodental interval. Craniocervical junction is unremarkable. Mild degeneration at C4-C5 and C5-C6. Prevertebral soft tissues are normal. No cervical adenopathy. Bilateral apical lung scarring. Thyroid gland is normal. No supraclavicular adenopathy. CT/CT head/brain wo con IMPRESSION: 1. No acute intracranial abnormality. No acute intracranial infarct visualized by this modality. (MRI is more sensitive). No acute intracranial hemorrhage 2. No acute fracture or dislocation of the cervical spine. Electronically authenticated by: TIMBO LIEBERMAN Date: 02/26/2024 12:18
--- NOTE | 2024-02-26 | CT_ITS ---
The [address] [address] Patient Name: CRISTOBAL CALERO MRN: [id number] date: 1955 Sex: F Assigned Patient Location: [facility] Current Patient Location: [facility] Accession/Order Number: [id number] Exam Date: 02/26/2024 11:40 Report Date: 02/26/2024 12:18 At the request of: ANITHA RAMEY Procedure: CT cervical spine wo con EXAM: CT cervical spine wo con, CT head/brain wo con HISTORY: CONCUSSION S06.0X9A COMPARISON: None available at the time of dictation. TECHNIQUE: Axial unenhanced CT images were obtained through the brain. Individualized dose optimization technique was used for the performed procedure by employing the following: Automated exposure control, adjustment of the mA and/or kV according to patient's size, and/or the use of the iterative construction technique. Coronal and sagittal reformats were performed. FINDINGS: No acute intracranial abnormality. No acute infarct, hemorrhage or mass. No midline shift. [place]rera-white matter differentiation is preserved. Ventricles and sulci are normal in size. No acute osseous abnormality. Paranasal sinuses are clear. Mastoid air cells are open. Orbits are normal. CERVICAL SPINE: No acute fracture or dislocation of the cervical spine. Moderate degeneration at the atlantodental interval. Craniocervical junction is unremarkable. Mild degeneration at C4-C5 and C5-C6. Prevertebral soft tissues are normal. No cervical adenopathy. Bilateral apical lung scarring. Thyroid gland is normal. No supraclavicular adenopathy. CT/CT cervical spine wo con IMPRESSION: 1. No acute intracranial abnormality. No acute intracranial infarct visualized by this modality. (MRI is more sensitive). No acute intracranial hemorrhage 2. No acute fracture or dislocation of the cervical spine. Electronically authenticated by: TIMBO LIEBERMAN Date: 02/26/2024 12:18
--- OUTSIDE RECORDS SUMMARY | 2024-02-26 11:35 | XMS_ITS | CCD ---
Author Organization [facility] Care Team Providers Care Forestry Aid Technician Name Role Phone BertoNilsont Attending Unavailable Anitha Mcgregor Primary Care Unavailable Anitha Mcgregor MD Primary Care Provider [phone] Luli Roy MD (Hist) Unavailable [phone] ANITHA MCGREGOR Primary Care Unavailable BENJAMIN MOORE Attending Unavailable KAROLINE, DR WELSH Consulting Unavailable KAROLINE, DR WELSH Primary Care Unavailable KAROLINE, DR WELSH Attending Unavailable HOY, DR WELSH Admitting Unavailable ZIEBER, DR TYRELL Alonzo Consulting Unavailable HOY, DR WELSH Consulting Unavailable HOY, DR WELSH Attending Unavailable HOY, DR WELSH Admitting Unavailable HOTyron, DR WELSH Primary Care Unavailable HOTyron, DR WELSH Consulting Unavailable KAROLINE, DR WELSH Primary Care Unavailable AIDEY, DR WELSH Attending Unavailable HOY, DR WELSH Admitting Unavailable WEST, DR MARK Almendarez Consulting Unavailable KAROLINE, DR WELSH Consulting Unavailable KAROLINE, DR WELSH Primary Care Unavailable KAROLINE, DR WELSH Attending Unavailable KAROLINE, DR WELSH Admitting Unavailable FOLEYENEDELIA RODRIGUEZ Consulting Unavailable KAROLINE, DR WELSH Consulting Unavailable KAROLINE, DR WELSH Primary Care Unavailable HOTyron, DR WELSH Attending Unavailable HOY, DR WELSH Admitting Unavailable KAROLINE, DR WELSH Consulting Unavailable KAROLINE, DR WELSH Primary Care Unavailable KAROLINE, DR WELSH Attending Unavailable AIDEY, DR WELSH Admitting Unavailable ZIEBER, DR TYRELL Alonzo Consulting Unavailable KAROLINE, DR WELSH Consulting Unavailable AIDEY, DR WELSH Primary Care Unavailable HOTyron, DR WELSH Attending Unavailable HOY, DR WELSH Admitting Unavailable HOTyron, DR WELSH Consulting Unavailable KAROLINE, DR WELSH Primary Care Unavailable KAROLINE, DR WELSH Attending Unavailable HOY, DR WELSH Admitting Unavailable ZIEBER, DR TYRELL Alonzo Consulting Unavailable FIGUEREDO, LUZ MARIA Consulting Unavailable HAY, DR HUMPHREYS Consulting Unavailable HAY, DR HUMPHREYS Attending Unavailable HAY, DR HUMPHREYS Admitting Unavailable HOY, DR WELSH Primary Care [...] Provider UnavailAnitha Montague MD Primary Care Provider [phone] CINDY PHAN Attending Unavailable ORAL MANSFIELD Referring Unavailable CINDY PHAN Attending Unavailable JASVIR SMILEY Attending Unavailable MIGUEL ÁNGEL HER Referring Unavailable MIGUEL ÁNGEL HER Attending Unavailable Cindy Phan Admitting Unavailable Cindy Phan Attending Unavailable Cindy Phan Referring Unavailable Cindy Phan Admitting Unavailable Cindy Phan Attending Unavailable Cindy Phan Referring Unavailable Allergies Allergy Classification Reported Allergen(s) Allergy Type Date of Onset Reaction(s) Facility (4 sources) Acetaminophen / oxyCODONE; Translations: [OXYCODONE-ACETAMIN OPHEN] Drug Allergy 06-03-20 22 Other: See Comments, Rash [facility] (3 sources) Adhesive Tape; Translations: [ADHESIVE TAPE (ROSINS)] Allergy to substance Other: See Comments [facility] (7 sources) Aspirin; Translations: [ASPIRIN] Drug Allergy 09-14-[address] [facility] (3 sources) Butorphanol; Translations: [BUTORPHANOL TARTRATE] Drug Allergy 09-14-19 10 Other: See Comments [facility] (8 sources) Ciprofloxacin; Translations: [CIPROFLOXACIN] Drug Allergy 06-03-20 22 Other: See Comments, Rash [facility] (3 sources) Etodolac; Translations: [ETODOLAC] Drug Allergy 09-14-[address] [facility] (3 sources) homatropine / HYDROcodone; Translations: [HYDROCODONE-HOMATR OPINE] Drug Allergy Other: See Comments [facility] (3 sources) HYDROmorphone; Translations: [HYDROMORPHONE (BULK)] Drug Allergy 04-10-[address] [facility] (8 sources) Morphine; Translations: [MORPHINE] Drug Allergy 09-14-[address] [facility] (3 sources) Promethazine; Translations: [PROMETHAZINE HCL] Drug Allergy 09-14-[address] [facility] (1 source) Acetaminophen / oxyCODONE Drug Allergy [facility] (1 source) Aspirin Drug Allergy [facility] (5 sources) Butorphanol; Translations: [Stadol] Drug Allergy Unknown [facility] (1 source) Ciprofloxacin Drug Allergy [facility] (1 source) Desonide Drug Allergy [facility] (3 sources) Etodolac; Translations: [Lodine] Drug Allergy [facility] (1 source) homatropine Drug Allergy [facility] (3 sources) HYDROmorphone; Translations: [Dilaudid] Drug Allergy [facility] (3 sources) Levamisole; Translations: [Phenergan] Drug Allergy [facility] (1 source) Morphine Drug Allergy [facility] (1 source) Bleach (Sodium Hypochlorite) Drug allergy (disorder) 01-11-19 56 [facility] (3 sources) HYDROmorphone Drug Allergy 04-10-20 11 Rash [facility] Other (2 sources) Promethazine Drug Allergy Unknown [facility] Other (2 sources) traMADol Drug Allergy Unknown [facility] Other (1 source) Aluminum aspirin Drug Allergy 09-14-19 10 Anaphylaxis [facility] Work Phone: (1 source) Butorphanol Drug Allergy 09-14-19 10 Rash [facility] (1 source) Etodolac Propensity to adverse reactions 09-14-19 10 Rash [facility] (1 source) Promethazine Drug Allergy 09-14-19 10 [facility] (1 source) Sulfamethoxazole / Trimethoprim Drug Allergy 06-03-20 [facility] (1 source) Theophylline Drug Allergy 06-03-20 [facility] (2 sources) Acetaminophen / oxyCODONE; Translations: [Percocet 5/325] Drug Allergy [facility] (2 sources) Adhesive Tape; Translations: [Tape] Propensity to adverse reactions (disorder) [facility] (2 sources) homatropine / HYDROcodone; Translations: [Hydromet] Drug Allergy [facility] Medications Current Medications Medication Drug Class(es) Dates [...] th every 8 hours as needed. amylase 501687 unt / lipase 18890 unt / protease 46856 unt delayed release oral capsule (2 sources) [...] affected ar ea twice daily. 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 CLINICAL HISTORY: H25.13 Age-related nuclear cataract, bilateral. Preop. COMMENT: The heart is normal in size. The mediastinum is unremarkable. The lungs appear clear. No infiltration nor pleural effusion is evident. There are small metallic surgical clips projecting on the upper thorax on the right and the left. There are surgical clips in the right upper quadrant of the abdomen. Ordering Provider: Cindy Phan FINAL REPORT Dictated: 01/19/2024 4:29 pm Karthik Rice M.D. Signed (Electronic Signature): 01/19/2024 4:29 pm Signed by: Karthik Rice M.D. Transcribed by: K[place] Technologist: FAITH Technical Comments Radiation Dose: Ka,r in mGy = na DAP = na Normal [facility] BMPon 01-18-2024 Anion gap [Moles/Vol] 10 mmol/L Normal 6-16 [facility] Comment on above: Performed By: #### 2 [id number] #### [facility] [address] [place] [address] Calcium [Mass/Vol] 9.6 mg/dL Normal 8.9-11.1 [facility] Comment on above: Performed By: #### 2 [id number] #### [facility] [address] [place] [address] Chloride [Moles/Vol] 107 mmol/L Normal 101-111 [facility] Comment on above: Performed By: #### 2 [id number] #### [facility] [address] [place] [address] CO2 [Moles/Vol] 26 mmol/L Normal 21-31 [facility] Comment on above: Performed By: #### 2 [id number] #### [facility] [address] [place] [address] Creatinine [Mass/Vol] 0.9 mg/dL Normal 0.5-1.3 [facility] Comment on above: Performed By: #### 2 [id number] #### [facility] [address] [place] [address] Glucose [Mass/Vol] 95 mg/dL Normal 55-199 [facility] Comment on above: Performed By: #### 2 [id number] #### [facility] [address] [place] [address] Potassium [Moles/Vol] 3.9 mmol/L Normal 3.5-5.3 [facility] Comment on above: Performed By: #### 2 [id number] #### [facility] [address] [place] [address] Sodium [Moles/Vol] 139 mmol/L Normal 135-145 [facility] Comment on above: Performed By: #### 2 [id number] #### [facility] [address] [place] [address] Urea nitrogen [Mass/Vol] 9 mg/dL Normal 5-21 [facility] Comment on above: Performed By: #### 2 [id number] #### [facility] [address] [place] [address] Urea nitrogen/Creatinine [Mass ratio] 10 No Units Normal 10-20 [facility] Comment on above: Performed By: #### 2 [id number] #### [facility] [address] [place] [address] CBC w/Indiceson 01-18-2024 Erythrocyte distribution width (RBC) [Ratio] 14.5 % High 10.9-14.2 [facility] Comment on above: Performed By: #### 2 [id number] #### [facility] [address] [place] [address] Hematocrit (Bld) [Volume fraction] 43.1 % Normal 34.0-46.0 [facility] Comment on above: Performed By: #### 2 [id number] #### [facility] [address] [place] [address] Hemoglobin (Bld) [Mass/Vol] 14.5 g/dL Normal 12.0-16.0 [facility] Comment on above: Performed By: #### 2 172489 #### [facility] [address] [place] [address] MCH (RBC) [Entitic mass] 30.6 pg Normal 27.0-34.0 [facility] Comment on above: Performed By: #### 2 558857 #### [facility] [address] [place] [address] MCHC (RBC) [Mass/Vol] 33.6 g/dL Normal 31.4-36.0 [facility] Comment on above: Performed By: #### 2 188619 #### [facility] [address] [place] [address] MCV (RBC) [Entitic vol] 91.0 fL Normal 80.0-100.0 [facility] Comment on above: Performed By: #### 2 [id number] #### [facility] [address] [place] [address] Platelet mean volume (Bld) [Entitic vol] 7.5 fL Normal 6.4-10.8 [facility] Comment on above: Performed By: #### 2 095147 #### [facility] [address] [place] [address] Platelets (Bld) [#/Vol] 300.0 E9/L Normal 150.0-500.0 [facility] Comment on above: Performed By: #### 2 626920 #### [facility] [address] [place] [address] RBC (Bld) [#/Vol] 4.7 E12/L Normal 4.3-5.9 [facility] Comment on above: Performed By: #### 2 105214 #### [facility] [address] [place] [address] RBC size Nom (Bld) NORMAL Invalid Interpretation Code [facility] Comment on above: Performed By: #### 2 [id number] #### [facility] [address] [place] [address] WBC corrected for nucl RBC Auto (Bld) [#/Vol] 5.9 E9/L Normal 4.0-11.0 [facility] Comment on above: Performed By: #### 2 [id number] #### [facility] [address] [place] [address] eGFRon 01-18-2024 eGFR 70 mL/min/1.73 m2 Normal >=59 [facility] Comment on above: Order Comment: Order added by Discern Expert. Performed By: #### 1 [id number] #### [facility] [address] [place] [address] AMYLASEon 07-01-2022 Amylase [Catalytic activity/Vol] 117 U/L Critically high 25-115 [facility] Comment on above: Performed By: #### T SH, T7, ALIYAH, LIPA, CMP ####[facility] [address] [place], [place] [address]DrKim Wayne CBC AUTO DIFFon 07-01-2022 BASO # 0.1 103/ul Normal 0.0-0.1 [facility] Comment on above: Performed By: #### C BC ####[facility] [address] [place], [place] [address]Dr. Lawrence Wayne Basophils/100 WBC (Bld) 0.6 % Normal 0.2-2.0 [facility] Comment on above: Performed By: #### C BC ####[facility] [address] [place] [address]Dr. Lawrence Wayne EO # 0.1 103/ul Normal 0.0-0.7 [facility] Comment on above: Performed By: #### C BC ####[facility] [address] [place], [place] [address]Dr. Lawrence Wayne Eosinophils/100 WBC (Bld) 0.7 % Critically low 0.9-7.0 [facility] Comment on above: Performed By: #### C BC ####[facility] [address] [place], [place] [address]Dr. Lawrence Wayne Erythrocyte distribution width (RBC) [Ratio] 13.6 % Normal 11.0-15.0 [facility] Comment on above: Performed By: #### C BC ####[facility] [address] [place], [place] [address]Dr. Lawrence Wayne Hematocrit (Bld) [Volume fraction] 45.6 % Normal 36.0-48.0 [facility] Comment on above: Performed By: #### C BC ####[facility] [address] [place], [place] [address]Dr. Lawrence Wayne Hemoglobin (Bld) [Mass/Vol] 15.4 g/dL Normal 12.0-16.0 [facility] Comment on above: Performed By: #### C BC ####[facility] [address] [place], [place] [address]Dr. Lawrence Wayne IG # 0.03 10e3/ul Normal 0.00-0.03 [facility] Comment on above: Performed By: #### C BC ####[facility] [address] [place], [place] [address]Dr. Lawrence Wayne IG % 0.4 % Normal 0.0-0.5 [facility] Comment on above: Performed By: #### C BC ####[facility] [address] [place] [address]Dr. Lawrence Tone LYMPH # 2.8 103/ul Normal 1.2-3.8 [facility] Comment on above: Performed By: #### C BC ####[facility] [address] [place] [address]Dr. Lawrence Tone Lymphocytes/100 WBC (Bld) 33.5 % Normal 20.5-60.0 [facility] Comment on above: Performed By: #### C BC ####[facility] [address] [place] [address]Dr. Lawrence Tone MANUAL DIFF REQ NO Normal [facility] Comment on above: Performed By: #### C BC ####[facility] [address] [place] [address]Dr. Lawrence Tone MCH (RBC) [Entitic mass] 30.1 pg Normal 26.7-34.0 [facility] Comment on above: Performed By: #### C BC ####[facility] [address] [place], [place] [address]Dr. Lawrence Tone MCHC (RBC) [Mass/Vol] 33.8 g/dL Normal 29.9-35.2 [facility] Comment on above: Performed By: #### C BC ####[facility] [address] [place] [address]Dr. Laraantonio Wayne MCV (RBC) [Entitic vol] 89.2 fL Normal 81.0-99.0 [facility] Comment on above: Performed By: #### C BC ####[facility] [address] [place], [place] [address]Dr. Lawrence Tone MONO # 0.8 103/ul Normal 0.3-0.8 [facility] Comment on above: Performed By: #### C BC ####[facility] [address] [place], [place] [address]Dr. Laraantonio Wayne Monocytes/100 WBC (Bld) 9.3 % Normal 1.7-12.0 [facility] Comment on above: Performed By: #### C BC ####[facility] [address] [place], [place] [address]Dr. Lawrence Wayne NEUT # 4.6 103/ul Normal 1.4-6.5 [facility] Comment on above: Performed By: #### C BC ####[facility] [address] [place] [address]Dr. Lawrence Wayne Neutrophils/100 WBC (Bld) 55.5 % Normal 43.0-75.0 [facility] Comment on above: Performed By: #### C BC ####[facility] [address] [place] [address]Dr. Lawrence Wayne Platelet mean volume (Bld) [Entitic vol] 8.6 fL Critically low 9.5-13.5 [facility] Comment on above: Performed By: #### C BC ####[facility] [address] [place] [address]Dr. Lawrence Wayne PLT 380 103/ul Normal 150-450 [facility] Comment on above: Performed By: #### C BC ####[facility] [address] [place] [address]Dr. Lawrence Wayne RBC 5.11 106/ul Normal 4.20-5.40 [facility] Comment on above: Performed By: #### C BC ####[facility] [address] [place] [address]Dr. Lawrence Wayne WBC 8.3 103/ul Normal 4.0-11.0 [facility] Comment on above: Performed By: #### C BC ####[facility] [address] [place] [address]Dr. Lawrence Wayne FREE THYROXINE INDEX T7on FTI 3.28 Normal 1.30-4.50 [facility] Comment on above: Performed By: #### T SH, T7, ALIYAH, LIPA, CMP ####[facility] [address] [place] [address]Dr. Lawrence Wayne T3U 36.0 % Normal 30.0-39.0 [facility] Comment on above: Performed By: #### T SH, T7, ALIYAH, LIPA, CMP ####[facility] [address] [place] [address]Dr. Lawrence Wayne T4 [Mass/Vol] 9.10 ug/dL Normal 4.80-13.90 [facility] Comment on above: Performed By: #### T SH, T7, ALIYAH, LIPA, CMP ####[facility] [address] [place] [address]Dr. Lawrence Wayne LIPASEon 07-01-2022 Lipase [Catalytic activity/Vol] 125.0 U/L Normal 73.0-393.0 [facility] Comment on above: Performed By: #### T SH, T7, ALIYAH, LIPA, CMP ####[facility] [address] [place] [address]Dr. Lawrence Wayne PROF 14(COMP METB)on 023 Albumin [Mass/Vol] 3.8 g/dL Normal 3.4-5.[address] [facility] Comment on above: Performed By: #### T SH, T7, ALIYAH, LIPA, CMP ####[facility] [address] [place] [address]Dr. Lawrence Wayne Albumin/Globulin [Mass ratio] 1.1 {ratio} Normal [facility] Comment on above: Performed By: #### T SH, T7, ALIYAH, LIPA, CMP ####[facility] [address] [place] [address]Dr. Lawrence Wayne ALP [Catalytic activity/Vol] 104 U/L Normal 46-116 [facility] Comment on above: Performed By: #### T SH, T7, ALIYAH, LIPA, CMP ####[facility] [address] [place] [address]Dr. Lawrence Wayne ALT [Catalytic activity/Vol] 36 U/L Normal 14-59 [facility] Comment on above: Performed By: #### T SH, T7, ALIYAH, LIPA, CMP ####[facility] [address] [place] [address]Dr. Lawrence Wayne Anion gap [Moles/Vol] 11.7 mmol/L Normal [facility] Comment on above: Performed By: #### T SH, T7, ALIYAH, LIPA, CMP ####[facility] [address] [place] [address]Dr. Lawrence Wayne AST [Catalytic activity/Vol] 22 U/L Normal 15-37 [facility] Comment on above: Performed By: #### T SH, T7, ALIYAH, LIPA, CMP ####[facility] [address] [place] [address]Dr. Lawrence Wayne Bilirubin [Mass/Vol] 0.5 mg/dL Normal 0.2-1.0 [facility] Comment on above: Performed By: #### T SH, T7, ALIYAH, LIPA, CMP ####[facility] [address] [place] [address]Dr. Lawrence Wayne Calcium [Mass/Vol] 9.8 mg/dL Normal 8.5-10.1 [facility] Comment on above: Performed By: #### T SH, T7, ALIYAH, LIPA, CMP ####[facility] [address] [place], [place] [address]Dr. Lawrence Wayne Chloride [Moles/Vol] 102 mmol/L Normal 98-107 [facility] Comment on above: Performed By: #### T SH, T7, ALIYAH, LIPA, CMP ####[facility] [address] [place], [place] [address]Dr. Lawrence Wayne CO2 [Moles/Vol] 29.3 mmol/L Normal 21.0-32.0 [facility] Comment on above: Performed By: #### T SH, T7, ALIYAH, LIPA, CMP ####[facility] [address] [place], [place] [address]Dr. Lawrence Wayne Creatinine [Mass/Vol] 0.88 mg/dL Normal 0.55-1.02 [facility] Comment on above: Performed By: #### T SH, T7, ALIYAH, LIPA, CMP ####[facility] [address] [place] [address]Dr. Lawrence Wayne EGFR-AF [place] >60 Normal >=60 [facility] Comment on above: Performed By: #### T SH, T7, ALIYAH, LIPA, CMP ####[facility] [address] [place] [address]Dr. Lawrence Wayne EGFR-NON AF [place] >60 Normal >=60 [facility] Comment on above: Performed By: #### T SH, T7, ALIYAH, LIPA, CMP ####[facility] [address] [place] [address]Dr. Lawrence Wayne Globulin (S) [Mass/Vol] 3.5 g/dL Normal [facility] Comment on above: Performed By: #### T SH, T7, ALIYAH, LIPA, CMP ####[facility] [address] [place] [address]Dr. Lawrence Wayne Glucose [Mass/Vol] 98 mg/dL Normal 74-106 [facility] Comment on above: Performed By: #### T SH, T7, ALIYAH, LIPA, CMP ####[facility] [address] [place] [address]Dr. Lawrence Wayne Potassium [Moles/Vol] 3.9 mmol/L Normal 3.5-5.1 [facility] Comment on above: Performed By: #### T SH, T7, ALIYAH, LIPA, CMP ####[facility] [address] [place] [address]Dr. Lawrence Wayne Protein [Mass/Vol] 7.3 g/dL Normal 6.4-8.2 [facility] Comment on above: Performed By: #### T SH, T7, ALIYAH, LIPA, CMP ####[facility] [address] [place] [address]Dr. Laralan Wayne Sodium [Moles/Vol] 139 mmol/L Normal 136-145 [facility] Comment on above: Performed By: #### T SH, T7, ALIYAH, LIPA, CMP ####[facility] [address] [place] [address]Dr. Lawrence Wayne Urea nitrogen [Mass/Vol] 11.0 mg/dL Normal 7.0-18.0 [facility] Comment on above: Performed By: #### T SH, T7, ALIYAH, LIPA, CMP ####[facility] [address] [place] [address]Dr. Lawrence Wayne Urea nitrogen/Creatinine [Mass ratio] 12.5 mg/mg Normal [facility] Comment on above: Performed By: #### T SH, T7, ALIYAH, LIPA, CMP ####[facility] [address] [place] [address]DrKim Wayne TSHon 07-01-2022 TSH 1.744 uIU/mL Normal 0.358-3.740 [facility] Comment on above: Performed By: #### T SH, T7, ALIYAH, LIPA, CMP ####[facility] [address] [place] [address]DrKim Wayne CBC AUTO DIFFon 06-17-2022 BASO # 0.0 103/ul Normal 0.0-0.1 [facility] Comment on above: Performed By: #### A MY, CMP, LIPA #### [facility] [address] [place] [address] [address] Lawrence Wayne Basophils/100 WBC (Bld) 0.4 % Normal 0.2-2.0 [facility] Comment on above: Performed By: #### A MY, CMP, LIPA #### [facility] [address] [place] [address] [address] Lawrence Wayne EO # 0.0 103/ul Normal 0.0-0.7 [facility] Comment on above: Performed By: #### A MY, CMP, LIPA #### [facility] [address] [place] [address] [address] Lawrence Wayne Eosinophils/100 WBC (Bld) 0.8 % Critically low 0.9-7.0 [facility] Comment on above: Performed By: #### A MY, CMP, LIPA #### [facility] [address] [place] [address] [address] Lawrence Wayne Erythrocyte distribution width (RBC) [Ratio] 13.2 % Normal 11.0-15.0 [facility] Comment on above: Performed By: #### A MY, CMP, LIPA #### [facility] [address] [place] [address] [address] Lawrence Wayne Hematocrit (Bld) [Volume fraction] 43.1 % Normal 36.0-48.0 [facility] Comment on above: Performed By: #### A MY, CMP, LIPA #### [facility] [address] [place] [address] Dr. Lawrence Wayne Hemoglobin (Bld) [Mass/Vol] 15.1 g/dL Normal 12.0-16.0 [facility] Comment on above: Performed By: #### A MY, CMP, LIPA #### [facility] [address] [place] [address] Dr. Lawrence Wayne IG # 0.03 10e3/ul Normal 0.00-0.03 [facility] Comment on above: Performed By: #### A MY, CMP, LIPA #### [facility] [address] [place] [address] Dr. Lawrence Wayne IG % 0.6 % Critically high 0.0-0.5 [facility] Comment on above: Performed By: #### A MY, CMP, LIPA #### [facility] [address] [place] [address] Dr. Lawrence Wayne LYMPH # 1.1 103/ul Critically low 1.2-3.8 [facility] Comment on above: Performed By: #### A MY, CMP, LIPA #### [facility] [address] [place] [address] Dr. Lawrence Wayne Lymphocytes/100 WBC (Bld) 22.0 % Normal 20.5-60.0 [facility] Comment on above: Performed By: #### A MY, CMP, LIPA #### [facility] [address] [place] [address] Dr. Lawrence Wayne MANUAL DIFF REQ NO Normal [facility] Comment on above: Performed By: #### A MY, CMP, LIPA #### [facility] [address] [place] [address] Dr. Lawrence Wayne MCH (RBC) [Entitic mass] 30.3 pg Normal 26.7-34.0 [facility] Comment on above: Performed By: #### A MY, CMP, LIPA #### [facility] [address] [place] [address] Dr. Lawrence Wayne MCHC (RBC) [Mass/Vol] 35.0 g/dL Normal 29.9-35.2 [facility] Comment on above: Performed By: #### A MY, CMP, LIPA #### [facility] [address] [place] [address] Dr. Lawrence Wayne MCV (RBC) [Entitic vol] 86.4 fL Normal 81.0-99.0 [facility] Comment on above: Performed By: #### A MY, CMP, LIPA #### [facility] [address] [place] [address] Dr. Lawrence Wayne MONO # 0.7 103/ul Normal 0.3-0.8 [facility] Comment on above: Performed By: #### A MY, CMP, LIPA #### [facility] [address] [place] [address] Dr. Lawrence Wayne Monocytes/100 WBC (Bld) 13.6 % Critically high 1.7-12.0 [facility] Comment on above: Performed By: #### A MY, CMP, LIPA #### [facility] [address] [place] [address] Dr. Lawrence Wayne NEUT # 3.2 103/ul Normal 1.4-6.5 [facility] Comment on above: Performed By: #### A MY, CMP, LIPA #### [facility] [address] [place] [address] Dr. Lawrence Wayne Neutrophils/100 WBC (Bld) 62.6 % Normal 43.0-75.0 [facility] Comment on above: Performed By: #### A MY, CMP, LIPA #### [facility] [address] [place] [address] Dr. Lawrence Wayne Platelet mean volume (Bld) [Entitic vol] 9.0 fL Critically low 9.5-13.5 [facility] Comment on above: Performed By: #### A MY, CMP, LIPA #### [facility] [address] [place] [address] Dr. Lawrence Wayne PLT 257 103/ul Normal 150-450 [facility] Comment on above: Performed By: #### A MY, CMP, LIPA #### [facility] [address] [place] [address] Dr. Lawrence Wayne RBC 4.99 106/ul Normal 4.20-5.40 [facility] Comment on above: Performed By: #### A MY, CMP, LIPA #### [facility] [address] [place] [address] Dr. Lawrence Wayne WBC 5.1 103/ul Normal 4.0-11.0 [facility] Comment on above: Performed By: #### A MY, CMP, LIPA #### [facility] [address] [place] [address] Dr. Lawrence Wayne INFLUENZA A AND B AGon 06-17 [facility] SEE BELOW Normal [facility] Comment on above: Result Comment: Nega tive for Flu B protein antigen. Infection due to Flu B cannot be ruled out. Flu B antigen in the sample may be below the detection limit of the test. Performed By: #### A MY, CMP, LIPA #### [facility] [address] [place] [address] Dr. Lawrence Wayne INFLUENZA A AG Positive Abnormal NEGATIVE SEE COMMENT [facility] Comment on above: Performed By: #### A MY, CMP, LIPA #### [facility] [address] [place] [address] Dr. Lawrence Wayne INFLUENZA B AG Negative Normal NEGATIVE SEE COMMENT [facility] Comment on above: Performed By: #### A MY, CMP, LIPA #### [facility] [address] [place] [address] Dr. Lawrence Wayne PROF 14(COMP METB)on 023 Albumin [Mass/Vol] 3.4 g/dL Normal 3.4-5.[address] [facility] Comment on above: Performed By: #### A MY, CMP, LIPA #### [facility] [address] [place] [address] Dr. Lawrence Wayne Albumin/Globulin [Mass ratio] 0.9 {ratio} Normal [facility] Comment on above: Performed By: #### A MY, CMP, LIPA #### [facility] [address] [address] [address] Lawrence Wayne ALP [Catalytic activity/Vol] 94 U/L Normal 46-116 [facility] Comment on above: Performed By: #### A MY, CMP, LIPA #### [facility] [address] [address] [address] Lawrence Wayne ALT [Catalytic activity/Vol] 36 U/L Normal 14-59 [facility] Comment on above: Performed By: #### A MY, CMP, LIPA #### [facility] [address] [address] [address] Lawrence Wayne Anion gap [Moles/Vol] 18.9 mmol/L Normal [facility] Comment on above: Performed By: #### A MY, CMP, LIPA #### [facility] [address] [address] [address] Lawrence Wayne AST [Catalytic activity/Vol] 32 U/L Normal 15-37 [facility] Comment on above: Performed By: #### A MY, CMP, LIPA #### [facility] [address] [address] [address] Lawrence Wayne Bilirubin [Mass/Vol] 0.4 mg/dL Normal 0.2-1.0 [facility] Comment on above: Performed By: #### A MY, CMP, LIPA #### [facility] [address] [place] [address] Dr. Lawrence Wayne Calcium [Mass/Vol] 9.1 mg/dL Normal 8.5-10.[address] [facility] Comment on above: Performed By: #### A MY, CMP, LIPA #### [facility] [address] [place] [address] Dr. Lawrence Wayne Chloride [Moles/Vol] 100 mmol/L Normal 98-107 [facility] Comment on above: Performed By: #### A MY, CMP, LIPA #### [facility] [address] [address] [address] Lawrence Wayne CO2 [Moles/Vol] 19.7 mmol/L Critically low 21.0-32.0 [facility] Comment on above: Performed By: #### A MY, CMP, LIPA #### [facility] [address] [address] [address] Lawrence Wayne Creatinine [Mass/Vol] 1.13 mg/dL Critically high 0.55-1.02 [facility] Comment on above: Performed By: #### A MY, CMP, LIPA #### [facility] [address] [address] [address] Lawrence Wayne EGFR-AF [place] 58 mL/min/1.73m2 Critically low >=60 [facility] Comment on above: Performed By: #### A MY, CMP, LIPA #### [facility] [address] [address] [address] Lawrence Wayne EGFR-NON AF [place] 48 mL/min/1.73m2 Critically low >=60 [facility] Comment on above: Performed By: #### A MY, CMP, LIPA #### [facility] [address] [address] [address] Lawrence Wayne Globulin (S) [Mass/Vol] 3.9 g/dL Normal [facility] Comment on above: Performed By: #### A MY, CMP, LIPA #### [facility] [address] [address] [address] Lawrence Wayne Glucose [Mass/Vol] 105 mg/dL Normal 74-106 [facility] Comment on above: Performed By: #### A MY, CMP, LIPA #### [facility] [address] [address] [address] Lawrence Wayne Potassium [Moles/Vol] 3.6 mmol/L Normal 3.5-5.1 [facility] Comment on above: Performed By: #### A MY, CMP, LIPA #### [facility] [address] [address] [address] Lawrence Wayne Protein [Mass/Vol] 7.3 g/dL Normal 6.4-8.[address] [facility] Comment on above: Performed By: #### A MY, CMP, LIPA #### [facility] [address] [address] [address] Lawrence Wayne Sodium [Moles/Vol] 135 mmol/L Critically low 136-145 [facility] Comment on above: Performed By: #### A MY, CMP, LIPA #### [facility] [address] [address] [address] Lawrence Wayne Urea nitrogen [Mass/Vol] 13.0 mg/dL Normal 7.0-18.0 [facility] Comment on above: Performed By: #### A MY, CMP, LIPA #### [facility] [address] [place] [address] Dr. Lawrence Wayne Urea nitrogen/Creatinine [Mass ratio] 11.5 mg/mg Normal [facility] Comment on above: Performed By: #### A MY, CMP, LIPA #### [facility] [address] [place] [address] Dr. Lawrence Wayne MRI CSPINE WO CONon 05-20-20 MRI CSPINE WO CON EXAMINATION: MRI CSPINE WO CON HISTORY: Cervical radiculopathy ; chronic [...] TYRELL MOREJON Date: 2022-05-20 10:26 Normal [facility] AMYLASEon 05-07-2022 Amylase [Catalytic activity/Vol] 81 U/L Normal 25-115 [facility] Comment on above: Performed By: #### A MY, CMP, LIPA #### [facility] [address] [place] [address] Dr. Lawrence Wayne CBC AUTO DIFFon 05-07-2022 BASO # 0.0 103/ul Normal 0.0-0.1 [facility] Comment on above: Performed By: #### A MY, CMP, LIPA #### [facility] [address] [place] [address] Dr. Lawrence Wayne Basophils/100 WBC (Bld) 0.8 % Normal 0.2-2.0 [facility] Comment on above: Performed By: #### A MY, CMP, LIPA #### [facility] [address] [place] [address] Dr. Lawrence Wayne EO # 0.1 103/ul Normal 0.0-0.7 [facility] Comment on above: Performed By: #### A MY, CMP, LIPA #### [facility] [address] [address] [address] Lawrence Wayne Eosinophils/100 WBC (Bld) 1.5 % Normal 0.9-7.0 [facility] Comment on above: Performed By: #### A MY, CMP, LIPA #### [facility] [address] [place] [address] Dr. Lawrence Wayne Erythrocyte distribution width (RBC) [Ratio] 12.7 % Normal 11.0-15.0 [facility] Comment on above: Performed By: #### A MY, CMP, LIPA #### [facility] [address] [place] [address] Dr. Lawrence Wayne Hematocrit (Bld) [Volume fraction] 40.5 % Normal 36.0-48.0 [facility] Comment on above: Performed By: #### A MY, CMP, LIPA #### [facility] [address] [place] [address] Dr. Lawrence Wayne Hemoglobin (Bld) [Mass/Vol] 13.8 g/dL Normal 12.0-16.0 [facility] Comment on above: Performed By: #### A MY, CMP, LIPA #### [facility] [address] [place] [address] Dr. Lawrence Wayne IG # 0.01 10e3/ul Normal 0.00-0.03 [facility] Comment on above: Performed By: #### A MY, CMP, LIPA #### [facility] [address] [place] [address] Dr. Lawrence Wayne IG % 0.2 % Normal 0.0-0.5 [facility] Comment on above: Performed By: #### A MY, CMP, LIPA #### [facility] [address] [place] [address] Dr. Lawrence Wayne LYMPH # 1.7 103/ul Normal 1.2-3.8 [facility] Comment on above: Performed By: #### A MY, CMP, LIPA #### [facility] [address] [place] [address] Dr. Lawrence Wayne Lymphocytes/100 WBC (Bld) 32.7 % Normal 20.5-60.0 [facility] Comment on above: Performed By: #### A MY, CMP, LIPA #### [facility] [address] [place] [address] Dr. Lawrence Wayne MANUAL DIFF REQ NO Normal [facility] Comment on above: Performed By: #### A MY, CMP, LIPA #### [facility] [address] [place] [address] Dr. Lawrence Wayne MCH (RBC) [Entitic mass] 30.5 pg Normal 26.7-34.0 [facility] Comment on above: Performed By: #### A MY, CMP, LIPA #### [facility] [address] [place] [address] Dr. Lawrence Wayne MCHC (RBC) [Mass/Vol] 34.1 g/dL Normal 29.9-35.2 [facility] Comment on above: Performed By: #### A MY, CMP, LIPA #### [facility] [address] [place] [address] Dr. Lawrence Wayne MCV (RBC) [Entitic vol] 89.4 fL Normal 81.0-99.0 [facility] Comment on above: Performed By: #### A MY, CMP, LIPA #### [facility] [address] [place] [address] Dr. Lawrence Wayne MONO # 0.6 103/ul Normal 0.3-0.8 [facility] Comment on above: Performed By: #### A MY, CMP, LIPA #### [facility] [address] [place] [address] Dr. Lawrence Wayne Monocytes/100 WBC (Bld) 10.5 % Normal 1.7-12.0 [facility] Comment on above: Performed By: #### A MY, CMP, LIPA #### [facility] [address] [place] [address] Dr. Lawrence Wayne NEUT # 2.9 103/ul Normal 1.4-6.5 [facility] Comment on above: Performed By: #### A MY, CMP, LIPA #### [facility] [address] [place] [address] Dr. Lawrence Wayne Neutrophils/100 WBC (Bld) 54.3 % Normal 43.0-75.0 [facility] Comment on above: Performed By: #### A MY, CMP, LIPA #### [facility] [address] [place] [address] Dr. Lawrence Wayne Platelet mean volume (Bld) [Entitic vol] 9.4 fL Critically low 9.5-13.5 [facility] Comment on above: Performed By: #### A MY, CMP, LIPA #### [facility] [address] [place], [place] [id number] Dr. Lawrence Wayne PLT 292 103/ul Normal 150-450 [facility] Comment on above: Performed By: #### A MY, CMP, LIPA #### [facility] [address] [address] [address] Lawrence Wayne RBC 4.53 106/ul Normal 4.20-5.40 [facility] Comment on above: Performed By: #### A MY, CMP, LIPA #### [facility] [address] [place] [address] Dr. Lawrence Wayne WBC 5.3 103/ul Normal 4.0-11.0 [facility] Comment on above: Performed By: #### A MY, CMP, LIPA #### [facility] [address] [place] [address] Dr. Lawrence Wayne LIPASEon 05-07-2022 Lipase [Catalytic activity/Vol] 86.0 U/L Normal 73.0-393.0 [facility] Comment on above: Performed By: #### A MY, CMP, LIPA #### [facility] [address] [place] [address] Dr. Lawrence Wayne PROF 14(COMP METB)on 022 Albumin [Mass/Vol] 3.7 g/dL Normal 3.4-5.[address] [facility] Comment on above: Performed By: #### A MY, CMP, LIPA #### [facility] [address] [place] [address] Dr. Lawrence Wayne Albumin/Globulin [Mass ratio] 1.1 {ratio} Normal [facility] Comment on above: Performed By: #### A MY, CMP, LIPA #### [facility] [address] [place] [address] Dr. Lawrence Wayne ALP [Catalytic activity/Vol] 96 U/L Normal 46-116 [facility] Comment on above: Performed By: #### A MY, CMP, LIPA #### [facility] [address] [place] [address] Dr. Lawrence Wayne ALT [Catalytic activity/Vol] 24 U/L Normal 14-59 [facility] Comment on above: Performed By: #### A MY, CMP, LIPA #### [facility] [address] [address] [address] Lawrence Wayne Anion gap [Moles/Vol] 8.3 mmol/L Normal [facility] Comment on above: Performed By: #### A MY, CMP, LIPA #### [facility] [address] [address] [address] Lawrence Wayne AST [Catalytic activity/Vol] 19 U/L Normal 15-37 [facility] Comment on above: Performed By: #### A MY, CMP, LIPA #### [facility] [address] [address] [address] Lawrence Wayne Bilirubin [Mass/Vol] 0.2 mg/dL Normal 0.2-1.0 [facility] Comment on above: Performed By: #### A MY, CMP, LIPA #### [facility] [address] [address] [address] Lawrence Wayne Calcium [Mass/Vol] 9.1 mg/dL Normal 8.5-10.[address] [facility] Comment on above: Performed By: #### A MY, CMP, LIPA #### [facility] [address] [place] [address] Dr. Lawrence Wayne Chloride [Moles/Vol] 103 mmol/L Normal 98-107 [facility] Comment on above: Performed By: #### A MY, CMP, LIPA #### [facility] [address] [address] [address] Lawrence Wayne CO2 [Moles/Vol] 30.6 mmol/L Normal 21.0-32.0 [facility] Comment on above: Performed By: #### A MY, CMP, LIPA #### [facility] [address] [place] [address] Dr. Lawrence Wayne Creatinine [Mass/Vol] 0.88 mg/dL Normal 0.55-1.02 [facility] Comment on above: Performed By: #### A MY, CMP, LIPA #### [facility] [address] [place] [address] Dr. Lawrence Wayne EGFR-AF [place] >60 Normal >=60 [facility] Comment on above: Performed By: #### A MY, CMP, LIPA #### [facility] [address] [address] [address] Lawrence Wayne EGFR-NON AF [place] >60 Normal >=60 [facility] Comment on above: Performed By: #### A MY, CMP, LIPA #### [facility] [address] [address] [address] Lawrence Wayne Globulin (S) [Mass/Vol] 3.4 g/dL Normal [facility] Comment on above: Performed By: #### A MY, CMP, LIPA #### [facility] [address] [place] [address] Dr. Lawrence Wayne Glucose [Mass/Vol] 94 mg/dL Normal 74-106 [facility] Comment on above: Performed By: #### A MY, CMP, LIPA #### [facility] [address] [place] [address] Dr. Lawrence Wayne Potassium [Moles/Vol] 3.9 mmol/L Normal 3.5-5.1 [facility] Comment on above: Performed By: #### A MY, CMP, LIPA #### [facility] [address] [place] [address] Dr. Lawrence Wayne Protein [Mass/Vol] 7.1 g/dL Normal 6.4-8.2 [facility] Comment on above: Performed By: #### A MY, CMP, LIPA #### [facility] [address] [place] [address] Dr. Lawrence Wayne Sodium [Moles/Vol] 138 mmol/L Normal 136-145 [facility] Comment on above: Performed By: #### A MY, CMP, LIPA #### [facility] [address] [place] [address] Dr. Lawrence Wayne Urea nitrogen [Mass/Vol] 10.0 mg/dL Normal 7.0-18.0 [facility] Comment on above: Performed By: #### A MY, CMP, LIPA #### [facility] [address] [address] [address] Lawrence Wayne Urea nitrogen/Creatinine [Mass ratio] 11.4 mg/mg Normal [facility] Comment on above: Performed By: #### A MY, CMP, LIPA #### [facility] [address] [place], [place] [address] Dr. Lawrence Wayne MG MAMM SCREEN 3D QING CADon 03-26-2022 MG MAMM SCREEN 3D QING CAD Patient: SKIP HONG. Exam Date: 03/26/2022 : 1955 Gender:F Ordering : DR RADHA LYMAN . Admission #: [id number] Family : Order #: [id number] CLICK HERE TO VIEW EXAM RADIOLOGY REPORT [...] breast cancer at age 30. LOCATION: [facility] BREAST COMPOSITION: Heterogeneously dense,which may obscure [...] LUMP SHOULD BE BIOPSIED. Dictated by: Mark Rios MD on 03/26/2022 at 09:51 Approved by: Mark Rios MD on 03/26/2022 at 09:53 Normal [facility] NM STRESS/REST MULTIon 03-24 NM STRESS/REST MULTI Patient: MANISHA HONG. Exam Date: 03/24/2022 : 1955 Gender:F Ordering : DR ANITHA MCGREGOR . Admission #: [id number] Family : Order #: [id number] CLICK HERE TO VIEW EXAM RADIOLOGY REPORT [...] 2. Normal exercise test Dictated by: Mark Rios MD on 03/25/2022 at 07:03 Approved by: Mark Rios MD on 03/25/2022 at 07:15 Normal [facility] T4, T3U, FTI LABCORPon 02-19 Free Thyroxine Index 2.3 Normal 1.2-4.9 [facility] Comment on above: Performed By: #### A MY, CMP, LIPA #### [facility] [address] [address] [address] Lawrence Wayne T3 Uptake 28 % Normal 24-39 [facility] Comment on above: Performed By: #### A MY, CMP, LIPA #### [facility] [address] [address] [address] Lawrence Wayne T4 [Mass/Vol] 8.3 ug/dL Normal 4.5-12.0 [facility] Comment on above: Performed By: #### A MY, CMP, LIPA #### [facility] [address] [address] [address] Lawrence Wayne BNPon 02-18-2022 Natriuretic peptide B (Bld) [Mass/Vol] 78.0 pg/mL Normal <=900.0 [facility] Comment on above: Performed By: #### A MY, CMP, LIPA #### [facility] [address] [address] [address] Lawrence Wayne CBC AUTO DIFFon 02-18-2022 BASO # 0.1 103/ul Normal 0.0-0.1 [facility] Comment on above: Performed By: #### C BC ####[facility] [address] [address]DrKim Wayne Basophils/100 WBC (Bld) 0.9 % Normal 0.2-2.0 [facility] Comment on above: Performed By: #### C BC ####[facility] [address] [place], [place] [address]DrKim Wayne EO # 0.1 103/ul Normal 0.0-0.7 [facility] Comment on above: Performed By: #### C BC ####[facility] [address] [place], [place] [address]DrKim Wayne Eosinophils/100 WBC (Bld) 1.1 % Normal 0.9-7.0 [facility] Comment on above: Performed By: #### C BC ####[facility] [address] [place], [place] [address]DrKim Wayne Erythrocyte distribution width (RBC) [Ratio] 12.6 % Normal 11.0-15.0 [facility] Comment on above: Performed By: #### C BC ####[facility] [address] [place], [place] [address]DrKim Wayne Hematocrit (Bld) [Volume fraction] 44.4 % Normal 36.0-48.0 [facility] Comment on above: Performed By: #### C BC ####[facility] [address] [place], [place] [address]DrKim Wayne Hemoglobin (Bld) [Mass/Vol] 14.7 g/dL Normal 12.0-16.0 [facility] Comment on above: Performed By: #### C BC ####[facility] [address] [address]Dr. Laraantonio Wayne IG # 0.02 10e3/ul Normal 0.00-0.03 [facility] Comment on above: Performed By: #### C BC ####[facility] [address] [address]Dr. Lawrence Wayne IG % 0.3 % Normal 0.0-0.5 [facility] Comment on above: Performed By: #### C BC ####[facility] [address] [place], [place] [address]DrKim Wayne LYMPH # 1.8 103/ul Normal 1.2-3.8 [facility] Comment on above: Performed By: #### C BC ####[facility] [address] [place], [place] [address]Dr. Lawrence Wayne Lymphocytes/100 WBC (Bld) 26.1 % Normal 20.5-60.0 [facility] Comment on above: Performed By: #### C BC ####[facility] [address] [place], [place] [address]DrKim Laraantonio Wayne MANUAL DIFF REQ NO Normal [facility] Comment on above: Performed By: #### C BC ####[facility] [address] [place], [place] [address]Dr. Lawrence Wayne MCH (RBC) [Entitic mass] 30.2 pg Normal 26.7-34.0 [facility] Comment on above: Performed By: #### C BC ####[facility] [address] [place], [place] [address]DrKim Wayne MCHC (RBC) [Mass/Vol] 33.1 g/dL Normal 29.9-35.2 [facility] Comment on above: Performed By: #### C BC ####[facility] [address] [place], [place] [address]Dr. Lawrence Wayne MCV (RBC) [Entitic vol] 91.4 fL Normal 81.0-99.0 [facility] Comment on above: Performed By: #### C BC ####[facility] [address] [address]DrKim Bermudezantonio Tone MONO # 0.8 103/ul Normal 0.3-0.8 [facility] Comment on above: Performed By: #### C BC ####[facility] [address] [address]DrKim Wayne Monocytes/100 WBC (Bld) 11.0 % Normal 1.7-12.0 [facility] Comment on above: Performed By: #### C BC ####[facility] [address] [place], [place] [address]DrKim Wayne NEUT # 4.2 103/ul Normal 1.4-6.5 [facility] Comment on above: Performed By: #### C BC ####[facility] Lipjtxgvet[address] [place], [place] [address]DrKim Wayne Neutrophils/100 WBC (Bld) 60.6 % Normal 43.0-75.0 [facility] Comment on above: Performed By: #### C BC ####[facility] Bqdzvrw[address] [place], [place] [address]DrKim Wayne Platelet mean volume (Bld) [Entitic vol] 9.2 fL Critically low 9.5-13.5 [facility] Comment on above: Performed By: #### C BC ####[facility] Vbjwkbpqkp[address] [place], [place] [address]Dr. Lawrence Wayne PLT 322 103/ul Normal 150-450 [facility] Comment on above: Performed By: #### C BC ####[facility] Meosrgjdcf[address] [place], [place] [address]DrKim Wayne RBC 4.86 106/ul Normal 4.20-5.40 [facility] Comment on above: Performed By: #### C BC ####[facility] [address] [place], [place] [address]DrKim Wayne WBC 7.0 103/ul Normal 4.0-11.0 [facility] Comment on above: Performed By: #### C BC ####[facility] [address] [address]Dr. Lawrence Wayne IRONon 02-18-2022 Iron [Mass/Vol] 89.0 ug/dL Normal 50.0-170.0 [facility] Comment on above: Performed By: #### A MY, CMP, LIPA #### [facility] [address] [address] [address] Lawrence Wayne PROF 14(COMP METB)on 022 Albumin [Mass/Vol] 4.0 g/dL Normal 3.4-5.0 [facility] Comment on above: Performed By: #### A MY, CMP, LIPA #### [facility] [address] [address] [address] Lawrence Wayne Albumin/Globulin [Mass ratio] 1.1 {ratio} Normal [facility] Comment on above: Performed By: #### A MY, CMP, LIPA #### [facility] [address] [address] [address] Lawrence Wayne ALP [Catalytic activity/Vol] 98 U/L Normal 46-116 [facility] Comment on above: Performed By: #### A MY, CMP, LIPA #### [facility] [address] [address] [address] Lawrence Wayne ALT [Catalytic activity/Vol] 23 U/L Normal 14-59 [facility] Comment on above: Performed By: #### A MY, CMP, LIPA #### [facility] [address] [address] [address] Lawrence Wayne Anion gap [Moles/Vol] 4.9 mmol/L Normal [facility] Comment on above: Performed By: #### A MY, CMP, LIPA #### [facility] [address] [address] [address] Lawrence Wayne AST [Catalytic activity/Vol] 19 U/L Normal 15-37 [facility] Comment on above: Performed By: #### A MY, CMP, LIPA #### [facility] [address] [address] [address] Lawrence Wayne Bilirubin [Mass/Vol] 0.4 mg/dL Normal 0.2-1.0 [facility] Comment on above: Performed By: #### A MY, CMP, LIPA #### [facility] [address] [address] [address] Lawrence Wayne Calcium [Mass/Vol] 9.5 mg/dL Normal 8.5-10.[address] [facility] Comment on above: Performed By: #### A MY, CMP, LIPA #### [facility] [address] [address] [address] Lawrence Wayne Chloride [Moles/Vol] 102 mmol/L Normal 98-107 [facility] Comment on above: Performed By: #### A MY, CMP, LIPA #### [facility] [address] [place] [address] Dr. Lawrence Wayne CO2 [Moles/Vol] 30.1 mmol/L Normal 21.0-32.0 [facility] Comment on above: Performed By: #### A MY, CMP, LIPA #### [facility] [address] [address] [address] Lawrence Wayne Creatinine [Mass/Vol] 0.99 mg/dL Normal 0.55-1.02 [facility] Comment on above: Performed By: #### A MY, CMP, LIPA #### [facility] [address] [address] [address] Lawrence Wayne EGFR-AF [place] >60 Normal >=60 [facility] Comment on above: Performed By: #### A MY, CMP, LIPA #### [facility] [address] [address] [address] Lawrence Wayne EGFR-NON AF [place] 56 mL/min/1.73m2 Critically low >=60 [facility] Comment on above: Performed By: #### A MY, CMP, LIPA #### [facility] [address] [address] [address] Lawrence Wayne Globulin (S) [Mass/Vol] 3.5 g/dL Normal [facility] Comment on above: Performed By: #### A MY, CMP, LIPA #### [facility] [address] [address] [address] Lawrence Wayne Glucose [Mass/Vol] 100 mg/dL Normal 74-[address] [facility] Comment on above: Performed By: #### A MY, CMP, LIPA #### [facility] [address] [address] [address] Lawrence Wayne Potassium [Moles/Vol] 4.0 mmol/L Normal 3.5-5.1 [facility] Comment on above: Performed By: #### A MY, CMP, LIPA #### [facility] [address] [place] [address] Dr. Lawrence Wayne Protein [Mass/Vol] 7.5 g/dL Normal 6.4-8.2 [facility] Comment on above: Performed By: #### A MY, CMP, LIPA #### [facility] [address] [address] [address] Lawrence Wayne Sodium [Moles/Vol] 133 mmol/L Critically low 136-145 [facility] Comment on above: Performed By: #### A MY, CMP, LIPA #### [facility] [address] [place] [address] Dr. Lawrence Wayne Urea nitrogen [Mass/Vol] 14.0 mg/dL Normal 7.0-18.0 [facility] Comment on above: Performed By: #### A MY, CMP, LIPA #### [facility] [address] [place] [address] Dr. Lawrence Wayne Urea nitrogen/Creatinine [Mass ratio] 14.1 mg/mg Normal [facility] Comment on above: Performed By: #### A MY, CMP, LIPA #### [facility] [address] [place] [address] Dr. Lawrence Wayne TSHon 02-18-2022 TSH 1.273 uIU/mL Normal 0.358-3.740 [facility] Comment on above: Performed By: #### A MY, CMP, LIPA #### [facility] [address] [place] [address] Dr. Lawrence Wayne AMMONIAon 02-07-2022 Ammonia (P) [Mass/Vol] ug/dL Critically low 11-32 [facility] Comment on above: Performed By: #### A MM ####[facility] [address] [address]Dr. Lawrence Wayne AMYLASEon 02-07-2022 Amylase [Catalytic activity/Vol] 88 U/L Normal 25-115 [facility] Comment on above: Performed By: #### A MY, CMP, LIPA #### [facility] [address] [place] [address] Dr. Lawrence Wayne BNPon 02-07-2022 Natriuretic peptide B (Bld) [Mass/Vol] 236.0 pg/mL Normal <=900.0 [facility] Comment on above: Performed By: #### A MY, CMP, LIPA #### [facility] [address] [place] [address] Dr. Lawrence Wayne CBC AUTO DIFFon 02-07-2022 BASO # 0.0 103/ul Normal 0.0-0.1 [facility] Comment on above: Performed By: #### C BC ####[facility] [address] [place], [place] [address]DrKim Wayne Basophils/100 WBC (Bld) 0.7 % Normal 0.2-2.0 [facility] Comment on above: Performed By: #### C BC ####[facility] Yfntathlcg[address] [place], [place] [address]DrKim Wayne EO # 0.1 103/ul Normal 0.0-0.7 [facility] Comment on above: Performed By: #### C BC ####[facility] [address] [address]DrKim Wayne Eosinophils/100 WBC (Bld) 1.3 % Normal 0.9-7.0 [facility] Comment on above: Performed By: #### C BC ####[facility] [address]ch[address] [place], [place] [address]DrKim Wayne Erythrocyte distribution width (RBC) [Ratio] 12.7 % Normal 11.0-15.0 [facility] Comment on above: Performed By: #### C BC ####[facility] [address] [address]Dr. Laraantonio Wayne Hematocrit (Bld) [Volume fraction] 38.7 % Normal 36.0-48.0 [facility] Comment on above: Performed By: #### C BC ####[facility] [address]chz[address] [place], [place] [address]Dr. Lawrence Wayne Hemoglobin (Bld) [Mass/Vol] 12.4 g/dL Normal 12.0-16.0 [facility] Comment on above: Result Comment: RECE IVING BOLUS AND SALINE Performed By: #### C BC ####[facility] Icuir[address]as[address] [place], [place] [address]Dr. Lawrence Wayne IG # 0.01 10e3/ul Normal 0.00-0.03 [facility] Comment on above: Performed By: #### C BC ####[facility] X[address]hjbtlm[address] [place], [place] [address]Dr. Lawrence Wayne IG % 0.2 % Normal 0.0-0.5 [facility] Comment on above: Performed By: #### C BC ####[facility] [address]tl[address] [place], [place] [address]Dr. Lawrence Wayne LYMPH # 1.9 103/ul Normal 1.2-3.8 [facility] Comment on above: Performed By: #### C BC ####[facility] [address]th[address] [place], [place] [address]Dr. Lawrence Wayne Lymphocytes/100 WBC (Bld) 35.0 % Normal 20.5-60.0 [facility] Comment on above: Performed By: #### C BC ####[facility] Yvm[address]fq[address] [place], [place] [address]DrKim Wayne MANUAL DIFF REQ NO Normal [facility] Comment on above: Performed By: #### C BC ####[facility] [address] [place], [place] [address]Dr. Lawrence Wayne MCH (RBC) [Entitic mass] 30.2 pg Normal 26.7-34.0 [facility] Comment on above: Performed By: #### C BC ####[facility] [address]oc[address]xs[address] [place], [place] [address]Dr. Lawrence Wayne MCHC (RBC) [Mass/Vol] 32.0 g/dL Normal 29.9-35.2 [facility] Comment on above: Performed By: #### C BC ####[facility] [address]zvkowaxjm[address] [place], [place] [address]Dr. Lawrence Tone MCV (RBC) [Entitic vol] 94.2 fL Normal 81.0-99.0 [facility] Comment on above: Performed By: #### C BC ####[facility] [address]fhpftqu[address] [place], [place] [address]Dr. Lawrence Wayne MONO # 0.6 103/ul Normal 0.3-0.8 [facility] Comment on above: Performed By: #### C BC ####[facility] [address]qx[address] [place], [place] [address]Dr. Lawrence Wayne Monocytes/100 WBC (Bld) 10.7 % Normal 1.7-12.0 [facility] Comment on above: Performed By: #### C BC ####[facility] Pnalxdwf[address] [place], [place] [address]Dr. Laraantonio Tone NEUT # 2.9 103/ul Normal 1.4-6.5 [facility] Comment on above: Performed By: #### C BC ####[facility] Dmnzoaoz[address] [place], [place] [address]Dr. Lawrence Wayne Neutrophils/100 WBC (Bld) 52.1 % Normal 43.0-75.0 [facility] Comment on above: Performed By: #### C BC ####[facility] Mr[address] [place], [place] [address]Dr. Lawrence Wayne Platelet mean volume (Bld) [Entitic vol] 9.5 fL Normal 9.5-13.5 [facility] Comment on above: Performed By: #### C BC ####[facility] [address] [place] [address]b. Lawrence Wayne PLT 260 103/ul Normal 150-450 [facility] Comment on above: Performed By: #### C BC ####[facility] [address] [address]Dr. Lawrence Wayne RBC 4.11 106/ul Critically low 4.20-5.40 [facility] Comment on above: Performed By: #### C BC ####[facility] [address] [address]Dr. Lawrence Wayne WBC 5.5 103/ul Normal 4.0-11.0 [facility] Comment on above: Performed By: #### C BC ####[facility] [address] [address]DrKim Wayne PROF 14(COMP METB)on 022 Albumin [Mass/Vol] 3.0 g/dL Critically low 3.4-5.0 [facility] Comment on above: Performed By: #### A MY, CMP, LIPA #### [facility] [address] [address] [address] Lawrence Wayne Albumin/Globulin [Mass ratio] 1.1 {ratio} Normal [facility] Comment on above: Performed By: #### A MY, CMP, LIPA #### [facility] [address] [address] [address] Lawrence Wayne ALP [Catalytic activity/Vol] 77 U/L Normal 46-116 [facility] Comment on above: Performed By: #### A MY, CMP, LIPA #### [facility] [address] [address] [address] Lawrence Wayne ALT [Catalytic activity/Vol] 21 U/L Normal 14-59 [facility] Comment on above: Performed By: #### A MY, CMP, LIPA #### [facility] [address] [address] [address] Lawrence Wayne Anion gap [Moles/Vol] 10.9 mmol/L Normal [facility] Comment on above: Performed By: #### A MY, CMP, LIPA #### [facility] [address] [address] [address] Lawrence Wayne AST [Catalytic activity/Vol] 15 U/L Normal 15-37 [facility] Comment on above: Performed By: #### A MY, CMP, LIPA #### [facility] [address] [address] [address] Lawrence Wayne Bilirubin [Mass/Vol] 0.3 mg/dL Normal 0.2-1.0 [facility] Comment on above: Performed By: #### A MY, CMP, LIPA #### [facility] [address] [address] [address] Lawrence Wayne Calcium [Mass/Vol] 8.4 mg/dL Critically low 8.5-10.1 [facility] Comment on above: Performed By: #### A MY, CMP, LIPA #### [facility] [address] [address] [address] Lawrence Wayne Chloride [Moles/Vol] 110 mmol/L Critically high 98-107 [facility] Comment on above: Performed By: #### A MY, CMP, LIPA #### [facility] [address] [address] [address] Lawrence Wayne CO2 [Moles/Vol] 25.0 mmol/L Normal 21.0-32.0 [facility] Comment on above: Performed By: #### A MY, CMP, LIPA #### [facility] [address] [address] [address] Lawrence Wayne Creatinine [Mass/Vol] 0.87 mg/dL Normal 0.55-1.02 [facility] Comment on above: Performed By: #### A MY, CMP, LIPA #### [facility] [address] [address] [address] Lawrence Wayne EGFR-AF [place] >60 Normal >=60 [facility] Comment on above: Performed By: #### A MY, CMP, LIPA #### [facility] [address] [address] [address] Lawrence Wayne EGFR-NON AF [place] >60 Normal >=60 [facility] Comment on above: Performed By: #### A MY, CMP, LIPA #### [facility] [address] [address] [address] Lawrence Wayne Globulin (S) [Mass/Vol] 2.8 g/dL Normal [facility] Comment on above: Performed By: #### A MY, CMP, LIPA #### [facility] [address] [address] [address] Lawrence Wayne Glucose [Mass/Vol] 96 mg/dL Normal 74-106 [facility] Comment on above: Performed By: #### A MY, CMP, LIPA #### [facility] [address] [address] [address] Lawrence Wayne Potassium [Moles/Vol] 3.9 mmol/L Normal 3.5-5.1 [facility] Comment on above: Performed By: #### A MY, CMP, LIPA #### [facility] [address] [address] [address] Lawrence Wayne Protein [Mass/Vol] 5.8 g/dL Critically low 6.4-8.2 [facility] Comment on above: Performed By: #### A MY, CMP, LIPA #### [facility] [address] [place] [address] Dr. Lawrence Wayne Sodium [Moles/Vol] 142 mmol/L Normal 136-145 [facility] Comment on above: Performed By: #### A MY, CMP, LIPA #### [facility] [address] [address] [address] Lawrence Wayne Urea nitrogen [Mass/Vol] 11.0 mg/dL Normal 7.0-18.0 [facility] Comment on above: Performed By: #### A MY, CMP, LIPA #### [facility] [address] [place] [address] Dr. Lawrence Wayne Urea nitrogen/Creatinine [Mass ratio] 12.6 mg/mg Normal [facility] Comment on above: Performed By: #### A MY, CMP, LIPA #### [facility] [address] [place] [address] Dr. Lawrence Wayne AMMONIAon 08-25-2022 Ammonia (P) [Moles/Vol] 44 umol/L Critically high 11-32 [facility] Comment on above: Performed By: #### A MY, CMP, LIPA #### [facility] [address] [address] [address] Lawrence Wayne AMYLASEon 02-06-2022 Amylase [Catalytic activity/Vol] 89 U/L Normal 25-115 [facility] Comment on above: Performed By: #### M G, CMP, CMADM, BNP, ALIYAH, LIPA #### [facility] [address] [address] [address] Lawrence Wayne BNPon 02-06-2022 Natriuretic peptide B (Bld) [Mass/Vol] 103.0 pg/mL Normal <=900.0 [facility] Comment on above: Performed By: #### M G, CMP, CMADM, BNP, ALIYAH, LIPA ####[facility] [address] [address]Dr. Lawrence Wayne CARDIAC ORAL ADMITon 022 CK [Catalytic activity/Vol] 65 U/L Normal 26-192 [facility] Comment on above: Performed By: #### M G, CMP, CMADM, BNP, ALIYAH, LIPA #### [facility] [address] [address] [address] Lawrence Wayne CK.MB [Mass/Vol] 1.16 ng/mL Normal <=3.60 [facility] Comment on above: Performed By: #### M G, CMP, CMADM, BNP, ALIYAH, LIPA #### [facility] [address] [address] [address] Lawrence Wayne HSTROP <4.0 Normal 4.0-51.3 [facility] Comment on above: Result Comment: CUT- OFF POINTS HAVE BEEN ESTABLISHED BASED ON THE FOURTH UNIVERSAL DEFINITIONS OF MYOCARDIAL INFARCTION. THE UPPER REFERENCE LIMIT (URL) OF TROPONIN, DEFINED THE 99TH PERCENTILE OF cTnI DISTRIBUTION IN A REFERENCE POPULATION, HAS BEEN CONFIRMED THE DECISION THRESHOLD FOR [place] DIAGNOSIS. Performed By: #### M G, CMP, CMADM, BNP, ALIYAH, LIPA #### [facility] [address] [place], [place] [address] Dr. Lawrence Wayne GEORGI 47 ng/mL Normal 9-82 [facility] Comment on above: Performed By: #### M G, CMP, CMADM, BNP, ALIYAH, LIPA #### [facility] [address] [place], [place] [address] Dr. Lawrence Wayne CBC AUTO DIFFon 02-06-2022 BASO # 0.1 103/ul Normal 0.0-0.1 [facility] Comment on above: Performed By: #### C BC ####[facility] [address] [place] [id number] Wayne Basophils/100 WBC (Bld) 0.7 % Normal 0.2-2.0 [facility] Comment on above: Performed By: #### C BC ####[facility] [address] [address]Dr. Lawrence Wayne EO # 0.1 103/ul Normal 0.0-0.7 [facility] Comment on above: Performed By: #### C BC ####[facility] [address] [place] [address]Dr. Lawrence Wayne Eosinophils/100 WBC (Bld) 1.1 % Normal 0.9-7.0 [facility] Comment on above: Performed By: #### C BC ####[facility] [address] [address]Dr. Lawrence Wayne Erythrocyte distribution width (RBC) [Ratio] 12.6 % Normal 11.0-15.0 [facility] Comment on above: Performed By: #### C BC ####[facility] [address] [place] [address]Dr. Lawrence Wayne Hematocrit (Bld) [Volume fraction] 44.3 % Normal 36.0-48.0 [facility] Comment on above: Performed By: #### C BC ####[facility] [address] [address]DrKim Wayne Hemoglobin (Bld) [Mass/Vol] 14.4 g/dL Normal 12.0-16.0 [facility] Comment on above: Performed By: #### C BC ####[facility] [address] [address]Dr. Lawrence Wayne IG # 0.01 10e3/ul Normal 0.00-0.03 [facility] Comment on above: Performed By: #### C BC ####[facility] [address] [address]Dr. Lawrence Wayne IG % 0.1 % Normal 0.0-0.5 [facility] Comment on above: Performed By: #### C BC ####[facility] [address] [address]Dr. Lawrence Wayne LYMPH # 2.1 103/ul Normal 1.2-3.8 [facility] Comment on above: Performed By: #### C BC ####[facility] [address] [address]Dr. Lawrence Wayne Lymphocytes/100 WBC (Bld) 29.6 % Normal 20.5-60.0 [facility] Comment on above: Performed By: #### C BC ####[facility] [address] [address]Dr. Lawrence Wayne MANUAL DIFF REQ NO Normal [facility] Comment on above: Performed By: #### C BC ####[facility] [address] [address]Dr. Lawrenec Wayne MCH (RBC) [Entitic mass] 30.4 pg Normal 26.7-34.0 [facility] Comment on above: Performed By: #### C BC ####[facility] [address] [place] [address]Dr. Lawrence Wayne MCHC (RBC) [Mass/Vol] 32.5 g/dL Normal 29.9-35.2 [facility] Comment on above: Performed By: #### C BC ####[facility] [address] [address]Dr. Lawrence Wayne MCV (RBC) [Entitic vol] 93.7 fL Normal 81.0-99.0 [facility] Comment on above: Performed By: #### C BC ####[facility] [address] [place] [address]Dr. Lawrence Wayne MONO # 0.8 103/ul Normal 0.3-0.8 [facility] Comment on above: Performed By: #### C BC ####[facility] [address] [place] [address]Dr. Lawrence Wayne Monocytes/100 WBC (Bld) 10.6 % Normal 1.7-12.0 [facility] Comment on above: Performed By: #### C BC ####[facility] [address] [place] [address]Dr. Lawrence Wayne NEUT # 4.1 103/ul Normal 1.4-6.5 [facility] Comment on above: Performed By: #### C BC ####[facility] [address] [address]Dr. Lawrence Wayne Neutrophils/100 WBC (Bld) 57.9 % Normal 43.0-75.0 [facility] Comment on above: Performed By: #### C BC ####[facility] [address] [place] [address]Dr. Lawrence Wayne Platelet mean volume (Bld) [Entitic vol] 9.3 fL Critically low 9.5-13.5 [facility] Comment on above: Performed By: #### C BC ####[facility] [address] [place] [address]Dr. Lawrence Wayne PLT 294 103/ul Normal 150-450 [facility] Comment on above: Performed By: #### C BC ####[facility] [address] [place] [address]Dr. Lawrence Wayne RBC 4.73 106/ul Normal 4.20-5.40 [facility] Comment on above: Performed By: #### C BC ####[facility] [address] [place] [address]Dr. Lawrence Wayne WBC 7.1 103/ul Normal 4.0-11.0 [facility] Comment on above: Performed By: #### C BC ####[facility] [address] [place] [id number]. Lawrence Wayne CULTURE BLOODon 02-06-2022 Microscopic examination of blood, culture Culture Observations: NO GROWTH AT 5 DAYS. Normal [facility] Comment on above: Performed By: #### B LDCX2 ####[facility] [address] [place] [id number]. Laraantonio Wayne Microscopic examination of blood, culture Culture Observations: NO GROWTH AT 5 DAYS. Normal [facility] Comment on above: Performed By: #### B LDCX1 ####[facility] [address] [place] [id number]. Lawrence Wayne CULTURE URINEon 02-06-2022 CULTURE URINE Culture Observations : NO GROWTH. Normal [facility] Comment on above: Performed By: #### U RCX ####[facility] [address] [place], [place] [address]Dr. Lawrence Wayne Covid-19 PCR (CVDTB)on 01-14 SARS-CoV-2 (COVID-19) RNA EVELIA+probe Ql (Unsp spec) Not detected Normal NOT DETECTED [facility] Comment on above: Result Comment: When [...] for this test is supported by the [place] of [employer] and Human Service's declaration that [...] be used). Performed By: #### C VDTBH ####[facility] [address] [place], [place] [address]Dr. Lawrence Wayne LACTATE/LACTIC ACIDon 2021 Lactate [Moles/Vol] 1.1 mmol/L Normal 0.4-1.9 [facility] Comment on above: Performed By: #### A MY, CMP, LIPA #### [facility] [address] [address] [address] Lawrence Wayne LIPASEon 02-06-2022 Lipase [Catalytic activity/Vol] 107.0 U/L Normal 73.0-393.0 [facility] Comment on above: Performed By: #### M G, CMP, CMADM, BNP, ALIYAH, LIPA #### [facility] [address] [address] [address] Lawrence Wayne MAGNESIUMon 02-06-2022 Magnesium [Mass/Vol] 2.3 mg/dL Normal 1.8-2.4 [facility] Comment on above: Performed By: #### M G, CMP, CMADM, BNP, ALIYAH, LIPA ####[facility] [address] [address]Dr. Lawrence Wayne PROF 14(COMP METB)on 022 Albumin [Mass/Vol] 3.8 g/dL Normal 3.4-5.[address] [facility] Comment on above: Performed By: #### M G, CMP, CMADM, BNP, ALIYAH, LIPA #### [facility] [address] [address] [address] Lawrence Wayne Albumin/Globulin [Mass ratio] 1.1 {ratio} Normal [facility] Comment on above: Performed By: #### M G, CMP, CMADM, BNP, ALIYAH, LIPA #### [facility] [address] [address] [address] Lawrence Wayne ALP [Catalytic activity/Vol] 98 U/L Normal 46-116 [facility] Comment on above: Performed By: #### M G, CMP, CMADM, BNP, ALIYAH, LIPA #### [facility] [address] [address] [address] Lawrence Wayne ALT [Catalytic activity/Vol] 26 U/L Normal 14-59 [facility] Comment on above: Performed By: #### M G, CMP, CMADM, BNP, ALIYAH, LIPA #### [facility] [address] [address] [address] Lawrence Wayne Anion gap [Moles/Vol] 12.9 mmol/L Normal [facility] Comment on above: Performed By: #### M G, CMP, CMADM, BNP, ALIYAH, LIPA #### [facility] [address] [address] [address] Lawrence Wayne AST [Catalytic activity/Vol] 25 U/L Normal 15-37 [facility] Comment on above: Performed By: #### M G, CMP, CMADM, BNP, ALIYAH, LIPA #### [facility] [address] [address] [address] Lawrence Wayne Bilirubin [Mass/Vol] 0.3 mg/dL Normal 0.2-1.0 [facility] Comment on above: Performed By: #### M G, CMP, CMADM, BNP, ALIYAH, LIPA #### [facility] [address] [address] [address] Lawrence Wayne Calcium [Mass/Vol] 9.1 mg/dL Normal 8.5-10.[address] [facility] Comment on above: Performed By: #### M G, CMP, CMADM, BNP, ALIYAH, LIPA #### [facility] [address] [place] [address] Dr. Lawrence Wayne Chloride [Moles/Vol] 105 mmol/L Normal 98-107 [facility] Comment on above: Performed By: #### M G, CMP, CMADM, BNP, ALIYAH, LIPA #### [facility] [address] [address] [address] Lawrence Wayne CO2 [Moles/Vol] 24.0 mmol/L Normal 21.0-32.0 [facility] Comment on above: Performed By: #### M G, CMP, CMADM, BNP, ALIYAH, LIPA #### [facility] [address] [address] [address] Lawrence Wayne Creatinine [Mass/Vol] 0.90 mg/dL Normal 0.55-1.02 [facility] Comment on above: Performed By: #### M G, CMP, CMADM, BNP, ALIYAH, LIPA #### [facility] [address] [address] [address] Lawrence Wayne EGFR-AF SOUTH SUD[place]ESE >60 Normal >=60 [facility] Comment on above: Performed By: #### M G, CMP, CMADM, BNP, ALIYAH, LIPA #### [facility] [address] [address] [address] Lawrence Wayne EGFR-NON AF [place] >60 Normal >=60 [facility] Comment on above: Performed By: #### M G, CMP, CMADM, BNP, ALIYAH, LIPA #### [facility] [address] [address] [address] Lawrence Wayne Globulin (S) [Mass/Vol] 3.5 g/dL Normal [facility] Comment on above: Performed By: #### M G, CMP, CMADM, BNP, ALIYAH, LIPA #### [facility] [address] [address] [address] Lawrence Wayne Glucose [Mass/Vol] 95 mg/dL Normal 74-106 [facility] Comment on above: Performed By: #### M G, CMP, CMADM, BNP, ALIYAH, LIPA #### [facility] [address] [address] [address] Lawrence Wayne Potassium [Moles/Vol] 3.9 mmol/L Normal 3.5-5.1 [facility] Comment on above: Performed By: #### M G, CMP, CMADM, BNP, ALIYAH, LIPA #### [facility] [address] [address] [address] Lawrence Wayne Protein [Mass/Vol] 7.3 g/dL Normal 6.4-8.2 [facility] Comment on above: Performed By: #### M G, CMP, CMADM, BNP, ALIYAH, LIPA #### [facility] [address] [address] [address] Lawrence aWyne Sodium [Moles/Vol] 138 mmol/L Normal 136-145 [facility] Comment on above: Performed By: #### M G, CMP, CMADM, BNP, ALIYAH, LIPA #### [facility] [address] [place] [address] Dr. Lawrence Wayne Urea nitrogen [Mass/Vol] 12.0 mg/dL Normal 7.0-18.0 [facility] Comment on above: Performed By: #### M G, CMP, CMADM, BNP, ALIYAH, LIPA #### [facility] [address] [place] [address] Dr. Lawrence Wayne Urea nitrogen/Creatinine [Mass ratio] 13.3 mg/mg Normal [facility] Comment on above: Performed By: #### M G, CMP, CMADM, BNP, ALIYAH, LIPA #### [facility] [address] [place] [address] Dr. Lawrence Wayne UA RANDOM W/MICROSCOPICon BACTERIA NONE SEEN Normal NONE SEEN [facility] Comment on above: Performed By: #### A MY, CMP, LIPA #### [facility] [address] [place] [address] Dr. Lawrence Wayne Bilirubin Ql (U) Negative Normal NEGATIVE [facility] Comment on above: Performed By: #### A MY, CMP, LIPA #### [facility] [address] [place] [address] Dr. Lawrence Wayne CAST NONE SEEN Normal NONE SEEN [facility] Comment on above: Performed By: #### A MY, CMP, LIPA #### [facility] [address] [place] [address] Dr. Lawrence Wayne Clarity (U) CLEAR Normal CLEAR [facility] Comment on above: Performed By: #### A MY, CMP, LIPA #### [facility] [address] [place] [address] Dr. Lawrence Wayne Color (U) LT. YELLOW Normal YELLOW [facility] Comment on above: Performed By: #### A MY, CMP, LIPA #### [facility] [address] [place] [address] Dr. Lawrence Wayne Crystals LM Nom (Urine sed) NONE SEEN Normal NONE SEEN [facility] Comment on above: Performed By: #### A MY, CMP, LIPA #### [facility] [address] [address] [address] Lawrence Wayne Epithelial cells LM Ql (Urine sed) FEW Abnormal NONE SEEN /RARE [facility] Comment on above: Performed By: #### A MY, CMP, LIPA #### [facility] [address] [address] [address] Lawrence Wayne Glucose Ql (U) Negative Normal NEGATIVE [facility] Comment on above: Performed By: #### A MY, CMP, LIPA #### [facility] [address] [place] [address] Dr. Lawrence Wayne Hemoglobin Ql (U) Negative Normal NEGATIVE [facility] Comment on above: Performed By: #### A MY, CMP, LIPA #### [facility] [address] [place] [address] Dr. Lawrence Wayne Ketones Ql (U) Negative Normal NEGATIVE [facility] Comment on above: Performed By: #### A MY, CMP, LIPA #### [facility] [address] [place] [address] Dr. Lawrence Wayne LEUKOCYTES SMALL Abnormal NEGATIVE [facility] Comment on above: Performed By: #### A MY, CMP, LIPA #### [facility] [address] [place] [address] Dr. Lawrence Wayne MUCOUS NONE SEEN Normal NONE SEEN [facility] Comment on above: Performed By: #### A MY, CMP, LIPA #### [facility] [address] [place] [address] Dr. Lawrence Wayne Nitrite Ql (U) Negative Normal NEGATIVE [facility] Comment on above: Performed By: #### A MY, CMP, LIPA #### [facility] [address] [place] [address] Dr. Lawrence Wayne pH (U) 6.0 [pH] Normal 5-9 [facility] Comment on above: Performed By: #### A MY, CMP, LIPA #### [facility] [address] [address] [address] Lawrence Wayne RBC NONE SEEN Abnormal 0-2 [facility] Comment on above: Performed By: #### A MY, CMP, LIPA #### [facility] [address] [address] [address] Lawrence Wayne SPEC GRAVITY <=1.005 Abnormal 1.005-<=1.025 [facility] Comment on above: Performed By: #### A MY, CMP, LIPA #### [facility] [address] [place] [address] Dr. Lawrence Wayne UA PROTEIN Negative Normal NEGATIVE/ TRACE [facility] Comment on above: Performed By: #### A MY CMP, LIPA #### [facility] [address] [place] [address] Dr. Lawrence Wayne Urobilinogen Qn (U) 0.2 {Antonina'U}/dL Normal 0.2 - 1. 0 [facility] Comment on above: Performed By: #### A MY CMP, LIPA #### [facility] [address] [place] [address] Dr. Lawrence Wayne WBC 0-2 Abnormal NONE SEEN [facility] Comment on above: Performed By: #### A MY, CMP, LIPA #### [facility] [address] [place] [address] Dr. Lawrence Wayne YEAST PRESENT Abnormal NONE SEEN [facility] Comment on above: Performed By: #### A GARTH CMP, LIPA #### [facility] [address] [place] [address] Dr. Lawrence Wayne XR ABD FLAT UP_PA [...] by: TYRELL MOREJON Date: 2022-02-06 16:08 Normal [facility] CTA CHEST WO W CONon 022 CTA [...] focal parenchymal infiltrate Electronically authenticated by: MARK RIOS Date: 2021-08-29 12:20 Normal [facility] XR ABD FLAT_UPon 08-27-2021 XR ABD FLAT_UP [...] ENEDELIA FOLEY Date: 2021-08-27 16:08 Normal [facility] BNPon 08-21-2021 Natriuretic peptide B (Bld) [Mass/Vol] 51.0 pg/mL Normal <=900.0 [facility] Comment on above: Performed By: #### A MY, CMP, LIPA #### [facility] [address] [place] [address] Dr. Lawrence Wayne CBC AUTO DIFFon 08-21-2021 BASO # 0.0 103/ul Normal 0.0-0.1 [facility] Comment on above: Performed By: #### A MY, CMP, LIPA #### [facility] [address] [place] [address] Dr. Lawrence Wayne Basophils/100 WBC (Bld) 0.2 % Normal 0.2-2.0 [facility] Comment on above: Performed By: #### A MY, CMP, LIPA #### [facility] [address] [place] [address] Dr. Lawrence Wayne EO # 0.0 103/ul Normal 0.0-0.7 [facility] Comment on above: Performed By: #### A MY, CMP, LIPA #### [facility] [address] [place] [address] Dr. Lawrence Wayne Eosinophils/100 WBC (Bld) 0.1 % Critically low 0.9-7.0 [facility] Comment on above: Performed By: #### A MY, CMP, LIPA #### [facility] [address] [place] [address] Dr. Lawrence Wayne Erythrocyte distribution width (RBC) [Ratio] 13.3 % Normal 11.0-15.0 [facility] Comment on above: Performed By: #### A MY, CMP, LIPA #### [facility] [address] [place] [address] Dr. Lawrence Wayne Hematocrit (Bld) [Volume fraction] 45.7 % Normal 36.0-48.0 [facility] Comment on above: Performed By: #### A MY, CMP, LIPA #### [facility] [address] [place] [address] Dr. Lawrence Wayne Hemoglobin (Bld) [Mass/Vol] 15.3 g/dL Normal 12.0-16.0 [facility] Comment on above: Performed By: #### A MY, CMP, LIPA #### [facility] [address] [place] [address] Dr. Lawrence Wayne IG # 0.12 10e3/ul Critically high 0.00-0.03 [facility] Comment on above: Performed By: #### A MY, CMP, LIPA #### [facility] [address] [place] [address] Dr. Lawrence Wayen IG % 0.9 % Critically high 0.0-0.5 [facility] Comment on above: Performed By: #### A MY, CMP, LIPA #### [facility] [address] [place] [address] Dr. Lawrence Wayne LYMPH # 1.6 103/ul Normal 1.2-3.8 [facility] Comment on above: Performed By: #### A MY, CMP, LIPA #### [facility] [address] [place] [address] Dr. Lawrence Wayne Lymphocytes/100 WBC (Bld) 11.9 % Critically low 20.5-60.0 [facility] Comment on above: Performed By: #### A MY, CMP, LIPA #### [facility] [address] [place] [address] Dr. Lawrence Wayne MANUAL DIFF REQ NO Normal [facility] Comment on above: Performed By: #### A MY, CMP, LIPA #### [facility] [address] [place] [address] Dr. Lawrence Wayne MCH (RBC) [Entitic mass] 30.2 pg Normal 26.7-34.0 [facility] Comment on above: Performed By: #### A MY, CMP, LIPA #### [facility] [address] [place] [address] Dr. Lawrence Wayne MCHC (RBC) [Mass/Vol] 33.5 g/dL Normal 29.9-35.2 [facility] Comment on above: Performed By: #### A MY, CMP, LIPA #### [facility] [address] [address] [address] Lawrence Wayne MCV (RBC) [Entitic vol] 90.1 fL Normal 81.0-99.0 [facility] Comment on above: Performed By: #### A MY, CMP, LIPA #### [facility] [address] [address] [address] Lawrence Wayne MONO # 1.0 103/ul Critically high 0.3-0.8 [facility] Comment on above: Performed By: #### A MY, CMP, LIPA #### [facility] [address] [place] [address] Dr. Lawrence Wayne Monocytes/100 WBC (Bld) 7.2 % Normal 1.7-12.0 [facility] Comment on above: Performed By: #### A MY, CMP, LIPA #### [facility] [address] [address] [address] Lawrence Wayne NEUT # 11.0 103/ul Critically high 1.4-6.5 [facility] Comment on above: Performed By: #### A MY, CMP, LIPA #### [facility] [address] [address] [address] Lawrence Wayne Neutrophils/100 WBC (Bld) 79.7 % Critically high 43.0-75.0 [facility] Comment on above: Performed By: #### A MY, CMP, LIPA #### [facility] [address] [address] [address] Lawrence Wayne Platelet mean volume (Bld) [Entitic vol] 9.1 fL Critically low 9.5-13.5 [facility] Comment on above: Performed By: #### A MY, CMP, LIPA #### [facility] [address] [address] [address] Lawrence Wayne PLT 434 103/ul Normal 150-450 [facility] Comment on above: Performed By: #### A MY, CMP, LIPA #### [facility] [address] [address] [address] Lawrence Wayne RBC 5.07 106/ul Normal 4.20-5.40 [facility] Comment on above: Performed By: #### A MY, CMP, LIPA #### [facility] [address] [address] [address] Lawrence Wayne WBC 13.8 103/ul Critically high 4.0-11.0 [facility] Comment on above: Performed By: #### A MY, CMP, LIPA #### [facility] [address] [address] [address] Lawrence Wayne PROF 14(COMP METB)on 022 Albumin [Mass/Vol] 3.9 g/dL Normal 3.5-5.[address] [facility] Comment on above: Performed By: #### A MY, CMP, LIPA #### [facility] [address] [address] [address] Lawrence Wayne Albumin/Globulin [Mass ratio] 1.0 {ratio} Normal [facility] Comment on above: Performed By: #### A MY, CMP, LIPA #### [facility] [address] [place] [address] Dr. Lawrence Wayne ALP [Catalytic activity/Vol] 104 U/L Normal 38-126 [facility] Comment on above: Performed By: #### A MY, CMP, LIPA #### [facility] [address] [address] [address] Lawrence Wayne ALT [Catalytic activity/Vol] 20 U/L Normal 9-52 [facility] Comment on above: Performed By: #### A MY, CMP, LIPA #### [facility] [address] [address] [address] Lawrence Wayne Anion gap [Moles/Vol] 15.5 mmol/L Normal [facility] Comment on above: Performed By: #### A MY, CMP, LIPA #### [facility] [address] [place] [address] Dr. Lawrence Wayne AST [Catalytic activity/Vol] 13 U/L Critically low 14-36 [facility] Comment on above: Performed By: #### A MY, CMP, LIPA #### [facility] [address] [address] [address] Lawrence Wayne Bilirubin [Mass/Vol] 0.4 mg/dL Normal 0.2-1.3 [facility] Comment on above: Performed By: #### A MY, CMP, LIPA #### [facility] [address] [place] [address] Dr. Lawrence Wayne Calcium [Mass/Vol] 9.4 mg/dL Normal 8.4-10.2 [facility] Comment on above: Performed By: #### A MY, CMP, LIPA #### [facility] [address] [place] [address] Dr. Lawrence Wayne Chloride [Moles/Vol] 100 mmol/L Normal 98-107 [facility] Comment on above: Performed By: #### A MY, CMP, LIPA #### [facility] [address] [address] [address] Lawrence Wayne CO2 [Moles/Vol] 23.9 mmol/L Normal 22.0-30.0 [facility] Comment on above: Performed By: #### A MY, CMP, LIPA #### [facility] [address] [place] [address] Dr. Lawrence Wayne Creatinine [Mass/Vol] 0.97 mg/dL Normal 0.52-1.04 [facility] Comment on above: Performed By: #### A MY, CMP, LIPA #### [facility] [address] [place] [address] Dr. Lawrence Wayne EGFR-AF [place] >60 Normal >=60 [facility] Comment on above: Performed By: #### A MY, CMP, LIPA #### [facility] [address] [place] [address] Dr. Lawrence Wayne EGFR-NON AF [place] 58 mL/min/1.73m2 Critically low >=60 [facility] Comment on above: Performed By: #### A MY, CMP, LIPA #### [facility] [address] [address] [address] Lawrence Wayne Globulin (S) [Mass/Vol] 3.8 g/dL Normal [facility] Comment on above: Performed By: #### A MY, CMP, LIPA #### [facility] [address] [place] [address] Dr. Lawrence Wayne Glucose [Mass/Vol] 169 mg/dL Critically high 74-106 [facility] Comment on above: Performed By: #### A MY, CMP, LIPA #### [facility] [address] [place] [address] Dr. Lawrence Wayne Potassium [Moles/Vol] 3.4 mmol/L Normal 3.4-5.0 [facility] Comment on above: Performed By: #### A MY, CMP, LIPA #### [facility] [address] [place] [address] Dr. Lawrence Wayne Protein [Mass/Vol] 7.7 g/dL Normal 6.1-8.[address] [facility] Comment on above: Performed By: #### A MY, CMP, LIPA #### [facility] [address] [place] [address] Dr. Lawrence Wayne Sodium [Moles/Vol] 136 mmol/L Critically low 137-145 [facility] Comment on above: Performed By: #### A MY, CMP, LIPA #### [facility] [address] [place] [address] Dr. Lawrence Wayne Urea nitrogen [Mass/Vol] 16.0 mg/dL Normal 7.0-17.0 [facility] Comment on above: Performed By: #### A MY, CMP, LIPA #### [facility] [address] [place] [address] Dr. Lawrence Wayne Urea nitrogen/Creatinine [Mass ratio] 16.5 mg/mg Normal [facility] Comment on above: Performed By: #### A MY, CMP, LIPA #### [facility] [address] [place] [address] Dr. Lawrence Wayne AMIRA by IFAon 08-12-2021 Antinuclear Antibodies, IFA Positive Abnormal [facility] Comment on above: Result Comment: Nega tive <1:80 Borderline 1:80 Positive >1:80 Performed By: #### A NAIFA ####[facility] [address] [address] Lawrence Wayne Centriole Pattern Normal [facility] Comment on above: Performed By: #### A NAIFA ####[facility] [address] [address] Lawrence Wayne Centromere Pattern Normal [facility] Comment on above: Performed By: #### A NAIFA ####[facility] [address] [address] Lawrence Wayne Homogeneous Pattern Normal [facility] Comment on above: Performed By: #### A NAIFA ####[facility] [address] [address] Lawrence Wayne Midbody Pattern Normal [facility] Comment on above: Performed By: #### A NAIFA ####[facility] [address] [address]Dr[address] Lawrence Wayne Note: Comment Normal [facility] Comment on above: Result Comment: For [...] titers Nucleosomes, Histones Drug-induced SLE Speckled Sm, [employer], SCL-70, SLE,MCTD,PSS (diffuse form), SS-A/SS-B Sjogrens Nucleolar SCL-70, PM-1/SCL High titers Scleroderma, PM/DM Centromere Centromere PSS (limited form) w/Crest syndrome variable Nuclear Dot [id number] Primary Biliary Cirrhosis Nuclear GP210, Primary Biliary Cirrhosis Membrane hamilton A,B,C Performed By: #### A MICHELLE ####[facility] [address] [place], [place] [address]. Lawrence Wayne Nuclear Dot Pattern Normal [facility] Comment on above: Performed By: #### A MICHELLE ####[facility] [address] [address]Dr[address] Lawrence Wayne Nuclear Membrane Pattern Normal [facility] Comment on above: Performed By: #### A NAIFA ####[facility] [address] [address] Lawrence Wayne Nucleolar Pattern Normal [facility] Comment on above: Performed By: #### A NAIFA ####[facility] [address] [address]Dr[address] Lawrence Wayne PCNA Pattern Normal [facility] Comment on above: Performed By: #### A NAIFA ####[facility] [address] [address] Lawrence Wayne Speckled Pattern 1:160 Critically high [facility] Comment on above: Result Comment: ICAP nomenclature: AC-2,4,5,29 Performed By: #### A NAIFA ####[facility] [address] [address] Lawrence Wayne Spindle Apparatus Pattern Normal [facility] Comment on above: Performed By: #### A NAIFA ####[facility] [address] [address] Lawrence Wayne AMIRA DIRECTon 08-11-2021 AMIRA Direct Positive Abnormal Negative [facility] Comment on above: Performed By: #### A NAD ####[facility] [address] [address] Lawrence Wayne SLE PROFILE Aon 08-11-2021 Anti-DNA (DS) Ab Qn 1 IU/mL Normal 0-9 [facility] Comment on above: Result Comment: Nega tive <5 Equivocal 5 - 9 Positive >9 Performed By: #### A MY, CMP, LIPA #### [facility] [address] [address] [address] Lawrence Wayne Antichromatin Antibodies <0.2 Normal 0.0-0.9 [facility] Comment on above: Performed By: #### A MY, CMP, LIPA #### [facility] [address] [address] [address] Lawrence Wayne RA Latex Turbid. <10.0 Normal <14.0 [facility] Comment on above: Performed By: #### A MY, CMP, LIPA #### [facility] [address] [address] [address] Lawrence Wayne [employer] Antibodies <0.2 Normal 0.0-0.9 [facility] Comment on above: Performed By: #### A MY, CMP, LIPA #### [facility] [address] [address] [address] Lawrence Wayne Sjogren's Anti-SS-A 1.4 AI Critically high 0.0-0.9 [facility] Comment on above: Performed By: #### A MY, CMP, LIPA #### [facility] [address] [place] [address] Dr. Lawrence Garciaogrvidal's Anti-SS-B <0.2 Normal 0.0-0.9 [facility] Comment on above: Performed By: #### A MY, CMP, LIPA #### [facility] [address] [address] [address] Lawrence Wayne Ramos Antibodies <0.2 Normal 0.0-0.9 [facility] Comment on above: Performed By: #### A MY, CMP, LIPA #### [facility] [address] [address] [address] Lawrence Wayne ANTISTREPTOLYSIN O AB (ASO) on 08-10-2021 Antistreptolysin O Ab 55.6 IU/mL Normal 0.0-200.0 [facility] Comment on above: Performed By: #### A MY, CMP, LIPA #### [facility] [address] [address] [address] Lawrence Wayne C3 and C4 COMPLEMENTon 08-10 Complement C3, Serum 124 mg/dL Normal 82-167 [facility] Comment on above: Performed By: #### A MY, CMP, LIPA #### [facility] [address] [address] [address] Lawrence Wayne Complement C4, Serum 12 mg/dL Normal 12-38 [facility] Comment on above: Performed By: #### A MY, CMP, LIPA #### [facility] [address] [place] [address] Dr. Lawrence Wayne CBC AUTO DIFFon 08-09-2021 BASO # 0.1 103/ul Normal 0.0-0.1 [facility] Comment on above: Performed By: #### A MY, CMP, LIPA #### [facility] [address] [place] [address] Dr. Lawrence Wayne Basophils/100 WBC (Bld) 0.6 % Normal 0.2-2.0 [facility] Comment on above: Performed By: #### A MY, CMP, LIPA #### [facility] [address] [place] [address] Dr. Lawrence Wayne EO # 0.0 103/ul Normal 0.0-0.7 [facility] Comment on above: Performed By: #### A MY, CMP, LIPA #### [facility] [address] [place] [address] Dr. Lawrence Wayne Eosinophils/100 WBC (Bld) 0.2 % Critically low 0.9-7.0 [facility] Comment on above: Performed By: #### A MY, CMP, LIPA #### [facility] [address] [place] [address] Dr. Lawrence Wayne Erythrocyte distribution width (RBC) [Ratio] 13.4 % Normal 11.0-15.0 [facility] Comment on above: Performed By: #### A MY, CMP, LIPA #### [facility] [address] [place] [address] Dr. Lawrence Wayne Hematocrit (Bld) [Volume fraction] 43.6 % Normal 36.0-48.0 [facility] Comment on above: Performed By: #### A MY, CMP, LIPA #### [facility] [address] [place] [address] Dr. Lawrence Wayne Hemoglobin (Bld) [Mass/Vol] 14.2 g/dL Normal 12.0-16.0 [facility] Comment on above: Performed By: #### A MY, CMP, LIPA #### [facility] [address] [address] [address] Lawrence Wayne IG # 0.03 10e3/ul Normal 0.00-0.03 [facility] Comment on above: Performed By: #### A MY, CMP, LIPA #### [facility] [address] [address] [address] Lawrence Wayne IG % 0.3 % Normal 0.0-0.5 [facility] Comment on above: Performed By: #### A MY, CMP, LIPA #### [facility] [address] [place] [address] Dr. Lawrence Wayne LYMPH # 1.1 103/ul Critically low 1.2-3.8 [facility] Comment on above: Performed By: #### A MY, CMP, LIPA #### [facility] [address] [place] [address] Dr. Lawrence Wayne Lymphocytes/100 WBC (Bld) 12.7 % Critically low 20.5-60.0 [facility] Comment on above: Performed By: #### A MY, CMP, LIPA #### [facility] [address] [address] [address] Lawrence Wayne MANUAL DIFF REQ NO Normal [facility] Comment on above: Performed By: #### A MY, CMP, LIPA #### [facility] [address] [place] [address] Dr. Lawrence Wayne MCH (RBC) [Entitic mass] 30.3 pg Normal 26.7-34.0 [facility] Comment on above: Performed By: #### A MY, CMP, LIPA #### [facility] [address] [place] [address] Dr. Lawrence Wayne MCHC (RBC) [Mass/Vol] 32.6 g/dL Normal 29.9-35.2 [facility] Comment on above: Performed By: #### A MY, CMP, LIPA #### [facility] [address] [place] [address] Dr. Lawrence Wayne MCV (RBC) [Entitic vol] 93.0 fL Normal 81.0-99.0 [facility] Comment on above: Performed By: #### A MY, CMP, LIPA #### [facility] [address] [place] [address] Dr. Lawrence Wayne MONO # 0.3 103/ul Normal 0.3-0.8 [facility] Comment on above: Performed By: #### A MY, CMP, LIPA #### [facility] [address] [place] [address] Dr. Lawrence Wayne Monocytes/100 WBC (Bld) 3.7 % Normal 1.7-12.0 [facility] Comment on above: Performed By: #### A MY, CMP, LIPA #### [facility] [address] [place] [address] Dr. Lawrence Wayne NEUT # 7.3 103/ul Critically high 1.4-6.5 [facility] Comment on above: Performed By: #### A MY, CMP, LIPA #### [facility] [address] [place] [address] Dr. Lawrence Wayne Neutrophils/100 WBC (Bld) 82.5 % Critically high 43.0-75.0 [facility] Comment on above: Performed By: #### A MY, CMP, LIPA #### [facility] [address] [place] [address] Dr. Lawrence Wayne Platelet mean volume (Bld) [Entitic vol] 9.6 fL Normal 9.5-13.5 [facility] Comment on above: Performed By: #### A MY, CMP, LIPA #### [facility] [address] [place] [address] Dr. Lawrence Wayne PLT 322 103/ul Normal 150-450 [facility] Comment on above: Performed By: #### A MY, CMP, LIPA #### [facility] [address] [place] [address] Dr. Lawrence Wayne RBC 4.69 106/ul Normal 4.20-5.40 [facility] Comment on above: Performed By: #### A MY, CMP, LIPA #### [facility] [address] [address] [address] Lawrence Wayne WBC 8.8 103/ul Normal 4.0-11.0 [facility] Comment on above: Performed By: #### A MY CMP, LIPA #### [facility] [address] [address] [address] Lawrence Wayne CRPon 08-09-2021 CRP [Mass/Vol] mg/L Normal <=1.0 [facility] Comment on above: Performed By: #### A MY, CMP, LIPA #### [facility] [address] [address] [address] Lawrence Wayne IRONon 08-09-2021 Iron [Mass/Vol] 83.0 ug/dL Normal 37.0-170.0 [facility] Comment on above: Performed By: #### A MY CMP, LIPA #### [facility] [address] [address] [address] Lawrence Wayne SED RATE WESTERGRENon 2021 SED RATE 16 mm/hr Normal <=30 [facility] Comment on above: Performed By: #### S EDR ####[facility] [address] [address]Dr[address] Lawrence Wayne URIC ACID SERUMon 08-09-2021 Urate [Mass/Vol] 3.4 mg/dL Normal 2.5-6.2 [facility] Comment on above: Performed By: #### A GARTH, CMP, LIPA #### [facility] [address] [address] [address] Lawrence Wayne XR CSPINE MIN 4 [...] by: TYRELL MOREJON Date: 2021-08-09 14:37 Normal [facility] H PYLORI ANTIBODY IGGon 06-16 H. PYLORI IGG ABS 0.13 Index Value Normal 0.00-0.79 [facility] Comment on above: Result Comment: Nega tive <0.80 Equivocal 0.80 - 0.89 Positive >0.89 Performed By: #### A MY, CMP, LIPA #### [facility] [address] [place] [address] Dr. Lawrence Wayne AMYLASEon 07-11-2021 Amylase [Catalytic activity/Vol] 100 U/L Normal 31-110 [facility] Comment on above: Performed By: #### A MY, CMP, LIPA #### [facility] [address] [place] [address] Dr. Lawrence Wayne CBC AUTO DIFFon 07-11-2021 BASO # 0.1 103/ul Normal 0.0-0.1 [facility] Comment on above: Performed By: #### A MY, CMP, LIPA #### [facility] [address] [place] [address] Dr. Lawrence Wayne Basophils/100 WBC (Bld) 0.7 % Normal 0.2-2.0 [facility] Comment on above: Performed By: #### A MY, CMP, LIPA #### [facility] [address] [place] [address] Dr. Lawrence Wayne EO # 0.1 103/ul Normal 0.0-0.7 [facility] Comment on above: Performed By: #### A MY, CMP, LIPA #### [facility] [address] [place] [address] Dr. Lawrence Wayne Eosinophils/100 WBC (Bld) 1.2 % Normal 0.9-7.0 [facility] Comment on above: Performed By: #### A MY, CMP, LIPA #### [facility] [address] [place] [address] Dr. Lawrence Wayne Erythrocyte distribution width (RBC) [Ratio] 13.9 % Normal 11.0-15.0 [facility] Comment on above: Performed By: #### A MY, CMP, LIPA #### [facility] [address] [address] [address] Lawrence Wayne Hematocrit (Bld) [Volume fraction] 45.9 % Normal 36.0-48.0 [facility] Comment on above: Performed By: #### A MY, CMP, LIPA #### [facility] [address] [place] [address] Dr. Lawrence Wayne Hemoglobin (Bld) [Mass/Vol] 14.9 g/dL Normal 12.0-16.0 [facility] Comment on above: Performed By: #### A MY, CMP, LIPA #### [facility] [address] [place] [address] Dr. Lawrence Wayne IG # 0.03 10e3/ul Normal 0.00-0.03 [facility] Comment on above: Performed By: #### A MY, CMP, LIPA #### [facility] [address] [place] [address] Dr. Lawrence Wayne IG % 0.4 % Normal 0.0-0.5 [facility] Comment on above: Performed By: #### A MY, CMP, LIPA #### [facility] [address] [place] [address] Dr. Lawrence Wayne LYMPH # 2.2 103/ul Normal 1.2-3.8 [facility] Comment on above: Performed By: #### A MY, CMP, LIPA #### [facility] [address] [place] [address] Dr. Lawrence Wayne Lymphocytes/100 WBC (Bld) 29.0 % Normal 20.5-60.0 [facility] Comment on above: Performed By: #### A MY, CMP, LIPA #### [facility] [address] [place] [address] Dr. Lawrence Wayne MANUAL DIFF REQ NO Normal [facility] Comment on above: Performed By: #### A MY, CMP, LIPA #### [facility] [address] [place] [address] Dr. Lawrence Wayne MCH (RBC) [Entitic mass] 29.8 pg Normal 26.7-34.0 [facility] Comment on above: Performed By: #### A MY, CMP, LIPA #### [facility] [address] [place] [address] Dr. Lawrence Wayne MCHC (RBC) [Mass/Vol] 32.5 g/dL Normal 29.9-35.2 [facility] Comment on above: Performed By: #### A MY, CMP, LIPA #### [facility] [address] [place] [address] Dr. Lawrence Wayne MCV (RBC) [Entitic vol] 91.8 fL Normal 81.0-99.0 [facility] Comment on above: Performed By: #### A MY, CMP, LIPA #### [facility] [address] [place] [address] Dr. Lawrence Wayne MONO # 0.9 103/ul Critically high 0.3-0.8 [facility] Comment on above: Performed By: #### A MY, CMP, LIPA #### [facility] [address] [place] [address] Dr. Lawrence Wayne Monocytes/100 WBC (Bld) 11.7 % Normal 1.7-12.0 [facility] Comment on above: Performed By: #### A MY, CMP, LIPA #### [facility] [address] [place] [address] Dr. Lawrence Wayne NEUT # 4.3 103/ul Normal 1.4-6.5 [facility] Comment on above: Performed By: #### A MY, CMP, LIPA #### [facility] [address] [place] [address] Dr. Lawrence Wayne Neutrophils/100 WBC (Bld) 57.0 % Normal 43.0-75.0 [facility] Comment on above: Performed By: #### A MY, CMP, LIPA #### [facility] [address] [place] [address] Dr. Lawrence Wayne Platelet mean volume (Bld) [Entitic vol] 8.7 fL Critically low 9.5-13.5 [facility] Comment on above: Performed By: #### A MY, CMP, LIPA #### [facility] [address] [place] [address] Dr. Lawrence Wayne PLT 351 103/ul Normal 150-450 [facility] Comment on above: Performed By: #### A MY, CMP, LIPA #### [facility] [address] [address] [address] Lawrence Wayne RBC 5.00 106/ul Normal 4.20-5.40 [facility] Comment on above: Performed By: #### A MY, CMP, LIPA #### [facility] [address] [place] [address] Dr. Lawrence Wayne WBC 7.6 103/ul Normal 4.0-11.0 [facility] Comment on above: Performed By: #### A MY, CMP, LIPA #### [facility] [address] [place] [address] Dr. Lawrence Wayne LIPASEon 07-11-2021 Lipase [Catalytic activity/Vol] 93.0 U/L Normal 23.0-300.0 [facility] Comment on above: Performed By: #### A MY, CMP, LIPA #### [facility] [address] [place] [address] Dr. Lawrence Wayne PROF 14(COMP METB)on 022 Albumin [Mass/Vol] 4.1 g/dL Normal 3.5-5.[address] [facility] Comment on above: Performed By: #### A MY, CMP, LIPA #### [facility] [address] [place] [address] Dr. Lawrence Wayne Albumin/Globulin [Mass ratio] 1.1 {ratio} Normal [facility] Comment on above: Performed By: #### A MY, CMP, LIPA #### [facility] [address] [place] [address] Dr. Lawrence Wayne ALP [Catalytic activity/Vol] 101 U/L Normal 38-126 [facility] Comment on above: Performed By: #### A MY, CMP, LIPA #### [facility] [address] [address] [address] Lawrence Wayne ALT [Catalytic activity/Vol] 38 U/L Normal 9-52 [facility] Comment on above: Performed By: #### A MY, CMP, LIPA #### [facility] [address] [address] [address] Lawrence Wayne Anion gap [Moles/Vol] 12.5 mmol/L Normal Th [facility] Comment on above: Performed By: #### A MY, CMP, LIPA #### [facility] [address] [address] [address] Lawrence Wayne AST [Catalytic activity/Vol] 25 U/L Normal 14-36 [facility] Comment on above: Performed By: #### A MY, CMP, LIPA #### [facility] [address] [place] [address] Dr. Lawrence Wayne Bilirubin [Mass/Vol] 0.8 mg/dL Normal 0.2-1.3 [facility] Comment on above: Performed By: #### A MY, CMP, LIPA #### [facility] [address] [place] [address] Dr. Lawrence Wayne Calcium [Mass/Vol] 9.9 mg/dL Normal 8.4-10.[address] [facility] Comment on above: Performed By: #### A MY, CMP, LIPA #### [facility] [address] [place] [address] Dr. Lawrence Wayne Chloride [Moles/Vol] 98 mmol/L Normal 98-107 [facility] Comment on above: Performed By: #### A MY, CMP, LIPA #### [facility] [address] [place] [address] Dr. Lawrence Wayne CO2 [Moles/Vol] 26.6 mmol/L Normal 22.0-30.0 [facility] Comment on above: Performed By: #### A MY, CMP, LIPA #### [facility] [address] [place] [address] Dr. Lawrence Wayne Creatinine [Mass/Vol] 1.12 mg/dL Critically high 0.52-1.04 [facility] Comment on above: Performed By: #### A MY, CMP, LIPA #### [facility] [address] [address] [address] Lawrence Wayne EGFR-AF [place] 59 mL/min/1.73m2 Critically low >=60 [facility] Comment on above: Performed By: #### A MY, CMP, LIPA #### [facility] [address] [address] [address] Lawrence Wayne EGFR-NON AF [place] 49 mL/min/1.73m2 Critically low >=60 [facility] Comment on above: Performed By: #### A MY, CMP, LIPA #### [facility] [address] [place] [address] Dr. Lawrence Wayne Globulin (S) [Mass/Vol] 3.7 g/dL Normal [facility] Comment on above: Performed By: #### A MY, CMP, LIPA #### [facility] [address] [place] [address] Dr. Lawrence Wayne Glucose [Mass/Vol] 117 mg/dL Critically high 74-106 T [facility] Comment on above: Performed By: #### A MY, CMP, LIPA #### [facility] [address] [place] [address] Dr. Lawrence Wayne Potassium [Moles/Vol] 4.1 mmol/L Normal 3.4-5.0 [facility] Comment on above: Performed By: #### A MY, CMP, LIPA #### [facility] [address] [address] [address] Lawrence Wayne Protein [Mass/Vol] 7.8 g/dL Normal 6.1-8.[address] [facility] Comment on above: Performed By: #### A MY, CMP, LIPA #### [facility] [address] [address] [address] Lawrence Wayne Sodium [Moles/Vol] 133 mmol/L Critically low 137-145 Th [facility] Comment on above: Performed By: #### A MY, CMP, LIPA #### [facility] [address] [place], [place] [address] Dr. Lawrence Wayne Urea nitrogen [Mass/Vol] 9.0 mg/dL Normal 7.0-17.0 [facility] Comment on above: Performed By: #### A MY, CMP, LIPA #### [facility] [address] [place], [place] [address] Dr. Lawrence Wayne Urea nitrogen/Creatinine [Mass ratio] 8.0 mg/mg Normal [facility] Comment on above: Performed By: #### A MY, CMP, LIPA #### [facility] [address] [place], [place] [address] Dr. Lawrence Wayne Vital Signs Date Time Vital Sign Value Performing Clinician Thadi boris 05-27-2022 15:00-0500 Body height 160.02 cm Prasad Isabel Other [facility] Other 05-27-2022 15:00-0500 Body mass index (BMI) [Ratio] 23.56 kg/m2 Prasad Isabel Other [facility] Other 05-27-2022 15:00-0500 Body weight 60.33 kg Prasad Isabel Other [facility] Other Encounters Encounter Date Encounter Type Care Provider Facility Start: 01-18-2024 End: 01-18-2024 ambulatory Cindy Phan Facility:[facility] Start: 01-11-2024 End: 01-11-2024 ambulatory CINDY PHAN Not Available Start: 11-16-2023 End: 11-16-2023 ambulatory CINDY PHAN Not Available Start: 11-02-2023 End: 11-02-2023 ambulatory JASVIR SMILEY Not Available Start: 10-08-2023 End: 10-08-2023 ambulatory MIGUEL ÁNGEL HER Not Available Start: 07-27-2023 Bamboo flowsheet Cindy rivero DO Work Phone: [facility] Start: 07-27-2023 Bamboo flowsheet Cindy rivero DO Work Phone: [facility] Start: 07-27-2023 End: 07-27-2023 ambulatory CINDY PHAN Not Available Start: 07-01-2022 End: 07-02-[address] ANITHA MCGREGOR Facility:[facility] Start: 06-23-2022 End: 06-23-2022 ambulatory ANITHA MCGREGOR Facility:[facility] Start: 06-23-2022 End: 06-23-2022 ambulatory Benjamin Moore PA-C Work Phone: [facility] Comment on above: Fibromyalgia (Primar y Dx); Cervicalgia Start: 06-23-2022 End: 06-23-2022 Telemedicine consultation with patient Benjamin Moore PA-C Work Phone: [facility] Start: 06-17-2022 End: 06-17-[address] JULIANN ROGER Facility:[facility] Start: 06-03-2022 End: 06-03-2022 ambulatory Bentley Bragg Other [facility] Other Start: 06-03-2022 Chart abstracting Unk (Historical) N eurology Start: 06-03-2022 Telephone encounter Bentley Bragg [employer] Start: 05-27-2022 End: 05-27-2022 ambulatory Prasad Isabel Other [facility] Other Start: 05-27-2022 Office outpatient ne w 30 minutes Prasad Isabel [facility] Start: 05-20-2022 End: 05-21-[address] ANITHA MCGREGOR Facility:[facility] Start: 05-07-2022 End: 05-08-[address] ANITHA MCGREGOR Facility:[facility] Start: 03-26-2022 End: 03-27-[address] MARK RIOS Facility:[facility] Start: 03-24-2022 End: 03-25-[address] ANITHA MCGREGOR Facility:[facility] Start: 02-18-2022 End: 02-19-[address] ANITHA MCGREGOR Facility:[facility] Start: 02-06-2022 End: 02-07-[address] ANITHA MCGREGOR Facility:[facility] Start: 08-29-2021 End: 08-30-[address] ANITHA MCGREGOR Facility:[facility] Start: 08-27-2021 End: 08-28-[address] ANITHA MCGREGOR Facility:[facility] Start: 08-21-2021 End: 08-22-[address] ANITHA MCGREGOR Facility:[facility] Start: 08-09-2021 End: 08-10-[address] ANITHA MCGREGOR Facility:[facility] Start: 07-11-2021 End: 07-12-[address] ANITHA MCGREGOR Facility:[facility] Start: 07-06-2018 End: 07-06-2018 Patient encounter procedure Kings Thomson Facility:[facility] Procedures Date Procedure Procedure Detail Performing Clinician Start: 07-27-2023 End: 07-27-2023 Ophth medical xm&eval compre new pt 1/> vst Age-related nuclear cataract of both eyes Cindy Phan DO Work Phone: Comment on above: Age-related nuclear cataract of both eyes (Primary Dx) Start: 03-26-2022 Mammography Cindy cullen DO Work Phone: Plan of Treatment Date Care Activity Detail Author Start: 01-11-2024 End: 01-11-2024 Patient encounter procedure 01/11/2024 1:15 PM EDT Office Visit [facility] [address] [place] [address] Cindy Phan DO [address] [place], [place] [id number] [facility] Start: 07-27-2023 End: 07-27-2023 Patient encounter procedure 07/27/2023 2:15 PM EST Office Visit [facility] [address] [place] [address] Cindy Phan DO [address] [place] [address] Arrived [facility] Comment on above: Arrived Start: 03-26-2023 Screening for malign ant neoplasm of breast Mammogram [facility] Start: 02-13-2023 Influenza vaccination Influenza Vacc ine (#1) [facility] Start: 06-15-2022 ADVANCE DIRECTIVE DISCUSSION ADVANCE DIRECTIVE DISCUSSION [facility] Start: 06-15-2022 DEPRESSION ASSESSMENT DEPRESSION ASS ESSMENT [facility] Start: 02-13-2022 Influenza vaccination INFLUENZA (#1) [facility] Start: 12-08-2021 COVID-19 VACCINE (5 - Booster for Moderna series) COVID-19 VACCINE (5 - Booster for Moderna series) [facility] Start: 06-15-2021 ADVANCE DIRECTIVE DISCUSSION ADVANCE DIRECTIVE DISCUSSION [facility] Start: 06-15-2021 DEPRESSION ASSESSMENT DEPRESSION ASS ESSMENT [facility] Start: 01-11-2021 BONE DENSITY BONE DENSITY [facility] Start: 01-11-2021 Pneumococcal Vaccine : 65+ Years (1 - PCV) Pneumococcal Vaccine: 65+ Years (1 - PCV) [facility] Start: 01-11-2021 PNEUMOCOCCAL: 65+ (1 - PCV) PNEUMOCOCCAL: 65+ (1 - PCV) [facility] Start: 09-20-2012 DIABETES SCREEN DIABETES SCREEN [facility] Start: 01-11-2006 SHINGRIX VACCINE (1 of 2) SHINGRIX V ACCINE (1 of 2) [facility] Start: 01-11-2001 COLOGUARD (FIT-DNA) COLOGUARD (FIT-D NA) [facility] Start: 01-11-[address] [facility] Start: 01-11-2001 COLORECTAL CANCER SCREENING COLORECTAL CANCER SCREENING [facility] Start: 01-11-[address] COLONOGRAPHY [facility] Start: 01-11-2001 FECAL OCCULT BLOOD FECAL OCCULT BLOO D [facility] Start: 01-11-2001 [address]EN LIPID SCREEN [facility] Start: 01-11-2001 SIGMOIDOSCOPY SIGMOIDOSCOPY [facility] Start: [address] [facility] Start: 01-11-1975 Urine microalbumin profile DTAP,TDAP,TD (1 - Tdap) [facility] Start: 01-11-1974 HEPATITIS C SCREENING HEPATITIS C SC IESHA [facility] Start: 1956 COVID-19 VACCINE (#1) COVID-19 VACCI NE (#1) [facility] Start: 1956 Screening for malign ant neoplasm of colon [facility] Immunizations Immunization Date Immunization Notes Care Provider Bill dorsey 04-09-2022 influenza virus vacc ine, unspecified formulation Cindy Phan DO Work Phone: [facility] Payers Date Payer Category Payer Medicare ANTHEM MEDICARE ADVANTAGE ANTHEM MEDICARE ADVANTAGE [id number] 2023-Present [address] [place] [address] [id number] 2021 Unknown ANTHEM BLUE CROS S AND BLUE SHIELD ANTHEM MEDIBLUE HMO [id number] 2021-Present [phone] [address] [place] [address] HMO [id number] 2018 Self-pay 2018 Unknown [id number] 1959 Unknown [id number] 1956 Unknown [id number] 1956 Unknown [id number] 1956 Unknown [id number] [id number] 1956 Unknown [id number] [id number] 1956 Unknown [id number] [id number] 1956 Unknown [id number] [id number] 1956 Unknown [id number] [id number] 1956 Unknown [id number] [id number] 1956 Unknown [id number] [id number] 1956 Unknown [id number] [id number] 1956 Unknown [id number] [id number] 1956 Unknown [id number] [id number] 1956 Unknown [id number] 2.16.840.1.136838.3.579.2.593 1956 Unknown [id number] 2.16.840.1.061174.3.579.2.125 9 1956 Unknown [id number] 9 1955 Unknown [id number] 9 1955 Unknown [id number] 9 1956 Unknown [id number] 9 1956 Unknown [id number] 1956 Unknown [id number] Unknown [id number] Social History Date Type Detail Facility Start: 04-10-2011 End: 07-27-2023 Tobacco smoking status ILIS Never smoked tobacco [facility] Start: 04-10-2011 End: 07-27-2023 Tobacco use and exposure Smokeless tobacco non-user [facility] Start: 05-13-2018 Alcohol intake Current non-dr sole inker of alcohol (finding) [facility] Start: 1955 Sex Assigned At Not on file [facility] Sex Assigned At [facility] Other Tobacco smoking status [facility] Tobacco smoking consumption unknown [facility] Clinical Notes 05-27-2022 to 07-27-2023 Cindy Phan, - 07/27/2023 2:15 PM Jacklyn Moore PA-C - 06/23/2022 7:27 AM Jonelle Vasquez APRN.EMPLOYEE DEVELOPMENT MANAGER - 06/04/2022 11:10 AM Giovanna Khalil Research Coordinator - 06/03/2022 1:17 PM EST [...] different lens options were explained including the [id number] fees for any upgrades. Intraocular lens (IOL) [...] of care will be shared with Dr. Mansfield. Cataract Surgery for OU will take place - in the future after a wash out of at least 5 months from rigid gas permeable (RGP) lenses occurred. documented in this encounter [facility] 06-23-2022 Note HNO ID: [id number] Author: Benjamin Moore PA-C Service: ? Author Type: Physician Green Inspector Type: Progress Notes Filed: 06/23/2022 7:54 AM Note Text: AMBULATORY TELEPHONE VISIT Skip Hong has consented to this telephone encounter. Patient was unable to connect to [employer] Virtual Visit - call to patient to [...] Time Spent: 45 minutes Benjamin Moore PA-C [facility] 06-23-2022 History of Present illness Narrative AMBULATORY TELEPHONE VISIT Skip Hong has consented to this telephone encounter. Patient was unable to connect to [employer] Virtual Visit - call to patient to [...] Benjamin Moore PA-C documented in this encounter [facility] 06-04-2022 Note HNO ID: [id number] Author: Sangeetha Vasquez APRN.EMPLOYEE DEVELOPMENT MANAGER Service: ? Author Type: Nurse Practitioner Type: Progress Notes Filed: 06/04/2022 11:31 AM Note Text: Per Triage: Skip Hong is a 67 year old female that requests evaluation of cervical radiculopathy. Per review, they have symptoms of neck pain, right arm pain and numbness, trouble using hands. Referring Provider Dr. Anitha Mcgregor Is this a 2nd opinion? Yes CMT: [...] person or virtual visit whatever patient preference. [facility] 06-04-2022 History of Present illness Narrative Per Triage: Skip Hong is a 67 year old female that requests evaluation of cervical radiculopathy. Per review, they have symptoms of neck pain, right arm pain and numbness, trouble using hands. Referring Provider Dr. Anitha Mcgregor Is this a 2nd opinion? Yes CMT: [...] Health Provider or Pain Management Provider at [facility]? No If answer is YES please schedule directly with surgeon, triage does not need to be completed. Is this a self-referral No If not, who is the Referring Provider Dr. nAitha Mcgregor's office referring the patient to be seen [...] facility where the MRI/CT/myelogram was completed: [place] [address] MRI/CT/myelogram viewable in Epic: No If not, please provide [phone] to fax in imaging reports for review. Also, please inform patient to hand carry imaging disc to appointment. XR (spine) within 12 months: Yes If YES, please ask for the name/address of the facility where the XR was completed: [place] [address] Dr. Humphreys's patients: Have you had previous EMG/Nerve Conduction [...] injections and/or physical therapy was completed Injections: [facility] [address] [place] [address] PT: unable to recall facility Have you [...] where the surgery was completed: Additional Comments [phone] documented in this encounter [facility] 06-03-2022 Note HNO ID: [id number] Author: Celeste Khalil Research Coordinator Service: ? Author Type: Research Type: Progress Notes Filed: 06/04/2022 11:31 AM Note Text: Patient name: Skip Hong Are you being referred by a [place] for Spine Health Provider or Pain Management Provider at [facility]? No If answer is YES please schedule directly with surgeon, triage does not need to be completed. Is this a self-referral No If not, who is the Referring Provider Dr. Anitha Mcgregor's office referring the patient to be seen [...] facility where the MRI/CT/myelogram was completed: [place] [address] MRI/CT/myelogram viewable in Epic: No If not, please provide [phone] to fax in imaging reports for review. Also, please inform patient to hand carry imaging disc to appointment. XR (spine) within 12 months: Yes If YES,? please ask for the name/address of the facility where the XR was completed: [facility] [address] [place] [address] Dr. Humphreys's patients: Have you had previous EMG/Nerve Conduction [...] injections and/or physical therapy was completed Injections: [facility] [address] [place] [address] PT: unable to recall facility Have you [...] where the surgery was completed: Additional Comments [phone] [facility] 05-27-2022 Evaluation note Encounter Date Diagnosis [...] and agrees. A referral will be sent [facility] Other evaluation note* Diagnosis Fibromyalgia- Primary Mylagia and myositis, unspecified Cervicalgia [facility] note[facility] InformationN[place] Other Evaluation note* Diagnosis Age-related nuclear cataract [...] History arthroscopy shoulder Hospitalization History see above [facility] Other reason for visit NarrativeReferral update - [facility] [employer] Other Summary Purpose Family History No Family [...] Diagnosis 1 Neck pain (M54.2) Referral Organization [facility] urosurgery Referring Provider First Name Prasad Referring Provider Last Name Maame Referring Provider Specialty Neurologica l Surgery Referred Organization [facility] Pain Managemen t Referred Provider Bentley Bragg Referred Address [address] [place] [phone] Referred Provider Specialty Pain Medicin e Referral Priority Routine General Notes Jenifer Ramírez 022 08:31:51 AM >Received today and sent P2P Esthela Navarro 06/03/2022 02:35:54 PM >fyi patient declined seeing Dr Bragg, she stated she has returned to her previous PM provider in [place] Jenifer Ramírez 06/03/2022 02:59:27 PM >OK, thank you for the update. Telephone encounter was sent Additional Source Comments INFORMATION SOURCE (unrecogn ized section and content) DATE CREATED AUTHOR 07/22/2018 [facility] DATE CREATED AUTHOR AUTHOR'S ORGANIZ ATION 06/23/2022 [facility] DATE CREATED AUTHOR AUTHOR'S ORGANIZ ATION 07/02/2022 [facility] DATE CREATED AUTHOR AUTHOR'S ORGANIZ ATION 01/13/2024 [facility] dical [facility] DATE CREATED AUTHOR AUTHOR'S ORGANIZ ATION 01/19/2024 [facility] DATE CREATED AUTHOR AUTHOR'S ORGANIZ ATION 01/20/2024 [facility] DATE CREATED AUTHOR AUTHOR'S ORGANIZ ATION 01/27/2024 [facility] Source Comments (unrecognize d section and content) In the event this informatio n is protected by the Federal Confidentiality of Alcohol and Drug Abuse Patient Records regulations: The Federal rules restrict any use of the information to criminally investigate or prosecute any alcohol or drug abuse patient.[facility] the event this information is protected by the Federal Confidentiality of Alcohol and Drug Abuse Patient Records regulations: The Federal rules restrict any use of the information to criminally investigate or prosecute any alcohol or drug abuse patient.[facility] Care Teams (unrecognized sec tion and content) Forestry Aid Technician Relationship Specialty Start Date End Date Anitha Mcgregor MD [address] [place] [facility] [address] PCP - General 09/07/09 Luli Roy (Hist), MD [address] [facility], [place] [id number] Referring Gastroenterology 05/04/18 Forestry Aid Technician Relationship Specialty Start Date End Date Anitha Mcgregor MD [address] [place] [place] [address] PCP - General 09/07/09 Luli Roy (Hist), MD [address] [place], [place] [id number] Referring Gastroenterology 05/04/18 Forestry Aid Technician Relationship Specialty Start Date End Date Anitha Mcgregor MD [address] [facility] [place] [address] PCP - General Family Medicine 07/27/23 Reason [...] ON THE PRIMARY CLINICAL RECORDS. [facility] [employer] provides no warranty or guarantee of the accuracy or completeness of information in this document.
== END 2024-02-26 11:29 | disposition home or self-care (01) ==
LOC: RAD 11:30
PROVIDERS: PCP Family Medicine; Visit Provider Family Medicine
DX: S06.0X9A Concussion with loss of consciousness of unspecified duration, initial encounter (principal)
CPT/HCPCS: 70450; 72125

== ENCOUNTER 2024-03-10 10:33 | Outpatient (OUT) | payer MEDICARE, SELFPAY ==
--- OUTSIDE RECORDS SUMMARY | 2024-03-10 10:51 | XMS_ITS | CCD ---
Author Organization [facility] Care Team Providers Care Service Trainer Name Role Phone [place] Attending Unavailable Anitha Mcgregor Primary Care Unavailable Anitha Mcgregor MD Primary Care Provider [phone] Luli Roy MD (Hist) Unavailable [phone] ANITHA MCGREGOR Primary Care Unavailable BENJAMIN MOORE [...] Provider UnavailAnitha Montague MD Primary Care Provider [phone] CINDY PHAN Attending Unavailable ORAL MANSFIELD Referring [...] Allergy 06-03-20 22 Other: See Comments, Rash [facility] (3 sources) Adhesive Tape; Translations: [ADHESIVE TAPE (ROSINS)] Allergy to substance Other: See Comments [facility] (7 sources) Aspirin; Translations: [ASPIRIN] Drug Allergy 09-14-19 10 Unknown [facility] (3 sources) Butorphanol; Translations: [BUTORPHANOL TARTRATE] Drug Allergy 09-14-19 10 Other: See Comments [facility] (8 sources) Ciprofloxacin; Translations: [CIPROFLOXACIN] Drug Allergy 06-03-20 22 Other: See Comments, Rash [facility] (3 sources) Etodolac; Translations: [ETODOLAC] Drug Allergy 09-14-19 10 [facility] (3 sources) homatropine / HYDROcodone; Translations: [HYDROCODONE-HOMATR OPINE] Drug Allergy Other: See Comments [facility] (3 sources) HYDROmorphone; Translations: [HYDROMORPHONE (BULK)] Drug Allergy 04-10-20 11 Rash [facility] (8 sources) Morphine; Translations: [MORPHINE] Drug Allergy 09-14-19 10 Unknown [facility] (3 sources) Promethazine; Translations: [PROMETHAZINE HCL] Drug Allergy 09-14-19 10 [facility] (1 source) Acetaminophen / oxyCODONE Drug Allergy [facility] (1 source) Aspirin Drug Allergy [facility] (5 sources) Butorphanol; Translations: [Stadol] Drug Allergy Unknown [facility] (1 source) Ciprofloxacin Drug Allergy [facility] (1 source) Desonide Drug Allergy [facility] (3 sources) Etodolac; Translations: [Lodine] Drug Allergy [facility] (1 source) homatropine Drug Allergy [facility] (3 sources) HYDROmorphone; Translations: [Dilaudid] Drug Allergy [facility] (3 sources) Levamisole; Translations: [Phenergan] Drug Allergy [facility] (1 source) Morphine Drug Allergy [facility] (1 source) Bleach (Sodium Hypochlorite) Drug allergy (disorder) 01-11-19 56 [facility] (3 sources) HYDROmorphone Drug Allergy 04-10-20 11 Rash [facility] Other (2 sources) Promethazine Drug Allergy Unknown [facility] Other (2 sources) traMADol Drug Allergy Unknown [facility] Other (1 source) Aluminum aspirin Drug Allergy 09-14-19 10 Anaphylaxis [facility] Work Phone: (1 source) Butorphanol Drug Allergy 09-14-19 10 Rash [facility] (1 source) Etodolac Propensity to adverse reactions 09-14-19 10 Rash [facility] (1 source) Promethazine Drug Allergy 09-14-19 10 [facility] (1 source) Sulfamethoxazole / Trimethoprim Drug Allergy 06-03-20 [facility] (1 source) Theophylline Drug Allergy 06-03-20 [facility] (2 sources) Acetaminophen / oxyCODONE; Translations: [Percocet 5/325] Drug Allergy [facility] (2 sources) Adhesive Tape; Translations: [Tape] Propensity to adverse reactions (disorder) [facility] (2 sources) homatropine / HYDROcodone; Translations: [Hydromet] Drug Allergy [facility] Medications Current Medications Medication Drug [...] th every 8 hours as needed. amylase 550605 unt / lipase 88008 unt / protease 25561 unt delayed release oral capsule (2 sources) [...] affected ar ea twice daily. 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; Translations: [OTH [facility] CURRENT DRUG THERAPY] Onset: 06-19-19 Episodic Other [...] mGy = na DAP = na Normal [facility] BMPon 01-18-2024 Anion gap [Moles/Vol] 10 mmol/L Normal 6-16 [facility] Comment on above: Performed By: #### 2 [id number] #### [facility] [address] [place] [address] Calcium [Mass/Vol] 9.6 mg/dL Normal 8.9-11.1 [facility] Comment on above: Performed By: #### 2 [id number] #### [facility] [address] [place] [address] Chloride [Moles/Vol] 107 mmol/L Normal 101-111 [facility] Comment on above: Performed By: #### 2 [id number] #### [facility] [address] [place] [address] CO2 [Moles/Vol] 26 mmol/L Normal 21-31 [facility] Comment on above: Performed By: #### 2 [id number] #### [facility] [address] [place] [address] Creatinine [Mass/Vol] 0.9 mg/dL Normal 0.5-1.3 [facility] Comment on above: Performed By: #### 2 [id number] #### [facility] [address] [place] [address] Glucose [Mass/Vol] 95 mg/dL Normal 55-199 [facility] Comment on above: Performed By: #### 2 [id number] #### [facility] [address] [place] [address] Potassium [Moles/Vol] 3.9 mmol/L Normal 3.5-5.3 [facility] Comment on above: Performed By: #### 2 [id number] #### [facility] [address] [place] [address] Sodium [Moles/Vol] 139 mmol/L Normal 135-145 [facility] Comment on above: Performed By: #### 2 [id number] #### [facility] [address] [place] [address] Urea nitrogen [Mass/Vol] 9 mg/dL Normal 5-21 [facility] Comment on above: Performed By: #### 2 768781 #### [facility] [address] [place] [address] Urea nitrogen/Creatinine [Mass ratio] 10 No Units Normal 10-20 [facility] Comment on above: Performed By: #### 2 [id number] #### [facility] [address] [place] [address] CBC w/Indiceson 01-18-2024 Erythrocyte distribution width (RBC) [Ratio] 14.5 % High 10.9-14.2 [facility] Comment on above: Performed By: #### 2 [id number] #### [facility] [address] [place] [address] Hematocrit (Bld) [Volume fraction] 43.1 % Normal 34.0-46.0 [facility] Comment on above: Performed By: #### 2 [id number] #### [facility] [address] [place] [address] Hemoglobin (Bld) [Mass/Vol] 14.5 g/dL Normal 12.0-16.0 [facility] Comment on above: Performed By: #### 2 [id number] #### [facility] [address] [place] [address] MCH (RBC) [Entitic mass] 30.6 pg Normal 27.0-34.0 [facility] Comment on above: Performed By: #### 2 [id number] #### [facility] [address] [place] [address] MCHC (RBC) [Mass/Vol] 33.6 g/dL Normal 31.4-36.0 [facility] Comment on above: Performed By: #### 2 [id number] #### [facility] [address] [place] [address] MCV (RBC) [Entitic vol] 91.0 fL Normal 80.0-100.0 [facility] Comment on above: Performed By: #### 2 [id number] #### [facility] [address] [place] [address] Platelet mean volume (Bld) [Entitic vol] 7.5 fL Normal 6.4-10.8 [facility] Comment on above: Performed By: #### 2 [id number] #### [facility] [address] [place] [address] Platelets (Bld) [#/Vol] 300.0 E9/L Normal 150.0-500.0 [facility] Comment on above: Performed By: #### 2 [id number] #### [facility] [address] [place] [address] RBC (Bld) [#/Vol] 4.7 E12/L Normal 4.3-5.9 [facility] Comment on above: Performed By: #### 2 [id number] #### [facility] [address] [place] [address] RBC size Nom (Bld) NORMAL Invalid Interpretation Code [facility] Comment on above: Performed By: #### 2 [id number] #### [facility] [address] [place] [address] WBC corrected for nucl RBC Auto (Bld) [#/Vol] 5.9 E9/L Normal 4.0-11.0 [facility] Comment on above: Performed By: #### 2 [id number] #### [facility] [address] [place] [address] eGFRon 01-18-2024 eGFR 70 mL/min/1.73 m2 Normal >=59 [facility] Comment on above: Order Comment: Order added by Discern Expert. Performed By: #### 1 [id number] #### [facility] [address] [place] [address] AMYLASEon 07-01-2022 Amylase [Catalytic activity/Vol] 117 U/L Critically high 25-115 [facility] Comment on above: Performed By: #### T SH, T7, ALIYAH, LIPA, CMP ####[facility] [address] [place], [place] [address]DrKim Wayne CBC AUTO DIFFon 07-01-2022 BASO # 0.1 103/ul Normal 0.0-0.1 [facility] Comment on above: Performed By: #### C BC ####[facility] [address] [place], [place] [address]Dr. Lawrence Wayne Basophils/100 WBC (Bld) 0.6 % Normal 0.2-2.0 [facility] Comment on above: Performed By: #### C BC ####[facility] [address] [place] [address]Dr. Lawrence Wayne EO # 0.1 103/ul Normal 0.0-0.7 [facility] Comment on above: Performed By: #### C BC ####[facility] [address] [place], [place] [address]Dr. Lawrence Wayne Eosinophils/100 WBC (Bld) 0.7 % Critically low 0.9-7.0 [facility] Comment on above: Performed By: #### C BC ####[facility] [address] [place], [place] [address]Dr. Lawrence Wayne Erythrocyte distribution width (RBC) [Ratio] 13.6 % Normal 11.0-15.0 [facility] Comment on above: Performed By: #### C BC ####[facility] [address] [place], [place] [address]Dr. Lawrence Wayne Hematocrit (Bld) [Volume fraction] 45.6 % Normal 36.0-48.0 [facility] Comment on above: Performed By: #### C BC ####[facility] [address] [place], [place] [address]Dr. Lawrence Wayne Hemoglobin (Bld) [Mass/Vol] 15.4 g/dL Normal 12.0-16.0 [facility] Comment on above: Performed By: #### C BC ####[facility] [address] [place], [place] [address]Dr. Lawrence Wayne IG # 0.03 10e3/ul Normal 0.00-0.03 [facility] Comment on above: Performed By: #### C BC ####[facility] [address] [place], [place] [address]Dr. Lawrence Wayne IG % 0.4 % Normal 0.0-0.5 [facility] Comment on above: Performed By: #### C BC ####[facility] [address] [place] [id number]. Lawrence Tone LYMPH # 2.8 103/ul Normal 1.2-3.8 [facility] Comment on above: Performed By: #### C BC ####[facility] [address] [place] [address]Dr. Lawrence Tone Lymphocytes/100 WBC (Bld) 33.5 % Normal 20.5-60.0 [facility] Comment on above: Performed By: #### C BC ####[facility] [address] [place] [address]Dr. Lawrence Tone MANUAL DIFF REQ NO Normal [facility] Comment on above: Performed By: #### C BC ####[facility] [address] [place] [address]Dr. Lawrence Tone MCH (RBC) [Entitic mass] 30.1 pg Normal 26.7-34.0 [facility] Comment on above: Performed By: #### C BC ####[facility] [address] [place], [place] [address]Dr. Lawrence Tone MCHC (RBC) [Mass/Vol] 33.8 g/dL Normal 29.9-35.2 [facility] Comment on above: Performed By: #### C BC ####[facility] [address] [place] [address]Dr. Laraantonio Wayne MCV (RBC) [Entitic vol] 89.2 fL Normal 81.0-99.0 [facility] Comment on above: Performed By: #### C BC ####[facility] [address] [place], [place] [address]Dr. Lawrence Tone MONO # 0.8 103/ul Normal 0.3-0.8 [facility] Comment on above: Performed By: #### C BC ####[facility] [address] [place], [place] [address]Dr. Laraantonio Wayne Monocytes/100 WBC (Bld) 9.3 % Normal 1.7-12.0 [facility] Comment on above: Performed By: #### C BC ####[facility] [address] [place], [place] [address]Dr. Lawrence Wayne NEUT # 4.6 103/ul Normal 1.4-6.5 [facility] Comment on above: Performed By: #### C BC ####[facility] [address] [place] [address]Dr. Lawrence Wayne Neutrophils/100 WBC (Bld) 55.5 % Normal 43.0-75.0 [facility] Comment on above: Performed By: #### C BC ####[facility] [address] [place] [address]Dr. Lawrence Wayne Platelet mean volume (Bld) [Entitic vol] 8.6 fL Critically low 9.5-13.5 [facility] Comment on above: Performed By: #### C BC ####[facility] [address] [place] [address]Dr. Lawrence Wayne PLT 380 103/ul Normal 150-450 [facility] Comment on above: Performed By: #### C BC ####[facility] [address] [place] [address]Dr. Lawrence Wayne RBC 5.11 106/ul Normal 4.20-5.40 [facility] Comment on above: Performed By: #### C BC ####[facility] [address] [place] [address]Dr. Lawrence Wayne WBC 8.3 103/ul Normal 4.0-11.0 [facility] Comment on above: Performed By: #### C BC ####[facility] [address] [place] [address]Dr. Lawrence Wayne FREE THYROXINE INDEX T7on FTI 3.28 Normal 1.30-4.50 [facility] Comment on above: Performed By: #### T SH, T7, ALIYAH, LIPA, CMP ####[facility] [address] [place] [address]Dr. Lawrence Wayne T3U 36.0 % Normal 30.0-39.0 [facility] Comment on above: Performed By: #### T SH, T7, ALIYAH, LIPA, CMP ####[facility] [address] [place] [address]Dr. Lawrence Wayne T4 [Mass/Vol] 9.10 ug/dL Normal 4.80-13.90 [facility] Comment on above: Performed By: #### T SH, T7, ALIYAH, LIPA, CMP ####[facility] [address] [place] [address]Dr. Lawrence Wayne LIPASEon 07-01-2022 Lipase [Catalytic activity/Vol] 125.0 U/L Normal 73.0-393.0 [facility] Comment on above: Performed By: #### T SH, T7, ALIYAH, LIPA, CMP ####[facility] [address] [place] [address]Dr. Lawrence Wayne PROF 14(COMP METB)on 023 Albumin [Mass/Vol] 3.8 g/dL Normal 3.4-5.0 [facility] Comment on above: Performed By: #### T SH, T7, ALIYAH, LIPA, CMP ####[facility] [address] [place] [address]Dr. Lawrence Wayne Albumin/Globulin [Mass ratio] 1.1 {ratio} Normal [facility] Comment on above: Performed By: #### T SH, T7, ALIYAH, LIPA, CMP ####[facility] [address] [place] [address]Dr. Lawrence Wayne ALP [Catalytic activity/Vol] 104 U/L Normal 46-116 [facility] Comment on above: Performed By: #### T SH, T7, ALIYAH, LIPA, CMP ####[facility] [address] [place] [address]Dr. Lawrence Wayne ALT [Catalytic activity/Vol] 36 U/L Normal 14-59 [facility] Comment on above: Performed By: #### T SH, T7, ALIYAH, LIPA, CMP ####[facility] [address] [place] [address]Dr. Lawrence Wayne Anion gap [Moles/Vol] 11.7 mmol/L Normal [facility] Comment on above: Performed By: #### T SH, T7, ALIYAH, LIPA, CMP ####[facility] [address] [place] [address]Dr. Lawrence Wayne AST [Catalytic activity/Vol] 22 U/L Normal 15-37 [facility] Comment on above: Performed By: #### T SH, T7, ALIYAH, LIPA, CMP ####[facility] [address] [place] [address]Dr. Lawrence Wayne Bilirubin [Mass/Vol] 0.5 mg/dL Normal 0.2-1.0 [facility] Comment on above: Performed By: #### T SH, T7, ALIYAH, LIPA, CMP ####[facility] [address] [place] [address]Dr. Lawrence Wayne Calcium [Mass/Vol] 9.8 mg/dL Normal 8.5-10.1 [facility] Comment on above: Performed By: #### T SH, T7, ALIYAH, LIPA, CMP ####[facility] [address] [place], [place] [address]Dr. Lawrence Wayne Chloride [Moles/Vol] 102 mmol/L Normal 98-107 [facility] Comment on above: Performed By: #### T SH, T7, ALIYAH, LIPA, CMP ####[facility] [address] [place], [place] [address]Dr. Lawrence Wayne CO2 [Moles/Vol] 29.3 mmol/L Normal 21.0-32.0 [facility] Comment on above: Performed By: #### T SH, T7, ALIYAH, LIPA, CMP ####[facility] [address] [place], [place] [address]Dr. Lawrence Wayne Creatinine [Mass/Vol] 0.88 mg/dL Normal 0.55-1.02 [facility] Comment on above: Performed By: #### T SH, T7, ALIYAH, LIPA, CMP ####[facility] [address] [place] [address]Dr. Lawrence Wayne EGFR-AF LAO >60 Normal >=60 [facility] Comment on above: Performed By: #### T SH, T7, ALIYAH, LIPA, CMP ####[facility] [address] [place] [address]Dr. Lawrence Wayne EGFR-NON AF LAO >60 Normal >=60 [facility] Comment on above: Performed By: #### T SH, T7, ALIYAH, LIPA, CMP ####[facility] [address] [place] [address]Dr. Lawrence Wayne Globulin (S) [Mass/Vol] 3.5 g/dL Normal [facility] Comment on above: Performed By: #### T SH, T7, ALIYAH, LIPA, CMP ####[facility] [address] [place] [address]Dr. Lawrence Wayne Glucose [Mass/Vol] 98 mg/dL Normal 74-106 [facility] Comment on above: Performed By: #### T SH, T7, ALIYAH, LIPA, CMP ####[facility] [address] [place] [address]Dr. Lawrence Wayne Potassium [Moles/Vol] 3.9 mmol/L Normal 3.5-5.1 [facility] Comment on above: Performed By: #### T SH, T7, ALIYAH, LIPA, CMP ####[facility] [address] [place] [address]Dr. Lawrence Wayne Protein [Mass/Vol] 7.3 g/dL Normal 6.4-8.2 [facility] Comment on above: Performed By: #### T SH, T7, ALIYAH, LIPA, CMP ####[facility] [address] [place] [address]Dr. Laralan Wayne Sodium [Moles/Vol] 139 mmol/L Normal 136-145 [facility] Comment on above: Performed By: #### T SH, T7, ALIYAH, LIPA, CMP ####[facility] [address] [place] [address]Dr. Lawrence Wayne Urea nitrogen [Mass/Vol] 11.0 mg/dL Normal 7.0-18.0 [facility] Comment on above: Performed By: #### T SH, T7, ALIYAH, LIPA, CMP ####[facility] [address] [place] [id number]. Lawrence Wayne Urea nitrogen/Creatinine [Mass ratio] 12.5 mg/mg Normal [facility] Comment on above: Performed By: #### T SH, T7, ALIYAH, LIPA, CMP ####[facility] [address] [place] [address]DrKim Wayne TSHon 07-01-2022 TSH 1.744 uIU/mL Normal 0.358-3.740 [facility] Comment on above: Performed By: #### T SH, T7, ALIYAH, LIPA, CMP ####[facility] [address] [place] [address]DrKim Wayne CBC AUTO DIFFon 06-17-2022 BASO # 0.0 103/ul Normal 0.0-0.1 [facility] Comment on above: Performed By: #### A MY, CMP, LIPA #### [facility] [address] [place] [address] [address] Lawrence Wayne Basophils/100 WBC (Bld) 0.4 % Normal 0.2-2.0 [facility] Comment on above: Performed By: #### A MY, CMP, LIPA #### [facility] [address] [place] [address] [address] Lawrence Wayne EO # 0.0 103/ul Normal 0.0-0.7 [facility] Comment on above: Performed By: #### A MY, CMP, LIPA #### [facility] [address] [place] [address] [address] Lawrence Wayne Eosinophils/100 WBC (Bld) 0.8 % Critically low 0.9-7.0 [facility] Comment on above: Performed By: #### A MY, CMP, LIPA #### [facility] [address] [place] [address] [address] Lawrence Wayne Erythrocyte distribution width (RBC) [Ratio] 13.2 % Normal 11.0-15.0 [facility] Comment on above: Performed By: #### A MY, CMP, LIPA #### [facility] [address] [place] [address] [address] Lawrence Wayne Hematocrit (Bld) [Volume fraction] 43.1 % Normal 36.0-48.0 [facility] Comment on above: Performed By: #### A MY, CMP, LIPA #### [facility] [address] [place] [address] Dr. Lawrence Wayne Hemoglobin (Bld) [Mass/Vol] 15.1 g/dL Normal 12.0-16.0 [facility] Comment on above: Performed By: #### A MY, CMP, LIPA #### [facility] [address] [place] [address] Dr. Lawrence Wayne IG # 0.03 10e3/ul Normal 0.00-0.03 [facility] Comment on above: Performed By: #### A MY, CMP, LIPA #### [facility] [address] [place] [address] Dr. Lawrence Wayne IG % 0.6 % Critically high 0.0-0.5 [facility] Comment on above: Performed By: #### A MY, CMP, LIPA #### [facility] [address] [place] [address] Dr. Lawrence Wayne LYMPH # 1.1 103/ul Critically low 1.2-3.8 [facility] Comment on above: Performed By: #### A MY, CMP, LIPA #### [facility] [address] [place] [address] Dr. Lawrence Wayne Lymphocytes/100 WBC (Bld) 22.0 % Normal 20.5-60.0 [facility] Comment on above: Performed By: #### A MY, CMP, LIPA #### [facility] [address] [place] [address] Dr. Lawrence Wayne MANUAL DIFF REQ NO Normal [facility] Comment on above: Performed By: #### A MY, CMP, LIPA #### [facility] [address] [place] [address] Dr. Lawrence Wayne MCH (RBC) [Entitic mass] 30.3 pg Normal 26.7-34.0 [facility] Comment on above: Performed By: #### A MY, CMP, LIPA #### [facility] [address] [place] [address] Dr. Lawrence Wayne MCHC (RBC) [Mass/Vol] 35.0 g/dL Normal 29.9-35.2 [facility] Comment on above: Performed By: #### A MY, CMP, LIPA #### [facility] [address] [place] [address] Dr. Lawrence Wayne MCV (RBC) [Entitic vol] 86.4 fL Normal 81.0-99.0 [facility] Comment on above: Performed By: #### A MY, CMP, LIPA #### [facility] [address] [place] [address] Dr. Lawrence Wayne MONO # 0.7 103/ul Normal 0.3-0.8 [facility] Comment on above: Performed By: #### A MY, CMP, LIPA #### [facility] [address] [place] [address] Dr. Lawrence Wayne Monocytes/100 WBC (Bld) 13.6 % Critically high 1.7-12.0 [facility] Comment on above: Performed By: #### A MY, CMP, LIPA #### [facility] [address] [place] [address] Dr. Lawrence Wayne NEUT # 3.2 103/ul Normal 1.4-6.5 [facility] Comment on above: Performed By: #### A MY, CMP, LIPA #### [facility] [address] [place] [address] Dr. Lawrence Wayne Neutrophils/100 WBC (Bld) 62.6 % Normal 43.0-75.0 [facility] Comment on above: Performed By: #### A MY, CMP, LIPA #### [facility] [address] [place] [address] Dr. Lawrence Wayne Platelet mean volume (Bld) [Entitic vol] 9.0 fL Critically low 9.5-13.5 [facility] Comment on above: Performed By: #### A MY, CMP, LIPA #### [facility] [address] [place] [address] Dr. Lawrence Wayne PLT 257 103/ul Normal 150-450 [facility] Comment on above: Performed By: #### A MY, CMP, LIPA #### [facility] [address] [place] [address] Dr. Lawrence Wayne RBC 4.99 106/ul Normal 4.20-5.40 [facility] Comment on above: Performed By: #### A MY, CMP, LIPA #### [facility] [address] [place] [address] Dr. Lawrence Wayne WBC 5.1 103/ul Normal 4.0-11.0 [facility] Comment on above: Performed By: #### A MY, CMP, LIPA #### [facility] [address] [place] [address] Dr. Lawrence Wayne INFLUENZA A AND B AGon 06-17 [facility] BELOW Normal [facility] Comment on above: Result Comment: Nega tive for Flu B protein antigen. Infection due to Flu B cannot be ruled out. Flu B antigen in the sample may be below the detection limit of the test. Performed By: #### A MY, CMP, LIPA #### [facility] [address] [place] [address] Dr. Lawrence Wayne INFLUENZA A AG Positive Abnormal NEGATIVE SEE COMMENT [facility] Comment on above: Performed By: #### A MY, CMP, LIPA #### [facility] [address] [place] [address] Dr. Lawrence Wayne INFLUENZA B AG Negative Normal NEGATIVE SEE COMMENT [facility] Comment on above: Performed By: #### A MY, CMP, LIPA #### [facility] [address] [place] [address] Dr. Lawrence Wayne PROF 14(COMP METB)on 023 Albumin [Mass/Vol] 3.4 g/dL Normal 3.4-5.0 [facility] Comment on above: Performed By: #### A MY, CMP, LIPA #### [facility] [address] [place] [address] Dr. Lawrence Wayne Albumin/Globulin [Mass ratio] 0.9 {ratio} Normal [facility] Comment on above: Performed By: #### A MY, CMP, LIPA #### [facility] [address] [address] [address] Lawrence Wayne ALP [Catalytic activity/Vol] 94 U/L Normal 46-116 [facility] Comment on above: Performed By: #### A MY, CMP, LIPA #### [facility] [address] [address] [address] Lawrence Wayne ALT [Catalytic activity/Vol] 36 U/L Normal 14-59 [facility] Comment on above: Performed By: #### A MY, CMP, LIPA #### [facility] [address] [address] [address] Lawrence Wayne Anion gap [Moles/Vol] 18.9 mmol/L Normal [facility] Comment on above: Performed By: #### A MY, CMP, LIPA #### [facility] [address] [address] [address] Lawrence Wayne AST [Catalytic activity/Vol] 32 U/L Normal 15-37 [facility] Comment on above: Performed By: #### A MY, CMP, LIPA #### [facility] [address] [address] [address] Lawrence Wayne Bilirubin [Mass/Vol] 0.4 mg/dL Normal 0.2-1.0 [facility] Comment on above: Performed By: #### A MY, CMP, LIPA #### [facility] [address] [place] [address] Dr. Lawrence Wayne Calcium [Mass/Vol] 9.1 mg/dL Normal 8.5-10.1 [facility] Comment on above: Performed By: #### A MY, CMP, LIPA #### [facility] [address] [place] [address] Dr. Lawrence Wayne Chloride [Moles/Vol] 100 mmol/L Normal 98-107 [facility] Comment on above: Performed By: #### A MY, CMP, LIPA #### [facility] [address] [address] [address] Lawrence Wayne CO2 [Moles/Vol] 19.7 mmol/L Critically low 21.0-32.0 [facility] Comment on above: Performed By: #### A MY, CMP, LIPA #### [facility] [address] [address] [address] Lawrence Wayne Creatinine [Mass/Vol] 1.13 mg/dL Critically high 0.55-1.02 [facility] Comment on above: Performed By: #### A MY, CMP, LIPA #### [facility] [address] [address] [address] Lawrence Wayne EGFR-AF LAO 58 mL/min/1.73m2 Critically low >=60 [facility] Comment on above: Performed By: #### A MY, CMP, LIPA #### [facility] [address] [address] [address] Lawrence Wayne EGFR-NON AF LAO 48 mL/min/1.73m2 Critically low >=60 [facility] Comment on above: Performed By: #### A MY, CMP, LIPA #### [facility] [address] [address] [address] Lawrence Wayne Globulin (S) [Mass/Vol] 3.9 g/dL Normal [facility] Comment on above: Performed By: #### A MY, CMP, LIPA #### [facility] [address] [address] [address] Lawrence Wayne Glucose [Mass/Vol] 105 mg/dL Normal 74-106 [facility] Comment on above: Performed By: #### A MY, CMP, LIPA #### [facility] [address] [address] [address] Lawrence Wayne Potassium [Moles/Vol] 3.6 mmol/L Normal 3.5-5.1 [facility] Comment on above: Performed By: #### A MY, CMP, LIPA #### [facility] [address] [address] [address] Lawrence Wayne Protein [Mass/Vol] 7.3 g/dL Normal 6.4-8.2 [facility] Comment on above: Performed By: #### A MY, CMP, LIPA #### [facility] [address] [address] [address] Lawrence Wayne Sodium [Moles/Vol] 135 mmol/L Critically low 136-145 [facility] Comment on above: Performed By: #### A MY, CMP, LIPA #### [facility] [address] [address] [address] Lawrence Wayne Urea nitrogen [Mass/Vol] 13.0 mg/dL Normal 7.0-18.0 [facility] Comment on above: Performed By: #### A MY, CMP, LIPA #### [facility] [address] [place] [address] Dr. Lawrence Wayne Urea nitrogen/Creatinine [Mass ratio] 11.5 mg/mg Normal [facility] Comment on above: Performed By: #### A MY, CMP, LIPA #### [facility] [address] [place] [address] Dr. Lawrence Wayne MRI CSPINE WO CONon [...] TYRELL MOREJON Date: 2022-05-20 10:26 Normal [facility] AMYLASEon 05-07-2022 Amylase [Catalytic activity/Vol] 81 U/L Normal 25-115 [facility] Comment on above: Performed By: #### A MY, CMP, LIPA #### [facility] [address] [place] [address] Dr. Lawrence Wayne CBC AUTO DIFFon 05-07-2022 BASO # 0.0 103/ul Normal 0.0-0.1 [facility] Comment on above: Performed By: #### A MY, CMP, LIPA #### [facility] [address] [place] [address] Dr. Lawrence Wayne Basophils/100 WBC (Bld) 0.8 % Normal 0.2-2.0 [facility] Comment on above: Performed By: #### A MY, CMP, LIPA #### [facility] [address] [place] [address] Dr. Lawrence Wayne EO # 0.1 103/ul Normal 0.0-0.7 [facility] Comment on above: Performed By: #### A MY, CMP, LIPA #### [facility] [address] [address] [address] Lawrence Wayne Eosinophils/100 WBC (Bld) 1.5 % Normal 0.9-7.0 [facility] Comment on above: Performed By: #### A MY, CMP, LIPA #### [facility] [address] [place] [address] Dr. Lawrence Wayne Erythrocyte distribution width (RBC) [Ratio] 12.7 % Normal 11.0-15.0 [facility] Comment on above: Performed By: #### A MY, CMP, LIPA #### [facility] [address] [place] [address] Dr. Lawrence Wayne Hematocrit (Bld) [Volume fraction] 40.5 % Normal 36.0-48.0 [facility] Comment on above: Performed By: #### A MY, CMP, LIPA #### [facility] [address] [place] [address] Dr. Lawrence Wayne Hemoglobin (Bld) [Mass/Vol] 13.8 g/dL Normal 12.0-16.0 [facility] Comment on above: Performed By: #### A MY, CMP, LIPA #### [facility] [address] [place] [address] Dr. Lawrence Wayne IG # 0.01 10e3/ul Normal 0.00-0.03 [facility] Comment on above: Performed By: #### A MY, CMP, LIPA #### [facility] [address] [place] [address] Dr. Lawrence Wayne IG % 0.2 % Normal 0.0-0.5 [facility] Comment on above: Performed By: #### A MY, CMP, LIPA #### [facility] [address] [place] [address] Dr. Lawrence Wayne LYMPH # 1.7 103/ul Normal 1.2-3.8 [facility] Comment on above: Performed By: #### A MY, CMP, LIPA #### [facility] [address] [place] [address] Dr. Lawrence Wayne Lymphocytes/100 WBC (Bld) 32.7 % Normal 20.5-60.0 [facility] Comment on above: Performed By: #### A MY, CMP, LIPA #### [facility] [address] [place] [address] Dr. Lawrence Wayne MANUAL DIFF REQ NO Normal [facility] Comment on above: Performed By: #### A MY, CMP, LIPA #### [facility] [address] [place] [address] Dr. Lawrence Wayne MCH (RBC) [Entitic mass] 30.5 pg Normal 26.7-34.0 [facility] Comment on above: Performed By: #### A MY, CMP, LIPA #### [facility] [address] [place] [address] Dr. Lawrence Wayne MCHC (RBC) [Mass/Vol] 34.1 g/dL Normal 29.9-35.2 [facility] Comment on above: Performed By: #### A MY, CMP, LIPA #### [facility] [address] [place] [address] Dr. Lawrence Wayne MCV (RBC) [Entitic vol] 89.4 fL Normal 81.0-99.0 [facility] Comment on above: Performed By: #### A MY, CMP, LIPA #### [facility] [address] [place] [address] Dr. Lawrence Wayne MONO # 0.6 103/ul Normal 0.3-0.8 [facility] Comment on above: Performed By: #### A MY, CMP, LIPA #### [facility] [address] [place] [address] Dr. Lawrence Wayne Monocytes/100 WBC (Bld) 10.5 % Normal 1.7-12.0 [facility] Comment on above: Performed By: #### A MY, CMP, LIPA #### [facility] [address] [place] [address] Dr. Lawrence Wayne NEUT # 2.9 103/ul Normal 1.4-6.5 [facility] Comment on above: Performed By: #### A MY, CMP, LIPA #### [facility] [address] [place] [address] Dr. Lawrence Wayne Neutrophils/100 WBC (Bld) 54.3 % Normal 43.0-75.0 [facility] Comment on above: Performed By: #### A MY, CMP, LIPA #### [facility] [address] [place] [address] Dr. Lawrence Wayne Platelet mean volume (Bld) [Entitic vol] 9.4 fL Critically low 9.5-13.5 [facility] Comment on above: Performed By: #### A MY, CMP, LIPA #### [facility] [address] [place], [place] [id number] Dr. Lawrence Wayne PLT 292 103/ul Normal 150-450 [facility] Comment on above: Performed By: #### A MY, CMP, LIPA #### [facility] [address] [address] [address] Lawrence Wayne RBC 4.53 106/ul Normal 4.20-5.40 [facility] Comment on above: Performed By: #### A MY, CMP, LIPA #### [facility] [address] [place] [address] Dr. Lawrence Wayne WBC 5.3 103/ul Normal 4.0-11.0 [facility] Comment on above: Performed By: #### A MY, CMP, LIPA #### [facility] [address] [place] [address] Dr. Lawrence Wayne LIPASEon 05-07-2022 Lipase [Catalytic activity/Vol] 86.0 U/L Normal 73.0-393.0 [facility] Comment on above: Performed By: #### A MY, CMP, LIPA #### [facility] [address] [place] [address] Dr. Lawrence Wayne PROF 14(COMP METB)on 022 Albumin [Mass/Vol] 3.7 g/dL Normal 3.4-5.0 [facility] Comment on above: Performed By: #### A MY, CMP, LIPA #### [facility] [address] [place] [address] Dr. Lawrence Wayne Albumin/Globulin [Mass ratio] 1.1 {ratio} Normal [facility] Comment on above: Performed By: #### A MY, CMP, LIPA #### [facility] [address] [place] [address] Dr. Lawrence Wayne ALP [Catalytic activity/Vol] 96 U/L Normal 46-116 [facility] Comment on above: Performed By: #### A MY, CMP, LIPA #### [facility] [address] [place] [address] Dr. Lawrence Wayne ALT [Catalytic activity/Vol] 24 U/L Normal 14-59 [facility] Comment on above: Performed By: #### A MY, CMP, LIPA #### [facility] [address] [address] [address] Lawrence Wayne Anion gap [Moles/Vol] 8.3 mmol/L Normal [facility] Comment on above: Performed By: #### A MY, CMP, LIPA #### [facility] [address] [address] [address] Lawrence Wayne AST [Catalytic activity/Vol] 19 U/L Normal 15-37 [facility] Comment on above: Performed By: #### A MY, CMP, LIPA #### [facility] [address] [address] [address] Lawrence Wayne Bilirubin [Mass/Vol] 0.2 mg/dL Normal 0.2-1.0 [facility] Comment on above: Performed By: #### A MY, CMP, LIPA #### [facility] [address] [address] [address] Lawrence Wayne Calcium [Mass/Vol] 9.1 mg/dL Normal 8.5-10.1 [facility] Comment on above: Performed By: #### A MY, CMP, LIPA #### [facility] [address] [place] [address] Dr. Lawrence Wayne Chloride [Moles/Vol] 103 mmol/L Normal 98-107 [facility] Comment on above: Performed By: #### A MY, CMP, LIPA #### [facility] [address] [address] [address] Lawrence Wayne CO2 [Moles/Vol] 30.6 mmol/L Normal 21.0-32.0 [facility] Comment on above: Performed By: #### A MY, CMP, LIPA #### [facility] [address] [place] [address] Dr. Lawrence Wayne Creatinine [Mass/Vol] 0.88 mg/dL Normal 0.55-1.02 [facility] Comment on above: Performed By: #### A MY, CMP, LIPA #### [facility] [address] [place] [address] Dr. Lawrence Wayne EGFR-AF LAO >60 Normal >=60 [facility] Comment on above: Performed By: #### A MY, CMP, LIPA #### [facility] [address] [address] [address] Lawrence Wayne EGFR-NON AF LAO >60 Normal >=60 [facility] Comment on above: Performed By: #### A MY, CMP, LIPA #### [facility] [address] [address] [address] Lawrence Wayne Globulin (S) [Mass/Vol] 3.4 g/dL Normal [facility] Comment on above: Performed By: #### A MY, CMP, LIPA #### [facility] [address] [place] [address] Dr. Lawrence Wayne Glucose [Mass/Vol] 94 mg/dL Normal 74-106 [facility] Comment on above: Performed By: #### A MY, CMP, LIPA #### [facility] [address] [place] [address] Dr. Lawrence Wayne Potassium [Moles/Vol] 3.9 mmol/L Normal 3.5-5.1 [facility] Comment on above: Performed By: #### A MY, CMP, LIPA #### [facility] [address] [place] [address] Dr. Lawrence Wayne Protein [Mass/Vol] 7.1 g/dL Normal 6.4-8.2 [facility] Comment on above: Performed By: #### A MY, CMP, LIPA #### [facility] [address] [place] [address] Dr. Lawrence Wayne Sodium [Moles/Vol] 138 mmol/L Normal 136-145 [facility] Comment on above: Performed By: #### A MY, CMP, LIPA #### [facility] [address] [place] [address] Dr. Lawrence Wayne Urea nitrogen [Mass/Vol] 10.0 mg/dL Normal 7.0-18.0 [facility] Comment on above: Performed By: #### A MY, CMP, LIPA #### [facility] [address] [address] [address] Lawrence Wayne Urea nitrogen/Creatinine [Mass ratio] 11.4 mg/mg Normal [facility] Comment on above: Performed By: #### A MY, CMP, LIPA #### [facility] [address] [place], [place] [address] Dr. Lawrence Wayne MG MAMM SCREEN 3D QING CADon 03-26-2022 MG MAMM SCREEN 3D QING CAD Patient: SKIP HONG. Exam Date: 03/26/2022 : 1955 Gender:F Ordering : DR RADHA LYMAN . Admission #: [id number] Family : Order #: [id number] CLICK HERE TO VIEW EXAM RADIOLOGY REPORT [...] breast cancer at age 30. LOCATION: [facility] BREAST COMPOSITION: Heterogeneously dense,which may obscure [...] MD on 03/26/2022 at 09:53 Normal [facility] NM STRESS/REST MULTIon 03-24 NM STRESS/REST MULTI Patient: MANISHA HONG. Exam Date: 03/24/2022 : 1955 Gender:F Ordering : DR ANITHA MCGREGOR . Admission #: [id number] Family : Order #: [id number] CLICK HERE TO VIEW EXAM RADIOLOGY REPORT [...] MD on 03/25/2022 at 07:15 Normal [facility] T4, T3U, FTI LABCORPon 02-19 Free Thyroxine Index 2.3 Normal 1.2-4.9 [facility] Comment on above: Performed By: #### A MY, CMP, LIPA #### [facility] [address] [address] [address] Lawrence Wayne T3 Uptake 28 % Normal 24-39 [facility] Comment on above: Performed By: #### A MY, CMP, LIPA #### [facility] [address] [address] [address] Lawrence Wayne T4 [Mass/Vol] 8.3 ug/dL Normal 4.5-12.0 [facility] Comment on above: Performed By: #### A MY, CMP, LIPA #### [facility] [address] [address] [address] Lawrence Wayne BNPon 02-18-2022 Natriuretic peptide B (Bld) [Mass/Vol] 78.0 pg/mL Normal <=900.0 [facility] Comment on above: Performed By: #### A MY, CMP, LIPA #### [facility] [address] [address] [address] Lawrence Wayne CBC AUTO DIFFon 02-18-2022 BASO # 0.1 103/ul Normal 0.0-0.1 [facility] Comment on above: Performed By: #### C BC ####[facility] [address] [address]DrKim Wayne Basophils/100 WBC (Bld) 0.9 % Normal 0.2-2.0 [facility] Comment on above: Performed By: #### C BC ####[facility] [address] [place], [place] [address]DrKim Wayne EO # 0.1 103/ul Normal 0.0-0.7 [facility] Comment on above: Performed By: #### C BC ####[facility] [address] [place], [place] [address]DrKim Wayne Eosinophils/100 WBC (Bld) 1.1 % Normal 0.9-7.0 [facility] Comment on above: Performed By: #### C BC ####[facility] [address] [place], [place] [address]DrKim Wayne Erythrocyte distribution width (RBC) [Ratio] 12.6 % Normal 11.0-15.0 [facility] Comment on above: Performed By: #### C BC ####[facility] [address] [place], [place] [address]DrKim Wayne Hematocrit (Bld) [Volume fraction] 44.4 % Normal 36.0-48.0 [facility] Comment on above: Performed By: #### C BC ####[facility] [address] [place], [place] [address]DrKim Wayne Hemoglobin (Bld) [Mass/Vol] 14.7 g/dL Normal 12.0-16.0 [facility] Comment on above: Performed By: #### C BC ####[facility] [address] [address]Dr. Laraantonio Wanye IG # 0.02 10e3/ul Normal 0.00-0.03 [facility] Comment on above: Performed By: #### C BC ####[facility] [address] [address]Dr. Lawrence Wayne IG % 0.3 % Normal 0.0-0.5 [facility] Comment on above: Performed By: #### C BC ####[facility] [address] [place], [place] [address]DrKim Wayne LYMPH # 1.8 103/ul Normal 1.2-3.8 [facility] Comment on above: Performed By: #### C BC ####[facility] [address] [place], [place] [address]Dr. Lawrence Wayne Lymphocytes/100 WBC (Bld) 26.1 % Normal 20.5-60.0 [facility] Comment on above: Performed By: #### C BC ####[facility] [address] [place], [place] [address]DrKim Laraantonio Wayne MANUAL DIFF REQ NO Normal [facility] Comment on above: Performed By: #### C BC ####[facility] [address] [place], [place] [address]Dr. Lawrence Wayne MCH (RBC) [Entitic mass] 30.2 pg Normal 26.7-34.0 [facility] Comment on above: Performed By: #### C BC ####[facility] [address] [place], [place] [address]DrKim Wayne MCHC (RBC) [Mass/Vol] 33.1 g/dL Normal 29.9-35.2 [facility] Comment on above: Performed By: #### C BC ####[facility] [address] [place], [place] [address]Dr. Lawrence Wayne MCV (RBC) [Entitic vol] 91.4 fL Normal 81.0-99.0 [facility] Comment on above: Performed By: #### C BC ####[facility] [address] [address]DrKim Bermudezantonio Tone MONO # 0.8 103/ul Normal 0.3-0.8 [facility] Comment on above: Performed By: #### C BC ####[facility] [address] [address]DrKim Wayne Monocytes/100 WBC (Bld) 11.0 % Normal 1.7-12.0 [facility] Comment on above: Performed By: #### C BC ####[facility] [address] [place], [place] [address]DrKim Wayne NEUT # 4.2 103/ul Normal 1.4-6.5 [facility] Comment on above: Performed By: #### C BC ####[facility] [address] [place], [place] [address]DrKim Wayne Neutrophils/100 WBC (Bld) 60.6 % Normal 43.0-75.0 [facility] Comment on above: Performed By: #### C BC ####[facility] [address] [place], [place] [address]DrKim Wayne Platelet mean volume (Bld) [Entitic vol] 9.2 fL Critically low 9.5-13.5 [facility] Comment on above: Performed By: #### C BC ####[facility] [address] [place], [place] [address]Dr. Lawrence Wayne PLT 322 103/ul Normal 150-450 [facility] Comment on above: Performed By: #### C BC ####[facility] [address] [place], [place] [address]DrKim Wayne RBC 4.86 106/ul Normal 4.20-5.40 [facility] Comment on above: Performed By: #### C BC ####[facility] [address] [place], [place] [address]DrKim Wayne WBC 7.0 103/ul Normal 4.0-11.0 [facility] Comment on above: Performed By: #### C BC ####[facility] [address] [address]Dr. Lawrence Wayne IRONon 02-18-2022 Iron [Mass/Vol] 89.0 ug/dL Normal 50.0-170.0 [facility] Comment on above: Performed By: #### A MY, CMP, LIPA #### [facility] [address] [address] [address] Lawrence Wayne PROF 14(COMP METB)on 022 Albumin [Mass/Vol] 4.0 g/dL Normal 3.4-5.0 [facility] Comment on above: Performed By: #### A MY, CMP, LIPA #### [facility] [address] [address] [address] Lawrence Wayne Albumin/Globulin [Mass ratio] 1.1 {ratio} Normal [facility] Comment on above: Performed By: #### A MY, CMP, LIPA #### [facility] [address] [address] [address] Lawrence Wayne ALP [Catalytic activity/Vol] 98 U/L Normal 46-116 [facility] Comment on above: Performed By: #### A MY, CMP, LIPA #### [facility] [address] [address] [address] Lawrence Wayne ALT [Catalytic activity/Vol] 23 U/L Normal 14-59 [facility] Comment on above: Performed By: #### A MY, CMP, LIPA #### [facility] [address] [address] [address] Lawrence Wayne Anion gap [Moles/Vol] 4.9 mmol/L Normal [facility] Comment on above: Performed By: #### A MY, CMP, LIPA #### [facility] [address] [address] [address] Lawrence Wayne AST [Catalytic activity/Vol] 19 U/L Normal 15-37 [facility] Comment on above: Performed By: #### A MY, CMP, LIPA #### [facility] [address] [address] [address] Lawrence Wayne Bilirubin [Mass/Vol] 0.4 mg/dL Normal 0.2-1.0 [facility] Comment on above: Performed By: #### A MY, CMP, LIPA #### [facility] [address] [address] [address] Lawrence Wayne Calcium [Mass/Vol] 9.5 mg/dL Normal 8.5-10.1 [facility] Comment on above: Performed By: #### A MY, CMP, LIPA #### [facility] Laboratory [address] [address] [address] Lawrence Wayne Chloride [Moles/Vol] 102 mmol/L Normal 98-107 [facility] Comment on above: Performed By: #### A MY, CMP, LIPA #### [facility] [address] [place] [address] Dr. Lawrence Wayne CO2 [Moles/Vol] 30.1 mmol/L Normal 21.0-32.0 [facility] Comment on above: Performed By: #### A MY, CMP, LIPA #### [facility] [address] [address] [address] Lawrence Wayne Creatinine [Mass/Vol] 0.99 mg/dL Normal 0.55-1.02 [facility] Comment on above: Performed By: #### A MY, CMP, LIPA #### [facility] [address] [address] [address] Lawrence Wayne EGFR-AF LAO >60 Normal >=60 [facility] Comment on above: Performed By: #### A MY, CMP, LIPA #### [facility] [address] [address] [address] Lawrence Wayne EGFR-NON AF LAO 56 mL/min/1.73m2 Critically low >=60 [facility] Comment on above: Performed By: #### A MY, CMP, LIPA #### [facility] [address] [address] [address] Lawrence Wayne Globulin (S) [Mass/Vol] 3.5 g/dL Normal [facility] Comment on above: Performed By: #### A MY, CMP, LIPA #### [facility] [address] [address] [address] Lawrence Wayne Glucose [Mass/Vol] 100 mg/dL Normal 74-106 [facility] Comment on above: Performed By: #### A MY, CMP, LIPA #### [facility] [address] [address] [address] Lawrence Wayne Potassium [Moles/Vol] 4.0 mmol/L Normal 3.5-5.1 [facility] Comment on above: Performed By: #### A MY, CMP, LIPA #### [facility] [address] [place] [address] Dr. Lawrence Wayne Protein [Mass/Vol] 7.5 g/dL Normal 6.4-8.2 [facility] Comment on above: Performed By: #### A MY, CMP, LIPA #### [facility] [address] [address] [address] Lawrence Wayne Sodium [Moles/Vol] 133 mmol/L Critically low 136-145 [facility] Comment on above: Performed By: #### A MY, CMP, LIPA #### [facility] [address] [place] [address] Dr. Lawrence Wayne Urea nitrogen [Mass/Vol] 14.0 mg/dL Normal 7.0-18.0 [facility] Comment on above: Performed By: #### A MY, CMP, LIPA #### [facility] [address] [place] [address] Dr. Lawrence Wayne Urea nitrogen/Creatinine [Mass ratio] 14.1 mg/mg Normal [facility] Comment on above: Performed By: #### A MY, CMP, LIPA #### [facility] [address] [place] [address] Dr. Lawrence Wayne TSHon 02-18-2022 TSH 1.273 uIU/mL Normal 0.358-3.740 [facility] Comment on above: Performed By: #### A MY, CMP, LIPA #### [facility] [address] [place] [address] Dr. Lawrence Wayne AMMONIAon 02-07-2022 Ammonia (P) [Mass/Vol] ug/dL Critically low 11-32 [facility] Comment on above: Performed By: #### A MM ####[facility] [address] [address]Dr. Lawrence Wayne AMYLASEon 02-07-2022 Amylase [Catalytic activity/Vol] 88 U/L Normal 25-115 [facility] Comment on above: Performed By: #### A MY, CMP, LIPA #### [facility] [address] [place] [address] Dr. Lawrence Wayne BNPon 02-07-2022 Natriuretic peptide B (Bld) [Mass/Vol] 236.0 pg/mL Normal <=900.0 [facility] Comment on above: Performed By: #### A MY, CMP, LIPA #### [facility] [address] [place] [address] Dr. Lawrence Wayne CBC AUTO DIFFon 02-07-2022 BASO # 0.0 103/ul Normal 0.0-0.1 [facility] Comment on above: Performed By: #### C BC ####[facility] [address] [place], [place] [address]DrKim Wayne Basophils/100 WBC (Bld) 0.7 % Normal 0.2-2.0 [facility] Comment on above: Performed By: #### C BC ####[facility] [address] [place], [place] [address]DrKim Wayne EO # 0.1 103/ul Normal 0.0-0.7 [facility] Comment on above: Performed By: #### C BC ####[facility] [address] [address]DrKim Wayne Eosinophils/100 WBC (Bld) 1.3 % Normal 0.9-7.0 [facility] Comment on above: Performed By: #### C BC ####[facility] [address] [place], [place] [address]DrKim Wayne Erythrocyte distribution width (RBC) [Ratio] 12.7 % Normal 11.0-15.0 [facility] Comment on above: Performed By: #### C BC ####[facility] [address] [address]Dr. Laraantonio Wayne Hematocrit (Bld) [Volume fraction] 38.7 % Normal 36.0-48.0 [facility] Comment on above: Performed By: #### C BC ####[facility] [address] [place], [place] [address]Dr. Lawrence Wayne Hemoglobin (Bld) [Mass/Vol] 12.4 g/dL Normal 12.0-16.0 [facility] Comment on above: Result Comment: RECE IVING BOLUS AND SALINE Performed By: #### C BC ####[facility] Z[address] [place], [place] [address]Dr. Lawrence Wayne IG # 0.01 10e3/ul Normal 0.00-0.03 [facility] Comment on above: Performed By: #### C BC ####[facility] [address] [place], [place] [address]Dr. Lawrence Wayne IG % 0.2 % Normal 0.0-0.5 [facility] Comment on above: Performed By: #### C BC ####[facility] [address] [place], [place] [address]Dr. Lawrence Wayne LYMPH # 1.9 103/ul Normal 1.2-3.8 [facility] Comment on above: Performed By: #### C BC ####[facility] [address] [place], [place] [address]Dr. Lawrence Wayne Lymphocytes/100 WBC (Bld) 35.0 % Normal 20.5-60.0 [facility] Comment on above: Performed By: #### C BC ####[facility] [address] [place], [place] [address]DrKim Wayne MANUAL DIFF REQ NO Normal [facility] Comment on above: Performed By: #### C BC ####[facility] [address]bs[address] [place], [place] [address]Dr. Lawrence Wayne MCH (RBC) [Entitic mass] 30.2 pg Normal 26.7-34.0 [facility] Comment on above: Performed By: #### C BC ####[facility] [address] [place], [place] [address]Dr. Lawrence Wayne MCHC (RBC) [Mass/Vol] 32.0 g/dL Normal 29.9-35.2 [facility] Comment on above: Performed By: #### C BC ####[facility] [address] [place], [place] [address]Dr. Lawrence Tone MCV (RBC) [Entitic vol] 94.2 fL Normal 81.0-99.0 [facility] Comment on above: Performed By: #### C BC ####[facility] Tue[address] [place], [place] [address]Dr. Lawrence Wayne MONO # 0.6 103/ul Normal 0.3-0.8 [facility] Comment on above: Performed By: #### C BC ####[facility] [address] [place], [place] [address]Dr. Lawrence Wayne Monocytes/100 WBC (Bld) 10.7 % Normal 1.7-12.0 [facility] Comment on above: Performed By: #### C BC ####[facility] [address] [place], [place] [address]Dr. Laraantonio Tone NEUT # 2.9 103/ul Normal 1.4-6.5 [facility] Comment on above: Performed By: #### C BC ####[facility] [address] [place], [place] [address]Dr. Lawrence Wayne Neutrophils/100 WBC (Bld) 52.1 % Normal 43.0-75.0 [facility] Comment on above: Performed By: #### C BC ####[facility] [address] [place], [place] [address]Dr. Lawrence Wayne Platelet mean volume (Bld) [Entitic vol] 9.5 fL Normal 9.5-13.5 [facility] Comment on above: Performed By: #### C BC ####[facility] [address] [place] [address] Lawrence Wayne PLT 260 103/ul Normal 150-450 [facility] Comment on above: Performed By: #### C BC ####[facility] [address] [id number]. Lawrence Wayne RBC 4.11 106/ul Critically low 4.20-5.40 [facility] Comment on above: Performed By: #### C BC ####[facility] [address] [id number]. Lawrence Wayne WBC 5.5 103/ul Normal 4.0-11.0 [facility] Comment on above: Performed By: #### C BC ####[facility] [address] [address]DrKim Wayne PROF 14(COMP METB)on 022 Albumin [Mass/Vol] 3.0 g/dL Critically low 3.4-5.0 [facility] Comment on above: Performed By: #### A MY, CMP, LIPA #### [facility] [address] [address] [address] Lawrence Wayne Albumin/Globulin [Mass ratio] 1.1 {ratio} Normal [facility] Comment on above: Performed By: #### A MY, CMP, LIPA #### [facility] [address] [address] [address] Lawrence Wayne ALP [Catalytic activity/Vol] 77 U/L Normal 46-116 [facility] Comment on above: Performed By: #### A MY, CMP, LIPA #### [facility] [address] [address] [address] Lawrence Wayne ALT [Catalytic activity/Vol] 21 U/L Normal 14-59 [facility] Comment on above: Performed By: #### A MY, CMP, LIPA #### [facility] [address] [address] [address] Lawrence Wayne Anion gap [Moles/Vol] 10.9 mmol/L Normal [facility] Comment on above: Performed By: #### A MY, CMP, LIPA #### [facility] [address] [address] [address] Lawrence Wayne AST [Catalytic activity/Vol] 15 U/L Normal 15-37 [facility] Comment on above: Performed By: #### A MY, CMP, LIPA #### [facility] [address] [address] [address] Lawrence Wayne Bilirubin [Mass/Vol] 0.3 mg/dL Normal 0.2-1.0 [facility] Comment on above: Performed By: #### A MY, CMP, LIPA #### [facility] [address] [address] [address] Lawrence Wayne Calcium [Mass/Vol] 8.4 mg/dL Critically low 8.5-10.1 [facility] Comment on above: Performed By: #### A MY, CMP, LIPA #### [facility] [address] [address] [address] Lawrence Wayne Chloride [Moles/Vol] 110 mmol/L Critically high 98-107 [facility] Comment on above: Performed By: #### A MY, CMP, LIPA #### [facility] [address] [address] [address] Lawrence Wayne CO2 [Moles/Vol] 25.0 mmol/L Normal 21.0-32.0 [facility] Comment on above: Performed By: #### A MY, CMP, LIPA #### [facility] [address] [address] [address] Lawrence Wayne Creatinine [Mass/Vol] 0.87 mg/dL Normal 0.55-1.02 [facility] Comment on above: Performed By: #### A MY, CMP, LIPA #### [facility] [address] [address] [address] Lawrence Wayne EGFR-AF LAO >60 Normal >=60 [facility] Comment on above: Performed By: #### A MY, CMP, LIPA #### [facility] [address] [address] [address] Lawrence Wayne EGFR-NON AF LAO >60 Normal >=60 [facility] Comment on above: Performed By: #### A MY, CMP, LIPA #### [facility] [address] [address] [address] Lawrence Wayne Globulin (S) [Mass/Vol] 2.8 g/dL Normal [facility] Comment on above: Performed By: #### A MY, CMP, LIPA #### [facility] [address] [address] [address] Lawrence Wayne Glucose [Mass/Vol] 96 mg/dL Normal 74-106 [facility] Comment on above: Performed By: #### A MY, CMP, LIPA #### [facility] [address] [address] [address] Lawrence Wayne Potassium [Moles/Vol] 3.9 mmol/L Normal 3.5-5.1 [facility] Comment on above: Performed By: #### A MY, CMP, LIPA #### [facility] [address] [address] [address] Lawrence Wayne Protein [Mass/Vol] 5.8 g/dL Critically low 6.4-8.2 [facility] Comment on above: Performed By: #### A MY, CMP, LIPA #### [facility] [address] [place] [address] Dr. Lawrence Wayne Sodium [Moles/Vol] 142 mmol/L Normal 136-145 [facility] Comment on above: Performed By: #### A MY, CMP, LIPA #### [facility] [address] [address] [address] Lawrence Wayne Urea nitrogen [Mass/Vol] 11.0 mg/dL Normal 7.0-18.0 [facility] Comment on above: Performed By: #### A MY, CMP, LIPA #### [facility] [address] [place] [address] Dr. Lawrence Wayne Urea nitrogen/Creatinine [Mass ratio] 12.6 mg/mg Normal [facility] Comment on above: Performed By: #### A MY, CMP, LIPA #### [facility] [address] [place] [address] Dr. Lawrence Wayne AMMONIAon 08-25-2022 Ammonia (P) [Moles/Vol] 44 umol/L Critically high 11-32 [facility] Comment on above: Performed By: #### A MY, CMP, LIPA #### [facility] [address] [address] [address] Lawrence Wayne AMYLASEon 02-06-2022 Amylase [Catalytic activity/Vol] 89 U/L Normal 25-115 [facility] Comment on above: Performed By: #### M G, CMP, CMADM, BNP, ALIYAH, LIPA #### [facility] [address] [address] [address] Lawrence Wayne BNPon 02-06-2022 Natriuretic peptide B (Bld) [Mass/Vol] 103.0 pg/mL Normal <=900.0 [facility] Comment on above: Performed By: #### M G, CMP, CMADM, BNP, ALIYAH, LIPA ####[facility] [address] [address]Dr. Lawrence Wayne CARDIAC ORAL ADMITon 022 CK [Catalytic activity/Vol] 65 U/L Normal 26-192 [facility] Comment on above: Performed By: #### M G, CMP, CMADM, BNP, ALIYAH, LIPA #### [facility] [address] [address] [address] Lawrence Wayne CK.MB [Mass/Vol] 1.16 ng/mL Normal <=3.60 [facility] Comment on above: Performed By: #### M G, CMP, CMADM, BNP, ALIYAH, LIPA #### [facility] [address] [address] [address] Lawrence Wayne HSTROP <4.0 Normal 4.0-51.3 [facility] Comment on above: Result Comment: CUT- OFF POINTS HAVE BEEN ESTABLISHED BASED ON THE FOURTH UNIVERSAL DEFINITIONS OF MYOCARDIAL INFARCTION. THE UPPER REFERENCE LIMIT (URL) OF TROPONIN, DEFINED THE 99TH PERCENTILE OF cTnI DISTRIBUTION IN A REFERENCE POPULATION, HAS BEEN CONFIRMED THE DECISION THRESHOLD FOR IA DIAGNOSIS. Performed By: #### M G, CMP, CMADM, BNP, ALIYAH, LIPA #### [facility] [address] [place], [place] [address] Dr. Lawrence Wayne GEORGI 47 ng/mL Normal 9-82 [facility] Comment on above: Performed By: #### M G, CMP, CMADM, BNP, ALIYAH, LIPA #### [facility] [address] [place], [place] [address] Dr. Lawrence Wayne CBC AUTO DIFFon 02-06-2022 BASO # 0.1 103/ul Normal 0.0-0.1 [facility] Comment on above: Performed By: #### C BC ####[facility] [address] [id number] Wayne Basophils/100 WBC (Bld) 0.7 % Normal 0.2-2.0 [facility] Comment on above: Performed By: #### C BC ####[facility] [address] [address]Dr. Lawrence Wayne EO # 0.1 103/ul Normal 0.0-0.7 [facility] Comment on above: Performed By: #### C BC ####[facility] [address] [id number]. Lawrence Wayne Eosinophils/100 WBC (Bld) 1.1 % Normal 0.9-7.0 [facility] Comment on above: Performed By: #### C BC ####[facility] [address] [id number]. Lawrence Wayne Erythrocyte distribution width (RBC) [Ratio] 12.6 % Normal 11.0-15.0 [facility] Comment on above: Performed By: #### C BC ####[facility] [address] [id number]. Lawrence Wayne Hematocrit (Bld) [Volume fraction] 44.3 % Normal 36.0-48.0 [facility] Comment on above: Performed By: #### C BC ####[facility] [address] [address]DrKim Wayne Hemoglobin (Bld) [Mass/Vol] 14.4 g/dL Normal 12.0-16.0 [facility] Comment on above: Performed By: #### C BC ####[facility] [address] [address]Dr. Lawrence Wayne IG # 0.01 10e3/ul Normal 0.00-0.03 [facility] Comment on above: Performed By: #### C BC ####[facility] [address] [address]Dr. Lawrence Wayne IG % 0.1 % Normal 0.0-0.5 [facility] Comment on above: Performed By: #### C BC ####[facility] [address] [address]Dr. Lawrence Wayne LYMPH # 2.1 103/ul Normal 1.2-3.8 [facility] Comment on above: Performed By: #### C BC ####[facility] [address] [address]Dr. Lawrence Wayne Lymphocytes/100 WBC (Bld) 29.6 % Normal 20.5-60.0 [facility] Comment on above: Performed By: #### C BC ####[facility] [address] [address]Dr. Lawrence Wayne MANUAL DIFF REQ NO Normal [facility] Comment on above: Performed By: #### C BC ####[facility] [address] [address]Dr. Lawrence Wayne MCH (RBC) [Entitic mass] 30.4 pg Normal 26.7-34.0 [facility] Comment on above: Performed By: #### C BC ####[facility] [address] [id number]. Lawrence Wayne MCHC (RBC) [Mass/Vol] 32.5 g/dL Normal 29.9-35.2 [facility] Comment on above: Performed By: #### C BC ####[facility] [address] [address]Dr. Lawrence Wayne MCV (RBC) [Entitic vol] 93.7 fL Normal 81.0-99.0 [facility] Comment on above: Performed By: #### C BC ####[facility] [address] [address]Dr. Lawrence Wayne MONO # 0.8 103/ul Normal 0.3-0.8 [facility] Comment on above: Performed By: #### C BC ####[facility] [address] [address]Dr. Lawrence Wayne Monocytes/100 WBC (Bld) 10.6 % Normal 1.7-12.0 [facility] Comment on above: Performed By: #### C BC ####[facility] [address] [address]Dr. Lawrence Wayne NEUT # 4.1 103/ul Normal 1.4-6.5 [facility] Comment on above: Performed By: #### C BC ####[facility] [address] [address]Dr. Lawrence Wayne Neutrophils/100 WBC (Bld) 57.9 % Normal 43.0-75.0 [facility] Comment on above: Performed By: #### C BC ####[facility] [address] [id number]. Lawrence Wayne Platelet mean volume (Bld) [Entitic vol] 9.3 fL Critically low 9.5-13.5 [facility] Comment on above: Performed By: #### C BC ####[facility] [address] [id number]. Lawrence Wayne PLT 294 103/ul Normal 150-450 [facility] Comment on above: Performed By: #### C BC ####[facility] [address] [address]Dr. Lawrence Wayne RBC 4.73 106/ul Normal 4.20-5.40 [facility] Comment on above: Performed By: #### C BC ####[facility] [address] [id number]. Lawrecne Wayne WBC 7.1 103/ul Normal 4.0-11.0 [facility] Comment on above: Performed By: #### C BC ####[facility] [address] [id number]. Lawrence Wayne CULTURE BLOODon 02-06-2022 Microscopic examination of blood, culture Culture Observations: NO GROWTH AT 5 DAYS. Normal [facility] Comment on above: Performed By: #### B LDCX2 ####[facility] [address] [id number]. Laraantonio Wayne Microscopic examination of blood, culture Culture Observations: NO GROWTH AT 5 DAYS. Normal [facility] Comment on above: Performed By: #### B LDCX1 ####[facility] [address] [id number]. Lawrence Wayne CULTURE URINEon 02-06-2022 CULTURE URINE Culture Observations : NO GROWTH. Normal [facility] Comment on above: Performed By: #### U RCX ####[facility] [address] [place], [place] [address]Dr. Lawrence Wayne Covid-19 PCR (CVDTB)on 01-14 SARS-CoV-2 (COVID-19) RNA EVELIA+probe Ql (Unsp spec) Not detected Normal NOT DETECTED [facility] Comment on above: Result Comment: When [...] for this test is supported by the [place] of Health and Human Service's declaration that [...] be used). Performed By: #### C VDTBH ####[facility] [address] [place], [place] [address]Dr. Lawrence Wayne LACTATE/LACTIC ACIDon 2021 Lactate [Moles/Vol] 1.1 mmol/L Normal 0.4-1.[address] [facility] Comment on above: Performed By: #### A MY, CMP, LIPA #### [facility] [address] [address] [address] Lawrence Wayne LIPASEon 02-06-2022 Lipase [Catalytic activity/Vol] 107.0 U/L Normal 73.0-393.0 [facility] Comment on above: Performed By: #### M G, CMP, CMADM, BNP, ALIYAH, LIPA #### [facility] [address] [address] [address] Lawrence Wayne MAGNESIUMon 02-06-2022 Magnesium [Mass/Vol] 2.3 mg/dL Normal 1.8-2.4 [facility] Comment on above: Performed By: #### M G, CMP, CMADM, BNP, ALIYAH, LIPA ####[facility] [address] [address]Dr. Lawrence Wayne PROF 14(COMP METB)on 022 Albumin [Mass/Vol] 3.8 g/dL Normal 3.4-5.0 [facility] Comment on above: Performed By: #### M G, CMP, CMADM, BNP, ALIYAH, LIPA #### [facility] [address] [address] [address] Lawrence Wayne Albumin/Globulin [Mass ratio] 1.1 {ratio} Normal [facility] Comment on above: Performed By: #### M G, CMP, CMADM, BNP, ALIYAH, LIPA #### [facility] [address] [address] [address] Lawrence Wayne ALP [Catalytic activity/Vol] 98 U/L Normal 46-116 [facility] Comment on above: Performed By: #### M G, CMP, CMADM, BNP, ALIYAH, LIPA #### [facility] [address] [address] [address] Lawrence Wayne ALT [Catalytic activity/Vol] 26 U/L Normal 14-59 [facility] Comment on above: Performed By: #### M G, CMP, CMADM, BNP, ALIYAH, LIPA #### [facility] [address] [address] [address] Lawrence Wayne Anion gap [Moles/Vol] 12.9 mmol/L Normal Th e [facility] Comment on above: Performed By: #### M G, CMP, CMADM, BNP, ALIYAH, LIPA #### [facility] [address] [address] [address] Lawrence Wayne AST [Catalytic activity/Vol] 25 U/L Normal 15-37 [facility] Comment on above: Performed By: #### M G, CMP, CMADM, BNP, ALIYAH, LIPA #### [facility] [address] [address] [address] Lawrence Wayne Bilirubin [Mass/Vol] 0.3 mg/dL Normal 0.2-1.0 [facility] Comment on above: Performed By: #### M G, CMP, CMADM, BNP, ALIYAH, LIPA #### [facility] [address] [address] [address] Lawrence Wayne Calcium [Mass/Vol] 9.1 mg/dL Normal 8.5-10.1 [facility] Comment on above: Performed By: #### M G, CMP, CMADM, BNP, ALIYAH, LIPA #### [facility] [address] [place] [address] Dr. Lawrence Wayne Chloride [Moles/Vol] 105 mmol/L Normal 98-107 [facility] Comment on above: Performed By: #### M G, CMP, CMADM, BNP, ALIYAH, LIPA #### [facility] [address] [address] [address] Lawrence Wayne CO2 [Moles/Vol] 24.0 mmol/L Normal 21.0-32.0 [facility] Comment on above: Performed By: #### M G, CMP, CMADM, BNP, ALIYAH, LIPA #### [facility] [address] [address] [address] Lawrence Wayne Creatinine [Mass/Vol] 0.90 mg/dL Normal 0.55-1.02 [facility] Comment on above: Performed By: #### M G, CMP, CMADM, BNP, ALIYAH, LIPA #### [facility] [address] [address] [address] Lawrence Wayne EGFR-AF LAO >60 Normal >=60 [facility] Comment on above: Performed By: #### M G, CMP, CMADM, BNP, ALIYAH, LIPA #### [facility] [address] [address] [address] Lawrence Wayne EGFR-NON AF LAO >60 Normal >=60 [facility] Comment on above: Performed By: #### M G, CMP, CMADM, BNP, ALIYAH, LIPA #### [facility] [address] [address] [address] Lawrence Wayne Globulin (S) [Mass/Vol] 3.5 g/dL Normal [facility] Comment on above: Performed By: #### M G, CMP, CMADM, BNP, ALIYAH, LIPA #### [facility] [address] [address] [address] Lawrence Wayne Glucose [Mass/Vol] 95 mg/dL Normal 74-106 [facility] Comment on above: Performed By: #### M G, CMP, CMADM, BNP, ALIYAH, LIPA #### [facility] [address] [address] [address] Lawrence Wayne Potassium [Moles/Vol] 3.9 mmol/L Normal 3.5-5.1 [facility] Comment on above: Performed By: #### M G, CMP, CMADM, BNP, ALIYAH, LIPA #### [facility] [address] [address] [address] Lawrence Wayne Protein [Mass/Vol] 7.3 g/dL Normal 6.4-8.2 [facility] Comment on above: Performed By: #### M G, CMP, CMADM, BNP, ALIYAH, LIPA #### [facility] [address] [address] [address] Lawrence Wayne Sodium [Moles/Vol] 138 mmol/L Normal 136-145 [facility] Comment on above: Performed By: #### M G, CMP, CMADM, BNP, ALIYAH, LIPA #### [facility] [address] [place] [address] Dr. Lawrence Wayne Urea nitrogen [Mass/Vol] 12.0 mg/dL Normal 7.0-18.0 [facility] Comment on above: Performed By: #### M G, CMP, CMADM, BNP, ALIYAH, LIPA #### [facility] [address] [place] [address] Dr. Lawrence Wayne Urea nitrogen/Creatinine [Mass ratio] 13.3 mg/mg Normal [facility] Comment on above: Performed By: #### M G, CMP, CMADM, BNP, ALIYAH, LIPA #### [facility] [address] [place] [address] Dr. Lawrence Wayne UA RANDOM W/MICROSCOPICon BACTERIA NONE SEEN Normal NONE SEEN [facility] Comment on above: Performed By: #### A MY, CMP, LIPA #### [facility] [address] [place] [address] Dr. Lawrence Wayne Bilirubin Ql (U) Negative Normal NEGATIVE [facility] Comment on above: Performed By: #### A MY, CMP, LIPA #### [facility] [address] [place] [address] Dr. Lawrence Wayne CAST NONE SEEN Normal NONE SEEN [facility] Comment on above: Performed By: #### A MY, CMP, LIPA #### [facility] [address] [place] [address] Dr. Lawrence Wayne Clarity (U) CLEAR Normal CLEAR [facility] Comment on above: Performed By: #### A MY, CMP, LIPA #### [facility] [address] [place] [address] Dr. Lawrence Wayne Color (U) LT. YELLOW Normal YELLOW [facility] Comment on above: Performed By: #### A MY, CMP, LIPA #### [facility] [address] [place] [address] Dr. Lawrence Wayne Crystals LM Nom (Urine sed) NONE SEEN Normal NONE SEEN [facility] Comment on above: Performed By: #### A MY, CMP, LIPA #### [facility] [address] [address] [address] Lawrence Wayne Epithelial cells LM Ql (Urine sed) FEW Abnormal NONE SEEN /RARE [facility] Comment on above: Performed By: #### A MY, CMP, LIPA #### [facility] [address] [address] [address] Lawrence Wayne Glucose Ql (U) Negative Normal NEGATIVE [facility] Comment on above: Performed By: #### A MY, CMP, LIPA #### [facility] [address] [place] [address] Dr. Lawrence Wayne Hemoglobin Ql (U) Negative Normal NEGATIVE [facility] [place] [facility] Comment on above: Performed By: #### A MY, CMP, LIPA #### [facility] [address] [place] [address] Dr. Lawrence Wayne Ketones Ql (U) Negative Normal NEGATIVE [facility] Comment on above: Performed By: #### A MY, CMP, LIPA #### [facility] [address] [place] [address] Dr. Lawrence Wayne LEUKOCYTES SMALL Abnormal NEGATIVE [facility] Comment on above: Performed By: #### A MY, CMP, LIPA #### [facility] [address] [place] [address] Dr. Lawrence Wayne MUCOUS NONE SEEN Normal NONE SEEN [facility] Comment on above: Performed By: #### A MY, CMP, LIPA #### [facility] [address] [place] [address] Dr. Lawrence Wayne Nitrite Ql (U) Negative Normal NEGATIVE [facility] Comment on above: Performed By: #### A MY, CMP, LIPA #### [facility] [address] [place] [address] Dr. Lawrence Wayne pH (U) 6.0 [pH] Normal 5-9 [facility] Comment on above: Performed By: #### A MY, CMP, LIPA #### [facility] [address] [address] [address] Lawrence Wayne RBC NONE SEEN Abnormal 0-2 [facility] Comment on above: Performed By: #### A MY, CMP, LIPA #### [facility] [address] [address] [address] Lawrence Wayne SPEC GRAVITY <=1.005 Abnormal 1.005-<=1.025 [facility] Comment on above: Performed By: #### A MY, CMP, LIPA #### [facility] [address] [place] [address] Dr. Lawrence Wayne UA PROTEIN Negative Normal NEGATIVE/ TRACE [facility] Comment on above: Performed By: #### A MY CMP, LIPA #### [facility] [address] [place] [address] Dr. Lawrence Wayne Urobilinogen Qn (U) 0.2 {Antonina'U}/dL Normal 0.2 - 1. 0 [facility] Comment on above: Performed By: #### A MY CMP, LIPA #### [facility] [address] [place] [address] Dr. Lawrence Wyane WBC 0-2 Abnormal NONE SEEN [facility] Comment on above: Performed By: #### A MY, CMP, LIPA #### [facility] [address] [place] [address] Dr. Lawrence Wayne YEAST PRESENT Abnormal NONE SEEN [facility] Comment on above: Performed By: #### A GARTH CMP, LIPA #### [facility] [address] [place] [address] Dr. Lawrence Wayne XR ABD FLAT UP_PA [...] by: TYRELL MOREJON Date: 2022-02-06 16:08 Normal [facility] CTA CHEST WO W CONon 022 [...] by: MARK RIOS Date: 2021-08-29 12:20 Normal [facility] XR ABD FLAT_UPon 08-27-2021 XR ABD [...] ENEDELIA FOLEY Date: 2021-08-27 16:08 Normal [facility] BNPon 08-21-2021 Natriuretic peptide B (Bld) [Mass/Vol] 51.0 pg/mL Normal <=900.0 [facility] Comment on above: Performed By: #### A MY, CMP, LIPA #### [facility] [address] [place] [address] Dr. Lawrence Wayne CBC AUTO DIFFon 08-21-2021 BASO # 0.0 103/ul Normal 0.0-0.1 [facility] Comment on above: Performed By: #### A MY, CMP, LIPA #### [facility] [address] [place] [address] Dr. Lawrence Wayne Basophils/100 WBC (Bld) 0.2 % Normal 0.2-2.0 [facility] Comment on above: Performed By: #### A MY, CMP, LIPA #### [facility] [address] [place] [address] Dr. Lawrence Wayne EO # 0.0 103/ul Normal 0.0-0.7 [facility] Comment on above: Performed By: #### A MY, CMP, LIPA #### [facility] [address] [place] [address] Dr. Lawrence Wayne Eosinophils/100 WBC (Bld) 0.1 % Critically low 0.9-7.0 [facility] Comment on above: Performed By: #### A MY, CMP, LIPA #### [facility] [address] [place] [address] Dr. Lawrence Wayne Erythrocyte distribution width (RBC) [Ratio] 13.3 % Normal 11.0-15.0 [facility] Comment on above: Performed By: #### A MY, CMP, LIPA #### [facility] [address] [place] [address] Dr. Lawrence Wayne Hematocrit (Bld) [Volume fraction] 45.7 % Normal 36.0-48.0 [facility] Comment on above: Performed By: #### A MY, CMP, LIPA #### [facility] [address] [place] [address] Dr. Lawrence Wayne Hemoglobin (Bld) [Mass/Vol] 15.3 g/dL Normal 12.0-16.0 [facility] Comment on above: Performed By: #### A MY, CMP, LIPA #### [facility] [address] [place] [address] Dr. Lawrence Wayne IG # 0.12 10e3/ul Critically high 0.00-0.03 [facility] Comment on above: Performed By: #### A MY, CMP, LIPA #### [facility] [address] [place] [address] Dr. Lawrence Wayne IG % 0.9 % Critically high 0.0-0.5 [facility] Comment on above: Performed By: #### A MY, CMP, LIPA #### [facility] [address] [place] [address] Dr. Lawrence Wayne LYMPH # 1.6 103/ul Normal 1.2-3.8 [facility] Comment on above: Performed By: #### A MY, CMP, LIPA #### [facility] [address] [place] [address] Dr. Lawrence Wayne Lymphocytes/100 WBC (Bld) 11.9 % Critically low 20.5-60.0 [facility] Comment on above: Performed By: #### A MY, CMP, LIPA #### [facility] [address] [place] [address] Dr. Lawrence Wayne MANUAL DIFF REQ NO Normal [facility] Comment on above: Performed By: #### A MY, CMP, LIPA #### [facility] [address] [place] [address] Dr. Lawrence Wayne MCH (RBC) [Entitic mass] 30.2 pg Normal 26.7-34.0 [facility] Comment on above: Performed By: #### A MY, CMP, LIPA #### [facility] [address] [place] [address] Dr. Lawrence Wayne MCHC (RBC) [Mass/Vol] 33.5 g/dL Normal 29.9-35.2 [facility] Comment on above: Performed By: #### A MY, CMP, LIPA #### [facility] [address] [address] [address] Lawrence Wayne MCV (RBC) [Entitic vol] 90.1 fL Normal 81.0-99.0 [facility] Comment on above: Performed By: #### A MY, CMP, LIPA #### [facility] [address] [address] [address] Lawrence Wayne MONO # 1.0 103/ul Critically high 0.3-0.8 [facility] Comment on above: Performed By: #### A MY, CMP, LIPA #### [facility] [address] [place] [address] Dr. Lawrence Wayne Monocytes/100 WBC (Bld) 7.2 % Normal 1.7-12.0 [facility] Comment on above: Performed By: #### A MY, CMP, LIPA #### [facility] [address] [address] [address] Lawrence Wayne NEUT # 11.0 103/ul Critically high 1.4-6.5 [facility] Comment on above: Performed By: #### A MY, CMP, LIPA #### [facility] [address] [address] [address] Lawrence Wayne Neutrophils/100 WBC (Bld) 79.7 % Critically high 43.0-75.0 [facility] Comment on above: Performed By: #### A MY, CMP, LIPA #### [facility] [address] [address] [address] Lawrence Wayne Platelet mean volume (Bld) [Entitic vol] 9.1 fL Critically low 9.5-13.5 [facility] Comment on above: Performed By: #### A MY, CMP, LIPA #### [facility] [address] [address] [address] Lawrence Wayne PLT 434 103/ul Normal 150-450 [facility] Comment on above: Performed By: #### A MY, CMP, LIPA #### [facility] [address] [address] [address] Lawrence Wayne RBC 5.07 106/ul Normal 4.20-5.40 [facility] Comment on above: Performed By: #### A MY, CMP, LIPA #### [facility] [address] [address] [address] Lawrence Wayne WBC 13.8 103/ul Critically high 4.0-11.0 [facility] Comment on above: Performed By: #### A MY, CMP, LIPA #### [facility] [address] [address] [address] Lawrence Wayne PROF 14(COMP METB)on 022 Albumin [Mass/Vol] 3.9 g/dL Normal 3.5-5.0 [facility] Comment on above: Performed By: #### A MY, CMP, LIPA #### [facility] [address] [address] [address] Lawrence Wayne Albumin/Globulin [Mass ratio] 1.0 {ratio} Normal [facility] Comment on above: Performed By: #### A MY, CMP, LIPA #### [facility] [address] [place] [address] Dr. Lawrence Wayne ALP [Catalytic activity/Vol] 104 U/L Normal 38-126 [facility] Comment on above: Performed By: #### A MY, CMP, LIPA #### [facility] [address] [address] [address] Lawrence Wayne ALT [Catalytic activity/Vol] 20 U/L Normal 9-52 [facility] Comment on above: Performed By: #### A MY, CMP, LIPA #### [facility] [address] [address] [address] Lawrence Wayne Anion gap [Moles/Vol] 15.5 mmol/L Normal [facility] Comment on above: Performed By: #### A MY, CMP, LIPA #### [facility] [address] [place] [address] Dr. Lawrence Wayne AST [Catalytic activity/Vol] 13 U/L Critically low 14-36 [facility] Comment on above: Performed By: #### A MY, CMP, LIPA #### [facility] [address] [address] [address] Lawrence Wayne Bilirubin [Mass/Vol] 0.4 mg/dL Normal 0.2-1.3 [facility] Comment on above: Performed By: #### A MY, CMP, LIPA #### [facility] [address] [place] [address] Dr. Lawrence Wayne Calcium [Mass/Vol] 9.4 mg/dL Normal 8.4-10.2 [facility] Comment on above: Performed By: #### A MY, CMP, LIPA #### [facility] [address] [place] [address] Dr. Lawrence Wayne Chloride [Moles/Vol] 100 mmol/L Normal 98-107 [facility] Comment on above: Performed By: #### A MY, CMP, LIPA #### [facility] [address] [address] [address] Lawrence Wayne CO2 [Moles/Vol] 23.9 mmol/L Normal 22.0-30.0 [facility] Comment on above: Performed By: #### A MY, CMP, LIPA #### [facility] [address] [place] [address] Dr. Lawrence Wayne Creatinine [Mass/Vol] 0.97 mg/dL Normal 0.52-1.04 [facility] Comment on above: Performed By: #### A MY, CMP, LIPA #### [facility] [address] [place] [address] Dr. Lawrence Wayne EGFR-AF LAO >60 Normal >=60 [facility] Comment on above: Performed By: #### A MY, CMP, LIPA #### [facility] [address] [place] [address] Dr. Lawrence Wayne EGFR-NON AF LAO 58 mL/min/1.73m2 Critically low >=60 [facility] Comment on above: Performed By: #### A MY, CMP, LIPA #### [facility] [address] [address] [address] Lawrence Wayne Globulin (S) [Mass/Vol] 3.8 g/dL Normal [facility] Comment on above: Performed By: #### A MY, CMP, LIPA #### [facility] [address] [place] [address] Dr. Lawrence Wayne Glucose [Mass/Vol] 169 mg/dL Critically high 74-106 [facility] Comment on above: Performed By: #### A MY, CMP, LIPA #### [facility] [address] [place] [address] Dr. Lawrence Wayne Potassium [Moles/Vol] 3.4 mmol/L Normal 3.4-5.0 [facility] Comment on above: Performed By: #### A MY, CMP, LIPA #### [facility] [address] [place] [address] Dr. Lawrence Wayne Protein [Mass/Vol] 7.7 g/dL Normal 6.1-8.2 [facility] Comment on above: Performed By: #### A MY, CMP, LIPA #### [facility] [address] [place] [address] Dr. Lawrence Wayne Sodium [Moles/Vol] 136 mmol/L Critically low 137-145 [facility] Comment on above: Performed By: #### A MY, CMP, LIPA #### [facility] [address] [place] [address] Dr. Lawrence Wayne Urea nitrogen [Mass/Vol] 16.0 mg/dL Normal 7.0-17.0 [facility] Comment on above: Performed By: #### A MY, CMP, LIPA #### [facility] [address] [place] [address] Dr. Lawrence Wayne Urea nitrogen/Creatinine [Mass ratio] 16.5 mg/mg Normal [facility] Comment on above: Performed By: #### A MY, CMP, LIPA #### [facility] [address] [place] [address] Dr. Lawrence Wayne AMIRA by IFAon 08-12-2021 Antinuclear Antibodies, IFA Positive Abnormal [facility] Comment on above: Result Comment: Nega tive <1:80 Borderline 1:80 Positive >1:80 Performed By: #### A NAIFA ####[facility] [id number] [address] Lawrence Wayen Centriole Pattern Normal [facility] Comment on above: Performed By: #### A NAIFA ####[facility] [id number] [address]Dr[address] Lawrence Wayne Centromere Pattern Normal [facility] Comment on above: Performed By: #### A NAIFA ####[facility] [address] [address]Dr. Lawrence Wayne Homogeneous Pattern Normal [facility] Comment on above: Performed By: #### A NAIFA ####[facility] [id number] [address]Dr[address] Lawrence Wayne Midbody Pattern Normal [facility] Comment on above: Performed By: #### A NAIFA ####[facility] [address] [address]Dr. Lawrence Wayne Note: Comment Normal [facility] Comment on above: Result Comment: For [...] titers Nucleosomes, Histones Drug-induced SLE Speckled Sm, PRODUCE PRODUCTION TEAM MEMBER, SCL-70, SLE,MCTD,PSS (diffuse form), SS-A/SS-B Sjogrens Nucleolar SCL-70, PM-1/SCL High titers Scleroderma, PM/DM Centromere Centromere PSS (limited form) w/Crest syndrome variable Nuclear Dot [id number] Primary Biliary Cirrhosis Nuclear GP210, Primary Biliary Cirrhosis Membrane hamilton A,B,C Performed By: #### A MICHELLE ####[facility] [address] [place], [place] [address]. Lawrence Wayne Nuclear Dot Pattern Normal [facility] [place] Comment on above: Performed By: #### A MICHELLE ####[facility] [id number] [address]Dr[address] Lawrence Wayne Nuclear Membrane Pattern Normal [facility] Comment on above: Performed By: #### A NAIFA ####[facility] [address] [address]Dr[address] Lawrence Wayne Nucleolar Pattern Normal [facility] [place] [facility] Comment on above: Performed By: #### A NAIFA ####[facility] [id number] [address]Dr[address] Lawrence Wayne PCNA Pattern Normal [facility] Comment on above: Performed By: #### A NAIFA ####[facility] [address] [address]Dr[address] Lawrence Wayne Speckled Pattern 1:160 Critically high [facility] Comment on above: Result Comment: ICAP nomenclature: AC-2,4,5,29 Performed By: #### A NAIFA ####[facility] [address] [address]Dr[address] Lawrence Wayne Spindle Apparatus Pattern Normal [facility] Comment on above: Performed By: #### A NAIFA ####[facility] [address] [address]Dr[address] Lawrence Wayne AMIRA DIRECTon 08-11-2021 AMIRA Direct Positive Abnormal Negative [facility] Comment on above: Performed By: #### A NAD ####[facility] [address] [address]Dr[address] Lawrence Wayne SLE PROFILE Aon 08-11-2021 Anti-DNA (DS) Ab Qn 1 IU/mL Normal 0-[address] [facility] Comment on above: Result Comment: Nega tive <5 Equivocal 5 - 9 Positive >9 Performed By: #### A MY, CMP, LIPA #### [facility] [address] [address] [address] Lawrence Wayne Antichromatin Antibodies <0.2 Normal 0.0-0.9 [facility] Comment on above: Performed By: #### A MY, CMP, LIPA #### [facility] [address] [address] [address] Lawrence Wayne RA Latex Turbid. <10.0 Normal <14.0 [facility] Comment on above: Performed By: #### A MY, CMP, LIPA #### [facility] [address] [address] [address] Lawrence Wayne PRODUCE PRODUCTION TEAM MEMBER Antibodies <0.2 Normal 0.0-0.9 [facility] [place] Comment on above: Performed By: #### A MY, CMP, LIPA #### [facility] [address] [address] [address] Lawrence Wayne Sjogren's Anti-SS-A 1.4 AI Critically high 0.0-0.9 [facility] Comment on above: Performed By: #### A MY, CMP, LIPA #### [facility] [address] [place] [address] Dr. Lawrence Garciaogrvidal's Anti-SS-B <0.2 Normal 0.0-0.[address] [facility] Comment on above: Performed By: #### A MY, CMP, LIPA #### [facility] [address] [address] [address] Lawrence Wayne Ramos Antibodies <0.2 Normal 0.0-0.9 [facility] Comment on above: Performed By: #### A MY, CMP, LIPA #### [facility] [address] [address] [address] Lawrence Wayne ANTISTREPTOLYSIN O AB (ASO) on 08-10-2021 Antistreptolysin O Ab 55.6 IU/mL Normal 0.0-200.0 [facility] Comment on above: Performed By: #### A MY, CMP, LIPA #### [facility] [address] [address] [address] Lawrence Wayne C3 and C4 COMPLEMENTon 08-10 Complement C3, Serum 124 mg/dL Normal 82-167 [facility] Comment on above: Performed By: #### A MY, CMP, LIPA #### [facility] [address] [address] [address] Lawrence Wayne Complement C4, Serum 12 mg/dL Normal 12-38 [facility] Comment on above: Performed By: #### A MY, CMP, LIPA #### [facility] [address] [place] [address] Dr. Lawrence Wayne CBC AUTO DIFFon 08-09-2021 BASO # 0.1 103/ul Normal 0.0-0.1 [facility] Comment on above: Performed By: #### A MY, CMP, LIPA #### [facility] [address] [place] [address] Dr. Lawrence Wayne Basophils/100 WBC (Bld) 0.6 % Normal 0.2-2.0 [facility] Comment on above: Performed By: #### A MY, CMP, LIPA #### [facility] [address] [place] [address] Dr. Lawrence Wayne EO # 0.0 103/ul Normal 0.0-0.7 [facility] Comment on above: Performed By: #### A MY, CMP, LIPA #### [facility] [address] [place] [address] Dr. Lawrence Wayne Eosinophils/100 WBC (Bld) 0.2 % Critically low 0.9-7.0 [facility] Comment on above: Performed By: #### A MY, CMP, LIPA #### [facility] [address] [place] [address] Dr. Lawrence Wayne Erythrocyte distribution width (RBC) [Ratio] 13.4 % Normal 11.0-15.0 [facility] Comment on above: Performed By: #### A MY, CMP, LIPA #### [facility] [address] [place] [address] Dr. Lawrence Wayne Hematocrit (Bld) [Volume fraction] 43.6 % Normal 36.0-48.0 [facility] Comment on above: Performed By: #### A MY, CMP, LIPA #### [facility] [address] [place] [address] Dr. Lawrence Wayne Hemoglobin (Bld) [Mass/Vol] 14.2 g/dL Normal 12.0-16.0 [facility] Comment on above: Performed By: #### A MY, CMP, LIPA #### [facility] [address] [address] [address] Lawrence Wayne IG # 0.03 10e3/ul Normal 0.00-0.03 [facility] Comment on above: Performed By: #### A MY, CMP, LIPA #### [facility] [address] [address] [address] Lawrence Wayne IG % 0.3 % Normal 0.0-0.5 [facility] Comment on above: Performed By: #### A MY, CMP, LIPA #### [facility] [address] [place] [address] Dr. Lawrence Wayne LYMPH # 1.1 103/ul Critically low 1.2-3.8 [facility] Comment on above: Performed By: #### A MY, CMP, LIPA #### [facility] [address] [place] [address] Dr. Lawrence Wayne Lymphocytes/100 WBC (Bld) 12.7 % Critically low 20.5-60.0 [facility] Comment on above: Performed By: #### A MY, CMP, LIPA #### [facility] [address] [address] [address] Lawrence Wayne MANUAL DIFF REQ NO Normal [facility] Comment on above: Performed By: #### A MY, CMP, LIPA #### [facility] [address] [place] [address] Dr. Lawrence Wayne MCH (RBC) [Entitic mass] 30.3 pg Normal 26.7-34.0 [facility] Comment on above: Performed By: #### A MY, CMP, LIPA #### [facility] [address] [place] [address] Dr. Lawrence Wayne MCHC (RBC) [Mass/Vol] 32.6 g/dL Normal 29.9-35.2 [facility] Comment on above: Performed By: #### A MY, CMP, LIPA #### [facility] [address] [place] [address] Dr. Lawrence Wayne MCV (RBC) [Entitic vol] 93.0 fL Normal 81.0-99.0 [facility] Comment on above: Performed By: #### A MY, CMP, LIPA #### [facility] [address] [place] [address] Dr. Lawrence Wayne MONO # 0.3 103/ul Normal 0.3-0.8 [facility] Comment on above: Performed By: #### A MY, CMP, LIPA #### [facility] [address] [place] [address] Dr. Lawrence Wayne Monocytes/100 WBC (Bld) 3.7 % Normal 1.7-12.0 [facility] Comment on above: Performed By: #### A MY, CMP, LIPA #### [facility] [address] [place] [address] Dr. Lawrence Wayne NEUT # 7.3 103/ul Critically high 1.4-6.5 [facility] Comment on above: Performed By: #### A MY, CMP, LIPA #### [facility] [address] [place] [address] Dr. Lawrence Wayne Neutrophils/100 WBC (Bld) 82.5 % Critically high 43.0-75.0 [facility] Comment on above: Performed By: #### A MY, CMP, LIPA #### [facility] [address] [place] [address] Dr. Lawrence Wayne Platelet mean volume (Bld) [Entitic vol] 9.6 fL Normal 9.5-13.5 [facility] Comment on above: Performed By: #### A MY, CMP, LIPA #### [facility] [address] [place] [address] Dr. Lawrence Wayne PLT 322 103/ul Normal 150-450 [facility] Comment on above: Performed By: #### A MY, CMP, LIPA #### [facility] [address] [place] [address] Dr. Lawrence Wayne RBC 4.69 106/ul Normal 4.20-5.40 [facility] Comment on above: Performed By: #### A MY, CMP, LIPA #### [facility] [address] [address] [address] Lawrence Wayne WBC 8.8 103/ul Normal 4.0-11.0 [facility] Comment on above: Performed By: #### A MY CMP, LIPA #### [facility] [address] [address] [address] Lawrence Wayne CRPon 08-09-2021 CRP [Mass/Vol] mg/L Normal <=1.0 [facility] Comment on above: Performed By: #### A MY, CMP, LIPA #### [facility] [address] [address] [address] Lawrence Wayne IRONon 08-09-2021 Iron [Mass/Vol] 83.0 ug/dL Normal 37.0-170.0 [facility] Comment on above: Performed By: #### A MY CMP, LIPA #### [facility] [address] [address] [address] Lawrence Wayne SED RATE WESTERGRENon 2021 SED RATE 16 mm/hr Normal <=30 [facility] Comment on above: Performed By: #### S EDR ####[facility] [id number] [address]Dr[address] Lawrence Wayne URIC ACID SERUMon 08-09-2021 Urate [Mass/Vol] 3.4 mg/dL Normal 2.5-6.2 [facility] Comment on above: Performed By: #### A GARTH, CMP, LIPA #### [facility] [address] [address] [address] Lawrence Wayne XR CSPINE MIN 4 [...] TYRELL MOREJON Date: 2021-08-09 14:37 Normal [facility] H PYLORI ANTIBODY IGGon 06-16 H. PYLORI IGG ABS 0.13 Index Value Normal 0.00-0.79 [facility] Comment on above: Result Comment: Nega tive <0.80 Equivocal 0.80 - 0.89 Positive >0.89 Performed By: #### A MY, CMP, LIPA #### [facility] [address] [place] [address] Dr. Lawrence Wayne AMYLASEon 07-11-2021 Amylase [Catalytic activity/Vol] 100 U/L Normal 31-110 [facility] Comment on above: Performed By: #### A MY, CMP, LIPA #### [facility] [address] [place] [address] Dr. Lawrence Wayne CBC AUTO DIFFon 07-11-2021 BASO # 0.1 103/ul Normal 0.0-0.1 [facility] Comment on above: Performed By: #### A MY, CMP, LIPA #### [facility] [address] [place] [address] Dr. Lawrence Wayne Basophils/100 WBC (Bld) 0.7 % Normal 0.2-2.0 [facility] Comment on above: Performed By: #### A MY, CMP, LIPA #### [facility] [address] [place] [address] Dr. Lawrence Wayne EO # 0.1 103/ul Normal 0.0-0.7 [facility] Comment on above: Performed By: #### A MY, CMP, LIPA #### [facility] [address] [place] [address] Dr. Lawrence Wayne Eosinophils/100 WBC (Bld) 1.2 % Normal 0.9-7.0 [facility] Comment on above: Performed By: #### A MY, CMP, LIPA #### [facility] [address] [place] [address] Dr. Lawrence Wayne Erythrocyte distribution width (RBC) [Ratio] 13.9 % Normal 11.0-15.0 [facility] Comment on above: Performed By: #### A MY, CMP, LIPA #### [facility] [address] [address] [address] Lawrence Wayne Hematocrit (Bld) [Volume fraction] 45.9 % Normal 36.0-48.0 [facility] Comment on above: Performed By: #### A MY, CMP, LIPA #### [facility] [address] [place] [address] Dr. Lawrence Wayne Hemoglobin (Bld) [Mass/Vol] 14.9 g/dL Normal 12.0-16.0 [facility] Comment on above: Performed By: #### A MY, CMP, LIPA #### [facility] [address] [place] [address] Dr. Lawrence Wayne IG # 0.03 10e3/ul Normal 0.00-0.03 [facility] Comment on above: Performed By: #### A MY, CMP, LIPA #### [facility] [address] [place] [address] Dr. Lawrence Wayne IG % 0.4 % Normal 0.0-0.5 [facility] Comment on above: Performed By: #### A MY, CMP, LIPA #### [facility] [address] [place] [address] Dr. Lawrence Wayne LYMPH # 2.2 103/ul Normal 1.2-3.8 [facility] Comment on above: Performed By: #### A MY, CMP, LIPA #### [facility] [address] [place] [address] Dr. Lawrence Wayne Lymphocytes/100 WBC (Bld) 29.0 % Normal 20.5-60.0 [facility] Comment on above: Performed By: #### A MY, CMP, LIPA #### [facility] [address] [place] [address] Dr. Lawrence Wayne MANUAL DIFF REQ NO Normal [facility] Comment on above: Performed By: #### A MY, CMP, LIPA #### [facility] [address] [place] [address] Dr. Lawrence Wayne MCH (RBC) [Entitic mass] 29.8 pg Normal 26.7-34.0 [facility] Comment on above: Performed By: #### A MY, CMP, LIPA #### [facility] [address] [place] [address] Dr. Lawrence Wayne MCHC (RBC) [Mass/Vol] 32.5 g/dL Normal 29.9-35.2 [facility] Comment on above: Performed By: #### A MY, CMP, LIPA #### [facility] [address] [place] [address] Dr. Lawrence Wayne MCV (RBC) [Entitic vol] 91.8 fL Normal 81.0-99.0 [facility] Comment on above: Performed By: #### A MY, CMP, LIPA #### [facility] [address] [place] [address] Dr. Lawrence Wayne MONO # 0.9 103/ul Critically high 0.3-0.8 [facility] Comment on above: Performed By: #### A MY, CMP, LIPA #### [facility] [address] [place] [address] Dr. Lawrence Wayne Monocytes/100 WBC (Bld) 11.7 % Normal 1.7-12.0 [facility] Comment on above: Performed By: #### A MY, CMP, LIPA #### [facility] [address] [place] [address] Dr. Lawrence Wayne NEUT # 4.3 103/ul Normal 1.4-6.5 [facility] Comment on above: Performed By: #### A MY, CMP, LIPA #### [facility] [address] [place] [address] Dr. Lawrence Wayne Neutrophils/100 WBC (Bld) 57.0 % Normal 43.0-75.0 [facility] Comment on above: Performed By: #### A MY, CMP, LIPA #### [facility] [address] [place] [address] Dr. Lawrence Wayne Platelet mean volume (Bld) [Entitic vol] 8.7 fL Critically low 9.5-13.5 [facility] Comment on above: Performed By: #### A MY, CMP, LIPA #### [facility] [address] [place] [address] Dr. Lawrence Wayne PLT 351 103/ul Normal 150-450 [facility] Comment on above: Performed By: #### A MY, CMP, LIPA #### [facility] [address] [address] [address] Lawrence Wayne RBC 5.00 106/ul Normal 4.20-5.40 [facility] Comment on above: Performed By: #### A MY, CMP, LIPA #### [facility] [address] [place] [address] Dr. Lawrence Wayne WBC 7.6 103/ul Normal 4.0-11.0 [facility] Comment on above: Performed By: #### A MY, CMP, LIPA #### [facility] [address] [place] [address] Dr. Lawrence Wayne LIPASEon 07-11-2021 Lipase [Catalytic activity/Vol] 93.0 U/L Normal 23.0-300.0 [facility] Comment on above: Performed By: #### A MY, CMP, LIPA #### [facility] [address] [place] [address] Dr. Lawrence Wayne PROF 14(COMP METB)on 022 Albumin [Mass/Vol] 4.1 g/dL Normal 3.5-5.0 [facility] Comment on above: Performed By: #### A MY, CMP, LIPA #### [facility] [address] [place] [address] Dr. Lawrence Wayne Albumin/Globulin [Mass ratio] 1.1 {ratio} Normal [facility] Comment on above: Performed By: #### A MY, CMP, LIPA #### [facility] [address] [place] [address] Dr. Lawrence Wayne ALP [Catalytic activity/Vol] 101 U/L Normal 38-126 [facility] Comment on above: Performed By: #### A MY, CMP, LIPA #### [facility] [address] [address] [address] Lawrence Wayne ALT [Catalytic activity/Vol] 38 U/L Normal 9-52 [facility] Comment on above: Performed By: #### A MY, CMP, LIPA #### [facility] [address] [address] [address] Lawrence Wayne Anion gap [Moles/Vol] 12.5 mmol/L Normal Th [facility] Comment on above: Performed By: #### A MY, CMP, LIPA #### [facility] [address] [address] [address] Lawrence Wayne AST [Catalytic activity/Vol] 25 U/L Normal 14-36 [facility] Comment on above: Performed By: #### A MY, CMP, LIPA #### [facility] [address] [place] [address] Dr. Lawrence Wayne Bilirubin [Mass/Vol] 0.8 mg/dL Normal 0.2-1.3 [facility] Comment on above: Performed By: #### A MY, CMP, LIPA #### [facility] [address] [place] [address] Dr. Lawrence Wayne Calcium [Mass/Vol] 9.9 mg/dL Normal 8.4-10.2 [facility] Comment on above: Performed By: #### A MY, CMP, LIPA #### [facility] [address] [place] [address] Dr. Lawrence Wayne Chloride [Moles/Vol] 98 mmol/L Normal 98-107 [facility] Comment on above: Performed By: #### A MY, CMP, LIPA #### [facility] [address] [place] [address] Dr. Lawrence Wayne CO2 [Moles/Vol] 26.6 mmol/L Normal 22.0-30.0 [facility] Comment on above: Performed By: #### A MY, CMP, LIPA #### [facility] [address] [place] [address] Dr. Lawrence Wayne Creatinine [Mass/Vol] 1.12 mg/dL Critically high 0.52-1.04 [facility] Comment on above: Performed By: #### A MY, CMP, LIPA #### [facility] [address] [address] [address] Lawrence Wayne EGFR-AF LAO 59 mL/min/1.73m2 Critically low >=60 [facility] Comment on above: Performed By: #### A MY, CMP, LIPA #### [facility] [address] [address] [address] Lawrence Wayne EGFR-NON AF LAO 49 mL/min/1.73m2 Critically low >=60 [facility] Comment on above: Performed By: #### A MY, CMP, LIPA #### [facility] [address] [place] [address] Dr. Lawrence Wayne Globulin (S) [Mass/Vol] 3.7 g/dL Normal [facility] Comment on above: Performed By: #### A MY, CMP, LIPA #### [facility] [address] [place] [address] Dr. Lawrence Wayne Glucose [Mass/Vol] 117 mg/dL Critically high 74-106 T [facility] Comment on above: Performed By: #### A MY, CMP, LIPA #### [facility] [address] [place] [address] Dr. Lawrence Wayne Potassium [Moles/Vol] 4.1 mmol/L Normal 3.4-5.0 [facility] Comment on above: Performed By: #### A MY, CMP, LIPA #### [facility] [address] [address] [address] Lawrence Wayne Protein [Mass/Vol] 7.8 g/dL Normal 6.1-8.2 [facility] Comment on above: Performed By: #### A MY, CMP, LIPA #### [facility] [address] [address] [address] Lawrence Wayne Sodium [Moles/Vol] 133 mmol/L Critically low 137-145 Th [facility] Comment on above: Performed By: #### A MY, CMP, LIPA #### [facility] [address] [place], [place] [address] Dr. Lawrence Wayne Urea nitrogen [Mass/Vol] 9.0 mg/dL Normal 7.0-17.0 [facility] Comment on above: Performed By: #### A MY, CMP, LIPA #### [facility] [address] [place], [place] [address] Dr. Lawrence Wayne Urea nitrogen/Creatinine [Mass ratio] 8.0 mg/mg Normal [facility] Comment on above: Performed By: #### A MY, CMP, LIPA #### [facility] [address] [place], [place] [address] Dr. Lawrence Wayne Vital Signs Date Time Vital Sign Value Performing Clinician Thadi boris 05-27-2022 15:00-0500 Body height 160.02 cm Prasad Isabel Other [facility] Other 05-27-2022 15:00-0500 Body mass index (BMI) [Ratio] 23.56 kg/m2 Prasad Isabel Other [facility] Other 05-27-2022 15:00-0500 Body weight 60.33 kg Prasad Isabel Other [facility] Other Encounters Encounter Date Encounter Type Care Provider Facility Start: 01-18-2024 End: 01-18-2024 ambulatory Cindy Phan Facility:[facility] Start: 01-11-2024 End: 01-11-2024 ambulatory CINDY PHAN Not Available Start: 11-16-2023 End: 11-16-2023 ambulatory CINDY PHAN Not Available Start: 11-02-2023 End: 11-02-2023 ambulatory JASVIR SMILEY Not Available Start: 10-08-2023 End: 10-08-2023 ambulatory MIGUEL ÁNGEL HER Not Available Start: 07-27-2023 Bamboo flowsheet Cindy rivero DO Work Phone: [facility] Start: 07-27-2023 Bamboo flowsheet Cindy rivero DO Work Phone: [facility] Start: 07-27-2023 End: 07-27-2023 ambulatory CINDY PHAN Not Available Start: 07-01-2022 End: 07-02-[address] ANITHA MCGREGOR Facility:[facility] Start: 06-23-2022 End: 06-23-2022 ambulatory ANITHA MCGREGOR Facility:[facility] Start: 06-23-2022 End: 06-23-2022 ambulatory Benjamin Moore PA-C Work Phone: [facility] Comment on above: Fibromyalgia (Primar y Dx); Cervicalgia Start: 06-23-2022 End: 06-23-2022 Telemedicine consultation with patient Benjamin Moore PA-C Work Phone: [facility] Start: 06-17-2022 End: 06-17-[address] JULIANN ROGER Facility:[facility] Start: 06-03-2022 End: 06-03-2022 ambulatory Bentley Bragg Other [facility] Other Start: 06-03-2022 Chart abstracting Unk (Historical) N [facility] Start: 06-03-2022 Telephone encounter Bentley Bragg [facility] Start: 05-27-2022 End: 05-27-2022 ambulatory Prasad Isabel Other [facility] Other Start: 05-27-2022 Office outpatient ne w 30 minutes Prasad Isabel [facility] Start: 05-20-2022 End: 05-21-2022 ambulatory [...] Start: 08-09-2021 End: 08-10-[address] ANITHA MCRGEGOR Facility:[facility] Start: 07-11-2021 End: 07-12-[address] ANITHA MCGREGOR Facility:[facility] Start: 07-06-2018 End: 07-06-2018 Patient encounter procedure Kings Thomson Facility:[facility] Procedures Date Procedure Procedure Detail Performing Clinician [...] [facility] [address] [place] [address] Cindy Phan DO [address] [place], [place] [id number] [facility] Start: 07-27-2023 End: 07-27-2023 Patient encounter procedure 07/27/2023 2:15 PM EST Office Visit [facility] [address] [place] [address] Cindy Phan DO [address] [place] [address] Arrived [facility] Comment on above: Arrived Start: 03-26-2023 Screening for malign ant neoplasm of breast Mammogram [facility] Start: 02-13-2023 Influenza vaccination Influenza Vacc ine (#1) [facility] Start: 06-15-2022 ADVANCE DIRECTIVE DISCUSSION ADVANCE DIRECTIVE DISCUSSION [facility] Start: 06-15-2022 DEPRESSION ASSESSMENT DEPRESSION ASS ESSMENT [facility] Start: 02-13-2022 Influenza vaccination INFLUENZA (#1) [facility] Start: 12-08-2021 COVID-19 VACCINE (5 - Booster for Moderna series) COVID-19 VACCINE (5 - Booster for Moderna series) [facility] Start: 06-15-2021 ADVANCE DIRECTIVE DISCUSSION ADVANCE DIRECTIVE DISCUSSION [facility] Start: 06-15-2021 DEPRESSION ASSESSMENT DEPRESSION ASS ESSMENT [facility] Start: 01-11-2021 BONE DENSITY BONE DENSITY [facility] Start: 01-11-2021 Pneumococcal Vaccine : 65+ Years (1 - PCV) Pneumococcal Vaccine: 65+ Years (1 - PCV) [facility] Start: 01-11-2021 PNEUMOCOCCAL: 65+ (1 - PCV) PNEUMOCOCCAL: 65+ (1 - PCV) [facility] Start: 09-20-2012 DIABETES SCREEN DIABETES SCREEN [facility] Start: 01-11-2006 SHINGRIX VACCINE (1 of 2) SHINGRIX V ACCINE (1 of 2) [facility] Start: 01-11-2001 COLOGUARD (FIT-DNA) COLOGUARD (FIT-D NA) [facility] Start: 01-11-2001 Colonoscopy COLONOSCOPY [facility] Start: 01-11-2001 COLORECTAL CANCER SCREENING COLORECTAL CANCER SCREENING [facility] Start: 01-11-[address] COLONOGRAPHY [facility] Start: 01-11-2001 FECAL OCCULT BLOOD FECAL OCCULT BLOO D [facility] Start: 01-11-2001 LIPID SCREEN LIPID SCREEN [facility] Start: 01-11-2001 SIGMOIDOSCOPY SIGMOIDOSCOPY [facility] Start: 1996 Mammography MAMMOGRAM [facility] Start: 01-11-1975 Urine microalbumin profile DTAP,TDAP,TD (1 - Tdap) [facility] Start: 01-11-1974 HEPATITIS C SCREENING HEPATITIS C SC IESHA [facility] Start: 1956 COVID-19 VACCINE (#1) COVID-19 VACCI NE (#1) [facility] Start: 1955 Screening for malign ant neoplasm of colon [facility] Immunizations Immunization Date Immunization Notes Care Provider Bill dorsey 04-09-2022 influenza virus vacc ine, unspecified formulation Cindy Phan DO Work Phone: [facility] Payers Date Payer Category Payer Medicare ANTHEM MEDICARE ADVANTAGE ANTHEM MEDICARE ADVANTAGE [id number] 2023-Present [address] [place] [address] [id number] 2021 Unknown ANTHEM BLUE CROS S AND BLUE SHIELD ANTHEM MEDIBLUE HMO [id number] 2021-Present [phone] [address] [place] [address] HMO [id number] 2018 Self-pay 2018 Unknown [id number] 1959 Unknown [id number] 1956 Unknown [id number] 1956 Unknown [id number] 1956 Unknown [id number] 2.16840.1.415728.3.579.2.593 1956 Unknown [id number] 2.16.840.1.101642.3.579.2.593 1956 Unknown [id number] 2.16.840.1.491609.3.579.2.593 1956 Unknown [id number] 2.16840.1.410264.3.579.2.593 1956 Unknown [id number] 2.16.840.1.906682.3.579.2.593 1956 Unknown [id number] 2.16.840.1.177454.3.579.2.593 1956 Unknown [id number] 2.16.840.1.310135.3.579.2.593 1956 Unknown [id number] 2.16.840.1.730413.3.579.2.593 1956 Unknown [id number] 2.16.840.1.681911.3.579.2.593 1956 Unknown [id number] 2.16.840.1.358915.3.579.2.593 1956 Unknown [id number] 2.16.840.1.901043.3.579.2.593 1956 Unknown [id number] 2.16.840.1.526406.3.579.2.125 9 1956 Unknown [id number] 2.16.840.1.191079.3.579.2.125 9 1956 Unknown [id number] 2.16.840.1.956507.3.579.2.125 9 1956 Unknown [id number] 2.16.840.1.796119.3.579.2.125 9 1956 Unknown [id number] 2.16.840.1.177700.3.579.2.125 9 1956 Unknown [id number] 2.16.840.1.670857.3.579.2.727 1956 Unknown [id number] 2.16.840.1.136308.3.579.2.727 Unknown [id number] 2.16.840.1.335490.3.579.2.531 Social History Date Type Detail Facility Start: 04-10-2011 End: 07-27-2023 Tobacco smoking status UTIS Never smoked tobacco [facility] Start: 04-10-2011 End: 07-27-2023 Tobacco use and exposure Smokeless tobacco non-user [facility] Start: 05-13-2018 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 intake 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 Intraocular lens (IOL) [...] (RGP) lenses occurred. documented in this encounter [facility] 06-23-2022 Note HNO ID: [id number] Author: Benjamin Moore PA-C Service: ? Author Type: Physician Exercise Physiologist Certified Type: Progress Notes Filed: 06/23/2022 7:54 AM Note Text: AMBULATORY TELEPHONE VISIT Skip Hong has consented to this telephone encounter. Patient was unable to connect to [employer] Virtual Visit - call to patient to [...] Time Spent: 45 minutes Benjamin Moore PA-C [facility] 06-23-2022 History of Present illness Narrative AMBULATORY TELEPHONE VISIT Skip Hong has consented to this telephone encounter. Patient was unable to connect to [employer] Virtual Visit - call to patient to [...] Benjamin Moore PA-C documented in this encounter [facility] 06-04-2022 Note HNO ID: [id number] Author: Sangeetha Vasquez APRN.PUBLIC SERVICE DIRECTOR Service: ? Author Type: Nurse Practitioner Type: [...] person or virtual visit whatever patient preference. [facility] 06-04-2022 History of Present illness Narrative [...] Health Provider or Pain Management Provider at [facility]? No If answer is YES please [...] facility where the MRI/CT/myelogram was completed: [place] [address] MRI/CT/myelogram viewable in Epic: No If not, please provide [phone] to fax in imaging reports for review. Also, please inform patient to hand carry imaging disc to appointment. XR (spine) within 12 months: Yes If YES, please ask for the name/address of the facility where the XR was completed: [place] [address] Dr. Humphreys's patients: Have you had previous [...] injections and/or physical therapy was completed Injections: [facility] [address] [place] [address] PT: unable to recall facility Have you [...] where the surgery was completed: Additional Comments [phone] documented in this encounter [facility] 06-03-2022 Note HNO ID: [id number] Author: Celeste Khalil Research Coordinator Service: ? Author Type: Research Type: Progress Notes Filed: 06/04/2022 11:31 AM Note Text: Patient name: Skip Hong Are you being referred by a [place] for Spine Health Provider or Pain Management Provider at [facility]? No If answer is YES please [...] facility where the MRI/CT/myelogram was completed: [place] [address] MRI/CT/myelogram viewable in Epic: No If not, please provide [phone] to fax in imaging reports for review. Also, please inform patient to hand carry imaging disc to appointment. XR (spine) within 12 months: Yes If YES,? please ask for the name/address of the facility where the XR was completed: [facility] [place] [address] [place] [address] Dr. Humphreys's patients: Have you had previous [...] injections and/or physical therapy was completed Injections: [facility] [address] [place] [address] PT: unable to recall facility Have you [...] where the surgery was completed: Additional Comments [phone] [facility] 05-27-2022 Evaluation note Encounter Date Diagnosis [...] and agrees. A referral will be sent [employer] Other evaluation note* Diagnosis Fibromyalgia- Primary Mylagia and myositis, unspecified Cervicalgia [facility] noteNo InformationNort [employer] Other Evaluation note* Diagnosis Age-related nuclear cataract [...] History arthroscopy shoulder Hospitalization History see above [employer] Other reason for visit [facility]arr[facility]Referral update [facility] [employer] Other Summary Purpose Family History No Family [...] Diagnosis 1 Neck pain (M54.2) Referral Organization [facility] urosurgery Referring Provider First Name Prasad Referring Provider Last Name Maame Referring Provider Specialty Neurologica l Surgery Referred Organization [facility] Pain Managemen t Referred Provider Bentley Bragg Referred Address [address] [place] [phone] Referred Provider Specialty Pain Medicin e Referral Priority Routine General Notes Jenifer Ramírez 022 08:31:51 AM >Received today and sent P2P Esthela Navarro 06/03/2022 02:35:54 PM >fyi patient declined seeing Dr Bragg, she stated she has returned to her previous PM provider in [place] Jenifer Ramírez 06/03/2022 02:59:27 PM >OK, thank you for the update. Telephone encounter was sent Additional Source Comments INFORMATION SOURCE (unrecogn ized section and content) DATE CREATED AUTHOR 07/22/2018 [facility] DATE CREATED AUTHOR AUTHOR'S ORGANIZ ATION 06/23/2022 [facility] DATE CREATED AUTHOR AUTHOR'S ORGANIZ ATION 07/02/2022 [facility] DATE CREATED AUTHOR AUTHOR'S ORGANIZ ATION 01/13/2024 [facility] DATE CREATED AUTHOR AUTHOR'S ORGANIZ ATION 01/19/2024 [facility] DATE CREATED AUTHOR AUTHOR'S ORGANIZ ATION 01/20/2024 [facility] DATE CREATED AUTHOR AUTHOR'S ORGANIZ ATION 01/27/2024 [facility] Source Comments (unrecognize d section and content) In the event this informatio n is protected by the Federal Confidentiality of Alcohol and Drug Abuse Patient Records regulations: The Federal rules restrict any use of the information to criminally investigate or prosecute any alcohol or drug abuse patient.[facility] the event this information is protected by the Federal Confidentiality of Alcohol and Drug Abuse Patient Records regulations: The Federal rules restrict any use of the information to criminally investigate or prosecute any alcohol or drug abuse patient.[facility] Care Teams (unrecognized sec tion and content) Service Trainer Relationship Specialty Start Date End Date Anitha Mcgregor MD [address] [facility] [place] [address] PCP - General 09/07/09 Luli Roy (Hist), MD [address] Cace[address] [facility], [place] [id number] Referring Gastroenterology 05/04/18 Service Trainer Relationship Specialty Start Date End Date Anitha Mcgregor MD [address] [facility] [place] [address] PCP - General 09/07/09 Luli Roy (Hist), MD Aron Hagan [place], [place] [id number] Referring Gastroenterology 05/04/18 Service Trainer Relationship Specialty Start Date End Date Anitha Mcgregor MD [address] [place] [facility] [address] PCP - General Family Medicine 07/27/23 Reason [...] BE BASED ON THE PRIMARY CLINICAL RECORDS. [facility] [employer] provides no warranty or guarantee of the accuracy or completeness of information in this document.
[2024-03-10 11:20] LABS: Estimated GFR (African America >60 (>=60); Estimated GFR (Non-African Ame 56 (>=60)
== END 2024-03-10 10:34 | disposition home or self-care (01) ==
LOC: LAB 10:34
PROVIDERS: PCP Family Medicine; Visit Provider Family Medicine
DX: Z09 Encounter for follow-up examination after completed treatment for conditions other than malignant neoplasm (principal)
CPT/HCPCS: 36415; 82565

== ENCOUNTER 2024-03-14 07:53 | Outpatient (OUT) | payer MEDICARE, SELFPAY ==
--- NOTE | 2024-03-14 07:59 | MR_ITS ---
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 FINDINGS: The cerebral sulci as well as ventricular system are appropriate for age. There is no restricted diffusion. Hyperintensities on T2 and FLAIR images in the garza radiata and centrum semiovale with sparing of U fibers are nonspecific, statistically most likely consistent with mild microvascular ischemic changes. There is no intracranial mass, mass effect, midline shift, intra or extra-axial fluid collection or large hemorrhage. No abnormal enhancing lesion is noted. Pituitary gland: No abnormality of the pituitary gland is noted. The pituitary stalk is in midline. The cavernous sinuses and optic chiasma are unremarkable. Normal flow-void in the intracranial vessels is noted. The visualized portions of orbits, mastoid air cells as well as paranasal sinuses are unremarkable. There is status post bilateral lens replacement. MR/MR pituitary wo/w con IMPRESSION: No acute intracranial process is noted. No abnormality of the pituitary gland is noted. Electronically authenticated by: CHAD GUSTAFSON Date: 03/14/2024 13:17
--- OUTSIDE RECORDS SUMMARY | 2024-03-14 08:01 | XMS_ITS | CCD ---
Author Organization [facility] Care Team Providers Care Caster Investment Casting Name Role Phone [place] Attending Unavailable Anitha Mcgregor Primary Care Unavailable Anitha Mcgregor MD Primary Care Provider [phone] Luli Roy MD (Hist) Unavailable [phone] ANITHA MCGREGOR Primary Care Unavailable BENJAMIN MOORE Attending Unavailable KAROLINE, DR WELSH Consulting Unavailable KAROLINE, DR WELSH Primary Care Unavailable KAROLINE, DR WELSH Attending Unavailable HOY, DR WELSH Admitting Unavailable ZIEBER, DR TYRELL Alonzo Consulting Unavailable HOY, DR WELSH Consulting Unavailable HOY, DR WELSH Attending Unavailable HOY, DR WELSH Admitting Unavailable HOTyrno, DR WELSH Primary Care Unavailable HOTyron, DR [...] Provider UnavailAnitha Montague MD Primary Care Provider [phone] CINDY PHAN Attending Unavailable ORAL MANSFIELD Referring [...] Allergy 06-03-20 22 Other: See Comments, Rash [facility] (3 sources) Adhesive Tape; Translations: [ADHESIVE TAPE (ROSINS)] Allergy to substance Other: See Comments [facility] (7 sources) Aspirin; Translations: [ASPIRIN] Drug Allergy 09-14-19 10 Unknown [facility] (3 sources) Butorphanol; Translations: [BUTORPHANOL TARTRATE] Drug Allergy 09-14-19 10 Other: See Comments [facility] (8 sources) Ciprofloxacin; Translations: [CIPROFLOXACIN] Drug Allergy 06-03-20 22 Other: See Comments, Rash [facility] (3 sources) Etodolac; Translations: [ETODOLAC] Drug Allergy 09-14-19 10 [facility] (3 sources) homatropine / HYDROcodone; Translations: [HYDROCODONE-HOMATR OPINE] Drug Allergy Other: See Comments [facility] (3 sources) HYDROmorphone; Translations: [HYDROMORPHONE (BULK)] Drug Allergy 04-10-20 11 Rash [facility] (8 sources) Morphine; Translations: [MORPHINE] Drug Allergy 09-14-19 10 Unknown [facility] (3 sources) Promethazine; Translations: [PROMETHAZINE HCL] Drug Allergy 09-14-19 10 [facility] (1 source) Acetaminophen / oxyCODONE Drug Allergy [facility] Repository (1 source) Aspirin Drug Allergy [facility] Repository (5 sources) Butorphanol; Translations: [Stadol] Drug Allergy Unknown [facility] Repository (1 source) Ciprofloxacin Drug Allergy [facility] Repository (1 source) Desonide Drug Allergy [facility] Repository (3 sources) Etodolac; Translations: [Lodine] Drug Allergy [facility] Repository (1 source) homatropine Drug Allergy [facility] Repository (3 sources) HYDROmorphone; Translations: [Dilaudid] Drug Allergy [facility] Repository (3 sources) Levamisole; Translations: [Phenergan] Drug Allergy [facility] Repository (1 source) Morphine Drug Allergy [facility] Repository (1 source) Bleach (Sodium Hypochlorite) Drug allergy (disorder) 01-11-19 56 [facility] Repository (3 sources) HYDROmorphone Drug Allergy 04-10-20 11 Rash [facility] Other (2 sources) Promethazine Drug Allergy Unknown [facility] Other (2 sources) traMADol Drug Allergy Unknown [facility] Other (1 source) Aluminum aspirin Drug Allergy 09-14-19 10 Anaphylaxis [facility] Work Phone: (1 source) Butorphanol Drug Allergy 09-14-19 10 Rash [facility] (1 source) Etodolac Propensity to adverse reactions 09-14-19 10 Rash [facility] (1 source) Promethazine Drug Allergy 09-14-19 10 [facility] (1 source) Sulfamethoxazole / Trimethoprim Drug Allergy 06-03-20 [facility] (1 source) Theophylline Drug Allergy 06-03-20 [facility] (2 sources) Acetaminophen / oxyCODONE; Translations: [Percocet 5/325] Drug Allergy [facility] Repository (2 sources) Adhesive Tape; Translations: [Tape] Propensity to adverse reactions (disorder) [facility] Repository (2 sources) homatropine / HYDROcodone; Translations: [Hydromet] Drug Allergy [facility] Repository Medications Current Medications Medication Drug Class(es) [...] th every 8 hours as needed. amylase 332831 unt / lipase 20114 unt / protease 33334 unt delayed release oral capsule (2 sources) [...] affected ar ea twice daily. estrogens, conjugated (prison) 0.625 mg/ml vaginal cream (2 sources) Estrogen [...] 06-19-19 Episodic Other aftercare (1 source) Other intermediate project manager (current) drug therapy; Translations: [OTH SENIOR CARE CURRENT DRUG THERAPY] Onset: 06-19-19 Episodic Other [...] na DAP = na Normal [facility] BMPon 01-18-2024 Anion gap [Moles/Vol] 10 mmol/L Normal 6-16 [facility] Comment on above: Performed By: #### 2 [id number] #### [facility] [address] [place] [address] Calcium [Mass/Vol] 9.6 mg/dL Normal 8.9-11.1 [facility] Comment on above: Performed By: #### 2 [id number] #### [facility] [address] [place] [address] Chloride [Moles/Vol] 107 mmol/L Normal 101-111 [facility] Comment on above: Performed By: #### 2 [id number] #### [facility] [address] [place] [address] CO2 [Moles/Vol] 26 mmol/L Normal 21-31 [facility] Comment on above: Performed By: #### 2 [id number] #### [facility] [address] [place] [address] Creatinine [Mass/Vol] 0.9 mg/dL Normal 0.5-1.3 [facility] Comment on above: Performed By: #### 2 [id number] #### [facility] [address] [place] [address] Glucose [Mass/Vol] 95 mg/dL Normal 55-199 [facility] Comment on above: Performed By: #### 2 201924 #### [facility] [address] [place] [address] Potassium [Moles/Vol] 3.9 mmol/L Normal 3.5-5.3 [facility] Comment on above: Performed By: #### 2 043454 #### [facility] [address] [place] [address] Sodium [Moles/Vol] 139 mmol/L Normal 135-145 [facility] Comment on above: Performed By: #### 2 204016 #### [facility] [address] [place] [address] Urea nitrogen [Mass/Vol] 9 mg/dL Normal 5-21 [facility] Comment on above: Performed By: #### 2 145585 #### [facility] [address] [place] [address] Urea nitrogen/Creatinine [Mass ratio] 10 No Units Normal 10-20 [facility] Comment on above: Performed By: #### 2 [id number] #### [facility] [address] [place] [address] CBC w/Indiceson 01-18-2024 Erythrocyte distribution width (RBC) [Ratio] 14.5 % High 10.9-14.2 [facility] Comment on above: Performed By: #### 2 [id number] #### [facility] [address] [place] [address] Hematocrit (Bld) [Volume fraction] 43.1 % Normal 34.0-46.0 [facility] Comment on above: Performed By: #### 2 [id number] #### [facility] [address] [place] [address] Hemoglobin (Bld) [Mass/Vol] 14.5 g/dL Normal 12.0-16.0 [facility] Comment on above: Performed By: #### 2 202840 #### [facility] [address] [place] [address] MCH (RBC) [Entitic mass] 30.6 pg Normal 27.0-34.0 [facility] Comment on above: Performed By: #### 2 982408 #### [facility] [address] [place] [address] MCHC (RBC) [Mass/Vol] 33.6 g/dL Normal 31.4-36.0 [facility] Comment on above: Performed By: #### 2 810037 #### [facility] [address] [place] [address] MCV (RBC) [Entitic vol] 91.0 fL Normal 80.0-100.0 [facility] Comment on above: Performed By: #### 2 [id number] #### [facility] [address] [place] [address] Platelet mean volume (Bld) [Entitic vol] 7.5 fL Normal 6.4-10.8 [facility] Comment on above: Performed By: #### 2 634554 #### [facility] [address] [place] [address] Platelets (Bld) [#/Vol] 300.0 E9/L Normal 150.0-500.0 [facility] Comment on above: Performed By: #### 2 621015 #### [facility] [address] [place] [address] RBC (Bld) [#/Vol] 4.7 E12/L Normal 4.3-5.9 [facility] Comment on above: Performed By: #### 2 471459 #### [facility] [address] [place] [address] RBC size Nom (Bld) NORMAL Invalid Interpretation Code [facility] Comment on above: Performed By: #### 2 [id number] #### [facility] [address] [place] [address] WBC corrected for nucl RBC Auto (Bld) [#/Vol] 5.9 E9/L Normal 4.0-11.0 [facility] Comment on above: Performed By: #### 2 286722 #### [facility] [address] [place] [address] eGFRon 01-18-2024 eGFR 70 mL/min/1.73 m2 Normal >=59 [facility] Comment on above: Order Comment: Order added by Discern Expert. Performed By: #### 1 [id number] #### [facility] [address] [place] [address] AMYLASEon 07-01-2022 Amylase [Catalytic activity/Vol] 117 U/L Critically high 25-115 [facility] Comment on above: Performed By: #### T SH, T7, ALIYAH, LIPA, CMP ####[facility] [address] [place], [place] [address]DrKim Wayne CBC AUTO DIFFon 07-01-2022 BASO # 0.1 103/ul Normal 0.0-0.1 [facility] Comment on above: Performed By: #### C BC ####[facility] [address] [place], [place] [address]Dr. Lawrence Wayne Basophils/100 WBC (Bld) 0.6 % Normal 0.2-2.0 [facility] Comment on above: Performed By: #### C BC ####[facility] [address] [place] [address]Dr. Lawrence Wayne EO # 0.1 103/ul Normal 0.0-0.7 [facility] Comment on above: Performed By: #### C BC ####[facility] [address] [place], [place] [address]Dr. Lawrence Wayne Eosinophils/100 WBC (Bld) 0.7 % Critically low 0.9-7.0 [facility] Comment on above: Performed By: #### C BC ####[facility] [address] [place], [place] [address]Dr. Lawrence Wayne Erythrocyte distribution width (RBC) [Ratio] 13.6 % Normal 11.0-15.0 [facility] Comment on above: Performed By: #### C BC ####[facility] L[address] [place], [place] [address]Dr. Lawrence Wayne Hematocrit (Bld) [Volume fraction] 45.6 % Normal 36.0-48.0 [facility] Comment on above: Performed By: #### C BC ####[facility] [address] [place], [place] [address]Dr. Lawrence Wayne Hemoglobin (Bld) [Mass/Vol] 15.4 g/dL Normal 12.0-16.0 [facility] Comment on above: Performed By: #### C BC ####[facility] [address] [place], [place] [address]Dr. Lawrence Wayne IG # 0.03 10e3/ul Normal 0.00-0.03 [facility] Comment on above: Performed By: #### C BC ####[facility] [address] [place], [place] [address]Dr. Lawrence Wayne IG % 0.4 % Normal 0.0-0.5 [facility] Comment on above: Performed By: #### C BC ####[facility] [address] [place] [id number]. Lawrence Tone LYMPH # 2.8 103/ul Normal 1.2-3.8 [facility] Comment on above: Performed By: #### C BC ####[facility] [address] [place] [address]Dr. Lawrence Tone Lymphocytes/100 WBC (Bld) 33.5 % Normal 20.5-60.0 [facility] Comment on above: Performed By: #### C BC ####[facility] [address] [place] [address]Dr. Lawrence Tone MANUAL DIFF REQ NO Normal [facility] Comment on above: Performed By: #### C BC ####[facility] [address] [place] [address]Dr. Lawrence Tone MCH (RBC) [Entitic mass] 30.1 pg Normal 26.7-34.0 [facility] Comment on above: Performed By: #### C BC ####[facility] [address] [place], [place] [address]Dr. Lawrence Tone MCHC (RBC) [Mass/Vol] 33.8 g/dL Normal 29.9-35.2 [facility] Comment on above: Performed By: #### C BC ####[facility] [address] [place] [address]Dr. Laraantonio Wayne MCV (RBC) [Entitic vol] 89.2 fL Normal 81.0-99.0 [facility] Comment on above: Performed By: #### C BC ####[facility] [address] [place], [place] [address]Dr. Lawrence Tone MONO # 0.8 103/ul Normal 0.3-0.8 [facility] Comment on above: Performed By: #### C BC ####[facility] [address] [place], [place] [address]Dr. Laraantonio Wayne Monocytes/100 WBC (Bld) 9.3 % Normal 1.7-12.0 [facility] Comment on above: Performed By: #### C BC ####[facility] [address] [place], [place] [address]Dr. Lawrence Wayne NEUT # 4.6 103/ul Normal 1.4-6.5 [facility] Comment on above: Performed By: #### C BC ####[facility] [address] [place] [address]Dr. Lawrence Wayne Neutrophils/100 WBC (Bld) 55.5 % Normal 43.0-75.0 [facility] Comment on above: Performed By: #### C BC ####[facility] [address] [place] [address]Dr. Lawrence Wayne Platelet mean volume (Bld) [Entitic vol] 8.6 fL Critically low 9.5-13.5 [facility] Comment on above: Performed By: #### C BC ####[facility] [address] [place] [address]Dr. Lawrence Wayne PLT 380 103/ul Normal 150-450 [facility] Comment on above: Performed By: #### C BC ####[facility] [address] [place] [address]Dr. Lawrence Wayne RBC 5.11 106/ul Normal 4.20-5.40 [facility] Comment on above: Performed By: #### C BC ####[facility] [address] [place] [address]Dr. Lawrence Wayne WBC 8.3 103/ul Normal 4.0-11.0 [facility] Comment on above: Performed By: #### C BC ####[facility] [address] [place] [address]Dr. Lawrence Wayne FREE THYROXINE INDEX T7on FTI 3.28 Normal 1.30-4.50 [facility] Comment on above: Performed By: #### T SH, T7, ALIYAH, LIPA, CMP ####[facility] [address] [place] [address]Dr. Lawrence Wayne T3U 36.0 % Normal 30.0-39.0 [facility] Comment on above: Performed By: #### T SH, T7, ALIYAH, LIPA, CMP ####[facility] [address] [place] [address]Dr. Lawrence Wayne T4 [Mass/Vol] 9.10 ug/dL Normal 4.80-13.90 [facility] Comment on above: Performed By: #### T SH, T7, ALIYAH, LIPA, CMP ####[facility] [address] [place] [address]Dr. Lawrence Wayne LIPASEon 07-01-2022 Lipase [Catalytic activity/Vol] 125.0 U/L Normal 73.0-393.0 [facility] Comment on above: Performed By: #### T SH, T7, ALIYAH, LIPA, CMP ####[facility] [address] [place] [address]Dr. Lawrence Wayne PROF 14(COMP METB)on 023 Albumin [Mass/Vol] 3.8 g/dL Normal 3.4-5.0 [facility] Comment on above: Performed By: #### T SH, T7, ALIYAH, LIPA, CMP ####[facility] [address] [place] [address]Dr. Lawrence Wayne Albumin/Globulin [Mass ratio] 1.1 {ratio} Normal [facility] Comment on above: Performed By: #### T SH, T7, ALIYAH, LIPA, CMP ####[facility] [address] [place] [address]Dr. Lawrence Wayne ALP [Catalytic activity/Vol] 104 U/L Normal 46-116 [facility] Comment on above: Performed By: #### T SH, T7, ALIYAH, LIPA, CMP ####[facility] [address] [place] [address]Dr. Lawrence Wayne ALT [Catalytic activity/Vol] 36 U/L Normal 14-59 [facility] Comment on above: Performed By: #### T SH, T7, ALIYAH, LIPA, CMP ####[facility] [address] [place] [address]Dr. Lawrence Wayne Anion gap [Moles/Vol] 11.7 mmol/L Normal [facility] Comment on above: Performed By: #### T SH, T7, ALIYAH, LIPA, CMP ####[facility] [address] [place] [address]Dr. Lawrence Wayne AST [Catalytic activity/Vol] 22 U/L Normal 15-37 [facility] Comment on above: Performed By: #### T SH, T7, ALIYAH, LIPA, CMP ####[facility] [address] [place] [address]Dr. Lawrence Wayne Bilirubin [Mass/Vol] 0.5 mg/dL Normal 0.2-1.0 [facility] Comment on above: Performed By: #### T SH, T7, ALIYAH, LIPA, CMP ####[facility] [address] [place] [address]Dr. Lawrence Wayne Calcium [Mass/Vol] 9.8 mg/dL Normal 8.5-10.1 [facility] Comment on above: Performed By: #### T SH, T7, ALIYAH, LIPA, CMP ####[facility] [address] [place], [place] [address]Dr. Lawrence Wayne Chloride [Moles/Vol] 102 mmol/L Normal 98-107 [facility] Comment on above: Performed By: #### T SH, T7, ALIYAH, LIPA, CMP ####[facility] [address] [place], [place] [address]Dr. Lawrence Wayne CO2 [Moles/Vol] 29.3 mmol/L Normal 21.0-32.0 [facility] Comment on above: Performed By: #### T SH, T7, ALIYAH, LIPA, CMP ####[facility] [address] [place], [place] [address]Dr. Lawrence Wayne Creatinine [Mass/Vol] 0.88 mg/dL Normal 0.55-1.02 [facility] Comment on above: Performed By: #### T SH, T7, ALIYAH, LIPA, CMP ####[facility] [address] [place] [address]Dr. Lawrence Wayne EGFR-AF RUSSIAN >60 Normal >=60 [facility] Comment on above: Performed By: #### T SH, T7, ALIYAH, LIPA, CMP ####[facility] [address] [place] [address]Dr. Lawrence Wayne EGFR-NON AF RUSSIAN >60 Normal >=60 [facility] Comment on above: Performed By: #### T SH, T7, ALIYAH, LIPA, CMP ####[facility] [address] [place] [address]Dr. Lawrence Wayne Globulin (S) [Mass/Vol] 3.5 g/dL Normal [facility] Comment on above: Performed By: #### T SH, T7, ALIYAH, LIPA, CMP ####[facility] [address] [place] [address]Dr. Lawrence Wayne Glucose [Mass/Vol] 98 mg/dL Normal 74-106 [facility] Comment on above: Performed By: #### T SH, T7, ALIYAH, LIPA, CMP ####[facility] [address] [place] [address]Dr. Lawrence Wayne Potassium [Moles/Vol] 3.9 mmol/L Normal 3.5-5.1 [facility] Comment on above: Performed By: #### T SH, T7, ALIYAH, LIPA, CMP ####[facility] [address] [place] [address]Dr. Lawrence Wayne Protein [Mass/Vol] 7.3 g/dL Normal 6.4-8.2 [facility] Comment on above: Performed By: #### T SH, T7, ALIYAH, LIPA, CMP ####[facility] [address] [place] [address]Dr. Laralan Wayne Sodium [Moles/Vol] 139 mmol/L Normal 136-145 [facility] Comment on above: Performed By: #### T SH, T7, ALIYAH, LIPA, CMP ####[facility] [address] [place] [address]Dr. Lawrence Wayne Urea nitrogen [Mass/Vol] 11.0 mg/dL Normal 7.0-18.0 [facility] Comment on above: Performed By: #### T SH, T7, ALIYAH, LIPA, CMP ####[facility] [address] [place] [id number]. Lawrence Wayne Urea nitrogen/Creatinine [Mass ratio] 12.5 mg/mg Normal [facility] Comment on above: Performed By: #### T SH, T7, ALIYAH, LIPA, CMP ####[facility] [address] [place] [id number] Wayne TSHon 07-01-2022 TSH 1.744 uIU/mL Normal 0.358-3.740 [facility] Comment on above: Performed By: #### T SH, T7, ALIYAH, LIPA, CMP ####[facility] [address] [place] [address]DrKim Wayne CBC AUTO DIFFon 06-17-2022 BASO # 0.0 103/ul Normal 0.0-0.1 [facility] Comment on above: Performed By: #### A MY, CMP, LIPA #### [facility] [address] [place] [address] [address] Lawrence Wayne Basophils/100 WBC (Bld) 0.4 % Normal 0.2-2.0 [facility] Comment on above: Performed By: #### A MY, CMP, LIPA #### [facility] [address] [place] [address] [address] Lawrence Wayne EO # 0.0 103/ul Normal 0.0-0.7 [facility] Comment on above: Performed By: #### A MY, CMP, LIPA #### [facility] [address] [place] [address] [address] Lawrence Wayne Eosinophils/100 WBC (Bld) 0.8 % Critically low 0.9-7.0 [facility] Comment on above: Performed By: #### A MY, CMP, LIPA #### [facility] [address] [place] [address] [address] Lawrence Wayne Erythrocyte distribution width (RBC) [Ratio] 13.2 % Normal 11.0-15.0 [facility] Comment on above: Performed By: #### A MY, CMP, LIPA #### [facility] [address] [place] [address] [address] Lawrence Wayne Hematocrit (Bld) [Volume fraction] 43.1 % Normal 36.0-48.0 [facility] Comment on above: Performed By: #### A MY, CMP, LIPA #### [facility] [address] [place] [address] Dr. Lawrence Wayne Hemoglobin (Bld) [Mass/Vol] 15.1 g/dL Normal 12.0-16.0 [facility] Comment on above: Performed By: #### A MY, CMP, LIPA #### [facility] [address] [place] [address] Dr. Lawrence Wayne IG # 0.03 10e3/ul Normal 0.00-0.03 [facility] Comment on above: Performed By: #### A MY, CMP, LIPA #### [facility] [address] [place] [address] Dr. Lawrence Wayne IG % 0.6 % Critically high 0.0-0.5 [facility] Comment on above: Performed By: #### A MY, CMP, LIPA #### [facility] [address] [place] [address] Dr. Lawrence Wayne LYMPH # 1.1 103/ul Critically low 1.2-3.8 [facility] Comment on above: Performed By: #### A MY, CMP, LIPA #### [facility] [address] [place] [address] Dr. Lawrence Wayne Lymphocytes/100 WBC (Bld) 22.0 % Normal 20.5-60.0 [facility] Comment on above: Performed By: #### A MY, CMP, LIPA #### [facility] [address] [place] [address] Dr. Lawrence Wayne MANUAL DIFF REQ NO Normal [facility] Comment on above: Performed By: #### A MY, CMP, LIPA #### [facility] [address] [place] [address] Dr. Lawrence Wayne MCH (RBC) [Entitic mass] 30.3 pg Normal 26.7-34.0 [facility] Comment on above: Performed By: #### A MY, CMP, LIPA #### [facility] [address] [place] [address] Dr. Lawrence Wayne MCHC (RBC) [Mass/Vol] 35.0 g/dL Normal 29.9-35.2 [facility] Comment on above: Performed By: #### A MY, CMP, LIPA #### [facility] [address] [place] [address] Dr. Lawrence Wayne MCV (RBC) [Entitic vol] 86.4 fL Normal 81.0-99.0 [facility] Comment on above: Performed By: #### A MY, CMP, LIPA #### [facility] [facility] [address] [place] [address] Dr. Lawrence Wayne MONO # 0.7 103/ul Normal 0.3-0.8 [facility] Comment on above: Performed By: #### A MY, CMP, LIPA #### [facility] [address] [place] [address] Dr. Lawrence Wayne Monocytes/100 WBC (Bld) 13.6 % Critically high 1.7-12.0 [facility] Comment on above: Performed By: #### A MY, CMP, LIPA #### [facility] [address] [place] [address] Dr. Lawrence Wayne NEUT # 3.2 103/ul Normal 1.4-6.5 [facility] Comment on above: Performed By: #### A MY, CMP, LIPA #### [facility] [address] [place] [address] Dr. Lawrence Wayne Neutrophils/100 WBC (Bld) 62.6 % Normal 43.0-75.0 [facility] Comment on above: Performed By: #### A MY, CMP, LIPA #### [facility] [address] [place] [address] Dr. Lawrence Wayne Platelet mean volume (Bld) [Entitic vol] 9.0 fL Critically low 9.5-13.5 [facility] Comment on above: Performed By: #### A MY, CMP, LIPA #### [facility] [address] [place] [address] Dr. Lawrence Wayne PLT 257 103/ul Normal 150-450 [facility] Comment on above: Performed By: #### A MY, CMP, LIPA #### [facility] [address] [place] [address] Dr. Lawrence Wayne RBC 4.99 106/ul Normal 4.20-5.40 [facility] Comment on above: Performed By: #### A MY, CMP, LIPA #### [facility] [address] [place] [address] Dr. Lawrence Wayne WBC 5.1 103/ul Normal 4.0-11.0 [facility] Comment on above: Performed By: #### A MY, CMP, LIPA #### [facility] [address] [place] [address] Dr. Lawrence Wayne INFLUENZA A AND B AGon 06-17 [facility] SEE BELOW Normal [facility] Comment on above: Result Comment: Nega tive for Flu B protein antigen. Infection due to Flu B cannot be ruled out. Flu B antigen in the sample may be below the detection limit of the test. Performed By: #### A MY, CMP, LIPA #### [facility] [address] [place] [address] Dr. Lawrence Wayne INFLUENZA A AG Positive Abnormal NEGATIVE SEE COMMENT [facility] Comment on above: Performed By: #### A MY, CMP, LIPA #### [facility] [address] [place] [address] Dr. Lawrence Wayne INFLUENZA B AG Negative Normal NEGATIVE SEE COMMENT [facility] Comment on above: Performed By: #### A MY, CMP, LIPA #### [facility] [address] [place] [address] Dr. Lawrence Wayne PROF 14(COMP METB)on 023 Albumin [Mass/Vol] 3.4 g/dL Normal 3.4-5.0 [facility] Comment on above: Performed By: #### A MY, CMP, LIPA #### [facility] [address] [place] [address] Dr. Lawrence Wayne Albumin/Globulin [Mass ratio] 0.9 {ratio} Normal [facility] Comment on above: Performed By: #### A MY, CMP, LIPA #### [facility] [address] [address] [address] Lawrence Wayne ALP [Catalytic activity/Vol] 94 U/L Normal 46-116 [facility] Comment on above: Performed By: #### A MY, CMP, LIPA #### [facility] [address] [address] [address] Lawrence Wayne ALT [Catalytic activity/Vol] 36 U/L Normal 14-59 [facility] Comment on above: Performed By: #### A MY, CMP, LIPA #### [facility] [address] [address] [address] Lawrence Wayne Anion gap [Moles/Vol] 18.9 mmol/L Normal [facility] Comment on above: Performed By: #### A MY, CMP, LIPA #### [facility] [address] [address] [address] Lawrence Wayne AST [Catalytic activity/Vol] 32 U/L Normal 15-37 [facility] Comment on above: Performed By: #### A MY, CMP, LIPA #### [facility] [address] [address] [address] Lawrence Wayne Bilirubin [Mass/Vol] 0.4 mg/dL Normal 0.2-1.0 [facility] Comment on above: Performed By: #### A MY, CMP, LIPA #### [facility] [address] [place] [address] Dr. Lawrence Wayne Calcium [Mass/Vol] 9.1 mg/dL Normal 8.5-10.1 [facility] Comment on above: Performed By: #### A MY, CMP, LIPA #### [facility] [address] [place] [address] Dr. Lawrence Wayne Chloride [Moles/Vol] 100 mmol/L Normal 98-107 [facility] Comment on above: Performed By: #### A MY, CMP, LIPA #### [facility] [address] [address] [address] Lawrence Wayne CO2 [Moles/Vol] 19.7 mmol/L Critically low 21.0-32.0 [facility] Comment on above: Performed By: #### A MY, CMP, LIPA #### [facility] [address] [address] [address] Lawrence Wayne Creatinine [Mass/Vol] 1.13 mg/dL Critically high 0.55-1.02 [facility] Comment on above: Performed By: #### A MY, CMP, LIPA #### [facility] [address] [address] [address] Lawrence Wayne EGFR-AF RUSSIAN 58 mL/min/1.73m2 Critically low >=60 [facility] Comment on above: Performed By: #### A MY, CMP, LIPA #### [facility] [address] [address] [address] Lawrence Wayne EGFR-NON AF RUSSIAN 48 mL/min/1.73m2 Critically low >=60 [facility] Comment on above: Performed By: #### A MY, CMP, LIPA #### [facility] [address] [address] [address] Lawrence Wayne Globulin (S) [Mass/Vol] 3.9 g/dL Normal [facility] Comment on above: Performed By: #### A MY, CMP, LIPA #### [facility] [address] [address] [address] Lawrence Wayne Glucose [Mass/Vol] 105 mg/dL Normal 74-106 [facility] Comment on above: Performed By: #### A MY, CMP, LIPA #### [facility] [address] [address] [address] Lawrence Wanye Potassium [Moles/Vol] 3.6 mmol/L Normal 3.5-5.1 [facility] Comment on above: Performed By: #### A MY, CMP, LIPA #### [facility] [address] [address] [address] Lawrence Wayne Protein [Mass/Vol] 7.3 g/dL Normal 6.4-8.2 [facility] Comment on above: Performed By: #### A MY, CMP, LIPA #### [facility] [address] [address] [address] Lawrence Wayne Sodium [Moles/Vol] 135 mmol/L Critically low 136-145 [facility] Comment on above: Performed By: #### A MY, CMP, LIPA #### [facility] [address] [address] [address] Lawrence Wayne Urea nitrogen [Mass/Vol] 13.0 mg/dL Normal 7.0-18.0 [facility] Comment on above: Performed By: #### A MY, CMP, LIPA #### [facility] [address] [place] [address] Dr. Lawrence Wayne Urea nitrogen/Creatinine [Mass ratio] 11.5 mg/mg Normal [facility] Comment on above: Performed By: #### A MY, CMP, LIPA #### [facility] [address] [place] [address] Dr. Lawrence Wayne MRI CSPINE WO CONon [...] TYRELL MOREJON Date: 2022-05-20 10:26 Normal [facility] AMYLASEon 05-07-2022 Amylase [Catalytic activity/Vol] 81 U/L Normal 25-115 [facility] Comment on above: Performed By: #### A MY, CMP, LIPA #### [facility] [address] [place] [address] Dr. Lawrence Wayne CBC AUTO DIFFon 05-07-2022 BASO # 0.0 103/ul Normal 0.0-0.1 [facility] Comment on above: Performed By: #### A MY, CMP, LIPA #### [facility] [address] [place] [address] Dr. Lawrence Wayne Basophils/100 WBC (Bld) 0.8 % Normal 0.2-2.0 [facility] Comment on above: Performed By: #### A MY, CMP, LIPA #### [facility] [address] [place] [address] Dr. Lawrence Wanye EO # 0.1 103/ul Normal 0.0-0.7 [facility] Comment on above: Performed By: #### A MY, CMP, LIPA #### [facility] [address] [address] [address] Lawrence Wayne Eosinophils/100 WBC (Bld) 1.5 % Normal 0.9-7.0 [facility] Comment on above: Performed By: #### A MY, CMP, LIPA #### [facility] [address] [place] [address] Dr. Lawrence Wayne Erythrocyte distribution width (RBC) [Ratio] 12.7 % Normal 11.0-15.0 [facility] Comment on above: Performed By: #### A MY, CMP, LIPA #### [facility] [address] [place] [address] Dr. Lawrence Wayne Hematocrit (Bld) [Volume fraction] 40.5 % Normal 36.0-48.0 [facility] Comment on above: Performed By: #### A MY, CMP, LIPA #### [facility] [address] [place] [address] Dr. Lawrence Wayne Hemoglobin (Bld) [Mass/Vol] 13.8 g/dL Normal 12.0-16.0 [facility] Comment on above: Performed By: #### A MY, CMP, LIPA #### [facility] [address] [place] [address] Dr. Lawrence Wayne IG # 0.01 10e3/ul Normal 0.00-0.03 [facility] Comment on above: Performed By: #### A MY, CMP, LIPA #### [facility] [address] [place] [address] Dr. Lawrence Wayne IG % 0.2 % Normal 0.0-0.5 [facility] Comment on above: Performed By: #### A MY, CMP, LIPA #### [facility] [address] [place] [address] Dr. Lawrence Wayne LYMPH # 1.7 103/ul Normal 1.2-3.8 [facility] Comment on above: Performed By: #### A MY, CMP, LIPA #### [facility] [address] [place] [address] Dr. Lawrence Wayne Lymphocytes/100 WBC (Bld) 32.7 % Normal 20.5-60.0 [facility] Comment on above: Performed By: #### A MY, CMP, LIPA #### [facility] [address] [place] [address] Dr. Lawrence Wayne MANUAL DIFF REQ NO Normal [facility] Comment on above: Performed By: #### A MY, CMP, LIPA #### [facility] [address] [place] [address] Dr. Lawrence Wayne MCH (RBC) [Entitic mass] 30.5 pg Normal 26.7-34.0 [facility] Comment on above: Performed By: #### A MY, CMP, LIPA #### [facility] [address] [place] [address] Dr. Lawrence Wayne MCHC (RBC) [Mass/Vol] 34.1 g/dL Normal 29.9-35.2 [facility] Comment on above: Performed By: #### A MY, CMP, LIPA #### [facility] [address] [place] [address] Dr. Lawrence Wayne MCV (RBC) [Entitic vol] 89.4 fL Normal 81.0-99.0 [facility] Comment on above: Performed By: #### A MY, CMP, LIPA #### [facility] [address] [place] [address] Dr. Lawrence Wayne MONO # 0.6 103/ul Normal 0.3-0.8 [facility] Comment on above: Performed By: #### A MY, CMP, LIPA #### [facility] [address] [place] [address] Dr. Lawrence Wayne Monocytes/100 WBC (Bld) 10.5 % Normal 1.7-12.0 [facility] Comment on above: Performed By: #### A MY, CMP, LIPA #### [facility] [address] [place] [address] Dr. Lawrence Wayne NEUT # 2.9 103/ul Normal 1.4-6.5 [facility] Comment on above: Performed By: #### A MY, CMP, LIPA #### [facility] [address] [place] [address] Dr. Lawrence Wayne Neutrophils/100 WBC (Bld) 54.3 % Normal 43.0-75.0 [facility] Comment on above: Performed By: #### A MY, CMP, LIPA #### [facility] [address] [place] [address] Dr. Lawrence Wayne Platelet mean volume (Bld) [Entitic vol] 9.4 fL Critically low 9.5-13.5 [facility] Comment on above: Performed By: #### A MY, CMP, LIPA #### [facility] [address] [place], [place] [address] Dr. Lawrence Wayne PLT 292 103/ul Normal 150-450 [facility] Comment on above: Performed By: #### A MY, CMP, LIPA #### [facility] [address] [address] [address] Lawrence Wayne RBC 4.53 106/ul Normal 4.20-5.40 [facility] Comment on above: Performed By: #### A MY, CMP, LIPA #### [facility] [address] [place] [address] Dr. Lawrence Wayne WBC 5.3 103/ul Normal 4.0-11.0 [facility] Comment on above: Performed By: #### A MY, CMP, LIPA #### [facility] [address] [place] [address] Dr. Lawrence Wayne LIPASEon 05-07-2022 Lipase [Catalytic activity/Vol] 86.0 U/L Normal 73.0-393.0 [facility] Comment on above: Performed By: #### A MY, CMP, LIPA #### [facility] [address] [place] [address] Dr. Lawrence Wayne PROF 14(COMP METB)on 022 Albumin [Mass/Vol] 3.7 g/dL Normal 3.4-5.0 [facility] Comment on above: Performed By: #### A MY, CMP, LIPA #### [facility] [address] [place] [address] Dr. Lawrence Wayne Albumin/Globulin [Mass ratio] 1.1 {ratio} Normal [facility] Comment on above: Performed By: #### A MY, CMP, LIPA #### [facility] [address] [place] [address] Dr. Lawrence Wayne ALP [Catalytic activity/Vol] 96 U/L Normal 46-116 [facility] Comment on above: Performed By: #### A MY, CMP, LIPA #### [facility] [address] [place] [address] Dr. Lawrenec Wayne ALT [Catalytic activity/Vol] 24 U/L Normal 14-59 [facility] Comment on above: Performed By: #### A MY, CMP, LIPA #### [facility] [address] [address] [address] Lawrence Wayne Anion gap [Moles/Vol] 8.3 mmol/L Normal [facility] Comment on above: Performed By: #### A MY, CMP, LIPA #### [facility] [address] [address] [address] Lawrence Wayne AST [Catalytic activity/Vol] 19 U/L Normal 15-37 [facility] Comment on above: Performed By: #### A MY, CMP, LIPA #### [facility] [address] [address] [address] Lawrence Wayne Bilirubin [Mass/Vol] 0.2 mg/dL Normal 0.2-1.0 [facility] Comment on above: Performed By: #### A MY, CMP, LIPA #### [facility] [address] [address] [address] Lawrence Wayne Calcium [Mass/Vol] 9.1 mg/dL Normal 8.5-10.1 [facility] Comment on above: Performed By: #### A MY, CMP, LIPA #### [facility] [address] [place] [address] Dr. Lawrence Wayne Chloride [Moles/Vol] 103 mmol/L Normal 98-107 [facility] Comment on above: Performed By: #### A MY, CMP, LIPA #### [facility] [address] [address] [address] Lawrence Wayne CO2 [Moles/Vol] 30.6 mmol/L Normal 21.0-32.0 [facility] Comment on above: Performed By: #### A MY, CMP, LIPA #### [facility] [address] [place] [address] Dr. Lawrence Wayne Creatinine [Mass/Vol] 0.88 mg/dL Normal 0.55-1.02 [facility] Comment on above: Performed By: #### A MY, CMP, LIPA #### [facility] [address] [place] [address] Dr. Lawrence Wayne EGFR-AF RUSSIAN >60 Normal >=60 [facility] Comment on above: Performed By: #### A MY, CMP, LIPA #### [facility] [address] [address] [address] Lawrence Wayne EGFR-NON AF RUSSIAN >60 Normal >=60 [facility] Comment on above: Performed By: #### A MY, CMP, LIPA #### [facility] [address] [address] [address] Lawrence Wayne Globulin (S) [Mass/Vol] 3.4 g/dL Normal [facility] Comment on above: Performed By: #### A MY, CMP, LIPA #### [facility] [address] [place] [address] Dr. Lawrence Wayne Glucose [Mass/Vol] 94 mg/dL Normal 74-106 [facility] Comment on above: Performed By: #### A MY, CMP, LIPA #### [facility] [address] [place] [address] Dr. Lawrence Wayne Potassium [Moles/Vol] 3.9 mmol/L Normal 3.5-5.1 [facility] Comment on above: Performed By: #### A MY, CMP, LIPA #### [facility] [address] [place] [address] Dr. aLwrence Wayne Protein [Mass/Vol] 7.1 g/dL Normal 6.4-8.2 [facility] Comment on above: Performed By: #### A MY, CMP, LIPA #### [facility] [address] [place] [address] Dr. Lawrence Wayne Sodium [Moles/Vol] 138 mmol/L Normal 136-145 [facility] Comment on above: Performed By: #### A MY, CMP, LIPA #### [facility] [address] [place] [address] Dr. Lawrence Wayne Urea nitrogen [Mass/Vol] 10.0 mg/dL Normal 7.0-18.0 [facility] Comment on above: Performed By: #### A MY, CMP, LIPA #### [facility] [address] [address] [address] Lawrence Wayne Urea nitrogen/Creatinine [Mass ratio] 11.4 mg/mg Normal [facility] Comment on above: Performed By: #### A MY, CMP, LIPA #### [facility] [address] [place], [place] [address] Dr. Lawrence Wayne MG MAMM SCREEN 3D QING CADon 03-26-2022 MG MAMM SCREEN 3D QING CAD Patient: SKIP HONG. Exam Date: 03/26/2022 : 1955 Gender:F Ordering : DR RADHA LYMAN . Admission #: [id number] Family : Order #: [id number] CLICK HERE TO VIEW EXAM RADIOLOGY REPORT [...] breast cancer at age 30. LOCATION: [facility] BREAST COMPOSITION: Heterogeneously dense,which may obscure small [...] MD on 03/26/2022 at 09:53 Normal [facility] NM STRESS/REST MULTIon 03-24 NM STRESS/REST MULTI Patient: MANISHA HONG. Exam Date: 03/24/2022 : 1955 Gender:F Ordering : DR ANITHA MCGREGOR . Admission #: [id number] Family : Order #: [id number] CLICK HERE TO VIEW EXAM RADIOLOGY REPORT [...] MD on 03/25/2022 at 07:15 Normal [facility] T4, T3U, FTI LABCORPon 02-19 Free Thyroxine Index 2.3 Normal 1.2-4.9 [facility] Comment on above: Performed By: #### A MY, CMP, LIPA #### [facility] [address] [address] [address] Lawrence Wayne T3 Uptake 28 % Normal 24-39 [facility] Comment on above: Performed By: #### A MY, CMP, LIPA #### [facility] [address] [address] [address] Lawrence Wayne T4 [Mass/Vol] 8.3 ug/dL Normal 4.5-12.0 [facility] Comment on above: Performed By: #### A MY, CMP, LIPA #### [facility] [address] [address] [address] Lawrence Wayne BNPon 02-18-2022 Natriuretic peptide B (Bld) [Mass/Vol] 78.0 pg/mL Normal <=900.0 [facility] Comment on above: Performed By: #### A MY, CMP, LIPA #### [facility] [address] [address] [address] Lawrence Wayne CBC AUTO DIFFon 02-18-2022 BASO # 0.1 103/ul Normal 0.0-0.1 [facility] Comment on above: Performed By: #### C BC ####[facility] [address] [address]DrKim Wayne Basophils/100 WBC (Bld) 0.9 % Normal 0.2-2.0 [facility] Comment on above: Performed By: #### C BC ####[facility] [address] [place], [place] [address]DrKim Wayne EO # 0.1 103/ul Normal 0.0-0.7 [facility] Comment on above: Performed By: #### C BC ####[facility] [address] [place], [place] [address]DrKim Wayne Eosinophils/100 WBC (Bld) 1.1 % Normal 0.9-7.0 [facility] Comment on above: Performed By: #### C BC ####[facility] [address] [place], [place] [address]DrKim Wayne Erythrocyte distribution width (RBC) [Ratio] 12.6 % Normal 11.0-15.0 [facility] Comment on above: Performed By: #### C BC ####[facility] [address] [place], [place] [address]DrKim Wayne Hematocrit (Bld) [Volume fraction] 44.4 % Normal 36.0-48.0 [facility] Comment on above: Performed By: #### C BC ####[facility] [address] [place], [place] [address]DrKim Wayne Hemoglobin (Bld) [Mass/Vol] 14.7 g/dL Normal 12.0-16.0 [facility] Comment on above: Performed By: #### C BC ####[facility] [address] [address]Dr. Laraantonio Wayne IG # 0.02 10e3/ul Normal 0.00-0.03 [facility] Comment on above: Performed By: #### C BC ####[facility] [address] [address]Dr. Lawrence Wayne IG % 0.3 % Normal 0.0-0.5 [facility] Comment on above: Performed By: #### C BC ####[facility] [address] [place], [place] [address]DrKim Wayne LYMPH # 1.8 103/ul Normal 1.2-3.8 [facility] Comment on above: Performed By: #### C BC ####[facility] [address] [place], [place] [address]Dr. Lawrence Wayne Lymphocytes/100 WBC (Bld) 26.1 % Normal 20.5-60.0 [facility] Comment on above: Performed By: #### C BC ####[facility] [address] [place], [place] [address]DrKim Laraantonio Wayne MANUAL DIFF REQ NO Normal [facility] Comment on above: Performed By: #### C BC ####[facility] [address] [place], [place] [address]Dr. Lawrence Wayne MCH (RBC) [Entitic mass] 30.2 pg Normal 26.7-34.0 [facility] Comment on above: Performed By: #### C BC ####[facility] [address] [place], [place] [address]DrKim Wayne MCHC (RBC) [Mass/Vol] 33.1 g/dL Normal 29.9-35.2 [facility] Comment on above: Performed By: #### C BC ####[facility] [address] [place], [place] [address]Dr. Lawrence Wayne MCV (RBC) [Entitic vol] 91.4 fL Normal 81.0-99.0 [facility] Comment on above: Performed By: #### C BC ####[facility] [address] [address]DrKim Bermudezantonio Tone MONO # 0.8 103/ul Normal 0.3-0.8 [facility] Comment on above: Performed By: #### C BC ####[facility] [address] [address]DrKim Wayne Monocytes/100 WBC (Bld) 11.0 % Normal 1.7-12.0 [facility] Comment on above: Performed By: #### C BC ####[facility] [address] [place], [place] [address]DrKim Wayne NEUT # 4.2 103/ul Normal 1.4-6.5 [facility] Comment on above: Performed By: #### C BC ####[facility] U[address] [place], [place] [address]DrKim Wayne Neutrophils/100 WBC (Bld) 60.6 % Normal 43.0-75.0 [facility] Comment on above: Performed By: #### C BC ####[facility] [address] [place], [place] [address]DrKim Wayne Platelet mean volume (Bld) [Entitic vol] 9.2 fL Critically low 9.5-13.5 [facility] Comment on above: Performed By: #### C BC ####[facility] Qyczdfxl[address] [place], [place] [address]Dr. Lawrence Wayne PLT 322 103/ul Normal 150-450 [facility] Comment on above: Performed By: #### C BC ####[facility] [address] [place], [place] [address]DrKim Wayne RBC 4.86 106/ul Normal 4.20-5.40 [facility] Comment on above: Performed By: #### C BC ####[facility] I[address]sp[address] [place], [place] [address]DrKim Wayne WBC 7.0 103/ul Normal 4.0-11.0 [facility] Comment on above: Performed By: #### C BC ####[facility] [address] [address]Dr. Lawrence Wayne IRONon 02-18-2022 Iron [Mass/Vol] 89.0 ug/dL Normal 50.0-170.0 The [facility] Comment on above: Performed By: #### A MY, CMP, LIPA #### [facility] [address] [address] [address] Lawrence Wayne PROF 14(COMP METB)on 022 Albumin [Mass/Vol] 4.0 g/dL Normal 3.4-5.0 [facility] Comment on above: Performed By: #### A MY, CMP, LIPA #### [facility] [address] [address] [address] Lawrence Wayne Albumin/Globulin [Mass ratio] 1.1 {ratio} Normal [facility] Comment on above: Performed By: #### A MY, CMP, LIPA #### [facility] [address] [address] [address] Lawrence Wayne ALP [Catalytic activity/Vol] 98 U/L Normal 46-116 [facility] Comment on above: Performed By: #### A MY, CMP, LIPA #### [facility] [address] [address] [address] Larwence Wayne ALT [Catalytic activity/Vol] 23 U/L Normal 14-59 [facility] Comment on above: Performed By: #### A MY, CMP, LIPA #### [facility] [address] [address] [address] Lawrence Wayne Anion gap [Moles/Vol] 4.9 mmol/L Normal [facility] Comment on above: Performed By: #### A MY, CMP, LIPA #### [facility] [address] [address] [address] Lawrence Wayne AST [Catalytic activity/Vol] 19 U/L Normal 15-37 [facility] Comment on above: Performed By: #### A MY, CMP, LIPA #### [facility] [address] [address] [address] Lawrence Wayne Bilirubin [Mass/Vol] 0.4 mg/dL Normal 0.2-1.0 [facility] Comment on above: Performed By: #### A MY, CMP, LIPA #### [facility] [address] [address] [address] Lawrence Wayne Calcium [Mass/Vol] 9.5 mg/dL Normal 8.5-10.1 [facility] Comment on above: Performed By: #### A MY, CMP, LIPA #### [facility] [address] [address] [address] Lawrence Wayne Chloride [Moles/Vol] 102 mmol/L Normal 98-107 [facility] Comment on above: Performed By: #### A MY, CMP, LIPA #### [facility] [address] [place] [address] Dr. Lawrence Wayne CO2 [Moles/Vol] 30.1 mmol/L Normal 21.0-32.0 The [facility] Comment on above: Performed By: #### A MY, CMP, LIPA #### [facility] [address] [address] [address] Lawrence Wayne Creatinine [Mass/Vol] 0.99 mg/dL Normal 0.55-1.02 [facility] Comment on above: Performed By: #### A MY, CMP, LIPA #### [facility] [address] [address] [address] Lawrence Wayne EGFR-AF RUSSIAN >60 Normal >=60 [facility] Comment on above: Performed By: #### A MY, CMP, LIPA #### [facility] [address] [address] [address] Lawrence Wayne EGFR-NON AF RUSSIAN 56 mL/min/1.73m2 Critically low >=60 [facility] Comment on above: Performed By: #### A MY, CMP, LIPA #### [facility] [address] [address] [address] Lawrence Wanye Globulin (S) [Mass/Vol] 3.5 g/dL Normal [facility] Comment on above: Performed By: #### A MY, CMP, LIPA #### [facility] [address] [address] [address] Lawrence aWyne Glucose [Mass/Vol] 100 mg/dL Normal 74-106 [facility] Comment on above: Performed By: #### A MY, CMP, LIPA #### [facility] [address] [address] [address] Lawrence Wayne Potassium [Moles/Vol] 4.0 mmol/L Normal 3.5-5.1 [facility] Comment on above: Performed By: #### A MY, CMP, LIPA #### [facility] [address] [place] [address] Dr. Lawrence Wayne Protein [Mass/Vol] 7.5 g/dL Normal 6.4-8.2 [facility] Comment on above: Performed By: #### A MY, CMP, LIPA #### [facility] [address] [address] [address] Lawrence Wayne Sodium [Moles/Vol] 133 mmol/L Critically low 136-145 [facility] Comment on above: Performed By: #### A MY, CMP, LIPA #### [facility] [address] [place] [address] Dr. Lawrence Wayne Urea nitrogen [Mass/Vol] 14.0 mg/dL Normal 7.0-18.0 [facility] Comment on above: Performed By: #### A MY, CMP, LIPA #### [facility] [address] [place] [address] Dr. Lawrence Wayne Urea nitrogen/Creatinine [Mass ratio] 14.1 mg/mg Normal [facility] Comment on above: Performed By: #### A MY, CMP, LIPA #### [facility] [address] [place] [address] Dr. Lawrence Wayne TSHon 02-18-2022 TSH 1.273 uIU/mL Normal 0.358-3.740 [facility] Comment on above: Performed By: #### A MY, CMP, LIPA #### [facility] [address] [place] [address] Dr. Lawrence Wayne AMMONIAon 02-07-2022 Ammonia (P) [Mass/Vol] ug/dL Critically low 11-32 [facility] Comment on above: Performed By: #### A MM ####[facility] [address] [address]Dr. Lawrence Wayne AMYLASEon 02-07-2022 Amylase [Catalytic activity/Vol] 88 U/L Normal 25-115 [facility] Comment on above: Performed By: #### A MY, CMP, LIPA #### [facility] [address] [place] [address] Dr. Lawrence Wayne BNPon 02-07-2022 Natriuretic peptide B (Bld) [Mass/Vol] 236.0 pg/mL Normal <=900.0 [facility] Comment on above: Performed By: #### A MY, CMP, LIPA #### [facility] [address] [place] [address] Dr. Lawrence Wayne CBC AUTO DIFFon 02-07-2022 BASO # 0.0 103/ul Normal 0.0-0.1 [facility] Comment on above: Performed By: #### C BC ####[facility] Q[address] [place], [place] [address]DrKim Wayne Basophils/100 WBC (Bld) 0.7 % Normal 0.2-2.0 [facility] Comment on above: Performed By: #### C BC ####[facility] Y[address] [place], [place] [address]DrKim Wayne EO # 0.1 103/ul Normal 0.0-0.7 [facility] Comment on above: Performed By: #### C BC ####[facility] [address] [address]DrKim Wayne Eosinophils/100 WBC (Bld) 1.3 % Normal 0.9-7.0 [facility] Comment on above: Performed By: #### C BC ####[facility] H[address] [place], [place] [address]DrKim Wayne Erythrocyte distribution width (RBC) [Ratio] 12.7 % Normal 11.0-15.0 [facility] Comment on above: Performed By: #### C BC ####[facility] [address] [address]Dr. Laraantonio Wayne Hematocrit (Bld) [Volume fraction] 38.7 % Normal 36.0-48.0 [facility] Comment on above: Performed By: #### C BC ####[facility] [address]vnir[address] [place], [place] [address]Dr. Lawrence Wayne Hemoglobin (Bld) [Mass/Vol] 12.4 g/dL Normal 12.0-16.0 [facility] Comment on above: Result Comment: RECE IVING BOLUS AND SALINE Performed By: #### C BC ####[facility] [address] [place], [place] [address]Dr. Lawrence Wayne IG # 0.01 10e3/ul Normal 0.00-0.03 [facility] Comment on above: Performed By: #### C BC ####[facility] Hzpldihopc[address] [place], [place] [address]Dr. Lawrence Wayne IG % 0.2 % Normal 0.0-0.5 [facility] Comment on above: Performed By: #### C BC ####[facility] [address] [place], [place] [address]Dr. Lawrence Wayne LYMPH # 1.9 103/ul Normal 1.2-3.8 [facility] Comment on above: Performed By: #### C BC ####[facility] S[address] [place], [place] [address]Dr. Lawrence Wayne Lymphocytes/100 WBC (Bld) 35.0 % Normal 20.5-60.0 [facility] Comment on above: Performed By: #### C BC ####[facility] V[address] [place], [place] [address]DrKim Wayne MANUAL DIFF REQ NO Normal [facility] Comment on above: Performed By: #### C BC ####[facility] [address]ew[address] [place], [place] [address]Dr. Lawrence Wayne MCH (RBC) [Entitic mass] 30.2 pg Normal 26.7-34.0 [facility] Comment on above: Performed By: #### C BC ####[facility] [address] [place], [place] [address]Dr. Lawrence Wayne MCHC (RBC) [Mass/Vol] 32.0 g/dL Normal 29.9-35.2 [facility] Comment on above: Performed By: #### C BC ####[facility] [address]fe[address] [place], [place] [address]Dr. Lawrence Tone MCV (RBC) [Entitic vol] 94.2 fL Normal 81.0-99.0 [facility] Comment on above: Performed By: #### C BC ####[facility] [address] [place], [place] [address]Dr. Lawrence Wayne MONO # 0.6 103/ul Normal 0.3-0.8 [facility] Comment on above: Performed By: #### C BC ####[facility] Llwe[address]iz[address] [place], [place] [address]Dr. Lawrence Wayne Monocytes/100 WBC (Bld) 10.7 % Normal 1.7-12.0 [facility] Comment on above: Performed By: #### C BC ####[facility] Hx[address] [place], [place] [address]Dr. Laraantonio Tone NEUT # 2.9 103/ul Normal 1.4-6.5 [facility] Comment on above: Performed By: #### C BC ####[facility] [address] [place], [place] [address]Dr. Lawrence Wayne Neutrophils/100 WBC (Bld) 52.1 % Normal 43.0-75.0 [facility] Comment on above: Performed By: #### C BC ####[facility] X[address]wp[address] [place], [place] [address]Dr. Lawrence Wayne Platelet mean volume (Bld) [Entitic vol] 9.5 fL Normal 9.5-13.5 [facility] Comment on above: Performed By: #### C BC ####[facility] [address] [place] [address] Lawrence Wayne PLT 260 103/ul Normal 150-450 [facility] Comment on above: Performed By: #### C BC ####[facility] [address] [id number]. Lawrence Wayne RBC 4.11 106/ul Critically low 4.20-5.40 [facility] Comment on above: Performed By: #### C BC ####[facility] [address] [id number]. Lawrence Wayne WBC 5.5 103/ul Normal 4.0-11.0 [facility] Comment on above: Performed By: #### C BC ####[facility] [address] [address]DrKim Wayne PROF 14(COMP METB)on 022 Albumin [Mass/Vol] 3.0 g/dL Critically low 3.4-5.0 [facility] Comment on above: Performed By: #### A MY, CMP, LIPA #### [facility] [address] [address] [address] Lawrence Wayne Albumin/Globulin [Mass ratio] 1.1 {ratio} Normal [facility] Comment on above: Performed By: #### A MY, CMP, LIPA #### [facility] [address] [address] [address] Lawrence Wayne ALP [Catalytic activity/Vol] 77 U/L Normal 46-116 [facility] Comment on above: Performed By: #### A MY, CMP, LIPA #### [facility] [address] [address] [address] Lawrence Wayne ALT [Catalytic activity/Vol] 21 U/L Normal 14-59 [facility] Comment on above: Performed By: #### A MY, CMP, LIPA #### [facility] [address] [address] [address] Lawrence Wayne Anion gap [Moles/Vol] 10.9 mmol/L Normal [facility] Comment on above: Performed By: #### A MY, CMP, LIPA #### [facility] [address] [address] [address] Lawrence Wayne AST [Catalytic activity/Vol] 15 U/L Normal 15-37 [facility] Comment on above: Performed By: #### A MY, CMP, LIPA #### [facility] [address] [address] [address] Lawrence Wayne Bilirubin [Mass/Vol] 0.3 mg/dL Normal 0.2-1.0 [facility] Comment on above: Performed By: #### A MY, CMP, LIPA #### [facility] [address] [address] [address] Lawrence Wayne Calcium [Mass/Vol] 8.4 mg/dL Critically low 8.5-10.1 [facility] Comment on above: Performed By: #### A MY, CMP, LIPA #### [facility] [address] [address] [address] Lawrence Wayne Chloride [Moles/Vol] 110 mmol/L Critically high 98-107 [facility] Comment on above: Performed By: #### A MY, CMP, LIPA #### [facility] [address] [address] [address] Lawrence Wayne CO2 [Moles/Vol] 25.0 mmol/L Normal 21.0-32.0 [facility] Comment on above: Performed By: #### A MY, CMP, LIPA #### [facility] [address] [address] [address] Lawrence Wayne Creatinine [Mass/Vol] 0.87 mg/dL Normal 0.55-1.02 [facility] Comment on above: Performed By: #### A MY, CMP, LIPA #### [facility] [address] [address] [address] Lawrence Wayne EGFR-AF RUSSIAN >60 Normal >=60 [facility] Comment on above: Performed By: #### A MY, CMP, LIPA #### [facility] [address] [address] [address] Lawrence Wayne EGFR-NON AF RUSSIAN >60 Normal >=60 [facility] Comment on above: Performed By: #### A MY, CMP, LIPA #### [facility] [address] [address] [address] Lawrence Wayne Globulin (S) [Mass/Vol] 2.8 g/dL Normal [facility] Comment on above: Performed By: #### A MY, CMP, LIPA #### [facility] [address] [address] [address] Lawrence Wayne Glucose [Mass/Vol] 96 mg/dL Normal 74-106 [facility] Comment on above: Performed By: #### A MY, CMP, LIPA #### [facility] [address] [address] [address] Lawrence Wayne Potassium [Moles/Vol] 3.9 mmol/L Normal 3.5-5.1 [facility] Comment on above: Performed By: #### A MY, CMP, LIPA #### [facility] [address] [address] [address] Lawrence Wayne Protein [Mass/Vol] 5.8 g/dL Critically low 6.4-8.2 [facility] Comment on above: Performed By: #### A MY, CMP, LIPA #### [facility] [address] [place] [address] Dr. Lawrence Wayne Sodium [Moles/Vol] 142 mmol/L Normal 136-145 [facility] Comment on above: Performed By: #### A MY, CMP, LIPA #### [facility] [address] [address] [address] Lawrence Wayne Urea nitrogen [Mass/Vol] 11.0 mg/dL Normal 7.0-18.0 [facility] Comment on above: Performed By: #### A MY, CMP, LIPA #### [facility] [address] [place] [address] Dr. Lawrence Wayne Urea nitrogen/Creatinine [Mass ratio] 12.6 mg/mg Normal [facility] Comment on above: Performed By: #### A MY, CMP, LIPA #### [facility] [address] [place] [address] Dr. Lawrence Wayne AMMONIAon 08-25-2022 Ammonia (P) [Moles/Vol] 44 umol/L Critically high 11-32 [facility] Comment on above: Performed By: #### A MY, CMP, LIPA #### [facility] [address] [address] [address] Lawrence Wayne AMYLASEon 02-06-2022 Amylase [Catalytic activity/Vol] 89 U/L Normal 25-115 [facility] Comment on above: Performed By: #### M G, CMP, CMADM, BNP, ALIYAH, LIPA #### [facility] [address] [address] [address] Lawrence Wayne BNPon 02-06-2022 Natriuretic peptide B (Bld) [Mass/Vol] 103.0 pg/mL Normal <=900.0 [facility] Comment on above: Performed By: #### M G, CMP, CMADM, BNP, ALIYAH, LIPA ####[facility] [address] [address]Dr. Lawrence Wayne CARDIAC ORAL ADMITon 022 CK [Catalytic activity/Vol] 65 U/L Normal 26-192 [facility] Comment on above: Performed By: #### M G, CMP, CMADM, BNP, ALIYAH, LIPA #### [facility] [address] [address] [address] Lawrence Wayne CK.MB [Mass/Vol] 1.16 ng/mL Normal <=3.60 [facility] Comment on above: Performed By: #### M G, CMP, CMADM, BNP, ALIYAH, LIPA #### [facility] [address] [address] [address] Lawrence Wayne HSTROP <4.0 Normal 4.0-51.3 [facility] Comment on above: Result Comment: CUT- OFF POINTS HAVE BEEN ESTABLISHED BASED ON THE FOURTH UNIVERSAL DEFINITIONS OF MYOCARDIAL INFARCTION. THE UPPER REFERENCE LIMIT (URL) OF TROPONIN, DEFINED THE 99TH PERCENTILE OF cTnI DISTRIBUTION IN A REFERENCE POPULATION, HAS BEEN CONFIRMED THE DECISION THRESHOLD FOR AK DIAGNOSIS. Performed By: #### M G, CMP, CMADM, BNP, ALIYAH, LIPA #### [facility] [address] [place], [place] [address] Dr. Lawrence Wayne GEORGI 47 ng/mL Normal 9-82 [facility] Comment on above: Performed By: #### M G, CMP, CMADM, BNP, ALIYAH, LIPA #### [facility] [address] [place], [place] [address] Dr. Lawrence Wayne CBC AUTO DIFFon 02-06-2022 BASO # 0.1 103/ul Normal 0.0-0.1 [facility] Comment on above: Performed By: #### C BC ####[facility] [address] [id number] Wayne Basophils/100 WBC (Bld) 0.7 % Normal 0.2-2.0 [facility] Comment on above: Performed By: #### C BC ####[facility] [address] [address]Dr. Lawrence Wayne EO # 0.1 103/ul Normal 0.0-0.7 [facility] Comment on above: Performed By: #### C BC ####[facility] [address] [id number]. Lawrence Wayne Eosinophils/100 WBC (Bld) 1.1 % Normal 0.9-7.0 [facility] Comment on above: Performed By: #### C BC ####[facility] [address] [id number]. Lawrence Wayne Erythrocyte distribution width (RBC) [Ratio] 12.6 % Normal 11.0-15.0 [facility] Comment on above: Performed By: #### C BC ####[facility] [address] [id number]. Lawrence Wayne Hematocrit (Bld) [Volume fraction] 44.3 % Normal 36.0-48.0 [facility] Comment on above: Performed By: #### C BC ####[facility] [address] [address]DrKim Wayne Hemoglobin (Bld) [Mass/Vol] 14.4 g/dL Normal 12.0-16.0 [facility] Comment on above: Performed By: #### C BC ####[facility] [address] [address]Dr. Lawrence Wayne IG # 0.01 10e3/ul Normal 0.00-0.03 [facility] Comment on above: Performed By: #### C BC ####[facility] [address] [address]Dr. Lawrence Wayne IG % 0.1 % Normal 0.0-0.5 [facility] Comment on above: Performed By: #### C BC ####[facility] [address] [address]Dr. Lawrence Wayne LYMPH # 2.1 103/ul Normal 1.2-3.8 [facility] Comment on above: Performed By: #### C BC ####[facility] [address] [address]Dr. Lawrence Wayne Lymphocytes/100 WBC (Bld) 29.6 % Normal 20.5-60.0 [facility] Comment on above: Performed By: #### C BC ####[facility] [address] [address]Dr. Lawrence Wayne MANUAL DIFF REQ NO Normal [facility] Comment on above: Performed By: #### C BC ####[facility] [address] [address]Dr. Lawrence Wayne MCH (RBC) [Entitic mass] 30.4 pg Normal 26.7-34.0 [facility] Comment on above: Performed By: #### C BC ####[facility] [address] [id number]. Lawrence Wayne MCHC (RBC) [Mass/Vol] 32.5 g/dL Normal 29.9-35.2 [facility] Comment on above: Performed By: #### C BC ####[facility] [address] [address]Dr. Lawrence Wayne MCV (RBC) [Entitic vol] 93.7 fL Normal 81.0-99.0 [facility] Comment on above: Performed By: #### C BC ####[facility] [address] [place] [id number]. Lawrence Wayne MONO # 0.8 103/ul Normal 0.3-0.8 [facility] Comment on above: Performed By: #### C BC ####[facility] [address] [place] [id number]. Lawrence Wayne Monocytes/100 WBC (Bld) 10.6 % Normal 1.7-12.0 [facility] Comment on above: Performed By: #### C BC ####[facility] [address] [place] [id number]. Lawrence Wayne NEUT # 4.1 103/ul Normal 1.4-6.5 [facility] Comment on above: Performed By: #### C BC ####[facility] [address] [address]Dr. Lawrence Wayne Neutrophils/100 WBC (Bld) 57.9 % Normal 43.0-75.0 [facility] Comment on above: Performed By: #### C BC ####[facility] [address] [id number]. Lawrence Wayne Platelet mean volume (Bld) [Entitic vol] 9.3 fL Critically low 9.5-13.5 [facility] Comment on above: Performed By: #### C BC ####[facility] [address] [id number]. Lawrence Wayne PLT 294 103/ul Normal 150-450 [facility] Comment on above: Performed By: #### C BC ####[facility] [address] [id number]. Lawrence Wayne RBC 4.73 106/ul Normal 4.20-5.40 [facility] Comment on above: Performed By: #### C BC ####[facility] [address] [id number]. Lawrence Wayne WBC 7.1 103/ul Normal 4.0-11.0 [facility] Comment on above: Performed By: #### C BC ####[facility] [address] [place] [id number]. Lawrence Wayne CULTURE BLOODon 02-06-2022 Microscopic examination of blood, culture Culture Observations: NO GROWTH AT 5 DAYS. Normal [facility] Comment on above: Performed By: #### B LDCX2 ####[facility] [id number] [id number]. Laraantonio Wayne Microscopic examination of blood, culture Culture Observations: NO GROWTH AT 5 DAYS. Normal [facility] Comment on above: Performed By: #### B LDCX1 ####[facility] [id number] [id number]. Lawrence Wayne CULTURE URINEon 02-06-2022 CULTURE URINE Culture Observations : NO GROWTH. Normal [facility] Comment on above: Performed By: #### U RCX ####[facility] [id number] [place], [place] [address]Dr. Lawrence Wayne Covid-19 PCR (CVDTB)on 01-14 SARS-CoV-2 (COVID-19) RNA EVELIA+probe Ql (Unsp spec) Not detected Normal NOT DETECTED [facility] Comment on above: Result Comment: When diagnostic [...] for this test is supported by the [place] of Health and Human Service's declaration that [...] be used). Performed By: #### C VDTBH ####[facility] [id number] [place], [place] [address]Dr. Lawrence Wayne LACTATE/LACTIC ACIDon 2021 Lactate [Moles/Vol] 1.1 mmol/L Normal 0.4-1.[address] [facility] Comment on above: Performed By: #### A MY, CMP, LIPA #### [facility] [address] [address] [address] Lawrence Wayne LIPASEon 02-06-2022 Lipase [Catalytic activity/Vol] 107.0 U/L Normal 73.0-393.0 [facility] Comment on above: Performed By: #### M G, CMP, CMADM, BNP, ALIYAH, LIPA #### [facility] [address] [address] [address] Lawrence Wayne MAGNESIUMon 02-06-2022 Magnesium [Mass/Vol] 2.3 mg/dL Normal 1.8-2.4 [facility] Comment on above: Performed By: #### M G, CMP, CMADM, BNP, ALIYAH, LIPA ####[facility] [id number] [address]Dr. Lawrence Wayne PROF 14(COMP METB)on 022 Albumin [Mass/Vol] 3.8 g/dL Normal 3.4-5.0 [facility] Comment on above: Performed By: #### M G, CMP, CMADM, BNP, ALIYAH, LIPA #### [facility] [address] [address] [address] Lawrence Wayne Albumin/Globulin [Mass ratio] 1.1 {ratio} Normal [facility] Comment on above: Performed By: #### M G, CMP, CMADM, BNP, ALIYAH, LIPA #### [facility] [address] [address] [address] Lawrence Wayne ALP [Catalytic activity/Vol] 98 U/L Normal 46-116 [facility] Comment on above: Performed By: #### M G, CMP, CMADM, BNP, ALIYAH, LIPA #### [facility] [address] [address] [address] Lawrence Wayne ALT [Catalytic activity/Vol] 26 U/L Normal 14-59 [facility] Comment on above: Performed By: #### M G, CMP, CMADM, BNP, ALIYAH, LIPA #### [facility] [address] [address] [address] Lawrence Wayne Anion gap [Moles/Vol] 12.9 mmol/L Normal Th e [facility] Comment on above: Performed By: #### M G, CMP, CMADM, BNP, ALIYAH, LIPA #### [facility] [address] [address] [address] Lawrence Wayne AST [Catalytic activity/Vol] 25 U/L Normal 15-37 [facility] Comment on above: Performed By: #### M G, CMP, CMADM, BNP, ALIYAH, LIPA #### [facility] [address] [address] [address] Lawrence Wayne Bilirubin [Mass/Vol] 0.3 mg/dL Normal 0.2-1.0 [facility] Comment on above: Performed By: #### M G, CMP, CMADM, BNP, ALIYAH, LIPA #### [facility] [address] [address] [address] Lawrence Wayne Calcium [Mass/Vol] 9.1 mg/dL Normal 8.5-10.1 [facility] Comment on above: Performed By: #### M G, CMP, CMADM, BNP, ALIYAH, LIPA #### [facility] [address] [place] [address] Dr. Lawrence Wayne Chloride [Moles/Vol] 105 mmol/L Normal 98-107 [facility] Comment on above: Performed By: #### M G, CMP, CMADM, BNP, ALIYAH, LIPA #### [facility] [address] [address] [address] Lawrence Wayne CO2 [Moles/Vol] 24.0 mmol/L Normal 21.0-32.0 [facility] Comment on above: Performed By: #### M G, CMP, CMADM, BNP, ALIYAH, LIPA #### [facility] [address] [address] [address] Lawrence Wayne Creatinine [Mass/Vol] 0.90 mg/dL Normal 0.55-1.02 [facility] Comment on above: Performed By: #### M G, CMP, CMADM, BNP, ALIYAH, LIPA #### [facility] [address] [address] [address] Lawrence Wayne EGFR-AF RUSSIAN >60 Normal >=60 [facility] Comment on above: Performed By: #### M G, CMP, CMADM, BNP, ALIYAH, LIPA #### [facility] [address] [address] [address] Lawrence Wayne EGFR-NON AF RUSSIAN >60 Normal >=60 [facility] Comment on above: Performed By: #### M G, CMP, CMADM, BNP, ALIYAH, LIPA #### [facility] [address] [address] [address] Lawrence Wayne Globulin (S) [Mass/Vol] 3.5 g/dL Normal [facility] Comment on above: Performed By: #### M G, CMP, CMADM, BNP, ALIYAH, LIPA #### [facility] [address] [address] [address] Lawrence Wayne Glucose [Mass/Vol] 95 mg/dL Normal 74-106 [facility] Comment on above: Performed By: #### M G, CMP, CMADM, BNP, ALIYAH, LIPA #### [facility] [address] [address] [address] Lawrence Wayne Potassium [Moles/Vol] 3.9 mmol/L Normal 3.5-5.1 [facility] Comment on above: Performed By: #### M G, CMP, CMADM, BNP, ALIYAH, LIPA #### [facility] [address] [address] [address] Lawrence Wayne Protein [Mass/Vol] 7.3 g/dL Normal 6.4-8.2 [facility] Comment on above: Performed By: #### M G, CMP, CMADM, BNP, ALIYAH, LIPA #### [facility] [address] [address] [address] Lawrence Wayne Sodium [Moles/Vol] 138 mmol/L Normal 136-145 [facility] Comment on above: Performed By: #### M G, CMP, CMADM, BNP, ALIYAH, LIPA #### [facility] [address] [place] [address] Dr. Lawrence Wayne Urea nitrogen [Mass/Vol] 12.0 mg/dL Normal 7.0-18.0 [facility] Comment on above: Performed By: #### M G, CMP, CMADM, BNP, ALIYAH, LIPA #### [facility] [address] [place] [address] Dr. Lawrence Wayne Urea nitrogen/Creatinine [Mass ratio] 13.3 mg/mg Normal [facility] Comment on above: Performed By: #### M G, CMP, CMADM, BNP, ALIYAH, LIPA #### [facility] [address] [place] [address] Dr. Lawrence Wayne UA RANDOM W/MICROSCOPICon BACTERIA NONE SEEN Normal NONE SEEN [facility] Comment on above: Performed By: #### A MY, CMP, LIPA #### [facility] [address] [place] [address] Dr. Lawrence Wayne Bilirubin Ql (U) Negative Normal NEGATIVE [facility] Comment on above: Performed By: #### A MY, CMP, LIPA #### [facility] [address] [place] [address] Dr. Lawrence Wayne CAST NONE SEEN Normal NONE SEEN [facility] Comment on above: Performed By: #### A MY, CMP, LIPA #### [facility] [address] [place] [address] Dr. aLwrence Wayne Clarity (U) CLEAR Normal CLEAR [facility] Comment on above: Performed By: #### A MY, CMP, LIPA #### [facility] [address] [place] [address] Dr. Lawrence Wayne Color (U) LT. YELLOW Normal YELLOW [facility] Comment on above: Performed By: #### A MY, CMP, LIPA #### [facility] [address] [place] [address] Dr. Lawrence Wayne Crystals LM Nom (Urine sed) NONE SEEN Normal NONE SEEN [facility] Comment on above: Performed By: #### A MY, CMP, LIPA #### [facility] [address] [address] [address] Lawrence Wayne Epithelial cells LM Ql (Urine sed) FEW Abnormal NONE SEEN /RARE [facility] Comment on above: Performed By: #### A MY, CMP, LIPA #### [facility] [address] [address] [address] Lawrence Wayne Glucose Ql (U) Negative Normal NEGATIVE [facility] Comment on above: Performed By: #### A MY, CMP, LIPA #### [facility] [address] [place] [address] Dr. Lawrence Wayne Hemoglobin Ql (U) Negative Normal NEGATIVE [facility] Comment on above: Performed By: #### A MY, CMP, LIPA #### [facility] [address] [place] [address] Dr. Lawrence Wayne Ketones Ql (U) Negative Normal NEGATIVE [facility] Comment on above: Performed By: #### A MY, CMP, LIPA #### [facility] [address] [place] [address] Dr. Lawrence Wayne LEUKOCYTES SMALL Abnormal NEGATIVE [facility] Comment on above: Performed By: #### A MY, CMP, LIPA #### [facility] [address] [place] [address] Dr. Lawrence Wayne MUCOUS NONE SEEN Normal NONE SEEN [facility] Comment on above: Performed By: #### A MY, CMP, LIPA #### [facility] [address] [place] [address] Dr. Lawrence Wayne Nitrite Ql (U) Negative Normal NEGATIVE [facility] Comment on above: Performed By: #### A MY, CMP, LIPA #### [facility] [address] [place] [address] Dr. Lawrence Wayne pH (U) 6.0 [pH] Normal 5-9 [facility] Comment on above: Performed By: #### A MY, CMP, LIPA #### [facility] [address] [address] [address] Lawrence Wayne RBC NONE SEEN Abnormal 0-2 [facility] Comment on above: Performed By: #### A MY, CMP, LIPA #### [facility] [address] [address] [address] Lawrence Wayne SPEC GRAVITY <=1.005 Abnormal 1.005-<=1.025 [facility] Comment on above: Performed By: #### A MY, CMP, LIPA #### [facility] [address] [place] [address] Dr. Lawrence Wayne UA PROTEIN Negative Normal NEGATIVE/ TRACE [facility] Comment on above: Performed By: #### A MY CMP, LIPA #### [facility] [address] [place] [address] Dr. Lawrence Wayne Urobilinogen Qn (U) 0.2 {Antonina'U}/dL Normal 0.2 - 1. 0 [facility] Comment on above: Performed By: #### A MY CMP, LIPA #### [facility] [address] [place] [address] Dr. Lawrence Wayne WBC 0-2 Abnormal NONE SEEN [facility] Comment on above: Performed By: #### A MY, CMP, LIPA #### [facility] [address] [place] [address] Dr. Lawrence Wayne YEAST PRESENT Abnormal NONE SEEN [facility] Comment on above: Performed By: #### A GARTH CMP, LIPA #### [facility] [address] [place] [address] Dr. Lawrence Wayne XR ABD FLAT UP_PA [...] by: TYRELL MOREJON Date: 2022-02-06 16:08 Normal [facility] CTA CHEST WO W CONon 022 [...] by: MARK RIOS Date: 2021-08-29 12:20 Normal [facility] XR ABD FLAT_UPon 08-27-2021 XR ABD [...] ENEDELIA FOLEY Date: 2021-08-27 16:08 Normal [facility] BNPon 08-21-2021 Natriuretic peptide B (Bld) [Mass/Vol] 51.0 pg/mL Normal <=900.0 [facility] Comment on above: Performed By: #### A MY, CMP, LIPA #### [facility] [address] [place] [address] Dr. Lawrence Wayne CBC AUTO DIFFon 08-21-2021 BASO # 0.0 103/ul Normal 0.0-0.1 [facility] Comment on above: Performed By: #### A MY, CMP, LIPA #### [facility] [address] [place] [address] Dr. Lawrence Wayne Basophils/100 WBC (Bld) 0.2 % Normal 0.2-2.0 [facility] Comment on above: Performed By: #### A MY, CMP, LIPA #### [facility] [address] [place] [address] Dr. Lawrence Wayne EO # 0.0 103/ul Normal 0.0-0.7 [facility] Comment on above: Performed By: #### A MY, CMP, LIPA #### [facility] [address] [place] [address] Dr. Lawrence Wayne Eosinophils/100 WBC (Bld) 0.1 % Critically low 0.9-7.0 [facility] Comment on above: Performed By: #### A MY, CMP, LIPA #### [facility] [address] [place] [address] Dr. Lawrence Wayne Erythrocyte distribution width (RBC) [Ratio] 13.3 % Normal 11.0-15.0 [facility] Comment on above: Performed By: #### A MY, CMP, LIPA #### [facility] [address] [place] [address] Dr. Lawrence Wayne Hematocrit (Bld) [Volume fraction] 45.7 % Normal 36.0-48.0 [facility] Comment on above: Performed By: #### A MY, CMP, LIPA #### [facility] [address] [place] [address] Dr. Lawrence Wayne Hemoglobin (Bld) [Mass/Vol] 15.3 g/dL Normal 12.0-16.0 [facility] Comment on above: Performed By: #### A MY, CMP, LIPA #### [facility] [address] [place] [address] Dr. Lawrence Wayne IG # 0.12 10e3/ul Critically high 0.00-0.03 [facility] Comment on above: Performed By: #### A MY, CMP, LIPA #### [facility] [address] [place] [address] Dr. Lawrence Wayne IG % 0.9 % Critically high 0.0-0.5 [facility] Comment on above: Performed By: #### A MY, CMP, LIPA #### [facility] [address] [place] [address] Dr. Lawrence Wayne LYMPH # 1.6 103/ul Normal 1.2-3.8 [facility] Comment on above: Performed By: #### A MY, CMP, LIPA #### [facility] [address] [place] [address] Dr. Lawrence Wayne Lymphocytes/100 WBC (Bld) 11.9 % Critically low 20.5-60.0 [facility] Comment on above: Performed By: #### A MY, CMP, LIPA #### [facility] [address] [place] [address] Dr. Lawrence Wayne MANUAL DIFF REQ NO Normal [facility] Comment on above: Performed By: #### A MY, CMP, LIPA #### [facility] [address] [place] [address] Dr. Lawrence Wayne MCH (RBC) [Entitic mass] 30.2 pg Normal 26.7-34.0 [facility] Comment on above: Performed By: #### A MY, CMP, LIPA #### [facility] [address] [place] [address] Dr. Lawrence Wayne MCHC (RBC) [Mass/Vol] 33.5 g/dL Normal 29.9-35.2 [facility] Comment on above: Performed By: #### A MY, CMP, LIPA #### [facility] [address] [address] [address] Lawrence Wayne MCV (RBC) [Entitic vol] 90.1 fL Normal 81.0-99.0 [facility] Comment on above: Performed By: #### A MY, CMP, LIPA #### [facility] [address] [address] [address] Lawrence Wayne MONO # 1.0 103/ul Critically high 0.3-0.8 [facility] Comment on above: Performed By: #### A MY, CMP, LIPA #### [facility] [address] [place] [address] Dr. Lawrence Wayne Monocytes/100 WBC (Bld) 7.2 % Normal 1.7-12.0 [facility] Comment on above: Performed By: #### A MY, CMP, LIPA #### [facility] [address] [address] [address] Lawrence Wayne NEUT # 11.0 103/ul Critically high 1.4-6.5 [facility] Comment on above: Performed By: #### A MY, CMP, LIPA #### [facility] [address] [address] [address] Lawrence Wayne Neutrophils/100 WBC (Bld) 79.7 % Critically high 43.0-75.0 [facility] Comment on above: Performed By: #### A MY, CMP, LIPA #### [facility] [address] [address] [address] Lawrence Wayne Platelet mean volume (Bld) [Entitic vol] 9.1 fL Critically low 9.5-13.5 [facility] Comment on above: Performed By: #### A MY, CMP, LIPA #### [facility] [address] [address] [address] Lawrence Wayne PLT 434 103/ul Normal 150-450 [facility] Comment on above: Performed By: #### A MY, CMP, LIPA #### [facility] [address] [address] [address] Lawrence Wayne RBC 5.07 106/ul Normal 4.20-5.40 [facility] Comment on above: Performed By: #### A MY, CMP, LIPA #### [facility] [address] [address] [address] Lawrence Wayne WBC 13.8 103/ul Critically high 4.0-11.0 [facility] Comment on above: Performed By: #### A MY, CMP, LIPA #### [facility] [address] [address] [address] Lawrence Wayne PROF 14(COMP METB)on 022 Albumin [Mass/Vol] 3.9 g/dL Normal 3.5-5.0 [facility] Comment on above: Performed By: #### A MY, CMP, LIPA #### [facility] [address] [address] [address] Lawrence Wayne Albumin/Globulin [Mass ratio] 1.0 {ratio} Normal [facility] Comment on above: Performed By: #### A MY, CMP, LIPA #### [facility] [address] [place] [address] Dr. Lawrence Wayne ALP [Catalytic activity/Vol] 104 U/L Normal 38-126 [facility] Comment on above: Performed By: #### A MY, CMP, LIPA #### [facility] [address] [address] [address] Lawrence Wayne ALT [Catalytic activity/Vol] 20 U/L Normal 9-52 [facility] Comment on above: Performed By: #### A MY, CMP, LIPA #### [facility] [address] [address] [address] Lawrence Wayne Anion gap [Moles/Vol] 15.5 mmol/L Normal [facility] Comment on above: Performed By: #### A MY, CMP, LIPA #### [facility] [address] [place] [address] Dr. Lawrence Wayne AST [Catalytic activity/Vol] 13 U/L Critically low 14-36 [facility] Comment on above: Performed By: #### A MY, CMP, LIPA #### [facility] [address] [address] [address] Lawrence Wayne Bilirubin [Mass/Vol] 0.4 mg/dL Normal 0.2-1.3 [facility] Comment on above: Performed By: #### A MY, CMP, LIPA #### [facility] [address] [place] [address] Dr. Lawrence Wayne Calcium [Mass/Vol] 9.4 mg/dL Normal 8.4-10.2 [facility] Comment on above: Performed By: #### A MY, CMP, LIPA #### [facility] [address] [place] [address] Dr. Lawrence Wayne Chloride [Moles/Vol] 100 mmol/L Normal 98-107 [facility] Comment on above: Performed By: #### A MY, CMP, LIPA #### [facility] [address] [address] [address] Lawrence Wayne CO2 [Moles/Vol] 23.9 mmol/L Normal 22.0-30.0 [facility] Comment on above: Performed By: #### A MY, CMP, LIPA #### [facility] [address] [place] [address] Dr. Lawrence Wayne Creatinine [Mass/Vol] 0.97 mg/dL Normal 0.52-1.04 [facility] Comment on above: Performed By: #### A MY, CMP, LIPA #### [facility] [address] [place] [address] Dr. Lawrence Wayne EGFR-AF RUSSIAN >60 Normal >=60 [facility] Comment on above: Performed By: #### A MY, CMP, LIPA #### [facility] [address] [place] [address] Dr. Lawrence Wayne EGFR-NON AF RUSSIAN 58 mL/min/1.73m2 Critically low >=60 [facility] Comment on above: Performed By: #### A MY, CMP, LIPA #### [facility] [address] [address] [address] Lawrence Wayne Globulin (S) [Mass/Vol] 3.8 g/dL Normal [facility] Comment on above: Performed By: #### A MY, CMP, LIPA #### [facility] [address] [place] [address] Dr. Lawrence Wayne Glucose [Mass/Vol] 169 mg/dL Critically high 74-106 [facility] Comment on above: Performed By: #### A MY, CMP, LIPA #### [facility] [address] [place] [address] Dr. Lawrence Wayne Potassium [Moles/Vol] 3.4 mmol/L Normal 3.4-5.0 [facility] Comment on above: Performed By: #### A MY, CMP, LIPA #### [facility] [address] [place] [address] Dr. Lawrence Wayne Protein [Mass/Vol] 7.7 g/dL Normal 6.1-8.2 [facility] Comment on above: Performed By: #### A MY, CMP, LIPA #### [facility] [address] [place] [address] Dr. Lawrence Wayne Sodium [Moles/Vol] 136 mmol/L Critically low 137-145 [facility] Comment on above: Performed By: #### A MY, CMP, LIPA #### [facility] [address] [place] [address] Dr. Lawrence Wayne Urea nitrogen [Mass/Vol] 16.0 mg/dL Normal 7.0-17.0 [facility] Comment on above: Performed By: #### A MY, CMP, LIPA #### [facility] [address] [place] [address] Dr. Lawrence Wayne Urea nitrogen/Creatinine [Mass ratio] 16.5 mg/mg Normal [facility] Comment on above: Performed By: #### A MY, CMP, LIPA #### [facility] [address] [place] [address] Dr. Lawrence Wayne AMIRA by IFAon 08-12-2021 Antinuclear Antibodies, IFA Positive Abnormal [facility] Comment on above: Result Comment: Nega tive <1:80 Borderline 1:80 Positive >1:80 Performed By: #### A NAIFA ####[facility] [id number] [address]Dr. Lawrence Wayne Centriole Pattern Normal [facility] Comment on above: Performed By: #### A NAIFA ####[facility] [id number] [address]Dr. Lawrence Wayne Centromere Pattern Normal [facility] Comment on above: Performed By: #### A NAIFA ####[facility] [id number] [address]Dr. Lawrence Wayne Homogeneous Pattern Normal [facility] Comment on above: Performed By: #### A NAIFA ####[facility] [id number] [address]Dr. Lawrence Wayne Midbody Pattern Normal [facility] Comment on above: Performed By: #### A NAIFA ####[facility] [id number] [address]Dr. Lawrence Wayne Note: Comment Normal [facility] Comment on above: Result Comment: For more [...] titers Nucleosomes, Histones Drug-induced SLE Speckled Sm, HYDRAULIC TESTER, SCL-70, SLE,MCTD,PSS (diffuse form), SS-A/SS-B Sjogrens Nucleolar SCL-70, PM-1/SCL High titers Scleroderma, PM/DM Centromere Centromere PSS (limited form) w/Crest syndrome variable Nuclear Dot [id number] Primary Biliary Cirrhosis Nuclear GP210, Primary Biliary Cirrhosis Membrane [place] A,B,C Performed By: #### A MICHELLE ####[facility] [id number] [place], [place] [address]Av. Lawrence Wayne Nuclear Dot Pattern Normal [facility] Comment on above: Performed By: #### A MICHELLE ####[facility] [address] [place] [address]Dr. Lawrence Wayne Nuclear Membrane Pattern Normal [facility] Comment on above: Performed By: #### A NAIFA ####[facility] [id number] [place] [address]Dr. Lawrence Wayne Nucleolar Pattern Normal [facility] Comment on above: Performed By: #### A NAIFA ####[facility] [address] [place] [address]Dr. Lawrence Wayne PCNA Pattern Normal [facility] Comment on above: Performed By: #### A NAIFA ####[facility] [address] [place] [address]Dr. Lawrence Wayne Speckled Pattern 1:160 Critically high [facility] Comment on above: Result Comment: ICAP nomenclature: AC-2,4,5,29 Performed By: #### A NAIFA ####[facility] [address] [place] [address]Dr. Lawrence Wayne Spindle Apparatus Pattern Normal [facility] Comment on above: Performed By: #### A NAIFA ####[facility] [address] [place] [address]Dr. Lawrence Wayne AMIRA DIRECTon 08-11-2021 AMIRA Direct Positive Abnormal Negative [facility] Comment on above: Performed By: #### A NAD ####[facility] [address] [place] [address]Dr. Lawrence Wayne SLE PROFILE Aon 08-11-2021 Anti-DNA (DS) Ab Qn 1 IU/mL Normal 0-[address] [facility] Comment on above: Result Comment: Nega tive <5 Equivocal 5 - 9 Positive >9 Performed By: #### A MY, CMP, LIPA #### [facility] [address] [address] [address] Lawrence Wayne Antichromatin Antibodies <0.2 Normal 0.0-0.9 [facility] Comment on above: Performed By: #### A MY, CMP, LIPA #### [facility] [address] [address] [address] Lawrence Wayne RA Latex Turbid. <10.0 Normal <14.0 [facility] Comment on above: Performed By: #### A MY, CMP, LIPA #### [facility] [address] [address] [address] Lawrence Wayne HYDRAULIC TESTER Antibodies <0.2 Normal 0.0-0.9 [facility] Comment on above: Performed By: #### A MY, CMP, LIPA #### [facility] [address] [address] [address] Lawrence Wayne Sjogren's Anti-SS-A 1.4 AI Critically high 0.0-0.9 [facility] Comment on above: Performed By: #### A MY, CMP, LIPA #### [facility] [address] [place] [address] Dr. Lawrence Garciaogrvidal's Anti-SS-B <0.2 Normal 0.0-0.[address] [facility] Comment on above: Performed By: #### A MY, CMP, LIPA #### [facility] [address] [address] [address] Lawrence Wayne Ramos Antibodies <0.2 Normal 0.0-0.9 [facility] Comment on above: Performed By: #### A MY, CMP, LIPA #### [facility] [address] [address] [address] Lawrence Wayne ANTISTREPTOLYSIN O AB (ASO) on 08-10-2021 Antistreptolysin O Ab 55.6 IU/mL Normal 0.0-200.0 [facility] Comment on above: Performed By: #### A MY, CMP, LIPA #### [facility] [address] [address] [address] Lawrence Wayne C3 and C4 COMPLEMENTon 08-10 Complement C3, Serum 124 mg/dL Normal 82-167 [facility] Comment on above: Performed By: #### A MY, CMP, LIPA #### [facility] [address] [address] [address] Lawrence Wayne Complement C4, Serum 12 mg/dL Normal 12-38 [facility] Comment on above: Performed By: #### A MY, CMP, LIPA #### [facility] [address] [place] [address] Dr. Lawrence Wayne CBC AUTO DIFFon 08-09-2021 BASO # 0.1 103/ul Normal 0.0-0.1 [facility] Comment on above: Performed By: #### A MY, CMP, LIPA #### [facility] [address] [place] [address] Dr. Lawrence Wayne Basophils/100 WBC (Bld) 0.6 % Normal 0.2-2.0 [facility] Comment on above: Performed By: #### A MY, CMP, LIPA #### [facility] [address] [place] [address] Dr. Lawrence Wayne EO # 0.0 103/ul Normal 0.0-0.7 [facility] Comment on above: Performed By: #### A MY, CMP, LIPA #### [facility] [address] [place] [address] Dr. Lawrence Wayne Eosinophils/100 WBC (Bld) 0.2 % Critically low 0.9-7.0 [facility] Comment on above: Performed By: #### A MY, CMP, LIPA #### [facility] [address] [place] [address] Dr. Lawrence Wayne Erythrocyte distribution width (RBC) [Ratio] 13.4 % Normal 11.0-15.0 [facility] Comment on above: Performed By: #### A MY, CMP, LIPA #### [facility] [address] [place] [address] Dr. Lawrence Wayne Hematocrit (Bld) [Volume fraction] 43.6 % Normal 36.0-48.0 [facility] Comment on above: Performed By: #### A MY, CMP, LIPA #### [facility] [address] [place] [address] Dr. Lawrence Wayne Hemoglobin (Bld) [Mass/Vol] 14.2 g/dL Normal 12.0-16.0 [facility] Comment on above: Performed By: #### A MY, CMP, LIPA #### [facility] [address] [address] [address] Lawrence Wayne IG # 0.03 10e3/ul Normal 0.00-0.03 [facility] Comment on above: Performed By: #### A MY, CMP, LIPA #### [facility] [address] [address] [address] Lawrence Wayne IG % 0.3 % Normal 0.0-0.5 [facility] Comment on above: Performed By: #### A MY, CMP, LIPA #### [facility] [address] [place] [address] Dr. Lawrence Wayne LYMPH # 1.1 103/ul Critically low 1.2-3.8 [facility] Comment on above: Performed By: #### A MY, CMP, LIPA #### [facility] [address] [place] [address] Dr. Lawrence Wayne Lymphocytes/100 WBC (Bld) 12.7 % Critically low 20.5-60.0 [facility] Comment on above: Performed By: #### A MY, CMP, LIPA #### [facility] [address] [address] [address] Lawrence Wayne MANUAL DIFF REQ NO Normal [facility] Comment on above: Performed By: #### A MY, CMP, LIPA #### [facility] [address] [place] [address] Dr. Lawrence Wayne MCH (RBC) [Entitic mass] 30.3 pg Normal 26.7-34.0 [facility] Comment on above: Performed By: #### A MY, CMP, LIPA #### [facility] [address] [place] [address] Dr. Lawrence Wayne MCHC (RBC) [Mass/Vol] 32.6 g/dL Normal 29.9-35.2 [facility] Comment on above: Performed By: #### A MY, CMP, LIPA #### [facility] [address] [place] [address] Dr. Lawrence Wayne MCV (RBC) [Entitic vol] 93.0 fL Normal 81.0-99.0 [facility] Comment on above: Performed By: #### A MY, CMP, LIPA #### [facility] [address] [place] [address] Dr. Lawrence Wayne MONO # 0.3 103/ul Normal 0.3-0.8 [facility] Comment on above: Performed By: #### A MY, CMP, LIPA #### [facility] [address] [place] [address] Dr. Lawrence Wayne Monocytes/100 WBC (Bld) 3.7 % Normal 1.7-12.0 [facility] Comment on above: Performed By: #### A MY, CMP, LIPA #### [facility] [address] [place] [address] Dr. Lawrence Wayne NEUT # 7.3 103/ul Critically high 1.4-6.5 [facility] Comment on above: Performed By: #### A MY, CMP, LIPA #### [facility] [address] [place] [address] Dr. Lawrence Wayne Neutrophils/100 WBC (Bld) 82.5 % Critically high 43.0-75.0 [facility] Comment on above: Performed By: #### A MY, CMP, LIPA #### [facility] [address] [place] [address] Dr. Lawrence Wayne Platelet mean volume (Bld) [Entitic vol] 9.6 fL Normal 9.5-13.5 [facility] Comment on above: Performed By: #### A MY, CMP, LIPA #### [facility] [address] [place] [address] Dr. Lawrence Wayne PLT 322 103/ul Normal 150-450 [facility] Comment on above: Performed By: #### A MY, CMP, LIPA #### [facility] [address] [place] [address] Dr. Lawrence Wayne RBC 4.69 106/ul Normal 4.20-5.40 [facility] Comment on above: Performed By: #### A MY, CMP, LIPA #### [facility] [address] [address] [address] Lawrence Wayne WBC 8.8 103/ul Normal 4.0-11.0 [facility] Comment on above: Performed By: #### A MY CMP, LIPA #### [facility] [address] [address] [address] Lawrence Wayne CRPon 08-09-2021 CRP [Mass/Vol] mg/L Normal <=1.0 [facility] Comment on above: Performed By: #### A MY, CMP, LIPA #### [facility] [address] [address] [address] Lawrence Wayne IRONon 08-09-2021 Iron [Mass/Vol] 83.0 ug/dL Normal 37.0-170.0 [facility] Comment on above: Performed By: #### A MY CMP, LIPA #### [facility] [address] [address] [address] Lawrence Wayne SED RATE WESTERGRENon 2021 SED RATE 16 mm/hr Normal <=30 [facility] Comment on above: Performed By: #### S EDR ####[facility] [address] [place] [address]Dr. Lawrence Wayne URIC ACID SERUMon 08-09-2021 Urate [Mass/Vol] 3.4 mg/dL Normal 2.5-6.2 [facility] Comment on above: Performed By: #### A GARTH, CMP, LIPA #### [facility] [address] [address] [address] Lawrence Wayne XR CSPINE MIN 4 [...] by: TYRELL MOREJON Date: 2021-08-09 14:37 Normal [facility] H PYLORI ANTIBODY IGGon 06-16 H. PYLORI IGG ABS 0.13 Index Value Normal 0.00-0.79 [facility] Comment on above: Result Comment: Nega tive <0.80 Equivocal 0.80 - 0.89 Positive >0.89 Performed By: #### A MY, CMP, LIPA #### [facility] [address] [place] [address] Dr. Lawrence Wayne AMYLASEon 07-11-2021 Amylase [Catalytic activity/Vol] 100 U/L Normal 31-110 [facility] Comment on above: Performed By: #### A MY, CMP, LIPA #### [facility] [address] [place] [address] Dr. Lawrence Wayne CBC AUTO DIFFon 07-11-2021 BASO # 0.1 103/ul Normal 0.0-0.1 [facility] Comment on above: Performed By: #### A MY, CMP, LIPA #### [facility] [address] [place] [address] Dr. Lawrence Wayne Basophils/100 WBC (Bld) 0.7 % Normal 0.2-2.0 [facility] Comment on above: Performed By: #### A MY, CMP, LIPA #### [facility] [address] [place] [address] Dr. Lawrence Wayne EO # 0.1 103/ul Normal 0.0-0.7 [facility] Comment on above: Performed By: #### A MY, CMP, LIPA #### [facility] [address] [place] [address] Dr. Lawrence Wayne Eosinophils/100 WBC (Bld) 1.2 % Normal 0.9-7.0 [facility] Comment on above: Performed By: #### A MY, CMP, LIPA #### [facility] [address] [place] [address] Dr. Lawrence Wayne Erythrocyte distribution width (RBC) [Ratio] 13.9 % Normal 11.0-15.0 [facility] Comment on above: Performed By: #### A MY, CMP, LIPA #### [facility] [address] [address] [address] Lawrence Wayne Hematocrit (Bld) [Volume fraction] 45.9 % Normal 36.0-48.0 [facility] Comment on above: Performed By: #### A MY, CMP, LIPA #### [facility] [address] [place] [address] Dr. Lawrence Wayne Hemoglobin (Bld) [Mass/Vol] 14.9 g/dL Normal 12.0-16.0 [facility] Comment on above: Performed By: #### A MY, CMP, LIPA #### [facility] [address] [place] [address] Dr. Lawrence Wayne IG # 0.03 10e3/ul Normal 0.00-0.03 [facility] Comment on above: Performed By: #### A MY, CMP, LIPA #### [facility] [address] [place] [address] Dr. Lawrence Wayne IG % 0.4 % Normal 0.0-0.5 [facility] Comment on above: Performed By: #### A MY, CMP, LIPA #### [facility] [address] [place] [address] Dr. Lawrence Wayne LYMPH # 2.2 103/ul Normal 1.2-3.8 [facility] Comment on above: Performed By: #### A MY, CMP, LIPA #### [facility] [address] [place] [address] Dr. Lawrence Wayne Lymphocytes/100 WBC (Bld) 29.0 % Normal 20.5-60.0 [facility] Comment on above: Performed By: #### A MY, CMP, LIPA #### [facility] [address] [place] [address] Dr. Lawrence Wayne MANUAL DIFF REQ NO Normal [facility] Comment on above: Performed By: #### A MY, CMP, LIPA #### [facility] [address] [place] [address] Dr. Lawrence Wayne MCH (RBC) [Entitic mass] 29.8 pg Normal 26.7-34.0 [facility] Comment on above: Performed By: #### A MY, CMP, LIPA #### [facility] [address] [place] [address] Dr. Lawrence Wayne MCHC (RBC) [Mass/Vol] 32.5 g/dL Normal 29.9-35.2 [facility] Comment on above: Performed By: #### A MY, CMP, LIPA #### [facility] [address] [place] [address] Dr. Lawrence Wayne MCV (RBC) [Entitic vol] 91.8 fL Normal 81.0-99.0 [facility] Comment on above: Performed By: #### A MY, CMP, LIPA #### [facility] [address] [place] [address] Dr. Lawrence Wayne MONO # 0.9 103/ul Critically high 0.3-0.8 [facility] Comment on above: Performed By: #### A MY, CMP, LIPA #### [facility] [address] [place] [address] Dr. Lawrence Wayne Monocytes/100 WBC (Bld) 11.7 % Normal 1.7-12.0 [facility] Comment on above: Performed By: #### A MY, CMP, LIPA #### [facility] [address] [place] [address] Dr. Lawrence Wayne NEUT # 4.3 103/ul Normal 1.4-6.5 [facility] Comment on above: Performed By: #### A MY, CMP, LIPA #### [facility] [address] [place] [address] Dr. Lawrence Wayne Neutrophils/100 WBC (Bld) 57.0 % Normal 43.0-75.0 [facility] Comment on above: Performed By: #### A MY, CMP, LIPA #### [facility] [address] [place] [address] Dr. Lawrence Wayne Platelet mean volume (Bld) [Entitic vol] 8.7 fL Critically low 9.5-13.5 [facility] Comment on above: Performed By: #### A MY, CMP, LIPA #### [facility] [address] [place] [address] Dr. Lawrence Wayne PLT 351 103/ul Normal 150-450 [facility] Comment on above: Performed By: #### A MY, CMP, LIPA #### [facility] [address] [address] [address] Lawrence Wayne RBC 5.00 106/ul Normal 4.20-5.40 [facility] Comment on above: Performed By: #### A MY, CMP, LIPA #### [facility] [address] [place] [address] Dr. Lawrence Wayne WBC 7.6 103/ul Normal 4.0-11.0 [facility] Comment on above: Performed By: #### A MY, CMP, LIPA #### [facility] [address] [place] [address] Dr. Lawrence Wayne LIPASEon 07-11-2021 Lipase [Catalytic activity/Vol] 93.0 U/L Normal 23.0-300.0 [facility] Comment on above: Performed By: #### A MY, CMP, LIPA #### [facility] [address] [place] [address] Dr. Lawrence Wayne PROF 14(COMP METB)on 022 Albumin [Mass/Vol] 4.1 g/dL Normal 3.5-5.0 [facility] [place] [facility] Comment on above: Performed By: #### A MY, CMP, LIPA #### [facility] [address] [place] [address] Dr. Lawrence Wayne Albumin/Globulin [Mass ratio] 1.1 {ratio} Normal [facility] Comment on above: Performed By: #### A MY, CMP, LIPA #### [facility] [address] [place] [address] Dr. Lawrence Wayne ALP [Catalytic activity/Vol] 101 U/L Normal 38-126 [facility] Comment on above: Performed By: #### A MY, CMP, LIPA #### [facility] [address] [address] [address] Lawrence Wayne ALT [Catalytic activity/Vol] 38 U/L Normal 9-52 [facility] Comment on above: Performed By: #### A MY, CMP, LIPA #### [facility] [address] [address] [address] Lwarence Wayne Anion gap [Moles/Vol] 12.5 mmol/L Normal [facility] Comment on above: Performed By: #### A MY, CMP, LIPA #### [facility] [address] [address] [address] Lawrence Wayne AST [Catalytic activity/Vol] 25 U/L Normal 14-36 [facility] Comment on above: Performed By: #### A MY, CMP, LIPA #### [facility] [address] [place] [address] Dr. Lawrence Wayne Bilirubin [Mass/Vol] 0.8 mg/dL Normal 0.2-1.3 [facility] Comment on above: Performed By: #### A MY, CMP, LIPA #### [facility] [address] [place] [address] Dr. Lawrence Wayne Calcium [Mass/Vol] 9.9 mg/dL Normal 8.4-10.2 [facility] [place] [facility] Comment on above: Performed By: #### A MY, CMP, LIPA #### [facility] [address] [place] [address] Dr. Lawrence Wayne Chloride [Moles/Vol] 98 mmol/L Normal 98-107 [facility] Comment on above: Performed By: #### A MY, CMP, LIPA #### [facility] [address] [place] [address] Dr. Lawrence Wayne CO2 [Moles/Vol] 26.6 mmol/L Normal 22.0-30.0 [facility] Comment on above: Performed By: #### A MY, CMP, LIPA #### [facility] [address] [place] [address] Dr. Lawrence Wayne Creatinine [Mass/Vol] 1.12 mg/dL Critically high 0.52-1.04 [facility] Comment on above: Performed By: #### A MY, CMP, LIPA #### [facility] [address] [address] [address] Lawrence Wayne EGFR-AF RUSSIAN 59 mL/min/1.73m2 Critically low >=60 [facility] Comment on above: Performed By: #### A MY, CMP, LIPA #### [facility] [address] [address] [address] Lawrence Wayne EGFR-NON AF RUSSIAN 49 mL/min/1.73m2 Critically low >=60 [facility] Comment on above: Performed By: #### A MY, CMP, LIPA #### [facility] [address] [place] [address] Dr. Lawrence Wayne Globulin (S) [Mass/Vol] 3.7 g/dL Normal [facility] Comment on above: Performed By: #### A MY, CMP, LIPA #### [facility] [address] [place] [address] Dr. Lawrence Wayne Glucose [Mass/Vol] 117 mg/dL Critically high 74-106 T [facility] Comment on above: Performed By: #### A MY, CMP, LIPA #### [facility] [address] [place] [address] Dr. Lawrence Wayen Potassium [Moles/Vol] 4.1 mmol/L Normal 3.4-5.0 [facility] Comment on above: Performed By: #### A MY, CMP, LIPA #### [facility] [address] [address] [address] Lawrence Wayne Protein [Mass/Vol] 7.8 g/dL Normal 6.1-8.2 [facility] [place] [facility] Comment on above: Performed By: #### A MY, CMP, LIPA #### [facility] [address] [address] [address] Lawrence Wayne Sodium [Moles/Vol] 133 mmol/L Critically low 137-145 [facility] Comment on above: Performed By: #### A MY, CMP, LIPA #### [facility] [address] [place], [place] [address] Dr. Lawrence Wayne Urea nitrogen [Mass/Vol] 9.0 mg/dL Normal 7.0-17.0 [facility] Comment on above: Performed By: #### A MY, CMP, LIPA #### [facility] [address] [place], [place] [address] Dr. Lawrence Wayne Urea nitrogen/Creatinine [Mass ratio] 8.0 mg/mg Normal [facility] Comment on above: Performed By: #### A MY, CMP, LIPA #### [facility] [address] [place], [place] [address] Dr. Lawrence Wayne Vital Signs Date Time Vital Sign Value Performing Clinician Thadi boris 05-27-2022 15:00-0500 Body height 160.02 cm Prasad Isabel Other [facility] Other 05-27-2022 15:00-0500 Body mass index (BMI) [Ratio] 23.56 kg/m2 Prasad Isabel Other [facility] Other 05-27-2022 15:00-0500 Body weight 60.33 kg Prasad Isabel Other [facility] Other Encounters Encounter Date Encounter Type Care Provider Facility Start: 01-18-2024 End: 01-18-2024 ambulatory Cindy Phan Facility:[facility] Start: 01-11-2024 End: 01-11-2024 ambulatory CINDY PHAN Not Available Start: 11-16-2023 End: 11-16-2023 ambulatory CINDY PHAN Not Available Start: 11-02-2023 End: 11-02-2023 ambulatory JASVIR SMILEY Not Available Start: 10-08-2023 End: 10-08-2023 ambulatory MIGUEL ÁNGEL HER Not Available Start: 07-27-2023 Bamboo flowsheet Cindy rivero DO Work Phone: [facility] Start: 07-27-2023 Bamboo flowsheet Cindy rivero DO Work Phone: [facility] Start: 07-27-2023 End: 07-27-2023 ambulatory CINDY PHAN Not Available Start: 07-01-2022 End: 07-02-[address] ANITHA MCGREGOR Facility:[facility] Start: 06-23-2022 End: 06-23-2022 ambulatory ANITHA MCGREGOR Facility:[facility] Start: 06-23-2022 End: 06-23-2022 ambulatory Benjamin Moore PA-C Work Phone: [facility] [place] Comment on above: Fibromyalgia (Primar y Dx); Cervicalgia Start: 06-23-2022 End: 06-23-2022 Telemedicine consultation with patient Benjamin Moore PA-C Work Phone: [facility] Start: 06-17-2022 End: 06-17-[address] JULIANN ROGER Facility:[facility] Start: 06-03-2022 End: 06-03-2022 ambulatory Bentley Bragg Other [facility] Other Start: 06-03-2022 Chart abstracting Unk (Historical) N eurology Start: 06-03-2022 Telephone encounter Bentley Bragg [facility] Start: 05-27-2022 End: 05-27-2022 ambulatory Prasad Isabel Other [facility] Other Start: 05-27-2022 Office outpatient ne w 30 minutes Prasad Isabel [facility] Start: 05-20-2022 End: 05-21-[address] AINTHA MCGREGOR Facility:[facility] Start: 05-07-2022 End: 05-08-2022 ambulatory [...] End: 07-06-2018 Patient encounter procedure Kings Thomson Facility:[facility] Procedures Date Procedure Procedure Detail Performing [...] [facility] [address] [place] [address] Cindy Phan DO [address] [place], [place] [id number] [facility] Start: 07-27-2023 End: 07-27-2023 Patient encounter procedure 07/27/2023 2:15 PM EST Office Visit [facility] [address] [place] [address] iCndy Phan DO [address] [place] [address] Arrived [facility] Comment on above: Arrived Start: 03-26-2023 Screening for malign ant neoplasm of breast Mammogram [facility] Start: 02-13-2023 Influenza vaccination Influenza Vacc ine (#1) [facility] Start: 06-15-2022 ADVANCE DIRECTIVE DISCUSSION ADVANCE DIRECTIVE DISCUSSION [facility] Start: 06-15-2022 DEPRESSION ASSESSMENT DEPRESSION ASS ESSMENT [facility] Start: 02-13-2022 Influenza vaccination INFLUENZA (#1) [facility] Start: 12-08-2021 COVID-19 VACCINE (5 - Booster for Moderna series) COVID-19 VACCINE (5 - Booster for Moderna series) [facility] Start: 06-15-2021 ADVANCE DIRECTIVE DISCUSSION ADVANCE DIRECTIVE DISCUSSION [facility] Start: 06-15-2021 DEPRESSION ASSESSMENT DEPRESSION ASS ESSMENT [facility] Start: 01-11-2021 BONE DENSITY BONE DENSITY [facility] Start: 01-11-2021 Pneumococcal Vaccine : 65+ Years (1 - PCV) Pneumococcal Vaccine: 65+ Years (1 - PCV) [facility] Start: 01-11-2021 PNEUMOCOCCAL: 65+ (1 - PCV) PNEUMOCOCCAL: 65+ (1 - PCV) [facility] Start: 09-20-2012 DIABETES SCREEN DIABETES SCREEN [facility] Start: 01-11-2006 SHINGRIX VACCINE (1 of 2) SHINGRIX V ACCINE (1 of 2) [facility] Start: 01-11-2001 COLOGUARD (FIT-DNA) COLOGUARD (FIT-D NA) [facility] Start: 01-11-2001 Colonoscopy COLONOSCOPY [facility] Start: 01-11-2001 COLORECTAL CANCER SCREENING COLORECTAL CANCER SCREENING [facility] Start: 01-11-[address] COLONOGRAPHY [facility] Start: 01-11-2001 FECAL OCCULT BLOOD FECAL OCCULT BLOO D [facility] Start: 01-11-2001 LIPID SCREEN LIPID SCREEN [facility] Start: 01-11-2001 SIGMOIDOSCOPY SIGMOIDOSCOPY [facility] Start: 1996 Mammography MAMMOGRAM [facility] Start: 01-11-1975 Urine microalbumin profile DTAP,TDAP,TD (1 - Tdap) [facility] Start: 01-11-1974 HEPATITIS C SCREENING HEPATITIS C SC IESHA [facility] Start: 1955 COVID-19 VACCINE (#1) COVID-19 VACCI NE (#1) [facility] Start: 1955 Screening for malign ant neoplasm of colon [facility] Immunizations Immunization Date Immunization Notes Care Provider Bill dorsey 04-09-2022 influenza virus vacc ine, unspecified formulation Cindy Phan DO Work Phone: [facility] Payers Date Payer Category Payer Medicare ANTHEM MEDICARE ADVANTAGE ANTHEM MEDICARE ADVANTAGE [id number] 2023-Present [address] [place] [address] [id number] 2021 Unknown ANTHEM BLUE CROS S AND BLUE SHIELD ANTHEM MEDIBLUE HMO [id number] 2021-Present [phone] [address] [place] [address] HMO [id number] 2018 Self-pay 2018 Unknown [id number] 1959 Unknown [id number] 1956 Unknown [id number] 2.840.1.951802.3.579.2.593 1956 Unknown [id number] .840.1.337989.3.579.2.593 1956 Unknown [id number] 2.16840.1.928376.3.579.2.593 1956 Unknown [id number] 2.16.840.1.394321.3.579.2.593 1956 Unknown [id number] 2.16.840.1.181800.3.579.2.593 1956 Unknown [id number] 2.16840.1.843060.3.579.2.593 1956 Unknown [id number] 2.16.840.1.845297.3.579.2.593 1956 Unknown [id number] 2.16.840.1.628911.3.579.2.593 1956 Unknown [id number] 2.16.840.1.438248.3.579.2.593 1956 Unknown [id number] 2.16.840.1.369891.3.579.2.593 1956 Unknown [id number] 2.16.840.1.403835.3.579.2.593 1956 Unknown [id number] 2.16.840.1.212765.3.579.2.593 1956 Unknown [id number] 2.16.840.1.587613.3.579.2.593 1956 Unknown [id number] 2.16.840.1.091358.3.579.2.125 9 1956 Unknown [id number] 2.16.840.1.549631.3.579.2.125 9 1956 Unknown [id number] 2.16.840.1.740995.3.579.2.125 9 1956 Unknown [id number] 2.16.840.1.057634.3.579.2.125 9 1956 Unknown [id number] 2.16.840.1.189061.3.579.2.125 9 1956 Unknown [id number] 2.16.840.1.045925.3.579.2.727 1956 Unknown [id number] 2.16.840.1.131727.3.579.2.727 Unknown [id number] 2.16.840.1.777659.3.579.2.531 Social History Date Type Detail Facility Start: 04-10-2011 End: 07-27-2023 Tobacco smoking status [facility] Never smoked tobacco [facility] Start: 04-10-2011 End: 07-27-2023 Tobacco use and exposure Smokeless tobacco non-user [facility] Start: 05-13-2018 Alcohol intake 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 Intraocular lens (IOL) [...] (RGP) lenses occurred. documented in this encounter [facility] 06-23-2022 Note HNO ID: [id number] Author: Benjamin Moore PA-C Service: ? Author Type: Physician Microelectronics Assembler Type: Progress Notes Filed: 06/23/2022 7:54 AM Note Text: AMBULATORY TELEPHONE VISIT Skip Hong has consented to this telephone encounter. Patient was unable to connect to [employer] Virtual Visit - call to patient to [...] Time Spent: 45 minutes Benjamin Moore PA-C [facility] 06-23-2022 History of Present illness Narrative AMBULATORY TELEPHONE VISIT Skip Hong has consented to this telephone encounter. Patient was unable to connect to [employer] Virtual Visit - call to patient to [...] Benjamin Moore PA-C documented in this encounter [facility] 06-04-2022 Note HNO ID: [id number] Author: Sangeetha Vasquez APRN.COMMERCIAL INTELLIGENCE MANAGER Service: ? Author Type: Nurse Practitioner [...] person or virtual visit whatever patient preference. [facility] 06-04-2022 History of Present illness Narrative Per [...] Health Provider or Pain Management Provider at [facility]? No If answer is YES please [...] facility where the MRI/CT/myelogram was completed: [place] [address] MRI/CT/myelogram viewable in Epic: No If not, please provide [phone] to fax in imaging reports for review. Also, please inform patient to hand carry imaging disc to appointment. XR (spine) within 12 months: Yes If YES, please ask for the name/address of the facility where the XR was completed: [place] [address] Dr. Humphreys's patients: Have you had previous [...] injections and/or physical therapy was completed Injections: [facility] [address] [place] [address] PT: unable to recall facility Have you [...] where the surgery was completed: Additional Comments [phone] documented in this encounter [facility] 06-03-2022 Note HNO ID: [id number] Author: Celeste Khalil Research Coordinator Service: ? Author Type: Research Type: Progress Notes Filed: 06/04/2022 11:31 AM Note Text: Patient name: Skip Hong Are you being referred by a [place] for Spine Health Provider or Pain Management Provider at [facility]? No If answer is YES please [...] facility where the MRI/CT/myelogram was completed: [place] [address] MRI/CT/myelogram viewable in Epic: No If not, please provide [phone] to fax in imaging reports for review. Also, please inform patient to hand carry imaging disc to appointment. XR (spine) within 12 months: Yes If YES,? please ask for the name/address of the facility where the XR was completed: [facility] [address] [place] [address] Dr. Humphreys's patients: Have you had previous [...] injections and/or physical therapy was completed Injections: [facility] [address] [place] [address] PT: unable to recall facility Have you [...] where the surgery was completed: Additional Comments [phone] [facility] 05-27-2022 Evaluation note Encounter Date Diagnosis Assessment [...] and agrees. A referral will be sent [facility] Other evaluation note* Diagnosis Fibromyalgia- Primary Mylagia and myositis, unspecified Cervicalgia [facility] note[facility] InformationNort [employer] Other Evaluation note* Diagnosis Age-related nuclear cataract [...] History arthroscopy shoulder Hospitalization History see above [facility] Other reason for visit NarrativeReferral update - [facility] Other Summary Purpose Family History No Family [...] Diagnosis 1 Neck pain (M54.2) Referral Organization [facility] urosurgery Referring Provider First Name Prasad Referring Provider Last Name Maame Referring Provider Specialty Neurologica l Surgery Referred Organization [facility] Pain Managemen t Referred Provider Bentley Bragg Referred Address [address] [place] [id number] Referred Provider Specialty Pain Medicin e Referral Priority Routine General Notes Jenifer Ramírez 022 08:31:51 AM >Received today and sent P2P Esthela Navarro 06/03/2022 02:35:54 PM >fyi patient declined seeing Dr Bragg, she stated she has returned to her previous PM provider in [place] Jenifer Ramírez 06/03/2022 02:59:27 PM >OK, thank you for the update. Telephone encounter was sent Additional Source Comments INFORMATION SOURCE (unrecogn ized section and content) DATE CREATED AUTHOR 07/22/2018 [facility] DATE CREATED AUTHOR AUTHOR'S ORGANIZ ATION 06/23/2022 [facility] DATE CREATED AUTHOR AUTHOR'S ORGANIZ ATION 07/02/2022 [facility] DATE CREATED AUTHOR AUTHOR'S ORGANIZ ATION 01/13/2024 [facility] dical [facility] DATE CREATED AUTHOR AUTHOR'S ORGANIZ ATION 01/19/2024 [facility] DATE CREATED AUTHOR AUTHOR'S ORGANIZ ATION 01/20/2024 [facility] DATE CREATED AUTHOR AUTHOR'S ORGANIZ ATION 01/27/2024 [facility] Source Comments (unrecognize d section and content) In the event this informatio n is protected by the Federal Confidentiality of Alcohol and Drug Abuse Patient Records regulations: The Federal rules restrict any use of the information to criminally investigate or prosecute any alcohol or drug abuse patient.[facility] the event this information is protected by the Federal Confidentiality of Alcohol and Drug Abuse Patient Records regulations: The Federal rules restrict any use of the information to criminally investigate or prosecute any alcohol or drug abuse patient.[facility] Care Teams (unrecognized sec tion and content) [employer] Relationship Specialty Start Date End Date Anitha Mcgregor MD [address] [facility] [place] [address] PCP - General 09/07/09 Luli Roy (Hist), MD [address] [facility], [place] [id number] Referring Gastroenterology 05/04/18 [employer] Relationship Specialty Start Date End Date Anitha Mcgregor MD [address] [facility] [place] [address] PCP - General 09/07/09 Luli Roy (Hist), MD [address]ron [address] [place], [place] [id number] Referring Gastroenterology 05/04/18 [employer] Relationship Specialty Start Date End Date Anitha Mcgregor MD [address] [facility] [place] [address] PCP - General Family Medicine 07/27/23 Reason [...] THE PRIMARY CLINICAL RECORDS. [facility] [email or web address] provides no warranty or guarantee of the accuracy or completeness of information in this document.
== END 2024-03-14 07:54 | disposition home or self-care (01) ==
LOC: LAB 07:53
PROVIDERS: PCP Family Medicine; Visit Provider Family Medicine
DX: E23.6 Other disorders of pituitary gland (principal); Z09 Encounter for follow-up examination after completed treatment for conditions other than malignant neoplasm
CPT/HCPCS: 70553; A9575

== ENCOUNTER 2024-04-11 10:58 | Outpatient (OUT) | payer MEDICARE, SELFPAY ==
--- NOTE | 2024-04-11 11:01 | MM_ITS ---
Patient Name: CRISTOBAL CALERO MR#: [id number] : 1955 Exam Date: 04/11/2024 Ordering Doctor: DR Min Mcgregor . RADIOLOGY REPORT PROCEDURE: MM TOMOSYNTHESIS SCREENING BI COMPARISON: MG MAMM SCREEN 3D QING CAD, 03/26/2022. MM TOMOSYNTHESIS SCREENING BI, 04/08/2023. INDICATIONS: screening for malignant neoplasm Calculator Name NCI Breast Cancer Risk Assessment Tool 5 Year Breast Cancer Risk 1.40% Lifetime Breast Cancer Risk 4.60% Personal Breast Cancer No Personal Ovarian Cancer No Treatments None Family Cancers Cousin-maternal with breast cancer at age 29. LOCATION: [facility] BREAST COMPOSITION: The breasts are heterogeneously dense,which may obscure small masses. FINDINGS: DIAGNOSTIC CATEGORY 2--BENIGN FINDING. NO CHANGE FROM COMPARISON. Scattered benign-appearing calcifications are present. Scattered benign-appearing lymph nodes are present. RIGHT BREAST: No significant suspicious finding. Axillary surgical clips, stable LEFT BREAST: No significant suspicious finding. RECOMMENDATIONS: ROUTINE MAMMOGRAM AND CLINICAL EVALUATION IN 12 MONTHS. PLEASE NOTE: A NORMAL MAMMOGRAM DOES NOT EXCLUDE THE POSSIBILITY OF BREAST CANCER. A CLINICALLY SUSPICIOUS PALPABLE LUMP SHOULD BE BIOPSIED. Dictated by: Booker Rasheed MD on 04/11/2024 at 13:56 Approved by: Booker Rasheed MD on 04/11/2024 at 14:00
--- OUTSIDE RECORDS SUMMARY | 2024-04-11 11:11 | XMS_ITS | CCD ---
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 Role Phone BertoNilsont Attending Unavailable Anitha Mcgregor Primary Care Unavailable Anitha Mcgregor MD Primary Care Provider [phone] Luli Roy MD (Hist) Unavailable [phone] ANITHA MCGREGOR Primary Care Unavailable BENJAMIN MOORE [...] Unavailable KAROLINE, DR WELSH Primary Care Unavailable HOY, DR WELSH Attending Unavailable HOY, DR WELSH Admitting Unavailable WEST, DR MARK Almendarez Consulting Unavailable KAROLINE, DR WELSH Consulting Unavailable KAROLINE, DR WELSH Primary Care Unavailable KAROLINE, DR WELSH Attending Unavailable KAROLINE, DR WELSH Admitting Unavailable FOLEYENEDELIA RODRIGUEZ Consulting Unavailable KAROLINE, DR WELSH Consulting Unavailable KAROLINE, DR WELSH Primary Care Unavailable HOY, DR [...] Provider UnavailAnitha Montague MD Primary Care Provider [phone] CINDY PHAN Attending Unavailable ORAL MANSFIELD Referring [...] Allergy 06-03-20 22 Other: See Comments, Rash (3 sources) Adhesive Tape; Translations: [ADHESIVE TAPE (ROSINS)] Allergy to substance Other: See Comments (7 sources) Aspirin; Translations: [ASPIRIN] Drug Allergy 09-14-19 10 Unknown (3 sources) Butorphanol; Translations: [BUTORPHANOL TARTRATE] Drug Allergy 09-14-19 10 Other: See Comments (8 sources) Ciprofloxacin; Translations: [CIPROFLOXACIN] Drug Allergy 06-03-20 22 Other: See Comments, Rash (3 sources) Etodolac; Translations: [ETODOLAC] Drug Allergy 09-14-19 10 (3 sources) homatropine / HYDROcodone; Translations: [HYDROCODONE-HOMATR OPINE] Drug Allergy Other: See Comments (3 sources) HYDROmorphone; Translations: [HYDROMORPHONE (BULK)] Drug Allergy 04-10-20 11 Rash (8 sources) Morphine; Translations: [MORPHINE] Drug Allergy 09-14-19 10 Unknown (3 sources) Promethazine; Translations: [PROMETHAZINE HCL] Drug Allergy 09-14-19 10 (1 source) Acetaminophen / oxyCODONE Drug Allergy [facility] (1 source) Aspirin Drug Allergy [facility] (5 sources) Butorphanol; Translations: [Stadol] Drug Allergy Unknown [facility] (1 source) Ciprofloxacin Drug Allergy [facility] (1 source) Desonide Drug Allergy [facility] (3 sources) Etodolac; Translations: [Lodine] Drug Allergy [facility] (1 source) homatropine Drug Allergy [facility] (3 sources) HYDROmorphone; Translations: [Dilaudid] Drug Allergy [facility] (3 sources) Levamisole; Translations: [Phenergan] Drug Allergy [facility] (1 source) Morphine Drug Allergy [facility] (1 source) Bleach (Sodium Hypochlorite) Drug allergy (disorder) 01-11-19 56 [facility] (3 sources) HYDROmorphone Drug Allergy 04-10-20 11 Rash Dianwoba Other (2 sources) Promethazine Drug Allergy Unknown Dianwoba Other (2 sources) traMADol Drug Allergy Unknown Dianwoba Other (1 source) Aluminum aspirin Drug Allergy 09-14-19 10 Anaphylaxis [facility] Work Phone: (1 source) Butorphanol Drug Allergy 09-14-19 10 Rash [facility] (1 source) Etodolac Propensity to adverse reactions 09-14-19 10 Rash [facility] (1 source) Promethazine Drug Allergy 09-14-19 10 [facility] (1 source) Sulfamethoxazole / Trimethoprim Drug Allergy 06-03-20 [facility] (1 source) Theophylline Drug Allergy 06-03-20 [facility] (2 sources) Acetaminophen / oxyCODONE; Translations: [Percocet 5/325] Drug Allergy [facility] Rep[facility] (2 sources) Adhesive Tape; Translations: [Tape] Propensity to adverse reactions (disorder) [facility] (2 sources) homatropine / HYDROcodone; Translations: [Hydromet] Drug Allergy [facility] Medications Current Medications Medication Drug [...] th every 8 hours as needed. amylase 615963 unt / lipase 13245 unt / protease 18760 unt delayed release oral capsule (2 sources) [...] affected ar ea twice daily. 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; Translations: [OTH SNF CURRENT DRUG THERAPY] Onset: 06-19-19 Episodic Other [...] mGy = na DAP = na Normal [facility] BMPon 01-18-2024 Anion gap [Moles/Vol] 10 mmol/L Normal 6-16 [facility] Comment on above: Performed By: #### 2 [id number] #### [facility] [address] [place] [address] Calcium [Mass/Vol] 9.6 mg/dL Normal 8.9-11.1 [facility] Comment on above: Performed By: #### 2 [id number] #### [facility] [address] [place] [address] Chloride [Moles/Vol] 107 mmol/L Normal 101-111 [facility] Comment on above: Performed By: #### 2 [id number] #### [facility] [address] [place] [address] CO2 [Moles/Vol] 26 mmol/L Normal 21-31 [facility] Comment on above: Performed By: #### 2 [id number] #### [facility] [address] [place] [address] Creatinine [Mass/Vol] 0.9 mg/dL Normal 0.5-1.3 [facility] Comment on above: Performed By: #### 2 [id number] #### [facility] [address] [place] [address] Glucose [Mass/Vol] 95 mg/dL Normal 55-199 [facility] Comment on above: Performed By: #### 2 [id number] #### [facility] [address] [place] [address] Potassium [Moles/Vol] 3.9 mmol/L Normal 3.5-5.3 [facility] Comment on above: Performed By: #### 2 [id number] #### [facility] [address] [place] [address] Sodium [Moles/Vol] 139 mmol/L Normal 135-145 [facility] Comment on above: Performed By: #### 2 [id number] #### [facility] [address] [place] [address] Urea nitrogen [Mass/Vol] 9 mg/dL Normal 5-21 [facility] Comment on above: Performed By: #### 2 [id number] #### [facility] [address] [place] [address] Urea nitrogen/Creatinine [Mass ratio] 10 No Units Normal 10-20 [facility] Comment on above: Performed By: #### 2 [id number] #### [facility] [address] [place] [address] CBC w/Indiceson 01-18-2024 Erythrocyte distribution width (RBC) [Ratio] 14.5 % High 10.9-14.2 [facility] Comment on above: Performed By: #### 2 [id number] #### [facility] [address] [place] [address] Hematocrit (Bld) [Volume fraction] 43.1 % Normal 34.0-46.0 [facility] Comment on above: Performed By: #### 2 [id number] #### [facility] [address] [place] [address] Hemoglobin (Bld) [Mass/Vol] 14.5 g/dL Normal 12.0-16.0 [facility] Comment on above: Performed By: #### 2 [id number] #### [facility] [address] [place] [address] MCH (RBC) [Entitic mass] 30.6 pg Normal 27.0-34.0 [facility] Comment on above: Performed By: #### 2 [id number] #### [facility] [address] [place] [address] MCHC (RBC) [Mass/Vol] 33.6 g/dL Normal 31.4-36.0 [facility] Comment on above: Performed By: #### 2 [id number] #### [facility] [address] [place] [address] MCV (RBC) [Entitic vol] 91.0 fL Normal 80.0-100.0 [facility] Comment on above: Performed By: #### 2 [id number] #### [facility] [address] [place] [address] Platelet mean volume (Bld) [Entitic vol] 7.5 fL Normal 6.4-10.8 [facility] Comment on above: Performed By: #### 2 [id number] #### [facility] [address] [place] [address] Platelets (Bld) [#/Vol] 300.0 E9/L Normal 150.0-500.0 [facility] Comment on above: Performed By: #### 2 158823 #### [facility] [address] [place] [address] RBC (Bld) [#/Vol] 4.7 E12/L Normal 4.3-5.9 [facility] Comment on above: Performed By: #### 2 [id number] #### [facility] [address] [place] [address] RBC size Nom (Bld) NORMAL Invalid Interpretation Code [facility] Comment on above: Performed By: #### 2 [id number] #### [facility] [address] [place] [address] WBC corrected for nucl RBC Auto (Bld) [#/Vol] 5.9 E9/L Normal 4.0-11.0 [facility] Comment on above: Performed By: #### 2 075025 #### [facility] [address] [place] [address] eGFRon 01-18-2024 eGFR 70 mL/min/1.73 m2 Normal >=59 [facility] Comment on above: Order Comment: Order added by Discern Expert. Performed By: #### 1 [id number] #### [facility] [address] [place] [address] AMYLASEon 07-01-2022 Amylase [Catalytic activity/Vol] 117 U/L Critically high 25-115 [facility] Comment on above: Performed By: #### T SH, T7, ALIYAH, LIPA, CMP ####[facility] [address] [place], [place] [address]DrKim Wayne CBC AUTO DIFFon 07-01-2022 BASO # 0.1 103/ul Normal 0.0-0.1 [facility] Comment on above: Performed By: #### C BC ####[facility] [address] [place], [place] [address]Dr. Lawrence Wayne Basophils/100 WBC (Bld) 0.6 % Normal 0.2-2.0 [facility] Comment on above: Performed By: #### C BC ####[facility] [address] [place] [address]Dr. Lawrence Wayne EO # 0.1 103/ul Normal 0.0-0.7 [facility] Comment on above: Performed By: #### C BC ####[facility] [address] [place], [place] [address]Dr. Lawrence Wayne Eosinophils/100 WBC (Bld) 0.7 % Critically low 0.9-7.0 [facility] Comment on above: Performed By: #### C BC ####[facility] [address] [place], [place] [address]Dr. Lawrence Wayne Erythrocyte distribution width (RBC) [Ratio] 13.6 % Normal 11.0-15.0 [facility] Comment on above: Performed By: #### C BC ####[facility] [address] [place], [place] [address]Dr. Lawrence Wayne Hematocrit (Bld) [Volume fraction] 45.6 % Normal 36.0-48.0 [facility] Comment on above: Performed By: #### C BC ####[facility] [address] [place], [place] [address]Dr. Lawrence Wayne Hemoglobin (Bld) [Mass/Vol] 15.4 g/dL Normal 12.0-16.0 [facility] Comment on above: Performed By: #### C BC ####[facility] [address] [place], [place] [address]Dr. Lawrence Wayne IG # 0.03 10e3/ul Normal 0.00-0.03 [facility] Comment on above: Performed By: #### C BC ####[facility] [address] [place], [place] [address]Dr. Lawrence Wayne IG % 0.4 % Normal 0.0-0.5 [facility] Comment on above: Performed By: #### C BC ####[facility] [address] [place] [id number]. Lawrence Tone LYMPH # 2.8 103/ul Normal 1.2-3.8 [facility] Comment on above: Performed By: #### C BC ####[facility] [address] [place] [address]Dr. Lawrence Tone Lymphocytes/100 WBC (Bld) 33.5 % Normal 20.5-60.0 [facility] Comment on above: Performed By: #### C BC ####[facility] [address] [place] [address]Dr. Lawrence Tone MANUAL DIFF REQ NO Normal [facility] Comment on above: Performed By: #### C BC ####[facility] [address] [place] [address]Dr. Lawrence Tone MCH (RBC) [Entitic mass] 30.1 pg Normal 26.7-34.0 [facility] Comment on above: Performed By: #### C BC ####[facility] [address] [place], [place] [address]Dr. Lawrence Tone MCHC (RBC) [Mass/Vol] 33.8 g/dL Normal 29.9-35.2 [facility] Comment on above: Performed By: #### C BC ####[facility] [address] [place] [address]Dr. Laraantonio Wayne MCV (RBC) [Entitic vol] 89.2 fL Normal 81.0-99.0 [facility] Comment on above: Performed By: #### C BC ####[facility] [address] [place], [place] [address]Dr. Lawrence Tone MONO # 0.8 103/ul Normal 0.3-0.8 [facility] Comment on above: Performed By: #### C BC ####[facility] [address] [place], [place] [address]Dr. Laraantonio Wayne Monocytes/100 WBC (Bld) 9.3 % Normal 1.7-12.0 [facility] Comment on above: Performed By: #### C BC ####[facility] [address] [place], [place] [address]Dr. Lawrence Wayne NEUT # 4.6 103/ul Normal 1.4-6.5 [facility] Comment on above: Performed By: #### C BC ####[facility] [address] [place] [address]Dr. Lawrence Wayne Neutrophils/100 WBC (Bld) 55.5 % Normal 43.0-75.0 [facility] Comment on above: Performed By: #### C BC ####[facility] [address] [place] [address]Dr. Lawrence Wayne Platelet mean volume (Bld) [Entitic vol] 8.6 fL Critically low 9.5-13.5 [facility] Comment on above: Performed By: #### C BC ####[facility] [address] [place] [address]Dr. Lawrence Wayne PLT 380 103/ul Normal 150-450 [facility] Comment on above: Performed By: #### C BC ####[facility] [address] [place] [address]Dr. Lawrence Wayne RBC 5.11 106/ul Normal 4.20-5.40 [facility] Comment on above: Performed By: #### C BC ####[facility] [address] [place] [address]Dr. Lawrence Wayne WBC 8.3 103/ul Normal 4.0-11.0 [facility] Comment on above: Performed By: #### C BC ####[facility] [address] [place] [address]Dr. Lawrence Wayne FREE THYROXINE INDEX T7on FTI 3.28 Normal 1.30-4.50 [facility] Comment on above: Performed By: #### T SH, T7, ALIYAH, LIPA, CMP ####[facility] [address] [place] [address]Dr. Lawrence Wayne T3U 36.0 % Normal 30.0-39.0 [facility] Comment on above: Performed By: #### T SH, T7, ALIYAH, LIPA, CMP ####[facility] [address] [place] [address]Dr. Lawrence Wayne T4 [Mass/Vol] 9.10 ug/dL Normal 4.80-13.90 [facility] Comment on above: Performed By: #### T SH, T7, ALIYAH, LIPA, CMP ####[facility] [address] [place] [address]Dr. Lawrence Wayne LIPASEon 07-01-2022 Lipase [Catalytic activity/Vol] 125.0 U/L Normal 73.0-393.0 [facility] Comment on above: Performed By: #### T SH, T7, ALIYAH, LIPA, CMP ####[facility] [address] [place] [address]Dr. Lawrence Wayne PROF 14(COMP METB)on 023 Albumin [Mass/Vol] 3.8 g/dL Normal 3.4-5.0 [facility] Comment on above: Performed By: #### T SH, T7, ALIYAH, LIPA, CMP ####[facility] [address] [place] [address]Dr. Lawrence Wayne Albumin/Globulin [Mass ratio] 1.1 {ratio} Normal [facility] Comment on above: Performed By: #### T SH, T7, ALIYAH, LIPA, CMP ####[facility] [address] [place] [address]Dr. Lawrence Wayne ALP [Catalytic activity/Vol] 104 U/L Normal 46-116 [facility] Comment on above: Performed By: #### T SH, T7, ALIYAH, LIPA, CMP ####[facility] [address] [place] [address]Dr. Lawrence Wayne ALT [Catalytic activity/Vol] 36 U/L Normal 14-59 [facility] Comment on above: Performed By: #### T SH, T7, ALIYAH, LIPA, CMP ####[facility] [address] [place] [address]Dr. Lawrence Wayne Anion gap [Moles/Vol] 11.7 mmol/L Normal [facility] Comment on above: Performed By: #### T SH, T7, ALIYAH, LIPA, CMP ####[facility] [address] [place] [address]Dr. Lawrence Wayne AST [Catalytic activity/Vol] 22 U/L Normal 15-37 [facility] Comment on above: Performed By: #### T SH, T7, ALIYAH, LIPA, CMP ####[facility] [address] [place] [address]Dr. Lawrence Wayne Bilirubin [Mass/Vol] 0.5 mg/dL Normal 0.2-1.0 [facility] Comment on above: Performed By: #### T SH, T7, ALIYAH, LIPA, CMP ####[facility] [address] [place] [address]Dr. Lawrence Wayne Calcium [Mass/Vol] 9.8 mg/dL Normal 8.5-10.1 [facility] Comment on above: Performed By: #### T SH, T7, ALIYAH, LIPA, CMP ####[facility] [address] [place], [place] [address]Dr. Lawrence Wayne Chloride [Moles/Vol] 102 mmol/L Normal 98-107 [facility] Comment on above: Performed By: #### T SH, T7, ALIYAH, LIPA, CMP ####[facility] [address] [place], [place] [address]Dr. Lawrence Wayne CO2 [Moles/Vol] 29.3 mmol/L Normal 21.0-32.0 [facility] Comment on above: Performed By: #### T SH, T7, ALIYAH, LIPA, CMP ####[facility] [address] [place], [place] [address]Dr. Lawrence Wayne Creatinine [Mass/Vol] 0.88 mg/dL Normal 0.55-1.02 [facility] Comment on above: Performed By: #### T SH, T7, ALIYAH, LIPA, CMP ####[facility] [address] [place] [address]Dr. Lawrence Wayne EGFR-AF GREEK >60 Normal >=60 [facility] Comment on above: Performed By: #### T SH, T7, ALIYAH, LIPA, CMP ####[facility] [address] [place] [address]Dr. Lawrence Wayne EGFR-NON AF GREEK >60 Normal >=60 [facility] Comment on above: Performed By: #### T SH, T7, ALIYAH, LIPA, CMP ####[facility] [address] [place] [address]Dr. Lawrence Wayne Globulin (S) [Mass/Vol] 3.5 g/dL Normal [facility] Comment on above: Performed By: #### T SH, T7, ALIYAH, LIPA, CMP ####[facility] [address] [place] [address]Dr. Lawrence Wayne Glucose [Mass/Vol] 98 mg/dL Normal 74-106 [facility] Comment on above: Performed By: #### T SH, T7, ALIYAH, LIPA, CMP ####[facility] [address] [place] [address]Dr. Lawrence Wayne Potassium [Moles/Vol] 3.9 mmol/L Normal 3.5-5.1 [facility] Comment on above: Performed By: #### T SH, T7, ALIYAH, LIPA, CMP ####[facility] [address] [place] [address]Dr. Lawrence Wayne Protein [Mass/Vol] 7.3 g/dL Normal 6.4-8.2 [facility] Comment on above: Performed By: #### T SH, T7, ALIYAH, LIPA, CMP ####[facility] [address] [place] [address]Dr. Laralan Wayne Sodium [Moles/Vol] 139 mmol/L Normal 136-145 [facility] Comment on above: Performed By: #### T SH, T7, ALIYAH, LIPA, CMP ####[facility] [address] [place] [address]Dr. Lawrence Wayne Urea nitrogen [Mass/Vol] 11.0 mg/dL Normal 7.0-18.0 [facility] Comment on above: Performed By: #### T SH, T7, ALIYAH, LIPA, CMP ####[facility] [address] [place] [address]Dr. Lawrence Wayne Urea nitrogen/Creatinine [Mass ratio] 12.5 mg/mg Normal [facility] Comment on above: Performed By: #### T SH, T7, ALIYAH, LIPA, CMP ####[facility] [address] [place] [address]DrKim Wayne TSHon 07-01-2022 TSH 1.744 uIU/mL Normal 0.358-3.740 [facility] Comment on above: Performed By: #### T SH, T7, ALIYAH, LIPA, CMP ####[facility] [address] [place] [address]DrKim Wayne CBC AUTO DIFFon 06-17-2022 BASO # 0.0 103/ul Normal 0.0-0.1 [facility] Comment on above: Performed By: #### A MY, CMP, LIPA #### [facility] [address] [place] [address] [address] Lawrence Wayne Basophils/100 WBC (Bld) 0.4 % Normal 0.2-2.0 [facility] Comment on above: Performed By: #### A MY, CMP, LIPA #### [facility] [address] [address] [address] Lawrence Wayne EO # 0.0 103/ul Normal 0.0-0.7 [facility] Comment on above: Performed By: #### A MY, CMP, LIPA #### [facility] [address] [address] [address] Lawrence Wayne Eosinophils/100 WBC (Bld) 0.8 % Critically low 0.9-7.0 [facility] Comment on above: Performed By: #### A MY, CMP, LIPA #### [facility] [address] [address] [address] Lawrence Wayne Erythrocyte distribution width (RBC) [Ratio] 13.2 % Normal 11.0-15.0 [facility] Comment on above: Performed By: #### A MY, CMP, LIPA #### [facility] [address] [address] [address] Lawrence Wayne Hematocrit (Bld) [Volume fraction] 43.1 % Normal 36.0-48.0 [facility] Comment on above: Performed By: #### A MY, CMP, LIPA #### [facility] [address] [place] [address] Dr. Lawrence Wayne Hemoglobin (Bld) [Mass/Vol] 15.1 g/dL Normal 12.0-16.0 [facility] Comment on above: Performed By: #### A MY, CMP, LIPA #### [facility] [address] [place] [address] Dr. Lawrence Wayne IG # 0.03 10e3/ul Normal 0.00-0.03 [facility] Comment on above: Performed By: #### A MY, CMP, LIPA #### [facility] [address] [place] [address] Dr. Lawrence Wayne IG % 0.6 % Critically high 0.0-0.[address] [facility] Comment on above: Performed By: #### A MY, CMP, LIPA #### [facility] [address] [place] [address] Dr. Lawrence Wayne LYMPH # 1.1 103/ul Critically low 1.2-3.8 [facility] Comment on above: Performed By: #### A MY, CMP, LIPA #### [facility] [address] [place] [address] Dr. Lawrenec Wayne Lymphocytes/100 WBC (Bld) 22.0 % Normal 20.5-60.0 [facility] Comment on above: Performed By: #### A MY, CMP, LIPA #### [facility] [address] [place] [address] Dr. Lawrence Wayne MANUAL DIFF REQ NO Normal [facility] Comment on above: Performed By: #### A MY, CMP, LIPA #### [facility] [address] [place] [address] Dr. Lawrence Wayne MCH (RBC) [Entitic mass] 30.3 pg Normal 26.7-34.0 [facility] Comment on above: Performed By: #### A MY, CMP, LIPA #### [facility] [address] [place] [address] Dr. Lawrence Wayne MCHC (RBC) [Mass/Vol] 35.0 g/dL Normal 29.9-35.2 [facility] Comment on above: Performed By: #### A MY, CMP, LIPA #### [facility] [address] [place] [address] Dr. Lawrence Wayne MCV (RBC) [Entitic vol] 86.4 fL Normal 81.0-99.0 [facility] Comment on above: Performed By: #### A MY, CMP, LIPA #### [facility] [address] [place] [address] Dr. Lawrence Wayne MONO # 0.7 103/ul Normal 0.3-0.8 [facility] Comment on above: Performed By: #### A MY, CMP, LIPA #### [facility] [address] [place] [address] Dr. Lawrence Wayne Monocytes/100 WBC (Bld) 13.6 % Critically high 1.7-12.0 [facility] Comment on above: Performed By: #### A MY, CMP, LIPA #### [facility] [address] [place] [address] Dr. Lawrence Wayne NEUT # 3.2 103/ul Normal 1.4-6.5 [facility] Comment on above: Performed By: #### A MY, CMP, LIPA #### [facility] [address] [place] [address] Dr. Lawrence Wayne Neutrophils/100 WBC (Bld) 62.6 % Normal 43.0-75.0 [facility] Comment on above: Performed By: #### A MY, CMP, LIPA #### [facility] [address] [place] [address] Dr. Lawrence Wayne Platelet mean volume (Bld) [Entitic vol] 9.0 fL Critically low 9.5-13.5 [facility] Comment on above: Performed By: #### A MY, CMP, LIPA #### [facility] [address] [place] [address] Dr. Lawrence Wayne PLT 257 103/ul Normal 150-450 The [facility] Comment on above: Performed By: #### A MY, CMP, LIPA #### [facility] [address] [place] [address] Dr. Lawrence Wayne RBC 4.99 106/ul Normal 4.20-5.40 [facility] Comment on above: Performed By: #### A MY, CMP, LIPA #### [facility] [address] [place] [address] Dr. Lawrence Wayne WBC 5.1 103/ul Normal 4.0-11.0 [facility] Comment on above: Performed By: #### A MY, CMP, LIPA #### [facility] [address] [place] [address] Dr. Lawrence Wayne INFLUENZA A AND B AGon 06-17 [facility] SEE BELOW Normal [facility] Comment on above: Result Comment: Nega tive for Flu B protein antigen. Infection due to Flu B cannot be ruled out. Flu B antigen in the sample may be below the detection limit of the test. Performed By: #### A MY, CMP, LIPA #### [facility] [address] [place] [address] Dr. Lawrence Wayne INFLUENZA A AG Positive Abnormal NEGATIVE SEE COMMENT [facility] Comment on above: Performed By: #### A MY, CMP, LIPA #### [facility] [address] [place] [address] Dr. Lawrence Wayne INFLUENZA B AG Negative Normal NEGATIVE SEE COMMENT [facility] Comment on above: Performed By: #### A MY, CMP, LIPA #### [facility] [address] [place] [address] Dr. Lawrence Wayne PROF 14(COMP METB)on 023 Albumin [Mass/Vol] 3.4 g/dL Normal 3.4-5.0 [facility] Comment on above: Performed By: #### A MY, CMP, LIPA #### [facility] [address] [place] [address] Dr. Lawrence Wayne Albumin/Globulin [Mass ratio] 0.9 {ratio} Normal [facility] Comment on above: Performed By: #### A MY, CMP, LIPA #### [facility] [address] [address] [address] Lawrence Wayne ALP [Catalytic activity/Vol] 94 U/L Normal 46-116 [facility] Comment on above: Performed By: #### A MY, CMP, LIPA #### [facility] [address] [address] [address] Lawrence Wayne ALT [Catalytic activity/Vol] 36 U/L Normal 14-59 [facility] Comment on above: Performed By: #### A MY, CMP, LIPA #### [facility] [address] [address] [address] Lawrence Wayne Anion gap [Moles/Vol] 18.9 mmol/L Normal [facility] Comment on above: Performed By: #### A MY, CMP, LIPA #### [facility] [address] [address] [address] Lawrence Wayne AST [Catalytic activity/Vol] 32 U/L Normal 15-37 [facility] Comment on above: Performed By: #### A MY, CMP, LIPA #### [facility] [address] [address] [address] Lawrence Wayne Bilirubin [Mass/Vol] 0.4 mg/dL Normal 0.2-1.0 [facility] Comment on above: Performed By: #### A MY, CMP, LIPA #### [facility] [address] [place] [address] Dr. Lawrence Wayne Calcium [Mass/Vol] 9.1 mg/dL Normal 8.5-10.1 [facility] Comment on above: Performed By: #### A MY, CMP, LIPA #### [facility] [address] [place] [address] Dr. Lawrence Wayne Chloride [Moles/Vol] 100 mmol/L Normal 98-107 [facility] Comment on above: Performed By: #### A MY, CMP, LIPA #### [facility] [address] [address] [address] Lawrence Wayne CO2 [Moles/Vol] 19.7 mmol/L Critically low 21.0-32.0 [facility] Comment on above: Performed By: #### A MY, CMP, LIPA #### [facility] [address] [address] [address] Lawrence Wayne Creatinine [Mass/Vol] 1.13 mg/dL Critically high 0.55-1.02 [facility] Comment on above: Performed By: #### A MY, CMP, LIPA #### [facility] [address] [address] [address] Lawrence Wayne EGFR-AF GREEK 58 mL/min/1.73m2 Critically low >=60 [facility] Comment on above: Performed By: #### A MY, CMP, LIPA #### [facility] [address] [address] [address] Lawrence Wayne EGFR-NON AF GREEK 48 mL/min/1.73m2 Critically low >=60 [facility] Comment on above: Performed By: #### A MY, CMP, LIPA #### [facility] [address] [address] [address] Lawrence Wayne Globulin (S) [Mass/Vol] 3.9 g/dL Normal [facility] Comment on above: Performed By: #### A MY, CMP, LIPA #### [facility] [address] [address] [address] Lawrence Wayne Glucose [Mass/Vol] 105 mg/dL Normal 74-106 [facility] Comment on above: Performed By: #### A MY, CMP, LIPA #### [facility] [address] [address] [address] Lawrence Wayne Potassium [Moles/Vol] 3.6 mmol/L Normal 3.5-5.1 [facility] Comment on above: Performed By: #### A MY, CMP, LIPA #### [facility] [address] [address] [address] Lawrence Wayne Protein [Mass/Vol] 7.3 g/dL Normal 6.4-8.2 [facility] Comment on above: Performed By: #### A MY, CMP, LIPA #### [facility] [address] [address] [address] Lawrence Wayne Sodium [Moles/Vol] 135 mmol/L Critically low 136-145 [facility] Comment on above: Performed By: #### A MY, CMP, LIPA #### [facility] [address] [address] [address] Lawrence Wayne Urea nitrogen [Mass/Vol] 13.0 mg/dL Normal 7.0-18.0 [facility] Comment on above: Performed By: #### A MY, CMP, LIPA #### [facility] [address] [place] [address] Dr. Lawrence Wayne Urea nitrogen/Creatinine [Mass ratio] 11.5 mg/mg Normal [facility] Comment on above: Performed By: #### A MY, CMP, LIPA #### [facility] [address] [place] [address] Dr. Lawrence Wayne MRI CSPINE WO CONon [...] TYRELL MOREJON Date: 2022-05-20 10:26 Normal [facility] AMYLASEon 05-07-2022 Amylase [Catalytic activity/Vol] 81 U/L Normal 25-115 [facility] Comment on above: Performed By: #### A MY, CMP, LIPA #### [facility] [address] [place] [address] Dr. Lawrence Wayne CBC AUTO DIFFon 05-07-2022 BASO # 0.0 103/ul Normal 0.0-0.1 [facility] Comment on above: Performed By: #### A MY, CMP, LIPA #### [facility] [address] [place] [address] Dr. Lawrence Wayne Basophils/100 WBC (Bld) 0.8 % Normal 0.2-2.0 [facility] Comment on above: Performed By: #### A MY, CMP, LIPA #### [facility] [address] [place] [address] Dr. Lawrence Wayne EO # 0.1 103/ul Normal 0.0-0.7 [facility] Comment on above: Performed By: #### A MY, CMP, LIPA #### [facility] [address] [address] [address] Lawrence Wayne Eosinophils/100 WBC (Bld) 1.5 % Normal 0.9-7.0 [facility] Comment on above: Performed By: #### A MY, CMP, LIPA #### [facility] [address] [place] [address] Dr. Lawrence Wayne Erythrocyte distribution width (RBC) [Ratio] 12.7 % Normal 11.0-15.0 [facility] Comment on above: Performed By: #### A MY, CMP, LIPA #### [facility] [address] [place] [address] Dr. Lawrence Wayne Hematocrit (Bld) [Volume fraction] 40.5 % Normal 36.0-48.0 [facility] Comment on above: Performed By: #### A MY, CMP, LIPA #### [facility] [address] [place] [address] Dr. Lawrence Wayne Hemoglobin (Bld) [Mass/Vol] 13.8 g/dL Normal 12.0-16.0 [facility] Comment on above: Performed By: #### A MY, CMP, LIPA #### [facility] [address] [place] [address] Dr. Lawrence Wayne IG # 0.01 10e3/ul Normal 0.00-0.03 [facility] Comment on above: Performed By: #### A MY, CMP, LIPA #### [facility] [address] [place] [address] Dr. Lawrence Wayne IG % 0.2 % Normal 0.0-0.5 [facility] Comment on above: Performed By: #### A MY, CMP, LIPA #### [facility] [address] [place] [address] Dr. Lawrence Wayne LYMPH # 1.7 103/ul Normal 1.2-3.8 [facility] Comment on above: Performed By: #### A MY, CMP, LIPA #### [facility] [address] [place] [address] Dr. Lawrence Wayne Lymphocytes/100 WBC (Bld) 32.7 % Normal 20.5-60.0 [facility] Comment on above: Performed By: #### A MY, CMP, LIPA #### [facility] [address] [place] [address] Dr. Lawrence Wayne MANUAL DIFF REQ NO Normal [facility] Comment on above: Performed By: #### A MY, CMP, LIPA #### [facility] [address] [place] [address] Dr. Lawrence Wayne MCH (RBC) [Entitic mass] 30.5 pg Normal 26.7-34.0 [facility] Comment on above: Performed By: #### A MY, CMP, LIPA #### [facility] [address] [place] [address] Dr. Lawrence Wayne MCHC (RBC) [Mass/Vol] 34.1 g/dL Normal 29.9-35.2 [facility] Comment on above: Performed By: #### A MY, CMP, LIPA #### [facility] [address] [place] [address] Dr. Lawrence Wayne MCV (RBC) [Entitic vol] 89.4 fL Normal 81.0-99.0 [facility] Comment on above: Performed By: #### A MY, CMP, LIPA #### [facility] [address] [place] [address] Dr. Lawrence Wayne MONO # 0.6 103/ul Normal 0.3-0.8 [facility] Comment on above: Performed By: #### A MY, CMP, LIPA #### [facility] [address] [place] [address] Dr. Lawrence Wayne Monocytes/100 WBC (Bld) 10.5 % Normal 1.7-12.0 [facility] Comment on above: Performed By: #### A MY, CMP, LIPA #### [facility] [address] [place] [address] Dr. Lawrence Wayne NEUT # 2.9 103/ul Normal 1.4-6.5 [facility] Comment on above: Performed By: #### A MY, CMP, LIPA #### [facility] [address] [place] [address] Dr. Lawrence Wayne Neutrophils/100 WBC (Bld) 54.3 % Normal 43.0-75.0 [facility] Comment on above: Performed By: #### A MY, CMP, LIPA #### [facility] [address] [place] [address] Dr. Lawrence Wayne Platelet mean volume (Bld) [Entitic vol] 9.4 fL Critically low 9.5-13.5 [facility] Comment on above: Performed By: #### A MY, CMP, LIPA #### [facility] [address] [place], [place] [id number] Dr. Lawrence Wayne PLT 292 103/ul Normal 150-450 [facility] Comment on above: Performed By: #### A MY, CMP, LIPA #### [facility] [address] [address] [address] Lawrence Wayne RBC 4.53 106/ul Normal 4.20-5.40 [facility] Comment on above: Performed By: #### A MY, CMP, LIPA #### [facility] [address] [place] [address] Dr. Lawrence Wayne WBC 5.3 103/ul Normal 4.0-11.0 [facility] Comment on above: Performed By: #### A MY, CMP, LIPA #### [facility] [address] [place] [address] Dr. Lawrence Wayne LIPASEon 05-07-2022 Lipase [Catalytic activity/Vol] 86.0 U/L Normal 73.0-393.0 [facility] Comment on above: Performed By: #### A MY, CMP, LIPA #### [facility] [address] [place] [address] Dr. Lawrence Wayne PROF 14(COMP METB)on 022 Albumin [Mass/Vol] 3.7 g/dL Normal 3.4-5.0 [facility] Comment on above: Performed By: #### A MY, CMP, LIPA #### [facility] [address] [place] [address] Dr. Lawrence Wayne Albumin/Globulin [Mass ratio] 1.1 {ratio} Normal [facility] Comment on above: Performed By: #### A MY, CMP, LIPA #### [facility] [address] [place] [address] Dr. Lawrence Wayne ALP [Catalytic activity/Vol] 96 U/L Normal 46-116 [facility] Comment on above: Performed By: #### A MY, CMP, LIPA #### [facility] [address] [place] [address] Dr. Lawrence Wayne ALT [Catalytic activity/Vol] 24 U/L Normal 14-59 [facility] Comment on above: Performed By: #### A MY, CMP, LIPA #### [facility] [address] [address] [address] Lawrence Wayne Anion gap [Moles/Vol] 8.3 mmol/L Normal [facility] Comment on above: Performed By: #### A MY, CMP, LIPA #### [facility] [address] [address] [address] Lawrence Wayne AST [Catalytic activity/Vol] 19 U/L Normal 15-37 [facility] Comment on above: Performed By: #### A MY, CMP, LIPA #### [facility] [address] [address] [address] Lawrence Wayne Bilirubin [Mass/Vol] 0.2 mg/dL Normal 0.2-1.0 [facility] Comment on above: Performed By: #### A MY, CMP, LIPA #### [facility] [address] [address] [address] Lawrence Wayne Calcium [Mass/Vol] 9.1 mg/dL Normal 8.5-10.1 [facility] Comment on above: Performed By: #### A MY, CMP, LIPA #### [facility] [address] [place] [address] Dr. Lawrence Wayne Chloride [Moles/Vol] 103 mmol/L Normal 98-107 [facility] Comment on above: Performed By: #### A MY, CMP, LIPA #### [facility] [address] [address] [address] Lawrence Wayne CO2 [Moles/Vol] 30.6 mmol/L Normal 21.0-32.0 [facility] Comment on above: Performed By: #### A MY, CMP, LIPA #### [facility] [address] [place] [address] Dr. Lawrence Wayne Creatinine [Mass/Vol] 0.88 mg/dL Normal 0.55-1.02 [facility] Comment on above: Performed By: #### A MY, CMP, LIPA #### [facility] [address] [place] [address] Dr. Lawrence Wayne EGFR-AF GREEK >60 Normal >=60 [facility] Comment on above: Performed By: #### A MY, CMP, LIPA #### [facility] [address] [address] [address] Lawrence Wayne EGFR-NON AF GREEK >60 Normal >=60 [facility] Comment on above: Performed By: #### A MY, CMP, LIPA #### [facility] [address] [address] [address] Lawrence Wayne Globulin (S) [Mass/Vol] 3.4 g/dL Normal [facility] Comment on above: Performed By: #### A MY, CMP, LIPA #### [facility] [address] [place] [address] Dr. Lawrence Wayne Glucose [Mass/Vol] 94 mg/dL Normal 74-106 [facility] Comment on above: Performed By: #### A MY, CMP, LIPA #### [facility] [address] [place] [address] Dr. Lawrence Wayne Potassium [Moles/Vol] 3.9 mmol/L Normal 3.5-5.1 [facility] Comment on above: Performed By: #### A MY, CMP, LIPA #### [facility] [address] [place] [address] Dr. Lawrence Wayne Protein [Mass/Vol] 7.1 g/dL Normal 6.4-8.2 [facility] Comment on above: Performed By: #### A MY, CMP, LIPA #### [facility] [address] [place] [address] Dr. Lawrence Wayne Sodium [Moles/Vol] 138 mmol/L Normal 136-145 [facility] Comment on above: Performed By: #### A MY, CMP, LIPA #### [facility] [address] [place] [address] Dr. Lawrence Wayne Urea nitrogen [Mass/Vol] 10.0 mg/dL Normal 7.0-18.0 [facility] Comment on above: Performed By: #### A MY, CMP, LIPA #### [facility] [address] [address] [address] Lawrence Wayne Urea nitrogen/Creatinine [Mass ratio] 11.4 mg/mg Normal [facility] Comment on above: Performed By: #### A MY, CMP, LIPA #### [facility] [address] [place], [place] [address] Dr. Lawrence Wayne MG MAMM SCREEN 3D QING CADon 03-26-2022 MG MAMM SCREEN 3D QING CAD Patient: SKIP HONG. Exam Date: 03/26/2022 : 1955 Gender:F Ordering : DR RADHA LYMAN . Admission #: [id number] Family : Order #: [id number] CLICK HERE TO VIEW EXAM RADIOLOGY REPORT [...] breast cancer at age 30. LOCATION: [facility] BREAST COMPOSITION: Heterogeneously dense,which may obscure [...] MD on 03/26/2022 at 09:53 Normal [facility] NM STRESS/REST MULTIon 03-24 NM STRESS/REST MULTI Patient: MANISHA HONG. Exam Date: 03/24/2022 : 1955 Gender:F Ordering : DR ANITHA MCGREGOR . Admission #: [id number] Family : Order #: [id number] CLICK HERE TO VIEW EXAM RADIOLOGY REPORT [...] MD on 03/25/2022 at 07:15 Normal [facility] T4, T3U, FTI LABCORPon 02-19 Free Thyroxine Index 2.3 Normal 1.2-4.9 [facility] Comment on above: Performed By: #### A MY, CMP, LIPA #### [facility] [address] [address] [address] Lawrence Wayne T3 Uptake 28 % Normal 24-39 [facility] Comment on above: Performed By: #### A MY, CMP, LIPA #### [facility] [address] [address] [address] Lawrence Wayne T4 [Mass/Vol] 8.3 ug/dL Normal 4.5-12.0 [facility] Comment on above: Performed By: #### A MY, CMP, LIPA #### [facility] [address] [address] [address] Lawrence Wayne BNPon 02-18-2022 Natriuretic peptide B (Bld) [Mass/Vol] 78.0 pg/mL Normal <=900.0 [facility] Comment on above: Performed By: #### A MY, CMP, LIPA #### [facility] [address] [address] [address] Lawrence Wayne CBC AUTO DIFFon 02-18-2022 BASO # 0.1 103/ul Normal 0.0-0.1 [facility] Comment on above: Performed By: #### C BC ####[facility] [address] [address]DrKim Wayne Basophils/100 WBC (Bld) 0.9 % Normal 0.2-2.0 [facility] Comment on above: Performed By: #### C BC ####[facility] [address] [place], [place] [address]DrKim Wayne EO # 0.1 103/ul Normal 0.0-0.7 [facility] Comment on above: Performed By: #### C BC ####[facility] [address] [place], [place] [address]DrKim Wayne Eosinophils/100 WBC (Bld) 1.1 % Normal 0.9-7.0 [facility] Comment on above: Performed By: #### C BC ####[facility] [address] [place], [place] [address]DrKmi Wayne Erythrocyte distribution width (RBC) [Ratio] 12.6 % Normal 11.0-15.0 [facility] Comment on above: Performed By: #### C BC ####[facility] [address] [place], [place] [address]DrKim Wayne Hematocrit (Bld) [Volume fraction] 44.4 % Normal 36.0-48.0 [facility] Comment on above: Performed By: #### C BC ####[facility] [address] [place], [place] [address]DrKim Wayne Hemoglobin (Bld) [Mass/Vol] 14.7 g/dL Normal 12.0-16.0 [facility] Comment on above: Performed By: #### C BC ####[facility] [address] [address]Dr. Laraantonio Wayne IG # 0.02 10e3/ul Normal 0.00-0.03 [facility] Comment on above: Performed By: #### C BC ####[facility] [address] [address]Dr. Lawrence Wayne IG % 0.3 % Normal 0.0-0.5 [facility] Comment on above: Performed By: #### C BC ####[facility] [address] [place], [place] [address]DrKim Wayne LYMPH # 1.8 103/ul Normal 1.2-3.8 [facility] Comment on above: Performed By: #### C BC ####[facility] [address] [place], [place] [address]Dr. Lawrence Wayne Lymphocytes/100 WBC (Bld) 26.1 % Normal 20.5-60.0 [facility] Comment on above: Performed By: #### C BC ####[facility] [address] [place], [place] [address]DrKim Laraantonio Wayne MANUAL DIFF REQ NO Normal [facility] Comment on above: Performed By: #### C BC ####[facility] [address] [place], [place] [address]Dr. Lawrence Wayne MCH (RBC) [Entitic mass] 30.2 pg Normal 26.7-34.0 [facility] Comment on above: Performed By: #### C BC ####[facility] [address] [place], [place] [address]DrKim Wayne MCHC (RBC) [Mass/Vol] 33.1 g/dL Normal 29.9-35.2 [facility] Comment on above: Performed By: #### C BC ####[facility] [address] [place], [place] [address]Dr. Lawrence Wayne MCV (RBC) [Entitic vol] 91.4 fL Normal 81.0-99.0 [facility] Comment on above: Performed By: #### C BC ####[facility] [address] [address]DrKim Bermudezantonio Tone MONO # 0.8 103/ul Normal 0.3-0.8 [facility] Comment on above: Performed By: #### C BC ####[facility] [address] [address]DrKim Wayne Monocytes/100 WBC (Bld) 11.0 % Normal 1.7-12.0 [facility] Comment on above: Performed By: #### C BC ####[facility] [address] [place], [place] [address]DrKim Wayne NEUT # 4.2 103/ul Normal 1.4-6.5 [facility] Comment on above: Performed By: #### C BC ####[facility] [address] [place], [place] [address]DrKim Wayne Neutrophils/100 WBC (Bld) 60.6 % Normal 43.0-75.0 [facility] Comment on above: Performed By: #### C BC ####[facility] [address] [place], [place] [address]DrKim Wayne Platelet mean volume (Bld) [Entitic vol] 9.2 fL Critically low 9.5-13.5 [facility] Comment on above: Performed By: #### C BC ####[facility] [address] [place], [place] [address]Dr. Lawrence Wayne PLT 322 103/ul Normal 150-450 [facility] Comment on above: Performed By: #### C BC ####[facility] [address] [place], [place] [address]DrKim Wayne RBC 4.86 106/ul Normal 4.20-5.40 [facility] Comment on above: Performed By: #### C BC ####[facility] [address] [place], [place] [address]DrKim Wayne WBC 7.0 103/ul Normal 4.0-11.0 [facility] Comment on above: Performed By: #### C BC ####[facility] [address] [address]Dr. Lawrence Wayne IRONon 02-18-2022 Iron [Mass/Vol] 89.0 ug/dL Normal 50.0-170.[address] [facility] Comment on above: Performed By: #### A MY, CMP, LIPA #### [facility] [address] [address] [address] Lawrence Wayne PROF 14(COMP METB)on 022 Albumin [Mass/Vol] 4.0 g/dL Normal 3.4-5.0 [facility] Comment on above: Performed By: #### A MY, CMP, LIPA #### [facility] [address] [address] [address] Lawrence Wayne Albumin/Globulin [Mass ratio] 1.1 {ratio} Normal [facility] Comment on above: Performed By: #### A MY, CMP, LIPA #### [facility] [address] [address] [address] Lawrence Wayne ALP [Catalytic activity/Vol] 98 U/L Normal 46-116 [facility] Comment on above: Performed By: #### A MY, CMP, LIPA #### [facility] [address] [address] [address] Lawrence Wayne ALT [Catalytic activity/Vol] 23 U/L Normal 14-59 [facility] Comment on above: Performed By: #### A MY, CMP, LIPA #### [facility] [address] [address] [address] Lawrence Wayne Anion gap [Moles/Vol] 4.9 mmol/L Normal [facility] Comment on above: Performed By: #### A MY, CMP, LIPA #### [facility] [address] [address] [address] Lawrence Wayne AST [Catalytic activity/Vol] 19 U/L Normal 15-37 [facility] Comment on above: Performed By: #### A MY, CMP, LIPA #### [facility] [address] [address] [address] Lawrence Wayne Bilirubin [Mass/Vol] 0.4 mg/dL Normal 0.2-1.0 [facility] Comment on above: Performed By: #### A MY, CMP, LIPA #### [facility] [address] [address] [address] Lawrence Wayne Calcium [Mass/Vol] 9.5 mg/dL Normal 8.5-10.1 [facility] Comment on above: Performed By: #### A MY, CMP, LIPA #### [facility] [address] [address] [address] Lawrence Wayne Chloride [Moles/Vol] 102 mmol/L Normal 98-107 [facility] Comment on above: Performed By: #### A MY, CMP, LIPA #### [facility] [address] [place] [address] Dr. Lawrence Wayne CO2 [Moles/Vol] 30.1 mmol/L Normal 21.0-32.0 [facility] Comment on above: Performed By: #### A MY, CMP, LIPA #### [facility] [address] [address] [address] Lawrence Wayne Creatinine [Mass/Vol] 0.99 mg/dL Normal 0.55-1.02 [facility] Comment on above: Performed By: #### A MY, CMP, LIPA #### [facility] [address] [address] [address] Lawrence Wayne EGFR-AF GREEK >60 Normal >=60 [facility] Comment on above: Performed By: #### A MY, CMP, LIPA #### [facility] [address] [address] [address] Lawrence Wayne EGFR-NON AF GREEK 56 mL/min/1.73m2 Critically low >=60 [facility] Comment on above: Performed By: #### A MY, CMP, LIPA #### [facility] [address] [address] [address] Lawrence Wayne Globulin (S) [Mass/Vol] 3.5 g/dL Normal [facility] Comment on above: Performed By: #### A MY, CMP, LIPA #### [facility] [address] [address] [address] Lawrence Wayne Glucose [Mass/Vol] 100 mg/dL Normal 74-106 [facility] Comment on above: Performed By: #### A MY, CMP, LIPA #### [facility] [address] [address] [address] Lawrence Wayne Potassium [Moles/Vol] 4.0 mmol/L Normal 3.5-5.1 [facility] Comment on above: Performed By: #### A MY, CMP, LIPA #### [facility] [address] [place] [address] Dr. Lawrence Wayne Protein [Mass/Vol] 7.5 g/dL Normal 6.4-8.2 The [facility] Comment on above: Performed By: #### A MY, CMP, LIPA #### [facility] [address] [address] [address] Lawrence Wayne Sodium [Moles/Vol] 133 mmol/L Critically low 136-145 [facility] Comment on above: Performed By: #### A MY, CMP, LIPA #### [facility] [address] [place] [address] Dr. Lawrence Wayne Urea nitrogen [Mass/Vol] 14.0 mg/dL Normal 7.0-18.0 [facility] Comment on above: Performed By: #### A MY, CMP, LIPA #### [facility] [address] [place] [address] Dr. Lawrence Wayne Urea nitrogen/Creatinine [Mass ratio] 14.1 mg/mg Normal [facility] Comment on above: Performed By: #### A MY, CMP, LIPA #### [facility] [address] [place] [address] Dr. Lawrence Wayne TSHon 02-18-2022 TSH 1.273 uIU/mL Normal 0.358-3.740 [facility] Comment on above: Performed By: #### A MY, CMP, LIPA #### [facility] [address] [place] [address] Dr. Lawrence Wayne AMMONIAon 02-07-2022 Ammonia (P) [Mass/Vol] ug/dL Critically low 11-32 [facility] Comment on above: Performed By: #### A MM ####[facility] [address] [address]Dr. Lawrence Wayne AMYLASEon 02-07-2022 Amylase [Catalytic activity/Vol] 88 U/L Normal 25-115 [facility] Comment on above: Performed By: #### A MY, CMP, LIPA #### [facility] [address] [place] [address] Dr. Lawrence Wayne BNPon 02-07-2022 Natriuretic peptide B (Bld) [Mass/Vol] 236.0 pg/mL Normal <=900.0 [facility] Comment on above: Performed By: #### A MY, CMP, LIPA #### [facility] [address] [place] [address] Dr. Lawrence Wayne CBC AUTO DIFFon 02-07-2022 BASO # 0.0 103/ul Normal 0.0-0.1 [facility] Comment on above: Performed By: #### C BC ####[facility] [address] [place], [place] [address]DrKim Wayne Basophils/100 WBC (Bld) 0.7 % Normal 0.2-2.0 [facility] Comment on above: Performed By: #### C BC ####[facility] [address] [place], [place] [address]DrKim Wayne EO # 0.1 103/ul Normal 0.0-0.7 [facility] Comment on above: Performed By: #### C BC ####[facility] [address] [address]DrKim Wayne Eosinophils/100 WBC (Bld) 1.3 % Normal 0.9-7.0 [facility] Comment on above: Performed By: #### C BC ####[facility] [address] [place], [place] [address]DrKim Wayne Erythrocyte distribution width (RBC) [Ratio] 12.7 % Normal 11.0-15.0 [facility] Comment on above: Performed By: #### C BC ####[facility] [address] [address]Dr. Laraantonio Wayne Hematocrit (Bld) [Volume fraction] 38.7 % Normal 36.0-48.0 [facility] Comment on above: Performed By: #### C BC ####[facility] [address] [place], [place] [address]Dr. Lawrence Wayne Hemoglobin (Bld) [Mass/Vol] 12.4 g/dL Normal 12.0-16.0 [facility] Comment on above: Result Comment: RECE IVING BOLUS AND SALINE Performed By: #### C BC ####[facility] [address] [place], [place] [address]Dr. Lawrence Wayne IG # 0.01 10e3/ul Normal 0.00-0.03 [facility] Comment on above: Performed By: #### C BC ####[facility] [address] [place], [place] [address]Dr. Lawrence Wayne IG % 0.2 % Normal 0.0-0.5 [facility] Comment on above: Performed By: #### C BC ####[facility] [address] [place], [place] [address]Dr. Lawrence Wayne LYMPH # 1.9 103/ul Normal 1.2-3.8 [facility] Comment on above: Performed By: #### C BC ####[facility] [address] [place], [place] [address]Dr. Lawrence Wayne Lymphocytes/100 WBC (Bld) 35.0 % Normal 20.5-60.0 [facility] Comment on above: Performed By: #### C BC ####[facility] [address] [place], [place] [address]DrKim Wayne MANUAL DIFF REQ NO Normal The [facility] Comment on above: Performed By: #### C BC ####[facility] [address] [place], [place] [address]Dr. Lawrence Wayne MCH (RBC) [Entitic mass] 30.2 pg Normal 26.7-34.0 [facility] Comment on above: Performed By: #### C BC ####[facility] [address] [place], [place] [address]Dr. Lawrence Wayne MCHC (RBC) [Mass/Vol] 32.0 g/dL Normal 29.9-35.2 [facility] Comment on above: Performed By: #### C BC ####[facility] [address] [place], [place] [address]Dr. Lawrence Tone MCV (RBC) [Entitic vol] 94.2 fL Normal 81.0-99.0 [facility] Comment on above: Performed By: #### C BC ####[facility] [address] [place], [place] [address]Dr. Lawrence Wayne MONO # 0.6 103/ul Normal 0.3-0.8 [facility] Comment on above: Performed By: #### C BC ####[facility] [address] [place], [place] [address]Dr. Lawrence Wayne Monocytes/100 WBC (Bld) 10.7 % Normal 1.7-12.0 [facility] Comment on above: Performed By: #### C BC ####[facility] [address] [place], [place] [address]Dr. Laraantonio Tone NEUT # 2.9 103/ul Normal 1.4-6.5 [facility] Comment on above: Performed By: #### C BC ####[facility] [address] [place], [place] [address]Dr. Lawrence Wayne Neutrophils/100 WBC (Bld) 52.1 % Normal 43.0-75.0 [facility] Comment on above: Performed By: #### C BC ####[facility] [address] [place], [place] [address]Dr. Lawrence Wayne Platelet mean volume (Bld) [Entitic vol] 9.5 fL Normal 9.5-13.5 [facility] Comment on above: Performed By: #### C BC ####[facility] [address] [place] [address] Lawrence Wayne PLT 260 103/ul Normal 150-450 [facility] Comment on above: Performed By: #### C BC ####[facility] [address] [id number]. Lawrence Wayne RBC 4.11 106/ul Critically low 4.20-5.40 [facility] Comment on above: Performed By: #### C BC ####[facility] [address] [id number]. Lawrence Wayne WBC 5.5 103/ul Normal 4.0-11.0 [facility] Comment on above: Performed By: #### C BC ####[facility] [address] [address]DrKim Wayne PROF 14(COMP METB)on 022 Albumin [Mass/Vol] 3.0 g/dL Critically low 3.4-5.0 [facility] Comment on above: Performed By: #### A MY, CMP, LIPA #### [facility] [address] [address] [address] Lawrence Wayne Albumin/Globulin [Mass ratio] 1.1 {ratio} Normal [facility] Comment on above: Performed By: #### A MY, CMP, LIPA #### [facility] [address] [address] [address] Lawrence Wayne ALP [Catalytic activity/Vol] 77 U/L Normal 46-116 [facility] Comment on above: Performed By: #### A MY, CMP, LIPA #### [facility] [address] [address] [address] Lawrence Wayne ALT [Catalytic activity/Vol] 21 U/L Normal 14-59 [facility] Comment on above: Performed By: #### A MY, CMP, LIPA #### [facility] [address] [address] [address] Lawrence Wayne Anion gap [Moles/Vol] 10.9 mmol/L Normal [facility] Comment on above: Performed By: #### A MY, CMP, LIPA #### [facility] [address] [address] [address] Lawrence Wayne AST [Catalytic activity/Vol] 15 U/L Normal 15-37 [facility] Comment on above: Performed By: #### A MY, CMP, LIPA #### [facility] [address] [address] [address] Lawrence Wayne Bilirubin [Mass/Vol] 0.3 mg/dL Normal 0.2-1.0 [facility] Comment on above: Performed By: #### A MY, CMP, LIPA #### [facility] [address] [address] [address] Lawrence Wayne Calcium [Mass/Vol] 8.4 mg/dL Critically low 8.5-10.1 [facility] Comment on above: Performed By: #### A MY, CMP, LIPA #### [facility] [address] [address] [address] Lawrence Wayne Chloride [Moles/Vol] 110 mmol/L Critically high 98-107 [facility] Comment on above: Performed By: #### A MY, CMP, LIPA #### [facility] [address] [address] [address] Lawrence Wayne CO2 [Moles/Vol] 25.0 mmol/L Normal 21.0-32.0 [facility] Comment on above: Performed By: #### A MY, CMP, LIPA #### [facility] [address] [address] [address] Lawrence Wayne Creatinine [Mass/Vol] 0.87 mg/dL Normal 0.55-1.02 [facility] Comment on above: Performed By: #### A MY, CMP, LIPA #### [facility] [address] [address] [address] Lawrence Wayne EGFR-AF GREEK >60 Normal >=60 [facility] Comment on above: Performed By: #### A MY, CMP, LIPA #### [facility] [address] [address] [address] Lawrence Wayne EGFR-NON AF GREEK >60 Normal >=60 [facility] Comment on above: Performed By: #### A MY, CMP, LIPA #### [facility] [address] [address] [address] Lawrence Wayne Globulin (S) [Mass/Vol] 2.8 g/dL Normal [facility] Comment on above: Performed By: #### A MY, CMP, LIPA #### [facility] [address] [address] [address] Lawrence Wayne Glucose [Mass/Vol] 96 mg/dL Normal 74-106 [facility] Comment on above: Performed By: #### A MY, CMP, LIPA #### [facility] [address] [address] [address] Lawrence Wayne Potassium [Moles/Vol] 3.9 mmol/L Normal 3.5-5.1 [facility] Comment on above: Performed By: #### A MY, CMP, LIPA #### [facility] [address] [address] [address] Lawrence Wayne Protein [Mass/Vol] 5.8 g/dL Critically low 6.4-8.2 [facility] Comment on above: Performed By: #### A MY, CMP, LIPA #### [facility] [address] [place] [address] Dr. Lawrence Wayne Sodium [Moles/Vol] 142 mmol/L Normal 136-145 [facility] Comment on above: Performed By: #### A MY, CMP, LIPA #### [facility] [address] [address] [address] Lawrence Wayne Urea nitrogen [Mass/Vol] 11.0 mg/dL Normal 7.0-18.0 [facility] Comment on above: Performed By: #### A MY, CMP, LIPA #### [facility] [address] [place] [address] Dr. Lawrence Wayne Urea nitrogen/Creatinine [Mass ratio] 12.6 mg/mg Normal [facility] Comment on above: Performed By: #### A MY, CMP, LIPA #### [facility] [address] [place] [address] Dr. Lawrence Wayne AMMONIAon 08-25-2022 Ammonia (P) [Moles/Vol] 44 umol/L Critically high 11-32 [facility] Comment on above: Performed By: #### A MY, CMP, LIPA #### [facility] [address] [address] [address] Lawrence Wayne AMYLASEon 02-06-2022 Amylase [Catalytic activity/Vol] 89 U/L Normal 25-115 [facility] Comment on above: Performed By: #### M G, CMP, CMADM, BNP, ALIYAH, LIPA #### [facility] [address] [address] [address] Lawrence Wayne BNPon 02-06-2022 Natriuretic peptide B (Bld) [Mass/Vol] 103.0 pg/mL Normal <=900.0 [facility] Comment on above: Performed By: #### M G, CMP, CMADM, BNP, ALIYAH, LIPA ####[facility] [address] [address]Dr. Lawrence Wayne CARDIAC ORAL ADMITon 022 CK [Catalytic activity/Vol] 65 U/L Normal 26-192 [facility] Comment on above: Performed By: #### M G, CMP, CMADM, BNP, ALIYAH, LIPA #### [facility] [address] [address] [address] Lawrence Wayne CK.MB [Mass/Vol] 1.16 ng/mL Normal <=3.60 [facility] Comment on above: Performed By: #### M G, CMP, CMADM, BNP, ALIYAH, LIPA #### [facility] [address] [address] [address] Lawrence Wayne HSTROP <4.0 Normal 4.0-51.3 [facility] Comment on above: Result Comment: CUT- OFF POINTS HAVE BEEN ESTABLISHED BASED ON THE FOURTH UNIVERSAL DEFINITIONS OF MYOCARDIAL INFARCTION. THE UPPER REFERENCE LIMIT (URL) OF TROPONIN, DEFINED THE 99TH PERCENTILE OF cTnI DISTRIBUTION IN A REFERENCE POPULATION, HAS BEEN CONFIRMED THE DECISION THRESHOLD FOR [place] DIAGNOSIS. Performed By: #### M G, CMP, CMADM, BNP, ALIYAH, LIPA #### [facility] [address] [place], [place] [address] Dr. Lawrence Wayne GEORGI 47 ng/mL Normal 9-82 [facility] Comment on above: Performed By: #### M G, CMP, CMADM, BNP, ALIYAH, LIPA #### [facility] [address] [place], [place] [address] Dr. Lawrence Wayne CBC AUTO DIFFon 02-06-2022 BASO # 0.1 103/ul Normal 0.0-0.1 [facility] Comment on above: Performed By: #### C BC ####[facility] [address] [id number] Wayne Basophils/100 WBC (Bld) 0.7 % Normal 0.2-2.0 [facility] Comment on above: Performed By: #### C BC ####[facility] [address] [address]Dr. Lawrence Wayne EO # 0.1 103/ul Normal 0.0-0.7 [facility] Comment on above: Performed By: #### C BC ####[facility] [address] [id number]. Lawrence Wayne Eosinophils/100 WBC (Bld) 1.1 % Normal 0.9-7.0 [facility] Comment on above: Performed By: #### C BC ####[facility] [address] [id number]. Lawrence Wayne Erythrocyte distribution width (RBC) [Ratio] 12.6 % Normal 11.0-15.0 [facility] Comment on above: Performed By: #### C BC ####[facility] [address] [id number]. Lawrence Wayne Hematocrit (Bld) [Volume fraction] 44.3 % Normal 36.0-48.0 [facility] Comment on above: Performed By: #### C BC ####[facility] [address] [address]DrKim Wayne Hemoglobin (Bld) [Mass/Vol] 14.4 g/dL Normal 12.0-16.0 [facility] Comment on above: Performed By: #### C BC ####[facility] [address] [address]Dr. Lawrence Wayne IG # 0.01 10e3/ul Normal 0.00-0.03 [facility] Comment on above: Performed By: #### C BC ####[facility] [address] [address]Dr. Lawrence Wayne IG % 0.1 % Normal 0.0-0.5 [facility] Comment on above: Performed By: #### C BC ####[facility] [address] [address]Dr. Lawrence Wayne LYMPH # 2.1 103/ul Normal 1.2-3.8 [facility] Comment on above: Performed By: #### C BC ####[facility] [address] [address]Dr. Lawrence Wayne Lymphocytes/100 WBC (Bld) 29.6 % Normal 20.5-60.0 [facility] Comment on above: Performed By: #### C BC ####[facility] [address] [address]Dr. Lawrence Wayne MANUAL DIFF REQ NO Normal [facility] Comment on above: Performed By: #### C BC ####[facility] [address] [address]Dr. Lawrence Wayne MCH (RBC) [Entitic mass] 30.4 pg Normal 26.7-34.0 [facility] Comment on above: Performed By: #### C BC ####[facility] [address] [id number]. Lawrence Wayne MCHC (RBC) [Mass/Vol] 32.5 g/dL Normal 29.9-35.2 [facility] Comment on above: Performed By: #### C BC ####[facility] [address] [address]Dr. Lawrence Wayne MCV (RBC) [Entitic vol] 93.7 fL Normal 81.0-99.0 [facility] Comment on above: Performed By: #### C BC ####[facility] [address] [id number]. Lawrence Wayne MONO # 0.8 103/ul Normal 0.3-0.8 [facility] Comment on above: Performed By: #### C BC ####[facility] [address] [id number]. Lawrence Wayne Monocytes/100 WBC (Bld) 10.6 % Normal 1.7-12.0 [facility] Comment on above: Performed By: #### C BC ####[facility] [address] [id number]. Lawrence Wayne NEUT # 4.1 103/ul Normal 1.4-6.5 [facility] Comment on above: Performed By: #### C BC ####[facility] [address] [address]Dr. Lawrence Wayne Neutrophils/100 WBC (Bld) 57.9 % Normal 43.0-75.0 [facility] Comment on above: Performed By: #### C BC ####[facility] [address] [id number]. Lawrence Wayne Platelet mean volume (Bld) [Entitic vol] 9.3 fL Critically low 9.5-13.5 [facility] Comment on above: Performed By: #### C BC ####[facility] [address] [id number]. Lawrence Wayne PLT 294 103/ul Normal 150-450 [facility] Comment on above: Performed By: #### C BC ####[facility] [address] [id number]. Lawrence Wayne RBC 4.73 106/ul Normal 4.20-5.40 [facility] Comment on above: Performed By: #### C BC ####[facility] [address] [id number]. Lawrence Wayne WBC 7.1 103/ul Normal 4.0-11.0 [facility] Comment on above: Performed By: #### C BC ####[facility] [address] [id number]. Lawrence Wayne CULTURE BLOODon 02-06-2022 Microscopic examination of blood, culture Culture Observations: NO GROWTH AT 5 DAYS. Normal [facility] Comment on above: Performed By: #### B LDCX2 ####[facility] [address] [id number]. Laarantonio Wayne Microscopic examination of blood, culture Culture Observations: NO GROWTH AT 5 DAYS. Normal [facility] Comment on above: Performed By: #### B LDCX1 ####[facility] [address] [id number]. Lawrence Wayne CULTURE URINEon 02-06-2022 CULTURE URINE Culture Observations : NO GROWTH. Normal [facility] Comment on above: Performed By: #### U RCX ####[facility] [address] [place], [place] [address]Dr. Lawrence Wayne Covid-19 PCR (CVDTB)on 01-14 SARS-CoV-2 (COVID-19) RNA EVELIA+probe Ql (Unsp spec) Not detected Normal NOT DETECTED [facility] Comment on above: Result Comment: When [...] for this test is supported by the [place] of [employer] and Human Service's declaration that [...] be used). Performed By: #### C VDTBH ####[facility] [address] [place], [place] [address]Dr. Lawrence Wayne LACTATE/LACTIC ACIDon 2021 Lactate [Moles/Vol] 1.1 mmol/L Normal 0.4-1.9 [facility] Comment on above: Performed By: #### A MY, CMP, LIPA #### [facility] [address] [address] [address] Lawrence Wayne LIPASEon 02-06-2022 Lipase [Catalytic activity/Vol] 107.0 U/L Normal 73.0-393.0 [facility] Comment on above: Performed By: #### M G, CMP, CMADM, BNP, ALIYAH, LIPA #### [facility] [address] [address] [address] Lawrence Wayne MAGNESIUMon 02-06-2022 Magnesium [Mass/Vol] 2.3 mg/dL Normal 1.8-2.4 [facility] Comment on above: Performed By: #### M G, CMP, CMADM, BNP, ALIYAH, LIPA ####[facility] [address] [address]Dr. Lawrence Wayne PROF 14(COMP METB)on 022 Albumin [Mass/Vol] 3.8 g/dL Normal 3.4-5.0 [facility] Comment on above: Performed By: #### M G, CMP, CMADM, BNP, ALIYAH, LIPA #### [facility] [address] [address] [address] Lawrence Wayne Albumin/Globulin [Mass ratio] 1.1 {ratio} Normal [facility] Comment on above: Performed By: #### M G, CMP, CMADM, BNP, ALIYAH, LIPA #### [facility] [address] [address] [address] Lawrence Wayne ALP [Catalytic activity/Vol] 98 U/L Normal 46-116 [facility] Comment on above: Performed By: #### M G, CMP, CMADM, BNP, ALIYAH, LIPA #### [facility] [address] [address] [address] Lawrence Wayne ALT [Catalytic activity/Vol] 26 U/L Normal 14-59 [facility] Comment on above: Performed By: #### M G, CMP, CMADM, BNP, ALIYAH, LIPA #### [facility] [address] [address] [address] Lawrence Wayne Anion gap [Moles/Vol] 12.9 mmol/L Normal Th [facility] Comment on above: Performed By: #### M G, CMP, CMADM, BNP, ALIYAH, LIPA #### [facility] [address] [address] [address] Lawrence Wayne AST [Catalytic activity/Vol] 25 U/L Normal 15-37 [facility] Comment on above: Performed By: #### M G, CMP, CMADM, BNP, ALIYAH, LIPA #### [facility] [address] [address] [address] Lawrence Wayne Bilirubin [Mass/Vol] 0.3 mg/dL Normal 0.2-1.0 [facility] Comment on above: Performed By: #### M G, CMP, CMADM, BNP, ALIYAH, LIPA #### [facility] [address] [address] [address] Lawrence Wayne Calcium [Mass/Vol] 9.1 mg/dL Normal 8.5-10.1 [facility] Comment on above: Performed By: #### M G, CMP, CMADM, BNP, ALIYAH, LIPA #### [facility] [address] [place] [address] Dr. Lawrence Wayne Chloride [Moles/Vol] 105 mmol/L Normal 98-107 [facility] Comment on above: Performed By: #### M G, CMP, CMADM, BNP, ALIYAH, LIPA #### [facility] [address] [address] [address] Lawrence Wayne CO2 [Moles/Vol] 24.0 mmol/L Normal 21.0-32.0 [facility] Comment on above: Performed By: #### M G, CMP, CMADM, BNP, ALIYAH, LIPA #### [facility] [address] [address] [address] Lawrence Wayne Creatinine [Mass/Vol] 0.90 mg/dL Normal 0.55-1.02 [facility] Comment on above: Performed By: #### M G, CMP, CMADM, BNP, ALIYAH, LIPA #### [facility] [address] [address] [address] Lawrence Wayne EGFR-AF GREEK >60 Normal >=60 [facility] Comment on above: Performed By: #### M G, CMP, CMADM, BNP, ALIYAH, LIPA #### [facility] [address] [address] [address] Lawrence Wayne EGFR-NON AF GREEK >60 Normal >=60 [facility] Comment on above: Performed By: #### M G, CMP, CMADM, BNP, ALIYAH, LIPA #### [facility] [address] [address] [address] Lawrence Wayne Globulin (S) [Mass/Vol] 3.5 g/dL Normal [facility] Comment on above: Performed By: #### M G, CMP, CMADM, BNP, ALIYAH, LIPA #### [facility] [address] [address] [address] Lawrence Wayne Glucose [Mass/Vol] 95 mg/dL Normal 74-106 [facility] Comment on above: Performed By: #### M G, CMP, CMADM, BNP, ALIYAH, LIPA #### [facility] [address] [address] [address] Lawrence Wayne Potassium [Moles/Vol] 3.9 mmol/L Normal 3.5-5.1 [facility] Comment on above: Performed By: #### M G, CMP, CMADM, BNP, ALIYAH, LIPA #### [facility] [address] [address] [address] Lawrence Wayne Protein [Mass/Vol] 7.3 g/dL Normal 6.4-8.2 The [facility] Comment on above: Performed By: #### M G, CMP, CMADM, BNP, ALIYAH, LIPA #### [facility] [address] [address] [address] Lawrence Wayne Sodium [Moles/Vol] 138 mmol/L Normal 136-145 [facility] Comment on above: Performed By: #### M G, CMP, CMADM, BNP, ALIYAH, LIPA #### [facility] [address] [place] [address] Dr. Lawrence Wayne Urea nitrogen [Mass/Vol] 12.0 mg/dL Normal 7.0-18.0 [facility] Comment on above: Performed By: #### M G, CMP, CMADM, BNP, ALIYAH, LIPA #### [facility] [address] [place] [address] Dr. Lawrence Wayne Urea nitrogen/Creatinine [Mass ratio] 13.3 mg/mg Normal [facility] Comment on above: Performed By: #### M G, CMP, CMADM, BNP, ALIYAH, LIPA #### [facility] [address] [place] [address] Dr. Lawrence Wayne UA RANDOM W/MICROSCOPICon BACTERIA NONE SEEN Normal NONE SEEN [facility] Comment on above: Performed By: #### A MY, CMP, LIPA #### [facility] [address] [place] [address] Dr. Lawrence Wayne Bilirubin Ql (U) Negative Normal NEGATIVE [facility] Comment on above: Performed By: #### A MY, CMP, LIPA #### [facility] [address] [place] [address] Dr. Lawrence Wayne CAST NONE SEEN Normal NONE SEEN [facility] Comment on above: Performed By: #### A MY, CMP, LIPA #### [facility] [address] [place] [address] Dr. Lawrence Wayne Clarity (U) CLEAR Normal CLEAR [facility] Comment on above: Performed By: #### A MY, CMP, LIPA #### [facility] [address] [place] [address] Dr. Lawrence Wayne Color (U) LT. YELLOW Normal YELLOW [facility] Comment on above: Performed By: #### A MY, CMP, LIPA #### [facility] [address] [place] [address] Dr. Lawrence Wayne Crystals LM Nom (Urine sed) NONE SEEN Normal NONE SEEN [facility] Comment on above: Performed By: #### A MY, CMP, LIPA #### [facility] [address] [address] [address] Lawrence Wayne Epithelial cells LM Ql (Urine sed) FEW Abnormal NONE SEEN /RARE [facility] Comment on above: Performed By: #### A MY, CMP, LIPA #### [facility] [address] [address] [address] Lawrence Wayne Glucose Ql (U) Negative Normal NEGATIVE [facility] Comment on above: Performed By: #### A MY, CMP, LIPA #### [facility] [address] [place] [address] Dr. Lawrence Wayne Hemoglobin Ql (U) Negative Normal NEGATIVE [facility] Comment on above: Performed By: #### A MY, CMP, LIPA #### [facility] [address] [place] [address] Dr. Lawrence Wayne Ketones Ql (U) Negative Normal NEGATIVE [facility] Comment on above: Performed By: #### A MY, CMP, LIPA #### [facility] [address] [place] [address] Dr. Lawrence Wayne LEUKOCYTES SMALL Abnormal NEGATIVE [facility] Comment on above: Performed By: #### A MY, CMP, LIPA #### [facility] [address] [place] [address] Dr. Lawrence Wayne MUCOUS NONE SEEN Normal NONE SEEN [facility] Comment on above: Performed By: #### A MY, CMP, LIPA #### [facility] [address] [place] [address] Dr. Lawrence Wayne Nitrite Ql (U) Negative Normal NEGATIVE [facility] Comment on above: Performed By: #### A MY, CMP, LIPA #### [facility] [address] [place] [address] Dr. Lawrence Wayne pH (U) 6.0 [pH] Normal 5-9 [facility] Comment on above: Performed By: #### A MY, CMP, LIPA #### [facility] [address] [address] [address] Lawrence Wayne RBC NONE SEEN Abnormal 0-2 [facility] Comment on above: Performed By: #### A MY, CMP, LIPA #### [facility] [address] [address] [address] Lawrence Wayne SPEC GRAVITY <=1.005 Abnormal 1.005-<=1.[address] [facility] Comment on above: Performed By: #### A MY, CMP, LIPA #### [facility] [address] [place] [address] Dr. Lawrence Wayne UA PROTEIN Negative Normal NEGATIVE/ TRACE [facility] Comment on above: Performed By: #### A MY CMP, LIPA #### [facility] [address] [place] [address] Dr. Lawrence Wayne Urobilinogen Qn (U) 0.2 {Antonina'U}/dL Normal 0.2 - 1. 0 [facility] Comment on above: Performed By: #### A MY CMP, LIPA #### [facility] [address] [place] [address] Dr. Lawrence Wayne WBC 0-2 Abnormal NONE SEEN [facility] Comment on above: Performed By: #### A MY, CMP, LIPA #### [facility] [address] [place] [address] Dr. Lawrence Wayne YEAST PRESENT Abnormal NONE SEEN [facility] Comment on above: Performed By: #### A GARTH CMP, LIPA #### [facility] [address] [place] [address] Dr. Lawrence Wayne XR ABD FLAT UP_PA [...] by: TYRELL MOREJON Date: 2022-02-06 16:08 Normal [facility] CTA CHEST WO W CONon 022 [...] by: MARK RIOS Date: 2021-08-29 12:20 Normal [facility] XR ABD FLAT_UPon 08-27-2021 XR ABD [...] ENEDELIA FOLEY Date: 2021-08-27 16:08 Normal [facility] BNPon 08-21-2021 Natriuretic peptide B (Bld) [Mass/Vol] 51.0 pg/mL Normal <=900.0 [facility] Comment on above: Performed By: #### A MY, CMP, LIPA #### [facility] [address] [place] [address] Dr. Lawrence Wayne CBC AUTO DIFFon 08-21-2021 BASO # 0.0 103/ul Normal 0.0-0.1 [facility] Comment on above: Performed By: #### A MY, CMP, LIPA #### [facility] [address] [place] [address] Dr. Lawrence Wayne Basophils/100 WBC (Bld) 0.2 % Normal 0.2-2.0 [facility] Comment on above: Performed By: #### A MY, CMP, LIPA #### [facility] [address] [place] [address] Dr. Lawrence Wayne EO # 0.0 103/ul Normal 0.0-0.7 [facility] Comment on above: Performed By: #### A MY, CMP, LIPA #### [facility] [address] [place] [address] Dr. Lawrence Wayne Eosinophils/100 WBC (Bld) 0.1 % Critically low 0.9-7.0 [facility] Comment on above: Performed By: #### A MY, CMP, LIPA #### [facility] [address] [place] [address] Dr. Lawrence Wayne Erythrocyte distribution width (RBC) [Ratio] 13.3 % Normal 11.0-15.0 [facility] Comment on above: Performed By: #### A MY, CMP, LIPA #### [facility] [address] [place] [address] Dr. Lawrence Wayne Hematocrit (Bld) [Volume fraction] 45.7 % Normal 36.0-48.0 [facility] Comment on above: Performed By: #### A MY, CMP, LIPA #### [facility] [address] [place] [address] Dr. Lawrence Wayne Hemoglobin (Bld) [Mass/Vol] 15.3 g/dL Normal 12.0-16.0 [facility] Comment on above: Performed By: #### A MY, CMP, LIPA #### [facility] [address] [place] [address] Dr. Lawrence Wayne IG # 0.12 10e3/ul Critically high 0.00-0.03 [facility] Comment on above: Performed By: #### A MY, CMP, LIPA #### [facility] [address] [place] [address] Dr. Lawrence Wayne IG % 0.9 % Critically high 0.0-0.[address] [facility] Comment on above: Performed By: #### A MY, CMP, LIPA #### [facility] [address] [place] [address] Dr. Lawrence Wayne LYMPH # 1.6 103/ul Normal 1.2-3.8 [facility] Comment on above: Performed By: #### A MY, CMP, LIPA #### [facility] [address] [place] [address] Dr. Lawrence Wayne Lymphocytes/100 WBC (Bld) 11.9 % Critically low 20.5-60.0 [facility] Comment on above: Performed By: #### A MY, CMP, LIPA #### [facility] [address] [place] [address] Dr. Lawrence Wayne MANUAL DIFF REQ NO Normal The [facility] Comment on above: Performed By: #### A MY, CMP, LIPA #### [facility] [address] [place] [address] Dr. Lawrence Wayne MCH (RBC) [Entitic mass] 30.2 pg Normal 26.7-34.0 [facility] Comment on above: Performed By: #### A MY, CMP, LIPA #### [facility] [address] [place] [address] Dr. Lawrence Wayne MCHC (RBC) [Mass/Vol] 33.5 g/dL Normal 29.9-35.2 [facility] Comment on above: Performed By: #### A MY, CMP, LIPA #### [facility] [address] [address] [address] Lawrence Wayne MCV (RBC) [Entitic vol] 90.1 fL Normal 81.0-99.0 [facility] Comment on above: Performed By: #### A MY, CMP, LIPA #### [facility] [address] [address] [address] Lawrence Wayne MONO # 1.0 103/ul Critically high 0.3-0.[address] [facility] Comment on above: Performed By: #### A MY, CMP, LIPA #### [facility] [address] [place] [address] Dr. Lawrence Wayne Monocytes/100 WBC (Bld) 7.2 % Normal 1.7-12.0 [facility] Comment on above: Performed By: #### A MY, CMP, LIPA #### [facility] [address] [address] [address] Lawrence Wayne NEUT # 11.0 103/ul Critically high 1.4-6.5 The [facility] Comment on above: Performed By: #### A MY, CMP, LIPA #### [facility] [address] [address] [address] Lawrence Wayne Neutrophils/100 WBC (Bld) 79.7 % Critically high 43.0-75.0 [facility] Comment on above: Performed By: #### A MY, CMP, LIPA #### [facility] [address] [address] [address] Lawrence Wayne Platelet mean volume (Bld) [Entitic vol] 9.1 fL Critically low 9.5-13.5 [facility] Comment on above: Performed By: #### A MY, CMP, LIPA #### [facility] [address] [address] [address] Lawrence Wayne PLT 434 103/ul Normal 150-450 [facility] Comment on above: Performed By: #### A MY, CMP, LIPA #### [facility] [address] [address] [address] Lawrence Wayne RBC 5.07 106/ul Normal 4.20-5.40 [facility] Comment on above: Performed By: #### A MY, CMP, LIPA #### [facility] [address] [address] [address] Lawrence Wayne WBC 13.8 103/ul Critically high 4.0-11.0 [facility] Comment on above: Performed By: #### A MY, CMP, LIPA #### [facility] [address] [address] [address] Lawrence Wayne PROF 14(COMP METB)on 022 Albumin [Mass/Vol] 3.9 g/dL Normal 3.5-5.0 [facility] Comment on above: Performed By: #### A MY, CMP, LIPA #### [facility] [address] [address] [address] Lawrence Wayne Albumin/Globulin [Mass ratio] 1.0 {ratio} Normal [facility] Comment on above: Performed By: #### A MY, CMP, LIPA #### [facility] [address] [place] [address] Dr. Lawrence Wayne ALP [Catalytic activity/Vol] 104 U/L Normal 38-126 [facility] Comment on above: Performed By: #### A MY, CMP, LIPA #### [facility] [address] [address] [address] Lawrence Wayne ALT [Catalytic activity/Vol] 20 U/L Normal 9-52 [facility] Comment on above: Performed By: #### A MY, CMP, LIPA #### [facility] [address] [address] [address] Lawrence Wayne Anion gap [Moles/Vol] 15.5 mmol/L Normal [facility] Comment on above: Performed By: #### A MY, CMP, LIPA #### [facility] [address] [place] [address] Dr. Lawrence Wayne AST [Catalytic activity/Vol] 13 U/L Critically low 14-36 [facility] Comment on above: Performed By: #### A MY, CMP, LIPA #### [facility] [address] [address] [address] Lawrence Wayne Bilirubin [Mass/Vol] 0.4 mg/dL Normal 0.2-1.3 [facility] Comment on above: Performed By: #### A MY, CMP, LIPA #### [facility] [address] [place] [address] Dr. Lawrence Wayne Calcium [Mass/Vol] 9.4 mg/dL Normal 8.4-10.2 [facility] Comment on above: Performed By: #### A MY, CMP, LIPA #### [facility] [address] [place] [address] Dr. Lawrence Wayne Chloride [Moles/Vol] 100 mmol/L Normal 98-107 [facility] Comment on above: Performed By: #### A MY, CMP, LIPA #### [facility] [address] [address] [address] Lawrence Wayne CO2 [Moles/Vol] 23.9 mmol/L Normal 22.0-30.0 The [facility] Comment on above: Performed By: #### A MY, CMP, LIPA #### [facility] [address] [place] [address] Dr. Lawrence Wayne Creatinine [Mass/Vol] 0.97 mg/dL Normal 0.52-1.04 [facility] Comment on above: Performed By: #### A MY, CMP, LIPA #### [facility] [address] [place] [address] Dr. Lawrence Wayne EGFR-AF GREEK >60 Normal >=60 [facility] Comment on above: Performed By: #### A MY, CMP, LIPA #### [facility] [address] [place] [address] Dr. Lawrence Wayne EGFR-NON AF GREEK 58 mL/min/1.73m2 Critically low >=60 [facility] Comment on above: Performed By: #### A MY, CMP, LIPA #### [facility] [address] [address] [address] Lawrence Wayne Globulin (S) [Mass/Vol] 3.8 g/dL Normal [facility] Comment on above: Performed By: #### A MY, CMP, LIPA #### [facility] [address] [place] [address] Dr. Lawrence Wayne Glucose [Mass/Vol] 169 mg/dL Critically high 74-106 T [facility] Comment on above: Performed By: #### A MY, CMP, LIPA #### [facility] [address] [place] [address] Dr. Lawrence Wayne Potassium [Moles/Vol] 3.4 mmol/L Normal 3.4-5.0 [facility] Comment on above: Performed By: #### A MY, CMP, LIPA #### [facility] [address] [place] [address] Dr. Lawrence Wayne Protein [Mass/Vol] 7.7 g/dL Normal 6.1-8.2 [facility] Comment on above: Performed By: #### A MY, CMP, LIPA #### [facility] [address] [place] [address] Dr. Lawrence Wayne Sodium [Moles/Vol] 136 mmol/L Critically low 137-145 [facility] Comment on above: Performed By: #### A MY, CMP, LIPA #### [facility] [address] [place] [address] Dr. Lawrence Wayne Urea nitrogen [Mass/Vol] 16.0 mg/dL Normal 7.0-17.0 [facility] Comment on above: Performed By: #### A MY, CMP, LIPA #### [facility] [address] [place] [address] Dr. Lawrence Wayne Urea nitrogen/Creatinine [Mass ratio] 16.5 mg/mg Normal [facility] Comment on above: Performed By: #### A MY, CMP, LIPA #### [facility] [address] [place] [address] Dr. Lawrence Wayne AMIRA by IFAon 08-12-2021 Antinuclear Antibodies, IFA Positive Abnormal [facility] Comment on above: Result Comment: Nega tive <1:80 Borderline 1:80 Positive >1:80 Performed By: #### A NAIFA ####[facility] [address] [address]Dr[address] Lawrence Wayne Centriole Pattern Normal [facility] Comment on above: Performed By: #### A NAIFA ####[facility] [address] [address]Dr. Lawrence Wayne Centromere Pattern Normal [facility] Comment on above: Performed By: #### A NAIFA ####[facility] [address] [address]Dr. Lawrence Wayne Homogeneous Pattern Normal [facility] Comment on above: Performed By: #### A NAIFA ####[facility] [address] [address]Dr. Lawrence Wayne Midbody Pattern Normal The [facility] Comment on above: Performed By: #### A NAIFA ####[facility] [address] [address]Dr. 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 Lawrence Wayne Nuclear Dot Pattern Normal [facility] Comment on above: Performed By: #### A MICHELLE ####[facility] [address] [address]Dr. Lawrence Wayne Nuclear Membrane Pattern Normal [facility] Comment on above: Performed By: #### A NAIFA ####[facility] [address] [address]Dr. Lawrence Wayne Nucleolar Pattern Normal [facility] Comment on above: Performed By: #### A NAIFA ####[facility] [address] [address]Dr. Lawrence Wayne PCNA Pattern Normal [facility] Comment on above: Performed By: #### A NAIFA ####[facility] [address] [address]Dr. Lawrence Wayne Speckled Pattern 1:160 Critically high [facility] Comment on above: Result Comment: ICAP nomenclature: AC-2,4,5,29 Performed By: #### A NAIFA ####[facility] [address] [address]Dr. Lawrence Wayne Spindle Apparatus Pattern Normal [facility] Comment on above: Performed By: #### A NAIFA ####[facility] [address] [address]Dr[address] Lawrence Wayne AMIRA DIRECTon 08-11-2021 AMIRA Direct Positive Abnormal Negative [facility] Comment on above: Performed By: #### A NAD ####[facility] [address] [address]Dr[address] Lawrence Wayne SLE PROFILE Aon 08-11-2021 Anti-DNA (DS) Ab Qn 1 IU/mL Normal 0-9 [facility] Comment on above: Result Comment: Nega tive <5 Equivocal 5 - 9 Positive >9 Performed By: #### A MY, CMP, LIPA #### [facility] [address] [address] [address] Lawrence Wayne Antichromatin Antibodies <0.2 Normal 0.0-0.9 [facility] Comment on above: Performed By: #### A MY, CMP, LIPA #### [facility] [address] [address] [address] Lawrence Wayne RA Latex Turbid. <10.0 Normal <14.0 The [facility] Comment on above: Performed By: #### A MY, CMP, LIPA #### [facility] [address] [address] [address] Lawrence Wayne POACHER WRINGER OPERATOR Antibodies <0.2 Normal 0.0-0.9 [facility] Comment on above: Performed By: #### A MY, CMP, LIPA #### [facility] [address] [address] [address] Lawrence Wayne Sjogren's Anti-SS-A 1.4 AI Critically high 0.0-0.9 [facility] Comment on above: Performed By: #### A MY, CMP, LIPA #### [facility] [address] [place] [address] Dr. Lawrence Garciaogrvidal's Anti-SS-B <0.2 Normal 0.0-0.9 [facility] Comment on above: Performed By: #### A MY, CMP, LIPA #### [facility] [address] [address] [address] Lawrence Wayne Ramos Antibodies <0.2 Normal 0.0-0.9 [facility] Comment on above: Performed By: #### A MY, CMP, LIPA #### [facility] [address] [address] [address] Lawrence Wayne ANTISTREPTOLYSIN O AB (ASO) on 08-10-2021 Antistreptolysin O Ab 55.6 IU/mL Normal 0.0-200.0 [facility] Comment on above: Performed By: #### A MY, CMP, LIPA #### [facility] [address] [address] [address] Lawrence Wayne C3 and C4 COMPLEMENTon 08-10 Complement C3, Serum 124 mg/dL Normal 82-167 [facility] Comment on above: Performed By: #### A MY, CMP, LIPA #### [facility] [address] [address] [address] Lawrence Wayne Complement C4, Serum 12 mg/dL Normal 12-38 [facility] Comment on above: Performed By: #### A MY, CMP, LIPA #### [facility] [address] [place] [address] Dr. Lawrence Wayne CBC AUTO DIFFon 08-09-2021 BASO # 0.1 103/ul Normal 0.0-0.1 [facility] Comment on above: Performed By: #### A MY, CMP, LIPA #### [facility] [address] [place] [address] Dr. Lawrence Wayne Basophils/100 WBC (Bld) 0.6 % Normal 0.2-2.0 [facility] Comment on above: Performed By: #### A MY, CMP, LIPA #### [facility] [address] [place] [address] Dr. Lawrence Wayne EO # 0.0 103/ul Normal 0.0-0.7 [facility] Comment on above: Performed By: #### A MY, CMP, LIPA #### [facility] [address] [place] [address] Dr. Lawrence Wayne Eosinophils/100 WBC (Bld) 0.2 % Critically low 0.9-7.0 [facility] Comment on above: Performed By: #### A MY, CMP, LIPA #### [facility] [address] [place] [address] Dr. Lawrence Wayne Erythrocyte distribution width (RBC) [Ratio] 13.4 % Normal 11.0-15.0 [facility] Comment on above: Performed By: #### A MY, CMP, LIPA #### [facility] [address] [place] [address] Dr. Lawrence Wayne Hematocrit (Bld) [Volume fraction] 43.6 % Normal 36.0-48.0 [facility] Comment on above: Performed By: #### A MY, CMP, LIPA #### [facility] [address] [place] [address] Dr. Lawrence Wayne Hemoglobin (Bld) [Mass/Vol] 14.2 g/dL Normal 12.0-16.0 [facility] Comment on above: Performed By: #### A MY, CMP, LIPA #### [facility] [address] [address] [address] Lawrence Wayne IG # 0.03 10e3/ul Normal 0.00-0.03 [facility] Comment on above: Performed By: #### A MY, CMP, LIPA #### [facility] [address] [address] [address] Lawrence Wayne IG % 0.3 % Normal 0.0-0.5 [facility] Comment on above: Performed By: #### A MY, CMP, LIPA #### [facility] [address] [place] [address] Dr. Lawrence Wayne LYMPH # 1.1 103/ul Critically low 1.2-3.8 [facility] Comment on above: Performed By: #### A MY, CMP, LIPA #### [facility] [address] [place] [address] Dr. Lawrence Wayne Lymphocytes/100 WBC (Bld) 12.7 % Critically low 20.5-60.0 [facility] Comment on above: Performed By: #### A MY, CMP, LIPA #### [facility] [address] [address] [address] Lawrence Wayne MANUAL DIFF REQ NO Normal [facility] Comment on above: Performed By: #### A MY, CMP, LIPA #### [facility] [address] [place] [address] Dr. Lawrence Wayne MCH (RBC) [Entitic mass] 30.3 pg Normal 26.7-34.0 [facility] Comment on above: Performed By: #### A MY, CMP, LIPA #### [facility] [address] [place] [address] Dr. Lawrence Wayne MCHC (RBC) [Mass/Vol] 32.6 g/dL Normal 29.9-35.2 [facility] Comment on above: Performed By: #### A MY, CMP, LIPA #### [facility] [address] [place] [address] Dr. Lawrence Wayne MCV (RBC) [Entitic vol] 93.0 fL Normal 81.0-99.0 [facility] Comment on above: Performed By: #### A MY, CMP, LIPA #### [facility] [address] [place] [address] Dr. Lawrence Wayne MONO # 0.3 103/ul Normal 0.3-0.8 [facility] Comment on above: Performed By: #### A MY, CMP, LIPA #### [facility] [address] [place] [address] Dr. Lawrence Wayne Monocytes/100 WBC (Bld) 3.7 % Normal 1.7-12.0 [facility] Comment on above: Performed By: #### A MY, CMP, LIPA #### [facility] Laboratory [address] [place] [address] Dr. Lawrence Wayne NEUT # 7.3 103/ul Critically high 1.4-6.[address] [facility] Comment on above: Performed By: #### A MY, CMP, LIPA #### [facility] [address] [place] [address] Dr. Lawrence Wayne Neutrophils/100 WBC (Bld) 82.5 % Critically high 43.0-75.0 The [facility] Comment on above: Performed By: #### A MY, CMP, LIPA #### [facility] [address] [place] [address] Dr. Lawrence Wayne Platelet mean volume (Bld) [Entitic vol] 9.6 fL Normal 9.5-13.5 [facility] Comment on above: Performed By: #### A MY, CMP, LIPA #### [facility] [address] [place] [address] Dr. Lawrence Wayne PLT 322 103/ul Normal 150-450 [facility] Comment on above: Performed By: #### A MY, CMP, LIPA #### [facility] [address] [place] [address] Dr. Lawrence Wayne RBC 4.69 106/ul Normal 4.20-5.40 [facility] Comment on above: Performed By: #### A MY, CMP, LIPA #### [facility] [address] [address] [address] Lawrence Wayne WBC 8.8 103/ul Normal 4.0-11.0 [facility] Comment on above: Performed By: #### A MY CMP, LIPA #### [facility] [address] [address] [address] Lawrence Wayne CRPon 08-09-2021 CRP [Mass/Vol] mg/L Normal <=1.0 The [facility] Comment on above: Performed By: #### A MY, CMP, LIPA #### [facility] [address] [address] [address] Lawrence Wayne IRONon 08-09-2021 Iron [Mass/Vol] 83.0 ug/dL Normal 37.0-170.[address] [facility] Comment on above: Performed By: #### A MY CMP, LIPA #### [facility] [address] [address] [address] Lawrence Wayne SED RATE WESTERGRENon 2021 SED RATE 16 mm/hr Normal <=30 [facility] Comment on above: Performed By: #### S EDR ####[facility] [address] [address]Dr. Lawrence Wayne URIC ACID SERUMon 08-09-2021 Urate [Mass/Vol] 3.4 mg/dL Normal 2.5-6.2 The [facility] Comment on above: Performed By: #### A GARTH, CMP, LIPA #### [facility] [address] [address] [address] Lawrence Wayne XR CSPINE MIN 4 [...] by: TYRELL MOREJON Date: 2021-08-09 14:37 Normal [facility] H PYLORI ANTIBODY IGGon 06-16 H. PYLORI IGG ABS 0.13 Index Value Normal 0.00-0.79 [facility] Comment on above: Result Comment: Nega tive <0.80 Equivocal 0.80 - 0.89 Positive >0.89 Performed By: #### A MY, CMP, LIPA #### [facility] [address] [place] [address] Dr. Lawrence Wayne AMYLASEon 07-11-2021 Amylase [Catalytic activity/Vol] 100 U/L Normal 31-110 [facility] Comment on above: Performed By: #### A MY, CMP, LIPA #### [facility] [address] [place] [address] Dr. Lawrence Wayne CBC AUTO DIFFon 07-11-2021 BASO # 0.1 103/ul Normal 0.0-0.1 [facility] Comment on above: Performed By: #### A MY, CMP, LIPA #### [facility] [address] [place] [address] Dr. Lawrence Wayne Basophils/100 WBC (Bld) 0.7 % Normal 0.2-2.0 [facility] Comment on above: Performed By: #### A MY, CMP, LIPA #### [facility] [address] [place] [address] Dr. Lawrence Wayne EO # 0.1 103/ul Normal 0.0-0.7 [facility] Comment on above: Performed By: #### A MY, CMP, LIPA #### [facility] [address] [place] [address] Dr. Lawrence Wayne Eosinophils/100 WBC (Bld) 1.2 % Normal 0.9-7.0 [facility] Comment on above: Performed By: #### A MY, CMP, LIPA #### [facility] [address] [place] [address] Dr. Lawrence Wayne Erythrocyte distribution width (RBC) [Ratio] 13.9 % Normal 11.0-15.0 [facility] Comment on above: Performed By: #### A MY, CMP, LIPA #### [facility] [address] [address] [address] Lawrence Wayne Hematocrit (Bld) [Volume fraction] 45.9 % Normal 36.0-48.0 [facility] Comment on above: Performed By: #### A MY, CMP, LIPA #### [facility] [address] [place] [address] Dr. Lawrence Wayne Hemoglobin (Bld) [Mass/Vol] 14.9 g/dL Normal 12.0-16.0 [facility] Comment on above: Performed By: #### A MY, CMP, LIPA #### [facility] [address] [place] [address] Dr. Lawrence Wayne IG # 0.03 10e3/ul Normal 0.00-0.03 [facility] Comment on above: Performed By: #### A MY, CMP, LIPA #### [facility] [address] [place] [address] Dr. Lawrence Wayne IG % 0.4 % Normal 0.0-0.5 [facility] Comment on above: Performed By: #### A MY, CMP, LIPA #### [facility] [address] [place] [address] Dr. Lawrence Wayne LYMPH # 2.2 103/ul Normal 1.2-3.8 [facility] Comment on above: Performed By: #### A MY, CMP, LIPA #### [facility] [address] [place] [address] Dr. Lawrence Wayne Lymphocytes/100 WBC (Bld) 29.0 % Normal 20.5-60.0 [facility] Comment on above: Performed By: #### A MY, CMP, LIPA #### [facility] [address] [place] [address] Dr. Lawrence Wayne MANUAL DIFF REQ NO Normal The [facility] Comment on above: Performed By: #### A MY, CMP, LIPA #### [facility] [address] [place] [address] Dr. Lawrence Wayne MCH (RBC) [Entitic mass] 29.8 pg Normal 26.7-34.0 [facility] Comment on above: Performed By: #### A MY, CMP, LIPA #### [facility] [address] [place] [address] Dr. Lawrence Wayne MCHC (RBC) [Mass/Vol] 32.5 g/dL Normal 29.9-35.2 [facility] Comment on above: Performed By: #### A MY, CMP, LIPA #### [facility] [address] [place] [address] Dr. Lawrence Wayne MCV (RBC) [Entitic vol] 91.8 fL Normal 81.0-99.0 [facility] Comment on above: Performed By: #### A MY, CMP, LIPA #### [facility] [address] [place] [address] Dr. Lawrence Wayne MONO # 0.9 103/ul Critically high 0.3-0.[address] [facility] Comment on above: Performed By: #### A MY, CMP, LIPA #### [facility] [address] [place] [address] Dr. Lawrence Wayne Monocytes/100 WBC (Bld) 11.7 % Normal 1.7-12.0 [facility] Comment on above: Performed By: #### A MY, CMP, LIPA #### [facility] [address] [place] [address] Dr. Lawrence Wayne NEUT # 4.3 103/ul Normal 1.4-6.5 [facility] Comment on above: Performed By: #### A MY, CMP, LIPA #### [facility] [address] [place] [address] Dr. Lawrence Wayne Neutrophils/100 WBC (Bld) 57.0 % Normal 43.0-75.0 [facility] Comment on above: Performed By: #### A MY, CMP, LIPA #### [facility] [address] [place] [address] Dr. Lawrence Wayne Platelet mean volume (Bld) [Entitic vol] 8.7 fL Critically low 9.5-13.5 [facility] Comment on above: Performed By: #### A MY, CMP, LIPA #### [facility] [address] [place] [address] Dr. Lawrence Wayne PLT 351 103/ul Normal 150-450 [facility] Comment on above: Performed By: #### A MY, CMP, LIPA #### [facility] [address] [address] [address] Lawrence Wayne RBC 5.00 106/ul Normal 4.20-5.40 [facility] Comment on above: Performed By: #### A MY, CMP, LIPA #### [facility] [address] [place] [address] Dr. Lawrence Wayne WBC 7.6 103/ul Normal 4.0-11.0 [facility] Comment on above: Performed By: #### A MY, CMP, LIPA #### [facility] [address] [place] [address] Dr. Lawrence Wayne LIPASEon 07-11-2021 Lipase [Catalytic activity/Vol] 93.0 U/L Normal 23.0-300.0 [facility] Comment on above: Performed By: #### A MY, CMP, LIPA #### [facility] [address] [place] [address] Dr. Lawrence Wayne PROF 14(COMP METB)on 022 Albumin [Mass/Vol] 4.1 g/dL Normal 3.5-5.0 [facility] Comment on above: Performed By: #### A MY, CMP, LIPA #### [facility] [address] [place] [address] Dr. Lawrence Wayne Albumin/Globulin [Mass ratio] 1.1 {ratio} Normal [facility] Comment on above: Performed By: #### A MY, CMP, LIPA #### [facility] [address] [place] [address] Dr. Lawrence Wayne ALP [Catalytic activity/Vol] 101 U/L Normal 38-126 [facility] Comment on above: Performed By: #### A MY, CMP, LIPA #### [facility] [address] [address] [address] Lawrence Wayne ALT [Catalytic activity/Vol] 38 U/L Normal 9-52 [facility] Comment on above: Performed By: #### A MY, CMP, LIPA #### [facility] [address] [address] [address] Lawrence Wayne Anion gap [Moles/Vol] 12.5 mmol/L Normal [facility] Comment on above: Performed By: #### A MY, CMP, LIPA #### [facility] [address] [address] [address] Lawrence Wayne AST [Catalytic activity/Vol] 25 U/L Normal 14-36 [facility] Comment on above: Performed By: #### A MY, CMP, LIPA #### [facility] [address] [place] [address] Dr. Lawrence Wayne Bilirubin [Mass/Vol] 0.8 mg/dL Normal 0.2-1.3 [facility] Comment on above: Performed By: #### A MY, CMP, LIPA #### [facility] [address] [place] [address] Dr. Lawrence Wayne Calcium [Mass/Vol] 9.9 mg/dL Normal 8.4-10.2 [facility] Comment on above: Performed By: #### A MY, CMP, LIPA #### [facility] [address] [place] [address] Dr. Lawrence Wayne Chloride [Moles/Vol] 98 mmol/L Normal 98-107 [facility] Comment on above: Performed By: #### A MY, CMP, LIPA #### [facility] [address] [place] [address] Dr. Lawrence Wayne CO2 [Moles/Vol] 26.6 mmol/L Normal 22.0-30.0 [facility] Comment on above: Performed By: #### A MY, CMP, LIPA #### [facility] [address] [place] [address] Dr. Lawrence Wayne Creatinine [Mass/Vol] 1.12 mg/dL Critically high 0.52-1.04 [facility] Comment on above: Performed By: #### A MY, CMP, LIPA #### [facility] [address] [address] [address] Lawrence Wayne EGFR-AF GREEK 59 mL/min/1.73m2 Critically low >=60 [facility] Comment on above: Performed By: #### A MY, CMP, LIPA #### [facility] [address] [address] [address] Lawrence Wayne EGFR-NON AF GREEK 49 mL/min/1.73m2 Critically low >=60 [facility] Comment on above: Performed By: #### A MY, CMP, LIPA #### [facility] [address] [place] [address] Dr. Lawrence Wayne Globulin (S) [Mass/Vol] 3.7 g/dL Normal [facility] Comment on above: Performed By: #### A MY, CMP, LIPA #### [facility] [address] [place] [address] Dr. Lawrence Wayne Glucose [Mass/Vol] 117 mg/dL Critically high 74-106 T [facility] Comment on above: Performed By: #### A MY, CMP, LIPA #### [facility] [address] [place] [address] Dr. Lawrence Wayne Potassium [Moles/Vol] 4.1 mmol/L Normal 3.4-5.0 [facility] Comment on above: Performed By: #### A MY, CMP, LIPA #### [facility] [address] [address] [address] Lawrence Wayne Protein [Mass/Vol] 7.8 g/dL Normal 6.1-8.2 [facility] Comment on above: Performed By: #### A MY, CMP, LIPA #### [facility] [address] [address] [address] Lawrence Wayne Sodium [Moles/Vol] 133 mmol/L Critically low 137-145 [facility] Comment on above: Performed By: #### A MY, CMP, LIPA #### [facility] [address] [place], [place] [address] Dr. Lawrence Wayne Urea nitrogen [Mass/Vol] 9.0 mg/dL Normal 7.0-17.0 [facility] Comment on above: Performed By: #### A MY, CMP, LIPA #### [facility] [address] [place], [place] [address] Dr. Lawrence Wayne Urea nitrogen/Creatinine [Mass ratio] 8.0 mg/mg Normal [facility] Comment on above: Performed By: #### A MY, CMP, LIPA #### [facility] [address] [place], [place] [address] Dr. Lawrence Wayne Vital Signs Date Time Vital Sign Value Performing Clinician Thadi boris 05-27-2022 15:00-0500 Body height 160.02 cm Prasad Isabel Other [facility] Other 05-27-2022 15:00-0500 Body mass index (BMI) [Ratio] 23.56 kg/m2 Prasad Isabel Other [facility] Other 05-27-2022 15:00-0500 Body weight 60.33 kg Prasad Isabel Other [facility] Other Encounters Encounter Date Encounter Type Care Provider Facility Start: 01-18-2024 End: 01-18-2024 ambulatory Cindy Phan Facility:[facility] Start: 01-11-2024 End: 01-11-2024 ambulatory CINDY PHAN Not Available Start: 11-16-2023 End: 11-16-2023 ambulatory CINDY PHAN Not Available Start: 11-02-2023 End: 11-02-2023 ambulatory JASVIR SMILEY Not Available Start: 10-08-2023 End: 10-08-2023 ambulatory MIGUEL ÁNGEL HER Not Available Start: 07-27-2023 Bamboo flowsheet Cindy rivero DO Work Phone: [facility] Start: 07-27-2023 Bamboo flowsheet Cindy rivero DO Work Phone: [facility] Start: 07-27-2023 End: 07-27-2023 ambulatory CINDY PHAN Not Available Start: 07-01-2022 End: 07-02-[address] ANITHA MCGREGOR Facility:[facility] Start: 06-23-2022 End: 06-23-2022 ambulatory ANITHA MCGREGOR Facility:[facility] Start: 06-23-2022 End: 06-23-2022 ambulatory Benjamin Moore PA-C Work Phone: [facility] Comment on above: Fibromyalgia (Primar y Dx); Cervicalgia Start: 06-23-2022 End: 06-23-2022 Telemedicine consultation with patient Benjamin Moore PA-C Work Phone: [facility] Start: 06-17-2022 End: 06-17-[address] JULIANN ROGER Facility:[facility] Start: 06-03-2022 End: 06-03-2022 ambulatory Bentley Bragg Other [facility] Other Start: 06-03-2022 Chart abstracting Unk (Historical) N eurology Start: 06-03-2022 Telephone encounter Bentley Bragg [facility] Start: 05-27-2022 End: 05-27-2022 ambulatory Prasad Isabel Other [facility] Other Start: 05-27-2022 Office outpatient ne w 30 minutes Prasad Isabel [facility] Start: 05-20-2022 End: 05-21-2022 ambulatory [...] End: 07-06-2018 Patient encounter procedure [facility] Facility:[facility] Procedures Date Procedure Procedure Detail Performing [...] [facility] [address] [place] [address] Cindy Phan DO [address] [place], [place] [id number] [facility] Start: 07-27-2023 End: 07-27-2023 Patient encounter procedure 07/27/2023 2:15 PM EST Office Visit [facility] [address] [place] [address] Cindy Phan DO [address] [place] [address] Arrived [facility] Comment on above: Arrived Start: 03-26-2023 Screening for malign ant neoplasm of breast Mammogram [facility] Start: 02-13-2023 Influenza vaccination Influenza Vacc ine (#1) [facility] Start: 06-15-2022 ADVANCE DIRECTIVE DISCUSSION ADVANCE DIRECTIVE DISCUSSION Start: 06-15-2022 DEPRESSION ASSESSMENT DEPRESSION ASS ESSMENT Start: 02-13-2022 Influenza vaccination INFLUENZA (#1) Start: 12-08-2021 COVID-19 VACCINE (5 - Booster for Moderna series) COVID-19 VACCINE (5 - Booster for Moderna series) Start: 06-15-2021 ADVANCE DIRECTIVE DISCUSSION ADVANCE DIRECTIVE DISCUSSION Start: 06-15-2021 DEPRESSION ASSESSMENT DEPRESSION ASS ESSMENT Start: 01-11-2021 BONE DENSITY BONE DENSITY Start: 01-11-2021 Pneumococcal Vaccine : 65+ Years (1 - PCV) Pneumococcal Vaccine: 65+ Years (1 - PCV) [facility] Start: 01-11-2021 PNEUMOCOCCAL: 65+ (1 - PCV) PNEUMOCOCCAL: 65+ (1 - PCV) Start: 09-20-2012 DIABETES SCREEN DIABETES SCREEN [facility] Start: 01-11-2006 SHINGRIX VACCINE (1 of 2) SHINGRIX V ACCINE (1 of 2) Start: 01-11-2001 COLOGUARD (FIT-DNA) COLOGUARD (FIT-D NA) Start: 01-11-2001 Colonoscopy COLONOSCOPY Start: 01-11-2001 COLORECTAL CANCER SCREENING COLORECTAL CANCER SCREENING Start: 01-11-[address] COLONOGRAPHY [facility] Start: 01-11-2001 FECAL OCCULT BLOOD FECAL OCCULT BLOO D Start: 01-11-2001 LIPID SCREEN LIPID SCREEN Start: 01-11-2001 SIGMOIDOSCOPY SIGMOIDOSCOPY [facility] Start: 1996 Mammography MAMMOGRAM Start: 01-11-1975 Urine microalbumin profile DTAP,TDAP,TD (1 - Tdap) Start: 01-11-1974 HEPATITIS C SCREENING HEPATITIS C SC IESHA Start: 1956 COVID-19 VACCINE (#1) COVID-19 VACCI NE (#1) Start: 1955 Screening for malign ant neoplasm of colon [facility] Immunizations Immunization Date Immunization Notes Care Provider Bill dorsey 04-09-2022 influenza virus vacc ine, unspecified formulation Cindy Phan DO Work Phone: [facility] Payers Date Payer Category Payer Medicare ANTHEM MEDICARE ADVANTAGE ANTHEM MEDICARE ADVANTAGE [id number] 2023-Present [address] [place] [address] [id number] 2021 Unknown ANTHEM BLUE CROS S AND BLUE SHIELD ANTHEM MEDIBLUE HMO [id number] 2021-Present [phone] [address] [place] [address] HMO [id number] 2018 Self-pay 2018 Unknown [id number] 1959 Unknown [id number] 1956 Unknown [id number] [id number] 1956 Unknown [id number] .[id number] 1956 Unknown [id number] 2.16840.1.352642.3.579.2.593 1956 Unknown [id number] 2.16.840.1.728652.3.579.2.593 1956 Unknown [id number] 2.16.840.1.653797.3.579.2.593 1956 Unknown [id number] 2.16840.1.911174.3.579.2.593 1956 Unknown [id number] 2.16.840.1.514649.3.579.2.593 1956 Unknown [id number] 2.16.840.1.896180.3.579.2.593 1956 Unknown [id number] 2.16.840.1.473797.3.579.2.593 1956 Unknown [id number] 2.16.840.1.733944.3.579.2.593 1956 Unknown [id number] 2.16.840.1.528896.3.579.2.593 1956 Unknown [id number] 2.16.840.1.205081.3.579.2.593 1956 Unknown [id number] 2.16.840.1.651421.3.579.2.593 1956 Unknown [id number] 2.16.840.1.886854.3.579.2.125 9 1956 Unknown [id number] 2.16.840.1.733108.3.579.2.125 9 1956 Unknown [id number] 2.16.840.1.414154.3.579.2.125 9 1956 Unknown [id number] 2.16.840.1.716167.3.579.2.125 9 1956 Unknown [id number] 2.16.840.1.936808.3.579.2.125 9 1956 Unknown [id number] 2.16.840.1.508924.3.579.2.727 1956 Unknown [id number] 2.16.840.1.956292.3.579.2.727 Unknown [id number] 2.16.840.1.101832.3.579.2.531 Social History Date Type Detail Facility Start: 04-10-2011 End: 07-27-2023 Tobacco smoking status DCIS Never smoked tobacco Start: 04-10-2011 End: 07-27-2023 Tobacco use and exposure Smokeless tobacco non-user Start: 05-13-2018 Alcohol intake Current non-dr repairer shoe sticks of alcohol (finding) Start: 1955 Sex Assigned At Not on file C [facility] Sex Assigned At [facility] Other Tobacco smoking status [facility] Tobacco smoking consumption unknown [facility] Clinical Notes 05-27-2022 to 07-27-2023 Cindy Phan, - 07/27/2023 2:15 PM Jacklyn Moore PA-C - 06/23/2022 7:27 AM Jonelle Vasquez APRN.TITLE EXAMINER - 06/04/2022 11:10 AM Giovanna Khalil Research [...] different lens options were explained including the lbv-ml-drqous fees for any upgrades. Intraocular lens (IOL) [...] (RGP) lenses occurred. documented in this encounter [facility] 06-23-2022 Note HNO ID: [id number] Author: Benjamin Moore PA-C Service: ? Author Type: Physician Dress Shoe Inspector Type: Progress Notes Filed: 06/23/2022 7:54 AM Note Text: AMBULATORY TELEPHONE VISIT Skip Hong has consented to this telephone encounter. Patient was unable to connect to [employer] Virtual Visit - call to patient to [...] Time Spent: 45 minutes Benjamin Moore PA-C [facility] 06-23-2022 History of Present illness Narrative AMBULATORY TELEPHONE VISIT Skip Hong has consented to this telephone encounter. Patient was unable to connect to [employer] Virtual Visit - call to patient to [...] Benjamin Moore PA-C documented in this encounter 06-04-2022 Note HNO ID: [id number] Author: Sangeetha Vasquez APRN.TITLE EXAMINER Service: ? Author Type: Nurse Practitioner Type: [...] person or virtual visit whatever patient preference. [facility] 06-04-2022 History of Present illness Narrative [...] Health Provider or Pain Management Provider at [facility]? No If answer is YES please [...] facility where the MRI/CT/myelogram was completed: [place] [address] MRI/CT/myelogram viewable in Epic: No If not, please provide [phone] to fax in imaging reports for review. Also, please inform patient to hand carry imaging disc to appointment. XR (spine) within 12 months: Yes If YES, please ask for the name/address of the facility where the XR was completed: [place] [address] Dr. Humphreys's patients: Have you had previous [...] injections and/or physical therapy was completed Injections: [facility] [address] [place] [address] PT: unable to recall facility Have you [...] where the surgery was completed: Additional Comments [phone] documented in this encounter 06-03-2022 Note HNO ID: [id number] Author: Celeste Khalil Research Coordinator Service: ? Author Type: Research Type: Progress Notes Filed: 06/04/2022 11:31 AM Note Text: Patient name: Skip Hong Are you being referred by a [place] for Spine Health Provider or Pain Management Provider at [facility]? No If answer is YES please [...] facility where the MRI/CT/myelogram was completed: [place] [address] MRI/CT/myelogram viewable in Epic: No If not, please provide [phone] to fax in imaging reports for review. Also, please inform patient to hand carry imaging disc to appointment. XR (spine) within 12 months: Yes If YES,? please ask for the name/address of the facility where the XR was completed: [facility] [place] [address] [place] [address] Dr. Humphreys's patients: Have you had previous [...] injections and/or physical therapy was completed Injections: [facility] [address] [place] [address] PT: unable to recall facility Have you [...] where the surgery was completed: Additional Comments [phone] [facility] 05-27-2022 Evaluation note Encounter Date Diagnosis [...] and agrees. A referral will be sent [facility] Other evaluation note* Diagnosis Fibromyalgia- Primary Mylagia and myositis, unspecified Cervicalgia documented in this encounter Evaluation noteNo InformationNort Presdo Other Evaluation note* Diagnosis Age-related nuclear cataract [...] History arthroscopy shoulder Hospitalization History see above [facility] Other reason for visit NarrativeReferral update - pain [facility] Other Summary Purpose Family History No Family [...] Diagnosis 1 Neck pain (M54.2) Referral Organization [facility] urosurgery Referring Provider First Name Prasad Referring Provider Last Name Maame Referring Provider Specialty Neurologica l Surgery Referred Organization [facility] Pain Managemen t Referred Provider Bentley Bragg Referred Address [address] [place] [id number] Referred Provider Specialty Pain Medicin e Referral Priority Routine General Notes Jenifer Ramírez 022 08:31:51 AM >Received today and sent P2P Esthela Navarro 06/03/2022 02:35:54 PM >fyi patient declined seeing Dr Bragg, she stated she has returned to her previous PM provider in [place] Jenifer Ramírez 06/03/2022 02:59:27 PM >OK, thank you for the update. Telephone encounter was sent Additional Source Comments INFORMATION SOURCE (unrecogn ized section and content) DATE CREATED AUTHOR 07/22/2018 [facility] DATE CREATED AUTHOR AUTHOR'S ORGANIZ ATION 06/23/2022 [facility] DATE CREATED AUTHOR AUTHOR'S ORGANIZ ATION 07/02/2022 [facility] DATE CREATED AUTHOR AUTHOR'S ORGANIZ ATION 01/13/2024 [facility] dical [facility] [facility] DATE CREATED AUTHOR AUTHOR'S ORGANIZ ATION 01/19/2024 [facility] DATE CREATED AUTHOR AUTHOR'S ORGANIZ ATION 01/20/2024 [facility] DATE CREATED AUTHOR AUTHOR'S ORGANIZ ATION 01/27/2024 [facility] Source Comments (unrecognize d section and content) In the event this informatio n is protected by the Federal Confidentiality of Alcohol and Drug Abuse Patient Records regulations: The Federal rules restrict any use of the information to criminally investigate or prosecute any alcohol or drug abuse patient.In the event this information is protected by the Federal Confidentiality of Alcohol and Drug Abuse Patient Records regulations: The Federal rules restrict any use of the information to criminally investigate or prosecute any alcohol or drug abuse patient. 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 [facility] [employer] provides no warranty or guarantee of the accuracy or completeness of information in this document.
== END 2024-04-11 10:59 | disposition home or self-care (01) ==
LOC: MAMMO 10:58
PROVIDERS: PCP Family Medicine; Visit Provider Family Medicine
DX: Z12.31 Encounter for screening mammogram for malignant neoplasm of breast (principal); Z80.3 Family history of malignant neoplasm of breast
CPT/HCPCS: 77063; 77067

== ENCOUNTER 2024-06-06 08:32 | Outpatient (OUT) | payer MEDICARE, SELFPAY ==
--- NOTE | 2024-06-06 08:42 | CT_ITS ---
The [address] [address] Patient Name: CRISTOBAL CALERO MRN: [id number] date: 1955 Sex: F Assigned Patient Location: CT Current Patient Location: Accession/Order Number: [id number] Exam Date: 06/06/2024 08:53 Report Date: 06/09/2024 08:31 At the request of: ANITHA RAMEY Procedure: CT int auditory canals w/o con CT int auditory canals w/o con, 06/06/2024 8:53 AM EST INDICATION: Mastoiditis COMPARISON: Prior MRI of the brain dated 03/14/2024 TECHNIQUE: Axial images of 1 mm were obtained from the mastoids without contrast with coronal and sagittal reconstruction. Dose reduction techniques were achieved by using automated exposure control and/or adjustment of mA and/or kV according to patient size and/or use of iterative reconstruction technique. FINDINGS: The visualized paranasal sinuses are clear. No abnormality of the visualized brain parenchyma is noted. There is status post bilateral lens replacement. The frontal and sphenoethmoidal recesses are patent. No abnormality of bilateral maxillary ostium and ethmoidal infundibulum is noted. The lamina papyracea is unremarkable bilaterally. Left Xiao bullosa is noted. The carotid arteries have normal intracranial pathway. The fovea ethmoidalis is mildly asymmetrical, left higher than right. No pneumatization of anterior clinoid process is noted. The olfactory fossa measures 3 mm right and 4 mm left . The optic nerves show bone coverage. There is no suspicious osteolytic or osteoblastic lesion. Focal calcification in the right retina/sclera. There is status post bilateral lens replacement. The visualized portions of remainder of orbits and mastoid air cells are unremarkable. No suprahyoid lymphadenopathy is noted. CT/CT int auditory canals w/o con IMPRESSION: No abnormality of the mastoid air cells is noted.. Electronically authenticated by: CHAD GUSTAFSON Date: 06/09/2024 08:31
== END 2024-06-06 08:33 | disposition home or self-care (01) ==
LOC: CT 08:32
PROVIDERS: PCP Family Medicine; Visit Provider Family Medicine
DX: H70.90 Unspecified mastoiditis, unspecified ear (principal)
CPT/HCPCS: 70480

== ENCOUNTER 2024-08-10 21:16 | Outpatient (REF) | payer MEDICARE, SELFPAY ==
--- OUTSIDE RECORDS SUMMARY | 2024-08-10 21:22 | XMS_ITS | CCD ---
Author Organization [facility] Care Team Providers Care Water Sander Name Role Phone [employer] orozco Attending Unavailable Anitha Mcgregor Primary Care Unavailable Anitha Mcgregor MD Primary Care Provider [phone] Luli Roy MD (Hist) Unavailable [phone] ANITHA MCGREGOR Primary Care Unavailable BENJAMIN MOORE Attending Unavailable KAROLINE, DR WELSH Consulting Unavailable AIDEY, DR WELSH Primary Care Unavailable HOTyron, DR WELSH Attending Unavailable HOY, DR WELSH Admitting Unavailable ZIEBER, DR TYRELL Alonzo Consulting Unavailable HOY, DR WELSH Consulting Unavailable HOY, DR WELSH Attending Unavailable HOY, DR WELSH Admitting Unavailable HOY, DR WELSH Primary Care Unavailable HOY, DR WELSH Consulting Unavailable AIDEY, DR WELSH Primary Care Unavailable HOY, DR WLESH Attending Unavailable HOY, DR WELSH Admitting Unavailable WEST, DR MARK Almendarez Consulting Unavailable AIDEY, DR WELSH Consulting Unavailable KAROLINE, DR WELSH Primary Care Unavailable KAROLINE, DR WELSH Attending Unavailable KAROLINE, DR WELSH Admitting Unavailable FOLEYENEDELIA Consulting Unavailable AIDEY, DR WELSH Consulting Unavailable AIDEY, DR WELSH Primary Care Unavailable HOY, DR WELSH Attending Unavailable HOY, DR WELSH Admitting Unavailable HOY, DR WELSH Consulting Unavailable KAROLINE, DR WELSH Primary Care Unavailable KAROLINE, DR WELSH Attending Unavailable AIDEY, DR WELSH Admitting Unavailable ZIEBER, DR TYRELL lAonzo Consulting Unavailable AIDEY, DR WELSH Consulting Unavailable AIDEY, DR WELSH Primary Care Unavailable AIDEY, DR WELSH Attending Unavailable HOY, DR WELSH Admitting Unavailable HOY, DR WELSH Consulting Unavailable KAROLINE, DR WELSH Primary Care Unavailable HOY, DR WELSH Attending Unavailable HOY, DR WELSH Admitting Unavailable ZIEBER, DR TYRELL Alonzo Consulting Unavailable LUZ MARIA FIGUEREDO Consulting Unavailable HAY, DR HUMPHREYS Consulting Unavailable [...] DR WELSH Admitting Unavailable WEST, DR MARK Almnedarez Consulting Unavailable HOY, DR WELSH Primary Care [...] Provider UnavailAnitha Montague MD Primary Care Provider [phone] Cindy Phan Admitting Unavailable Cindy Phan Attending Unavailable Cindy Phan Referring Unavailable Cindy Phan Admitting Unavailable Cindy Phan Attending Unavailable Cindy Phan Referring Unavailable Jim ROGERS Oral Unavailable MIGUEL ÁNGEL ROSALES Attending Unavailable CINDY PHAN Attending Unavailable JIM, ORAL Referring Unavailable MIGUEL ÁNGEL ROSALES Attending Unavailable JASVIR SMILEY Attending Unavailable MIGUEL ÁNGEL ROSALES Referring Unavailable CINDY PHAN Attending Unavailable DIVYA DUDLEY Attending Unavailable Allergies Allergy Classification Reported Allergen(s) Allergy Type Date of Onset Reaction(s) Facility (13 sources) Acetaminophen / oxyCODONE; Translations: [OXYCODONE-ACETAMIN OPHEN] Drug Allergy 06-03-20 22 Other: See Comments, Rash [facility] (3 sources) Adhesive Tape; Translations: [ADHESIVE TAPE (ROSINS)] Allergy to substance Other: See Comments [facility] (7 sources) Aspirin; Translations: [ASPIRIN] Drug Allergy 09-14-19 10 Unknown [facility] (3 sources) Butorphanol; Translations: [BUTORPHANOL TARTRATE] Drug Allergy 09-14-19 10 Other: See Comments [facility] (17 sources) Ciprofloxacin; Translations: [CIPROFLOXACIN] Drug Allergy 06-03-20 22 Other: See Comments, Rash [facility] (3 sources) Etodolac; Translations: [ETODOLAC] Drug Allergy 09-14-19 10 [facility] (3 sources) homatropine / HYDROcodone; Translations: [HYDROCODONE-HOMATR OPINE] Drug Allergy Other: See Comments [facility] (3 sources) HYDROmorphone; Translations: [HYDROMORPHONE (BULK)] Drug Allergy 04-10-20 11 Rash [facility] (17 sources) Morphine; Translations: [MORPHINE] Drug Allergy 09-14-19 10 Unknown [facility] (3 sources) Promethazine; Translations: [PROMETHAZINE HCL] Drug Allergy 09-14-19 10 [facility] (1 source) Acetaminophen / oxyCODONE Drug Allergy [facility] (1 source) Aspirin Drug Allergy [facility] (5 sources) Butorphanol; Translations: [Stadol] Drug Allergy Unknown [facility] (1 source) Ciprofloxacin Drug Allergy [facility] (1 source) Desonide Drug Allergy [facility] (3 sources) Etodolac; Translations: [Lodine] Drug Allergy [facility] (1 source) homatropine Drug Allergy [facility] (3 sources) HYDROmorphone; Translations: [Dilaudid] Drug Allergy [facility] (3 sources) Levamisole; Translations: [Phenergan] Drug Allergy [facility] (1 source) Morphine Drug Allergy [facility] (1 source) Bleach (Sodium Hypochlorite) Drug allergy (disorder) 01-11-19 56 [facility] (12 sources) HYDROmorphone Drug Allergy 04-10-20 11 Rash [facility] Other (2 sources) Promethazine Drug Allergy Unknown [facility] Other (2 sources) traMADol Drug Allergy Unknown [facility] Other (10 sources) Aluminum aspirin Drug Allergy 09-14-19 10 Anaphylaxis [facility] Healthcare Work Phone: (10 sources) Butorphanol Drug Allergy 09-14-19 10 Rash [facility] (10 sources) Etodolac Propensity to adverse reactions 09-14-19 10 Rash [facility] (10 sources) Promethazine Drug Allergy 09-14-19 10 [facility] (10 sources) Sulfamethoxazole / Trimethoprim Drug Allergy 06-03-20 22 [facility] (10 sources) Theophylline Drug Allergy 06-03-20 22 [facility] (2 sources) Acetaminophen / oxyCODONE; Translations: [Percocet 5/325] Drug Allergy [facility] Repository (2 sources) Adhesive Tape; Translations: [Tape] Propensity to adverse reactions (disorder) [facility] Rep[facility] (2 sources) homatropine / HYDROcodone; Translations: [Hydromet] Drug Allergy [facility] Rep[facility] (6 sources) Citalopram Drug Allergy 06-20-19 25 [facility] Medications Current Medications Medication Drug Class(es) Dates Sig (Normalized) Sig (Original) acetaminophen 500 mg oral tablet (9 sources) take 1 tablet by mouth every six hours as needed acetaminophen (Tylenol) 500 MG tablet Take 500 mg by mouth every 6 (six) hours if needed Active acetaminophen 325 mg / oxyCODONE hydrochloride 5 mg oral tablet (2 sources) Opioid Agonist oxyCODONE-Acetam in ophen 5-325 MG Oral for 7 Days Active clopidogrel 75 mg oral tablet (7 sources) P2Y12 Platelet Inhibitor Start: 10-30-2023 Plavix 75 MG tablet 1 (one) time each day at the same time 10/30/2023 Active diazePAM 5 mg oral tablet (9 sources) Benzodiazepine Start: 03-07-2024 diazePAM (Valium) 5 MG tablet every 8 (eight) hours 03/07/2024 Active diazePAM 10 MG T MATT 1 TABLET BY MOUTH 60 MINUTES prior to procedure Oral for 1 Days Active docusate sodium 100 mg oral capsule (7 sources) take 1 capsule by mouth in the morning Docusate Sodium (DSS) 100 MG capsule Take 100 mg by mouth in the morning and 100 mg in the evening. Active gabapentin 100 mg oral capsule (10 sources) Anti-epileptic Agent Start: 03-27-20 gabapentin (Neurontin) 100 MG capsule 03/27/2023 Active gentamicin 3 mg/ml ophthalmic solution (5 sources) Start: 02-01-20 End: 06-20-19 take 1 drop(s) into the eye(s) five times daily gentamicin (Garamycin) 0.3 % ophthalmic solution Indications: Age-related nuclear cataract of both eyes instill 1 DROP IN THE LEFT EYE FIVE TIMES DAILY FOR 10 DAYS 5 mL 1 02/01/2024 06/20/2024 Discontinued (Therapy completed) ibuprofen 200 mg oral tablet (11 sources) Nonsteroidal Anti-inflammatory Drug take 1 tablet by mouth every six hours as needed ibuprofen 200 MG tablet Take 200 mg by mouth every 6 (six) hours if needed Active Comment on above: Take 200 mg by mouth every 6 hours as needed. liothyronine sodium 0.005 mg oral tablet (10 sources) l-Triiodothyronine Start: 04-24-20 liothyronine (Cytomel) 5 MCG tablet 04/24/2023 Active omeprazole 20 mg delayed release oral capsule (7 sources) Proton Pump Inhibitor End: 06-20-19 take 1 capsule by mouth in the morning omeprazole (PriLOSEC) [address] capsule Take 20 mg by mouth in the morning. 06/20/2024 Discontinued (Therapy completed) Comment on above: Take 20 mg by mouth once daily. pantoprazole 40 mg delayed release oral tablet (7 sources) Proton Pump Inhibitor Start: 04-28-20 24 pantoprazole (Protonix) 40 MG EC tablet 1 (one) time each day at the same time 04/28/2024 Active prednisoLONE acetate 10 mg/ml ophthalmic suspension (4 sources) Corticosteroid Start: 02-05-20 24 End: 06-20-19 25 take 1 drop(s) into the eye(s) four times daily at bedtime prednisoLONE acetate (Pred-Forte) 1 % ophthalmic suspension Indications: Age-related nuclear cataract of both eyes instill 1 DROP IN BOTH EYES FOUR TIMES DAILY (IN THE MORNING, at noon, IN THE EVENING, and BEFORE bedtime) FOR 14 DAYS 5 mL 1 02/05/2024 06/20/2024 Discontinued (Therapy completed) promethazine hydrochloride 25 mg oral tablet (9 sources) Phenothiazine Start: 03-07-20 take 1 tablet by mouth every six hours as needed promethazine (Phenergan) 25 MG tablet 1 tablet as needed Orally q6h for 5 days 03/07/2024 Active take 1 tablet by charmaine th every six hours as needed promethazine (PHENERGAN) 25 mg tablet Ta ke 25 mg by mouth every 6 hours as needed. 0 Active Comment on above: Take 25 mg by mouth every 6 hours as needed. rimegepant 75 mg disintegrating oral tablet (7 sources) Start: take 1 tablet by mouth every two hours Rimegepant Sulfate (Nurtec) 75 MG tablet dispersible 1 tablet on the tongue and allow to dissolve Orally Repeat in 2 hours if necc, max 2/day for 10 days 03/07/2024 Active SUMAtriptan 100 mg oral tablet (9 sources) Serotonin-1b and Serotonin-1d Receptor Agonist take 1 tablet by mouth once SUMAtriptan (Imitrex) 100 MG tablet Take 100 mg by mouth 1 (one) time if needed for migraine Active Tylenol Extra Strength 500 MG (2 sources) take 1 tablet by mouth every six hours as needed Tylenol Extra Strength 500 MG 1 tablet as needed Orally every 6 hrs Active divalproex sodium 125 mg delayed release oral tablet (6 sources) Mood Stabilizer, Anti-epileptic Agent take 1 tablet by mouth in the morning, then take 1 tablet by mouth in the evening, then take 1 tablet by mouth at bedtime divalproex (Depakote) 125 MG EC tablet Take 125 mg by mouth in the morning and 125 mg in the evening and 125 mg before bedtime. Do not crush, chew, or split.. Active Completed/Discontinued Medications Medication Drug Class(es) Dates [...] th every 8 hours as needed. amylase 316451 unt / lipase 77338 unt / protease 87584 unt delayed release oral capsule (2 sources) lipase-protease- am ylase (CREON) 24,000-76,000 -120,000 unit cpDR Take by mouth three times daily with meals. 0 Active Comment on above: Take by mouth three times daily with meals. calcium carb/vit d3/minerals(CALTRATE 600+D PLUS MINERALS 600 MG (1,500 MG)-400 UNIT CHEWABLE TAB) (2 sources) Start: 09-13-2009 calcium carb/vit d3/minerals(CALTRA TE 600+D PLUS MINERALS 600 MG (1,500 MG)-400 UNIT CHEWABLE TAB) Take one(1) tablet daily. 0 09/13/2009 Active Comment on above: Take one(1) tablet d aily. CLOTRIMAZOLE/BETAMET HASONE DIP (CLOTRIMAZOLE-BETAME THASONE TOPICAL) (2 sources) CLOTRIMAZOLE/BET AM ETHASONE DIP [...] the tongue before meals and at bedtime. predniSONE 10 mg oral tablet (2 sources) Start: 04-07-2018 take 4 tablets by mouth once daily, then take 0.5 tablet by mouth every week predniSONE (DELTASONE) 10 mg tablet TAKE 4 TABLETS BY MOUTH DAILY FOR 2 WEEKS, then decrease by ONE-HALF TABLET EVERY WEEK 1 04/07/2018 Active Comment on above: TAKE 4 TABLETS BY MO [facility] DAILY FOR 2 WEEKS, then decrease by ONE-HALF TABLET EVERY WEEK rosuvastatin calcium 10 mg oral tablet (2 [...] Problem Classification Problem Date Documented Date Episodic/Chronic Acute bronchitis (2 sources) Acute bronchitis; Translations: [Acute bronchitis] Episodic Anxiety disorders (2 sources) Anxiety; Translations: [Anxiety disorder, unspecified] 07-20-2024 Chronic Cataract (13 sources) Bilateral age-related nuclear cataracts; Translations: [Age-related nuclear cataract, bilateral] Onset: 07-27-19 24 07-27-2023 Chronic Congestive heart failure; nonhypertensive (1 source) Unspecified diastolic (congestive) heart failure; Translations: [UNSPECIFIED DIASTOLIC HEART FAILURE] Onset: 02-24-20 Chronic Delirium, dementia, and amnestic and other cognitive disorders (9 sources) Dementia; Translations: [Unspecified dementia without behavioral disturbance] Onset: 10-08-19 24 10-08-2023 Chronic Disorders of lipid metabolism (1 source) Pure hypercholesterolemia, unspecified; Translations: [PURE HYPERCHOLESTEROLEMIA UNSPEC] Onset: 06-19-19 Chronic Diverticulosis and diverticulitis (2 sources) Diverticular disease of colon; Translations: [Diverticulosis of colon] Chronic Esophageal disorders (1 source) Gastro-esophageal reflux disease without esophagitis; Translations: [GERD WITHOUT ESOPHAGITIS] Onset: 06-19-19 Chronic Headache; including migraine (2 sources) Pain in face; Translations: [Left facial pain] 06-20-2024 Episodic Hypertension with complications and secondary hypertension (1 [...] 06-19-19 Episodic Other aftercare (1 source) Other correction (current) drug therapy; Translations: [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] Onset: 06-19-19 Episodic Other gastrointestinal disorders (1 source) Irritable bowel syndrome without diarrhea; Translations: [IRRITABLE BOWEL SYND W/O DIARRHEA] Onset: 06-19-19 Chronic Other gastrointestinal disorders (2 sources) Diarrhea; Translations: [Diarrhea] Episodic Other inflammatory condition of skin (1 source) Psoriasis, unspecified; Translations: [PSORIASIS UNSPECIFIED] Onset: 06-19-19 Chronic Other nervous system disorders (9 sources) Bilateral carpal tunnel syndrome; Translations: [Carpal tunnel syndrome, bilateral upper limbs] Onset: 10-08-19 24 10-08-2023 Chronic Other nutritional; endocrine; and metabolic disorders (1 source) Disorder of urea cycle metabolism, unspecified; Translations: [DISORDER UREA CYCLE METABOLISM UNS] Onset: 02-13-20 Chronic Pancreatic disorders (not diabetes) (9 sources) Idiopathic chronic pancreatitis; Translations: [Other chronic pancreatitis] Onset: 05-13-20 18 05-13-2018 Chronic Residual codes; unclassified (1 source) Acquired absence of other specified parts of digestive tract; Translations: [ACQ ABSENCE OTH PART DIGESTV TRACT] Onset: 06-19-19 Episodic Residual codes; unclassified (1 source) Acquired absence of both cervix and uterus; Translations: [ACQUIRED ABSENCE BOTH CERVIX AND UTERUS] Onset: 06-19-19 Episodic Residual codes; unclassified (2 sources) Memory impairment; Translations: [Other amnesia] 07-20-2024 Episodic Spondylosis; intervertebral disc disorders; other back problems (8 sources) Other spondylosis with radiculopathy, cervical region; Translations: [Cervical spondylosis without myelopathy] Onset: 08-15-19 22 06-17-2024 Chronic Unclassified (2 sources) COUGH, UNSPECIFIED; Translations: [COUGH, UNSPECIFIED] Onset: 06-19-19 Unclassified (1 source) CONTACT W/AND (SUSP) EXPOS COVID-19; Translations: [CONTACT W/AND (SUSP) EXPOS COVID-19] Onset: 02-13-20 Viral infection (1 source) COVID-19; Translations: [COVID-19] Onset: 09-03-19 22 Past or Other Problems Problem Classification Problem Date Documented Da te Episodic/Chronic Abdominal pain (17 sources) Abdominal pain; Translations: [Unspecified abdominal pain] Onset: 09-20-2009 09-20-2009 Episodic Cardiac dysrhythmias (1 source) Bradycardia, unspecified; Translations: [...] Onset: 02-12-2022 Episodic Other connective tissue disease (10 sources) Fibromyalgia; Translations: [Fibromyalgia] Onset: 09-20-2009 09-20-2009 Episodic Other connective tissue disease (1 source) [...] MALIG NEOPLASM OF BREAST] Onset: 03-28-2022 Episodic Spondylosis; intervertebral disc disorders; other back problems (14 sources) Neck pain; Translations: [Cervicalgia] Onset: 05-20-2022 Episodic Unclassified (1 source) COUGH, UNSPECIFIED; Translations: [...] mGy = na DAP = na Normal [facility] BMPon 01-18-2024 Anion gap [Moles/Vol] 10 mmol/L Normal 6-16 [facility] Comment on above: Performed By: #### 2 [id number] #### [facility] [address] [place] [address] Calcium [Mass/Vol] 9.6 mg/dL Normal 8.9-11.1 [facility] Comment on above: Performed By: #### 2 [id number] #### [facility] [address] [place] [address] Chloride [Moles/Vol] 107 mmol/L Normal 101-111 [facility] Comment on above: Performed By: #### 2 [id number] #### [facility] [address] [place] [address] CO2 [Moles/Vol] 26 mmol/L Normal 21-31 [facility] Comment on above: Performed By: #### 2 [id number] #### [facility] [address] [place] [address] Creatinine [Mass/Vol] 0.9 mg/dL Normal 0.5-1.3 [facility] Comment on above: Performed By: #### 2 [id number] #### [facility] [address] [place] [address] Glucose [Mass/Vol] 95 mg/dL Normal 55-199 [facility] Comment on above: Performed By: #### 2 [id number] #### [facility] [address] [place] [address] Potassium [Moles/Vol] 3.9 mmol/L Normal 3.5-5.3 [facility] Comment on above: Performed By: #### 2 [id number] #### [facility] [address] [place] [address] Sodium [Moles/Vol] 139 mmol/L Normal 135-145 [facility] Comment on above: Performed By: #### 2 [id number] #### [facility] [address] [place] [address] Urea nitrogen [Mass/Vol] 9 mg/dL Normal 5-21 [facility] Comment on above: Performed By: #### 2 [id number] #### [facility] [address] [place] [address] Urea nitrogen/Creatinine [Mass ratio] 10 No Units Normal 10-20 [facility] Comment on above: Performed By: #### 2 [id number] #### [facility] [address] [place] [address] CBC w/Indiceson 01-18-2024 Erythrocyte distribution width (RBC) [Ratio] 14.5 % High 10.9-14.2 [facility] Comment on above: Performed By: #### 2 [id number] #### [facility] [address] [place] [address] Hematocrit (Bld) [Volume fraction] 43.1 % Normal 34.0-46.0 [facility] Comment on above: Performed By: #### 2 [id number] #### [facility] [address] [place] [address] Hemoglobin (Bld) [Mass/Vol] 14.5 g/dL Normal 12.0-16.0 [facility] Comment on above: Performed By: #### 2 [id number] #### [facility] [address] [place] [address] MCH (RBC) [Entitic mass] 30.6 pg Normal 27.0-34.0 [facility] Comment on above: Performed By: #### 2 [id number] #### [facility] [address] [place] [address] MCHC (RBC) [Mass/Vol] 33.6 g/dL Normal 31.4-36.0 [facility] Comment on above: Performed By: #### 2 [id number] #### [facility] [address] [place] [address] MCV (RBC) [Entitic vol] 91.0 fL Normal 80.0-100.0 [facility] Comment on above: Performed By: #### 2 [id number] #### [facility] [address] [place] [address] Platelet mean volume (Bld) [Entitic vol] 7.5 fL Normal 6.4-10.8 [facility] Comment on above: Performed By: #### 2 [id number] #### [facility] [address] [place] [address] Platelets (Bld) [#/Vol] 300.0 E9/L Normal 150.0-500.0 [facility] Comment on above: Performed By: #### 2 [id number] #### [facility] [address] [place] [address] RBC (Bld) [#/Vol] 4.7 E12/L Normal 4.3-5.9 [facility] Comment on above: Performed By: #### 2 [id number] #### [facility] [address] [place] [address] RBC size Nom (Bld) NORMAL Invalid Interpretation Code [facility] Comment on above: Performed By: #### 2 [id number] #### [facility] [address] [place] [address] WBC corrected for nucl RBC Auto (Bld) [#/Vol] 5.9 E9/L Normal 4.0-11.0 [facility] Comment on above: Performed By: #### 2 [id number] #### [facility] [address] [place] [address] eGFRon 01-18-2024 eGFR 70 mL/min/1.73 m2 Normal >=59 [facility] Comment on above: Order Comment: Order added by Discern Expert. Performed By: #### 1 [id number] #### [facility] [address] [place] [address] AMYLASEon 07-01-2022 Amylase [Catalytic activity/Vol] 117 U/L Critically high 25-115 [facility] Comment on above: Performed By: #### T SH, T7, ALIYAH, LIPA, CMP ####[facility] [address] [place] [phone]. Lawrence Wayne CBC AUTO DIFFon 07-01-2022 BASO # 0.1 103/ul Normal 0.0-0.1 [facility] Comment on above: Performed By: #### C BC ####[facility] [address] [place] [phone]. Lawrence Wayne Basophils/100 WBC (Bld) 0.6 % Normal 0.2-2.0 [facility] Comment on above: Performed By: #### C BC ####[facility] [address] [place] [phone]. Lawrence Wayne EO # 0.1 103/ul Normal 0.0-0.7 [facility] Comment on above: Performed By: #### C BC ####[facility] [address] [place] [address]Dr. Lawrence Wayne Eosinophils/100 WBC (Bld) 0.7 % Critically low 0.9-7.0 [facility] Comment on above: Performed By: #### C BC ####[facility] [address] [place], [place] [address]Dr. Lawrence Wayne Erythrocyte distribution width (RBC) [Ratio] 13.6 % Normal 11.0-15.0 [facility] Comment on above: Performed By: #### C BC ####[facility] [address] [place], [place] [address]Dr. Lawrence Wayne Hematocrit (Bld) [Volume fraction] 45.6 % Normal 36.0-48.0 [facility] Comment on above: Performed By: #### C BC ####[facility] [address] [place], [place] [address]Dr. Lawrence Wayne Hemoglobin (Bld) [Mass/Vol] 15.4 g/dL Normal 12.0-16.0 [facility] Comment on above: Performed By: #### C BC ####[facility] [address] [place], [place] [address]Dr. Lawrence Wayne IG # 0.03 10e3/ul Normal 0.00-0.03 [facility] Comment on above: Performed By: #### C BC ####[facility] [address] [place], [place] [address]Dr. Lawrence Wayne IG % 0.4 % Normal 0.0-0.5 [facility] Comment on above: Performed By: #### C BC ####[facility] [address] [place], [place] [address]Dr. Lawrence Wayne LYMPH # 2.8 103/ul Normal 1.2-3.8 [facility] Comment on above: Performed By: #### C BC ####[facility] [address] [place] [phone]. Lawrence Wayne Lymphocytes/100 WBC (Bld) 33.5 % Normal 20.5-60.0 [facility] Comment on above: Performed By: #### C BC ####[facility] [address] [place] [phone]. Lawrence Wayne MANUAL DIFF REQ NO Normal [facility] Comment on above: Performed By: #### C BC ####[facility] [address] [place] [phone]. Lawrence Tone MCH (RBC) [Entitic mass] 30.1 pg Normal 26.7-34.0 [facility] Comment on above: Performed By: #### C BC ####[facility] [address] [place], [place] [address]Dr. Lawrence Wayne MCHC (RBC) [Mass/Vol] 33.8 g/dL Normal 29.9-35.2 [facility] Comment on above: Performed By: #### C BC ####[facility] [address] [place] [phone]. Lawrence Wayne MCV (RBC) [Entitic vol] 89.2 fL Normal 81.0-99.0 [facility] Comment on above: Performed By: #### C BC ####[facility] [address] [place] [address]Dr. Lawrence Tone MONO # 0.8 103/ul Normal 0.3-0.8 [facility] Comment on above: Performed By: #### C BC ####[facility] [address] [place] [phone]. Lawrence Tone Monocytes/100 WBC (Bld) 9.3 % Normal 1.7-12.0 [facility] Comment on above: Performed By: #### C BC ####[facility] [address] [place], [place] [address]Dr. Lawrence Wayne NEUT # 4.6 103/ul Normal 1.4-6.5 [facility] Comment on above: Performed By: #### C BC ####[facility] [address]fib[address] [place] [phone]. Lawrence Wayne Neutrophils/100 WBC (Bld) 55.5 % Normal 43.0-75.0 [facility] Comment on above: Performed By: #### C BC ####[facility] [address] [place] [phone]. Lawrence Wayne Platelet mean volume (Bld) [Entitic vol] 8.6 fL Critically low 9.5-13.5 [facility] Comment on above: Performed By: #### C BC ####[facility] [address] [place] [phone]. Lawrence Wayne PLT 380 103/ul Normal 150-450 [facility] Comment on above: Performed By: #### C BC ####[facility] [address] [place] [address]Dr. Lawrence Wayne RBC 5.11 106/ul Normal 4.20-5.40 [facility] Comment on above: Performed By: #### C BC ####[facility] [address] [place], [place] [id number]. Lawrence Wayne WBC 8.3 103/ul Normal 4.0-11.0 [facility] Comment on above: Performed By: #### C BC ####[facility] [address] [place] [phone]. Lawrence Wayne FREE THYROXINE INDEX T7on FTI 3.28 Normal 1.30-4.50 [facility] Comment on above: Performed By: #### T SH, T7, ALIYHA, LIPA, CMP ####[facility] [address] [place] [phone]. Lawrence Wayne T3U 36.0 % Normal 30.0-39.0 [facility] Comment on above: Performed By: #### T SH, T7, ALIYAH, LIPA, CMP ####[facility] [address] [place] [phone]. Lawrence Wayne T4 [Mass/Vol] 9.10 ug/dL Normal 4.80-13.90 [facility] Comment on above: Performed By: #### T SH, T7, ALIYAH, LIPA, CMP ####[facility] [address] [place] [address]Dr. Lawrence Wayne LIPASEon 07-01-2022 Lipase [Catalytic activity/Vol] 125.0 U/L Normal 73.0-393.0 [facility] Comment on above: Performed By: #### T SH, T7, ALIYAH, LIPA, CMP ####[facility] [address] [place] [address]Dr. Lawrence Wayne PROF 14(COMP METB)on 023 Albumin [Mass/Vol] 3.8 g/dL Normal 3.4-5.0 [facility] Comment on above: Performed By: #### T SH, T7, ALIYAH, LIPA, CMP ####[facility] [address] [place] [address]Dr. Lawrence Wayne Albumin/Globulin [Mass ratio] 1.1 {ratio} Normal [facility] Comment on above: Performed By: #### T SH, T7, ALIYAH, LIPA, CMP ####[facility] [address] [place] [address]Dr. Lawrence Wayne ALP [Catalytic activity/Vol] 104 U/L Normal 46-116 [facility] Comment on above: Performed By: #### T SH, T7, ALIYAH, LIPA, CMP ####[facility] [address] [place] [address]Dr. Lawrence Wayne ALT [Catalytic activity/Vol] 36 U/L Normal 14-59 [facility] Comment on above: Performed By: #### T SH, T7, ALIYAH, LIPA, CMP ####[facility] [address] [place] [address]Dr. Lawrence Wayne Anion gap [Moles/Vol] 11.7 mmol/L Normal [facility] Comment on above: Performed By: #### T SH, T7, ALIYAH, LIPA, CMP ####[facility] [address] [place] [address]Dr. Lawrence Wayne AST [Catalytic activity/Vol] 22 U/L Normal 15-37 [facility] Comment on above: Performed By: #### T SH, T7, ALIYAH, LIPA, CMP ####[facility] [address] [place] [address]Dr. Lawrence Wayne Bilirubin [Mass/Vol] 0.5 mg/dL Normal 0.2-1.0 [facility] Comment on above: Performed By: #### T SH, T7, ALIYAH, LIPA, CMP ####[facility] [address] [place], [place] [address]Dr. Lawrence Wayne Calcium [Mass/Vol] 9.8 mg/dL Normal 8.5-10.1 [facility] Comment on above: Performed By: #### T SH, T7, ALIYAH, LIPA, CMP ####[facility] [address] [place], [place] [address]Dr. Lawrence Wayne Chloride [Moles/Vol] 102 mmol/L Normal 98-107 [facility] Comment on above: Performed By: #### T SH, T7, ALIYAH, LIPA, CMP ####[facility] [address] [place], [place] [address]Dr. Lawrence Wayne CO2 [Moles/Vol] 29.3 mmol/L Normal 21.0-32.0 [facility] Comment on above: Performed By: #### T SH, T7, ALIYAH, LIPA, CMP ####[facility] [address] [place] [address]Dr. Lawrence Wayne Creatinine [Mass/Vol] 0.88 mg/dL Normal 0.55-1.02 [facility] Comment on above: Performed By: #### T SH, T7, ALIYAH, LIPA, CMP ####[facility] [address] [place] [address]Dr. Lawrence Wayne EGFR-AF TURKISH >60 Normal >=60 [facility] Comment on above: Performed By: #### T SH, T7, ALIYAH, LIPA, CMP ####[facility] [address] [place] [address]Dr. Lawrence Wayne EGFR-NON AF TURKISH >60 Normal >=60 [facility] Comment on above: Performed By: #### T SH, T7, ALIYAH, LIPA, CMP ####[facility] [address] [place] [address]Dr. Laralan Wayne Globulin (S) [Mass/Vol] 3.5 g/dL Normal [facility] Comment on above: Performed By: #### T SH, T7, ALIYAH, LIPA, CMP ####[facility] [address] [place] [address]Dr. Laralan Wayne Glucose [Mass/Vol] 98 mg/dL Normal 74-106 [facility] Comment on above: Performed By: #### T SH, T7, ALIYAH, LIPA, CMP ####[facility] [address] [place], [place] [address]Dr. Laralan Wayne Potassium [Moles/Vol] 3.9 mmol/L Normal 3.5-5.1 [facility] Comment on above: Performed By: #### T SH, T7, ALIYAH, LIPA, CMP ####[facility] [address] [place], [place] [address]Dr. Laralan Wayne Protein [Mass/Vol] 7.3 g/dL Normal 6.4-8.2 [facility] Comment on above: Performed By: #### T SH, T7, ALIYAH, LIPA, CMP ####[facility] [address] [place] [address]Dr. Laralan Wayne Sodium [Moles/Vol] 139 mmol/L Normal 136-145 [facility] Comment on above: Performed By: #### T SH, T7, ALIYAH, LIPA, CMP ####[facility] [address] [place] [address]Dr. Laralan Wayne Urea nitrogen [Mass/Vol] 11.0 mg/dL Normal 7.0-18.0 [facility] Comment on above: Performed By: #### T SH, T7, ALIYAH, LIPA, CMP ####[facility] [address] [place] [address]Dr. Laralan Wayne Urea nitrogen/Creatinine [Mass ratio] 12.5 mg/mg Normal [facility] Comment on above: Performed By: #### T SH, T7, ALIYAH, LIPA, CMP ####[facility] [address] [place] [address]Dr. Lawrence Wayne TSHon 07-01-2022 TSH 1.744 uIU/mL Normal 0.358-3.740 [facility] Comment on above: Performed By: #### T SH, T7, ALIYAH, LIPA, CMP ####[facility] [address] [place] [address]DrKim Wayne CBC AUTO DIFFon 06-17-2022 BASO # 0.0 103/ul Normal 0.0-0.1 [facility] Comment on above: Performed By: #### A MY, CMP, LIPA #### [facility] Laboratory [address] [place] [address] Dr. Lawrence Wayne Basophils/100 WBC (Bld) 0.4 % Normal 0.2-2.0 [facility] Comment on above: Performed By: #### A MY, CMP, LIPA #### [facility] Laboratory [address] [address] [address] Lawrence Wayne EO # 0.0 103/ul Normal 0.0-0.7 [facility] Comment on above: Performed By: #### A MY, CMP, LIPA #### [facility] Laboratory [address] [address] [address] Lawrence Wayne Eosinophils/100 WBC (Bld) 0.8 % Critically low 0.9-7.0 [facility] Comment on above: Performed By: #### A MY, CMP, LIPA #### [facility] Laboratory [address] [address] [address] Lawrence Wayne Erythrocyte distribution width (RBC) [Ratio] 13.2 % Normal 11.0-15.0 [facility] Comment on above: Performed By: #### A MY, CMP, LIPA #### [facility] Laboratory [address] [address] [address] Lawrence Wayne Hematocrit (Bld) [Volume fraction] 43.1 % Normal 36.0-48.0 [facility] Comment on above: Performed By: #### A MY, CMP, LIPA #### [facility] Laboratory [address] [place] [address] Dr. Lawrence Wayne Hemoglobin (Bld) [Mass/Vol] 15.1 g/dL Normal 12.0-16.0 [facility] Comment on above: Performed By: #### A MY, CMP, LIPA #### [facility] Laboratory [address] [place] [address] Dr. Lawrence Wayne IG # 0.03 10e3/ul Normal 0.00-0.03 [facility] Comment on above: Performed By: #### A MY, CMP, LIPA #### [facility] Laboratory [address] [place] [address] Dr. Lawrence Wayne IG % 0.6 % Critically high 0.0-0.5 [facility] [place] [facility] Comment on above: Performed By: #### A MY, CMP, LIPA #### [facility] Laboratory [address] [place] [address] Dr. Lawrence Wayne LYMPH # 1.1 103/ul Critically low 1.2-3.8 [facility] Comment on above: Performed By: #### A MY, CMP, LIPA #### [facility] Laboratory [address] [place] [address] Dr. Lawrence Wayne Lymphocytes/100 WBC (Bld) 22.0 % Normal 20.5-60.0 [facility] Comment on above: Performed By: #### A MY, CMP, LIPA #### [facility] Laboratory [address] [place] [address] Dr. Lawrence Wayne MANUAL DIFF REQ NO Normal [facility] Comment on above: Performed By: #### A MY, CMP, LIPA #### [facility] Laboratory [address] [place] [address] Dr. Lawrence Wayne MCH (RBC) [Entitic mass] 30.3 pg Normal 26.7-34.0 [facility] Comment on above: Performed By: #### A MY, CMP, LIPA #### [facility] Laboratory [address] [place] [address] Dr. Lawrence Wayne MCHC (RBC) [Mass/Vol] 35.0 g/dL Normal 29.9-35.2 [facility] Comment on above: Performed By: #### A MY, CMP, LIPA #### [facility] Laboratory [address] [place] [address] Dr. Lawrence Wayne MCV (RBC) [Entitic vol] 86.4 fL Normal 81.0-99.0 [facility] Comment on above: Performed By: #### A MY, CMP, LIPA #### [facility] Laboratory [address] [place] [address] Dr. Lawrence Wayne MONO # 0.7 103/ul Normal 0.3-0.8 [facility] Comment on above: Performed By: #### A MY, CMP, LIPA #### [facility] Laboratory [address] [place] [address] Dr. Lawrence Wayne Monocytes/100 WBC (Bld) 13.6 % Critically high 1.7-12.0 [facility] Comment on above: Performed By: #### A MY, CMP, LIPA #### [facility] Laboratory [address] [place] [address] Dr. Lawrence Wayne NEUT # 3.2 103/ul Normal 1.4-6.5 [facility] Comment on above: Performed By: #### A MY, CMP, LIPA #### [facility] Laboratory [address] [place] [address] Dr. Lawrence Wayne Neutrophils/100 WBC (Bld) 62.6 % Normal 43.0-75.0 [facility] Comment on above: Performed By: #### A MY, CMP, LIPA #### [facility] Laboratory [address] [place] [address] Dr. Lawrence Wayne Platelet mean volume (Bld) [Entitic vol] 9.0 fL Critically low 9.5-13.5 [facility] Comment on above: Performed By: #### A MY, CMP, LIPA #### [facility] Laboratory [address] [place] [address] Dr. Lawrence Wayne PLT 257 103/ul Normal 150-450 [facility] Comment on above: Performed By: #### A MY, CMP, LIPA #### [facility] Laboratory [address] [place] [address] Dr. Lawrence Wayne RBC 4.99 106/ul Normal 4.20-5.40 [facility] Comment on above: Performed By: #### A MY, CMP, LIPA #### [facility] Laboratory [address] [place] [address] Dr. Lawrence Wayne WBC 5.1 103/ul Normal 4.0-11.0 [facility] Comment on above: Performed By: #### A MY, CMP, LIPA #### [facility] [address] [place] [address] Dr. Lawrence Wayne INFLUENZA A AND B AGon 06-17 [facility] SEE BELOW Normal [facility] Comment on above: Result Comment: Nega tive for Flu B protein antigen. Infection due to Flu B cannot be ruled out. Flu B antigen in the sample may be below the detection limit of the test. Performed By: #### A MY, CMP, LIPA #### [facility] [address] [place] [address] Dr. Lawrence Wayne INFLUENZA A AG Positive Abnormal NEGATIVE SEE COMMENT [facility] Comment on above: Performed By: #### A MY, CMP, LIPA #### [facility] [address] [place] [address] Dr. Lawrence Wayne INFLUENZA B AG Negative Normal NEGATIVE SEE COMMENT [facility] Comment on above: Performed By: #### A MY, CMP, LIPA #### [facility] [address] [place] [address] Dr. Lawrence Wayne PROF 14(COMP METB)on 023 Albumin [Mass/Vol] 3.4 g/dL Normal 3.4-5.0 [facility] Comment on above: Performed By: #### A MY, CMP, LIPA #### [facility] [address] [place] [address] Dr. Lawrence Wayne Albumin/Globulin [Mass ratio] 0.9 {ratio} Normal [facility] Comment on above: Performed By: #### A MY, CMP, LIPA #### [facility] [address] [address] [address] Lawrence Wayne ALP [Catalytic activity/Vol] 94 U/L Normal 46-116 [facility] Comment on above: Performed By: #### A MY, CMP, LIPA #### [facility] [address] [address] [address] Lawrence Wayne ALT [Catalytic activity/Vol] 36 U/L Normal 14-59 [facility] Comment on above: Performed By: #### A MY, CMP, LIPA #### [facility] Laboratory [address] [address] [address] Lawrence Wayne Anion gap [Moles/Vol] 18.9 mmol/L Normal [facility] Comment on above: Performed By: #### A MY, CMP, LIPA #### [facility] Laboratory [address] [address] [address] Lawrence Wayne AST [Catalytic activity/Vol] 32 U/L Normal 15-37 [facility] Comment on above: Performed By: #### A MY, CMP, LIPA #### [facility] Laboratory [address] [address] [address] Lawrence Wayne Bilirubin [Mass/Vol] 0.4 mg/dL Normal 0.2-1.0 [facility] Comment on above: Performed By: #### A MY, CMP, LIPA #### [facility] Laboratory [address] [address] [address] Lawrence Wayne Calcium [Mass/Vol] 9.1 mg/dL Normal 8.5-10.1 [facility] Comment on above: Performed By: #### A MY, CMP, LIPA #### [facility] Laboratory [address] [address] [address] Lawrence Wayne Chloride [Moles/Vol] 100 mmol/L Normal 98-107 [facility] Comment on above: Performed By: #### A MY, CMP, LIPA #### [facility] Laboratory [address] [address] [address] Lawrence Wayne CO2 [Moles/Vol] 19.7 mmol/L Critically low 21.0-32.0 [facility] Comment on above: Performed By: #### A MY, CMP, LIPA #### [facility] Laboratory [address] [address] [address] Lawrence Wayne Creatinine [Mass/Vol] 1.13 mg/dL Critically high 0.55-1.02 [facility] Comment on above: Performed By: #### A MY, CMP, LIPA #### [facility] Laboratory [address] [place] [address] Dr. Lawrence Wayne EGFR-AF TURKISH 58 mL/min/1.73m2 Critically low >=60 [facility] Comment on above: Performed By: #### A MY, CMP, LIPA #### [facility] Laboratory [address] [address] [address] Lawrence Wayne EGFR-NON AF TURKISH 48 mL/min/1.73m2 Critically low >=60 [facility] Comment on above: Performed By: #### A MY, CMP, LIPA #### [facility] Laboratory [address] [place] [address] Dr. Lawrence Wayne Globulin (S) [Mass/Vol] 3.9 g/dL Normal [facility] Comment on above: Performed By: #### A MY, CMP, LIPA #### [facility] Laboratory [address] [place] [address] Dr. Lawrence Wayne Glucose [Mass/Vol] 105 mg/dL Normal 74-106 [facility] Comment on above: Performed By: #### A MY, CMP, LIPA #### [facility] Laboratory [address] [place] [address] Dr. Lawrence Wayne Potassium [Moles/Vol] 3.6 mmol/L Normal 3.5-5.1 [facility] Comment on above: Performed By: #### A MY, CMP, LIPA #### [facility] Laboratory [address] [place] [address] Dr. Lawrence Wayne Protein [Mass/Vol] 7.3 g/dL Normal 6.4-8.2 [facility] Comment on above: Performed By: #### A MY, CMP, LIPA #### [facility] [address] [place] [address] Dr. Lawrence Wayne Sodium [Moles/Vol] 135 mmol/L Critically low 136-145 Th e [facility] Comment on above: Performed By: #### A GARTH CMP, LIPA #### [facility] Laboratory [address] [address] [address] Lawrence Wayne Urea nitrogen [Mass/Vol] 13.0 mg/dL Normal 7.0-18.0 [facility] Comment on above: Performed By: #### A KARY LIANG, LIPA #### [facility] Laboratory [address] [address] [address] Lawrence Wayne Urea nitrogen/Creatinine [Mass ratio] 11.5 mg/mg Normal [facility] Comment on above: Performed By: #### A KARY LIANG, LIPA #### [facility] [address] [address] [address] Lawrence Wayne MRI CSPINE WO CONon 05-20-20 MRI [facility] WO CON EXAMINATION: MRI CSPINE WO CON [...] Normal [facility] AMYLASEon 05-07-2022 Amylase [Catalytic activity/Vol] 81 U/L Normal 25-115 [facility] Comment on above: Performed By: #### A MY, CMP, LIPA #### [facility] Laboratory [address] [place] [address] Dr. Lawrence Wayne CBC AUTO DIFFon 05-07-2022 BASO # 0.0 103/ul Normal 0.0-0.1 [facility] Comment on above: Performed By: #### A MY, CMP, LIPA #### [facility] Laboratory [address] [place] [address] Dr. Lawrence Wayne Basophils/100 WBC (Bld) 0.8 % Normal 0.2-2.0 [facility] Comment on above: Performed By: #### A MY, CMP, LIPA #### [facility] Laboratory [address] [place] [address] Dr. Lawrence Wayne EO # 0.1 103/ul Normal 0.0-0.7 [facility] Comment on above: Performed By: #### A MY, CMP, LIPA #### [facility] Laboratory [address] [place] [address] Dr. Lawrence Wayne Eosinophils/100 WBC (Bld) 1.5 % Normal 0.9-7.0 [facility] Comment on above: Performed By: #### A MY, CMP, LIPA #### [facility] Laboratory [address] [place] [address] Dr. Lawrence Wayne Erythrocyte distribution width (RBC) [Ratio] 12.7 % Normal 11.0-15.0 [facility] Comment on above: Performed By: #### A MY, CMP, LIPA #### [facility] Laboratory [address] [place] [address] Dr. Lawrence Wayne Hematocrit (Bld) [Volume fraction] 40.5 % Normal 36.0-48.0 [facility] Comment on above: Performed By: #### A MY, CMP, LIPA #### [facility] Laboratory [address] [address] [address] Lawrence Wayne Hemoglobin (Bld) [Mass/Vol] 13.8 g/dL Normal 12.0-16.0 [facility] Comment on above: Performed By: #### A MY, CMP, LIPA #### [facility] Laboratory [address] [address] [address] Lawrence Wayne IG # 0.01 10e3/ul Normal 0.00-0.03 [facility] Comment on above: Performed By: #### A MY, CMP, LIPA #### [facility] [address] [place] [address] Dr. Lawrence Wayne IG % 0.2 % Normal 0.0-0.5 [facility] Comment on above: Performed By: #### A MY, CMP, LIPA #### [facility] Laboratory [address] [place] [address] Dr. Lawrence Wayne LYMPH # 1.7 103/ul Normal 1.2-3.8 [facility] Comment on above: Performed By: #### A MY, CMP, LIPA #### [facility] [address] [address] [address] Lawrence Wayne Lymphocytes/100 WBC (Bld) 32.7 % Normal 20.5-60.0 [facility] Comment on above: Performed By: #### A MY, CMP, LIPA #### [facility] [address] [place] [address] Dr. Lawrence Wayne MANUAL DIFF REQ NO Normal [facility] [place] [facility] Comment on above: Performed By: #### A MY, CMP, LIPA #### [facility] [address] [address] [address] Lawrence Wayne MCH (RBC) [Entitic mass] 30.5 pg Normal 26.7-34.0 [facility] Comment on above: Performed By: #### A MY, CMP, LIPA #### [facility] [address] [place] [address] Dr. Lawrence Wayne MCHC (RBC) [Mass/Vol] 34.1 g/dL Normal 29.9-35.2 [facility] Comment on above: Performed By: #### A MY, CMP, LIPA #### [facility] [address] [place] [address] Dr. Lawrence Wayne MCV (RBC) [Entitic vol] 89.4 fL Normal 81.0-99.0 [facility] Comment on above: Performed By: #### A MY, CMP, LIPA #### [facility] [address] [place] [address] Dr. Lawrence Wayne MONO # 0.6 103/ul Normal 0.3-0.8 [facility] Comment on above: Performed By: #### A MY, CMP, LIPA #### [facility] [address] [place] [address] Dr. Lawrence Wayne Monocytes/100 WBC (Bld) 10.5 % Normal 1.7-12.0 [facility] Comment on above: Performed By: #### A MY, CMP, LIPA #### [facility] [address] [place] [address] Dr. Lawrence Wayne NEUT # 2.9 103/ul Normal 1.4-6.5 [facility] Comment on above: Performed By: #### A MY, CMP, LIPA #### [facility] [address] [place] [address] Dr. Lawrence Wayne Neutrophils/100 WBC (Bld) 54.3 % Normal 43.0-75.0 [facility] Comment on above: Performed By: #### A MY, CMP, LIPA #### [facility] [address] [place] [address] Dr. Lawrence Wayne Platelet mean volume (Bld) [Entitic vol] 9.4 fL Critically low 9.5-13.5 [facility] Comment on above: Performed By: #### A MY, CMP, LIPA #### [facility] [address] [place] [address] Dr. Lawrence Wayne PLT 292 103/ul Normal 150-450 [facility] Comment on above: Performed By: #### A MY, CMP, LIPA #### [facility] [address] [place] [address] Dr. Lawrence Wayne RBC 4.53 106/ul Normal 4.20-5.40 [facility] Comment on above: Performed By: #### A MY, CMP, LIPA #### [facility] [address] [place] [address] Dr. Lawrence Wayne WBC 5.3 103/ul Normal 4.0-11.0 [facility] Comment on above: Performed By: #### A MY, CMP, LIPA #### [facility] [address] [place] [address] Dr. Lawrence Wayne LIPASEon 05-07-2022 Lipase [Catalytic activity/Vol] 86.0 U/L Normal 73.0-393.0 [facility] Comment on above: Performed By: #### A MY, CMP, LIPA #### [facility] [address] [place] [address] Dr. Lawrence Wayne PROF 14(COMP METB)on 022 Albumin [Mass/Vol] 3.7 g/dL Normal 3.4-5.0 [facility] Comment on above: Performed By: #### A MY, CMP, LIPA #### [facility] [address] [place] [address] Dr. Lawrence Wayne Albumin/Globulin [Mass ratio] 1.1 {ratio} Normal [facility] Comment on above: Performed By: #### A MY, CMP, LIPA #### [facility] [address] [place] [address] Dr. Lawrence Wayne ALP [Catalytic activity/Vol] 96 U/L Normal 46-116 [facility] Comment on above: Performed By: #### A MY, CMP, LIPA #### [facility] [address] [place] [address] Dr. Lawrence Wayne ALT [Catalytic activity/Vol] 24 U/L Normal 14-59 [facility] Comment on above: Performed By: #### A MY, CMP, LIPA #### [facility] [address] [place] [address] Dr. Lawrence Wayne Anion gap [Moles/Vol] 8.3 mmol/L Normal [facility] Comment on above: Performed By: #### A MY, CMP, LIPA #### [facility] [address] [address] [address] Lawrence Wayne AST [Catalytic activity/Vol] 19 U/L Normal 15-37 [facility] Comment on above: Performed By: #### A MY, CMP, LIPA #### [facility] [address] [place] [address] Dr. Lawrence Wayne Bilirubin [Mass/Vol] 0.2 mg/dL Normal 0.2-1.0 [facility] Comment on above: Performed By: #### A MY, CMP, LIPA #### [facility] [address] [place] [address] Dr. Lawrence Wayne Calcium [Mass/Vol] 9.1 mg/dL Normal 8.5-10.1 [facility] Comment on above: Performed By: #### A MY, CMP, LIPA #### [facility] [address] [place] [address] Dr. Lawrence Wayne Chloride [Moles/Vol] 103 mmol/L Normal 98-107 [facility] Comment on above: Performed By: #### A MY, CMP, LIPA #### [facility] [address] [place] [address] Dr. Lawrence Wayne CO2 [Moles/Vol] 30.6 mmol/L Normal 21.0-32.0 [facility] Comment on above: Performed By: #### A MY, CMP, LIPA #### [facility] [address] [place] [address] Dr. Lawrence Wayne Creatinine [Mass/Vol] 0.88 mg/dL Normal 0.55-1.02 [facility] Comment on above: Performed By: #### A MY, CMP, LIPA #### [facility] [address] [place] [address] Dr. Lawrence Wayne EGFR-AF TURKISH >60 Normal >=60 [facility] Comment on above: Performed By: #### A MY, CMP, LIPA #### [facility] [address] [address] [address] Lawrence Wayne EGFR-NON AF TURKISH >60 Normal >=60 [facility] Comment on above: Performed By: #### A MY, CMP, LIPA #### [facility] [address] [address] [address] Lawrence Wayne Globulin (S) [Mass/Vol] 3.4 g/dL Normal [facility] Comment on above: Performed By: #### A MY, CMP, LIPA #### [facility] [address] [address] [address] Lawrence Wayne Glucose [Mass/Vol] 94 mg/dL Normal 74-106 [facility] Comment on above: Performed By: #### A MY, CMP, LIPA #### [facility] [address] [place] [address] Dr. Lawrence Wayne Potassium [Moles/Vol] 3.9 mmol/L Normal 3.5-5.1 [facility] Comment on above: Performed By: #### A MY, CMP, LIPA #### [facility] [address] [place] [address] Dr. Lawrence Wayne Protein [Mass/Vol] 7.1 g/dL Normal 6.4-8.2 [facility] Comment on above: Performed By: #### A MY, CMP, LIPA #### [facility] [address] [place] [address] Dr. Lawrence Wayne Sodium [Moles/Vol] 138 mmol/L Normal 136-145 [facility] Comment on above: Performed By: #### A MY, CMP, LIPA #### [facility] [address] [place] [address] Dr. Lawrence Wayne Urea nitrogen [Mass/Vol] 10.0 mg/dL Normal 7.0-18.0 [facility] Comment on above: Performed By: #### A MY, CMP, LIPA #### [facility] [address] [address] [address] Lawrence Wayne Urea nitrogen/Creatinine [Mass ratio] 11.4 mg/mg Normal [facility] Comment on above: Performed By: #### A MY, CMP, LIPA #### [facility] [address] [address] [address] Lawrence Wayne MG MAMM SCREEN 3D QING CADon 03-26-2022 MG MAMM SCREEN 3D QING CAD Patient: SKIP HONG. Exam Date: 03/26/2022 : 1955 Gender:F Ordering : DR RADHA LYMAN . Admission #: [id number] Family : Order #: [id number] CLICK HERE TO VIEW EXAM RADIOLOGY REPORT [...] LOCATION: [facility] BREAST COMPOSITION: Heterogeneously dense,which may obscure small [...] MD on 03/26/2022 at 09:53 Normal [facility] NM STRESS/REST MULTIon 03-24 NM STRESS/REST MULTI Patient: MANISHA HONG. Exam Date: 03/24/2022 : 1955 Gender:F Ordering : DR ANITHA MCGREGOR . Admission #: [id number] Family : Order #: [id number] CLICK HERE TO VIEW EXAM RADIOLOGY REPORT [...] MD on 03/25/2022 at 07:15 Normal [facility] T4, T3U, FTI LABCORPon 02-19 Free Thyroxine Index 2.3 Normal 1.2-4.9 [facility] Comment on above: Performed By: #### A MY, CMP, LIPA #### [facility] [address] [place] [address] Dr. Lawrence Wayne T3 Uptake 28 % Normal 24-39 [facility] Comment on above: Performed By: #### A MY, CMP, LIPA #### [facility] [address] [address] [address] Lawrence Wayne T4 [Mass/Vol] 8.3 ug/dL Normal 4.5-12.0 [facility] Comment on above: Performed By: #### A MY, CMP, LIPA #### [facility] [address] [address] [address] Lawrence Wayne BNPon 02-18-2022 Natriuretic peptide B (Bld) [Mass/Vol] 78.0 pg/mL Normal <=900.0 [facility] Comment on above: Performed By: #### A MY, CMP, LIPA #### [facility] [address] [place], [place] [address] Dr. Lawrence Wayne CBC AUTO DIFFon 02-18-2022 BASO # 0.1 103/ul Normal 0.0-0.1 [facility] Comment on above: Performed By: #### C BC ####[facility] [address] [address]DrKim Wayne Basophils/100 WBC (Bld) 0.9 % Normal 0.2-2.0 [facility] Comment on above: Performed By: #### C BC ####[facility] [address] [address]DrKim Wayne EO # 0.1 103/ul Normal 0.0-0.7 [facility] Comment on above: Performed By: #### C BC ####[facility] [address] [address]DrKim Wayne Eosinophils/100 WBC (Bld) 1.1 % Normal 0.9-7.0 [facility] Comment on above: Performed By: #### C BC ####[facility] [address] [address]DrKim Wayne Erythrocyte distribution width (RBC) [Ratio] 12.6 % Normal 11.0-15.0 [facility] Comment on above: Performed By: #### C BC ####[facility] [address] [address]DrKim Wayne Hematocrit (Bld) [Volume fraction] 44.4 % Normal 36.0-48.0 [facility] Comment on above: Performed By: #### C BC ####[facility] [address] [address]DrKim Wayne Hemoglobin (Bld) [Mass/Vol] 14.7 g/dL Normal 12.0-16.0 [facility] Comment on above: Performed By: #### C BC ####[facility] [address] [id number] Lawrence Wayne IG # 0.02 10e3/ul Normal 0.00-0.03 [facility] Comment on above: Performed By: #### C BC ####[facility] [address] [address]Dr. Lawrence Wayne IG % 0.3 % Normal 0.0-0.5 [facility] Comment on above: Performed By: #### C BC ####[facility] [address] [address]Dr. Lawrence Tone LYMPH # 1.8 103/ul Normal 1.2-3.8 [facility] Comment on above: Performed By: #### C BC ####[facility] [address] [address]Dr. Laraantonio Wayne Lymphocytes/100 WBC (Bld) 26.1 % Normal 20.5-60.0 [facility] Comment on above: Performed By: #### C BC ####[facility] [address] [address]Dr. Lawrence Wayne MANUAL DIFF REQ NO Normal [facility] [place] [facility] Comment on above: Performed By: #### C BC ####[facility] [address] [address]Dr. Lawrence Wayne MCH (RBC) [Entitic mass] 30.2 pg Normal 26.7-34.0 [facility] Comment on above: Performed By: #### C BC ####[facility] [address] [address]Dr. Lawrence Wayne MCHC (RBC) [Mass/Vol] 33.1 g/dL Normal 29.9-35.2 [facility] Comment on above: Performed By: #### C BC ####[facility] [address] [address]Dr. Lawrence Wayne MCV (RBC) [Entitic vol] 91.4 fL Normal 81.0-99.0 [facility] Comment on above: Performed By: #### C BC ####[facility] [address] [place] [id number] Lawrence Wayne MONO # 0.8 103/ul Normal 0.3-0.8 [facility] Comment on above: Performed By: #### C BC ####[facility] [address] [address]Dr. Lawrence Wayne Monocytes/100 WBC (Bld) 11.0 % Normal 1.7-12.0 [facility] Comment on above: Performed By: #### C BC ####[facility] [address] [place], [place] [address]Dr. Lawrence Wayne NEUT # 4.2 103/ul Normal 1.4-6.5 [facility] Comment on above: Performed By: #### C BC ####[facility] [address] [place], [place] [address]Dr. Lawrence Wayne Neutrophils/100 WBC (Bld) 60.6 % Normal 43.0-75.0 [facility] Comment on above: Performed By: #### C BC ####[facility] [address] [place], [place] [address]Dr. Lawrence Wayne Platelet mean volume (Bld) [Entitic vol] 9.2 fL Critically low 9.5-13.5 [facility] Comment on above: Performed By: #### C BC ####[facility] [address] [place], [place] [address]Dr. Lawrence Wayne PLT 322 103/ul Normal 150-450 [facility] Comment on above: Performed By: #### C BC ####[facility] [address] [place], [place] [id number]. Lawrence Wayne RBC 4.86 106/ul Normal 4.20-5.40 [facility] Comment on above: Performed By: #### C BC ####[facility] [address] [place], [place] [address]Dr. Lawrence Wayne WBC 7.0 103/ul Normal 4.0-11.0 [facility] Comment on above: Performed By: #### C BC ####[facility] [address] [place], [place] [address]Dr. Lawrence Wayne IRONon 02-18-2022 Iron [Mass/Vol] 89.0 ug/dL Normal 50.0-170.0 [facility] Comment on above: Performed By: #### A MY, CMP, LIPA #### [facility] [address] [address] [address] Lawrence Wayne PROF 14(COMP METB)on 022 Albumin [Mass/Vol] 4.0 g/dL Normal 3.4-5.0 [facility] Comment on above: Performed By: #### A MY, CMP, LIPA #### [facility] [address] [address] [address] Lawrence Wayne Albumin/Globulin [Mass ratio] 1.1 {ratio} Normal [facility] Comment on above: Performed By: #### A MY, CMP, LIPA #### [facility] [address] [address] [address] Lawrence Wayne ALP [Catalytic activity/Vol] 98 U/L Normal 46-116 [facility] Comment on above: Performed By: #### A MY, CMP, LIPA #### [facility] [address] [address] [address] Lawrence Wayne ALT [Catalytic activity/Vol] 23 U/L Normal 14-59 [facility] Comment on above: Performed By: #### A MY, CMP, LIPA #### [facility] [address] [address] [address] Lawrence Wayne Anion gap [Moles/Vol] 4.9 mmol/L Normal [facility] Comment on above: Performed By: #### A MY, CMP, LIPA #### [facility] [address] [address] [address] Lawrence Wayne AST [Catalytic activity/Vol] 19 U/L Normal 15-37 [facility] Comment on above: Performed By: #### A MY, CMP, LIPA #### [facility] [address] [address] [address] Lawrence Wayne Bilirubin [Mass/Vol] 0.4 mg/dL Normal 0.2-1.0 [facility] Comment on above: Performed By: #### A MY, CMP, LIPA #### [facility] [address] [address] [address] Lawrence Wayne Calcium [Mass/Vol] 9.5 mg/dL Normal 8.5-10.1 [facility] Comment on above: Performed By: #### A MY, CMP, LIPA #### [facility] [address] [address] [address] Lawrence Wayne Chloride [Moles/Vol] 102 mmol/L Normal 98-107 [facility] Comment on above: Performed By: #### A MY, CMP, LIPA #### [facility] [address] [address] [address] Lawrence Wayne CO2 [Moles/Vol] 30.1 mmol/L Normal 21.0-32.0 [facility] Comment on above: Performed By: #### A MY, CMP, LIPA #### [facility] [address] [place] [address] Dr. Lawrence Wayne Creatinine [Mass/Vol] 0.99 mg/dL Normal 0.55-1.02 [facility] Comment on above: Performed By: #### A MY, CMP, LIPA #### [facility] [address] [place] [address] Dr. Lawrence Wayne EGFR-AF TURKISH >60 Normal >=60 [facility] Comment on above: Performed By: #### A MY, CMP, LIPA #### [facility] [address] [place] [address] Dr. Lawrence Wayne EGFR-NON AF TURKISH 56 mL/min/1.73m2 Critically low >=60 [facility] Comment on above: Performed By: #### A MY, CMP, LIPA #### [facility] [address] [place] [address] Dr. Lawrence Wayne Globulin (S) [Mass/Vol] 3.5 g/dL Normal [facility] Comment on above: Performed By: #### A MY, CMP, LIPA #### [facility] [address] [place] [address] Dr. Lawrence Wayne Glucose [Mass/Vol] 100 mg/dL Normal 74-106 [facility] Comment on above: Performed By: #### A MY CMP, LIPA #### [facility] [address] [address] [address] Lawrence Wayne Potassium [Moles/Vol] 4.0 mmol/L Normal 3.5-5.1 [facility] Comment on above: Performed By: #### A MY CMP, LIPA #### [facility] [address] [address] [address] Lawrence Wayne Protein [Mass/Vol] 7.5 g/dL Normal 6.4-8.2 [facility] Comment on above: Performed By: #### A MY CMP, LIPA #### [facility] [address] [place] [address] Dr. Lawrence Wayne Sodium [Moles/Vol] 133 mmol/L Critically low 136-145 [facility] Comment on above: Performed By: #### A MY CMP, LIPA #### [facility] [address] [place] [address] Dr. Lawrence Wayne Urea nitrogen [Mass/Vol] 14.0 mg/dL Normal 7.0-18.0 [facility] Comment on above: Performed By: #### A MY CMP, LIPA #### [facility] [address] [place] [address] Dr. Lawrence Wayne Urea nitrogen/Creatinine [Mass ratio] 14.1 mg/mg Normal [facility] Comment on above: Performed By: #### A MY, CMP, LIPA #### [facility] [address] [place] [address] Dr. Lawrence Wayne TSHon 02-18-2022 TSH 1.273 uIU/mL Normal 0.358-3.740 [facility] Comment on above: Performed By: #### A MY, CMP, LIPA #### [facility] [address] [place] [address] Dr. Lawrence Wayne AMMONIAon 02-07-2022 Ammonia (P) [Mass/Vol] ug/dL Critically low 11-32 [facility] Comment on above: Performed By: #### A MM ####[facility] [address] [address]Dr. Lawrence Wayne AMYLASEon 02-07-2022 Amylase [Catalytic activity/Vol] 88 U/L Normal 25-115 [facility] Comment on above: Performed By: #### A MY, CMP, LIPA #### [facility] [address] [address] [address] Lawrence Wayne BNPon 02-07-2022 Natriuretic peptide B (Bld) [Mass/Vol] 236.0 pg/mL Normal <=900.0 [facility] Comment on above: Performed By: #### A MY, CMP, LIPA #### [facility] [address] [address] [address] Lawrence Wayne CBC AUTO DIFFon 02-07-2022 BASO # 0.0 103/ul Normal 0.0-0.1 [facility] Comment on above: Performed By: #### C BC ####[facility] [address] [address]Dr. Lawrence Wayne Basophils/100 WBC (Bld) 0.7 % Normal 0.2-2.0 [facility] Comment on above: Performed By: #### C BC ####[facility] [address] [address]DrKim Wayne EO # 0.1 103/ul Normal 0.0-0.7 [facility] Comment on above: Performed By: #### C BC ####[facility] [address] [address]DrKim Wayne Eosinophils/100 WBC (Bld) 1.3 % Normal 0.9-7.0 [facility] Comment on above: Performed By: #### C BC ####[facility] [address] [address]DrKim Wayne Erythrocyte distribution width (RBC) [Ratio] 12.7 % Normal 11.0-15.0 [facility] [facility] Comment on above: Performed By: #### C BC ####[facility] Gniawn[address]wu[address] [place], [place] [address]Dr. Lawrence Wayne Hematocrit (Bld) [Volume fraction] 38.7 % Normal 36.0-48.0 [facility] Comment on above: Performed By: #### C BC ####[facility] Cembnoxtfb[address] [place], [place] [address]Dr. Lawrence Wayne Hemoglobin (Bld) [Mass/Vol] 12.4 g/dL Normal 12.0-16.0 [facility] Comment on above: Result Comment: RECE IVING BOLUS AND SALINE Performed By: #### C BC ####[facility] X[address] [place], [place] [address]Dr. Lawrence Wayne IG # 0.01 10e3/ul Normal 0.00-0.03 [facility] Comment on above: Performed By: #### C BC ####[facility] F[address] [place], [place] [address]Dr. Lawrence Wayne IG % 0.2 % Normal 0.0-0.5 [facility] Comment on above: Performed By: #### C BC ####[facility] Qatfa[address]sco[address] [place], [place] [address]Dr. Lawrence Wayne LYMPH # 1.9 103/ul Normal 1.2-3.8 [facility] Comment on above: Performed By: #### C BC ####[facility] [address]xwv[address] [place], [place] [address]Dr. Lawrence Wayne Lymphocytes/100 WBC (Bld) 35.0 % Normal 20.5-60.0 [facility] Comment on above: Performed By: #### C BC ####[facility] Texsncyapg[address] [place], [place] [address]Dr. Lawrence Wayne MANUAL DIFF REQ NO Normal [facility] Comment on above: Performed By: #### C BC ####[facility] Aptj[address] [place], [place] [address]Dr. Lawrence Wayne MCH (RBC) [Entitic mass] 30.2 pg Normal 26.7-34.0 [facility] Comment on above: Performed By: #### C BC ####[facility] [address] [place] [id number]. Lawrence Wayne MCHC (RBC) [Mass/Vol] 32.0 g/dL Normal 29.9-35.2 [facility] Comment on above: Performed By: #### C BC ####[facility] [address] [place] [id number]. Lawrence Wayne MCV (RBC) [Entitic vol] 94.2 fL Normal 81.0-99.0 [facility] Comment on above: Performed By: #### C BC ####[facility] R[address] [place], [place] [id number]. Lawrence Wayne MONO # 0.6 103/ul Normal 0.3-0.8 [facility] Comment on above: Performed By: #### C BC ####[facility] Ozdfhttbci[address] [place], [place] [address]Dr. Laraantonio Wayne Monocytes/100 WBC (Bld) 10.7 % Normal 1.7-12.0 [facility] Comment on above: Performed By: #### C BC ####[facility] N[address] [place], [place] [id number]. Lawrence Wayne NEUT # 2.9 103/ul Normal 1.4-6.5 [facility] Comment on above: Performed By: #### C BC ####[facility] Z[address]myu[address] [place], [place] [address]Dr. Lawrence Tone Neutrophils/100 WBC (Bld) 52.1 % Normal 43.0-75.0 [facility] Comment on above: Performed By: #### C BC ####[facility] [address] [place], [place] [id number]. Lawrence Wayne Platelet mean volume (Bld) [Entitic vol] 9.5 fL Normal 9.5-13.5 [facility] Comment on above: Performed By: #### C BC ####[facility] [address] [place], [place] [id number]. Lawrence Tone PLT 260 103/ul Normal 150-450 [facility] Comment on above: Performed By: #### C BC ####[facility] [address] [place], [place] [address]CnKim Wayne RBC 4.11 106/ul Critically low 4.20-5.40 [facility] [place] [facility] Comment on above: Performed By: #### C BC ####[facility] [address] [place], [place] [address]FuKim Wayne WBC 5.5 103/ul Normal 4.0-11.0 [facility] Comment on above: Performed By: #### C BC ####[facility] [address] [place], [place] [address]RbKim Wayne PROF 14(COMP METB)on 022 Albumin [Mass/Vol] 3.0 g/dL Critically low 3.4-5.0 [facility] Comment on above: Performed By: #### A MY, CMP, LIPA #### [facility] Laboratory [address] [address] [address] Lawrence Wayne Albumin/Globulin [Mass ratio] 1.1 {ratio} Normal [facility] Comment on above: Performed By: #### A MY, CMP, LIPA #### [facility] Laboratory [address] [address] [address] Lawrence Wayne ALP [Catalytic activity/Vol] 77 U/L Normal 46-116 [facility] Comment on above: Performed By: #### A MY, CMP, LIPA #### [facility] Laboratory [address] [address] [address] Lawrence Wayne ALT [Catalytic activity/Vol] 21 U/L Normal 14-59 [facility] Comment on above: Performed By: #### A MY, CMP, LIPA #### [facility] Laboratory [address] [address] [address] Lawrence Wayne Anion gap [Moles/Vol] 10.9 mmol/L Normal [facility] Comment on above: Performed By: #### A MY, CMP, LIPA #### [facility] Laboratory [address] [address] [address] Lawrence Wayne AST [Catalytic activity/Vol] 15 U/L Normal 15-37 [facility] Comment on above: Performed By: #### A MY, CMP, LIPA #### [facility] Laboratory [address] [place] [address] Dr. Lawrence Wayne Bilirubin [Mass/Vol] 0.3 mg/dL Normal 0.2-1.0 [facility] Comment on above: Performed By: #### A MY, CMP, LIPA #### [facility] Laboratory [address] [place] [address] Dr. Lawrence Wayne Calcium [Mass/Vol] 8.4 mg/dL Critically low 8.5-10.1 [facility] Comment on above: Performed By: #### A MY, CMP, LIPA #### [facility] Laboratory [address] [place] [address] Dr. Lawrence Wayne Chloride [Moles/Vol] 110 mmol/L Critically high 98-107 [facility] Comment on above: Performed By: #### A MY, CMP, LIPA #### [facility] Laboratory [address] [place] [address] Dr. Lawrence Wayne CO2 [Moles/Vol] 25.0 mmol/L Normal 21.0-32.0 [facility] Comment on above: Performed By: #### A MY, CMP, LIPA #### [facility] Laboratory [address] [place] [address] Dr. Lawrence Wayne Creatinine [Mass/Vol] 0.87 mg/dL Normal 0.55-1.02 [facility] Comment on above: Performed By: #### A MY, CMP, LIPA #### [facility] Laboratory [address] [place] [address] Dr. Lawrence Wayne EGFR-AF TURKISH >60 Normal >=60 [facility] Comment on above: Performed By: #### A MY, CMP, LIPA #### [facility] Laboratory [address] [place] [address] Dr. Lawrence Wayne EGFR-NON AF TURKISH >60 Normal >=60 [facility] Comment on above: Performed By: #### A MY, CMP, LIPA #### [facility] Laboratory [address] [place] [address] Dr. Lawrence Wayne Globulin (S) [Mass/Vol] 2.8 g/dL Normal [facility] Comment on above: Performed By: #### A MY, CMP, LIPA #### [facility] Laboratory [address] [address] [address] Lawrence Wayne Glucose [Mass/Vol] 96 mg/dL Normal 74-106 [facility] Comment on above: Performed By: #### A MY, CMP, LIPA #### [facility] Laboratory [address] [address] [address] Lawrence Wayne Potassium [Moles/Vol] 3.9 mmol/L Normal 3.5-5.1 [facility] Comment on above: Performed By: #### A MY, CMP, LIPA #### [facility] Laboratory [address] [place] [address] Dr. Lawrence Wayne Protein [Mass/Vol] 5.8 g/dL Critically low 6.4-8.2 [facility] Comment on above: Performed By: #### A MY, CMP, LIPA #### [facility] Laboratory [address] [place] [address] Dr. Lawrence Wayne Sodium [Moles/Vol] 142 mmol/L Normal 136-145 [facility] Comment on above: Performed By: #### A MY, CMP, LIPA #### [facility] Laboratory [address] [place] [address] Dr. Lawrence Wayne Urea nitrogen [Mass/Vol] 11.0 mg/dL Normal 7.0-18.0 [facility] Comment on above: Performed By: #### A MY, CMP, LIPA #### [facility] Laboratory [address] [place] [address] Dr. Lawrence Wayne Urea nitrogen/Creatinine [Mass ratio] 12.6 mg/mg Normal [facility] Comment on above: Performed By: #### A MY, CMP, LIPA #### [facility] Laboratory [address] [place] [address] Dr. Lawrence Wayne AMMONIAon 02-06-2022 Ammonia (P) [Moles/Vol] 44 umol/L Critically high - [facility] Comment on above: Performed By: #### A MY, CMP, LIPA #### [facility] Laboratory [address] [address] [address] Lawrence Wayne AMYLASEon 02-06-2022 Amylase [Catalytic activity/Vol] 89 U/L Normal 25-115 [facility] Comment on above: Performed By: #### M G, CMP, CMADM, BNP, ALIYAH, LIPA #### [facility] Laboratory [address] [address] [address] Lawrence Wayne BNPon 02-06-2022 Natriuretic peptide B (Bld) [Mass/Vol] 103.0 pg/mL Normal <=900.0 [facility] Comment on above: Performed By: #### M G, CMP, CMADM, BNP, ALIYAH, LIPA ####[facility] [address] [place] [address]Dr. Lawrence Wayne CARDIAC ORAL ADMITon 022 CK [Catalytic activity/Vol] 65 U/L Normal 26-192 [facility] Comment on above: Performed By: #### M G, CMP, CMADM, BNP, ALIYAH, LIPA #### [facility] Laboratory [address] [address] [address] Lawrence Wayne CK.MB [Mass/Vol] 1.16 ng/mL Normal <=3.60 [facility] Comment on above: Performed By: #### M G, CMP, CMADM, BNP, ALIYAH, LIPA #### [facility] Laboratory [address] [address] [address] Lawrence Wayne HSTROP <4.0 Normal 4.0-51.3 [facility] Comment on above: Result Comment: CUT- OFF POINTS HAVE BEEN ESTABLISHED BASED ON THE FOURTH UNIVERSAL DEFINITIONS OF MYOCARDIAL INFARCTION. THE UPPER REFERENCE LIMIT (URL) OF TROPONIN, DEFINED THE 99TH PERCENTILE OF cTnI DISTRIBUTION IN A REFERENCE POPULATION, HAS BEEN CONFIRMED THE DECISION THRESHOLD FOR RI DIAGNOSIS. Performed By: #### M G, CMP, CMADM, BNP, ALIYAH, LIPA #### [facility] Laboratory [address] [address] [address] Lawrence Wayne GEORGI 47 ng/mL Normal 9-82 [facility] Comment on above: Performed By: #### M G, CMP, CMADM, BNP, ALIYAH, LIPA #### [facility] Laboratory [address] [place], [place] [address] Dr. Lawrence Wayne CBC AUTO DIFFon 02-06-2022 BASO # 0.1 103/ul Normal 0.0-0.1 [facility] Comment on above: Performed By: #### C BC ####[facility] [address] [place] [address]DrKim Wayne Basophils/100 WBC (Bld) 0.7 % Normal 0.2-2.0 [facility] Comment on above: Performed By: #### C BC ####[facility] [address] [place] [address]Dr. Lawrence Wayne EO # 0.1 103/ul Normal 0.0-0.7 [facility] Comment on above: Performed By: #### C BC ####[facility] [address] [place] [address]Dr. Lawrence Wayne Eosinophils/100 WBC (Bld) 1.1 % Normal 0.9-7.0 [facility] Comment on above: Performed By: #### C BC ####[facility] L[address] [place], [place] [address]DrKim Wayne Erythrocyte distribution width (RBC) [Ratio] 12.6 % Normal 11.0-15.0 [facility] Comment on above: Performed By: #### C BC ####[facility] [address] [place], [place] [address]Dr. Lawrence Wayne Hematocrit (Bld) [Volume fraction] 44.3 % Normal 36.0-48.0 [facility] Comment on above: Performed By: #### C BC ####[facility] [address] [place], [place] [address]DrKim Wayne Hemoglobin (Bld) [Mass/Vol] 14.4 g/dL Normal 12.0-16.0 [facility] Comment on above: Performed By: #### C BC ####[facility] [address] [place], [place] [address]Dr. Lawrence Wayne IG # 0.01 10e3/ul Normal 0.00-0.03 [facility] Comment on above: Performed By: #### C BC ####[facility] [address] [place] [address]DrKim Lawrence Tone IG % 0.1 % Normal 0.0-0.5 [facility] Comment on above: Performed By: #### C BC ####[facility] [address] [place] [address]DrKim Wayne LYMPH # 2.1 103/ul Normal 1.2-3.8 [facility] Comment on above: Performed By: #### C BC ####[facility] [address] [place] [address]DrKim Bermudezantonio Tone Lymphocytes/100 WBC (Bld) 29.6 % Normal 20.5-60.0 [facility] Comment on above: Performed By: #### C BC ####[facility] [address] [place], [place] [address]DrKim Wayne MANUAL DIFF REQ NO Normal [facility] [place] [facility] Comment on above: Performed By: #### C BC ####[facility] [address] [place] [address]DrKim Lawrence Tone MCH (RBC) [Entitic mass] 30.4 pg Normal 26.7-34.0 [facility] Comment on above: Performed By: #### C BC ####[facility] [address] [place], [place] [address]DrKim Lawrence Tone MCHC (RBC) [Mass/Vol] 32.5 g/dL Normal 29.9-35.2 [facility] Comment on above: Performed By: #### C BC ####[facility] [address] [place] [id number] Laranatonio Wayne MCV (RBC) [Entitic vol] 93.7 fL Normal 81.0-99.0 [facility] Comment on above: Performed By: #### C BC ####[facility] Hgut[address]vigvp[address] [place], [place] [address]DrKim Wayne MONO # 0.8 103/ul Normal 0.3-0.8 [facility] Comment on above: Performed By: #### C BC ####[facility] [address] [place] [address]Dr. Lawrence Wayne Monocytes/100 WBC (Bld) 10.6 % Normal 1.7-12.0 [facility] Comment on above: Performed By: #### C BC ####[facility] [address] [place] [address]Dr. Lawrence Wayne NEUT # 4.1 103/ul Normal 1.4-6.5 [facility] Comment on above: Performed By: #### C BC ####[facility] [address] [place] [address]Dr. Lawrence Wayne Neutrophils/100 WBC (Bld) 57.9 % Normal 43.0-75.0 [facility] Comment on above: Performed By: #### C BC ####[facility] [address] [place] [address]Dr. Lawrence Wayne Platelet mean volume (Bld) [Entitic vol] 9.3 fL Critically low 9.5-13.5 [facility] Comment on above: Performed By: #### C BC ####[facility] [address] [place], [place] [address]Dr. Lawrence Wayne PLT 294 103/ul Normal 150-450 [facility] Comment on above: Performed By: #### C BC ####[facility] [address] [place] [address]Dr. Lawrence Wayne RBC 4.73 106/ul Normal 4.20-5.40 [facility] Comment on above: Performed By: #### C BC ####[facility] [address] [place] [id number]. Lawrence Wayne WBC 7.1 103/ul Normal 4.0-11.0 [facility] Comment on above: Performed By: #### C BC ####[facility] [address] [place], [place] [id number]. Lawrence Wayne CULTURE BLOODon 02-06-2022 Microscopic examination of blood, culture Culture Observations: NO GROWTH AT 5 DAYS. Normal [facility] Comment on above: Performed By: #### B LDCX2 ####[facility] [address] [place] [address]Dr. Lawrence Wayne Microscopic examination of blood, culture Culture Observations: NO GROWTH AT 5 DAYS. Normal [facility] Comment on above: Performed By: #### B LDCX1 ####[facility] [address] [place] [phone]. Lawrence Wayne CULTURE URINEon 02-06-2022 CULTURE URINE Culture Observations : NO GROWTH. Normal [facility] Comment on above: Performed By: #### U RCX ####[facility] [address] [place], [place] [address]Dr. Lawrence Tone Covid-19 PCR (CVDTB)on 01-14 SARS-CoV-2 (COVID-19) RNA EVELIA+probe Ql (Unsp spec) Not detected Normal NOT DETECTED [facility] Comment on above: Result Comment: When diagnostic [...] for this test is supported by the [place] of Health and Human Service's declaration that [...] C VDTBH ####[facility] [address] [place] [phone]. Lawrence Tone LACTATE/LACTIC ACIDon 2021 Lactate [Moles/Vol] 1.1 mmol/L Normal 0.4-1.9 [facility] Comment on above: Performed By: #### A MY, CMP, LIPA #### [facility] Laboratory [address] [address] [address] Lawrence Wayne LIPASEon 02-06-2022 Lipase [Catalytic activity/Vol] 107.0 U/L Normal 73.0-393.0 [facility] Comment on above: Performed By: #### M G, CMP, CMADM, BNP, ALIYAH, LIPA #### [facility] Laboratory [address] [address] [address] Lawrence Wayne MAGNESIUMon 02-06-2022 Magnesium [Mass/Vol] 2.3 mg/dL Normal 1.8-2.4 [facility] Comment on above: Performed By: #### M G, CMP, CMADM, BNP, ALIYAH, LIPA ####[facility] [address] [place] [address]Dr. Lawrence Wayne PROF 14(COMP METB)on 022 Albumin [Mass/Vol] 3.8 g/dL Normal 3.4-5.0 [facility] Comment on above: Performed By: #### M G, CMP, CMADM, BNP, ALIYAH, LIPA #### [facility] Laboratory [address] [address] [address] Lawrence Wayne Albumin/Globulin [Mass ratio] 1.1 {ratio} Normal [facility] Comment on above: Performed By: #### M G, CMP, CMADM, BNP, ALIYAH, LIPA #### [facility] Laboratory [address] [address] [address] Lawrence Wayne ALP [Catalytic activity/Vol] 98 U/L Normal 46-116 [facility] Comment on above: Performed By: #### M G, CMP, CMADM, BNP, ALIYAH, LIPA #### [facility] Laboratory [address] [address] [address] Lawrence Wayne ALT [Catalytic activity/Vol] 26 U/L Normal 14-59 [facility] Comment on above: Performed By: #### M G, CMP, CMADM, BNP, ALIYAH, LIPA #### [facility] Laboratory [address] [address] [address] Lawrence Wayne Anion gap [Moles/Vol] 12.9 mmol/L Normal [facility] Comment on above: Performed By: #### M G, CMP, CMADM, BNP, ALIYAH, LIPA #### [facility] Laboratory [address] [place] [address] Dr. Lawrence Wayne AST [Catalytic activity/Vol] 25 U/L Normal 15-37 [facility] Comment on above: Performed By: #### M G, CMP, CMADM, BNP, ALIYAH, LIPA #### [facility] Laboratory [address] [place] [address] Dr. Lawrence Wayne Bilirubin [Mass/Vol] 0.3 mg/dL Normal 0.2-1.0 [facility] Comment on above: Performed By: #### M G, CMP, CMADM, BNP, ALIYAH, LIPA #### [facility] Laboratory [address] [place] [address] Dr. Lawrence Wayne Calcium [Mass/Vol] 9.1 mg/dL Normal 8.5-10.1 [facility] Comment on above: Performed By: #### M G, CMP, CMADM, BNP, ALIYAH, LIPA #### [facility] Laboratory [address] [place] [address] Dr. Lawrence Wayne Chloride [Moles/Vol] 105 mmol/L Normal 98-107 [facility] Comment on above: Performed By: #### M G, CMP, CMADM, BNP, ALIYAH, LIPA #### [facility] Laboratory [address] [place] [address] Dr. Lawrence Wayne CO2 [Moles/Vol] 24.0 mmol/L Normal 21.0-32.0 [facility] Comment on above: Performed By: #### M G, CMP, CMADM, BNP, ALIYAH, LIPA #### [facility] Laboratory [address] [place] [address] Dr. Lawrence Wayne Creatinine [Mass/Vol] 0.90 mg/dL Normal 0.55-1.02 [facility] Comment on above: Performed By: #### M G, CMP, CMADM, BNP, ALIYAH, LIPA #### [facility] Laboratory [address] [address] [address] Lawrence Wayne EGFR-AF TURKISH >60 Normal >=60 [facility] Comment on above: Performed By: #### M G, CMP, CMADM, BNP, ALIYAH, LIPA #### [facility] Laboratory [address] [address] [address] Lawrence Wayne EGFR-NON AF TURKISH >60 Normal >=60 [facility] Comment on above: Performed By: #### M G, CMP, CMADM, BNP, ALIYAH, LIPA #### [facility] Laboratory [address] [address] [address] Lawrence Wayne Globulin (S) [Mass/Vol] 3.5 g/dL Normal [facility] Comment on above: Performed By: #### M G, CMP, CMADM, BNP, ALIYAH, LIPA #### [facility] Laboratory [address] [place] [address] Dr. Lawrence Wayne Glucose [Mass/Vol] 95 mg/dL Normal 74-106 [facility] Comment on above: Performed By: #### M G, CMP, CMADM, BNP, ALIYAH, LIPA #### [facility] Laboratory [address] [address] [address] Lawrence Wayne Potassium [Moles/Vol] 3.9 mmol/L Normal 3.5-5.1 [facility] Comment on above: Performed By: #### M G, CMP, CMADM, BNP, ALIYAH, LIPA #### [facility] Laboratory [address] [address] [address] Lawrence Wayne Protein [Mass/Vol] 7.3 g/dL Normal 6.4-8.2 [facility] Comment on above: Performed By: #### M G, CMP, CMADM, BNP, ALIYAH, LIPA #### [facility] [facility] [address] [address] [address] Lawrence Wayne Sodium [Moles/Vol] 138 mmol/L Normal 136-145 [facility] Comment on above: Performed By: #### M G, CMP, CMADM, BNP, ALIYAH, LIPA #### [facility] [address] [address] [address] Lawrence Wayne Urea nitrogen [Mass/Vol] 12.0 mg/dL Normal 7.0-18.0 The [facility] Comment on above: Performed By: #### M G, CMP, CMADM, BNP, ALIYAH, LIPA #### [facility] [address] [place] [address] Dr. Lawrence Wayne Urea nitrogen/Creatinine [Mass ratio] 13.3 mg/mg Normal The [facility] Comment on above: Performed By: #### M G, CMP, CMADM, BNP, ALIYAH, LIPA #### [facility] [address] [place] [address] Dr. Lawrence Wayne UA RANDOM W/MICROSCOPICon BACTERIA NONE SEEN Normal NONE SEEN [facility] Comment on above: Performed By: #### A MY, CMP, LIPA #### [facility] [address] [place] [address] Dr. Lawrence Wayne Bilirubin Ql (U) Negative Normal NEGATIVE The [facility] Comment on above: Performed By: #### A MY, CMP, LIPA #### [facility] [address] [place] [address] Dr. Lawrence Wayne CAST NONE SEEN Normal NONE SEEN [facility] Comment on above: Performed By: #### A MY, CMP, LIPA #### [facility] [address] [place] [address] Dr. Lawrence Wayne Clarity (U) CLEAR Normal CLEAR The [facility] Comment on above: Performed By: #### A MY, CMP, LIPA #### [facility] [address] [place] [address] Dr. Lawrence Wayne Color (U) LT. YELLOW Normal YELLOW The [facility] Comment on above: Performed By: #### A MY, CMP, LIPA #### [facility] [address] [place] [address] Dr. Lawrence Wayne Crystals LM Nom (Urine sed) NONE SEEN Normal NONE SEEN [facility] Comment on above: Performed By: #### A MY, CMP, LIPA #### [facility] [address] [place] [address] Dr. Lawrence Wayne Epithelial cells LM Ql (Urine sed) FEW Abnormal NONE SEEN /RARE The [facility] Comment on above: Performed By: #### A MY, CMP, LIPA #### [facility] [address] [address] [address] Lawrence Wayne Glucose Ql (U) Negative Normal NEGATIVE The [facility] Comment on above: Performed By: #### A MY, CMP, LIPA #### [facility] [address] [address] [address] Lawrence Wayne Hemoglobin Ql (U) Negative Normal NEGATIVE [facility] Comment on above: Performed By: #### A MY, CMP, LIPA #### [facility] [address] [address] [address] Lawrence Wayne Ketones Ql (U) Negative Normal NEGATIVE The [facility] Comment on above: Performed By: #### A MY, CMP, LIPA #### [facility] [address] [place] [address] Dr. Lawrence Wayne LEUKOCYTES SMALL Abnormal NEGATIVE The [facility] Comment on above: Performed By: #### A MY, CMP, LIPA #### [facility] [address] [address] [address] Lawrence Wayne MUCOUS NONE SEEN Normal NONE SEEN The [facility] Comment on above: Performed By: #### A MY, CMP, LIPA #### [facility] [address] [place] [address] Dr. Lawrence Wayne Nitrite Ql (U) Negative Normal NEGATIVE The [facility] Comment on above: Performed By: #### A MY, CMP, LIPA #### [facility] [address] [address] [address] Lawrence Wayne pH (U) 6.0 [pH] Normal 5-9 The [facility] Comment on above: Performed By: #### A MY, CMP, LIPA #### [facility] [address] [address] [address] Lawrence Wayne RBC NONE SEEN Abnormal 0-2 The [facility] Comment on above: Performed By: #### A MY, CMP, LIPA #### [facility] [address] [address] [address] Lawrence Wayne SPEC GRAVITY <=1.005 Abnormal 1.005-<=1.025 The [facility] Comment on above: Performed By: #### A MY, CMP, LIPA #### [facility] [address] [address] [address] Lawrence Wayne UA PROTEIN Negative Normal NEGATIVE/ TRACE The [facility] Comment on above: Performed By: #### A MY, CMP, LIPA #### [facility] [address] [address] [address] Lawrence Wayne Urobilinogen Qn (U) 0.2 {Antonina'U}/dL Normal 0.2 - 1. 0 The [facility] Comment on above: Performed By: #### A MY, CMP, LIPA #### [facility] [address] [address] [address] Lawrence Wayne WBC 0-2 Abnormal NONE SEEN The [facility] Comment on above: Performed By: #### A MY, CMP, LIPA #### [facility] [address] [address] [address] Lawrence Wayne YEAST PRESENT Abnormal NONE SEEN The [facility] Comment on above: Performed By: #### A MY, CMP, LIPA #### [facility] [address] [address] [address] Lawrence Wayne XR ABD FLAT UP_PA [...] TYRELL MOREJON Date: 2022-02-06 16:08 Normal The [facility] CTA CHEST WO W CONon 022 CTA [...] by: MARK RIOS Date: 2021-08-29 12:20 Normal The [facility] XR ABD FLAT_UPon 08-27-2021 XR ABD FLAT_UP [...] Normal The [facility] BNPon 08-21-2021 Natriuretic peptide B (Bld) [Mass/Vol] 51.0 pg/mL Normal <=900.0 The [facility] Comment on above: Performed By: #### A MY, CMP, LIPA #### [facility] [address] [place] [address] Dr. Lawrence Wayne CBC AUTO DIFFon 08-21-2021 BASO # 0.0 103/ul Normal 0.0-0.1 The [facility] Comment on above: Performed By: #### A MY, CMP, LIPA #### [facility] [address] [place] [address] Dr. Lawrence Wayne Basophils/100 WBC (Bld) 0.2 % Normal 0.2-2.0 The [facility] Comment on above: Performed By: #### A MY, CMP, LIPA #### [facility] [address] [place] [address] Dr. Lawrence Wayne EO # 0.0 103/ul Normal 0.0-0.7 The [facility] Comment on above: Performed By: #### A MY, CMP, LIPA #### [facility] [address] [place] [address] Dr. Lawrence Wayne Eosinophils/100 WBC (Bld) 0.1 % Critically low 0.9-7.0 The [facility] Comment on above: Performed By: #### A MY, CMP, LIPA #### [facility] [address] [place] [address] Dr. Lawrence Wayne Erythrocyte distribution width (RBC) [Ratio] 13.3 % Normal 11.0-15.0 The [facility] Comment on above: Performed By: #### A MY, CMP, LIPA #### [facility] [address] [place] [address] Dr. Lawrence Wayne Hematocrit (Bld) [Volume fraction] 45.7 % Normal 36.0-48.0 [facility] Comment on above: Performed By: #### A MY, CMP, LIPA #### [facility] [address] [place] [address] Dr. Lawrence Wayne Hemoglobin (Bld) [Mass/Vol] 15.3 g/dL Normal 12.0-16.0 [facility] Comment on above: Performed By: #### A MY, CMP, LIPA #### [facility] [address] [address] [address] Lawrence Wayne IG # 0.12 10e3/ul Critically high 0.00-0.03 [facility] Comment on above: Performed By: #### A MY, CMP, LIPA #### [facility] [address] [place] [address] Dr. Lawrence Wayne IG % 0.9 % Critically high 0.0-0.5 [facility] Comment on above: Performed By: #### A MY, CMP, LIPA #### [facility] [address] [place] [address] Dr. Lawrence Wayne LYMPH # 1.6 103/ul Normal 1.2-3.8 The [facility] Comment on above: Performed By: #### A MY, CMP, LIPA #### [facility] [address] [place] [address] Dr. Lawrence Wayne Lymphocytes/100 WBC (Bld) 11.9 % Critically low 20.5-60.0 [facility] Comment on above: Performed By: #### A MY, CMP, LIPA #### [facility] [address] [place] [address] Dr. Lawrence Wayne MANUAL DIFF REQ NO Normal [facility] Comment on above: Performed By: #### A MY, CMP, LIPA #### [facility] [address] [place] [address] Dr. Lawrence Wayne MCH (RBC) [Entitic mass] 30.2 pg Normal 26.7-34.0 [facility] Comment on above: Performed By: #### A MY, CMP, LIPA #### [facility] [address] [place] [address] Dr. Lawrence Wayne MCHC (RBC) [Mass/Vol] 33.5 g/dL Normal 29.9-35.2 [facility] Comment on above: Performed By: #### A MY, CMP, LIPA #### [facility] [address] [place] [address] Dr. Lawrence Wayne MCV (RBC) [Entitic vol] 90.1 fL Normal 81.0-99.0 [facility] Comment on above: Performed By: #### A MY, CMP, LIPA #### [facility] [address] [place] [address] Dr. Lawrence Wayne MONO # 1.0 103/ul Critically high 0.3-0.8 [facility] Comment on above: Performed By: #### A MY, CMP, LIPA #### [facility] [address] [place] [address] Dr. Lawrence Wayne Monocytes/100 WBC (Bld) 7.2 % Normal 1.7-12.0 [facility] Comment on above: Performed By: #### A MY, CMP, LIPA #### [facility] [address] [place] [address] Dr. Lawrence Wayne NEUT # 11.0 103/ul Critically high 1.4-6.5 [facility] Comment on above: Performed By: #### A MY, CMP, LIPA #### [facility] [address] [place] [address] Dr. Lawrence Wayne Neutrophils/100 WBC (Bld) 79.7 % Critically high 43.0-75.0 [facility] Comment on above: Performed By: #### A MY, CMP, LIPA #### [facility] [address] [place] [address] Dr. Lawrence Wayne Platelet mean volume (Bld) [Entitic vol] 9.1 fL Critically low 9.5-13.5 The [facility] Comment on above: Performed By: #### A MY, CMP, LIPA #### [facility] [address] [place] [address] Dr. Lawrence Wayne PLT 434 103/ul Normal 150-450 The [facility] Comment on above: Performed By: #### A MY, CMP, LIPA #### [facility] [address] [place] [address] Dr. Lawrence Wayne RBC 5.07 106/ul Normal 4.20-5.40 [facility] Comment on above: Performed By: #### A MY, CMP, LIPA #### [facility] [address] [address] [address] Lawrence Wayne WBC 13.8 103/ul Critically high 4.0-11.0 [facility] Comment on above: Performed By: #### A MY, CMP, LIPA #### [facility] [address] [address] [address] Lawrence Wayne PROF 14(COMP METB)on 022 Albumin [Mass/Vol] 3.9 g/dL Normal 3.5-5.0 [facility] Comment on above: Performed By: #### A MY, CMP, LIPA #### [facility] [address] [address] [address] Lawrence Wayne Albumin/Globulin [Mass ratio] 1.0 {ratio} Normal [facility] Comment on above: Performed By: #### A MY, CMP, LIPA #### [facility] [address] [address] [address] Lawrence Wayne ALP [Catalytic activity/Vol] 104 U/L Normal 38-126 [facility] Comment on above: Performed By: #### A MY, CMP, LIPA #### [facility] [address] [place] [address] Dr. Lawrence Wayne ALT [Catalytic activity/Vol] 20 U/L Normal 9-52 [facility] Comment on above: Performed By: #### A MY, CMP, LIPA #### [facility] [address] [address] [address] Lawrence Wayne Anion gap [Moles/Vol] 15.5 mmol/L Normal [facility] Comment on above: Performed By: #### A MY, CMP, LIPA #### [facility] [address] [place] [address] Dr. Lawrence Wayne AST [Catalytic activity/Vol] 13 U/L Critically low 14-36 [facility] Comment on above: Performed By: #### A MY, CMP, LIPA #### [facility] [address] [address] [address] Lawrence Wayne Bilirubin [Mass/Vol] 0.4 mg/dL Normal 0.2-1.3 [facility] Comment on above: Performed By: #### A MY, CMP, LIPA #### [facility] [address] [address] [address] Lawrence Wayne Calcium [Mass/Vol] 9.4 mg/dL Normal 8.4-10.2 [facility] Comment on above: Performed By: #### A MY, CMP, LIPA #### [facility] [address] [address] [address] Lawrence Wayne Chloride [Moles/Vol] 100 mmol/L Normal 98-107 The [facility] Comment on above: Performed By: #### A MY, CMP, LIPA #### [facility] [address] [place] [address] Dr. Lawrence Wayne CO2 [Moles/Vol] 23.9 mmol/L Normal 22.0-30.0 [facility] Comment on above: Performed By: #### A MY, CMP, LIPA #### [facility] [address] [address] [address] Lawrence Wayne Creatinine [Mass/Vol] 0.97 mg/dL Normal 0.52-1.04 [facility] Comment on above: Performed By: #### A MY, CMP, LIPA #### [facility] [address] [address] [address] Lawrence Wayne EGFR-AF TURKISH >60 Normal >=60 [facility] Comment on above: Performed By: #### A MY, CMP, LIPA #### [facility] [address] [address] [address] Lawrence Wayne EGFR-NON AF TURKISH 58 mL/min/1.73m2 Critically low >=60 The [facility] Comment on above: Performed By: #### A MY, CMP, LIPA #### [facility] [address] [address] [address] Lawrence Wayne Globulin (S) [Mass/Vol] 3.8 g/dL Normal [facility] Comment on above: Performed By: #### A MY, CMP, LIPA #### [facility] [address] [address] [address] Lawrence Wayne Glucose [Mass/Vol] 169 mg/dL Critically high 74-106 [facility] Comment on above: Performed By: #### A MY, CMP, LIPA #### [facility] [address] [address] [address] Lawrence Wayne Potassium [Moles/Vol] 3.4 mmol/L Normal 3.4-5.0 [facility] Comment on above: Performed By: #### A MY, CMP, LIPA #### [facility] [address] [place] [address] Dr. Lawrence Wayne Protein [Mass/Vol] 7.7 g/dL Normal 6.1-8.2 [facility] Comment on above: Performed By: #### A MY, CMP, LIPA #### [facility] [address] [address] [address] Lawrence Wayne Sodium [Moles/Vol] 136 mmol/L Critically low 137-145 [facility] Comment on above: Performed By: #### A MY, CMP, LIPA #### [facility] [address] [place] [address] Dr. Lawrence Wayne Urea nitrogen [Mass/Vol] 16.0 mg/dL Normal 7.0-17.0 [facility] Comment on above: Performed By: #### A MY, CMP, LIPA #### [facility] [address] [place] [address] Dr. Lawrence Wayne Urea nitrogen/Creatinine [Mass ratio] 16.5 mg/mg Normal [facility] Comment on above: Performed By: #### A MY, CMP, LIPA #### [facility] [address] [place] [address] Dr. Lawrence Wayne AMIRA by IFAon 08-12-2021 Antinuclear Antibodies, IFA Positive Abnormal [facility] Comment on above: Result Comment: Nega tive <1:80 Borderline 1:80 Positive >1:80 Performed By: #### A NAIFA ####[facility] [id number] [id number] Lawrence Wayne Centriole Pattern Normal [facility] Comment on above: Performed By: #### A NAIFA ####[facility] [id number] [id number] Lawrence Wayne Centromere Pattern Normal [facility] Comment on above: Performed By: #### A NAIFA ####[facility] [id number] [id number] Lawrence Wayne Homogeneous Pattern Normal The [facility] Comment on above: Performed By: #### A NAIFA ####[facility] [id number] [address] Lawrence Wayne Midbody Pattern Normal [facility] Comment on above: Performed By: #### A NAIFA ####[facility] [id number] [address]Dr[address] Lawrence Wayne Note: Comment Normal The [facility] Comment on above: Result Comment: For more [...] titers Nucleosomes, Histones Drug-induced SLE Speckled Sm, CABLE TESTERS HELPER, SCL-70, SLE,MCTD,PSS (diffuse form), SS-A/SS-B Sjogrens Nucleolar SCL-70, PM-1/SCL High titers Scleroderma, PM/DM Centromere Centromere PSS (limited form) w/Crest syndrome variable Nuclear Dot [id number] Primary Biliary Cirrhosis Nuclear GP210, Primary Biliary Cirrhosis Membrane hamilton A,B,C Performed By: #### A MICHELLE ####[facility] [id number] [address]Dr. Lawrence Wayne Nuclear Dot Pattern Normal [facility] Comment on above: Performed By: #### A MICHELLE ####[facility] [id number] [address]DrKim Wayne Nuclear Membrane Pattern Normal The [facility] Comment on above: Performed By: #### A NAIFA ####[facility] [id number] [address]Dr. Lawrence Wayne Nucleolar Pattern Normal [facility] Comment on above: Performed By: #### A NAIFA ####[facility] [id number] [address]Dr. Lawrence Wayne PCNA Pattern Normal The [facility] Comment on above: Performed By: #### A NAIFA ####[facility] [id number] [address]Dr. Lawrence Wayne Speckled Pattern 1:160 Critically high The [facility] Comment on above: Result Comment: ICAP nomenclature: AC-2,4,5,29 Performed By: #### A NAIFA ####[facility] [id number] [address]Dr[address] Lawrence Wayne Spindle Apparatus Pattern Normal The [facility] Comment on above: Performed By: #### A NAIFA ####[facility] [id number] [place], [place] [address]Dr. Lawrence Wayne AMIRA DIRECTon 08-11-2021 AMIRA Direct Positive Abnormal Negative [facility] Comment on above: Performed By: #### A NAD ####[facility] [id number] [place], [place] [address]Dr. Lawrence Wayne SLE PROFILE Aon 08-11-2021 Anti-DNA (DS) Ab Qn 1 IU/mL Normal 0-9 [facility] Comment on above: Result Comment: Nega tive <5 Equivocal 5 - 9 Positive >9 Performed By: #### A MY, CMP, LIPA #### [facility] [address] [place] [address] Dr. Lawrence Wayne Antichromatin Antibodies <0.2 Normal 0.0-0.9 [facility] Comment on above: Performed By: #### A MY, CMP, LIPA #### [facility] [address] [address] [address] Lawrence Wayne RA Latex Turbid. <10.0 Normal <14.0 [facility] Comment on above: Performed By: #### A MY, CMP, LIPA #### [facility] [address] [place] [address] Dr. Lawrence Wayne CABLE [employer] HELPER Antibodies <0.2 Normal 0.0-0.9 [facility] Comment on above: Performed By: #### A MY, CMP, LIPA #### [facility] [address] [place] [address] Dr. Lawrence Wayne Sjogren's Anti-SS-A 1.4 AI Critically high 0.0-0.9 [facility] Comment on above: Performed By: #### A MY, CMP, LIPA #### [facility] [address] [address] [address] Lawrence Wayne Sjogrvidal'joey Anti-SS-B <0.2 Normal 0.0-0.9 [facility] Comment on above: Performed By: #### A MY, CMP, LIPA #### [facility] [address] [place] [address] Dr. Lawrence Wayne Ramos Antibodies <0.2 Normal 0.0-0.9 [facility] Comment on above: Performed By: #### A MY, CMP, LIPA #### [facility] [address] [place] [address] Dr. Lawrence Wayne ANTISTREPTOLYSIN O AB (ASO)o n 08-10-2021 Antistreptolysin O Ab 55.6 IU/mL Normal 0.0-200.0 [facility] Comment on above: Performed By: #### A MY, CMP, LIPA #### [facility] [address] [place] [address] Dr. Lawrence Wayne C3 and C4 COMPLEMENTon 08-10 Complement C3, Serum 124 mg/dL Normal 82-167 [facility] Comment on above: Performed By: #### A MY, CMP, LIPA #### [facility] [address] [place] [address] Dr. Lawrence Wayne Complement C4, Serum 12 mg/dL Normal 12-38 [facility] Comment on above: Performed By: #### A MY, CMP, LIPA #### [facility] [address] [place] [address] Dr. Lawrence Wayne CBC AUTO DIFFon 08-09-2021 BASO # 0.1 103/ul Normal 0.0-0.1 The [facility] Comment on above: Performed By: #### A MY, CMP, LIPA #### [facility] Laboratory [address] [place] [address] Dr. Lawrence Wayne Basophils/100 WBC (Bld) 0.6 % Normal 0.2-2.0 The [facility] Comment on above: Performed By: #### A MY, CMP, LIPA #### [facility] [address] [place] [address] Dr. Lawrence Wayne EO # 0.0 103/ul Normal 0.0-0.7 The [facility] Comment on above: Performed By: #### A MY, CMP, LIPA #### [facility] [address] [place] [address] Dr. Lawrence Wayne Eosinophils/100 WBC (Bld) 0.2 % Critically low 0.9-7.0 The [facility] Comment on above: Performed By: #### A MY, CMP, LIPA #### [facility] [address] [place] [address] Dr. Lawrence Wayne Erythrocyte distribution width (RBC) [Ratio] 13.4 % Normal 11.0-15.0 The [facility] Comment on above: Performed By: #### A MY, CMP, LIPA #### [facility] [address] [place] [address] Dr. Lawrence Wayne Hematocrit (Bld) [Volume fraction] 43.6 % Normal 36.0-48.0 [facility] Comment on above: Performed By: #### A MY, CMP, LIPA #### [facility] [address] [place] [address] Dr. Lawernce Wayne Hemoglobin (Bld) [Mass/Vol] 14.2 g/dL Normal 12.0-16.0 The [facility] Comment on above: Performed By: #### A MY, CMP, LIPA #### [facility] [address] [place] [address] Dr. Lawrence Wayne IG # 0.03 10e3/ul Normal 0.00-0.03 [facility] Comment on above: Performed By: #### A MY, CMP, LIPA #### [facility] [address] [place] [address] Dr. Lawrence Wayne IG % 0.3 % Normal 0.0-0.5 [facility] Comment on above: Performed By: #### A MY, CMP, LIPA #### [facility] [address] [place] [address] Dr. Lawrence Wayne LYMPH # 1.1 103/ul Critically low 1.2-3.8 [facility] Comment on above: Performed By: #### A MY, CMP, LIPA #### [facility] [address] [place] [address] Dr. Lawrence Wayne Lymphocytes/100 WBC (Bld) 12.7 % Critically low 20.5-60.0 [facility] Comment on above: Performed By: #### A MY, CMP, LIPA #### [facility] [address] [place] [address] Dr. Lawrence Wayne MANUAL DIFF REQ NO Normal [facility] Comment on above: Performed By: #### A MY, CMP, LIPA #### [facility] [address] [place] [address] Dr. Lawrence Wayne MCH (RBC) [Entitic mass] 30.3 pg Normal 26.7-34.0 [facility] Comment on above: Performed By: #### A MY, CMP, LIPA #### [facility] [address] [place] [address] Dr. Lawrence Wayne MCHC (RBC) [Mass/Vol] 32.6 g/dL Normal 29.9-35.2 The [facility] Comment on above: Performed By: #### A MY, CMP, LIPA #### [facility] [address] [place] [address] Dr. Lawrence Wayne MCV (RBC) [Entitic vol] 93.0 fL Normal 81.0-99.0 [facility] Comment on above: Performed By: #### A MY, CMP, LIPA #### [facility] [address] [address] [address] Lawrence Wayne MONO # 0.3 103/ul Normal 0.3-0.8 The [facility] Comment on above: Performed By: #### A MY, CMP, LIPA #### [facility] [address] [place] [address] Dr. Lawrence Wayne Monocytes/100 WBC (Bld) 3.7 % Normal 1.7-12.0 The [facility] Comment on above: Performed By: #### A MY, CMP, LIPA #### [facility] [address] [place] [address] Dr. Lawrence Wayne NEUT # 7.3 103/ul Critically high 1.4-6.5 [facility] Comment on above: Performed By: #### A MY, CMP, LIPA #### [facility] [address] [place] [address] Dr. Lawrence Wayne Neutrophils/100 WBC (Bld) 82.5 % Critically high 43.0-75.0 The [facility] Comment on above: Performed By: #### A MY, CMP, LIPA #### [facility] [address] [place] [address] Dr. Lawrence Wayne Platelet mean volume (Bld) [Entitic vol] 9.6 fL Normal 9.5-13.5 The [facility] Comment on above: Performed By: #### A MY, CMP, LIPA #### [facility] [address] [place] [address] Dr. Lawrence Wayne PLT 322 103/ul Normal 150-450 The [facility] Comment on above: Performed By: #### A MY, CMP, LIPA #### [facility] [address] [place] [address] Dr. Lawrence Wayne RBC 4.69 106/ul Normal 4.20-5.40 The [facility] Comment on above: Performed By: #### A MY, CMP, LIPA #### [facility] [address] [place] [address] Dr. Lawrence Wayne WBC 8.8 103/ul Normal 4.0-11.0 The [facility] Comment on above: Performed By: #### A MY, CMP, LIPA #### [facility] [address] [address] [address] Lawrence Wayne CRPon 08-09-2021 CRP [Mass/Vol] mg/L Normal <=1.0 [facility] Comment on above: Performed By: #### A MY, CMP, LIPA #### [facility] [address] [address] [address] Lawrence Wayne IRONon 08-09-2021 Iron [Mass/Vol] 83.0 ug/dL Normal 37.0-170.0 [facility] Comment on above: Performed By: #### A MY, CMP, LIPA #### [facility] [address] [address] [address] Lawrence Wayne SED RATE WESTERGRENon 2021 SED RATE 16 mm/hr Normal <=30 The [facility] Comment on above: Performed By: #### S EDR ####[facility] [id number] [address]Dr[address] Lawrence Wayne URIC ACID SERUMon 08-09-2021 Urate [Mass/Vol] 3.4 mg/dL Normal 2.5-6.2 [facility] Comment on above: Performed By: #### A MY, CMP, LIPA #### [facility] [address] [address] [address] Lawrence Wayne XR CSPINE MIN 4 [...] by: TYRELL MOREJON Date: 2021-08-09 14:37 Normal [facility] H PYLORI ANTIBODY IGGon 06-16 H. PYLORI IGG ABS 0.13 Index Value Normal 0.00-0.79 [facility] Comment on above: Result Comment: Nega tive <0.80 Equivocal 0.80 - 0.89 Positive >0.89 Performed By: #### A MY, CMP, LIPA #### [facility] [address] [place] [address] Dr. Lawrence Wayne AMYLASEon 07-11-2021 Amylase [Catalytic activity/Vol] 100 U/L Normal 31-110 [facility] Comment on above: Performed By: #### A MY, CMP, LIPA #### [facility] [address] [place] [address] Dr. Lawrence Wayne CBC AUTO DIFFon 07-11-2021 BASO # 0.1 103/ul Normal 0.0-0.1 [facility] Comment on above: Performed By: #### A MY, CMP, LIPA #### [facility] [address] [place] [address] Dr. Lawrence Wayne Basophils/100 WBC (Bld) 0.7 % Normal 0.2-2.0 [facility] Comment on above: Performed By: #### A MY, CMP, LIPA #### [facility] [address] [place] [address] Dr. Lawrence Wayne EO # 0.1 103/ul Normal 0.0-0.7 [facility] Comment on above: Performed By: #### A MY, CMP, LIPA #### [facility] [address] [place] [address] Dr. Lawrence Wayne Eosinophils/100 WBC (Bld) 1.2 % Normal 0.9-7.0 The [facility] Comment on above: Performed By: #### A MY, CMP, LIPA #### [facility] [address] [place] [address] Dr. Lawrence Wayne Erythrocyte distribution width (RBC) [Ratio] 13.9 % Normal 11.0-15.0 [facility] Comment on above: Performed By: #### A MY, CMP, LIPA #### [facility] [address] [address] [address] Lawrence Wayne Hematocrit (Bld) [Volume fraction] 45.9 % Normal 36.0-48.0 [facility] Comment on above: Performed By: #### A MY, CMP, LIPA #### [facility] [address] [address] [address] Lawrence Wayne Hemoglobin (Bld) [Mass/Vol] 14.9 g/dL Normal 12.0-16.0 [facility] Comment on above: Performed By: #### A MY, CMP, LIPA #### [facility] [address] [address] [address] Lawrence Wayne IG # 0.03 10e3/ul Normal 0.00-0.03 [facility] Comment on above: Performed By: #### A MY, CMP, LIPA #### [facility] [address] [place] [address] Dr. Lawrence Wayne IG % 0.4 % Normal 0.0-0.5 [facility] Comment on above: Performed By: #### A MY, CMP, LIPA #### [facility] [address] [address] [address] Lawrence Wayne LYMPH # 2.2 103/ul Normal 1.2-3.8 [facility] Comment on above: Performed By: #### A MY, CMP, LIPA #### [facility] [address] [address] [address] Lawrence Wayne Lymphocytes/100 WBC (Bld) 29.0 % Normal 20.5-60.0 [facility] Comment on above: Performed By: #### A MY, CMP, LIPA #### [facility] [address] [address] [address] Lawrence Wayne MANUAL DIFF REQ NO Normal [facility] Comment on above: Performed By: #### A MY, CMP, LIPA #### [facility] [address] [place] [address] Dr. Lawrence Wayne MCH (RBC) [Entitic mass] 29.8 pg Normal 26.7-34.0 The [facility] Comment on above: Performed By: #### A MY, CMP, LIPA #### [facility] [address] [place] [address] Dr. Lawrence Wayne MCHC (RBC) [Mass/Vol] 32.5 g/dL Normal 29.9-35.2 The [facility] Comment on above: Performed By: #### A MY, CMP, LIPA #### [facility] [address] [place] [address] Dr. Lawrence Wayne MCV (RBC) [Entitic vol] 91.8 fL Normal 81.0-99.0 The [facility] Comment on above: Performed By: #### A MY, CMP, LIPA #### [facility] [address] [place] [address] Dr. Lawrence Wayne MONO # 0.9 103/ul Critically high 0.3-0.8 [facility] Comment on above: Performed By: #### A MY, CMP, LIPA #### [facility] [address] [place] [address] Dr. Lawrence Wayne Monocytes/100 WBC (Bld) 11.7 % Normal 1.7-12.0 The [facility] Comment on above: Performed By: #### A MY, CMP, LIPA #### [facility] [address] [place] [address] Dr. Lawrence Wayne NEUT # 4.3 103/ul Normal 1.4-6.5 The [facility] Comment on above: Performed By: #### A MY, CMP, LIPA #### [facility] [address] [place] [address] Dr. Lawrence Wayne Neutrophils/100 WBC (Bld) 57.0 % Normal 43.0-75.0 The [facility] Comment on above: Performed By: #### A MY, CMP, LIPA #### [facility] [address] [place] [address] Dr. Lawrence Wayne Platelet mean volume (Bld) [Entitic vol] 8.7 fL Critically low 9.5-13.5 The [facility] Comment on above: Performed By: #### A MY, CMP, LIPA #### [facility] [address] [place] [address] Dr. Lawrence Wayne PLT 351 103/ul Normal 150-450 [facility] Comment on above: Performed By: #### A MY, CMP, LIPA #### [facility] [address] [place] [address] Dr. Lawrence Wayne RBC 5.00 106/ul Normal 4.20-5.40 [facility] Comment on above: Performed By: #### A MY, CMP, LIPA #### [facility] [address] [place] [address] Dr. Lawrence Wayne WBC 7.6 103/ul Normal 4.0-11.0 [facility] Comment on above: Performed By: #### A MY, CMP, LIPA #### [facility] [address] [place] [address] Dr. Lawrence Wayne LIPASEon 07-11-2021 Lipase [Catalytic activity/Vol] 93.0 U/L Normal 23.0-300.0 [facility] Comment on above: Performed By: #### A MY, CMP, LIPA #### [facility] [address] [place] [address] Dr. Lawrence Wayne PROF 14(COMP METB)on 022 Albumin [Mass/Vol] 4.1 g/dL Normal 3.5-5.0 [facility] Comment on above: Performed By: #### A MY, CMP, LIPA #### [facility] [address] [place] [address] Dr. Lawrence Wayne Albumin/Globulin [Mass ratio] 1.1 {ratio} Normal [facility] Comment on above: Performed By: #### A MY, CMP, LIPA #### [facility] [address] [place] [address] Dr. Lawrence Wayne ALP [Catalytic activity/Vol] 101 U/L Normal 38-126 The [facility] Comment on above: Performed By: #### A MY, CMP, LIPA #### [facility] [address] [place] [address] Dr. Lawrence Wayne ALT [Catalytic activity/Vol] 38 U/L Normal 9-52 The [facility] Comment on above: Performed By: #### A MY, CMP, LIPA #### [facility] [address] [address] [address] Lawrence Wayne Anion gap [Moles/Vol] 12.5 mmol/L Normal Th e [facility] Comment on above: Performed By: #### A MY, CMP, LIPA #### [facility] [address] [place] [address] Dr. Lawrence Wayne AST [Catalytic activity/Vol] 25 U/L Normal 14-36 The [facility] Comment on above: Performed By: #### A MY, CMP, LIPA #### [facility] [address] [place] [address] Dr. Lawrence Wayne Bilirubin [Mass/Vol] 0.8 mg/dL Normal 0.2-1.3 The [facility] Comment on above: Performed By: #### A MY, CMP, LIPA #### [facility] [address] [place] [address] Dr. Lawrence Wayne Calcium [Mass/Vol] 9.9 mg/dL Normal 8.4-10.2 [facility] Comment on above: Performed By: #### A MY, CMP, LIPA #### [facility] [address] [place] [address] Dr. Lawrence Wayne Chloride [Moles/Vol] 98 mmol/L Normal 98-107 The [facility] Comment on above: Performed By: #### A MY, CMP, LIPA #### [facility] [address] [place] [address] Dr. Lawrence Wayne CO2 [Moles/Vol] 26.6 mmol/L Normal 22.0-30.0 [facility] Comment on above: Performed By: #### A MY, CMP, LIPA #### [facility] [address] [place] [address] Dr. Lawrence Wayne Creatinine [Mass/Vol] 1.12 mg/dL Critically high 0.52-1.04 The [facility] Comment on above: Performed By: #### A MY, CMP, LIPA #### [facility] [address] [address] [address] Lawrence Wayne EGFR-AF TURKISH 59 mL/min/1.73m2 Critically low >=60 [facility] Comment on above: Performed By: #### A MY, CMP, LIPA #### [facility] [address] [address] [address] Lawrence Wayne EGFR-NON AF TURKISH 49 mL/min/1.73m2 Critically low >=60 [facility] Comment on above: Performed By: #### A MY, CMP, LIPA #### [facility] [address] [address] [address] Lawrence Wayne Globulin (S) [Mass/Vol] 3.7 g/dL Normal [facility] Comment on above: Performed By: #### A MY, CMP, LIPA #### [facility] [address] [address] [address] Lawrence Wayne Glucose [Mass/Vol] 117 mg/dL Critically high 74-106 [facility] Comment on above: Performed By: #### A MY, CMP, LIPA #### [facility] [address] [address] [address] Lawrence Wayne Potassium [Moles/Vol] 4.1 mmol/L Normal 3.4-5.0 [facility] Comment on above: Performed By: #### A MY, CMP, LIPA #### [facility] [address] [address] [address] Lawrence Wayne Protein [Mass/Vol] 7.8 g/dL Normal 6.1-8.2 [facility] Comment on above: Performed By: #### A MY, CMP, LIPA #### [facility] [address] [address] [address] Lawrence Wayne Sodium [Moles/Vol] 133 mmol/L Critically low 137-145 [facility] Comment on above: Performed By: #### A MY, CMP, LIPA #### [facility] [address] [address] [address] Lawrence Wayne Urea nitrogen [Mass/Vol] 9.0 mg/dL Normal 7.0-17.0 [facility] Comment on above: Performed By: #### A MY, CMP, LIPA #### [facility] [address] [place], [place] [address] Dr[address] Lawrence Wayne Urea nitrogen/Creatinine [Mass ratio] 8.0 mg/mg Normal [facility] Comment on above: Performed By: #### A MY, CMP, LIPA #### [facility] [address] [place], [place] [address] Dr. Lawrence Wayne Vital Signs Date Time Vital Sign Value Performing Clinician Faci lity 07-20-2024 14:12-0500 Body mass index (BMI) [Ratio] 23.6 kg/m2 Christopher Connie DO Work Phone: [facility] 07-20-2024 14:12-0500 Body weight 60.42 kg Christopher Connie DO Work Phone: [facility] 07-20-2024 14:12-0500 Diastolic blood pressure 84 mm[Hg] Christopher Connie DO Work Phone: [facility] 07-20-2024 14:12-0500 Heart rate 72 /min Christopher Connie DO Work Phone: [facility] 07-20-2024 14:12-0500 SaO2% (BldA) [Mass fraction] 99 % Christopher Connie DO Work Phone: [facility] 07-20-2024 14:12-0500 Systolic blood pressure 132 mm[Hg] Christopher Connie DO Work Phone: [facility] 06-20-2024 10:20-0500 Body height 160 cm Divya Dudley MD Work Phone: [facility] 06-20-2024 10:20-0500 Diastolic blood pressure 71 mm[Hg] Divya Dudley MD Work Phone: [facility] 06-20-2024 10:20-0500 Heart rate 64 /min Divya Dudley MD Work Phone: [facility] 06-20-2024 10:20-0500 Systolic blood pressure 110 mm[Hg] Divya Dudley MD Work Phone: [facility] 05-27-2022 15:00-0500 Body height 160.02 cm Prasad Isabel Other [facility] Other 05-27-2022 15:00-0500 Body mass index (BMI) [Ratio] 23.56 kg/m2 Prasad Isabel Other [facility] Other 05-27-2022 15:00-0500 Body weight 60.33 kg Prasad Isabel Other [facility] Other Encounters Encounter Date Encounter Type Care Provider Facility Start: 08-09-2024 End: 08-09-2024 Telephone encounter Divya Dudley MD Work Phone: [facility] Comment on above: Mouth Lesions Start: 07-20-2024 End: 07-20-2024 Office outpatient visit 25 minutes Christopher Connie DO Work Phone: [facility] Comment on above: Memory impairment (P rimary Dx); Anxiety Start: 07-20-2024 End: 07-20-2024 ambulatory CHRISTOPHER CONNIE Not Available Start: 07-20-2024 End: 07-20-2024 Bamboo flowsheet Christopher Connie DO Work Phone: [facility] Start: 07-20-2024 End: 07-20-2024 Bamboo flowsheet Christopher Connie DO Work Phone: [facility] Start: 06-20-2024 End: 06-20-2024 Bamboo flowsheet Divya Dudley MD Work Phone: [facility] Start: 06-20-2024 End: 06-20-2024 Bamboo flowsviji Dudley MD Work Phone: [facility] Start: 06-20-2024 End: 06-20-2024 Office outpatient new 45 minutes Divya Dudley MD Work Phone: [facility] Comment on above: Left facial pain (Pr imary Dx) Start: 06-20-2024 End: 06-20-2024 ambulatory DIVYA DUDLEY Not Available Start: 02-05-2024 End: 02-05-2024 Refill Cindy D Zahler DO Work Phone: [facility] Comment on above: Age-related nuclear cataract of both eyes Start: 02-01-2024 End: 02-01-2024 Refill Cindy D Zahler DO Work Phone: [facility] Comment on above: Age-related nuclear cataract of both eyes Start: 01-18-2024 End: 01-18-2024 ambulatory Cindy Phan Facility:[facility] Start: 01-11-2024 End: 01-11-2024 ambulatory CINDY WINTERSER Not Available Start: 11-16-2023 End: 11-16-2023 ambulatory MIGUEL ÁNGEL ROSALES Not Available Start: 11-02-2023 End: 11-02-2023 ambulatory JASVIR SMILEY Not Available Start: 10-08-2023 End: 10-08-2023 ambulatory CHRISTOPHER CONNIE Not Available Start: 07-27-2023 Bamboo flowsheet Cindy D Za hler DO Work Phone: [facility] Start: 07-27-2023 Bamboo flowsheet Cindy D Za hler DO Work Phone: [facility] Start: 07-27-2023 End: 07-27-2023 ambulatory CINDY D ZAHLER Not Available Start: 07-01-2022 End: 07-02-[address] ANITHA MCGREGOR Facility: Start: 06-23-2022 End: 06-23-2022 ambulatory ANITHA MCGREGOR Facility:[facility] Start: 06-23-2022 End: 06-23-2022 ambulatory Benjamin Moore PA-C Work Phone: [facility] Comment on above: Fibromyalgia (Primar y Dx); Cervicalgia Start: 06-23-2022 End: 06-23-2022 Telemedicine consultation with patient Benjamin Moore PA-C Work Phone: [facility] Start: 06-17-2022 End: 06-17-[address] JULIANN ROGER Facility:[facility] Start: 06-03-2022 End: 06-03-2022 ambulatory Bentley Yemi Other [facility] [employer] Other Start: 06-03-2022 Chart abstracting Unk (Historical) N eurology Start: 06-03-2022 Telephone encounter Bentley Bragg [employer] Start: 05-27-2022 End: 05-27-2022 ambulatory Prasad Isabel Other [facility] [employer] Other Start: 05-27-2022 Office outpatient ne w 30 minutes Prasad Isabel [facility] Start: 05-20-2022 End: 05-21-2022 ambulatory [...] End: 07-06-2018 Patient encounter procedure Kings Thomson Facility:[facility] Procedures Date Procedure Procedure Detail Performing Clinician Start: 07-27-2023 End: 07-27-2023 Ophth medical xm&eval compre new pt 1/> vst Age-related nuclear cataract of both eyes Cindy Phan DO Work Phone: Comment on above: Age-related nuclear cataract of both eyes (Primary Dx) Start: 03-26-2022 Mammography Cindy cullen DO Work Phone: Plan of Treatment Date Care Activity Detail Author Start: 01-23-2025 End: 01-23-2025 Patient encounter procedure 01/23/2025 9:40 AM EDT Office Visit AMIR[facility] MCKEONUE [address] [place] [address] [phone] Екатерина Chacon NP [address] [place] [id number] AMIRA ZAPATA Start: 07-20-2024 End: 07-20-2024 Patient encounter procedure 07/20/2024 2:15 PM EST Office Visit AMIRA ZAPATA [address] [place] [phone] Miguel Ángel Rosales DO [address] [place], [place] [id number] Arrived AMIRA ZAPATA Comment on above: Arrived Start: 06-20-2024 End: 06-20-2024 Patient encounter procedure 06/20/2024 10:30 AM EST Office Visit [facility] [address] [facility] [address] [place] [address] Divya Dudley MD [address] [facility] [address] [place] [address] Arrived [facility] Comment on above: Arrived Start: 02-14-2024 Influenza vaccination Influenza Vacc ine (#1) [facility] Start: 02-09-2024 End: 02-09-2024 Patient encounter procedure 02/09/2024 7:30 AM EDT Procedure Visit [facility] Cindy Phan, DO [address] [place] [address] [facility] Start: 01-11-2024 End: 01-11-2024 Patient encounter procedure 01/11/2024 1:15 PM EDT Office Visit [facility] [address] [place] [phone] Cindy Phan, DO [address] [place] [address] [facility] Start: 07-27-2023 End: 07-27-2023 Patient encounter procedure 07/27/2023 2:15 PM EST Office Visit [facility] [address] [place] [phone] Cindy Phan, DO [address] [place] [address] Arrived [facility] Comment on above: Arrived Start: 03-26-2023 Screening for malign ant neoplasm of breast Mammogram [facility] Start: 02-13-2023 Influenza vaccination Influenza Vacc ine (#1) [facility] Start: 06-15-2022 ADVANCE DIRECTIVE DISCUSSION ADVANCE DIRECTIVE DISCUSSION [facility] Start: 06-15-2022 DEPRESSION ASSESSMENT DEPRESSION ASS ESSMENT [facility] Start: 02-13-2022 Influenza vaccination INFLUENZA (#1) [facility] Start: 12-08-2021 COVID-19 VACCINE (5 - Booster for Moderna series) COVID-19 VACCINE (5 - Booster for Moderna series) [facility] Start: 06-15-2021 ADVANCE DIRECTIVE DISCUSSION ADVANCE DIRECTIVE DISCUSSION [facility] Start: 06-15-2021 DEPRESSION ASSESSMENT DEPRESSION ASS ESSMENT [facility] Start: 01-11-2021 BONE DENSITY BONE DENSITY [facility] Start: 01-11-2021 Pneumococcal Vaccine : 65+ Years (1 - PCV) Pneumococcal Vaccine: 65+ Years (1 - PCV) [facility] Start: 01-11-2021 Pneumococcal Vaccine : 65+ Years (1 of 1 - PCV) Pneumococcal Vaccine: 65+ Years (1 of 1 - PCV) [facility] Start: 01-11-2021 PNEUMOCOCCAL: 65+ (1 - PCV) PNEUMOCOCCAL: 65+ (1 - PCV) [facility] Start: 09-20-2012 DIABETES SCREEN DIABETES SCREEN [facility] Start: 01-11-2006 SHINGRIX VACCINE (1 of 2) SHINGRIX V ACCINE (1 of 2) [facility] Start: 01-11-2001 COLOGUARD (FIT-DNA) COLOGUARD (FIT-D NA) [facility] Start: 01-11-2001 Colonoscopy COLONOSCOPY [facility] Start: 01-11-2001 COLORECTAL CANCER SCREENING COLORECTAL CANCER SCREENING [facility] Start: 01-11-[address] COLONOGRAPHY [facility] Start: 01-11-2001 FECAL OCCULT BLOOD FECAL OCCULT BLOO D [facility] Start: 01-11-2001 LIPID SCREEN LIPID SCREEN [facility] Start: 01-11-2001 SIGMOIDOSCOPY SIGMOIDOSCOPY [facility] Start: 1996 Mammography MAMMOGRAM [facility] Start: 01-11-1975 Urine microalbumin profile DTAP,TDAP,TD (1 - Tdap) [facility] Start: 01-11-1974 HEPATITIS C SCREENING HEPATITIS C SC REENING [facility] Start: 1955 COVID-19 VACCINE (#1) COVID-19 VACCI NE (#1) [facility] Start: 1955 Screening for malign ant neoplasm of colon [facility] Immunizations Immunization Date Immunization Notes Care Provider Bill dorsey 04-09-2022 influenza virus vacc ine, unspecified formulation Cindy Phan DO Work Phone: [facility] Payers Date Payer Category Payer Medicare AN[employer]M MEDICARE [employer] MEDICARE ADVANTAGE [id number] 2023-Present [address] [place] [address] [id number] 2023 Medicare (Managed Care) ANTHEM M EDICARE ADVANTAGE [id number] 2021 Unknown ANTHEM BLUE CROS S AND BLUE SHIELD ANTHEM MEDIBLUE HMO [id number] 2021-Present [phone] [address] [place] [address] HMO [id number] 2018 Self-pay 2018 Unknown [id number] 1959 Unknown [id number] 1956 Unknown [id number] 2.16840.1.655344.3.579. 2.59 1956 Unknown [id number] 2.16840.1.184704.3.579. 2.59 1956 Unknown [id number] .16840.1.568124.3.579. 2.59 1956 Unknown [id number] 2.16.840.1.434406.3.579. 2.593 1956 Unknown [id number] 2.16.840.1.745385.3.579. 2.593 1956 Unknown [id number] 2.16840.1.436457.3.579. 2.593 1956 Unknown [id number] 2.16.840.1.965139.3.579. 2.593 1956 Unknown [id number] 2.16.840.1.713120.3.579. 2.593 1956 Unknown [id number] 2.16.840.1.010439.3.579. 2.593 1956 Unknown [id number] 2.16.840.1.101866.3.579. 2.593 1956 Unknown [id number] 2.16.840.1.172137.3.579. 2.593 1956 Unknown [id number] 2.16.840.1.806685.3.579. 2.593 1956 Unknown [id number] 2.16.840.1.285556.3.579. 2.593 1956 Unknown [id number] 2.16.840.1.955493.3.579. 2.727 1956 Unknown [id number] 2.16840.1.378827.3.579. 2.727 1956 Unknown [id number] 2.16840.1.311617.3.579. 2.1259 1956 Unknown [id number] 2.16.840.1.006193.3.579. 2.1259 1956 Unknown [id number] 2.16.840.1.445630.3.579. 2.1259 1956 Unknown [id number] 2.16840.1.261218.3.579. 2.1259 1956 Unknown [id number] 2.16.840.1.896305.3.579. 2.125 1956 Unknown [id number] 2.16.840.1.693383.3.579. 2.1259 1956 Unknown [id number] 2.16.840.1.949584.3.579. 2.1259 Unknown [id number] 2.16.840.1.805743.3.579. 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 Tomo Clases Other Tobacco smoking status VTIS Tobacco smoking consumption unknown [facility] Start: 10-08-2023 End: 06-20-2024 History of Social function [facility] Start: 06-20-2024 Alcoholic beverage intake Ex-drinker (finding) [facility] Clinical Notes 05-27-2022 to 08-09-2024 Telephone Encounter - Divya Dudley MD - 08/09/2024 2:04 PM ESTTelephone Encounter - Divya Dudley MD - 08/09/2024 2:04 PM ESTTelephone Encounter - Jordana Dudley - 08/09/2024 1:40 PM EST Note Date & Type Note Facility 08-09-2024 Telephone encounter Note Thursday [facility] 08-09-2024 Miscellaneous Notes Thursday Pt called in. Pt saw Dr Mcgregor last for a sore in her mouth. Dr Mcgregor told pt she should see Dr Dudley when the sore is in her mouth. She's been fighting sores in her mouth since March with Dr Mcgregor. She wants to know how soon she can get in. documented in this encounter [facility] 08-09-2024 Telephone encounter Note Pt called in. Pt saw Dr Mcgregor last for a sore in her mouth. Dr Mcgregor told pt she should see Dr Dudley when the sore is in her mouth. She's been fighting sores in her mouth since March with Dr Mcgregor. She wants to know how soon she can get in. [facility] 07-20-2024 History of Present illness Narrative Images from the original note were not included. Chief Complaint: memory loss Subjective Skip Hong, 69 y.o., female Patient presents today for a follow up for memory impairment. She had neuropsych testing and labs completed for review. Patient states she reads all the time and recently she was reading and was stuck on a word. It typically takes her a minute or minute and a half to read and page and it took her 12 minutes one day. She states she wasn't able to recognize words. She is experiencing frontal migraines as well, she is unsure if this is related. She is still experiencing episodes where she is driving down the road and she wont know where she is at. She is having episodes of extreme agitation as well. Medication List Accurate as of July 20, 2024 2:28 PM. If you have any questions, ask your nurse or doctor. CONTINUE taking these medications acetaminophen 500 MG tablet; Commonly known as: Tylenol divalproex 125 MG EC tablet; Commonly known as: Depakote DSS 100 MG capsule gabapentin 100 MG capsule; Commonly known as: Neurontin ibuprofen 200 MG tablet liothyronine 5 MCG tablet; Commonly known as: Cytomel Nurtec 75 MG tablet dispersible; Generic drug: Rimegepant Sulfate Plavix 75 MG tablet; Generic drug: clopidogrel promethazine 25 MG tablet; Commonly known as: Phenergan Protonix 40 MG EC tablet; Generic drug: pantoprazole SUMAtriptan 100 MG tablet; Commonly known as: Imitrex Valium 5 MG tablet; Generic drug: diazePAM Past Medical History: Diagnosis Date Acid reflux Brachial neuritis or radiculitis 04/18/2014 Brachial plexus lesion 04/21/2008 Cataract Chronic pancreatitis (CMS/HCC) Disease of thyroid gland (CMS/HCC) Dry eyes Esophageal spasm Fibromyalgia Headache 04/21/2008 Hypercholesteremia (CMS/HCC) IBS (irritable bowel syndrome) Lupus Migraine (CMS/HCC) Pain in limb 04/21/2008 Thoracic outlet syndrome Tremor, essential 07/20/2008 Past Surgical History: Procedure Laterality Date GALLBLADDER HYSTERECTOMY SHOULDER SURGERY No family history on file. Social History Tobacco Use Smoking status: Never Smokeless tobacco: Never Substance Use Topics Alcohol use: Not Currently Allergies: Aspirin, Theophylline, Sulfamethoxazole-trimethoprim, Celexa [citalopram], Butorphanol, Ciprofloxacin, Etodolac, Hydromorphone, Morphine, Oxycodone-acetaminophen, and Promethazine Vitals: 07/20/24 1412 BP: 132/84 Pulse: 72 SpO2: 99% Body mass index is 23.6 kg/m . weight: 133 lb 3.2 oz Neurologic exam: Mental status: Awake, alert to person, place and time. Language is fluent without aphasia. Attention and concentration are normal. Fund of knowledge is appropriate for level of education. Impaired 3 object recall. Impaired Luria 3 step Cranial nerves: CN II: Visual acuity is normal. Visual johansen full to confrontation. CN III, IV, : pupils equal round and reactive to light. Extraocular movements intact. No ptosis present. CN V: Facial sensation is normal. CN VII: Full and symmetric facial movement. CN VIII: Hearing is normal to finger rub bilaterally: CN IX and X: Palate elevates symmetrically. Normal gag reflex. CN XI: Shoulder shrug is normal bilaterally. CN XII: Tongue is midline without atrophy or fasciculation. Motor: Strength is 5/5 throughout. Bulk is normal. Sensory: Sensation is intact to light touch throughout Four extremities. Reflexes: Deep tendon reflexes are 2+ and symmetric throughout. Coordination: [id number] testing and rapid alternating movements are normal Gait: Normal Review and summary of old records: - neuropsych testing at [facility] demonstrates well-preserved cognition and memory. In fact, she demonstrated a strength in visual spatial skills including visual learning and memory, visual construction and visual spatial planning and organization and scanning with complex divided attention all which measured well above average to superior ranges. She demonstrates excellent cognitive reserve. No evidence of neurodegenerative disease. Findings are completely normal for age. Most likely concern for combination of superior depression, moderate anxiety pain and poor sleep sapping the attentional resources. -b12 and MMA WNL - CT angiogram of the head and neck on 08/17/2023: carotid and vertebral arteries without evidence of dissection or significant stenosis. -MRI of the brain without contrast on 08/17/2023: No acute intracranial abnormality -CT of the brain without contrast on 02/25/2023: No acute intracranial abnormality. No evidence of bleed or mass. Nonspecific white matter change consistent with small-vessel ischemic disease is also identified. -Thyroid stimulating hormone at [facility] on 04/20/2023: Normal Assessment/Plan Diagnoses and all orders for this visit: Memory impairment Family history of Alzheimer's disease Anxiety The patient does have memory impairment. She states this is worsening over the course of the last couple of years. She states she is afraid to drive so she stopped driving. She did have an MRI and CT angiogram of the head and neck which are unremarkable. She does have thyroid disease which is being treated. Neuropsych assessment and [facility] shows well-preserved memory and cognition and suggest that depression and anxiety and chronic pain and poor sleep are likely the etiology but find the perceived memory impairment issues. Plan: Previous allergy to memantine - hives Monitor clinically. The patient has continued complaints of some episodes of headache. She is being treated by primary care for this with medication which she states is helpful. She does see some worsening recently as she is battling with a sore on the inside of her mouth that is probably causing some increase in her headache as it is quite painful. She is having this treated. Pt has been fully educated on their diagnosis, lab results, treatment options, follow up plan, return instructions, and discussion of mental health issues documented in this encounter [facility] 06-20-2024 History of Present illness Narrative Subjective Patient ID: Skip Hogn is a 69 y.o. female who presents for Facial Pain Pt has had left jaw pain radiating to the ear, neck, face and forehead. Tx with mult abx, but no help. Increased neurontin no help. Has had sinus and brain imaging. Pt has a h/o reflex sympathetic dystyrophy and migraines. Pt used an oral appliance in the past. CTs of the head and temporal bone reviewed and are normal. MRI brain reviewed and no sinonasal or otologic abnormality evident. Review of Systems All other systems reviewed and are negative. No family history on file. Active Ambulatory Problems Diagnosis Date Noted Age-related nuclear cataract of both eyes 07/27/2023 Carpal tunnel syndrome on both sides 10/08/2023 Advancing dementia ([facility]/HCC) 10/08/2023 Abdominal pain 09/20/2009 Cervical spondylosis without myelopathy 07/10/2022 Fibromyalgia 09/20/2009 Idiopathic chronic pancreatitis ([facility]) 05/13/2018 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 region 06/03/2022 Resolved Ambulatory Problems Diagnosis Date Noted No Resolved Ambulatory Problems Past Medical History: Diagnosis Date Acid reflux Brachial neuritis or radiculitis 04/18/2014 Brachial plexus lesion 04/21/2008 Cataract Chronic pancreatitis ([facility]) Disease of thyroid gland ([facility]) Dry eyes Esophageal spasm Headache 04/21/2008 Hypercholesteremia ([facility]) IBS (irritable bowel syndrome) Lupus Migraine ([facility]) Pain in limb 04/21/2008 Thoracic outlet syndrome Tremor, essential 07/20/2008 Past Surgical History: Procedure Laterality Date GALLBLADDER HYSTERECTOMY SHOULDER SURGERY Allergies Allergen Reactions Aspirin Anaphylaxis Theophylline Other Reaction(s): Syncope [place], N/V, blurred vision, insomnia Sulfamethoxazole-Trimethoprim Other Reaction(s): GI Disturbance Celexa [Citalopram] Butorphanol Rash Other Reaction(s): Other: See Comments Ciprofloxacin Rash Other Reaction(s): Other: See Comments Etodolac Rash Hydromorphone Rash Morphine Other Reaction(s): GI Disturbance Oxycodone-Acetaminophen Rash Other Reaction(s): Other: See Comments Promethazine Current Outpatient Medications on File Prior to Visit Medication Sig Dispense Refill acetaminophen (Tylenol) 500 MG tablet Take 500 mg by mouth every 6 (six) hours if needed diazePAM (Valium) 5 MG tablet every 8 (eight) hours divalproex (Depakote) 125 MG EC tablet Take 125 mg by mouth in the morning and 125 mg in the evening and 125 mg before bedtime. Do not crush, chew, or split.. Docusate Sodium (DSS) 100 MG capsule Take 100 mg by mouth in the morning and 100 mg in the evening. gabapentin (Neurontin) 100 MG capsule ibuprofen 200 MG tablet Take 200 mg by mouth every 6 (six) hours if needed liothyronine (Cytomel) 5 MCG tablet pantoprazole (Protonix) 40 MG EC tablet 1 (one) time each day at the same time Plavix 75 MG tablet 1 (one) time each day at the same time promethazine (Phenergan) 25 MG tablet 1 tablet as needed Orally q6h for 5 days Rimegepant Sulfate (Nurtec) 75 MG tablet dispersible 1 tablet on the tongue and allow to dissolve Orally Repeat in 2 hours if necc, max 2/day for 10 days SUMAtriptan (Imitrex) 100 MG tablet Take 100 mg by mouth 1 (one) time if needed for migraine [DISCONTINUED] gentamicin (Garamycin) 0.3 % ophthalmic solution instill 1 DROP IN THE LEFT EYE FIVE TIMES DAILY FOR 10 DAYS 5 mL 1 [DISCONTINUED] omeprazole (PriLOSEC) [address] capsule Take 20 mg by mouth in the morning. [DISCONTINUED] prednisoLONE acetate (Pred-Forte) 1 % ophthalmic suspension instill 1 DROP IN BOTH EYES FOUR TIMES DAILY (IN THE MORNING, at noon, IN THE EVENING, and BEFORE bedtime) FOR 14 DAYS 5 mL 1 No current facility-administered medications on file prior to visit. Objective Last Recorded Vitals Vitals: 06/20/24 1020 BP: 110/71 Pulse: 64 ENT Physical Exam Constitutional Appearance: patient appears well-developed, well-nourished and well-groomed, Head and Face Appearance: head appears normal and face appears atraumatic; Palpation: TMJ tender on the left; Ear Ear Canals: right ear canal normal; left ear canal normal; Tympanic Membranes: right tympanic membrane normal; left tympanic membrane normal; Nose External Nose: nares patent bilaterally; external nose normal; Internal Nose: septum normal; Oral Cavity/Oropharynx Tongue: normal; Oral mucosa: normal; Hard palate: normal; Soft palate: normal; Tonsils: normal; Neck Neck: neck normal; neck palpation normal; Thyroid: thyroid normal; Respiratory Inspection: breathing unlabored; normal breathing rate; Auscultation: breath sounds are clear; Cardiovascular Inspection: extremities are warm and well perfused; no peripheral edema present; Auscultation: regular rate and rhythm; Assessment/Plan Diagnoses and all orders for this visit: Left facial pain Pt has had an extensive evaluation of her sx. There is no sign of sig sinonasal or otologic pat. She very clearly had left TMJ tenderness. Recommend a nightly oral appliance and evaluation by Dr Mullins. documented in this encounter [facility] 07-27-2023 History of Present illness Narrative Images [...] different lens options were explained including the [id number] fees for any upgrades. Intraocular lens (IOL) [...] (RGP) lenses occurred. documented in this encounter [facility] 06-23-2022 Note HNO ID: [id number] Author: Benjamin Moore PA-C Service: ? Author Type: Physician Condenser Winder Type: Progress Notes Filed: 06/23/2022 7:54 AM Note Text: AMBULATORY TELEPHONE VISIT Skip Hong has consented to this telephone encounter. Patient was unable to connect to [employer] Virtual Visit - call to patient to [...] Time Spent: 45 minutes Benjamin Moore PA-C [facility] 06-23-2022 History of Present illness Narrative AMBULATORY TELEPHONE VISIT Skip Hong has consented to this telephone encounter. Patient was unable to connect to [employer] Virtual Visit - call to patient to [...] Benjamin Moore PA-C documented in this encounter [facility] 06-04-2022 Note HNO ID: [id number] Author: Sangeetha Vasquez APRN.[employer] HACKER Service: ? Author Type: Nurse Practitioner Type: [...] person or virtual visit whatever patient preference. [facility] 06-04-2022 History of Present illness Narrative Per [...] Health Provider or Pain Management Provider at [facility]? No If answer is YES please [...] facility where the MRI/CT/myelogram was completed: [facility] [address] [place] [address] MRI/CT/myelogram viewable in Epic: No If not, please provide [phone] to fax in imaging reports for review. Also, please inform patient to hand carry imaging disc to appointment. XR (spine) within 12 months: Yes If YES, please ask for the name/address of the facility where the XR was completed: [facility] [address] [place] [address] Dr. Humphreys's patients: Have you had previous [...] injections and/or physical therapy was completed Injections: [facility] [address] [place] [address] PT: unable to recall facility Have you [...] where the surgery was completed: Additional Comments [phone] documented in this encounter [facility] 06-03-2022 Note HNO ID: [id number] Author: Celeste Khalil Research Coordinator Service: ? Author Type: Research Type: Progress Notes Filed: 06/04/2022 11:31 AM Note Text: Patient name: Skip Hong Are you being referred by a [facility] Provider or Pain Management Provider at [facility]? No If answer is YES please [...] facility where the MRI/CT/myelogram was completed: [place] [address] MRI/CT/myelogram viewable in Epic: No If not, please provide [phone] to fax in imaging reports for review. Also, please inform patient to hand carry imaging disc to appointment. XR (spine) within 12 months: Yes If YES,? please ask for the name/address of the facility where the XR was completed: [place] [address] Dr. Humphreys's patients: Have you had previous [...] injections and/or physical therapy was completed Injections: [facility] [address] [place] [address] PT: unable to recall facility Have you [...] where the surgery was completed: Additional Comments [phone] [facility] 05-27-2022 Evaluation note Encounter Date Diagnosis Assessment [...] and agrees. A referral will be sent [facility] Other evaluation note* Diagnosis Fibromyalgia- Primary Mylagia and myositis, unspecified Cervicalgia [facility] InformationNoHouse Party Other Evaluation note* Diagnosis Age-related nuclear cataract of both eyes- Primary documented in this encounter [facility]* Diagnosis Age-related nuclear cataract of both eyes documented in this encounter [facility]* Diagnosis Age-related nuclear cataract of both eyes documented in this encounter [facility]* Diagnosis Left facial pain- Primary Headache documented in this encounter [facility]* Diagnosis Memory impairment- Primary Memory loss Anxiety Anxiety state, unspecified documented in this encounter [facility] Healthcare[facility] general Narrative - Reported* Type Description [...] History arthroscopy shoulder Hospitalization History see above [facility] Other reason for visit NarrativeReferral update - pain mangementNoHouse Party Other Summary Purpose Family History No Family [...] Diagnosis 1 Neck pain (M54.2) Referral Organization [facility] Ne urosurgery Referring Provider First Name Prasad Referring Provider Last Name Maame Referring Provider Specialty Neurologica l Surgery Referred Organization [facility] t Referred Provider Bentley Bragg Referred Address [address] [address] ,[place], [place],[address] Referred Provider Specialty Pain Medicin e Referral Priority Routine General Notes Jean Pierre Ramírezn 022 08:31:51 AM >Received today and sent P2P Esthela Navarro 06/03/2022 02:35:54 PM >fyi patient declined seeing Dr Bragg, she stated she has returned to her previous PM provider in [place] Darrell Jenifer 06/03/2022 02:59:27 PM >OK, thank you for the update. Telephone encounter was sent Additional Source Comments INFORMATION SOURCE (unrecogn ized section and content) DATE CREATED AUTHOR 07/22/2018 [facility] DATE CREATED AUTHOR AUTHOR'S ORGANIZ ATION 06/23/2022 [facility] DATE CREATED AUTHOR AUTHOR'S ORGANIZ ATION 07/02/2022 [facility] DATE CREATED AUTHOR AUTHOR'S ORGANIZ ATION 01/19/2024 [place] [facility] DATE CREATED AUTHOR AUTHOR'S ORGANIZ ATION 01/20/2024 [place] [facility] DATE CREATED AUTHOR AUTHOR'S ORGANIZ ATION 01/27/2024 [place] [facility] DATE CREATED AUTHOR AUTHOR'S ORGANIZ ATION 07/22/2024 [facility] EPIC Source Comments (unrecognize d section and content) In the event this informatio n is protected by the Federal Confidentiality of Alcohol and Drug Abuse Patient Records regulations: The Federal rules restrict any use of the information to criminally investigate or prosecute any alcohol or drug abuse patient.[facility] the event this information is protected by the Federal Confidentiality of Alcohol and Drug Abuse Patient Records regulations: The Federal rules restrict any use of the information to criminally investigate or prosecute any alcohol or drug abuse patient.[facility] Care Teams (unrecognized sec tion and content) Water Sander Relationship Specialty Start Date End Date Anitha Mcgregor MD [address] [place] [address] PCP - General 09/07/09 Luli Roy (Hist), [address] [place] [address] Referring Gastroenterology 05/04/18 Water Sander Relationship Specialty Start Date End Date Anitha Mcgregor MD [address] [place] [address] PCP - General 09/07/09 Luli Roy (Hist), [address] [place] [address] Referring Gastroenterology 05/04/18 Water Sander Relationship Specialty Start Date End Date Anitha Mcgregor MD [address] [place] [address] PCP - General Family Medicine 07/27/23 Water Sander Relationship Specialty Start Date End Date Anitha Mcgregor MD [address] [place] [address] PCP - General Family Medicine 07/27/23 Oral Fernandez OD [address] [place] [facility] [place] [address] Referring Physician Optometry 01/11/24 Water Sander Relationship Specialty Start Date End Date Anitha Mcgregor MD [address] [facility] [place] [address] PCP - General Family Medicine 07/27/23 Oral Fernandez OD [address] [facility] [place] [address] Referring Physician Optometry 01/11/24 Water Sander Relationship Specialty Start Date End Date Anitha Mcgregor MD [address] [facility] [place] [address] PCP - General Family Medicine 07/27/23 Oral Fernandez OD [address] [place] [facility] [place] [address] Referring Physician Optometry 01/11/24 Water Sander Relationship Specialty Start Date End Date Anitha Mcgregor MD [address] [facility] [place] [address] PCP - General Family Medicine 07/27/23 Oral Fernandez OD [address] [place] [facility] [place] [address] Referring Physician Optometry 01/11/24 Water Sander Relationship Specialty Start Date End Date Anitha Mcgregor MD [address] [facility] [place] [address] PCP - General Family Medicine 07/27/23 Oral Fernandez OD [address] [place] [address] Referring Physician Optometry 01/11/24 Water Sander Relationship Specialty Start Date End Date Anitha Mcgregor MD [address] [place] [id number] PCP - General Family Medicine 07/27/23 Oral Fernandez OD [address] [place], [place] [id number] Referring Physician Optometry 01/11/24 Reason for Visit (unrecogniz ed section and content) Reason Comments Neck Pain Reason Comments Cataract Reason Comments Med Refill Reason Comments Facial Pain Reason Onset Date Comments Mouth Lesions 08/09/2024 FOR RECORDS PERTAINING TO PATIENTS WHO ARE [...] BE BASED ON THE PRIMARY CLINICAL RECORDS. [employer] provides no warranty or guarantee of the accuracy or completeness of information in this document.
== END 2024-08-10 21:17 | disposition home or self-care (01) ==
LOC: LAB 21:16
PROVIDERS: PCP Family Medicine; Visit Provider Family Medicine
DX: K12.0 Recurrent oral aphthae (principal)
CPT/HCPCS: 36415; 87070; 87252

== ENCOUNTER 2024-10-20 10:11 | Outpatient (OUT) | payer MEDICARE, SELFPAY ==
[2024-10-20 09:36] LABS: Basophils Absolute Auto 0.1 10^3/uL (0.0-0.1); Basophils Percent Auto 0.8 % (0.2-2.0); Eosinophils Absolute Auto 0.1 10^3/uL (0.0-0.7); Eosinophils Percent Auto 1.5 % (0.9-7.0); Hematocrit 43.2 % (36.0-48.0); Hemoglobin 14.2 g/dL (12.0-16.0); Immature Granulocytes Abs Auto 0.01 10^3/uL (0.00-0.03); Immature Granulocytes Pct Auto 0.2 % (0.0-0.5); Lymphocytes Absolute Auto 1.9 10^3/uL (1.2-3.8); Lymphocytes Percent Auto 30.6 % (20.5-60.0); Mean Corpuscular HGB Conc 32.9 g/dL (29.9-35.2); Mean Corpuscular Hemoglobin 31.3 pg (26.7-34.0); Mean Corpuscular Volume 95.2 fL (81.0-99.0); Monocytes Absolute Auto 0.7 10^3/uL (0.3-0.8); Monocytes Percent Auto 11.8 % (1.7-12.0); Neutrophils Absolute Auto 3.4 10^3/uL (1.4-6.5); Neutrophils Percent Auto 55.1 % (43.0-75.0); Platelet Count 322 10^3/uL (150-450); Red Blood Count 4.54 10^6/uL (4.20-5.40); Red Cell Distribution Width 13.2 % (11.0-15.0); White Blood Count 6.2 10^3/uL (4.0-11.0)
[2024-10-20 09:40] LABS: Estimated Average Glucose 117 mg/dL; Glycohemoglobin A1C 5.7 % (4.5-6.2)
[2024-10-20 10:33] LABS: Alanine Aminotransferase 29 U/L (14-59); Albumin Level 3.4 g/dL (3.4-5.0); Alkaline Phosphatase 114 U/L (46-116); Anion Gap 12.4; Aspartate Amino Transferase 18 U/L (15-37); BUN Creatinine Ratio 22.3; Bilirubin Total 0.3 mg/dL (0.2-1.0); Calcium 9.2 mg/dL (8.5-10.1); Carbon Dioxide 25.5 mmol/L (21.0-32.0); Chloride 103 mmol/L (98-107); Chol HDL Ratio 3.8; Cholesterol 245 mg/dL (<=200); Estimated GFR (African America >60 (>=60 mL/min/1.73m^2); Estimated GFR (Non-African Ame 59 (>=60 mL/min/1.73m^2); Free T3 3.43 pg/mL (2.18-3.98); Globulin 3.3 g/dL; Glucose 94 mg/dL (74-106); HDL Cholesterol 64 mg/dL (40-60); Potassium 3.9 mmol/L (3.5-5.1); Sodium 137 mmol/L (136-145); Thyroid Stimulating Hormone 2.201 uIU/mL (0.358-3.740); Total Protein 6.7 g/dL (6.4-8.2); Triglycerides 114 mg/dL (<=150); VLDL CHOLESTEROL 22.8 mg/dL
== END 2024-10-20 10:12 | disposition home or self-care (01) ==
LOC: LAB 10-21 10:11
PROVIDERS: PCP Family Medicine; Visit Provider Family Medicine
DX: Z00.00 Encounter for general adult medical examination without abnormal findings (principal); G43.909 Migraine, unspecified, not intractable, without status migrainosus; I10 Essential (primary) hypertension; E78.5 Hyperlipidemia, unspecified; R53.83 Other fatigue; R73.09 Other abnormal glucose
CPT/HCPCS: 36415; 80053; 80061; 83036; 84436; 84443; 84481; 85025

== ENCOUNTER 2025-02-04 13:34 | Emergency (ER) | payer MEDICARE, SELFPAY ==
--- OUTSIDE RECORDS SUMMARY | 2020-09-21 06:00 | XMS_ITS | Continuity of Care Document ---
Author Organization [facility] Address [address] [place] [address] Phone Care Team Providers Care Supervisor Plastering Name Role Phone Ronni Quezada Unavailable Unavailable [...] Diagnoses Date Provider Providers Copied on Encounter [facility], [address] [place], [place], [id number], [place] tel:[phone] COVID ECHD Covid-19 (chief complaint) No Information Diamondi DO Rudolph. [address] [place], [place], [id number], [place]. tel:[phone] [facility], [address] [place], [place], [id number], [place] tel:[phone] COVID ECHD No Information Visci Ronni. [address] [place], [place], [id number], [place]. tel:[phone] Family History Family Member Type Diagnosis Age At Onset No Information Immunizations Vaccine Date Status Comments Moderna COVID administered Source: New Im munization Record Moderna COVID administered Source: New Im munization Record Payers Payer name Insurance type Covered libertarian ID Authoriza tion(s) Medicare PPS MB [id number] Medicare PPS MB [id number] Medicare PPS MB [id number] Social History Type Description Quantity Date Captured [...]
--- OUTSIDE RECORDS SUMMARY | 2024-12-15 06:00 | XMS_ITS ---
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 Phone Noe Mcgregor Primary Care Provider [phone] Allergies Allergen (clinical drug ingredient) Drug/Non Drug Allergy documented on EMR Reaction Allergy Type Onset Date Status adhesive tape (uncoded) rash Allergy Active aspirin Aspirin anaphylaxis Drug Allergy Active sulfamethoxazole / trimethoprim Bactrim Unknown Drug Allergy Active butorphanol Butorphanol Tartrate hallucinatiosns Drug Allergy Active ciprofloxacin Cipro vomiting Drug Allergy Active hydromorphone Dilaudid rash Drug Allergy Active promethazine Phenergan jerking Drug Allergy Active ezetimibe Zetia pancreatitis Drug Allergy Active etodolac Lodine rash Drug Allergy Active ketorolac Ketorolac Unknown Drug Allergy Active niacin Niacin severe pain all over Drug Allergy Active Substance with 4-ypnifrk-3-methylglu taryl-coenzyme A reductase inhibitor mechanism of action (substance) Statins pancreatitis Drug Allergy Active tramadol Tramadol rash Drug Allergy Active morphine Morphine unknown Drug Allergy Active orphenadrine Orphenadrine Unknown Drug Allergy Active sumatriptan SUMAtriptan low HR Drug Allergy Active REASON FOR VISIT nausea, diarrhea, stomach pain- nasal drainage, having pancreatitis discomfort Medications Medication SIG (Take, Route, Frequency, Duration) Notes Start Date End Date Status valACYclovir HCl 1 GM 1 tablet Orally tid for 10 days then 1 po Q day forever 07/20/2024 Active Valium 5 MG 1 tablet as needed O rally tid for 7 days 05/11/2024 Active Protonix 40 MG 1 tablet Orally Once a day for 30 days 04/28/2024 Active Triamcinolone Acetonide 0.1 % 1 application do not rinse afterwards and avoid eating or drinking for 30 minutes Mouth/Throat Q 4 h for 30 days 06/13/2024 Active Dicyclomine HCl 20 MG 1 tablet Orally QI D for 7 days 12/15/2024 Active Promethazine HCl 25 MG 1 tablet as neede d Orally q6h for 5 days 03/07/2024 Active Omeprazole 20 MG 1 capsule 30 minutes before morning meal Orally Once a day 10/23/2023 Active Plavix 75 MG every other day Oral ly Once a day for 90 days 10/30/2023 Active Nitroglycerin 0.4 MG 1 tablet under the tongue and allow to dissolve as needed. Take every 5 minutes up to 3 times if chest pain persists Sublingual Three times a day for 30 days Active Nurtec 75 MG 1 tablet on the tong ue and allow to dissolve Orally for 30 days Active Liothyronine Sodium 5 MCG TAKE 1 TABLET ONCE DAILY ANGELIKA EMPTY STOMACH for 90 Active Naratriptan HCl 1 MG 1 tablet Orally Twi ce a day for 5 day(s) 11/14/2024 Active HYDROcodone-Acetaminophen 5-325 MG 1 tablet Orally qid - prn for 7 05/11/2024 Active Levothyroxine Sodium 25 MCG 1 tablet in the morning on an empty stomach Orally Once a day for 30 day(s) 11/03/2024 Active Ginseng Active Gabapentin 100 MG 1 at bedtime daily f or 90 days Active Depakote 125 MG 1 tablet Orally Twic e a day for 30 days 06/13/2024 Active Social History Tobacco Use: Social History Observation Description Date Details (start date - stop date) Never Smoker NA - NA Tobacco Use/Smoking Question Answer Notes Patient is a nonsmoker Problems Problem Type SNOMED Code ICD Code Onset Dates Problem Status W/U Status Risk Notes Problem Severe recurrent 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 without psychotic features (22012674) 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, 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, recurrent, 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) Active confirmed Problem Gastroenteritis (02750305) Gastroenteritis (K52.9) Active confirmed Vital Signs Weight 133.8 lbs 12/15/2024 Height 63 in 12/15/2024 Blood pressure systolic 122 mm Hg 12/16/19 25 Blood pressure diastolic 80 mm Hg 025 BMI 23.7 kg/m2 12/15/2024 Encounters Encounter Location Date Provider Diagnosis [facility] [address] [place] [address] 12/15/2024 Noe Mcgregor Depression of infanc y to early childhood associate teacher, 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, recurrent, 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 F33.2 and Gastroenteritis K52.9 Assessments Encounter Date Diagnosis (ICD Code) Assessment Notes Treatment Notes Treatment Clinical Notes Section Notes 12/15/2024 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 Stay hydrated by sucking on ice chips or taking small sips of water. You can also try drinking clear soda, clear broths or noncaffeinated sports drinks. Stop eating solid foods for a few hours to let your stomach settle. East back into eating by eating bland, gipq-at-aspsuu foods like crackers, toast, gelatin, bananas, rice and chicken. Try to avoid foods/substances including dairy products, caffeine, alcohol, nicotine and fatty or highly seasoned foods. Medications such as ibuprofen or tylenol can make your stomach more upset, so use sparingly if at all. Also avoid fols-bjq-rthbdqk anti-diarrheal medications because it can make it harder for your body to eliminate the virus. Plan Of Treatment Medication Medication Name Sig Start Date Stop Date Notes Dicyclomine HCl 20 MG 1 tablet Orally QID for 7 days 12/15 Treatment Notes Assessment Notes Depression of infancy to ear ly childhood, 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, recurrent, 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 disused meds and councelgin recommendation sister just - has PRN valium for that using edibles for Gastroenteritis Get plenty of rest. Stay hydrated by sucking on ice chips or taking small sips of water. You can also try drinking clear soda, clear broths or noncaffeinated sports drinks. Stop eating solid foods for a few hours to let your stomach settle. East back into eating by eating bland, vebu-zm-jxdazn foods like crackers, toast, gelatin, bananas, rice and chicken. Try to avoid foods/substances including dairy products, caffeine, alcohol, nicotine and fatty or highly seasoned foods. Medications such as ibuprofen or tylenol can make your stomach more upset, so use sparingly if at all. Also avoid oqln-yje-qhuhwpr anti-diarrheal medications because it can make it harder for your body to eliminate the virus. Pending Test Test Name Order Date CULTURE, STOOL 12/15/2024 C DIFF TOX PCR STOOL 12/15/2024 OCCULT BLOOD X 1, STOOL 12/15/2024 Progress Notes * Pamella HONGOB:1955 ([age] yo F)Acc No.[id number]:12/15/2024 Progress Note Patient: Skip ESTRELLA Provider: Anu Mcgregor ([facility])MD :1955 A ge:69 Y S ex:Female Date:12/15/2024 Address:[address] [place], [place] [id number] Check In:09:50 AM ESTCheck O ut:10:37 AM EST Subjective: * Chief Complaints: * N ausea, diarrhea, stomach pain- nasal drainageHaving pancreatitis discomfort * HPI: G astroenteritis: The patient complains of s ymptoms of the stomach flu. The symptoms have been present for 1 -2 days. The symptoms are m oderate. The patient h as not been exposed to sick contacts. Symptomatic treatment has included O TC medication. Associated symptoms include a bdominal pain, diarrhea, stomach cramps, nausea, vomiting, chills, fever. * ROS: G eneral/Constitutional: Recent Weight Gain d enies. S kin: Rash d enies. C ardiovascular: Edema d enies. P alpitations d enies. ? G astrointestinal: Comments S ee HPI for details. * Active Problem List M54.5 Low back pain Modified On:06/04/2023W/U Status:confirmed E78.5 Hyperlipidemia Modified On:08/17/2023W/U Status:confirmed K21.9 GERD (gastroesophage al reflux disease) Modified On:02/13/2023W/U Status:confirmed M54.12 Cervical radiculopat hy Modified On:04/29/2023W/U Status:confirmed G56.00 Carpal tunnel syndro me Modified On:02/13/2023 Status:confirmed M85.80 Osteopenia Modified On:02/13/2023 Status:confirmed R42 Vertigo Modified On:03/06/2023 Status:confirmed L30.9 Eczema Modified On:02/13/2023 Status:confirmed K57.90 Diverticulosis Modified On:02/13/2023 Status:confirmed G43.909 Migraine Modified On:02/13/2023 Status:confirmed M54.9 Back pain Modified On:03/26/2023 Status:confirmed K59.00 Constipation Modified On:03/18/2023 Status:confirmed R13.10 Dysphagia Modified On:02/13/2023 Status:confirmed R00.2 Palpitations Modified On:02/13/2023 Status:confirmed M79.7 Fibromyalgia Modified On:02/13/2023 Status:confirmed M47.812 Cervical spondylosis Modified On:02/13/2023 Status:confirmed K63.89 Inflammatory bowel d isease Modified On:02/13/2023 Status:confirmed K58.9 Irritable bowel synd lio (IBS) Modified On:02/13/2023 Status:confirmed I69.854 Hemiparesis of left nondominant side as late effect of other cerebrovascular disease Modified On:02/13/2023 Status:confirmed F41.8 Other specified anxi ety disorders Modified On:08/19/2022 Status:confirmed G43.909 Migraine, unspecifie d, not intractable, without status migrainosus Modified On:08/30/2022 Status:confirmed R10.12 Left upper quadrant abdominal pain Modified On:12/10/2022 Status:confirmed M62.838 Trapezius muscle spa sm Modified On:04/27/2023 Status:confirmed J01.90 Acute sinus infectio n Modified On:05/25/2023 Status:confirmed K12.0 Aphthous ulcer Modified On:06/13/2023U Status:confirmed B02.9 Shingles Modified On:07/29/2023 Status:confirmed R47.01 Aphasia Modified On:07/29/2023 Status:confirmed R41.3 Memory loss Modified On:07/29/2023 Status:confirmed E23.6 Pituitary cyst Modified On:08/19/2023 Status:confirmed F03.90 Dementia Modified On:09/07/2023U Status:confirmed M79.671 Foot pain, right Modified On:10/23/2023U Status:confirmed M19.90 Arthritis Modified On:10/30/2023 Status:confirmed 577.0 Pancreatitis, acute Modified On:11/12/2023U Status:confirmed G90.50 Reflex sympathetic d ystrophy Modified On:05/05/2024 Status:confirmed S03.40XA TMJ (sprain of tempo romandibular joint) Modified On:06/22/2024 Status:confirmed N39.0 Acute UTI Modified On:06/22/2024 Status:confirmed K12.0 Aphthous stomatitis Modified On:08/10/2024 Status:confirmed N18.31 Chronic kidney disea se, stage 3a Modified On:11/03/2024 Status:confirmed E03.9 Hypothyroid Modified On:11/03/2024 Status:confirmed 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 early childhood associate teacher, 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, recurrent, 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 Modified On:12/15/2024 Status:confirmed K52.9 Gastroenteritis Modified On:12/15/2024 Status:confirmed * Medical History: * Surgical History: C HOLECYSTECTOMY ERCP- Dr. Brownlee 06/2018Epidural Steroid Inj C-Spine ilateral C5-C7 Medial Branch Block 07/2022 * Hospitalization/Major Diagno stic Procedure: s ee above * Family History: F ather: , Lung Disease, stroke, Colitis, arthritis,PVD, diagnosed with Unspecified essential hypertension, Unspecified heart disease. M other: , Lung Disease, diagnosed with Unspecified essential hypertension, Unspecified heart disease. B rother(s): Heart Disease, lung disease, epilepsy. S ister(s): alive, Lung disease, heart disease, Raynauds, fibromyalgia, RSDS, Migraine. S on(s): alive. 3 brother(s) , 1 sister(s) . 3 son(s) . . 1 Brother - lung/heart disease 1 Adopted son. * Social History: T obacco Use: T obacco Use/Smoking P atient is a n onsmoker * Medications: T akingDepakote(Divalproex Sodium) 125 MG Tablet Delayed Release 1 tablet Orally Twice a day Gabapentin 100 MG Capsule 1 at bedtime daily Ginseng HYDROcodone- Acetaminophen 5-325 MG Tablet 1 tablet Orally qid - prn Levothyroxine Sodium 25 MCG Tablet 1 tablet in the morning on an empty stomach Orally Once a day Liothyronine Sodium 5 MCG Tablet TAKE 1 TABLET ONCE DAILY ANGELIKA EMPTY STOMACH Naratriptan HCl 1 MG Tablet 1 tablet Orally Twice a day Nitroglycerin 0.4 MG Tablet Sublingual 1 tablet under the tongue and allow to dissolve as needed. Take every 5 minutes up to 3 times if chest pain persists Sublingual Three times a day Nurtec(Rimegepant Sulfate) 75 MG Tablet Disintegrating 1 tablet on the tongue and allow to dissolve Orally Omeprazole 20 MG Capsule Delayed Release 1 capsule 30 minutes before morning meal Orally Once a day Plavix(Clopidogrel Bisulfate) 75 MG Tablet every other day Orally Once a day Promethazine HCl 25 MG Tablet 1 tablet as needed Orally q6h Protonix(Pantoprazole Sodium) 40 MG Tablet Delayed Release 1 tablet Orally Once a day Triamcinolone Acetonide 0.1 % Paste 1 application do not rinse afterwards and avoid eating or drinking for 30 minutes Mouth/Throat Q 4 h valACYclovir HCl 1 GM Tablet 1 tablet Orally tid then 1 po Q day foreverValium(diazePAM) 5 MG Tablet 1 tablet as needed Orally tid Medication List reviewed and reconciled with the patientTaking Depakote(Divalproex Sodium) 125 MG Tablet Delayed Release 1 tablet Orally Twice a day Taking Gabapentin 100 MG Capsule 1 at bedtime daily Taking Ginseng Taking HYDROcodone-Acetaminophen 5-325 MG Tablet 1 tablet Orally qid - prn Taking Levothyroxine Sodium 25 MCG Tablet 1 tablet in the morning on an empty stomach Orally Once a day Taking Liothyronine Sodium 5 MCG Tablet TAKE 1 TABLET ONCE DAILY ANGELIKA EMPTY STOMACH Taking Naratriptan HCl 1 MG Tablet 1 tablet Orally Twice a day Taking Nitroglycerin 0.4 MG Tablet Sublingual 1 tablet under the tongue and allow to dissolve as needed. Take every 5 minutes up to 3 times if chest pain persists Sublingual Three times a day Taking Nurtec(Rimegepant Sulfate) 75 MG Tablet Disintegrating 1 tablet on the tongue and allow to dissolve Orally Taking Omeprazole 20 MG Capsule Delayed Release 1 capsule 30 minutes before morning meal Orally Once a day Taking Plavix(Clopidogrel Bisulfate) 75 MG Tablet every other day Orally Once a day Taking Promethazine HCl 25 MG Tablet 1 tablet as needed Orally q6h Taking Protonix(Pantoprazole Sodium) 40 MG Tablet Delayed Release 1 tablet Orally Once a day Taking Triamcinolone Acetonide 0.1 % Paste 1 application do not rinse afterwards and avoid eating or drinking for 30 minutes Mouth/Throat Q 4 h Taking valACYclovir HCl 1 GM Tablet 1 tablet Orally tid then 1 po Q day foreverTaking Valium(diazePAM) 5 MG Tablet 1 tablet as needed Orally tid Medication List reviewed and reconciled with the patient * Allergies: A spirin: anaphylaxis - Allergy - Criticality Highadhesive tape: rash - AllergyLodine: rash - AllergyDilaudid: rash - AllergyMorphine: unknown - AllergyStatins: pancreatitis - Allergy - Criticality HighZetia: pancreatitis - Allergy - Criticality HighCipro: vomiting - AllergyPhenergan: jerking - AllergyButorphanol Tartrate: hallucinatiosns - AllergyTramadol: rash - AllergyNiacin: severe pain all overKetorolac: AllergyOrphenadrine: AllergyBactrimSUMAtriptan: low HR - Side Effectsno[Allergies Verified] Objective: * Vitals: W t:133.8lbs, Ht: 63 in, BP:122/80mm Hg, BMI:23.7Index, Ht-cm: 160.02 cm, Wt-k.69 kg. * Examination: G eneral Examination: GENERAL APPEARANCE: well developed, well nourished, in no acute distress. ENT: Normocephalic , Atraumatic. EYES: pupils equal, round, reactive to light and accomodations, sclera non-icteric. EARS: normal. ORAL CAVITY: mucosa moist. THROAT: clear. LUNGS: clear to auscultation bilaterally. CARDIO: regular rate and rhythm, S1, S2 normal, no murmurs. ABDOMEN: liver nontender, ___soft, no significant tenderness, liver, spleen not felt, no rebound, negative Martin's sign, no guarding or rigidity, no hepatosplenomegaly, no hernias present, no masses palpable, no rebound tenderness. SKIN: warm and dry, no suspicious lesions. EXTREMITIES: no clubbing, cyanosis, or edema. NEUROLOGIC: nonfocal, motor strength of upper/lower extremities intact , sensory exam intact. NECK/THYROID: neck supple, full range of motion, no cervical lymphadenopathy. Assessment: * Assessment: 1. G astroenteritis - K52.9 (Primary) 2 . D epression of infancy to early childhood associate teacher, 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, recurrent, 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 - F33.2 Plan: * Treatment: 2. D epression of infancy to early childhood associate teacher, 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, recurrent, 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 Notes: disused meds and councelgin recommendation sister just - has PRN valium for that using edibles for * Procedure Codes: * * Sign off status: Completed Visit Status: C HK (Check Out) true * Provider: Anu Mcgregor ([facility])MD Date: 12/15/2024 Generated for Garrett ribeiro/Hal/eTransmitting on: 02/04/2025 01:41 PM EDT History and Physical Notes * HPI (History of Present Illness) Category Sub-Category Detail Notes Category Not es Gastroenteritis The patient complains of symptoms of t he stomach flu The symptoms have been present for 1-2 d ays The symptoms are moderate The patient has not been exposed to sick contacts Symptomatic treatment has included OTC m edication Associated symptoms include abdominal pa in, diarrhea, stomach cramps, nausea, vomiting, chills, fever Examination Category Sub-Category Detail Notes Category Not es General Examination GENERAL APPEARANCE: well dev eloped, well nourished, in no acute distress ENT: Normocephalic , Atra umatic EYES: pupils equal, round, reactive to light and accomodations, sclera non-icteric EARS: normal THROAT: clear CARDIO: regular rate and rhy thm, S1, S2 normal, no murmurs LUNGS: clear to auscultatio n bilaterally ABDOMEN: liver nontender, ___ soft, no significant tenderness, liver, spleen not felt, no rebound, negative Martin's sign, no guarding or rigidity, no hepatosplenomegaly, no hernias present, no masses palpable, no rebound tenderness NEUROLOGIC: nonfocal, motor stre ngth of upper/lower extremities intact , sensory exam intact SKIN: warm and dry, no nadine picious lesions EXTREMITIES: no clubbing, cyanosi s, or edema ORAL CAVITY: mucosa moist NECK/THYROID: neck supple, full ra nge of motion, no cervical lymphadenopathy
--- OUTSIDE RECORDS SUMMARY | 2024-12-19 05:26 | XMS_ITS ---
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 Role Phone Meche Noe Primary Care Provider Allergies Allergen (clinical drug ingredient) Drug/Non Drug Allergy documented on EMR Reaction Allergy Type Onset Date Status adhesive tape (uncoded) rash Allergy Active aspirin Aspirin anaphylaxis Drug Allergy Active sulfamethoxazole / trimethoprim Bactrim Unknown Drug Allergy Active butorphanol Butorphanol Tartrate hallucinatiosns Drug Allergy Active ciprofloxacin Cipro vomiting Drug Allergy Active dicyclomine Dicyclomine HCl Dizziness Drug Allergy Active hydromorphone Dilaudid rash Drug Allergy Active promethazine Phenergan jerking Drug Allergy Active ezetimibe Zetia pancreatitis Drug Allergy Active etodolac Lodine rash Drug Allergy Active ketorolac Ketorolac Unknown Drug Allergy Active niacin Niacin severe pain all over Drug Allergy Active Substance with 3-airkatc-1-methylglu taryl-coenzyme A reductase inhibitor mechanism of action (substance) Statins pancreatitis Drug Allergy Active tramadol Tramadol rash Drug Allergy Active morphine Morphine unknown Drug Allergy Active orphenadrine Orphenadrine Unknown Drug Allergy Active sumatriptan SUMAtriptan low HR Drug Allergy Active REASON FOR VISIT FYI Encounters Encounter Location Date Provider Diagnosis [facility] [address] [place] [address] 12/19/2024 Noe Meche Plan Of Treatment No Information Progress Notes * Pamella CALEROOB:1955 ([age] yo F)Acc No.[id number]:12/19/2024 Patient: Mariel Skip ROSSI :1955 A ge:69 Y S ex:Female Address:[address] [place] [id number] Subjective: * Chief Complaints: * F KHMER * Medical History: * Surgical History: * Hospitalization/Major Diagno stic Procedure: * Medications: * Allergies: A spirin: anaphylaxis - Allergy - Criticality Highadhesive tape: rash - AllergyLodine: rash - AllergyDilaudid: rash - AllergyMorphine: unknown - AllergyStatins: pancreatitis - Allergy - Criticality HighZetia: pancreatitis - Allergy - Criticality HighCipro: vomiting - AllergyPhenergan: jerking - AllergyButorphanol Tartrate: hallucinatiosns - AllergyTramadol: rash - AllergyNiacin: severe pain all overKetorolac: AllergyOrphenadrine: AllergyBactrimSUMAtriptan: low HR - Side EffectsDicyclomine HCl: Dizziness Objective: * Vitals: * Physical Examination: Assessment: Plan: * Treatment: * Procedure Codes: * true * Date: Generated for Garrett ribeiro/Hal/Ingridsmitting on: 0 02/04/2025 01:40 PM EDT
--- OUTSIDE RECORDS SUMMARY | 2024-12-22 11:45 | XMS_ITS ---
Author Organization The [facility] in [place] Address [address] [place] [address] Care Team Providers Care Medical Affairs Director Name Role Phone Noe Mcgregor Primary Care Provider REASON FOR VISIT stomach pain vomiting Encounters Encounter Location Date Provider Diagnosis [facility] [address] [place] [address] 12/22/2024 Noe Mcgregor Plan Of Treatment No Information Progress Notes * Pamella HONGOB:1955 ([age] yo F)Acc No.[id number]:12/22/2024 UNLOCKED PROGRESS NOTE Progress Note Patient: Skip ESTRELLA Provider: Anu Mcgregor MD (TTC) :1955 A ge:69 Y S ex:Female Date:12/22/2024 Address:[address] [place], [place] [id number] Subjective: * Chief Complaints: * 1 . Stomach pain vomiting. * Medical History: Objective: * Vitals: Assessment: Plan: * Treatment: * * Electronic signature of Noe Mcgregor MD, [id number] on 02/04/2025 at 01:41 PM EDT Sign off status: Pending Visit Status: C ANCPHONE (Cancelled Phone) * Provider: Anu Mcgregor MD (TTC) Date: 12/22/2024 Generated for Printi ng/Faxing/eTransmitting on: 02/04/2025 01:41 PM EDT
[2025-02-04] VITALS (48 sets, daily range): BP systolic 82–141; BP diastolic 51–88; PULSE 53–125; TEMP 36.4; O2SAT 92–100; BMI 24.3
--- OUTSIDE RECORDS SUMMARY | 2025-02-04 13:41 | XMS_ITS | Clinical Summary ---
Author Organization [facility] Address [address] [place] [address] Care Team Providers Care Director Of Community Education Name Role Phone Min Mcgregor MD Primary Care Provider [phone] JimJosh wilks OD Unavailable Allergies Active Allergy Reactions Criticality Noted Date Comments Aspirin Anaphylaxis High 09/13/2009 Butorphanol Rash Low 09/13/2009 Other Reaction(s): Other: See Comments Citalopram 06/20/2024 Ciprofloxacin Rash Low 06/03/2022 Other Reaction(s): Other: See Comments Etodolac Rash Low 09/13/2009 Hydromorphone Rash Low 04/10/2011 Morphine Low 09/13/2009 Other Reaction(s): GI Disturbance Oxycodone-Acetaminophen Rash Low 06/03/2022 Other Reaction(s): Other: See Comments Promethazine Low 09/13/2009 Sulfamethoxazole-Trimethop rim Medium 06/03/2022 Other Reaction(s): GI Disturbance Theophylline High 06/03/2022 Other Reaction(s): Syncope [place], N/V, blurred vision, insomnia Medications liothyronine (Cytomel) 5 MCG tablet 3 Active gabapentin (Neurontin) 100 MG capsule 3 Active acetaminophen (Tylenol) 500 MG tablet Take 500 mg by mouth every 6 (six) hours if needed Active ibuprofen 200 MG tablet Take 200 mg by mouth every 6 (six) hours if needed Active SUMAtriptan (Imitrex) 100 MG tablet Take 100 mg by mouth 1 (one) time if needed for migraine Active Plavix 75 MG tablet 1 (one) time each day at the same time 4 Active diazePAM (Valium) 5 MG tablet every 8 (eight) hours 4 Active Docusate Sodium (DSS) 100 MG capsule Take 100 mg by mouth in the morning and 100 mg in the evening. Active pantoprazole (Protonix) 40 MG EC tablet 1 (one) time each day at the same time 4 Active promethazine (Phenergan) 25 MG tablet 1 tablet as needed Orally q6h for 5 days 4 Active Rimegepant Sulfate (Nurtec) 75 MG tablet dispersible 1 tablet on the tongue and allow to dissolve Orally Repeat in 2 hours if necc, max 2/day for 10 days 4 Active divalproex (Depakote) 125 MG EC tablet Take 125 mg by mouth in the morning and 125 mg in the evening and 125 mg before bedtime. Do not crush, chew, or split.. Active triamcinolone (Kenalog) 0.1 % oral paste APPLY TO THE AFFECTED AREA do not rinse afterwards and avoid eating or drinking for 30 MINUTES EVERY 4 HOURS 5 Active valACYclovir (Valtrex) 1 g tablet Take 1,000 mg by mouth in the morning and 1,000 mg in the evening and 1,000 mg before bedtime. 5 Active Active Problems Problem Noted Date Diagnosed Date Carpal tunnel syndrome on both sides 10/08/2023 Advancing dementia 10/08/2023 Age-related nuclear cataract of both eyes 2023 Cervical spondylosis without myelopathy 07/10/19 Overview (06/17/2024): Added automatically from request for surgery [id number] 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 region 06/03/2022 Overview (06/17/2024): Added automatically from request for surgery [id number] Idiopathic chronic pancreatitis 05/13/2018 Abdominal pain 09/20/2009 Fibromyalgia 09/20/2009 Social History Tobacco Use Types Packs/Day Years Used Date Smoking Tobacco: Never Smokeless Tobacco: Never Tobacco Cessation:Counseling Given: Not Answered Alcohol Use Standard Drinks/Week Comments Not Currently 0 (1 standard drink = 0.6 oz pur e alcohol) Comments Unknown Sex and Gender Information Value Date Recorded Sex Assigned at Not on file Legal Sex Female 6:56 PM EDT Gender Identity Not on file Sexual Orientation Not on file Last Filed Vital Signs Vital Sign Reading Time Taken Comments Blood Pressure 124/80 08/15/2024 10:22 AM EST Pulse 73 08/15/2024 10:22 AM EST Temperature - - Respiratory Rate 16 10/08/2023 12:15 PM EDT Oxygen Saturation 99% 07/20/2024 2:12 PM EST Inhaled Oxygen Concentration - - Weight 60.3 kg (133 lb) 08/15/2024 10:22 AM EST Height 160 cm (5' 3 ) 08/15/2024 10:22 AM EST Body Mass Index 23.56 08/15/2024 10:22 AM EST Plan of Treatment Health Maintenance Due Date Last Done Comments CT Colonography 1955 Colonoscopy 1955 Colorectal Cancer Screening 1955 FIT-DNA 1955 FIT 1955 FOBT 1955 Sigmoidoscopy 1955 Pneumococcal Vaccine: 65+ Ye ars (1 of 1 - PCV) 01/11/2006 Mammogram 03/26/2023 03/26/2022 Influenza Vaccine (#1) 2025 04/09/2022, 2019 Procedures Procedure Name Priority Date/Time Associated Diagnosis Comments BI MAMMOGRAM SCREENING TOMOSYNTHESIS BILATERAL Routine 03/26/2022 from Last 3 Months or Most Recently Relevant to Health Maintenance Results * Bilateral screening mammogram with tomosynthesis (03/26/2022) Anatomical Region Laterality Modality Breast Bilateral Mammography Narrative 03/26/2022 12:00 AM EDT PERFORMED AT [facility] LOCATION:[place] [address] Patient: ABDIAS Maciel Exam Date: 03/26/2022 : 1955 Gender:F Ordering : DR BAR TEJADA . Admission #: [id number] Family : Order #: [id number] CLICK HERE TO VIEW EXAM RADIOLOGY REPORT PROCEDURE: MAMMOGRAM SCREENING 3D BILATERAL CAD COMPARISON: MG MAMM SCREEN QING W CAD 07/21/2017. MG MAMM SCREEN QING W CAD 06/26/2016. INDICATIONS: Screening mammography Calculator Name NCI Breast Cancer Risk Assessment Tool 5 Year Breast Cancer Risk 1.40% Lifetime Breast Cancer Risk 4.90% Personal Breast Cancer No Personal Ovarian Cancer No Treatments None Family Cancers Cousin-maternal with breast cancer at age 29. LOCATION: [facility] BREAST COMPOSITION: Heterogeneously dense which may obscure small masses. FINDINGS: DIAGNOSTIC CATEGORY [...] PALPABLE LUMP SHOULD BE BIOPSIED. Dictated by: Booker Rasheed MD on 03/26/2022 at 09:51 Approved by: Booker Rasheed MD on 03/26/2022 at 09:53 Procedure Note CONVERSION, GENERIC - 12/19/2022 PERFORMED AT [facility] LOCATION:[place] [address] Patient: ABDIAS Maciel Exam Date: 03/26/2022 : 1955 Gender:F Ordering : DR BAR TEJADA . Admission #: [id number] Family : Order #: [id number] CLICK HERE TO VIEW EXAM RADIOLOGY REPORT PROCEDURE: MAMMOGRAM SCREENING 3D BILATERAL CAD COMPARISON: MG MAMM SCREEN QING W CAD 07/21/2017. MG MAMM SCREEN QING W CAD 06/26/2016. INDICATIONS: Screening mammography Calculator Name NCI Breast Cancer Risk Assessment Tool 5 Year Breast Cancer Risk 1.40% Lifetime Breast Cancer Risk 4.90% Personal Breast Cancer No Personal Ovarian Cancer No Treatments None Family Cancers Cousin-maternal with breast cancer at age 29. LOCATION: [facility] BREAST COMPOSITION: Heterogeneously dense which may obscure small masses. FINDINGS: DIAGNOSTIC CATEGORY 2--BENIGN FINDING. NO CHANGE FROM COMPARISON. Scattered benign-appearing calcifications are present. Scattered benign-appearing lymph nodes are present. RIGHT BREAST: No significant suspicious finding. Stable surgical clipsright axilla LEFT BREAST: No significant suspicious finding. RECOMMENDATIONS: ROUTINE MAMMOGRAM AND CLINICAL EVALUATION IN 12 MONTHS. PLEASE NOTE: A NORMAL MAMMOGRAM DOES NOT EXCLUDE THE POSSIBILITY OFBREAST CANCER. A CLINICALLY SUSPICIOUS PALPABLE LUMP SHOULD BE BIOPSIED. Dictated by: Booker Rasheed MD on 03/26/2022 at 09:51 Approved by: Booker Rasheed MD on 03/26/2022 at 09:53 Bar Tejada DO IMG BI PROCEDURES Final Result from Last 3 Months or Most Recently Relevant to Health Maintenance Insurance [employer] Care Teams Director Of Community Education Relationship Specialty Start Date End Date Min Mcgregor MD PCP - General Family Medicine 07/27/23 Josh Fernandez OD [address] [place] [address] Referring Physician Optometry 01/11/24
--- OUTSIDE RECORDS SUMMARY | 2025-02-04 13:41 | XMS_ITS | Encounter Summary ---
Author Organization [facility] Address [id number] [address] [place] [address] Care Team Providers Care Sap Portal Consultant Name Role Phone Min Mcgregor MD Primary Care Provider [phone] Encounter Details Date Type Department Care Team (Late st Contact Info) Description 06/10/2022 Telephone [facility] [address] [place] [address] Ariadne Munoz RN Social History Tobacco Use Types Packs/Day Years Used Date Smoking Tobacco: Never Smokeless Tobacco: Never Childcare Answer Date Recorded Childcare Unknown 11/24/2018 Employment Answer Date Recorded Employment Unknown 11/24/2018 Comments Unknown Sex and Gender Information Value Date Recorded Sex Assigned at Not on file Legal Sex Female 11:50 AM EDT Gender Identity Not on file Sexual Orientation Not on file COVID-19 Exposure Response Date Recorded In the last month, have you been in contact with someone who was confirmed or suspected to have Coronavirus / COVID-19? No / Unsure 06/03/2022 11:44 AM EST documented as of this encounter Miscellaneous Notes * Telephone Encounter - Ariadne Munoz RN - 06/10/2022 2:40 PM EST Patient left tearful message stating her pain is terrible. She is scheduled for Left C5,6 NRI on 06/20/2022. Patient states pain is so bad and she doesn't know what to do. Call returned to patient. She states pain is the same location as it was at OV however the intensity is very severe. She states pain in neck and goes into Left scapula and into head. She called PCPbri and he is out of the office until next week. Patient states PCP usually gives her a shot oftoradol and a muscle relaxer which helps. She is unable to get into see the SMOKING PIPE MOUNTER until . The PCP office also gave her the option of going to ED. Patient states she has currently been taking IBU 600 mg q 6 hours, using heat, and attempting to stretch. No relief. Patient takes zanaflex at HS to which she states makes her drowsy but does not help with pain. She has Percocet which she has not taken as of this call. She is informed that she can take the percocet and promotion writer will forward message to today's provider as [facility] will not be in until . Please advise. * Telephone Encounter - Sangeetha Mijares PA-C - 06/10/2022 2:40 PM EST Noted agree with current treatment * Telephone Encounter - Ariadne Munoz RN - 06/10/2022 2:40 PM EST Call placed to patient to inform her of provider's response. Patient is advised to go to the ED if her pain gets worse or does not get any better. She states the ED won't do anything . Patient was asked if she took the offered appointment with SMOKING PIPE MOUNTER at PCP's office. She said she did not but will callto get in w/ SMOKING PIPE MOUNTER if pain persists. documented in this encounter Plan of Treatment Not on file documented as of this encounter Visit Diagnoses Not on filedocumented in this encounter Care Teams Sap Portal Consultant Relationship Specialty Start Date End Date Min Mcgregor MD PCP - General Family Medicine 05/30/22 documented as of this encounter
--- OUTSIDE RECORDS SUMMARY | 2025-02-04 13:41 | XMS_ITS | Encounter Summary ---
Author Organization [facility] Address [address] [place] [address] Care Team Providers Care Waterproofing Mixer Name Role Phone Min Mcgregor MD Primary Care Provider [phone] Josh Fernandez OD Unavailable Encounter Details Date Type Department Care Team (Late st Contact Info) Description 08/15/2024 Orders Only [facility] [address] [facility] [address] [place] [address] Min Mcgregor MD [address] [facility] [place] [address] Social History Tobacco Use Types Packs/Day Years Used Date Smoking Tobacco: Never Smokeless Tobacco: Never Alcohol Use Standard Drinks/Week Comments Not Currently 0 (1 standard drink = 0.6 oz pur e alcohol) Comments Unknown Sex and Gender Information Value Date Recorded Sex Assigned at Not on file Legal Sex Female 6:56 PM EDT Gender Identity Not on file Sexual Orientation Not on file documented as of this encounter Plan of Treatment Not on file documented as of this encounter Procedures Procedure Name Priority Date/Time Associated Diagnosis Comments SCANNED LABS Routine 08/10/2024 11:27 AM EST documented in this encounter Results * SCANNED LABS (08/10/2024 11:27 AM EST) us Min Mcgregor MD LAB CHG PERFORMABLES Final Resu lt documented in this encounter Visit Diagnoses Not on filedocumented in this encounter Care Teams Waterproofing Mixer Relationship Specialty Start Date End Date Min Mcgergor MD PCP - General Family Medicine 07/27/23 Josh Fernandez OD [address] [place] [address] Referring Physician Optometry 01/11/24 documented as of this encounter
--- OUTSIDE RECORDS SUMMARY | 2025-02-04 13:41 | XMS_ITS | Encounter Summary ---
Author Organization [facility] Address [address] [place] [address] Care Team Providers Care Jewel Inspector Name Role Phone Min Mcgregor MD Primary Care Provider + Luli Roy (Hist) Unavailable [phone] Shimon Roblero Unavailable [phone] Source Comments In the event this information is protected by the Federal Confidentiality of Alcohol and Drug AbusePatient Records regulations: The Federal rules restrict any use of the information to criminally investigate or prosecute any alcohol or drug abuse patient.[facility] Encounter Details Date Type Department Care Team (Late st Contact Info) Description 01/11/2021 [place] [address] Provider, f Medicare Coverage of Physical Exams Social History Tobacco Use Types Packs/Day Years Used Date Smoking Tobacco: Never Smokeless Tobacco: Never Alcohol Use Standard Drinks/Week Comments No 0 (1 standard drink = 0.6 oz pur e alcohol) Area Deprivation Index Answer Date Asim rded National Score (1-100), lower number is lower ri sk Not on file 05/21/2020 State Score (1-10), lower number is lower risk N ot on file 05/21/2020 Data from: https://www.neighborhoodatlas.medicine.[facility].edu/. 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
--- OUTSIDE RECORDS SUMMARY | 2025-02-04 13:41 | XMS_ITS | Patient Health Record ---
Author Organization [facility] [place] Address [address] [place] [address] Care Team Providers Care It Project Lead Name Role Phone Duncansabrina Noe Primary Care Provider Donna Torres Unavailable [phone] Allergies Allergen (clinical drug ingredient) Drug/Non Drug [...] all over Drug Allergy Active Substance with 2-lmyndum-8-methylglu taryl-coenzyme A reductase inhibitor mechanism of action (substance) Statins pancreatitis Drug Allergy Active tramadol Tramadol rash Drug Allergy Active morphine Morphine unknown Drug Allergy Active orphenadrine Orphenadrine Unknown Drug Allergy Active sumatriptan SUMAtriptan low HR Drug Allergy Active Results Component Value Reference Range Notes MM tomosynthesis screening B I Reviewed date:04/11/2024 09:10:13 PM Interpretation: Performing Lab: Notes/Report: Source Facility: [place] [address] [place] [address] Mammography Report Signed Patient: SKIP HONG MR#: [id number] : 1955 Acct:[id number] Age/Sex: 69 / F ADM Date: 04/11/24 Loc: MAMMO Attending Dr: Anitha Mcgregor M.D. Ordering Physician: Anitha Mcgregor M.D. Results: Date of Service: 04/11/24 Follow Up: Procedure(s): MM tomosynthesis screening BI Accession Number(s): [id number] cc: Anitha Mcgregor M.D. Patient Name: SKIP HONG MR#: [id number] : 1955 Exam Date: 04/11/2024 Ordering Doctor: DR Anitha Mcgregor . RADIOLOGY REPORT PROCEDURE: MM TOMOSYNTHESIS SCREENING BI COMPARISON: MG MAMM SCREEN 3D QING CAD, 03/26/2022. MM TOMOSYNTHESIS SCREENING BI, 04/08/2023. INDICATIONS: screening for malignant neoplasm Calculator Name NCI Breast Cancer Risk Assessment Tool 5 Year Breast Cancer Risk 1.40% Lifetime Breast Cancer Risk 4.60% Personal Breast Cancer No Personal Ovarian Cancer No Treatments None Family Cancers Cousin-maternal with breast cancer at age 29. LOCATION: [facility] BREAST COMPOSITION: The breasts are heterogeneously dense,which may obscure small masses. FINDINGS: DIAGNOSTIC CATEGORY 2--BENIGN FINDING. NO CHANGE FROM COMPARISON. Scattered benign-appearing calcifications are present. Scattered benign-appearing lymph nodes are present. RIGHT BREAST: No significant suspicious finding. Axillary surgical clips, stable LEFT BREAST: No significant suspicious finding. RECOMMENDATIONS: ROUTINE MAMMOGRAM AND CLINICAL EVALUATION IN 12 MONTHS. PLEASE NOTE: A NORMAL MAMMOGRAM DOES NOT EXCLUDE THE POSSIBILITY OF BREAST CANCER. A CLINICALLY SUSPICIOUS PALPABLE LUMP SHOULD BE BIOPSIED. Dictated by: Booker Rasheed MD on 04/11/2024 at 13:56 Approved by: Booker Rasheed MD on 04/11/2024 at 14:00 Dictated By: Booker Rasheed M.D. Signed By: 04/11/24 140 DD/ 00 TD/TT: Tightener: [place] [address] Mammography Report Signed Patient: SKIP HONG MR#: [id number] : 1955 Acct:[id number] Age/Sex: 69 / F ADM Date: 04/11/24 Loc: MAMMO Attending Dr: Ronan Mcgregor M.D. Ordering Physician: Anitha Mcgregor M.D. Results: Date of Service: 04/11/24 Follow Up: Procedure(s): MM tomosynthesis screening BI Accession Number(s): [id number] cc: Anitha Mcgregor M.D. Patient Name: SKIP HONG MR#: [id number] : 1955 Exam Date: 04/11/2024 Ordering Doctor: DR Anitha Mcgregor . RADIOLOGY REPORT PROCEDURE: MM TOMOSYNTHESIS SCREENING BI COMPARISON: MG MAMM SCREEN 3D QING CAD, 03/26/2022. MM TOMOSYNTHESIS SCREENING BI, 04/08/2023. INDICATIONS: screeni ng for malignant neoplasm Calculator Name NCI Breast Cancer Risk Assessment Tool 5 Year Breast Cancer Risk 1.40% Lifetime Breast Canc er Risk 4.60% Personal Breast Canc er No Personal Ovarian Can cer No Treatments None Family Cancers Cousin-maternal with breast cancer at age 29. LOCATION: [facility] BREAST COMPOSITION: The breasts are heterogeneously dense,which may obscure small masses. FINDINGS: DIAGNOSTIC CATEGORY 2--BENIGN FINDING. NO CHANGE FROM COMPARISON. Scattered benign-appearing calcifications are present. Scattered benign-appearing lym ph nodes are present. RIGHT BREAST: No significant suspicious finding. Axillary surgical clips, stable LEFT BREAST: No significant suspicious finding. RECOMMENDATIONS: ROUTINE MAMMOGRAM AN D CLINICAL EVALUATION IN 12 MONTHS. PLEASE NOTE: A MARIA GUADALUPE L MAMMOGRAM DOES NOT EXCLUDE THE POSSIBILITY OF BREAST CANCER. A CLINICALLY SUSPICIOUS PALPABLE LUMP SHOULD BE BIOPSIED. Dictated by: Booker rondon MD on 04/11/2024 at 13:56 Approved by: Booker rondon MD on 04/11/2024 at 14:00 Dictated By: Anu Rasheed M.D. Signed By: 04/11/24 1402 DD/ 140 TD/TT: Tightener: CHRISTINA int auditory canals w/o c on Reviewed date:06/09/2024 05:55:59 PM Interpretation: Performing Lab: Notes/Report: Source Facility: [facility]-[address] [place] [address] [address] [address] Scan Report Signed Patient: SKIP HONG MR#: [id number] : 1955 Acct:[id number] Age/Sex: 69 / F ADM Date: 06/06/24 Loc: CT Attending Dr: Anitha Mcgregor M.D. Ordering Physician: Anitha Mcgregor M.D. Date of Service: 06/06/24 Procedure(s): CT int auditory canals w/o con Accession Number(s): [id number] cc: Anitha Mcgregor M.D. [address] [address] Patient Name: SKIP HONG MRN: [id number] date: 1955 Sex: F Assigned Patient Location: CT Current Patient Location: Accession/Order Number: [id number] Exam Date: 06/06/2024 08:53 Report Date: 06/09/2024 08:31 At the request of: ANITHA MCGREGOR Procedure: CT int auditory canals w/o con CT int auditory canals w/o con, 06/06/2024 8:53 AM EST INDICATION: Mastoiditis COMPARISON: Prior MRI of the brain dated 03/14/2024 TECHNIQUE: Axial images of 1 mm were obtained from the mastoids without contrast with coronal and sagittal reconstruction. Dose reduction techniques were achieved by using automated exposure control and/or adjustment of mA and/or kV according to patient size and/or use of iterative reconstruction technique. FINDINGS: The visualized paranasal sinuses are clear. No abnormality of the visualized brain parenchyma is noted. There is status post bilateral lens replacement. The frontal and sphenoethmoidal recesses are patent. No abnormality of bilateral maxillary ostium and ethmoidal infundibulum is noted. The lamina papyracea is unremarkable bilaterally. Left Xiao bullosa is noted. The carotid arteries have normal intracranial pathway. The fovea ethmoidalis is mildly asymmetrical, left higher than right. No pneumatization of anterior clinoid process is noted. The olfactory fossa measures 3 mm right and 4 mm left . The optic nerves show bone coverage. There is no suspicious osteolytic or osteoblastic lesion. Focal calcification in the right retina/sclera. There is status post bilateral lens replacement. The visualized portions of remainder of orbits and mastoid air cells are unremarkable. No suprahyoid lymphadenopathy is noted. CT/CT int auditory canals w/o con IMPRESSION: No abnormality of the mastoid air cells is noted.. Electronically authenticated by: CHAD GUSTAFSON Date: 06/09/2024 08:31 Dictated By: Chad Gustafson M.D. Signed By: 06/09/24832 DD/ 0 TD/TT: Tightener: [place] [address] CT Scan Report Signed Patient: SKIP HONG MR#: [id number] : 1955 Acct:[id number] Age/Sex: 69 / F ADM Date: 06/06/24 Loc: CT Attending Dr: Ronan Mcgregor M.D. Ordering Physician: Anitha Mcgregor M.D. Date of Service: 06/06/24 Procedure(s): CT int auditory canals w/o con Accession Number(s): [id number] cc: Anitha Mcgregor M.D. [facility] [place] [address] Patient Name: SKIP HONG MRN: [id number] date: 1955 Sex: F Assigned Patient Location: CT Current Patient Location: Accession/Order Numb er: [id number] Exam Date: 08:53 Report Date: 06/09/2024 08:31 At the request of: ANITHA MCGREGOR Procedure: CT int auditory canals w/o con CT int auditory tabitha ls w/o con, 06/06/2024 8:53 AM EST INDICATION: Mastoiditis COMPARISON: Prior MR I of the brain dated 03/14/2024 TECHNIQUE: Axial cesar ges of 1 mm were obtained from the mastoids without contrast with garza l and sagittal reconstruction. Dose reduction techniques were achieved by using automated exposure control and/or adjustment of mA and/or kV according to patient size and/or use of iterative reconstruc tion technique. FINDINGS: The visualized paran juan sinuses are clear. No abnormality of th e visualized brain parenchyma is noted. There is status post bilateral lens replacement. The frontal and sphenoethmoidal recesses are patent. No abnormality of bilateral maxillary ostium and ethmoidal infundibulum is noted. The lamina papyracea is unremarkable bilaterally. Left Xiao bullosa is noted. The carotid arteries have normal intracranial pathway. The fovea ethmoidali s is mildly asymmetrical, left higher than right. No pneumatization of anterior clinoid process is noted. The olfactory fossa measures 3 mm right and 4 mm left . The optic nerves ganga w bone coverage. There is no suspicio us osteolytic or osteoblastic lesion. Focal calcification in the right retina/sclera. There is status post bilateral lens replacement. The visualized porti ons of remainder of orbits and mastoid air cells are unremarkable. No suprahyoid lymphadenopathy is noted. C T/CT int auditory canals w/o con IMPRESSION: No abnormality of th e mastoid air cells is noted.. Electronically authenticated by: CHAD GUSTAFSON Date: 06/09/2024 08:31 Dictated By: Chad Gustafson M.D. Signed By: 06/09/24 0833 DD/ 0831 TD/TT: Tightener: LAB TESTING Reviewed date:08/21/2024 09:54:43 AM Interpretation: Performing Lab: Notes/Report: [id number] Viral Culture, General [facility] , Miscellaneous Test COMMENT . Test Ordered: [id number] Viral Culture, General Viral Culture, General Note: BN No virus isolated. Reference Range: . Please indicate source of specimen on all future request forms. Performed at: [address] [id number] Lean Engineer: Yasmine Trinh MD, Phone: [phone] Performed at: [address] [id number] Lean Engineer: Samir Newberry PhD, Phone: [phone] Performing Lab: see note [facility] LB Upper Respiratory Culture Reviewed date:08/14/2024 12:38:01 PM Interpretation: Performing Lab: Notes/Report: [facility] , Upper Respiratory Culture See Below For Report Upper Respiratory Culture Upper Respiratory Culture Routine respiratory [place] Upper Respiratory Culture Upper Respiratory Culture Performed at: [facility] Upper Respiratory Culture Upper Respiratory Culture [address], [place] [id number] Upper Respiratory Culture Upper Respiratory Culture Lean Engineer: Samir Newberry PhD, Phone: [phone] Upper Respiratory Culture Performing Lab: see note LC - [facility] LB SEE REPORT - Manager Council Id 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 Ordering Physician: Anitha Mcgregor M.D. Date of Service: 03/14/24 Procedure(s): MR pituitary wo/w con Accession Number(s): [id number] cc: Anitha Mcgregor M.D. 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 FINDINGS: The cerebral sulci as well as ventricular system are appropriate for age. There is no restricted diffusion. Hyperintensities on T2 and FLAIR images in the garza radiata and centrum semiovale with sparing of U fibers are nonspecific, statistically most likely consistent with mild microvascular ischemic changes. There is no intracranial mass, mass effect, midline shift, intra or extra-axial fluid collection or large hemorrhage. No abnormal enhancing lesion is noted. Pituitary gland: No abnormality of the pituitary gland is noted. The pituitary stalk is in midline. The cavernous sinuses and optic chiasma are unremarkable. Normal flow-void in the intracranial vessels is noted. The visualized portions of orbits, mastoid air cells as well as paranasal sinuses are unremarkable. There is status post bilateral lens replacement. MR/MR pituitary wo/w con IMPRESSION: No acute intracranial process is noted. No abnormality of the pituitary gland is noted. Electronically authenticated by: CHAD GUSTAFSON Date: 03/14/2024 13:17 Dictated By: Chad Gustafson M.D. Signed By: 03/14/241318 DD/ 16 TD/TT: Tightener: [place] [address] Magnetic Resonance Report Signed Patient: SKIP HONG MR#: [id number] : 1955 Acct:[id number] Age/Sex: 69 / F ADM Date: 03/14/24 Loc: LAB Attending Dr: Ronan Mcgregor M.D. Ordering Physician: Anitha Mcgregor M.D. Date of Service: 03/14/24 Procedure(s): pituitary wo/w con Accession Number(s): [id number] cc: Anitha Mcgregor M.D. [facility] [place] [address] Patient Name: SKIP HONG MRN: [id number] date: 1955 Sex: F Assigned Patient Location: LAB Current Patient Location: LAB Accession/Order Numb er: [id number] Exam Date: 03/14/2024 08:22 Report Date: 03/14/2024 13:17 At the request of: ANITHA MCGREGOR Procedure: MR boothit vandana wo/w con MR pituitary wo/w co n, 03/14/2024 8:22 AM EDT INDICATION: Pituitar y Cyst E23.6 COMPARISON: Prior MR I of the head dated 08/17/2023 TECHNIQUE: Multiplan ar, multisequential MRI images of brain were obtained without and with injection of contrast. FINDINGS: The cerebral sulci a s well as ventricular system are appropriate for age. There is no restrict ed diffusion. Hyperintensities on T2 and FLAIR images in the garza radiata a nd centrum semiovale with sparing of U fibers are nonspecific, statistically most likely consistent with mild microvascular ischemic changes. There is no intracra nial mass, mass effect, midline shift, intra or extra-axial fluid collection or large hemorrhage. No abnormal enhancin g lesion is noted. Pituitary gland: No abnormality of the pituitary gland is noted. The pituitary stalk is in midline. The cavernous sinuses and optic chiasma are unremarkable. Normal flow-void in the intracranial vessels is noted. The visualized porti ons of orbits, mastoid air cells as well as paranasal sinuses are unremarkable. There is status post bilateral lens replacement. M R/MR pituitary wo/w con IMPRESSION: No acute intracrania l process is noted. No abnormality of th e pituitary gland is noted. Electronically authenticated by: CHAD GUSTAFSON Date: 03/14/2024 13:17 Dictated By: Chad Gustafson M.D. Signed By: 03/14/24 1319 DD/ 1317 TD/TT: Tightener: CT cervical spine wo con Reviewed date:06/06/2024 07:48:35 PM Interpretation: Performing Lab: Notes/Report: Source Facility: [place] [address] [place] [address] CT Scan Report Signed with Addenda Patient: SKIP HONG MR#: [id number] : 1955 Acct:[id number] Age/Sex: 69 / F ADM Date: 02/26/24 Loc: RAD Attending Dr: Anitha Mcgregor M.D. Ordering Physician: Anitha Mcgregor M.D. Date of Service: 02/26/24 Procedure(s): CT cervical spine wo con Accession Number(s): [id number] cc: Anitha Mcgregor M.D. ADDENDUM [facility] [place] [address] Patient Name: SKIP HONG MRN: [id number] date: 1955 Sex: F Assigned Patient Location: [facility] Current Patient Location: CT Accession/Order Number: [id number] Exam Date: 02/26/2024 11:40 Report Date: 03/01/2024 13:21 At the request of: ANITHA MCGREGOR Procedure: CT cervical spine wo con Begin Addendum #1 No lesion of the suprasellar cistern or sella turcica by this modality. No evidence for Rathke's cleft cyst. Original Report EXAM: CT cervical spine wo con, CT head/brain wo con HISTORY: CONCUSSION S06. 0X9A COMPARISON: None available at the time of dictation. TECHNIQUE: Axial unenhanced CT images were obtained through the brain. Individualized dose optimization technique was used for the performed procedure by employing the following: Automated exposure control, adjustment of the mA and/or kV according to patient's size, and/or the use of the iterative construction technique. Coronal and sagittal reformats were performed. FINDINGS: No acute intracranial abnormality. No acute infarct, hemorrhage or mass. No midline shift. Carrera-white matter differentiation is preserved. Ventricles and sulci are normal in size. No acute osseous abnormality. Paranasal sinuses are clear. Mastoid air cells are open. Orbits are normal. CERVICAL SPINE: No acute fracture or dislocation of the cervical spine. Moderate degeneration at the atlantodental interval. Craniocervical junction is unremarkable. Mild degeneration at C4-C5 and C5-C6. Prevertebral soft tissues are normal. No cervical adenopathy. Bilateral apical lung scarring. Thyroid gland is normal. No supraclavicular adenopathy. Addendum Dictated By: Timbo Lieberman M.D. Addendum Signed By: 06/06/24 1 150 Addendum Cosigned By: DD/ TD/TT: / ADDENDUM CT/CT cervical spine wo con IMPRESSION: 1. No acute intracranial abnormality. No acute intracranial infarct visualized by this modality. (MRI is more sensitive). No acute intracranial hemorrhage 2. No acute fracture or dislocation of the cervical spine. Electronically authenticated by: TIMBO LIEBERMAN Date: 03/01/2024 13:21 Addendum Dictated By: Timbo Lieberman M.D. Addendum Signed By: 06/06/24 1 150 Addendum Cosigned By: DD/ TD/TT: / [place] [address] Patient Name: SKIP HONG MRN: [facility]:[id number] date: 1955 Sex: F Assigned Patient Location: [facility] Current Patient Location: [facility] Accession/Order Number: [id number] Exam Date: 02/26/2024 11:40 Report Date: 02/26/2024 12:18 At the request of: ANITHA MCGREGOR Procedure: CT cervical spine wo con EXAM: CT cervical spine wo con, CT head/brain wo con HISTORY: CONCUSSION S06.0X9A COMPARISON: None available at the time of dictation. TECHNIQUE: Axial unenhanced CT images were obtained through the brain. Individualized dose optimization technique was used for the performed procedure by employing the following: Automated exposure control, adjustment of the mA and/or kV according to patient's size, and/or the use of the iterative construction technique. Coronal and sagittal reformats were performed. FINDINGS: No acute intracranial abnormality. No acute infarct, hemorrhage or mass. No midline shift. Carrera-white matter differentiation is preserved. Ventricles and sulci are normal in size. No acute osseous abnormality. Paranasal sinuses are clear. Mastoid air cells are open. Orbits are normal. CERVICAL SPINE: No acute fracture or dislocation of the cervical spine. Moderate degeneration at the atlantodental interval. Craniocervical junction is unremarkable. Mild degeneration at C4-C5 and C5-C6. Prevertebral soft tissues are normal. No cervical adenopathy. Bilateral apical lung scarring. Thyroid gland is normal. No supraclavicular adenopathy. CT/CT cervical spine wo con IMPRESSION: 1. No acute intracranial abnormality. No acute intracranial infarct visualized by this modality. (MRI is more sensitive). No acute intracranial hemorrhage 2. No acute fracture or dislocation of the cervical spine. Electronically authenticated by: TIMBO LIEBERMAN Date: 02/26/2024 12:18 Dictated By: Timbo Lieberman M.D. Signed By: 02/26/24 1221 DD/ 1218 TD/TT: Tightener: [place] [address] CT Scan Report Signed with Addenda Patient: SKIP HONG MR#: [id number] : 1955 Acct:[id number] Age/Sex: 69 / F ADM Date: 02/26/24 Loc: RAD Attending Dr: Ronan Mcgregor M.D. Ordering Physician: Anitha Mcgregor M.D. Date of Service: 02/26/24 Procedure(s): CT cervical spine wo con Accession Number(s): [id number] cc: Anitha Mcgregor M.D. ADDENDUM [facility] [place] [address] Patient Name: SKIP HONG MRN: [id number] date: 1955 Sex: F Assigned Patient Location: RAD Current Patient Location: CT Accession/Order Numb er: [id number] Exam Date: 02/26/2024 11:40 Report Date: 03/01/2024 13:21 At the request of: ANITHA MCGREGOR Procedure: CT cervic al spine wo con Begin Addendum # 1 No lesion of the suprasellar cistern or sella turcica by this modality. No evidence for Rathke' s cleft cyst. Original Report EXAM: CT cervical sp ine wo con, CT head/brain wo con HISTORY: CONCUSSION S06. 0X9A COMPARISON: None available at the time of dictation. TECHNIQUE: Axial unenhanced CT images were obtained through the brain. Individualized dose optimization technique was used for the performed procedure by employing the following: Automated exposure control, adjustment of the mA and/or kV according to patient's size, and/or the use of the iterative construction techniq ue. Coronal and sagittal reformats were performed. FINDINGS: No acute intracrania l abnormality. No acute infarct, hemorrhage or mass. No midline shift. Carrera-white matter differentiation is preserved. Ventricles and sulci are normal in size. No acute osseous abnormality. Paranasal sinuses ar e clear. Mastoid air cells are open. Orbits are normal. CERVICAL SPINE: No acute fracture or dislocation of the cervical spine. Moderate degeneratio n at the atlantodental interval. Craniocervical junct ion is unremarkable. Mild degeneration at C4-C5 and C5-C6. Prevertebral soft tissues are normal. No cervical adenopathy. Bilateral apical francia g scarring. Thyroid gland is normal. No supraclavicular adenopathy. Addendum Dictated By : Timbo Lieberman M.D. Addendum Signed By: 06/06/24 1 150 Addendum Cosigned By: DD/ TD/TT: / ADDENDUM C T/CT cervical spine wo con IMPRESSION: 1. No acute intracra nial abnormality. No acute intracranial infarct visualized by this modality. (M RI is more sensitive). No acute intracranial hemorrhage 2. No acute fracture or dislocation of the cervical spine. Electronically authenticated by: TIBMO LIEBERMAN Date: 03/01/2024 13:21 Addendum Dictated By : Timbo Lieberman M.D. Addendum Signed By: 06/06/24 1 150 Addendum Cosigned By: DD/ TD/TT: / [place] [address] Patient Name: SKIP HONG MRN: [id number] date: 1955 Sex: F Assigned Patient Location: [facility] Current Patient Location: RAD Accession/Order Numb er: [id number] Exam Date: 02/26/2024 11:40 Report Date: 02/26/2024 12:18 At the request of: ANITHA MCGREGOR Procedure: CT cervic al spine wo con EXAM: CT cervical sp ine wo con, CT head/brain wo con HISTORY: CONCUSSION S06.0X9A COMPARISON: None available at the time of dictation. TECHNIQUE: Axial unenhanced CT images were obtained through the brain. Individualized dose optimization technique was used for the performed procedure by employing the following: Automated exposure control, adjustment of the mA and/or kV according to patient's size, and/or the use of the iterative construction techniq ue. Coronal and sagittal reformats were performed. FINDINGS: No acute intracrania l abnormality. No acute infarct, hemorrhage or mass. No midline shift. Carrera-white matter differentiation is preserved. Ventricles and sulci are normal in size. No acute osseous abnormality. Paranasal sinuses ar e clear. Mastoid air cells are open. Orbits are normal. CERVICAL SPINE: No acute fracture or dislocation of the cervical spine. Moderate degeneratio n at the atlantodental interval. Craniocervical junct ion is unremarkable. Mild degeneration at C4-C5 and C5-C6. Prevertebral soft tissues are normal. No cervical adenopathy. Bilateral apical francia g scarring. Thyroid gland is normal. No supraclavicular adenopathy. C T/CT cervical spine wo con IMPRESSION: 1. No acute intracra nial abnormality. No acute intracranial infarct visualized by this modality. (M RI is more sensitive). No acute intracranial hemorrhage 2. No acute fracture or dislocation of the cervical spine. Electronically authenticated by: TIMBO LIEBERMAN Date: 02/26/2024 12:18 Dictated By: Shirin Lieberman M.D. Signed By: 02/26/24 1221 DD/ 1218 TD/TT: Tightener: CT head/brain wo con Reviewed date:06/06/2024 07:48:34 PM Interpretation: Performing Lab: Notes/Report: Source Facility: [place] [address] [place] [address] CT Scan Report Signed with Michael Patient: SKIP HONG MR#: [id number] : 1955 Acct:[id number] Age/Sex: 69 / F ADM Date: 02/26/24 Loc: RAD Attending Dr: Anitha Mcgregor M.D. Ordering Physician: Anitha Mcgregor M.D. Date of Service: 02/26/24 Procedure(s): CT head/brain wo con Accession Number(s): [id number] cc: Anitha Mcgregor M.D. ADDENDUM The [address] [address] Patient Name: SKIP HONG MRN: [id number] date: 1955 Sex: F Assigned Patient Location: [facility] Current Patient Location: CT Accession/Order Number: [id number] Exam Date: 02/26/2024 11:40 Report Date: 03/01/2024 13:21 At the request of: ANITHA MCGREGOR Procedure: CT head/brain wo con Begin Addendum #1 No lesion of the suprasellar cistern or sella turcica by this modality. No evidence for Rathke's cleft cyst. Original Report EXAM: CT cervical spine wo con, CT head/brain wo con HISTORY: CONCUSSION S06. 0X9A COMPARISON: None available at the time of dictation. TECHNIQUE: Axial unenhanced CT images were obtained through the brain. Individualized dose optimization technique was used for the performed procedure by employing the following: Automated exposure control, adjustment of the mA and/or kV according to patient's size, and/or the use of the iterative construction technique. Coronal and sagittal reformats were performed. FINDINGS: No acute intracranial abnormality. No acute infarct, hemorrhage or mass. No midline shift. Carrera-white matter differentiation is preserved. Ventricles and sulci are normal in size. No acute osseous abnormality. Paranasal sinuses are clear. Mastoid air cells are open. Orbits are normal. CERVICAL SPINE: No acute fracture or dislocation of the cervical spine. Moderate degeneration at the atlantodental interval. Craniocervical junction is unremarkable. Mild degeneration at C4-C5 and C5-C6. Prevertebral soft tissues are normal. No cervical adenopathy. Bilateral apical lung scarring. Thyroid gland is normal. No supraclavicular adenopathy. Addendum Dictated By: Timbo Lieberman M.D. Addendum Signed By: 06/06/24 1 150 Addendum Cosigned By: DD/ TD/TT: / ADDENDUM CT/CT head/brain wo con IMPRESSION: 1. No acute intracranial abnormality. No acute intracranial infarct visualized by this modality. (MRI is more sensitive). No acute intracranial hemorrhage 2. No acute fracture or dislocation of the cervical spine. Electronically authenticated by: TIMBO LIEBERMAN Date: 03/01/2024 13:21 Addendum Dictated By: Timbo Lieberman M.D. Addendum Signed By: 06/06/24 1 150 Addendum Cosigned By: DD/ TD/TT: / [place] [id number] Patient Name: SKIP HONG MRN: [id number] date: 1955 Sex: F Assigned Patient Location: [facility] Current Patient Location: [facility] Accession/Order Number: [id number] Exam Date: 02/26/2024 11:40 Report Date: 02/26/2024 12:18 At the request of: ANITHA MCGREGOR Procedure: CT head/brain wo con EXAM: CT cervical spine wo con, CT head/brain wo con HISTORY: CONCUSSION S06.0X9A COMPARISON: None available at the time of dictation. TECHNIQUE: Axial unenhanced CT images were obtained through the brain. Individualized dose optimization technique was used for the performed procedure by employing the following: Automated exposure control, adjustment of the mA and/or kV according to patient's size, and/or the use of the iterative construction technique. Coronal and sagittal reformats were performed. FINDINGS: No acute intracranial abnormality. No acute infarct, hemorrhage or mass. No midline shift. Carrera-white matter differentiation is preserved. Ventricles and sulci are normal in size. No acute osseous abnormality. Paranasal sinuses are clear. Mastoid air cells are open. Orbits are normal. CERVICAL SPINE: No acute fracture or dislocation of the cervical spine. Moderate degeneration at the atlantodental interval. Craniocervical junction is unremarkable. Mild degeneration at C4-C5 and C5-C6. Prevertebral soft tissues are normal. No cervical adenopathy. Bilateral apical lung scarring. Thyroid gland is normal. No supraclavicular adenopathy. CT/CT head/brain wo con IMPRESSION: 1. No acute intracranial abnormality. No acute intracranial infarct visualized by this modality. (MRI is more sensitive). No acute intracranial hemorrhage 2. No acute fracture or dislocation of the cervical spine. Electronically authenticated by: TIMBO LIEBERMAN Date: 02/26/2024 12:18 Dictated By: Timbo Lieberman M.D. Signed By: 02/26/24 1221 DD/ 1218 TD/TT: Tightener: [place] [address] CT Scan Report Signed with Addenda Patient: SKIP HONG MR#: [id number] : 1955 Acct:[id number] Age/Sex: 69 / F ADM Date: 02/26/24 Loc: RAD Attending Dr: Ronan Mcgregor M.D. Ordering Physician: Anitha Mcgregor M.D. Date of Service: 02/26/24 Procedure(s): CT head/brain wo con Accession Number(s): [id number] cc: Anitha Mcgregor M.D. ADDENDUM The [place] [id number] Patient Name: SKIP HONG MRN: [id number] date: 1955 Sex: F Assigned Patient Location: RAD Current Patient Location: CT Accession/Order Numb er: [id number] Exam Date: 02/26/2024 11:40 Report Date: 03/01/2024 13:21 At the request of: ANITHA MCGREGOR Procedure: CT head/b rain wo con Begin Addendum # 1 No lesion of the suprasellar cistern or sella turcica by this modality. No evidence for Rathke' s cleft cyst. Original Report EXAM: CT cervical sp ine wo con, CT head/brain wo con HISTORY: CONCUSSION S06. 0X9A COMPARISON: None available at the time of dictation. TECHNIQUE: Axial unenhanced CT images were obtained through the brain. Individualized dose optimization technique was used for the performed procedure by employing the following: Automated exposure control, adjustment of the mA and/or kV according to patient's size, and/or the use of the iterative construction techniq ue. Coronal and sagittal reformats were performed. FINDINGS: No acute intracrania l abnormality. No acute infarct, hemorrhage or mass. No midline shift. Carrera-white matter differentiation is preserved. Ventricles and sulci are normal in size. No acute osseous abnormality. Paranasal sinuses ar e clear. Mastoid air cells are open. Orbits are normal. CERVICAL SPINE: No acute fracture or dislocation of the cervical spine. Moderate degeneratio n at the atlantodental interval. Craniocervical junct ion is unremarkable. Mild degeneration at C4-C5 and C5-C6. Prevertebral soft tissues are normal. No cervical adenopathy. Bilateral apical francia g scarring. Thyroid gland is normal. No supraclavicular adenopathy. Addendum Dictated By : Timbo Lieberman M.D. Addendum Signed By: 06/06/24 1 150 Addendum Cosigned By: DD/ TD/TT: / ADDENDUM C T/CT head/brain wo con IMPRESSION: 1. No acute intracra nial abnormality. No acute intracranial infarct visualized by this modality. (M RI is more sensitive). No acute intracranial hemorrhage 2. No acute fracture or dislocation of the cervical spine. Electronically authenticated by: TIMBO LIEBERMAN Date: 03/01/2024 13:21 Addendum Dictated By : Timbo Lieberman M.D. Addendum Signed By: 06/06/24 1 150 Addendum Cosigned By: DD/ TD/TT: / [place] [id number] Patient Name: SKIP HONG MRN: [id number] date: 1955 Sex: F Assigned Patient Location: [facility] Current Patient Location: RAD Accession/Order Numb er: [id number] Exam Date: 02/26/2024 11:40 Report Date: 02/26/2024 12:18 At the request of: ANITHA MCGREGOR Procedure: CT head/b rain wo con EXAM: CT cervical sp ine wo con, CT head/brain wo con HISTORY: CONCUSSION S06.0X9A COMPARISON: None available at the time of dictation. TECHNIQUE: Axial unenhanced CT images were obtained through the brain. Individualized dose optimization technique was used for the performed procedure by employing the following: Automated exposure control, adjustment of the mA and/or kV according to patient's size, and/or the use of the iterative construction techniq ue. Coronal and sagittal reformats were performed. FINDINGS: No acute intracrania l abnormality. No acute infarct, hemorrhage or mass. No midline shift. Carrera-white matter differentiation is preserved. Ventricles and sulci are normal in size. No acute osseous abnormality. Paranasal sinuses ar e clear. Mastoid air cells are open. Orbits are normal. CERVICAL SPINE: No acute fracture or dislocation of the cervical spine. Moderate degeneratio n at the atlantodental interval. Craniocervical junct ion is unremarkable. Mild degeneration at C4-C5 and C5-C6. Prevertebral soft tissues are normal. No cervical adenopathy. Bilateral apical francia g scarring. Thyroid gland is normal. No supraclavicular adenopathy. C T/CT head/brain wo con IMPRESSION: 1. No acute intracra nial abnormality. No acute intracranial infarct visualized by this modality. (M RI is more sensitive). No acute intracranial hemorrhage 2. No acute fracture or dislocation of the cervical spine. Electronically authenticated by: TIMBO LIEBERMAN Date: 02/26/2024 12:18 Dictated By: Shirin Lieberman M.D. Signed By: 02/26/24 1221 DD/ 1218 TD/TT: Tightener: CT cervical spine wo con Reviewed date:03/01/2024 02:30:21 PM Interpretation: Performing Lab: Notes/Report: Source Facility: [place] [address] CT Scan Report Addendum Patient: SKIP HONG MR#: [id number] : 1955 Acct:[id number] Age/Sex: 69 / F ADM Date: 02/26/24 Loc: RAD Attending Dr: Anitha Mcgregor M.D. Ordering Physician: Anitha Mcgregor M.D. Date of Service: 02/26/24 Procedure(s): CT cervical spine wo con Accession Number(s): [id number] cc: Anitha Mcgregor M.D. ADDENDUM [place] [id number] Patient Name: SKIP HONG MRN: [id number] date: 1955 Sex: F Assigned Patient Location: [facility] Current Patient Location: Accession/Order Number: [id number] Exam Date: 02/26/2024 11:40 Report Date: 03/01/2024 14:21 At the request of: ANITHA MCGREGOR Procedure: CT cervical spine wo con Begin Addendum #1 No lesion of the suprasellar cistern or sella turcica by this modality. No evidence for Rathke's cleft cyst. Original Report EXAM: CT cervical spine wo con, CT head/brain wo con HISTORY: CONCUSSION S06. 0X9A COMPARISON: None available at the time of dictation. TECHNIQUE: Axial unenhanced CT images were obtained through the brain. Individualized dose optimization technique was used for the performed procedure by employing the following: Automated exposure control, adjustment of the mA and/or kV according to patient's size, and/or the use of the iterative construction technique. Coronal and sagittal reformats were performed. FINDINGS: No acute intracranial abnormality. No acute infarct, hemorrhage or mass. No midline shift. Carrera-white matter differentiation is preserved. Ventricles and sulci are normal in size. No acute osseous abnormality. Paranasal sinuses are clear. Mastoid air cells are open. Orbits are normal. CERVICAL SPINE: No acute fracture or dislocation of the cervical spine. Moderate degeneration at the atlantodental interval. Craniocervical junction is unremarkable. Mild degeneration at C4-C5 and C5-C6. Prevertebral soft tissues are normal. No cervical adenopathy. Bilateral apical lung scarring. Thyroid gland is normal. No supraclavicular adenopathy. Addendum Dictated By: Timbo Lieberman M.D. Addendum Signed By: Addendum Cosigned By: DD/ TD/TT: / ADDENDUM CT/CT cervical spine wo con IMPRESSION: 1. No acute intracranial abnormality. No acute intracranial infarct visualized by this modality. (MRI is more sensitive). No acute intracranial hemorrhage 2. No acute fracture or dislocation of the cervical spine. Electronically authenticated by: TIMBO LIEBERMAN Date: 03/01/2024 14:21 Addendum Dictated By: Timbo Lieberman M.D. Addendum Signed By: Addendum Cosigned By: DD/ TD/TT: / [place] [address] Patient Name: SKIP HONG MRN: [id number] date: 1955 Sex: F Assigned Patient Location: [facility] Current Patient Location: [facility] Accession/Order Number: [id number] Exam Date: 02/26/2024 11:40 Report Date: 02/26/2024 12:18 At the request of: ANITHA MCGREGOR Procedure: CT cervical spine wo con EXAM: CT cervical spine wo con, CT head/brain wo con HISTORY: CONCUSSION S06.0X9A COMPARISON: None available at the time of dictation. TECHNIQUE: Axial unenhanced CT images were obtained through the brain. Individualized dose optimization technique was used for the performed procedure by employing the following: Automated exposure control, adjustment of the mA and/or kV according to patient's size, and/or the use of the iterative construction technique. Coronal and sagittal reformats were performed. FINDINGS: No acute intracranial abnormality. No acute infarct, hemorrhage or mass. No midline shift. Carrera-white matter differentiation is preserved. Ventricles and sulci are normal in size. No acute osseous abnormality. Paranasal sinuses are clear. Mastoid air cells are open. Orbits are normal. CERVICAL SPINE: No acute fracture or dislocation of the cervical spine. Moderate degeneration at the atlantodental interval. Craniocervical junction is unremarkable. Mild degeneration at C4-C5 and C5-C6. Prevertebral soft tissues are normal. No cervical adenopathy. Bilateral apical lung scarring. Thyroid gland is normal. No supraclavicular adenopathy. CT/CT cervical spine wo con IMPRESSION: 1. No acute intracranial abnormality. No acute intracranial infarct visualized by this modality. (MRI is more sensitive). No acute intracranial hemorrhage 2. No acute fracture or dislocation of the cervical spine. Electronically authenticated by: TIMBO LIEBERMAN Date: 02/26/2024 12:18 Dictated By: Timbo Lieberman M.D. Signed By: 02/26/24 1221 DD/ 1218 TD/TT: Tightener: [place] [address] CT Scan Report Addendum Patient: SKIP HONG MR#: [id number] : 1955 Acct:[id number] Age/Sex: 69 / F ADM Date: 02/26/24 Loc: RAD Attending Dr: Ronan Mcgregor M.D. Ordering Physician: Anitha Mcgregor M.D. Date of Service: 02/26/24 Procedure(s): CT cervical spine wo con Accession Number(s): [id number] cc: Anitha Mcgregor M.D. ADDENDUM [address] [place] [id number] Patient Name: SKIP HONG MRN: [id number] date: 1955 Sex: F Assigned Patient Location: [facility] Current Patient Location: Accession/Order Numb er: [id number] Exam Date: 02/26/2024 11:40 Report Date: 03/01/2024 14:21 At the request of: ANITHA MCGREGOR Procedure: CT cervic al spine wo con Begin Addendum # 1 No lesion of the suprasellar cistern or sella turcica by this modality. No evidence for Rathke' s cleft cyst. Original Report EXAM: CT cervical sp ine wo con, CT head/brain wo con HISTORY: CONCUSSION S06. 0X9A COMPARISON: None available at the time of dictation. TECHNIQUE: Axial unenhanced CT images were obtained through the brain. Individualized dose optimization technique was used for the performed procedure by employing the following: Automated exposure control, adjustment of the mA and/or kV according to patient's size, and/or the use of the iterative construction techniq ue. Coronal and sagittal reformats were performed. FINDINGS: No acute intracrania l abnormality. No acute infarct, hemorrhage or mass. No midline shift. Carrera-white matter differentiation is preserved. Ventricles and sulci are normal in size. No acute osseous abnormality. Paranasal sinuses ar e clear. Mastoid air cells are open. Orbits are normal. CERVICAL SPINE: No acute fracture or dislocation of the cervical spine. Moderate degeneratio n at the atlantodental interval. Craniocervical junct ion is unremarkable. Mild degeneration at C4-C5 and C5-C6. Prevertebral soft tissues are normal. No cervical adenopathy. Bilateral apical francia g scarring. Thyroid gland is normal. No supraclavicular adenopathy. Addendum Dictated By : Timbo Lieberman M.D. Addendum Signed By: Addendum Cosigned By: DD/ TD/TT: / ADDENDUM C T/CT cervical spine wo con IMPRESSION: 1. No acute intracra nial abnormality. No acute intracranial infarct visualized by this modality. (M RI is more sensitive). No acute intracranial hemorrhage 2. No acute fracture or dislocation of the cervical spine. Electronically authenticated by: TIMBO LIEBERMAN Date: 03/01/2024 14:21 Addendum Dictated By : Timbo Lieberman M.D. Addendum Signed By: Addendum Cosigned By: DD/ TD/TT: / [place] [id number] Patient Name: SKIP HONG MRN: [id number] date: 1955 Sex: F Assigned Patient Location: [facility] Current Patient Location: RAD Accession/Order Numb er: [id number] Exam Date: 02/26/2024 11:40 Report Date: 02/26/2024 12:18 At the request of: ANITHA MCGREGOR Procedure: CT cervic al spine wo con EXAM: CT cervical sp ine wo con, CT head/brain wo con HISTORY: CONCUSSION S06.0X9A COMPARISON: None available at the time of dictation. TECHNIQUE: Axial unenhanced CT images were obtained through the brain. Individualized dose optimization technique was used for the performed procedure by employing the following: Automated exposure control, adjustment of the mA and/or kV according to patient's size, and/or the use of the iterative construction techniq ue. Coronal and sagittal reformats were performed. FINDINGS: No acute intracrania l abnormality. No acute infarct, hemorrhage or mass. No midline shift. Carrera-white matter differentiation is preserved. Ventricles and sulci are normal in size. No acute osseous abnormality. Paranasal sinuses ar e clear. Mastoid air cells are open. Orbits are normal. CERVICAL SPINE: No acute fracture or dislocation of the cervical spine. Moderate degeneratio n at the atlantodental interval. Craniocervical junct ion is unremarkable. Mild degeneration at C4-C5 and C5-C6. Prevertebral soft tissues are normal. No cervical adenopathy. Bilateral apical francia g scarring. Thyroid gland is normal. No supraclavicular adenopathy. C T/CT cervical spine wo con IMPRESSION: 1. No acute intracra nial abnormality. No acute intracranial infarct visualized by this modality. (M RI is more sensitive). No acute intracranial hemorrhage 2. No acute fracture or dislocation of the cervical spine. Electronically authenticated by: TIMBO LIEBERMAN Date: 02/26/2024 12:18 Dictated By: Shirin Lieberman M.D. Signed By: 02/26/24 1221 DD/ 1218 TD/TT: Tightener: CT head/brain wo con Reviewed date:03/01/2024 02:30:21 PM Interpretation: Performing Lab: Notes/Report: Source Facility: [place] [address] [place] [address] CT Scan Report Addendum Patient: SKIP HONG MR#: [id number] : 1955 Acct:[id number] Age/Sex: 69 / F ADM Date: 02/26/24 Loc: RAD Attending Dr: Anitha Mcgregor M.D. Ordering Physician: Anitha Mcgregor M.D. Date of Service: 02/26/24 Procedure(s): CT head/brain wo con Accession Number(s): [id number] cc: Anitha Mcgregor M.D. ADDENDUM The [address] [address] Patient Name: SKIP HONG MRN: [id number] date: 1955 Sex: F Assigned Patient Location: [facility] Current Patient Location: Accession/Order Number: [id number] Exam Date: 02/26/2024 11:40 Report Date: 03/01/2024 14:21 At the request of: ANITHA MCGREGOR Procedure: CT head/brain wo con Begin Addendum #1 No lesion of the suprasellar cistern or sella turcica by this modality. No evidence for Rathke's cleft cyst. Original Report EXAM: CT cervical spine wo con, CT head/brain wo con HISTORY: CONCUSSION S06. 0X9A COMPARISON: None available at the time of dictation. TECHNIQUE: Axial unenhanced CT images were obtained through the brain. Individualized dose optimization technique was used for the performed procedure by employing the following: Automated exposure control, adjustment of the mA and/or kV according to patient's size, and/or the use of the iterative construction technique. Coronal and sagittal reformats were performed. FINDINGS: No acute intracranial abnormality. No acute infarct, hemorrhage or mass. No midline shift. Carrera-white matter differentiation is preserved. Ventricles and sulci are normal in size. No acute osseous abnormality. Paranasal sinuses are clear. Mastoid air cells are open. Orbits are normal. CERVICAL SPINE: No acute fracture or dislocation of the cervical spine. Moderate degeneration at the atlantodental interval. Craniocervical junction is unremarkable. Mild degeneration at C4-C5 and C5-C6. Prevertebral soft tissues are normal. No cervical adenopathy. Bilateral apical lung scarring. Thyroid gland is normal. No supraclavicular adenopathy. Addendum Dictated By: Timbo Lieberman M.D. Addendum Signed By: Addendum Cosigned By: DD/ TD/TT: / ADDENDUM CT/CT head/brain wo con IMPRESSION: 1. No acute intracranial abnormality. No acute intracranial infarct visualized by this modality. (MRI is more sensitive). No acute intracranial hemorrhage 2. No acute fracture or dislocation of the cervical spine. Electronically authenticated by: TIMBO LIEBERMAN Date: 03/01/2024 14:21 Addendum Dictated By: Timbo Lieberman M.D. Addendum Signed By: Addendum Cosigned By: DD/ TD/TT: / [place] [address] Patient Name: SKIP HONG MRN: [facility]:[id number] date: 1955 Sex: F Assigned Patient Location: [facility] Current Patient Location: [facility] Accession/Order Number: [id number] Exam Date: 02/26/2024 11:40 Report Date: 02/26/2024 12:18 At the request of: ANITHA MCGREGOR Procedure: CT head/brain wo con EXAM: CT cervical spine wo con, CT head/brain wo con HISTORY: CONCUSSION S06.0X9A COMPARISON: None available at the time of dictation. TECHNIQUE: Axial unenhanced CT images were obtained through the brain. Individualized dose optimization technique was used for the performed procedure by employing the following: Automated exposure control, adjustment of the mA and/or kV according to patient's size, and/or the use of the iterative construction technique. Coronal and sagittal reformats were performed. FINDINGS: No acute intracranial abnormality. No acute infarct, hemorrhage or mass. No midline shift. Carrera-white matter differentiation is preserved. Ventricles and sulci are normal in size. No acute osseous abnormality. Paranasal sinuses are clear. Mastoid air cells are open. Orbits are normal. CERVICAL SPINE: No acute fracture or dislocation of the cervical spine. Moderate degeneration at the atlantodental interval. Craniocervical junction is unremarkable. Mild degeneration at C4-C5 and C5-C6. Prevertebral soft tissues are normal. No cervical adenopathy. Bilateral apical lung scarring. Thyroid gland is normal. No supraclavicular adenopathy. CT/CT head/brain wo con IMPRESSION: 1. No acute intracranial abnormality. No acute intracranial infarct visualized by this modality. (MRI is more sensitive). No acute intracranial hemorrhage 2. No acute fracture or dislocation of the cervical spine. Electronically authenticated by: TIMBO LIEBERMAN Date: 02/26/2024 12:18 Dictated By: Timbo Lieberman M.D. Signed By: 02/26/24 1221 DD/ 1218 TD/TT: Tightener: [place] [address] CT Scan Report Addendum Patient: SKIP HONG MR#: [id number] : 1955 Acct:[id number] Age/Sex: 69 / F ADM Date: 02/26/24 Loc: RAD Attending Dr: Ronan Mcgregor M.D. Ordering Physician: Anitha Mcgregor M.D. Date of Service: 02/26/24 Procedure(s): CT head/brain wo con Accession Number(s): [id number] cc: Anitha Mcgregor M.D. ADDENDUM The [place] [id number] Patient Name: SKIP HONG MRN: TBH:[id number] date: 1955 Sex: F Assigned Patient Location: [facility] Current Patient Location: Accession/Order Numb er: [id number] Exam Date: 02/26/2024 11:40 Report Date: 03/01/2024 14:21 At the request of: ANITHA MCGREGOR Procedure: CT head/b rain wo con Begin Addendum # 1 No lesion of the suprasellar cistern or sella turcica by this modality. No evidence for Rathke' s cleft cyst. Original Report EXAM: CT cervical sp ine wo con, CT head/brain wo con HISTORY: CONCUSSION S06. 0X9A COMPARISON: None available at the time of dictation. TECHNIQUE: Axial unenhanced CT images were obtained through the brain. Individualized dose optimization technique was used for the performed procedure by employing the following: Automated exposure control, adjustment of the mA and/or kV according to patient's size, and/or the use of the iterative construction techniq ue. Coronal and sagittal reformats were performed. FINDINGS: No acute intracrania l abnormality. No acute infarct, hemorrhage or mass. No midline shift. Carrera-white matter differentiation is preserved. Ventricles and sulci are normal in size. No acute osseous abnormality. Paranasal sinuses ar e clear. Mastoid air cells are open. Orbits are normal. CERVICAL SPINE: No acute fracture or dislocation of the cervical spine. Moderate degeneratio n at the atlantodental interval. Craniocervical junct ion is unremarkable. Mild degeneration at C4-C5 and C5-C6. Prevertebral soft tissues are normal. No cervical adenopathy. Bilateral apical francia g scarring. Thyroid gland is normal. No supraclavicular adenopathy. Addendum Dictated By : Timbo Lieberman M.D. Addendum Signed By: Addendum Cosigned By: DD/ TD/TT: / ADDENDUM C T/CT head/brain wo con IMPRESSION: 1. No acute intracra nial abnormality. No acute intracranial infarct visualized by this modality. (M RI is more sensitive). No acute intracranial hemorrhage 2. No acute fracture or dislocation of the cervical spine. Electronically authenticated by: TIMBO LIEBERMAN Date: 03/01/2024 14:21 Addendum Dictated By : Timbo Lieberman M.D. Addendum Signed By: Addendum Cosigned By: DD/ TD/TT: / [place] [id number] Patient Name: SKIP HONG MRN: [id number] date: 1955 Sex: F Assigned Patient Location: [facility] Current Patient Location: [facility] Accession/Order Numb er: [id number] Exam Date: 02/26/2024 11:40 Report Date: 02/26/2024 12:18 At the request of: ANITHA MCGREGOR Procedure: CT head/b rain wo con EXAM: CT cervical sp ine wo con, CT head/brain wo con HISTORY: CONCUSSION S06.0X9A COMPARISON: None available at the time of dictation. TECHNIQUE: Axial unenhanced CT images were obtained through the brain. Individualized dose optimization technique was used for the performed procedure by employing the following: Automated exposure control, adjustment of the mA and/or kV according to patient's size, and/or the use of the iterative construction techniq ue. Coronal and sagittal reformats were performed. FINDINGS: No acute intracrania l abnormality. No acute infarct, hemorrhage or mass. No midline shift. Carrera-white matter differentiation is preserved. Ventricles and sulci are normal in size. No acute osseous abnormality. Paranasal sinuses ar e clear. Mastoid air cells are open. Orbits are normal. CERVICAL SPINE: No acute fracture or dislocation of the cervical spine. Moderate degeneratio n at the atlantodental interval. Craniocervical junct ion is unremarkable. Mild degeneration at C4-C5 and C5-C6. Prevertebral soft tissues are normal. No cervical adenopathy. Bilateral apical francia g scarring. Thyroid gland is normal. No supraclavicular adenopathy. C T/CT head/brain wo con IMPRESSION: 1. No acute intracra nial abnormality. No acute intracranial infarct visualized by this modality. (M RI is more sensitive). No acute intracranial hemorrhage 2. No acute fracture or dislocation of the cervical spine. Electronically authenticated by: TIMBO LIEBERMAN Date: 02/26/2024 12:18 Dictated By: Shirin Lieberman M.D. Signed By: 02/26/24 1221 DD/ 1218 TD/TT: Tightener: CREATININE Reviewed date:03/10/2024 03:22:44 PM Interpretation: Performing Lab: Notes/Report: [facility] , Creatinine 0.98 0.55-1.02 mg/dL Estimated GFR ( Jimena >60 >=60 Estimated GFR (Non- Anita 56 >=60 Performing Lab: see note ML - [facility] LB GLYCOHEMOGLOBIN A1C Reviewed date:10/20/2024 02:37:54 PM Interpretation: Performing Lab: Notes/Report: [facility] , Glycohemoglobin A1C 5.7 4.5-6.2 % ADA RECOMMENDED LIMIT 4.0 - 6.0 ADA THERAPEUTIC TARGET < 7.0 ACTION SUGGESTED > 7.0 Estimated Average Glucose 117 Performing Lab: see note ML - [facility] LB UA (URINALYSIS), COMPLETE (8 1000) - IN OFFICE Reviewed date:08/14/2024 12:38:01 PM Interpretation: Performing Lab: Notes/Report: COLOR light yellow YELLOW - EDWIN CLARITY clear CLEAR - CLEAR GLUCOSE NEG NEG - NEG MG/DL BILIRUBIN NEG NEG - NEG KETONES NEG NEG - NEG MG/DL SPECIFIC GRAVITY 1.005 1.001 - 1.035 UROBILINOGEN NEG 0.2 - 1.0 MG/DL NITRITE NEG NEG - NEG PROTEIN TRACE WBC, UR TRACE 0 - 4 /HPF COVID-19, Flu A+B IH Reviewed date:06/06/2024 07:48:35 PM Interpretation: Performing Lab: Notes/Report: COVID neg FLU A neg FLU B neg Control present TSH Reviewed date:10/20/2024 02:37:54 PM Interpretation: Performing Lab: Notes/Report: [facility] , Thyroid Stimulating Hormone 2.201 0.358-3.740 uIU/mL Performing Lab: see note ML - [facility] LB T4 Reviewed date:10/20/2024 02:37:54 PM Interpretation: Performing Lab: Notes/Report: [facility] , T4 Thyroxine 6.60 4.80-13.90 ug/dL Performing Lab: see note - [facility] LB PROF 14(COMP METB) Reviewed date:10/20/2024 02:37:54 PM Interpretation: Performing Lab: Notes/Report: [facility] , Sodium 137 136-145 mmol/L Potassium 3.9 3.5-5.1 mmol/L Chloride 103 98-107 mmol/L Carbon Dioxide 25.5 21.0-32.0 mmol/L Anion Gap 12.4 Glucose 94 74-106 mg/dL Blood Urea Nitrogen 21.0 7.0-18.0 mg/dL Creatinine 0.94 0.55-1.02 mg/dL Estimated GFR ( Jimena >60 >=60 mL/min/1.73m 2 Estimated GFR (Non- Anita 59 >=60 mL/min/1.73m 2 BUN Creatinine Ratio 22.3 Calcium 9.2 8.5-10.1 mg/dL Bilirubin Total 0.3 0.2-1.0 mg/dL Aspartate Amino Transferase 18 15-37 U/L Alanine Aminotransferase 29 14-59 U/L Alkaline Phosphatase 114 46-116 U/L Total Protein 6.7 6.4-8.2 g/dL Albumin Level 3.4 3.4-5.0 g/dL Globulin 3.3 Albumin Globulin Ratio 1.0 Performing Lab: see note ML - [facility] LB LIPID PROFILE Reviewed date:10/20/2024 02:37:54 PM Interpretation: Performing Lab: Notes/Report: [facility] , Triglycerides 114 <=150 mg/dL Cholesterol 245 <=200 mg/dL HDL Cholesterol 64 40-60 mg/dL > or =60 mg/dl - LOW CARDIOVASCULAR RISK <40 mg/dl - HIGH CARDIOVASCULAR RISK LDL Cholesterol Calculated 159.0 <100 mg/dl OPTIMAL 100-129 mg/dl NEAR OR ABOVE OPTIMAL 130-159 mg/dl BORDERLINE HIGH 160-189 mg/dl HIGH >190 mg/dl VERY HIGH VLDL CHOLESTEROL 22.8 Chol HDL Ratio 3.8 3.3 - 4.4 LOW RISK 4.4 - 7.1 AVERAGE RISK 7.1 - 11.0 MODERATE RISK >11.0 HIGH RISK Performing Lab: see note ML - [facility] LB FREE T3 Reviewed date:10/20/2024 02:37:54 PM Interpretation: Performing Lab: Notes/Report: [facility] , Free T3 3.43 2.18-3.98 pg/mL Performing Lab: see note ML - [facility] LB CBC AUTO DIFF Reviewed date:10/20/2024 02:37:54 PM Interpretation: Performing Lab: Notes/Report: [facility] , White Blood Count 6.2 4.0-11.0 10 3/uL Red Blood Count 4.54 4.20-5.40 10 6/uL Hemoglobin 14.2 12.0-16.0 g/dL Hematocrit 43.2 36.0-48.0 % Mean Corpuscular Volume 95.2 81.0-99.0 fL Mean Corpuscular Hemoglobin 31.3 26.7-34.0 pg Mean Corpuscular HGB Conc 32.9 29.9-35.2 g/dL Red Cell Distribution Width 13.2 11.0-15.0 % Platelet Count 322 150-450 10 3/uL Mean Platelet Volume 9.0 9.5-13.5 fL Neutrophils Percent Auto 55.1 43.0-75.0 % Lymphocytes Percent Auto 30.6 20.5-60.0 % Monocytes Percent Auto 11.8 1.7-12.0 % Eosinophils Percent Auto 1.5 0.9-7.0 % Basophils Percent Auto 0.8 0.2-2.0 % Immature Granulocytes Pct Auto 0.2 0.0-0.5 % Neutrophils Absolute Auto 3.4 1.4-6.5 10 3/uL Lymphocytes Absolute Auto 1.9 1.2-3.8 10 3/uL Monocytes Absolute Auto 0.7 0.3-0.8 10 3/uL Eosinophils Absolute Auto 0.1 0.0-0.7 10 3/uL Basophils Absolute Auto 0.1 0.0-0.1 10 3/uL Immature Granulocytes Abs Auto 0.01 0.00-0.03 10 3/uL Performing Lab: see note ML - [facility] LB Reason For Referral Diagnosis 1 Jaw pain (R68.84) Referral Organization [facility] Referring Provider First Name Noe Referring Provider Last Name Meche [facility] [place] Referred Provider Specialty Otolaryngolo gy Referral Priority Routine Diagnosis 1 Jaw pain (R68.84) Referral Organization [facility] Referring Provider First Name Noe Referring Provider Last Name Meche Referring Provider [facility] yocasta Referred Provider [place] Referred Provider Specialty Otolaryngolo gy Referral Priority Routine Diagnosis 1 TMJ (sprain of tempo romandibular joint) (S03.40XA) Referral Organization [facility] Referring Provider First Name Noe Referring Provider Last Name Meche Referring Provider [facility] yocasta Referred Provider [place] Referred Provider Specialty Otolaryngolo gy Referral Priority Routine Medications Medication SIG (Take, Route, Frequency, Duration) Notes Start Date End Date Status Liothyronine Sodium 5 MCG TAKE 1 TABLET ONCE DAILY ANGELIKA EMPTY STOMACH for 90 Active Naratriptan HCl 1 MG 1 tablet Orally Twi ce a day for 5 day(s) 11/14/2024 Active HYDROcodone-Acetaminophen 5-325 MG 1 tablet Orally qid - prn for 7 05/11/2024 Active valACYclovir HCl 1 GM 1 tablet Orally tid for 10 days then 1 po Q day forever 07/20/2024 Active Levothyroxine Sodium 25 MCG 1 tablet in the morning on an empty stomach Orally Once a day for 30 day(s) 11/03/2024 Active Valium 5 MG 1 tablet as needed O rally tid for 7 days 05/11/2024 Active Gabapentin 100 MG 1 at bedtime daily f or 90 days Active Protonix 40 MG 1 tablet Orally Once a day for 30 days 04/28/2024 Active Ginseng Active Triamcinolone Acetonide 0.1 % 1 application do not rinse afterwards and avoid eating or drinking for 30 minutes Mouth/Throat Q 4 h for 30 days 06/13/2024 Active Dicyclomine HCl 20 MG 1 tablet Orally QI D for 7 days 12/15/2024 Active Promethazine HCl 25 MG 1 tablet as neede d Orally q6h for 5 days 03/07/2024 Active Depakote 125 MG 1 tablet Orally Twic e a day for 30 days 06/13/2024 Active Omeprazole 20 MG 1 capsule 30 [...] to dissolve Orally for 30 days Active Immunizations Vaccine Route Administration Date Status Comme nts Flu, Fluad (82851) 65 yrs + High Dose Seasonal (5280-1237) Unknown 04/09/2022 Administered SARS-COV-2 (COVID 19 Moderna - Booster 0.25mL) Unknown 08/24/2020 Administered SARS-COV-2 (COVID 19 Moderna - Booster 0.25mL) Unknown 09/21/2020 Administered SARS-COV-2 (COVID 19 Moderna - Booster 0.25mL) Unknown 11/13/2020 Administered SARS-COV-2 (COVID 19 Moderna - Booster 0.25mL) Unknown 10/13/2021 Administered Social History Tobacco Use: Social History Observation Description Date Details (start date - stop date) Never Smoker NA - NA Tobacco Use/Smoking Question Answer Notes Patient is a nonsmoker Alcohol Screen (Audit-C) Question Answer Notes Did you have a drink containing alcohol in the p ast year? No Points 0 Interpretation Negative AUDIT-C (Standard) Question Answer Notes Did you have a drink containing alcohol in the p ast year? No Points 0 Interpretation Negative Problems Problem Type SNOMED Code ICD Code Onset Dates Problem Status W/U Status Risk Notes Problem Low back pain (764520815) Low back pain (M54.5) Active confirmed Problem 465364464 Pancreatitis, ac shakira (577.0) Active confirmed Problem Anxiety disorder (916126652) Other specified anxiety disorders (F41.8) Active confirmed Problem Migraine without aura, not refractory (disorder) (229508888) Migraine, unspecified, not intractable, without status migrainosus (G43.909) Active confirmed Problem Palpitations (28398991) Palpitations (R00.2) Active confirmed Problem Aphasia (55467218) Aphasia (R47.01) Active conf irmed Problem Hyperlipidemia (17725462) Hyperlipidemia (E78.5) Active confirmed Problem Gastroesophageal reflux disease (509317047) GERD (gastroesophageal reflux disease) (K21.9) Active confirmed Problem Cervical radiculopathy (47698213) Cervical radiculopathy (M54.12) Active confirmed Problem Carpal tunnel syndrome (81765342) Carpal tunnel syndrome (G56.00) Active confirmed Problem Hypothyroid (45217684) Hypothyroid (E03.9) Active confirmed Problem Arthritis (7075999) Arthritis (M19.90) Active confirmed Problem Osteopenia (616588057) Osteopenia (M85.80) Active confirmed Problem Vertigo (712541505) Vertigo (R42) Active confirmed Problem Eczema (52222749) Eczema (L30.9) Active confirm ed Problem Dementia (28415934) Dementia (F03.90) Active confirmed Problem Diverticular disease of colon (431722384) Diverticulosis (K57.90) Active confirmed Problem Migraine (76930157) Migraine (G43.909) Active confirmed Problem Back pain (654163824) Back pain (M54.9) Active confirmed Problem Constipation (28926083) Constipation (K59.00) Active confirmed Problem Dysphagia (66747047) Dysphagia (R13.10) Active confirmed Problem Pain in limb (16095692) Foot pain, right (M79.671) Active confirmed Problem Shingles (6006151) Shingles (B02.9) Active conf irmed Problem Memory loss (49977023) Memory loss (R41.3) Active confirmed Problem Fibromyalgia (342246330) Fibromyalgia (M79.7) Active confirmed Problem Cervical spondylosis (206450220) Cervical spondylosis (M47.812) Active confirmed Problem Acute sinusitis (75777620) Acute sinus infection (J01.90) Active confirmed Problem Gastroenteritis (08841007) Gastroenteritis (K52.9) Active confirmed Problem Aphthous ulcer (907605499) Aphthous ulcer (K12.0) Active confirmed Problem Inflammatory bowel disease (32565032) Inflammatory bowel disease (K63.89) Active confirmed Problem Pituitary cyst (083832552) Pituitary cyst (E23.6) Active confirmed Problem Reflex sympathetic dystrophy (229478693) Reflex sympathetic dystrophy (G90.50) Active confirmed Problem Aphthous stomatitis (785944356) Aphthous stomatitis (K12.0) Active confirmed Problem Acute urinary tract infection (938239534) Acute UTI (N39.0) Active confirmed Problem Spasm (64675389) Trapezius muscl e spasm (M62.838) Active confirmed Problem Amnesia (96713610) Memory diffic ulty (R41.3) Active confirmed Problem Irritable bowel syndrome (31517755) Irritable bowel syndrome (IBS) (K58.9) Active confirmed Problem Severe recurrent 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 without psychotic features (05136538) Depression of infancy to staff anesthetist, 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, recurrent, 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) Active confirmed Problem Sprain of jaw (96095645) TMJ (sprain of temporomandibular joint) (S03.40XA) Active confirmed Problem Left upper quadrant pain (030534044) Left upper quadrant abdominal pain (R10.12) Active confirmed Problem Chronic kidney disease stage 3A (disorder) (377003357) Chronic kidney disease, stage 3a (N18.31) Active confirmed Problem Hemiplegia of nondominant side as late effect of cerebrovascular disease (932802497) Hemiparesis of left nondominant side as late effect of other cerebrovascular disease (I69.854) Active confirmed Vital Signs Heart Rate 57 /min 11/03/2024 Temperature 98.5 degrees Fahrenheit 04/28/2024 Blood pressure diastolic 80 mm Hg 12/15/2024 Height 63 in 12/15/2024 Blood pressure systolic 122 mm Hg 12/15/2024 Weight 133.8 lbs 12/15/2024 BMI 23.7 kg/m2 12/15/2024 Encounters Encounter Location Date Provider Diagnosis [facility] [address] [place] [address] 03/07/2024 Noe Hoy Migraine G43.909 [facility] [address] [place] [address] 04/28/2024 Noe Hoy Acute non-recurrent sinusitis, unspecified location J01.90 and Nasal congestion R09.81 [place] [address] [place] [address] 07/20/2024 Noe Hoy Aphthous ulcer K12.[address] [address] 08/10/2024 Noe Hoy Aphthous stomatitis K12.[address] [address] 08/04/2024 Noe Hoy Aphthous ulcer K12.[address] [address] 02/29/2024 Noe Hoy Constipation K59.00 and Pituitary cyst E23.[address] [address] 05/05/2024 Noe Hoy Reflex sympathetic dystrophy G90.50 and Mastoiditis H70.90 [place] [address] [place] [address] 06/02/2024 Noe Hoy Acute non-recurrent sinusitis, unspecified location J01.90 and Nasal congestion R09.[address] [address] 06/13/2024 Noe Hoy Jaw pain R68.84 and Chronic sinus complaints R09.[address] [address] 06/22/2024 Noe Hoy Urinary frequency R3 5.0 ; Dementia F03.90 ; TMJ (sprain of temporomandibular joint) S03.40XA and Acute UTI N39.0 [facility] [address] [place] [address] 04/20/2024 Noe Hoy Acute bronchitis, unspecified organism J20.9 ; Acute non-recurrent sinusitis, unspecified location J01.90 and Nasal congestion R09.81 [facility] [address] [place] [address] 12/15/2024 Noe Hoy Depression of infanc y to staff anesthetist, 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, recurrent, 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 F33.2 and Gastroenteritis K52.9 [facility] [address] [facility] [place] [address] 10/19/2024 Noe Hoy [facility] [address] [place] [address] 10/19/2024 Noe Hoy Migraine G43.909 ; Medicare annual wellness visit, subsequent Z00.00 and Encounter for Medicare annual wellness exam Z00.00 [place] [address] [place] [address] 11/03/2024 Noe Songy Chronic kidney disea se, stage 3a N18.31 ; Hypothyroid E03.9 and Migraine G43.909 [facility] [address] [facility] [place] [address] 02/26/2024 Noe Hoy Concussion S06.0X9A [place] [address] [place] [address] 05/11/2024 Noe Hoy Cervical radiculopat hy M54.12 [place] [address] [facility] [place] [address] 02/28/2024 Noe Hoy Migraine G43.909 [place] [address] [facility] [place] [address] 02/29/2024 Noe Songy [facility] [address] [facility] [place] [address] 03/01/2024 Noe Songy [facility] [address] [facility] [place] [address] 03/08/2024 Noe Songy [facility] [address] [place] [address] 03/09/2024 Noe Mcgregor Surgery follow-up Z0 9 [facility] [address] [facility] [place] [address] 03/10/2024 Noe Hoy Migraine G43.909 [facility] [address] [facility] [place] [address] 03/14/2024 Noe Mcgregor [facility] [address] [facility] [place] [address] 04/11/2024 Donna Romanomer [facility] [address] [facility] [place] [address] 05/11/2024 Noe Mcgregor [facility] [address] [facility] [place] [address] 05/23/2024 Noe Mcgregor [facility] [address] [facility] [place] [address] 06/01/2024 Noe Mcgregor [facility] [address] [facility] [place] [address] 06/02/2024 Noe Hoy Cervical radiculopat hy M54.12 and Acute non-recurrent sinusitis, unspecified location J01.90 [facility] [address] [facility] [place] [address] 06/03/2024 Noe Hoy Cervical radiculopat hy M54.12 [facility] [address] [facility] [place] [address] 06/09/2024 Noe Mcgregor [facility] [address] [facility] [place] [address] 06/14/2024 Noe Mcgregor [facility] [address] [facility] [place] [address] 06/16/2024 Noe Songy Jaw pain R68.84 [facility] [address] [facility] [place] [address] 06/17/2024 Noe Mcgregor Screening for osteoporosis Z13.820 [facility] [address] [facility] [place] [address] 06/22/2024 Noe Songy TMJ (sprain of temporomandibular joint) S03.40XA [facility] [address] [facility] [place] [address] 07/18/2024 Noe Mcgregor Jaw pain R68.84 [facility] [address] [facility] [place] [address] 08/09/2024 Noe [facility] [address] [facility] [place] [address] 08/14/2024 Noe [facility] [address] [facility] [place] [address] 08/16/2024 Noe [facility] [address] [facility] [place] [address] 08/19/2024 Noe Mcgregor [facility] [address] [place] [facility] [place] [address] 10/19/2024 Noe Mcgregor Aphthous stomatitis K12.0 [facility] [address] [place] [facility] [place] [address] 10/19/2024 Noe sabrina [facility] [address] [facility] [place] [address] 10/20/2024 Noe [facility] [address] [facility] [place] [address] 10/20/2024 Noe [facility] [address] [facility] [place] [address] 11/14/2024 Noe [facility] [address] [facility] [place] [address] 12/19/2024 Noe [facility] [address] [facility] [place] [address] 10/20/2024 Noe Mcgregor Dizziness R42 Assessments Encounter Date Diagnosis (ICD Code) Assessment Notes Treatment Notes Treatment Clinical Notes Section Notes 02/26/2024 Concussion (ICD-10 - S06.0X9A) had concussion - still off balance adn headache a wek later 02/29/2024 Constipation (ICD-10 - K59.00) 02/29/2024 Pituitary cyst (ICD-10 - E23.6) 03/07/2024 Migraine (ICD-10 - G43.909) 04/20/2024 Acute bronchitis, unspecified organism (ICD-10 - J20.9) Rest and drink more liquids, especially water. You may use a humidifier or vaporizer to help keep the drainage moist. Kood-tzr-zljpgvn Nasal Saline may help the stuffy and runny nose. Use Ibuprofen and or Tylenol as needed for fever, chills, body aches or pain. Children 5 years old should not be given hsxn-bsu-kcitraa cough and cold medications such as guaifenesin and dextromethorphan. If you're over age 5, you may try dfze-mpr-lkjdrgq cold medications such as guaifenesin and dextromethorphan, or multi-symptom cold reliever such as Dayquil to help reduce the symptoms. Antibiotics have been prescribed. You should take these until completed and follow the directions. Antibiotics can sometimes cause upset stomach, and in rare cases, serious allergic reactions or serious gastrointestinal problems. If you start having severe abdominal pain, severe vomiting, or bloody diarrhea, you should be reevaluated by your physician or urgent care immediately. Follow up with your Primary Care Provider or return to clinic if symptoms do not improve within 3-5 days. If you develop severe symptoms such as shortness of breath, repeated vomiting, coughing up blood, or chest pain you should go to the emergency room or call 911 05/05/2024 Reflex sympathetic dystrophy (ICD-10 - G90.50) 05/05/2024 Mastoiditis (ICD-10 - H70.90) 05/11/2024 Cervical radiculopathy (ICD-10 - M54.12) 06/02/2024 Acute non-recurrent sinusitis, unspecified location (ICD-10 - J01.90) Rest and drink more liquids, especially water. You may use a humidifier or vaporizer to help keep the drainage moist. Ncwz-lgr-ltbvsrr Nasal Saline may help the stuffy and runny nose. Use Ibuprofen and or Tylenol as needed for fever, chills, body aches or pain. Children 5 years old should not be given npjn-vtv-udkrzzb cough and cold medications such as guaifenesin and dextromethorphan. If you're over age 5, you may try jrau-dsc-rwqbdxw cold medications such as guaifenesin and dextromethorphan, or multi-symptom cold reliever such as Dayquil to help reduce the symptoms. Antibiotics have been prescribed. You should take these until completed and follow the directions. Antibiotics can sometimes cause upset stomach, and in rare cases, serious allergic reactions or serious gastrointestinal problems. If you start having severe abdominal pain, severe vomiting, or bloody diarrhea, you should be reevaluated by your physician or urgent care immediately. Follow up with your Primary Care Provider or return to clinic if symptoms do not improve within 3-5 days 12/15/2024 Depression of infancy to staff anesthetist, 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, recurrent, 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 (ICD-10 - [...] East back into eating by eating bland, spvy-an-pitpks foods like crackers, toast, gelatin, bananas, rice and chicken. Try to avoid foods/substances including dairy products, caffeine, alcohol, nicotine and fatty or highly seasoned foods. Medications such as ibuprofen or tylenol can make your stomach more upset, so use sparingly if at all. Also avoid ebfy-alg-ffunxpe anti-diarrheal medications because it can make it harder for your body to eliminate the virus. 02/28/2024 Migraine (ICD-10 - G43.909) 03/09/2024 Surgery follow-up (ICD-10 - Z09) 03/10/2024 Migraine (ICD-10 - G43.909) 06/02/2024 Cervical radiculopathy (ICD-10 - M54.12) 06/13/2024 Jaw pain (ICD-10 - R68.84) 06/13/2024 Chronic sinus complaints (ICD-10 - R09.89) 06/22/2024 Urinary frequency (ICD-10 - R35.0) 06/22/2024 Dementia (ICD-10 - F03.90) 07/20/2024 Aphthous ulcer (ICD-10 - K12.0) 08/04/2024 Aphthous ulcer (ICD-10 - K12.0) 08/10/2024 Aphthous stomatitis (ICD-10 - K12.0) 10/19/2024 Migraine (ICD-10 - G43.909) patient presents to office for a subsequent medicare wellness appointment, a total of 30 minutes was spent with the patient. anxiety and depression screening was completed without concern, a slums memory test was completed and the patient scored a 30/30, vision test was completed and the patient scored a 20/20. Patient does have concerns about ongoing dizzy spells and [place] 10/19/2024 Medicare annual wellness visit, subsequent (ICD-10 - Z00.00) patient presents to office for a subsequent medicare wellness appointment, a total of 30 minutes was spent with the patient. anxiety and depression screening was completed without concern, a slums memory test was completed and the patient scored a 30/30, vision test was completed and the patient scored a 20/20. Patient does have concerns about ongoing dizzy spells and [place] 10/20/2024 Dizziness (ICD-10 - R42) 11/03/2024 Chronic kidney disease, stage 3a (ICD-10 - N18.31) 11/03/2024 Hypothyroid (ICD-10 - E03.9) 06/03/2024 Cervical radiculopathy (ICD-10 - M54.12) 06/16/2024 Jaw pain (ICD-10 - R68.84) 06/17/2024 Screening for osteoporosis (ICD-10 - Z13.820) 06/22/2024 TMJ (sprain of temporomandibular joint) (ICD-10 - S03.40XA) 07/18/2024 Jaw pain (ICD-10 - R68.84) 10/19/2024 Aphthous stomatitis (ICD-10 - K12.0) 04/28/2024 Acute non-recurrent sinusitis, unspecified location (ICD-10 - J01.90) Rest and drink more liquids, especially water. You may use a humidifier or vaporizer to help keep the drainage moist. Mefz-hiy-zmctdvg Nasal Saline may help the stuffy and runny nose. Use Ibuprofen and or Tylenol as needed for fever, chills, body aches or pain. Children 5 years old should not be given wzcl-kju-mnephim cough and cold medications such as guaifenesin and dextromethorphan. If you're over age 5, you may try khkv-bkh-zdzmkmz cold medications such as guaifenesin and dextromethorphan, or multi-symptom cold reliever such as Dayquil to help reduce the symptoms. Antibiotics have been prescribed. You should take these until completed and follow the directions. Antibiotics can sometimes cause upset stomach, and in rare cases, serious allergic reactions or serious gastrointestinal problems. If you start having severe abdominal pain, severe vomiting, or bloody diarrhea, you should be reevaluated by your physician or urgent care immediately. Follow up with your Primary Care Provider or return to clinic if symptoms do not improve within 3-5 days 04/28/2024 Nasal congestion (ICD-10 - R09.81) 11/03/2024 Migraine (ICD-10 - G43.909) Failed on sumatryptan - hypotensin - unable to take other similar - need [facility] 06/22/2024 TMJ (sprain of temporomandibular joint) (ICD-10 - S03.40XA) 06/02/2024 Acute non-recurrent sinusitis, unspecified location (ICD-10 - J01.90) 06/02/2024 Nasal congestion (ICD-10 - R09.81) 04/20/2024 Acute non-recurrent sinusitis, unspecified location (ICD-10 - J01.90) Rest and drink more liquids, especially water. You may use a humidifier or vaporizer to help keep the drainage moist. Fekp-aoo-orqooxb Nasal Saline may help the stuffy and runny nose. Use Ibuprofen and or Tylenol as needed for fever, chills, body aches or pain. Children 5 years old should not be given ajjs-krf-yqtifyl cough and cold medications such as guaifenesin and dextromethorphan. If you're over age 5, you may try xonq-sok-namzxtd cold medications such as guaifenesin and dextromethorphan, or multi-symptom cold reliever such as Dayquil to help reduce the symptoms. Antibiotics have been prescribed. You should take these until completed and follow the directions. Antibiotics can sometimes cause upset stomach, and in rare cases, serious allergic reactions or serious gastrointestinal problems. If you start having severe abdominal pain, severe vomiting, or bloody diarrhea, you should be reevaluated by your physician or urgent care immediately. Follow up with your Primary Care Provider or return to clinic if symptoms do not improve within 3-5 days 04/20/2024 Nasal congestion (ICD-10 - R09.81) 06/22/2024 Acute UTI (ICD-10 - N39.0) 10/19/2024 Encounter for Medicare annual wellness exam (ICD-10 - Z00.00) patient presents to office for a subsequent medicare wellness appointment, a total of 30 minutes was spent with the patient. anxiety and depression screening was completed without concern, a slums memory test was completed and the patient scored a 30/30, vision test was completed and the patient scored a 20/20. Patient does have concerns about ongoing dizzy spells and [place] Plan Of Treatment Pending Test Test Name Order Date CMP (COMPLETE METABOLIC PANEL) CULTURE, STOOL 12/15/2024 HEMOGLOBIN A1C (GLYCO) 03/06/2023 IRON, TOTAL 03/06/2023 LIPID PANEL (CHOL/TRIG/HDL/LDL) 03/06/20 23 CBC WITH DIFF 03/06/2023 VITAMIN D, 25 LEVEL (TOTAL) 03/06/2023 CTA Neck (Carotids) 07/29/2023 CT Abdomen and Pelvis w/contrast * 11/11 MRI Brain w/o contrast 07/29/2023 MRI Lumbar Spine w/o contrast 03/19/2023 RHEUMATOID PANEL 10/30/2023 Insulin Level 03/06/2023 CULTURE, VIRAL (COM: SOURCE) 08/10/2024 COMPREHENSIVE METABOLIC PROFILE WITH GFR 10/19/2024 EXTRACTABLE NUCLEAR ANTIGEN ANTIBODIES 0 11/06/2023 C DIFF TOX PCR STOOL 12/15/2024 CT Mastoids w/ Contrast 05/05/2024 CBC W/AUTO DIFF 10/19/2024 AMIRA(+) REFLEX GEOVANI TESTS 11/06/2023 .Urinalysis Microscopic Only 03/19/2023 CT Brain w/o Contrast 02/26/2024 CULTURE THROAT 08/10/2024 CULTURE URINE 03/19/2023 SED RATE WESTERGREN 10/30/2023 SNR 05 URINALYSIS 03/19/2023 THYROID PROFILE WITH TSH 03/08/2023 CT CSPINE WO CON 02/26/2024 CTA CHEST WO W CON 07/29/2023 MRI BRAIN WO W CON 02/29/2024 US ABD 12/10/2022 US ARTERY LEG QING 10/23/2023 XR ABD FLAT UP_PA CH 03/18/2023 XR LSPINE 2_3 VIEWS 03/18/2023 THYROID PANEL (T4/TSH/FREE T3) THYROID PANEL (T4/TSH/FREE T3) ECHOCARDIO M/2D COMPLETE 07/29/2023 OCCULT BLOOD X 1, STOOL 12/15/2024 DEXA BONE DENSITY 06/17/2024 Lipid Panel 10/19/2024 Insurance Providers Payer Name Payer Address Payer Phone Subscriber Number Group Number Insured Name Patient Relationship to Insured Coverage Start Date Coverage End Date [facility] [address] [place] [address] [id number] Skip Hong Self - patient is the insured 2 Medications Administered Medication Instructions Date of Administration Dosage Notes Kenalog-40 03/06/2023 80 mg Kenalog-40 10/30/2023 120 mg 120 Ketorolac Tromethamine 03/18/2023 60 mg 60 Ketorolac Tromethamine 03/30/2023 60 mg 60 Ketorolac Tromethamine 04/13/2023 60 mg Ketorolac Tromethamine 04/27/2023 60 mg 60 Ketorolac Tromethamine 04/29/2023 60 mg Ketorolac Tromethamine 07/29/2023 60 mg 60 Ketorolac Tromethamine 08/26/2023 60 mg 60 Ketorolac Tromethamine 10/30/2023 60 mg 60 Ketorolac Tromethamine 01/05/2024 60 mg 60 Ketorolac Tromethamine 02/29/2024 60 mg 60 Ketorolac Tromethamine 05/05/2024 60 mg Orphenadrine Citrate 03/18/2023 60 mg 60 Orphenadrine Citrate 03/30/2023 60 mg 60 Orphenadrine Citrate 04/13/2023 60 mg Orphenadrine Citrate 04/27/2023 60 mg 60 Orphenadrine Citrate 04/29/2023 60 mg Orphenadrine Citrate 08/26/2023 60 mg 60 Orphenadrine Citrate 10/30/2023 60 mg 60 Orphenadrine Citrate 01/05/2024 60 mg Promethazine 25mg 04/28/2024 1 mL Promethazine, 25 mg 08/26/2023 1 mL 25 Promethazine, 25 mg 02/29/2024 25 mg 25 Triamcinolone 40 mg/ml 06/02/2024 80 mg Medical (General) History Medical History History ICD Code Back pain M54.9 Constipation K59.00 Carpal tunnel syndrome G56.00 Cervical radiculopathy M54.12 Cervical spondylosis M47.812 Diverticulosis K57.90 Dysphagia R13.10 Eczema L30.9 Fibromyalgia M79.7 GERD (gastroesophageal reflux disease) K 21.9 Hyperlipidemia E78.5 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 Brownlee 06/2018 Epidural Steroid Inj C-Spine 06/2022 Bilateral C5-C7 Medial Branch Block Dr.H chi 07/2022 Hospitalization History Reason Date(Month/Year) see above
--- OUTSIDE RECORDS SUMMARY | 2025-02-04 13:41 | XMS_ITS | Clinical Summary ---
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 Role Phone Min Mcgregor MD Primary Care Provider +- Luli Roy (Hist) Unavailable [phone] Shimon Roblero Unavailable [phone] Allergies Active Allergy Reactions Criticality Noted Date Comments Adhesive Tape (Rosins) Other: See Comments Aspirin 09/13/2009 Ciprofloxacin Other: See Comments Hydromorphone (Bulk) Rash 04/10/2011 Hydrocodone-Homatropine Other: See Comments Etodolac 09/13/2009 Morphine 09/13/2009 Oxycodone-Acetaminophen Other: See Comments Promethazine Hcl 09/13/2009 Butorphanol Tartrate Other: See Comments 2009 Medications calcium carb/vit d3/minerals(OLLIE TRATE 600+D PLUS MINERALS 600 MG (1,500 MG)-400 UNIT CHEWABLE TAB) Take one(1) tablet daily. 0 0 Active sucralfate 1 gram ORAL tablet Take 1 g by mouth four times daily as needed. 2 Active rosuvastatin (CRESTOR) 10 mg ORAL tablet Take 10 mg by mouth once daily. Active hyoscyamine sublingual 0.125 mg Subl Dissolve 0.125 mg under the tongue before meals and at bedtime. Active conjugated estrogens (PREMARIN) vaginal creamIndication s:Every other day Use vaginally once daily. Indications: Every other day Active CLOTRIMAZOLE/BE TAMETHASONE DIP (CLOTRIMAZOLE-B ETAMETHASONE TOPICAL) Apply to affected area twice daily. Active tiZANidine (ZANAFLEX) 4 mg tablet TAKE 1 TABLET BY MOUTH EVERY EVENING AT BEDTIME 5 8 Active predniSONE (DELTASONE) 10 mg tablet TAKE 4 TABLETS BY MOUTH DAILY FOR 2 WEEKS, then decrease by ONE-HALF TABLET EVERY WEEK 1 8 Active lipase-protease -amylase (CREON) 24,000-76,000 -120,000 unit cpDR Take by mouth three times daily with meals. Active traMADol (ULTRAM) 50 mg tablet Take 50 mg by mouth every 6 hours as needed. Active promethazine (PHENERGAN) 25 mg tablet Take 25 mg by mouth every 6 hours as needed. Active omeprazole (PRILOSEC) 20 mg capsule Take 20 mg by mouth once daily. Active ibuprofen (MOTRIN) 200 mg tablet Take 200 mg by mouth every 6 hours as needed. Active HYDROcodone-adalgisa taminophen (NORCO) 5-325 mg per tablet Take 1 tablet by mouth every 8 hours as needed. Active Active Problems Problem Noted Date Diagnosed Date Idiopathic chronic pancreatitis 05/13/2018 Assessment & Plan (05/13/2018 1:00 PM EST): Assessment: Evidenced by pancreatic calcifications. Etiology not clear. She is currently being treated by her primary GI for AIP (IgG4 negative) she is s/p cholecystectomy and s.p ERCP pancreatic sphincterotomy PLAN: Medical management Increase caloric intake, no need to follow a low fat diet. Regular diet is recommended Optimize vitamin D levels - she is already on Vit D supplements May try antioxidant vitamins although the benefit has not been proven in large studies Creon as explained above Completion of steroid treatment as per Primary GI Fibromyalgia 09/20/2009 Abdominal pain 09/20/2009 Assessment & Plan (05/13/2018 12:56 PM EST): Assessment: Generalized abdominal pain, and tenderness on light palpation is multifactorial and likely a combination of fibromyalgia, chronic pancreatitis and abdominal wall pain PLAN: In absence of PD dilation or intraductal stones, endoscopic intervention is of limited help Increase Creon dose to at least 50K lipase units with meals for optimal benefit Suggest discussing with primary GI for management of chronic abdominal pain with pain management clinic Family History Medical History Relation Comments epilepsy Brother mentally challen ged, heart, lung disease COPD Father Emphysema Father Heart Father Stroke Father peripheral vascular Father ulcerative colitis Father COPD Mother Emphysema Mother Heart Mother hypoglycemia Sister Relation Status Comments Brother Father Mother Sister Social History Tobacco Use Types Packs/Day Years Used Date Smoking Tobacco: Never Smokeless Tobacco: Never Alcohol Use Standard Drinks/Week Comments No 0 (1 standard drink = 0.6 oz pur e alcohol) PHQ-2 Answer Date Recorded PHQ-2 score 4 06/23/2022 Area Deprivation Index Answer Date Asim rded National Score (1-100), lower number is lower ri sk Not on file 05/21/2020 State Score (1-10), lower number is lower risk N ot on file 05/21/2020 Data from: https://www.neighborhoodatlas.medicine.[facility].edu/. 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 Not on file Not on file Last Filed Vital Signs Vital Sign Reading Time Taken Comments Blood Pressure 129/72 05/13/2018 9:42 AM EST Pulse 80 05/13/2018 9:42 AM EST Temperature - - Respiratory Rate - - Oxygen Saturation 95% 05/13/2018 9:42 AM EST Inhaled Oxygen Concentration - - Weight 62.4 kg (137 lb 9.6 oz) 05/13/2018 9:42 A M EST Height 160 cm (5' 3 ) 11/13/2011 10:56 AM EDT Body Mass Index 24.37 11/13/2011 10:56 AM EDT Plan of Treatment Health Maintenance Due Date Last Done Comments Anxiety Screening 01/11/1974 Depression Screening 01/11/1974 Hepatitis C Screening 01/11/1974 DTaP,Tdap,Td Vaccine (1 - Tdap) 01/11/[address] Colonography 01/11/2001 Cologuard (FIT-DNA) 01/11/2001 Colonoscopy 01/11/2001 Colorectal Cancer Screening 01/11/2001 Fecal Occult Blood 01/11/2001 Lipid Screening 01/11/2001 Sigmoidoscopy 01/11/2001 Pneumococcal Vaccine: 50+ (1 of 1 - PCV) 01/11/2006 Shingrix Vaccine (1 of 2) 01/11/2006 Diabetes Screening 09/20/2012 09/20/2009, 09/13/2009 Bone Density Screening 01/11/2021 Advance Directive Discussion 06/15/2024 Medicare Advantage Annual Wellness Visit 06/15/2024 Influenza Vaccine (#1) 2025 04/09/2022, 2019 RSV Vaccine (1 - 1-dose 75+ series) 01/11/2031 Procedures Procedure Name Priority Date/Time Associated Diagnosis Comments COMPREHENSIVE METABOLIC PANEL Routine 09/20/2009 12:55 PM EDT Abdominal Pain from Last 3 Months or Most Recently Relevant to Health Maintenance Results * (ABNORMAL) COMP METABOLIC PANEL (09/20/2009 12:55 PM EDT) Protein, Total 7.2 6.0 - 8.4 g/dL [facility] Albumin 4.6 3.5 - 5.0 g/dL [facility] Calcium 10.2 8.5 - 10.5 mg/dL [facility] Bilirubin, Total 0.4 0.0 - 1.5 mg/dL [facility] Alkaline Phosphatase 69 40 - 150 U/L [facility] AST 23 7 - 40 U/L [facility] Glucose 108(H) 65 - 100 mg/dL [facility] BUN 11 8 - 25 mg/dL [facility] Creatinine 0.81 0.70 - 1.40 mg/dL [facility] Sodium 141 132 - 148 mmol/L [facility] Potassium 4.4 3.5 - 5.0 mmol/L [facility] Chloride 106 98 - 110 mmol/L [facility] CO2 23 23 - 32 mmol/L [facility] Anion Gap 12 0 - 15 mmol/L [facility] ALT 19 0 - 45 U/L [facility] eGFR- >60 [facility] eGFR-All Other Races >60 . [facility] Comment: eGFR (Estimated GFR) Units of measure: mL/min/1.73 meters squared eGFR is derived from the reexpressed MDRD Study equation using the following parameters: serum creatinine, age, gender and race. The creatinine assay has been calibrated to be traceable to IDMS. An eGFR <60 mL/min/1.73m2 for >3 months is consistent with chronic kidney disease. Refer to KDOQI guidelines for clinical interpretation. 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
--- OUTSIDE RECORDS SUMMARY | 2025-02-04 13:41 | XMS_ITS | Encounter Summary ---
Author Organization [facility] tem Address [id number] [address] 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 Name Role Phone Min Mcgregor MD Primary Care Provider [phone] Encounter Details Date Type Department Care Team (Late st Contact Info) Description 06/11/2022 Orders Only [facility] [address] [place] [address] Min Mcgregor MD [address] [place] [address] Social History Tobacco Use Types Packs/Day Years [...] AM EST documented as of this encounter Plan of Treatment Not on file documented as of this encounter Procedures Procedure Name Priority Date/Time Associated Diagnosis Comments MR CERVICAL SPINE WO CONT Routine 05/20/2022 documented in this encounter Results * MR cervical spine without contrast (05/20/2022) Anatomical Region Laterality Modality MSK, Neuro, Spine, C-spine, Spine Covera N/A Magnetic Resonance us Min Mcgregor MD IMG MRI ORDERABLES Final Result documented in this encounter Visit Diagnoses Not on filedocumented in this encounter Care Teams Paper Twister Tender Relationship Specialty Start Date End Date Min Mcgregor MD PCP - General Family Medicine 05/30/22 documented as of this encounter
--- OUTSIDE RECORDS SUMMARY | 2025-02-04 13:41 | XMS_ITS | CCD ---
Author Organization [facility] Care Team Providers Care Information Technology Auditor Name Role Phone Kings Thomson Attending Unavailable Anitha Mcgregor Primary Care Unavailable Anitha Mcgregor MD Primary Care Provider [phone] Luli Roy MD (Hist) Unavailable [phone] ANITHA MCGREGOR Primary Care Unavailable BENJAMIN MOORE Attending Unavailable AIDEY, DR WELSH Consulting Unavailable KAROLINE, DR WELSH Primary Care Unavailable HOY, DR WELSH Attending Unavailable AIDEY, DR WELSH [...] Attending Unavailable HOY, DR WELSH Admitting Unavailable FOLEYENEDELIA Consulting Unavailable AIDEY, DR WELSH Consulting Unavailable KAROLINE, DR WELSH Primary Care Unavailable HOTyron, DR WELSH Attending Unavailable HOY, DR WELSH Admitting Unavailable HOY, DR WELSH Consulting Unavailable KAROLINE, DR WELSH Primary Care Unavailable KAROLINE, DR WELSH Attending Unavailable AIDEY, DR WELSH Admitting Unavailable ZIEBER, DR TYRELL Alonzo Consulting Unavailable AIDEY, DR WELSH Consulting Unavailable [...] Provider UnavailAnitha Montague MD Primary Care Provider [phone] Cindy Phan Admitting Unavailable Cindy Phan Attending Unavailable Cindy Phan Referring Unavailable ZaCindy rivero Admitting Unavailable Cindy Phan Attending Unavailable Cindy Phan Referring Unavailable Jim OD, Oral Unavailable MIGUEL ÁNGEL ROSALES Attending Unavailable DIVYA DUDLEY Attending Unavailable MIGUEL ÁNGEL ROSALES Attending Unavailable JASVIR SMILEY Attending Unavailable MIGUEL ÁNGEL ROSALES Referring Unavailable CINDY PHAN Attending Unavailable DIVYA DUDLEY Attending Unavailable Anitha Mcgregor MD Primary Care Provider [phone] Oswaldo DEMARCO-LOG PROCESSOR OPERATOR-Екатерина Caicedo Attending Provider Allergies Allergy Classification Reported Allergen(s) Allergy Type Date of Onset Reaction(s) Facility (16 sources) Acetaminophen / oxyCODONE; Translations: [OXYCODONE-ACETAMIN OPHEN] Drug Allergy 06-03-20 Other: See Comments, Rash [facility] (3 sources) Adhesive Tape; Translations: [ADHESIVE TAPE (ROSINS)] Allergy to substance Other: See Comments [facility] (8 sources) Aspirin; Translations: [ASPIRIN] Drug Allergy 09-14-19 10 Unknown, Unknown Reaction [facility] (3 sources) Butorphanol; Translations: [BUTORPHANOL TARTRATE] Drug Allergy 09-14-19 10 Other: See Comments [facility] (20 sources) Ciprofloxacin; Translations: [CIPROFLOXACIN] Drug Allergy 06-03-20 Other: See Comments, Rash [facility] (3 sources) Etodolac; Translations: [ETODOLAC] Drug Allergy 09-14-19 10 [facility] (3 sources) homatropine / HYDROcodone; Translations: [HYDROCODONE-HOMATR OPINE] Drug Allergy Other: See Comments [facility] (3 sources) HYDROmorphone; Translations: [HYDROMORPHONE (BULK)] Drug Allergy 04-10-20 11 Rash [facility] (20 sources) Morphine; Translations: [MORPHINE] Drug Allergy 09-14-19 10 Unknown, Unknown Reaction [facility] (3 sources) Promethazine; Translations: [PROMETHAZINE HCL] Drug Allergy 09-14-19 10 [facility] (1 source) Acetaminophen / oxyCODONE Drug Allergy [facility] (1 source) Aspirin Drug Allergy [facility] (5 sources) Butorphanol; Translations: [Stadol] Drug Allergy Unknown [facility] (1 source) Ciprofloxacin Drug Allergy [facility] (1 source) Desonide Drug Allergy [facility] (3 sources) Etodolac; Translations: [Lodine] Drug Allergy [facility] (1 source) homatropine Drug Allergy [facility] (3 sources) HYDROmorphone; Translations: [Dilaudid] Drug Allergy [facility] (3 sources) Levamisole; Translations: [Phenergan] Drug Allergy [facility] (1 source) Morphine Drug Allergy [facility] (1 source) Bleach (Sodium Hypochlorite) Drug allergy (disorder) 01-11-19 56 [facility] (16 sources) HYDROmorphone Drug Allergy 04-10-20 11 Rash [facility] Other (2 sources) Promethazine Drug Allergy Unknown [facility] Other (3 sources) traMADol Drug Allergy 01-24-20 25 Unknown, Unknown Reaction [facility] (13 sources) Aluminum aspirin Drug Allergy 09-14-19 10 Anaphylaxis [facility] Work Phone: (14 sources) Butorphanol Drug Allergy 09-14-19 10 Rash [facility] (13 sources) Etodolac Propensity to adverse reactions 09-14-19 10 Rash [facility] (14 sources) Promethazine Drug Allergy 09-14-19 10 Unknown Reaction [facility] (13 sources) Sulfamethoxazole / Trimethoprim Drug Allergy 06-03-20 [address] [facility] (13 sources) Theophylline Drug Allergy 06-03-[address] [facility] (2 sources) Acetaminophen / oxyCODONE; Translations: [Percocet 5/325] Drug Allergy [facility] (2 sources) Adhesive Tape; Translations: [Tape] Propensity to adverse reactions (disorder) [facility] (2 sources) homatropine / HYDROcodone; Translations: [Hydromet] Drug Allergy [facility] (10 sources) Citalopram Drug Allergy 06-20-19 25 Unknown Reaction [facility] (1 source) hydrOXYzine Drug Allergy 01-24-20 25 Unknown Reaction [facility] (1 source) Memantine Drug Allergy 01-24-20 25 Hives [facility] (1 source) Metoclopramide Drug Allergy 01-24-20 25 Unknown Reaction [facility] (1 source) Niacin Drug Allergy 01-24-20 25 Unknown Reaction [facility] (1 source) Sulfamethoxazole Drug Allergy 01-24-20 25 Unknown Reaction [facility] (1 source) SUMAtriptan Drug Allergy 01-24-20 25 Unknown Reaction [facility] (1 source) Trimethoprim Drug Allergy 01-24-20 25 Unknown Reaction [facility] Medications Current Medications Medication Drug Class(es) Dates Sig (Normalized) Sig (Original) acetaminophen 500 mg oral tablet (12 sources) take 1 tablet by mouth every six hours as needed acetaminophen (Tylenol) 500 MG tablet Take 500 mg by mouth every 6 (six) hours if needed Active acetaminophen 325 mg / oxyCODONE hydrochloride 5 mg oral tablet (2 sources) Opioid Agonist oxyCODONE-Acetam josafat phen 5-325 MG Oral for 7 Days Active clopidogrel 75 mg oral tablet (11 sources) P2Y12 Platelet Inhibitor Start: 01-23-2025 take 1 tablet by mouth two times weekly Clopidogrel (Plavix) 75 mg tablet Active 75 MG PO As Directed January 23, 2025 12:00am twice a week Complies with drug therapy Start: 10-30-2023 Plavix 75 MG t ablet 1 (one) time each day at the same time 10/30/2023 Active diazePAM 5 mg oral tablet (12 sources) Benzodiazepine Start: 03-07-2024 diazePAM (Jules um) 5 MG tablet every 8 (eight) hours 03/07/2024 Active diazePAM 10 MG T MATT 1 TABLET BY MOUTH 60 MINUTES prior to procedure Oral for 1 Days Active docusate sodium 100 mg oral capsule (10 sources) take 1 capsule by mouth in the morning Docusate Sodium (DSS) 100 MG capsule Take 100 mg by mouth in the morning and 100 mg in the evening. Active gabapentin 100 mg oral capsule (14 sources) Anti-epileptic Agent Start: 01-23-2025 take 1 capsule by mouth once daily at bedtime Gabapentin 100 mg capsule Active 100 MG PO Daily at bedtime January 23, 2025 12:00am Complies with drug therapy Start: 03-27-2023 gabapentin (Ne urontin) 100 MG capsule 03/27/2023 Active gentamicin 3 mg/ml ophthalmic solution (5 sources) Start: 02-01-2024 End: 06-20-2024 take 1 drop(s) into the eye(s) five times daily gentamicin (Garamycin) 0.3 % ophthalmic solution Indications: Age-related nuclear cataract of both eyes instill 1 DROP IN THE LEFT EYE FIVE TIMES DAILY FOR 10 DAYS 5 mL 1 02/01/2024 06/20/2024 Discontinued (Therapy completed) ibuprofen 200 mg oral tablet (14 sources) Nonsteroidal Anti-inflammatory Drug take 1 tablet by mouth every six hours as needed ibuprofen 200 MG tablet Take 200 mg by mouth every 6 (six) hours if needed Active Comment on above: Take 200 mg by mouth every 6 hours as needed. levothyroxine sodium 0.025 mg oral tablet (2 sources) l-Thyroxine Start: 01-23-2025 End: 01-23-2025 take 1 tablet by mouth once daily Levothyroxine 25 mcg tablet Active 25 MCG PO Daily January 23, 2025 10:10am Complies with drug therapy liothyronine sodium 0.005 mg oral tablet (13 sources) l-Triiodothyronine Start: 04-24-2023 liothyronine (Cytomel) 5 MCG tablet 04/24/2023 Active naratriptan 1 mg oral tablet (1 source) Serotonin-1b and Serotonin-1d Receptor Agonist Start: 01-23-2025 Naratriptan 1 mg tablet Active 0 PO .COMPLEX as needed for migraines January 23, 2025 12:00am Take 1 tablet by mouth as needed at the onset of migraine. Take no more than 1 dose in 24 hours. Complies with drug therapy omeprazole 20 mg delayed release oral capsule (7 sources) Proton Pump Inhibitor End: 06-20-2024 take 1 capsule by mouth in the morning omeprazole (PriLOSEC) [address] capsule Take 20 mg by mouth in the morning. 06/20/2024 Discontinued (Therapy completed) Comment on above: Take 20 mg by mouth once daily. pantoprazole 40 mg delayed release oral tablet (10 sources) Proton Pump Inhibitor Start: 04-28-2024 pantoprazole (Protonix) 40 MG EC tablet 1 (one) time each day at the same time 04/28/2024 Active prednisoLONE acetate 10 mg/ml ophthalmic suspension (4 sources) Corticosteroid Start: 02-05-2024 End: 06-20-2024 take 1 drop(s) into the eye(s) four times daily at bedtime prednisoLONE acetate (Pred-Forte) 1 % ophthalmic suspension Indications: Age-related nuclear cataract of both eyes instill 1 DROP IN BOTH EYES FOUR TIMES DAILY (IN THE MORNING, at noon, IN THE EVENING, and BEFORE bedtime) FOR 14 DAYS 5 mL 1 02/05/2024 06/20/2024 Discontinued (Therapy completed) promethazine hydrochloride 25 mg oral tablet (12 sources) Phenothiazine Start: 03-07-2024 take 1 tablet by mouth every six [...] needed. rimegepant 75 mg disintegrating oral tablet (10 sources) Start: 024 take 1 tablet by mouth every two hours Rimegepant Sulfate (Nurtec) 75 MG tablet dispersible 1 tablet on the tongue and allow to dissolve Orally Repeat in 2 hours if necc, max 2/day for 10 days 03/07/2024 Active SUMAtriptan 100 mg oral tablet (12 sources) Serotonin-1b and Serotonin-1d Receptor Agonist take 1 tablet by mouth once SUMAtriptan (Imitrex) 100 MG tablet Take 100 mg by mouth 1 (one) time if needed for migraine Active triamcinolone acetonide 0.001 mg/mg oral paste (2 sources) Corticosteroid Start: 025 triamcinolone (Kenalog) 0.1 % oral paste APPLY TO THE AFFECTED AREA do not rinse afterwards and avoid eating or drinking for 30 MINUTES EVERY 4 HOURS 08/10/2024 Active Tylenol Extra Strength 500 MG (2 sources) take 1 tablet by mouth every six hours as needed Tylenol Extra Strength 500 MG 1 tablet as needed Orally every 6 hrs Active valACYclovir 1000 mg oral tablet (2 sources) Herpesvirus Nucleoside Analog DNA Polymerase Inhibitor, Herpes Simplex Virus Nucleoside Analog DNA Polymerase Inhibitor, Herpes Zoster Virus Nucleoside Analog DNA Polymerase Inhibitor Start: 025 valACYclovir (Valtrex) 1 g tablet Take 1,000 mg by mouth in the morning and 1,000 mg in the evening and 1,000 mg before bedtime. 08/04/2024 Active divalproex sodium 125 mg delayed release oral tablet (9 sources) Mood Stabilizer, Anti-epileptic Agent take 1 [...] th every 8 hours as needed. amylase 603279 unt / lipase 53619 unt / protease 31435 unt delayed release oral capsule (2 sources) [...] affected ar ea twice daily. estrogens, conjugated (care home) 0.625 mg/ml vaginal cream (2 sources) [...] on above: TAKE 4 TABLETS BY MO [facility] DAILY FOR 2 WEEKS, then decrease [...] Translations: [Anxiety disorder, unspecified] 07-20-2024 Chronic Cataract (16 sources) Bilateral age-related nuclear cataracts; Translations: [Age-related nuclear cataract, bilateral] Onset: 07-27-19 24 07-27-2023 Chronic Congestive heart failure; nonhypertensive (1 source) Unspecified diastolic (congestive) heart failure; Translations: [UNSPECIFIED DIASTOLIC HEART FAILURE] Onset: 02-24-20 Chronic Delirium, dementia, and amnestic and other cognitive disorders (12 sources) Dementia; Translations: [Unspecified dementia without behavioral disturbance] Onset: 10-08-19 24 10-08-2023 Chronic Diseases of mouth; excluding dental (2 sources) Ulcer of mouth; Translations: [Other forms of stomatitis] 08-15-2024 Episodic Disorders of lipid metabolism (1 source) Pure [...] 06-19-19 Episodic Other aftercare (1 source) Other usp (current) drug therapy; Translations: [OTH CHILD CARE DIRECTOR CURRENT DRUG THERAPY] Onset: 06-19-19 Episodic Other gastrointestinal disorders (1 source) Irritable bowel syndrome without diarrhea; Translations: [IRRITABLE BOWEL SYND W/O DIARRHEA] Onset: 06-19-19 Chronic Other gastrointestinal disorders (2 sources) Diarrhea; Translations: [Diarrhea] Episodic Other inflammatory condition of skin (1 source) Psoriasis, unspecified; Translations: [PSORIASIS UNSPECIFIED] Onset: 06-19-19 Chronic Other nervous system disorders (12 sources) Bilateral carpal tunnel syndrome; Translations: [Carpal tunnel syndrome, bilateral upper limbs] Onset: 10-08-19 24 10-08-2023 Chronic Other nutritional; endocrine; and metabolic disorders (1 source) Disorder of urea cycle metabolism, unspecified; Translations: [DISORDER UREA CYCLE METABOLISM UNS] Onset: 02-13-20 Chronic Pancreatic disorders (not diabetes) (12 sources) Idiopathic chronic pancreatitis; Translations: [Other chronic pancreatitis] Onset: 05-13-20 18 05-13-2018 Chronic Residual codes; unclassified (1 source) Acquired absence of other specified parts of digestive tract; Translations: [ACQ ABSENCE OTH PART DIGESTV TRACT] Onset: 06-19-19 Episodic Residual codes; unclassified (1 source) Acquired absence of both cervix and uterus; Translations: [ACQUIRED ABSENCE BOTH CERVIX AND UTERUS] Onset: 06-19-19 Episodic Residual codes; unclassified (4 sources) Memory impairment; Translations: [Other amnesia] 07-20-2024 Episodic Spondylosis; intervertebral disc disorders; other back problems (11 sources) Other spondylosis with radiculopathy, cervical region; Translations: [Cervical spondylosis without myelopathy] Onset: 08-15-1906-17-2024 Chronic Unclassified (2 sources) COUGH, UNSPECIFIED; Translations: [COUGH, UNSPECIFIED] Onset: 06-19-19 Unclassified (1 source) CONTACT W/AND (SUSP) EXPOS COVID-19; Translations: [CONTACT W/AND (SUSP) EXPOS COVID-19] Onset: 02-13-20 Viral infection (1 source) COVID-19; Translations: [COVID-19] Onset: 09-03-19 22 Past or Other Problems Problem Classification Problem Date Documented Da te Episodic/Chronic Abdominal pain (20 sources) Abdominal pain; Translations: [Unspecified abdominal pain] [...] Onset: 02-12-2022 Episodic Other connective tissue disease (13 sources) Fibromyalgia; Translations: [Fibromyalgia] Onset: 09-20-2009 09-20-2009 [...] Spondylosis; intervertebral disc disorders; other back problems (17 sources) Neck pain; Translations: [Cervicalgia] Onset: 05-20-2022 [...] Karthik Rice M.D. Transcribed by: KINGSTON Technologist: LKS Technical Comments Radiation Dose: Ka,r in mGy = na DAP = na Normal [facility] BMPon 01-18-2024 Anion gap [Moles/Vol] 10 mmol/L Normal 6-16 [facility] Comment on above: Performed By: #### 2 [id number] #### [facility] [address] [place] [address] Calcium [Mass/Vol] 9.6 mg/dL Normal 8.9-11.1 [facility] Comment on above: Performed By: #### 2 [id number] #### [facility] [address] [place] [address] Chloride [Moles/Vol] 107 mmol/L Normal 101-111 [facility] Comment on above: Performed By: #### 2 [id number] #### [facility] [address] [place] [address] CO2 [Moles/Vol] 26 mmol/L Normal 21-31 [facility] Comment on above: Performed By: #### 2 [id number] #### [facility] [address] [place] [address] Creatinine [Mass/Vol] 0.9 mg/dL Normal 0.5-1.3 [facility] Comment on above: Performed By: #### 2 [id number] #### [facility] [address] [place] [address] Glucose [Mass/Vol] 95 mg/dL Normal 55-199 [facility] Comment on above: Performed By: #### 2 [id number] #### [facility] [address] [place] [address] Potassium [Moles/Vol] 3.9 mmol/L Normal 3.5-5.3 [facility] Comment on above: Performed By: #### 2 [id number] #### [facility] [address] [place] [address] Sodium [Moles/Vol] 139 mmol/L Normal 135-145 [facility] Comment on above: Performed By: #### 2 [id number] #### [facility] [address] [place] [address] Urea nitrogen [Mass/Vol] 9 mg/dL Normal 5-21 [facility] Comment on above: Performed By: #### 2 [id number] #### [facility] [address] [place] [address] Urea nitrogen/Creatinine [Mass ratio] 10 No Units Normal 10-20 [facility] Comment on above: Performed By: #### 2 [id number] #### [facility] [address] [place] [address] CBC w/Indiceson 01-18-2024 Erythrocyte distribution width (RBC) [Ratio] 14.5 % High 10.9-14.2 [facility] Comment on above: Performed By: #### 2 [id number] #### [facility] [address] [place] [address] Hematocrit (Bld) [Volume fraction] 43.1 % Normal 34.0-46.0 [facility] Comment on above: Performed By: #### 2 [id number] #### [facility] [address] [place] [address] Hemoglobin (Bld) [Mass/Vol] 14.5 g/dL Normal 12.0-16.0 [facility] Comment on above: Performed By: #### 2 [id number] #### [facility] [address] [place] [address] MCH (RBC) [Entitic mass] 30.6 pg Normal 27.0-34.0 [facility] Comment on above: Performed By: #### 2 [id number] #### [facility] [address] [place] [address] MCHC (RBC) [Mass/Vol] 33.6 g/dL Normal 31.4-36.0 [facility] Comment on above: Performed By: #### 2 [id number] #### [facility] [address] [place] [address] MCV (RBC) [Entitic vol] 91.0 fL Normal 80.0-100.0 [facility] Comment on above: Performed By: #### 2 [id number] #### [facility] [address] [place] [address] Platelet mean volume (Bld) [Entitic vol] 7.5 fL Normal 6.4-10.8 [facility] Comment on above: Performed By: #### 2 [id number] #### [facility] [address] [place] [address] Platelets (Bld) [#/Vol] 300.0 E9/L Normal 150.0-500.0 [facility] Comment on above: Performed By: #### 2 [id number] #### [facility] [address] [place] [address] RBC (Bld) [#/Vol] 4.7 E12/L Normal 4.3-5.9 [facility] Comment on above: Performed By: #### 2 [id number] #### [facility] [address] [place] [address] RBC size Nom (Bld) NORMAL Invalid Interpretation Code [facility] Comment on above: Performed By: #### 2 [id number] #### [facility] [address] [place] [address] WBC corrected for nucl RBC Auto (Bld) [#/Vol] 5.9 E9/L Normal 4.0-11.0 [facility] Comment on above: Performed By: #### 2 [id number] #### [facility] [address] [place] [address] eGFRon 01-18-2024 eGFR 70 mL/min/1.73 m2 Normal >=59 [facility] Comment on above: Order Comment: Order added by Discern Expert. Performed By: #### 1 [id number] #### [facility] [address] [place] [address] AMYLASEon 07-01-2022 Amylase [Catalytic activity/Vol] 117 U/L Critically high 25-115 [facility] Comment on above: Performed By: #### T SH, T7, ALIYAH, LIPA, CMP ####[facility] [address] [place] [address]Dr. Lawrence Wayne CBC AUTO DIFFon 07-01-2022 BASO # 0.1 103/ul Normal 0.0-0.1 [facility] Comment on above: Performed By: #### C BC ####[facility] [address] [place] [id number]. Lawrence Wayne Basophils/100 WBC (Bld) 0.6 % Normal 0.2-2.0 [facility] Comment on above: Performed By: #### C BC ####[facility] [address] [place] [address]Dr. Lawrence Wayne EO # 0.1 103/ul Normal 0.0-0.7 [facility] Comment on above: Performed By: #### C BC ####[facility] [address] [place] [address]Dr. Lawrence Tone Eosinophils/100 WBC (Bld) 0.7 % Critically low 0.9-7.0 [facility] Comment on above: Performed By: #### C BC ####[facility] [address] [place] [address]Dr. Lawrence Wayne Erythrocyte distribution width (RBC) [Ratio] 13.6 % Normal 11.0-15.0 [facility] Comment on above: Performed By: #### C BC ####[facility] [address] [place] [address]Dr. Lawrence Wayne Hematocrit (Bld) [Volume fraction] 45.6 % Normal 36.0-48.0 [facility] Comment on above: Performed By: #### C BC ####[facility] [address] [place] [phone]. Lawrence Wayne Hemoglobin (Bld) [Mass/Vol] 15.4 g/dL Normal 12.0-16.0 [facility] Comment on above: Performed By: #### C BC ####[facility] [address] [place] [address]Dr. Lawrence Tone IG # 0.03 10e3/ul Normal 0.00-0.03 [facility] Comment on above: Performed By: #### C BC ####[facility] [address] [place] [id number]. Lawrence Wayne IG % 0.4 % Normal 0.0-0.5 [facility] Comment on above: Performed By: #### C BC ####[facility] [address] [place] [id number]. Lawrence Wayne LYMPH # 2.8 103/ul Normal 1.2-3.8 [facility] Comment on above: Performed By: #### C BC ####[facility] [address] [place] [phone]. Lawrence Wayne Lymphocytes/100 WBC (Bld) 33.5 % Normal 20.5-60.0 [facility] Comment on above: Performed By: #### C BC ####[facility] [address] [place] [phone]. Lawrence Wayne MANUAL DIFF REQ NO Normal [facility] Comment on above: Performed By: #### C BC ####[facility] [address] [place] [phone]. Lawrence Wayne MCH (RBC) [Entitic mass] 30.1 pg Normal 26.7-34.0 [facility] Comment on above: Performed By: #### C BC ####[facility] [address] [place] [phone]. Lawrence Wayne MCHC (RBC) [Mass/Vol] 33.8 g/dL Normal 29.9-35.2 [facility] Comment on above: Performed By: #### C BC ####[facility] [address] [place] [phone]. Lawrence Wayne MCV (RBC) [Entitic vol] 89.2 fL Normal 81.0-99.0 [facility] Comment on above: Performed By: #### C BC ####[facility] [address] [place] [phone]. Lawrence Wayne MONO # 0.8 103/ul Normal 0.3-0.8 [facility] Comment on above: Performed By: #### C BC ####[facility] [address] [place] [phone]. Lawrence Wayne Monocytes/100 WBC (Bld) 9.3 % Normal 1.7-12.0 [facility] Comment on above: Performed By: #### C BC ####[facility] [address] [place] [phone]. Lawrence Wayne NEUT # 4.6 103/ul Normal 1.4-6.5 [facility] Comment on above: Performed By: #### C BC ####[facility] [address] [place] [phone]. Lawrence Wayne Neutrophils/100 WBC (Bld) 55.5 % Normal 43.0-75.0 [facility] Comment on above: Performed By: #### C BC ####[facility] [address] [place] [phone]. Lawrence Wayne Platelet mean volume (Bld) [Entitic vol] 8.6 fL Critically low 9.5-13.5 [facility] Comment on above: Performed By: #### C BC ####[facility] [address] [place] [phone]. Lawrence Wayne PLT 380 103/ul Normal 150-450 [facility] Comment on above: Performed By: #### C BC ####[facility] [address] [place] [phone]. Lawrence Wayne RBC 5.11 106/ul Normal 4.20-5.40 [facility] Comment on above: Performed By: #### C BC ####[facility] [address] [place] [phone]. Lawrence Wayne WBC 8.3 103/ul Normal 4.0-11.0 [facility] Comment on above: Performed By: #### C BC ####[facility] [facility] [address] [id number]. Lawrence Wayne FREE THYROXINE INDEX T7on FTI 3.28 Normal 1.30-4.50 [facility] Comment on above: Performed By: #### T SH, T7, ALIYAH, LIPA, CMP ####[facility] [address] [address]Dr. Lawrence Wayne T3U 36.0 % Normal 30.0-39.0 [facility] Comment on above: Performed By: #### T SH, T7, ALIYAH, LIPA, CMP ####[facility] [address] [address]Dr. Lawrence Wayne T4 [Mass/Vol] 9.10 ug/dL Normal 4.80-13.90 [facility] Comment on above: Performed By: #### T SH, T7, ALIYAH, LIPA, CMP ####[facility] [address] [address]Dr. Lawrence Wayne LIPASEon 07-01-2022 Lipase [Catalytic activity/Vol] 125.0 U/L Normal 73.0-393.0 [facility] Comment on above: Performed By: #### T SH, T7, ALIYAH, LIPA, CMP ####[facility] [address] [address]Dr. Lawrence Wayne PROF 14(COMP METB)on 023 Albumin [Mass/Vol] 3.8 g/dL Normal 3.4-5.0 [facility] Comment on above: Performed By: #### T SH, T7, ALIYAH, LIPA, CMP ####[facility] [address] [address]Dr. Lawrence Wayne Albumin/Globulin [Mass ratio] 1.1 {ratio} Normal [facility] Comment on above: Performed By: #### T SH, T7, ALIYAH, LIPA, CMP ####[facility] [address] [address]Dr. Lawrence Wayne ALP [Catalytic activity/Vol] 104 U/L Normal 46-116 [facility] Comment on above: Performed By: #### T SH, T7, ALIYAH, LIPA, CMP ####[facility] [address] [address]Dr. Lawrence Wayne ALT [Catalytic activity/Vol] 36 U/L Normal 14-59 [facility] Comment on above: Performed By: #### T SH, T7, ALIYAH, LIPA, CMP ####[facility] [address] [address]Dr. Lawrence Wayne Anion gap [Moles/Vol] 11.7 mmol/L Normal [facility] Comment on above: Performed By: #### T SH, T7, ALIYAH, LIPA, CMP ####[facility] [address] [place], [place] [address]Dr. Lawrence Wayne AST [Catalytic activity/Vol] 22 U/L Normal 15-37 [facility] Comment on above: Performed By: #### T SH, T7, ALIYAH, LIPA, CMP ####[facility] [address] [place], [place] [address]Dr. Lawrence Wayne Bilirubin [Mass/Vol] 0.5 mg/dL Normal 0.2-1.0 [facility] Comment on above: Performed By: #### T SH, T7, ALIYAH, LIPA, CMP ####[facility] [address] [place], [place] [address]Dr. Lawrence Wayne Calcium [Mass/Vol] 9.8 mg/dL Normal 8.5-10.1 [facility] Comment on above: Performed By: #### T SH, T7, ALIYAH, LIPA, CMP ####[facility] [address] [place], [place] [address]Dr. Lawrence Wayne Chloride [Moles/Vol] 102 mmol/L Normal 98-107 [facility] Comment on above: Performed By: #### T SH, T7, ALIYAH, LIPA, CMP ####[facility] [address] [place], [place] [address]Dr. Lawrence Wayne CO2 [Moles/Vol] 29.3 mmol/L Normal 21.0-32.0 [facility] Comment on above: Performed By: #### T SH, T7, ALIYAH, LIPA, CMP ####[facility] [address] [place], [place] [address]Dr. Lawrence Wayne Creatinine [Mass/Vol] 0.88 mg/dL Normal 0.55-1.02 [facility] Comment on above: Performed By: #### T SH, T7, ALIYAH, LIPA, CMP ####[facility] [address] [address]Dr. Lawrence Wayne EGFR-AF FINNISH >60 Normal >=60 [facility] Comment on above: Performed By: #### T SH, T7, ALIYAH, LIPA, CMP ####[facility] [address] [address]Dr. Lawrence Wayne EGFR-NON AF FINNISH >60 Normal >=60 [facility] Comment on above: Performed By: #### T SH, T7, ALIYAH, LIPA, CMP ####[facility] [address] [address]Dr. Lawrence Wayne Globulin (S) [Mass/Vol] 3.5 g/dL Normal [facility] Comment on above: Performed By: #### T SH, T7, ALIYAH, LIPA, CMP ####[facility] [address] [place], [place] [address]Dr. Lawrence Wayne Glucose [Mass/Vol] 98 mg/dL Normal 74-106 [facility] Comment on above: Performed By: #### T SH, T7, ALIYAH, LIPA, CMP ####[facility] [address] [place], [place] [address]Dr. Lawrence Wayne Potassium [Moles/Vol] 3.9 mmol/L Normal 3.5-5.1 [facility] Comment on above: Performed By: #### T SH, T7, ALIYAH, LIPA, CMP ####[facility] [address] [place], [place] [address]Dr. Lawrence Wayne Protein [Mass/Vol] 7.3 g/dL Normal 6.4-8.2 [facility] Comment on above: Performed By: #### T SH, T7, ALIYAH, LIPA, CMP ####[facility] [address] [place], [place] [address]Dr. Lawrence Wayne Sodium [Moles/Vol] 139 mmol/L Normal 136-145 [facility] Comment on above: Performed By: #### T SH, T7, ALIYAH, LIPA, CMP ####[facility] [address] [address]Dr. Lawrence Wayne Urea nitrogen [Mass/Vol] 11.0 mg/dL Normal 7.0-18.0 [facility] Comment on above: Performed By: #### T SH, T7, ALIYAH, LIPA, CMP ####[facility] [address] [address]Dr. Lawrence Wayne Urea nitrogen/Creatinine [Mass ratio] 12.5 mg/mg Normal [facility] Comment on above: Performed By: #### T SH, T7, ALIYAH, LIPA, CMP ####[facility] [address] [address]Dr. Lawrence Wayne TSHon 07-01-2022 TSH 1.744 uIU/mL Normal 0.358-3.740 [facility] Comment on above: Performed By: #### T SH, T7, ALIYAH, LIPA, CMP ####[facility] [address] [address]Dr. Lawrence Wayne CBC AUTO DIFFon 06-17-2022 BASO # 0.0 103/ul Normal 0.0-0.1 [facility] Comment on above: Performed By: #### A MY, CMP, LIPA #### [facility] [address] [address] [address] Lawrence Wayne Basophils/100 WBC (Bld) 0.4 % Normal 0.2-2.0 [facility] Comment on above: Performed By: #### A MY, CMP, LIPA #### [facility] [address] [address] [address] Lawrence Wayne EO # 0.0 103/ul Normal 0.0-0.7 [facility] Comment on above: Performed By: #### A MY, CMP, LIPA #### [facility] [address] [address] [address] Lawrence Wayne Eosinophils/100 WBC (Bld) 0.8 % Critically low 0.9-7.0 [facility] Comment on above: Performed By: #### A MY, CMP, LIPA #### [facility] [address] [address] [address] Lawrence Wayne Erythrocyte distribution width (RBC) [Ratio] 13.2 % Normal 11.0-15.0 [facility] Comment on above: Performed By: #### A MY, CMP, LIPA #### [facility] [address] [address] [address] Lawrence Wayne Hematocrit (Bld) [Volume fraction] 43.1 % Normal 36.0-48.0 [facility] Comment on above: Performed By: #### A MY, CMP, LIPA #### [facility] [address] [address] [address] Lawrence Wayne Hemoglobin (Bld) [Mass/Vol] 15.1 g/dL Normal 12.0-16.0 [facility] Comment on above: Performed By: #### A MY, CMP, LIPA #### [facility] [address] [place] [address] Dr. Lawrence Wayne IG # 0.03 10e3/ul Normal 0.00-0.03 [facility] Comment on above: Performed By: #### A MY, CMP, LIPA #### [facility] [address] [address] [address] Lawrence Wayne IG % 0.6 % Critically high 0.0-0.5 [place] Comment on above: Performed By: #### A MY, CMP, LIPA #### [facility] [address] [address] [address] Lawrence Wayne LYMPH # 1.1 103/ul Critically low 1.2-3.8 [facility] Comment on above: Performed By: #### A MY, CMP, LIPA #### [facility] [address] [address] [address] Lawrence Wayne Lymphocytes/100 WBC (Bld) 22.0 % Normal 20.5-60.0 [facility] Comment on above: Performed By: #### A MY, CMP, LIPA #### [facility] [address] [address] [address] Lawrence Wayne MANUAL DIFF REQ NO Normal [facility] Comment on above: Performed By: #### A MY, CMP, LIPA #### [facility] [address] [address] [address] Lawrence Wayne MCH (RBC) [Entitic mass] 30.3 pg Normal 26.7-34.0 [facility] Comment on above: Performed By: #### A MY, CMP, LIPA #### [facility] [address] [place] [address] Dr. Lawrence Wayne MCHC (RBC) [Mass/Vol] 35.0 g/dL Normal 29.9-35.2 [facility] Comment on above: Performed By: #### A MY, CMP, LIPA #### [facility] [address] [place] [address] Dr. Lawrence Wayne MCV (RBC) [Entitic vol] 86.4 fL Normal 81.0-99.0 [facility] Comment on above: Performed By: #### A MY, CMP, LIPA #### [facility] [address] [place] [address] Dr. Lawrence Wayne MONO # 0.7 103/ul Normal 0.3-0.8 [facility] Comment on above: Performed By: #### A MY, CMP, LIPA #### [facility] [address] [place] [address] Dr. Lawrence Wayne Monocytes/100 WBC (Bld) 13.6 % Critically high 1.7-12.0 [facility] Comment on above: Performed By: #### A MY, CMP, LIPA #### [facility] [address] [place] [address] Dr. Lawrence Wayne NEUT # 3.2 103/ul Normal 1.4-6.5 [facility] Comment on above: Performed By: #### A MY, CMP, LIPA #### [facility] [address] [place] [address] Dr. Lawrence Wayne Neutrophils/100 WBC (Bld) 62.6 % Normal 43.0-75.0 [facility] Comment on above: Performed By: #### A MY, CMP, LIPA #### [facility] [address] [address] [address] Lawrence Wayne Platelet mean volume (Bld) [Entitic vol] 9.0 fL Critically low 9.5-13.5 [facility] Comment on above: Performed By: #### A MY, CMP, LIPA #### [facility] [address] [address] [address] Lawrence Wayne PLT 257 103/ul Normal 150-450 [facility] Comment on above: Performed By: #### A MY, CMP, LIPA #### [facility] [address] [address] [address] Lawrence Wayne RBC 4.99 106/ul Normal 4.20-5.40 [facility] Comment on above: Performed By: #### A MY, CMP, LIPA #### [facility] [address] [place] [address] Dr. Lawrence Wayne WBC 5.1 103/ul Normal 4.0-11.0 [facility] Comment on above: Performed By: #### A MY, CMP, LIPA #### [facility] [address] [place] [address] Dr. Lawrence Wayne INFL[facility]ENZA A [facility] Normal [facility] Comment on above: Result Comment: Nega tive for Flu B protein antigen. Infection due to Flu B cannot be ruled out. Flu B antigen in the sample may be below the detection limit of the test. Performed By: #### A MY, CMP, LIPA #### [facility] [address] [place] [address] Dr. Lawrence Wayne INFLUENZA A AG Positive Abnormal NEGATIVE SEE COMMENT [facility] Comment on above: Performed By: #### A MY, CMP, LIPA #### [facility] [address] [place] [address] Dr. Lawrence Wayne INFLUENZA B AG Negative Normal NEGATIVE SEE COMMENT [facility] Comment on above: Performed By: #### A MY, CMP, LIPA #### [facility] [address] [place] [address] Dr. Lawrence Wayne PROF 14(COMP METB)on 023 Albumin [Mass/Vol] 3.4 g/dL Normal 3.4-5.0 [facility] Comment on above: Performed By: #### A MY, CMP, LIPA #### [facility] [address] [address] [address] Lawrence Wayne Albumin/Globulin [Mass ratio] 0.9 {ratio} Normal [facility] Comment on above: Performed By: #### A MY, CMP, LIPA #### [facility] [address] [address] [address] Lawrence Wayne ALP [Catalytic activity/Vol] 94 U/L Normal 46-116 [facility] Comment on above: Performed By: #### A MY, CMP, LIPA #### [facility] [address] [place] [address] Dr. Lawrence Wayne ALT [Catalytic activity/Vol] 36 U/L Normal 14-59 [facility] Comment on above: Performed By: #### A MY, CMP, LIPA #### [facility] [address] [place] [address] Dr. Lawrence Wayne Anion gap [Moles/Vol] 18.9 mmol/L Normal [facility] Comment on above: Performed By: #### A MY, CMP, LIPA #### [facility] [address] [place] [address] Dr. Lawrence Wayne AST [Catalytic activity/Vol] 32 U/L Normal 15-37 [facility] Comment on above: Performed By: #### A MY, CMP, LIPA #### [facility] [address] [place] [address] Dr. Lawrence Wayne Bilirubin [Mass/Vol] 0.4 mg/dL Normal 0.2-1.0 [facility] Comment on above: Performed By: #### A MY, CMP, LIPA #### [facility] [address] [place] [address] Dr. Lawrence Wayne Calcium [Mass/Vol] 9.1 mg/dL Normal 8.5-10.1 [facility] Comment on above: Performed By: #### A MY, CMP, LIPA #### [facility] [address] [address] [address] Lawrence Wayne Chloride [Moles/Vol] 100 mmol/L Normal 98-107 [facility] Comment on above: Performed By: #### A MY, CMP, LIPA #### [facility] [address] [address] [address] Lawrence Wayne CO2 [Moles/Vol] 19.7 mmol/L Critically low 21.0-32.0 [facility] Comment on above: Performed By: #### A MY, CMP, LIPA #### [facility] [address] [address] [address] Lawrence Wayne Creatinine [Mass/Vol] 1.13 mg/dL Critically high 0.55-1.02 [facility] Comment on above: Performed By: #### A MY, CMP, LIPA #### [facility] [address] [address] [address] Lawrence Wayne EGFR-AF FINNISH 58 mL/min/1.73m2 Critically low >=60 [facility] Comment on above: Performed By: #### A MY, CMP, LIPA #### [facility] [address] [address] [address] Lawrence Wayne EGFR-NON AF FINNISH 48 mL/min/1.73m2 Critically low >=60 [facility] Comment on above: Performed By: #### A MY, CMP, LIPA #### [facility] [address] [address] [address] Lawrence Wayne Globulin (S) [Mass/Vol] 3.9 g/dL Normal [facility] Comment on above: Performed By: #### A MY, CMP, LIPA #### [facility] [address] [address] [address] Lawrence Wayne Glucose [Mass/Vol] 105 mg/dL Normal 74-106 [facility] Comment on above: Performed By: #### A MY, CMP, LIPA #### [facility] [address] [address] [address] Lawrence Wayne Potassium [Moles/Vol] 3.6 mmol/L Normal 3.5-5.1 [facility] Comment on above: Performed By: #### A MY, CMP, LIPA #### [facility] [address] [address] [address] Lawrence Wayne Protein [Mass/Vol] 7.3 g/dL Normal 6.4-8.2 [facility] Comment on above: Performed By: #### A MY, CMP, LIPA #### [facility] [address] [address] [address] Lawrence Wayne Sodium [Moles/Vol] 135 mmol/L Critically low 136-145 [facility] Comment on above: Performed By: #### A MY, CMP, LIPA #### [facility] [address] [place] [address] Dr. Lawrence Wayne Urea nitrogen [Mass/Vol] 13.0 mg/dL Normal 7.0-18.0 [facility] Comment on above: Performed By: #### A MY, CMP, LIPA #### [facility] [address] [place] [address] Dr. Lawrence Wayne Urea nitrogen/Creatinine [Mass ratio] 11.5 mg/mg Normal [facility] Comment on above: Performed By: #### A MY, CMP, LIPA #### [facility] [address] [place] [address] Dr. Lawrence Wayne MRI [facility] CONon 05-20-20 MRI [facility] CON EXAMINATION: MRI [facility] CON HISTORY: Cervical radiculopathy ; chronic cervical [...] TYRELL MOREJON Date: 2022-05-20 10:26 Normal [facility] AMYLASEon 05-07-2022 Amylase [Catalytic activity/Vol] 81 U/L Normal 25-115 [facility] Comment on above: Performed By: #### A MY, CMP, LIPA #### [facility] [address] [place] [address] Dr. Lawrence Wayne CBC AUTO DIFFon 05-07-2022 BASO # 0.0 103/ul Normal 0.0-0.1 [facility] Comment on above: Performed By: #### A MY, CMP, LIPA #### [facility] [address] [address] [address] Lawrence Wayne Basophils/100 WBC (Bld) 0.8 % Normal 0.2-2.0 [facility] Comment on above: Performed By: #### A MY, CMP, LIPA #### [facility] [address] [place] [address] Dr. Lawrence Wayne EO # 0.1 103/ul Normal 0.0-0.7 [facility] Comment on above: Performed By: #### A MY, CMP, LIPA #### [facility] [address] [place] [address] Dr. Lawrence Wayne Eosinophils/100 WBC (Bld) 1.5 % Normal 0.9-7.0 [facility] Comment on above: Performed By: #### A MY, CMP, LIPA #### [facility] [address] [address] [address] Lawrence Wayne Erythrocyte distribution width (RBC) [Ratio] 12.7 % Normal 11.0-15.0 [facility] Comment on above: Performed By: #### A MY, CMP, LIPA #### [facility] [address] [place] [address] Dr. Lawrence Wayne Hematocrit (Bld) [Volume fraction] 40.5 % Normal 36.0-48.0 [facility] Comment on above: Performed By: #### A MY, CMP, LIPA #### [facility] [address] [address] [address] Lawrence Wayne Hemoglobin (Bld) [Mass/Vol] 13.8 g/dL Normal 12.0-16.0 [facility] Comment on above: Performed By: #### A MY, CMP, LIPA #### [facility] [address] [place] [address] Dr. Lawrence Wayne IG # 0.01 10e3/ul Normal 0.00-0.03 [facility] Comment on above: Performed By: #### A MY, CMP, LIPA #### [facility] [address] [place] [address] Dr. Lawrence Wayne IG % 0.2 % Normal 0.0-0.5 [facility] Comment on above: Performed By: #### A MY, CMP, LIPA #### [facility] [address] [place] [address] Dr. Lawrence Wayne LYMPH # 1.7 103/ul Normal 1.2-3.8 [facility] Comment on above: Performed By: #### A MY, CMP, LIPA #### [facility] [address] [place] [address] Dr. Lawrence Wayne Lymphocytes/100 WBC (Bld) 32.7 % Normal 20.5-60.0 [facility] Comment on above: Performed By: #### A MY, CMP, LIPA #### [facility] [address] [place] [address] Dr. Lawrence Wayne MANUAL DIFF REQ NO Normal [place] Comment on above: Performed By: #### A MY, CMP, LIPA #### [facility] [address] [place] [address] Dr. Lawrence Wayne MCH (RBC) [Entitic mass] 30.5 pg Normal 26.7-34.0 [facility] Comment on above: Performed By: #### A MY, CMP, LIPA #### [facility] [address] [place] [address] Dr. Lawrence Wayne MCHC (RBC) [Mass/Vol] 34.1 g/dL Normal 29.9-35.2 [facility] Comment on above: Performed By: #### A MY, CMP, LIPA #### [facility] [address] [place] [address] Dr. Lawrence Wayne MCV (RBC) [Entitic vol] 89.4 fL Normal 81.0-99.0 [facility] Comment on above: Performed By: #### A MY, CMP, LIPA #### [facility] [address] [place] [address] Dr. Lawrence Wayne MONO # 0.6 103/ul Normal 0.3-0.8 [facility] Comment on above: Performed By: #### A MY, CMP, LIPA #### [facility] [address] [place] [address] Dr. Lawrence Wayne Monocytes/100 WBC (Bld) 10.5 % Normal 1.7-12.0 [facility] Comment on above: Performed By: #### A MY, CMP, LIPA #### [facility] [address] [place] [address] Dr. Lawrence Wanye NEUT # 2.9 103/ul Normal 1.4-6.5 [facility] Comment on above: Performed By: #### A MY, CMP, LIPA #### [facility] [address] [place] [address] Dr. Lawrence Wayne Neutrophils/100 WBC (Bld) 54.3 % Normal 43.0-75.0 [facility] Comment on above: Performed By: #### A MY, CMP, LIPA #### [facility] [address] [address] [address] Lawrence Wayne Platelet mean volume (Bld) [Entitic vol] 9.4 fL Critically low 9.5-13.5 [facility] Comment on above: Performed By: #### A MY, CMP, LIPA #### [facility] [address] [address] [address] Lawrence Wayne PLT 292 103/ul Normal 150-450 [facility] Comment on above: Performed By: #### A MY, CMP, LIPA #### [facility] [address] [place] [address] Dr. Lawrence Wayne RBC 4.53 106/ul Normal 4.20-5.40 [facility] Comment on above: Performed By: #### A MY, CMP, LIPA #### [facility] [address] [place] [address] Dr. Lawrence Wayne WBC 5.3 103/ul Normal 4.0-11.0 [facility] Comment on above: Performed By: #### A MY, CMP, LIPA #### [facility] [address] [place] [address] Dr. Lawrence Wayne LIPASEon 05-07-2022 Lipase [Catalytic activity/Vol] 86.0 U/L Normal 73.0-393.0 [facility] Comment on above: Performed By: #### A MY, CMP, LIPA #### [facility] [address] [place] [address] Dr. Lawrence Wayne PROF 14(COMP METB)on 022 Albumin [Mass/Vol] 3.7 g/dL Normal 3.4-5.0 [facility] Comment on above: Performed By: #### A MY, CMP, LIPA #### [facility] [address] [place] [address] Dr. Lawrence Wayne Albumin/Globulin [Mass ratio] 1.1 {ratio} Normal [facility] Comment on above: Performed By: #### A MY, CMP, LIPA #### [facility] [address] [place] [address] Dr. Lawrence Wayne ALP [Catalytic activity/Vol] 96 U/L Normal 46-116 [facility] Comment on above: Performed By: #### A MY, CMP, LIPA #### [facility] [address] [place] [address] Dr. Lawrence Wayne ALT [Catalytic activity/Vol] 24 U/L Normal 14-59 [facility] Comment on above: Performed By: #### A MY, CMP, LIPA #### [facility] [address] [place] [address] Dr. Lawrence Wayne Anion gap [Moles/Vol] 8.3 mmol/L Normal [facility] Comment on above: Performed By: #### A MY, CMP, LIPA #### [facility] [address] [place] [address] Dr. Lawrence Wayne AST [Catalytic activity/Vol] 19 U/L Normal 15-37 [facility] Comment on above: Performed By: #### A MY, CMP, LIPA #### [facility] [address] [place] [address] Dr. Lawrence Wayne Bilirubin [Mass/Vol] 0.2 mg/dL Normal 0.2-1.0 [facility] Comment on above: Performed By: #### A MY, CMP, LIPA #### [facility] [address] [place] [address] Dr. Lawrence Wayne Calcium [Mass/Vol] 9.1 mg/dL Normal 8.5-10.1 [facility] Comment on above: Performed By: #### A MY, CMP, LIPA #### [facility] [address] [place] [address] Dr. Lawrence Wayne Chloride [Moles/Vol] 103 mmol/L Normal 98-107 [facility] Comment on above: Performed By: #### A MY, CMP, LIPA #### [facility] [address] [place] [address] Dr. Lawrence Wayne CO2 [Moles/Vol] 30.6 mmol/L Normal 21.0-32.0 [facility] Comment on above: Performed By: #### A MY, CMP, LIPA #### [facility] [address] [place], [place] [id number] Dr. Lawrence Wayne Creatinine [Mass/Vol] 0.88 mg/dL Normal 0.55-1.02 [facility] Comment on above: Performed By: #### A MY, CMP, LIPA #### [facility] [address] [address] [address] Lawrence Wayne EGFR-AF FINNISH >60 Normal >=60 [facility] Comment on above: Performed By: #### A MY, CMP, LIPA #### [facility] [address] [address] [address] Lawrence Wayne EGFR-NON AF FINNISH >60 Normal >=60 [facility] Comment on above: Performed By: #### A MY, CMP, LIPA #### [facility] [address] [place] [address] Dr. Lawrence Wayne Globulin (S) [Mass/Vol] 3.4 g/dL Normal [facility] Comment on above: Performed By: #### A MY, CMP, LIPA #### [facility] [address] [place] [address] Dr. Lawrence Wayne Glucose [Mass/Vol] 94 mg/dL Normal 74-106 [facility] Comment on above: Performed By: #### A MY, CMP, LIPA #### [facility] [address] [place] [address] Dr. Lawrence Wayne Potassium [Moles/Vol] 3.9 mmol/L Normal 3.5-5.1 [facility] Comment on above: Performed By: #### A MY, CMP, LIPA #### [facility] [address] [place] [address] Dr. Lawrence Wayne Protein [Mass/Vol] 7.1 g/dL Normal 6.4-8.2 [facility] Comment on above: Performed By: #### A MY, CMP, LIPA #### [facility] [address] [address] [address] Lawrence Wayne Sodium [Moles/Vol] 138 mmol/L Normal 136-145 [facility] Comment on above: Performed By: #### A MY, CMP, LIPA #### [facility] [address] [place], [place] [address] Dr. Lawrence Wayne Urea nitrogen [Mass/Vol] 10.0 mg/dL Normal 7.0-18.0 [facility] Comment on above: Performed By: #### A MY, CMP, LIPA #### [facility] [address] [place], [place] [address] Dr. Lawrence Wayne Urea nitrogen/Creatinine [Mass ratio] 11.4 mg/mg Normal [facility] Comment on above: Performed By: #### A MY, CMP, LIPA #### [facility] [address] [place], [place] [address] Dr. Lawrence Wayne MG MAMM SCREEN 3D QING CADon 03-26-2022 MG MAMM SCREEN 3D QING CAD Patient: SKIP HONG Exam Date: 03/26/2022 : 1955 Gender:F Ordering : DR RADHA LYMAN . Admission #: [id number] Family : Order #: [id number] CLICK HERE TO VIEW EXAM RADIOLOGY REPORT [...] breast cancer at age 30. LOCATION: [facility] BREAST COMPOSITION: Heterogeneously dense,which may obscure [...] MD on 03/26/2022 at 09:53 Normal [facility] NM STRESS/REST MULTIon 03-24 NM STRESS/REST MULTI Patient: MANISHA HONG Exam Date: 03/24/2022 : 1955 Gender:F Ordering : DR ANITHA MCGREGOR . Admission #: [id number] Family : Order #: [id number] CLICK HERE TO VIEW EXAM RADIOLOGY REPORT [...] MD on 03/25/2022 at 07:15 Normal [facility] T4, T3U, FTI LABCORPon 02-19 Free Thyroxine Index 2.3 Normal 1.2-4.9 [facility] Comment on above: Performed By: #### A MY, CMP, LIPA #### [facility] [address] [address] [address] Lawrence Wayne T3 Uptake 28 % Normal 24-39 [facility] Comment on above: Performed By: #### A MY, CMP, LIPA #### [facility] [address] [address] [address] Lawrence Wayne T4 [Mass/Vol] 8.3 ug/dL Normal 4.5-12.0 [facility] Comment on above: Performed By: #### A MY, CMP, LIPA #### [facility] [address] [address] [address] Lawrence Wayne BNPon 02-18-2022 Natriuretic peptide B (Bld) [Mass/Vol] 78.0 pg/mL Normal <=900.0 [facility] Comment on above: Performed By: #### A MY, CMP, LIPA #### [facility] [address] [place] [address] Dr. Lawrence Wayne CBC AUTO DIFFon 02-18-2022 BASO # 0.1 103/ul Normal 0.0-0.1 [facility] Comment on above: Performed By: #### C BC ####[facility] [address] [address]DrKim Wayne Basophils/100 WBC (Bld) 0.9 % Normal 0.2-2.0 [facility] Comment on above: Performed By: #### C BC ####[facility] [address] [place], [place] [address]DrKim Wayne EO # 0.1 103/ul Normal 0.0-0.7 [facility] Comment on above: Performed By: #### C BC ####[facility] [address] [address]Dr. Lawrence Wayne Eosinophils/100 WBC (Bld) 1.1 % Normal 0.9-7.0 [facility] Comment on above: Performed By: #### C BC ####[facility] [address] [address]DrKim Wayne Erythrocyte distribution width (RBC) [Ratio] 12.6 % Normal 11.0-15.0 [facility] Comment on above: Performed By: #### C BC ####[facility] [address] [place], [place] [address]Dr. Bermudezantonio Wayne Hematocrit (Bld) [Volume fraction] 44.4 % Normal 36.0-48.0 [facility] Comment on above: Performed By: #### C BC ####[facility] [address] [address]Dr. Lawrence Wayne Hemoglobin (Bld) [Mass/Vol] 14.7 g/dL Normal 12.0-16.0 [facility] Comment on above: Performed By: #### C BC ####[facility] [address] [address]Dr. Lawrence Wayne IG # 0.02 10e3/ul Normal 0.00-0.03 [facility] Comment on above: Performed By: #### C BC ####[facility] [address] [address]Dr. Lawrence Wayne IG % 0.3 % Normal 0.0-0.5 [facility] Comment on above: Performed By: #### C BC ####[facility] [address] [place], [place] [address]Dr. Lawrence Wayne LYMPH # 1.8 103/ul Normal 1.2-3.8 [facility] Comment on above: Performed By: #### C BC ####[facility] [address] [place], [place] [address]Dr. Lawrence Wayne Lymphocytes/100 WBC (Bld) 26.1 % Normal 20.5-60.0 [facility] Comment on above: Performed By: #### C BC ####[facility] [address] [place], [place] [address]Dr. Lawrence Wayne MANUAL DIFF REQ NO Normal [facility] Comment on above: Performed By: #### C BC ####[facility] [address] [place], [place] [address]Dr. Lawrence Wayne MCH (RBC) [Entitic mass] 30.2 pg Normal 26.7-34.0 [facility] Comment on above: Performed By: #### C BC ####[facility] [address] [place], [place] [address]Dr. Lawrence Wayne MCHC (RBC) [Mass/Vol] 33.1 g/dL Normal 29.9-35.2 [facility] Comment on above: Performed By: #### C BC ####[facility] [address] [address]Dr. Laraantonio Wayne MCV (RBC) [Entitic vol] 91.4 fL Normal 81.0-99.0 [facility] Comment on above: Performed By: #### C BC ####[facility] [address] [place], [place] [address]Dr. Lawrence Wayne MONO # 0.8 103/ul Normal 0.3-0.8 [facility] Comment on above: Performed By: #### C BC ####[facility] [address] [place], [place] [address]Dr. Lawrence Wayne Monocytes/100 WBC (Bld) 11.0 % Normal 1.7-12.0 [facility] Comment on above: Performed By: #### C BC ####[facility] [address] [place], [place] [address]Dr. Lawrence Wayne NEUT # 4.2 103/ul Normal 1.4-6.5 [facility] Comment on above: Performed By: #### C BC ####[facility] [address] [place], [place] [address]Dr. Lawrence Wayne Neutrophils/100 WBC (Bld) 60.6 % Normal 43.0-75.0 [facility] Comment on above: Performed By: #### C BC ####[facility] [address] [place], [place] [address]Dr. Lawrence Wayne Platelet mean volume (Bld) [Entitic vol] 9.2 fL Critically low 9.5-13.5 [facility] Comment on above: Performed By: #### C BC ####[facility] [address] [place], [place] [address]Dr. Lawrence Wayne PLT 322 103/ul Normal 150-450 [facility] Comment on above: Performed By: #### C BC ####[facility] [address] [place], [place] [address]Dr. Lawrence Wayne RBC 4.86 106/ul Normal 4.20-5.40 [facility] Comment on above: Performed By: #### C BC ####[facility] [address] [place], [place] [address]Dr. Lawrence Wayne WBC 7.0 103/ul Normal 4.0-11.0 [facility] Comment on above: Performed By: #### C BC ####[facility] [address] [place], [place] [address]FpDr. Lawrence Wayne IRONon 02-18-2022 Iron [Mass/Vol] 89.0 ug/dL Normal 50.0-170.0 [facility] Comment on above: Performed By: #### A MY, CMP, LIPA #### [facility] [address] [address] [address] Lawrence Wayne PROF 14(COMP METB)on 022 Albumin [Mass/Vol] 4.0 g/dL Normal 3.4-5.0 [facility] Comment on above: Performed By: #### A MY, CMP, LIPA #### [facility] [address] [address] [address] Lawrence Wayne Albumin/Globulin [Mass ratio] 1.1 {ratio} Normal [facility] Comment on above: Performed By: #### A MY, CMP, LIPA #### [facility] [address] [address] [address] Lawrence Wayne ALP [Catalytic activity/Vol] 98 U/L Normal 46-116 [facility] Comment on above: Performed By: #### A MY, CMP, LIPA #### [facility] [address] [address] [address] Lawrence Wayne ALT [Catalytic activity/Vol] 23 U/L Normal 14-59 [facility] Comment on above: Performed By: #### A MY, CMP, LIPA #### [facility] [address] [address] [address] Lawrence Wayne Anion gap [Moles/Vol] 4.9 mmol/L Normal [facility] Comment on above: Performed By: #### A MY, CMP, LIPA #### [facility] [address] [address] [address] Lawrence Wayne AST [Catalytic activity/Vol] 19 U/L Normal 15-37 [facility] Comment on above: Performed By: #### A MY, CMP, LIPA #### [facility] [address] [address] [address] Lawrence Wayne Bilirubin [Mass/Vol] 0.4 mg/dL Normal 0.2-1.0 [facility] Comment on above: Performed By: #### A MY, CMP, LIPA #### [facility] [address] [address] [address] Lawrence Wayne Calcium [Mass/Vol] 9.5 mg/dL Normal 8.5-10.1 [facility] Comment on above: Performed By: #### A MY, CMP, LIPA #### [facility] [address] [address] [address] Lawrence Wayne Chloride [Moles/Vol] 102 mmol/L Normal 98-107 [facility] Comment on above: Performed By: #### A MY, CMP, LIPA #### [facility] [address] [address] [address] Lawrence Wayne CO2 [Moles/Vol] 30.1 mmol/L Normal 21.0-32.0 [facility] Comment on above: Performed By: #### A MY, CMP, LIPA #### [facility] [address] [address] [address] Lawrence Wayne Creatinine [Mass/Vol] 0.99 mg/dL Normal 0.55-1.02 [facility] Comment on above: Performed By: #### A MY, CMP, LIPA #### [facility] [address] [address] [address] Lawrence Wayne EGFR-AF FINNISH >60 Normal >=60 [facility] Comment on above: Performed By: #### A MY, CMP, LIPA #### [facility] [address] [address] [address] Lawrence Wayne EGFR-NON AF FINNISH 56 mL/min/1.73m2 Critically low >=60 [facility] Comment on above: Performed By: #### A MY, CMP, LIPA #### [facility] [address] [address] [address] Lawrence Wayne Globulin (S) [Mass/Vol] 3.5 g/dL Normal [facility] Comment on above: Performed By: #### A MY, CMP, LIPA #### [facility] [address] [address] [address] Lawrence Wayne Glucose [Mass/Vol] 100 mg/dL Normal 74-106 [facility] Comment on above: Performed By: #### A MY, CMP, LIPA #### [facility] [address] [place] [address] Dr. Lawrence Wayne Potassium [Moles/Vol] 4.0 mmol/L Normal 3.5-5.1 [facility] Comment on above: Performed By: #### A MY, CMP, LIPA #### [facility] [address] [place] [address] Dr. Lawrence Wayne Protein [Mass/Vol] 7.5 g/dL Normal 6.4-8.2 [facility] Comment on above: Performed By: #### A MY, CMP, LIPA #### [facility] [address] [place] [address] Dr. Lawrence Wayne Sodium [Moles/Vol] 133 mmol/L Critically low 136-145 [facility] Comment on above: Performed By: #### A MY, CMP, LIPA #### [facility] [address] [place] [address] Dr. Lawrence Wayne Urea nitrogen [Mass/Vol] 14.0 mg/dL Normal 7.0-18.0 [facility] Comment on above: Performed By: #### A MY, CMP, LIPA #### [facility] [address] [place] [address] Dr. Lawrence Wayne Urea nitrogen/Creatinine [Mass ratio] 14.1 mg/mg Normal [facility] Comment on above: Performed By: #### A MY, CMP, LIPA #### [facility] [address] [address] [address] Lawrence Wayne TSHon 02-18-2022 TSH 1.273 uIU/mL Normal 0.358-3.740 [facility] Comment on above: Performed By: #### A MY, CMP, LIPA #### [facility] [address] [address] [address] Lawrence Wayne AMMONIAon 02-07-2022 Ammonia (P) [Mass/Vol] ug/dL Critically low 11-32 [facility] Comment on above: Performed By: #### A MM ####[facility] [address] [address]Dr. Lawrence Wayne AMYLASEon 02-07-2022 Amylase [Catalytic activity/Vol] 88 U/L Normal 25-115 [facility] Comment on above: Performed By: #### A MY, CMP, LIPA #### [facility] [address] [place] [address] Dr. Lawrence Wayne BNPon 02-07-2022 Natriuretic peptide B (Bld) [Mass/Vol] 236.0 pg/mL Normal <=900.0 [facility] Comment on above: Performed By: #### A MY, CMP, LIPA #### [facility] [address] [place] [address] Dr. Lawrence Wayne CBC AUTO DIFFon 02-07-2022 BASO # 0.0 103/ul Normal 0.0-0.1 [facility] Comment on above: Performed By: #### C BC ####[facility] [address] [address]Dr. Lawrence Wayne Basophils/100 WBC (Bld) 0.7 % Normal 0.2-2.0 [facility] Comment on above: Performed By: #### C BC ####[facility] [address] [place], [place] [address]Dr. Lawrence Wayne EO # 0.1 103/ul Normal 0.0-0.7 [facility] Comment on above: Performed By: #### C BC ####[facility] [address] [place], [place] [address]Dr. Bermudezlan Wayne Eosinophils/100 WBC (Bld) 1.3 % Normal 0.9-7.0 [facility] Comment on above: Performed By: #### C BC ####[facility] [address] [address]Dr. Lawrence Wayne Erythrocyte distribution width (RBC) [Ratio] 12.7 % Normal 11.0-15.0 [facility] Comment on above: Performed By: #### C BC ####[facility] [address] [place], [place] [address]Dr. Lawrence Wayne Hematocrit (Bld) [Volume fraction] 38.7 % Normal 36.0-48.0 [facility] Comment on above: Performed By: #### C BC ####[facility] [address] [place], [place] [address]Dr. Lawrence Wayne Hemoglobin (Bld) [Mass/Vol] 12.4 g/dL Normal 12.0-16.0 [facility] Comment on above: Result Comment: RECE IVING BOLUS AND SALINE Performed By: #### C BC ####[facility] [address] [place], [place] [address]Dr. Lawrence Wayne IG # 0.01 10e3/ul Normal 0.00-0.03 [facility] Comment on above: Performed By: #### C BC ####[facility] [address] [place], [place] [address]Dr. Lawrence Wayne IG % 0.2 % Normal 0.0-0.5 [facility] Comment on above: Performed By: #### C BC ####[facility] [address] [place], [place] [address]Dr. Lawrence Wayne LYMPH # 1.9 103/ul Normal 1.2-3.8 [facility] Comment on above: Performed By: #### C BC ####[facility] [address] [place], [place] [address]Dr. Lawrence Wayne Lymphocytes/100 WBC (Bld) 35.0 % Normal 20.5-60.0 [facility] Comment on above: Performed By: #### C BC ####[facility] [address] [address]Dr. Lawrence Wayne MANUAL DIFF REQ NO Normal [facility] Comment on above: Performed By: #### C BC ####[facility] [address] [address]Dr. Lawrence Wayne MCH (RBC) [Entitic mass] 30.2 pg Normal 26.7-34.0 [facility] Comment on above: Performed By: #### C BC ####[facility] [address] [address]Dr. Lawrence Wayne MCHC (RBC) [Mass/Vol] 32.0 g/dL Normal 29.9-35.2 [facility] Comment on above: Performed By: #### C BC ####[facility] [address] [address]Dr. Lawrence Wayne MCV (RBC) [Entitic vol] 94.2 fL Normal 81.0-99.0 [facility] Comment on above: Performed By: #### C BC ####[facility] [address] [place], [place] [address]Dr. Lawrence Tone MONO # 0.6 103/ul Normal 0.3-0.8 [facility] Comment on above: Performed By: #### C BC ####[facility] [address] [place], [place] [address]Dr. Lawrence Tone Monocytes/100 WBC (Bld) 10.7 % Normal 1.7-12.0 [facility] Comment on above: Performed By: #### C BC ####[facility] [address] [place], [place] [address]Dr. Lawrence Wayne NEUT # 2.9 103/ul Normal 1.4-6.5 [facility] Comment on above: Performed By: #### C BC ####[facility] [address] [place], [place] [address]Dr. Laraantonio Wayne Neutrophils/100 WBC (Bld) 52.1 % Normal 43.0-75.0 [facility] Comment on above: Performed By: #### C BC ####[facility] [address] [id number]. Lawrence Wayne Platelet mean volume (Bld) [Entitic vol] 9.5 fL Normal 9.5-13.5 [facility] Comment on above: Performed By: #### C BC ####[facility] [address] [address]Dr. Lawrence Wayne PLT 260 103/ul Normal 150-450 [facility] Comment on above: Performed By: #### C BC ####[facility] [address] [address]Dr. Lawrence Wayne RBC 4.11 106/ul Critically low 4.20-5.40 [place] Comment on above: Performed By: #### C BC ####[facility] [address] [id number]. Lawrence Wayne WBC 5.5 103/ul Normal 4.0-11.0 [facility] Comment on above: Performed By: #### C BC ####[facility] [address] [address]DrKim Wayne PROF 14(COMP METB)on 022 Albumin [Mass/Vol] 3.0 g/dL Critically low 3.4-5.0 [facility] Comment on above: Performed By: #### A MY, CMP, LIPA #### [facility] [address] [address] [address] Lawrence Wayne Albumin/Globulin [Mass ratio] 1.1 {ratio} Normal [facility] Comment on above: Performed By: #### A MY, CMP, LIPA #### [facility] [address] [address] [address] Lawrence Wayne ALP [Catalytic activity/Vol] 77 U/L Normal 46-116 [facility] Comment on above: Performed By: #### A MY, CMP, LIPA #### [facility] [address] [address] [address] Lawrence Wayne ALT [Catalytic activity/Vol] 21 U/L Normal 14-59 [facility] Comment on above: Performed By: #### A MY, CMP, LIPA #### [facility] [address] [address] [address] Lawrence Wayne Anion gap [Moles/Vol] 10.9 mmol/L Normal [facility] Comment on above: Performed By: #### A MY, CMP, LIPA #### [facility] [address] [address] [address] Lawrence Wayne AST [Catalytic activity/Vol] 15 U/L Normal 15-37 [facility] Comment on above: Performed By: #### A MY, CMP, LIPA #### [facility] [address] [address] [address] Lawrence Wayne Bilirubin [Mass/Vol] 0.3 mg/dL Normal 0.2-1.0 [facility] Comment on above: Performed By: #### A MY, CMP, LIPA #### [facility] [address] [place] [address] Dr. Lawrence Wayne Calcium [Mass/Vol] 8.4 mg/dL Critically low 8.5-10.1 [facility] Comment on above: Performed By: #### A MY, CMP, LIPA #### [facility] [address] [address] [address] Lawrence Wayne Chloride [Moles/Vol] 110 mmol/L Critically high 98-107 [facility] Comment on above: Performed By: #### A MY, CMP, LIPA #### [facility] [address] [address] [address] Lawrence Wayne CO2 [Moles/Vol] 25.0 mmol/L Normal 21.0-32.0 [facility] Comment on above: Performed By: #### A MY, CMP, LIPA #### [facility] [address] [place] [address] Dr. Lawrence Wayne Creatinine [Mass/Vol] 0.87 mg/dL Normal 0.55-1.02 [facility] Comment on above: Performed By: #### A MY, CMP, LIPA #### [facility] [address] [address] [address] Lawrence Wayne EGFR-AF FINNISH >60 Normal >=60 [facility] Comment on above: Performed By: #### A MY, CMP, LIPA #### [facility] [address] [place] [address] Dr. Lawrence Wayne EGFR-NON AF FINNISH >60 Normal >=60 [facility] Comment on above: Performed By: #### A MY, CMP, LIPA #### [facility] [address] [place] [address] Dr. Lawrence Wayne Globulin (S) [Mass/Vol] 2.8 g/dL Normal [facility] Comment on above: Performed By: #### A MY, CMP, LIPA #### [facility] [address] [place] [address] Dr. Lawrence Wayne Glucose [Mass/Vol] 96 mg/dL Normal 74-106 [facility] Comment on above: Performed By: #### A MY, CMP, LIPA #### [facility] [address] [place] [address] Dr. Lawrence Wayne Potassium [Moles/Vol] 3.9 mmol/L Normal 3.5-5.1 [facility] Comment on above: Performed By: #### A MY, CMP, LIPA #### [facility] [address] [place] [address] Dr. Lawrence Wayne Protein [Mass/Vol] 5.8 g/dL Critically low 6.4-8.2 [facility] Comment on above: Performed By: #### A MY, CMP, LIPA #### [facility] [address] [place] [address] Dr. Lawrence Wayne Sodium [Moles/Vol] 142 mmol/L Normal 136-145 [facility] Comment on above: Performed By: #### A MY, CMP, LIPA #### [facility] [address] [place] [address] Dr. Lawrence Wayne Urea nitrogen [Mass/Vol] 11.0 mg/dL Normal 7.0-18.0 [facility] Comment on above: Performed By: #### A MY, CMP, LIPA #### [facility] [address] [address] [address] Lawrence Wayne Urea nitrogen/Creatinine [Mass ratio] 12.6 mg/mg Normal [facility] Comment on above: Performed By: #### A MY, CMP, LIPA #### [facility] [address] [address] [address] Lawrence Wayne AMMONIAon 02-06-2022 Ammonia (P) [Moles/Vol] 44 umol/L Critically high 11-32 [facility] Comment on above: Performed By: #### A MY, CMP, LIPA #### [facility] [address] [address] [address] Lawrence Wayne AMYLASEon 02-06-2022 Amylase [Catalytic activity/Vol] 89 U/L Normal 25-115 [facility] Comment on above: Performed By: #### M G, CMP, CMADM, BNP, ALIYAH, LIPA #### [facility] [address] [address] [address] Lawrence Wayne BNPon 02-06-2022 Natriuretic peptide B (Bld) [Mass/Vol] 103.0 pg/mL Normal <=900.0 [facility] Comment on above: Performed By: #### M G, CMP, CMADM, BNP, ALIYAH, LIPA ####[facility] [address] [address]Dr. Lawrence Wayne CARDIAC ORAL ADMITon 022 CK [Catalytic activity/Vol] 65 U/L Normal 26-192 [facility] Comment on above: Performed By: #### M G, CMP, CMADM, BNP, ALIYAH, LIPA #### [facility] [address] [address] [address] Lawrence Wayne CK.MB [Mass/Vol] 1.16 ng/mL Normal <=3.60 [facility] Comment on above: Performed By: #### M G, CMP, CMADM, BNP, ALIYAH, LIPA #### [facility] [address] [address] [address] Lawrence Wayne HSTROP <4.0 Normal 4.0-51.3 [facility] Comment on above: Result Comment: CUT- OFF POINTS HAVE BEEN ESTABLISHED BASED ON THE FOURTH UNIVERSAL DEFINITIONS OF MYOCARDIAL INFARCTION. THE UPPER REFERENCE LIMIT (URL) OF TROPONIN, DEFINED THE 99TH PERCENTILE OF cTnI DISTRIBUTION IN A REFERENCE POPULATION, HAS BEEN CONFIRMED THE DECISION THRESHOLD FOR CA DIAGNOSIS. Performed By: #### M G, CMP, CMADM, BNP, ALIYAH, LIPA #### [facility] [address] [place], [place] [address] Dr. Lawrence Wayne GEORGI 47 ng/mL Normal 9-82 [facility] Comment on above: Performed By: #### M G, CMP, CMADM, BNP, ALIYAH, LIPA #### [facility] [address] [place], [place] [address] Dr. Lawrence Wayne CBC AUTO DIFFon 02-06-2022 BASO # 0.1 103/ul Normal 0.0-0.1 [facility] Comment on above: Performed By: #### C BC ####[facility] [address] [address]Dr. Lawrence Wayne Basophils/100 WBC (Bld) 0.7 % Normal 0.2-2.0 [facility] Comment on above: Performed By: #### C BC ####[facility] [address] [address]Dr. Lawrence Wayne EO # 0.1 103/ul Normal 0.0-0.7 [facility] Comment on above: Performed By: #### C BC ####[facility] [address] [id number]. Lawrence Wayne Eosinophils/100 WBC (Bld) 1.1 % Normal 0.9-7.0 [facility] Comment on above: Performed By: #### C BC ####[facility] [address] [address]DrKim Wayne Erythrocyte distribution width (RBC) [Ratio] 12.6 % Normal 11.0-15.0 [facility] Comment on above: Performed By: #### C BC ####[facility] [address] [address]Dr. Lawrence Wayne Hematocrit (Bld) [Volume fraction] 44.3 % Normal 36.0-48.0 [facility] Comment on above: Performed By: #### C BC ####[facility] [address] [address]Dr. Lawrence Wayne Hemoglobin (Bld) [Mass/Vol] 14.4 g/dL Normal 12.0-16.0 [facility] Comment on above: Performed By: #### C BC ####[facility] [address] [address]Dr. Lawrence Wayne IG # 0.01 10e3/ul Normal 0.00-0.03 [facility] Comment on above: Performed By: #### C BC ####[facility] [address] [place], [place] [address]Dr. Laraantonio Tone IG % 0.1 % Normal 0.0-0.5 [facility] Comment on above: Performed By: #### C BC ####[facility] [address] [place], [place] [address]Dr. Lawrence Wayne LYMPH # 2.1 103/ul Normal 1.2-3.8 [facility] Comment on above: Performed By: #### C BC ####[facility] [address] [place], [place] [address]Dr. Laraantonio Wayne Lymphocytes/100 WBC (Bld) 29.6 % Normal 20.5-60.0 [facility] Comment on above: Performed By: #### C BC ####[facility] [address] [place] [address]Dr. Lawrence Wayne MANUAL DIFF REQ NO Normal [place] Comment on above: Performed By: #### C BC ####[facility] [address] [place], [place] [address]Dr. Lawrence Wayne MCH (RBC) [Entitic mass] 30.4 pg Normal 26.7-34.0 [facility] Comment on above: Performed By: #### C BC ####[facility] [address] [address]Dr. Lawrence Wayne MCHC (RBC) [Mass/Vol] 32.5 g/dL Normal 29.9-35.2 [facility] Comment on above: Performed By: #### C BC ####[facility] [address] [address]Dr. Lawrence Tone MCV (RBC) [Entitic vol] 93.7 fL Normal 81.0-99.0 [facility] Comment on above: Performed By: #### C BC ####[facility] [address] [place], [place] [address]Dr. Lawrence Tone MONO # 0.8 103/ul Normal 0.3-0.8 [facility] Comment on above: Performed By: #### C BC ####[facility] [address] [address]Dr. Laraantonio Wayne Monocytes/100 WBC (Bld) 10.6 % Normal 1.7-12.0 [facility] Comment on above: Performed By: #### C BC ####[facility] [address] [place], [place] [address]Dr. Lawrence Tone NEUT # 4.1 103/ul Normal 1.4-6.5 [facility] Comment on above: Performed By: #### C BC ####[facility] [address] [place], [place] [address]Dr. Laraantonio Wayne Neutrophils/100 WBC (Bld) 57.9 % Normal 43.0-75.0 [facility] Comment on above: Performed By: #### C BC ####[facility] [address] [place], [place] [address]Dr. Lawrence Wyane Platelet mean volume (Bld) [Entitic vol] 9.3 fL Critically low 9.5-13.5 [facility] Comment on above: Performed By: #### C BC ####[facility] [address] [place], [place] [address]Dr. Lawrence Wayne PLT 294 103/ul Normal 150-450 [facility] Comment on above: Performed By: #### C BC ####[facility] [address] [place], [place] [id number]. Lawrence Wayne RBC 4.73 106/ul Normal 4.20-5.40 [facility] Comment on above: Performed By: #### C BC ####[facility] [address] [place] [id number]. Lawrence Wayne WBC 7.1 103/ul Normal 4.0-11.0 [facility] Comment on above: Performed By: #### C BC ####[facility] [address] [id number]. Lawrence Wayne CULTURE BLOODon 02-06-2022 Microscopic examination of blood, culture Culture Observations: NO GROWTH AT 5 DAYS. Normal [facility] Comment on above: Performed By: #### B LDCX2 ####[facility] [address] [address]Dr. Lawrence Wayne Microscopic examination of blood, culture Culture Observations: NO GROWTH AT 5 DAYS. Normal [facility] Comment on above: Performed By: #### B LDCX1 ####[facility] [address] [place], [place] [address]Dr. Lawrence Wayne CULTURE URINEon 02-06-2022 CULTURE URINE Culture Observations : NO GROWTH. Normal [facility] Comment on above: Performed By: #### U RCX ####[facility] [address] [place], [place] [address]Dr. Lawrence Wayne Covid-19 PCR (CVDTB)on 01-14 SARS-CoV-2 (COVID-19) RNA EVELIA+probe Ql (Unsp spec) Not detected Normal NOT DETECTED [facility] Comment on above: Result Comment: When [...] for this test is supported by the Train Driver of Health and Human Service's declaration that [...] be used). Performed By: #### C VDTBH ####[facility] [address] [address]Dr. Lawrence Wayne LACTATE/LACTIC ACIDon 2021 Lactate [Moles/Vol] 1.1 mmol/L Normal 0.4-1.9 [facility] Comment on above: Performed By: #### A MY, CMP, LIPA #### [facility] [address] [address] [address] Lawrence Wayne LIPASEon 02-06-2022 Lipase [Catalytic activity/Vol] 107.0 U/L Normal 73.0-393.0 [facility] Comment on above: Performed By: #### M G, CMP, CMADM, BNP, ALIYAH, LIPA #### [facility] [address] [address] [address] Lawrence Wayne MAGNESIUMon 02-06-2022 Magnesium [Mass/Vol] 2.3 mg/dL Normal 1.8-2.4 [facility] Comment on above: Performed By: #### M G, CMP, CMADM, BNP, ALIYAH, LIPA ####[facility] [address] [address]Dr. Lawrence Wayne PROF 14(COMP METB)on 022 Albumin [Mass/Vol] 3.8 g/dL Normal 3.4-5.0 [facility] Comment on above: Performed By: #### M G, CMP, CMADM, BNP, ALIYAH, LIPA #### [facility] [address] [address] [address] Lawrence Wayne Albumin/Globulin [Mass ratio] 1.1 {ratio} Normal [facility] Comment on above: Performed By: #### M G, CMP, CMADM, BNP, ALIYAH, LIPA #### [facility] [address] [address] [address] Lawrence Wayne ALP [Catalytic activity/Vol] 98 U/L Normal 46-116 [facility] Comment on above: Performed By: #### M G, CMP, CMADM, BNP, ALIYAH, LIPA #### [facility] [address] [address] [address] Lawrence Wayne ALT [Catalytic activity/Vol] 26 U/L Normal 14-59 [facility] Comment on above: Performed By: #### M G, CMP, CMADM, BNP, ALIYAH, LIPA #### [facility] [address] [address] [address] Lawrence Wayne Anion gap [Moles/Vol] 12.9 mmol/L Normal [facility] Comment on above: Performed By: #### M G, CMP, CMADM, BNP, ALIYAH, LIPA #### [facility] [address] [place] [address] Dr. Lawrence Wayne AST [Catalytic activity/Vol] 25 U/L Normal 15-37 [facility] Comment on above: Performed By: #### M G, CMP, CMADM, BNP, ALIYAH, LIPA #### [facility] [address] [address] [address] Lawrence Wayne Bilirubin [Mass/Vol] 0.3 mg/dL Normal 0.2-1.0 [facility] Comment on above: Performed By: #### M G, CMP, CMADM, BNP, ALIYAH, LIPA #### [facility] [address] [address] [address] Lawrence Wayne Calcium [Mass/Vol] 9.1 mg/dL Normal 8.5-10.1 [facility] Comment on above: Performed By: #### M G, CMP, CMADM, BNP, ALIYAH, LIPA #### [facility] [address] [address] [address] Lawrence Wayne Chloride [Moles/Vol] 105 mmol/L Normal 98-107 [facility] Comment on above: Performed By: #### M G, CMP, CMADM, BNP, ALIYAH, LIPA #### [facility] [address] [address] [address] Lawrence Wayne CO2 [Moles/Vol] 24.0 mmol/L Normal 21.0-32.0 [facility] Comment on above: Performed By: #### M G, CMP, CMADM, BNP, ALIYAH, LIPA #### [facility] [address] [address] [address] Lawrence Wayne Creatinine [Mass/Vol] 0.90 mg/dL Normal 0.55-1.02 [facility] Comment on above: Performed By: #### M G, CMP, CMADM, BNP, ALIYAH, LIPA #### [facility] [address] [address] [address] Lawrence Wayne EGFR-AF FINNISH >60 Normal >=60 [facility] Comment on above: Performed By: #### M G, CMP, CMADM, BNP, ALIYAH, LIPA #### [facility] [address] [place] [address] Dr. Lawrence Wayne EGFR-NON AF FINNISH >60 Normal >=60 [facility] Comment on above: Performed By: #### M G, CMP, CMADM, BNP, ALIYAH, LIPA #### [facility] [address] [address] [address] Lawrence Wayne Globulin (S) [Mass/Vol] 3.5 g/dL Normal [facility] Comment on above: Performed By: #### M G, CMP, CMADM, BNP, ALIYAH, LIPA #### [facility] [address] [place] [address] Dr. Lawrence Wayne Glucose [Mass/Vol] 95 mg/dL Normal 74-106 [facility] Comment on above: Performed By: #### M G, CMP, CMADM, BNP, ALIYAH, LIPA #### [facility] [address] [address] [address] Lawrence Wayne Potassium [Moles/Vol] 3.9 mmol/L Normal 3.5-5.1 [facility] Comment on above: Performed By: #### M G, CMP, CMADM, BNP, ALIYAH, LIPA #### [facility] [address] [address] [address] Lawrence Wayne Protein [Mass/Vol] 7.3 g/dL Normal 6.4-8.2 [facility] Comment on above: Performed By: #### M G, CMP, CMADM, BNP, ALIYAH, LIPA #### [facility] [address] [place] [address] Dr. Lawrence Wayne Sodium [Moles/Vol] 138 mmol/L Normal 136-145 [facility] Comment on above: Performed By: #### M G, CMP, CMADM, BNP, ALIYAH, LIPA #### [facility] [address] [address] [address] Lawrence Wayne Urea nitrogen [Mass/Vol] 12.0 mg/dL Normal 7.0-18.0 [facility] Comment on above: Performed By: #### M G, CMP, CMADM, BNP, ALIYAH, LIPA #### [facility] [address] [place] [address] Dr. Lawrence Wayne Urea nitrogen/Creatinine [Mass ratio] 13.3 mg/mg Normal [facility] Comment on above: Performed By: #### M G, CMP, CMADM, BNP, ALIYAH, LIPA #### [facility] [address] [place] [address] Dr. Lawrence Wayne UA RANDOM W/MICROSCOPICon BACTERIA NONE SEEN Normal NONE SEEN [facility] Comment on above: Performed By: #### A MY, CMP, LIPA #### [facility] [address] [place] [address] Dr. Lawrence Wayne Bilirubin Ql (U) Negative Normal NEGATIVE [facility] Comment on above: Performed By: #### A MY, CMP, LIPA #### [facility] [address] [place] [address] Dr. Lawrence Wayne CAST NONE SEEN Normal NONE SEEN [facility] Comment on above: Performed By: #### A MY, CMP, LIPA #### [facility] [address] [place] [address] Dr. Lawrence Wayne Clarity (U) CLEAR Normal CLEAR [facility] Comment on above: Performed By: #### A MY, CMP, LIPA #### [facility] [address] [place], [place] [id number] Dr. Lawrence Wayne Color (U) LT. YELLOW Normal YELLOW [facility] Comment on above: Performed By: #### A MY, CMP, LIPA #### [facility] [address] [address] [address] Lawrence Wayne Crystals LM Nom (Urine sed) NONE SEEN Normal NONE SEEN [facility] Comment on above: Performed By: #### A MY, CMP, LIPA #### [facility] [address] [address] [address] Lawrence Wayne Epithelial cells LM Ql (Urine sed) FEW Abnormal NONE SEEN /RARE [facility] Comment on above: Performed By: #### A MY, CMP, LIPA #### [facility] [address] [place] [address] Dr. Lawrence Wayne Glucose Ql (U) Negative Normal NEGATIVE [facility] Comment on above: Performed By: #### A MY, CMP, LIPA #### [facility] [address] [place] [address] Dr. Lawrence Wayne Hemoglobin Ql (U) Negative Normal NEGATIVE [facility] Comment on above: Performed By: #### A MY, CMP, LIPA #### [facility] [address] [place] [address] Dr. Lawrence Wayne Ketones Ql (U) Negative Normal NEGATIVE [facility] Comment on above: Performed By: #### A MY, CMP, LIPA #### [facility] [address] [place] [address] Dr. Lawrence Wayne LEUKOCYTES SMALL Abnormal NEGATIVE [facility] Comment on above: Performed By: #### A MY, CMP, LIPA #### [facility] [address] [place] [address] Dr. Lawrence Wayne MUCOUS NONE SEEN Normal NONE SEEN [facility] Comment on above: Performed By: #### A MY, CMP, LIPA #### [facility] [address] [place] [address] Dr. Lawrence Wayne Nitrite Ql (U) Negative Normal NEGATIVE [facility] Comment on above: Performed By: #### A MY, CMP, LIPA #### [facility] [address] [address] [address] Lawrence Wayne pH (U) 6.0 [pH] Normal 5-9 [facility] Comment on above: Performed By: #### A MY, CMP, LIPA #### [facility] [address] [address] [address] Lawrence Wayne RBC NONE SEEN Abnormal 0-2 [facility] Comment on above: Performed By: #### A MY, CMP, LIPA #### [facility] [address] [address] [address] Lawrence Wayne SPEC GRAVITY <=1.005 Abnormal 1.005-<=1.025 [facility] Comment on above: Performed By: #### A MY, CMP, LIPA #### [facility] [address] [place] [address] Dr. Lawrence Wayne UA PROTEIN Negative Normal NEGATIVE/ TRACE [facility] Comment on above: Performed By: #### A MY, CMP, LIPA #### [facility] [address] [place] [address] Dr. Lawrence Wayne Urobilinogen Qn (U) 0.2 {Antonina'U}/dL Normal 0.2 - 1. 0 [facility] Comment on above: Performed By: #### A MY, CMP, LIPA #### [facility] [address] [place] [address] Dr. Lawrence Wayne WBC 0-2 Abnormal NONE SEEN [facility] Comment on above: Performed By: #### A MY, CMP, LIPA #### [facility] [address] [place] [address] Dr. Lawrence Wayne YEAST PRESENT Abnormal NONE SEEN [facility] Comment on above: Performed By: #### A MY, CMP, LIPA #### [facility] [address] [place] [address] Dr. Lawrence Wayne XR ABD FLAT UP_PA [...] by: TYRELL MOREJON Date: 2022-02-06 16:08 Normal [facility] CTA CHEST WO W CONon 022 CTA [...] by: MARK RIOS Date: 2021-08-29 12:20 Normal [facility] XR ABD FLAT_UPon 08-27-2021 XR ABD FLAT_UP [...] ENEDELIA FOLEY Date: 2021-08-27 16:08 Normal [facility] BNPon 08-21-2021 Natriuretic peptide B (Bld) [Mass/Vol] 51.0 pg/mL Normal <=900.0 [facility] Comment on above: Performed By: #### A MY, CMP, LIPA #### [facility] [address] [address] [address] Lawrence Wayne CBC AUTO DIFFon 08-21-2021 BASO # 0.0 103/ul Normal 0.0-0.1 [facility] Comment on above: Performed By: #### A MY, CMP, LIPA #### [facility] [address] [address] [address] Lawrence Wayne Basophils/100 WBC (Bld) 0.2 % Normal 0.2-2.0 [facility] Comment on above: Performed By: #### A MY, CMP, LIPA #### [facility] [address] [address] [address] Lawrence Wayne EO # 0.0 103/ul Normal 0.0-0.7 [facility] Comment on above: Performed By: #### A MY, CMP, LIPA #### [facility] [address] [address] [address] Lawrence Wayne Eosinophils/100 WBC (Bld) 0.1 % Critically low 0.9-7.0 [facility] Comment on above: Performed By: #### A MY, CMP, LIPA #### [facility] [address] [address] [address] Lawrence Wayne Erythrocyte distribution width (RBC) [Ratio] 13.3 % Normal 11.0-15.0 [facility] Comment on above: Performed By: #### A MY, CMP, LIPA #### [facility] [address] [place] [address] Dr. Lawrence Wayne Hematocrit (Bld) [Volume fraction] 45.7 % Normal 36.0-48.0 [facility] Comment on above: Performed By: #### A MY, CMP, LIPA #### [facility] [address] [place] [address] Dr. Lawrence Wayne Hemoglobin (Bld) [Mass/Vol] 15.3 g/dL Normal 12.0-16.0 [facility] Comment on above: Performed By: #### A MY, CMP, LIPA #### [facility] [address] [place] [address] Dr. Lawrence Wayne IG # 0.12 10e3/ul Critically high 0.00-0.03 [facility] Comment on above: Performed By: #### A MY, CMP, LIPA #### [facility] [address] [place] [address] Dr. Lawrence Wayne IG % 0.9 % Critically high 0.0-0.5 [facility] Comment on above: Performed By: #### A MY, CMP, LIPA #### [facility] [address] [place] [address] Dr. Lawrence Wayne LYMPH # 1.6 103/ul Normal 1.2-3.8 [facility] Comment on above: Performed By: #### A MY, CMP, LIPA #### [facility] [address] [place] [address] Dr. Lawernce Wayne Lymphocytes/100 WBC (Bld) 11.9 % Critically low 20.5-60.0 [facility] Comment on above: Performed By: #### A MY, CMP, LIPA #### [facility] [address] [place] [address] Dr. Lawrence Wayne MANUAL DIFF REQ NO Normal [facility] Comment on above: Performed By: #### A MY, CMP, LIPA #### [facility] [address] [place] [address] Dr. Lawrence Wayne MCH (RBC) [Entitic mass] 30.2 pg Normal 26.7-34.0 [facility] Comment on above: Performed By: #### A MY, CMP, LIPA #### [facility] [address] [address] [address] Lawrence Wayne MCHC (RBC) [Mass/Vol] 33.5 g/dL Normal 29.9-35.2 [facility] Comment on above: Performed By: #### A MY, CMP, LIPA #### [facility] [address] [address] [address] Lawrence Wayne MCV (RBC) [Entitic vol] 90.1 fL Normal 81.0-99.0 [facility] Comment on above: Performed By: #### A MY, CMP, LIPA #### [facility] [address] [address] [address] Lawrence Wayne MONO # 1.0 103/ul Critically high 0.3-0.8 [facility] Comment on above: Performed By: #### A MY, CMP, LIPA #### [facility] [address] [address] [address] Lawrence Wayne Monocytes/100 WBC (Bld) 7.2 % Normal 1.7-12.0 [facility] Comment on above: Performed By: #### A MY, CMP, LIPA #### [facility] [address] [address] [address] Lawrence Wayne NEUT # 11.0 103/ul Critically high 1.4-6.5 [facility] Comment on above: Performed By: #### A MY, CMP, LIPA #### [facility] [address] [address] [address] Lawrence Wayne Neutrophils/100 WBC (Bld) 79.7 % Critically high 43.0-75.0 [facility] Comment on above: Performed By: #### A MY, CMP, LIPA #### [facility] [address] [address] [address] Lawrence Wayne Platelet mean volume (Bld) [Entitic vol] 9.1 fL Critically low 9.5-13.5 [facility] Comment on above: Performed By: #### A MY, CMP, LIPA #### [facility] [address] [place] [address] Dr. Lawrence Wayne PLT 434 103/ul Normal 150-450 [facility] Comment on above: Performed By: #### A MY, CMP, LIPA #### [facility] [address] [place] [address] Dr. Lawrence Wayne RBC 5.07 106/ul Normal 4.20-5.40 [facility] Comment on above: Performed By: #### A MY, CMP, LIPA #### [facility] [address] [place] [address] Dr. Lawrence Wayne WBC 13.8 103/ul Critically high 4.0-11.0 [facility] Comment on above: Performed By: #### A MY, CMP, LIPA #### [facility] [address] [place] [address] Dr. Lawrence Wayne PROF 14(COMP METB)on 022 Albumin [Mass/Vol] 3.9 g/dL Normal 3.5-5.0 [facility] Comment on above: Performed By: #### A MY, CMP, LIPA #### [facility] [address] [place] [address] Dr. Lawrence Wayne Albumin/Globulin [Mass ratio] 1.0 {ratio} Normal [facility] Comment on above: Performed By: #### A MY, CMP, LIPA #### [facility] [address] [place] [address] Dr. Lawrence Wayne ALP [Catalytic activity/Vol] 104 U/L Normal 38-126 [facility] Comment on above: Performed By: #### A MY, CMP, LIPA #### [facility] [address] [place] [address] Dr. Lawrence Wayne ALT [Catalytic activity/Vol] 20 U/L Normal 9-52 [facility] Comment on above: Performed By: #### A MY, CMP, LIPA #### [facility] [address] [address] [address] Lawrence Wayne Anion gap [Moles/Vol] 15.5 mmol/L Normal [facility] Comment on above: Performed By: #### A MY, CMP, LIPA #### [facility] [address] [address] [address] Lawrence Wayne AST [Catalytic activity/Vol] 13 U/L Critically low 14-36 [facility] Comment on above: Performed By: #### A MY, CMP, LIPA #### [facility] [address] [address] [address] Lawrence Wayne Bilirubin [Mass/Vol] 0.4 mg/dL Normal 0.2-1.3 [facility] Comment on above: Performed By: #### A MY, CMP, LIPA #### [facility] [address] [address] [address] Lawrence Wayne Calcium [Mass/Vol] 9.4 mg/dL Normal 8.4-10.2 [facility] Comment on above: Performed By: #### A MY, CMP, LIPA #### [facility] [address] [address] [address] Lawrence Wayne Chloride [Moles/Vol] 100 mmol/L Normal 98-107 [facility] Comment on above: Performed By: #### A MY, CMP, LIPA #### [facility] [address] [address] [address] Lawrence Wayne CO2 [Moles/Vol] 23.9 mmol/L Normal 22.0-30.0 [facility] Comment on above: Performed By: #### A MY, CMP, LIPA #### [facility] [address] [address] [address] Lawrence Wayne Creatinine [Mass/Vol] 0.97 mg/dL Normal 0.52-1.04 [facility] Comment on above: Performed By: #### A MY, CMP, LIPA #### [facility] [address] [address] [address] Lawrence Wayne EGFR-AF FINNISH >60 Normal >=60 [facility] Comment on above: Performed By: #### A MY, CMP, LIPA #### [facility] [address] [place] [address] Dr. Lawrence Wayne EGFR-NON AF FINNISH 58 mL/min/1.73m2 Critically low >=60 [facility] Comment on above: Performed By: #### A MY, CMP, LIPA #### [facility] [address] [place] [address] Dr. Lawrence Wayne Globulin (S) [Mass/Vol] 3.8 g/dL Normal [facility] Comment on above: Performed By: #### A MY, CMP, LIPA #### [facility] [address] [place] [address] Dr. Lawrence Wayne Glucose [Mass/Vol] 169 mg/dL Critically high 74-106 [facility] Comment on above: Performed By: #### A MY, CMP, LIPA #### [facility] [address] [place] [address] Dr. Lawrence Wayne Potassium [Moles/Vol] 3.4 mmol/L Normal 3.4-5.0 [facility] Comment on above: Performed By: #### A MY, CMP, LIPA #### [facility] [address] [place] [address] Dr. Lawrence Wayne Protein [Mass/Vol] 7.7 g/dL Normal 6.1-8.2 [facility] Comment on above: Performed By: #### A MY, CMP, LIPA #### [facility] [address] [address] [address] Lawrence Wayne Sodium [Moles/Vol] 136 mmol/L Critically low 137-145 [facility] Comment on above: Performed By: #### A MY, CMP, LIPA #### [facility] [address] [place] [address] Dr. Lawrence Wayne Urea nitrogen [Mass/Vol] 16.0 mg/dL Normal 7.0-17.0 [facility] Comment on above: Performed By: #### A MY, CMP, LIPA #### [facility] [address] [place] [address] Dr. Lawrence Wayne Urea nitrogen/Creatinine [Mass ratio] 16.5 mg/mg Normal [facility] Comment on above: Performed By: #### A MY, CMP, LIPA #### [facility] [address] [address] [address] Lawrence Wayne AMIRA by IFAon 08-12-2021 Antinuclear Antibodies, IFA Positive Abnormal [facility] Comment on above: Result Comment: Nega tive <1:80 Borderline 1:80 Positive >1:80 Performed By: #### A NAIFA ####[facility] [address] [address]Dr. Lawrence Wayne Centriole Pattern Normal [facility] Comment on above: Performed By: #### A NAIFA ####[facility] [address] [address]Dr. Lawrence Wayne Centromere Pattern Normal [facility] Comment on above: Performed By: #### A NAIFA ####[facility] [address] [address]Dr. Lawrence Wayne Homogeneous Pattern Normal [facility] Comment on above: Performed By: #### A NAIFA ####[facility] [address] [address]Dr. Lawrence Wayne Midbody Pattern Normal [facility] Comment on above: Performed By: #### A NAIFA ####[facility] [address] [address]Dr. Lawrence Wayne Note: Comment Normal [facility] Comment on above: Result Comment: For [...] titers Nucleosomes, Histones Drug-induced SLE Speckled Sm, [employer]OT[employer]ACHINE [employer]PERATOR, SCL-70, SLE,MCTD,PSS (diffuse form), SS-A/SS-B Sjogrens Nucleolar SCL-70, PM-1/SCL High titers Scleroderma, PM/DM Centromere Centromere PSS (limited form) w/Crest syndrome variable Nuclear Dot [id number] Primary Biliary Cirrhosis Nuclear GP210, Primary Biliary Cirrhosis Membrane hamilton A,B,C Performed By: #### A NAIFA ####[facility] [address] [address]Dr. Lawrence Wayne Nuclear Dot Pattern Normal [facility] Comment on above: Performed By: #### A NAIFA ####[facility] [address] [address]Dr. Lawrence Wayne Nuclear Membrane Pattern Normal [facility] Comment on above: Performed By: #### A NAIFA ####[facility] [address] [place] [address]Dr. Lawrence Wayne Nucleolar Pattern Normal [facility] Comment on above: Performed By: #### A NAIFA ####[facility] [id number] [place] [address]Dr. Lawrence Wayne PCNA Pattern Normal [facility] Comment on above: Performed By: #### A NAIFA ####[facility] [id number] [place] [address]Dr. Lawrence Wayne Speckled Pattern 1:160 Critically high [facility] Comment on above: Result Comment: ICAP nomenclature: AC-2,4,5,29 Performed By: #### A NAIFA ####[facility] [id number] [place] [address]Dr. Lawrence Wayne Spindle Apparatus Pattern Normal [facility] Comment on above: Performed By: #### A NAIFA ####[facility] [id number] [place] [address]Dr. Lawrence Wayne AMIRA DIRECTon 08-11-2021 AMIRA Direct Positive Abnormal Negative [facility] Comment on above: Performed By: #### A NAD ####[facility] [id number] [place] [address]Dr. Lawrence Wayne SLE PROFILE Aon 08-11-2021 Anti-DNA (DS) Ab Qn 1 IU/mL Normal 0-9 [facility] Comment on above: Result Comment: Nega tive <5 Equivocal 5 - 9 Positive >9 Performed By: #### A MY, CMP, LIPA #### [facility] [address] [place] [address] [address] Lawrence Wayne Antichromatin Antibodies <0.2 Normal 0.0-0.9 [facility] Comment on above: Performed By: #### A MY, CMP, LIPA #### [facility] [address] [place] [address] Dr. Lawrence Wayne RA Latex Turbid. <10.0 Normal <14.0 [facility] Comment on above: Performed By: #### A MY, CMP, LIPA #### [facility] [address] [place] [address] Dr. Lawrence Wayne ROTARY VENEER MACHINE OPERATOR Antibodies <0.2 Normal 0.0-0.9 [facility] Comment on above: Performed By: #### A MY, CMP, LIPA #### [facility] [address] [place] [address] Dr. Lawrence Wayne Sjogren's Anti-SS-A 1.4 AI Critically high 0.0-0.9 [facility] Comment on above: Performed By: #### A MY, CMP, LIPA #### [facility] [address] [place] [address] Dr. Lawrence Wayne Sjogrvidal's Anti-SS-B <0.2 Normal 0.0-0.9 [facility] Comment on above: Performed By: #### A MY, CMP, LIPA #### [facility] [address] [place] [address] Dr. Lawrence Wayne Ramos Antibodies <0.2 Normal 0.0-0.9 [facility] Comment on above: Performed By: #### A MY, CMP, LIPA #### [facility] [address] [place] [address] Dr. Lawrence Wayne ANTISTREPTOLYSIN O AB (ASO)o n 08-10-2021 Antistreptolysin O Ab 55.6 IU/mL Normal 0.0-200.0 [facility] Comment on above: Performed By: #### A MY, CMP, LIPA #### [facility] [address] [place] [address] Dr. Lawrence Wayne C3 and C4 COMPLEMENTon 08-10 Complement C3, Serum 124 mg/dL Normal 82-167 [facility] Comment on above: Performed By: #### A MY, CMP, LIPA #### [facility] [address] [place] [address] Dr. Lawrence Wayne Complement C4, Serum 12 mg/dL Normal 12-38 [facility] Comment on above: Performed By: #### A MY, CMP, LIPA #### [facility] [address] [place] [address] Dr. Lawrence Wayne CBC AUTO DIFFon 08-09-2021 BASO # 0.1 103/ul Normal 0.0-0.1 [facility] Comment on above: Performed By: #### A MY, CMP, LIPA #### [facility] [address] [place] [address] Dr. Lawrence Wayne Basophils/100 WBC (Bld) 0.6 % Normal 0.2-2.0 [facility] Comment on above: Performed By: #### A MY, CMP, LIPA #### [facility] [address] [place] [address] Dr. Lawrence Wayne EO # 0.0 103/ul Normal 0.0-0.7 [facility] Comment on above: Performed By: #### A MY, CMP, LIPA #### [facility] [address] [place] [address] Dr. Lawrence Wayne Eosinophils/100 WBC (Bld) 0.2 % Critically low 0.9-7.0 [facility] Comment on above: Performed By: #### A MY, CMP, LIPA #### [facility] [address] [place] [address] Dr. Lawrence Wayne Erythrocyte distribution width (RBC) [Ratio] 13.4 % Normal 11.0-15.0 [facility] Comment on above: Performed By: #### A MY, CMP, LIPA #### [facility] [address] [place] [address] Dr. Lawrence Wayne Hematocrit (Bld) [Volume fraction] 43.6 % Normal 36.0-48.0 [facility] Comment on above: Performed By: #### A MY, CMP, LIPA #### [facility] [address] [place] [address] Dr. Lawrence Wayne Hemoglobin (Bld) [Mass/Vol] 14.2 g/dL Normal 12.0-16.0 [facility] Comment on above: Performed By: #### A MY, CMP, LIPA #### [facility] [address] [place] [address] Dr. Lawrence Wayne IG # 0.03 10e3/ul Normal 0.00-0.03 [facility] Comment on above: Performed By: #### A MY, CMP, LIPA #### [facility] [address] [place] [address] Dr. Lawrence Wayne IG % 0.3 % Normal 0.0-0.5 [facility] Comment on above: Performed By: #### A MY, CMP, LIPA #### [facility] [address] [place] [address] Dr. Lawrence Wayne LYMPH # 1.1 103/ul Critically low 1.2-3.8 [facility] Comment on above: Performed By: #### A MY, CMP, LIPA #### [facility] [address] [place] [address] Dr. Lawrence Wayne Lymphocytes/100 WBC (Bld) 12.7 % Critically low 20.5-60.0 [facility] Comment on above: Performed By: #### A MY, CMP, LIPA #### [facility] [address] [place] [address] Dr. Lawrence Wayne MANUAL DIFF REQ NO Normal [place] Comment on above: Performed By: #### A MY, CMP, LIPA #### [facility] [address] [place] [address] Dr. Lawrence Wayne MCH (RBC) [Entitic mass] 30.3 pg Normal 26.7-34.0 [facility] Comment on above: Performed By: #### A MY, CMP, LIPA #### [facility] [address] [place] [address] Dr. Lawrence Wayne MCHC (RBC) [Mass/Vol] 32.6 g/dL Normal 29.9-35.2 [facility] Comment on above: Performed By: #### A MY, CMP, LIPA #### [facility] [address] [place] [address] [address] Lawrence Wayne MCV (RBC) [Entitic vol] 93.0 fL Normal 81.0-99.0 [facility] Comment on above: Performed By: #### A MY, CMP, LIPA #### [facility] [address] [place] [address] Dr. Lawrence Wayne MONO # 0.3 103/ul Normal 0.3-0.8 [facility] Comment on above: Performed By: #### A MY, CMP, LIPA #### [facility] [address] [place] [address] Dr. Lawrence Wayne Monocytes/100 WBC (Bld) 3.7 % Normal 1.7-12.0 [facility] Comment on above: Performed By: #### A MY, CMP, LIPA #### [facility] [address] [place] [address] Dr. Lawrence Wayne NEUT # 7.3 103/ul Critically high 1.4-6.5 [facility] Comment on above: Performed By: #### A MY, CMP, LIPA #### [facility] [address] [place] [address] Dr. Lawrence Wayne Neutrophils/100 WBC (Bld) 82.5 % Critically high 43.0-75.0 [facility] Comment on above: Performed By: #### A MY, CMP, LIPA #### [facility] [address] [place] [address] Dr. Lawrence Wayne Platelet mean volume (Bld) [Entitic vol] 9.6 fL Normal 9.5-13.5 [facility] Comment on above: Performed By: #### A MY, CMP, LIPA #### [facility] [address] [place] [address] Dr. Lawrence Wayne PLT 322 103/ul Normal 150-450 [facility] Comment on above: Performed By: #### A MY, CMP, LIPA #### [facility] [address] [address] [address] Lawrence Wayne RBC 4.69 106/ul Normal 4.20-5.40 [facility] Comment on above: Performed By: #### A MY, CMP, LIPA #### [facility] [address] [address] [address] Lawrence Wayne WBC 8.8 103/ul Normal 4.0-11.0 [facility] Comment on above: Performed By: #### A MY, CMP, LIPA #### [facility] [address] [address] [address] Lawrence Wayne CRPon 08-09-2021 CRP [Mass/Vol] mg/L Normal <=1.0 [facility] Comment on above: Performed By: #### A MY, CMP, LIPA #### [facility] [address] [place] [address] [address] Lawrence Wayne IRONon 08-09-2021 Iron [Mass/Vol] 83.0 ug/dL Normal 37.0-170.0 [facility] Comment on above: Performed By: #### A MY, CMP, LIPA #### [facility] [address] [place] [address] [address] Lawrence Wayne SED RATE WESTERGRENon 2021 SED RATE 16 mm/hr Normal <=30 [facility] Comment on above: Performed By: #### S EDR ####[facility] [id number] [place] [address]Dr. Lawrence Wayne URIC ACID SERUMon 08-09-2021 Urate [Mass/Vol] 3.4 mg/dL Normal 2.5-6.2 [facility] Comment on above: Performed By: #### A MY, CMP, LIPA #### [facility] [address] [place] [address] [address] Lawrence Wayne XR CSPINE MIN 4 [...] by: TYRELL MOREJON Date: 2021-08-09 14:37 Normal [facility] H PYLORI ANTIBODY IGGon 06-16 H. PYLORI IGG ABS 0.13 Index Value Normal 0.00-0.79 [facility] Comment on above: Result Comment: Nega tive <0.80 Equivocal 0.80 - 0.89 Positive >0.89 Performed By: #### A MY, CMP, LIPA #### [facility] [address] [place] [address] Dr. Lawrence Wayne AMYLASEon 07-11-2021 Amylase [Catalytic activity/Vol] 100 U/L Normal 31-110 [facility] Comment on above: Performed By: #### A MY, CMP, LIPA #### [facility] [address] [place] [address] Dr. Lawrence Wayne CBC AUTO DIFFon 07-11-2021 BASO # 0.1 103/ul Normal 0.0-0.1 [facility] Comment on above: Performed By: #### A MY, CMP, LIPA #### [facility] [address] [place] [address] Dr. Lawrence Wayne Basophils/100 WBC (Bld) 0.7 % Normal 0.2-2.0 [facility] Comment on above: Performed By: #### A MY, CMP, LIPA #### [facility] [address] [place] [address] Dr. Lawrence Wayne EO # 0.1 103/ul Normal 0.0-0.7 [facility] Comment on above: Performed By: #### A MY, CMP, LIPA #### [facility] [address] [place] [address] Dr. Lawrence Wayne Eosinophils/100 WBC (Bld) 1.2 % Normal 0.9-7.0 [facility] Comment on above: Performed By: #### A MY, CMP, LIPA #### [facility] [address] [place] [address] Dr. Lawrence Wayne Erythrocyte distribution width (RBC) [Ratio] 13.9 % Normal 11.0-15.0 [facility] Comment on above: Performed By: #### A MY, CMP, LIPA #### [facility] [address] [place] [address] Dr. Lawrence Wayne Hematocrit (Bld) [Volume fraction] 45.9 % Normal 36.0-48.0 [facility] Comment on above: Performed By: #### A MY, CMP, LIPA #### [facility] [address] [place] [address] Dr. Lawrence Wayne Hemoglobin (Bld) [Mass/Vol] 14.9 g/dL Normal 12.0-16.0 [facility] Comment on above: Performed By: #### A MY, CMP, LIPA #### [facility] [address] [place] [address] Dr. Lawrence Wayne IG # 0.03 10e3/ul Normal 0.00-0.03 [facility] Comment on above: Performed By: #### A MY, CMP, LIPA #### [facility] [address] [place] [address] Dr. Lawrence Wayne IG % 0.4 % Normal 0.0-0.5 [facility] Comment on above: Performed By: #### A MY, CMP, LIPA #### [facility] [address] [place] [address] Dr. Lawrence Wayne LYMPH # 2.2 103/ul Normal 1.2-3.8 [facility] Comment on above: Performed By: #### A MY, CMP, LIPA #### [facility] [address] [place] [address] Dr. Lawrence Wayne Lymphocytes/100 WBC (Bld) 29.0 % Normal 20.5-60.0 [facility] Comment on above: Performed By: #### A MY, CMP, LIPA #### [facility] [address] [address] [address] Lawrence Wayne MANUAL DIFF REQ NO Normal [facility] Comment on above: Performed By: #### A MY, CMP, LIPA #### [facility] [address] [place] [address] Dr. Lawrence Wayne MCH (RBC) [Entitic mass] 29.8 pg Normal 26.7-34.0 [facility] Comment on above: Performed By: #### A MY, CMP, LIPA #### [facility] [address] [place] [address] Dr. Lawrence Wayne MCHC (RBC) [Mass/Vol] 32.5 g/dL Normal 29.9-35.2 [facility] Comment on above: Performed By: #### A MY, CMP, LIPA #### [facility] [address] [place] [address] Dr. Lawrence Wayne MCV (RBC) [Entitic vol] 91.8 fL Normal 81.0-99.0 [facility] Comment on above: Performed By: #### A MY, CMP, LIPA #### [facility] [address] [place] [address] Dr. Lawrence Wayne MONO # 0.9 103/ul Critically high 0.3-0.8 [facility] Comment on above: Performed By: #### A MY, CMP, LIPA #### [facility] [address] [place] [address] Dr. Lawrence Wayne Monocytes/100 WBC (Bld) 11.7 % Normal 1.7-12.0 [facility] Comment on above: Performed By: #### A MY, CMP, LIPA #### [facility] [address] [place] [address] Dr. Lawrence Wayne NEUT # 4.3 103/ul Normal 1.4-6.5 [facility] Comment on above: Performed By: #### A MY, CMP, LIPA #### [facility] [address] [place] [address] Dr. Lawrence Wayne Neutrophils/100 WBC (Bld) 57.0 % Normal 43.0-75.0 [facility] Comment on above: Performed By: #### A MY, CMP, LIPA #### [facility] [address] [place] [address] Dr. Lawrence Wayne Platelet mean volume (Bld) [Entitic vol] 8.7 fL Critically low 9.5-13.5 [facility] Comment on above: Performed By: #### A MY, CMP, LIPA #### [facility] [address] [place] [address] Dr. Lawrence Wayne PLT 351 103/ul Normal 150-450 [facility] Comment on above: Performed By: #### A MY, CMP, LIPA #### [facility] [address] [place] [address] Dr. Lawrence Wayne RBC 5.00 106/ul Normal 4.20-5.40 [facility] Comment on above: Performed By: #### A MY, CMP, LIPA #### [facility] [address] [place] [address] Dr. Lawrence Wayne WBC 7.6 103/ul Normal 4.0-11.0 [facility] Comment on above: Performed By: #### A MY, CMP, LIPA #### [facility] [address] [place] [address] Dr. Lawrence Wayne LIPASEon 07-11-2021 Lipase [Catalytic activity/Vol] 93.0 U/L Normal 23.0-300.0 [facility] Comment on above: Performed By: #### A MY, CMP, LIPA #### [facility] [address] [place] [address] Dr. Lawrence Wayne PROF 14(COMP METB)on 022 Albumin [Mass/Vol] 4.1 g/dL Normal 3.5-5.0 [facility] Comment on above: Performed By: #### A MY, CMP, LIPA #### [facility] [address] [place] [address] Dr. Lawrence Wayne Albumin/Globulin [Mass ratio] 1.1 {ratio} Normal [facility] Comment on above: Performed By: #### A MY, CMP, LIPA #### [facility] [address] [place] [address] Dr. Lawrence Wayne ALP [Catalytic activity/Vol] 101 U/L Normal 38-126 [facility] Comment on above: Performed By: #### A MY, CMP, LIPA #### [facility] [address] [place] [address] Dr. Lawrence Wayne ALT [Catalytic activity/Vol] 38 U/L Normal 9-52 [facility] Comment on above: Performed By: #### A MY, CMP, LIPA #### [facility] [address] [place] [address] Dr. Lawrence Wayne Anion gap [Moles/Vol] 12.5 mmol/L Normal [facility] Comment on above: Performed By: #### A MY, CMP, LIPA #### [facility] [address] [place] [address] Dr. Lawrence Wayne AST [Catalytic activity/Vol] 25 U/L Normal 14-36 [facility] Comment on above: Performed By: #### A MY, CMP, LIPA #### [facility] [address] [place] [address] Dr. Lawrence Wayne Bilirubin [Mass/Vol] 0.8 mg/dL Normal 0.2-1.3 [facility] Comment on above: Performed By: #### A MY, CMP, LIPA #### [facility] [address] [place] [address] Dr. Lawrence Wayne Calcium [Mass/Vol] 9.9 mg/dL Normal 8.4-10.2 [facility] Comment on above: Performed By: #### A MY, CMP, LIPA #### [facility] [address] [place] [address] Dr. Lawrence Wayne Chloride [Moles/Vol] 98 mmol/L Normal 98-107 [facility] Comment on above: Performed By: #### A MY, CMP, LIPA #### [facility] [address] [place] [address] Dr. Lawrence Wayne CO2 [Moles/Vol] 26.6 mmol/L Normal 22.0-30.0 [facility] Comment on above: Performed By: #### A MY, CMP, LIPA #### [facility] [address] [address] [address] Lawrence Wayne Creatinine [Mass/Vol] 1.12 mg/dL Critically high 0.52-1.04 [facility] Comment on above: Performed By: #### A MY, CMP, LIPA #### [facility] [address] [address] [address] Lawrence Wayne EGFR-AF FINNISH 59 mL/min/1.73m2 Critically low >=60 [facility] Comment on above: Performed By: #### A MY, CMP, LIPA #### [facility] [address] [place] [address] Dr. Lawrence Wayne EGFR-NON AF FINNISH 49 mL/min/1.73m2 Critically low >=60 [facility] Comment on above: Performed By: #### A MY, CMP, LIPA #### [facility] [address] [address] [address] Lawrence Wayne Globulin (S) [Mass/Vol] 3.7 g/dL Normal [facility] Comment on above: Performed By: #### A MY, CMP, LIPA #### [facility] [address] [place] [address] Dr. Lawrence Wayne Glucose [Mass/Vol] 117 mg/dL Critically high 74-106 [facility] Comment on above: Performed By: #### A MY, CMP, LIPA #### [facility] [address] [address] [address] Lawrence Wayne Potassium [Moles/Vol] 4.1 mmol/L Normal 3.4-5.0 [facility] Comment on above: Performed By: #### A MY, CMP, LIPA #### [facility] [address] [address] [address] Lawrence Wayne Protein [Mass/Vol] 7.8 g/dL Normal 6.1-8.2 [facility] Comment on above: Performed By: #### A MY, CMP, LIPA #### [facility] [address] [address] [address] Lawrence Wayne Sodium [Moles/Vol] 133 mmol/L Critically low 137-145 [facility] Comment on above: Performed By: #### A MY, CMP, LIPA #### [facility] [address] [address] [address] Lawrence Wayne Urea nitrogen [Mass/Vol] 9.0 mg/dL Normal 7.0-17.0 [facility] Comment on above: Performed By: #### A MY, CMP, LIPA #### [facility] [address] [address] [address] Lawrence Wayne Urea nitrogen/Creatinine [Mass ratio] 8.0 mg/mg Normal [facility] Comment on above: Performed By: #### A MY, CMP, LIPA #### [facility] [address] [address] [address] Lawrence Wayne Vital Signs Date Time Vital Sign Value Performing Clinician Siobhan escalante 01-23-2025 09:14040 Body height 160.02 cm Anitha Mcgregor MD Work Phone: [facility] 01-23-2025 09:14040 Body mass index (BMI) [Ratio] 24.4 kg/m2 Anitha Mcgregor MD Work Phone: [facility] 01-23-2025 09:14040 Body weight 62.59 kg Anitha Mcgregor MD Work Phone: [facility] 01-23-2025 09:14040 Diastolic blood pressure 64 mm[Hg] Anitha Mcgregor MD Work Phone: [facility] 01-23-2025 09:14040 Heart rate 65 /min Anitha Mcgregor MD Work Phone: [facility] 01-23-2025 09:140400 Respiratory rate 6 /min Anitha Mcgregor MD Work Phone: [facility] 01-23-2025 09:14-0400 SaO2% (BldA) [Mass fraction] 98 % Anitha Mcgregor MD Work Phone: [facility] 01-23-2025 09:14-0400 Systolic blood pressure 102 mm[Hg] Anitha Mcgregor MD Work Phone: [facility] 08-15-2024 10:22-0500 Body height 160 cm Divya Dudley MD Work Phone: [facility] 08-15-2024 10:22-0500 Body mass index (BMI) [Ratio] 23.56 kg/m2 Divya Dudley MD Work Phone: [facility] 08-15-2024 10:22-0500 Body weight 60.33 kg Divya Dudley MD Work Phone: [facility] 08-15-2024 10:22-0500 Diastolic blood pressure 80 mm[Hg] Divya Dudley MD Work Phone: [facility] 08-15-2024 10:22-0500 Heart rate 73 /min Divya Dudley MD Work Phone: [facility] 08-15-2024 10:22-0500 Systolic blood pressure 124 mm[Hg] Divya Dudley MD Work Phone: [facility] 07-20-2024 14:12-0500 Body mass index (BMI) [Ratio] 23.6 kg/m2 Miguel Ángel Rosales DO Work Phone: [facility] 07-20-2024 14:12-0500 Body weight 60.42 kg Ojophlashaun Rosales DO Work Phone: [facility] 07-20-2024 14:12-0500 Diastolic blood pressure 84 mm[Hg] Miguel Ángel Rosales DO Work Phone: [facility] 07-20-2024 14:12-0500 Heart rate 72 /min Ojopher Connie DO Work Phone: [facility] 07-20-2024 14:12-0500 SaO2% (BldA) [Mass fraction] 99 % Miguel Ángel Rosales DO Work Phone: [facility] 07-20-2024 14:12-0500 Systolic blood pressure 132 mm[Hg] Miguel Ángel Rosales DO Work Phone: [facility] 06-20-2024 10:20-0500 Body height 160 cm Divya Dudley MD Work Phone: [facility] 06-20-2024 10:20-0500 Diastolic blood pressure 71 mm[Hg] Divya Dudley MD Work Phone: [facility] 06-20-2024 10:20-0500 Heart rate 64 /min Divya Dudley MD Work Phone: [facility] 06-20-2024 10:20-0500 Systolic blood pressure 110 mm[Hg] Divya Dudley MD Work Phone: 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 [facility] [place] Work Phone: Start: 08-15-2024 End: 08-15-2024 Bamboo flowsheet Divya Dudley MD Work Phone: [facility] Start: 08-15-2024 End: 08-15-2024 Bamboo flowsheet Divya Dudley MD Work Phone: [facility] Start: 08-15-2024 End: 08-15-2024 Office outpatient visit 25 minutes Divya Dudley MD Work Phone: [facility] Comment on above: Oral ulcer (Primary Dx) Start: 08-15-2024 End: 08-15-2024 ambulatory DIVYA DUDLEY Not Available Start: 08-09-2024 End: 08-09-2024 Telephone encounter Divya Dudley MD Work Phone: [facility] Comment on above: Mouth Lesions Start: 07-20-2024 End: 07-20-2024 Office outpatient visit 25 minutes Christopher Connie DO Work Phone: [facility] Comment on above: Memory impairment (P rimary Dx); Anxiety Start: 07-20-2024 End: 07-20-2024 ambulatory CHRISTOPHER CONNIE Not Available Start: 07-20-2024 End: 07-20-2024 Bamboo flowsheet Ojopher Connie DO Work Phone: [facility] Start: 07-20-2024 End: 07-20-2024 Bamboo flowsheet Miguel Ángel Rosales DO Work Phone: [facility] Start: 06-20-2024 End: 06-20-2024 Bamboo flowsheet Divya Dudley MD Work Phone: [facility] Start: 06-20-2024 End: 06-20-2024 Bamboo flowsheet Divya Dudley MD Work Phone: [facility] Start: 06-20-2024 End: 06-20-2024 Office outpatient new 45 minutes Divya Dudley MD Work Phone: [facility] Comment on above: Left facial pain (Pr imary Dx) Start: 06-20-2024 End: 06-20-2024 ambulatory DIVYA DUDLEY Not Available Start: 02-05-2024 End: 02-05-2024 Refill Cindy Phan DO Work Phone: [facility] Comment on above: Age-related nuclear cataract of both eyes Start: 02-01-2024 End: 02-01-2024 Refill Cindy Phan DO Work Phone: [facility] Comment on above: Age-related nuclear cataract of both eyes Start: 01-18-2024 End: 01-18-2024 ambulatory Cindy Phan Facility:[facility] [place] Start: 01-11-2024 End: 01-11-2024 ambulatory CIDNY PHAN Not Available Start: 11-16-2023 End: 11-16-2023 ambulatory MIGUEL ÁNGEL ROSALES Not Available Start: 11-02-2023 End: 11-02-2023 ambulatory JASVIR SMILEY Not Available Start: 10-08-2023 End: 10-08-2023 ambulatory MIGUEL ÁNGEL ROSALES Not Available Start: 07-27-2023 Bamboo flowsheet Cindy Naik hler DO Work Phone: [facility] Start: 07-27-2023 Bamboo flowsheet Cindy Brennan Za hler DO Work Phone: [facility] Start: 07-01-2022 End: 07-02-[address] ANITHA MCGREGOR Facility: Start: 06-23-2022 End: 06-23-2022 ambulatory ANITHA MCGREGOR Facility:[facility] Start: 06-23-2022 End: 06-23-2022 ambulatory Benjamin BILL-C Work Phone: [facility] Comment on above: Fibromyalgia (Primar y Dx); Cervicalgia Start: 06-23-2022 End: 06-23-2022 Telemedicine consultation with patient Benjamin Limright PA-C Work Phone: [facility] Start: 06-17-2022 End: 01-03-[address] JULIANN ROGER Facility:[facility] Start: 06-03-2022 End: 06-03-2022 ambulatory Bentley Bragg Other [facility] [employer] Other Start: 06-03-2022 Chart abstracting Savagek (Historical) N eurology Start: 06-03-2022 Telephone encounter 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 Start: 05-27-2022 End: 05-27-2022 ambulatory Prasad Isabel Other [facility] [employer] Other Start: 05-27-2022 Office outpatient ne w 30 minutes Prasad Isabel [facility] Neurosurgery Start: 05-20-2022 End: 05-21-2022 ambulatory [...] End: 07-06-2018 Patient encounter procedure Kings Thomson Facility:[facility] Procedures Date Procedure Procedure Detail Performing Clinician [...] 01/23/2025 9:40 AM EDT Office Visit AMIRA ZAPATA [address] [place] [phone] Екатерина Chacon NP [address] [place] [phone] AMIRA ZAPATA Start: 09-20-2024 End: 09-20-2024 Patient encounter procedure 09/20/2024 1:30 PM EDT Office Visit [facility] [address] [place] [address] Divya Dudley MD [address] [place] [address] [facility] Start: 08-15-2024 End: 08-15-2024 Patient encounter procedure 08/15/2024 10:30 AM EST Office Visit [facility] [address] [facility] [place] [phone] Divya Dudley MD [address] [place] [address] Arrived [facility] Comment on above: Arrived Start: 07-20-2024 End: 07-20-2024 Patient encounter procedure 07/20/2024 2:15 PM EST Office Visit AMIRA ZAPATA [address] [place] [phone] Miguel Ángel Rosales DO [address] [place] [address] Arrived AMIRA ZAPATA Comment on above: Arrived Start: 06-20-2024 End: 06-20-2024 Patient encounter procedure 06/20/2024 10:30 AM EST Office Visit [facility] [address] [place] [phone] Divya Dudley MD [address] [facility] [address] [place] [address] Arrived [facility] Comment on above: Arrived Start: 02-14-2024 Influenza vaccination Influenza Vacc ine (#1) [facility] Start: 02-09-2024 End: 02-09-2024 Patient encounter procedure 02/09/2024 7:30 AM EDT Procedure Visit [facility] Cindy Phan DO [address] [place] [address] [facility] Start: 01-11-2024 End: 01-11-2024 Patient encounter procedure 01/11/2024 1:15 PM EDT Office Visit [facility] [address] [place] [phone] Cindy Phan DO [address] [place] [address] [facility] Start: 07-27-2023 End: 07-27-2023 Patient encounter procedure 07/27/2023 2:15 PM EST Office Visit [facility] [address] [place] [phone] Cindy Phan DO [address] [place] [address] Arrived [facility] Comment on above: Arrived Start: 03-26-2023 Screening for malign ant neoplasm of breast Mammogram [facility] Start: 02-13-2023 Influenza vaccination Influenza Vacc ine (#1) [facility] Start: 06-15-2022 ADVANCE DIRECTIVE DISCUSSION ADVANCE DIRECTIVE DISCUSSION [facility] Start: 06-15-2022 DEPRESSION ASSESSMENT DEPRESSION ASS ESSMENT [facility] Start: 02-13-2022 Influenza vaccination INFLUENZA (#1) [facility] Start: 12-08-2021 COVID-19 VACCINE (5 - Booster for Moderna series) COVID-19 VACCINE (5 - Booster for Moderna series) [facility] Start: 06-15-2021 ADVANCE DIRECTIVE DISCUSSION ADVANCE DIRECTIVE DISCUSSION [facility] Start: 06-15-2021 DEPRESSION ASSESSMENT DEPRESSION ASS ESSMENT [facility] Start: 01-11-2021 BONE DENSITY BONE DENSITY [facility] Start: 01-11-2021 Pneumococcal Vaccine : 65+ Years (1 - PCV) Pneumococcal Vaccine: 65+ Years (1 - PCV) [facility] Start: 01-11-2021 Pneumococcal Vaccine : 65+ Years (1 of 1 - PCV) Pneumococcal Vaccine: 65+ Years (1 of 1 - PCV) [facility] Start: 01-11-2021 PNEUMOCOCCAL: 65+ (1 - PCV) PNEUMOCOCCAL: 65+ (1 - PCV) [facility] Start: 09-20-2012 DIABETES SCREEN DIABETES SCREEN [facility] Start: 01-11-2006 SHINGRIX VACCINE (1 of 2) SHINGRIX V ACCINE (1 of 2) [facility] Start: 01-11-2001 COLOGUARD (FIT-DNA) COLOGUARD (FIT-D NA) [facility] Start: 01-11-2001 Colonoscopy COLONOSCOPY [facility] Start: 01-11-2001 COLORECTAL CANCER SCREENING COLORECTAL CANCER SCREENING [facility] Start: 01-11-[address] COLONOGRAPHY [facility] Start: 01-11-2001 FECAL OCCULT BLOOD FECAL OCCULT BLOO D [facility] Start: 01-11-2001 LIPID SCREEN LIPID SCREEN [facility] Start: 01-11-2001 SIGMOIDOSCOPY SIGMOIDOSCOPY [facility] Start: 1996 Mammography MAMMOGRAM [facility] Start: 01-11-1975 Urine microalbumin profile DTAP,TDAP,TD (1 - Tdap) [facility] Start: 01-11-1974 HEPATITIS C SCREENING HEPATITIS C SC REENING [facility] Start: 1955 COVID-19 VACCINE (#1) COVID-19 VACCI NE (#1) [facility] Start: 1955 Screening for malign ant neoplasm of colon [facility] Immunizations Immunization Date Immunization Notes Care Provider Bill dorsey 04-09-2022 influenza virus vacc ine, unspecified formulation Cindy Phan DO Work Phone: [facility] Payers Date Payer Category Payer Medicare ANTHEM MEDICARE ADVANTAGE ANTHEM MEDICARE ADVANTAGE [id number] 2023-Present [address] [place] [id number] 2023 Medicare (Managed Care) EFFIE M EDICARE ADVANTAGE [id number] 2021 Unknown ANTHEM BLUE CROS S AND BLUE SHIELD ANTHEM MEDIBLUE HMO [id number] 2021-Present [phone] [address] [id number] 2018 Self-pay 2018 Unknown [id number] 1959 Unknown [id number] 1956 Unknown [id number] 2.16.840.1.055888.3.579. 2.593 1956 Unknown [id number] 2.16.840.1.375242.3.579. 2.593 1956 Unknown [id number] 2.16.840.1.405581.3.579. 2.593 1956 Unknown [id number] 2.16.840.1.068017.3.579. 2.593 1956 Unknown [id number] 2.16.840.1.959700.3.579. 2.593 1956 Unknown [id number] 2.16.840.1.029029.3.579. 2.593 1956 Unknown [id number] 2.16.840.1.724398.3.579. 2.593 1956 Unknown [id number] 2.16.840.1.095203.3.579. 2.593 1956 Unknown [id number] 2.16.840.1.201540.3.579. 2.593 1956 Unknown [id number] 2.840.1.551185.3.579. 2.593 1956 Unknown [id number] 2.16840.1.342819.3.579. 2.593 1956 Unknown [id number] 2.16.840.1.963834.3.579. 2.593 1956 Unknown [id number] 2.16840.1.294337.3.579. 2.593 1956 Unknown [id number] 2.16840.1.103742.3.579. 2.727 1956 Unknown [id number] 2.16840.1.607118.3.579. 2.727 1956 Unknown [id number] 2.16.840.1.533448.3.579. 2.1259 1956 Unknown [id number] 2.16.840.1.923060.3.579. 2.1259 1956 Unknown [id number] 2.16.840.1.035577.3.579. 2.1259 1956 Unknown [id number] 2.16.840.1.316714.3.579. 2.1259 1956 Unknown [id number] 2.16.840.1.828020.3.579. 2.1259 1956 Unknown [id number] 2.16.840.1.192378.3.579. 2.1259 1956 Unknown [id number] 2.16.840.1.986606.3.579. 2.1259 Unknown [id number] 2.16.840.1.330797.3.579. 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 Sex Female (finding) [facility] Start: 1955 Sex Assigned At Female F [facility] Clinical Notes 05-27-2022 to 08-15-2024 Divya Dudley MD - 08/15/2024 10:30 AM ESTTelephone Encounter - Divya Dudley MD - 08/09/2024 2:04 PM ESTTelephone Encounter - Divya Dudley MD - 08/09/2024 2:04 PM EST Note Date & Type Note Facility 08-15-2024 History of Present illness Narrative Subjective Patient ID: Skip Hong is a 69 y.o. female who presents for Mouth Lesions Pt reports she developed an ulceration on the undersurface of the tongue 2 weeks ago. Tx with kenalog and an antifungal. No family history on file. Active Ambulatory Problems Diagnosis Date Noted Age-related nuclear cataract of both eyes 07/27/2023 Carpal tunnel syndrome on both sides 10/08/2023 Advancing dementia ([facility]/HCC) 10/08/2023 Abdominal pain 09/20/2009 Cervical spondylosis without myelopathy 07/10/2022 Fibromyalgia 09/20/2009 Idiopathic chronic pancreatitis ([facility]/HCC) 05/13/2018 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 region 06/03/2022 Resolved Ambulatory Problems Diagnosis Date Noted No Resolved Ambulatory Problems Past Medical History: Diagnosis Date Acid reflux Brachial neuritis or radiculitis 04/18/2014 Brachial plexus lesion 04/21/2008 Cataract Chronic pancreatitis ([facility]) Disease of thyroid gland ([facility]) Dry eyes Esophageal spasm Headache 04/21/2008 Hypercholesteremia ([facility]) IBS (irritable bowel syndrome) Lupus Migraine ([facility]) Pain in limb 04/21/2008 Thoracic outlet syndrome [...] Prior to Visit Medication Sig Dispense Refill triamcinolone (Kenalog) 0.1 % oral paste APPLY TO THE AFFECTED AREA do not rinse afterwards and avoid eating or drinking for 30 MINUTES EVERY 4 HOURS valACYclovir (Valtrex) 1 g tablet Take 1,000 mg by mouth in the morning and 1,000 mg in the evening and 1,000 mg before bedtime. acetaminophen (Tylenol) 500 MG tablet Take 500 [...] 1 (one) time if needed for migraine No current facility-administered medications on file prior to visit. Objective Last Recorded Vitals Vitals: 08/15/24 1022 BP: 124/80 Pulse: 73 ENT Physical Exam Oral Cavity/Oropharynx OC/OP comments: Left ventral tongue aphthous ulcer Assessment/Plan Diagnoses and all orders for this visit: Oral ulcer Pt appears to have an aphthous ulcer. Will tx with Miles solution. documented in this encounter [facility] 08-09-2024 Telephone encounter Note Thursday [facility] 08-09-2024 Miscellaneous Notes Thursday Pt called in. Pt saw Dr Mcgregor last for a sore in her mouth. Dr Mcgregor told pt she should see Dr Dudley when the sore is in her mouth. She's been fighting sores in her mouth since March with Dr Mcgregor. She wants to know how soon she can get in. documented in this encounter [facility] 08-09-2024 Telephone encounter Note Pt called in. Pt saw Dr Mcgregor last for a sore in her mouth. Dr Mcgregor told pt she should see Dr Dudley when the sore is in her mouth. She's been fighting sores in her mouth since March with Dr Mcgregor. She wants to know how soon she can get in. [facility] 07-20-2024 History of Present illness Narrative Images [...] (CMS/HCC) IBS (irritable bowel syndrome) Lupus Migraine ([facility]) Pain in limb 04/21/2008 Thoracic outlet syndrome [...] reflexes are 2+ and symmetric throughout. Coordination: Dgeoqc-op-oxke testing and rapid alternating movements are normal [...] is also identified. -Thyroid stimulating hormone at [facility] on 04/20/2023: Normal Assessment/Plan Diagnoses and [...] mental health issues documented in this encounter [facility] 06-20-2024 History of Present illness Narrative Subjective Patient ID: Skip Hong is a 69 y.o. female who presents [...] syndrome on both sides 10/08/2023 Advancing dementia ([facility]/HCC) 10/08/2023 Abdominal pain 09/20/2009 Cervical spondylosis without myelopathy 07/10/2022 Fibromyalgia 09/20/2009 Idiopathic chronic pancreatitis ([facility]/HCC) 05/13/2018 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 region 06/03/2022 Resolved Ambulatory Problems Diagnosis Date Noted No Resolved Ambulatory Problems Past Medical History: Diagnosis Date Acid reflux Brachial neuritis or radiculitis 04/18/2014 Brachial plexus lesion 04/21/2008 Cataract Chronic pancreatitis ([facility]) Disease of thyroid gland ([facility]) Dry eyes Esophageal spasm Headache 04/21/2008 Hypercholesteremia ([facility]) IBS (irritable bowel syndrome) Lupus Migraine ([facility]) Pain in limb 04/21/2008 Thoracic outlet syndrome [...] by Dr Mullins. documented in this encounter [facility] 07-27-2023 History of Present illness Narrative Images [...] different lens options were explained including the zhy-vq-monccz fees for any upgrades. Intraocular lens (IOL) [...] (RGP) lenses occurred. documented in this encounter [facility] 06-23-2022 Note HNO ID: [id number] Author: Benjamin Moore PA-C Service: ? Author Type: Physician Customer Specialist Type: Progress Notes Filed: 06/23/2022 7:54 AM Note Text: AMBULATORY TELEPHONE VISIT Skip Hong has consented to this telephone encounter. Patient was unable to connect to [employer] Virtual Visit - call to patient to [...] 45 minutes Benjamin Moore PA-C [facility] 06-23-2022 History of Present illness Narrative AMBULATORY TELEPHONE VISIT Skip Hong has consented to this telephone encounter. Patient was unable to connect to [employer] Virtual Visit - call to patient to [...] Benjamin Moore PA-C documented in this encounter [facility] 06-04-2022 Note HNO ID: [id number] Author: Sangeetha Vasquez APRN.[employer] Service: ? Author Type: Nurse Practitioner Type: [...] virtual visit whatever patient preference. [facility] 06-04-2022 History of Present illness Narrative [...] Health Provider or Pain Management Provider at [facility]? No If answer is YES [...] facility where the MRI/CT/myelogram was completed: The [address] [place] [address] MRI/CT/myelogram viewable in Epic: No If not, please provide [phone] to fax in imaging reports for review. Also, please inform patient to hand carry imaging disc to appointment. XR (spine) within 12 months: Yes If YES, please ask for the name/address of the facility where the XR was completed: [place] [address] Dr. Humphreys's patients: Have you had previous [...] injections and/or physical therapy was completed Injections: [facility] [address] [place] [address] PT: unable to recall facility Have you [...] where the surgery was completed: Additional Comments [phone] documented in this encounter [facility] 06-03-2022 Note HNO ID: [id number] Author: Celeste Khalil Research Coordinator Service: ? Author Type: Research Type: Progress Notes Filed: 06/04/2022 11:31 AM Note Text: Patient name: Skip Hong Are you being referred by a Center for [facility] Health Provider or Pain Management Provider at [facility]? No If answer is YES [...] facility where the MRI/CT/myelogram was [place]: [place] [address] MRI/CT/myelogram viewable in Epic: No If not, please provide [phone] to fax in imaging reports for review. Also, please inform patient to hand carry imaging disc to appointment. XR (spine) within 12 months: Yes If YES,? please ask for the name/address of the facility where the XR was completed: [place] [address] Dr. Humphreys's patients: Have you had previous [...] injections and/or physical therapy was completed Injections: [facility] [address] [place] [address] PT: unable to recall facility Have you [...] where the surgery was completed: Additional Comments [phone] [facility] 05-27-2022 Evaluation note Encounter Date Diagnosis [...] and agrees. A referral will be sent [employer] Other evaluation note* Diagnosis Fibromyalgia- Primary Mylagia and myositis, unspecified Cervicalgia [facility] Information[facility] [employer] Other Evaluation note* Diagnosis Age-related nuclear cataract of both eyes- Primary documented in this encounter [facility] Healthcare[facility] note* Diagnosis Age-related nuclear cataract of both eyes documented in this encounter [facility] Healthcare[facility] note* Diagnosis Age-related nuclear cataract of both eyes documented in this encounter [facility] Healthcare[facility] note* Diagnosis Left facial pain- Primary Headache documented in this encounter [facility] HealthcareEvaluation note* Diagnosis Memory impairment- Primary Memory loss Anxiety Anxiety state, unspecified documented in this encounter [facility] HealthcareEvaluation note* Diagnosis Oral ulcer- Primary Other and unspecified diseases of the oral soft tissues documented in this encounter [facility] HealthcareEvaluation note* Diagnosis Onset Date Resolution Status Admit Date Memory difficulty chronic January 23, 2025 9:13am [facility] Work Phone: History general Narrative - Reported* Type Description Date [...] History arthroscopy shoulder Hospitalization History see above [facility] [employer] Other reason for referral (narrative)No reason for referral information availableAcmc [facility] Work Phone: Reason for visit NarrativeReferral update - pain mangementNortTemple [facility] [employer] Other Summary Purpose Family History Relationship Condition Age at Onset Recorded Date/T amauri father Unknown mother Unknown Advance Directives Advance Directive Response Recorded Date/ Time Advance Directives No February 10, 2018 2:23pm Reason for Referral Reason DECLINED Evaluate and Treat Neck Pain Diagnosis 1 Neck pain (M54.2) Referral Organization [facility] urosurgery Referring Provider First Name Prasad Referring Provider Last Name Maame Referring Provider Specialty Neurologica l Surgery Referred Organization [facility] Pain Managemen t Referred Provider Bentley Bragg Referred Address [address] [place] [phone] Referred Provider Specialty Pain Medicin e Referral Priority Routine General Notes Jenifer Ramírez 022 08:31:51 AM >Received today and sent Esthela Weems 06/03/2022 02:35:54 PM >fyi patient declined seeing Dr Bragg, she stated she has returned to her previous PM provider in [place] Jenifer Ramírez 06/03/2022 02:59:27 PM >OK, thank you for the update. Telephone encounter was sent Chief Complaint and Reason for Visit Chief Complaint Admit Date 6 month follow up January 23, 2025 9: 13am Reason for Visit Admit Date Memory difficulty January 23, 2025 9: 13am Additional Source Comments INFORMATION SOURCE (unrecogn ized section and content) DATE CREATED AUTHOR 07/22/2018 [facility] DATE CREATED AUTHOR AUTHOR'S ORGANIZ ATION 06/23/2022 [facility] DATE CREATED AUTHOR AUTHOR'S ORGANIZ ATION 07/02/2022 [facility] [place] [facility] DATE CREATED AUTHOR AUTHOR'S ORGANIZ ATION 01/19/2024 [facility] DATE CREATED AUTHOR AUTHOR'S ORGANIZ ATION 01/20/2024 [facility] DATE CREATED AUTHOR AUTHOR'S ORGANIZ ATION 01/27/2024 [place] [facility] DATE CREATED AUTHOR AUTHOR'S ORGANIZ ATION 08/16/2024 [facility] dical Specialists EPIC Source Comments (unrecognize d section and content) In the event this informatio n is protected by the Federal Confidentiality of Alcohol and Drug Abuse Patient Records regulations: The Federal rules restrict any use of the information to criminally investigate or prosecute any alcohol or drug abuse patient.[facility] the event this information is protected by the Federal Confidentiality of Alcohol and Drug Abuse Patient Records regulations: The Federal rules restrict any use of the information to criminally investigate or prosecute any alcohol or drug abuse patient.[facility] Care Teams (unrecognized sec tion and content) Information Technology Auditor Relationship Specialty Start Date End Date Anitha Mcgregor MD [address] [place] [address] PCP - General 09/07/09 Luli Roy (Hist)MD [address] [facility] [place] [address] Referring Gastroenterology 05/04/18 Information Technology Auditor Relationship Specialty Start Date End Date Anitha Mcgregor MD [address] [place] [address] PCP - General 09/07/09 Luli Roy (Hist)MD [address] [place], [place] [address]b[place] [address] Referring Gastroenterology 05/04/18 Information Technology Auditor Relationship Specialty Start Date End Date Anitha Mcgregor MD [address] [facility] [place] [address] PCP - General Family Medicine 07/27/23 Information Technology Auditor Relationship Specialty Start Date End Date Anitha Mcgregor MD [address] [facility] [place] [address] PCP - General Family Medicine 07/27/23 Oral Fernandez OD [address] [place] [facility] [place] [address] Referring Physician Optometry 01/11/24 Information Technology Auditor Relationship Specialty Start Date End Date Anitha Mcgregor MD [address] [facility] [place] [address] PCP - General Family Medicine 07/27/23 Oral Fernandez OD [address] [place] [facility] [address] Referring Physician Optometry 01/11/24 Information Technology Auditor Relationship Specialty Start Date End Date Anitha Mcgregor MD [address] [facility] [place] [address] PCP - General Family Medicine 07/27/23 Oral Fernandez OD [address] [place] [facility] [place] [address] Referring Physician Optometry 01/11/24 Information Technology Auditor Relationship Specialty Start Date End Date Anitha Mcgregor MD [address] [facility] [place] [address] PCP - General Family Medicine 07/27/23 Oral Fernandez OD [address] [place] [facility] [place] [address] Referring Physician Optometry 01/11/24 Information Technology Auditor Relationship Specialty Start Date End Date Anitha Mcgregor MD [address] [facility] [place] [address] PCP - General Family Medicine 07/27/23 Oral Fernandez OD [address] [facility] [place] [address] Referring Physician Optometry 01/11/24 Information Technology Auditor Relationship Specialty Start Date End Date Anitha Mcgregor MD [address] [facility] [place] [id number] PCP - General Family Medicine 07/27/23 Oral Fernandez OD [address] [facility] [place] [address] Referring Physician Optometry 01/11/24 Information Technology Auditor Relationship Specialty Start Date End Date Anitha Mcgregor MD [address] [facility] [place] [address] PCP - General Family Medicine 07/27/23 Oral Fernandez OD [address] [facility] [place] [address] Referring Physician Optometry 01/11/24 Information Technology Auditor Relationship Specialty Start Date End Date Anitha Mcgregor MD [address] [place] [address] PCP - General Family Medicine 07/27/23 Oral Fernandez OD [address] [place] [address] Referring Physician Optometry 01/11/24 Team Status: Active Member Role Status Dates Anitha Mcgregor MD Primary Care Provider Active Team Status: Inactive Member Role Status Dates Anitha Mcgregor MD Primary Care Provider Active Start: January 23, 2025 End: January 23, 2025 Екатерина Chacon APRN-LOG PROCESSOR OPERATOR-C Attending Provider Active Start: January 23, 2025 End: January 23, 2025 Reason for Visit (unrecogniz ed section and content) Reason Comments Neck Pain Reason Comments Cataract Reason Comments Med Refill Reason Comments Facial Pain Reason Onset Date Comments Mouth Lesions 08/09/2024 Reason Comments Mouth Lesions Goals (unrecognized section and content) Goals may be documented in a n alternate section FOR RECORDS PERTAINING TO PATIENTS WHO ARE [...] BE BASED ON THE PRIMARY CLINICAL RECORDS. [employer] provides no warranty or guarantee of the accuracy or completeness of information in this document.
--- OUTSIDE RECORDS SUMMARY | 2025-02-04 13:41 | XMS_ITS | Clinical Summary ---
Author Organization [employer] Address [id number] [address] [place] [address] Care Team Providers Care Buttonholer Name Role Phone Min Mcgregor MD Primary Care Provider [phone] Allergies Active Allergy Reactions Criticality Noted Date Comments Adhesive Tape-Silicones Rash Low 06/03/2022 Aspirin Anaphylaxis High 09/13/2009 Sulfamethoxazole-Trimet hoprim GI Disturbance Medium 06/03/2022 Ciprofloxacin Rash Low 06/03/2022 Hydrocodone-Homatropine Other (See Comments) Etodolac Rash Low 06/03/2022 Morphine GI Disturbance Low 09/13/2009 Oxycodone-Acetaminophen Rash Low 06/03/2022 Promethazine Hcl Low 09/13/2009 Butorphanol Rash Low 06/03/2022 Theophylline Syncope High 06/03/2022 [place], N/V, blurred vision, insomnia Medications ibuprofen (ADVIL,MOTRIN) 200 mg tablet Take 1 tablet (200 mg total) by mouth every 6 (six) hours as needed. Active tiZANidine (ZANAFLEX) 2 mg tablet Take by mouth nightly. 05/07/2022 Active HYDROcodone-adalgisa taminophen (NORCO) 5-325 mg per tablet Take 1 tablet by mouth every 8 (eight) hours as needed. Active acetaminophen (TYLENOL EXTRA STRENGTH) 500 mg tablet Take 1 tablet (500 mg total) by mouth every 6 (six) hours as needed for pain. Active acidophilus-pec tin, citrus 25 million cell -100 mg tablet Take by mouth 3 (three) times a day with meals. Active docusate sodium (COLACE) 100 mg capsule Take 1 capsule (100 mg total) by mouth in the morning and 1 capsule (100 mg total) before bedtime. Active polyethylene glycol (GLYCOLAX) 17 gram packet Take 17 g by mouth as needed. Active SUMAtriptan (IMITREX) 100 mg tablet Take 1 tablet (100 mg total) by mouth once as needed for migraine. May repeat in 2 hours if unresolved. Do not exceed 200 mg in 24 hours. Active oxyCODONE-aceta minophen (PERCOCET) 5-325 mg per tablet TAKE 1 TABLET BY MOUTH THREE TIMES DAILY NEEDED FOR PAIN (7 days) 05/07/2022 Active gabapentin (NEURONTIN) 100 mg capsule Take 1 capsule (100 mg total) by mouth in the morning and 1 capsule (100 mg total) before bedtime. 07/31/2022 Active hydrOXYzine (ATARAX) 25 mg tablet Take 1 tablet (25 mg total) by mouth 4 (four) times a day as needed. 08/15/2022 Active Active Problems Problem Noted Date Diagnosed Date Cervical spondylosis without myelopathy 07/10/19 23 Overview (07/10/2022): Added automatically from request for surgery [id number] 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 region 06/03/2022 Overview (06/03/2022): Added automatically from request for surgery [id number] Social History Tobacco Use Types Packs/Day Years Used Date Smoking Tobacco: Never Smokeless Tobacco: Never Tobacco Cessation:Counseling Given: Not Answered Childcare Answer Date Recorded Childcare Unknown 11/24/2018 Employment Answer Date Recorded Employment Unknown 11/24/2018 Hunger Screening Answer Date Recorded Within the past 12 months we worried whether our food would run out before we got money to buy more. Never True 08/28/2022 Within the past 12 months th e food we bought just didn't last and we didn't have money to get more. Never True 08/28/2022 Comments No Sex and Gender Information Value Date Recorded Sex Assigned at Not on file Legal Sex Female 11:50 AM EDT Gender Identity Not on file Sexual Orientation Not on file Last Filed Vital Signs Vital Sign Reading Time Taken Comments Blood Pressure 133/73 08/28/2022 10:07 AM EDT Pulse 63 08/28/2022 10:07 AM EDT Temperature 36.7 C (98 F) 08/15/2022 1:16 PM EST Respiratory Rate 18 08/15/2022 1:46 PM EST Oxygen Saturation 100% 08/28/2022 10:07 AM EDT Inhaled Oxygen Concentration - - Weight 60.5 kg (133 lb 6.4 oz) 08/28/2022 10:07 AM EDT Height 160 cm (5' 3 ) 08/07/2022 9:46 AM EST Body Mass Index 23.63 08/07/2022 9:46 AM EST Plan of Treatment Health Maintenance Due Date Last Done Comments Depression Screening 1967 Tobacco Screening 1967 DTaP,Tdap and Td Vaccines (1 - Tdap) 01/11/1975 Zoster (Shingles) Vaccine (1 of 2) 01/11/2006 Fall Risk Screening 01/11/2021 Adult BMI Screening 08/29/2023 08/28/2022 COVID-19 Vaccine (2023-2 5 season) 2024 10/13/2021, 11/13/2020, 09/21/2020, Additional history exists Influenza Vaccine 02/13/2025 04/09/2022, 03/19/2020 Medical Devices Not on file Insurance [employer] Care Teams Buttonholer Relationship Specialty Start Date End Date Min Mcgregor MD PCP - General Family Medicine 05/30/22
--- OUTSIDE RECORDS SUMMARY | 2025-02-04 13:42 | XMS_ITS | Encounter Summary ---
Author Organization [facility] Address [address] [place] [address] Care Team Providers Care Service Delivery Consultant Name Role Phone Min Mcgregor MD Primary Care Provider [phone] Josh Fernandez OD Unavailable Encounter Details Date Type Department Care Team (Late st Contact Info) Description 01/18/2024 Clinisync Result Encounter [facility] External [facility] Unsolicited Basim Phan, DO [address] [place], [place] [id number] Social History Tobacco Use Types Packs/Day Years Used Date Smoking Tobacco: Never Smokeless Tobacco: Never Comments Unknown Sex and Gender Information Value Date Recorded Sex Assigned at Not on file Legal Sex Female 6:56 PM EDT Gender Identity Not on file Sexual Orientation Not on file documented as of this encounter Plan of Treatment Not on file documented as of this encounter Procedures Procedure Name Priority Date/Time Associated Diagnosis Comments XR CHEST 2 VIEWS 01/18/2024 10:1 9 AM EDT documented in this encounter Results * XR CHEST 2 VIEWS (01/18/2024 10:19 AM EDT) Anatomical Region Laterality Modality Other 01/18/2024 10:1 9 AM EDT Narrative 01/19/2024 4:32 PM EDT Exam Date/Time: 01/18/2024 10:27 EDT Reason for [...] upper quadrant of the abdomen. Ordering Provider: Basim Phan FINAL REPORT Dictated: 01/19/2024 4:29 pm Karthik Rice M.D. Signed (Electronic Signature): 01/19/2024 4:29 pm Signed by: Karthik Rice M.D. Transcribed by: [place] Technologist: FAITH Technical Comments Radiation Dose: Ka,r in mGy = na DAP = na Procedure Note Radiology, Radiologist, MD - 01/19/2024 Exam Date/Time: 01/18/2024 10:27 EDT Reason for Exam: H25.13 Age-related nuclear cataract, bilateral Report IMPRESSION: NO EVIDENCE OF ACTIVE CHEST DISEASE. CLINICAL HISTORY: H25.13 Age-related nuclear cataract, bilateral.Preop. COMMENT: The heart is normal in size. The mediastinum is unremarkable. The lungsappear clear. No infiltration nor pleural effusion is evident. There are small metallic surgical clips projecting on the upper thorax onthe right and the left. There are surgical clips in the right upper quadrant of theabdomen. Ordering Provider: Basim Phan FINAL REPORT Dictated: 01/19/2024 4:29 pm Karthik Rice M.D. Signed (Electronic Signature): 01/19/2024 4:29 pm Signed by: Karthik Rice M.D. Transcribed by: K[place] Technologist: FAITH Technical Comments Radiation Dose: Ka,r in mGy = na DAP = na Basim Phan DO [facility] Final Res ult documented in this encounter Visit Diagnoses Not on filedocumented in this encounter Care Teams Service Delivery Consultant Relationship Specialty Start Date End Date Min Mcgregor MD PCP - General Family Medicine 07/27/23 Josh Fernandez OD [address] [place] [address] Referring Physician Optometry 01/11/24 documented as of this encounter
--- NOTE | 2025-02-04 13:44 | XR_ITS ---
[facility] [place] [address] Patient Name: CRISTOBAL CALERO MRN: [id number] date: 1955 Sex: F Assigned Patient Location: ER Current Patient Location: ER Accession/Order Number: [id number] Exam Date: 02/04/2025 14:05 Report Date: 02/04/2025 14:33 At the request of: YUNI BILL Procedure: XR ankle LT 2V XR ankle LT 2V 02/04/2025 2:14 PM SIGNS AND SYMPTOMS: ^left ankle injury/ PROTOCOL: Frontal and lateral radiographs of the left ankle COMPARISON: None FINDINGS: There is a trimalleolar fracture and dislocation of the left ankle with the talus laterally subluxed in respect to the distal tibia by 2.3 cm. There is apex medial angular deformity of the distal fibular fracture. The talar dome appears to be grossly intact. XR/XR ankle LT 2V IMPRESSION: There is a trimalleolar fracture and dislocation of the left ankle with the talus laterally subluxed in respect to the distal tibia by 2.3 cm. There is apex medial angular deformity of the distal fibular fracture. Impression dictated by: Josh Shaffer M.D. 02/04/2025 2:33 PM Dictation Location: [place] [address] Electronically authenticated by: [id number] Y Date: 02/04/2025 14:33
--- NOTE | 2025-02-04 13:47 | XR_ITS ---
[facility] [place] [address] Patient Name: CRISTOBAL CALERO MRN: [id number] date: 1955 Sex: F Assigned Patient Location: ER Current Patient Location: ER Accession/Order Number: [id number] Exam Date: 02/04/2025 14:05 Report Date: 02/04/2025 14:34 At the request of: YUNI BILL Procedure: XR tibia fibula LT 2V XR tibia fibula LT 2V 02/04/2025 2:14 PM SIGNS AND SYMPTOMS: ^injury PROTOCOL: Frontal and lateral radiographs of the left tibia and fibula COMPARISON: None FINDINGS: There is a trimalleolar fracture and dislocation of the left ankle with the talus laterally subluxed in respect to the distal tibia by 2.3 cm. There is apex medial angular deformity of the distal fibular fracture. The proximal aspect of the left tibia and fibula is grossly intact. XR/XR tibia fibula LT 2V IMPRESSION: There is a trimalleolar fracture and dislocation of the left ankle with the talus laterally subluxed in respect to the distal tibia by 2.3 cm. There is apex medial angular deformity of the distal fibular fracture. Impression dictated by: Josh Shaffer M.D. 02/04/2025 2:34 PM Dictation Location: [place] [address] Electronically authenticated by: [id number] Y Date: 02/04/2025 14:34
[2025-02-04] MEDS: FENTANYL CITRATE/PF 100 MCG/2 ML VIAL 50 MCG IV ×2 (13:59→14:42)
--- NOTE | 2025-02-04 14:21 | XR_ITS ---
[facility] [place] [address] Patient Name: CRISTOBAL CALERO MRN: [id number] date: 1955 Sex: F Assigned Patient Location: ER Current Patient Location: Accession/Order Number: [id number] Exam Date: 02/04/2025 14:15 Report Date: 02/04/2025 14:36 At the request of: UMAIR VILLALPANDO DO Procedure: XR ankle LT 2V XR ankle LT 2V 02/04/2025 2:28 PM SIGNS AND SYMPTOMS: ^post reduction ^Y PROTOCOL: Frontal and lateral radiographs of the left ankle COMPARISON: Radiographs from the same date FINDINGS: There is redemonstration of a malleable fracture with reduction of the previous lateral dislocation of the talus. There is residual dorsal subluxation of the distal fibular fragment and distal tibial fragment. The distal tibial fracture extends through the articular surface communicating with the tibiotalar joint space. The medial malleolus fragment is in anatomic alignment. XR/XR ankle LT 2V IMPRESSION: Satisfactory reduction of trimalleolar fracture and dislocation of the left ankle with residual dorsal subluxation of the distal fibular fragment and distal tibial fragment. Impression dictated by: Josh Shaffer M.D. 02/04/2025 2:36 PM Dictation Location: [place] [address] Electronically authenticated by: [id number] Y Date: 02/04/2025 14:36
[2025-02-04] MEDS: PROPOFOL 200 MG/20 ML VIAL 100 MG IVP (14:37)
[2025-02-04] MEDS: 0.9 % SODIUM CHLORIDE 1,000 ML 1000 ML IV (14:37)
[2025-02-04 14:51] LABS: Hematocrit 38.4 % (36.0-48.0); Hemoglobin 12.9 g/dL (12.0-16.0); Immature Granulocytes Abs Auto 0.01 10^3/uL (0.00-0.03); Immature Granulocytes Pct Auto 0.2 % (0.0-0.5); Lymphocytes Absolute Auto 1.5 10^3/uL (1.2-3.8); Mean Corpuscular HGB Conc 33.6 g/dL (29.9-35.2); Mean Corpuscular Hemoglobin 30.4 pg (26.7-34.0); Mean Corpuscular Volume 90.4 fL (81.0-99.0); Platelet Count 282 10^3/uL (150-450); Red Blood Count 4.25 10^6/uL (4.20-5.40); White Blood Count 5.9 10^3/uL (4.0-11.0)
[2025-02-04 14:57] LABS: Anion Gap 14.3; Blood Urea Nitrogen 9.0 mg/dL (7.0-18.0); Calcium 8.8 mg/dL (8.5-10.1); Carbon Dioxide 23.3 mmol/L (21.0-32.0); Chloride 109 mmol/L (98-107); Estimated GFR (African America >60 (>=60 mL/min/1.73m^2); Estimated GFR (Non-African Ame >60 (>=60 mL/min/1.73m^2); Glucose 101 mg/dL (74-106); Potassium 3.6 mmol/L (3.5-5.1); Sodium 143 mmol/L (136-145)
[2025-02-04 15:02] LABS: INR 0.95; Partial Thromboplastin Time 25.2 sec (22.3-36.2); Prothrombin Time 10.1 sec (9.0-11.6)
--- NOTE | 2025-02-04 16:23 | ED.GENADUL1 ---
HPI HPI - General Adult General Chief complaint: Extremity Injury, Lower Stated complaint: FALL; L ANKLE PAIN/INJURY Time Seen by Provider: 02/04/25 13:44 Source: patient Mode of arrival: Wheelchair Limitations: no limitations History of Present Illness HPI narrative: Patient is a 70-year-old female presenting to the emergency department for concerns of a left ankle injury. Patient was walking down a flight of stairs when she tripped, fell, and landed on her left ankle. She noted immediate pain and deformity and has been unable to bear weight. Besides a left ankle injury, she has no other injuries. Did not hit her head or lose consciousness. She denies any numbness/tingling in the foot. She takes Plavix twice weekly, but no anticoagulation. She denies any pain in the hip or knee. No back pain. No chest pain or shortness of breath. No abdominal pain, nausea, or vomiting Related Data Home Medications ?Medication ?Instructions ?Recorded ?Confirmed gabapentin 100 mg capsule 100 mg PO Q12H 02/25/23 11/05/23 sumatriptan succinate 100 mg 100 mg PO .at onset PRN migraines 02/25/23 11/05/23 tablet (Imitrex) clopidogrel 75 mg tablet 75 mg PO DAILY 11/05/23 11/05/23 liothyronine 5 mcg tablet 5 mcg PO DAILY 11/05/23 11/05/23 omeprazole 20 mg capsule,delayed 20 mg PO DAILY 11/05/23 11/05/23 release Previous Rx's ?Medication ?Instructions ?Recorded hydroxyzine HCl 25 mg tablet 25 mg PO Q8H PRN itching #20 tabs 11/03/23 Allergies Allergy/AdvReac Type Severity Reaction Status Date / Time aspirin Allergy Severe Anaphylaxis Verified 02/04/25 13:53 butorphanol (From Stadol) Allergy Severe Rash Verified 02/04/25 13:53 ciprofloxacin (From Cipro) Allergy Severe Rash Verified 02/04/25 13:53 homatropine (From Hydromet) Allergy Severe Rash Verified 02/04/25 13:53 hydromorphone (From Dilaudid) Allergy Severe Rash Verified 02/04/25 13:53 metoclopramide (From Reglan) Allergy Severe spasms Verified 02/04/25 13:53 sulfamethoxazole (From Allergy Severe severe Verified 02/04/25 13:53 Bactrim) illness theophylline Allergy Severe Dizziness Verified 12/31/22 10:20 tramadol Allergy Severe Rash Verified 02/04/25 13:53 trimethoprim (From Bactrim) Allergy Severe severe Verified 02/04/25 13:53 illness memantine Allergy Mild Hives Verified 02/04/25 13:53 niacin Allergy Mild severe pain Verified 02/04/25 13:53 morphine AdvReac Severe stomach Verified 02/04/25 13:53 pain promethazine (From Phenergan) AdvReac Severe spasms Verified 02/04/25 13:53 imetrex Allergy Mild drops Uncoded 02/04/25 13:53 blood pressure Opioid HPI Opioid Management Most Recent Opioid Data: Last Pain Scale 9 Today, 14:42 Last MAR Pain Assessment Today, 13:59 Last ORT Total Score 2 11/05/23, 18:11 Last ORT Risk Category Low Risk 11/05/23, 18:11 Review of Systems ROS Status of ROS 10 or more systems reviewed and unremarkable except as noted in history and below PFSH PFSH Medical History (Updated 02/04/25 @ 15:08 by Apollo Alamo DO) Dehydration ?E86.0 - Dehydration (ICD-10) 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 - Other cerebrovascular disease (ICD-10) 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) History of colitis ?Z87.19 - Personal history of other diseases of the digestive system (ICD-10) Hx of temporomandibular joint syndrome ?Z87.39 - Personal history of other diseases of the musculoskeletal system and connective tissue (ICD-10) History of lupus Hx of chronic arthritis ?Z87.39 - Personal history of other diseases of the musculoskeletal system and connective tissue (ICD-10) History of fibromyalgia ?Z87.39 - Personal history of other diseases of the musculoskeletal system and connective tissue (ICD-10) History of diverticulitis ?Z87.19 - Personal history of other diseases of the digestive system (ICD-10) Hx of irritable bowel syndrome ?Z87.19 - Personal history of other diseases of the digestive system (ICD-10) Hx of migraines ?Z86.69 - Personal history of other diseases of the nervous system and sense organs (ICD-10) Hx of esophageal reflux ?Z87.19 - Personal history of other diseases of the digestive system (ICD-10) Surgical History (Updated 12/31/22 @ 10:47 by Booker Bone) Hx of cholecystectomy ?Z90.49 - Acquired absence of other specified parts of digestive tract (ICD-10) Hx of hysterectomy ?Z90.710 - Acquired absence of both cervix and uterus (ICD-10) Hx of section ?Z98.891 - History of uterine scar from previous surgery (ICD-10) Hx of tonsillectomy ?Z90.89 - Acquired absence of other organs (ICD-10) Family History (Updated 11/05/23 @ 17:48 by Mary Ann Ramos) Father Family history of CHF (congestive heart failure) Family history of COPD (chronic obstructive pulmonary disease) Family history of hypertension Family history of myocardial infarction Family history of stroke Mother Family history of CHF (congestive heart failure) Family history of COPD (chronic obstructive pulmonary disease) Family history of hypertension Sister Family history of COPD (chronic obstructive pulmonary disease) Family history of hypertension Brother Family history of COPD (chronic obstructive pulmonary disease) Family history of hypertension Social History Smoking status: Never smoker Highest level of school completed/degree received: some college, no degree Little interest or pleasure in doing things: not at all Feeling down, depressed, or hopeless: not at all Exam Narrative Exam Narrative: CONSTITUTIONAL: Patient is in excruciating pain, able to answer questions and follow commands appropriately SKIN: No abrasions or lacerations. EYES: Sclerae white. EARS, NOSE, THROAT: Moist oral mucosa. RESPIRATORY: Clear to auscultation bilaterally, no wheezes, crackles, or stridor, no use of accessory muscles CARDIOVASCULAR: Normal rate and regular rhythm. 2+ DP pulses bilaterally. GASTROINTESTINAL: Abdomen is soft, nontender, nondistended MUSCULOSKELETAL: There is an obvious left ankle deformity with mild amount of soft tissue swelling. There is significant tenderness palpation throughout the joint. She is unable to range the ankle. No open injury or exposed bone. Full range of motion throughout the rest of the left lower extremity. No C-spine tenderness. NEUROLOGIC: Patient is awake and alert. Sensation intact to light touch in the left lower extremity. Limited strength in the left foot/ankle secondary to pain and deformity. Constitutional Vital Signs, click to edit/add: Last Vital Signs Temp 97.6 F 02/04/25 14:10 Pulse 89 02/04/25 15:40 Resp 16 02/04/25 14:20 BP 115/64 02/04/25 15:31 Pulse Ox 100 02/04/25 15:31 O2 Del Method Room Air 02/04/25 13:45 O2 Flow Rate 2 02/04/25 14:20 Course Vital Signs Vital signs: Vital Signs Temperature 97.6 F 02/04/25 13:45 Pulse Rate 125 H 02/04/25 13:45 Respiratory Rate 26 H 02/04/25 13:45 Blood Pressure 135/80 02/04/25 13:45 Pulse Oximetry 96 02/04/25 13:45 Oxygen Delivery Method Room Air 02/04/25 13:45 Temperature 97.6 F 02/04/25 14:10 Pulse Rate 89 02/04/25 15:40 Respiratory Rate 16 02/04/25 14:20 Blood Pressure 115/64 02/04/25 15:31 Pulse Oximetry 100 02/04/25 15:31 Oxygen Delivery Method Room Air 02/04/25 13:45 Oxygen Delivery Flow Rate 2 02/04/25 14:20 Medical Decision Making MDM Narrative Medical decision making narrative: Patient is a 70-year-old female presenting to the emergency department for evaluation of a left ankle injury s/p mechanical fall just prior to arrival. Vital signs on arrival are within normal limits. She is afebrile and hemodynamically stable. On examination, she has an obvious left ankle fracture/deformity. She is neurovascularly intact distal to the injury with good sensation and DP pulses. There is no signs of open fracture. Differential diagnosis includes left ankle fracture, dislocation. X-rays were obtained. She was given 50 mcg of IV fentanyl for pain control IV was established and preoperative laboratory serologies were obtained. X-rays of the left ankle independently reviewed/interpreted by myself and radiology demonstrated left trimalleolar ankle fracture and dislocation (see below for full dictation). Laboratory studies were unremarkable. No significant electrolyte or metabolic derangement. No evidence of acute kidney injury. No anemia, leukocytosis, or thrombocytopenia. At this time, patient will require constant sedation for fracture reduction. After obtaining written consent, the patient was given a total of 80 mg IV propofol and closed reduction successfully performed. She remained neurovascularly intact pre/post-procedure and tolerated it well (see above for full procedure note). Repeat x-rays of left ankle postreduction demonstrated satisfactory reduction of trimalar fracture and dislocation of the left ankle with residual dorsal subluxation of the distal fibular fragment distal tibial fragment. I did discuss the patient with on-call orthopedic surgeon, Dr. Lopes, who recommended transfer to [facility] for operative intervention. I discussed the patient with hospitalist, Dr. Wayne, who accepted the transfer as well. FINAL IMPRESSION: Acute left trimalleolar ankle fracture and dislocation requiring closed reduction DISPOSITION: Transferred to [facility] CONDITION: Good Lab Data Lab results reviewed: Yes I reviewed the patient's lab results Labs: Lab Results 02/04/25 02/04/25 Range/Units 14:40 14:44 WBC 5.9 (4.0-11.0) 10^3/uL RBC 4.25 (4.20-5.40) 10^6/uL Hgb 12.9 (12.0-16.0) g/dL Hct 38.4 (36.0-48.0) % MCV 90.4 (81.0-99.0) fL MCH 30.4 (26.7-34.0) pg MCHC 33.6 (29.9-35.2) g/dL RDW 13.2 (11.0-15.0) % Plt Count 282 (150-450) 10^3/uL MPV 9.2 L (9.5-13.5) fL Neut % (Auto) 63.5 (43.0-75.0) % Lymph % (Auto) 25.3 (20.5-60.0) % [place] % (Auto) 9.8 (1.7-12.0) % Eos % (Auto) 0.7 L (0.9-7.0) % Baso % (Auto) 0.5 (0.2-2.0) % Neut # (Auto) 3.8 (1.4-6.5) 10^3/uL Lymph # (Auto) 1.5 (1.2-3.8) 10^3/uL [place] # (Auto) 0.6 (0.3-0.8) 10^3/uL Eos # (Auto) 0.0 (0.0-0.7) 10^3/uL Baso # (Auto) 0.0 (0.0-0.1) 10^3/uL Abs Immat Gran (auto) 0.01 (0.00-0.03) 10^3/uL Imm/Tot Granulo (auto) 0.2 (0.0-0.5) % PT 10.1 (9.0-11.6) sec INR 0.95 APTT 25.2 (22.3-36.2) sec Sodium 143 (136-145) mmol/L Potassium 3.6 (3.5-5.1) mmol/L Chloride 109 H (98-107) mmol/L Carbon Dioxide 23.3 (21.0-32.0) mmol/L Anion Gap 14.3 BUN 9.0 (7.0-18.0) mg/dL Creatinine 0.84 (0.55-1.02) mg/dL Est GFR ( Amer) >60 (>=60 mL/min/1.73m^2) Est GFR (Non-Af Amer) >60 (>=60 mL/min/1.73m^2) BUN/Creatinine Ratio 10.7 Glucose 101 (74-106) mg/dL Calcium 8.8 (8.5-10.1) mg/dL Blood Type O Positive Antibody Screen Negative Imaging Data left ankle: Attestation: I personally reviewed and interpreted this imaging study as follows: Discharge Plan Discharge Chief Complaint: Extremity Injury, Lower Clinical Impression: Closed left ankle fracture Qualifiers: Encounter type: initial encounter Qualified Code(s): S82.892A - Other fracture of left lower leg, initial encounter for closed fracture Patient Disposition: [facility] Time of Disposition Decision: 16:29 Discharge Location: [facility] Condition: Good Mode of Transportation: EMS Procedures ED Ortho Fracture Reduction Orthopedic Fracture Reduction L ankle fracture and dislocation reduction: Time out performed: Yes Side: left Manipulation performed: Yes Fracture reduction location: tibia and fibula Analgesia: procedural sedation Technique: direct manipulation (traction) Anesthesia needed: Yes (80mg IV propofol ) Post-reduction x-rays demonstrate: acceptable reduction Post-reduction neuro exam: intact Post-reduction vascular exam: intact Splint applied: Yes (posterior short leg splint with stirrups ) Patient tolerated procedure: well and no complications
[2025-02-04] MEDS: HYDROCODONE/ACET 5-325 MG TABLET 2 TAB PO (17:04)
== END 2025-02-04 18:40 | disposition short-term general hospital (02) ==
PROVIDERS: Emergency Provider Student in an Organized Health Care Education/Training Program; PCP Family Medicine
DX: S82.852A Displaced trimalleolar fracture of left lower leg, initial encounter for closed fracture (principal); Z79.02 Long term (current) use of antithrombotics/antiplatelets; Z90.49 Acquired absence of other specified parts of digestive tract; Z90.710 Acquired absence of both cervix and uterus; W10.8XXA Fall (on) (from) other stairs and steps, initial encounter; M25.572 Pain in left ankle and joints of left foot
CPT/HCPCS: 27818; 36415; 73590; 73600; 80048; 85025; 85610; 85730; 86850; 86900; 86901; 96374; 96375; 96376; 99152; 99285; J2704; J3010

== ENCOUNTER 2025-02-24 18:50 | Emergency (ER) | payer MEDICARE, SELFPAY ==
--- OUTSIDE RECORDS SUMMARY | 2025-02-24 18:58 | XMS_ITS | CCD ---
Author Organization [facility] Care Team Providers Care Debate Director Name Role Phone Anitha Mcgregor MD Primary Care Provider [phone] Luli Roy MD (Hist) Unavailable [phone] ANITHA MCGREGOR Primary Care Unavailable BENJAMIN MOORE Attending Unavailable AIDEY, DR WELSH Consulting Unavailable HOY, DR WELSH Primary Care Unavailable HOY, DR WELSH Attending Unavailable HOY, DR WELSH Admitting Unavailable ZIEBER, DR TYRELL Alonzo Consulting Unavailable AIDEY, DR WELSH Consulting Unavailable AIDEY, DR WELSH Attending Unavailable HOY, [...] DR WELSH Admitting Unavailable FOLEYENEDELIA Consulting Unavailable KAROLINE, DR WELSH Consulting Unavailable KAROLINE, DR WELSH Primary Care Unavailable KAROLINE, DR WELSH Attending Unavailable HOY, DR WELSH Admitting Unavailable HOY, DR WELSH Consulting Unavailable HOY, DR WELSH Primary Care Unavailable HOTyron, DR WELSH Attending Unavailable HOY, DR WELSH Admitting Unavailable ZIEBER, DR TYRELL Alonzo Consulting Unavailable AIDEY, DR WELSH Consulting Unavailable AIDEY, DR WELSH Primary Care Unavailable AIDEY, DR WELSH Attending Unavailable HOY, DR WELSH Admitting Unavailable HOY, DR WELSH Consulting Unavailable KAROLINE, DR WELSH Primary Care Unavailable KAROLINE, DR WELSH Attending Unavailable KAROLINE, DR WELSH Admitting Unavailable ZIEBER, DR TYRELL Alonzo Consulting Unavailable FIGUEREDO, LUZ MARIA Consulting Unavailable ACACIA, DR HUMPHREYS Consulting Unavailable ACACIA, DR HUMPHREYS Attending Unavailable HAY, DR HUMPHREYS [...] Provider UnavailAnitha Montague MD Primary Care Provider [phone] Cindy Phan Admitting Unavailable Cindy Phan Attending Unavailable Cindy Phan Referring Unavailable ZaCindy rivero Admitting Unavailable Cindy Phan Attending Unavailable Cindy Phan Referring Unavailable Jim KEN, Oral Unavailable MIGUEL ÁNGEL ROSALES Attending Unavailable DIVYA DUDLEY Attending Unavailable MIGUEL ÁNGEL ROSALES Attending Unavailable JASVIR SMILEY Attending Unavailable MIGUEL ÁNGEL ROSALES Referring Unavailable CINDY PHAN Attending Unavailable DIVYA DUDLEY Attending Unavailable Anitha Mcgregor MD Primary Care Provider Oswaldo DEMARCO-SILVERWARE ASSEMBLER-Екатерина Caicedo Attending Provider Dax Matt DO Admit Provider Dax Matt DO Other Provider Ravin Campoverde MD Attending Provider [phone] Ravin Campoverde MD Other Provider Maricruz Tobias MD Other Provider [phone] Clint Sotelo DO Other Provider Ryan Henderson MD Other Provider [phone] Steven Ramsay DO Other Provider [phone] Anitha Mcgregor Primary Care Unavailable Oletano, Ravin Attending Unavailable Oletano, Ravin Admitting Unavailable Olexa, Ravin Consulting Unavailable TseringAlayna bradyDax Admitting Unavailabl e DoamejessicaorHeath E Attending Unavailab le Anitha Mcgregor Primary Care Unavailable Maricruz Tobias Consulting Unavailable Clint Sotelo Consulting Unavailable Ryan Henderson II Consulting Unavailperry e Steven Ramsay Consulting Unavailable Allergies Allergy Classification Reported Allergen(s) Allergy Type Date of Onset Reaction(s) Facility (16 sources) Acetaminophen / oxyCODONE; Translations: [OXYCODONE-ACETAMIN OPHEN] Drug Allergy 06-03-20 22 Other: See Peter, [facility] (3 sources) Adhesive Tape; Translations: [ADHESIVE TAPE (ROSINS)] Allergy to substance Other: See Comments [facility] (12 sources) Aspirin; Translations: [ASPIRIN] Drug Allergy 09-14-19 10 Unknown, Unknown Reaction, Anaphylaxis [facility] (3 sources) Butorphanol; Translations: [BUTORPHANOL TARTRATE] Drug Allergy 09-14-19 Other: See Comments [facility] (20 sources) Ciprofloxacin; Translations: [CIPROFLOXACIN] Drug Allergy 06-03-20 Other: See Peter [facility] (3 sources) Etodolac; Translations: [ETODOLAC] Drug Allergy 09-14-19 10 [facility] (3 sources) homatropine / HYDROcodone; Translations: [HYDROCODONE-HOMATR OPINE] Drug Allergy Other: See Comments [facility] (3 sources) HYDROmorphone; Translations: [HYDROMORPHONE (BULK)] Drug Allergy 04-10-20 11 [facility] (20 sources) Morphine; Translations: [MORPHINE] Drug Allergy 09-14-19 10 Unknown, Unknown Reaction, Abdominal Pain [facility] (3 sources) Promethazine; Translations: [PROMETHAZINE HCL] Drug Allergy 09-14-19 10 [facility] (1 source) Acetaminophen / oxyCODONE Drug Allergy [facility] (1 source) Aspirin Drug Allergy [facility] (5 sources) Butorphanol; Translations: [Stadol] Drug Allergy Unknown [facility] (1 source) Ciprofloxacin Drug Allergy [facility] (1 source) Desonide Drug Allergy [facility] (3 sources) Etodolac; Translations: [Lodine] Drug Allergy [facility] (1 source) homatropine Drug Allergy [facility] (3 sources) HYDROmorphone; Translations: [Dilaudid] Drug Allergy [facility] (3 sources) Levamisole; Translations: [Phenergan] Drug Allergy [facility] (1 source) Morphine Drug Allergy [facility] (1 source) Bleach (Sodium Hypochlorite) Drug allergy (disorder) 01-11-19 56 [facility] (20 sources) HYDROmorphone Drug Allergy 04-10-20 11 Rash [facility] [employer] Other (2 sources) Promethazine Drug Allergy Unknown [facility] [employer] Other (7 sources) traMADol Drug Allergy 01-24-20 25 Unknown, Unknown Reaction [facility] (13 sources) Aluminum aspirin Drug Allergy 09-14-19 10 Anaphylaxis [facility] Work Phone: (18 sources) Butorphanol Drug Allergy 09-14-19 10 Rash [facility] (13 sources) Etodolac Propensity to adverse reactions 09-14-19 10 Rash [facility] (18 sources) Promethazine Drug Allergy 09-14-19 10 Unknown Reaction [facility] (13 sources) Sulfamethoxazole / Trimethoprim Drug Allergy 06-03-20 22 [facility] (13 sources) Theophylline Drug Allergy 06-03-20 22 [facility] (2 sources) Acetaminophen / oxyCODONE; Translations: [Percocet 5/325] Drug Allergy [facility] (2 sources) Adhesive Tape; Translations: [Tape] Propensity to adverse reactions (disorder) [facility] (2 sources) homatropine / HYDROcodone; Translations: [Hydromet] Drug Allergy [facility] (14 sources) Citalopram Drug Allergy 06-20-19 25 Unknown Reaction [facility] (6 sources) hydrOXYzine; Translations: [hydroxyzine] Drug Allergy 01-24-20 Unknown Reaction [facility] (6 sources) Memantine; Translations: [memantine] Drug Allergy 01-24-20 Hives [facility] (6 sources) Metoclopramide; Translations: [metoclopramide] Drug Allergy 01-24-20 Unknown Reaction [facility] (6 sources) Niacin; Translations: [niacin] Drug Allergy 01-24-20 Unknown Reaction, pain [facility] (6 sources) Sulfamethoxazole; Translations: [sulfamethoxazole] Drug Allergy 01-24-20 Unknown Reaction, Rash [facility] (6 sources) SUMAtriptan; Translations: [sumatriptan] Drug Allergy 01-24-20 Unknown Reaction, Hypotension [facility] (6 sources) Trimethoprim; Translations: [trimethoprim] Drug Allergy 01-24-20 Unknown Reaction, Rash [facility] (1 source) Aspirin Drug Allergy 02-22-20 [facility] (1 source) Butorphanol Drug Allergy 02-22-20 [facility] (1 source) Ciprofloxacin Drug Allergy 02-22-20 [facility] (1 source) Citalopram Drug Allergy 02-22-20 [facility] (1 source) HYDROmorphone Drug Allergy 02-22-20 [facility] (1 source) Morphine Drug Allergy 02-22-20 [facility] (1 source) Promethazine Drug Allergy 02-22-20 [facility] (1 source) traMADol Drug Allergy 02-22-20 [facility] Rep[facility] Medications Current Medications Medication Drug Class(es) Dates Sig (Normalized) Sig (Original) acetaminophen 500 mg oral tablet (12 sources) take 1 tablet by mouth every six hours as needed acetaminophen (Tylenol) 500 MG tablet Take 500 mg by mouth every 6 (six) hours if needed Active acetaminophen 325 mg / HYDROcodone bitartrate 5 mg oral tablet (10 sources) Opioid Agonist Start: 02-14-2025 End: 02-21-2025 take 1 tablet by mouth twice daily as needed for pain Start: 02-14-2025 End: 02-14-2025 take 1 tablet by mouth twice daily as needed for pain Hydrocodone-Acetaminophen 2.5-325 mg tab let Discontinued 1 TAB PO Twice daily as needed for pain 10 February 14, 2025 February 14, 2025 5:05pm take 1 tablet by charmaine th every eight hours as needed HYDROcodone-acetaminophen (NORCO) 5-325 mg per tablet Take 1 tablet by mouth every 8 hours as needed. 0 Active Comment on above: Take 1 tablet by charmaine th every 8 hours as needed. acetaminophen 325 mg / oxyCODONE hydrochloride 5 mg oral tablet (2 sources) Opioid Agonist oxyCODONE-Aceta minophen 5-325 MG Oral for 7 Days Active cholecalciferol 0.01 mg oral tablet (4 sources) Vitamin D Start: take 1 tablet by mouth twice daily at mealtime clopidogrel 75 mg oral tablet (15 sources) P2Y12 Platelet Inhibitor Start: take 1 tablet by mouth two times weekly Start: 10-30-2023 Plavix 75 MG t ablet [...] evening. Active gabapentin 100 mg oral capsule (18 sources) Anti-epileptic Agent Start: 01-23-2025 take 1 capsule by mouth once daily at bedtime Start: 03-27-2023 gabapentin (Ne urontin) 100 MG [...] needed. levothyroxine sodium 0.025 mg oral tablet (10 sources) l-Thyroxine Start: 01-23-2025 End: 01-23-2025 take 1 tablet by mouth once daily liothyronine sodium 0.005 mg oral tablet (13 sources) l-Triiodothyronine Start: 04-24-2023 liothyronine (Cytomel) 5 MCG tablet 04/24/2023 Active melatonin 5 mg oral capsule (4 sources) Start: 02-05-2025 naratriptan 1 mg oral tablet (5 sources) Serotonin-1b and Serotonin-1d Receptor Agonist Start: 01-23-2025 omeprazole 20 mg delayed release oral capsule [...] 03/07/2024 Active take 1 tablet by charmaine every six hours as needed promethazine (PHENERGAN) [...] Drug Class(es) Dates Sig (Normalized) Sig (Original) amylase 601713 unt / lipase 83505 unt / protease 07230 unt delayed release oral capsule (2 sources) [...] affected ar ea twice daily. estrogens, conjugated (skilled nursing) 0.625 mg/ml vaginal cream (2 sources) Estrogen [...] the tongue before meals and at bedtime. oxyCODONE hydrochloride 5 mg oral tablet (4 sources) Opioid Agonist Start: 02-07-2025 End: 02-21-2025 take 1 tablet by mouth every four hours as needed for pain Oxycodone 5 mg Tablet Discontinued 5 MG PO Every 4 hours as needed for Pain Scale 4 - 7 30 5 February 07, 2025 February 21, 2025 9:18am predniSONE 10 mg oral tablet (2 sources) [...] Translations: [GERD WITHOUT ESOPHAGITIS] Onset: 06-19-19 Chronic Fracture of lower limb (12 sources) Closed trimalleolar fracture of left ankle; Translations: [Displaced trimalleolar fracture of left lower leg, initial encounter for closed fracture] Onset: 02-22-2002-04-2025 Episodic Headache; including migraine (5 sources) Migraine; Translations: [Migraine, unspecified, not intractable, without status migrainosus] Onset: 02-05-2002-07-2025 Chronic Headache; including migraine (2 sources) Pain [...] VIR OTH RSP MANF] Onset: 06-19-19 Episodic Menopausal disorders (1 source) Hormone replacement therapy; Translations: [Hormone replacement therapy] Onset: 02-05-20 Episodic Nausea and vomiting (1 source) Nausea with vomiting, unspecified; Translations: [NAUSEA WITH VOMITING UNSPECIFIED] Onset: 06-19-19 Episodic Osteoarthritis (4 sources) Arthritis of left foot; Translations: [Primary osteoarthritis, left ankle and foot] 02-21-2025 Chronic Other aftercare (1 source) 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; Translations: [OTH ASSISTED CURRENT DRUG THERAPY] Onset: 06-19-19 Episodic Other aftercare (6 sources) Removal of sutures done; Translations: [Encounter for removal of sutures] 02-21-2025 Episodic Other connective tissue disease (20 sources) Fibromyalgia; Translations: [Fibromyalgia] Onset: 09-21-19 10 09-20-2009 Episodic Other connective tissue disease (2 sources) Fibromyalgia; Translations: [Fibromyalgia] Onset: 09-21-19 Episodic Other connective tissue disease (3 sources) Foot pain; Translations: [Pain in left foot] 02-21-2025 Episodic Other connective tissue disease (1 source) Pain in left foot; Translations: [Pain in left foot] Onset: 02-22-20 Episodic Other connective tissue disease (1 source) Pain of left calf; Translations: [Pain in left lower leg] 02-23-2025 Episodic Other gastrointestinal disorders (2 sources) Irritable bowel syndrome without diarrhea; Translations: [IRRITABLE BOWEL SYND W/O DIARRHEA] Onset: 06-19-19 Chronic Other gastrointestinal disorders (4 sources) Irritable bowel syndrome; Translations: [Irritable bowel syndrome without diarrhea] 02-07-2025 Chronic Other gastrointestinal disorders (2 sources) Diarrhea; Translations: [Diarrhea] Episodic Other inflammatory condition of skin (1 source) Psoriasis, unspecified; Translations: [PSORIASIS UNSPECIFIED] Onset: 06-19-19 Chronic Other nervous system disorders (12 sources) Bilateral carpal tunnel syndrome; Translations: [Carpal tunnel syndrome, bilateral upper limbs] Onset: 10-08-1910-08-2023 Chronic Other nervous system disorders (8 sources) H/O: Disorder; Translations: [Personal history of other diseases of the nervous system and sense organs] 02-04-2025 Episodic Other nervous system disorders (1 source) Personal history of other diseases of the nervous system and sense organs; Translations: [Personal history of other diseases of the nervous system and sense organs] Onset: 02-05-20 Episodic Other nutritional; endocrine; and metabolic disorders (1 [...] UTERUS] Onset: 06-19-19 Episodic Residual codes; unclassified (12 sources) Memory impairment; Translations: [Other amnesia] 07-20-2024 Episodic Residual codes; unclassified (8 sources) FH: Alzheimer's disease; Translations: [Family history of epilepsy and other diseases of the nervous system] 01-23-2025 Episodic Residual codes; unclassified (6 sources) Postprocedural state finding; Translations: [Other specified postprocedural states] 02-17-2025 Episodic Residual codes; unclassified (6 sources) History of operation on musculoskeletal system; Translations: [Other specified postprocedural states] 02-17-2025 Episodic Comment on above: open reduction inter nal fixation left trimalleolar ankle fracture DOS 02/06/25. Residual codes; unclassified (1 source) Other specified postprocedural states; Translations: [Other specified postprocedural states] Onset: 02-22-20 Episodic Spondylosis; intervertebral disc disorders; other back problems (11 sources) Other spondylosis with radiculopathy, cervical region; Translations: [Cervical spondylosis without myelopathy] Onset: 08-15-1906-17-2024 Chronic Unclassified (2 sources) COUGH, UNSPECIFIED; Translations: [COUGH, UNSPECIFIED] Onset: 06-19-19 Unclassified (1 source) CONTACT W/AND (SUSP) EXPOS COVID-19; Translations: [CONTACT W/AND (SUSP) EXPOS COVID-19] Onset: 02-13-20 Unclassified (8 sources) Post surgery appointment. He will remove your sutures at this appointment. Viral infection (1 source) COVID-19; Translations: [COVID-19] [...] Translations: [HYPOTENSION UNSPECIFIED] Onset: 02-12-2022 Episodic Other gastrointestinal disorders (1 source) Diarrhea, [...] Test Name Value Interpretation Reference Range Facility X-ray reportOrdered By: Guerrero Gleason on 02-21-2025 Study report [facility] [address] [place] [address] XRay Report Signed Patient: Skip Hong MR#: [id number] : 1955 Acct:[id number] Age/Sex: 70 / F ADM Date: 5 Loc: [facility] [place]: Type: [facility] Attending Dr: Ravin Campoverde MD Copies to: Ravin Campoverde MD~ Ordering Provider: Ravin Campoverde MD Date of Service: 02/21/25 XR/XR ankle LT min 3V*: Z98.890 - Other specified postprocedural states ([id number]) XR/XR foot LT min 3V*: M79.672 - [...] PROCESS. Impression dictated by: Alex Gleason Jr., DKimOKim 02/21/2025 11:18 AM Dictation Location: [place] [address] Transcribed By: [facility] 02/21/251117 Dictated By: Alex Gleason Jr, DO 02/21/25 1116 Signed By: 02/21/25 1118 [facility] XR foot LT min 3V*on 025 XR foot LT min 3V* [facility] [address] [place] [address] XRay Report Signed Patient: Skip Hong MR#: [id number] : 1955 Acct:[id number] Age/Sex: 70 / F ADM Date: 02/21/25 Loc: [facility] Room: Type: [facility] Attending Dr: Ravin Campoverde MD Copies to: Ravin Campoverde MD Ordering Provider: Ravin Campoverde MD Date of Service: 02/21/25 XR/XR ankle LT min 3V*: Z98.890 - Other specified postprocedural states ([id number]) XR/XR foot LT min 3V*: M79.672 - [...] PROCESS. Impression dictated by: Alex Gleason Jr., D.OKim 02/21/2025 11:18 AM Dictation Location: [place] [address] Transcribed By: [facility] 02/21/25 1118 Dictated By: Alex Gleason Jr, DO 02/21/25 1116 Signed By: 02/21/25 1118 Normal The Replaced By [facility] XR ankle LT 2Von 02-09-2025 XR ankle LT 2V [facility] [place] [place] [address] XRay Report Signed Patient: Skip Hong MR#: [id number] : 1955 Acct:[id number] Age/Sex: 70 / F ADM Date: 02/04/25 Loc: Room: [address] [place] [address] Type: DIS IN Attending Dr: Heath Saavedra MD Copies to: MD Ravin Mejia MD Ordering Provider: Ravin Campoverde MD Date of Service: 02/06/25 XR/XR ankle LT 2V: LEFT ANKLE ORIF Intraoperative study. Reason for exam: ORIF left ankle Findings: 10 images were obtained intraoperatively. Hardware was placed Cumulative Air Kerma in mGy: 1.90 mGy XR/XR ankle LT 2V Impression: Intraoperative study. Impression dictated by: Alex Gleason Jr., D.O. 02/09/2025 1:19 PM Dictation Location: [place] [address] Transcribed By: [facility] 02/09/251318 Dictated By: Alex Gleason Jr, DO 02/09/251318 Signed By: 02/09/25 131 Normal The Replaced By [facility] Basic Metabolic Panelon 01-14 Anion gap [Moles/Vol] 12.6 mmol/L Normal 6.0-15.0 Th e Replaced By [facility] Comment on above: Performed By: #### S CAN CBC, BMP #### [facility] [address] [place] [address] [place] Calcium [Mass/Vol] 9.1 mg/dL Normal 8.6-10.3 The [facility] Comment on above: Performed By: #### S CAN CBC, BMP #### [facility] [address] [place] [address] [place] Chloride [Moles/Vol] 102 mmol/L Normal 98-107 The Replaced By [facility] Comment on above: Performed By: #### S CAN CBC, BMP #### [facility] [address] [place] [address] [place] CO2 [Moles/Vol] 24.9 mmol/L Normal 21.0-31.0 The [facility] Comment on above: Performed By: #### S CAN CBC, BMP #### [facility] [address] [place] [id number] [place] Creatinine [Mass/Vol] 0.84 mg/dL Normal 0.60-1.20 The Replaced By [facility] Comment on above: Performed By: #### S CAN CBC, BMP #### [facility] [address] [place] [address] [place] Creatinine Clr Calc Pharmacy 56.88 Normal The Replaced By [facility] Comment on above: Result Comment: PERF ORMED BY: [place] [address] PATHOLOGIST THERMIT WELDING MACHINE OPERATOR MELVIN RICHARDS M.D. Performed By: #### S CAN CBC, BMP #### [facility] [address] [place] [address] [place] GFR/1.73 sq M.predicted MDRD (S/P/Bld) [Vol rate/Area] mL/min/{1.73_m2} Normal The Replaced By [facility] Comment on above: Performed By: #### S CAN CBC, BMP #### [address] Glucose [Mass/Vol] 111 mg/dL High 70-100 The [facility] Comment on above: Result Comment: [facility] Glucose Reference Range is dependent on time and content of last meal. Glucose of more than 200 mg/dL in a nonstressed, ambulatory subject supports the diagnosis of Diabetes Mellitus. ADA recommended reference range Performed By: #### S CAN CBC, BMP #### [address] Potassium [Moles/Vol] 4.5 mmol/L Normal 3.5-5.1 The Replaced By [facility] Comment on above: Result Comment: Hemo lysis is present at a level that could interfere with the result. Contact lab if redraw is required Performed By: #### S CAN CBC, BMP #### [address] Sodium [Moles/Vol] 135 mmol/L Low 136-145 The [facility] Comment on above: Performed By: #### S CAN CBC, BMP #### [address] Urea nitrogen [Mass/Vol] 11 mg/dL Normal 7-25 The Replaced By [facility] Comment on above: Performed By: #### S CAN CBC, BMP #### [place] [address] [place] Scan and CBCon 02-07-2025 Anisocytosis Ql (Bld) Slight Normal The Replaced By [facility] Comment on above: Performed By: #### S CAN CBC, BMP #### [place] [address] [place] Basophils (Bld) [#/Vol] 0.1 10*3/uL Normal 0.0-0.2 The Replaced By [facility] Comment on above: Performed By: #### S CAN CBC, BMP #### [address] [place] [address] [place] Basophils/100 WBC (Bld) 0.4 % Normal . The Replaced By [facility] Comment on above: Performed By: #### S CAN CBC, BMP #### [address] Eosinophils (Bld) [#/Vol] 0.0 10*3/uL Normal 0.0-0.45 The Replaced By [facility] Comment on above: Performed By: #### S CAN CBC, BMP #### [address] Eosinophils/100 WBC (Bld) 0.0 % Normal . The Replaced By [facility] Comment on above: Performed By: #### S CAN CBC, BMP #### [address] Erythrocyte distribution width (RBC) [Ratio] 13.7 % Normal 11.9-15.3 The Replaced By [facility] Comment on above: Performed By: #### S CAN CBC, BMP #### [address] Hematocrit (Bld) [Volume fraction] 36.3 % Normal 34.0-46.4 The Replaced By [facility] Comment on above: Performed By: #### S CAN CBC, BMP #### [address] Hemoglobin (Bld) [Mass/Vol] 12.4 g/dL Normal 11.8-15.4 The Replaced By [facility] Comment on above: Performed By: #### S CAN CBC, BMP #### [address] Lymphocytes (Bld) [#/Vol] 1.5 10*3/uL Normal 1.00-4.8 The Replaced By [facility] Comment on above: Performed By: #### S CAN CBC, BMP #### [address] Lymphocytes/100 WBC (Bld) 9.6 % Normal . The Replaced By [facility] Comment on above: Performed By: #### S CAN CBC, BMP #### [address] MCH (RBC) [Entitic mass] 30.3 pg Normal 24.7-34.3 The Replaced By [facility] Comment on above: Performed By: #### S CAN CBC, BMP #### [address] MCV (RBC) [Entitic vol] 88.8 fL Normal 80-100 The [facility] [facility] Comment on above: Performed By: #### S CAN CBC, BMP #### [address] Mean Corpuscular HGB Conc 34.1 g/dL Normal 32.0-35.0 The Replaced By [facility] Comment on above: Performed By: #### S CAN CBC, BMP #### [address] Microcytosis Slight Normal The [facility] Comment on above: Performed By: #### S CAN CBC, BMP #### [address] Monocytes (Bld) [#/Vol] 1.9 10*3/uL High 0.0-0.8 The Replaced By [facility] Comment on above: Performed By: #### S CAN CBC, BMP #### [address] Monocytes/100 WBC (Bld) 12.6 % Normal . The Replaced By [facility] Comment on above: Performed By: #### S CAN CBC, BMP #### [address] Neutrophils (Bld) [#/Vol] 11.7 10*3/uL High 1.8-7.7 The Replaced By [facility] Comment on above: Performed By: #### S CAN CBC, BMP #### [address] Neutrophils/100 WBC (Bld) 77.4 % Normal . The Replaced By [facility] Comment on above: Performed By: #### S CAN CBC, BMP #### [address] NRBC% 0.1 /100{WBC} Normal 0-0.5 The [facility] Comment on above: Performed By: #### S CAN CBC, BMP #### [address] Platelet Estimate Normal Normal Normal The [facility] Comment on above: Performed By: #### S CAN CBC, BMP #### [address] Platelet mean volume (Bld) [Entitic vol] 7.7 fL Normal 6.3-10.7 The [facility] Comment on above: Performed By: #### S CAN CBC, BMP #### [address] Platelet Morphology Normal Normal Normal The [facility] Comment on above: Result Comment: PERF ORMED BY: [place] [address] PATHOLOGIST THERMIT WELDING MACHINE OPERATOR MELVIN RICHARDS M.D. Performed By: #### S CAN CBC, BMP #### [address] Platelets (Bld) [#/Vol] 334 10*3/uL Normal 150-450 The Replaced By [facility] Comment on above: Performed By: #### S CAN CBC, BMP #### [address] RBC (Bld) [#/Vol] 4.09 10*6/uL Normal 3.60-5.00 The [facility] Comment on above: Performed By: #### S CAN CBC, BMP #### [place] [address] [place] WBC (Bld) [#/Vol] 15.1 10*3/uL High 3.8-11.6 The [facility] Comment on above: Performed By: #### S CAN CBC, BMP #### [address] White Blood Count 15.1 [CFU]/mL High 3.8-11.6 The Replaced By [facility] Comment on above: Performed By: #### S CAN CBC, BMP #### [address] [place] [address] [facility] CT ankle LT wo conon 025 CT ankle LT wo con [facility] Main [place] [address] [place] [id number] Scan Report Signed Patient: Skip Hong MR#: [id number] : 1955 Acct:[id number] Age/Sex: 70 / F ADM Date: 02/04/25 Loc: Room: [address] [place] [address] Type: ADM IN Attending Dr: Dax Matt DO Copies to: DO Ravin Lowe MD Ordering Provider: Ravin Campoverde MD Date of Service: 02/05/25 CT/CT ankle LT wo con: fx CT ankle LT wo con 02/05/2025 10:16 AM SIGNS AND SYMPTOMS: Evaluate left ankle fracture TECHNIQUE: Multidetector CT axial slices of the left ankle without IV contrast. Multiplanar and 3-D reformats were performed and viewed on a separate workstation and reviewed to further define anatomy and possible pathology. CT was performed with one or more of the following dose reduction techniques: Automated exposure control, adjustment of the mA and/or kV according to patient size, or use of iterative reconstruction technique. COMPARISON: 02/04/2025 FINDINGS: There is a trimalleolar fracture of the left ankle extending through the articular surface of the distal tibia. The medial malleolus fragment is minimally displaced. The lateral malleolus fragment is dorsally displaced by 6 mm. There is 4 mm of dorsal displacement of the posterior tibial fragment. The tibiotalar joint space is relatively normal in alignment. The talar dome is intact. No additional fractures are noted. There is diffuse soft tissue swelling. CT/CT ankle LT wo con IMPRESSION: Intra-articular trimalleolar fracture of the left ankle as described above. Impression dictated by: Oral Shaffer M.D. 02/05/2025 4:39 PM Dictation Location: [place] [address] Transcribed By: [facility] 02/05/25 5026 Dictated By: Oral Shaffer II, MD 02/05/25 1636 Signed By: 02/05/25 1639 Normal The Replaced By [facility] ECG 12 lead ECGon 02-05-2025 ECG 12 lead ECG [facility] Main [place] [address] [place] [address] Electrocardiograph Report Signed Patient: Skip Hong MR#: [id number] : 1955 Acct:[id number] Age/Sex: 70 / F ADM Date: 02/04/25 Loc: Room: [address] [place] [address] Type: ADM IN Attending Dr: Dax Matt DO Ordering Provider: Dax Matt DO Date of Service: 02/05/25 ECG/ECG 12 lead ECG: pre-op test Copies to: Test Reason : Blood Pressure : */* mmHG Vent. Rate : 69 BPM Atrial Rate : 69 BPM P-R Int : 136 ms QRS Dur : 80 ms QT Int : 412 ms P-R-T Axes : 53 -14 28 degrees QTcB Int : 441 ms Normal sinus rhythm with sinus arrhythmia Normal ECG No previous ECGs available Confirmed by WOODROW PARISI, CINDY ([id number]) on 02/05/2025 9:49:35 AM Referred By: Electronically Signed By: CINDY FORRESTER MD Transcribed By: MUS Signed By Cindy Forrester MD 0 02/05/25 0949 Normal The Replaced By [facility] Basic Metabolic Panelon 01-14 Anion gap [Moles/Vol] 10.6 mmol/L Normal 6.0-15.0 Th e Replaced By [facility] Comment on above: Performed By: #### V [id number], PTT, MG, BMP, CBC, PT #### [facility] [address] [place] [address] [place] Calcium [Mass/Vol] 8.9 mg/dL Normal 8.6-10.3 The [facility] Comment on above: Performed By: #### V [id number], PTT, MG, BMP, CBC, PT #### [facility] [address] [place] [id number] [place] Chloride [Moles/Vol] 112 mmol/L High 98-107 The Replaced By [facility] Comment on above: Performed By: #### V [id number], PTT, MG, BMP, CBC, PT #### [facility] [address] CO2 [Moles/Vol] 23.0 mmol/L Normal 21.0-31.0 The [facility] Comment on above: Performed By: #### V [id number], PTT, MG, BMP, CBC, PT #### [facility] [address] Creatinine [Mass/Vol] 0.96 mg/dL Normal 0.60-1.20 The Replaced By [facility] Comment on above: Performed By: #### V [id number], PTT, MG, BMP, CBC, PT #### [facility] [address] [place] [address] [place] Creatinine Clr Calc Pharmacy 50.22 Normal The Replaced By [facility] Comment on above: Performed By: #### V [id number], PTT, MG, BMP, CBC, PT #### [address] GFR/1.73 sq M.predicted MDRD (S/P/Bld) [Vol rate/Area] mL/min/{1.73_m2} Normal The Replaced By [facility] Comment on above: Performed By: #### V [id number], PTT, MG, BMP, CBC, PT #### [address] Glucose [Mass/Vol] 108 mg/dL High 70-100 The [facility] Comment on above: Result Comment: [place] Glucose Reference Range is dependent on time and content of last meal. Glucose of more than 200 mg/dL in a nonstressed, ambulatory subject supports the diagnosis of Diabetes Mellitus. ADA recommended reference range Performed By: #### V [id number], PTT, MG, BMP, CBC, PT #### [facility] [address] Potassium [Moles/Vol] 3.6 mmol/L Normal 3.5-5.1 The Replaced By [facility] Comment on above: Performed By: #### V [id number], PTT, MG, BMP, CBC, PT #### [address] Sodium [Moles/Vol] 142 mmol/L Normal 136-145 The [facility] Comment on above: Performed By: #### V [id number], PTT, MG, BMP, CBC, PT #### [address] Urea nitrogen [Mass/Vol] 12 mg/dL Normal 7-25 The Replaced By [facility] Comment on above: Performed By: #### V [id number], PTT, MG, BMP, CBC, PT #### [address] Complete Blood Count Auto Di ffon 02-04-2025 Basophils (Bld) [#/Vol] 0.1 10*3/uL Normal 0.0-0.2 The Replaced By [facility] Comment on above: Result Comment: PERF ORMED BY: [place] [address] PATHOLOGIST THERMIT WELDING MACHINE OPERATOR MELVIN RICHARDS M.D. Performed By: #### V [id number], PTT, MG, BMP, CBC, PT #### [address] Basophils/100 WBC (Bld) 0.9 % Normal . The Replaced By [facility] Comment on above: Performed By: #### V [id number], PTT, MG, BMP, CBC, PT #### [address] Eosinophils (Bld) [#/Vol] 0.0 10*3/uL Normal 0.0-0.45 The Replaced By [facility] Comment on above: Performed By: #### V [id number], PTT, MG, BMP, CBC, PT #### [address] Eosinophils/100 WBC (Bld) 0.5 % Normal . The Replaced By [facility] Comment on above: Performed By: #### V [id number], PTT, MG, BMP, CBC, PT #### [address] Erythrocyte distribution width (RBC) [Ratio] 13.8 % Normal 11.9-15.3 The Replaced By [facility] Comment on above: Performed By: #### V [id number], PTT, MG, BMP, CBC, PT #### [address] Hematocrit (Bld) [Volume fraction] 38.8 % Normal 34.0-46.4 The Replaced By [facility] Comment on above: Performed By: #### V [id number], PTT, MG, BMP, CBC, PT #### [address] Hemoglobin (Bld) [Mass/Vol] 13.2 g/dL Normal 11.8-15.4 The Replaced By [facility] Comment on above: Performed By: #### V [id number], PTT, MG, BMP, CBC, PT #### [address] Lymphocytes (Bld) [#/Vol] 2.5 10*3/uL Normal 1.00-4.8 The Replaced By [facility] Comment on above: Performed By: #### V [id number], PTT, MG, BMP, CBC, PT #### [address] Lymphocytes/100 WBC (Bld) 23.7 % Normal . The Replaced By [facility] Comment on above: Performed By: #### V [id number], PTT, MG, BMP, CBC, PT #### [address] MCH (RBC) [Entitic mass] 30.7 pg Normal 24.7-34.3 The Replaced By [facility] Comment on above: Performed By: #### V [id number], PTT, MG, BMP, CBC, PT #### [address] MCV (RBC) [Entitic vol] 90.0 fL Normal 80-100 The Replaced By [facility] Comment on above: Performed By: #### V [id number], PTT, MG, BMP, CBC, PT #### [address] Mean Corpuscular HGB Conc 34.1 g/dL Normal 32.0-35.0 The Replaced By [facility] Comment on above: Performed By: #### V [id number], PTT, MG, BMP, CBC, PT #### [address] Monocytes (Bld) [#/Vol] 1.3 10*3/uL High 0.0-0.8 The Replaced By [facility] Comment on above: Performed By: #### V [id number], PTT, MG, BMP, CBC, PT #### [address] Monocytes/100 WBC (Bld) 12.2 % Normal . The Replaced By [facility] Comment on above: Performed By: #### V [id number], PTT, MG, BMP, CBC, PT #### [address] Neutrophils (Bld) [#/Vol] 6.5 10*3/uL Normal 1.8-7.7 The Replaced By [facility] Comment on above: Performed By: #### V [id number], PTT, MG, BMP, CBC, PT #### [place] [address] [place] Neutrophils/100 WBC (Bld) 62.7 % Normal . The Replaced By [facility] Comment on above: Performed By: #### V [id number], PTT, MG, BMP, CBC, PT #### [place] [address] [place] NRBC% 0.1 /100{WBC} Normal 0-0.5 The [facility] Comment on above: Performed By: #### V [id number], PTT, MG, BMP, CBC, PT #### [place] [address] [place] Platelet mean volume (Bld) [Entitic vol] 7.4 fL Normal 6.3-10.7 The [facility] Comment on above: Performed By: #### V [id number], PTT, MG, BMP, CBC, PT #### [place] [address] [place] Platelets (Bld) [#/Vol] 318 10*3/uL Normal 150-450 The Replaced By [facility] Comment on above: Performed By: #### V [id number], PTT, MG, BMP, CBC, PT #### [address] RBC (Bld) [#/Vol] 4.31 10*6/uL Normal 3.60-5.00 The [facility] Comment on above: Performed By: #### V [id number], PTT, MG, BMP, CBC, PT #### [address] WBC (Bld) [#/Vol] 10.4 10*3/uL Normal 3.8-11.6 The [facility] Comment on above: Performed By: #### V [id number], PTT, MG, BMP, CBC, PT #### [address] White Blood Count 10.4 [CFU]/mL Normal 3.8-11.6 The Replaced By [facility] Comment on above: Performed By: #### V [id number], PTT, MG, BMP, CBC, PT #### [address] Magnesiumon 02-04-2025 Magnesium [Mass/Vol] 1.9 mg/dL Normal 1.9-2.7 The Replaced By [facility] Comment on above: Performed By: #### V [id number], PTT, MG, BMP, CBC, PT ####[facility] [place] [address] Partial Thromboplastin Timeo n 02-04-2025 aPTT Coag (Bld) [Time] 28.2 s Normal 25.1-36.5 The Replaced By [facility] Comment on above: Result Comment: A he matocrit value greater than 55% may lead to inaccurate results in coagulation testing. Patients having hematocrit values >55% require a special collection tube for coagulation studies. Please contact the laboratory at [phone] for redraw instructions. PERFORMED BY: [place] [address] PATHOLOGIST THERMIT WELDING MACHINE OPERATOR MELVIN RICHARDS M.D. Performed By: #### V [id number], PTT, MG, BMP, CBC, PT #### [facility] [address] [place] [address] [facility] Prothrombin Time INRon 02-04 INR Coag (PPP) [Relative time] 0.9 {INR} Normal The Replaced By [facility] Comment on above: Result Comment: INR Therapeutic Range A) Pre- and Peroperative OAT started two weeks before surgery. NOT HIP SURGERY: 1.5 - 2.5 HIP SURGERY: 2 - 3 B) Primary and secondary prevention of venous THROMBOSIS: 2 - 3 C) Active venous thrombosis, pulmonary embolism and prevention of recurrent venous thrombosis: 2 - 3 D) Prevention of arterial thromboembolism including patients with mechanical heart valves: 3 - 4.5 Performed By: #### V [id number], PTT, MG, BMP, CBC, PT #### [address] [address] [facility] PT Coag (PPP) [Time] 10.7 s Normal 9.0-12.9 The Replaced By [facility] Comment on above: Result Comment: A he matocrit value greater than 55% may lead to inaccurate results in coagulation testing. Patients having hematocrit values >55% require a special collection tube for coagulation studies. Please contact the laboratory at [phone] for redraw instructions. Performed By: #### V [id number], PTT, MG, BMP, CBC, PT #### [address] [address] [facility] Vitamin D 25 Hydroxy Totalon 02-04-2025 Vitamin D 25 Hydroxy Total 22.5 ng/mL Low 30-100 The Replaced By [facility] Comment on above: Result Comment: [place] MIN D STATUS 25(OH)VITAMIN D RANGE (ng/mL) Deficient <20 Insufficient 20 to <30 Sufficient 30 to 100 Reference: Ernesto MF,[place], Gladys HOUSTON, et al. Evaluation,treatment, and prevention of vitamin D deficiency; an Endocrine Society clinical practice guideline. JCEM. 2010; 96(7):1911-30. PERFORMED BY: [place] [id number] PATHOLOGIST THERMIT WELDING MACHINE OPERATOR MELVIN RICHARDS M.D. Performed By: #### V [id number], PTT, MG, BMP, CBC, PT ####[facility] [id number] [place] [id number] [facility] XR Chest 2 Viewson XR Chest 2 [...] mGy = na DAP = na Normal [facility] BMPon 01-18-2024 Anion gap [Moles/Vol] 10 mmol/L Normal 6-16 [facility] Comment on above: Performed By: #### 2 [id number] #### [facility] [address] [place] [address] Calcium [Mass/Vol] 9.6 mg/dL Normal 8.9-11.1 [facility] Comment on above: Performed By: #### 2 [id number] #### [facility] [address] [place] [address] Chloride [Moles/Vol] 107 mmol/L Normal 101-[address] [facility] Comment on above: Performed By: #### 2 [id number] #### [facility] [address] [place] [address] CO2 [Moles/Vol] 26 mmol/L Normal 21-31 [facility] Comment on above: Performed By: #### 2 [id number] #### [facility] [address] [place] [address] Creatinine [Mass/Vol] 0.9 mg/dL Normal 0.5-1.3 [facility] Comment on above: Performed By: #### 2 [id number] #### [facility] [address] [place] [address] Glucose [Mass/Vol] 95 mg/dL Normal 55-199 [facility] Comment on above: Performed By: #### 2 [id number] #### [facility] [address] [place] [address] Potassium [Moles/Vol] 3.9 mmol/L Normal 3.5-5.3 [facility] Comment on above: Performed By: #### 2 [id number] #### [facility] [address] [place] [address] Sodium [Moles/Vol] 139 mmol/L Normal 135-145 [facility] Comment on above: Performed By: #### 2 [id number] #### [facility] [address] [place] [address] Urea nitrogen [Mass/Vol] 9 mg/dL Normal 5-21 [facility] Comment on above: Performed By: #### 2 [id number] #### [facility] [address] [place] [address] Urea nitrogen/Creatinine [Mass ratio] 10 No Units Normal 10-20 [facility] Comment on above: Performed By: #### 2 [id number] #### [facility] [address] [place] [address] CBC w/Indiceson 01-18-2024 Erythrocyte distribution width (RBC) [Ratio] 14.5 % High 10.9-14.2 [facility] Comment on above: Performed By: #### 2 [id number] #### [facility] [address] [place] [address] Hematocrit (Bld) [Volume fraction] 43.1 % Normal 34.0-46.0 [facility] Comment on above: Performed By: #### 2 668009 #### [facility] [address] [place] [address] Hemoglobin (Bld) [Mass/Vol] 14.5 g/dL Normal 12.0-16.0 [facility] Comment on above: Performed By: #### 2 [id number] #### [facility] [address] [place] [address] MCH (RBC) [Entitic mass] 30.6 pg Normal 27.0-34.0 [facility] Comment on above: Performed By: #### 2 [id number] #### [facility] [address] [place] [address] MCHC (RBC) [Mass/Vol] 33.6 g/dL Normal 31.4-36.0 [facility] Comment on above: Performed By: #### 2 [id number] #### [facility] [address] [place] [address] MCV (RBC) [Entitic vol] 91.0 fL Normal 80.0-100.0 [facility] Comment on above: Performed By: #### 2 728364 #### [facility] [address] [place] [address] Platelet mean volume (Bld) [Entitic vol] 7.5 fL Normal 6.4-10.8 [facility] Comment on above: Performed By: #### 2 644593 #### [facility] [address] [place] [address] Platelets (Bld) [#/Vol] 300.0 E9/L Normal 150.0-500.0 [facility] Comment on above: Performed By: #### 2 292320 #### [facility] [address] [place] [address] RBC (Bld) [#/Vol] 4.7 E12/L Normal 4.3-5.9 [facility] Comment on above: Performed By: #### 2 003175 #### [facility] [address] [place] [address] RBC size Nom (Bld) NORMAL Invalid Interpretation Code [facility] Comment on above: Performed By: #### 2 [id number] #### [facility] [address] [place] [address] WBC corrected for nucl RBC Auto (Bld) [#/Vol] 5.9 E9/L Normal 4.0-11.0 [facility] Comment on above: Performed By: #### 2 904295 #### [facility] [address] [place] [address] eGFRon 01-18-2024 eGFR 70 mL/min/1.73 m2 Normal >=59 [facility] Comment on above: Order Comment: Order added by Discern Expert. Performed By: #### 1 [id number] #### [facility] [address] [place] [address] AMYLASEon 07-01-2022 Amylase [Catalytic activity/Vol] 117 U/L Critically high 25-115 [facility] Comment on above: Performed By: #### T SH, T7, ALIYAH, LIPA, CMP ####[facility] [address] [place], [place] [address]Dr. Lawrence Wayne CBC AUTO DIFFon 07-01-2022 BASO # 0.1 103/ul Normal 0.0-0.1 [facility] Comment on above: Performed By: #### C BC ####[facility] [address] [place] [address]Dr. Laraantonio Wayne Basophils/100 WBC (Bld) 0.6 % Normal 0.2-2.0 The [facility] Comment on above: Performed By: #### C BC ####[facility] [address] [place] [address]Dr. Lawrence Wayne EO # 0.1 103/ul Normal 0.0-0.7 [facility] Comment on above: Performed By: #### C BC ####[facility] [address] [place], [place] [address]Dr. Lawrence Wayne Eosinophils/100 WBC (Bld) 0.7 % Critically low 0.9-7.0 [facility] Comment on above: Performed By: #### C BC ####[facility] [address] [place] [id number]. Lawrence Wayne Erythrocyte distribution width (RBC) [Ratio] 13.6 % Normal 11.0-15.0 [facility] Comment on above: Performed By: #### C BC ####[facility] [address] [place] [address]Dr. Lawrence Wayne Hematocrit (Bld) [Volume fraction] 45.6 % Normal 36.0-48.0 [facility] Comment on above: Performed By: #### C BC ####[facility] [address] [place] [address]Dr. Lawrence Wayne Hemoglobin (Bld) [Mass/Vol] 15.4 g/dL Normal 12.0-16.0 [facility] Comment on above: Performed By: #### C BC ####[facility] [address] [place], [place] [address]Dr. Lawrence Wayne IG # 0.03 10e3/ul Normal 0.00-0.03 [facility] Comment on above: Performed By: #### C BC ####[facility] [address] [place], [place] [address]Dr. Lawrence Wayne IG % 0.4 % Normal 0.0-0.5 [facility] Comment on above: Performed By: #### C BC ####[facility] [address] [place] [address]Dr. Lawrence Wayne LYMPH # 2.8 103/ul Normal 1.2-3.8 [facility] Comment on above: Performed By: #### C BC ####[facility] [address] [place] [address]Dr. Lawrence Wayne Lymphocytes/100 WBC (Bld) 33.5 % Normal 20.5-60.0 [facility] Comment on above: Performed By: #### C BC ####[facility] [address] [place] [address]Dr. Lawrence Wayne MANUAL DIFF REQ NO Normal [facility] Comment on above: Performed By: #### C BC ####[facility] [address] [place] [id number]. Lawrence Wayne MCH (RBC) [Entitic mass] 30.1 pg Normal 26.7-34.0 [facility] Comment on above: Performed By: #### C BC ####[facility] [address] [place] [address]Dr. Lawrence Wayne MCHC (RBC) [Mass/Vol] 33.8 g/dL Normal 29.9-35.2 [facility] Comment on above: Performed By: #### C BC ####[facility] [address] [place] [address]Dr. Lawrence Wayne MCV (RBC) [Entitic vol] 89.2 fL Normal 81.0-99.0 [facility] Comment on above: Performed By: #### C BC ####[facility] [address] [place], [place] [address]Dr. Laraantonio Tone MONO # 0.8 103/ul Normal 0.3-0.8 [facility] [facility] Comment on above: Performed By: #### C BC ####[facility] [address] [address]Dr. Laraantonio Wayne Monocytes/100 WBC (Bld) 9.3 % Normal 1.7-12.0 [facility] Comment on above: Performed By: #### C BC ####[facility] Byckqwk[address] [place], [place] [address]Dr. Lawrence Wayne NEUT # 4.6 103/ul Normal 1.4-6.5 [facility] Comment on above: Performed By: #### C BC ####[facility] Oczos[address]jwb[address] [place], [place] [address]Dr. Laraantonio Wayne Neutrophils/100 WBC (Bld) 55.5 % Normal 43.0-75.0 [facility] Comment on above: Performed By: #### C BC ####[facility] [address]ju[address] [place], [place] [address]Dr. Lawrence Wayne Platelet mean volume (Bld) [Entitic vol] 8.6 fL Critically low 9.5-13.5 [facility] Comment on above: Performed By: #### C BC ####[facility] [address] [id number]. Lawrence Wayne PLT 380 103/ul Normal 150-450 [facility] Comment on above: Performed By: #### C BC ####[facility] [address] [id number]. Lawrence Wayne RBC 5.11 106/ul Normal 4.20-5.40 [facility] Comment on above: Performed By: #### C BC ####[facility] [address] [id number]. Lawrence Wayne WBC 8.3 103/ul Normal 4.0-11.0 [facility] Comment on above: Performed By: #### C BC ####[facility] [address] [address]Dr. Lawrence Wayne FREE THYROXINE INDEX T7on FTI 3.28 Normal 1.30-4.50 [facility] Comment on above: Performed By: #### T SH, T7, ALIYAH, LIPA, CMP ####[facility] [address] [place], [place] [address]Dr. Lawrence Wayne T3U 36.0 % Normal 30.0-39.0 [facility] Comment on above: Performed By: #### T SH, T7, ALIYAH, LIPA, CMP ####[facility] [address] [address]Dr. Lawrence Wayne T4 [Mass/Vol] 9.10 ug/dL Normal 4.80-13.90 [facility] Comment on above: Performed By: #### T SH, T7, ALIYAH, LIPA, CMP ####[facility] [address] [place], [place] [address]Dr. Lawrence Wayne LIPASEon 07-01-2022 Lipase [Catalytic activity/Vol] 125.0 U/L Normal 73.0-393.0 [facility] Comment on above: Performed By: #### T SH, T7, ALIYAH, LIPA, CMP ####[facility] [address] [place], [place] [address]Dr. Lawrence Wayne PROF 14(COMP METB)on 023 Albumin [Mass/Vol] 3.8 g/dL Normal 3.4-5.0 [facility] Comment on above: Performed By: #### T SH, T7, ALIYAH, LIPA, CMP ####[facility] [address] [address]Dr. Lawrence Wayne Albumin/Globulin [Mass ratio] 1.1 {ratio} Normal [facility] Comment on above: Performed By: #### T SH, T7, ALIYAH, LIPA, CMP ####[facility] [address] [address]Dr. Lawrence Wayne ALP [Catalytic activity/Vol] 104 U/L Normal 46-116 [facility] Comment on above: Performed By: #### T SH, T7, ALIYAH, LIPA, CMP ####[facility] [address] [address]Dr. Lawrence Wayne ALT [Catalytic activity/Vol] 36 U/L Normal 14-59 [facility] Comment on above: Performed By: #### T SH, T7, ALIYAH, LIPA, CMP ####[facility] [address] [address]Dr. Lawrence Wayne Anion gap [Moles/Vol] 11.7 mmol/L Normal [facility] Comment on above: Performed By: #### T SH, T7, ALIYAH, LIPA, CMP ####[facility] [address] [address]Dr. Lawrence Wayne AST [Catalytic activity/Vol] 22 U/L Normal 15-37 [facility] Comment on above: Performed By: #### T SH, T7, ALIYAH, LIPA, CMP ####[facility] [address] [address]Dr. Lawrence Wayne Bilirubin [Mass/Vol] 0.5 mg/dL Normal 0.2-1.0 [facility] Comment on above: Performed By: #### T SH, T7, ALIYAH, LIPA, CMP ####[facility] [address] [place], [place] [address]Dr. Lawrence Wayne Calcium [Mass/Vol] 9.8 mg/dL Normal 8.5-10.1 [facility] Comment on above: Performed By: #### T SH, T7, ALIYAH, LIPA, CMP ####[facility] [address] [address]Dr. Lawrence Wayne Chloride [Moles/Vol] 102 mmol/L Normal 98-107 [facility] Comment on above: Performed By: #### T SH, T7, ALIYAH, LIPA, CMP ####[facility] [address] [address]Dr. Lawrence Wayne CO2 [Moles/Vol] 29.3 mmol/L Normal 21.0-32.0 [facility] Comment on above: Performed By: #### T SH, T7, ALIYHA, LIPA, CMP ####[facility] [address] [address]Dr. Lawrence Wayne Creatinine [Mass/Vol] 0.88 mg/dL Normal 0.55-1.02 [facility] Comment on above: Performed By: #### T SH, T7, ALIYAH, LIPA, CMP ####[facility] Zw[address] [place], [place] [address]Dr. Lawrence Wayne EGFR-AF [facility] LUCIAN >60 Normal >=60 [facility] Comment on above: Performed By: #### T SH, T7, ALIYAH, LIPA, CMP ####[facility] [address] [place] [address]Dr. Lawrence Wayne EGFR-NON AF [facility] LUCIAN >60 Normal >=60 [facility] Comment on above: Performed By: #### T SH, T7, ALIYAH, LIPA, CMP ####[facility] [address] [address]Dr. Lawrence Wayne Globulin (S) [Mass/Vol] 3.5 g/dL Normal [facility] Comment on above: Performed By: #### T SH, T7, ALIYAH, LIPA, CMP ####[facility] [address] [address]Dr. Lawrence Wayne Glucose [Mass/Vol] 98 mg/dL Normal 74-106 [facility] Comment on above: Performed By: #### T SH, T7, ALIYAH, LIPA, CMP ####[facility] [address] [place] [address]Dr. Lawrence Wayne Potassium [Moles/Vol] 3.9 mmol/L Normal 3.5-5.1 [facility] Comment on above: Performed By: #### T SH, T7, ALIYAH, LIPA, CMP ####[facility] [address] [place] [address]Dr. Lawrence Wayne Protein [Mass/Vol] 7.3 g/dL Normal 6.4-8.2 [facility] Comment on above: Performed By: #### T SH, T7, ALIYAH, LIPA, CMP ####[facility] [address] [place] [address]Dr. Lawrence Wayne Sodium [Moles/Vol] 139 mmol/L Normal 136-145 [facility] Comment on above: Performed By: #### T SH, T7, ALIYAH, LIPA, CMP ####[facility] [address] [place], [place] [address]Dr. Lawrence Wayne Urea nitrogen [Mass/Vol] 11.0 mg/dL Normal 7.0-18.0 [facility] Comment on above: Performed By: #### T SH, T7, ALIYAH, LIPA, CMP ####[facility] [address] [place], [place] [address]Dr. Lawrence Wayne Urea nitrogen/Creatinine [Mass ratio] 12.5 mg/mg Normal [facility] Comment on above: Performed By: #### T SH, T7, ALIYAH, LIPA, CMP ####[facility] [address] [address]Dr. Lawrence Wayne TSHon 07-01-2022 TSH 1.744 uIU/mL Normal 0.358-3.740 [facility] Comment on above: Performed By: #### T SH, T7, ALIYAH, LIPA, CMP ####[facility] [address] [place], [place] [address]Dr. Lawrence Wayne CBC AUTO DIFFon 06-17-2022 BASO # 0.0 103/ul Normal 0.0-0.1 [facility] Comment on above: Performed By: #### A MY, CMP, LIPA #### [facility] [address] [place] [address] Dr. Lawrence Wayne Basophils/100 WBC (Bld) 0.4 % Normal 0.2-2.0 [facility] Comment on above: Performed By: #### A MY, CMP, LIPA #### [facility] [address] [place] [address] Dr. Lawrence Wayne EO # 0.0 103/ul Normal 0.0-0.7 [facility] Comment on above: Performed By: #### A MY, CMP, LIPA #### [facility] [address] [place] [address] Dr. Lawrence Wayne Eosinophils/100 WBC (Bld) 0.8 % Critically low 0.9-7.0 [facility] Comment on above: Performed By: #### A MY, CMP, LIPA #### [facility] [address] [place] [address] Dr. Lawrence Wayne Erythrocyte distribution width (RBC) [Ratio] 13.2 % Normal 11.0-15.0 [facility] Comment on above: Performed By: #### A MY, CMP, LIPA #### [facility] [address] [place] [address] Dr. Lawrence Wayne Hematocrit (Bld) [Volume fraction] 43.1 % Normal 36.0-48.0 [facility] Comment on above: Performed By: #### A MY, CMP, LIPA #### [facility] [address] [place] [address] Dr. Lawrence Wayne Hemoglobin (Bld) [Mass/Vol] 15.1 g/dL Normal 12.0-16.0 [facility] Comment on above: Performed By: #### A MY, CMP, LIPA #### [facility] [address] [place] [address] Dr. Lawrence Wayne IG # 0.03 10e3/ul Normal 0.00-0.03 [facility] Comment on above: Performed By: #### A MY, CMP, LIPA #### [facility] [address] [place] [address] Dr. Lawrence Wayne IG % 0.6 % Critically high 0.0-0.5 [facility] Comment on above: Performed By: #### A MY, CMP, LIPA #### [facility] [address] [place] [address] Dr. Lawrence Wayne LYMPH # 1.1 103/ul Critically low 1.2-3.8 [facility] Comment on above: Performed By: #### A MY, CMP, LIPA #### [facility] [address] [place] [address] Dr. Lawrence Wayne Lymphocytes/100 WBC (Bld) 22.0 % Normal 20.5-60.0 [facility] Comment on above: Performed By: #### A MY, CMP, LIPA #### [facility] [address] [place] [address] Dr. Lawrence Wayne MANUAL DIFF REQ NO Normal [facility] Comment on above: Performed By: #### A MY, CMP, LIPA #### [facility] [address] [place] [address] Dr. Lawrence Wayne MCH (RBC) [Entitic mass] 30.3 pg Normal 26.7-34.0 [facility] Comment on above: Performed By: #### A MY, CMP, LIPA #### [facility] [address] [place] [address] Dr. Lawrence Wayne MCHC (RBC) [Mass/Vol] 35.0 g/dL Normal 29.9-35.2 [facility] Comment on above: Performed By: #### A MY, CMP, LIPA #### [facility] [address] [place] [address] Dr. Lawrence Wayne MCV (RBC) [Entitic vol] 86.4 fL Normal 81.0-99.0 [facility] Comment on above: Performed By: #### A MY, CMP, LIPA #### [facility] [address] [address] [address] Lawrence Wayne MONO # 0.7 103/ul Normal 0.3-0.8 [facility] Comment on above: Performed By: #### A MY, CMP, LIPA #### [facility] [address] [place] [address] Dr. Lawrence Wayne Monocytes/100 WBC (Bld) 13.6 % Critically high 1.7-12.0 [facility] Comment on above: Performed By: #### A MY, CMP, LIPA #### [facility] [address] [place] [address] Dr. Lawrence Wayne NEUT # 3.2 103/ul Normal 1.4-6.5 [facility] Comment on above: Performed By: #### A MY, CMP, LIPA #### [facility] [address] [place] [address] Dr. Lawrence Wayne Neutrophils/100 WBC (Bld) 62.6 % Normal 43.0-75.0 [facility] Comment on above: Performed By: #### A MY, CMP, LIPA #### [facility] [address] [place] [address] Dr. Lawrence Wayne Platelet mean volume (Bld) [Entitic vol] 9.0 fL Critically low 9.5-13.5 [facility] Comment on above: Performed By: #### A MY, CMP, LIPA #### [facility] [address] [place] [address] Dr. Lawrence Wayne PLT 257 103/ul Normal 150-450 [facility] Comment on above: Performed By: #### A MY, CMP, LIPA #### [facility] [address] [place] [address] Dr. Lawrence Wayne RBC 4.99 106/ul Normal 4.20-5.40 [facility] Comment on above: Performed By: #### A MY, CMP, LIPA #### [facility] [address] [place] [address] Dr. Lawrence Wayne WBC 5.1 103/ul Normal 4.0-11.0 [facility] Comment on above: Performed By: #### A MY, CMP, LIPA #### [facility] [address] [place] [address] Dr. Lawrence Wayne INFLUENZA A AND B AGon 06-17 [facility] SEE BELOW Normal [facility] Comment on above: Result Comment: Nega tive for Flu B protein antigen. Infection due to Flu B cannot be ruled out. Flu B antigen in the sample may be below the detection limit of the test. Performed By: #### A MY, CMP, LIPA #### [facility] [address] [place] [address] Dr. Lawrence Wayne INFLUENZA A AG Positive Abnormal NEGATIVE SEE COMMENT [facility] Comment on above: Performed By: #### A MY, CMP, LIPA #### [facility] [address] [place] [address] Dr. Lawrence Wayne INFLUENZA B AG Negative Normal NEGATIVE SEE COMMENT [facility] Comment on above: Performed By: #### A MY, CMP, LIPA #### [facility] [address] [place] [address] Dr. Lawrence Wayne PROF 14(COMP METB)on 023 Albumin [Mass/Vol] 3.4 g/dL Normal 3.4-5.0 [facility] Comment on above: Performed By: #### A MY, CMP, LIPA #### [facility] [address] [place] [address] Dr. Lawrence Wayne Albumin/Globulin [Mass ratio] 0.9 {ratio} Normal [facility] Comment on above: Performed By: #### A MY, CMP, LIPA #### [facility] [address] [place] [address] Dr. aLwrence Wayne ALP [Catalytic activity/Vol] 94 U/L Normal 46-116 [facility] Comment on above: Performed By: #### A MY, CMP, LIPA #### [facility] [address] [place] [address] Dr. Lawrence Wayne ALT [Catalytic activity/Vol] 36 U/L Normal 14-59 [facility] Comment on above: Performed By: #### A MY, CMP, LIPA #### [facility] [address] [address] [address] Lawrence Wayne Anion gap [Moles/Vol] 18.9 mmol/L Normal [facility] Comment on above: Performed By: #### A MY, CMP, LIPA #### [facility] [address] [address] [address] Lawrence Wayne AST [Catalytic activity/Vol] 32 U/L Normal 15-37 [facility] Comment on above: Performed By: #### A MY, CMP, LIPA #### [facility] [address] [address] [address] Lawrence Wayne Bilirubin [Mass/Vol] 0.4 mg/dL Normal 0.2-1.0 [facility] Comment on above: Performed By: #### A MY, CMP, LIPA #### [facility] [address] [address] [address] Lawrence Wayne Calcium [Mass/Vol] 9.1 mg/dL Normal 8.5-10.1 [facility] Comment on above: Performed By: #### A MY, CMP, LIPA #### [facility] [address] [address] [address] Lawrence Wayne Chloride [Moles/Vol] 100 mmol/L Normal 98-107 [facility] Comment on above: Performed By: #### A MY, CMP, LIPA #### [facility] [address] [address] [address] Lawrence Wayne CO2 [Moles/Vol] 19.7 mmol/L Critically low 21.0-32.0 [facility] Comment on above: Performed By: #### A MY, CMP, LIPA #### [facility] [address] [address] [address] Lawrence Wayne Creatinine [Mass/Vol] 1.13 mg/dL Critically high 0.55-1.02 [facility] Comment on above: Performed By: #### A MY, CMP, LIPA #### [facility] [address] [address] [address] Lawrence Wayne EGFR-AF [facility]CI[facility] 58 mL/min/1.73m2 Critically low >=60 [facility] Comment on above: Performed By: #### A MY, CMP, LIPA #### [facility] [address] [place] [address] Dr. Lawrence Wayne EGFR-NON AF [facility] 48 mL/min/1.73m2 Critically low >=60 [facility] Comment on above: Performed By: #### A MY, CMP, LIPA #### [facility] [address] [place] [address] Dr. Lawrence Wayne Globulin (S) [Mass/Vol] 3.9 g/dL Normal [facility] Comment on above: Performed By: #### A MY, CMP, LIPA #### [facility] [address] [place] [address] Dr. Lawrence Wayne Glucose [Mass/Vol] 105 mg/dL Normal 74-106 [facility] Comment on above: Performed By: #### A MY, CMP, LIPA #### [facility] [address] [place] [address] Dr. Lawrence Wayne Potassium [Moles/Vol] 3.6 mmol/L Normal 3.5-5.1 [facility] Comment on above: Performed By: #### A MY, CMP, LIPA #### [facility] [address] [place] [address] Dr. Lawrence Wayne Protein [Mass/Vol] 7.3 g/dL Normal 6.4-8.2 [facility] Comment on above: Performed By: #### A MY, CMP, LIPA #### [facility] [address] [place] [address] Dr. Lawrence Wayne Sodium [Moles/Vol] 135 mmol/L Critically low 136-145 [facility] Comment on above: Performed By: #### A MY, CMP, LIPA #### [facility] [address] [place] [address] Dr. Lawrence Wayne Urea nitrogen [Mass/Vol] 13.0 mg/dL Normal 7.0-18.0 [facility] Comment on above: Performed By: #### A MY, CMP, LIPA #### [facility] [address] [address] [address] Lawrence Wayne Urea nitrogen/Creatinine [Mass ratio] 11.5 mg/mg Normal [facility] Comment on above: Performed By: #### A MY, CMP, LIPA #### [facility] [address] [address] [address] Lawrence Wayne MRI CSPINE WO CONon [...] TYRELL MOREJON Date: 2022-05-20 10:26 Normal [facility] AMYLASEon 05-07-2022 Amylase [Catalytic activity/Vol] 81 U/L Normal 25-115 [facility] Comment on above: Performed By: #### A MY, CMP, LIPA #### [facility] [address] [address] [address] Lawrence Wayne CBC AUTO DIFFon 05-07-2022 BASO # 0.0 103/ul Normal 0.0-0.1 [facility] Comment on above: Performed By: #### A MY, CMP, LIPA #### [facility] [address] [place] [address] Dr. Lawrence Wayne Basophils/100 WBC (Bld) 0.8 % Normal 0.2-2.0 [facility] Comment on above: Performed By: #### A MY, CMP, LIPA #### [facility] [address] [address] [address] Lawrence Wayne EO # 0.1 103/ul Normal 0.0-0.7 [facility] Comment on above: Performed By: #### A MY, CMP, LIPA #### [facility] [address] [place] [address] Dr. Lawrence Wayne Eosinophils/100 WBC (Bld) 1.5 % Normal 0.9-7.0 [facility] Comment on above: Performed By: #### A MY, CMP, LIPA #### [facility] [address] [place] [address] Dr. Lawrence Wayne Erythrocyte distribution width (RBC) [Ratio] 12.7 % Normal 11.0-15.0 [facility] Comment on above: Performed By: #### A MY, CMP, LIPA #### [facility] [address] [place] [address] Dr. Lawrence Wayne Hematocrit (Bld) [Volume fraction] 40.5 % Normal 36.0-48.0 [facility] Comment on above: Performed By: #### A MY, CMP, LIPA #### [facility] [address] [place] [address] Dr. Lawrence Wayne Hemoglobin (Bld) [Mass/Vol] 13.8 g/dL Normal 12.0-16.0 [facility] Comment on above: Performed By: #### A MY, CMP, LIPA #### [facility] [address] [place] [address] Dr. Lawrence Wayne IG # 0.01 10e3/ul Normal 0.00-0.03 [facility] Comment on above: Performed By: #### A MY, CMP, LIPA #### [facility] [address] [address] [address] Lawrence Wayne IG % 0.2 % Normal 0.0-0.5 [facility] Comment on above: Performed By: #### A MY, CMP, LIPA #### [facility] [address] [place] [address] Dr. Lawrence Wayne LYMPH # 1.7 103/ul Normal 1.2-3.8 [facility] Comment on above: Performed By: #### A MY, CMP, LIPA #### [facility] [address] [place] [address] Dr. Lawrence Wayne Lymphocytes/100 WBC (Bld) 32.7 % Normal 20.5-60.0 [facility] Comment on above: Performed By: #### A MY, CMP, LIPA #### [facility] [address] [place] [address] Dr. Lawrence Wayne MANUAL DIFF REQ NO Normal [facility] Comment on above: Performed By: #### A MY, CMP, LIPA #### [facility] [address] [place] [address] Dr. Lawrence Wayne MCH (RBC) [Entitic mass] 30.5 pg Normal 26.7-34.0 [facility] Comment on above: Performed By: #### A MY, CMP, LIPA #### [facility] [address] [place] [address] Dr. Lawrence Wayne MCHC (RBC) [Mass/Vol] 34.1 g/dL Normal 29.9-35.2 [facility] Comment on above: Performed By: #### A MY, CMP, LIPA #### [facility] [address] [place] [address] Dr. Lawrence Wayne MCV (RBC) [Entitic vol] 89.4 fL Normal 81.0-99.0 [facility] Comment on above: Performed By: #### A MY, CMP, LIPA #### [facility] [address] [place] [address] Dr. Lawrence Wayne MONO # 0.6 103/ul Normal 0.3-0.8 [facility] Comment on above: Performed By: #### A MY, CMP, LIPA #### [facility] [address] [place] [address] Dr. Lawrence Wayne Monocytes/100 WBC (Bld) 10.5 % Normal 1.7-12.0 [facility] Comment on above: Performed By: #### A MY, CMP, LIPA #### [facility] [address] [place] [address] Dr. Lawrence Wayne NEUT # 2.9 103/ul Normal 1.4-6.5 [facility] Comment on above: Performed By: #### A MY, CMP, LIPA #### [facility] [address] [place] [address] Dr. Lawrence Wayne Neutrophils/100 WBC (Bld) 54.3 % Normal 43.0-75.0 [facility] Comment on above: Performed By: #### A MY, CMP, LIPA #### [facility] [facility] [address] [place] [address] Dr. Lawrence Wayne Platelet mean volume (Bld) [Entitic vol] 9.4 fL Critically low 9.5-13.5 [facility] Comment on above: Performed By: #### A MY, CMP, LIPA #### [facility] [address] [place] [address] Dr. Lawrence Wayne PLT 292 103/ul Normal 150-450 [facility] Comment on above: Performed By: #### A MY, CMP, LIPA #### [facility] [address] [place] [address] Dr. Lawrence Wayne RBC 4.53 106/ul Normal 4.20-5.40 [facility] Comment on above: Performed By: #### A MY, CMP, LIPA #### [facility] [address] [place] [address] Dr. Lawrence Wayne WBC 5.3 103/ul Normal 4.0-11.0 [facility] Comment on above: Performed By: #### A MY, CMP, LIPA #### [facility] [address] [place] [address] Dr. Lawrence Wayne LIPASEon 05-07-2022 Lipase [Catalytic activity/Vol] 86.0 U/L Normal 73.0-393.0 [facility] Comment on above: Performed By: #### A MY, CMP, LIPA #### [facility] [address] [place] [address] Dr. Lawrence Wayne PROF 14(COMP METB)on 022 Albumin [Mass/Vol] 3.7 g/dL Normal 3.4-5.0 [facility] Comment on above: Performed By: #### A MY, CMP, LIPA #### [facility] [address] [place] [address] Dr. Lawrence Wayne Albumin/Globulin [Mass ratio] 1.1 {ratio} Normal [facility] Comment on above: Performed By: #### A MY, CMP, LIPA #### [facility] [address] [place] [address] Dr. Lawrence Wayne ALP [Catalytic activity/Vol] 96 U/L Normal 46-116 [facility] Comment on above: Performed By: #### A MY, CMP, LIPA #### [facility] [address] [place] [address] Dr. Lawrence Wayne ALT [Catalytic activity/Vol] 24 U/L Normal 14-59 [facility] Comment on above: Performed By: #### A MY, CMP, LIPA #### [facility] [address] [place] [address] Dr. Lawrence Wayne Anion gap [Moles/Vol] 8.3 mmol/L Normal [facility] Comment on above: Performed By: #### A MY, CMP, LIPA #### [facility] [address] [place] [address] Dr. Lawrence Wayne AST [Catalytic activity/Vol] 19 U/L Normal 15-37 [facility] Comment on above: Performed By: #### A MY, CMP, LIPA #### [facility] [address] [place] [address] Dr. Lawrence Wayne Bilirubin [Mass/Vol] 0.2 mg/dL Normal 0.2-1.0 [facility] Comment on above: Performed By: #### A MY, CMP, LIPA #### [facility] [address] [address] [address] Lawrence Wayne Calcium [Mass/Vol] 9.1 mg/dL Normal 8.5-10.1 [facility] Comment on above: Performed By: #### A MY, CMP, LIPA #### [facility] [address] [place] [address] Dr. Lawrence Wayne Chloride [Moles/Vol] 103 mmol/L Normal 98-107 [facility] Comment on above: Performed By: #### A MY, CMP, LIPA #### [facility] [address] [place] [address] Dr. Lawrence Wayne CO2 [Moles/Vol] 30.6 mmol/L Normal 21.0-32.0 [facility] Comment on above: Performed By: #### A MY, CMP, LIPA #### [facility] [address] [place] [address] Dr. Lawrence Wayne Creatinine [Mass/Vol] 0.88 mg/dL Normal 0.55-1.02 [facility] Comment on above: Performed By: #### A MY, CMP, LIPA #### [facility] [address] [place] [address] Dr. Lawrence Wayne EGFR-AF ST LUCIAN >60 Normal >=60 [facility] Comment on above: Performed By: #### A MY, CMP, LIPA #### [facility] [address] [place] [address] Dr. Lawrence Wayne EGFR-NON AF [facility] LUCIAN >60 Normal >=60 [facility] Comment on above: Performed By: #### A MY, CMP, LIPA #### [facility] [address] [place] [address] Dr. Lawrence Wayne Globulin (S) [Mass/Vol] 3.4 g/dL Normal [facility] Comment on above: Performed By: #### A MY, CMP, LIPA #### [facility] [address] [address] [address] Lawrence Wayne Glucose [Mass/Vol] 94 mg/dL Normal 74-106 [facility] Comment on above: Performed By: #### A MY, CMP, LIPA #### [facility] [address] [address] [address] Lawrence Wayne Potassium [Moles/Vol] 3.9 mmol/L Normal 3.5-5.1 [facility] Comment on above: Performed By: #### A MY, CMP, LIPA #### [facility] [address] [address] [address] Lawrence Wayne Protein [Mass/Vol] 7.1 g/dL Normal 6.4-8.2 [facility] Comment on above: Performed By: #### A MY, CMP, LIPA #### [facility] [address] [address] [address] Lawrence Wayne Sodium [Moles/Vol] 138 mmol/L Normal 136-145 [facility] Comment on above: Performed By: #### A MY, CMP, LIPA #### [facility] [address] [address] [address] Lawrence Wayne Urea nitrogen [Mass/Vol] 10.0 mg/dL Normal 7.0-18.0 [facility] Comment on above: Performed By: #### A MY, CMP, LIPA #### [facility] [address] [address] [address] Lawrence Wanye Urea nitrogen/Creatinine [Mass ratio] 11.4 mg/mg Normal [facility] Comment on above: Performed By: #### A MY, CMP, LIPA #### [facility] [address] [address] [address] Lawrence Wayne MG MAMM SCREEN 3D QING CADon 03-26-2022 MG MAMM SCREEN 3D QING CAD Patient: SKIP HONG Exam Date: 03/26/2022 : 1955 Gender:F Ordering : DR RADHA LYMAN . Admission #: [id number] Family : Order #: [id number] CLICK HERE TO VIEW EXAM RADIOLOGY REPORT [...] cancer at age 30. LOCATION: [facility] BREAST COMPOSITION: Heterogeneously dense,which may obscure [...] on 03/26/2022 at 09:53 Normal [facility] NM STRESS/REST MULTIon 03-24 NM STRESS/REST MULTI Patient: MANISHA HONG Exam Date: 03/24/2022 : 1955 Gender:F Ordering : DR ANITHA MCGREGOR . Admission #: [id number] Family : Order #: [id number] CLICK HERE TO VIEW EXAM RADIOLOGY REPORT [...] on 03/25/2022 at 07:15 Normal [facility] T4, T3U, FTI LABCORPon 02-19 Free Thyroxine Index 2.3 Normal 1.2-4.9 [facility] Comment on above: Performed By: #### A MY, CMP, LIPA #### [facility] [address] [place] [address] Dr. Lawrence Wayne T3 Uptake 28 % Normal 24-39 [facility] Comment on above: Performed By: #### A MY, CMP, LIPA #### [facility] [address] [address] [address] Lawrence Wayne T4 [Mass/Vol] 8.3 ug/dL Normal 4.5-12.0 [facility] Comment on above: Performed By: #### A MY, CMP, LIPA #### [facility] [address] [place] [address] Dr. Lawrence Wayne BNPon 02-18-2022 Natriuretic peptide B (Bld) [Mass/Vol] 78.0 pg/mL Normal <=900.0 [facility] Comment on above: Performed By: #### A MY, CMP, LIPA #### [facility] [address] [place] [address] Dr. Lawrence Wayne CBC AUTO DIFFon 02-18-2022 BASO # 0.1 103/ul Normal 0.0-0.1 [facility] Comment on above: Performed By: #### C BC ####[facility] [address] [address]Dr. Lawrence Wayne Basophils/100 WBC (Bld) 0.9 % Normal 0.2-2.0 [facility] Comment on above: Performed By: #### C BC ####[facility] [address] [place], [place] [address]Dr. Lawrence Wayne EO # 0.1 103/ul Normal 0.0-0.7 [facility] Comment on above: Performed By: #### C BC ####[facility] W[address]as[address] [place], [place] [address]Dr. Lawrence Wayne Eosinophils/100 WBC (Bld) 1.1 % Normal 0.9-7.0 [facility] Comment on above: Performed By: #### C BC ####[facility] [address] [place], [place] [address]Dr. Lawrence Wayne Erythrocyte distribution width (RBC) [Ratio] 12.6 % Normal 11.0-15.0 [facility] Comment on above: Performed By: #### C BC ####[facility] [address] [place], [place] [address]Dr. Lawrence Wayne Hematocrit (Bld) [Volume fraction] 44.4 % Normal 36.0-48.0 [facility] Comment on above: Performed By: #### C BC ####[facility] [address] [place], [place] [address]Dr. Lawrence Wayne Hemoglobin (Bld) [Mass/Vol] 14.7 g/dL Normal 12.0-16.0 [facility] Comment on above: Performed By: #### C BC ####[facility] [address] [place], [place] [address]Dr. Lawrence Wayne IG # 0.02 10e3/ul Normal 0.00-0.03 [facility] Comment on above: Performed By: #### C BC ####[facility] [address] [place], [place] [address]Dr. Lawrence Wayne IG % 0.3 % Normal 0.0-0.5 [facility] Comment on above: Performed By: #### C BC ####[facility] [address] [id number]. Lawrence Tone LYMPH # 1.8 103/ul Normal 1.2-3.8 [facility] Comment on above: Performed By: #### C BC ####[facility] [address] [id number]. Lawrence Tone Lymphocytes/100 WBC (Bld) 26.1 % Normal 20.5-60.0 [facility] Comment on above: Performed By: #### C BC ####[facility] [address] [id number]. Laraantonio Wayne MANUAL DIFF REQ NO Normal [facility] Comment on above: Performed By: #### C BC ####[facility] [address] [id number]. Lawrence Tone MCH (RBC) [Entitic mass] 30.2 pg Normal 26.7-34.0 [facility] Comment on above: Performed By: #### C BC ####[facility] [address] [address]Dr. Lawrence Tone MCHC (RBC) [Mass/Vol] 33.1 g/dL Normal 29.9-35.2 [facility] Comment on above: Performed By: #### C BC ####[facility] [address] [id number]. Lawrence Tone MCV (RBC) [Entitic vol] 91.4 fL Normal 81.0-99.0 [facility] Comment on above: Performed By: #### C BC ####[facility] [address] [address]Dr. Lawrence Tone MONO # 0.8 103/ul Normal 0.3-0.8 [facility] Comment on above: Performed By: #### C BC ####[facility] [address] [address]Dr. Laraantonio Wayne Monocytes/100 WBC (Bld) 11.0 % Normal 1.7-12.0 [facility] Comment on above: Performed By: #### C BC ####[facility] [address] [id number]. Lawrence Wayne NEUT # 4.2 103/ul Normal 1.4-6.5 [facility] Comment on above: Performed By: #### C BC ####[facility] [address] [address]Dr. Lawrence Wayne Neutrophils/100 WBC (Bld) 60.6 % Normal 43.0-75.0 [facility] Comment on above: Performed By: #### C BC ####[facility] [address] [id number]. Lawrence Wayne Platelet mean volume (Bld) [Entitic vol] 9.2 fL Critically low 9.5-13.5 [facility] Comment on above: Performed By: #### C BC ####[facility] [address] [id number]. Lawrence Wayne PLT 322 103/ul Normal 150-450 [facility] Comment on above: Performed By: #### C BC ####[facility] [address] [id number]. Lawrence Wayne RBC 4.86 106/ul Normal 4.20-5.40 [facility] Comment on above: Performed By: #### C BC ####[facility] [address] [address]Dr. Laraantonio Tone WBC 7.0 103/ul Normal 4.0-11.0 [facility] Comment on above: Performed By: #### C BC ####[facility] [address] [id number] Wayne IRONon 02-18-2022 Iron [Mass/Vol] 89.0 ug/dL Normal 50.0-170.0 [facility] Comment on above: Performed By: #### A MY, CMP, LIPA #### [facility] [address] [address] Lawrence Wayne PROF 14(COMP METB)on 022 Albumin [Mass/Vol] 4.0 g/dL Normal 3.4-5.0 [facility] Comment on above: Performed By: #### A MY, CMP, LIPA #### [facility] [address] [address] [address] Lawrence Wayne Albumin/Globulin [Mass ratio] 1.1 {ratio} Normal [facility] Comment on above: Performed By: #### A MY, CMP, LIPA #### [facility] [address] [address] [address] Lawrence Wayne ALP [Catalytic activity/Vol] 98 U/L Normal 46-116 [facility] Comment on above: Performed By: #### A MY, CMP, LIPA #### [facility] [address] [address] [address] Lawrence Wayne ALT [Catalytic activity/Vol] 23 U/L Normal 14-59 [facility] Comment on above: Performed By: #### A MY, CMP, LIPA #### [facility] [address] [address] [address] Lawrence Wayne Anion gap [Moles/Vol] 4.9 mmol/L Normal [facility] Comment on above: Performed By: #### A MY, CMP, LIPA #### [facility] [address] [address] [address] Lawrence Wayne AST [Catalytic activity/Vol] 19 U/L Normal 15-37 [facility] Comment on above: Performed By: #### A MY, CMP, LIPA #### [facility] [address] [address] [address] Lawrence Wayne Bilirubin [Mass/Vol] 0.4 mg/dL Normal 0.2-1.0 [facility] Comment on above: Performed By: #### A MY, CMP, LIPA #### [facility] [address] [address] [address] Lawrence Wayne Calcium [Mass/Vol] 9.5 mg/dL Normal 8.5-10.1 [facility] Comment on above: Performed By: #### A MY, CMP, LIPA #### [facility] [address] [address] [address] Lawrence Wayne Chloride [Moles/Vol] 102 mmol/L Normal 98-107 [facility] Comment on above: Performed By: #### A MY, CMP, LIPA #### [facility] [address] [address] [address] Lawrence Wayne CO2 [Moles/Vol] 30.1 mmol/L Normal 21.0-32.0 [facility] Comment on above: Performed By: #### A MY, CMP, LIPA #### [facility] [address] [place] [address] Dr. Lawrence Wayne Creatinine [Mass/Vol] 0.99 mg/dL Normal 0.55-1.02 [facility] Comment on above: Performed By: #### A MY, CMP, LIPA #### [facility] [address] [place] [address] Dr. Lawrence Wayne EGFR-AF ST LUCIAN >60 Normal >=60 [facility] Comment on above: Performed By: #### A MY, CMP, LIPA #### [facility] [address] [place] [address] Dr. Lawrence Wayne EGFR-NON AF [facility] LUCIAN 56 mL/min/1.73m2 Critically low >=60 [facility] Comment on above: Performed By: #### A MY, CMP, LIPA #### [facility] [address] [place] [address] Dr. Lawrence Wayne Globulin (S) [Mass/Vol] 3.5 g/dL Normal [facility] Comment on above: Performed By: #### A MY, CMP, LIPA #### [facility] [address] [address] [address] Lawrence Wayne Glucose [Mass/Vol] 100 mg/dL Normal 74-106 [facility] Comment on above: Performed By: #### A MY, CMP, LIPA #### [facility] [address] [place] [address] Dr. Lawrence Wayne Potassium [Moles/Vol] 4.0 mmol/L Normal 3.5-5.1 [facility] Comment on above: Performed By: #### A MY, CMP, LIPA #### [facility] [address] [place], [place] [address] Dr. Lawrence Wayne Protein [Mass/Vol] 7.5 g/dL Normal 6.4-8.2 [facility] Comment on above: Performed By: #### A MY, CMP, LIPA #### [facility] [address] [address] [address] Lawrence Wayne Sodium [Moles/Vol] 133 mmol/L Critically low 136-145 [facility] Comment on above: Performed By: #### A MY, CMP, LIPA #### [facility] [address] [address] [address] Lawrence Wayne Urea nitrogen [Mass/Vol] 14.0 mg/dL Normal 7.0-18.0 [facility] Comment on above: Performed By: #### A MY, CMP, LIPA #### [facility] [address] [address] [address] Lawrence Wayne Urea nitrogen/Creatinine [Mass ratio] 14.1 mg/mg Normal [facility] Comment on above: Performed By: #### A MY, CMP, LIPA #### [facility] [address] [address] [address] Lawrence Wayne TSHon 02-18-2022 TSH 1.273 uIU/mL Normal 0.358-3.740 [facility] Comment on above: Performed By: #### A MY, CMP, LIPA #### [facility] [address] [address] [address] Lawrence Wayne AMMONIAon 02-07-2022 Ammonia (P) [Mass/Vol] ug/dL Critically low 11-32 [facility] Comment on above: Performed By: #### A MM ####[facility] [address] [address]Dr. Lawrence Wayne AMYLASEon 02-07-2022 Amylase [Catalytic activity/Vol] 88 U/L Normal 25-115 [facility] Comment on above: Performed By: #### A MY, CMP, LIPA #### [facility] [address] [place] [address] Dr. Lawrence Wayne BNPon 02-07-2022 Natriuretic peptide B (Bld) [Mass/Vol] 236.0 pg/mL Normal <=900.0 [facility] Comment on above: Performed By: #### A MY, CMP, LIPA #### [facility] [address] [place], [place] [address] Dr. Lawrence Wayne CBC AUTO DIFFon 02-07-2022 BASO # 0.0 103/ul Normal 0.0-0.1 [facility] Comment on above: Performed By: #### C BC ####[facility] [address] [address]DrKim Wayne Basophils/100 WBC (Bld) 0.7 % Normal 0.2-2.0 [facility] Comment on above: Performed By: #### C BC ####[facility] [address] [address]DrKim Wayne EO # 0.1 103/ul Normal 0.0-0.7 [facility] Comment on above: Performed By: #### C BC ####[facility] [address] [address]Dr. Lawrence Wayne Eosinophils/100 WBC (Bld) 1.3 % Normal 0.9-7.0 [facility] Comment on above: Performed By: #### C BC ####[facility] [address] [id number] Wayne Erythrocyte distribution width (RBC) [Ratio] 12.7 % Normal 11.0-15.0 [facility] Comment on above: Performed By: #### C BC ####[facility] [address] [id number]. Lawrence Wayne Hematocrit (Bld) [Volume fraction] 38.7 % Normal 36.0-48.0 [facility] Comment on above: Performed By: #### C BC ####[facility] [address] [address]DrKim Wayne Hemoglobin (Bld) [Mass/Vol] 12.4 g/dL Normal 12.0-16.0 [facility] Comment on above: Result Comment: RECE IVING BOLUS AND SALINE Performed By: #### C BC ####[facility] [address] [id number]. Lawrence Wayne IG # 0.01 10e3/ul Normal 0.00-0.03 [facility] Comment on above: Performed By: #### C BC ####[facility] [address] [id number]. Lawrence Tone IG % 0.2 % Normal 0.0-0.5 [facility] Comment on above: Performed By: #### C BC ####[facility] [address] [address]Dr. Laraantonio Wayne LYMPH # 1.9 103/ul Normal 1.2-3.8 [facility] Comment on above: Performed By: #### C BC ####[facility] [address] [place], [place] [address]Dr. Lawrence Wayne Lymphocytes/100 WBC (Bld) 35.0 % Normal 20.5-60.0 [facility] Comment on above: Performed By: #### C BC ####[facility] [address] [address]Dr. Lawrence Wayne MANUAL DIFF REQ NO Normal [facility] Comment on above: Performed By: #### C BC ####[facility] [address] [place], [place] [address]Dr. Lawrence Tone MCH (RBC) [Entitic mass] 30.2 pg Normal 26.7-34.0 [facility] Comment on above: Performed By: #### C BC ####[facility] [address] [place], [place] [address]Dr. Lawrence Wayne MCHC (RBC) [Mass/Vol] 32.0 g/dL Normal 29.9-35.2 [facility] Comment on above: Performed By: #### C BC ####[facility] [address] [place], [place] [address]Dr. Lawrence Tone MCV (RBC) [Entitic vol] 94.2 fL Normal 81.0-99.0 [facility] Comment on above: Performed By: #### C BC ####[facility] [address] [id number]. Lawrence Wayne MONO # 0.6 103/ul Normal 0.3-0.8 [facility] Comment on above: Performed By: #### C BC ####[facility] [address] [id number]. Lawrence Wayne Monocytes/100 WBC (Bld) 10.7 % Normal 1.7-12.0 [facility] Comment on above: Performed By: #### C BC ####[facility] [address] [id number]. Lawrence Wayne NEUT # 2.9 103/ul Normal 1.4-6.5 [facility] Comment on above: Performed By: #### C BC ####[facility] [address] [id number]. Lawrence Wayne Neutrophils/100 WBC (Bld) 52.1 % Normal 43.0-75.0 [facility] Comment on above: Performed By: #### C BC ####[facility] [address] [id number]. Lawrence Wayne Platelet mean volume (Bld) [Entitic vol] 9.5 fL Normal 9.5-13.5 [facility] Comment on above: Performed By: #### C BC ####[facility] [address] [id number]. Lawrence Wayne PLT 260 103/ul Normal 150-450 [facility] Comment on above: Performed By: #### C BC ####[facility] [address] [id number]. Lawrence Wayne RBC 4.11 106/ul Critically low 4.20-5.40 [facility] Comment on above: Performed By: #### C BC ####[facility] [address] [id number]. Lawrence Wayne WBC 5.5 103/ul Normal 4.0-11.0 [facility] Comment on above: Performed By: #### C BC ####[facility] [address] [address]Dr. Lawrence Wayne PROF 14(COMP METB)on 022 Albumin [Mass/Vol] 3.0 g/dL Critically low 3.4-5.0 [facility] Comment on above: Performed By: #### A MY, CMP, LIPA #### [facility] [facility] [address] [address] [address] Lawrence Wayne Albumin/Globulin [Mass ratio] 1.1 {ratio} Normal [facility] Comment on above: Performed By: #### A MY, CMP, LIPA #### [facility] [address] [address] [address] Lawrence Wayne ALP [Catalytic activity/Vol] 77 U/L Normal 46-116 [facility] Comment on above: Performed By: #### A MY, CMP, LIPA #### [facility] [address] [address] [address] Lawrence Wayne ALT [Catalytic activity/Vol] 21 U/L Normal 14-59 [facility] Comment on above: Performed By: #### A MY, CMP, LIPA #### [facility] [address] [address] [address] Lawrence Wayne Anion gap [Moles/Vol] 10.9 mmol/L Normal [facility] Comment on above: Performed By: #### A MY, CMP, LIPA #### [facility] [address] [address] [address] Lawrence Wayne AST [Catalytic activity/Vol] 15 U/L Normal 15-37 [facility] Comment on above: Performed By: #### A MY, CMP, LIPA #### [facility] [address] [address] [address] Lawrence Wayne Bilirubin [Mass/Vol] 0.3 mg/dL Normal 0.2-1.0 [facility] Comment on above: Performed By: #### A MY, CMP, LIPA #### [facility] [address] [address] [address] Lawrence Wayne Calcium [Mass/Vol] 8.4 mg/dL Critically low 8.5-10.1 Th e [facility] Comment on above: Performed By: #### A MY, CMP, LIPA #### [facility] [address] [address] [address] Lawrence Wayne Chloride [Moles/Vol] 110 mmol/L Critically high 98-107 [facility] Comment on above: Performed By: #### A MY, CMP, LIPA #### [facility] [address] [place] [address] Dr. Lawrence Wayne CO2 [Moles/Vol] 25.0 mmol/L Normal 21.0-32.0 [facility] Comment on above: Performed By: #### A MY, CMP, LIPA #### [facility] [address] [place] [address] Dr. Lawrence Wayne Creatinine [Mass/Vol] 0.87 mg/dL Normal 0.55-1.02 [facility] Comment on above: Performed By: #### A MY, CMP, LIPA #### [facility] [address] [place] [address] Dr. Lawrence Wayne EGFR-AF ST LUCIAN >60 Normal >=60 [facility] Comment on above: Performed By: #### A MY, CMP, LIPA #### [facility] [address] [place] [address] Dr. Lawrence Wayne EGFR-NON AF [facility] LUCIAN >60 Normal >=60 [facility] Comment on above: Performed By: #### A MY, CMP, LIPA #### [facility] [address] [place] [address] Dr. Lawrence Wayne Globulin (S) [Mass/Vol] 2.8 g/dL Normal [facility] Comment on above: Performed By: #### A MY, CMP, LIPA #### [facility] [address] [place] [address] Dr. Lawrence Wayne Glucose [Mass/Vol] 96 mg/dL Normal 74-106 [facility] Comment on above: Performed By: #### A MY, CMP, LIPA #### [facility] [address] [place] [address] Dr. Lawrence Wayne Potassium [Moles/Vol] 3.9 mmol/L Normal 3.5-5.1 [facility] Comment on above: Performed By: #### A MY, CMP, LIPA #### [facility] [address] [address] [address] Lawrence Wayne Protein [Mass/Vol] 5.8 g/dL Critically low 6.4-8.2 Th e [facility] Comment on above: Performed By: #### A MY, CMP, LIPA #### [facility] [address] [address] [address] Lawrence Wayne Sodium [Moles/Vol] 142 mmol/L Normal 136-145 [facility] Comment on above: Performed By: #### A MY, CMP, LIPA #### [facility] [address] [place] [address] Dr. Lawrence Wayne Urea nitrogen [Mass/Vol] 11.0 mg/dL Normal 7.0-18.0 [facility] Comment on above: Performed By: #### A MY, CMP, LIPA #### [facility] [address] [place] [address] Dr. Lawrence Wayne Urea nitrogen/Creatinine [Mass ratio] 12.6 mg/mg Normal [facility] Comment on above: Performed By: #### A MY, CMP, LIPA #### [facility] [address] [place] [address] Dr. Lawrence Wayne AMMONIAon 02-06-2022 Ammonia (P) [Moles/Vol] 44 umol/L Critically high 11-32 [facility] Comment on above: Performed By: #### A MY, CMP, LIPA #### [facility] [address] [place] [address] Dr. Lawrence Wayne AMYLASEon 02-06-2022 Amylase [Catalytic activity/Vol] 89 U/L Normal 25-115 [facility] Comment on above: Performed By: #### M G, CMP, CMADM, BNP, ALIYAH, LIPA #### [facility] [address] [address] [address] Lawrence Wayne BNPon 02-06-2022 Natriuretic peptide B (Bld) [Mass/Vol] 103.0 pg/mL Normal <=900.0 [facility] Comment on above: Performed By: #### M G, CMP, CMADM, BNP, ALIYAH, LIPA ####[facility] [address] [address]Dr. Lawrence Wayne CARDIAC ORAL ADMITon 022 CK [Catalytic activity/Vol] 65 U/L Normal 26-192 [facility] Comment on above: Performed By: #### M G, CMP, CMADM, BNP, ALIYAH, LIPA #### [facility] [address] [address] [address] Lawrence Wayne CK.MB [Mass/Vol] 1.16 ng/mL Normal <=3.60 [facility] Comment on above: Performed By: #### M G, CMP, CMADM, BNP, ALIYAH, LIPA #### [facility] [address] [address] [address] Lawrence Wayne HSTROP <4.0 Normal 4.0-51.3 [facility] Comment on above: Result Comment: CUT- OFF POINTS HAVE BEEN ESTABLISHED BASED ON THE FOURTH UNIVERSAL DEFINITIONS OF MYOCARDIAL INFARCTION. THE UPPER REFERENCE LIMIT (URL) OF TROPONIN, DEFINED THE 99TH PERCENTILE OF cTnI DISTRIBUTION IN A REFERENCE POPULATION, HAS BEEN CONFIRMED THE DECISION THRESHOLD FOR VA DIAGNOSIS. Performed By: #### M G, CMP, CMADM, BNP, ALIYAH, LIPA #### [facility] [address] [address] [address] Lawrence Wayne GEORGI 47 ng/mL Normal 9-82 [facility] Comment on above: Performed By: #### M G, CMP, CMADM, BNP, ALIYAH, LIPA #### [facility] [address] [address] [address] Lawrence Wayne CBC AUTO DIFFon 02-06-2022 BASO # 0.1 103/ul Normal 0.0-0.1 [facility] Comment on above: Performed By: #### C BC ####[facility] [address] [address]Dr. Lawrence Wayne Basophils/100 WBC (Bld) 0.7 % Normal 0.2-2.0 [facility] Comment on above: Performed By: #### C BC ####[facility] [address] [place], [place] [address]DrKim Wayne EO # 0.1 103/ul Normal 0.0-0.7 [facility] Comment on above: Performed By: #### C BC ####[facility] [address] [place], [place] [address]Dr. Lawrence Wayne Eosinophils/100 WBC (Bld) 1.1 % Normal 0.9-7.0 [facility] Comment on above: Performed By: #### C BC ####[facility] [address] [place], [place] [address]Dr. Lawrence Wayne Erythrocyte distribution width (RBC) [Ratio] 12.6 % Normal 11.0-15.0 [facility] Comment on above: Performed By: #### C BC ####[facility] [address] [place], [place] [address]Dr. Lawrence Wayne Hematocrit (Bld) [Volume fraction] 44.3 % Normal 36.0-48.0 [facility] Comment on above: Performed By: #### C BC ####[facility] [address] [place], [place] [address]DrKim Wayne Hemoglobin (Bld) [Mass/Vol] 14.4 g/dL Normal 12.0-16.0 [facility] Comment on above: Performed By: #### C BC ####[facility] [address] [place], [place] [address]DrKim Wayne IG # 0.01 10e3/ul Normal 0.00-0.03 [facility] Comment on above: Performed By: #### C BC ####[facility] [address] [place], [place] [address]DrKim Wayne IG % 0.1 % Normal 0.0-0.5 [facility] Comment on above: Performed By: #### C BC ####[facility] [address] [place], [place] [address]DrKim Wayne LYMPH # 2.1 103/ul Normal 1.2-3.8 [facility] Comment on above: Performed By: #### C BC ####[facility] [address] [address]Dr. Lawrence Wayne Lymphocytes/100 WBC (Bld) 29.6 % Normal 20.5-60.0 [facility] Comment on above: Performed By: #### C BC ####[facility] [address] [address]Dr. Lawrence Wayne MANUAL DIFF REQ NO Normal [facility] Comment on above: Performed By: #### C BC ####[facility] [address] [address]Dr. Lawrence Wayne MCH (RBC) [Entitic mass] 30.4 pg Normal 26.7-34.0 [facility] Comment on above: Performed By: #### C BC ####[facility] [address] [place], [place] [address]Dr. Lawrence Wayne MCHC (RBC) [Mass/Vol] 32.5 g/dL Normal 29.9-35.2 [facility] Comment on above: Performed By: #### C BC ####[facility] [address] [place], [place] [address]Dr. Lawrence Wayne MCV (RBC) [Entitic vol] 93.7 fL Normal 81.0-99.0 [facility] Comment on above: Performed By: #### C BC ####[facility] [address] [place], [place] [address]Dr. Lawrence Wayne MONO # 0.8 103/ul Normal 0.3-0.8 [facility] Comment on above: Performed By: #### C BC ####[facility] [address] [place], [place] [address]Dr. Lawrence Wayne Monocytes/100 WBC (Bld) 10.6 % Normal 1.7-12.0 [facility] Comment on above: Performed By: #### C BC ####[facility] [address] [place], [place] [address]Dr. Lawrence Wayne NEUT # 4.1 103/ul Normal 1.4-6.5 [facility] Comment on above: Performed By: #### C BC ####[facility] [address] [address]Dr. Lawrence Wayne Neutrophils/100 WBC (Bld) 57.9 % Normal 43.0-75.0 [facility] Comment on above: Performed By: #### C BC ####[facility] [address] [address]Dr. Lawrence Wayne Platelet mean volume (Bld) [Entitic vol] 9.3 fL Critically low 9.5-13.5 [facility] Comment on above: Performed By: #### C BC ####[facility] [address] [place], [place] [address]Dr. Lawrence Wayne PLT 294 103/ul Normal 150-450 [facility] Comment on above: Performed By: #### C BC ####[facility] In[address] [place], [place] [address]Dr. Lawrence Wayne RBC 4.73 106/ul Normal 4.20-5.40 [facility] Comment on above: Performed By: #### C BC ####[facility] [address] [place], [place] [address]Dr. Lawrence Wayne WBC 7.1 103/ul Normal 4.0-11.0 [facility] Comment on above: Performed By: #### C BC ####[facility] [address] [place], [place] [address]Dr. Lawrence Wayne CULTURE BLOODon 02-06-2022 Microscopic examination of blood, culture Culture Observations: NO GROWTH AT 5 DAYS. Normal [facility] Comment on above: Performed By: #### B LDCX2 ####[facility] [address] [place], [place] [address]Dr. Lawrence Wayne Microscopic examination of blood, culture Culture Observations: NO GROWTH AT 5 DAYS. Normal [facility] Comment on above: Performed By: #### B LDCX1 ####[facility] [address] [place], [place] [address]Dr. Lawrence Wayne CULTURE URINEon 02-06-2022 CULTURE URINE Culture Observations: NO GROWTH. Normal [facility] Comment on above: Performed By: #### U RCX ####[facility] [address] [address]DrKim Wayne Covid-19 PCR ([facility]on 01-14 SARS-CoV-2 (COVID-19) RNA EVELIA+probe Ql (Unsp spec) Not detected Normal NOT DETECTED [facility] Comment on above: Result Comment: When [...] for this test is supported by the [place] of Health and Human Service's declaration that [...] used). Performed By: #### C VDTBH ####[facility] [address] [address]Dr. Lawrence Wayne LACTATE/LACTIC ACIDon 2021 Lactate [Moles/Vol] 1.1 mmol/L Normal 0.4-1.9 [facility] Comment on above: Performed By: #### A MY, CMP, LIPA #### [facility] [address] [place] [address] Dr. Lawrence Wayne LIPASEon 02-06-2022 Lipase [Catalytic activity/Vol] 107.0 U/L Normal 73.0-393.0 [facility] Comment on above: Performed By: #### M G, CMP, CMADM, BNP, ALIYAH, LIPA #### [facility] [address] [place] [address] Dr. Lawrence Wayne MAGNESIUMon 02-06-2022 Magnesium [Mass/Vol] 2.3 mg/dL Normal 1.8-2.4 [facility] Comment on above: Performed By: #### M G, CMP, CMADM, BNP, ALIYAH, LIPA ####[facility] [address] [address]Dr. Lawrence Wayne PROF 14(COMP METB)on 022 Albumin [Mass/Vol] 3.8 g/dL Normal 3.4-5.0 [facility] Comment on above: Performed By: #### M G, CMP, CMADM, BNP, ALIYAH, LIPA #### [facility] [address] [address] [address] Lawrence Wayne Albumin/Globulin [Mass ratio] 1.1 {ratio} Normal [facility] Comment on above: Performed By: #### M G, CMP, CMADM, BNP, ALIYAH, LIPA #### [facility] [address] [place] [address] Dr. Lawrence Wayne ALP [Catalytic activity/Vol] 98 U/L Normal 46-116 [facility] Comment on above: Performed By: #### M G, CMP, CMADM, BNP, ALIYAH, LIPA #### [facility] [address] [address] [address] Lawrence Wayne ALT [Catalytic activity/Vol] 26 U/L Normal 14-59 [facility] Comment on above: Performed By: #### M G, CMP, CMADM, BNP, ALIYAH, LIPA #### [facility] [address] [address] [address] Lawrence Wayne Anion gap [Moles/Vol] 12.9 mmol/L Normal [facility] Comment on above: Performed By: #### M G, CMP, CMADM, BNP, ALIYAH, LIPA #### [facility] [address] [place] [address] Dr. Lawrence Wayne AST [Catalytic activity/Vol] 25 U/L Normal 15-37 [facility] Comment on above: Performed By: #### M G, CMP, CMADM, BNP, ALIYAH, LIPA #### [facility] [address] [address] [address] Lawrence Wayne Bilirubin [Mass/Vol] 0.3 mg/dL Normal 0.2-1.0 [facility] Comment on above: Performed By: #### M G, CMP, CMADM, BNP, ALIYAH, LIPA #### [facility] [address] [place] [address] Dr. Lawrence Wayne Calcium [Mass/Vol] 9.1 mg/dL Normal 8.5-10.1 [facility] Comment on above: Performed By: #### M G, CMP, CMADM, BNP, ALIYAH, LIPA #### [facility] [address] [place] [address] Dr. Lawrence Wayne Chloride [Moles/Vol] 105 mmol/L Normal 98-107 [facility] Comment on above: Performed By: #### M G, CMP, CMADM, BNP, ALIYAH, LIPA #### [facility] [address] [place] [address] Dr. Lawrence Wayne CO2 [Moles/Vol] 24.0 mmol/L Normal 21.0-32.0 [facility] Comment on above: Performed By: #### M G, CMP, CMADM, BNP, ALIYAH, LIPA #### [facility] [address] [place] [address] Dr. Lawrence Wayne Creatinine [Mass/Vol] 0.90 mg/dL Normal 0.55-1.02 [facility] Comment on above: Performed By: #### M G, CMP, CMADM, BNP, ALIYAH, LIPA #### [facility] [address] [place] [address] Dr. Lawrence Wayne EGFR-AF ST LUCIAN >60 Normal >=60 [facility] Comment on above: Performed By: #### M G, CMP, CMADM, BNP, ALIYAH, LIPA #### [facility] [address] [place] [address] Dr. Lawrence Wayne EGFR-NON AF [facility] LUCIAN >60 Normal >=60 [facility] Comment on above: Performed By: #### M G, CMP, CMADM, BNP, ALIYAH, LIPA #### [facility] [address] [address] [address] Lawrence Wayne Globulin (S) [Mass/Vol] 3.5 g/dL Normal [facility] Comment on above: Performed By: #### M G, CMP, CMADM, BNP, ALIYAH, LIPA #### [facility] [address] [address] [address] Lawrence Wayne Glucose [Mass/Vol] 95 mg/dL Normal 74-106 [facility] Comment on above: Performed By: #### M G, CMP, CMADM, BNP, ALIYAH, LIPA #### [facility] [address] [address] [address] Lawrence Wayne Potassium [Moles/Vol] 3.9 mmol/L Normal 3.5-5.1 [facility] Comment on above: Performed By: #### M G, CMP, CMADM, BNP, ALIYAH, LIPA #### [facility] [address] [address] [address] Lawrence Wayne Protein [Mass/Vol] 7.3 g/dL Normal 6.4-8.2 [facility] Comment on above: Performed By: #### M G, CMP, CMADM, BNP, ALIYAH, LIPA #### [facility] [address] [place] [address] Dr. Lawrence Wayne Sodium [Moles/Vol] 138 mmol/L Normal 136-145 [facility] Comment on above: Performed By: #### M G, CMP, CMADM, BNP, ALIYAH, LIPA #### [facility] [address] [place] [address] Dr. Lawrence Wayne Urea nitrogen [Mass/Vol] 12.0 mg/dL Normal 7.0-18.0 [facility] Comment on above: Performed By: #### M G, CMP, CMADM, BNP, ALIYAH, LIPA #### [facility] [address] [address] [address] Lawrence Wayne Urea nitrogen/Creatinine [Mass ratio] 13.3 mg/mg Normal [facility] Comment on above: Performed By: #### M G, CMP, CMADM, BNP, ALIYAH, LIPA #### [facility] [address] [address] [address] Lawrence Wayne UA RANDOM W/MICROSCOPICon BACTERIA NONE SEEN Normal NONE SEEN [facility] Comment on above: Performed By: #### A MY, CMP, LIPA #### [facility] [address] [place] [address] Dr. Lawrence Wayne Bilirubin Ql (U) Negative Normal NEGATIVE [facility] Comment on above: Performed By: #### A MY, CMP, LIPA #### [facility] [address] [place] [address] Dr. Lawrence Wayne CAST NONE SEEN Normal NONE SEEN [facility] Comment on above: Performed By: #### A MY, CMP, LIPA #### [facility] [address] [place] [address] Dr. Lawrence Wayne Clarity (U) CLEAR Normal CLEAR [facility] Comment on above: Performed By: #### A MY, CMP, LIPA #### [facility] [address] [place] [address] Dr. Lawrence Wayne Color (U) LT. YELLOW Normal YELLOW [facility] Comment on above: Performed By: #### A MY, CMP, LIPA #### [facility] [address] [place] [address] Dr. Lawrence Wayne Crystals LM Nom (Urine sed) NONE SEEN Normal NONE SEEN [facility] Comment on above: Performed By: #### A MY, CMP, LIPA #### [facility] [address] [place] [address] Dr. Lawrence Wayne Epithelial cells LM Ql (Urine sed) FEW Abnormal NONE SEEN /RARE [facility] Comment on above: Performed By: #### A MY, CMP, LIPA #### [facility] [address] [place] [address] Dr. Lawrence Wayne Glucose Ql (U) Negative Normal NEGATIVE The [facility] Comment on above: Performed By: #### A MY, CMP, LIPA #### [facility] [address] [place] [address] Dr. Lawrence Wayne Hemoglobin Ql (U) Negative Normal NEGATIVE The [facility] Comment on above: Performed By: #### A MY, CMP, LIPA #### [facility] [address] [address] [address] Lawrence Wayne Ketones Ql (U) Negative Normal NEGATIVE [facility] Comment on above: Performed By: #### A MY, CMP, LIPA #### [facility] [address] [address] [address] Lawrence Wayne LEUKOCYTES SMALL Abnormal NEGATIVE [facility] Comment on above: Performed By: #### A MY, CMP, LIPA #### [facility] [address] [address] [address] Lawrence Wayne MUCOUS NONE SEEN Normal NONE SEEN [facility] Comment on above: Performed By: #### A MY, CMP, LIPA #### [facility] [address] [place] [address] Dr. Lawrence Wayne Nitrite Ql (U) Negative Normal NEGATIVE [facility] Comment on above: Performed By: #### A MY, CMP, LIPA #### [facility] [address] [place] [address] Dr. Lawrence Wayne pH (U) 6.0 [pH] Normal 5-9 [facility] Comment on above: Performed By: #### A MY, CMP, LIPA #### [facility] [address] [place] [address] Dr. Lawrence Wayne RBC NONE SEEN Abnormal 0-2 [facility] Comment on above: Performed By: #### A MY, CMP, LIPA #### [facility] [address] [address] [address] Lawrence Wayne SPEC GRAVITY <=1.005 Abnormal 1.005-<=1.025 The [facility] Comment on above: Performed By: #### A MY, CMP, LIPA #### [facility] [address] [address] [address] Lawrence Wayne UA PROTEIN Negative Normal NEGATIVE/ TRACE [facility] Comment on above: Performed By: #### A MY, CMP, LIPA #### [facility] [address] [address] [address] Lawrence Wayne Urobilinogen Qn (U) 0.2 {Antonina'U}/dL Normal 0.2 - 1. 0 [facility] Comment on above: Performed By: #### A MY, CMP, LIPA #### [facility] [address] [address] [address] Lawrence Wayne WBC 0-2 Abnormal NONE SEEN [facility] Comment on above: Performed By: #### A MY, CMP, LIPA #### [facility] [address] [address] [address] Lawrence Wayne YEAST PRESENT Abnormal NONE SEEN [facility] Comment on above: Performed By: #### A MY, CMP, LIPA #### [facility] [address] [address] [address] Lawrence Wayne XR ABD FLAT UP_PA [...] MOREJON Date: 2022-02-06 16:08 Normal [facility] CTA CHEST WO W CONon 022 [...] by: MARK RIOS Date: 2021-08-29 12:20 Normal [facility] XR ABD FLAT_UPon 08-27-2021 XR ABD [...] ENEDELIA FOLEY Date: 2021-08-27 16:08 Normal [facility] BNPon 08-21-2021 Natriuretic peptide B (Bld) [Mass/Vol] 51.0 pg/mL Normal <=900.0 [facility] Comment on above: Performed By: #### A MY, CMP, LIPA #### [facility] [address] [place] [address] Dr. Lawrence Wayne CBC AUTO DIFFon 08-21-2021 BASO # 0.0 103/ul Normal 0.0-0.1 [facility] Comment on above: Performed By: #### A MY, CMP, LIPA #### [facility] [address] [address] [address] Lawrence Wayne Basophils/100 WBC (Bld) 0.2 % Normal 0.2-2.0 [facility] Comment on above: Performed By: #### A MY, CMP, LIPA #### [facility] [address] [place] [address] Dr. Lawrence Wayne EO # 0.0 103/ul Normal 0.0-0.7 [facility] Comment on above: Performed By: #### A MY, CMP, LIPA #### [facility] [address] [place] [address] Dr. Lawrence Wayne Eosinophils/100 WBC (Bld) 0.1 % Critically low 0.9-7.0 [facility] Comment on above: Performed By: #### A MY, CMP, LIPA #### [facility] [address] [place] [address] Dr. Lawrence Wayne Erythrocyte distribution width (RBC) [Ratio] 13.3 % Normal 11.0-15.0 [facility] Comment on above: Performed By: #### A MY, CMP, LIPA #### [facility] [address] [place] [address] Dr. Lawrence Wayne Hematocrit (Bld) [Volume fraction] 45.7 % Normal 36.0-48.0 [facility] Comment on above: Performed By: #### A MY, CMP, LIPA #### [facility] [address] [place] [address] Dr. Lawrence Wayne Hemoglobin (Bld) [Mass/Vol] 15.3 g/dL Normal 12.0-16.0 [facility] Comment on above: Performed By: #### A MY, CMP, LIPA #### [facility] [address] [place] [address] Dr. aLwrence Wayne IG # 0.12 10e3/ul Critically high 0.00-0.03 [facility] Comment on above: Performed By: #### A MY, CMP, LIPA #### [facility] [address] [place] [address] Dr. Lawrence Wayne IG % 0.9 % Critically high 0.0-0.5 [facility] Comment on above: Performed By: #### A MY, CMP, LIPA #### [facility] [address] [place] [address] Dr. Lawrence Wayne LYMPH # 1.6 103/ul Normal 1.2-3.8 [facility] Comment on above: Performed By: #### A MY, CMP, LIPA #### [facility] [address] [place] [address] Dr. Lawrence Wayne Lymphocytes/100 WBC (Bld) 11.9 % Critically low 20.5-60.0 [facility] Comment on above: Performed By: #### A MY, CMP, LIPA #### [facility] [address] [place] [address] Dr. Lawrence Wayne MANUAL DIFF REQ NO Normal [facility] Comment on above: Performed By: #### A MY, CMP, LIPA #### [facility] [address] [place] [address] Dr. Lawrence Wayne MCH (RBC) [Entitic mass] 30.2 pg Normal 26.7-34.0 [facility] Comment on above: Performed By: #### A MY, CMP, LIPA #### [facility] [address] [place] [address] Dr. Lawrence Wayne MCHC (RBC) [Mass/Vol] 33.5 g/dL Normal 29.9-35.2 [facility] Comment on above: Performed By: #### A MY, CMP, LIPA #### [facility] [address] [place] [address] Dr. Lawrence Wayne MCV (RBC) [Entitic vol] 90.1 fL Normal 81.0-99.0 [facility] Comment on above: Performed By: #### A MY, CMP, LIPA #### [facility] [address] [place] [address] Dr. Lawrence Wayne MONO # 1.0 103/ul Critically high 0.3-0.8 [facility] Comment on above: Performed By: #### A MY, CMP, LIPA #### [facility] [address] [address] [address] Lawrence Wayne Monocytes/100 WBC (Bld) 7.2 % Normal 1.7-12.0 [facility] Comment on above: Performed By: #### A MY, CMP, LIPA #### [facility] [address] [place] [address] Dr. Lawrence Wayne NEUT # 11.0 103/ul Critically high 1.4-6.5 [facility] Comment on above: Performed By: #### A MY, CMP, LIPA #### [facility] [address] [place] [address] Dr. Lawrence Wayne Neutrophils/100 WBC (Bld) 79.7 % Critically high 43.0-75.0 [facility] Comment on above: Performed By: #### A MY, CMP, LIPA #### [facility] [address] [place] [address] Dr. Lawrence Wayne Platelet mean volume (Bld) [Entitic vol] 9.1 fL Critically low 9.5-13.5 [facility] Comment on above: Performed By: #### A MY, CMP, LIPA #### [facility] [address] [place] [address] Dr. Lawrence Wayne PLT 434 103/ul Normal 150-450 [facility] Comment on above: Performed By: #### A MY, CMP, LIPA #### [facility] [address] [place] [address] Dr. Lawrence Wayne RBC 5.07 106/ul Normal 4.20-5.40 [facility] Comment on above: Performed By: #### A MY, CMP, LIPA #### [facility] [address] [place] [address] Dr. Lawrence Wayne WBC 13.8 103/ul Critically high 4.0-11.0 [facility] Comment on above: Performed By: #### A MY, CMP, LIPA #### [facility] [address] [place] [address] Dr. Lawrence Wayne PROF 14(COMP METB)on 022 Albumin [Mass/Vol] 3.9 g/dL Normal 3.5-5.0 [facility] Comment on above: Performed By: #### A MY, CMP, LIPA #### [facility] [address] [address] [address] Lawrence Wayne Albumin/Globulin [Mass ratio] 1.0 {ratio} Normal [facility] Comment on above: Performed By: #### A MY, CMP, LIPA #### [facility] [address] [address] [address] Lawrence Wayne ALP [Catalytic activity/Vol] 104 U/L Normal 38-126 [facility] Comment on above: Performed By: #### A MY, CMP, LIPA #### [facility] [address] [address] [address] Lawrence Wayne ALT [Catalytic activity/Vol] 20 U/L Normal 9-52 [facility] Comment on above: Performed By: #### A MY, CMP, LIPA #### [facility] [address] [address] [address] Lawrence Wayne Anion gap [Moles/Vol] 15.5 mmol/L Normal [facility] Comment on above: Performed By: #### A MY, CMP, LIPA #### [facility] [address] [address] [address] Lawrence Wayne AST [Catalytic activity/Vol] 13 U/L Critically low 14-36 [facility] Comment on above: Performed By: #### A MY, CMP, LIPA #### [facility] [address] [address] [address] Lawrence Wayne Bilirubin [Mass/Vol] 0.4 mg/dL Normal 0.2-1.3 [facility] Comment on above: Performed By: #### A MY, CMP, LIPA #### [facility] [address] [address] [address] Lawrence Wayne Calcium [Mass/Vol] 9.4 mg/dL Normal 8.4-10.2 [facility] Comment on above: Performed By: #### A MY, CMP, LIPA #### [facility] [address] [address] [address] Lawrence Wayne Chloride [Moles/Vol] 100 mmol/L Normal 98-107 [facility] Comment on above: Performed By: #### A MY, CMP, LIPA #### [facility] [address] [address] [address] Lawrence Wayne CO2 [Moles/Vol] 23.9 mmol/L Normal 22.0-30.0 [facility] Comment on above: Performed By: #### A MY, CMP, LIPA #### [facility] [address] [address] [address] Lawrence Wayne Creatinine [Mass/Vol] 0.97 mg/dL Normal 0.52-1.04 [facility] Comment on above: Performed By: #### A MY, CMP, LIPA #### [facility] [address] [place] [address] Dr. Lawrence Wayne EGFR-AF ST LUCIAN >60 Normal >=60 [facility] Comment on above: Performed By: #### A MY, CMP, LIPA #### [facility] [address] [place] [address] Dr. Lawrence Wayne EGFR-NON AF ST LUCIAN 58 mL/min/1.73m2 Critically low >=60 [facility] Comment on above: Performed By: #### A MY, CMP, LIPA #### [facility] [address] [place] [address] Dr. Lawrence Wayne Globulin (S) [Mass/Vol] 3.8 g/dL Normal [facility] Comment on above: Performed By: #### A MY, CMP, LIPA #### [facility] [address] [place] [address] Dr. Lawrence Wayne Glucose [Mass/Vol] 169 mg/dL Critically high 74-106 [facility] Comment on above: Performed By: #### A MY, CMP, LIPA #### [facility] [address] [place] [address] Dr. Lawrence Wayne Potassium [Moles/Vol] 3.4 mmol/L Normal 3.4-5.0 [facility] Comment on above: Performed By: #### A MY, CMP, LIPA #### [facility] [address] [address] [address] Lawrence Wayne Protein [Mass/Vol] 7.7 g/dL Normal 6.1-8.2 [facility] Comment on above: Performed By: #### A MY, CMP, LIPA #### [facility] [address] [address] [address] Lawrence Wayne Sodium [Moles/Vol] 136 mmol/L Critically low 137-145 [facility] Comment on above: Performed By: #### A MY, CMP, LIPA #### [facility] [address] [address] [address] Lawrence Wayne Urea nitrogen [Mass/Vol] 16.0 mg/dL Normal 7.0-17.0 [facility] Comment on above: Performed By: #### A MY CMP, LIPA #### [facility] [address] [address] [address] Lawrence Wayne Urea nitrogen/Creatinine [Mass ratio] 16.5 mg/mg Normal [facility] Comment on above: Performed By: #### A MY, CMP, LIPA #### [facility] [address] [address] [address] Lawrence Wayne AMIRA by IFAon 08-12-2021 Antinuclear Antibodies, IFA Positive Abnormal [facility] Comment on above: Result Comment: Nega tive <1:80 Borderline 1:80 Positive >1:80 Performed By: #### A NAIFA ####[facility] [address] [address]DrKim Wayne Centriole Pattern Normal [facility] Comment on above: Performed By: #### A NAIFA ####[facility] [address] [id number] Wayne Centromere Pattern Normal [facility] Comment on above: Performed By: #### A NAIFA ####[facility] [address] [id number]. Lawrence Wayne Homogeneous Pattern Normal [facility] Comment on above: Performed By: #### A NAIFA ####[facility] [address] [place], [place] [address]Jp. Lawrence Wayne Midbody Pattern Normal [facility] Comment on above: Performed By: #### A NAIFA ####[facility] [address] [place], [place] [address]Bk. Lawrence Wayne Note: Comment Normal [facility] Comment on above: Result Comment: For [...] titers Nucleosomes, Histones Drug-induced SLE Speckled Sm, HONING JOB SETTER, SCL-70, SLE,MCTD,PSS (diffuse form), SS-A/SS-B Sjogrens Nucleolar SCL-70, PM-1/SCL High titers Scleroderma, PM/DM Centromere Centromere PSS (limited form) w/Crest syndrome variable Nuclear Dot [id number] Primary Biliary Cirrhosis Nuclear GP210, Primary Biliary Cirrhosis Membrane hamilton A,B,C Performed By: #### A NACHIDIA ####[facility] [address] [place], [place] [address]Dr. Lawrence Wayne Nuclear Dot Pattern Normal [facility] Comment on above: Performed By: #### A NAIFA ####[facility] [address] [place], [place] [address]Dr. Lawrence Wayne Nuclear Membrane Pattern Normal [facility] Comment on above: Performed By: #### A NAIFA ####[facility] [address] [address]Dr. Lawrence Wayne Nucleolar Pattern Normal [facility] Comment on above: Performed By: #### A NAIFA ####[facility] [address] [place], [place] [address]Dr. Lawrence Wayne PCNA Pattern Normal [facility] Comment on above: Performed By: #### A NAIFA ####[facility] [address] [place], [place] [address]Dr. Lawrence Wayne Speckled Pattern 1:160 Critically high [facility] Comment on above: Result Comment: ICAP nomenclature: AC-2,4,5,29 Performed By: #### A NAIFA ####[facility] [address] [address]Dr[address] Wayne Spindle Apparatus Pattern Normal [facility] Comment on above: Performed By: #### A NAIFA ####[facility] [address] [address]Dr[address] Wayne AMIRA DIRECTon 08-11-2021 AMIRA Direct Positive Abnormal Negative [facility] Comment on above: Performed By: #### A NAD ####[facility] [address] [address]Dr. Lawrence Wayne SLE PROFILE Aon 08-11-2021 Anti-DNA (DS) Ab Qn 1 IU/mL Normal 0-9 [facility] Comment on above: Result Comment: Nega tive <5 Equivocal 5 - 9 Positive >9 Performed By: #### A MY, CMP, LIPA #### [facility] [address] [address] [address] Lawrence Wayne Antichromatin Antibodies <0.2 Normal 0.0-0.9 [facility] Comment on above: Performed By: #### A MY, CMP, LIPA #### [facility] [address] [address] [address] Lawrence Wayne RA Latex Turbid. <10.0 Normal <14.0 [facility] Comment on above: Performed By: #### A MY, CMP, LIPA #### [facility] [address] [address] [address] Lawrence Wayne HONING JOB SETTER Antibodies <0.2 Normal 0.0-0.9 [facility] Comment on above: Performed By: #### A MY, CMP, LIPA #### [facility] [address] [address] [address] Lawrence Wayne Sjogren's Anti-SS-A 1.4 AI Critically high 0.0-0.9 [facility] Comment on above: Performed By: #### A MY, CMP, LIPA #### [facility] [address] [place] [address] Dr. Lawrence Wayne Sjogren's Anti-SS-B <0.2 Normal 0.0-0.9 [facility] Comment on above: Performed By: #### A MY, CMP, LIPA #### [facility] [address] [place] [address] Dr. Lawrence Wayne Ramos Antibodies <0.2 Normal 0.0-0.9 [facility] Comment on above: Performed By: #### A MY, CMP, LIPA #### [facility] [address] [place] [address] Dr. Lawrence Wayne ANTISTREPTOLYSIN O AB (ASO)o n 08-10-2021 Antistreptolysin O Ab 55.6 IU/mL Normal 0.0-200.0 [facility] Comment on above: Performed By: #### A MY, CMP, LIPA #### [facility] [address] [place] [address] Dr. Lawrence Wayne C3 and C4 COMPLEMENTon 08-10 Complement C3, Serum 124 mg/dL Normal 82-167 [facility] Comment on above: Performed By: #### A MY, CMP, LIPA #### [facility] [address] [place] [address] Dr. Lawrence Wayne Complement C4, Serum 12 mg/dL Normal 12-38 [facility] Comment on above: Performed By: #### A MY, CMP, LIPA #### [facility] [address] [place] [address] Dr. Lawrence Wayne CBC AUTO DIFFon 08-09-2021 BASO # 0.1 103/ul Normal 0.0-0.1 [facility] Comment on above: Performed By: #### A MY, CMP, LIPA #### [facility] [address] [place] [address] Dr. Lawrence Wayne Basophils/100 WBC (Bld) 0.6 % Normal 0.2-2.0 [facility] Comment on above: Performed By: #### A MY, CMP, LIPA #### [facility] [address] [place] [address] Dr. Lawrence Wayne EO # 0.0 103/ul Normal 0.0-0.7 [facility] Comment on above: Performed By: #### A MY, CMP, LIPA #### [facility] [address] [place] [address] Dr. Lawrence Wayne Eosinophils/100 WBC (Bld) 0.2 % Critically low 0.9-7.0 [facility] Comment on above: Performed By: #### A MY, CMP, LIPA #### [facility] [address] [place] [address] Dr. Lawrence Wayne Erythrocyte distribution width (RBC) [Ratio] 13.4 % Normal 11.0-15.0 [facility] Comment on above: Performed By: #### A MY, CMP, LIPA #### [facility] [address] [place] [address] Dr. Lawrence Wayne Hematocrit (Bld) [Volume fraction] 43.6 % Normal 36.0-48.0 [facility] Comment on above: Performed By: #### A MY, CMP, LIPA #### [facility] [address] [place] [address] Dr. Lawrence Wayne Hemoglobin (Bld) [Mass/Vol] 14.2 g/dL Normal 12.0-16.0 [facility] Comment on above: Performed By: #### A MY, CMP, LIPA #### [facility] [address] [place] [address] Dr. Lawrence Wayne IG # 0.03 10e3/ul Normal 0.00-0.03 [facility] Comment on above: Performed By: #### A MY, CMP, LIPA #### [facility] [address] [place] [address] Dr. Lawrence Wayne IG % 0.3 % Normal 0.0-0.5 [facility] Comment on above: Performed By: #### A MY, CMP, LIPA #### [facility] [address] [place] [address] Dr. Lawrence Wayne LYMPH # 1.1 103/ul Critically low 1.2-3.8 [facility] Comment on above: Performed By: #### A MY, CMP, LIPA #### [facility] [address] [place] [address] Dr. Lawrence Wayne Lymphocytes/100 WBC (Bld) 12.7 % Critically low 20.5-60.0 [facility] Comment on above: Performed By: #### A MY, CMP, LIPA #### [facility] [address] [place] [address] Dr. Lawrence Wayne MANUAL DIFF REQ NO Normal [facility] Comment on above: Performed By: #### A MY, CMP, LIPA #### [facility] [address] [place] [address] Dr. Lawrence Wayne MCH (RBC) [Entitic mass] 30.3 pg Normal 26.7-34.0 [facility] Comment on above: Performed By: #### A MY, CMP, LIPA #### [facility] [address] [place] [address] Dr. Lawrence Wayne MCHC (RBC) [Mass/Vol] 32.6 g/dL Normal 29.9-35.2 [facility] Comment on above: Performed By: #### A MY, CMP, LIPA #### [facility] [address] [place] [address] Dr. Lawrence Wayne MCV (RBC) [Entitic vol] 93.0 fL Normal 81.0-99.0 [facility] Comment on above: Performed By: #### A MY, CMP, LIPA #### [facility] [address] [place] [address] Dr. Lawrence Wayne MONO # 0.3 103/ul Normal 0.3-0.8 [facility] Comment on above: Performed By: #### A MY, CMP, LIPA #### [facility] [address] [place] [address] Dr. Lawrence Wayne Monocytes/100 WBC (Bld) 3.7 % Normal 1.7-12.0 [facility] Comment on above: Performed By: #### A MY, CMP, LIPA #### [facility] [address] [address] [address] Lawrence Wayne NEUT # 7.3 103/ul Critically high 1.4-6.5 [facility] Comment on above: Performed By: #### A MY, CMP, LIPA #### [facility] [address] [address] [address] Lawrence Wayne Neutrophils/100 WBC (Bld) 82.5 % Critically high 43.0-75.0 [facility] Comment on above: Performed By: #### A MY, CMP, LIPA #### [facility] [address] [address] [address] Lawrence Wayne Platelet mean volume (Bld) [Entitic vol] 9.6 fL Normal 9.5-13.5 [facility] Comment on above: Performed By: #### A MY, CMP, LIPA #### [facility] [address] [address] [address] Lawrence Wayne PLT 322 103/ul Normal 150-450 [facility] Comment on above: Performed By: #### A MY, CMP, LIPA #### [facility] [address] [address] [address] Lawrence Wayne RBC 4.69 106/ul Normal 4.20-5.40 [facility] Comment on above: Performed By: #### A MY, CMP, LIPA #### [facility] [address] [address] [address] Lawrence Wayne WBC 8.8 103/ul Normal 4.0-11.0 [facility] Comment on above: Performed By: #### A MY, CMP, LIPA #### [facility] [address] [address] [address] Lawrence Wayne CRPon 08-09-2021 CRP [Mass/Vol] mg/L Normal <=1.0 [facility] Comment on above: Performed By: #### A MY, CMP, LIPA #### [facility] [address] [address] [address] Lawrence Wayne IRONon 08-09-2021 Iron [Mass/Vol] 83.0 ug/dL Normal 37.0-170.0 [facility] Comment on above: Performed By: #### A MY CMP, LIPA #### [facility] [address] [address] [address] Lawrence Wayne SED RATE WESTERGRENon 2021 SED RATE 16 mm/hr Normal <=30 [facility] Comment on above: Performed By: #### S EDR ####[facility] [address] [place], [place] [address]PfDr. Lawrence Wayne URIC ACID SERUMon 08-09-2021 Urate [Mass/Vol] 3.4 mg/dL Normal 2.5-6.2 [facility] Comment on above: Performed By: #### A GARTH CMP, LIPA #### [facility] [address] [address] [address] Lawrence Wayne XR CSPINE MIN 4 [...] by: TYRELL MOREJON Date: 2021-08-09 14:37 Normal [facility] H PYLORI ANTIBODY IGGon 06-16 H. PYLORI IGG ABS 0.13 Index Value Normal 0.00-0.79 [facility] Comment on above: Result Comment: Nega tive <0.80 Equivocal 0.80 - 0.89 Positive >0.89 Performed By: #### A MY, CMP, LIPA #### [facility] [address] [address] [address] Lawrence Wayne AMYLASEon 01-27-2022 Amylase [Catalytic activity/Vol] 100 U/L Normal 31-110 [facility] Comment on above: Performed By: #### A MY, CMP, LIPA #### [facility] [address] [place] [address] Dr. Lawrence Wayne CBC AUTO DIFFon 07-11-2021 BASO # 0.1 103/ul Normal 0.0-0.1 [facility] Comment on above: Performed By: #### A MY, CMP, LIPA #### [facility] [address] [place] [address] Dr. Lawrence Wayne Basophils/100 WBC (Bld) 0.7 % Normal 0.2-2.0 [facility] Comment on above: Performed By: #### A MY, CMP, LIPA #### [facility] [address] [place] [address] Dr. Lawrence Wayne EO # 0.1 103/ul Normal 0.0-0.7 [facility] Comment on above: Performed By: #### A MY, CMP, LIPA #### [facility] [address] [place] [address] Dr. Lawrence Wayne Eosinophils/100 WBC (Bld) 1.2 % Normal 0.9-7.0 [facility] Comment on above: Performed By: #### A MY, CMP, LIPA #### [facility] [address] [place] [address] Dr. Lawrence Wayne Erythrocyte distribution width (RBC) [Ratio] 13.9 % Normal 11.0-15.0 [facility] Comment on above: Performed By: #### A MY, CMP, LIPA #### [facility] [address] [place] [address] Dr. Lawrence Wayne Hematocrit (Bld) [Volume fraction] 45.9 % Normal 36.0-48.0 [facility] Comment on above: Performed By: #### A MY, CMP, LIPA #### [facility] [address] [place] [address] Dr. Lawrence Wayne Hemoglobin (Bld) [Mass/Vol] 14.9 g/dL Normal 12.0-16.0 [facility] Comment on above: Performed By: #### A MY, CMP, LIPA #### [facility] [address] [address] [address] Lawrence Wayne IG # 0.03 10e3/ul Normal 0.00-0.03 [facility] Comment on above: Performed By: #### A MY, CMP, LIPA #### [facility] [address] [address] [address] Lawrence Wayne IG % 0.4 % Normal 0.0-0.5 [facility] Comment on above: Performed By: #### A MY, CMP, LIPA #### [facility] [address] [place] [address] Dr. Lawrence Wayne LYMPH # 2.2 103/ul Normal 1.2-3.8 [facility] Comment on above: Performed By: #### A MY, CMP, LIPA #### [facility] [address] [place] [address] Dr. Lawrence Wayne Lymphocytes/100 WBC (Bld) 29.0 % Normal 20.5-60.0 [facility] Comment on above: Performed By: #### A MY, CMP, LIPA #### [facility] [address] [place] [address] Dr. Lawrence Wayne MANUAL DIFF REQ NO Normal [facility] Comment on above: Performed By: #### A MY, CMP, LIPA #### [facility] [address] [place] [address] Dr. Lawrence Wayne MCH (RBC) [Entitic mass] 29.8 pg Normal 26.7-34.0 [facility] Comment on above: Performed By: #### A MY, CMP, LIPA #### [facility] [address] [place] [address] Dr. Lawrence Wayne MCHC (RBC) [Mass/Vol] 32.5 g/dL Normal 29.9-35.2 [facility] Comment on above: Performed By: #### A MY, CMP, LIPA #### [facility] [address] [place] [address] Dr. Lawrence Wayne MCV (RBC) [Entitic vol] 91.8 fL Normal 81.0-99.0 [facility] Comment on above: Performed By: #### A MY, CMP, LIPA #### [facility] [address] [address] [address] Lawrence Wayne MONO # 0.9 103/ul Critically high 0.3-0.8 [facility] Comment on above: Performed By: #### A MY, CMP, LIPA #### [facility] [address] [place] [address] Dr. Lawrence Wayne Monocytes/100 WBC (Bld) 11.7 % Normal 1.7-12.0 [facility] Comment on above: Performed By: #### A MY, CMP, LIPA #### [facility] [address] [place] [address] Dr. Lawrence Wayne NEUT # 4.3 103/ul Normal 1.4-6.5 [facility] Comment on above: Performed By: #### A MY, CMP, LIPA #### [facility] [address] [place] [address] Dr. Lawrence Wayne Neutrophils/100 WBC (Bld) 57.0 % Normal 43.0-75.0 [facility] Comment on above: Performed By: #### A MY, CMP, LIPA #### [facility] [address] [place] [address] Dr. Lawrence Wayne Platelet mean volume (Bld) [Entitic vol] 8.7 fL Critically low 9.5-13.5 [facility] Comment on above: Performed By: #### A MY, CMP, LIPA #### [facility] [address] [place] [address] Dr. Lawrence Wayne PLT 351 103/ul Normal 150-450 [facility] Comment on above: Performed By: #### A MY, CMP, LIPA #### [facility] [address] [place] [address] Dr. Lawrence Wayne RBC 5.00 106/ul Normal 4.20-5.40 [facility] Comment on above: Performed By: #### A MY, CMP, LIPA #### [facility] [address] [address] [address] Lawrence Wayne WBC 7.6 103/ul Normal 4.0-11.0 [facility] Comment on above: Performed By: #### A MY, CMP, LIPA #### [facility] [address] [address] [address] Lawrence Wayne LIPASEon 07-11-2021 Lipase [Catalytic activity/Vol] 93.0 U/L Normal 23.0-300.0 [facility] Comment on above: Performed By: #### A MY, CMP, LIPA #### [facility] [address] [address] [address] Lawrence Wayne PROF 14(COMP METB)on 022 Albumin [Mass/Vol] 4.1 g/dL Normal 3.5-5.0 [facility] Comment on above: Performed By: #### A MY, CMP, LIPA #### [facility] [address] [address] [address] Lawrence Wayne Albumin/Globulin [Mass ratio] 1.1 {ratio} Normal [facility] Comment on above: Performed By: #### A MY, CMP, LIPA #### [facility] [address] [place] [address] Dr. Lawrence Wayne ALP [Catalytic activity/Vol] 101 U/L Normal 38-126 [facility] Comment on above: Performed By: #### A MY, CMP, LIPA #### [facility] [address] [address] [address] Lawrence Wayne ALT [Catalytic activity/Vol] 38 U/L Normal 9-52 [facility] Comment on above: Performed By: #### A MY, CMP, LIPA #### [facility] [address] [place] [address] Dr. Lawrence Wayne Anion gap [Moles/Vol] 12.5 mmol/L Normal [facility] Comment on above: Performed By: #### A MY, CMP, LIPA #### [facility] [address] [place] [address] Dr. Lawrence Wayne AST [Catalytic activity/Vol] 25 U/L Normal 14-36 [facility] Comment on above: Performed By: #### A MY, CMP, LIPA #### [facility] [address] [address] [address] Lawrence Wayne Bilirubin [Mass/Vol] 0.8 mg/dL Normal 0.2-1.3 [facility] Comment on above: Performed By: #### A MY, CMP, LIPA #### [facility] [address] [address] [address] Lawrence Wayne Calcium [Mass/Vol] 9.9 mg/dL Normal 8.4-10.2 [facility] Comment on above: Performed By: #### A MY, CMP, LIPA #### [facility] [address] [place] [address] Dr. Lawrence Wayne Chloride [Moles/Vol] 98 mmol/L Normal 98-107 [facility] Comment on above: Performed By: #### A MY, CMP, LIPA #### [facility] [address] [place] [address] Dr. Lawrence Wayne CO2 [Moles/Vol] 26.6 mmol/L Normal 22.0-30.0 [facility] Comment on above: Performed By: #### A MY, CMP, LIPA #### [facility] [address] [address] [address] Lawrence Wayne Creatinine [Mass/Vol] 1.12 mg/dL Critically high 0.52-1.04 [facility] Comment on above: Performed By: #### A MY, CMP, LIPA #### [facility] [address] [address] [address] Lawrence Wayne EGFR-AF ST LUCIAN 59 mL/min/1.73m2 Critically low >=60 [facility] Comment on above: Performed By: #### A MY, CMP, LIPA #### [facility] [address] [address] [address] Lawrence Wayne EGFR-NON AF [facility] LUCIAN 49 mL/min/1.73m2 Critically low >=60 [facility] Comment on above: Performed By: #### A MY, CMP, LIPA #### [facility] [address] [address] [address] Lawrence Wayne Globulin (S) [Mass/Vol] 3.7 g/dL Normal [facility] Comment on above: Performed By: #### A MY, CMP, LIPA #### [facility] [address] [place] [address] Dr. Lawrence Wayne Glucose [Mass/Vol] 117 mg/dL Critically high 74-106 [facility] Comment on above: Performed By: #### A MY, CMP, LIPA #### [facility] [address] [place] [address] Dr. Lawrence Wayne Potassium [Moles/Vol] 4.1 mmol/L Normal 3.4-5.0 [facility] Comment on above: Performed By: #### A MY, CMP, LIPA #### [facility] [address] [place] [address] Dr. aLwrence Wayne Protein [Mass/Vol] 7.8 g/dL Normal 6.1-8.2 [facility] Comment on above: Performed By: #### A MY, CMP, LIPA #### [facility] [address] [place] [address] Dr. Lawrence Wayne Sodium [Moles/Vol] 133 mmol/L Critically low 137-145 [facility] Comment on above: Performed By: #### A MY, CMP, LIPA #### [facility] [address] [place] [address] Dr. Lawrence Wayne Urea nitrogen [Mass/Vol] 9.0 mg/dL Normal 7.0-17.0 [facility] Comment on above: Performed By: #### A MY, CMP, LIPA #### [facility] [address] [place] [address] Dr. Lawrence Wayne Urea nitrogen/Creatinine [Mass ratio] 8.0 mg/mg Normal [facility] Comment on above: Performed By: #### A MY, CMP, LIPA #### [facility] [address] [place] [address] Dr. Lawrence Wayne Vital Signs Date Time Vital Sign Value Performing Clinician Siobhan escalante 02-07-2025 15:30-0400 Body temperature 98.1 [degF] Anitha Mcgregor MD Work Phone: [facility] 02-07-2025 15:30-0400 Diastolic blood pressure 59 mm[Hg] Anitha Mcgregor MD Work Phone: [facility] 02-07-2025 15:30-0400 Heart rate 65 /min Anitha Mcgregor MD Work Phone: [facility] 02-07-2025 15:30-0400 Respiratory rate 18 /min Anitha Mcgregor MD Work Phone: [facility] 02-07-2025 15:30-0400 SaO2% (BldA) [Mass fraction] 100 % Anitha Mcgregor MD Work Phone: [facility] 02-07-2025 15:30-0400 Systolic blood pressure 108 mm[Hg] Anitha Mcgregor MD Work Phone: [facility] 02-07-2025 05:55-0400 Body weight 63.9 kg Anitha Mcgregor MD Work Phone: [facility] 02-06-2025 14:26-0400 Inhaled oxygen flow rate 6 L/min Anitha Mcgregor MD Work Phone: [facility] 02-04-2025 19:57-0400 Body height 160.02 cm Anitha Mcgregor MD Work Phone: [facility] 01-23-2025 09:14-0400 Body height 160.02 cm Anitha Mcgregor MD Work Phone: [facility] 01-23-2025 09:14-0400 Body mass index (BMI) [Ratio] 24.4 kg/m2 Anitha Mcgregor MD Work Phone: [facility] 01-23-2025 09:14-0400 Body weight 62.59 kg Anitha Mcgregor MD Work Phone: [facility] 01-23-2025 09:14-0400 Diastolic blood pressure 64 mm[Hg] Anitha Mcgregor MD Work Phone: [facility] 01-23-2025 09:14-0400 Heart rate 65 /min Anitha Mcgregor MD Work Phone: [facility] 01-23-2025 09:14-0400 Respiratory rate 6 /min Anitha Mcgregor MD Work Phone: [facility] 01-23-2025 09:14-0400 SaO2% (BldA) [Mass fraction] 98 % Anitha Mcgregor MD Work Phone: [facility] 01-23-2025 09:14-0400 Systolic blood pressure 102 mm[Hg] Anitha Mcgregor MD Work Phone: [facility] 08-15-2024 10:22-0500 Body height 160 cm Divya Dudley MD Work Phone: [facility] 08-15-2024 10:22-0500 Body mass index (BMI) [Ratio] 23.56 kg/m2 Divya Dudley MD Work Phone: [facility] 08-15-2024 10:22-0500 Body weight 60.33 kg Divya Dudley MD Work Phone: [facility] 08-15-2024 10:22-0500 Diastolic blood pressure 80 mm[Hg] Divya Dudley MD Work Phone: [facility] 08-15-2024 10:22-0500 Heart rate 73 /min Divya Dudley MD Work Phone: [facility] 08-15-2024 10:22-0500 Systolic blood pressure 124 mm[Hg] Divya Dudley MD Work Phone: [facility] 07-20-2024 14:12-0500 Body mass index (BMI) [Ratio] 23.6 kg/m2 Miguel Ángel Rosales DO Work Phone: [facility] 07-20-2024 14:12-0500 Body weight 60.42 kg Christopher Connie DO Work Phone: [facility] 07-20-2024 14:12-0500 Diastolic blood pressure 84 mm[Hg] Christopher Connie DO Work Phone: [facility] 07-20-2024 14:12-0500 Heart rate 72 /min Christopher Connie DO Work Phone: [facility] 07-20-2024 14:12-0500 SaO2% (BldA) [Mass fraction] 99 % Christopher Connie DO Work Phone: [facility] 07-20-2024 14:12-0500 Systolic blood pressure 132 mm[Hg] Christopher Connie DO Work Phone: [facility] 06-20-2024 10:20-0500 Body height 160 cm Divya Dudley MD Work Phone: [facility] 06-20-2024 10:20-0500 Diastolic blood pressure 71 mm[Hg] Divya Dudley MD Work Phone: [facility] 06-20-2024 10:20-0500 Heart rate 64 /min Divya Dudley MD Work Phone: [facility] 06-20-2024 10:20-0500 Systolic blood pressure 110 mm[Hg] Divya Dudley MD Work Phone: [facility] 05-27-2022 15:00-0500 Body height 160.02 cm Prasad Isabel Other [facility] Other 05-27-2022 15:00-0500 Body mass index (BMI) [Ratio] 23.56 kg/m2 Prasad Isabel Other [facility] Other 05-27-2022 15:00-0500 Body weight 60.33 kg Prasad Isabel Other [facility] Other Encounters Encounter Date Encounter Type Care Provider Facility Start: 02-23-2025 End: 02-23-2025 ambulatory Anitha Mcgregor MD Work Phone: [facility] Work Phone: Start: 02-23-2025 End: 02-23-2025 Patient encounter procedure Ravin Campoverde MD -Ultrasound [facility] Work Phone: Start: 02-21-2025 End: 02-21-2025 ambulatory Anitha Mcgregor MD Work Phone: [facility] Work Phone: Start: 02-21-2025 End: 02-21-2025 Patient encounter procedure Ravin Campoverde MD -[facility] Work Phone: Start: 02-21-2025 End: 02-21-2025 Patient encounter procedure Ravin Campoverde MD -[facility] Start: 02-21-2025 End: 02-21-2025 ambulatory Anitha Mcgregor MD Work Phone: [facility] Work Phone: Start: 02-04-2025 Non-patient / Non-visit Ravin freedman MD -[facility] Work Phone: Start: 02-04-2025 End: 02-07-2025 Evaluation and management of inpatient Ravin Campoverde Facility:[facility] Start: 01-23-2025 End: 01-23-2025 ambulatory Anitha Mcgregor MD Work Phone: [facility] Work Phone: Start: 01-23-2025 End: 01-23-2025 Patient encounter procedure Екатерина Chacon EMT I/99-[employer]ER-C -[facility] [place] Work Phone: Start: 08-15-2024 End: 08-15-2024 Janes Dudley MD Work Phone: [facility] Start: 08-15-2024 End: 08-15-2024 Janes Dudley MD Work Phone: [facility] Start: 08-15-2024 End: 08-15-2024 Office outpatient visit 25 minutes Divya Dudley MD Work Phone: [facility] Comment on above: Oral ulcer (Primary Dx) Start: 08-15-2024 End: 08-15-2024 ambulatory DIVYA DUDLEY Not Available Start: 08-09-2024 End: 08-09-2024 Telephone encounter Divya Dudley MD Work Phone: [facility] Comment on above: Mouth Lesions Start: 07-20-2024 End: 07-20-2024 Office outpatient visit 25 minutes Christopher Connie DO Work Phone: [facility] Comment on above: Memory impairment (P rimary Dx); Anxiety Start: 07-20-2024 End: 07-20-2024 ambulatory MIGUEL ÁNGEL ROSALES Not Available Start: 07-20-2024 End: 07-20-2024 Bamboo flowsheet Miguel Ángel Rosales DO Work Phone: [facility] Start: 07-20-2024 [...] 02-05-2024 Refill Cindy Phan DO Work Phone: [facility] Comment on above: Age-related nuclear cataract of both eyes Start: 02-01-2024 End: 02-01-2024 Refill Cindy Phan DO Work Phone: [facility] Comment on above: Age-related nuclear cataract of both eyes Start: 01-18-2024 End: 01-18-2024 ambulatory Cindy Phan Facility:[facility] Start: 01-11-2024 End: 01-11-2024 ambulatory CINDY PHAN Not Available Start: 11-16-2023 End: 11-16-2023 ambulatory MIGUEL ÁNGEL ROSALES Not Available Start: 11-02-2023 End: 11-02-2023 ambulatory JASVIRJoey SMILEY Not Available Start: 10-08-2023 End: 10-08-2023 ambulatory MIGUEL ÁNGEL ROSALES Not Available Start: 07-27-2023 Bamboo flowsheet Cindy rivero DO Work Phone: [facility] Start: 07-27-2023 Bamboo flowsheet Cindy Naik hler DO Work Phone: [facility] Start: 07-01-2022 End: 07-02-[address] ANITHA MCGREGOR Facility:[facility] Start: 06-23-2022 End: 06-23-2022 ambulatory ANITHA MCGREGOR Facility:[facility] Start: 06-23-2022 End: 06-23-2022 ambulatory Benjamin Moore PA-C Work Phone: [facility] Comment on above: Fibromyalgia (Primar y Dx); Cervicalgia Start: 06-23-2022 End: 06-23-2022 Telemedicine consultation with patient Benjamin BILL-C Work Phone: [facility] Start: 06-17-2022 End: 06-17-[address] JULIANN ROGER Facility:[facility] Start: 06-03-2022 End: 06-03-2022 ambulatory Bentley Bragg Other [facility] Other Start: 06-03-2022 Chart abstracting Unk (Historical) [facility] Start: 06-03-2022 Telephone encounter Bentley Bragg [facility] Start: 05-27-2022 End: 05-27-2022 ambulatory Prasad Isabel Other [facility] [employer] Other Start: 05-27-2022 Office outpatient ne w 30 minutes Prasad Isabel [facility] Start: 05-20-2022 End: 05-21-[address] [...] End: 07-12-[address] ANITHA MCGREGOR Facility:[facility] Procedures Date Procedure Procedure Detail Performing Clinician Start: 02-21-2025 X-ray of left foot Noe Mcgregor MD Work Phone: Start: 02-21-2025 X-ray of left ankle Vito Mcgregor MD Work Phone: Start: 07-27-2023 End: 07-27-2023 Ophth medical xm&eval compre new pt 1/> vst Age-related nuclear cataract of both eyes Cindy Phan DO Work Phone: Comment on above: Age-related nuclear cataract of both eyes (Primary Dx) Start: 03-26-2022 Mammography Cindy cullen DO Work Phone: Plan of Treatment Date Care Activity Detail Author Start: 02-23-2025 Duplex scan of lower limb veins US venous duplex LE BI [facility] Start: 02-21-2025 X-ray of left foot XR foot LT min 3V * [facility] Start: 02-21-2025 XR Foot - left GE 3 Views [facility] Start: 02-21-2025 X-ray of left ankle XR ankle LT min 3V* [facility] Start: 02-21-2025 XR Ankle - left GE 3 Views [facility] Start: 02-07-2025 [facility] Start: 02-06-2025 XR Ankle - left 2 Views [facility] Start: 02-06-2025 Hospital admission [facility] Start: 02-04-2025 Consultation [facility] Start: 02-04-2025 [facility] Start: 01-23-2025 End: 01-23-2025 Patient encounter procedure 01/23/2025 9:40 AM EDT Office Visit [facility] [address] [place] [address] Екатерина Chacon NP [address] [place] [phone] [facility] Start: 09-20-2024 End: 09-20-2024 Patient encounter procedure 09/20/2024 1:30 PM EDT Office Visit [facility] [address] [facility] [address] [place] [phone] Divya Dudley MD [address] [facility] [address] [place], [place] [id number] [facility] Start: 08-15-2024 End: 08-15-2024 Patient encounter procedure 08/15/2024 10:30 AM EST Office Visit [facility] [place] [address] [place] [address] Divya Dudley MD [address] [place] [address] [place] [address] Arrived [facility] Comment on above: Arrived Start: 07-20-2024 End: 07-20-2024 Patient encounter procedure 07/20/2024 2:15 PM EST Office Visit [facility] [address] [place] [phone] Miguel Ángel Rosales DO [address] [place] [address] Arrived [facility] Comment on above: Arrived Start: 06-20-2024 End: 06-20-2024 Patient encounter procedure 06/20/2024 10:30 AM EST Office Visit [facility] [address] [place] [phone] Divya Dudley MD [address] [facility] [address] [place] [address] Arrived [facility] Comment on above: Arrived Start: 02-14-2024 Influenza vaccination [facility] Start: 02-09-2024 End: 02-09-2024 Patient encounter procedure 02/09/2024 7:30 AM EDT Procedure Visit [facility] Cindy Phan DO [address] [place] [address] [facility] Start: 01-11-2024 End: 01-11-2024 Patient encounter procedure 01/11/2024 1:15 PM EDT Office Visit [facility] [address] [place] [phone] Cindy Phan, DO [address] [place] [address] [facility] Start: 07-27-2023 End: 07-27-2023 Patient encounter procedure 07/27/2023 2:15 PM EST Office Visit [facility] [address] [place] [address] Cindy Phan DO [address] [place] [address] Arrived [facility] Comment on above: Arrived Start: 03-26-2023 Screening for malign ant neoplasm of breast Mammogram [facility] Start: 02-13-2023 Influenza vaccination Influenza Vacc ine (#1) [facility] Start: 06-15-2022 ADVANCE DIRECTIVE DISCUSSION ADVANCE DIRECTIVE DISCUSSION [facility] Start: 06-15-2022 [facility] Start: 02-13-2022 Influenza vaccination INFLUENZA (#1) [facility] Start: 12-08-2021 COVID-19 VACCINE (5 - Booster for Moderna series) COVID-19 VACCINE (5 - Booster for Moderna series) [facility] Start: 06-15-2021 ADVANCE DIRECTIVE DISCUSSION ADVANCE DIRECTIVE DISCUSSION [facility] Start: 06-15-2021 DEPRESSION ASSESSMENT DEPRESSION ASS ESSMENT [facility] Start: 01-11-2021 BONE DENSITY BONE DENSITY [facility] Start: 01-11-2021 Pneumococcal Vaccine : 65+ Years (1 - PCV) Pneumococcal Vaccine: 65+ Years (1 - PCV) [facility] Start: 01-11-2021 Pneumococcal Vaccine : 65+ Years (1 of 1 - PCV) Pneumococcal Vaccine: 65+ Years (1 of 1 - PCV) [facility] Start: 01-11-2021 PNEUMOCOCCAL: 65+ (1 - PCV) PNEUMOCOCCAL: 65+ (1 - PCV) [facility] Start: 09-20-2012 DIABETES SCREEN DIABETES SCREEN [facility] Start: 01-11-2006 SHINGRIX VACCINE (1 of 2) SHINGRIX VACCINE (1 of 2) [facility] Start: 01-11-2001 COLOGUARD (FIT-DNA) COLOGUARD (FIT-D NA) [facility] Start: 01-11-2001 Colonoscopy COLONOSCOPY [facility] Start: 01-11-2001 COLORECTAL CANCER SCREENING COLORECTAL CANCER SCREENING [facility] Start: 01-11-[address] COLONOGRAPHY [facility] Start: 01-11-2001 FECAL OCCULT BLOOD FECAL OCCULT BLOO D [facility] Start: 01-11-2001 LIPID SCREEN LIPID SCREEN [facility] Start: 01-11-2001 SIGMOIDOSCOPY SIGMOIDOSCOPY Clebrady schmid [facility] Start: 1996 Mammography MAMMOGRAM [facility] Start: 01-11-1975 Urine microalbumin profile DTAP,TDAP,TD (1 - Tdap) [facility] Start: 01-11-1974 HEPATITIS C SCREENING HEPATITIS C SC REENING [facility] Start: 1956 COVID-19 VACCINE (#1) COVID-19 VACCI NE (#1) [facility] Start: 1955 Screening for malign ant neoplasm of colon [facility] Patient Education Cholecalcifero l Oxycodone Know your Meds [facility] [facility] Work Phone: Patient referral [facility] Work Phone: Immunizations Immunization Date Immunization Notes Care Provider Fa [facility] 04-09-2022 influenza virus vacc ine, unspecified formulation Cindy Phan DO Work Phone: [facility] Payers Date Payer Category Payer Medicare [id number] 2025 Self-pay 2024 Unknown [id number] 2023 Medicare ANTHEM MEDICARE ADVANTAGE ANTHEM MEDICARE ADVANTAGE [id number] 2023-Present [address] [place] [address] [id number] 2023 Medicare (Managed Care) [facility] ADVANTAGE [id number] 2021 Unknown ANTHEM BLUE CROS S AND BLUE SHIELD ANTHEM MEDIBLUE HMO [id number] 2021-Present [phone] [address] [place] [address] HMO [id number] 2.7.3.235566.315 1959 Unknown [id number] 1956 Unknown [id number] 2.16.840.1.652934.3.579. 2.593 1956 Unknown [id number] 2.16.840.1.532885.3.579. 2.593 1956 Unknown [id number] 2.16.840.1.030154.3.579. 2.59 1956 Unknown [id number] 2.16.840.1.342826.3.579. 2.59 1956 Unknown [id number] 2.16.840.1.904513.3.579. 2.593 1956 Unknown [id number] 2.16.840.1.741184.3.579. 2.593 1956 Unknown [id number] 2.16.840.1.166538.3.579. 2.593 1956 Unknown [id number] 2.16.840.1.421476.3.579. 2.593 1956 Unknown [id number] 2.16.840.1.971799.3.579. 2.593 1956 Unknown [id number] 2.16.840.1.807360.3.579. 2.593 1956 Unknown [id number] 2.16.840.1.833984.3.579. 2.593 1956 Unknown [id number] 2.16.840.1.853691.3.579. 2.593 1956 Unknown [id number] 2.16.840.1.877854.3.579. 2.593 1956 Unknown [id number] 2.16.840.1.045116.3.579. 2.727 1956 Unknown [id number] 2.16.840.1.683944.3.579. 2.727 1956 Unknown [id number] 2.16.840.1.935822.3.579. 2.1259 1956 Unknown [id number] 2.16.840.1.448216.3.579. 2.1259 1956 Unknown [id number] 2.16840.1.785491.3.579. 2.1259 1956 Unknown [id number] 2.16.840.1.466497.3.579. 2.1259 1956 Unknown [id number] 2.16.840.1.967984.3.579. 2.1259 1956 Unknown [id number] 2.16.840.1.261614.3.579. 2.1259 1956 Unknown [id number] 2.16840.1.508289.3.579. 2.1259 Unknown [id number] 2.16840.1.471024.3.579. 2.531 Unknown [id number] 2.16840.1.655786.3.579. 2.531 Social History Date Type Detail Facility Start: 04-10-2011 End: 02-04-2025 Tobacco smoking status NHIS Never smoked tobacco [facility] Start: 04-10-2011 End: 07-27-2023 Tobacco use and exposure Smokeless tobacco non-user [facility] Start: 05-13-2018 Alcohol intake Current non-dr c architect of alcohol (finding) [facility] Start: 1955 Sex Assigned At Not on file C [facility] Start: 10-08-2023 End: 08-15-2024 Sex Assigned At [facility] [employer] Other Tobacco smoking status DEIS Tobacco smoking consumption unknown [facility] Start: 10-08-2023 End: 08-15-2024 History of Social function [facility] Start: 06-20-2024 End: 08-15-2024 Alcoholic beverage intake Ex-drinker (finding) [facility] Sex Female (finding) [facility] Start: 1955 Sex Assigned At Female F [facility] Start: 02-07-2025 SDOH Follow up SDOH Follow up [facility] Work Phone: Medical Equipment Procedure Code Equipment Code Equipment Origin al Text Equipment Identifier Dates ORIF, fracture, ankle Orthopaedic bone screw, non-bioabsorbable, non-sterile ()[id number] FDA Start: 02-06-2025 ORIF, fracture, ankle Orthopaedic bone screw, non-bioabsorbable, non-sterile ()[id number] FDA Start: 02-06-2025 ORIF, fracture, ankle Orthopaedic bone screw, non-bioabsorbable, non-sterile ()[id number] FDA Start: 02-06-2025 ORIF, fracture, ankle Orthopaedic bone screw, non-bioabsorbable, non-sterile ()[id number] FDA Start: 02-06-2025 ORIF, fracture, ankle Orthopaedic bone screw, non-bioabsorbable, non-sterile ()[id number] FDA Start: 02-06-2025 ORIF, fracture, ankle Orthopaedic fixation plate, non-bioabsorbable, sterile ()[id number] FDA Start: 02-06-2025 ORIF, fracture, ankle Orthopaedic bone screw, non-bioabsorbable, non-sterile ()[id number] FDA Start: 02-06-2025 ORIF, fracture, ankle Orthopaedic bone screw, non-bioabsorbable, non-sterile ()[id number] FDA Start: 02-06-2025 ORIF, fracture, ankle Orthopaedic bone screw, non-bioabsorbable, non-sterile ()[id number] FDA Start: 02-06-2025 ORIF, fracture, ankle Orthopaedic bone screw, non-bioabsorbable, non-sterile ()[id number] FDA Start: 02-06-2025 ORIF, fracture, ankle Orthopaedic bone screw, non-bioabsorbable, non-sterile ()[id number] FDA Start: 02-06-2025 Clinical Notes 05-27-2022 to 01-23-2025 Note Date & Type Note Facility 01-23-2025 Evaluation note Diagnosis Onset Date Resolution Family history of Alzheimer's disease chronic January 23, 2025 9:13am Memory difficulty chronic January 23, 2025 9:13am Closed left trimalleolar fracture acute January 7:29pm Fibromyalgia acute February 04, 2025 7:29pm History of thoracic outlet syndrome acute February 04 7:29pm [facility] Work Phone: 1(399) 347-949108-11-2025 Evaluation note* Diagnosis Onset Date Resolution Status Admit Date Family history of Alzheimer' s disease chronic January 23 9:13am Memory difficulty chronic January 23, 2025 9:13am Closed left trimalleolar fracture acute February 04 7:29pm Fibromyalgia acute February 04, 2025 7:29pm History of thoracic outlet syndrome acute February 04 7:29pm Closed left trimalleolar fracture acute February 21 025 8:55am Encounter for removal of sutures acute February 21 025 8:55am History of open reduction an d internal fixation (ORIF) procedure acute February 21 025 8:55am Other specified postprocedur al states acute February 21 025 8:55am [facility] Work Phone: 1(570) 573-741208-11-2025 Evaluation note* Diagnosis Onset Date Resolution Status Admit Date Family history of Alzheimer' s disease chronic January 23 9:13am Memory difficulty chronic January 23, 2025 9:13am Closed left trimalleolar fracture acute February 04 7:29pm Fibromyalgia acute February 04, 2025 7:29pm History of thoracic outlet syndrome acute February 04 7:29pm Arthritis of left foot acute Se pt2024 8:55am Closed left trimalleolar fracture acute February 21 025 8:55am Encounter for removal of sutures acute February 21 8:55am History of open reduction an d internal fixation (ORIF) procedure acute February 21 8:55am Other specified postprocedur al states acute February 21 8:55am [facility] Work Phone: 1(836) 459-930803-03-2025 History of Present illness Narrative* Divya Dudley MD - 08/15/2024 10:30 AM EST Subjective Patient ID: Skip Hong is a 69 y.o. female who presents for Mouth Lesions Pt reports she developed an ulceration on the undersurface of the tongue 2 weeks ago. Tx with kenalog and an antifungal. No family history on file. Active Ambulatory Problems Diagnosis Date Noted Age-related nuclear cataract of both eyes 07/27/2023 Carpal tunnel syndrome on both sides 10/08/2023 Advancing dementia ([facility]/HCC) 10/08/2023 Abdominal pain 09/20/2009 Cervical spondylosis without myelopathy 07/10/2022 Fibromyalgia 09/20/2009 Idiopathic chronic pancreatitis (CMS/HCC) 05/13/2018 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 region 06/03/2022 Resolved Ambulatory Problems Diagnosis Date Noted No Resolved Ambulatory Problems Past Medical History: Diagnosis Date Acid reflux Brachial neuritis or radiculitis 04/18/2014 Brachial plexus lesion 04/21/2008 Cataract Chronic pancreatitis (CMS/HCC) Disease of thyroid gland (CMS/HCC) Dry eyes Esophageal spasm Headache 04/21/2008 Hypercholesteremia (CMS/HCC) IBS (irritable bowel syndrome) Lupus Migraine ([facility]) Pain in limb 04/21/2008 Thoracic outlet syndrome [...] the morning and 1,000 mg in the eveningand 1,000 mg before bedtime. acetaminophen (Tylenol) 500 [...] tx with Miles solution. documented in this [facility]02-25-2025 Telephone encounter Note* Telephone Encounter - Divya Dudley MD - 08/09/2024 2:04 PM EST Thursday [facility] [id number] Miscellaneous Notes* Telephone Encounter - Divya Dudley MD - 08/09/2024 2:04 PM EST Thursday * Telephone Encounter - Jordana Dudley - 08/09/2024 1:40 PM EST Pt called in. Pt saw Dr Mcgregor last for a sore in her mouth. Dr Mcgregor told pt she should see Tomasz when the sore is in her mouth. She's been fighting sores in her mouth since March with Dr Mcgregor. She wants to know how soon she can get in. documented in this [facility]02-25-2025 Telephone encounter Note* Telephone Encounter - Jordana Dudley - 08/09/2024 1:40 PM EST Pt called in. Pt saw Dr Mcgregor last for a sore in her mouth. Dr Mcgregor told pt she should see Timmijoey when the sore is in her mouth. She's been fighting sores in her mouth since March with Dr Mcgregor. She wants to know how soon she can get in. [facility] [id number] History of Present illness Narrative* Miguel Ángel Rosales DO - 07/20/2024 2:15 PM EST Images from the original note were not [...] reflexes are 2+ and symmetric throughout. Coordination: Fressi-ji-fthe testing and rapid alternating movements are normal Gait: Normal Review and summary of old records: - neuropsych testing at [facility] demonstrates well-preserved cognition and memory. In fact, she demonstrated a strength in visual spatial skills including visual learning and memory, visualconstruction and visual spatial planning and organization and scanning with complex divided attention all which measured well above average to superior ranges. She demonstrates excellent cognitive reserve. No evidence of neurodegenerative disease. Findings are completely normal for age. Most likelyconcern for combination of superior depression, moderate anxiety [...] change consistent with small-vessel ischemic disease is alsoidentified. -Thyroid stimulating hormone at [facility] on 04/20/2023: Normal Assessment/Plan Diagnoses and all orders for this visit: Memory impairment Family history of Alzheimer's disease Anxiety The patient does have memory impairment. She states this is worsening over the course of the last couple of years. She states she is afraid to drive so she stopped driving. She did have an MRI and CTangiogram of the head and neck which are unremarkable. She does have thyroid disease which is beingtreated. Neuropsych assessment and [facility] shows well-preserved [...] of mental health issues documented in this encounterOzarks Medical [id number] History of Present illness Narrative* Divya Dudley MD - 06/20/2024 10:30 AM EST Subjective Patient ID: Skip Hong is a [...] syndrome on both sides 10/08/2023 Advancing dementia (CMS/HCC) 10/08/2023 Abdominal pain 09/20/2009 Cervical spondylosis without myelopathy 07/10/2022 Fibromyalgia 09/20/2009 Idiopathic chronic pancreatitis ([facility]/HCC) 05/13/2018 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 region 06/03/2022 Resolved Ambulatory Problems Diagnosis Date Noted No Resolved Ambulatory Problems Past Medical History: Diagnosis Date Acid reflux Brachial neuritis or radiculitis 04/18/2014 Brachial plexus lesion 04/21/2008 Cataract Chronic pancreatitis ([facility]) Disease of thyroid gland ([facility]) Dry eyes Esophageal spasm Headache 04/21/2008 Hypercholesteremia ([facility]) IBS (irritable bowel syndrome) Lupus Migraine ([facility]) Pain in limb 04/21/2008 Thoracic outlet syndrome [...] instill 1 DROP IN THE LEFT EYE FIVETIMES DAILY FOR 10 DAYS 5 mL 1 [...] evaluation by Dr Mullins. documented in this encounterOzarks Medical [id number] History of Present illness Narrative* Cindy Phan DO - 07/27/2023 2:15 PM EST Images from the original note were not [...] different lens options were explained including the dkl-xr-whxhsg fees for any upgrades. Intraocular lens (IOL) [...] permeable (RGP) lenses occurred. documented in this encounterOzarks Medical [id number] NoteHNO ID: [id number] Author: Benjamin Moore PA-C Service: ? Author Type: Physician Brand Ambassador Promotional Model Type: Progress Notes Filed: 06/23/2022 7:54 AM Note Text: AMBULATORY TELEPHONE VISIT Skip Tapiae has consented to this telephone encounter. Patient was unable to connect to [employer] Virtual Visit - call to patient to [...] follow-up necessary. Total Time Spent: 45 minutes [facility]01-09-2023 History of Present illness Narrative* Benjamin Moore PA-C - 06/23/2022 7:27 AM EST AMBULATORY TELEPHONE VISIT Skip Hong has consented to this telephone encounter. Patient was unable to connect to [employer] Virtual Visit - call to patient to [...] minutes Benjamin Moore PA-C [facility]22 NoteHNO ID: [id number] Author: Sangeetha Vasquez APRN.BODY AND FENDER WORKER Service: ? Author Type: Nurse Practitioner Type: [...] in person or virtual visit whatever patient preference.[facility] 06-04-2022 History of Present illness Narrative* Sangeetha Vasquez APRN.BODY AND FENDER WORKER - 06/04/2022 11:10 AM EST Per Triage: Skip Hong is a 67 [...] person or virtual visit whatever patient preference. * Celeste Khalil, Research Coordinator - 06/03/2022 1:17 PM EST Patient name: Skip Hong Are you being referred by a [place] for Spine Health Provider or Pain Management Provider at [facility]? No If answer is YES [...] facility where the MRI/CT/myelogram was completed: [facility] [address] [place] [address] MRI/CT/myelogram viewable in Epic: No If not, please provide [phone] to fax in imaging reports for review. Also, please inform patient to hand carry imaging disc to appointment. XR (spine) within 12 months: Yes If YES, please ask for the name/address of the facility where the XR was completed: [facility] [address] [place] [address] Dr. Humphreys's patients: Have you had previous EMG/Nerve Conduction Study, Ultrasound, or MRI for thesesame symptoms? If YES, please ask for the [...] injections and/or physical therapy was completed Injections: [facility] [address] [place] [address] PT: unable to recall facility Have you [...] where the surgery was completed: Additional Comments [phone] documented in this [facility]Select [facility]22 NoteHNO ID: [id number] Author: Celeste Khalil Research Coordinator Service: ? Author Type: Research Type: Progress Notes Filed: 06/04/2022 11:31 AM Note Text: Patient name: Skip Hong Are you being referred by a [facility] for Sp[facility] Health Provider or Pain Management Provider at [facility]? No If answer is YES [...] facility where the MRI/CT/myelogram was [place]: [place] [address] MRI/CT/myelogram viewable in Epic: No If not, please provide [phone] to fax in imaging reports for review. Also, please inform patient to hand carry imaging disc to appointment. XR (spine) within 12 months: Yes If YES,? please ask for the name/address of the facility where the XR was completed: [place] [address] Dr. Humphreys's patients: Have you had previous [...] injections and/or physical therapy was completed Injections: [facility] [address] [place] [address] PT: unable to recall facility Have you [...] where the surgery was completed: Additional Comments [phone] Evaluation note* Encounter Date Diagnosis Assessment Notes Treatment Notes Treatment Clinical Notes May, Neck pain (ICD-10 - M54.2) [...] and agrees. A referral will be sent [facility] Other evaluation note* Diagnosis Fibromyalgia- Primary Mylagia and myositis, unspecified Cervicalgia documented in this encounter [facility] noteNo InformationNort Remark Other Evaluation note* Diagnosis Age-related nuclear cataract of both eyes- Primary documented in this encounter [facility]* Diagnosis Age-related nuclear cataract of both eyes documented in this encounter [facility]* Diagnosis Age-related nuclear cataract of both eyes documented in this encounter [facility]* Diagnosis Left facial pain- Primary Headache documented in this encounter [facility]* Diagnosis Memory impairment- Primary Memory loss Anxiety Anxiety state, unspecified documented in this encounter [facility]* Diagnosis Oral ulcer- Primary Other and unspecified diseases of the oral soft tissues documented in this encounter [facility] Healthcare[facility]* Diagnosis Onset Date Resolution Status Admit Date Memory difficulty chronic January 23, 2025 9:13am [facility] Work Phone: History general Narrative - Reported* [...] History arthroscopy shoulder Hospitalization History see above [facility] Other Hospital Discharge instructions Additional Instructions Please follow Orthopedic orders s/p surgery left ankle fracture-- *Nonweightbearing for 6 weeks on left ankle *May remove boot daily to gently clean around wound then reapply. [facility] Work Phone: Revuzy for referral (narrative)No reason for referral information availableSelect [facility] Work Phone: Repshi for visit NarrativeReferral update - pain mangementNortLancaster General Hospital [employer] Other Summary Purpose Family History Relationship Condition Age at Onset Recorded Date/T amauri father Unknown mother Unknown Advance Directives Advance Directive Response Recorded Date/ Time Advance Directives No February 10, 2018 2:23pm Reason for Referral Reason DECLINED Evaluate and Treat Neck Pain Diagnosis 1 Neck pain (M54.2) Referral Organization [facility] urosurgery Referring Provider First Name Prasad Referring Provider Last Name Maame Referring Provider Specialty Neurologica l Surgery Referred Organization [facility] Pain Managemen t Referred Provider Bentley Bragg Referred Address [address] [place] [id number] Referred Provider Specialty Pain Medicin e Referral Priority Routine General Notes Darrell Jenifer 022 08:31:51 AM >Received today and sent P2P Esthela Navarro 06/03/2022 02:35:54 PM >fyi patient declined seeing Dr Bragg, she stated [facility] 06[facility]03/2022 02:59:27 PM >OK, thank you for the update. Telephone encounter was sent Chief Complaint and Reason for Visit Chief Complaint Admit Date 6 month follow up January 23, 2025 9: 13am Reason for Visit Admit Date Memory difficulty January 23, 2025 9: 13am Chief Complaint Admit Date 6 month follow up January 23, 2025 9: 13am L ankle fx February 04, 2025 7: 29pm Reason for Visit Admit Date Family history of Alzheimer's disease Au francoise 2024 9:13am Memory difficulty January 23, 2025 9: 13am Closed left trimalleolar fracture February 04, 2025 7:29pm Fibromyalgia February 04, 2025 7: 29pm History of thoracic outlet syndrome Augu 2024 7:29pm Chief Complaint Admit Date 6 month follow up January 23, 2025 9: 13am L ankle fx February 04, 2025 7: 29pm Z98.890 - Other specified postprocedural states February 21, 2025 7:37am 2 WEEKS February 21, 2025 8:55am Reason for Visit Admit Date Family history of Alzheimer's disease Au [facility] 2024 9:13am Memory difficulty January 23, 2025 9: 13am Closed left trimalleolar fracture February 04, 2025 7:29pm Fibromyalgia February 04, 2025 7: 29pm History of thoracic outlet syndrome Augu 2024 7:29pm Closed left trimalleolar fracture Septem macho 2024 8:55am Encounter for removal of sutures Septemb er 2024 8:55am History of open reduction an d internal fixation (ORIF) procedure February 21, 2025 8:55am Other specified postprocedural states Se ptember 2024 8:55am Reason for Visit Admit Date Family history of Alzheimer's disease [facility] 2024 9:13am Memory difficulty January 23, 2025 9: 13am Closed left trimalleolar fracture February 04, 2025 7:29pm Fibromyalgia February 04, 2025 7: 29pm History of thoracic outlet syndrome Janu 2024 7:29pm Arthritis of left foot February 21 8:55am Closed left trimalleolar fracture Septem macho 2024 8:55am Encounter for removal of sutures Septemb er 2024 8:55am History of open reduction an d internal fixation (ORIF) procedure February 21, 2025 8:55am Other specified postprocedural states Se ptember 2024 8:55am Chief Complaint Admit Date 6 month follow up January 23, 2025 9: 13am L ankle fx February 04, 2025 7: 29pm Z98.890 - Other specified postprocedural states February 21, 2025 7:37am 2 WEEKS February 21, 2025 8:55am [id number] February 23, 2025 4:56pm Additional Source Comments Source Comments (unrecognize d section and content) In the event this informatio n is protected by the Federal Confidentiality of Alcohol and Drug Abuse Patient Records regulations: The Federal rules restrict any use of the information to criminally investigate or prosecute any alcohol or drug abuse patient.[facility] the event this information is protected by the Federal Confidentiality of Alcohol and Drug Abuse Patient Records regulations: The Federal rules restrict any use of the information to criminally investigate or prosecute any alcohol or drug abuse patient.[facility] Care Teams (unrecognized sec tion and content) Debate Director Relationship Specialty Start Date End Date Anitha Mcgregor MD [address] [place] [address] PCP - General 09/07/09 Luli Roy (Hist), [place] [address] Referring Gastroenterology 05/04/18 Debate Director Relationship Specialty Start Date End Date Anitha Mcgregor MD [address] [place] [address] PCP - General 09/07/09 Luli Roy (Hist), MD [address] [place], [place] [id number] Referring Gastroenterology 05/04/18 Debate Director Relationship Specialty Start Date End Date Anitha Mcgregor MD [address] [facility] [address] PCP - General Family Medicine 07/27/23 Debate Director Relationship Specialty Start Date End Date Anitha Mcgregor MD [address] [facility] [place] [address] PCP - General Family Medicine 07/27/23 Oral Fernandez OD [address] [facility] [place] [address] Referring Physician Optometry 01/11/24 Debate Director Relationship Specialty Start Date End Date Anitha Mcgregor MD [address] [facility] [place] [address] PCP - General Family Medicine 07/27/23 Oral Fernandez OD [address] [facility] [place] [address] Referring Physician Optometry 01/11/24 Debate Director Relationship Specialty Start Date End Date Anitha Mcgregor MD [address] [facility] [place] [address] PCP - General Family Medicine 07/27/23 Oral Fernandez OD [address] [facility] [place] [address] Referring Physician Optometry 01/11/24 Debate Director Relationship Specialty Start Date End Date Anitha Mcgregor MD [address] [facility] [place] [address] PCP - General Family Medicine 07/27/23 Oral Fernandez OD [address] [facility] [place] [address] Referring Physician Optometry 01/11/24 Debate Director Relationship Specialty Start Date End Date Anitha Mcgregor MD [address] [facility] [place] [address] PCP - General Family Medicine 07/27/23 Oral Fernandez OD [address] [facility] [place] [address] Referring Physician Optometry 01/11/24 Debate Director Relationship Specialty Start Date End Date Anitha Mcgregor MD [address] [facility] [place] [id number] PCP - General Family Medicine 07/27/23 Oral Fernandez OD [address] [facility] [place] [address] Referring Physician Optometry 01/11/24 Debate Director Relationship Specialty Start Date End Date Anitha Mcgregor MD [address] [facility] [place] [address] PCP - General Family Medicine 07/27/23 Oral Fernandez OD [address] [facility] [place] [address] Referring Physician Optometry 01/11/24 Debate Director Relationship Specialty Start Date End Date Anitha Mcgregor MD [address] [facility] [place] [address] PCP - General Family Medicine 07/27/23 Oral Fernandez OD [address] [place] [id number] Referring Physician Optometry 01/11/24 Team Status: Active Member Role Status Valdo Mcgregor MD Primary Care Provider Active Team Status: Inactive Member Role Status Valdo Mcgregor MD Primary Care Provider Active Start: January 23, 2025 End: January 23, 2025 Екатерина Chacon , EMT I/99-[employer]-C Attending Provider Active Start: January 23, 2025 End: January 23, 2025 Team Status: Active Member Role Status Valdo Mcgregor MD Primary Care Provider Active Start: February 04, 2025 Dax Matt DO Admit Provider Active Start: February 04, 2025 Dax Matt DO Other Provider Active Start: February 04, 2025 Ravin Campoverde MD Attending Provider Active [place]: February 04, 2025 Ravin Campoverde MD Other Provider Active Start: [facility]2024 Maricruz Tobias MD Other Provider Active [place]: February 04, 2025 Clint Sotelo DO Other Provider Active Start : February 04, 2025 Ryan Henderson II, MD Other Provider Active S tart: February 04, 2025 Steven Ramsay DO Other Provider Active Start: February 04, 2025 Team Status: Active Member Role Status Valdo Campoverde MD Attending Provider Active [place]: February 21, 2025 Anitha Mcgregor MD Primary Care Provider Active Start: February 21, 2025 Team Status: Inactive Member Role Status Valdo Mcgregor MD Primary Care Provider Active Start: February 21, 2025 End: February 21, 2025 Ravin Campoverde MD Attending Provider Active [place]: February 21, 2025 End: February 21, 2025 Team Status: Inactive Member Role Status Valdo Campoverde MD Attending Provider Active [place]: February 21, 2025 End: February 21, 2025 Anitha Mcgregor MD Primary Care Provider Active Start: February 21, 2025 End: February 21, 2025 Team Status: Inactive Member Role Status Valdo Mcgregor MD Primary Care Provider Active Start: February 23, 2025 End: February 23, 2025 Ravin Campoverde MD Attending Provider Active [place]: February 23, 2025 End: February 23, 2025 Reason for Visit (unrecogniz ed section and content) Reason Comments Neck Pain Reason Comments Cataract Reason Comments Med Refill Reason Comments Facial Pain Reason Onset Date Comments Mouth Lesions 08/09/2024 Reason Comments Mouth Lesions INFORMATION SOURCE (unrecogn ized section and content) DATE CREATED AUTHOR 06/23/2022 [facility] DATE CREATED AUTHOR AUTHOR'S ORGANIZ ATION 07/02/2022 [facility] DATE CREATED AUTHOR AUTHOR'S ORGANIZ ATION 01/19/2024 [facility] DATE CREATED AUTHOR AUTHOR'S ORGANIZ ATION 01/20/2024 [facility] DATE CREATED AUTHOR AUTHOR'S ORGANIZ ATION 01/27/2024 [facility] DATE CREATED AUTHOR AUTHOR'S ORGANIZ ATION 08/16/2024 [facility] DATE CREATED AUTHOR AUTHOR'S ORGANIZ ATION 02/22/2025 [facility] Goals (unrecognized section and content) Goals may [...] BE BASED ON THE PRIMARY CLINICAL RECORDS. [facility] [employer] provides no warranty or guarantee of the accuracy or completeness of information in this document.
[2025-02-24 19:08] VITALS: BP 117/78; PULSE 80; TEMP 36.6; O2SAT 98; BMI 23.9
--- NOTE | 2025-02-24 19:34 | XR_ITS ---
[facility] [place] [address] Patient Name: CRISTOBAL CALERO MRN: [id number] date: 1955 Sex: F Assigned Patient Location: ER Current Patient Location: ER Accession/Order Number: [id number] Exam Date: 02/24/2025 19:50 Report Date: 02/24/2025 20:29 At the request of: CHRISTIANO VALLES MD Procedure: XR hip LT 2V w/ pelvis Single view pelvis and 2 views left hip INDICATION: Fall COMPARISON: None FINDINGS: No fracture-dislocation identified. Question subchondral band sclerosis both femoral heads. Mild spurring sacroiliac joints. Mild degenerative changes both hips. Soft tissues unremarkable. XR/XR hip LT 2V w/ pelvis Impression: Mild degenerative change. No fractures or dislocation identified. Subchondral band of sclerosis both femoral heads noted, question this could suggest AVN. Impression dictated by: Javy Hays M.D. 02/24/2025 8:29 PM Dictation Location: [place] [address] Electronically authenticated by: [id number] Y Date: 02/24/2025 20:29
--- NOTE | 2025-02-24 19:35 | XR_ITS ---
[facility] [place] [id number] Patient Name: CRISTOBAL CALERO MRN: [id number] date: 1955 Sex: F Assigned Patient Location: ER Current Patient Location: ER Accession/Order Number: [id number] Exam Date: 02/24/2025 19:50 Report Date: 02/24/2025 20:30 At the request of: CHRISTIANO VALLES MD Procedure: XR ankle LT min 3V LEFT ANKLE - 3 views CLINICAL HISTORY: fall COMPARISON: 02/04/2025 FINDINGS: Postsurgical changes of ORIF of the bimalleolar fracture. Persistent fracture lines noted. These appear near anatomic alignment. No definite intact. No new fracture dislocation. XR/XR ankle LT min 3V IMPRESSION: ORIF findings without acute osseous abnormality. Impression dictated by: Javy Hays M.D. 02/24/2025 8:30 PM Dictation Location: [place] [address] Electronically authenticated by: [id number] Y Date: 02/24/2025 20:30
[2025-02-24 22:22] VITALS: BP 139/84; PULSE 80; O2SAT 100
--- NOTE | 2025-02-24 22:27 | ED.LOWEXI1 ---
HPI HPI - Extremity Injury (Lower) General Chief Complaint: Extremity Injury, Lower Stated Complaint: FALL Time Seen by Provider: 02/24/25 22:23 Source: patient Mode of arrival: walk-in History of Present Illness HPI Narrative: recent fracture left ankle s/p ORIF. In Cam boot. States she is suppose to be non weight bearing. States she was pivoting to get into her bed when she missed the bed and fell onto her left him and struck her cam boot. States she has pain at both sites and was advised to come to the ER to make sure her surgical repair was still intact. She denies other injury. is now complaining of pain because she was not able to take her [place] before coming in did not hit her head Related Data Home Medications ?Medication ?Instructions ?Recorded ?Confirmed gabapentin 100 mg capsule 100 mg PO Q12H 02/25/23 11/05/23 sumatriptan succinate 100 mg 100 mg PO .at onset PRN migraines 02/25/23 11/05/23 tablet (Imitrex) clopidogrel 75 mg tablet 75 mg PO DAILY 11/05/23 11/05/23 liothyronine 5 mcg tablet 5 mcg PO DAILY 11/05/23 11/05/23 omeprazole 20 mg capsule,delayed 20 mg PO DAILY 11/05/23 11/05/23 release Previous Rx's ?Medication ?Instructions ?Recorded hydroxyzine HCl 25 mg tablet 25 mg PO Q8H PRN itching #20 tabs 11/03/23 Allergies Allergy/AdvReac Type Severity Reaction Status Date / Time aspirin Allergy Severe Anaphylaxis Verified 02/24/25 19:07 butorphanol (From Stadol) Allergy Severe Rash Verified 02/24/25 19:07 ciprofloxacin (From Cipro) Allergy Severe Rash Verified 02/24/25 19:07 homatropine (From Hydromet) Allergy Severe Rash Verified 02/24/25 19:07 metoclopramide (From Reglan) Allergy Severe spasms Verified 02/24/25 19:07 sulfamethoxazole (From Allergy Severe severe Verified 02/24/25 19:07 Bactrim) illness theophylline Allergy Severe Dizziness Verified 02/24/25 19:07 tramadol Allergy Severe Rash Verified 02/24/25 19:07 trimethoprim (From Bactrim) Allergy Severe severe Verified 02/24/25 19:07 illness memantine Allergy Mild Hives Verified 02/24/25 19:07 niacin Allergy Mild severe pain Verified 02/24/25 19:07 hydromorphone (From Dilaudid) AdvReac Severe rash Verified 02/24/25 19:07 morphine AdvReac Severe stomach Verified 02/24/25 19:07 pain promethazine (From Phenergan) AdvReac Severe spasms Verified 02/24/25 19:07 imetrex Allergy Mild drops Uncoded 02/24/25 19:07 blood pressure Opioid HPI Opioid Management Most Recent Pain and Opioid Data: Last Pain Scale 9 02/04/25, 14:42 Last ORT Total Score 2 11/05/23, 18:11 Last ORT Risk Category Low Risk 11/05/23, 18:11 Review of Systems ROS Status of ROS 10 or more systems reviewed and unremarkable except as noted in history and below [facility] Medical History (Updated 02/24/25 @ 22:36 by Candelario Mendiola MD) Dehydration ?E86.0 - Dehydration (ICD-10) 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 - Other cerebrovascular disease (ICD-10) 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) History of colitis ?Z87.19 - Personal history of other diseases of the digestive system (ICD-10) Hx of temporomandibular joint syndrome ?Z87.39 - Personal history of other diseases of the musculoskeletal system and connective tissue (ICD-10) History of lupus Hx of chronic arthritis ?Z87.39 - Personal history of other diseases of the musculoskeletal system and connective tissue (ICD-10) History of fibromyalgia ?Z87.39 - Personal history of other diseases of the musculoskeletal system and connective tissue (ICD-10) History of diverticulitis ?Z87.19 - Personal history of other diseases of the digestive system (ICD-10) Hx of irritable bowel syndrome ?Z87.19 - Personal history of other diseases of the digestive system (ICD-10) Hx of migraines ?Z86.69 - Personal history of other diseases of the nervous system and sense organs (ICD-10) Hx of esophageal reflux ?Z87.19 - Personal history of other diseases of the digestive system (ICD-10) Surgical History (Updated 12/31/22 @ 10:47 by Booker Bone) Hx of cholecystectomy ?Z90.49 - Acquired absence of other specified parts of digestive tract (ICD-10) Hx of hysterectomy ?Z90.710 - Acquired absence of both cervix and uterus (ICD-10) Hx of section ?Z98.891 - History of uterine scar from previous surgery (ICD-10) Hx of tonsillectomy ?Z90.89 - Acquired absence of other organs (ICD-10) Family History (Updated 11/05/23 @ 17:48 by Mary Ann Ramos) Father Family history of CHF (congestive heart failure) Family history of COPD (chronic obstructive pulmonary disease) Family history of hypertension Family history of myocardial infarction Family history of stroke Mother Family history of CHF (congestive heart failure) Family history of COPD (chronic obstructive pulmonary disease) Family history of hypertension Sister Family history of COPD (chronic obstructive pulmonary disease) Family history of hypertension Brother Family history of COPD (chronic obstructive pulmonary disease) Family history of hypertension Social History Smoking status: Never smoker Highest level of school completed/degree received: some college, no degree Little interest or pleasure in doing things: not at all Feeling down, depressed, or hopeless: not at all Exam Constitutional Vital Signs, click to edit/add: Last Vital Signs Temp 97.9 F 02/24/25 19:08 Pulse 80 02/24/25 22:22 Resp 20 02/24/25 22:22 BP 139/84 02/24/25 22:22 Pulse Ox 100 02/24/25 22:22 O2 Del Method Room Air 02/24/25 22:22 Common normals: average body habitus, oriented x3, no limitations, healthy appearing, alert and well nourished [facility] Common normals: normocephalic and head/scalp atraumatic Eye Common normals: EOMs intact bilaterally Respiratory Common normals: normal respiratory effort, no retractions, no use of accessory muscles and clear to auscultation bilaterally Cardio Common normals: regular rate, regular rhythm, S1 normal heart sound and S2 normal heart sound GI Common normals: Normal to inspection, nondistended, normoactive bowel sounds present and soft to palpation Extremity Other: left foot in cam boot mild left hip tenderness left foot /ankle with post op swelling and erythema. No drainage. not warm Neuro Common normals: oriented x3, CN's II-XII intact bilaterally, moves all extremities and no focal motor deficits Psych Appearance: grossly normal Course Vital Signs Vital signs: Vital Signs Temperature 97.9 F 02/24/25 19:08 Pulse Rate 80 02/24/25 19:08 Respiratory Rate 20 02/24/25 19:08 Blood Pressure 117/78 02/24/25 19:08 Pulse Oximetry 98 02/24/25 19:08 Oxygen Delivery Method Room Air 02/24/25 19:08 Temperature 97.9 F 02/24/25 19:08 Pulse Rate 80 02/24/25 22:22 Respiratory Rate 20 02/24/25 22:22 Blood Pressure 139/84 02/24/25 22:22 Pulse Oximetry 100 02/24/25 22:22 Oxygen Delivery Method Room Air 02/24/25 22:22 MDM - Extremity Injury (Lower) MDM Narrative Medical decision making narrative: recent ORIF left ankle. Fell tonight striking left hip and cam boot left foot. Pain at both. Inspection of ankle without deformity. Expected post op mild swelling and faint erythema. No suspected infection. xrays left ankle and hip without acute findings. Patient medicated with [place] and discharged home Discharge Plan Discharge Chief Complaint: Extremity Injury, Lower Clinical Impression: Contusion of hip, left, Contusion of ankle or foot, left Patient Disposition: Home, Self-Care Prescriptions / Home Meds: No Action clopidogrel 75 mg tablet 75 mg PO DAILY liothyronine 5 mcg tablet 5 mcg PO DAILY omeprazole 20 mg capsule,delayed release(DR/EC) 20 mg PO DAILY gabapentin 100 mg capsule 100 mg PO Q12H sumatriptan succinate [Imitrex] 100 mg tablet 100 mg PO .at onset PRN (Reason: migraines) Rx Instructions: do not exceed 2 doses per 24 hrs hydroxyzine HCl 25 mg tablet 25 mg PO Q8H PRN (Reason: itching) Qty: 20 0RF Print Language: Setswana Instructions: Contusion in Adults (ED), Hip Contusion (ED) Referrals: Min Mcgregor MD [Primary Care Provider, Family Practice] - 1 week
[2025-02-24] MEDS: HYDROCODONE/ACET 5-325 MG TABLET 2 TAB PO (22:41)
== END 2025-02-24 22:47 | disposition home or self-care (01) ==
PROVIDERS: Emergency Provider Internal Medicine; PCP Family Medicine
DX: S70.02XA Contusion of left hip, initial encounter (principal); S90.32XA Contusion of left foot, initial encounter; S90.02XA Contusion of left ankle, initial encounter; W18.39XA Other fall on same level, initial encounter; Z98.890 Other specified postprocedural states
CPT/HCPCS: 73502; 73610; 99284

== ENCOUNTER 2025-03-06 12:39 | Outpatient (OUT) | payer MEDICARE, SELFPAY ==
--- OUTSIDE RECORDS SUMMARY | 2020-09-21 06:00 | XMS_ITS | Continuity of Care Document ---
Author Organization [facility] Address [address] [place] [address] Phone Care Team Providers Care Tactical Intelligence Officer Name Role Phone Ronni Quezada Unavailable Unavailable [...] Diagnoses Date Provider Providers Copied on Encounter [facility], [address] [place], [place], [id number], [place] tel:[phone] COVID ECHD Covid-19 (chief complaint) No Information Diamondi DO Rudolph. [address] [place], [place], [id number], [place]. tel:[phone] [facility], [address] [place], [place], [id number], [place] tel:[phone] COVID ECHD No Information Visci Ronni. [address] [place], [place], [id number], [place]. tel:[phone] Family History Family Member Type Diagnosis Age At Onset No Information Immunizations Vaccine Date Status Comments Moderna COVID administered Source: New Im munization Record Moderna COVID administered Source: New Im munization Record Payers Payer name Insurance type Covered constitution party ID Authoriza tion(s) Medicare PPS MB [id number] Medicare PPS MB [id number] Medicare PPS MB [id number] Social History Type Description Quantity Date Captured [...]
--- OUTSIDE RECORDS SUMMARY | 2025-02-23 20:57 | XMS_ITS | Continuity of Care Document ---
Author Organization [facility] Address [address] [place] [address] Phone Care Team Providers Care Dust Puller Name Role Phone Min Mcgregor MD Primary Care Provider [phone] Екатерина Chacon Attending Provider + Dax Matt DO Admit Provider Dax Matt DO Other Provider Ravin Campoverde MD Attending Provider Ravin Campoverde MD Other Provider Maricruz Tobias MD Other Provider Clint Sotelo DO Other Provider Ryan Henderson II, MD Other Provider Steven Ramsay DO Other Provider [phone] Care Teams Patient Care Team Team Status: Active Member Role Status Dates Min Mcgregor MD Primary Care Provider Active Visit Care Team Team Status: Inactive Member Role Status Dates Min Mcgregor MD Primary Care Provider Active Start: January 23, 2025 End: January 23, 2025 FELIPA [place] Attending Provider Active Start: January 23, 2025 End: January 23, 2025 Visit Care Team Team Status: Active Member Role Status Dates Min Mcgregor MD Primary Care Provider Active Start: February 04, 2025 Dax Matt DO Admit Provider Active Start: February 04, 2025 Dax Matt , Other Provider Active Start: February 04, 2025 Ravin Campoverde MD Attending Provider Active Star t: February 04, 2025 Ravin Campoverde MD Other Provider Active Start: A ugust 2024 Maricruz Tobias MD Other Provider Active Star t: February 04, 2025 Clint Sotelo , Other Provider Active Start : February 04, 2025 Ryan Henderson II, MD Other Provider Active S tart: February 04, 2025 Steven Ramsay DO Other Provider Active Start: February 04, 2025 Visit Care Team Team Status: Inactive Member Role Status Dates Ravin Campoverde MD Attending Provider Active Star t: February 21, 2025 End: February 21, 2025 Min Mcgregor MD Primary Care Provider Active Start: February 21, 2025 End: February 21, 2025 Visit Care Team Team Status: Inactive Member Role Status Dates Min Mcgregor MD Primary Care Provider Active Start: February 21, 2025 End: February 21, 2025 Ravin Campoverde MD Attending Provider Active Star t: February 21, 2025 End: February 21, 2025 Patient Care Team Team Status: Inactive Member Role Status Dates Min Mcgregor MD Primary Care Provider Active Start: February 23, 2025 End: February 23, 2025 Ravin Campoverde MD Attending Provider Active Star t: February 23, 2025 End: February 23, 2025 Chief Complaint and Reason for Visit Chief Complaint Admit Date 6 month follow up January 23, 2025 9: 13am L ankle fx February 04, 2025 7: 29pm Z98.890 - Other specified postprocedural states February 21, 2025 7:37am 2 WEEKS February 21, 2025 8:55am m79.662 February 23, 2025 4:56pm Reason for Visit Admit Date Family history of Alzheimer's disease Au francoise 2024 9:13am Memory difficulty January 23, 2025 9: 13am Closed left trimalleolar fracture February 04, 2025 7:29pm Fibromyalgia February 04, 2025 7: 29pm History of thoracic outlet syndrome Augu st 2024 7:29pm Arthritis of left foot February 21 8:55am Closed left trimalleolar fracture Septem macho 2024 8:55am Encounter for removal of sutures [facility] [place] 8:55am History of open reduction an d internal fixation (ORIF) procedure February 21, 2025 8:55am Other specified postprocedural states Se ptember 2024 8:55am Reason for Referral Referring Provider Name Referring Provider Address Referring Provider Phone Referral Date Requested Appointment Date Referral Reason Dax Matt [address] [place] [address] Work Phone: Post surgery appointment. He will remove your sutures at this appointment. Post surge ry appointment. He will remove your sutures at this appointment. Allergies, Adverse Reactions, Alerts Allergen Type Severity Reaction Last Updated Verified Status aspirin Allergy Unknown Anaphylaxis February 9:18am Yes Active butorphanol Allergy Unknown Unknown Reaction [facility] 2024 9:18am Yes Active ciprofloxacin Allergy Unknown Rash February 212024 9:18am Yes Active hydromorphone Allergy Unknown Unknown Reaction [facility] 2024 9:18am Yes Active morphine Allergy Unknown Abdominal Pain February 21, 2025 9:18am Yes Active promethazine Allergy Unknown [facility] 9:18[facility] Yes Active tramadol Allergy Unknown Unknown Reaction [facility] 2024 9:18am Yes Active citalopram Allergy Unknown Unknown Reaction [facility] 2024 9:18am Yes Active hydroxyzine Allergy Unknown Unknown Reaction [facility] 2024 9:18am Yes Active memantine Allergy Unknown Hives February 21, 2025 9:18am Yes Active metoclopramide Allergy Unknown [facility] 9:[facility] Yes Active niacin Allergy Unknown pain February 21, 2025 9:18am Yes Active sulfamethoxazole Allergy Unknown Rash [facility] 2024 9:18am Yes Active sumatriptan Allergy Unknown Hypotension February 9:18am Yes Active trimethoprim Allergy Unknown Rash February 9:18am Yes Active Social History Smoking Status Status Start Date End Date Date of Observa tion Never smoked tobacco (finding) February 04, 2025 8:55pm Observation Status Observation Response Date of Response Legal Sex Female (finding) Sex Assigned At Female 1955 Social History Assessments Assessment Value Date Recorded SDOH Follow up February 07 2:14pm Question Answer Date Recorded Has the SDOH screening changed since admission? N February 07, 2025 2:14pm Family History Relationship Condition Age at Onset Recorded Date/T amauri father Unknown mother Unknown Problems Active Problems Medical Problem Onset Date Status Comments Other specified postprocedur al states Unknown Active Pain of left calf Unknown Active Acute pain of left foot Unknown Active Fibromyalgia Unknown Active Migraines Unknown Active History of open reduction an d internal fixation (ORIF) procedure Unknown Active open reduction internal fixation left trimalleolar ankle fracture DOS 02/06/25. Encounter for removal of sutures Unknown Active Family history of Alzheimer' s disease Unknown Active Memory difficulty Unknown Active History of thoracic outlet syndrome Unknown Activ e IBS (irritable bowel syndrome) Unknown Active Closed left trimalleolar fracture Unknown Active Arthritis of left foot Unknown Active Medications Medication Status Dose Units Route Directions Qty Days St art Date Stop Date End Date Instructions Adherence Hydrocodone -Acetaminop hen 2.5-325 mg tablet Discont inued 1 TAB PO Twice daily as needed for pain 10 5 2024 [facility] 2024 5:05p m Hydrocodone -Acetaminop hen 5-325 mg tablet Discont inued 1 TAB PO Twice daily as needed for pain 10 5 2024 [facility] 2024 10:29 am Melatonin 5 mg capsule Active 15 MG PO as needed for insomnia February 05, 2025 12:00a m Unknown Cholecalcif harsha (Vitamin D3) 10 mcg (400 unit) Tablet Active 20 MCG PO Twice daily with meals 120 30 February 07, 2025 12:00a m Unknown Oxycodone 5 mg Tablet Discont inued 5 MG PO Every 4 hours as needed for Pain Scale 4 - 7 30 5 [facility] 9:18a m Clopidogrel (Plavix) 75 mg tablet Active 75 MG PO As Directed January 23, 2025 12:00a m twice a week Unknown Levothyroxi ne 25 mcg tablet Discont inued 25 MCG PO January 23, 2025 12:00a m Augus t , 2025 10:11 am Gabapentin 100 mg capsule Active 100 MG PO Daily at bedtime January 23, 2025 12:00a m Unknown Levothyroxi ne 25 mcg tablet Active 25 MCG PO Daily January 23, 2025 10:10a m Unknown Naratriptan 1 mg tablet Active 0 PO .COMPLEX as needed for migraines January 23, 2025 12:00a m Take 1 tablet by mouth as needed at the onset of migraine. Take no more than 1 dose in 24 hours. Unknown Hydrocodone -Acetaminop hen 5-325 mg tablet Active 1 TAB PO Twice daily as needed for pain 10 macho 2024 Unknown Medical Equipment Device Date Implanted Device Details Orthopaedic bone screw, non-bioabsorbable, non-sterile February 06, 2025 LANEY: ()[id number] Issuing Agency: [facility] Device Id: [id number] Orthopaedic bone screw, non-bioabsorbable, non-sterile February 06, 2025 LANEY: ()[id number] Issuing Agency: [facility] Device Id: [id number] Orthopaedic bone screw, non-bioabsorbable, non-sterile February 06, 2025 LANEY: ()[id number] Issuing Agency: [facility] Device Id: [id number] Orthopaedic bone screw, non-bioabsorbable, non-sterile February 06, 2025 LANEY: ()[id number] Issuing Agency: [facility] Device Id: [id number] Orthopaedic bone screw, non-bioabsorbable, non-sterile February 06, 2025 LANEY: ()[id number] Issuing Agency: [facility] Device Id: [id number] Orthopaedic bone screw, non-bioabsorbable, non-sterile February 06, 2025 LANEY: ()[id number] Issuing Agency: [facility] Device Id: [id number] Orthopaedic bone screw, non-bioabsorbable, non-sterile February 06, 2025 LANEY: ()[id number] Issuing Agency: [facility] Device Id: [id number] Orthopaedic bone screw, non-bioabsorbable, non-sterile February 06, 2025 LANEY: [id number] Issuing Agency: [facility] Device Id: [id number] Orthopaedic bone screw, non-bioabsorbable, non-sterile February 06, 2025 LANEY: [id number] Issuing Agency: [facility] Device Id: [id number] Orthopaedic bone screw, non-bioabsorbable, non-sterile February 06, 2025 LANEY: ()[id number] Issuing Agency: [facility] Device Id: [id number] Orthopaedic bone screw, non-bioabsorbable, non-sterile February 06, 2025 LANEY: ([id number] Issuing Agency: [facility] Device Id: [id number] Orthopaedic bone screw, non-bioabsorbable, non-sterile February 06, 2025 LANEY: ()[id number] Issuing Agency: [facility] Device Id: [id number] Orthopaedic bone screw, non-bioabsorbable, non-sterile February 06, 2025 LANEY: ([id number] Issuing Agency: [facility] Device Id: [id number] Orthopaedic bone screw, non-bioabsorbable, non-sterile February 06, 2025 LANEY: ([id number] Issuing Agency: [facility] Device Id: [id number] Orthopaedic fixation plate, non-bioabsorbable, sterile February 06, 2025 LANEY: ([id number] Issuing Agency: [facility] Device Id: [id number] Procedures Procedure Date Performed Status XR ankle LT min 3V* February 21, 2025 7:37am c ompleted XR foot LT min 3V* February 21, 2025 9:46am co mpleted US venous duplex LE BI February 23, 2025 4:59 pm active Relevant Diagnostic Tests and/or Laboratory Data Diagnostic Imaging Reports Author Alex Gleason [facility] Authored February 21, 2025 11:16am Report Dictated Date/Time Dictated By Status Radiology Report February 21, 2025 11:16am Alex Gleason Jr DO completed [facility] [address] [place] [address] XRay Report Signed Patient: Skip Hong MR#: [id number] : 1955 Acct:[id number] Age/Sex: 70 / F ADM Date: 5 Loc: [facility] Room: Type: [facility] Attending Dr: Ravin Campoverde MD Copies to: Ravin Campoverde MD~ Ordering Provider: Ravin Campoverde MD Date of Service: 02/21/25 XR/XR ankle LT min 3V*: Z98.890 - Other specified postprocedural states ([id number]) XR/XR foot LT min 3V*: M79.672 - Pain in left foot LEFT ANKLE - 3 views left foot 3 views CLINICAL HISTORY: Follow-up ORIF pain across the calcaneus and metatarsals and surgery. COMPARISON: Intraoperative study 02/06/2025 FINDINGS: Left ankle: Hardware fixation involving the distal fibula and tibia without evidence for hardware complication. No significant change in alignment. Periosteal reaction is present suggestive of healing response. Ankle mortise appears intact. Left foot: No focal soft tissue abnormality. No acute bony process is seen. Mild degenerative changes particularly involving the midfoot without bony erosions. XR/XR ankle LT min 3V* IMPRESSION: HEALING TIB-FIB FRACTURES. NO HARDWARE COMPLICATION. MILD DEGENERATIVE CHANGES INVOLVING THE LEFT FOOT WITHOUT ACUTE BONY PROCESS. Impression dictated by: Alex Gleason Jr., D.O. 02/21/2025 11:18 AM Dictation Location: [place] [address] Transcribed By: [facility] 02/21/25 1118 Dictated By: Alex Gleason Jr, DO 02/21/25 1116 Signed By: <Electronically signed by Alex Gleason Jr, DO in OV> 02/21/25 1118 Vital Signs Vital Reading Result Reference Range Collection Date/Time Height 63 [in_i] January 23 9:14am Weight 62.59 kg January 23 9:14am Heart Rate 65 /min 60-100 January 23 9:14am Respiratory rate 6 /min 12-24 January 9:14am Oxygen saturation by Pulse oximetry 98 % 95-100 January 23, 2025 9: 14am BP Systolic 102 mm[Hg] 100-140 January 23 9:14am BP Diastolic 64 mm[Hg] 60-100 January 23 9:14am BMI (Body Mass Index) 24.4 kg/m2 January 23, 2025 9:14am Height 63 [in_i] February 04 7:57pm Weight 63.90 kg February 07 5:55am Body Temperature 98.1 [degF] 97.6-99.0 January 3:30pm Heart Rate 65 /min 60-100 February 07 3:30pm Respiratory rate 18 /min -January 3:30pm Oxygen saturation by Pulse oximetry 100 % 95-100 February 07, 2025 3: 30pm BP Systolic 108 mm[Hg] 100-140 February 07 3:30pm BP Diastolic 59 mm[Hg] 60-100 February 07 3:30pm Inhaled oxygen flow rate 6 L/min Jan 2:26pm Advance Directives Advance Directive Response Recorded Date/ Time Advance Directives No February 10, 2018 2:23pm Insurance Providers Guarantor Jarod Bajwa Address [address] [place] [id number] Contact Info. Home Phone: Payer Policy Id Subscriber's Name Subscriber Id Effectiv e Date Expiration Date Medicare [id number] Jarod Bajwa [id number] [facility] PF [id number] Jarod Bajwa [id number] Encounters Encounter Location(s) Arrival/Admit Date Discharge/Depart Date Provider(s) Departed Physician/Prov ider Office Visit -[facility] [place] January 23, 2025 9:13am January 23, 2025 10:26am Екатерина Chacon APRN-DIRECTOR BUSINESS DEVELOPMENT-[place] Non-patient / Non-visit -[facility] February 04, 2025 7:29pm Ravin Campoverde MD Departed Clinical -[facility] February 21, 2025 7:37am February 21, 2025 7:38am Ravin Campoverde MD Departed Physician/Prov ider Office Visit -[facility] February 21, 2025 8:55am February 21, 2025 10:28am Ravin Campoverde MD Departed Clinical -[facility] February 23, 2025 4:56pm February 23, 2025 4:57pm Ravin Campoverde MD Recent Diagnosis Onset Date Admit Date Family history of Alzheimer's disease Unknown January 23, 2025 9:13am Memory difficulty Unknown January 23 9:13am Closed left trimalleolar fracture Unknown February 04, 2025 7:29pm Fibromyalgia Unknown February 04 7:29pm History of thoracic outlet syndrome Unknown February 04, 2025 7:29pm Arthritis of left foot Unknown February 21, 2025 8:55am Closed left trimalleolar fracture Unknown February 21, 2025 8:55am Encounter for removal of sutures Unknown February 21, 2025 8:55am History of open reduction an d internal fixation (ORIF) procedure Unknown February 21, 2025 8:55am Other specified postprocedural states Unknown February 21, 2025 8:55am Assessments Diagnosis Onset Date Resolution Status Admit Date Family history of Alzheimer' s disease chronic January 23 9:13am Memory difficulty chronic January 23, 2025 9:13am Closed left trimalleolar fracture acute February 04 7:29pm Fibromyalgia acute February 04, 2025 7:29pm History of thoracic outlet syndrome acute February 04 7:29pm Arthritis of left foot acute Se pt2024 8:55am Closed left trimalleolar fracture acute February 21 8:55am Encounter for removal of sutures acute February 21 8:55am History of open reduction an d internal fixation (ORIF) procedure acute February 21 8:55am Other specified postprocedur al states acute February 21 8:55am Plan of Treatment Author Екатерина Chacon [facility] Authored January 23, 2025 11 :40am The patient reports subjecti ve memory impairment (primarily recent recall and word-finding difficulty) with onset in 2021. She lives at home with her , and symptoms do not cause her any significant functional disability. CT of the brain on 02/25/2023 identified chronic small vessel ischemic disease, and MRI of the brain on 08/17/2023 identified no acute intracranial abnormality. Vitamin B12 level was within normal limits. She has a history of thyroid dysfunction, but this is being managed by her primary care provider. The patient scored quite well on her MOCA today (30/30), and neuropsychological evaluation on 11/16/2023 revealed well-preserved cognition and memory without evidence of a neurodegenerative condition or other organic etiology. Rather, Dr. García had suspicion for severe depression, moderate anxiety, chronic health complications, pain, and poor sleep quality contributing to the patient's cognitive symptoms and memory difficulty. I also have suspicion for possible untreated JUAN R, as the patient reports daytime fatigue and intermittent snoring and apneic episodes while asleep. The patient admits today she does have feelings of anxiety and depression and does not believe these are optimally managed. She reports mood swings but no safety concerns at this time. She denies suicidal ideations. Her sister on 12/15/2024, and she is following with a grief counselor once a month. PLAN: - I reviewed results and recommendations from neuropsychological evaluation in November 2023 with the patient - I strongly recommended referral to a mental health specialist to help improve management of the patient's anxiety and depression. We discussed that poorly managed psychiatric conditions can contribute to memory difficulty. The patient politely refused referral - I recommended polysomnography to evaluate for sleep-related breathing disorder such as JUAN R which could contribute to cognitive impairment and other adverse health effects of not identified and treated. The patient politely declined. She understands the possible risks associated with untreated JUAN R - The patient reports concern for possible frontotemporal dementia due to her intermittent mood swings. I told her we can further evaluate for this via MRI of the brain which would look for localized atrophy and updated neuropsychological evaluation. However, I am not convinced she has this currently. The patient declined to pursue further workup for now. She states an MRI would cost her $500, so she would like to hold off - Try to ensure sleep hygiene, healthy diet such as Mediterranean diet, regular physical activity as tolerated, and continued learning - Compensatory memory tools - Avoid memantine (patient had a previous allergy to this of hives) The patient reports a positive family history of Alzheimer's disease in her uncle (paternal) and great aunt (maternal). I do not believe the patient has dementia including Alzheimer's disease at this time. Diagnoses and treatment plan discussed. The patient verbalizes understanding and is agreeable to the plan. All questions answered. Author Arlyn Ignacio [facility] Authored February 21, 2025 10:32am Radiographs reviewed in [facility] with patient. She is progressing well from surgery. Sutures removed today under clean conditions, patient tolerated well. Instructed on elevation to aid in swelling reduction. Continue non weight bearing. May allow incisions to get wet in clean running water, do not soak until wounds fully healed. Advised patient may come out of the boot during sleep but wrap it well for protection and do not ambulate without the boot on. Patient was unwilling to bend ankle to 90 degrees to return to cam walker boot, stressed the importance of obtaining this range of motion to avoid stiffness issues in the future. Sent in hydrocodone refill with instructions on use. Future Tests Future scheduled test information is unavailable Pending Tests Pending diagnostic test information is unavailable Future Visits Future appointment information is unavailable Referrals to Other Providers Reason for Referral Referral Start Date Provider Provider Contact Information Provider Address Post surgery appointment. He will remove your sutures at this appointment. Ravin Campoverde MD Work Phone: [facility] [place] [address] Future Procedures Procedure Name Ordered Date Scheduled Date Admit Status Order February 06, 2025 12:32pm Aug ust 2024 12:32pm Discharge Order February 07, 2025 5:49pm February 07, 2025 5:49pm Consult to Orthopedic Surgery February 04, 2025 8:15pm February 04, 2025 8:15pm Future Medications Future medication information is unavailable Patient Instructions Instruction Admit Date Cholecalciferol Oxycodone Know your Meds February 04, 2025 7:29pm
--- OUTSIDE RECORDS SUMMARY | 2025-03-06 12:44 | XMS_ITS | Clinical Summary ---
Author Organization [facility] Address [address] [place] [address] Care Team Providers Care Mine Engineering Supervisor Name Role Phone Min Mcgregor MD Primary Care Provider +- Luli Roy (Hist) Unavailable [phone] Shimon Roblero Unavailable [phone] Allergies Active Allergy Reactions Criticality Noted Date [...] N ot on file 05/21/2020 Data from: https://www.neighborhoodatlas.medicine.[facility].edu/. Last address used for calculation [...] Protein, Total 7.2 6.0 - 8.4 g/dL [facility] Albumin 4.6 3.5 - 5.0 g/dL [facility] Calcium 10.2 8.5 - 10.5 mg/dL [facility] Bilirubin, Total 0.4 0.0 - 1.5 mg/dL [facility] Alkaline Phosphatase 69 40 - 150 U/L [facility] AST 23 7 - 40 U/L [facility] Glucose 108(H) 65 - 100 mg/dL [facility] BUN 11 8 - 25 mg/dL [facility] Creatinine 0.81 0.70 - 1.40 mg/dL [facility] Sodium 141 132 - 148 mmol/L [facility] Potassium 4.4 3.5 - 5.0 mmol/L [facility] Chloride 106 98 - 110 mmol/L [facility] CO2 23 23 - 32 mmol/L [facility] Anion Gap 12 0 - 15 mmol/L [facility] ALT 19 0 - 45 U/L [facility] eGFR- >60 [facility] eGFR-All Other Races >60 . [facility] Comment: eGFR (Estimated GFR) Units [...] EDT Jeremy Snyder MD LABORATORY Final Result [facility] [address] [place] [address] from Last 3 Months or Most Recently Relevant to Health Maintenance Insurance [facility] MEDICARE ADVANTAGE O Care Teams Mine Engineering Supervisor Relationship Specialty Start Date End Date Min Mcgregor MD PCP - General 09/07/09 Luli Roy (Hist)MD [address] [place] [address] Referring Gastroenterology 05/04/18 Shimon Roblero PA [address] [place], [place] [address] Referring Pain Management 08/29/22
--- OUTSIDE RECORDS SUMMARY | 2025-03-06 12:44 | XMS_ITS | Encounter Summary ---
Author Organization [facility] Address [address] [place] [address] Care Team Providers Care Supervisor Mold Yard Name Role Phone Min Mcgregor MD Primary Care Provider + Luli Roy (Hist) Unavailable [phone] Shimon Roblero Unavailable [phone] Source Comments In the event this information is protected by the Federal Confidentiality of Alcohol and Drug AbusePatient Records regulations: The Federal rules restrict any use of the information to criminally investigate or prosecute any alcohol or drug abuse patient.[facility] Encounter Details Date Type Department Care Team (Late st Contact Info) Description 01/11/2021 [place] [address] Provider, f Medicare Coverage of Physical Exams [...] N ot on file 05/21/2020 Data from: https://www.neighborhoodatlas.medicine.[facility].edu/. Last address used for calculation Not on [...] on filedocumented in this encounter Care Teams Supervisor Mold Yard Relationship Specialty Start Date End Date Min Mcgregor MD PCP - General 09/07/09 Luli Roy (Hist), [address] [place] [place] [address] Referring Gastroenterology 05/04/18 Shimon Roblero PA [address] [place] [address] Referring Pain Management 08/29/22 documented as of this encounter
--- OUTSIDE RECORDS SUMMARY | 2025-03-06 12:44 | XMS_ITS | Clinical Summary ---
Author Organization [facility] Address [address] [place] [address] Care Team Providers Care Casino Floor Person Name Role Phone Min Mcgregor MD Primary Care Provider [phone] JimJosh wilks OD Unavailable Allergies Active [...] (06/17/2024): Added automatically from request for surgery [id number] 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 region 06/03/2022 Overview (06/17/2024): Added automatically from request for surgery [id number] Idiopathic chronic pancreatitis 05/13/2018 Abdominal pain 09/20/2009 [...] Narrative 03/26/2022 12:00 AM EDT PERFORMED AT [facility] LOCATION:[place] [address] Patient: ABDIAS Maciel Exam Date: 03/26/2022 : 1955 Gender:F Ordering : DR BAR TEJADA . Admission #: [id number] Family : Order #: [id number] CLICK HERE TO VIEW EXAM RADIOLOGY REPORT [...] cancer at age 30. LOCATION: [facility] BREAST COMPOSITION: Heterogeneously dense which may obscure [...] Note CONVERSION, GENERIC - 12/19/2022 PERFORMED AT [facility] LOCATION:[place] [address] Patient: ABDIAS Maciel Exam Date: 03/26/2022 : 1955 Gender:F Ordering : DR BAR TEJADA . Admission #: [id number] Family : Order #: [id number] CLICK HERE TO VIEW EXAM RADIOLOGY REPORT [...] cancer at age 30. LOCATION: [facility] BREAST COMPOSITION: Heterogeneously dense which may obscure [...] Maintenance Insurance [employer] MED[employer]ARE ADVANTAGE Care Teams Casino Floor Person Relationship Specialty Start Date End Date Min Mcgregor MD PCP - General Family Medicine 07/27/23 Josh Fernandez OD [address] [place] [address] Referring Physician Optometry 01/11/24
--- OUTSIDE RECORDS SUMMARY | 2025-03-06 12:44 | XMS_ITS | Clinical Summary ---
Author Organization [facility] Address [id number] [address] [place] [address] Care Team Providers Care Intermediate Accountant Name Role Phone Min Mcgregor MD Primary Care Provider [phone] Allergies Active Allergy Reactions Criticality Noted Date [...] (07/10/2022): Added automatically from request for surgery [id number] 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 region 06/03/2022 Overview (06/03/2022): Added automatically from request for surgery [id number] Social History Tobacco Use Types Packs/Day Years [...] Adult BMI Screening 08/29/2023 08/28/2022 COVID-19 Vaccine (2024-2 6 season) 2025 10/13/2021, 11/13/2020, 09/21/2020, Additional history exists Influenza Vaccine 02/13/2025 04/09/2022, 03/19/2020 Medical Devices Not on file Insurance [employer]ARE Care Teams Intermediate Accountant Relationship Specialty Start Date End Date Min Mcgregor MD PCP - General Family Medicine 05/30/22
--- OUTSIDE RECORDS SUMMARY | 2025-03-06 12:44 | XMS_ITS | Encounter Summary ---
Author Organization [facility] tem Address [id number] [address] [place] [address] Care Team Providers Care Metal Bumper Name Role Phone Min Mcgregor MD Primary Care Provider [phone] Encounter Details Date Type Department Care Team (Late st Contact Info) Description 06/11/2022 Orders Only [facility] [address] [place] [address] Min Mcgregor MD [address] [place] [address] Social History Tobacco Use Types Packs/Day Years [...] on filedocumented in this encounter Care Teams Metal Bumper Relationship Specialty Start Date End Date Min Mcgregor MD PCP - General Family Medicine 05/30/22 documented as of this encounter
--- OUTSIDE RECORDS SUMMARY | 2025-03-06 12:44 | XMS_ITS | Encounter Summary ---
Author Organization [facility] Address [address] [place] [address] Care Team Providers Care Cdl Truck Driver Name Role Phone Min Mcgregor MD Primary Care Provider [phone] Josh Fernandez OD Unavailable Encounter Details Date Type Department Care Team (Late st Contact Info) Description 08/15/2024 Orders Only [facility] [address] [facility] [address] [place] [address] Min Mcgregor MD [address] [facility] [place] [address] Social History Tobacco Use Types Packs/Day Years [...] on filedocumented in this encounter Care Teams Cdl Truck Driver Relationship Specialty Start Date End Date Min Mcgregor MD PCP - General Family Medicine 07/27/23 Josh Fernandez OD [address] [place] [address] Referring Physician Optometry 01/11/24 documented as of this encounter
--- OUTSIDE RECORDS SUMMARY | 2025-03-06 12:44 | XMS_ITS | Encounter Summary ---
Author Organization [facility] Address [address] [place] [address] Care Team Providers Care Curriculum Developer Name Role Phone Min Mcgregor MD Primary Care Provider [phone] Josh Fernandez OD Unavailable Encounter Details Date Type Department Care Team (Late st Contact Info) Description 01/18/2024 Clinisync Result Encounter [facility] Unsolicited Basim Phan, DO [address] [place], [place] [id number] Social History Tobacco Use Types Packs/Day Years [...] on filedocumented in this encounter Care Teams Curriculum Developer Relationship Specialty Start Date End Date Min Mcgregor MD PCP - General Family Medicine 07/27/23 Josh Fernandez OD [address] [place] [address] Referring Physician Optometry 01/11/24 documented as of this encounter
--- OUTSIDE RECORDS SUMMARY | 2025-03-06 12:44 | XMS_ITS | Encounter Summary ---
Author Organization [facility] tem Address [id number] [address] [place] [address] Care Team Providers Care Head Of Digital Name Role Phone Min Mcgregor MD Primary Care Provider [phone] Encounter Details Date Type Department Care Team (Late st Contact Info) Description 06/10/2022 Telephone [facility] [address] [place] [address] Ariadne Munoz RN Social History Tobacco Use [...] is unable to get into see the GREASE REFINING SUPERVISOR until . The PCP office also gave [...] that she can take the percocet and magazine writer will forward message to today's provider [...] if she took the offered appointment with GREASE REFINING SUPERVISOR at PCP's office. She said she did not but will callto get in w/ GREASE REFINING SUPERVISOR if pain persists. documented in this encounter Plan of Treatment Not on file documented as of this encounter Visit Diagnoses Not on filedocumented in this encounter Care Teams Head Of Digital Relationship Specialty Start Date End Date Min Mcgregor MD PCP - General Family Medicine 05/30/22 documented as of this encounter
--- OUTSIDE RECORDS SUMMARY | 2025-03-06 12:55 | XMS_ITS | CCD ---
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 Name Role Phone Anitha Mcgregor MD Primary Care Provider [phone] Luli Roy MD (Hist) Unavailable ANITHA MCGREGOR Primary Care Unavailable BENJAMIN MOORE Attending Unavailable AIDEY, DR WELSH Consulting Unavailable HOY, DR WELSH Primary Care Unavailable HOY, DR WELSH Attending Unavailable HOY, DR WELSH Admitting Unavailable ZIEBER, DR TYRELL Alonzo Consulting Unavailable AIDEY, DR WELSH Consulting Unavailable HOY, DR WELSH Attending Unavailable HOY, DR WELSH Admitting Unavailable HOY, DR WELSH Primary Care Unavailable HOY, DR WELSH Consulting Unavailable AIDEY, DR WLESH Primary Care Unavailable HOY, DR [...] Provider UnavailAnitha Montague MD Primary Care Provider [phone] Cindy Phan Admitting Unavailable Cindy Phan Attending [...] Anitha Mcgregor MD Primary Care Provider Oswaldo DEMARCO-HIGH RIGGER-Екатерина Caicedo Attending Provider Dax Matt DO Admit Provider Dax Matt DO Other Provider [phone] aRvin Campoverde MD Attending Provider Ravin Campoverde MD Other Provider Maricruz Tobias MD Other Provider Clint Sotelo DO Other Provider [phone] Ryan Henderson MD Other Provider Steven Ramsay DO Other Provider Gilles, Ravin Attending Unavailable Anitha Mcgregor Primary Care Unavailable Oletano, Ravin Admitting Unavailable Anitha Mcgregor Primary Care Unavailable OleRavin freedman Admitting Unavailable OleRavin freedman Attending Unavailable ShakaAlaynaDax Admitting UnavailAnitha Montague Primary Care Unavailable Heath Saavedra Attending Unavailab le Gilles, Ravin Consulting Unavailable Maricruz Tobias Consulting Unavailable Clint Sotelo Consulting Unavailable Ryan Henderson II Consulting Unavailperry e Steven Ramsay Consulting Unavailable Allergies Allergy Classification Reported Allergen(s) Allergy Type Date of Onset Reaction(s) Facility (16 sources) Acetaminophen / oxyCODONE; Translations: [OXYCODONE-ACETAMIN OPHEN] Drug Allergy 06-03-20 Other: See Peter, Alejandro [facility] (3 sources) Adhesive Tape; Translations: [ADHESIVE TAPE (ROSINS)] Allergy to substance Other: See Comments [facility] (12 sources) Aspirin; Translations: [ASPIRIN] Drug Allergy 09-14-19 10 Unknown, Unknown Reaction, Anaphylaxis [facility] (3 sources) Butorphanol; Translations: [BUTORPHANOL TARTRATE] Drug Allergy 09-14-19 Other: See Comments [facility] (20 sources) Ciprofloxacin; Translations: [CIPROFLOXACIN] Drug Allergy 06-03-20 Other: See Peter [facility] (3 sources) Etodolac; Translations: [ETODOLAC] Drug Allergy 09-14-19 10 [facility] (3 sources) homatropine / HYDROcodone; Translations: [HYDROCODONE-HOMATR OPINE] Drug Allergy Other: See Comments [facility] (3 sources) HYDROmorphone; Translations: [HYDROMORPHONE (BULK)] Drug Allergy 04-10-[address] [facility] (20 sources) Morphine; Translations: [MORPHINE] Drug Allergy 09-14-19 10 Unknown, Unknown Reaction, Abdominal Pain [facility] (3 sources) Promethazine; Translations: [PROMETHAZINE HCL] Drug Allergy 09-14-19 10 [facility] (1 source) Acetaminophen / oxyCODONE Drug Allergy [facility] Rep[facility] (1 source) Aspirin Drug Allergy [facility] (5 sources) Butorphanol; Translations: [Stadol] Drug Allergy Unknown [facility] (1 source) Ciprofloxacin Drug Allergy [facility] (1 source) Desonide Drug Allergy [facility] (3 sources) Etodolac; Translations: [Lodine] Drug Allergy [facility] (1 source) homatropine Drug Allergy [facility] (3 sources) HYDROmorphone; Translations: [Dilaudid] Drug Allergy [facility] (3 sources) Levamisole; Translations: [Phenergan] Drug Allergy [facility] (1 source) Morphine Drug Allergy [facility] (1 source) Bleach (Sodium Hypochlorite) Drug allergy (disorder) 01-11-19 56 [facility] (20 sources) HYDROmorphone Drug Allergy 04-10-20 11 Rash [facility] [employer] Other (2 sources) Promethazine Drug Allergy Unknown [facility] [employer] Other (7 sources) traMADol Drug Allergy 01-24-20 25 Unknown, Unknown Reaction [facility] (13 sources) Aluminum aspirin Drug Allergy 09-14-19 10 Anaphylaxis [facility] Work Phone: (18 sources) Butorphanol Drug Allergy 09-14-19 10 Rash [facility] (13 sources) Etodolac Propensity to adverse reactions 09-14-19 10 Rash [facility] (18 sources) Promethazine Drug Allergy 09-14-19 10 Unknown Reaction [facility] (13 sources) Sulfamethoxazole / Trimethoprim Drug Allergy 06-03-20 22 [facility] (13 sources) Theophylline Drug Allergy 06-03-20 [facility] (2 sources) Acetaminophen / oxyCODONE; Translations: [Percocet 5/325] Drug Allergy [facility] Repository (2 sources) Adhesive Tape; Translations: [Tape] Propensity to adverse reactions (disorder) [facility] Repository (2 sources) homatropine / HYDROcodone; Translations: [Hydromet] Drug Allergy [facility] Repository (14 sources) Citalopram Drug Allergy 06-20-19 Unknown Reaction [facility] (6 sources) hydrOXYzine; Translations: [hydroxyzine] Drug Allergy 01-24-20 Unknown Reaction [facility] (6 sources) Memantine; Translations: [memantine] Drug Allergy 01-24-20 Hives [facility] (6 sources) Metoclopramide; Translations: [metoclopramide] Drug Allergy 01-24-20 Unknown Reaction [facility] (6 sources) Niacin; Translations: [niacin] Drug Allergy 01-24-20 Unknown Reaction, pain [facility] (6 sources) Sulfamethoxazole; Translations: [sulfamethoxazole] Drug Allergy 01-24-20 Unknown Reaction, Rash [facility] (6 sources) SUMAtriptan; Translations: [sumatriptan] Drug Allergy 01-24-20 Unknown Reaction, Hypotension [facility] (6 sources) Trimethoprim; Translations: [trimethoprim] Drug Allergy 01-24-20 Unknown Reaction, Rash [facility] (1 source) Aspirin Drug Allergy 02-22-20 [facility] Repository (1 source) Butorphanol Drug Allergy 02-22-20 [facility] Repository (1 source) Ciprofloxacin Drug Allergy 02-22-20 [facility] Repository (1 source) Citalopram Drug Allergy 02-22-20 [facility] Repository (1 source) HYDROmorphone Drug Allergy 02-22-20 [facility] Repository (1 source) Morphine Drug Allergy 02-22-20 [facility] Repository (1 source) Promethazine Drug Allergy 02-22-20 [facility] Rep[facility] (1 source) traMADol Drug Allergy 02-22-20 [facility] Repository Medications Current Medications Medication Drug [...] mg/mg oral paste (2 sources) Corticosteroid Start: triamcinolone (Kenalog) 0.1 % oral paste APPLY [...] Class(es) Dates Sig (Normalized) Sig (Original) amylase 432662 unt / lipase 16784 unt / protease 45309 unt delayed release oral capsule (2 sources) [...] affected ar ea twice daily. 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; Translations: [OTH CORRECTION CURRENT DRUG THERAPY] Onset: 06-19-19 Episodic Other [...] in left lower leg] 02-23-2025 Episodic Other connective tissue disease (1 source) Pain in left lower leg; Translations: [Pain in left lower leg] Onset: 02-24-20 Episodic Other connective tissue disease (1 source) Pain in left foot; Translations: [Pain in left foot] Onset: 02-22-20 Episodic Other gastrointestinal disorders (2 sources) Irritable [...] Test Name Value Interpretation Reference Range Facility US venous duplex LE BIon US venous duplex [facility] Main [place] [id number] Ultrasound Report Signed Patient: Skip Hong MR#: [id number] : 1955 Acct:[id number] Age/Sex: 70 / F ADM Date: 02/23/25 Loc: Room: Type: [facility] CLI Attending Dr: Ravin Campoverde MD Ordering Provider: Ravin Campoverde MD Date of Service: 02/23/25 US/US venous duplex LE BI: eval for DVT Copies to: Ravin Campoverde MD BILATERAL LOWER EXTREMITY VENOUS DUPLEX INDICATION: Lateral lower extremity edema, pain and tenderness. PROCEDURE: Color-flow duplex scanning is used to interrogate the deep venous system of the right and left lower extremities. The common femoral vein, femoral vein and popliteal vein show good compressibility with normal proximal and distal augmentation. The calf veins are compressible. US/US venous duplex LE BI IMPRESSION: NO EVIDENCE FOR DEEP VEIN THROMBOSIS OR PROXIMAL SUPERFICIAL THROMBOPHLEBITIS IN THE RIGHT OR LEFT LOWER EXTREMITY. Impression dictated by: Shimon Melgar MD,FACS,FSVS 02/24/2025 7:47 AM Dictation Location: [place] [address] Tech: Citlaly Honorio Transcribed By: [facility] 02/24/25 0747 Dictated By: Shimon Melgar MD 02/24/25 0746 Signed By: 02/24/25 0747 Normal [facility] X-ray reportOrdered By: Guerrero Gleason on 02-21-2025 Study report [facility] [address] [place] [address] XRay Report Signed Patient: Skip Hong MR#: [id number] : 1955 Acct:[id number] Age/Sex: 70 / F ADM Date: 5 [place] [facility] [place]: Type: [facility] CLI Attending Dr: Ravin Campoverde MD Copies to: Ravin Campoverde MD~ Ordering Provider: Ravin Campoverde MD Date of Service: 02/21/25 XR/XR ankle LT min 3V*: Z98.890 - Other specified postprocedural states ([id number]) XR/XR foot LT min 3V*: M79.672 - [...] Jr., D.OKim 02/21/2025 11:18 AM Dictation Location: [place] [address] Transcribed By: [facility] 02/21/25 1118 Dictated By: Alex Gleason Jr, DO 02/21/25 1116 Signed By: 02/21/25 1118 [facility] XR foot LT min 3V*on 025 XR foot LT min 3V* [facility] [address] [place] [address] XRay Report Signed Patient: Skip Hong MR#: [id number] : 1955 Acct:[id number] Age/Sex: 70 / F ADM Date: 02/21/25 [place] [facility] [place]: Type: [facility] Attending Dr: Ravin Campoverde MD Copies to: Ravin Campoverde MD Ordering Provider: Ravin Campoverde MD Date of Service: 02/21/25 XR/XR ankle LT min 3V*: Z98.890 - Other specified postprocedural states ([id number]) XR/XR foot LT min 3V*: M79.672 - [...] Jr., D.O. 02/21/2025 11:18 AM Dictation Location: RADIO-PC-23 Transcribed By: LENA 02/21/25 1118 Dictated By: Alex Gleason Jr, DO 02/21/25 111 Signed By: 02/21/25 111 Normal [facility] XR ankle LT 2Von 02-09-2025 XR ankle LT 2V [facility] [place] [address] XRay Report Signed Patient: Skip Hong MR#: [id number] : 1955 Acct:[id number] Age/Sex: 70 / F ADM Date: 02/04/25 Loc: Room: [address] [place] [address] Type: DIS IN Attending Dr: Heath Saavedra [...] Jr., D.O. 02/09/2025 1:19 PM Dictation Location: RADIO-PC-22 Transcribed By: [facility] 02/09/25 1319 Dictated By: Alex Gleason Jr, DO 02/09/25 1319 Signed By: 02/09/25 131 Normal [facility] Basic Metabolic Panelon 08- Anion gap [Moles/Vol] 12.6 mmol/L Normal 6.0-15.0 Th e [facility] Comment on above: Performed By: #### S CAN CBC, BMP ####[place] [id number] [place] [id number] [facility] Calcium [Mass/Vol] 9.1 mg/dL Normal 8.6-10.3 [facility] Comment on above: Performed By: #### S CAN CBC, BMP ####[place] [address] [place] [id number] [facility] Chloride [Moles/Vol] 102 mmol/L Normal 98-107 [facility] Comment on above: Performed By: #### S CAN CBC, BMP ####[place] [id number] [facility] CO2 [Moles/Vol] 24.9 mmol/L Normal 21.0-31.0 [facility] Comment on above: Performed By: #### S CAN CBC, BMP ####[place] [id number] [facility] Creatinine [Mass/Vol] 0.84 mg/dL Normal 0.60-1.20 [facility] Comment on above: Performed By: #### S CAN CBC, BMP ####[place] [id number] [place] Creatinine Clr Calc Pharmacy 56.88 Normal [facility] Comment on above: Result Comment: PERF ORMED BY: [facility] [address] [place] [address] PATHOLOGIST PHOTOGRAPHER'S MODEL MELVIN RICHARDS M.D. Performed By: #### S CAN CBC, BMP ####[place] [id number] [place] GFR/1.73 sq M.predicted MDRD (S/P/Bld) [Vol rate/Area] mL/min/{1.73_m2} Normal [facility] Comment on above: Performed By: #### S CAN CBC, BMP ####[place] [id number] [facility] Glucose [Mass/Vol] 111 mg/dL High 70-100 [facility] Comment on above: Result Comment: [facility] Glucose Reference Range is dependent on time and content of last meal. Glucose of more than 200 mg/dL in a nonstressed, ambulatory subject supports the diagnosis of Diabetes Mellitus. ADA recommended reference range Performed By: #### S CAN CBC, BMP ####[address] Potassium [Moles/Vol] 4.5 mmol/L Normal 3.5-5.1 [facility] Comment on above: Result Comment: Hemo lysis is present at a level that could interfere with the result. Contact lab if redraw is required Performed By: #### S CAN CBC, BMP ####[address] Sodium [Moles/Vol] 135 mmol/L Low 136-145 [facility] Comment on above: Performed By: #### S CAN CBC, BMP ####[address] Urea nitrogen [Mass/Vol] 11 mg/dL Normal 7-25 [facility] Comment on above: Performed By: #### S CAN CBC, BMP ####[address] Scan and CBCon 02-07-2025 Anisocytosis Ql (Bld) Slight Normal [facility] Comment on above: Performed By: #### S CAN CBC, BMP ####[address] Basophils (Bld) [#/Vol] 0.1 10*3/uL Normal 0.0-0.2 [facility] Comment on above: Performed By: #### S CAN CBC, BMP ####[address] Basophils/100 WBC (Bld) 0.4 % Normal . [facility] Comment on above: Performed By: #### S CAN CBC, BMP ####[address] Eosinophils (Bld) [#/Vol] 0.0 10*3/uL Normal 0.0-0.45 [facility] Comment on above: Performed By: #### S CAN CBC, BMP ####[address] Eosinophils/100 WBC (Bld) 0.0 % Normal . [facility] Comment on above: Performed By: #### S CAN CBC, BMP ####[address] Erythrocyte distribution width (RBC) [Ratio] 13.7 % Normal 11.9-15.3 [facility] Comment on above: Performed By: #### S CAN CBC, BMP ####[address] Hematocrit (Bld) [Volume fraction] 36.3 % Normal 34.0-46.4 [facility] Comment on above: Performed By: #### S CAN CBC, BMP ####[address] Hemoglobin (Bld) [Mass/Vol] 12.4 g/dL Normal 11.8-15.4 [facility] Comment on above: Performed By: #### S CAN CBC, BMP ####[address] Lymphocytes (Bld) [#/Vol] 1.5 10*3/uL Normal 1.00-4.8 [facility] Comment on above: Performed By: #### S CAN CBC, BMP ####[address] Lymphocytes/100 WBC (Bld) 9.6 % Normal . [facility] Comment on above: Performed By: #### S CAN CBC, BMP ####[address] MCH (RBC) [Entitic mass] 30.3 pg Normal 24.7-34.3 [facility] Comment on above: Performed By: #### S CAN CBC, BMP ####[address] MCV (RBC) [Entitic vol] 88.8 fL Normal 80-100 [facility] Comment on above: Performed By: #### S CAN CBC, BMP ####[address] Mean Corpuscular HGB Conc 34.1 g/dL Normal 32.0-35.0 [facility] Comment on above: Performed By: #### S CAN CBC, BMP ####[address] Microcytosis Slight Normal [facility] Comment on above: Performed By: #### S CAN CBC, BMP ####[address] Monocytes (Bld) [#/Vol] 1.9 10*3/uL High 0.0-0.8 [facility] Comment on above: Performed By: #### S CAN CBC, BMP ####[address] Monocytes/100 WBC (Bld) 12.6 % Normal . [facility] Comment on above: Performed By: #### S CAN CBC, BMP ####[address] Neutrophils (Bld) [#/Vol] 11.7 10*3/uL High 1.8-7.7 [facility] Comment on above: Performed By: #### S CAN CBC, BMP ####[address] Neutrophils/100 WBC (Bld) 77.4 % Normal . [facility] Comment on above: Performed By: #### S CAN CBC, BMP ####[place] [id number] [facility] NRBC% 0.1 /100{WBC} Normal 0-0.5 [facility] Comment on above: Performed By: #### S CAN CBC, BMP ####[place] [id number] [facility] Platelet Estimate Normal Normal Normal [facility] Comment on above: Performed By: #### S CAN CBC, BMP ####[address] [address] [facility] Platelet mean volume (Bld) [Entitic vol] 7.7 fL Normal 6.3-10.7 [facility] Comment on above: Performed By: #### S CAN CBC, BMP ####[address] [address] [facility] Platelet Morphology Normal Normal Normal [facility] Comment on above: Result Comment: PERF ORMED BY: [facility] [address] [place] [address] PATHOLOGIST PHOTOGRAPHER'S MODEL MELVIN RICHARDS M.D. Performed By: #### S CAN CBC, BMP ####[place] [id number] [facility] Platelets (Bld) [#/Vol] 334 10*3/uL Normal 150-450 [facility] Comment on above: Performed By: #### S CAN CBC, BMP ####[place] [id number] [facility] RBC (Bld) [#/Vol] 4.09 10*6/uL Normal 3.60-5.00 [facility] Comment on above: Performed By: #### S CAN CBC, BMP ####[place] [id number] [facility] WBC (Bld) [#/Vol] 15.1 10*3/uL High 3.8-11.6 [facility] Comment on above: Performed By: #### S CAN CBC, BMP ####[place] [id number] [facility] White Blood Count 15.1 [CFU]/mL High 3.8-11.6 [facility] Comment on above: Performed By: #### S CAN CBC, BMP ####[place] [id number] [facility] CT ankle LT wo conon 02-05- 025 CT ankle LT wo con [facility] Main [place] [address] [place] [address] CT Scan Report Signed Patient: Skip Hong MR#: [id number] : 1955 Acct:[id number] Age/Sex: 70 / F ADM Date: 02/04/25 Loc: Room: 8L5856-3 Type: ADM IN Attending Dr: Dax Matt [...] Shaffer M.D. 02/05/2025 4:39 PM Dictation Location: [place] [address] Transcribed By: [facility] 02/05/25 1639 Dictated By: Oral Shaffer II, MD 02/05/25 1636 Signed By: 02/05/25 1639 Normal [facility] ECG 12 lead ECGon 02-05-2025 ECG 12 lead ECG [facility] [place] [address] Electrocardiograph Report Signed Patient: Skip Hong MR#: [id number] : 1955 Acct:[id number] Age/Sex: 70 / F ADM Date: 02/04/25 Loc: Room: [address] [place] [address] Type: ADM IN Attending Dr: Dax Matt [...] ECG No previous ECGs available Confirmed by CINDY FORRESTER MD ([id number]) on 02/05/2025 9:49:35 AM Referred By: Electronically Signed By: CINDY FORRESTER MD Transcribed By: [facility] Signed By Cindy Forrester MD 0 02/05/25 0949 Normal [facility] Basic Metabolic Panelon 08 Anion gap [Moles/Vol] 10.6 mmol/L Normal 6.0-15.0 [facility] Comment on above: Performed By: #### V [id number], PTT, MG, BMP, CBC, PT #### [facility] [address] [place] [id number] [place] Calcium [Mass/Vol] 8.9 mg/dL Normal 8.6-10.3 [facility] Comment on above: Performed By: #### V [id number], PTT, MG, BMP, CBC, PT #### [facility] [address] [place] [address] [place] Chloride [Moles/Vol] 112 mmol/L High 98-107 [facility] Comment on above: Performed By: #### V [id number], PTT, MG, BMP, CBC, PT #### [facility] [address] [place] [address] [place] CO2 [Moles/Vol] 23.0 mmol/L Normal 21.0-31.0 [facility] Comment on above: Performed By: #### V [id number], PTT, MG, BMP, CBC, PT #### [facility] [address] Creatinine [Mass/Vol] 0.96 mg/dL Normal 0.60-1.20 [facility] Comment on above: Performed By: #### V [id number], PTT, MG, BMP, CBC, PT #### [facility] [address] [place] [address] [place] Creatinine Clr Calc Pharmacy 50.22 Normal [facility] Comment on above: Performed By: #### V [id number], PTT, MG, BMP, CBC, PT #### [place] [address] [place] GFR/1.73 sq M.predicted MDRD (S/P/Bld) [Vol rate/Area] mL/min/{1.73_m2} Normal [facility] Comment on above: Performed By: #### V [id number], PTT, MG, BMP, CBC, PT #### [facility] [address] Glucose [Mass/Vol] 108 mg/dL High 70-100 [facility] Comment on above: Result Comment: [facility] Glucose Reference Range is dependent on time and content of last meal. Glucose of more than 200 mg/dL in a nonstressed, ambulatory subject supports the diagnosis of Diabetes Mellitus. ADA recommended reference range Performed By: #### V [id number], PTT, MG, BMP, CBC, PT #### [address] Potassium [Moles/Vol] 3.6 mmol/L Normal 3.5-5.1 [facility] Comment on above: Performed By: #### V [id number], PTT, MG, BMP, CBC, PT #### [address] Sodium [Moles/Vol] 142 mmol/L Normal 136-145 [facility] Comment on above: Performed By: #### V [id number], PTT, MG, BMP, CBC, PT #### [address] Urea nitrogen [Mass/Vol] 12 mg/dL Normal 7-25 [facility] Comment on above: Performed By: #### V [id number], PTT, MG, BMP, CBC, PT #### [address] Complete Blood Count Auto Di ffon 02-04-2025 Basophils (Bld) [#/Vol] 0.1 10*3/uL Normal 0.0-0.2 [facility] Comment on above: Result Comment: PERF ORMED BY: [place] [address] PATHOLOGIST PHOTOGRAPHER'S MODEL MELVIN RICHARDS M.D. Performed By: #### V [id number], PTT, MG, BMP, CBC, PT #### [address] Basophils/100 WBC (Bld) 0.9 % Normal . [facility] Comment on above: Performed By: #### V [id number], PTT, MG, BMP, CBC, PT #### [address] Eosinophils (Bld) [#/Vol] 0.0 10*3/uL Normal 0.0-0.45 [facility] Comment on above: Performed By: #### V [id number], PTT, MG, BMP, CBC, PT #### [address] Eosinophils/100 WBC (Bld) 0.5 % Normal . [facility] Comment on above: Performed By: #### V [id number], PTT, MG, BMP, CBC, PT #### [address] Erythrocyte distribution width (RBC) [Ratio] 13.8 % Normal 11.9-15.3 [facility] Comment on above: Performed By: #### V [id number], PTT, MG, BMP, CBC, PT #### [address] Hematocrit (Bld) [Volume fraction] 38.8 % Normal 34.0-46.4 [facility] Comment on above: Performed By: #### V [id number], PTT, MG, BMP, CBC, PT #### [address] Hemoglobin (Bld) [Mass/Vol] 13.2 g/dL Normal 11.8-15.4 [facility] Comment on above: Performed By: #### V [id number], PTT, MG, BMP, CBC, PT #### [address] Lymphocytes (Bld) [#/Vol] 2.5 10*3/uL Normal 1.00-4.8 [facility] Comment on above: Performed By: #### V [id number], PTT, MG, BMP, CBC, PT #### [address] Lymphocytes/100 WBC (Bld) 23.7 % Normal . [facility] Comment on above: Performed By: #### V [id number], PTT, MG, BMP, CBC, PT #### [address] MCH (RBC) [Entitic mass] 30.7 pg Normal 24.7-34.3 [facility] Comment on above: Performed By: #### V [id number], PTT, MG, BMP, CBC, PT #### [address] MCV (RBC) [Entitic vol] 90.0 fL Normal 80-100 [facility] Comment on above: Performed By: #### V [id number], PTT, MG, BMP, CBC, PT #### [address] Mean Corpuscular HGB Conc 34.1 g/dL Normal 32.0-35.0 [facility] Comment on above: Performed By: #### V [id number], PTT, MG, BMP, CBC, PT #### [address] Monocytes (Bld) [#/Vol] 1.3 10*3/uL High 0.0-0.8 [facility] Comment on above: Performed By: #### V [id number], PTT, MG, BMP, CBC, PT #### [address] Monocytes/100 WBC (Bld) 12.2 % Normal . [facility] Comment on above: Performed By: #### V [id number], PTT, MG, BMP, CBC, PT #### [address] Neutrophils (Bld) [#/Vol] 6.5 10*3/uL Normal 1.8-7.7 [facility] Comment on above: Performed By: #### V [id number], PTT, MG, BMP, CBC, PT #### [address] Neutrophils/100 WBC (Bld) 62.7 % Normal . [facility] Comment on above: Performed By: #### V [id number], PTT, MG, BMP, CBC, PT #### [address] NRBC% 0.1 /100{WBC} Normal 0-0.5 [facility] Comment on above: Performed By: #### V [id number], PTT, MG, BMP, CBC, PT #### [address] Platelet mean volume (Bld) [Entitic vol] 7.4 fL Normal 6.3-10.7 [facility] Comment on above: Performed By: #### V [id number], PTT, MG, BMP, CBC, PT #### [place] [address] [place] Platelets (Bld) [#/Vol] 318 10*3/uL Normal 150-450 [facility] Comment on above: Performed By: #### V [id number], PTT, MG, BMP, CBC, PT #### [place] [address] [place] RBC (Bld) [#/Vol] 4.31 10*6/uL Normal 3.60-5.00 [facility] Comment on above: Performed By: #### V [id number], PTT, MG, BMP, CBC, PT #### [address] WBC (Bld) [#/Vol] 10.4 10*3/uL Normal 3.8-11.6 [facility] Comment on above: Performed By: #### V [id number], PTT, MG, BMP, CBC, PT #### [address] White Blood Count 10.4 [CFU]/mL Normal 3.8-11.6 [facility] Comment on above: Performed By: #### V [id number], PTT, MG, BMP, CBC, PT #### [address] Magnesiumon 02-04-2025 Magnesium [Mass/Vol] 1.9 mg/dL Normal 1.9-2.7 [facility] Comment on above: Performed By: #### V [id number], PTT, MG, BMP, CBC, PT #### [address] Partial Thromboplastin Timeo n 02-04-2025 aPTT Coag (Bld) [Time] 28.2 s Normal 25.1-36.5 [facility] Comment on above: Result Comment: A he matocrit value greater than 55% may lead to inaccurate results in coagulation testing. Patients having hematocrit values >55% require a special collection tube for coagulation studies. Please contact the laboratory at [phone] for redraw instructions. PERFORMED BY: [place] [address] PATHOLOGIST PHOTOGRAPHER'S MODEL MELVIN RICHARDS M.D. Performed By: #### V [id number], PTT, MG, BMP, CBC, PT #### [address] Prothrombin Time INRon 02-04 INR Coag (PPP) [Relative time] 0.9 {INR} Normal [facility] Comment on above: Result Comment: [...] 3 - 4.5 Performed By: #### V [id number], PTT, MG, BMP, CBC, PT #### [facility] [address] [place] [address] [facility] PT Coag (PPP) [Time] 10.7 s Normal 9.0-12.9 [facility] Comment on above: Result Comment: A he matocrit value greater than 55% may lead to inaccurate results in coagulation testing. Patients having hematocrit values >55% require a special collection tube for coagulation studies. Please contact the laboratory at [phone] for redraw instructions. Performed By: #### V [id number], PTT, MG, BMP, CBC, PT #### [address] [address] [facility] Vitamin D 25 Hydroxy Totalon 02-04-2025 Vitamin D 25 Hydroxy Total 22.5 ng/mL Low 30-100 [facility] Comment on above: Result Comment: [place] MIN D STATUS 25(OH)VITAMIN D RANGE (ng/mL) Deficient <20 Insufficient 20 to <30 Sufficient 30 to 100 Reference: Ernesto MF,Pierre NC, Gladys HOUSTON, et al. Evaluation,treatment, and prevention of vitamin D deficiency; an Endocrine Society clinical practice guideline. JCEM. 2010; 96(7):1911-30. PERFORMED BY: [place] [id number] PATHOLOGIST PHOTOGRAPHER'S MODEL MELVIN RICHARDS M.D. Performed By: #### V [id number], PTT, MG, BMP, CBC, PT #### [address] [address] [facility] XR Chest 2 Viewson 4 XR Chest 2 Views Exam Date/Time: 01/18/2024 [...] mGy = na DAP = na Normal [facility] BMPon 01-18-2024 Anion gap [Moles/Vol] 10 mmol/L Normal 6-16 [facility] Comment on above: Performed By: #### 2 [id number] #### [facility] Laboratory [address] [place] [address] Calcium [Mass/Vol] 9.6 mg/dL Normal 8.9-11.1 [facility] Comment on above: Performed By: #### 2 [id number] #### [facility] Laboratory [address] [place] [address] Chloride [Moles/Vol] 107 mmol/L Normal 101-111 [facility] Comment on above: Performed By: #### 2 [id number] #### [facility] Laboratory [address] [place] [address] CO2 [Moles/Vol] 26 mmol/L Normal 21-31 [facility] Comment on above: Performed By: #### 2 [id number] #### [facility] Laboratory [address] [place] [address] Creatinine [Mass/Vol] 0.9 mg/dL Normal 0.5-1.3 [facility] Comment on above: Performed By: #### 2 [id number] #### [facility] Laboratory [address] [place] [address] Glucose [Mass/Vol] 95 mg/dL Normal 55-199 [facility] Comment on above: Performed By: #### 2 [id number] #### [facility] Laboratory [address] [place] [address] Potassium [Moles/Vol] 3.9 mmol/L Normal 3.5-5.3 [facility] Comment on above: Performed By: #### 2 [id number] #### [facility] Laboratory [address] [place] [address] Sodium [Moles/Vol] 139 mmol/L Normal 135-145 [facility] Comment on above: Performed By: #### 2 [id number] #### [facility] Laboratory [address] [place] [address] Urea nitrogen [Mass/Vol] 9 mg/dL Normal 5-21 [facility] Comment on above: Performed By: #### 2 [id number] #### [facility] Laboratory [address] [place] [address] Urea nitrogen/Creatinine [Mass ratio] 10 No Units Normal 10-20 [facility] Comment on above: Performed By: #### 2 [id number] #### [facility] Laboratory [address] [place] [address] CBC w/Indiceson 01-18-2024 Erythrocyte distribution width (RBC) [Ratio] 14.5 % High 10.9-14.2 [facility] Comment on above: Performed By: #### 2 [id number] #### [facility] Laboratory [address] [place] [address] Hematocrit (Bld) [Volume fraction] 43.1 % Normal 34.0-46.0 [facility] Comment on above: Performed By: #### 2 [id number] #### [facility] Laboratory [address] [place] [address] Hemoglobin (Bld) [Mass/Vol] 14.5 g/dL Normal 12.0-16.0 [facility] Comment on above: Performed By: #### 2 [id number] #### [facility] Laboratory [address] [place] [address] MCH (RBC) [Entitic mass] 30.6 pg Normal 27.0-34.0 [facility] Comment on above: Performed By: #### 2 [id number] #### [facility] Laboratory [address] [place] [address] MCHC (RBC) [Mass/Vol] 33.6 g/dL Normal 31.4-36.0 [facility] Comment on above: Performed By: #### 2 [id number] #### [facility] Laboratory [address] [place] [address] MCV (RBC) [Entitic vol] 91.0 fL Normal 80.0-100.0 [facility] Comment on above: Performed By: #### 2 [id number] #### [facility] Laboratory [address] [place] [address] Platelet mean volume (Bld) [Entitic vol] 7.5 fL Normal 6.4-10.8 [facility] Comment on above: Performed By: #### 2 [id number] #### [facility] Laboratory [address] [place] [address] Platelets (Bld) [#/Vol] 300.0 E9/L Normal 150.0-500.0 [facility] Comment on above: Performed By: #### 2 [id number] #### [facility] Laboratory [address] [place] [address] RBC (Bld) [#/Vol] 4.7 E12/L Normal 4.3-5.9 [facility] Comment on above: Performed By: #### 2 [id number] #### [facility] Laboratory [address] [place] [address] RBC size Nom (Bld) NORMAL Invalid Interpretation Code [facility] Comment on above: Performed By: #### 2 [id number] #### [facility] Laboratory [address] [place] [address] WBC corrected for nucl RBC Auto (Bld) [#/Vol] 5.9 E9/L Normal 4.0-11.0 [facility] Comment on above: Performed By: #### 2 [id number] #### [facility] Laboratory [address] [place] [address] eGFRon 01-18-2024 eGFR 70 mL/min/1.73 m2 Normal >=59 [facility] Comment on above: Order Comment: Order added by Discern Expert. Performed By: #### 1 [id number] #### [facility] Laboratory [address] [place] [address] AMYLASEon 07-01-2022 Amylase [Catalytic activity/Vol] 117 U/L Critically high 25-115 [facility] Comment on above: Performed By: #### T SH, T7, ALIYAH, LIPA, CMP ####[facility] [address] [place], [place] [address]Dr. Lawrence Tone CBC AUTO DIFFon 07-01-2022 BASO # 0.1 103/ul Normal 0.0-0.1 [facility] Comment on above: Performed By: #### C BC ####[facility] [address] [place] [address]Dr. Laraantonio Wayne Basophils/100 WBC (Bld) 0.6 % Normal 0.2-2.0 [facility] Comment on above: Performed By: #### C BC ####[facility] [address] [place] [address]Dr. Laraantonio Wayne EO # 0.1 103/ul Normal 0.0-0.7 [facility] Comment on above: Performed By: #### C BC ####[facility] [address] [place] [id number]. Laraantonio Wayne Eosinophils/100 WBC (Bld) 0.7 % Critically low 0.9-7.0 [facility] Comment on above: Performed By: #### C BC ####[facility] [address] [place], [place] [address]Dr. Laraantonio Wayne Erythrocyte distribution width (RBC) [Ratio] 13.6 % Normal 11.0-15.0 [facility] Comment on above: Performed By: #### C BC ####[facility] [address] [place] [address]Dr. Lawrence Wayne Hematocrit (Bld) [Volume fraction] 45.6 % Normal 36.0-48.0 [facility] Comment on above: Performed By: #### C BC ####[facility] [address] [place], [place] [address]Dr. Lawrence Wayne Hemoglobin (Bld) [Mass/Vol] 15.4 g/dL Normal 12.0-16.0 [facility] Comment on above: Performed By: #### C BC ####[facility] [address] [place], [place] [address]Dr. Lawrence Wayne IG # 0.03 10e3/ul Normal 0.00-0.03 [facility] Comment on above: Performed By: #### C BC ####[facility] [address] [place], [place] [address]Dr. Lawrence Wayne IG % 0.4 % Normal 0.0-0.5 [facility] Comment on above: Performed By: #### C BC ####[facility] [address] [place], [place] [address]Dr. Laraantonio Wayne LYMPH # 2.8 103/ul Normal 1.2-3.8 [facility] Comment on above: Performed By: #### C BC ####[facility] [address] [place], [place] [address]Dr. Lawrence Wayne Lymphocytes/100 WBC (Bld) 33.5 % Normal 20.5-60.0 [facility] Comment on above: Performed By: #### C BC ####[facility] Br[address] [place], [place] [address]Dr. Lawrence Wayne MANUAL DIFF REQ NO Normal [facility] Comment on above: Performed By: #### C BC ####[facility] [address] [place], [place] [address]Dr. Lawrence Wayne MCH (RBC) [Entitic mass] 30.1 pg Normal 26.7-34.0 [facility] Comment on above: Performed By: #### C BC ####[facility] [address] [place] [id number]. Lawrence Tone MCHC (RBC) [Mass/Vol] 33.8 g/dL Normal 29.9-35.2 [facility] Comment on above: Performed By: #### C BC ####[facility] [address] [place] [address]Dr. Lawrence Wayne MCV (RBC) [Entitic vol] 89.2 fL Normal 81.0-99.0 [facility] Comment on above: Performed By: #### C BC ####[facility] [address] [place] [address]Dr. Lawrence Wayne MONO # 0.8 103/ul Normal 0.3-0.8 [facility] Comment on above: Performed By: #### C BC ####[facility] [address] [place], [place] [address]Dr. Lawrence Wayne Monocytes/100 WBC (Bld) 9.3 % Normal 1.7-12.0 [facility] Comment on above: Performed By: #### C BC ####[facility] [address] [place], [place] [address]Dr. Lawrence Wayne NEUT # 4.6 103/ul Normal 1.4-6.5 [facility] Comment on above: Performed By: #### C BC ####[facility] [address] [place], [place] [address]Dr. Lawrence Wayne Neutrophils/100 WBC (Bld) 55.5 % Normal 43.0-75.0 [facility] Comment on above: Performed By: #### C BC ####[facility] [address] [place], [place] [address]Dr. Lawrence Wayne Platelet mean volume (Bld) [Entitic vol] 8.6 fL Critically low 9.5-13.5 [facility] Comment on above: Performed By: #### C BC ####[facility] [address] [place], [place] [address]Dr. Lawrence Wayne PLT 380 103/ul Normal 150-450 [facility] Comment on above: Performed By: #### C BC ####[facility] [address] [place] [address]Dr. Lawrence Wayne RBC 5.11 106/ul Normal 4.20-5.40 [facility] Comment on above: Performed By: #### C BC ####[facility] [address] [place] [address]Dr. Lawrence Wayne WBC 8.3 103/ul Normal 4.0-11.0 [facility] Comment on above: Performed By: #### C BC ####[facility] [address] [place] [address]Dr. Lawrence Wayne FREE THYROXINE INDEX T7on FTI 3.28 Normal 1.30-4.50 [facility] Comment on above: Performed By: #### T SH, T7, ALIYAH, LIPA, CMP ####[facility] [address] [place] [address]Dr. Lawrence Wayne T3U 36.0 % Normal 30.0-39.0 [facility] Comment on above: Performed By: #### T SH, T7, ALIYAH, LIPA, CMP ####[facility] [address] [place] [address]Dr. Lawrence Wayne T4 [Mass/Vol] 9.10 ug/dL Normal 4.80-13.90 [facility] Comment on above: Performed By: #### T SH, T7, ALIYAH, LIPA, CMP ####[facility] [address] [place] [address]Dr. Lawrence Wayne LIPASEon 07-01-2022 Lipase [Catalytic activity/Vol] 125.0 U/L Normal 73.0-393.0 [facility] Comment on above: Performed By: #### T SH, T7, ALIYAH, LIPA, CMP ####[facility] [address] [place], [place] [address]Dr. Lawrence Wayne PROF 14(COMP METB)on 023 Albumin [Mass/Vol] 3.8 g/dL Normal 3.4-5.0 [facility] Comment on above: Performed By: #### T SH, T7, ALIYAH, LIPA, CMP ####[facility] [address] [place] [address]Dr. Lawrence Wayne Albumin/Globulin [Mass ratio] 1.1 {ratio} Normal [facility] Comment on above: Performed By: #### T SH, T7, ALIYAH, LIPA, CMP ####[facility] [address] [place] [address]Dr. Lawrence Wayne ALP [Catalytic activity/Vol] 104 U/L Normal 46-116 [facility] Comment on above: Performed By: #### T SH, T7, ALIYAH, LIPA, CMP ####[facility] [address] [place], [place] [address]Dr. Lawrence Wayne ALT [Catalytic activity/Vol] 36 U/L Normal 14-59 [facility] Comment on above: Performed By: #### T SH, T7, ALIYAH, LIPA, CMP ####[facility] [address] [place], [place] [address]Dr. Lawrence Wayne Anion gap [Moles/Vol] 11.7 mmol/L Normal [facility] Comment on above: Performed By: #### T SH, T7, ALIYAH, LIPA, CMP ####[facility] [address] [place], [place] [address]Dr. Lawrence Wayne AST [Catalytic activity/Vol] 22 U/L Normal 15-37 [facility] Comment on above: Performed By: #### T SH, T7, ALIYAH, LIPA, CMP ####[facility] [address] [place] [address]Dr. Lawrence Wayne Bilirubin [Mass/Vol] 0.5 mg/dL Normal 0.2-1.0 [facility] Comment on above: Performed By: #### T SH, T7, ALIYAH, LIPA, CMP ####[facility] [address] [place], [place] [address]Dr. Lawrence Wayne Calcium [Mass/Vol] 9.8 mg/dL Normal 8.5-10.1 [facility] Comment on above: Performed By: #### T SH, T7, ALIYAH, LIPA, CMP ####[facility] [address] [place] [address]Dr. Lawrence Wayne Chloride [Moles/Vol] 102 mmol/L Normal 98-107 [facility] Comment on above: Performed By: #### T SH, T7, ALIYAH, LIPA, CMP ####[facility] [address] [place] [address]Dr. Lawrence Wayne CO2 [Moles/Vol] 29.3 mmol/L Normal 21.0-32.0 [facility] Comment on above: Performed By: #### T SH, T7, ALIYAH, LIPA, CMP ####[facility] [address] [place] [address]Dr. Lawrence Wayne Creatinine [Mass/Vol] 0.88 mg/dL Normal 0.55-1.02 [facility] Comment on above: Performed By: #### T SH, T7, ALIYAH, LIPA, CMP ####[facility] [address] [place], [place] [address]Dr. Lawrence Wayne EGFR-AF SURINAMESE >60 Normal >=60 [facility] Comment on above: Performed By: #### T SH, T7, ALIYAH, LIPA, CMP ####[facility] [address] [place], [place] [address]Dr. Lawrence Wayne EGFR-NON AF SURINAMESE >60 Normal >=60 [facility] Comment on above: Performed By: #### T SH, T7, ALIYAH, LIPA, CMP ####[facility] [address] [place] [address]Dr. Lawrence Wayne Globulin (S) [Mass/Vol] 3.5 g/dL Normal [facility] Comment on above: Performed By: #### T SH, T7, ALIYAH, LIPA, CMP ####[facility] [address] [place], [place] [address]Dr. Lawrence Wayne Glucose [Mass/Vol] 98 mg/dL Normal 74-106 [facility] Comment on above: Performed By: #### T SH, T7, ALIYAH, LIPA, CMP ####[facility] [address] [place] [address]Dr. Lawrence Wayne Potassium [Moles/Vol] 3.9 mmol/L Normal 3.5-5.1 [facility] Comment on above: Performed By: #### T SH, T7, ALIYAH, LIPA, CMP ####[facility] [address] [place] [address]Dr. Lawrence Wayne Protein [Mass/Vol] 7.3 g/dL Normal 6.4-8.2 [facility] Comment on above: Performed By: #### T SH, T7, ALIYAH, LIPA, CMP ####[facility] [address] [place] [address]Dr. Lawrence Wayne Sodium [Moles/Vol] 139 mmol/L Normal 136-145 [facility] Comment on above: Performed By: #### T SH, T7, ALIYAH, LIPA, CMP ####[facility] [address] [place] [address]Dr. Lawrence Wayne Urea nitrogen [Mass/Vol] 11.0 mg/dL Normal 7.0-18.0 [facility] Comment on above: Performed By: #### T SH, T7, ALIYAH, LIPA, CMP ####[facility] [address] [place] [address]Dr. Lawrence Wayne Urea nitrogen/Creatinine [Mass ratio] 12.5 mg/mg Normal [facility] Comment on above: Performed By: #### T SH, T7, ALIYAH, LIPA, CMP ####[facility] [address] [place] [address]Dr. Lawrence Wayne TSHon 07-01-2022 TSH 1.744 uIU/mL Normal 0.358-3.740 [facility] Comment on above: Performed By: #### T SH, T7, ALIYAH, LIPA, CMP ####[facility] [address] [place] [address]Dr. Lawrence Wayne CBC AUTO DIFFon 06-17-2022 BASO # 0.0 103/ul Normal 0.0-0.1 [facility] Comment on above: Performed By: #### A MY, CMP, LIPA #### [facility] [address] [place] [address] [address] Lawrence Wayne Basophils/100 WBC (Bld) 0.4 % Normal 0.2-2.0 [facility] Comment on above: Performed By: #### A MY, CMP, LIPA #### [facility] [address] [place] [address] Dr. Lawrence Wayne EO # 0.0 103/ul Normal 0.0-0.7 [facility] Comment on above: Performed By: #### A MY, CMP, LIPA #### [facility] [address] [place] [address] Dr. Lawrence Wayne Eosinophils/100 WBC (Bld) 0.8 % Critically low 0.9-7.0 [facility] Comment on above: Performed By: #### A MY, CMP, LIPA #### [facility] [address] [place] [address] Dr. Lawrence Wayne Erythrocyte distribution width (RBC) [Ratio] 13.2 % Normal 11.0-15.0 [facility] Comment on above: Performed By: #### A MY, CMP, LIPA #### [facility] [address] [place] [address] Dr. Lawrence Wayne Hematocrit (Bld) [Volume fraction] 43.1 % Normal 36.0-48.0 [facility] Comment on above: Performed By: #### A MY, CMP, LIPA #### [facility] [address] [place] [address] Dr. Lawrence Wayne Hemoglobin (Bld) [Mass/Vol] 15.1 g/dL Normal 12.0-16.0 [facility] Comment on above: Performed By: #### A MY, CMP, LIPA #### [facility] [address] [place] [address] Dr. Lawrence Wayne IG # 0.03 10e3/ul Normal 0.00-0.03 [facility] Comment on above: Performed By: #### A MY, CMP, LIPA #### [facility] [address] [place] [address] Dr. Lawrence Wayne IG % 0.6 % Critically high 0.0-0.5 [facility] Comment on above: Performed By: #### A MY, CMP, LIPA #### [facility] [address] [place] [address] Dr. Lawrence Wayne LYMPH # 1.1 103/ul Critically low 1.2-3.8 [facility] Comment on above: Performed By: #### A MY, CMP, LIPA #### [facility] [address] [place] [address] Dr. Lawrence Wayne Lymphocytes/100 WBC (Bld) 22.0 % Normal 20.5-60.0 [facility] Comment on above: Performed By: #### A MY, CMP, LIPA #### [facility] [address] [place] [address] Dr. Lawrence Wayne MANUAL DIFF REQ NO Normal [facility] Comment on above: Performed By: #### A MY, CMP, LIPA #### [facility] [address] [place] [address] Dr. Lawrence Wayne MCH (RBC) [Entitic mass] 30.3 pg Normal 26.7-34.0 [facility] Comment on above: Performed By: #### A MY, CMP, LIPA #### [facility] [address] [place] [address] Dr. Lawrence Wayne MCHC (RBC) [Mass/Vol] 35.0 g/dL Normal 29.9-35.2 [facility] Comment on above: Performed By: #### A MY, CMP, LIPA #### [facility] [address] [place] [address] Dr. Lawrence Wayne MCV (RBC) [Entitic vol] 86.4 fL Normal 81.0-99.0 [facility] Comment on above: Performed By: #### A MY, CMP, LIPA #### [facility] [address] [place] [address] Dr. Lawrence Wayne MONO # 0.7 103/ul Normal 0.3-0.8 [facility] Comment on above: Performed By: #### A MY, CMP, LIPA #### [facility] [address] [address] [address] Lawrence Wayne Monocytes/100 WBC (Bld) 13.6 % Critically high 1.7-12.0 [facility] Comment on above: Performed By: #### A MY, CMP, LIPA #### [facility] [address] [place] [address] Dr. Lawrence Wayne NEUT # 3.2 103/ul Normal 1.4-6.5 [facility] Comment on above: Performed By: #### A MY, CMP, LIPA #### [facility] [address] [place] [address] Dr. Lawrence Wayne Neutrophils/100 WBC (Bld) 62.6 % Normal 43.0-75.0 [facility] Comment on above: Performed By: #### A MY, CMP, LIPA #### [facility] [address] [place] [address] Dr. Lawrence Wayne Platelet mean volume (Bld) [Entitic vol] 9.0 fL Critically low 9.5-13.5 [facility] Comment on above: Performed By: #### A MY, CMP, LIPA #### [facility] [address] [place] [address] Dr. Lawrence Wayne PLT 257 103/ul Normal 150-450 [facility] Comment on above: Performed By: #### A MY, CMP, LIPA #### [facility] [address] [place] [address] Dr. Lawrence Wayne RBC 4.99 106/ul Normal 4.20-5.40 [facility] Comment on above: Performed By: #### A MY, CMP, LIPA #### [facility] [address] [place] [address] Dr. Lawrence Wayne WBC 5.1 103/ul Normal 4.0-11.0 [facility] Comment on above: Performed By: #### A MY, CMP, LIPA #### [facility] [address] [place] [address] Dr. Lawrence Wayne INFLUENZA A AND B AGon 06-17 [facility] BELOW Normal [facility] Comment on above: Result Comment: Nega tive for Flu B protein antigen. Infection due to Flu B cannot be ruled out. Flu B antigen in the sample may be below the detection limit of the test. Performed By: #### A MY, CMP, LIPA #### [facility] [address] [place] [address] Dr. Lawrence Wayne INFLUENZA A AG Positive Abnormal NEGATIVE SEE COMMENT [facility] Comment on above: Performed By: #### A MY, CMP, LIPA #### [facility] [address] [place] [address] Dr. Lawrence Wayne INFLUENZA B AG Negative Normal NEGATIVE SEE COMMENT [facility] Comment on above: Performed By: #### A MY, CMP, LIPA #### [facility] [address] [place] [address] Dr. Lawrence Wayne PROF 14(COMP METB)on 023 Albumin [Mass/Vol] 3.4 g/dL Normal 3.4-5.0 [facility] Comment on above: Performed By: #### A MY, CMP, LIPA #### [facility] [address] [place] [address] Dr. Lawrence Wayne Albumin/Globulin [Mass ratio] 0.9 {ratio} Normal [facility] Comment on above: Performed By: #### A MY, CMP, LIPA #### [facility] [address] [place] [address] Dr. Lawrence Wayne ALP [Catalytic activity/Vol] 94 U/L Normal 46-116 [facility] Comment on above: Performed By: #### A MY, CMP, LIPA #### [facility] [address] [place] [address] Dr. Lawrence Wayne ALT [Catalytic activity/Vol] 36 U/L Normal 14-59 [facility] Comment on above: Performed By: #### A MY, CMP, LIPA #### [facility] [address] [place] [address] Dr. Lawrence Wayne Anion gap [Moles/Vol] 18.9 mmol/L Normal [facility] Comment on above: Performed By: #### A MY, CMP, LIPA #### [facility] [address] [address] [address] Lawrence Wayne AST [Catalytic activity/Vol] 32 U/L Normal 15-37 [facility] Comment on above: Performed By: #### A MY, CMP, LIPA #### [facility] [address] [address] [address] Lawrence Wayne Bilirubin [Mass/Vol] 0.4 mg/dL Normal 0.2-1.0 [facility] Comment on above: Performed By: #### A MY, CMP, LIPA #### [facility] [address] [address] [address] Lawrence Wayne Calcium [Mass/Vol] 9.1 mg/dL Normal 8.5-10.1 [facility] Comment on above: Performed By: #### A MY, CMP, LIPA #### [facility] [address] [address] [address] Lawrence Wayne Chloride [Moles/Vol] 100 mmol/L Normal 98-107 [facility] Comment on above: Performed By: #### A MY, CMP, LIPA #### [facility] [address] [address] [address] Lawrence Wayne CO2 [Moles/Vol] 19.7 mmol/L Critically low 21.0-32.0 [facility] Comment on above: Performed By: #### A MY, CMP, LIPA #### [facility] [address] [address] [address] Lawrence Wayne Creatinine [Mass/Vol] 1.13 mg/dL Critically high 0.55-1.02 [facility] Comment on above: Performed By: #### A MY, CMP, LIPA #### [facility] [address] [address] [address] Lawrence Wayne EGFR-AF SURINAMESE 58 mL/min/1.73m2 Critically low >=60 [facility] Comment on above: Performed By: #### A MY, CMP, LIPA #### [facility] [address] [address] [address] Lawrence Wayne EGFR-NON AF SURINAMESE 48 mL/min/1.73m2 Critically low >=60 [facility] Comment on above: Performed By: #### A MY, CMP, LIPA #### [facility] [address] [address] [address] Lawrence Wayne Globulin (S) [Mass/Vol] 3.9 g/dL Normal [facility] Comment on above: Performed By: #### A MY, CMP, LIPA #### [facility] [address] [address] [address] Lawrence Wayne Glucose [Mass/Vol] 105 mg/dL Normal 74-106 [facility] Comment on above: Performed By: #### A MY, CMP, LIPA #### [facility] [address] [place] [address] Dr. Lawrence Wayne Potassium [Moles/Vol] 3.6 mmol/L Normal 3.5-5.1 [facility] Comment on above: Performed By: #### A MY, CMP, LIPA #### [facility] [address] [place] [address] Dr. Lawrence Wayne Protein [Mass/Vol] 7.3 g/dL Normal 6.4-8.2 [facility] Comment on above: Performed By: #### A MY, CMP, LIPA #### [facility] [address] [place] [address] Dr. Lawrence Wayne Sodium [Moles/Vol] 135 mmol/L Critically low 136-[address] [facility] Comment on above: Performed By: #### A MY, CMP, LIPA #### [facility] [address] [place] [address] Dr. Lawrence Wayne Urea nitrogen [Mass/Vol] 13.0 mg/dL Normal 7.0-18.0 [facility] Comment on above: Performed By: #### A MY, CMP, LIPA #### [facility] [address] [place] [address] Dr. Lawrence Wayne Urea nitrogen/Creatinine [Mass ratio] 11.5 mg/mg Normal [facility] Comment on above: Performed By: #### A MY, CMP, LIPA #### [facility] [address] [address] [address] Lawrence Wayne MRI CSPINE WO CONon [...] TYRELL MOREJON Date: 2022-05-20 10:26 Normal [facility] AMYLASEon 05-07-2022 Amylase [Catalytic activity/Vol] 81 U/L Normal 25-115 [facility] Comment on above: Performed By: #### A MY, CMP, LIPA #### [facility] [address] [address] [address] Lawrence Wayne CBC AUTO DIFFon 05-07-2022 BASO # 0.0 103/ul Normal 0.0-0.1 [facility] Comment on above: Performed By: #### A MY, CMP, LIPA #### [facility] [address] [address] [address] Lawrence Wayne Basophils/100 WBC (Bld) 0.8 % Normal 0.2-2.0 [facility] Comment on above: Performed By: #### A MY, CMP, LIPA #### [facility] [address] [address] [address] Lawrence Wayne EO # 0.1 103/ul Normal 0.0-0.7 [facility] Comment on above: Performed By: #### A MY, CMP, LIPA #### [facility] [address] [place] [address] Dr. Lawrence Wayne Eosinophils/100 WBC (Bld) 1.5 % Normal 0.9-7.0 [facility] Comment on above: Performed By: #### A MY, CMP, LIPA #### [facility] [address] [place] [address] Dr. Lawrence Wayne Erythrocyte distribution width (RBC) [Ratio] 12.7 % Normal 11.0-15.0 [facility] Comment on above: Performed By: #### A MY, CMP, LIPA #### [facility] [address] [place] [address] Dr. Lawrence Wayne Hematocrit (Bld) [Volume fraction] 40.5 % Normal 36.0-48.0 [facility] Comment on above: Performed By: #### A MY, CMP, LIPA #### [facility] [address] [place] [address] Dr. Lawrence Wayne Hemoglobin (Bld) [Mass/Vol] 13.8 g/dL Normal 12.0-16.0 [facility] Comment on above: Performed By: #### A MY, CMP, LIPA #### [facility] [address] [place] [address] Dr. Lawrence Wayne IG # 0.01 10e3/ul Normal 0.00-0.03 [facility] Comment on above: Performed By: #### A MY, CMP, LIPA #### [facility] [address] [place] [address] Dr. Lawrence Wayne IG % 0.2 % Normal 0.0-0.5 [facility] Comment on above: Performed By: #### A MY, CMP, LIPA #### [facility] [address] [place] [address] Dr. Lawrence Wayne LYMPH # 1.7 103/ul Normal 1.2-3.8 [facility] Comment on above: Performed By: #### A MY, CMP, LIPA #### [facility] [address] [place] [address] Dr. Lawrence Wayne Lymphocytes/100 WBC (Bld) 32.7 % Normal 20.5-60.0 [facility] Comment on above: Performed By: #### A MY, CMP, LIPA #### [facility] [address] [place] [address] Dr. Lawrence Wyane MANUAL DIFF REQ NO Normal [facility] Comment on above: Performed By: #### A MY, CMP, LIPA #### [facility] [address] [place] [address] Dr. Lawrence Wayne MCH (RBC) [Entitic mass] 30.5 pg Normal 26.7-34.0 [facility] Comment on above: Performed By: #### A MY, CMP, LIPA #### [facility] [address] [place] [address] Dr. Lawrence Wayne MCHC (RBC) [Mass/Vol] 34.1 g/dL Normal 29.9-35.2 [facility] Comment on above: Performed By: #### A MY, CMP, LIPA #### [facility] [address] [place] [address] Dr. Lawrence Wayne MCV (RBC) [Entitic vol] 89.4 fL Normal 81.0-99.0 [facility] Comment on above: Performed By: #### A MY, CMP, LIPA #### [facility] [address] [place] [address] Dr. Lawrence Wayne MONO # 0.6 103/ul Normal 0.3-0.8 [facility] Comment on above: Performed By: #### A MY, CMP, LIPA #### [facility] [address] [place] [address] Dr. Lawrence Wayne Monocytes/100 WBC (Bld) 10.5 % Normal 1.7-12.0 [facility] Comment on above: Performed By: #### A MY, CMP, LIPA #### [facility] [address] [place] [address] Dr. Lawrence Wayne NEUT # 2.9 103/ul Normal 1.4-6.5 [facility] Comment on above: Performed By: #### A MY, CMP, LIPA #### [facility] [address] [place] [address] Dr. Lawrence Wayne Neutrophils/100 WBC (Bld) 54.3 % Normal 43.0-75.0 [facility] Comment on above: Performed By: #### A MY, CMP, LIPA #### [facility] [address] [place] [address] Dr. Lawrence Wayne Platelet mean volume (Bld) [Entitic vol] 9.4 fL Critically low 9.5-13.5 [facility] Comment on above: Performed By: #### A MY, CMP, LIPA #### [facility] [address] [place] [address] Dr. Lawrence Wayne PLT 292 103/ul Normal 150-450 [facility] Comment on above: Performed By: #### A MY, CMP, LIPA #### [facility] [address] [place] [address] Dr. Lawrence Wayne RBC 4.53 106/ul Normal 4.20-5.40 [facility] Comment on above: Performed By: #### A MY, CMP, LIPA #### [facility] [address] [place] [address] Dr. Lawrence Wayne WBC 5.3 103/ul Normal 4.0-11.0 [facility] Comment on above: Performed By: #### A MY, CMP, LIPA #### [facility] [address] [place] [address] Dr. Lawrence Wayne LIPASEon 05-07-2022 Lipase [Catalytic activity/Vol] 86.0 U/L Normal 73.0-393.0 [facility] Comment on above: Performed By: #### A MY, CMP, LIPA #### [facility] [address] [address] [address] Lawrence Wayne PROF 14(COMP METB)on 022 Albumin [Mass/Vol] 3.7 g/dL Normal 3.4-5.0 [facility] Comment on above: Performed By: #### A MY, CMP, LIPA #### [facility] [address] [address] [address] Lawrence Wayne Albumin/Globulin [Mass ratio] 1.1 {ratio} Normal [facility] Comment on above: Performed By: #### A MY, CMP, LIPA #### [facility] [address] [place] [address] Dr. Lawrence Wayne ALP [Catalytic activity/Vol] 96 U/L Normal 46-116 [facility] Comment on above: Performed By: #### A MY, CMP, LIPA #### [facility] [address] [address] [address] Lawrence Wayne ALT [Catalytic activity/Vol] 24 U/L Normal 14-59 [facility] Comment on above: Performed By: #### A MY, CMP, LIPA #### [facility] [address] [place] [address] Dr. Lawrence Wayne Anion gap [Moles/Vol] 8.3 mmol/L Normal [facility] Comment on above: Performed By: #### A MY, CMP, LIPA #### [facility] [address] [address] [address] Lawrence Wayne AST [Catalytic activity/Vol] 19 U/L Normal 15-37 [facility] Comment on above: Performed By: #### A MY, CMP, LIPA #### [facility] [address] [place] [address] Dr. Lawrence Wayne Bilirubin [Mass/Vol] 0.2 mg/dL Normal 0.2-1.0 [facility] Comment on above: Performed By: #### A MY, CMP, LIPA #### [facility] [address] [place] [address] Dr. Lawrence Wayne Calcium [Mass/Vol] 9.1 mg/dL Normal 8.5-10.1 [facility] Comment on above: Performed By: #### A MY, CMP, LIPA #### [facility] [address] [address] [address] Lawrence Wayne Chloride [Moles/Vol] 103 mmol/L Normal 98-107 [facility] Comment on above: Performed By: #### A MY, CMP, LIPA #### [facility] [address] [address] [address] Lawrence Wayne CO2 [Moles/Vol] 30.6 mmol/L Normal 21.0-32.0 [facility] Comment on above: Performed By: #### A MY, CMP, LIPA #### [facility] [address] [address] [address] Lawrence Wayne Creatinine [Mass/Vol] 0.88 mg/dL Normal 0.55-1.02 [facility] Comment on above: Performed By: #### A MY, CMP, LIPA #### [facility] [address] [address] [address] Lawrence Wayne EGFR-AF SURINAMESE >60 Normal >=60 [facility] Comment on above: Performed By: #### A MY, CMP, LIPA #### [facility] [address] [address] [address] Lawrence Wayne EGFR-NON AF SURINAMESE >60 Normal >=60 [facility] Comment on above: Performed By: #### A MY, CMP, LIPA #### [facility] [address] [address] [address] Lawrence Wayne Globulin (S) [Mass/Vol] 3.4 g/dL Normal [facility] Comment on above: Performed By: #### A MY, CMP, LIPA #### [facility] [address] [address] [address] Lawrence Wayne Glucose [Mass/Vol] 94 mg/dL Normal 74-106 [facility] Comment on above: Performed By: #### A MY, CMP, LIPA #### [facility] [address] [address] [address] Lawrence Wayne Potassium [Moles/Vol] 3.9 mmol/L Normal 3.5-5.1 [facility] Comment on above: Performed By: #### A MY, CMP, LIPA #### [facility] [address] [address] [address] Lawrence Wayne Protein [Mass/Vol] 7.1 g/dL Normal 6.4-8.2 [facility] Comment on above: Performed By: #### A MY, CMP, LIPA #### [facility] [address] [address] [address] Lawrence Wayne Sodium [Moles/Vol] 138 mmol/L Normal 136-145 [facility] Comment on above: Performed By: #### A MY, CMP, LIPA #### [facility] [address] [address] [address] Lawrence Wayne Urea nitrogen [Mass/Vol] 10.0 mg/dL Normal 7.0-18.0 [facility] Comment on above: Performed By: #### A MY, CMP, LIPA #### [facility] [address] [address] [address] Lawrence Wayne Urea nitrogen/Creatinine [Mass ratio] 11.4 mg/mg Normal [facility] Comment on above: Performed By: #### A MY, CMP, LIPA #### [facility] [address] [address] [address] Lawrence Wayne MG MAMM SCREEN 3D QING CADon 03-26-2022 MG MAMM SCREEN 3D QING CAD Patient: SKIP HONG Exam Date: 03/26/2022 : 1955 Gender:F Ordering : DR RADHA LYMAN . Admission #: [id number] Family : Order #: [id number] CLICK HERE TO VIEW EXAM RADIOLOGY REPORT [...] breast cancer at age 30. LOCATION: [facility] BREAST COMPOSITION: Heterogeneously dense,which may [...] MD on 03/26/2022 at 09:53 Normal [facility] NM STRESS/REST MULTIon 03-24 NM STRESS/REST MULTI Patient: MANISHA HONG Exam Date: 03/24/2022 : 1955 Gender:F Ordering : DR ANITHA MCGREGOR . Admission #: [id number] Family : Order #: [id number] CLICK HERE TO VIEW EXAM RADIOLOGY REPORT [...] MD on 03/25/2022 at 07:15 Normal [facility] T4, T3U, FTI LABCORPon 02-19 Free Thyroxine Index 2.3 Normal 1.2-4.9 [facility] Comment on above: Performed By: #### A MY, CMP, LIPA #### [facility] [address] [place] [address] Dr. aLwrence Wayne T3 Uptake 28 % Normal 24-39 [facility] Comment on above: Performed By: #### A MY, CMP, LIPA #### [facility] [address] [place] [address] Dr. Lawrence Wayne T4 [Mass/Vol] 8.3 ug/dL Normal 4.5-12.0 [facility] Comment on above: Performed By: #### A MY, CMP, LIPA #### [facility] [address] [place] [address] Dr. Lawrence Wayne BNPon 02-18-2022 Natriuretic peptide B (Bld) [Mass/Vol] 78.0 pg/mL Normal <=900.0 [facility] Comment on above: Performed By: #### A MY, CMP, LIPA #### [facility] [address] [place] [address] Dr. Lawrence Wayne CBC AUTO DIFFon 02-18-2022 BASO # 0.1 103/ul Normal 0.0-0.1 [facility] Comment on above: Performed By: #### C BC ####[facility] [address] [address]Dr. Lawrence Wayne Basophils/100 WBC (Bld) 0.9 % Normal 0.2-2.0 [facility] Comment on above: Performed By: #### C BC ####[facility] [address] [address]Dr. Lawrence Wayne EO # 0.1 103/ul Normal 0.0-0.7 [facility] Comment on above: Performed By: #### C BC ####[facility] [address] [place], [place] [address]Dr. Lawrence Wayne Eosinophils/100 WBC (Bld) 1.1 % Normal 0.9-7.0 [facility] Comment on above: Performed By: #### C BC ####[facility] [address] [place], [place] [address]Dr. Lawrence Wayne Erythrocyte distribution width (RBC) [Ratio] 12.6 % Normal 11.0-15.0 [facility] Comment on above: Performed By: #### C BC ####[facility] [address] [place], [place] [address]Dr. Lawrence Wayne Hematocrit (Bld) [Volume fraction] 44.4 % Normal 36.0-48.0 [facility] Comment on above: Performed By: #### C BC ####[facility] [address] [place], [place] [address]Dr. Lawrence Wayne Hemoglobin (Bld) [Mass/Vol] 14.7 g/dL Normal 12.0-16.0 [facility] Comment on above: Performed By: #### C BC ####[facility] [address] [place], [place] [address]Dr. Lawrence Wayne IG # 0.02 10e3/ul Normal 0.00-0.03 [facility] Comment on above: Performed By: #### C BC ####[facility] [address] [place], [place] [address]Dr. Lawrence Wayne IG % 0.3 % Normal 0.0-0.5 [facility] Comment on above: Performed By: #### C BC ####[facility] [address] [place], [place] [address]Dr. Lawrence Wayne LYMPH # 1.8 103/ul Normal 1.2-3.8 [facility] Comment on above: Performed By: #### C BC ####[facility] [address] [address]Dr. Lawrence Tone Lymphocytes/100 WBC (Bld) 26.1 % Normal 20.5-60.0 [facility] Comment on above: Performed By: #### C BC ####[facility] [address] [address]Dr. Laraantonio Wayne MANUAL DIFF REQ NO Normal [facility] Comment on above: Performed By: #### C BC ####[facility] [address] [address]Dr. Lawrence Tone MCH (RBC) [Entitic mass] 30.2 pg Normal 26.7-34.0 [facility] Comment on above: Performed By: #### C BC ####[facility] [address] [place], [place] [address]Dr. Lawrence Tone MCHC (RBC) [Mass/Vol] 33.1 g/dL Normal 29.9-35.2 [facility] Comment on above: Performed By: #### C BC ####[facility] [address] [place], [place] [address]Dr. Laraantonio Wayne MCV (RBC) [Entitic vol] 91.4 fL Normal 81.0-99.0 [facility] Comment on above: Performed By: #### C BC ####[facility] [address] [place], [place] [address]Dr. Lawrence Wayne MONO # 0.8 103/ul Normal 0.3-0.8 [facility] Comment on above: Performed By: #### C BC ####[facility] Ll[address] [place], [place] [address]Dr. Lawrence Wayne Monocytes/100 WBC (Bld) 11.0 % Normal 1.7-12.0 [facility] Comment on above: Performed By: #### C BC ####[facility] C[address] [place], [place] [address]Dr. Lawrence Wayne NEUT # 4.2 103/ul Normal 1.4-6.5 [facility] Comment on above: Performed By: #### C BC ####[facility] [address] [place], [place] [id number]. Lawrence Wayne Neutrophils/100 WBC (Bld) 60.6 % Normal 43.0-75.0 [facility] Comment on above: Performed By: #### C BC ####[facility] [address] [address]Dr. Lawrence Wayne Platelet mean volume (Bld) [Entitic vol] 9.2 fL Critically low 9.5-13.5 [facility] Comment on above: Performed By: #### C BC ####[facility] [address] [address]Dr. Lawrence Wayne PLT 322 103/ul Normal 150-450 [facility] Comment on above: Performed By: #### C BC ####[facility] [address] [address]Dr. Lawrence Wayne RBC 4.86 106/ul Normal 4.20-5.40 [facility] Comment on above: Performed By: #### C BC ####[facility] [address] [address]Dr. Lawrence Wayne WBC 7.0 103/ul Normal 4.0-11.0 [facility] Comment on above: Performed By: #### C BC ####[facility] [address] [address]DrKim Wayne IRONon 02-18-2022 Iron [Mass/Vol] 89.0 ug/dL Normal 50.0-170.0 [facility] Comment on above: Performed By: #### A MY, CMP, LIPA #### [facility] [address] [place] [address] Dr. Lawrence Wayne PROF 14(COMP METB)on 022 Albumin [Mass/Vol] 4.0 g/dL Normal 3.4-5.0 [facility] Comment on above: Performed By: #### A MY, CMP, LIPA #### [facility] [address] [place] [address] Dr. Lawrence Wayne Albumin/Globulin [Mass ratio] 1.1 {ratio} Normal [facility] Comment on above: Performed By: #### A MY, CMP, LIPA #### [facility] [address] [address] [address] Lawrence Wayne ALP [Catalytic activity/Vol] 98 U/L Normal 46-116 [facility] Comment on above: Performed By: #### A MY, CMP, LIPA #### [facility] [address] [address] [address] Lawrence Wayne ALT [Catalytic activity/Vol] 23 U/L Normal 14-59 [facility] Comment on above: Performed By: #### A MY, CMP, LIPA #### [facility] [address] [address] [address] Lawrence Wayne Anion gap [Moles/Vol] 4.9 mmol/L Normal [facility] Comment on above: Performed By: #### A MY, CMP, LIPA #### [facility] [address] [address] [address] Lawrence Wayne AST [Catalytic activity/Vol] 19 U/L Normal 15-37 [facility] Comment on above: Performed By: #### A MY, CMP, LIPA #### [facility] [address] [address] [address] Lawrence Wayne Bilirubin [Mass/Vol] 0.4 mg/dL Normal 0.2-1.0 [facility] Comment on above: Performed By: #### A MY, CMP, LIPA #### [facility] [address] [address] [address] Lawrence Wayne Calcium [Mass/Vol] 9.5 mg/dL Normal 8.5-10.1 [facility] Comment on above: Performed By: #### A MY, CMP, LIPA #### [facility] [address] [address] [address] Lawrence Wayne Chloride [Moles/Vol] 102 mmol/L Normal 98-107 [facility] Comment on above: Performed By: #### A MY, CMP, LIPA #### [facility] [address] [address] [address] Lawrence Wayne CO2 [Moles/Vol] 30.1 mmol/L Normal 21.0-32.0 [facility] Comment on above: Performed By: #### A MY, CMP, LIPA #### [facility] [address] [address] [address] Lawrence Wayne Creatinine [Mass/Vol] 0.99 mg/dL Normal 0.55-1.02 [facility] Comment on above: Performed By: #### A MY, CMP, LIPA #### [facility] [address] [address] [address] Lawrence Wayne EGFR-AF SURINAMESE >60 Normal >=60 [facility] Comment on above: Performed By: #### A MY, CMP, LIPA #### [facility] [address] [place] [address] Dr. Lawrence Wayne EGFR-NON AF SURINAMESE 56 mL/min/1.73m2 Critically low >=60 [facility] Comment on above: Performed By: #### A MY, CMP, LIPA #### [facility] [address] [place] [address] Dr. Lawrence Wayne Globulin (S) [Mass/Vol] 3.5 g/dL Normal [facility] Comment on above: Performed By: #### A MY, CMP, LIPA #### [facility] [address] [place] [address] Dr. Lawrence Wayne Glucose [Mass/Vol] 100 mg/dL Normal 74-106 [facility] Comment on above: Performed By: #### A MY, CMP, LIPA #### [facility] [address] [address] [address] Lawrence Wayne Potassium [Moles/Vol] 4.0 mmol/L Normal 3.5-5.1 [facility] Comment on above: Performed By: #### A MY, CMP, LIPA #### [facility] [address] [place] [address] Dr. Lawrence Wayne Protein [Mass/Vol] 7.5 g/dL Normal 6.4-8.2 [facility] Comment on above: Performed By: #### A MY, CMP, LIPA #### [facility] [address] [address] [address] Lawrence Wayne Sodium [Moles/Vol] 133 mmol/L Critically low 136-145 [facility] Comment on above: Performed By: #### A MY, CMP, LIPA #### [facility] [address] [address] [address] Lawrence Wayne Urea nitrogen [Mass/Vol] 14.0 mg/dL Normal 7.0-18.0 [facility] Comment on above: Performed By: #### A MY, CMP, LIPA #### [facility] [address] [address] [address] Lawrence Wayne Urea nitrogen/Creatinine [Mass ratio] 14.1 mg/mg Normal [facility] Comment on above: Performed By: #### A MY, CMP, LIPA #### [facility] [address] [place] [address] Dr. Lawrence Wayne TSHon 02-18-2022 TSH 1.273 uIU/mL Normal 0.358-3.740 [facility] Comment on above: Performed By: #### A MY, CMP, LIPA #### [facility] [address] [address] [address] Lawrence Wayne AMMONIAon 02-07-2022 Ammonia (P) [Mass/Vol] ug/dL Critically low 11-32 [facility] Comment on above: Performed By: #### A MM ####[facility] [address] [address]Dr. Lawrence Wayne AMYLASEon 02-07-2022 Amylase [Catalytic activity/Vol] 88 U/L Normal 25-115 [facility] Comment on above: Performed By: #### A MY, CMP, LIPA #### [facility] [address] [place] [address] Dr. aLwrence Wayne BNPon 02-07-2022 Natriuretic peptide B (Bld) [Mass/Vol] 236.0 pg/mL Normal <=900.0 [facility] Comment on above: Performed By: #### A MY, CMP, LIPA #### [facility] [address] [place] [address] Dr. Lawrence Wayne CBC AUTO DIFFon 02-07-2022 BASO # 0.0 103/ul Normal 0.0-0.1 [facility] Comment on above: Performed By: #### C BC ####[facility] [address] [address]DrKim Wayne Basophils/100 WBC (Bld) 0.7 % Normal 0.2-2.0 [facility] Comment on above: Performed By: #### C BC ####[facility] [address] [place], [place] [address]DrKim Wayne EO # 0.1 103/ul Normal 0.0-0.7 [facility] Comment on above: Performed By: #### C BC ####[facility] [address] [place], [place] [address]DrKim Wayne Eosinophils/100 WBC (Bld) 1.3 % Normal 0.9-7.0 [facility] Comment on above: Performed By: #### C BC ####[facility] [address] [place], [place] [address]DrKim Wayne Erythrocyte distribution width (RBC) [Ratio] 12.7 % Normal 11.0-15.0 [facility] Comment on above: Performed By: #### C BC ####[facility] [address] [place], [place] [address]DrKim Wayne Hematocrit (Bld) [Volume fraction] 38.7 % Normal 36.0-48.0 [facility] Comment on above: Performed By: #### C BC ####[facility] [address] [place], [place] [address]DrKim Wyane Hemoglobin (Bld) [Mass/Vol] 12.4 g/dL Normal 12.0-16.0 [facility] Comment on above: Result Comment: RECE IVING BOLUS AND SALINE Performed By: #### C BC ####[facility] [address] [place], [place] [address]DrKim Wayne IG # 0.01 10e3/ul Normal 0.00-0.03 [facility] Comment on above: Performed By: #### C BC ####[facility] [address] [address]Dr. Lawrence Wayne IG % 0.2 % Normal 0.0-0.5 [facility] Comment on above: Performed By: #### C BC ####[facility] [address] [address]Dr. Lawrence Wayne LYMPH # 1.9 103/ul Normal 1.2-3.8 [facility] Comment on above: Performed By: #### C BC ####[facility] [address] [address]Dr. Lawrence Wayne Lymphocytes/100 WBC (Bld) 35.0 % Normal 20.5-60.0 [facility] Comment on above: Performed By: #### C BC ####[facility] [address] [place] [address]Dr. Lawrence Wayne MANUAL DIFF REQ NO Normal [facility] Comment on above: Performed By: #### C BC ####[facility] [address] [address]Dr. Lawrence Wayne MCH (RBC) [Entitic mass] 30.2 pg Normal 26.7-34.0 [facility] Comment on above: Performed By: #### C BC ####[facility] [address] [place] [address]Dr. Lawrence Wayne MCHC (RBC) [Mass/Vol] 32.0 g/dL Normal 29.9-35.2 [facility] Comment on above: Performed By: #### C BC ####[facility] [address] [place] [address]Dr. Lawrence Wayne MCV (RBC) [Entitic vol] 94.2 fL Normal 81.0-99.0 [facility] Comment on above: Performed By: #### C BC ####[facility] [address] [place] [address]Dr. Lawrence Tone MONO # 0.6 103/ul Normal 0.3-0.8 [facility] Comment on above: Performed By: #### C BC ####[facility] [address] [place] [address]Dr. Lawrence Wayne Monocytes/100 WBC (Bld) 10.7 % Normal 1.7-12.0 [facility] Comment on above: Performed By: #### C BC ####[facility] [address] [address]Dr. Lawrence Wayne NEUT # 2.9 103/ul Normal 1.4-6.5 [facility] Comment on above: Performed By: #### C BC ####[facility] [address] [address]Dr. Lawrence Wayne Neutrophils/100 WBC (Bld) 52.1 % Normal 43.0-75.0 [facility] Comment on above: Performed By: #### C BC ####[facility] [address] [address]Dr. Lawrence Wayne Platelet mean volume (Bld) [Entitic vol] 9.5 fL Normal 9.5-13.5 [facility] Comment on above: Performed By: #### C BC ####[facility] [address] [place] [address]Dr. Lawrence Tone PLT 260 103/ul Normal 150-450 [facility] Comment on above: Performed By: #### C BC ####[facility] [address] [address]Dr. Laraantonio Wayne RBC 4.11 106/ul Critically low 4.20-5.40 [facility] Comment on above: Performed By: #### C BC ####[facility] [address] [place] [address]Dr. Lawrence Wayne WBC 5.5 103/ul Normal 4.0-11.0 [facility] Comment on above: Performed By: #### C BC ####[facility] [address] [address]Dr. Lawrence Wayne PROF 14(COMP METB)on 022 Albumin [Mass/Vol] 3.0 g/dL Critically low 3.4-5.0 [facility] Comment on above: Performed By: #### A MY, CMP, LIPA #### [facility] [address] [address] [address] Lawrence Wayne Albumin/Globulin [Mass ratio] 1.1 {ratio} Normal [facility] Comment on above: Performed By: #### A MY, CMP, LIPA #### [facility] [address] [address] [address] Lawrence Wayne ALP [Catalytic activity/Vol] 77 U/L Normal 46-116 [facility] Comment on above: Performed By: #### A MY, CMP, LIPA #### [facility] [address] [address] [address] Lawrence Wayne ALT [Catalytic activity/Vol] 21 U/L Normal 14-59 [facility] Comment on above: Performed By: #### A MY, CMP, LIPA #### [facility] [address] [address] [address] Lawrence Wayne Anion gap [Moles/Vol] 10.9 mmol/L Normal [facility] Comment on above: Performed By: #### A MY, CMP, LIPA #### [facility] [address] [address] [address] Lawrence Wayne AST [Catalytic activity/Vol] 15 U/L Normal 15-37 [facility] Comment on above: Performed By: #### A MY, CMP, LIPA #### [facility] [address] [address] [address] Lawrence Wayne Bilirubin [Mass/Vol] 0.3 mg/dL Normal 0.2-1.0 [facility] Comment on above: Performed By: #### A MY, CMP, LIPA #### [facility] [address] [address] [address] Lawrence Wayne Calcium [Mass/Vol] 8.4 mg/dL Critically low 8.5-10.1 [facility] Comment on above: Performed By: #### A MY, CMP, LIPA #### [facility] [address] [address] [address] Lawrence Wayne Chloride [Moles/Vol] 110 mmol/L Critically high 98-107 [facility] Comment on above: Performed By: #### A MY, CMP, LIPA #### [facility] [address] [address] [address] Lawrence Wayne CO2 [Moles/Vol] 25.0 mmol/L Normal 21.0-32.0 [facility] Comment on above: Performed By: #### A MY, CMP, LIPA #### [facility] [address] [address] [address] Lawrence Wayne Creatinine [Mass/Vol] 0.87 mg/dL Normal 0.55-1.02 [facility] Comment on above: Performed By: #### A MY, CMP, LIPA #### [facility] [address] [place] [address] Dr. Lawrence Wayne EGFR-AF SURINAMESE >60 Normal >=60 [facility] Comment on above: Performed By: #### A MY, CMP, LIPA #### [facility] [address] [address] [address] Lawrence Wayne EGFR-NON AF SURINAMESE >60 Normal >=60 [facility] Comment on above: Performed By: #### A MY, CMP, LIPA #### [facility] [address] [place] [address] Dr. Lawrence Wayne Globulin (S) [Mass/Vol] 2.8 g/dL Normal [facility] Comment on above: Performed By: #### A MY, CMP, LIPA #### [facility] [address] [address] [address] Lawrence Wayne Glucose [Mass/Vol] 96 mg/dL Normal 74-106 [facility] Comment on above: Performed By: #### A MY, CMP, LIPA #### [facility] [address] [place] [address] Dr. Lawrence Wayne Potassium [Moles/Vol] 3.9 mmol/L Normal 3.5-5.1 [facility] Comment on above: Performed By: #### A MY, CMP, LIPA #### [facility] [address] [place] [address] Dr. Lawrence Wayne Protein [Mass/Vol] 5.8 g/dL Critically low 6.4-8.2 [facility] Comment on above: Performed By: #### A MY, CMP, LIPA #### [facility] [address] [address] [address] Lawrence Wayne Sodium [Moles/Vol] 142 mmol/L Normal 136-145 [facility] Comment on above: Performed By: #### A MY, CMP, LIPA #### [facility] [address] [address] [address] Lawrence Wayne Urea nitrogen [Mass/Vol] 11.0 mg/dL Normal 7.0-18.0 [facility] Comment on above: Performed By: #### A MY, CMP, LIPA #### [facility] [address] [address] [address] Lawrence Wayne Urea nitrogen/Creatinine [Mass ratio] 12.6 mg/mg Normal [facility] Comment on above: Performed By: #### A MY, CMP, LIPA #### [facility] [address] [address] [address] Lawrence Wayne AMMONIAon 02-06-2022 Ammonia (P) [Moles/Vol] 44 umol/L Critically high 11-32 [facility] Comment on above: Performed By: #### A MY, CMP, LIPA #### [facility] [address] [address] [address] Lawrence Wayne AMYLASEon 02-06-2022 Amylase [Catalytic activity/Vol] 89 U/L Normal 25-115 [facility] Comment on above: Performed By: #### M G, CMP, CMADM, BNP, ALIYAH, LIPA #### [facility] [address] [address] [address] Lawrence Wayne BNPon 02-06-2022 Natriuretic peptide B (Bld) [Mass/Vol] 103.0 pg/mL Normal <=900.0 [facility] Comment on above: Performed By: #### M G, CMP, CMADM, BNP, ALIYAH, LIPA ####[facility] [address] [address]Dr. Lawrence Wayne CARDIAC ORAL ADMITon 022 CK [Catalytic activity/Vol] 65 U/L Normal 26-192 [facility] Comment on above: Performed By: #### M G, CMP, CMADM, BNP, ALIYAH, LIPA #### [facility] [address] [address] [address] Lawrence Wayne CK.MB [Mass/Vol] 1.16 ng/mL Normal <=3.60 [facility] Comment on above: Performed By: #### M G, CMP, CMADM, BNP, ALIYAH, LIPA #### [facility] [address] [address] [address] Lawrence Wayne HSTROP <4.0 Normal 4.0-51.3 [facility] Comment on above: Result Comment: CUT- OFF POINTS HAVE BEEN ESTABLISHED BASED ON THE FOURTH UNIVERSAL DEFINITIONS OF MYOCARDIAL INFARCTION. THE UPPER REFERENCE LIMIT (URL) OF TROPONIN, DEFINED THE 99TH PERCENTILE OF cTnI DISTRIBUTION IN A REFERENCE POPULATION, HAS BEEN CONFIRMED THE DECISION THRESHOLD FOR RI DIAGNOSIS. Performed By: #### M G, CMP, CMADM, BNP, ALIYAH, LIPA #### [facility] [address] [address] [address] Lawrence Wayne GEORGI 47 ng/mL Normal 9-82 [facility] Comment on above: Performed By: #### M G, CMP, CMADM, BNP, ALIYAH, LIPA #### [facility] [address] [address] [address] Lawrence Wayne CBC AUTO DIFFon 02-06-2022 BASO # 0.1 103/ul Normal 0.0-0.1 [facility] Comment on above: Performed By: #### C BC ####[facility] [address] [address]Dr. Lawrence Wayne Basophils/100 WBC (Bld) 0.7 % Normal 0.2-2.0 [facility] Comment on above: Performed By: #### C BC ####[facility] [address] [address]Dr. Lawrence Wayne EO # 0.1 103/ul Normal 0.0-0.7 [facility] Comment on above: Performed By: #### C BC ####[facility] [address] [address]Dr. Lawrence Tone Eosinophils/100 WBC (Bld) 1.1 % Normal 0.9-7.0 [facility] Comment on above: Performed By: #### C BC ####[facility] [address] [place], [place] [address]Dr. Laraantonio Wayne Erythrocyte distribution width (RBC) [Ratio] 12.6 % Normal 11.0-15.0 [facility] Comment on above: Performed By: #### C BC ####[facility] [address] [place], [place] [address]Dr. Lawrence Wayne Hematocrit (Bld) [Volume fraction] 44.3 % Normal 36.0-48.0 [facility] Comment on above: Performed By: #### C BC ####[facility] [address] [place], [place] [address]Dr. Laraantonio Wayne Hemoglobin (Bld) [Mass/Vol] 14.4 g/dL Normal 12.0-16.0 [facility] Comment on above: Performed By: #### C BC ####[facility] [address] [place], [place] [address]Dr. Laraantonio Tone IG # 0.01 10e3/ul Normal 0.00-0.03 [facility] Comment on above: Performed By: #### C BC ####[facility] [address] [place], [place] [address]Dr. Lawrence Wayne IG % 0.1 % Normal 0.0-0.5 [facility] Comment on above: Performed By: #### C BC ####[facility] [address] [place], [place] [address]Dr. Lawrence Wayne LYMPH # 2.1 103/ul Normal 1.2-3.8 [facility] Comment on above: Performed By: #### C BC ####[facility] [address]uf[address] [place], [place] [address]Dr. Lawrence Wayne Lymphocytes/100 WBC (Bld) 29.6 % Normal 20.5-60.0 [facility] Comment on above: Performed By: #### C BC ####[facility] [address] [place] [address]DrKim Wayne MANUAL DIFF REQ NO Normal [facility] Comment on above: Performed By: #### C BC ####[facility] [address] [address]Dr. Lawrence Wayne MCH (RBC) [Entitic mass] 30.4 pg Normal 26.7-34.0 [facility] Comment on above: Performed By: #### C BC ####[facility] [address]fp[address] [place], [place] [address]Dr. Lawrence Wayne MCHC (RBC) [Mass/Vol] 32.5 g/dL Normal 29.9-35.2 [facility] Comment on above: Performed By: #### C BC ####[facility] [address] [place], [place] [address]DrKim Wayne MCV (RBC) [Entitic vol] 93.7 fL Normal 81.0-99.0 [facility] Comment on above: Performed By: #### C BC ####[facility] [address] [place], [place] [address]DrKim Wayne MONO # 0.8 103/ul Normal 0.3-0.8 [facility] Comment on above: Performed By: #### C BC ####[facility] [address] [place], [place] [address]DrKim Wayne Monocytes/100 WBC (Bld) 10.6 % Normal 1.7-12.0 [facility] Comment on above: Performed By: #### C BC ####[facility] [address] [place], [place] [address]DrKim Wayne NEUT # 4.1 103/ul Normal 1.4-6.5 [facility] Comment on above: Performed By: #### C BC ####[facility] [address]co[address] [place], [place] [address]DrKim Wayne Neutrophils/100 WBC (Bld) 57.9 % Normal 43.0-75.0 [facility] Comment on above: Performed By: #### C BC ####[facility] [address] [place] [address]Dr. Lawrence Wayne Platelet mean volume (Bld) [Entitic vol] 9.3 fL Critically low 9.5-13.5 [facility] Comment on above: Performed By: #### C BC ####[facility] [address] [place], [place] [address]Dr. Lawrence Wayne PLT 294 103/ul Normal 150-450 [facility] Comment on above: Performed By: #### C BC ####[facility] [address]ptn[address] [place], [place] [address]Dr. Lawrence Wayne RBC 4.73 106/ul Normal 4.20-5.40 [facility] Comment on above: Performed By: #### C BC ####[facility] [address] [place], [place] [address]Dr. Lawrence Wayne WBC 7.1 103/ul Normal 4.0-11.0 [facility] Comment on above: Performed By: #### C BC ####[facility] [address] [place] [place], [place] [address]Dr. Lawrence Wayne CULTURE BLOODon 02-06-2022 Microscopic examination of blood, culture Culture Observations: NO GROWTH AT 5 DAYS. Normal [facility] Comment on above: Performed By: #### B LDCX2 ####[facility] [address] [place], [place] [address]Dr. Lawrence Wayne Microscopic examination of blood, culture Culture Observations: NO GROWTH AT 5 DAYS. Normal [facility] Comment on above: Performed By: #### B LDCX1 ####[facility] [address] [place], [place] [address]Dr. Lawrence Wayne CULTURE URINEon 02-06-2022 CULTURE URINE Culture Observations: NO GROWTH. Normal [facility] Comment on above: Performed By: #### U RCX ####[facility] [address] [place], [place] [address]Dr. Lawrence Tnoe Covid-19 PCR (CVDTBH)on 01-14 SARS-CoV-2 (COVID-19) RNA EVELIA+probe Ql (Unsp spec) Not detected Normal NOT DETECTED [facility] Comment on above: Result Comment: [...] for this test is supported by the Tribal Judge of Health and Human Service's declaration that [...] be used). Performed By: #### C VDTBH ####[facility] [address] [address]Dr. Lawrence Wayne LACTATE/LACTIC ACIDon 2021 Lactate [Moles/Vol] 1.1 mmol/L Normal 0.4-1.9 [facility] Comment on above: Performed By: #### A MY, CMP, LIPA #### [facility] [address] [address] [address] Lawrence Wayne LIPASEon 02-06-2022 Lipase [Catalytic activity/Vol] 107.0 U/L Normal 73.0-393.0 [facility] Comment on above: Performed By: #### M G, CMP, CMADM, BNP, ALIYAH, LIPA #### [facility] [address] [address] [address] Lawrence Wayne MAGNESIUMon 02-06-2022 Magnesium [Mass/Vol] 2.3 mg/dL Normal 1.8-2.4 [facility] Comment on above: Performed By: #### M G, CMP, CMADM, BNP, ALIYAH, LIPA ####[facility] [address] [address]Dr. Lawrence Wayne PROF 14(COMP METB)on 022 Albumin [Mass/Vol] 3.8 g/dL Normal 3.4-5.0 [facility] Comment on above: Performed By: #### M G, CMP, CMADM, BNP, ALIYAH, LIPA #### [facility] [address] [address] [address] Lawrence Wayne Albumin/Globulin [Mass ratio] 1.1 {ratio} Normal [facility] Comment on above: Performed By: #### M G, CMP, CMADM, BNP, ALIYAH, LIPA #### [facility] [address] [address] [address] Lawrence Wayne ALP [Catalytic activity/Vol] 98 U/L Normal 46-116 [facility] Comment on above: Performed By: #### M G, CMP, CMADM, BNP, ALIYAH, LIPA #### [facility] [address] [address] [address] Lawrence Wayne ALT [Catalytic activity/Vol] 26 U/L Normal 14-59 [facility] Comment on above: Performed By: #### M G, CMP, CMADM, BNP, ALIYAH, LIPA #### [facility] [address] [address] [address] Lawrence Wayne Anion gap [Moles/Vol] 12.9 mmol/L Normal [facility] Comment on above: Performed By: #### M G, CMP, CMADM, BNP, ALIYAH, LIPA #### [facility] [address] [place] [address] Dr. Lawrence Wayne AST [Catalytic activity/Vol] 25 U/L Normal 15-37 [facility] Comment on above: Performed By: #### M G, CMP, CMADM, BNP, ALIYAH, LIPA #### [facility] [address] [address] [address] Lawrence Wayne Bilirubin [Mass/Vol] 0.3 mg/dL Normal 0.2-1.0 [facility] Comment on above: Performed By: #### M G, CMP, CMADM, BNP, ALIYAH, LIPA #### [facility] [address] [address] [address] Lawrence Wayne Calcium [Mass/Vol] 9.1 mg/dL Normal 8.5-10.1 [facility] Comment on above: Performed By: #### M G, CMP, CMADM, BNP, ALIYAH, LIPA #### [facility] [address] [address] [address] Lawrence Wayne Chloride [Moles/Vol] 105 mmol/L Normal 98-107 [facility] Comment on above: Performed By: #### M G, CMP, CMADM, BNP, ALIYAH, LIPA #### [facility] [address] [place] [address] Dr. Lawrence Wayne CO2 [Moles/Vol] 24.0 mmol/L Normal 21.0-32.0 [facility] Comment on above: Performed By: #### M G, CMP, CMADM, BNP, ALIYAH, LIPA #### [facility] [address] [place] [address] Dr. Lawrence Wayne Creatinine [Mass/Vol] 0.90 mg/dL Normal 0.55-1.02 [facility] Comment on above: Performed By: #### M G, CMP, CMADM, BNP, ALIYAH, LIPA #### [facility] [address] [place] [address] Dr. Lawrence Wayne EGFR-AF SURINAMESE >60 Normal >=60 [facility] Comment on above: Performed By: #### M G, CMP, CMADM, BNP, ALIYAH, LIPA #### [facility] [address] [place] [address] Dr. Lawrence Wayne EGFR-NON AF SURINAMESE >60 Normal >=60 [facility] Comment on above: Performed By: #### M G, CMP, CMADM, BNP, ALIYAH, LIPA #### [facility] [address] [place] [address] Dr. Lawrence Wayne Globulin (S) [Mass/Vol] 3.5 g/dL Normal [facility] Comment on above: Performed By: #### M G, CMP, CMADM, BNP, ALIYAH, LIPA #### [facility] [address] [address] [address] Lawrence Wayne Glucose [Mass/Vol] 95 mg/dL Normal 74-106 [facility] Comment on above: Performed By: #### M G, CMP, CMADM, BNP, ALIYAH, LIPA #### [facility] [address] [address] [address] Lawrence Wayne Potassium [Moles/Vol] 3.9 mmol/L Normal 3.5-5.1 [facility] Comment on above: Performed By: #### M G, CMP, CMADM, BNP, ALIYAH, LIPA #### [facility] [address] [address] [address] Lawrence Wayne Protein [Mass/Vol] 7.3 g/dL Normal 6.4-8.2 [facility] Comment on above: Performed By: #### M G, CMP, CMADM, BNP, ALIYAH, LIPA #### [facility] [address] [place] [address] Dr. Lawrence Wayne Sodium [Moles/Vol] 138 mmol/L Normal 136-145 [facility] Comment on above: Performed By: #### M G, CMP, CMADM, BNP, ALIYAH, LIPA #### [facility] [address] [address] [address] Lawrence Wayne Urea nitrogen [Mass/Vol] 12.0 mg/dL Normal 7.0-18.0 [facility] Comment on above: Performed By: #### M G, CMP, CMADM, BNP, ALIYAH, LIPA #### [facility] [address] [address] [address] Lawrence Wayne Urea nitrogen/Creatinine [Mass ratio] 13.3 mg/mg Normal [facility] Comment on above: Performed By: #### M G, CMP, CMADM, BNP, ALIYAH, LIPA #### [facility] [address] [place] [address] Dr. Lawrence Wayne UA RANDOM W/MICROSCOPICon BACTERIA NONE SEEN Normal NONE SEEN [facility] Comment on above: Performed By: #### A MY, CMP, LIPA #### [facility] [address] [address] [address] Lawrence Wayne Bilirubin Ql (U) Negative Normal NEGATIVE [facility] Comment on above: Performed By: #### A MY, CMP, LIPA #### [facility] [address] [place] [address] Dr. Lawrence Wayne CAST NONE SEEN Normal NONE SEEN [facility] Comment on above: Performed By: #### A MY, CMP, LIPA #### [facility] [address] [address] [address] Lawrence Wayne Clarity (U) CLEAR Normal CLEAR [facility] Comment on above: Performed By: #### A MY, CMP, LIPA #### [facility] [address] [place] [address] Dr. Lawrence Wayne Color (U) LT. YELLOW Normal YELLOW [facility] Comment on above: Performed By: #### A MY, CMP, LIPA #### [facility] [address] [place] [address] Dr. Lawrence Wayne Crystals LM Nom (Urine sed) NONE SEEN Normal NONE SEEN [facility] Comment on above: Performed By: #### A MY, CMP, LIPA #### [facility] [address] [place] [address] Dr. Lawrence Wayne Epithelial cells LM Ql (Urine sed) FEW Abnormal NONE SEEN /RARE [facility] Comment on above: Performed By: #### A MY, CMP, LIPA #### [facility] [address] [place] [address] Dr. Lawrence Wayne Glucose Ql (U) Negative Normal NEGATIVE [facility] Comment on above: Performed By: #### A MY, CMP, LIPA #### [facility] [address] [place] [address] Dr. Lawrence Wayne Hemoglobin Ql (U) Negative Normal NEGATIVE [facility] Comment on above: Performed By: #### A MY, CMP, LIPA #### [facility] [address] [place] [address] Dr. Lawrence Wayne Ketones Ql (U) Negative Normal NEGATIVE [facility] Comment on above: Performed By: #### A MY, CMP, LIPA #### [facility] [address] [place] [address] Dr. Lawrence Wayne LEUKOCYTES SMALL Abnormal NEGATIVE [facility] Comment on above: Performed By: #### A MY, CMP, LIPA #### [facility] [address] [address] [address] Lawrence Wayne MUCOUS NONE SEEN Normal NONE SEEN [facility] Comment on above: Performed By: #### A MY, CMP, LIPA #### [facility] [address] [address] [address] Lawrence Wayne Nitrite Ql (U) Negative Normal NEGATIVE [facility] Comment on above: Performed By: #### A MY, CMP, LIPA #### [facility] [address] [place] [address] Dr. Lawrence Wayne pH (U) 6.0 [pH] Normal 5-9 [facility] Comment on above: Performed By: #### A MY, CMP, LIPA #### [facility] [address] [place] [address] Dr. Lawrence Wayne RBC NONE SEEN Abnormal 0-2 [facility] Comment on above: Performed By: #### A MY, CMP, LIPA #### [facility] [address] [place] [address] Dr. Lawrence Wayne SPEC GRAVITY <=1.005 Abnormal 1.005-<=1.025 [facility] Comment on above: Performed By: #### A MY, CMP, LIPA #### [facility] [address] [place] [address] Dr. Lawrence Wayne UA PROTEIN Negative Normal NEGATIVE/ TRACE [facility] Comment on above: Performed By: #### A MY, CMP, LIPA #### [facility] [address] [place] [address] Dr. Lawrence Wayne Urobilinogen Qn (U) 0.2 {Antonina'U}/dL Normal 0.2 - 1. 0 [facility] Comment on above: Performed By: #### A MY, CMP, LIPA #### [facility] [address] [address] [address] Lawrence Wayne WBC 0-2 Abnormal NONE SEEN [facility] Comment on above: Performed By: #### A MY, CMP, LIPA #### [facility] [address] [address] [address] Lawrence Wayne YEAST PRESENT Abnormal NONE SEEN [facility] Comment on above: Performed By: #### A MY, CMP, LIPA #### [facility] [address] [address] [address] Lawrence Wayne XR ABD FLAT UP_PA [...] TYRELL MOREJON Date: 2022-02-06 16:08 Normal [facility] CTA CHEST WO W CONon 08-29- 022 CTA CHEST WO W CON EXAMINATION: [...] MARK RIOS Date: 2021-08-29 12:20 Normal [facility] XR ABD FLAT_UPon 08-27-2021 XR ABD [...] ENEDELIA FOLEY Date: 2021-08-27 16:08 Normal [facility] BNPon 08-21-2021 Natriuretic peptide B (Bld) [Mass/Vol] 51.0 pg/mL Normal <=900.0 [facility] Comment on above: Performed By: #### A MY, CMP, LIPA #### [facility] [address] [address] [address] Lawrence Wayne CBC AUTO DIFFon 08-21-2021 BASO # 0.0 103/ul Normal 0.0-0.1 [facility] Comment on above: Performed By: #### A MY, CMP, LIPA #### [facility] [address] [address] [address] Lawrence Wayne Basophils/100 WBC (Bld) 0.2 % Normal 0.2-2.0 [facility] Comment on above: Performed By: #### A MY, CMP, LIPA #### [facility] [address] [address] [address] Lawrence Wayne EO # 0.0 103/ul Normal 0.0-0.7 [facility] Comment on above: Performed By: #### A MY, CMP, LIPA #### [facility] [address] [address] [address] Lawrence Wayne Eosinophils/100 WBC (Bld) 0.1 % Critically low 0.9-7.0 [facility] Comment on above: Performed By: #### A MY, CMP, LIPA #### [facility] [address] [place] [address] Dr. Lawrence Wayne Erythrocyte distribution width (RBC) [Ratio] 13.3 % Normal 11.0-15.0 [facility] Comment on above: Performed By: #### A MY, CMP, LIPA #### [facility] [address] [place] [address] Dr. Lawrence Wayne Hematocrit (Bld) [Volume fraction] 45.7 % Normal 36.0-48.0 [facility] Comment on above: Performed By: #### A MY, CMP, LIPA #### [facility] [address] [place] [address] Dr. Lawrence Wayne Hemoglobin (Bld) [Mass/Vol] 15.3 g/dL Normal 12.0-16.0 [facility] Comment on above: Performed By: #### A MY, CMP, LIPA #### [facility] [address] [place] [address] Dr. Lawrence Wayne IG # 0.12 10e3/ul Critically high 0.00-0.03 [facility] Comment on above: Performed By: #### A MY, CMP, LIPA #### [facility] [address] [place] [address] Dr. Lawrence Wayne IG % 0.9 % Critically high 0.0-0.5 [facility] Comment on above: Performed By: #### A MY, CMP, LIPA #### [facility] [address] [address] [address] Lawrence Wayne LYMPH # 1.6 103/ul Normal 1.2-3.8 [facility] Comment on above: Performed By: #### A MY, CMP, LIPA #### [facility] [address] [address] [address] Lawrence Wayne Lymphocytes/100 WBC (Bld) 11.9 % Critically low 20.5-60.0 [facility] Comment on above: Performed By: #### A MY, CMP, LIPA #### [facility] [address] [address] [address] Lawrence Wayne MANUAL DIFF REQ NO Normal [facility] Comment on above: Performed By: #### A MY, CMP, LIPA #### [facility] [address] [place] [address] Dr. Lawrence Wayne MCH (RBC) [Entitic mass] 30.2 pg Normal 26.7-34.0 [facility] Comment on above: Performed By: #### A MY, CMP, LIPA #### [facility] [address] [place] [address] Dr. Lawrence Wayne MCHC (RBC) [Mass/Vol] 33.5 g/dL Normal 29.9-35.2 [facility] Comment on above: Performed By: #### A MY, CMP, LIPA #### [facility] [address] [place] [address] Dr. Lawrence Wayne MCV (RBC) [Entitic vol] 90.1 fL Normal 81.0-99.0 [facility] Comment on above: Performed By: #### A MY, CMP, LIPA #### [facility] [address] [address] [address] Lawrence Wayne MONO # 1.0 103/ul Critically high 0.3-0.8 [facility] Comment on above: Performed By: #### A MY, CMP, LIPA #### [facility] [address] [place] [address] Dr. Lawrence Wayne Monocytes/100 WBC (Bld) 7.2 % Normal 1.7-12.0 [facility] Comment on above: Performed By: #### A MY, CMP, LIPA #### [facility] [address] [address] [address] Lawrence Wayne NEUT # 11.0 103/ul Critically high 1.4-6.5 [facility] Comment on above: Performed By: #### A MY, CMP, LIPA #### [facility] [address] [place] [address] Dr. Lawrence Wayne Neutrophils/100 WBC (Bld) 79.7 % Critically high 43.0-75.0 [facility] Comment on above: Performed By: #### A MY, CMP, LIPA #### [facility] [address] [place] [address] Dr. Lawrence Wayne Platelet mean volume (Bld) [Entitic vol] 9.1 fL Critically low 9.5-13.5 [facility] Comment on above: Performed By: #### A MY, CMP, LIPA #### [facility] [address] [place] [address] Dr. Lawrence Wayne PLT 434 103/ul Normal 150-450 [facility] Comment on above: Performed By: #### A MY, CMP, LIPA #### [facility] [address] [place] [address] Dr. Lawrence Wayne RBC 5.07 106/ul Normal 4.20-5.40 [facility] Comment on above: Performed By: #### A MY, CMP, LIPA #### [facility] [address] [place] [address] Dr. Lawrence Wayne WBC 13.8 103/ul Critically high 4.0-11.0 [facility] Comment on above: Performed By: #### A MY, CMP, LIPA #### [facility] [address] [place] [address] Dr. Lawrence Wayne PROF 14(COMP METB)on 022 Albumin [Mass/Vol] 3.9 g/dL Normal 3.5-5.0 [facility] Comment on above: Performed By: #### A MY, CMP, LIPA #### [facility] [address] [address] [address] Lawrence Wayne Albumin/Globulin [Mass ratio] 1.0 {ratio} Normal [facility] Comment on above: Performed By: #### A MY, CMP, LIPA #### [facility] [address] [address] [address] Lawrence Wayne ALP [Catalytic activity/Vol] 104 U/L Normal 38-126 [facility] Comment on above: Performed By: #### A MY, CMP, LIPA #### [facility] [address] [address] [address] Lawrence Wayne ALT [Catalytic activity/Vol] 20 U/L Normal 9-52 [facility] Comment on above: Performed By: #### A MY, CMP, LIPA #### [facility] [address] [place] [address] Dr. Lawrence Wayne Anion gap [Moles/Vol] 15.5 mmol/L Normal [facility] Comment on above: Performed By: #### A MY, CMP, LIPA #### [facility] [address] [address] [address] Lawrence Wayne AST [Catalytic activity/Vol] 13 U/L Critically low 14-36 [facility] Comment on above: Performed By: #### A MY, CMP, LIPA #### [facility] [address] [address] [address] Lawrence Wayne Bilirubin [Mass/Vol] 0.4 mg/dL Normal 0.2-1.3 [facility] Comment on above: Performed By: #### A MY, CMP, LIPA #### [facility] [address] [address] [address] Lawrence Wayne Calcium [Mass/Vol] 9.4 mg/dL Normal 8.4-10.2 [facility] Comment on above: Performed By: #### A MY, CMP, LIPA #### [facility] [address] [address] [address] Lawrence Wayne Chloride [Moles/Vol] 100 mmol/L Normal 98-107 [facility] Comment on above: Performed By: #### A MY, CMP, LIPA #### [facility] [address] [address] [address] Lawrence Wayne CO2 [Moles/Vol] 23.9 mmol/L Normal 22.0-30.0 [facility] Comment on above: Performed By: #### A MY, CMP, LIPA #### [facility] [address] [place] [address] Dr. Lawrence Wayne Creatinine [Mass/Vol] 0.97 mg/dL Normal 0.52-1.04 [facility] Comment on above: Performed By: #### A MY, CMP, LIPA #### [facility] [address] [place] [address] Dr. Lawrence Wayne EGFR-AF SURINAMESE >60 Normal >=60 [facility] Comment on above: Performed By: #### A MY, CMP, LIPA #### [facility] [address] [place] [address] Dr. Lawrence Wayne EGFR-NON AF SURINAMESE 58 mL/min/1.73m2 Critically low >=60 [facility] Comment on above: Performed By: #### A MY, CMP, LIPA #### [facility] [address] [place] [address] Dr. Lawrence Wayne Globulin (S) [Mass/Vol] 3.8 g/dL Normal [facility] Comment on above: Performed By: #### A MY, CMP, LIPA #### [facility] [address] [place] [address] Dr. Lawrence Wayne Glucose [Mass/Vol] 169 mg/dL Critically high 74-106 [facility] Comment on above: Performed By: #### A MY, CMP, LIPA #### [facility] [address] [place] [address] Dr. Lawrence Wayne Potassium [Moles/Vol] 3.4 mmol/L Normal 3.4-5.0 [facility] Comment on above: Performed By: #### A MY, CMP, LIPA #### [facility] [address] [place] [address] Dr. Lawrence Wayne Protein [Mass/Vol] 7.7 g/dL Normal 6.1-8.2 [facility] Comment on above: Performed By: #### A MY CMP, LIPA #### [facility] [address] [address] [address] Lawrence Wayne Sodium [Moles/Vol] 136 mmol/L Critically low 137-[address] [facility] Comment on above: Performed By: #### A MY CMP, LIPA #### [facility] [address] [address] [address] Lawrence Wayne Urea nitrogen [Mass/Vol] 16.0 mg/dL Normal 7.0-17.0 [facility] Comment on above: Performed By: #### A MY CMP, LIPA #### [facility] [address] [address] [address] Lawrence Wayne Urea nitrogen/Creatinine [Mass ratio] 16.5 mg/mg Normal [facility] Comment on above: Performed By: #### A MY CMP, LIPA #### [facility] [address] [address] [address] Lawrence Wayne AMIRA by IFAon 08-12-2021 Antinuclear Antibodies, IFA Positive Abnormal [facility] Comment on above: Result Comment: Nega tive <1:80 Borderline 1:80 Positive >1:80 Performed By: #### A NAIFA ####[facility] [address] [address]Dr. Lawrence Wayne Centriole Pattern Normal [facility] Comment on above: Performed By: #### A NAIFA ####[facility] [address] [address]Dr. Lawrence Wayne Centromere Pattern Normal [facility] Comment on above: Performed By: #### A NAIFA ####[facility] [address] [address]Dr[address] Lawrence Wayne Homogeneous Pattern Normal [facility] Comment on above: Performed By: #### A NAIFA ####[facility] [address] [address]Dr. Lawrence Wayne Midbody Pattern Normal [facility] Comment on above: Performed By: #### A MICHELLE ####[facility] [address] [place], [place] [address]W[place]. Lawrence Tone Note: Comment Normal [facility] Comment on above: Result Comment: For more information about Hep-2 cell patterns use Nerve.compatterns.Rekoo, the official website for the International Consensus on Antinuclear Antibody (AMIRA) Patterns (ICAP). A positive AMIRA result may occur in healthy individuals (low titer) or be associated with a variety of diseases. See interpretation chart which is not all inclusive: . Pattern Antigen Detected Suggested Disease Association Homogeneous DNA(ds,ss), SLE - High titers Nucleosomes, Histones Drug-induced SLE Speckled Sm, DISTRESSER, SCL-70, SLE,MCTD,PSS (diffuse form), SS-A/SS-B Sjogrens Nucleolar SCL-70, PM-1/SCL High titers Scleroderma, PM/DM Centromere Centromere PSS (limited form) w/Crest syndrome variable Nuclear Dot [id number] Primary Biliary Cirrhosis Nuclear GP210, Primary Biliary Cirrhosis Membrane hamilton A,B,C Performed By: #### A NAIFA ####[facility] [id number] [place], [place] [address]Dr. Lawrence Wayne Nuclear Dot Pattern Normal [facility] Comment on above: Performed By: #### A NAIFA ####[facility] [id number] [place], [place] [address]Dr. Lawrence Wayne Nuclear Membrane Pattern Normal [facility] Comment on above: Performed By: #### A NAIFA ####[facility] [address] [place], [place] [address]Dr. Lawrence Wayne Nucleolar Pattern Normal [facility] Comment on above: Performed By: #### A NAIFA ####[facility] [address] [address]Dr. Lawrence Wayne PCNA Pattern Normal [facility] Comment on above: Performed By: #### A NAIFA ####[facility] [id number] [place], [place] [address]Dr. Lawrence Wayne Speckled Pattern 1:160 Critically high [facility] Comment on above: Result Comment: ICAP nomenclature: AC-2,4,5,29 Performed By: #### A NAIFA ####[facility] [address] [place], [place] [address]DrKim Wayne Spindle Apparatus Pattern Normal [facility] Comment on above: Performed By: #### A NAIFA ####[facility] [address] [address]DrKim Wayne AMIRA DIRECTon 08-11-2021 AMIRA Direct Positive Abnormal Negative [facility] Comment on above: Performed By: #### A NAD ####[facility] [address] [address]DrKim Wayne SLE PROFILE Aon 08-11-2021 Anti-DNA (DS) Ab Qn 1 IU/mL Normal 0-9 [facility] Comment on above: Result Comment: Nega tive <5 Equivocal 5 - 9 Positive >9 Performed By: #### A MY, CMP, LIPA #### [facility] [address] [address] [address] Lawrence Wayne Antichromatin Antibodies <0.2 Normal 0.0-0.9 [facility] Comment on above: Performed By: #### A MY, CMP, LIPA #### [facility] [address] [address] [address] Lawrence Wayne RA Latex Turbid. <10.0 Normal <14.0 [facility] Comment on above: Performed By: #### A MY, CMP, LIPA #### [facility] [address] [address] [address] Lawrence Wayne DISTRESSER Antibodies <0.2 Normal 0.0-0.9 [facility] Comment on above: Performed By: #### A MY, CMP, LIPA #### [facility] [address] [address] [address] Lawrence Wayne Sjogren's Anti-SS-A 1.4 AI Critically high 0.0-0.9 [facility] Comment on above: Performed By: #### A MY, CMP, LIPA #### [facility] [address] [address] [address] Lawrence Wayne Sjogren's Anti-SS-B <0.2 Normal 0.0-0.9 [facility] Comment on above: Performed By: #### A MY, CMP, LIPA #### [facility] [address] [place] [address] Dr. Lawrence Wayne Ramos Antibodies <0.2 Normal 0.0-0.9 [facility] Comment on above: Performed By: #### A MY, CMP, LIPA #### [facility] [address] [place] [address] Dr. Lawrence Wayne ANTISTREPTOLYSIN O AB (ASO)o n 08-10-2021 Antistreptolysin O Ab 55.6 IU/mL Normal 0.0-200.0 [facility] Comment on above: Performed By: #### A MY, CMP, LIPA #### [facility] [address] [place] [address] Dr. Lawrence Wayne C3 and C4 COMPLEMENTon 08-10 Complement C3, Serum 124 mg/dL Normal 82-167 [facility] Comment on above: Performed By: #### A MY, CMP, LIPA #### [facility] [address] [place] [address] Dr. Lawrence Wayne Complement C4, Serum 12 mg/dL Normal 12-38 [facility] Comment on above: Performed By: #### A MY, CMP, LIPA #### [facility] [address] [place] [address] Dr. Lawrence Wayne CBC AUTO DIFFon 08-09-2021 BASO # 0.1 103/ul Normal 0.0-0.1 [facility] Comment on above: Performed By: #### A MY, CMP, LIPA #### [facility] [address] [place] [address] Dr. Lawrence Wayne Basophils/100 WBC (Bld) 0.6 % Normal 0.2-2.0 [facility] Comment on above: Performed By: #### A MY, CMP, LIPA #### [facility] [address] [place] [address] Dr. Lawrence Wayne EO # 0.0 103/ul Normal 0.0-0.7 [facility] Comment on above: Performed By: #### A MY, CMP, LIPA #### [facility] [address] [place] [address] Dr. Lawrence Wayne Eosinophils/100 WBC (Bld) 0.2 % Critically low 0.9-7.0 [facility] Comment on above: Performed By: #### A MY, CMP, LIPA #### [facility] [address] [place] [address] Dr. Lawrence Wayne Erythrocyte distribution width (RBC) [Ratio] 13.4 % Normal 11.0-15.0 [facility] Comment on above: Performed By: #### A MY, CMP, LIPA #### [facility] [address] [place] [address] Dr. Lawrence Wayne Hematocrit (Bld) [Volume fraction] 43.6 % Normal 36.0-48.0 [facility] Comment on above: Performed By: #### A MY, CMP, LIPA #### [facility] [address] [place] [address] Dr. Lawrence Wayne Hemoglobin (Bld) [Mass/Vol] 14.2 g/dL Normal 12.0-16.0 [facility] Comment on above: Performed By: #### A MY, CMP, LIPA #### [facility] [address] [place] [address] Dr. Lawrence Wayne IG # 0.03 10e3/ul Normal 0.00-0.03 [facility] Comment on above: Performed By: #### A MY, CMP, LIPA #### [facility] [address] [place] [address] Dr. Lawrence Wayne IG % 0.3 % Normal 0.0-0.5 [facility] Comment on above: Performed By: #### A MY, CMP, LIPA #### [facility] [address] [place] [address] Dr. Lawrence Wayne LYMPH # 1.1 103/ul Critically low 1.2-3.8 [facility] Comment on above: Performed By: #### A MY, CMP, LIPA #### [facility] [address] [place] [address] Dr. Lawrence Wayne Lymphocytes/100 WBC (Bld) 12.7 % Critically low 20.5-60.0 [facility] Comment on above: Performed By: #### A MY, CMP, LIPA #### [facility] [address] [place] [address] Dr. Lawrence Wayne MANUAL DIFF REQ NO Normal [facility] Comment on above: Performed By: #### A MY, CMP, LIPA #### [facility] [address] [place] [address] Dr. Lawrence Wayne MCH (RBC) [Entitic mass] 30.3 pg Normal 26.7-34.0 [facility] Comment on above: Performed By: #### A MY, CMP, LIPA #### [facility] [address] [place] [address] Dr. Lawrence Wayne MCHC (RBC) [Mass/Vol] 32.6 g/dL Normal 29.9-35.2 [facility] Comment on above: Performed By: #### A MY, CMP, LIPA #### [facility] [address] [place] [address] Dr. Lawrence Wayne MCV (RBC) [Entitic vol] 93.0 fL Normal 81.0-99.0 [facility] Comment on above: Performed By: #### A MY, CMP, LIPA #### [facility] [address] [place] [address] Dr. Lawrence Wayne MONO # 0.3 103/ul Normal 0.3-0.8 [facility] Comment on above: Performed By: #### A MY, CMP, LIPA #### [facility] [address] [place] [address] Dr. Lawrence Wayne Monocytes/100 WBC (Bld) 3.7 % Normal 1.7-12.0 [facility] Comment on above: Performed By: #### A MY, CMP, LIPA #### [facility] [address] [place] [address] Dr. Lawrence Wayne NEUT # 7.3 103/ul Critically high 1.4-6.5 [facility] Comment on above: Performed By: #### A MY, CMP, LIPA #### [facility] [address] [address] [address] Lawrence Wayne Neutrophils/100 WBC (Bld) 82.5 % Critically high 43.0-75.0 [facility] Comment on above: Performed By: #### A MY, CMP, LIPA #### [facility] [address] [address] [address] Lawrence Wayne Platelet mean volume (Bld) [Entitic vol] 9.6 fL Normal 9.5-13.5 [facility] Comment on above: Performed By: #### A MY, CMP, LIPA #### [facility] [address] [address] [address] Lawrence Wayne PLT 322 103/ul Normal 150-450 [facility] Comment on above: Performed By: #### A MY, CMP, LIPA #### [facility] [address] [place] [address] Dr. Lawrence Wayne RBC 4.69 106/ul Normal 4.20-5.40 [facility] Comment on above: Performed By: #### A MY, CMP, LIPA #### [facility] [address] [address] [address] Lawrence Wayne WBC 8.8 103/ul Normal 4.0-11.0 [facility] Comment on above: Performed By: #### A MY, CMP, LIPA #### [facility] [address] [place] [address] Dr. Lawrence Wayne CRPon 08-09-2021 CRP [Mass/Vol] mg/L Normal <=1.0 [facility] Comment on above: Performed By: #### A MY, CMP, LIPA #### [facility] [address] [address] [address] Lawrence Wayne IRONon 08-09-2021 Iron [Mass/Vol] 83.0 ug/dL Normal 37.0-170.[address] [facility] Comment on above: Performed By: #### A MY, CMP, LIPA #### [facility] [address] [address] [address] Lawrence Wayne SED RATE WESTERGRENon 2021 SED RATE 16 mm/hr Normal <=30 [facility] Comment on above: Performed By: #### S EDR ####[facility] [address] [place], [place] [address]AnDr. Lawrence Wayne URIC ACID SERUMon 08-09-2021 Urate [Mass/Vol] 3.4 mg/dL Normal 2.5-6.2 [facility] Comment on above: Performed By: #### A MY, CMP, LIPA #### [facility] [address] [address] [address] Lawrence Wayne XR CSPINE MIN 4 [...] by: TYRELL MOREJON Date: 2021-08-09 14:37 Normal [facility] H PYLORI ANTIBODY IGGon 06-16 H. PYLORI IGG ABS 0.13 Index Value Normal 0.00-0.79 [facility] Comment on above: Result Comment: Nega tive <0.80 Equivocal 0.80 - 0.89 Positive >0.89 Performed By: #### A MY, CMP, LIPA #### [facility] [address] [address] [address] Lawrence Wayne AMYLASEon 07-11-2021 Amylase [Catalytic activity/Vol] 100 U/L Normal 31-110 [facility] Comment on above: Performed By: #### A MY, CMP, LIPA #### [facility] [address] [address] [address] Lawrence Wayne CBC AUTO DIFFon 07-11-2021 BASO # 0.1 103/ul Normal 0.0-0.1 [facility] Comment on above: Performed By: #### A MY, CMP, LIPA #### [facility] [address] [place] [address] Dr. Lawrence Wayne Basophils/100 WBC (Bld) 0.7 % Normal 0.2-2.0 [facility] Comment on above: Performed By: #### A MY, CMP, LIPA #### [facility] [address] [place] [address] Dr. Lawrence Wayne EO # 0.1 103/ul Normal 0.0-0.7 [facility] Comment on above: Performed By: #### A MY, CMP, LIPA #### [facility] [address] [place] [address] Dr. Lawrence Wayne Eosinophils/100 WBC (Bld) 1.2 % Normal 0.9-7.0 [facility] Comment on above: Performed By: #### A MY, CMP, LIPA #### [facility] [address] [place] [address] Dr. Lawrence Wayne Erythrocyte distribution width (RBC) [Ratio] 13.9 % Normal 11.0-15.0 [facility] Comment on above: Performed By: #### A MY, CMP, LIPA #### [facility] [address] [place] [address] Dr. Lawrence Wayne Hematocrit (Bld) [Volume fraction] 45.9 % Normal 36.0-48.0 [facility] Comment on above: Performed By: #### A MY, CMP, LIPA #### [facility] [address] [place] [address] Dr. Lawrence Wayne Hemoglobin (Bld) [Mass/Vol] 14.9 g/dL Normal 12.0-16.0 [facility] Comment on above: Performed By: #### A MY, CMP, LIPA #### [facility] [address] [place] [address] Dr. Lawrence Wayne IG # 0.03 10e3/ul Normal 0.00-0.03 [facility] Comment on above: Performed By: #### A MY, CMP, LIPA #### [facility] [address] [address] [address] Lawrence Wayne IG % 0.4 % Normal 0.0-0.5 [facility] Comment on above: Performed By: #### A MY, CMP, LIPA #### [facility] [address] [place] [address] Dr. Lawrence Wayne LYMPH # 2.2 103/ul Normal 1.2-3.8 [facility] Comment on above: Performed By: #### A MY, CMP, LIPA #### [facility] [address] [place] [address] Dr. Lawrence Wayne Lymphocytes/100 WBC (Bld) 29.0 % Normal 20.5-60.0 [facility] Comment on above: Performed By: #### A MY, CMP, LIPA #### [facility] [address] [place] [address] Dr. Lawrence Wayne MANUAL DIFF REQ NO Normal [facility] Comment on above: Performed By: #### A MY, CMP, LIPA #### [facility] [address] [place] [address] Dr. Lawrence Wayne MCH (RBC) [Entitic mass] 29.8 pg Normal 26.7-34.0 [facility] Comment on above: Performed By: #### A MY, CMP, LIPA #### [facility] [address] [place] [address] Dr. Lawrence Wayne MCHC (RBC) [Mass/Vol] 32.5 g/dL Normal 29.9-35.2 [facility] Comment on above: Performed By: #### A MY, CMP, LIPA #### [facility] [address] [place] [address] Dr. Lawrence Wayne MCV (RBC) [Entitic vol] 91.8 fL Normal 81.0-99.0 [facility] Comment on above: Performed By: #### A MY, CMP, LIPA #### [facility] [address] [place] [address] Dr. Lawrence Wayne MONO # 0.9 103/ul Critically high 0.3-0.8 [facility] Comment on above: Performed By: #### A MY, CMP, LIPA #### [facility] [address] [address] [address] Lawrence Wayne Monocytes/100 WBC (Bld) 11.7 % Normal 1.7-12.0 [facility] Comment on above: Performed By: #### A MY, CMP, LIPA #### [facility] [address] [place] [address] Dr. Lawrence Wayne NEUT # 4.3 103/ul Normal 1.4-6.5 [facility] Comment on above: Performed By: #### A MY, CMP, LIPA #### [facility] [address] [place] [address] Dr. Lawrence Wayne Neutrophils/100 WBC (Bld) 57.0 % Normal 43.0-75.0 [facility] Comment on above: Performed By: #### A MY, CMP, LIPA #### [facility] [address] [place] [address] Dr. Lawrence Wayne Platelet mean volume (Bld) [Entitic vol] 8.7 fL Critically low 9.5-13.5 [facility] Comment on above: Performed By: #### A MY, CMP, LIPA #### [facility] [address] [place] [address] Dr. Lawrence Wayne PLT 351 103/ul Normal 150-450 [facility] Comment on above: Performed By: #### A MY, CMP, LIPA #### [facility] [address] [place] [address] Dr. Lawrence Wayne RBC 5.00 106/ul Normal 4.20-5.40 [facility] Comment on above: Performed By: #### A MY, CMP, LIPA #### [facility] [address] [place] [address] Dr. Lawrence Wayne WBC 7.6 103/ul Normal 4.0-11.0 [facility] Comment on above: Performed By: #### A MY, CMP, LIPA #### [facility] [address] [place] [address] Dr. Lawrence Wayne LIPASEon 07-11-2021 Lipase [Catalytic activity/Vol] 93.0 U/L Normal 23.0-300.0 [facility] Comment on above: Performed By: #### A MY, CMP, LIPA #### [facility] [address] [place] [address] Dr. Lawrence Wayne PROF 14(COMP METB)on 022 Albumin [Mass/Vol] 4.1 g/dL Normal 3.5-5.0 [facility] Comment on above: Performed By: #### A MY, CMP, LIPA #### [facility] [address] [place] [address] Dr. Lawrence Wayne Albumin/Globulin [Mass ratio] 1.1 {ratio} Normal [facility] Comment on above: Performed By: #### A MY, CMP, LIPA #### [facility] [address] [place] [address] Dr. Lawrence Wayne ALP [Catalytic activity/Vol] 101 U/L Normal 38-126 [facility] Comment on above: Performed By: #### A MY, CMP, LIPA #### [facility] [address] [place] [address] Dr. Lawrence Wayne ALT [Catalytic activity/Vol] 38 U/L Normal 9-52 [facility] Comment on above: Performed By: #### A MY, CMP, LIPA #### [facility] [address] [address] [address] Lawrence Wayne Anion gap [Moles/Vol] 12.5 mmol/L Normal [facility] Comment on above: Performed By: #### A MY, CMP, LIPA #### [facility] [address] [place] [address] Dr. Lawrence Wayne AST [Catalytic activity/Vol] 25 U/L Normal 14-36 [facility] Comment on above: Performed By: #### A MY, CMP, LIPA #### [facility] [address] [place] [address] Dr. Lawrence Wayne Bilirubin [Mass/Vol] 0.8 mg/dL Normal 0.2-1.3 [facility] Comment on above: Performed By: #### A MY, CMP, LIPA #### [facility] [address] [address] [address] Lawrence Wayne Calcium [Mass/Vol] 9.9 mg/dL Normal 8.4-10.2 [facility] Comment on above: Performed By: #### A MY, CMP, LIPA #### [facility] [address] [address] [address] Lawrence Wayne Chloride [Moles/Vol] 98 mmol/L Normal 98-107 [facility] Comment on above: Performed By: #### A MY, CMP, LIPA #### [facility] [address] [place] [address] Dr. Lawrence Wayne CO2 [Moles/Vol] 26.6 mmol/L Normal 22.0-30.0 [facility] Comment on above: Performed By: #### A MY, CMP, LIPA #### [facility] [address] [address] [address] Lawrence Wayne Creatinine [Mass/Vol] 1.12 mg/dL Critically high 0.52-1.04 [facility] Comment on above: Performed By: #### A MY, CMP, LIPA #### [facility] [address] [place] [address] Dr. Lawrence Wayne EGFR-AF SURINAMESE 59 mL/min/1.73m2 Critically low >=60 [facility] Comment on above: Performed By: #### A MY, CMP, LIPA #### [facility] [address] [address] [address] Lawrence Wayne EGFR-NON AF SURINAMESE 49 mL/min/1.73m2 Critically low >=60 [facility] Comment on above: Performed By: #### A MY, CMP, LIPA #### [facility] [address] [address] [address] Lawrence Wayne Globulin (S) [Mass/Vol] 3.7 g/dL Normal [facility] Comment on above: Performed By: #### A MY, CMP, LIPA #### [facility] [address] [address] [address] Lawrence Wayne Glucose [Mass/Vol] 117 mg/dL Critically high 74-106 [facility] Comment on above: Performed By: #### A MY, CMP, LIPA #### [facility] [address] [place] [address] Dr. Lawrence Wayne Potassium [Moles/Vol] 4.1 mmol/L Normal 3.4-5.0 [facility] Comment on above: Performed By: #### A MY, CMP, LIPA #### [facility] [address] [place] [address] Dr. Lawrence Wayne Protein [Mass/Vol] 7.8 g/dL Normal 6.1-8.2 [facility] Comment on above: Performed By: #### A MY, CMP, LIPA #### [facility] [address] [place] [address] Dr. Lawrence Wayne Sodium [Moles/Vol] 133 mmol/L Critically low 137-145 [facility] Comment on above: Performed By: #### A MY, CMP, LIPA #### [facility] [address] [place] [address] Dr. Lawrence Wayne Urea nitrogen [Mass/Vol] 9.0 mg/dL Normal 7.0-17.0 [facility] Comment on above: Performed By: #### A MY, CMP, LIPA #### [facility] [address] [place] [address] Dr. Lawrence Wayne Urea nitrogen/Creatinine [Mass ratio] 8.0 mg/mg Normal [facility] Comment on above: Performed By: #### A MY, CMP, LIPA #### [facility] [address] [place] [address] Dr. Lawrence Wayne Vital Signs Date Time Vital Sign Value Performing Clinician Siobhan escalante 02-07-2025 15:30-0400 Body temperature 98.1 [degF] Anitha Mcgregor MD Work Phone: [facility] 02-07-2025 15:30-0400 Diastolic blood pressure 59 mm[Hg] Anitha Mcgregor MD Work Phone: [facility] 02-07-2025 15:30-0400 Heart rate 65 /min Anitha Mcgregor MD Work Phone: [facility] 02-07-2025 15:30-0400 Respiratory rate 18 /min Anitha Mcgregor MD Work Phone: [facility] 02-07-2025 15:30-0400 SaO2% (BldA) [Mass fraction] 100 % Anitha Mcgregor MD Work Phone: [facility] 02-07-2025 15:30-0400 Systolic blood pressure 108 mm[Hg] Anitha Mcgregor MD Work Phone: [facility] 02-07-2025 05:55-0400 Body weight 63.9 kg Anitha Mcgregor MD Work Phone: [facility] 02-06-2025 14:26-0400 Inhaled oxygen flow rate 6 L/min Anitha Mcgregor MD Work Phone: [facility] 02-04-2025 19:57-0400 Body height 160.02 cm Anitha Mcgregor MD Work Phone: [facility] 01-23-2025 09:14-0400 Body height 160.02 cm Anitha Mcgregor MD Work Phone: [facility] 01-23-2025 09:14-0400 Body mass index (BMI) [Ratio] 24.4 kg/m2 Anitha Mcgregor MD Work Phone: [facility] 01-23-2025 09:14-0400 Body weight 62.59 kg Anitha Mcgregor MD Work Phone: [facility] 01-23-2025 09:14-0400 Diastolic blood pressure 64 mm[Hg] Anitha Mcgregor MD Work Phone: [facility] 01-23-2025 09:14-0400 Heart rate 65 /min Anitha Mcgregor MD Work Phone: [facility] 01-23-2025 09:14-0400 Respiratory rate 6 /min Anitha Mcgregor MD Work Phone: [facility] 01-23-2025 09:14-0400 SaO2% (BldA) [Mass fraction] 98 % Anitha Mcgregor MD Work Phone: [facility] 01-23-2025 09:14-0400 Systolic blood pressure 102 mm[Hg] Anitha Mcgregor MD Work Phone: [facility] 08-15-2024 10:22-0500 Body height 160 cm Divya Dudley MD Work Phone: [facility] 08-15-2024 10:22-0500 Body mass index (BMI) [Ratio] 23.56 kg/m2 Divya Dudley MD Work Phone: [facility] 08-15-2024 10:22-0500 Body weight 60.33 kg Divya Dudley MD Work Phone: [facility] 08-15-2024 10:22-0500 Diastolic blood pressure 80 mm[Hg] Divya Dudley MD Work Phone: [facility] 08-15-2024 10:22-0500 Heart rate 73 /min Divya Dudley MD Work Phone: [facility] 08-15-2024 10:22-0500 Systolic blood pressure 124 mm[Hg] Divya Dudley MD Work Phone: [facility] 07-20-2024 14:12-0500 Body mass index (BMI) [Ratio] 23.6 kg/m2 Miguel Ángel Rosales DO Work Phone: [facility] 07-20-2024 14:12-0500 Body weight 60.42 kg Miguel Ángel Rosales DO Work Phone: [facility] 07-20-2024 14:12-0500 Diastolic blood pressure 84 mm[Hg] Miguel Ángel Rosales DO Work Phone: [facility] 07-20-2024 14:12-0500 Heart rate 72 /min Garther Connie DO Work Phone: [facility] 07-20-2024 14:12-0500 SaO2% (BldA) [Mass fraction] 99 % Christopher Connie DO Work Phone: [facility] 07-20-2024 14:12-0500 Systolic blood pressure 132 mm[Hg] Miguel Ángel Rosales DO Work Phone: [facility] 06-20-2024 10:20-0500 Body height 160 cm Divya Dudley MD Work Phone: [facility] 06-20-2024 10:20-0500 Diastolic blood pressure 71 mm[Hg] Divya Dudley MD Work Phone: [facility] 06-20-2024 10:20-0500 Heart rate 64 /min Divya Dudley MD Work Phone: [facility] 06-20-2024 10:20-0500 Systolic blood pressure 110 mm[Hg] Divya Dudley MD Work Phone: [facility] 05-27-2022 15:00-0500 Body height 160.02 cm Prasad Isabel Other [facility] Other 05-27-2022 15:00-0500 Body mass index (BMI) [Ratio] 23.56 kg/m2 Prasad Isabel Other [facility] 05-27-2022 15:00-0500 Body weight 60.33 kg Prasad Isabel Other [facility] Other Encounters Encounter Date Encounter Type Care Provider Facility Start: 02-23-2025 End: 02-23-2025 Patient encounter procedure Ravin Campoverde MD -Ultrasound [facility] Work Phone: Start: 02-23-2025 End: 02-23-2025 ambulatory Anitha Mcgregor MD Work Phone: [facility] Work Phone: Start: 02-21-2025 End: 02-21-2025 ambulatory Anitha Mcgregor MD Work Phone: [facility] Work Phone: Start: 02-21-2025 End: 02-21-2025 Patient encounter procedure Ravin Campoverde MD -[facility] Work Phone: Start: 02-21-2025 End: 02-21-2025 Patient encounter procedure Ravin Campoverde MD -[facility] Start: 02-21-2025 End: 02-21-2025 ambulatory Anitha Mcgregor MD Work Phone: [facility] Work Phone: Start: 02-04-2025 Non-patient / Non-visit Ravin freedman MD -[facility] Work Phone: Start: 02-04-2025 End: 02-07-2025 Evaluation and management of inpatient Dax Matt Facility:[facility] Start: 01-23-2025 End: 01-23-2025 ambulatory Anitha Mcgregor MD Work Phone: [facility] Work Phone: Start: 01-23-2025 End: 01-23-2025 Patient encounter procedure Екатерина Drummond Oswaldo RAILCAR BRAKE OPERATOR-HIGH RIGGER-C -[facility] [place] Work Phone: Start: 08-15-2024 End: 08-15-2024 Bamboo [...] Phone: [facility] Start: 06-20-2024 End: 06-20-2024 Bamdoroteoo nelia Dudley MD Work Phone: [facility] Start: [...] Start: 01-18-2024 End: 01-18-2024 ambulatory Cindy Phan Facility:[facility] Start: 01-11-2024 End: 01-11-2024 ambulatory CINDY PHAN Not Available Start: 11-16-2023 End: 11-16-2023 ambulatory MIGUEL ÁNGEL RICHARDSETT Not Available Start: 11-02-2023 End: 11-02-2023 ambulatory JASVIR SMILEY Not Available Start: 10-08-2023 End: 10-08-2023 ambulatory MIGUEL ÁNGEL ROSALES Not Available Start: 07-27-2023 Bamboo flowsheet Cindy Naik hllashaun DO Work Phone: [facility] Start: 07-27-2023 Bamboo flowsheet Cindy Naik hler DO Work Phone: [facility] Start: 07-01-2022 End: 07-02-[address] ANITHA MCGREGOR Facility:[facility] Start: 06-23-2022 End: 06-23-2022 ambulatory ANITHA MCGREGOR Facility:[facility] Start: 06-23-2022 End: 06-23-2022 ambulatory Benjamin Moore PA-C Work Phone: [facility] [place] Comment on above: Fibromyalgia (Primar y Dx); Cervicalgia Start: 06-23-2022 End: 06-23-2022 Telemedicine consultation with patient Benjamin Moore PA-C Work Phone: [facility] Start: 06-17-2022 End: 06-17-[address] JULIANN ROGER Facility:[facility] Start: 06-03-2022 End: 06-03-2022 ambulatory Bentley Bragg Other [facility] Other Start: 06-03-2022 Chart abstracting Unk (Historical) N eurology Start: 06-03-2022 Telephone encounter Bentley Bragg [facility] Service Support Representative Start: 05-27-2022 End: 05-27-2022 ambulatory Prasad Isabel Other [facility] [employer] Other Start: 05-27-2022 Office outpatient ne w 30 minutes Prasad GUTIERREZ [facility] Neurosurgery Start: 05-20-2022 End: 05-21-2022 [...] limb veins US venous duplex LE BI [facility] Start: 02-21-2025 X-ray of left foot XR foot LT min 3V * [facility] Start: 02-21-2025 XR Foot - left GE 3 Views [facility] Start: 02-21-2025 X-ray of left ankle XR ankle LT min 3V* [facility] Start: 02-21-2025 XR Ankle - left GE 3 Views [facility] Start: 02-07-2025 [facility] Start: 02-06-2025 XR Ankle - left 2 Views [facility] Start: 02-06-2025 Hospital admission [facility] Start: 02-04-2025 Consultation [facility] Start: 02-04-2025 [facility] Start: 01-23-2025 End: 01-23-2025 Patient encounter procedure 01/23/2025 9:40 AM EDT Office Visit AMIRA JODI [address] [place] [phone] Екатерина Chacon NP [address] [place] [id number] AMIRA JODI Start: 09-20-2024 End: 09-20-2024 Patient encounter procedure 09/20/2024 1:30 PM EDT Office Visit [facility] [address] [facility] [address] [place] [address] Divya Dudley MD [address] [place] [address] [facility] Start: 08-15-2024 End: 08-15-2024 Patient encounter procedure 08/15/2024 10:30 AM EST Office Visit [facility] [address] [place] [address] Divya Dudley MD [address] [place] [address] Arrived [facility] Comment on above: Arrived Start: 07-20-2024 End: 07-20-2024 Patient encounter procedure 07/20/2024 2:15 PM EST Office Visit AMIRA ZAPATA [address] [place] [address] Miguel Ángel Rosales DO [address] [place] [address] Arrived AMIRA ZAPATA Comment on above: Arrived Start: 06-20-2024 End: 06-20-2024 Patient encounter procedure 06/20/2024 10:30 AM EST Office Visit [facility] [address] [place] [address] Divya Dudley MD [address] [facility] [address] [place] [address] Arrived [facility] Comment on above: Arrived Start: 02-14-2024 Influenza vaccination Influenza Vacc ine (#1) [facility] Start: 02-09-2024 End: 02-09-2024 Patient encounter procedure 02/09/2024 7:30 AM EDT Procedure Visit [facility] Cindy Phan DO [address] [place] [address] [facility] Start: 01-11-2024 End: 01-11-2024 Patient encounter procedure 01/11/2024 1:15 PM EDT Office Visit [facility] [address] [place] [phone] Cindy Phan DO [address] [place] [address] [facility] Start: 07-27-2023 End: 07-27-2023 Patient encounter procedure 07/27/2023 2:15 PM EST Office Visit [facility] [address] [place] [address] Zahler, Cindy D, DO [address] [place] [address] Arrived [facility] Comment on above: Arrived Start: 03-26-2023 Screening for malign ant neoplasm of breast Mammogram [facility] Start: 02-13-2023 Influenza vaccination Influenza Vacc ine (#1) [facility] Start: 06-15-2022 ADVANCE DIRECTIVE DISCUSSION ADVANCE DIRECTIVE DISCUSSION [facility] Start: 06-15-2022 DEPRESSION ASSESSMENT DEPRESSION ASS ESSMENT [facility] Start: 02-13-2022 Influenza vaccination INFLUENZA (#1) [facility] Start: 12-08-2021 COVID-19 VACCINE (5 - Booster for Moderna series) COVID-19 VACCINE (5 - Booster for Moderna series) [facility] Start: 06-15-2021 ADVANCE DIRECTIVE DISCUSSION ADVANCE DIRECTIVE DISCUSSION [facility] Start: 06-15-2021 DEPRESSION ASSESSMENT DEPRESSION ASS ESSMENT [facility] Start: 01-11-2021 BONE DENSITY BONE DENSITY [facility] Start: 01-11-2021 Pneumococcal Vaccine : 65+ Years (1 - PCV) Pneumococcal Vaccine: 65+ Years (1 - PCV) [facility] Start: 01-11-2021 Pneumococcal Vaccine : 65+ Years (1 of 1 - PCV) Pneumococcal Vaccine: 65+ Years (1 of 1 - PCV) [facility] Start: 01-11-2021 PNEUMOCOCCAL: 65+ (1 - PCV) PNEUMOCOCCAL: 65+ (1 - PCV) [facility] Start: 09-20-2012 DIABETES SCREEN DIABETES SCREEN [facility] Start: 01-11-2006 SHINGRIX VACCINE (1 of 2) SHINGRIX VACCINE (1 of 2) [facility] Start: 01-11-2001 COLOGUARD (FIT-DNA) COLOGUARD (FIT-D NA) [facility] Start: 01-11-2001 Colonoscopy COLONOSCOPY [facility] Start: 01-11-2001 COLORECTAL CANCER SCREENING COLORECTAL CANCER SCREENING [facility] Start: 01-11-[address] COLONOGRAPHY [facility] Start: 01-11-2001 FECAL OCCULT BLOOD FECAL OCCULT BLOO D [facility] Start: 01-11-2001 LIPID SCREEN LIPID SCREEN [facility] Start: 01-11-2001 SIGMOIDOSCOPY SIGMOIDOSCOPY [facility] Start: 1996 Mammography MAMMOGRAM [facility] Start: 01-11-1975 Urine microalbumin profile DTAP,TDAP,TD (1 - Tdap) [facility] Start: 01-11-1974 HEPATITIS C SCREENING HEPATITIS C SC CEDRICJIMMY [facility] Start: 1955 COVID-19 VACCINE (#1) COVID-19 VACCI NE (#1) [facility] Start: 1955 Screening for malign ant neoplasm of colon [facility] Patient Education Cholecalcifero l Oxycodone Know your Meds [facility] Work Phone: Patient referral [facility] Work Phone: Immunizations Immunization Date Immunization Notes Care Provider Fa sunita 04-09-2022 influenza virus vacc ine, unspecified formulation Cindy Phan DO Work Phone: [facility] Payers Date Payer Category Payer Medicare [id number] 2025 Self-pay 2024 Unknown [id number] 2023 Medicare ANTHEM MEDICARE ADVANTAGE ANTHEM MEDICARE ADVANTAGE [id number] 2023-Present [address] [id number] 2023 Medicare (Managed Care) [facility] Member Subscriber Plan / Payer (Effective 2023-Present) Name: Skip Hong Relation to Subscriber: Self Name: Skip Hong Payer ID: Not on file Group ID: [id number] Type: Not on file Address: [address] [place] [id number] 2021 Unknown ANTHEM BLUE CROS S AND BLUE SHIELD ANTHEM MEDIBLUE HMO [id number] 2021-Present [phone] [address] [place] [address] HMO [id number] 1959 Unknown [id number] 1956 Unknown [id number] 2.16.840.1.949404.3.579. 2.593 1956 Unknown [id number] 2.16.840.1.278077.3.579. 2.593 1956 Unknown [id number] 2.16.840.1.009665.3.579. 2.593 1956 Unknown [id number] 2.16.840.1.102767.3.579. 2.593 1956 Unknown [id number] 2.16.840.1.207113.3.579. 2.593 1956 Unknown [id number] 2.16.840.1.109852.3.579. 2.593 1956 Unknown [id number] 2.16.840.1.694132.3.579. 2.593 1956 Unknown [id number] 2.16.840.1.259341.3.579. 2.593 1956 Unknown [id number] 2.16.840.1.012650.3.579. 2.593 1956 Unknown [id number] 2.16.840.1.147973.3.579. 2.593 1956 Unknown [id number] 2.16.840.1.565316.3.579. 2.593 1956 Unknown [id number] 2.16.840.1.083833.3.579. 2.593 1956 Unknown [id number] 2.16.840.1.016743.3.579. 2.593 1956 Unknown [id number] 2.16.840.1.135180.3.579. 2.727 1956 Unknown [id number] 2.16.840.1.135753.3.579. 2.727 1956 Unknown [id number] 2.16.840.1.384079.3.579. 2.1259 1956 Unknown [id number] 2.16.840.1.965253.3.579. 2.1259 1956 Unknown [id number] 2.16.840.1.918019.3.579. 2.1259 1956 Unknown [id number] 2.16.840.1.353052.3.579. 2.1259 1956 Unknown [id number] 2.16.840.1.559970.3.579. 2.1259 1956 Unknown [id number] 2.16.840.1.054679.3.579. 2.1259 1956 Unknown [id number] 2.16.840.1.876792.3.579. 2.1259 Unknown [id number] 2.16.840.1.910974.3.579. 2.531 Unknown [id number] 2.16.840.1.764155.3.579. 2.531 Unknown [id number] 2.16840.1.353871.3.579. 2.531 Social History Date Type Detail Facility Start: 04-10-2011 End: 02-04-2025 Tobacco smoking status NHIS Never smoked tobacco [facility] Start: 04-10-2011 End: 07-27-2023 Tobacco use and exposure Smokeless tobacco non-user [facility] Start: 05-13-2018 Alcohol intake Current non-dr bobbin doffer of alcohol (finding) [facility] Start: 1955 Sex Assigned At Not on file [facility] Start: 10-08-2023 End: 08-15-2024 Sex Assigned At [facility] [employer] Other Tobacco smoking status RIIS Tobacco smoking consumption unknown [facility] Start: 10-08-2023 End: 08-15-2024 History of Social function [facility] Start: 06-20-2024 End: 08-15-2024 Alcoholic beverage intake Ex-drinker (finding) [facility] Sex Female (finding) [facility] Start: 1955 Sex Assigned At Female [facility] Start: 02-07-2025 SDOH Follow up SDOH Follow up [facility] Work Phone: Medical Equipment Procedure Code Equipment Code Equipment Origin al Text Equipment Identifier Dates ORIF, fracture, ankle Orthopaedic bone screw, non-bioabsorbable, non-sterile ()[id number] FDA Start: 02-06-2025 ORIF, fracture, ankle Orthopaedic bone screw, non-bioabsorbable, non-sterile ()[id number] FDA Start: 02-06-2025 ORIF, fracture, ankle Orthopaedic bone screw, non-bioabsorbable, non-sterile ()[id number] FDA Start: 02-06-2025 ORIF, fracture, ankle Orthopaedic bone screw, non-bioabsorbable, non-sterile ()[id number] FDA Start: 02-06-2025 ORIF, fracture, ankle Orthopaedic bone screw, non-bioabsorbable, non-sterile ()[id number] FDA Start: 02-06-2025 ORIF, fracture, ankle Orthopaedic fixation plate, non-bioabsorbable, sterile ()[id number] FDA Start: 02-06-2025 ORIF, fracture, ankle Orthopaedic bone screw, non-bioabsorbable, non-sterile ()[id number] FDA Start: 02-06-2025 ORIF, fracture, ankle Orthopaedic bone screw, non-bioabsorbable, non-sterile ()[id number] FDA Start: 02-06-2025 ORIF, fracture, ankle Orthopaedic bone screw, non-bioabsorbable, non-sterile ()[id number] FDA Start: 02-06-2025 ORIF, fracture, ankle Orthopaedic bone screw, non-bioabsorbable, non-sterile ()[id number] FDA Start: 02-06-2025 ORIF, fracture, ankle Orthopaedic bone screw, non-bioabsorbable, non-sterile ()[id number] FDA Start: 02-06-2025 Clinical Notes 05-27-2022 to 01-23-2025 Note Date & Type Note Facility 01-23-2025 Evaluation note Diagnosis Onset Date Resolution Family history of Alzheimer's disease chronic January 23, 2025 9:13am Memory difficulty chronic January 23, 2025 9:13am Closed left trimalleolar fracture acute January 7:29pm Fibromyalgia acute February 04, 2025 7:29pm History of thoracic outlet syndrome acute February 04 7:29pm [facility] Work Phone: 1(379) 230-446208-11-2025 Evaluation note* Diagnosis Onset Date Resolution Status Admit Date Family history of Alzheimer' s disease chronic January 23 9:13am Memory difficulty chronic January 23, 2025 9:13am Closed left trimalleolar fracture acute February 04 7:29pm Fibromyalgia acute February 04, 2025 7:29pm History of thoracic outlet syndrome acute February 04 7:29pm Closed left trimalleolar fracture acute February 21, 025 8:55am Encounter for removal of sutures acute February 21 025 8:55am History of open reduction an d internal fixation (ORIF) procedure acute February 21, 2 025 8:55am Other specified postprocedur al states acute February 21, 2 025 8:55am [facility] Work Phone: 1(706) 278-539008-11-2025 Evaluation note* Diagnosis Onset Date Resolution Status Admit Date Family history of Alzheimer' s disease chronic January 23 9:13am Memory difficulty chronic January 23, 2025 9:13am Closed left trimalleolar fracture acute February 04 7:29pm Fibromyalgia acute February 04, 2025 7:29pm History of thoracic outlet syndrome acute February 04 7:29pm Arthritis of left foot acute Se ptember 2024 8:55am Closed left trimalleolar fracture acute February 21 8:55am Encounter for removal of sutures acute February 21 8:55am History of open reduction an d internal fixation (ORIF) procedure acute February 21 025 8:55am Other specified postprocedur al states acute February 21 8:55am [facility] Work Phone: 1(369) 422-862103-03-2025 History of Present illness Narrative* Divya Dudley [...] syndrome on both sides 10/08/2023 Advancing dementia ([facility]/HCC) 10/08/2023 Abdominal pain 09/20/2009 Cervical spondylosis without myelopathy 07/10/2022 Fibromyalgia 09/20/2009 Idiopathic chronic pancreatitis ([facility]/HCC) 05/13/2018 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 region 06/03/2022 Resolved Ambulatory Problems Diagnosis Date Noted No Resolved Ambulatory Problems Past Medical History: Diagnosis Date Acid reflux Brachial neuritis or radiculitis 04/18/2014 Brachial plexus lesion 04/21/2008 Cataract Chronic pancreatitis (CMS/HCC) Disease of thyroid gland ([facility]) Dry eyes Esophageal spasm Headache 04/21/2008 Hypercholesteremia ([facility]) IBS (irritable bowel syndrome) Lupus Migraine ([facility]) Pain in limb 04/21/2008 Thoracic outlet [...] tx with Miles solution. documented in this [facility]02-25-2025 Telephone encounter Note* Telephone Encounter - Divya Dudley MD - 08/09/2024 2:04 PM EST Thursday [facility] [id number] Miscellaneous Notes* Telephone Encounter - Divya Dudley [...] she can get in. documented in this encounterPers[facility] [id number] Telephone encounter Note* Telephone Encounter - Jordana [...] how soon she can get in. [facility] [id number] History of Present illness Narrative* Miguel Ángel [...] Brachial plexus lesion 04/21/2008 Cataract Chronic pancreatitis ([facility]/HCC) Disease of thyroid gland ([facility]) Dry eyes Esophageal spasm Fibromyalgia Headache 04/21/2008 Hypercholesteremia ([facility]) IBS (irritable bowel syndrome) Lupus Migraine ([facility]) Pain in limb 04/21/2008 Thoracic outlet syndrome Tremor, essential 07/20/2008 Past Surgical History: Procedure Laterality Date GALLBLADDER HYSTERECTOMY SHOULDER SURGERY No family history on file. Social History Tobacco Use Smoking status: Never Smokeless tobacco: Never Substance Use Topics Alcohol use: Not Currently Allergies: Aspirin, Theophylline, Sulfamethoxazole-trimethoprim, Celexa [citalopram], Butorphanol, Ciprofloxacin, Etodolac, Hydromorphone, Morphine, Oxycodone-acetaminophen, and Promethazine Vitals: 02/05/25 1412 BP: 132/84 Pulse: 72 SpO2: 99% [...] reflexes are 2+ and symmetric throughout. Coordination: Vrubgz-lw-dfzg testing and rapid alternating movements are normal [...] disease is alsoidentified. -Thyroid stimulating hormone at [facility] on 04/20/2023: Normal Assessment/Plan Diagnoses and all [...] of mental health issues documented in this encounterPershing Memorial [id number] History of Present illness Narrative* Divya Dudley [...] syndrome on both sides 10/08/2023 Advancing dementia ([facility]/HCC) 10/08/2023 Abdominal pain 09/20/2009 Cervical spondylosis without myelopathy 07/10/2022 Fibromyalgia 09/20/2009 Idiopathic chronic pancreatitis ([facility]) 05/13/2018 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 region 06/03/2022 Resolved Ambulatory Problems Diagnosis Date Noted No Resolved Ambulatory Problems Past Medical History: Diagnosis Date Acid reflux Brachial neuritis or radiculitis 04/18/2014 Brachial plexus lesion 04/21/2008 Cataract Chronic pancreatitis ([facility]/HCC) Disease of thyroid gland ([facility]) Dry eyes Esophageal spasm Headache 04/21/2008 Hypercholesteremia ([facility]) IBS (irritable bowel syndrome) Lupus Migraine ([facility]) Pain in limb 04/21/2008 Thoracic outlet [...] evaluation by Dr Mullins. documented in this encounterPershing Memorial [id number] History of Present illness Narrative* Cindy Phan, - 07/27/2023 2:15 PM EST Images from [...] different lens options were explained including the [id number] fees for any upgrades. Intraocular lens (IOL) [...] permeable (RGP) lenses occurred. documented in this encounterPershing Memorial [id number] NoteHNO ID: [id number] Author: Benjamin Moore PA-C Service: ? Author Type: Physician Dredge Worker Type: Progress Notes Filed: 06/23/2022 7:54 AM Note Text: AMBULATORY TELEPHONE VISIT Skip Hong has consented to this telephone encounter. Patient was unable to connect to [facility] Virtual Visit - call to patient to [...] necessary. Total Time Spent: 45 minutes [facility]01-09-2023 History of Present illness Narrative* Benjamin Moore PA-C - 06/23/2022 7:27 AM EST AMBULATORY TELEPHONE VISIT Skip Hong has consented to this telephone encounter. Patient was unable to connect to [facility] Virtual Visit - call to patient to [...] minutes Benjamin Moore PA-C [facility]-2022 NoteHNO ID: [id number] Author: Sangeetha Vaqsuez APRN.INSULATOR TESTER Service: ? Author Type: Nurse Practitioner Type: [...] in person or virtual visit whatever patient preference[facility] 06-04-20[facility] History of Present illness Narrative* Sangeetha Vasquez APRN.INSULATOR TESTER - 06/04/2022 11:10 AM EST Per Triage: [...] Health Provider or Pain Management Provider at [facility]? No If answer is YES please schedule [...] facility where the MRI/CT/myelogram was completed: The [address] [address] MRI/CT/myelogram viewable in Epic: No If not, please provide [phone] to fax in imaging reports for review. Also, please inform patient to hand carry imaging disc to appointment. XR (spine) within 12 months: Yes If YES, please ask for the name/address of the facility where the XR was completed: The [place] [address] [place] [address] Dr. Humphreys's patients: Have you had previous [...] physical therapy was completed Injections: [facility] [address] [place] [address] PT: unable to recall facility Have you [...] where the surgery was completed: Additional Comments [phone] documented in this encounterSalem City Hospital12-20-2022 NoteHNO ID: [id number] Author: Celeste Khalil Research Coordinator Service: ? Author Type: Research Type: Progress Notes Filed: 06/04/2022 11:31 AM Note Text: Patient name: Skip Hong Are you being referred by a [facility] Provider or Pain Management Provider at [facility]? No If answer is YES please schedule [...] facility where the MRI/CT/myelogram was completed: The [place] [id number] MRI/CT/myelogram viewable in Epic: No If not, please provide [phone] to fax in imaging reports for review. Also, please inform patient to hand carry imaging disc to appointment. XR (spine) within 12 months: Yes If YES,? please ask for the name/address of the facility where the XR was completed: [place] [address] Dr. Humphreys's patients: Have you had previous [...] physical therapy was completed Injections: [facility] [address] [place] [address] PT: unable to recall facility Have you [...] where the surgery was completed: Additional Comments [phone] Evaluation note* Encounter Date Diagnosis Assessment Notes [...] and agrees. A referral will be sent [facility] Other evaluation note* Diagnosis Fibromyalgia- Primary Mylagia and myositis, unspecified Cervicalgia documented in this encounter [facility] HospitalEvaluation noteNo InformationNort [employer] Other Evaluation note* Diagnosis Age-related nuclear cataract of both eyes- Primary documented in this encounter [facility]* Diagnosis Age-related nuclear cataract of both eyes documented in this encounter [facility]* Diagnosis Age-related nuclear cataract of both eyes documented in this encounter [facility]* Diagnosis Left facial pain- Primary Headache documented in this encounter [facility] HealthcareEvaluation note* Diagnosis Memory impairment- Primary Memory loss Anxiety Anxiety state, unspecified documented in this encounter [facility] HealthcareEvaluation note* Diagnosis Oral ulcer- Primary Other and unspecified diseases of the oral soft tissues documented in this encounter [facility] HealthcareEvaluation note* Diagnosis Onset Date Resolution Status Admit Date Memory difficulty chronic January 23, 2025 9:13am [facility] Work Phone: Hismnvp general Narrative - Reported* Type Description Date [...] History arthroscopy shoulder Hospitalization History see above Night Up Other Hospital Discharge instructions Additional Instructions Please follow Orthopedic orders s/p surgery left ankle fracture-- *Nonweightbearing for 6 weeks on left ankle *May remove boot daily to gently clean around wound then reapply. [facility] Work Phone: Reklfv for referral (narrative)No reason for referral information available[facility] Work Phone: Renott for visit NarrativeReferral update - pain mangementNort SpinalMotion Other Summary Purpose Family History No Family History Records Found Relationship Condition Age at Onset Recorded Date/T amauri father Unknown mother Unknown Advance Directives No Advanced Directives Records Found Advance Directive Response Recorded Date/ Time Advance Directives No February 10, 2018 2:23pm Reason for Referral Reason DECLINED Evaluate and Treat Neck Pain Diagnosis 1 Neck pain (M54.2) Referral Organization [facility] urosurgery Referring Provider First Name Prasad Referring Provider Last Name Maame Referring Provider Specialty Neurologica l Surgery Referred Organization [facility] Pain Managemen t Referred Provider Bentley Bragg Referred Address [address] [place] [id number] Referred Provider Specialty Pain Medicin e Referral Priority Routine General Notes [facility] 022 08:31:51 AM >Received today and sent P2P Esthela Navarro 06/03/2022 02:35:54 PM >fyi patient declined seeing Dr Bragg, she stated she has returned to her previous PM provider in [facility] 06/03/2022 02:59:27 PM >OK, thank you for [...] Admit Date Family history of Alzheimer's disease [facility] 2024 9:13am Memory difficulty January 23, 2025 9: 13am Closed left trimalleolar fracture February 04, 2025 7:29pm Fibromyalgia February 04, 2025 7: 29pm History of thoracic outlet syndrome [facility] 2024 7:29pm Chief Complaint Admit Date 6 month follow up January 23, 2025 9: 13am L ankle fx February 04, 2025 7: 29pm Z98.890 - Other specified postprocedural states February 21, 2025 7:37am 2 WEEKS February 21, 2025 8:55am Reason for Visit Admit Date Family history of Alzheimer's disease [facility] 2024 9:13am Memory difficulty January 23, 2025 9: 13am Closed left trimalleolar fracture February 04, 2025 7:29pm Fibromyalgia February 04, 2025 7: 29pm History of thoracic outlet syndrome [facility] 2024 7:29pm Closed left trimalleolar fracture Sept[facility] 2024 8:55am Encounter for removal of sutures Septemb er 2024 8:55am History of open reduction an d internal fixation (ORIF) procedure February 21, 2025 8:55am Other specified postprocedural states Se ptember 2024 8:55am Reason for Visit Admit Date Family history of Alzheimer's disease [facility] 2024 9:13am Memory difficulty January 23, 2025 9: 13am Closed left trimalleolar fracture February 04, 2025 7:29pm Fibromyalgia February 04, 2025 7: 29pm History of thoracic outlet syndrome [facility] 2024 7:29pm Arthritis of left foot February 21 8:55am Closed left trimalleolar fracture Septem 2024 8:55am [facility] 8:[facility]am History of open reduction [...] or prosecute any alcohol or drug abuse patient.[facility] the event this information is protected by the Federal Confidentiality of Alcohol and Drug Abuse Patient Records regulations: The Federal rules restrict any use of the information to criminally investigate or prosecute any alcohol or drug abuse patient.[facility] Care Teams (unrecognized sec tion and content) Printing Machine Operator Tape Rules Relationship Specialty Start Date End Date Anitha Mcgregor MD [address] [place] [address] PCP - General 09/07/09 Luli Roy (Hist), MD [address] [place], [place] [id number] Referring Gastroenterology 05/04/18 Printing Machine Operator Tape Rules Relationship Specialty Start Date End Date Anitha Mcgregor MD [address] [place] [address] PCP - General 09/07/09 Luli Roy (Hist), MD [address] [facility], [place] [id number] Referring Gastroenterology 05/04/18 Printing Machine Operator Tape Rules Relationship Specialty Start Date End Date Anitha Mcgregor MD [address] [facility] [place] [phone] PCP - General Family Medicine 07/27/23 Printing Machine Operator Tape Rules Relationship Specialty Start Date End Date Anitha Mcgregor MD [address] [place] [address] PCP - General Family Medicine 07/27/23 Oral Fernandez OD [address] [facility], [place] [id number] Referring Physician Optometry 01/11/24 Printing Machine Operator Tape Rules Relationship Specialty Start Date End Date Anitha Mcgregor MD [address] [place] [address] PCP - General Family Medicine 07/27/23 Oral Fernandez OD [address] [facility], [place] [id number] Referring Physician Optometry 01/11/24 Printing Machine Operator Tape Rules Relationship Specialty Start Date End Date Anitha Mcgregor MD [address] [place] [address] PCP - General Family Medicine 07/27/23 Oral Fernandez OD [address] [facility] [address] Referring Physician Optometry 01/11/24 Printing Machine Operator Tape Rules Relationship Specialty Start Date End Date Anitha Mcgregor MD [address] [facility] [place] [address] PCP - General Family Medicine 07/27/23 Oral Fernandez OD [address] [facility] [place] [address] Referring Physician Optometry 01/11/24 Printing Machine Operator Tape Rules Relationship Specialty Start Date End Date Anitha Mcgregor MD [address] [facility] [place] [address] PCP - General Family Medicine 07/27/23 Oral Fernandez OD [address] [facility] [place] [address] Referring Physician Optometry 01/11/24 Printing Machine Operator Tape Rules Relationship Specialty Start Date End Date Anitha Mcgregor MD [address] [facility] [place] [phone] PCP - General Family Medicine 07/27/23 Oral Fernandez OD [address] [facility] [place] [address] Referring Physician Optometry 01/11/24 Printing Machine Operator Tape Rules Relationship Specialty Start Date End Date Anitha Mcgregor MD [address] [facility] [place] [address] PCP - General Family Medicine 07/27/23 Oral Fernandez OD [address] [facility] [place] [address] Referring Physician Optometry 01/11/24 Printing Machine Operator Tape Rules Relationship Specialty Start Date End Date Anitha Mcgregor MD [address] [facility] [place] [address] PCP - General Family Medicine 07/27/23 Oral Fernandez OD [address] [facility] [place] [address] Referring Physician Optometry 01/11/24 Team Status: Active Member Role Status Valdo Mcgregor MD Primary Care Provider Active Team Status: Inactive Member Role Status Valdo Mcgregor MD Primary Care Provider Active Start: January 23, 2025 End: January 23, 2025 Екатерина Chacon , RAILCAR BRAKE OPERATOR-HIGH RIGGER-C Attending Provider Active Start: January 23, 2025 End: January 23, 2025 Team Status: Active Member Role Status Valdo Mcgregor MD Primary Care Provider Active Start: February 04, 2025 Dax Matt , DO Admit Provider Active Start: February 04, 2025 Dax Matt , Other Provider Active Start: February 04, 2025 Ravin Campoverde MD Attending Provider Active Star t: February 04, 2025 Ravin Campoverde MD Other Provider Active Start: A 2024 Maricruz Tobias MD Other Provider Active [...] section and content) DATE CREATED AUTHOR 06/23/2022 [facility] DATE CREATED AUTHOR AUTHOR'S ORGANIZ ATION 07/02/2022 [facility] DATE CREATED AUTHOR AUTHOR'S ORGANIZ ATION 01/19/2024 [facility] DATE CREATED AUTHOR AUTHOR'S ORGANIZ ATION 01/20/2024 [facility] DATE CREATED AUTHOR AUTHOR'S ORGANIZ ATION 01/27/2024 [facility] DATE CREATED AUTHOR AUTHOR'S ORGANIZ ATION 08/16/2024 [facility] DATE CREATED AUTHOR AUTHOR'S ORGANIZ ATION 02/26/2025 [facility] Goals (unrecognized section and content) [...] BE BASED ON THE PRIMARY CLINICAL RECORDS. [facility] Done In :[employer] provides no warranty or guarantee of the accuracy or completeness of information in this document.
--- NOTE | 2025-03-06 12:57 | MR_ITS ---
[place] [id number] Patient Name: CRISTOBAL CALERO MRN: [id number] date: 1955 Sex: F Assigned Patient Location: LAB Current Patient Location: LAB Accession/Order Number: [id number] Exam Date: 03/06/2025 13:15 Report Date: 03/06/2025 14:57 At the request of: ANITHA RAMEY MD Procedure: MR hip LT wo/w con MR hip LT wo/w con 03/06/2025 2:31 PM SIGNS AND SYMPTOMS: Idiopathic aseptic necrosis of left femur PROTOCOL: Multiplanar multisequence MR images of the left hip with and without IV contrast Contrast: 12 mL of intravenous Dotarem COMPARISON: 02/24/2025 FINDINGS: Alignment: Normal Femoroacetabular impingement anatomy: Pincer: None. Dysplasia: None. Fluid: No joint effusion. Labrum: There is a reticular increased signal intensity underlying the superior and anterior labrum and within the labrum itself on fluid sensitive sequences suspicious for underlying labral pathology. There is accompanying enhancement which is likely inflammatory.. Cartilage: Femoral: There is full thickness chondromalacia. Acetabular: There is partial thickness chondromalacia. Capsule/ligaments: Normal. Muscles/tendons/entheses: Flexors: Normal. Extensors: Normal. Abductors: Normal. Adductors: Normal. Rotators: Normal. Hamstrings: Normal. Bones (other than subarticular marrow): There is serpiginous signal abnormality which is hyperintense on T2 and hypointense on T1-weighted undermining the articular surface of the head of the right femur consistent with avascular necrosis. The articular surface is grossly intact. This measures 1.8 cm in AP dimension by 1.4 cm in medial to lateral dimension. Vessels: Normal. Nerves: Visualized right sciatic and femoral nerves appear normal. Soft tissues: Normal. Viscera: Visualized pelvic structures appear normal. No lymphadenopathy by size criteria. No free fluid in the pelvis. MR/MR hip LT wo/w con IMPRESSION: There is serpiginous signal abnormality which is hyperintense on T2 and hypointense on T1-weighted undermining the articular surface of the head of the right femur consistent with avascular necrosis. The articular surface is grossly intact. This measures 1.8 cm in AP dimension by 1.4 cm in medial to lateral dimension. Findings also suggest chronic labral pathology along the superior and anterior aspect of the labrum of the right hip. Impression dictated by: Josh Shaffer M.D. 03/06/2025 2:57 PM Dictation Location: [place] [address] Electronically authenticated by: [id number] Y Date: 03/06/2025 14:57
[2025-03-06 13:03] LABS: Estimated GFR (African America >60 (>=60 mL/min/1.73m^2); Estimated GFR (Non-African Ame 53 (>=60 mL/min/1.73m^2)
== END 2025-03-06 12:40 | disposition home or self-care (01) ==
LOC: LAB 12:42
PROVIDERS: PCP Family Medicine; Visit Provider Family Medicine
DX: Z01.818 Encounter for other preprocedural examination (principal); M87.052 Idiopathic aseptic necrosis of left femur
CPT/HCPCS: 36415; 73723; 82565; A9575

== ENCOUNTER 2025-03-15 10:11 | Outpatient (OUT) | payer MEDICARE, SELFPAY ==
--- OUTSIDE RECORDS SUMMARY | 2020-09-21 06:00 | XMS_ITS | Continuity of Care Document ---
Author Organization [facility] Address [address] [place] [address] Phone Care Team Providers Care Student Name Role Phone Rnoni Quezada Unavailable Unavailable Allergies, Adverse Reactions, Alerts [...] Diagnoses Date Provider Providers Copied on Encounter [facility], [address] [place], [place], [id number], [place] tel:[phone] COVID ECHD Covid-19 (chief complaint) No Information Diamondi DO Rudolph. [address] [place], [place], [id number], [place]. tel:[phone] [facility], [address] [place], [place], [id number], [place] tel:[phone] COVID ECHD No Information Visci Ronni. [address] [place], [place], [id number], [place]. tel:[phone] Family History Family Member Type Diagnosis Age At Onset No Information Immunizations Vaccine Date Status Comments Moderna COVID administered Source: New Im munization Record Moderna COVID administered Source: New Im munization Record Payers Payer name Insurance type Covered democrat ID Authoriza tion(s) Medicare PPS MB [id number] Medicare PPS MB [id number] Medicare PPS MB [id number] Social History Type Description Quantity Date Captured [...]
--- OUTSIDE RECORDS SUMMARY | 2025-03-01 11:30 | XMS_ITS ---
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 Name Role Phone Noe Mcgregor Primary Care Provider Allergies Allergen (clinical drug [...] all over Drug Allergy Active Substance with 6-lvheqoc-3-methylglu taryl-coenzyme A reductase inhibitor mechanism of action (substance) Statins pancreatitis Drug Allergy Active tramadol Tramadol rash Drug Allergy Active morphine Morphine unknown Drug Allergy Active orphenadrine Orphenadrine Unknown Drug Allergy Active sumatriptan SUMAtriptan low HR Drug Allergy Active Results Component Value Reference Range Notes COVID-19, Flu A+B IH Reviewed date:03/01/2025 04:41:58 PM Interpretation: Performing Lab: Notes/Report: COVID Neg FLU A neg FLU B Neg Control Present REASON FOR VISIT go over meds Medications Medication SIG (Take, Route, Frequency, Duration) Notes Start Date End Date Status valACYclovir HCl 1 GM 1 tablet Orally tid; Duration: 10 days then 1 po Q day forever PRN 07/20/2024 Active Triamcinolone Acetonide 0.1 % 1 application do not rinse afterwards and avoid eating or drinking for 30 minutes Mouth/Throat Q 4 h; Duration: 30 days 06/13/2024 Active Meloxicam 15 MG 1 tablet Orally Once a day; Duration: 30 days 03/01/2025 Active Promethazine HCl 25 MG 1 tablet as neede d Orally q6h; Duration: 5 days PRN 03/07/2024 Active Plavix 75 MG 1 tablet Orally twic e weekly; Duration: 90 days 10/30/2023 Active Omeprazole 20 MG 1 capsule 30 minutes before morning meal Orally Once a day PRN 10/23/2023 Active Nurtec 75 MG 1 tablet on the tong ue and allow to dissolve Orally; Duration: 30 days PRN Active Nitroglycerin 0.4 MG 1 tablet under the tongue and allow to dissolve as needed. Take every 5 minutes up to 3 times if chest pain persists Sublingual Three times a day; Duration: 30 days PRN Active Levothyroxine Sodium 25 MCG 1 tablet in the morning on an empty stomach Orally Once a day; Duration: 30 day(s) 11/03/2024 Active HYDROcodone-Acetaminophen 5-325 MG 1 tablet Orally qid - prn; Duration: 7 05/11/2024 Active Ginseng Active Gabapentin 100 MG 2 capsule Orally am, afternoon and 300mg at bedtime; Duration: 30 days 02/24/2025 Active Social History Tobacco Use: Social History Observation Description Date Details (start date - stop date) Never Smoker NA - NA Tobacco Use/Smoking Question Answer Notes Patient is a nonsmoker Vital Signs Weight 135 lbs 03/01/2025 Height 63 in 03/01/2025 Blood pressure systolic 120 mm Hg 03/01/20 25 Blood pressure diastolic 80 mm Hg 025 BMI 23.91 kg/m2 03/01/2025 Encounters Encounter Location Date Provider Diagnosis [facility] [address] [place] [address] 03/01/2025 Noe Mcgregor Trimalleolar fractur e of ankle, closed, left, initial encounter S82.852A Assessments Encounter Date Diagnosis (ICD Code) Assessment Notes Treatment Notes Treatment Clinical Notes Section Notes 03/01/2025 Trimalleolar fracture of ankle, closed, left, initial encounter (ICD-10 - S82.852A) Plan Of Treatment Medication Medication Name Sig Start Date Stop Date Notes Meloxicam 15 MG 1 tablet Orally Once a day; Duration: 30 days 03/01/2025 Gabapentin 100 MG 2 capsule Orally am, afternoon and 300mg at bedtime; Duration: 30 days 02/24/2025 Medications Administered Medication Instructions Date of Administration Dosage Notes Dexamethasone, 4mg/mL 03/01/2025 8 mg Progress Notes * Pamella HONGOB:1955 ([age] yo F)Acc No.[id number]:03/01/2025 Progress Note Patient: [place] ESTRELLA Provider: Anu Mcgregor ([facility])MD :1955 A ge:70 Y S ex:Female Date:03/01/2025 Address:[address] [place], [place] [id number] Check In:02:50 PM ESTCheck O ut:03:46 PM EST Subjective: * Chief Complaints: * G o over meds * ROS: E ENT: hearing changes d enies. v isual changes d enies.?non-healing mouth sores d enies. s wollen glands or neck lumps d enies. h oarseness d enies. s ore throat d enies. d ifficulty swallowing d enies. n ose bleeds d enies. n juan congestion d enies. e ar ache d enies. e ar discharge?denies. r inging in ears d enies. l ight sensitivity d enies. e ye pain d enies. b lurring d enies. e ye irritation d enies. d ouble vision d enies.?vision loss d enies. G eneral/Constitutional: Sweats: D enies. F atigue d enies. S leep problems d enies. A norexia d enies. M alaise d enies. W eight loss d enies.?Fatigue or Weakness d enies. F ever or Chills d enies. C ardiovascular: Shortness of Breath w/lying flat d enies. L ightheadedness/dizziness d enies. C hest tightness/ heavy pressure d enies. S welling of legs, ankles, or feet d enies. W aking up with shortness of breath d enies. C hest pain denies. P alpitations d enies. W eight gain d enies. R espiratory: Chronic or frequent cough d enies. C oughing up blood?denies. D ifficulty breathing d enies. P roductive cough d enies. S noring?denies. S hortness of breath that awakens from sleep (PND) d enies. C hest pain d enies. S putum production d enies. W heezing d enies. M usculoskeletal: Joint pain d enies. J oint Fluid d enies. B ack pain d enies. K nee pain d enies. N jose pain d enies. J oint Stiffness d enies. M uscle cramps d enies. W eakness of muscles d enies. A rthritis d enies. M uscle aches d enies. P ain in shoulder(s) d enies. S wollen joints d enies. * Active Problem List M54.5 Low back pain Modified On:06/04/2023U Status:confirmed E78.5 Hyperlipidemia Modified On:08/17/2023 Status:confirmed K21.9 GERD (gastroesophage al reflux disease) Modified On:02/13/2023U Status:confirmed M54.12 Cervical radiculopat hy Modified On:04/29/2023U Status:confirmed G56.00 Carpal tunnel syndro me Modified On:02/13/2023U Status:confirmed M85.80 Osteopenia Modified On:02/13/2023U Status:confirmed R42 Vertigo Modified On:03/06/2023U Status:confirmed L30.9 Eczema Modified On:02/13/2023U Status:confirmed K57.90 Diverticulosis Modified On:02/13/2023U Status:confirmed G43.909 Migraine Modified On:02/13/2023U Status:confirmed M54.9 Back pain Modified On:03/26/2023 Status:confirmed K59.00 Constipation Modified On:03/18/2023 Status:confirmed R13.10 Dysphagia Modified On:02/13/2023 Status:confirmed R00.2 Palpitations Modified On:02/13/2023U Status:confirmed M79.7 Fibromyalgia Modified On:02/13/2023 Status:confirmed M47.812 Cervical spondylosis Modified On:02/13/2023U Status:confirmed K63.89 Inflammatory bowel d isease Modified On:02/13/2023 Status:confirmed K58.9 Irritable bowel synd lio (IBS) Modified On:02/13/2023 Status:confirmed I69.854 Hemiparesis of left nondominant side as late effect of other cerebrovascular disease Modified On:02/13/2023 Status:confirmed F41.8 Other specified anxi ety disorders Modified On:08/19/2022 Status:confirmed G43.909 Migraine, unspecifie d, not intractable, without status migrainosus Modified On:08/30/2022U Status:confirmed R10.12 Left upper quadrant abdominal pain Modified On:12/10/2022U Status:confirmed M62.838 Trapezius muscle spa sm Modified On:04/27/2023 Status:confirmed J01.90 Acute sinus infectio n Modified On:05/25/2023U Status:confirmed K12.0 Aphthous ulcer Modified On:06/13/2023U Status:confirmed B02.9 Shingles Modified On:07/29/2023U Status:confirmed R47.01 Aphasia Modified On:07/29/2023U Status:confirmed R41.3 Memory loss Modified On:07/29/2023U Status:confirmed E23.6 Pituitary cyst Modified On:08/19/2023U Status:confirmed F03.90 Dementia Modified On:09/07/2023U Status:confirmed M79.671 Foot pain, right Modified On:10/23/2023U Status:confirmed M19.90 Arthritis Modified On:10/30/2023U Status:confirmed 577.0 Pancreatitis, acute Modified On:11/12/2023U Status:confirmed G90.50 Reflex sympathetic d ystrophy Modified On:05/05/2024U Status:confirmed S03.40XA TMJ (sprain of tempo romandibular joint) Modified On:06/22/2024U Status:confirmed N39.0 Acute UTI Modified On:06/22/2024U Status:confirmed K12.0 Aphthous stomatitis Modified On:08/10/2024U Status:confirmed N18.31 Chronic kidney disea se, stage 3a Modified On:11/03/2024U Status:confirmed E03.9 Hypothyroid Modified On:11/03/2024 Status:confirmed 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, 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, recurrent, 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 Modified On:12/15/2024 Status:confirmed K52.9 Gastroenteritis Modified On:12/15/2024U Status:confirmed R41.3 Memory difficulty Modified On:01/24/2025 Status:confirmed S82.852A Trimalleolar fractur e of ankle, closed, left, initial encounter Modified On:02/06/2025 Status:confirmed * Medical History: * Surgical History: [...] is a n onsmoker * Medications: T akingGabapentin 100 MG Capsule 1 capsule Orally am, afternoon and 300mg at bedtime Ginseng HYDROcodone-Acetaminophen 5-325 MG Tablet 1 tablet Orally qid - prn Levothyroxine Sodium 25 MCG Tablet 1 tablet in the morning on an empty stomach Orally Once a day Nitroglycerin 0.4 MG Tablet Sublingual 1 tablet under the tongue and allow to dissolve as needed. Take every 5 minutes up to 3 times if chest pain persists Sublingual Three times a day , Notes to Pharmacist: PRNNurtec(Rimegepant Sulfate) 75 MG Tablet Disintegrating 1 tablet on the tongue and allow to dissolve Orally , Notes to Pharmacist: PRNOmeprazole 20 MG Capsule Delayed Release 1 capsule 30 minutes before morning meal Orally Once a day , Notes to Pharmacist: PRNPlavix(Clopidogrel Bisulfate) 75 MG Tablet 1 tablet Orally twice weekly Promethazine HCl 25 MG Tablet 1 tablet as needed Orally q6h , Notes to Pharmacist: PRNTriamcinolone Acetonide 0.1 % Paste 1 application do not rinse afterwards and avoid eating or drinking for 30 minutes Mouth/Throat Q 4 h valACYclovir HCl 1 GM Tablet 1 tablet Orally tid then 1 po Q day forever, Notes to Pharmacist: PRNTaking Gabapentin 100 MG Capsule 1 capsule Orally am, afternoon and 300mg at bedtime Taking Ginseng Taking HYDROcodone-Acetaminophen 5-325 MG Tablet 1 tablet Orally qid - prn Taking Levothyroxine Sodium 25 MCG Tablet 1 tablet in the morning on an empty stomach Orally Once a day Taking Nitroglycerin 0.4 MG Tablet Sublingual 1 tablet under the tongue and allow to dissolve as needed. Take every 5 minutes up to 3 times if chest pain persists Sublingual Three times a day , Notes to Pharmacist: PRNTaking Nurtec(Rimegepant Sulfate) 75 MG Tablet Disintegrating 1 tablet on the tongue and allow to dissolve Orally , Notes to Pharmacist: PRNTaking Omeprazole 20 MG Capsule Delayed Release 1 capsule 30 minutes before morning meal Orally Once a day , Notes to Pharmacist: PRNTaking Plavix(Clopidogrel Bisulfate) 75 MG Tablet 1 tablet Orally twice weekly Taking Promethazine HCl 25 MG Tablet 1 tablet as needed Orally q6h , Notes to Pharmacist: PRNTaking Triamcinolone Acetonide 0.1 % Paste 1 application do not rinse afterwards and avoid eating or drinking for 30 minutes Mouth/Throat Q 4 h Taking valACYclovir HCl 1 GM Tablet 1 tablet Orally tid then 1 po Q day forever, Notes to Pharmacist: PRNDiscontinuedDepakote(Divalproex Sodium) 125 MG Tablet Delayed Release 1 tablet Orally Twice a day Dicyclomine HCl 20 MG Tablet 1 tablet Orally QID Liothyronine Sodium 5 MCG Tablet TAKE 1 TABLET ONCE DAILY ANGELIKA EMPTY STOMACH Naratriptan HCl 1 MG Tablet 1 tablet Orally Twice a day Protonix(Pantoprazole Sodium) 40 MG Tablet Delayed Release 1 tablet Orally Once a day Valium(diazePAM) 5 MG Tablet 1 tablet as needed Orally tid Medication List reviewed and reconciled with the patientDiscontinued Depakote(Divalproex Sodium) 125 MG Tablet Delayed Release 1 tablet Orally Twice a day Discontinued Dicyclomine HCl 20 MG Tablet 1 tablet Orally QID Discontinued Liothyronine Sodium 5 MCG Tablet TAKE 1 TABLET ONCE DAILY ANGELIKA EMPTY STOMACH Discontinued Naratriptan HCl 1 MG Tablet 1 tablet Orally Twice a day Discontinued Protonix(Pantoprazole Sodium) 40 MG Tablet Delayed Release 1 tablet Orally Once a day Discontinued Valium(diazePAM) 5 MG Tablet 1 tablet as [...] AllergyBactrimSUMAtriptan: low HR - Side EffectsDicyclomine HCl: Dizzinessno[Allergies Verified] Objective: * Vitals: W t:135lbs, Ht: 63 in, BP:120/80mm Hg, BMI:23.91Index, Ht-cm: 160.02 cm, Wt-k.24 kg. * Examination: P hysical Exam: GENERAL: w ell developed, well nourished, in no acute distress. HEAD: n ormocephalic/atraumatic. EYES: p upils equal, round and reactive to light, conjunctivae and sclerae normal. EARS: n o deformity or lesion of external ear, canals and TM appear normal bilaterally, TM's intact, not inflamed with normal light reflex, hearing grossly normal to conversational speech. NOSE: n o deformity, discharge, inflammation, or lesions.? MOUTH: m ucous membranes moist, normal oropharynx and posterior pharynx without lesions or exudates, tongue normal, dentition normal. NECK: n jose supple, no masses or palpable cervical nodes, trachea midline, thyroid without nodules, masses, tenderness, or enlargement. CHEST: n o chest wall deformity, no chest wall tenderness.? LUNGS: n ormal respiratory effort and clear to auscultation, no wheezes, rales, or rhonchi, good air exchange. CARDIO: r egular rate and rhythm, normal S1 and S2, nor murmur, rub, or gallop. PULSES: n ormal capillary refill. ABDOMEN: s oft, non-distended, non-tender, no masses. MUSCULOSKELETAL: n o deformity or scoliosis noted, normal range of motion, joints normal, no erythema, edema, effusion, or ecchymosis. EXTREMITY: n o clubbing, cyanosis, edema, or deformity with normal ROM in both upper and lower bilateral extremities. NEUROLOGIC: g rossly normal. SKIN: n o rashes, ulcerations, or suspicious lesions. LYMPH NODES: n o cervical adenopathy, nodes normal. MENTAL STATUS: a lert and oriented x3, normal mood and affect. Assessment: * Assessment: 1. T rimalleolar fracture of ankle, closed, left, initial encounter - S82.322A (Primary) ? Plan: * Treatment: * Therapeutic Injections: Dexamethasone, 4mg/mL : 8 mg (Route: Intramuscular) given by MARIE Diaz on left deltoid (Trimalleolar fracture of ankle, closed, left, initial encounter) * Labs: * L ab: COVID-19, Flu A+B IH (Collection Date & Time - 03/01/2025) Value Reference Range C OVID Neg * F ODESSA A neg * F ODESSA B Neg * C ontrol Present * Procedure Codes: 9 6372 THERAP.INJ. OF MED. INTRAMUSCULAR OR [id number] Dexamethasone, 4mg/mL, Units: 2.00 95030 INFECTIOUS AGENT ANTIGEN COVID 19, Modifiers: QW * * Sign off status: Completed Visit Status: C HK (Check Out) true * Provider: Anu Mcgregor ([facility])MD Date: 0 03/01/2025 Generated for Printi ng/Faxing/eTransmitting on: 1 10:13 AM EDT History and Physical Notes * Examination Category Sub-Category Detail Notes Category Not es Physical Exam GENERAL: well developed, well nourished, in no acute distress HEAD: normocephalic/atraum atic EYES: pupils equal, round and reactive to light, conjunctivae and sclerae normal EARS: no deformity or lesi on of external ear, canals and TM appear normal bilaterally, TM's intact, not inflamed with normal light reflex, hearing grossly normal to conversational speech NOSE: no deformity, discha rge, inflammation, or lesions MOUTH: mucous membranes dustin st, normal oropharynx and posterior pharynx without lesions or exudates, tongue normal, dentition normal NECK: neck supple, no mass es or palpable cervical nodes, trachea midline, thyroid without nodules, masses, tenderness, or enlargement CHEST: no chest wall deform ity, no chest wall tenderness LUNGS: normal respiratory e ffort and clear to auscultation, no wheezes, rales, or rhonchi, good air exchange CARDIO: regular rate and rhy thm, normal S1 and S2, nor murmur, rub, or gallop PULSES: normal capillary ref ill ABDOMEN: soft, non-distended, non-tender, no masses RECTAL: MUSCULOSKELETAL: no deformity or scol iosis noted, normal range of motion, joints normal, no erythema, edema, effusion, or ecchymosis EXTREMITY: no clubbing, cyanosi s, edema, or deformity with normal ROM in both upper and lower bilateral extremities NEUROLOGIC: grossly normal SKIN: no rashes, ulceratio ns, or suspicious lesions LYMPH NODES: no cervical adenopat hy, nodes normal MENTAL STATUS: alert and oriented x 3, normal mood and affect
--- OUTSIDE RECORDS SUMMARY | 2025-03-06 06:45 | XMS_ITS ---
Author Organization [facility] in [place] Address [address] [place] [address] Care Team Providers Care Still Cleaner Tube Name Role Phone Noe Mcgregor Primary Care Provider [phone] Allergies Allergen (clinical drug ingredient) Drug/Non Drug [...] all over Drug Allergy Active Substance with 3-kpghuzc-5-methylglu taryl-coenzyme A reductase inhibitor mechanism of action (substance) Statins pancreatitis Drug Allergy Active tramadol Tramadol rash Drug Allergy Active morphine Morphine unknown Drug Allergy Active orphenadrine Orphenadrine Unknown Drug Allergy Active sumatriptan SUMAtriptan low HR Drug Allergy Active REASON FOR VISIT Presents to office with . Has fallen twice. Since the second fall, she is having left hip and groin pain, Has follow up with Dr. Campoverde tomorrow for f/u on the ankle surgery Medications Medication SIG (Take, Route, Frequency, Duration) Notes Start Date End Date Status Triamcinolone Acetonide 0.1 % 1 application do not rinse afterwards and avoid eating or drinking for 30 minutes Mouth/Throat Q 4 h; Duration: 30 days 06/13/2024 Active valACYclovir HCl 1 GM 1 tablet Orally tid; Duration: 10 days then 1 po Q day forever PRN 07/20/2024 Active HYDROcodone-Acetaminophen 5-325 MG 1 tablet Orally qid - prn; Duration: 7 03/06/2025 Active Promethazine HCl 25 MG 1 tablet as neede d Orally q6h; Duration: 5 days PRN 03/07/2024 Active Plavix 75 MG 1 tablet Orally twic e weekly; Duration: 90 days 10/30/2023 Active Levothyroxine Sodium 25 MCG 1 tablet in the morning on an empty stomach Orally Once a day; Duration: 30 day(s) 11/03/2024 Active Nitroglycerin 0.4 MG 1 tablet under the tongue and allow to dissolve as needed. Take every 5 minutes up to 3 times if chest pain persists Sublingual Three times a day; Duration: 30 days PRN Active Meloxicam 15 MG 1 tablet Orally Once a day; Duration: 30 days 03/01/2025 Active Omeprazole 20 MG 1 capsule 30 minutes before morning meal Orally Once a day PRN 10/23/2023 Active Nurtec 75 MG 1 tablet on the tong ue and allow to dissolve Orally; Duration: 30 days PRN Active Gabapentin 100 MG 2 capsule Orally am, afternoon and 300mg at bedtime; Duration: 30 days 02/24/2025 Active Ginseng Active Social History Tobacco Use: Social History Observation Description Date Details (start date - stop date) Never Smoker NA - NA Tobacco Use/Smoking Question Answer Notes Patient is a nonsmoker Problems Problem Type SNOMED Code ICD Code Onset Dates Problem Status W/U Status Risk Notes Problem Arthralgia of the pelvic region and thigh (788646551) Left hip pain (M25.552) Active confirmed Vital Signs Height 63 in 03/06/2025 Blood pressure systolic 118 mm Hg 03/06/20 25 Blood pressure diastolic 62 mm Hg 025 Encounters Encounter Location Date Provider Diagnosis [facility] [address] [place] [address] 03/06/2025 Noe Hoy Trimalleolar fractur e of ankle, closed, left, initial encounter S82.852A and Left hip pain M25.552 Assessments Encounter Date Diagnosis (ICD Code) Assessment Notes Treatment Notes Treatment Clinical Notes Section Notes 03/06/2025 Trimalleolar fracture of ankle, closed, left, initial encounter (ICD-10 - S82.852A) 03/06/2025 Left hip pain (ICD-10 - M25.552) Left hip CT needed stat for possibel Avasc ular necrosis of femoral heal and pain worsening Plan Of Treatment Medication Medication Name Sig Start Date Stop Date Notes HYDROcodone-Acetaminophen 5- 325 MG 1 tablet Orally qid - prn; Duration: 7 03/06/2025 Treatment Notes Assessment Notes Left hip pain Left hip CT needed s tat for possibel Avasc ular necrosis of femoral heal and pain worsening Pending Test Test Name Order Date MRI HIP LT WO CON 03/06/2025 CT HIP LEFT W CONTRAST 03/06/2025 Medications Administered Medication Instructions Date of Administration Dosage Notes Triamcinolone 40 mg/ml 03/06/2025 120 mg Ketorolac Tromethamine 03/06/2025 60 mg Progress Notes * Pamella HONGOB:1955 ([age] yo F)Acc No.[id number]:03/06/2025 Progress Note Patient: Skip ESTRELLA Provider: Anu Mcgregor ([facility])MD :1955 A ge:70 Y S ex:Female Date:03/06/2025 Address:[address] [place], [place] [id number] Check In:10:35 AM ESTCheck O ut:11:45 AM EST Subjective: * Chief Complaints: * P resents to office with . Has fallen twice. Since the second fall, she is having left hip and groin painHas follow up with Dr. Campoverde tomorrow for f/u on the ankle surgery * HPI: G eneral: Second fall - at [facility] - doisucssed ankle - MOr pain in hip. * Active Problem List M54.5 Low back pain Modified On:06/04/2023W/U Status:confirmed E78.5 Hyperlipidemia Modified On:08/17/2023W/U Status:confirmed K21.9 GERD (gastroesophage al reflux disease) Modified On:09 Status:confirmed M54.12 Cervical radiculopat hy Modified On:04/29/2023 Status:confirmed G56.00 Carpal tunnel syndro me Modified [...] Status:confirmed J01.90 Acute sinus infectio n Modified On:12/11/2023W/U Status:confirmed K12.0 Aphthous ulcer Modified On:06/13/2023U Status:confirmed [...] 3a Modified On:11/03/2024U Status:confirmed E03.9 Hypothyroid Modified On:11/03/2024U Status:confirmed 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, 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 Brownlee 06/2018Epidural Steroid Inj C-Spine ilateral C5-C7 Medial Branch Block ins, plates, screws left ankle 02/06/25 * Hospitalization/Major Diagno stic Procedure: s ee [...] * Medications: T akingGabapentin 100 MG Capsule 2 capsule Orally am, afternoon and 300mg at bedtime Ginseng HYDROcodone-Acetaminophen 5-325 MG Tablet 1 tablet Orally qid - prn Levothyroxine Sodium 25 MCG Tablet 1 tablet in the morning on an empty stomach Orally Once a day Meloxicam 15 MG Tablet 1 tablet Orally Once a day Nitroglycerin 0.4 MG [...] po Q day forever, Notes to Pharmacist: PRNMedication List reviewed and reconciled with the patientTaking Gabapentin 100 MG Capsule 2 capsule Orally am, afternoon and 300mg at bedtime Taking Ginseng Taking HYDROcodone-Acetaminophen 5-325 MG Tablet 1 tablet Orally qid - prn Taking Levothyroxine Sodium 25 MCG Tablet 1 tablet in the morning on an empty stomach Orally Once a day Taking Meloxicam 15 MG Tablet 1 tablet Orally Once a day Taking Nitroglycerin 0.4 [...] po Q day forever, Notes to Pharmacist: PRNMedication List reviewed and reconciled with the patient [...] HCl: Dizzinessno[Allergies Verified] Objective: * Vitals: W t: Not Taken - Patient Unable, Ht: 63 in, BP:118/62mm Hg. * Examination: A bdomen Exam:: P oor rom in left dhip due to pain stilw tih leg pain - neg homans. Assessment: * Assessment: 1. T rimalleolar fracture of ankle, closed, left, initial encounter - S82.102A (Primary) ? 2 . L eft hip pain - M25.552 Plan: * Treatment: 2.?Left hip pain?Imaging: MRI HIP LT WO CON Notes: Left hip CT needed stat for possibel Avasc ular necrosis of femoral heal and pain worsening ? * Therapeutic Injections: Triamcinolone 40 mg/ml : 120 mg (Route: Intramuscular) given by Tanesha Lott , MR on left gluteus (Trimalleolar fracture of ankle, closed, left, initial encounter, Left hip pain) ? Ketorolac Tromethamine : 60 mg (Route: Intramuscular) given by Tanesha Lott , MR on left gluteus (Left hip pain) * Procedure Codes: 9 6372 THERAP.INJ. OF MED. INTRAMUSCULAR OR [id number] TMC ACET,PER 10MG., Units: 12.00 J1885 TORADOL, PER 15 MG, Units: 4.00 , Modifiers: JZ * Preventive Medicine: Screenings/Counseling: F ALL RISK SCREENING Fall Risk Assessment: T wo or more falls with injury in the past year Are you afraid of falling? Y es * * Sign off status: Completed Visit Status: C HK (Check Out) true * Provider: Anu Mcgregor ([facility])MD Date: 0 03/06/2025 Generated for Sarahi gema/Hal/eTransmitting on: 1 10:15 AM EDT History and Physical Notes * HPI (History of Present Illness) Category Sub-Category Detail Notes Category Not es General Second fall - at [facility] - doisucssed ankle - MOr pain in hip Examination Category Sub-Category Detail Notes Category Not es Abdomen Exam: Poor rom in left dhip due to pain stilw tih leg pain - neg homans
--- OUTSIDE RECORDS SUMMARY | 2025-03-06 08:16 | XMS_ITS ---
Author Organization [facility] in [place] Address [address] [place] [address] Care Team Providers Care Road Passenger Firer Name Role Phone Noe Mcgregor Primary Care Provider REASON FOR VISIT STAT precert MRI- Encounters Encounter Location Date Provider Diagnosis [facility] [address] [place] [address] 03/06/2025 Noe Mcgregor Preprocedural examination Z01.818 Assessments Encounter Date Diagnosis (ICD Code) Assessment Notes Treatment Notes Treatment Clinical Notes Section Notes 03/06/2025 Preprocedural examination (ICD-10 - Z01.818) Plan Of Treatment Pending Test Test Name Order Date CREATININE 03/06/2025 Progress Notes * Pamella HONGOB:1955 ([age] yo F)Acc No.[id number]:03/06/2025 Patient: Skip ESTRELLA :1955 A ge:70 Y S ex:Female Address:[address] [place] [address], [address] Subjective: * Chief Complaints: * S TAT precert MRI- * Medical History: * Surgical History: * Hospitalization/Major Diagno stic Procedure: * Medications: Objective: * Vitals: * Physical Examination: Assessment: * Assessment: 1. P reprocedural examination - Z01.818 (Primary) Plan: * Treatment: * Procedure Codes: * true * Date: Generated for Printi ng/Faxing/eTransmitting on: 10:14 AM EDT
--- OUTSIDE RECORDS SUMMARY | 2025-03-07 09:15 | XMS_ITS ---
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 Name Role Phone DuncanNoe ebnnett Primary Care Provider [phone] Reason For Referral Diagnosis 1 Senile osteoporosis (M81.0) Referral Organization [facility] Referring Provider First Name Noe Referring Provider Last Name Meche Referring Provider Speciality Family Med icine Referred Provider Tunde Vásquez Referred Provider Specialty Orthopedic S urgery Referral Priority Routine REASON FOR VISIT referral and bone density Problems Problem Type SNOMED Code ICD Code Onset Dates Problem Status W/U Status Risk Notes Problem Senile osteoporosis (35205055) Senile osteoporosis (M81.0) Active confirmed Problem Aseptic necrosis of bone of left hip ([id number] 08) Aseptic necrosis of bone of left hip (M87.052) Active confirmed Encounters Encounter Location Date Provider Diagnosis [facility] [address] [place] [address] 03/07/2025 Noe Mcgregor Senile osteoporosis M81.0 and Aseptic necrosis of bone of left hip M87.052 Assessments Encounter Date Diagnosis (ICD Code) Assessment Notes Treatment Notes Treatment Clinical Notes Section Notes 03/07/2025 Senile osteoporosis (ICD-10 - M81.0) 03/07/2025 Aseptic necrosis of bone of left hip (ICD-10 - M87.052) Plan Of Treatment Pending Test Test Name Order Date XR DEXA BONE DENSITY 03/07/2025 Referrals Referral Date Details 03/07/2025 03/07/2025Tunde Progress Notes * Lay HONG:1955 ([age] yo F)Acc No.[id number]:03/07/2025 Patient: Skip ESTRELLA :1955 A ge:70 Y S ex:Female Address:[address] [place] [address], [phone] Subjective: * Chief Complaints: * R eferral and bone density * Medical History: * Surgical History: * Hospitalization/Major Diagno stic Procedure: * Medications: Objective: * Vitals: * Physical Examination: Assessment: * Assessment: 1. S enile osteoporosis - M81.0 (Primary) 2 . A septic necrosis of bone of left hip - M87.052 Plan: * Treatment: * Procedure Codes: * true * Date: Generated for Garrett ribeiro/Hal/Michelleitting on: 10:14 AM EDT Consultation Request Notes Referral Date Referring Provider Referred Provider Not es 03/07/2025 Noe Mcgregor George
--- OUTSIDE RECORDS SUMMARY | 2025-03-07 09:22 | XMS_ITS ---
Author Name Auto Generated Organization OHIP Care Team Providers Care Gluer Machine Setup Operator Name Role Phone Min Mcgregor Primary Care Unavailable Ravin Campoverde Attending Unavailable Ravin Campoverde Admitting Unavailable Min Mcgregor Primary Care Unavailable Ravin Campoverde Attending Unavailable Gilles, Ravin Admitting Unavailable Ravin Campoverde Consulting Unavailable Dax Matt Admitting UnavailHeath Lu Attending Unavailab Min Krueger Primary Care Unavailable Maricruz Tobias Consulting Unavailable Clint Sotelo Consulting Unavailable Ryan Henderson II Consulting UnavailSteven Paez Consulting Unavailable Min Mcgregor Primary Care Unavailable Ravin Campoverde Attending Unavailable Gilles, Ravin Admitting Unavailable MIGUEL ÁNGEL HER Attending Unavailable DIVYA DUDLEY Attending Unavailable DIVYA DUDLEY Attending Unavailable PROBLEMS DATE TYPE CONDITION / CODE ATTENDING STATUS [facility] 02/23/2025 Unknown Pain in left low er leg / M79.662(ICD-10) [place], [facility] 02/21/2025 Unknown Other specified postprocedural states / Z98.890(ICD-10) Gilles [facility] 02/21/2025 Unknown Displaced trimal leolar fracture of left lower leg, initial encounter for closed fracture / S82.852A(ICD-10) Gilles [facility] 02/21/2025 Unknown Pain in left mayela t / M79.672(ICD-10) [facility] Unknown Hormone replacem ent therapy / Z79.890(ICD-10) [facility] Unknown Personal history of other diseases of the nervous system and sense organs / Z86.69(ICD-10) [facility] 02/04/2025 Unknown Fibromyalgia / M79.7(ICD-10) [facility] 02/04/2025 Unknown Migraine, unspec ified, not intractable, without status migrainosus / G43.909(ICD-10) [facility] 02/04/2025 Unknown Irritable bowel syndrome, unspecified / K58.9(ICD-10) [facility] PROCEDURES No Procedure Records Found RESULTS XR ANKLE LT MIN 3V* Observed: 03/07/2025 3:56 PM Status: COMPLETED Source: [facility] [address] [place] [address] XRay Report Signed Patient: Skip Hong MR#: [id number] : 1955 Acct:[id number] Age/Sex: 70 / F ADM Date: 03/07/25 Loc: [facility] Room: Type: [facility] Attending Dr: Ravin Campoverde MD Copies to: Ravin Campoverde MD Ordering Provider: Ravin Campoverde MD Date of Service: 03/07/25 XR/XR ankle LT min 3V*: Z98.890 - Other specified postprocedural states LEFT ANKLE - 3 views CLINICAL HISTORY: Left ankle pain radiates to foot for weeks. Follow-up ORIF COMPARISON: Left ankle 02/21/2025 FINDINGS: Hardware fixation involving the distal tibia and fibula without evidence of hardware complication. Fracture lines are less conspicuous suggestive of healing response. Ankle mortise appears intact. Mild soft tissue swelling. XR/XR ankle LT min 3V* IMPRESSION: HEALING FRACTURES. Impression dictated by: Alex Gleason Jr., DKimOKim 03/07/2025 3:57 PM Dictation Location: [place] [address] Transcribed By: [facility] 03/07/25 1557 Dictated By: Alex Gleason Jr, DO 03/07/25 1556 Signed By: <Electronically signed by Alex Gleason Jr, DO in OV> 03/07/25 155 US VENOUS DUPLEX LE BI Observed: 025 7:46 AM Status: COMPLETED Source: [place] [address] Ultrasound Report Signed Patient: Skip Hong MR#: [id number] : 1955 Acct:[id number] Age/Sex: 70 / F ADM Date: 02/23/25 Loc: Room: Type: [facility] Attending Dr: Ravin Campoverde MD Ordering Provider: [...] Melgar MD,FACS,FSVS 02/24/2025 7:47 AM Dictation Location: [place] [address] Tech: Citlaly Olmedo Transcribed By: PWS 02/24/25 0747 Dictated By: Shimon Melgar MD 02/24/25 0746 Signed By: <Electronically signed by Shimon Melgar MD in OV> 02/24/25 0747 XR FOOT LT MIN 3V* Observed: 02/21/2025 11:16 AM Status: COMPLETED Source: [facility] [address] [place] [address] XRay Report Signed Patient: Skip Hong MR#: [id number] : 1955 Acct:[id number] Age/Sex: 70 / F ADM Date: 02/21/25 Loc: [facility] Room: Type: [facility] Attending Dr: Ravin Campoverde MD Copies to: Ravin Campoverde MD Ordering Provider: Ravin Campoverde MD Date of Service: 02/21/25 XR/XR ankle LT min 3V*: Z98.890 - Other specified postprocedural states ([id number]) XR/XR foot LT min 3V*: M79.672 - [...] Jr., D.OKim 02/21/2025 11:18 AM Dictation Location: [place] [address] Transcribed By: LENA 02/21/25 1118 Dictated By: Alex Gleason Jr, DO 02/21/25 1116 Signed By: <Electronically signed by Alex Gleason Jr, DO in OV> 02/21/25 1118 XR ANKLE LT 2V Observed: 02/09/2025 1:19 PM Status: COMPLETED Source: [facility] Main [address] [address] XRay Report Signed Patient: Skip Hong MR#: [id number] : 1955 Acct:[id number] Age/Sex: 70 / F ADM Date: 02/04/25 Loc: Room: [address] [place] [address] Type: DIS IN Attending Dr: Heath Saavedra MD Copies to: MD Ravin Mejia MD Ordering Provider: Ravin Campovrede MD Date of Service: 02/06/25 XR/XR ankle LT 2V: LEFT ANKLE ORIF Intraoperative study. Reason for exam: ORIF left ankle Findings: 10 images were obtained intraoperatively. Hardware was placed Cumulative Air Kerma in mGy: 1.90 mGy XR/XR ankle LT 2V Impression: Intraoperative study. Impression dictated by: Alex Gleason Jr., D.OKim 02/09/2025 1:19 PM Dictation Location: [place] [address] Transcribed By: [facility] 02/09/25 1319 Dictated By: Alex Gleason Jr, DO 02/09/25 1319 Signed By: <Electronically signed by Alex Gleason Jr, DO in OV> 02/09/25 1319 BASIC METABOLIC PANEL Collected: 2024 11:33 AM Status: F Source: [facility] TYPE CODE TESTS RESULT OUT OF RANGE REFERENCE UNITS LAB GLU Glucose 111 High 70-100 mg/dL Result Comment: Random Gluco se Reference Range is dependent on time and content of last meal. Glucose of more than 200 mg/dL in a nonstressed, ambulatory subject supports the diagnosis of Diabetes Mellitus. ADA recommended reference range LAB BUN Blood Urea Nitrogen 11 Normal 7-25 mg/dL LAB CREATT Creatinine 0.84 Normal 0.60-1.20 mg/dL LAB GFReNR Estimated GFR >60.0 LAB NA Sodium 135 Low 136-145 mmol/L LAB K Potassium 4.5 Normal 3.5-5.1 mmol/L Result Comment: Hemolysis is present at a level that could interfere with the result. Contact lab if redraw is required LAB CL Chloride 102 Normal 98-107 mmol/L LAB CO2 Carbon Dioxide 24.9 Normal 21.0-31.0 mmol/L LAB GAP Anion Gap 12.6 Normal 6.0-15.0 LAB CA Calcium 9.1 Normal 8.6-10.3 mg/dL LAB CRCLPHA Creatinine Clr Calc Pharmacy 56.88 Result Comment: PERFORMED BY : [facility] [address] [place] [id number] PATHOLOGIST DIGITAL LIBRARIAN MELVIN RICHARDS M.D. Performed By: #### SCAN CBC, [facility] #### [facility] [address] SCAN AND CBC Collected: 02/07/2025 11:33 AM Status: F Source: [facility] TYPE CODE TESTS RESULT OUT OF RANGE REFERENCE UNITS LAB WBC White Blood Count 15.1 High 3.8-11.6 [CFU]/mL LAB UNWBC Uncorrected WBC 15.1 High 3.8-11.6 10*3/uL LAB RBC Red Blood Count 4.09 Normal 3.60-5.00 10*6/u L LAB HGB Hemoglobin 12.4 Normal 11.8-15.4 g/dL LAB HCT Hematocrit 36.3 Normal 34.0-46.4 % LAB MCV Mean Corpuscular Volume 88.8 Normal 80-100 fL LAB MCH Mean Corpuscular Hemoglobin 30.3 Normal 24.7-34.3 pg LAB MCHC Mean Corpuscular HGB Conc 34.1 Normal 32.0-35.0 g/dL LAB RDW Red Cell Distribution Width 13.7 Normal 11.9-15.3 % LAB PLT Platelet Count 334 Normal 150-450 10*3/uL LAB MPV Mean Platelet Volume 7.7 Normal 6.3-10.7 fL LAB NE% Neutrophils % (Auto) 77.4 . % LAB LY% Lymphocytes % (Auto) 9.6 . % LAB MO% Monocytes % (Auto) 12.6 . % LAB EO% Eosinophils % (Auto) 0.0 . % LAB BA% Basophils % (Auto) 0.4 . % LAB NRBC% NRBC% 0.1 Normal 0-0.5 /100{WBC} LAB NE# Neutrophils # (Auto) 11.7 High 1.8-7.7 10*3/uL LAB LY# Lymphocytes # (Auto) 1.5 Normal 1.00-4.8 10*3/uL LAB MO# Monocytes # (Auto) 1.9 High 0.0-0.8 10*3/uL LAB EO# Eosinophils # (Auto) 0.0 Normal 0.0-0.45 10*3/uL LAB BA# Basophils # (Auto) 0.1 Normal 0.0-0.2 10*3/uL LAB ANISO Anisocytosis Slight LAB MICR Microcytosis Slight LAB PLT EST Platelet Estimate Normal Normal LAB PLTM Platelet Morphology Normal Normal Result Comment: PERFORMED BY : [place] [address] PATHOLOGIST DIGITAL LIBRARIAN MELVIN RICHARDS M.D. Performed By: #### SCAN CBC, [facility] #### [facility] [address] [place] [address] CT ANKLE LT WO CON Observed: 02/05/2025 4:36 PM Status: COMPLETED Source: [facility] [place] [address] CT Scan Report Signed Patient: Skip Hong MR#: [id number] : 1955 Acct:[id number] Age/Sex: 70 / F ADM Date: 02/04/25 Loc: Room: [address] [place] [address] Type: ADM IN Attending Dr: Dax Matt [...] ankle as described above. Impression dictated by: Josh Shaffer M.D. 02/05/2025 4:39 PM Dictation Location: [facility] Transcribed By: [facility] 02/05/25 163 Dictated By: Josh Shaffer II, MD 02/05/25 163 Signed By: <Electronically signed by Josh Shaffer II, MD in OV> 02/05/25 1639 ECG 12 LEAD ECG Observed: 02/05/2025 8:44 AM Status: COMPLETED Source: [facility] [place] [address] Electrocardiograph Report Signed Patient: Skip Hong MR#: [id number] : 1955 Acct:[id number] Age/Sex: 70 / F ADM Date: 02/04/25 Loc: Room: [address] [place] [address] Type: ADM IN Attending Dr: Dax Matt [...] By Cindy Forrester MD 0 02/05/25 0949 BASIC METABOLIC PANEL Collected: 02/04/2025 8:32 PM Status: F Source: [facility] TYPE CODE TESTS RESULT OUT OF RANGE REFERENCE UNITS LAB GLU Glucose 108 High 70-100 mg/dL Result Comment: Random Gluco se Reference Range is dependent on time and content of last meal. Glucose of more than 200 mg/dL in a nonstressed, ambulatory subject supports the diagnosis of Diabetes Mellitus. ADA recommended reference range LAB BUN Blood Urea Nitrogen 12 Normal 7-25 mg/dL LAB CREATT Creatinine 0.96 Normal 0.60-1.20 mg/dL LAB GFReNR Estimated GFR >60.0 LAB NA Sodium 142 Normal 136-145 mmol/L LAB K Potassium 3.6 Normal 3.5-5.1 mmol/L LAB CL Chloride 112 High 98-107 mmol/L LAB CO2 Carbon Dioxide 23.0 Normal 21.0-31.0 mmol/L LAB GAP Anion Gap 10.6 Normal 6.0-15.0 LAB CA Calcium 8.9 Normal 8.6-10.3 mg/dL LAB CRCLPHA Creatinine Clr Calc Pharmacy 50.22 Performed By: #### [id number], PTT, MG, BMP, CBC, PT #### [facility] [address] [place] [id number] [place] MAGNESIUM Collected: 8:32 PM Status: F Source: [facility] TYPE CODE TESTS RESULT OUT OF RANGE REFERENCE UNITS LAB MG Magnesium 1.9 Normal 1.9-2.7 mg/dL Performed By: #### [id number], PTT, MG, BMP, CBC, PT #### [facility] [address] [place] [address] [place] VITAMIN D 25 HYDROXY TOTAL Collected: 02/04/2025 8:32 PM Status: F Source: [facility] TYPE CODE TESTS RESULT OUT OF RANGE REFERENCE UNITS LAB [id number] Vitamin D 25 Hydroxy Total 22.5 Low 30-100 ng/mL Result Comment: VITAMIN D ST ATUS 25(OH)VITAMIN D RANGE (ng/mL) Deficient <20 Insufficient 20 to <30 Sufficient 30 to 100 Reference: Siddhartha Couchey [place], Gladys HOUSTON, et al. Evaluation,treatment, and prevention of vitamin D deficiency; an Endocrine Society clinical practice guideline. JCEM. 2010; 96(7):1911-30. PERFORMED BY: [facility] [address] [place] [address] PATHOLOGIST DIGITAL LIBRARIAN MELVIN RICHARDS M.D. Performed By: #### [id number], PTT, MG, BMP, CBC, PT #### [facility] [address] [place] [id number] [facility] COMPLETE BLOOD COUNT AUTO DIFF Collected: 02/04/2025 8:31 PM Status: F Source: F [facility] TYPE CODE TESTS RESULT OUT OF RANGE REFERENCE UNITS LAB WBC White Blood Count 10.4 Normal 3.8-11.6 [CFU]/mL LAB UNWBC Uncorrected WBC 10.4 Normal 3.8-11.6 10*3/uL LAB RBC Red Blood Count 4.31 Normal 3.60-5.00 10*6/u L LAB HGB Hemoglobin 13.2 Normal 11.8-15.4 g/dL LAB HCT Hematocrit 38.8 Normal 34.0-46.4 % LAB MCV Mean Corpuscular Volume 90.0 Normal 80-100 fL LAB MCH Mean Corpuscular Hemoglobin 30.7 Normal 24.7-34.3 pg LAB MCHC Mean Corpuscular HGB Conc 34.1 Normal 32.0-35.0 g/dL LAB RDW Red Cell Distribution Width 13.8 Normal 11.9-15.3 % LAB PLT Platelet Count 318 Normal 150-450 10*3/uL LAB MPV Mean Platelet Volume 7.4 Normal 6.3-10.7 fL LAB NE% Neutrophils % (Auto) 62.7 . % LAB LY% Lymphocytes % (Auto) 23.7 . % LAB MO% Monocytes % (Auto) 12.2 . % LAB EO% Eosinophils % (Auto) 0.5 . % LAB BA% Basophils % (Auto) 0.9 . % LAB NRBC% NRBC% 0.1 Normal 0-0.5 /100{WBC} LAB NE# Neutrophils # (Auto) 6.5 Normal 1.8-7.7 10*3/uL LAB LY# Lymphocytes # (Auto) 2.5 Normal 1.00-4.8 10*3/uL LAB MO# Monocytes # (Auto) 1.3 High 0.0-0.8 10*3/uL LAB EO# Eosinophils # (Auto) 0.0 Normal 0.0-0.45 10*3/uL LAB BA# Basophils # (Auto) 0.1 Normal 0.0-0.2 10*3/uL Result Comment: PERFORMED BY : [place] [address] PATHOLOGIST DIGITAL LIBRARIAN MELVIN RICHARDS M.D. Performed By: #### [id number], PTT, MG, BMP, CBC, PT #### [place] [id number] [facility] PROTHROMBIN TIME INR Collected: 02/04/2025 8:31 PM S tatus: F Source: [facility] TYPE CODE TESTS RESULT OUT OF RANGE REFERENCE UNITS LAB R PT Prothrombin Time 10.7 Normal 9.0-12.9 s Result Comment: A hematocrit value greater than 55% may lead to inaccurate results in coagulation testing. Patients having hematocrit values >55% require a special collection tube for coagulation studies. Please contact the laboratory at [phone] for redraw instructions. LAB INR INR 0.9 Result Comment: INR Therapeu tic Range A) Pre- and Peroperative OAT started [...] valves: 3 - 4.5 Performed By: #### [id number], PTT, MG, BMP, CBC, PT #### [facility] [address] [place] [address] [place] PARTIAL THROMBOPLASTIN TIME Collected: 02/04/2025 8:3 1 PM Status: F Source: [facility] TYPE CODE TESTS RESULT OUT OF RANGE REFERENCE UNITS LAB PTT Partial Thromboplastin Time 28.2 Normal 25.1-36.5 s Result Comment: A hematocrit value greater than 55% may lead to inaccurate results in coagulation testing. Patients having hematocrit values >55% require a special collection tube for coagulation studies. Please contact the laboratory at [phone] for redraw instructions. PERFORMED BY: [facility] [address] [place] [id number] PATHOLOGIST DIGITAL LIBRARIAN MELVIN RICHARDS M.D. Performed By: #### [id number], PTT, MG, BMP, CBC, PT #### [facility] [address] [place] [id number] [facility] ALLERGIES DATE TYPE / CODE NAME / CODE REACTION SEVERITY SOURCE 03/08/2025 Drug Allergy/4606079 02(SNOMED CT) morphine/H9741 24693(RXNORM) Abdominal Pain Unknown [facility] 03/08/2025 Drug Allergy/2106985 02(SNOMED CT) aspirin/C24310 1587(RXNORM) Anaphylaxis Unknown [facility] 03/08/2025 Drug Allergy/9518687 02(SNOMED CT) sulfamethoxazo le/[id number]( RXNORM) Rash Unknown [facility] 03/08/2025 Drug Allergy/2983365 02(SNOMED CT) trimethoprim/F 702253410(RXNO RM) Rash Unknown [facility] 03/08/2025 Drug Allergy/8015449 02(SNOMED CT) ciprofloxacin/ L041592807(RXN ORM) Rash Unknown [facility] 03/08/2025 Drug Allergy/8432791 02(SNOMED CT) tramadol/Z9442 48976(RXNORM) Unknown Reaction Unknown [facility] 03/08/2025 Drug Allergy/2097496 02(SNOMED CT) promethazine/F 042671785(RXNO RM) Unknown Reaction Unknown [facility] 03/08/2025 Drug Allergy/4315608 02(SNOMED CT) hydromorphone/ V328646414(RXN ORM) Unknown Reaction Unknown [facility] 03/08/2025 Drug Allergy/7564685 02(SNOMED CT) butorphanol/F0 42319540(RXNOR M) Unknown Reaction Unknown [facility] 03/08/2025 Drug Allergy/9097135 02(SNOMED CT) metoclopramide /B836266637(RX NORM) Unknown Reaction Unknown [facility] 03/08/2025 Drug Allergy/7282901 02(SNOMED CT) niacin/V829763 052(RXNORM) Pain Unknown [facility] 03/08/2025 Drug Allergy/7191230 02(SNOMED CT) memantine/F006 196661(RXNORM) Hives Unknown [facility] 03/08/2025 Drug Allergy/3600163 02(SNOMED CT) hydroxyzine/F0 63158797(RXNOR M) Unknown Reaction Unknown [facility] 03/08/2025 Drug Allergy/2509023 02(SNOMED CT) sumatriptan/F0 31882466(RXNOR M) Hypotension Unknown [facility] 03/08/2025 Drug Allergy/2988410 02(SNOMED CT) citalopram/F00 3790711(RXNORM ) Unknown Reaction Unknown [facility] ENCOUNTERS ADMIT/DISCHARGE ACCOUNT NUMBER ADMITTING ENCOUNTER CLASS LOCATION SOURCE 03/07/2025/03/07/20 [id number] [facility] ng:[facility] 02/23/2025/02/24/20 [id number] [facility] ng:[facility] 02/21/2025/02/22/20 [id number] [facility] ng:[facility] 02/04/2025/02/08/20 [id number] Dax Matt Inpatient Encounter [facility] nTRoom: [id number]: 1 [facility] 08/15/2024/08/16/19 [id number] Ambulatory Building:NOM S NB ENT [facility] EPIC 07/20/2024/07/20/19 [id number] Ambulatory Building:BSR NEURO [facility] EPIC 06/20/2024/06/20/19 [id number] Ambulatory Building:NOM S NB ENT [facility] EPIC PAYERS ENCOUNTER GUARANTOR PAYER SUBSCRIBER SOURCE 03/07/[address] [place] [address], [place] [address]Yjl: (HP) Primary Insurance:Rickey BRASWELL PFFSPolicy Number: [id number] Date:2025-03-07 Skip LarkinOB: [id number] [place] [address], [place] [address]Ejn: (HP) [facility] 03/07/2025 Secondary Insurance:Self PayPolicy Number: Effective Date:2025-03-07 [facility]2025 Skip Hong[address] [place] [address]Iti: (HP) Primary Insurance:Rickey BRASWELL PFFSPolicy Number: [id number] Date:2025-02-23 Skip LarkinOB: [id number] [place] [address], [place] [address]Seb: (HP) [facility] 02/23/2025 Secondary Insurance:Self PayPolicy Number: Effective Date:2025-02-23 [facility] 02/21/2025 Skip Hong[address] [place] [address]Qfn: (HP) Primary Insurance:Rickey BRASWELL PFFSPolicy Number: [id number] Date:2025-02-21 Skip LarkinOB: [id number] [place] [address], [place] [address]Fgh: (HP) [facility] 02/21/2025 Secondary Insurance:Self PayPolicy Number: Effective Date:2025-02-21 NOT GIVENUNK [facility] 02/04/2025 Skip Hong[address] [place] [address]Kgf: (HP) Primary Insurance:[facility] PFFSPolicy Number: [id number] Date:2025-02-04 Skip Jarod GobleDOB: [id number] [place] [address]Xai: (HP) [facility] 02/04/2025 Secondary Insurance:MedicarePoli cy Number: [id number] Date:2025-02-04 Skip M GobleDOB: [id number] [address] [place] [address]Orb: (HP) [facility] 02/04/2025 Tertiary Insurance:Self PayPolicy Number: Effective Date:2025-02-04 [facility] 08/15/2024 SKIP Olivera GOBLEDOB: [address] [address]Sfz: (HP) Primary Insurance:ANTH MEDICARE ADVANTAGEPolicy Number: [id number] Date:2023-06-15 SKIP Olivera GOBLEDOB: [id number] [address] [facility] EPIC 07/20/2024 SKIP Olivera GOBLEDOB: [address] [address]Mhy: (HP) Primary Insurance:ANTH MEDICARE ADVANTAGEPolicy Number: [id number] Date:2023-06-15 SKIP Olivera GOBLEDOB: [id number] [place] [address] [facility] EPIC 06/20/2024 SKIP Olivera GOBLEDOB: [address] [address]Ohi: (HP) Primary Insurance:ANTHEM MEDICARE ADVANTAGEPolicy Number: [id number] Date:2023-06-15 SKIP Olivera GOBLEDOB: [id number] [address] [facility] EPIC
--- OUTSIDE RECORDS SUMMARY | 2025-03-08 09:22 | XMS_ITS | Continuity of Care Document ---
Author Organization [facility] Address [address] [place] [address] Phone Care Team Providers Care Shrub Grower Name Role Phone Min Mcgregor MD Primary Care Provider [phone] Екатерина Chacon Attending Provider + Dax Matt DO Admit Provider Dax Matt DO Other Provider Ravin Campoverde MD Attending Provider Ravin Campoverde MD Other Provider Maricruz Tobias MD Other Provider Clint Sotelo DO Other Provider Ryan Henderson II, MD Other Provider Steven Ramsay DO Other Provider Ramirez Rosales DO Attending Provider [phone] Care Teams Patient Care Team Team Status: Active Member Role Status Valdo Mcgregor MD Primary Care Provider Active Visit Care Team Team Status: Inactive Member Role Status Valdo Mcgregor MD Primary Care Provider Active Start: January 23, 2025 End: January 23, 2025 FELIPA [place] Attending Provider Active Start: January 23, 2025 End: January 23, 2025 Visit Care Team Team Status: Active Member Role Status Valdo Mcgregor MD Primary Care Provider Active Start: February 04, 2025 Dax Matt , Admit Provider Active Start: February 04, 2025 Dax Matt DO Other Provider Active Start: February 04, 2025 Ravin Campoverde MD Attending Provider Active Star t: February 04, 2025 Ravin Campoverde MD Other Provider Active Start: A ug2024 Maricruz Tobias MD Other Provider Active Star t: February 04, 2025 Clint Sotelo , Other Provider Active Start : February 04, 2025 Ryan Henderson II, MD Other Provider Active S tart: February 04, 2025 Steven Ramsay , Other Provider Active Start: February 04, 2025 Visit Care Team Team Status: Inactive Member Role Status Valdo Campoverde MD Attending Provider Active Star t: February 21, 2025 End: February 21, 2025 Min Mcgregor MD Primary Care Provider Active Start: February 21, 2025 End: February 21, 2025 Visit Care Team Team Status: Inactive Member Role Status Valdo Mcgregor MD Primary Care Provider Active Start: February 21, 2025 End: February 21, 2025 Ravin Campoverde MD Attending Provider Active Star t: February 21, 2025 End: February 21, 2025 Visit Care Team Team Status: Inactive Member Role Status Valdo Mcgregor MD Primary Care Provider Active Start: February 23, 2025 End: February 23, 2025 Ravin Campoverde MD Attending Provider Active Star t: February 23, 2025 End: February 23, 2025 Visit Care Team Team Status: Inactive Member Role Status Valdo Campoverde MD Attending Provider Active Star t: March 07, 2025 End: March 07, 2025 Min Mcgregor MD Primary Care Provider Active Start: March 07, 2025 End: March 07, 2025 Visit Care Team Team Status: Inactive Member Role Status Valdo Mcgregor MD Primary Care Provider Active Start: March 07, 2025 End: March 07, 2025 Ravin Campoverde MD Attending Provider Active Star t: March 07, 2025 End: March 07, 2025 Patient Care Team Team Status: Inactive Member Role Status Valdo Mcgregor MD Primary Care Provider Active Start: March 08, 2025 End: March 08, 2025 Ramirez Rosales DO Attending Provider Active Start: March 08, 2025 End: March 08, 2025 Chief Complaint and Reason for Visit Chief Complaint Admit Date 6 month follow up January 23, 2025 9: 13am L ankle fx February 04, 2025 7: 29pm Z98.890 - Other specified postprocedural states February 21, 2025 7:37am 2 WEEKS February 21, 2025 8:55am m79.662 February 23, 2025 4:56pm Z98.890 - Other specified postprocedural states March 07, 2025 9:22am INCREASED LT ANKLE PAIN March 07, 2025 9:53am Reason for Visit Admit Date Family history [...] 8:55am Encounter for removal of sutures Septemb 2024 8:55am History of open reduction an d internal fixation (ORIF) procedure February 21, 2025 8:55am Other specified postprocedural states Se pt2024 8:55am Closed left trimalleolar fracture Septem 2024 9:53am Other specified postprocedural states Se ptember 2024 9:53am Anxiety March 08, 2025 12:56pm Family history of Alzheimer's disease Se pt2024 12:56pm Memory difficulty March 08, 2025 12:56pm Reason for Referral Referring Provider Name Referring Provider Address Referring Provider Phone Referral Date Requested Appointment Date Referral Reason Dax Matt [address] [place] [address] Work Phone: Post surgery appointment. He will remove your sutures at this appointment. Post surge ry appointment. He will remove your sutures at this appointment. Allergies, Adverse Reactions, Alerts Allergen Type Severity Reaction Last Updated Verified Status aspirin Allergy Unknown Anaphylaxis February 1:01pm Yes Active butorphanol Allergy Unknown Unknown Reaction Septemb er 2024 1:01pm Yes Active ciprofloxacin Allergy Unknown Rash February 142024 1:01pm Yes Active hydromorphone Allergy Unknown Unknown Reaction Septe mber 2024 1:01pm Yes Active morphine Allergy Unknown Abdominal Pain March 08, 2025 1:01pm Yes Active promethazine Allergy Unknown Unknown Reaction Septem macho 2024 1:01pm Yes Active tramadol Allergy Unknown Unknown Reaction Septembe r 2024 1:01pm Yes Active citalopram Allergy Unknown Unknown Reaction Septembe r 2024 1:01pm Yes Active hydroxyzine Allergy Unknown Unknown Reaction Septemb er 2024 1:01pm Yes Active memantine Allergy Unknown Hives February 1:01pm Yes Active metoclopramide Allergy Unknown Unknown Reaction Sept ember 2024 1:01pm Yes Active niacin Allergy Unknown pain February 1:01pm Yes Active sulfamethoxazole Allergy Unknown Rash Septembe r 2024 1:01pm Yes Active sumatriptan Allergy Unknown Hypotension March 082024 1:01pm Yes Active trimethoprim Allergy Unknown Rash March 082024 1:01pm Yes Active Social History Smoking Status Status [...] Active Pain of left calf Unknown Active Anxiety Unknown Active Acute pain of left foot Unknown Active Fibromyalgia Unknown Active Migraines Unknown Active History of open reduction an d internal fixation (ORIF) procedure Unknown Active open reduction internal fixation left trimalleolar ankle fracture DOS 8/25/25. Encounter for removal of sutures Unknown Active Family history of Alzheimer' s disease Unknown Active Memory difficulty Unknown Active Left ankle pain Unknown Active History of thoracic outlet syndrome [...] as needed for pain 10 5 2024 [facility] 2024 5:05p m Hydrocodone -Acetaminop hen 5-325 mg tablet Discont inued 1 TAB PO Twice daily as needed for pain 10 5 2024 [facility] 2024 10:29 am Melatonin 5 mg capsule Discont inued 15 MG PO as needed for insomnia February 05, 2025 12:00a m [facility] 2024 1:01p m Cholecalcif harsha (Vitamin D3) 10 mcg (400 unit) Tablet Active 20 MCG PO Twice daily with meals 120 30 February 07, 2025 12:00a m Complies with drug therapy Oxycodone 5 mg Tablet Discont inued 5 MG PO Every 4 hours as needed for Pain Scale 4 - 7 30 5 February 07, 2025 [facility] 2024 9:18a m Clopidogrel (Plavix) 75 mg tablet Active 75 MG PO As Directed January 23, 2025 12:00a m twice a week Complies with drug therapy Levothyroxi ne 25 mcg tablet Discont inued 25 MCG PO January 23, 2025 12:00a m Augus t 2024 10:11 am Gabapentin 100 mg capsule Active 100 MG PO Daily at bedtime January 23, 2025 12:00a m Complies with drug therapy Levothyroxi ne 25 mcg tablet Active 25 MCG PO Daily January 23, 2025 10:10a m Complies with drug therapy Naratriptan 1 mg tablet Active 0 PO .COMPLEX as needed for migraines January 23, 2025 12:00a m Take 1 tablet by mouth as needed at the onset of migraine. Take no more than 1 dose in 24 hours. Complies with drug therapy Hydrocodone -Acetaminop hen 5-325 mg tablet Active 1 TAB PO Twice daily as needed for pain 10 5 2024 Complies with drug therapy Meloxicam 15 mg tablet Active 15 MG PO Daily 2024 12:00a m Complies with drug therapy Medical Equipment Device Date Implanted Device Details Orthopaedic bone screw, non-bioabsorbable, non-sterile February 06, 2025 LANEY: ()[id number] Issuing Agency: [facility] Device Id: [id number] Orthopaedic bone screw, non-bioabsorbable, non-sterile February 06, 2025 LANEY: ()[id number] Issuing Agency: [facility] Device Id: [id number] Orthopaedic bone screw, non-bioabsorbable, non-sterile February 06, 2025 LANEY: ()[id number] Issuing Agency: [facility] Device Id: [id number] Orthopaedic bone screw, non-bioabsorbable, non-sterile February 06, 2025 LANEY: ()[id number] Issuing Agency: [facility] Device Id: [id number] Orthopaedic bone screw, non-bioabsorbable, non-sterile February 06, 2025 LANEY: ()[id number] Issuing Agency: [facility] Device Id: [id number] Orthopaedic bone screw, non-bioabsorbable, non-sterile February 06, 2025 LANEY: ()[id number] Issuing Agency: [facility] Device Id: [id number] Orthopaedic bone screw, non-bioabsorbable, non-sterile February 06, 2025 LANEY: ()[id number] Issuing Agency: [facility] Device Id: [id number] Orthopaedic bone screw, non-bioabsorbable, non-sterile February 06, 2025 LANEY: ()[id number] Issuing Agency: [facility] Device Id: [id number] Orthopaedic bone screw, non-bioabsorbable, non-sterile February 06, 2025 LANEY: ()[id number] Issuing Agency: [facility] Device Id: [id number] Orthopaedic bone screw, non-bioabsorbable, non-sterile February 06, 2025 LANEY: ()[id number] Issuing Agency: [facility] Device Id: [id number] Orthopaedic bone screw, non-bioabsorbable, non-sterile February 06, 2025 LANEY: ()[id number] Issuing Agency: [facility] Device Id: [id number] Orthopaedic bone screw, non-bioabsorbable, non-sterile February 06, 2025 LANEY: ()[id number] Issuing Agency: [facility] Device Id: [id number] Orthopaedic bone screw, non-bioabsorbable, non-sterile February 06, 2025 LANEY: ()[id number] Issuing Agency: [facility] Device Id: [id number] Orthopaedic bone screw, non-bioabsorbable, non-sterile February 06, 2025 LANEY: ()[id number] Issuing Agency: [facility] Device Id: [id number] Orthopaedic fixation plate, non-bioabsorbable, sterile February 06, 2025 LANEY: ()[id number] Issuing Agency: [facility] Device Id: [id number] Procedures Procedure Date Performed Status XR ankle LT min 3V* February 21, 2025 7:37am c ompleted XR foot LT min 3V* February 21, 2025 9:46am co mpleted US venous duplex LE BI February 23, 2025 4:59 pm completed XR ankle LT min 3V* March 07, 2025 9:22am completed Relevant Diagnostic Tests and/or Laboratory Data Diagnostic Imaging Reports Author Alex Gleason [facility] Authored February 21, 2025 11:16am Report Dictated Date/Time Dictated By Status Radiology Report February 21, 2025 11:16am Alex Gleason Jr DO completed [facility] [address] [place] [address] XRay Report Signed Patient: Skip Hong MR#: [id number] : 1955 Acct:[id number] Age/Sex: 70 / F ADM Date: 5 Loc: SOXD Room: Type: REG CLI Attending Dr: Ravin Campoverde MD Copies to: Ravin Campoverde MD~ Ordering Provider: Ravin Campoverde MD Date of Service: 02/21/25 XR/XR ankle LT min 3V*: Z98.890 - Other specified postprocedural states ([id number]) XR/XR foot LT min 3V*: M79.672 - [...] Jr., D.O. 02/21/2025 11:18 AM Dictation Location: [place] [address] Transcribed By: [facility] 02/21/25 1118 Dictated By: Alex Gleason Jr, DO 02/21/25 1116 Signed By: <Electronically signed by Alex Gleason Jr, DO in OV> 02/21/25 1118 Author Shimon Melgar [facility] Authored February 24, 2025 7:46am Report Dictated Date/Time Dictated By Status Radiology Report February 24, 2025 7:46am Shimno Melgar MD completed [facility] [place] [address] Ultrasound Report Signed Patient: Skip Hong MR#: [id number] : 1955 Acct:[id number] Age/Sex: 70 / F ADM Date: 5 Loc: Room: Type: [facility] CLI Attending Dr: Ravin Campoverde MD Ordering Provider: Ravin Campoverde MD Date of Service: 02/23/25 US/US venous duplex LE BI: eval for DVT Copies to: Ravin Campoverde MD~ BILATERAL LOWER EXTREMITY VENOUS DUPLEX INDICATION: Lateral [...] Melgar MD,FACS,FSVS 02/24/2025 7:47 AM Dictation Location: [place] [address] Tech: Citlaly Olmedo Transcribed By: [facility] 02/24/2547 Dictated By: Shimon Melgar MD 02/24/25 0746 Signed By: <Electronically signed by Shimon Melgar MD in OV> 02/24/25 0747 Author Alex Gleason [facility] Authored March 07, 2025 3:56pm Report Dictated Date/Time Dictated By Status Radiology Report March 07, 2025 3:56pm Alex Gleason Jr DO completed [facility] [address] [place] [address] XRay Report Signed Patient: Skip Hong MR#: [id number] 9150 : 1955 Acct:[id number] Age/Sex: 70 / F ADM Date: 5 Loc: [facility]: Ravin Campoverde MD Copies to: [...] FRACTURES. Impression dictated by: Alex Gleason Jr., D.OKim 03/07/2025 3:57 PM Dictation Location: [place] [address] Transcribed By: [facility] 03/07/251556 Dictated By: Alex Gleason Jr, DO 03/07/251555 Signed By: <Electronically signed by Alex Gleason Jr, DO in OV> 03/07/251556 Vital Signs Vital Reading Result Reference Range Collection Date/Time Height 63 [in_i] January 23 9:14am Weight 62.59 kg January 23 9:14am Heart Rate 65 /min 60-100 January 23 9:14am Respiratory rate 6 /min -January 9:14am Oxygen saturation by Pulse oximetry 98 [...] oxygen flow rate 6 L/min Jan 2:26pm Heart Rate 71 /min 60-100 March 08, 2025 12:59pm Oxygen saturation by Pulse oximetry 99 % 95-100 March 08, 2025 12:59pm BP Systolic 124 mm[Hg] 100-140 March 08, 2025 12:59pm BP Diastolic 72 mm[Hg] 60-100 March 08, 2025 12:59pm Advance Directives Advance Directive Response Recorded Date/ Time Advance Directives No February 10, 2018 2:23pm Insurance Providers Guarantor Jarod Bajwa Address [address] [place] [address] Contact Info. Home Phone: Payer Policy Id Subscriber's Name Subscriber Id Effectiv e Date Expiration Date Medicare [id number] Jarod Bajwa [id number] [place] M[employer] PFFS [id number] Jarod Bajwa [id number] Encounters Encounter Location(s) Arrival/Admit Date Discharge/Depart Date Provider(s) Departed Physician/Prov ider Office Visit -[facility] [place] January 23, 2025 9:13am January 23, 2025 10:26am Екатерина Chacon APRN-[facility] Non-patient / Non-visit -Replaced By [facility] February 04, 2025 7:29pm Ravin Campoverde MD Departed Clinical -[facility] February 21, 2025 7:37am February 21, 2025 7:38am Ravin Campoverde MD Departed Physician/Prov ider Office Visit -Replaced By [facility] February 21, 2025 8:55am February 21, 2025 10:28am Ravin Campoverde MD Departed Clinical -Ultrasound [facility] February 23, 2025 4:56pm February 23, 2025 4:57pm Ravin Campoverde MD Departed Clinical -XRay [facility] March 07, 2025 9:22am March 07, 2025 9:23am Ravin Campoverde MD Departed Physician/Prov ider Office Visit -Replaced By [facility] March 07, 2025 9:53am March 07, 2025 10:29am Ravin Campoverde MD Departed Physician/Prov ider Office Visit -Replaced By [facility] March 08, 2025 12:56pm March 08, 2025 1:21pm Jarod Xiao DO Recent Diagnosis Onset Date Admit Date Family [...] postprocedural states Unknown February 21, 2025 8:55am Closed left trimalleolar fracture Unknown March 07, 2025 9:53am Other specified postprocedural states Unknown March 07, 2025 9:53am Anxiety Unknown March 08, 2025 12:56pm Family history of Alzheimer's disease Unknown March 08, 2025 12:56pm Memory difficulty Unknown February 12:56pm Assessments Diagnosis Onset Date Resolution Status Admit [...] postprocedur al states acute February 21 8:55am Closed left trimalleolar fracture acute March 07, 2025 9:53am Other specified postprocedur al states acute March 07, 2025 9:53am Anxiety acute February 12:56pm Family history of Alzheimer' s disease chronic March 08, 2025 12:56pm Memory difficulty chronic Sept2024 12:56pm Plan of Treatment Author Екатерина Chacon [facility] Authored January 23, 2025 11 :40am The [...] plan. All questions answered. Author Arlyn Ignacio [facility] Authored February 21, 2025 10:32am Radiographs reviewed in [facility] with patient. She is progressing well from [...] in hydrocodone refill with instructions on use. Author Wendi Douglas [facility] Authored March 07, 2025 10:26am Patient instructed that she will need to followup with PCP and/or neurology due to neuropathy complaints. Patient instructed to ice and elevate. Patient instructed on ROM exercises. In 2 weeks she may begin to start to progress gentle weight bearing with walker. Patient instructed on massage and desensitization. Author Ramirez Rosales [facility] Authored March 08, 2025 1:07pm The patient does have memory impairment. She [...] instructions, and discussion of mental health issues Future Tests Future scheduled test information is unavailable Pending Tests Pending diagnostic test information is unavailable Future Visits Future appointment information is unavailable Referrals to Other Providers Reason for Referral Referral Start Date Provider Provider Contact Information Provider Address Post surgery appointment. He will remove your sutures at this appointment. Ravin Campoverde MD Work Phone: [facility] [place] [address] Future Procedures Procedure Name Ordered Date Scheduled [...]
--- OUTSIDE RECORDS SUMMARY | 2025-03-08 12:19 | XMS_ITS ---
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 Vásquez declined referral Encounters Encounter Location Date Provider Diagnosis [facility] [address] [place] [address] 03/08/2025 Noe Mcgregor Left hip pain M25.55 2 and Aseptic necrosis of bone of left hip M87.052 Assessments Encounter Date Diagnosis (ICD Code) Assessment Notes Treatment Notes Treatment Clinical Notes Section Notes 03/08/2025 Left hip pain (ICD-10 - M25.552) 03/08/2025 Aseptic necrosis of bone of left hip (ICD-10 - M87.052) Plan Of Treatment Referrals Referral Date Details 03/09/2025 03/09/2025, Neil dempsey Progress Notes * Lay HONG:1955 ([age] yo F)Acc No.[id number]:03/08/2025 Patient: Skip ESTRELLA :1955 A ge:70 Y S ex:Female Address:[address] [place] [address], [phone] Subjective: * Chief Complaints: * D r. Fahad declined referral * Medical History: * Surgical History: * Hospitalization/Major Diagno stic Procedure: * Medications: Objective: * Vitals: * Physical Examination: Assessment: * Assessment: 1. L eft hip pain - M25.552 (Primary) 2 . A septic necrosis of bone of left hip - M87.052 Plan: * Treatment: 2. A septic necrosis of bone of left hip Referral To:Neil Evans Orthopedic Surgery Reason: * Procedure Codes: * true * Date: Generated for Sarahi gema/Hal/eTransmitting on: 1 10:14 AM EDT Consultation Request Notes Referral Date Referring Provider Referred Provider Not es 03/09/2025 Noe Mcgregor Anil
--- OUTSIDE RECORDS SUMMARY | 2025-03-15 10:15 | XMS_ITS | Clinical Summary ---
Author Organization [facility] Address [address] [place] [address] Care Team Providers Care Concrete Craftsman Name Role Phone Min Mcgregor MD Primary Care Provider [phone] JimJosh wilks OD Unavailable Allergies Active [...] (06/17/2024): Added automatically from request for surgery [id number] 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 region 06/03/2022 Overview (06/17/2024): Added automatically from request for surgery [id number] Idiopathic chronic pancreatitis 05/13/2018 Abdominal pain 09/20/2009 [...] Narrative 03/26/2022 12:00 AM EDT PERFORMED AT [facility] LOCATION:[place] [address] 3 Patient: ABDIAS Maciel Exam Date: 03/26/2022 : 1955 Gender:F Ordering : DR BAR TEJADA . Admission #: [id number] Family : Order #: [id number] CLICK HERE TO VIEW EXAM RADIOLOGY REPORT [...] breast cancer at age 30. LOCATION: [facility] BREAST COMPOSITION: Heterogeneously dense which may [...] Note CONVERSION, GENERIC - 12/19/2022 PERFORMED AT [facility] LOCATION:[place] [address] Patient: ABDIAS Maciel Exam Date: 03/26/2022 : 1955 Gender:F Ordering : DR BAR TEJADA . Admission #: [id number] Family : Order #: [id number] CLICK HERE TO VIEW EXAM RADIOLOGY REPORT [...] breast cancer at age 30. LOCATION: [facility] BREAST COMPOSITION: Heterogeneously dense which may [...] Maintenance Insurance [employer] Care Teams Concrete Craftsman Relationship Specialty Start Date End Date Min Mcgregor MD PCP - General Family Medicine 07/27/23 Josh Fernandez OD [address] [place] [address] Referring Physician Optometry 01/11/24
--- OUTSIDE RECORDS SUMMARY | 2025-03-15 10:15 | XMS_ITS | Encounter Summary ---
Author Organization [facility] Address [address] [place] [address] Care Team Providers Care Electric Shovel Operator Name Role Phone Min Mcgregor MD Primary Care Provider + Luli Roy (Hist) Unavailable [phone] Shimon Roblero Unavailable [phone] Source Comments In the event this information is protected by the Federal Confidentiality of Alcohol and Drug AbusePatient Records regulations: The Federal rules restrict any use of the information to criminally investigate or prosecute any alcohol or drug abuse patient.[facility] Encounter Details Date Type Department Care Team (Late st Contact Info) Description 01/11/2021 [place] [address] Provider, f Medicare Coverage of Physical Exams [...] N ot on file 05/21/2020 Data from: [email or web address] Last address used for calculation Not on [...] on filedocumented in this encounter Care Teams Electric Shovel Operator Relationship Specialty Start Date End Date Min Mcgregor MD PCP - General 09/07/09 Luli Roy (Hist), [address] [place] [address] Referring Gastroenterology 05/04/18 Shimon Roblero PA [address] [place] [address] Referring Pain Management 08/29/22 documented as of this encounter
--- OUTSIDE RECORDS SUMMARY | 2025-03-15 10:15 | XMS_ITS | Encounter Summary ---
Author Organization [facility] tem Address [id number] [address] [place] [address] Care Team Providers Care Trading Specialist Name Role Phone Min Mcgregor MD Primary Care Provider [phone] Encounter Details Date Type Department Care Team (Late st Contact Info) Description 06/10/2022 Telephone [facility] [address] [place] [id number] Ariadne Munoz RN Social History Tobacco Use [...] is unable to get into see the [facility] until . The PCP office also gave [...] that she can take the percocet and health underwriter will forward message to today's provider as [...] if she took the offered appointment with [facility] at PCP's office. She said she did not but will callto get in w/ [facility] if pain persists. documented in this encounter Plan of Treatment Not on file documented as of this encounter Visit Diagnoses Not on filedocumented in this encounter Care Teams Trading Specialist Relationship Specialty Start Date End Date Min Mcgregor MD PCP - General Family Medicine 05/30/22 documented as of this encounter
--- OUTSIDE RECORDS SUMMARY | 2025-03-15 10:15 | XMS_ITS | Encounter Summary ---
Author Organization [facility] tem Address [id number] [address] [place] [address] Care Team Providers Care Psychiatric Rn Name Role Phone Min Mcgregor MD Primary Care Provider [phone] Encounter Details Date Type Department Care Team (Late st Contact Info) Description 06/11/2022 Orders Only [facility] [address] [place] [id number] Min Mcgregor MD [address] [place] [address] Social History Tobacco Use Types Packs/Day Years [...] on filedocumented in this encounter Care Teams Psychiatric Rn Relationship Specialty Start Date End Date Min Mcgregor MD PCP - General Family Medicine 05/30/22 documented as of this encounter
--- OUTSIDE RECORDS SUMMARY | 2025-03-15 10:15 | XMS_ITS | Patient Health Record ---
Author Organization [facility] [place] Address [address] [place] [address] Care Team Providers Care Sales Support Specialist Name Role Phone Duncansabrina Noe Primary Care Provider Donna Torres Unavailable [phone] Allergies Allergen (clinical drug ingredient) Drug/Non Drug [...] all over Drug Allergy Active Substance with 0-vmkdrpt-7-methylglu taryl-coenzyme A reductase inhibitor mechanism of action [...] A neg FLU B Neg Control Present MM tomosynthesis screening B I Reviewed date:04/11/2024 09:10:13 PM Interpretation: Performing Lab: Notes/Report: Source Facility: [place] [address] [facility] [place] [id number] Mammography Report Signed Patient: SKIP HONG MR#: [id number] : 1955 Acct:[id number] Age/Sex: 69 / F ADM Date: 04/11/24 Loc: MAMMO Attending Dr: Anitha Mcgregor M.D. Ordering Physician: Anitha Mcgregor M.D. Results: Date of Service: 04/11/24 Follow Up: Procedure(s): MM tomosynthesis screening BI Accession Number(s): [id number] cc: Anitha Mcgregor M.D. Patient Name: SKIP HONG MR#: [id number] : 1955 Exam Date: 04/11/2024 Ordering Doctor: [...] breast cancer at age 30. LOCATION: [facility] BREAST COMPOSITION: The breasts are heterogeneously dense,which [...] By: Booker Rasheed M.D. Signed By: 04/11/24 1402 DD/ 140 TD/TT: Wilton Weaver: LAB TESTING Reviewed date:08/21/2024 09:54:43 AM Interpretation: Performing Lab: Notes/Report: [id number] Viral Culture, General [facility] , Miscellaneous Test COMMENT . Test Ordered: [id number] Viral Culture, General Viral Culture, General Note: No virus isolated. Reference Range: . Please indicate source of specimen on all future request forms. Performed at: BN - [facility] [address] [id number] Advertising Solicitor: Yasmine Trinh MD, Phone: [phone] Performed at: - [facility] [id number] Advertising Solicitor: Samir Newberry PhD, Phone: [phone] Performing Lab: see note - [facility] LB CBC AUTO DIFF Reviewed date:02/05/2025 11:04:56 AM Interpretation: Performing Lab: Notes/Report: [facility] , White Blood Count 5.9 4.0-11.0 10 3/uL Red Blood Count 4.25 4.20-5.40 10 6/uL Hemoglobin 12.9 12.0-16.0 g/dL Hematocrit 38.4 36.0-48.0 % Mean Corpuscular Volume 90.4 81.0-99.0 fL Mean Corpuscular Hemoglobin 30.4 26.7-34.0 pg Mean Corpuscular HGB Conc 33.6 29.9-35.2 g/dL Red Cell Distribution Width 13.2 11.0-15.0 % Platelet Count 282 150-450 10 3/uL Mean Platelet Volume 9.2 9.5-13.5 fL Neutrophils Percent Auto 63.5 43.0-75.0 % Lymphocytes Percent Auto 25.3 20.5-60.0 % Monocytes Percent Auto 9.8 1.7-12.0 % Eosinophils Percent Auto 0.7 0.9-7.0 % Basophils Percent Auto 0.5 0.2-2.0 % Immature Granulocytes Pct Auto 0.2 0.0-0.5 % Neutrophils Absolute Auto 3.8 1.4-6.5 10 3/uL Lymphocytes Absolute Auto 1.5 1.2-3.8 10 3/uL Monocytes Absolute Auto 0.6 0.3-0.8 10 3/uL Eosinophils Absolute Auto 0.0 0.0-0.7 10 3/uL Basophils Absolute Auto 0.0 0.0-0.1 10 3/uL Immature Granulocytes Abs Auto 0.01 0.00-0.03 10 3/uL Performing Lab: see note ML - [facility] LB PROF CHEM 8 (LAINA METB) Reviewed date:02/05/2025 11:04:57 AM Interpretation: Performing Lab: Notes/Report: [facility] , Sodium 143 136-145 mmol/L Potassium 3.6 3.5-5.1 mmol/L Chloride 109 98-107 mmol/L Carbon Dioxide 23.3 21.0-32.0 mmol/L Anion Gap 14.3 Glucose 101 74-106 mg/dL Blood Urea Nitrogen 9.0 7.0-18.0 mg/dL Creatinine 0.84 0.55-1.02 mg/dL Estimated GFR ( Jimena >60 >=60 mL/min/1.73m 2 Estimated GFR (Non- Anita >60 >=60 mL/min/1.73m 2 BUN Creatinine Ratio 10.7 Calcium 8.8 8.5-10.1 mg/dL Performing Lab: see note ML - [facility] LB PTT Reviewed date:02/05/2025 11:04:57 AM Interpretation: Performing Lab: Notes/Report: [facility] , Partial Thromboplastin Time 25.2 22.3-36.2 sec Performing Lab: see note ML - [facility] LB Prothrombin Time INR Reviewed date:02/05/2025 11:04:57 AM Interpretation: Performing Lab: Notes/Report: [facility] , Prothrombin Time 10.1 9.0-11.6 sec INR 0.95 DESIRED INR: 2.0-3.0 CONDITIONS NOT LISTED BELOW 2.5-3.5 FOR PROSTHETIC HEART VALVE REPLACEMENT 2.5-3.5 RECURRENT THROMBOSIS Performing Lab: see note ML - [facility] LB Type and Screen Reviewed date:02/05/2025 11:04:57 AM Interpretation: Performing Lab: Notes/Report: [facility] , Blood Type O Positive Antibody Screen NEGATIVE XR ANKLE LT 2V Reviewed date:02/05/2025 11:04:57 AM Interpretation: Performing Lab: Notes/Report: Source Facility: [facility] [place] [address] [address] XRay Report Signed Patient: SKIP HONG MR#: [id number] : 1955 Acct:[id number] Age/Sex: 70 / F ADM Date: 02/04/25 Loc: ER Attending Dr: Ordering Physician: Augusto Bear Date of Service: 02/04/25 Procedure(s): XR ankle LT 2V Accession Number(s): [id number] cc: Anitha Mcgregor M.D.; Augusto Bear [address] [address] Patient Name: SKIP HONG MRN: [id number] date: 1955 Sex: F Assigned Patient Location: ER Current Patient Location: ER Accession/Order Number: [id number] Exam Date: 02/04/2025 14:05 Report Date: 02/04/2025 14:33 At the request of: AUGUSTO BILL Procedure: XR ankle LT 2V XR ankle LT 2V 02/04/2025 2:14 PM SIGNS AND SYMPTOMS: left ankle injury/ PROTOCOL: Frontal and lateral radiographs of the left ankle COMPARISON: None FINDINGS: There is a trimalleolar fracture and dislocation of the left ankle with the talus laterally subluxed in respect to the distal tibia by 2.3 cm. There is apex medial angular deformity of the distal fibular fracture. The talar dome appears to be grossly intact. XR/XR ankle LT 2V IMPRESSION: There is a trimalleolar fracture and dislocation of the left ankle with the talus laterally subluxed in respect to the distal tibia by 2.3 cm. There is apex medial angular deformity of the distal fibular fracture. Impression dictated by: Josh Shaffer M.D. 02/04/2025 2:33 PM Dictation Location: [place] [address] Electronically authenticated by: [id number] Y Date: 02/04/2025 14:33 Dictated By: Josh Shaffer M.D. Signed By: 02/04/252014 DD/ 143 TD/TT: Wilton Weaver: XR tibia fibula LT 2V Reviewed date:02/05/2025 11:04:57 AM Interpretation: Performing Lab: Notes/Report: Source Facility: [place] [address] XRay Report Signed Patient: SKIP HONG MR#: [id number] : 1955 Acct:[id number] Age/Sex: 70 / F ADM Date: 02/04/25 Loc: ER Attending Dr: Ordering Physician: Augusto Bear Date of Service: 02/04/25 Procedure(s): XR tibia fibula LT 2V Accession Number(s): [id number] cc: Anitha Mcgregor M.D.; Augusto Bear [place] [address] Patient Name: SKIP HONG MRN: [id number] date: 1955 Sex: F Assigned Patient Location: ER Current Patient Location: ER Accession/Order Number: [id number] Exam Date: 02/04/2025 14:05 Report Date: 02/04/2025 14:34 At the request of: AUGUSTO BILL Procedure: XR tibia fibula LT 2V XR tibia fibula LT 2V 02/04/2025 2:14 PM SIGNS AND SYMPTOMS: injury PROTOCOL: Frontal and lateral radiographs of the left tibia and fibula COMPARISON: None FINDINGS: There is a trimalleolar fracture and dislocation of the left ankle with the talus laterally subluxed in respect to the distal tibia by 2.3 cm. There is apex medial angular deformity of the distal fibular fracture. The proximal aspect of the left tibia and fibula is grossly intact. XR/XR tibia fibula LT 2V IMPRESSION: There is a trimalleolar fracture and dislocation of the left ankle with the talus laterally subluxed in respect to the distal tibia by 2.3 cm. There is apex medial angular deformity of the distal fibular fracture. Impression dictated by: Josh Shaffer M.D. 02/04/2025 2:34 PM Dictation Location: [place] [address] Electronically authenticated by: [id number] Y Date: 02/04/2025 14:34 Dictated By: Josh Shaffer M.D. Signed By: 02/04/252014 DD/ 1434 TD/TT: Wilton Weaver: XR ANKLE LT 2V Reviewed date:02/05/2025 11:04:57 AM Interpretation: Performing Lab: Notes/Report: Source Facility: [place] [address] XRay Report Signed Patient: SKIP HONG MR#: [id number] : 1955 Acct:[id number] Age/Sex: 70 / F ADM Date: 02/04/25 Loc: ER Attending Dr: Ordering Physician: Umair Villalpando Date of Service: 02/04/25 Procedure(s): XR ankle LT 2V Accession Number(s): [id number] cc: Anitha Mcgregor M.D.; Umair Villalpando [place] [address] Patient Name: SKIP HONG MRN: [id number] date: 1955 Sex: F Assigned Patient Location: ER Current Patient Location: ER Accession/Order Number: [id number] Exam Date: 02/04/2025 14:15 Report Date: 02/04/2025 14:36 At the request of: UMAIR VILLALPANDO DO Procedure: XR ankle LT 2V XR ankle LT 2V 02/04/2025 2:28 PM SIGNS AND SYMPTOMS: post reduction Y PROTOCOL: Frontal and lateral radiographs of the left ankle COMPARISON: Radiographs from the same date FINDINGS: There is redemonstration of a malleable fracture with reduction of the previous lateral dislocation of the talus. There is residual dorsal subluxation of the distal fibular fragment and distal tibial fragment. The distal tibial fracture extends through the articular surface communicating with the tibiotalar joint space. The medial malleolus fragment is in anatomic alignment. XR/XR ankle LT 2V IMPRESSION: Satisfactory reduction of trimalleolar fracture and dislocation of the left ankle with residual dorsal subluxation of the distal fibular fragment and distal tibial fragment. Impression dictated by: Josh Shaffer M.D. 02/04/2025 2:36 PM Dictation Location: [place] [address] Electronically authenticated by: [id number] Y Date: 02/04/2025 14:36 Dictated By: Josh Shaffer M.D. Signed By: 02/04/252014 DD/ 1436 TD/TT: Wilton Weaver: XR hip LT 2V w/ pelvis Reviewed date:02/26/2025 12:41:11 PM Interpretation: Performing Lab: Notes/Report: Source Facility: [place] [address] XRay Report Signed Patient: SKIP HONG MR#: [id number] : 1955 Acct:[id number] Age/Sex: 70 / F ADM Date: 02/24/25 Loc: ER Attending Dr: Ordering Physician: Candelario Mendiola Date of Service: 02/24/25 Procedure(s): XR hip LT 2V w/ pelvis Accession Number(s): [id number] cc: Candelario Mendiola; Anitha Mcgregor M.D. [place] [id number] Patient Name: SKIP HONG MRN: [id number] date: 1955 Sex: F Assigned Patient Location: ER Current Patient Location: ER Accession/Order Number: [id number] Exam Date: 02/24/2025 19:50 Report Date: 02/24/2025 20:29 At the request of: CANDELARIO MENDIOLA MD Procedure: XR hip LT 2V w/ pelvis Single view pelvis and 2 views left hip INDICATION: Fall COMPARISON: None FINDINGS: No fracture-dislocation identified. Question subchondral band sclerosis both femoral heads. Mild spurring sacroiliac joints. Mild degenerative changes both hips. Soft tissues unremarkable. XR/XR hip LT 2V w/ pelvis Impression: Mild degenerative change. No fractures or dislocation identified. Subchondral band of sclerosis both femoral heads noted, question this could suggest AVN. Impression dictated by: Javy Hays M.D. 02/24/2025 8:29 PM Dictation Location: [facility] Electronically authenticated by: [id number] Y Date: 02/24/2025 20:29 Dictated By: Javy Hays M.D. Signed By: 02/24/252030 DD/ 28 TD/TT: Wilton Weaver: XR ankle LT min 3V Reviewed date:02/26/2025 12:41:11 PM Interpretation: Performing Lab: Notes/Report: Source Facility: [place] [address] XRay Report Signed Patient: SKIP HONG MR#: [id number] : 1955 Acct:[id number] Age/Sex: 70 / F ADM Date: 02/24/25 Loc: ER Attending Dr: Ordering Physician: Candelario Mendiola Date of Service: 02/24/25 Procedure(s): XR ankle LT min 3V Accession Number(s): [id number] cc: Candelraio Mendiola; Anitha Mcgregor M.D. [place] [address] Patient Name: SKIP HONG MRN: [id number] date: 1955 Sex: F Assigned Patient Location: ER Current Patient Location: ER Accession/Order Number: [id number] Exam Date: 02/24/2025 19:50 Report Date: 02/24/2025 20:30 At the request of: CANDELARIO MENDIOLA MD Procedure: XR ankle LT min 3V LEFT ANKLE - 3 views CLINICAL HISTORY: fall COMPARISON: 02/04/2025 FINDINGS: Postsurgical changes of ORIF of the bimalleolar fracture. Persistent fracture lines noted. These appear near anatomic alignment. No definite intact. No new fracture dislocation. XR/XR ankle LT min 3V IMPRESSION: ORIF findings without acute osseous abnormality. Impression dictated by: Javy Hays M.D. 02/24/2025 8:30 PM Dictation Location: [facility] Electronically authenticated by: [id number] Y Date: 02/24/2025 20:30 Dictated By: Javy Hays M.D. Signed By: 02/24/252031 DD/ 29 TD/TT: Wilton Weaver: hip LT wo/w con Reviewed date:03/06/2025 03:21:35 PM Interpretation: Performing Lab: Notes/Report: Source Facility: [place] [address] Magnetic Resonance Report Signed Patient: SKIP HONG MR#: [id number] : 1955 Acct:[id number] Age/Sex: 70 / F ADM Date: 03/06/25 Loc: LAB Attending Dr: Anitha Mcgregor M.D. Ordering Physician: Anitha Mcgregor M.D. Date of Service: 03/06/25 Procedure(s): hip LT wo/w con Accession Number(s): [id number] cc: Anitha Mcgregor M.D. [place] [address] Patient Name: SKIP HONG MRN: [id number] date: 1955 Sex: F Assigned Patient Location: LAB Current Patient Location: LAB Accession/Order Number: [id number] Exam Date: 03/06/2025 13:15 Report Date: 03/06/2025 14:57 At the request of: ANITHA MCGREGOR MD Procedure: MR hip LT wo/w con MR hip LT wo/w con 03/06/2025 2:31 PM SIGNS AND SYMPTOMS: Idiopathic aseptic necrosis of left femur PROTOCOL: Multiplanar multisequence MR images of the left hip with and without IV contrast Contrast: 12 mL of intravenous Dotarem COMPARISON: 02/24/2025 FINDINGS: Alignment: Normal Femoroacetabular impingement anatomy: Pincer: None. Dysplasia: None. Fluid: No joint effusion. Labrum: There is a reticular increased signal intensity underlying the superior and anterior labrum and within the labrum itself on fluid sensitive sequences suspicious for underlying labral pathology. There is accompanying enhancement which is likely inflammatory.. Cartilage: Femoral: There is full thickness chondromalacia. Acetabular: There is partial thickness chondromalacia. Capsule/ligaments: Normal. Muscles/tendons/entheses: Flexors: Normal. Extensors: Normal. Abductors: Normal. Adductors: Normal. Rotators: Normal. Hamstrings: Normal. Bones (other than subarticular marrow): There is serpiginous signal abnormality which is hyperintense on T2 and hypointense on T1-weighted undermining the articular surface of the head of the right femur consistent with avascular necrosis. The articular surface is grossly intact. This measures 1.8 cm in AP dimension by 1.4 cm in medial to lateral dimension. Vessels: Normal. Nerves: Visualized right sciatic and femoral nerves appear normal. Soft tissues: Normal. Viscera: Visualized pelvic structures appear normal. No lymphadenopathy by size criteria. No free fluid in the pelvis. MR/MR hip LT wo/w con IMPRESSION: There is serpiginous signal abnormality which is hyperintense on T2 and hypointense on T1-weighted undermining the articular surface of the head of the right femur consistent with avascular necrosis. The articular surface is grossly intact. This measures 1.8 cm in AP dimension by 1.4 cm in medial to lateral dimension. Findings also suggest chronic labral pathology along the superior and anterior aspect of the labrum of the right hip. Impression dictated by: Josh Shaffer M.D. 03/06/2025 2:57 PM Dictation Location: [place] [address] Electronically authenticated by: [id number] Y Date: 03/06/2025 14:57 Dictated By: Josh Shaffer M.D. Signed By: 03/06/25 1500 DD/ 1457 TD/TT: Wilton Weaver: CREATININE Reviewed date:03/06/2025 01:08:43 PM Interpretation: Performing Lab: Notes/Report: [facility] , Creatinine 1.04 0.55-1.02 mg/dL Estimated GFR ( Jimena >60 >=60 mL/min/1.73m 2 Estimated GFR (Non- Anita 53 >=60 mL/min/1.73m 2 Performing Lab: see note ML - [facility] LB TSH Reviewed date:10/20/2024 02:37:54 PM Interpretation: Performing Lab: Notes/Report: [facility] , Thyroid Stimulating Hormone 2.201 0.358-3.740 uIU/mL Performing Lab: see note - [facility] LB T4 Reviewed date:10/20/2024 02:37:54 PM Interpretation: Performing Lab: Notes/Report: [facility] , T4 Thyroxine 6.60 4.80-13.90 ug/dL Performing Lab: see note - [facility] LB PROF 14(COMP METB) Reviewed date:10/20/2024 02:37:54 PM Interpretation: Performing Lab: Notes/Report: [facility] , Sodium 137 136-145 mmol/L Potassium 3.9 [...] 1.0 Performing Lab: see note ML - [facility] LB LIPID PROFILE Reviewed date:10/20/2024 02:37:54 PM Interpretation: Performing Lab: Notes/Report: [facility] , Triglycerides 114 <=150 mg/dL Cholesterol 245 [...] >11.0 HIGH RISK Performing Lab: see note - [facility] LB FREE T3 Reviewed date:10/20/2024 02:37:54 PM Interpretation: Performing Lab: Notes/Report: [facility] , Free T3 3.43 2.18-3.98 pg/mL Performing Lab: see note ML - [facility] LB CBC AUTO DIFF Reviewed date:10/20/2024 02:37:54 PM Interpretation: Performing Lab: Notes/Report: [facility] , White Blood Count 6.2 4.0-11.0 10 [...] 3/uL Performing Lab: see note ML - [facility] LB Upper Respiratory Culture Reviewed date:08/14/2024 12:38:01 PM Interpretation: Performing Lab: Notes/Report: [facility] , Upper Respiratory Culture See Below For Report Upper Respiratory Culture Upper Respiratory Culture Routine [facility] [place] Upper Respiratory Culture [facility] Res[facility] Upper Respiratory Culture [address], [place], [place] [id number] Upper Respiratory Culture Upper Respiratory Culture Advertising Solicitor: Samir Newberry PhD, Phone: [phone] Upper Respiratory Culture Performing Lab: see note LC - [facility] LB 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 Ordering Physician: Anitha Mcgregor M.D. Date of Service: 06/06/24 Procedure(s): CT int auditory canals w/o con Accession Number(s): [id number] cc: Anitha Mcgregor M.D. [place] [address] Patient Name: SKIP HONG MRN: [id number] date: 1955 Sex: F Assigned Patient Location: CT Current Patient Location: Accession/Order Number: [id number] Exam Date: 06/06/2024 08:53 Report Date: 06/09/2024 [...] Signed By: 06/09/24 0833 DD/ 0831 TD/TT: Wilton Weaver: GLYCOHEMOGLOBIN A1C Reviewed date:10/20/2024 02:37:54 PM Interpretation: Performing Lab: Notes/Report: [facility] , Glycohemoglobin A1C 5.7 4.5-6.2 % ADA RECOMMENDED LIMIT 4.0 - 6.0 ADA THERAPEUTIC TARGET < 7.0 ACTION SUGGESTED > 7.0 Estimated Average Glucose 117 Performing Lab: see note ML - [facility] LB UA (URINALYSIS), COMPLETE (8 1000) [...] A neg FLU B neg Control present Reason For Referral Diagnosis 1 Jaw pain (R68.84) Referral Organization [facility] Referring Provider First Name Noe Referring Provider Last Name sabrina [facility]erred Provider [place] Referred Provider Specialty Otolaryngolo gy Referral Priority Routine Diagnosis 1 Jaw pain (R68.84) Referral Organization [facility] Referring Provider First Name Noe Referring Provider Last Name Meche Referring Provider [facility] yocasta Referred Provider [place] Referred Provider Specialty Otolaryngolo gy Referral Priority Routine Diagnosis 1 TMJ (sprain of tempo romandibular joint) (S03.40XA) Referral Organization [facility] Referring Provider First Name Noe Referring Provider Last Name Meche [facility] Referred Provider [place] Referred Provider Specialty Otolaryngolo gy Referral Priority Routine Diagnosis 1 Senile osteoporosis (M81.0) Referral Organization [facility] Referring Provider First Name Noe Referring Provider Last Name Meche [facility] Referred Provider Tunde Vásquez Referred Provider Specialty Orthopedic S urgery Referral Priority Routine Diagnosis 1 Left hip pain (M25.5 52) Diagnosis 2 Aseptic necrosis of bone of left hip (M87.052) Referral Organization [facility] Referring Provider First Name Noe Referring Provider Last Name Meche Referring Provider [facility] Referred Provider Neil Evans Referred Provider Specialty Orthopedic S urgery Referral Priority Routine Medications Medication SIG (Take, Route, Frequency, Duration) Notes Start Date End Date Status Triamcinolone Acetonide 0.1 % 1 application do not rinse afterwards and avoid eating or drinking for 30 minutes Mouth/Throat Q 4 h; Duration: 30 days 06/13/2024 Active Gabapentin 100 MG 2 capsule Orally at 6AM, 12PM, 6PM and take 300mg at bedtime; Duration: 30 days 02/24/2025 Active valACYclovir HCl 1 GM 1 tablet Orally tid; Duration: 10 days then 1 po Q day forever PRN 07/20/2024 Active Ginseng Active Levothyroxine Sodium 25 MCG 1 tablet [...] Orally Once a day PRN 10/23/2023 Active HYDROcodone-Acetaminophen 5-325 MG 1 tablet Orally qid - prn; Duration: 7 03/06/2025 Active Nurtec 75 MG 1 tablet on the tong ue and allow to dissolve Orally; Duration: 30 days PRN Active Promethazine HCl 25 MG 1 tablet as neede d Orally q6h; Duration: 5 days PRN 03/07/2024 Active Plavix 75 MG 1 tablet Orally twic e weekly; Duration: 90 days 10/30/2023 Active Immunizations Vaccine Route Administration Date Status Comme nts Flu, Fluad (31734) 65 yrs + High Dose Seasonal (3544-6818) Unknown 04/09/2022 Administered SARS-COV-2 (COVID 19 Moderna [...] Status Risk Notes Problem Low back pain (366406234) Low back pain (M54.5) Active confirmed Problem Acute pancreatitis (647675544) Pancreatitis, acute (577.0) Active confirmed Problem Anxiety disorder (302191683) Other specified anxiety disorders (F41.8) Active confirmed Problem Migraine without aura, not refractory (disorder) (352232889) Migraine, unspecified, not intractable, without status migrainosus (G43.909) Active confirmed Problem Palpitations (91963771) Palpitations (R00.2) Active confirmed Problem Aphasia (67761434) Aphasia (R47.01) Active conf irmed Problem Senile osteoporosis (74446227) Senile osteoporosis (M81.0) Active confirmed Problem Hyperlipidemia (24909112) Hyperlipidemia (E78.5) Active confirmed Problem Gastroesophageal reflux disease (816798001) GERD (gastroesophageal reflux disease) (K21.9) Active confirmed Problem Cervical radiculopathy (46821578) Cervical radiculopathy (M54.12) Active confirmed Problem Carpal tunnel syndrome (53853982) Carpal tunnel syndrome (G56.00) Active confirmed Problem Hypothyroid (74317349) Hypothyroid (E03.9) Active confirmed Problem Arthritis (8365539) Arthritis (M19.90) Active confirmed Problem Osteopenia (078072134) Osteopenia (M85.80) Active confirmed Problem Vertigo (365513052) Vertigo (R42) Active confirmed Problem Eczema (78431500) Eczema (L30.9) Active confirm ed Problem Dementia (44589076) Dementia (F03.90) Active confirmed Problem Diverticular disease of colon (212282070) Diverticulosis (K57.90) Active confirmed Problem Migraine (55549016) Migraine (G43.909) Active confirmed Problem Back pain (122483159) Back pain (M54.9) Active confirmed Problem Constipation (13637984) Constipation (K59.00) Active confirmed Problem Dysphagia (79419782) Dysphagia (R13.10) Active confirmed Problem Arthralgia of the pelvic region and thigh (805226804) Left hip pain (M25.552) Active confirmed Problem Pain in limb (05970127) Foot pain, right (M79.671) Active confirmed Problem Shingles (1264233) Shingles (B02.9) Active conf irmed Problem Memory loss (22679355) Memory loss (R41.3) Active confirmed Problem Fibromyalgia (706067907) Fibromyalgia (M79.7) Active confirmed Problem Cervical spondylosis (962094534) Cervical spondylosis (M47.812) Active confirmed Problem Acute sinusitis (30357819) Acute sinus infection (J01.90) Active confirmed Problem Gastroenteritis (78152532) Gastroenteritis (K52.9) Active confirmed Problem Aphthous ulcer (934468794) Aphthous ulcer (K12.0) Active confirmed Problem Inflammatory bowel disease (69071400) Inflammatory bowel disease (K63.89) Active confirmed Problem Pituitary cyst (454759964) Pituitary cyst (E23.6) Active confirmed Problem Reflex sympathetic dystrophy (351100080) Reflex sympathetic dystrophy (G90.50) Active confirmed Problem Aphthous stomatitis (706025914) Aphthous stomatitis (K12.0) Active confirmed Problem Acute urinary tract infection (796791754) Acute UTI (N39.0) Active confirmed Problem Spasm (14915369) Trapezius muscl e spasm (M62.838) Active confirmed Problem Amnesia (42535970) Memory diffic ulty (R41.3) Active confirmed Problem Aseptic necrosis of bone of left hip (43061595270751706 ) Aseptic necrosis of bone of left hip (M87.052) Active confirmed Problem Irritable bowel syndrome (75996903) Irritable bowel syndrome (IBS) (K58.9) Active confirmed Problem Closed trimalleolar fracture (4053979) Trimalleolar fracture of ankle, closed, left, initial encounter (S82.852A) Active confirmed Problem Severe recurrent 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 without psychotic features (16460029) 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, 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, recurrent, 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) Active confirmed Problem Sprain of jaw (96331117) TMJ (sprain of temporomandibular joint) (S03.40XA) Active confirmed Problem Left upper quadrant pain (507096272) Left upper quadrant abdominal pain (R10.12) Active confirmed Problem Chronic kidney disease stage 3A (disorder) (392733191) Chronic kidney disease, stage 3a (N18.31) Active confirmed Problem Hemiplegia of nondominant side as late effect of cerebrovascular disease (149667577) Hemiparesis of left nondominant side as late effect of other cerebrovascular disease (I69.854) Active confirmed Vital Signs Heart Rate 57 /min 11/03/2024 Temperature 98.5 degrees Fahrenheit 04/28/2024 Blood pressure diastolic 62 mm Hg 03/06/2025 Height 63 in 03/06/2025 Blood pressure systolic 118 mm Hg 03/06/2025 Weight 135 lbs 03/01/2025 BMI 23.91 kg/m2 03/01/2025 Encounters Encounter Location Date Provider Diagnosis [facility] [address] [place] [address] 04/11/2024 Donna Torres [facility] [address] [place] [address] 05/11/2024 Noe Mcgregor [facility] [address] [place] [address] 05/23/2024 Noe Mcgregor [facility] [address] [place] [address] 06/01/2024 Noe Mcgregor [facility] [address] [place] [address] 06/02/2024 Noe Hoy Cervical radiculopat hy M54.12 and Acute non-recurrent sinusitis, unspecified location J01.90 [facility] [address] [place] [address] 06/03/2024 Noe Hoy Cervical radiculopat hy M54.12 [facility] [address] [place] [address] 06/09/2024 Noe Mcgregor [facility] [address] [place] [address] 06/14/2024 Noe Mcgregor [facility] [address] [place] [address] 06/16/2024 Noe Hoy Jaw pain R68.84 [facility] [address] [place] [address] 06/17/2024 Noe Mcgregor Screening for osteoporosis Z13.820 [facility] [address] [facility] [place] [address] 06/22/2024 Noe Mcgregor TMJ (sprain of temporomandibular joint) S03.40XA [facility] [address] [facility] [place] [address] 07/18/2024 Noe Mcgregor Jaw pain R68.84 [facility] [address] [facility] [place] [address] 08/09/2024 Noe Mcgregor [facility] [address] [facility] [place] [address] 08/14/2024 Noe Mcgregor [facility] [address] [facility] [place] [address] 08/16/2024 Noe Mcgregor [facility] [address] [facility] [place] [address] 08/19/2024 Noe Mcgregor [facility] [address] [place] [place] [address] 10/19/2024 Noe Mcgregor Aphthous stomatitis K12.0 [facility] [address] [facility] [place] [address] 10/20/2024 Noe Mcgregor [facility] [address] [facility] [place] [address] 10/20/2024 Noe Mcgregor [facility] [address] [facility] [place] [address] 11/14/2024 Noe Mcgregor [facility] [address] [facility] [place] [address] 12/19/2024 Noe Mcgregor Electronic Health Records [address] [place] [facility] [address] 10/19/2024 Noe Mcgregor [facility] [address] [facility] [place] [address] 02/05/2025 Noe Mcgregor [facility] [address] [facility] [place] [address] 02/23/2025 Noe Mcgregor Cervical radiculopat hy M54.12 [facility] [address] [facility] [place] [address] 02/24/2025 Noe Hoy Cervical radiculopat hy M54.12 [facility] [address] [facility] [place] [address] 02/26/2025 Noe Songy [facility] [address] [place] [place] [address] 03/03/2025 Noe Hoy [facility] [address] [facility] [place] [address] 03/06/2025 Noe Hoy Preprocedural examin ation Z01.818 [facility] [address] [facility] [place] [address] 03/06/2025 Noe Songy [facility] [address] [facility] [place] [address] 03/07/2025 Noe Hoy [facility] [address] [facility] [place] [address] 03/07/2025 Noe Hoy Senile osteoporosis M81.0 and Aseptic necrosis of bone of left hip M87.052 [facility] [address] [facility] [place] [address] 03/08/2025 Noe Hoy Trimalleolar fractur e of ankle, closed, left, initial encounter S82.852A [facility] [address] [facility] [place] [address] 03/08/2025 Noe Hoy Left hip pain M25.55 2 and Aseptic necrosis of bone of left hip M87.052 [facility] [address] [facility] [place] [address] 03/09/2025 Noe Hoy [facility] [address] [facility] [place] [address] 04/28/2024 Noe Hoy Acute non-recurrent sinusitis, unspecified location J01.90 and Nasal congestion R09.81 [facility] [address] [facility] [place] [address] 07/20/2024 Noe Hoy Aphthous ulcer K12.[address] [address] 08/10/2024 Noe Hoy Aphthous stomatitis K12.[address] [address] 12/15/2024 Noe Hoy Depression of infanc y to splitting machine operator helper, 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, recurrent, 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 F33.2 and Gastroenteritis K52.[address] [address] 08/04/2024 Noe Hoy Aphthous ulcer K12.[address] [address] 05/05/2024 Noe Hoy Reflex sympathetic dystrophy G90.50 and Mastoiditis H70.[address] [address] 06/02/2024 Noe Hoy Acute non-recurrent sinusitis, unspecified location J01.90 and Nasal congestion R09.[address] [address] 06/13/2024 Noe Hoy Jaw pain R68.84 and Chronic sinus complaints R09.[address] [address] 06/22/2024 Noe Hoy Urinary frequency R3 5.0 ; Dementia F03.90 ; TMJ (sprain of temporomandibular joint) S03.40XA and Acute UTI N39.[address] [address] 04/20/2024 Noe Hoy Acute bronchitis, unspecified organism J20.9 ; Acute non-recurrent sinusitis, unspecified location J01.90 and Nasal congestion R09.[address] [address] 10/19/2024 Noe Hoy Migraine G43.909 ; Medicare annual wellness visit, subsequent Z00.00 and Encounter for Medicare annual wellness exam Z00.[address] [address] 05/11/2024 Noe Hoy Cervical radiculopat hy M54.12 [facility] [address] [place] [address] 11/03/2024 Noe Mcgregor Chronic kidney disea se, stage 3a N18.31 ; Hypothyroid E03.9 and Migraine G43.909 [facility] [address] [place] [address] 03/01/2025 Noe Mcgregor Trimalleolar fractur e of ankle, closed, left, initial encounter S82.852A [facility] [address] [facility] [place] [address] 03/06/2025 Noe Mcgregor Trimalleolar fractur e of ankle, closed, left, initial encounter S82.852A and Left hip pain M25.552 [address] [facility] [place] [address] 10/19/2024 Noe Mcgregor [place] [place] [address] 10/20/2024 Noe Mcgregor Dizziness R42 Assessments Encounter Date Diagnosis (ICD Code) Assessment Notes Treatment Notes Treatment Clinical Notes Section Notes 04/20/2024 Acute bronchitis, unspecified organism (ICD-10 - J20.9) Rest and drink more liquids, especially water. You may use a humidifier or vaporizer to help keep the drainage moist. Bukh-ipl-apjkxhb Nasal Saline may help the stuffy and runny nose. Use Ibuprofen and or Tylenol as needed for fever, chills, body aches or pain. Children 5 years old should not be given hztw-boq-tcchyub cough and cold medications such as guaifenesin and dextromethorphan. If you're over age 5, you may try ozzg-zzo-qxebzhw cold medications such as guaifenesin and dextromethorphan, [...] vaporizer to help keep the drainage moist. Wzci-cmw-etcgcgj Nasal Saline may help the stuffy and runny nose. Use Ibuprofen and or Tylenol as needed for fever, chills, body aches or pain. Children 5 years old should not be given kryx-lbu-akikzfz cough and cold medications such as guaifenesin and dextromethorphan. 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 Try to avoid foods/substances including dairy products, caffeine, alcohol, nicotine and fatty or highly seasoned foods. Medications such as ibuprofen or tylenol can make your stomach more upset, so use sparingly if at all. Also avoid zhmf-yhq-wdpncqc anti-diarrheal medications because it can make it harder for your body to eliminate the virus. 03/01/2025 Trimalleolar fracture of ankle, closed, left, initial encounter (ICD-10 - S82.852A) 03/06/2025 Trimalleolar fracture of ankle, closed, left, initial encounter (ICD-10 - S82.852A) 03/06/2025 Left hip pain (ICD-10 - M25.552) Left hip CT needed stat for possibel Avasc ular necrosis of femoral heal and pain worsening 06/02/2024 Cervical radiculopathy (ICD-10 - M54.12) 06/13/2024 [...] concerns about ongoing dizzy spells and [place] 06/03/2024 Cervical radiculopathy (ICD-10 - M54.12) 06/16/2024 Jaw pain (ICD-10 - R68.84) 06/17/2024 Screening for osteoporosis (ICD-10 - Z13.820) 06/22/2024 TMJ (sprain of temporomandibular joint) (ICD-10 - S03.40XA) 07/18/2024 Jaw pain (ICD-10 - R68.84) 10/19/2024 Aphthous stomatitis (ICD-10 - K12.0) 02/23/2025 Cervical radiculopathy (ICD-10 - M54.12) 02/24/2025 Cervical radiculopathy (ICD-10 - M54.12) 03/06/2025 Preprocedural examination (ICD-10 - Z01.818) 03/07/2025 Senile osteoporosis (ICD-10 - M81.0) 03/07/2025 Aseptic necrosis of bone of left hip (ICD-10 - M87.052) 03/08/2025 Trimalleolar fracture of ankle, closed, left, initial encounter (ICD-10 - S82.852A) 03/08/2025 Left hip pain (ICD-10 - M25.552) 03/08/2025 Aseptic necrosis of bone of left hip (ICD-10 - M87.052) 10/20/2024 Dizziness (ICD-10 - R42) 11/03/2024 Chronic kidney disease, stage 3a (ICD-10 - N18.31) 11/03/2024 Hypothyroid (ICD-10 - E03.9) 04/28/2024 Acute non-recurrent sinusitis, unspecified location (ICD-10 - J01.90) Rest and drink more liquids, especially water. You may use a humidifier or vaporizer to help keep the drainage moist. Hhfa-qsb-mcbuvjg Nasal Saline may help the stuffy and runny nose. Use Ibuprofen and or Tylenol as needed for fever, chills, body aches or pain. Children 5 years old should not be given vsfs-dqz-mllinhd cough and cold medications such as guaifenesin and dextromethorphan. If you're over age 5, you may try vrqz-ocj-ztrkzbg cold medications such as guaifenesin and dextromethorphan, [...] unable to take other similar - need [facility] 06/22/2024 TMJ (sprain of temporomandibular joint) (ICD-10 - S03.40XA) 06/02/2024 Acute non-recurrent sinusitis, unspecified location (ICD-10 - J01.90) 06/02/2024 Nasal congestion (ICD-10 - R09.81) 04/20/2024 Acute non-recurrent sinusitis, unspecified location (ICD-10 - J01.90) Rest and drink more liquids, especially water. You may use a humidifier or vaporizer to help keep the drainage moist. Pbia-qux-bedshhy Nasal Saline may help the stuffy and runny nose. Use Ibuprofen and or Tylenol as needed for fever, chills, body aches or pain. Children 5 years old should not be given apqq-rca-eoxdwla cough and cold medications such as guaifenesin and dextromethorphan. If you're over age 5, you may try oeyz-pvm-timlqbg cold medications such as guaifenesin and dextromethorphan, [...] Name Order Date CMP (COMPLETE METABOLIC PANEL) 3 CULTURE, STOOL 12/15/2024 HEMOGLOBIN A1C (GLYCO) 03/06/2023 IRON, TOTAL 03/06/2023 LIPID PANEL (CHOL/TRIG/HDL/LDL) 03/06/20 23 CBC WITH DIFF 03/06/2023 VITAMIN D, 25 LEVEL (TOTAL) 03/06/2023 CTA Neck (Carotids) 07/29/2023 CT Abdomen and Pelvis w/contrast * 11/11 MRI Brain w/o contrast 07/29/2023 MRI Lumbar Spine w/o contrast 03/19/2023 CREATININE 03/06/2025 RHEUMATOID PANEL 10/30/2023 Insulin Level 03/06/2023 CULTURE, [...] 07/29/2023 MRI BRAIN WO W CON 02/29/2024 MRI HIP LT WO CON 03/06/2025 US ABD 12/10/2022 US ARTERY LEG QING 10/23/2023 XR ABD FLAT UP_PA CH 03/18/2023 XR DEXA BONE DENSITY 03/07/2025 XR LSPINE 2_3 VIEWS 03/18/2023 THYROID PANEL (T4/TSH/FREE T3) THYROID PANEL (T4/TSH/FREE T3) ECHOCARDIO M/2D COMPLETE 07/29/2023 OCCULT BLOOD X 1, STOOL 12/15/2024 DEXA BONE DENSITY 06/17/2024 Lipid Panel 10/19/2024 CT HIP LEFT W CONTRAST 03/06/2025 Insurance Providers Payer Name Payer Address Payer Phone Subscriber Number Group Number Insured Name Patient Relationship to Insured Coverage Start Date Coverage End Date [employer]AN [address] [place] [address] [id number] Skip Hong Self - patient is the insured 2 Medications Administered Medication Instructions Date of Administration Dosage Notes Dexamethasone, 4mg/mL 03/01/2025 8 mg Kenalog-40 03/06/2023 80 mg Kenalog-40 10/30/2023 120 [...] mg 60 Ketorolac Tromethamine 05/05/2024 60 mg Ketorolac Tromethamine 03/06/2025 60 mg Orphenadrine Citrate 03/18/2023 60 mg [...] 25 Triamcinolone 40 mg/ml 06/02/2024 80 mg Triamcinolone 40 mg/ml 03/06/2025 120 mg Medical (General) History Medical History History [...] C5-C7 Medial Branch Block Dr.H chi 07/2022 Pins, plates, screws left ankle 02/06/25 Hospitalization History Reason Date(Month/Year) see above
--- OUTSIDE RECORDS SUMMARY | 2025-03-15 10:15 | XMS_ITS | Clinical Summary ---
Author Organization [facility] Address [id number] [address] [place] [address] Care Team Providers Care Collision Estimator Name Role Phone Min Mcgregor MD Primary Care Provider [phone] Allergies Active Allergy Reactions Criticality Noted Date Comments Adhesive Tape-Silicones Rash Low 06/03/2022 Aspirin Anaphylaxis High 09/13/2009 Sulfamethoxazole-Trimet hoprim GI Disturbance Medium 06/03/2022 Ciprofloxacin Rash Low 06/03/2022 Hydrocodone-Homatropine Other (See Comments) Etodolac Rash Low 06/03/2022 Morphine GI Disturbance Low 09/13/2009 Oxycodone-Acetaminophen Rash Low 06/03/2022 Promethazine Hcl Low 09/13/2009 Butorphanol Rash Low 06/03/2022 Theophylline Syncope High 06/03/2022 [place], N/V, blurred vision, insomnia Medications ibuprofen (ADVIL,MOTRIN) [...] (07/10/2022): Added automatically from request for surgery [id number] 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 region 06/03/2022 Overview (06/03/2022): Added automatically from request for surgery [id number] Social History Tobacco Use Types Packs/Day Years [...] on file Insurance [employer] Care Teams Collision Estimator Relationship Specialty Start Date End Date Min Mcgregor MD PCP - General Family Medicine 05/30/22
--- OUTSIDE RECORDS SUMMARY | 2025-03-15 10:15 | XMS_ITS | Clinical Summary ---
Author Organization [facility] Address [address] [place] [address] Care Team Providers Care Process Inspector Name Role Phone Min Mcgregor MD Primary Care Provider +- Luli Roy (Hist) Unavailable [phone] Shimon Roblero Unavailable [phone] Allergies Active Allergy Reactions Criticality Noted Date [...] N ot on file 05/21/2020 Data from: [email or web address] Last address used for calculation Not [...] Protein, Total 7.2 6.0 - 8.4 g/dL [facility] Albumin 4.6 3.5 - 5.0 g/dL [facility] Calcium 10.2 8.5 - 10.5 mg/dL [facility] Bilirubin, Total 0.4 0.0 - 1.5 mg/dL [facility] Alkaline Phosphatase 69 40 - 150 U/L [facility] AST 23 7 - 40 U/L [facility] Glucose 108(H) 65 - 100 mg/dL [facility] BUN 11 8 - 25 mg/dL [facility] Creatinine 0.81 0.70 - 1.40 mg/dL [facility] Sodium 141 132 - 148 mmol/L [facility] Potassium 4.4 3.5 - 5.0 mmol/L [facility] Chloride 106 98 - 110 mmol/L [facility] CO2 23 23 - 32 mmol/L [facility] Anion Gap 12 0 - 15 mmol/L [facility] ALT 19 0 - 45 U/L [facility] eGFR- >60 [facility] eGFR-All Other Races >60 . [facility] Comment: eGFR (Estimated GFR) [...] EDT Jeremy Snyder MD LABORATORY Final Result [facility] [address] [place] [address] from Last 3 Months or Most Recently Relevant to Health Maintenance Insurance [facility] MEDICARE ADVANTAGE O Care Teams Process Inspector Relationship Specialty Start Date End Date Min Mcgregor MD PCP - General 09/07/09 Luli Roy (Hist)MD [address] [place] [address] Referring Gastroenterology 05/04/18 Shimon Roblero PA [address] [place], [place] [id number] Referring Pain Management 08/29/22
--- OUTSIDE RECORDS SUMMARY | 2025-03-15 10:15 | XMS_ITS | Encounter Summary ---
Author Organization [facility] Address [address] [place] [address] Care Team Providers Care Administrative Law Judge Name Role Phone Min Mcgregor MD Primary Care Provider [phone] Josh Fernandez OD Unavailable Encounter Details Date Type Department Care Team (Late st Contact Info) Description 08/15/2024 Orders Only [facility] [address] [facility] [address] [place] [address] Min Mcgregor MD [address] [facility] [place] [address] Social History Tobacco Use Types Packs/Day Years [...] on filedocumented in this encounter Care Teams Administrative Law Judge Relationship Specialty Start Date End Date Min Mcgregor MD PCP - General Family Medicine 07/27/23 Josh Fernandez OD [address] [place] [address] Referring Physician Optometry 01/11/24 documented as of this encounter
--- OUTSIDE RECORDS SUMMARY | 2025-03-15 10:15 | XMS_ITS | Encounter Summary ---
Author Organization [facility] Address [address] [place] [address] Care Team Providers Care Cae Engineer Name Role Phone Min Mcgregor MD Primary Care Provider [phone] Josh Fernandez OD Unavailable Encounter Details Date Type Department Care Team (Late st Contact Info) Description 01/18/2024 Clinisync Result Encounter [facility] External [facility] Unsolicited Basim Phan, DO [address] [place], [place] [id number] Social History Tobacco Use Types Packs/Day Years [...] on filedocumented in this encounter Care Teams Cae Engineer Relationship Specialty Start Date End Date Min Mcgregor MD PCP - General Family Medicine 07/27/23 Josh Fernandez OD [address] [place] [address] Referring Physician Optometry 01/11/24 documented as of this encounter
== END 2025-03-15 10:12 | disposition home or self-care (01) ==
LOC: RAD 10:11
PROVIDERS: PCP Family Medicine; Visit Provider Family Medicine
DX: M81.0 Age-related osteoporosis without current pathological fracture (principal); M85.88 Other specified disorders of bone density and structure, other site
CPT/HCPCS: 77080

== ENCOUNTER 2025-04-21 10:22 | Outpatient (OUT) | payer MEDICARE, SELFPAY ==
--- OUTSIDE RECORDS SUMMARY | 2020-09-21 05:00 | XMS_ITS | Continuity of Care Document ---
Author Organization [facility] Address [address] [place] [address] Phone Care Team Providers Care Manager Of Radiology Name Role Phone Ronni Quezada Unavailable Unavailable Allergies, Adverse Reactions, Alerts Substance Reaction Status Criticality aspirin Anaphylaxis Active No Information Procedures Procedure Date Moderna COVID Vaccine Admin Dose 2 Moderna COVID-19 Vaccine Moderna COVID Vaccine Admin Dose 1 Moderna COVID-19 Vaccine Advance Directives Directive Yes / No Effective Date File Name No Information Encounters Encounter Description Practice Location Reason(s) For Visit Diagnoses Date Provider Providers Copied on Encounter [facility], [address] [place], [place], [id number], [place] tel:[phone] COVID ECHD Covid-19 (chief complaint) No Information Diamondi DO Rudolph. [address] [place], [place], [id number], [place]. tel:[phone] [facility], [address] [place], [place], [id number], [place] tel:[phone] COVID ECHD No Information Visci Ronni. [address] [place], [place], [id number], [place]. tel:[phone] Family History Family Member Type Diagnosis Age At Onset No Information Immunizations Vaccine Date Status Comments Moderna COVID administered Source: New Im munization Record Moderna COVID administered Source: New Im munization Record Payers Payer name Insurance type Covered alliance party ID Authoriza tion(s) Medicare PPS MB [id number] Medicare PPS MB [id number] Medicare PPS MB [id number] Social History Type Description Quantity Date Captured Comments Alcohol Use Details Unknown Caffeine Use Details Unknown Tobacco Use Status No Information Smoking Status No Information Sex Female Sexual Orientation Straight or heterosexual Gender Identity Female Chief Complaint And Reason For Visit From encounter dated '09/21/2020 10:00'. Covid-19 (chief complaint). 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
--- OUTSIDE RECORDS SUMMARY | 2024-12-22 10:45 | XMS_ITS ---
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 Stomach pain vomiting. * Medical History: Objective: * Vitals: Assessment: Plan: * Treatment: * * Electronic signature of Noe Mcgregor MD, [id number] on 04/21/2025 at 10:26 AM EST Sign off status: PendingVisit Status:?CANCPHONE (Cancelled Phone) * Provider: Anu Mcgregor MD (TTC) Date: 0 12/22/2024 Generated for Printing/Faxing/eTransmitting on:?04/21/2025 10:26 AM EST
--- OUTSIDE RECORDS SUMMARY | 2025-04-10 03:33 | XMS_ITS ---
Author Organization [facility] [place] Address [address] [place] [address] Care Team Providers Care Junk Removal Specialist Name Role Phone Noe Mcgregor Primary Care Provider REASON FOR VISIT Thyroid, rf plavix Medications Medication SIG (Take, Route, Frequency, Duration) Notes Start Date End Date Status Plavix 75 MG 1 tablet Orally three times week ly; Duration: 90 days 10/30/2023ctiveLiothyronine Sodium 5 MCG1 tablet on an empty stomach Orally Once a day; Duration: 30 days04/10/2025tive Encounters Encounter Location Date Provider Diagnosis [address] [address] 04/10/2025 Noe Mcgregor Hypothyroid E03. 9 Assessments Encounter Date Diagnosis (ICD Code) Assessment Notes Treatment Notes Treatment Clinical Notes Section Notes 04/10/2025 Hypothyroid (ICD-10 - E03.9) Plan Of Treatment Medication Medication Name Sig Start Date Stop Date Notes Levothyroxine Sodium 25 MCG 1 tablet in the morning on an empty stomach Orally Once a day 11/03/2024 Plavix 75 MG1 tablet Orally three times weekly; Duration: 90 days10/30/2023 Liothyronine Sodium 5 MCG1 tablet on an empty stomach Orally Once a day; Duration: 30 days04/10/2025Pending Test Test Name Order Date THYROID PANEL (T4/TSH/FREE T3) Progress Notes * Pamella CALEROOB:1955 ([age] yo F)Acc No.[id number]:04/10/2025 Patient:?Skip CALERO :1955???Age:70 Y???Sex:FemalePhone:[phone] Address:[address] [place] [address], [place], [address] * Refills Stop Levothyroxine Sodium Tablet, 25 MCG, Orally, 1 tablet in the morning on an empty stomach, Oncea day Refill Plavix Tablet, 75 MG, Orally, 36, 1 tablet, three times weekly, 90 days, Refills=3 Start Liothyronine Sodium Tablet, 5 MCG, Orally, 30 Tablet, 1 tablet on an empty stomach, Once a day, 30 days, Refills=11 Subjective: * Chief Complaints: * T hyroid, rf plavix * Medical History: * Surgical History: * Hospitalization/Major Diagno stic Procedure: * Medications: Objective: * Vitals: * Physical Examination: ??? Assessment: * Assessment: 1.?Hypothyroid - E03.9??? Plan: * Treatment: Stop Levothyroxine Sodium Tablet, 25 MCG, 1 tablet in the morning on an empty stomach, Orally, Oncea day.?LAB: THYROID PANEL (T4/TSH/FREE T3)2.?Others? Refill Plavix Tablet, 75 MG, 1 tablet, Orally, three times weekly, 90 days, 36, Refills 3;?Start Liothyronine Sodium Tablet, 5 MCG, 1 tablet on an empty stomach, Orally, Once a day, 30 days, 30 Tablet, Refills 11.?? * Procedure Codes: * true * Date:?Generated for Printing/Faxing/eTransmitting on:?04/21/2025 10:25 AM EST
--- OUTSIDE RECORDS SUMMARY | 2025-04-21 10:26 | XMS_ITS | Clinical Summary ---
Author Organization [employer] s tem Address [id number] [address] [place] [address] Care Team Providers Care Non Destructive Evaluation Manager Name Role Phone Min Mcgregor MD Primary Care Provider [phone] Allergies Active AllergyReactionsCriticalityNoted DateCommentsAdhesive Tape-SiliconesRash Low06/03/20229566AlhrbpmTtafpizpctcMmhr53/01/2010Sulfamethoxazole-TrimethoprimGI QmhylogymqrIkicgh58/20/8192UwgsfmhhjlkjtGocrEbh23/20/2022Hydrocodone-Homatropine Other (See Comments)08/07/20228868UlcyigryKipwJpw20/20/2022MorphineGI DisturbanceLow 09/13/2009Oxycodone-FguastgutbzhxCmohBby44/20/2022romethazine WcmRqv2609/13/2009 TaczjqmgaleKmjtEtu23/20/2893XabjarjequtoFrrupdhTbsk74/20/2022 [place], N/V, blurred vision, insomnia Medications MedicationSigDispense QuantityRefillsLast FilledStart DateEnd DateStatus ibuprofen (ADVIL,MOTRIN) 200 mg tablet Take 1 tablet (200 mg total) by mouth every 6 (six) hours as needed.Active tiZANidine (ZANAFLEX) 2 mg tablet Take by mouth nightly.05/07/2022ctive HYDROcodone-acetaminophen (NORCO) 5-325 mg per tablet Take 1 tablet by mouth every 8 (eight) hours as needed.Active acetaminophen (TYLENOL EXTRA STRENGTH) 500 mg tablet Take 1 tablet (500 mg total) by mouth every 6 (six) hours as needed for pain. Active acidophilus-pectin, citrus 25 million cell -100 mg tablet Take by mouth 3 (three) times a day with meals.Active docusate sodium (COLACE) 100 mg capsule Take 1 capsule (100 mg total) by mouth in the morning and 1 capsule (100 mg total) before bedtime.Active polyethylene glycol (GLYCOLAX) 17 gram packet Take 17 g by mouth as needed.Active SUMAtriptan (IMITREX) 100 mg tablet Take 1 tablet (100 mg total) by mouth once as needed for migraine. May repeat in 2 hours if unresolved. Do not exceed 200 mg in 24 hours.Active oxyCODONE-acetaminophen (PERCOCET) 5-325 mg per tablet TAKE 1 TABLET BY MOUTH THREE TIMES DAILY NEEDED FOR PAIN (7 days)05/07/2022 Active gabapentin (NEURONTIN) 100 mg capsule Take 1 capsule (100 mg total) by mouth in the morning and 1 capsule (100 mg total) before bedtime.07/31/2022ctive hydrOXYzine (ATARAX) 25 mg tablet Take 1 tablet (25 mg total) by mouth 4 (four) times a day as needed.08/15/2022 Active Active Problems ProblemNoted DateDiagnosed DateCervical spondylosis without xpxbehuagc08/26/2023 Overview (07/10/2022): Added automatically from request for surgery [id number] 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 qobfoe3206/03/2022 Overview (06/03/2022): Added automatically from request for surgery [id number] Social History Tobacco UseTypesPacks/DayYears UsedDateSmoking Tobacco: NeverSmokeless Tobacco: Never Tobacco Cessation:Counseling Given: Not Answered ChildcareAnswerDate LrkamuiyMkbdtutzjDamlqjg92/12/2019EmploymentAnswerDate VpnfodhxFnpdykrtjeXtayrem95/12/2019Hunger ScreeningAnswerDate RecordedWithin the past 12 months we worried whether our food would run out before we got money to buy more.Never True08/28/2022Within the past 12 months the food we bought just didn't last and we didn't have money to get more.Never True08/28/2022 CommentsNoSex and Gender InformationValueDate RecordedSex Assigned at BirthNot on fileLegal JatXqjhpd47/06/2015 11:50 AM EDTGender IdentityNot on fileSexual OrientationNot on file Last Filed Vital Signs Vital SignReadingTime TakenCommentsBlood Atkiqnll498/7308/28/2022 10:07 AM EDT Bmstv974608/28/2022 10:07 AM VVAZsemnszagpr61.7 ??C (98 ??F)08/15/2022 1:16 PM EST Respiratory Mgqq511308/15/2022 1:46 PM ESTOxygen Xesawwsqko448%08/28/2022 10:07 AM EDTInhaled Oxygen Concentration--Qyvzyn89.5 kg (133 lb 6.4 oz)08/28/2022 10:07 AM GHEQctruy411 cm (5' 3 )08/07/2022 9:46 AM ESTBody Mass Index23.63008/07/2022 9:46 AM EST Plan of Treatment Health MaintenanceDue DateLast DoneCommentsDepression Rzwphwyor41/30/1968Tobacco Yywiypvcs24/30/1968DTaP,Tdap and Td Vaccines (1 - Tdap)01/11/1975Zoster (Shingles) Vaccine (1 of 2)01/11/2006Fall Risk Bgkxurtvk89/30/2021dult BMI Ztprpuiyv73/3COVID-19 Vaccine (2024- season)2025 10/13/2021, 11/13/2020, 09/21/2020, Additional history existsInfluenza Vaccine , 03/19/2020RSV ( or age 60+ yrs) (1 - 1-dose 75+ series)01/11/2031 Medical Devices Not on file Insurance Care Teams Team MemberRelationshipSpecialtyStart DateEnd Min Mcgregor MD PCP - [facility] Svigqrgt62/16/22
--- OUTSIDE RECORDS SUMMARY | 2025-04-21 10:26 | XMS_ITS | Patient Health Record ---
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 Role Phone Meche Noe Primary Care Provider [phone] Allergies Allergen (clinical drug ingredient) Drug/Non Drug Allergy documented on EMR Reaction Allergy Type Onset Date Status adhesive tape (uncoded)rashAllergyActiveaspirinAspirinanaphylaxisDrug Allergy Activesulfamethoxazole / trimethoprimBactrimUnknownDrug AllergyActivebutorphanol Butorphanol TartratehallucinatiosnsDrug AllergyActiveciprofloxacinCiprovomiting Drug AllergyActivedicyclomineDicyclomine HClDizzinessDrug AllergyActive hydromorphoneDilaudidrashDrug AllergyActivepromethazinePhenerganjerkingDrug AllergyActiveezetimibeZetiapancreatitisDrug AllergyActiveetodolacLodinerashDrug AllergyActiveketorolacKetorolacUnknownDrug AllergyActiveniacinNiacinsevere pain all overDrug AllergyActiveSubstance with 7-jydpgyu-2-methylglutaryl-coenzyme A reductase inhibitor mechanism of action (substance)StatinspancreatitisDrug AllergyActivetramadolTramadolrashDrug AllergyActivemorphineMorphineunknownDrug AllergyActiveorphenadrineOrphenadrineUnknownDrug AllergyActivesumatriptan SUMAtriptanlow HRDrug AllergyActive Results Component Value Reference Range Notes UA (URINALYSIS), COMPLETE (8 1000) - IN OFFICE Reviewed date:08/14/2024 12:38:01 PM Interpretation: Performing Lab: Notes/Report: COLOR light yellow YELLOW - EDWIN CLARITYclearCLEAR - CLEARGLUCOSENEGNEG - NEG MG/DLBILIRUBINNEGNEG - NEGKETONES NEGNEG - NEG MG/DLSPECIFIC GRAVITY1.0051.001 - 1.298UBIDAPNPZNLJFDO8.2 - 1.0 MG/DLNITRITENEGNEG - NEGPROTEINTRACEWBC, URTRACE0 - 4 /HPFCOVID-19, Flu A+B IH Reviewed date:03/01/2025 04:41:58 PM Interpretation: Performing Lab: Notes/Report: COVIDNegFLU AnegFLU BNegControlPresentCT int auditory canals w/o con Reviewed date:06/09/2024 05:55:59 PM Interpretation: Performing Lab: Notes/Report: Source Facility: [place] [address] CT Scan Report Signed Patient: SKIP HONG MR#: [id number] : 1955 Acct:[id number] Age/Sex: 69 / F ADM Date: 06/06/24 Loc: CT Attending Dr: Anitha Mcgregor M.D. Ordering Physician: Anitha Mcgregor M.D. Date of Service: 06/06/24 Procedure(s): CT int auditory canals w/o con Accession Number(s): [id number] cc: Anitha Mcgregor M.D. [place] [address] Patient Name: SKIP HONG MRN: [facility]:[id number] date: 1955 Sex: F Assigned Patient Location: CT Current Patient Location: Accession/Order Number: [id number] Exam Date: 06/06/2024 08:53 Report Date: 06/09/2024 [...] M.D. Signed By: 06/09/24832 DD/ 0 TD/TT: Packaging Coordinator:ARCELIA T3 Reviewed date:10/20/2024 02:37:54 PM Interpretation: Performing Lab: Notes/Report: [facility] Arcelia T33.432.18-3.98 pg/mLPerforming Lab:see noteML - [facility] LB LIPID PROFILE Reviewed date:10/20/2024 02:37:54 PM Interpretation: Performing Lab: Notes/Report: [facility] ,Cnantybwnlpio003<=150 mg/wPZnwvvrepiov408<=200 mg/dLHDL Oqlclrvebmr2046-64 mg/dL > or =60 mg/dl - LOW CARDIOVASCULAR RISK <40 mg/dl - HIGH CARDIOVASCULAR RISK LDL Cholesterol Ekyafbvvxh508.0 <100 mg/dl OPTIMAL 100-129 mg/dl NEAR OR ABOVE OPTIMAL 130-159 mg/dl BORDERLINE HIGH 160-189 mg/dl HIGH >190 mg/dl VERY HIGH VLDL CCDHYYEFUAY58.8Chol HDL Ratio3.8 3.3 - 4.4 LOW RISK 4.4 - 7.1 AVERAGE RISK 7.1 - 11.0 MODERATE RISK >11.0 HIGH RISK Performing Lab:see noteML - [facility] LBPROF 14(COMP METB) Reviewed date:10/20/2024 02:37:54 PM Interpretation: Performing Lab: Notes/Report: [facility] ,Smtnoc623951-269 mmol/LPotassium3.93.5-5.1 mmol/VPoviycaj53186-578 mmol/LCarbon Eyfzzxs76.521.0-32.0 mmol/LAnion Gap12.5Vwbxlro9750-347 mg/dLBlood Urea Nitrogen 21.07.0-18.0 mg/dLCreatinine0.940.55-1.02 mg/dLEstimated GFR ( Jimena>60 >=60 mL/min/1.73m 2Estimated GFR (Non- Ame59>=60 mL/min/1.73m 2BUN Creatinine Ratio22.3Uvixqyh8.28.5-10.1 mg/dLBilirubin Total0.30.2-1.0 mg/dL Aspartate Amino Dgclbqnxfgw6467-73 U/LAlanine Dlbigxsgbvdsmxfj2060-14 U/L Alkaline Ratqwnqextt26351-323 U/LTotal Protein6.76.4-8.2 g/dLAlbumin Level3.4 3.4-5.0 g/dLGlobulin3.3Albumin Globulin Ratio1.0Performing Lab:see note - [facility] LBT4 Reviewed date:10/20/2024 02:37:54 PM Interpretation: Performing Lab: Notes/Report: [facility] ,T4 Thyroxine6.604.80-13.90 ug/dLPerforming Lab:see noteML - [facility] LBTSH Reviewed date:10/20/2024 02:37:54 PM Interpretation: Performing Lab: Notes/Report: [facility] ,Thyroid Stimulating Hormone2.2010.358-3.740 uIU/mLPerforming Lab:see note - [facility] LBCBC AUTO DIFF Reviewed date:02/05/2025 11:04:56 AM Interpretation: Performing Lab: Notes/Report: [facility] ,White Blood Count5.94.0-11.0 10 3/uLRed Blood Count4.254.20-5.40 10 6/uL Pgfoaykwde31.912.0-16.0 g/jGErzkobqewm53.436.0-48.0 %Mean Corpuscular Bhwfxc52.4 81.0-99.0 fLMean Corpuscular Jwtyikljxq17.426.7-34.0 pgMean Corpuscular HGB Conc 33.629.9-35.2 g/dLRed Cell Distribution Width13.211.0-15.0 %Platelet Cnwda166 150-450 10 3/uLMean Platelet Volume9.29.5-13.5 fLNeutrophils Percent Auto63.5 43.0-75.0 %Lymphocytes Percent Auto25.320.5-60.0 %Monocytes Percent Auto9.81.7- 12.0 %Eosinophils Percent Auto0.70.9-7.0 %Basophils Percent Auto0.50.2-2.0 % Immature Granulocytes Pct Auto0.20.0-0.5 %Neutrophils Absolute Auto3.81.4-6.5 10 3/uLLymphocytes Absolute Auto1.51.2-3.8 10 3/uLMonocytes Absolute Auto0.60.3-0.8 10 3/uLEosinophils Absolute Auto0.00.0-0.7 10 3/uLBasophils Absolute Auto0.00.0- 0.1 10 3/uLImmature Granulocytes Abs Auto0.010.00-0.03 10 3/uLPerforming Lab:see noteML - [facility] LBPROF CHEM 8 (BAS METB) Reviewed date:02/05/2025 11:04:57 AM Interpretation: Performing Lab: Notes/Report: [facility] ,Loiise697928-220 mmol/LPotassium3.63.5-5.1 mmol/JUxlwewqo03025-715 mmol/LCarbon Skbnzxn72.321.0-32.0 mmol/LAnion Gap14.5Gnpexwi98443-018 mg/dLBlood Urea Nitrogen9.07.0-18.0 mg/dLCreatinine0.840.55-1.02 mg/dLEstimated GFR ( Jimena>60>=60 mL/min/1.73m 2Estimated GFR (Non- Anita>60>=60 mL/min/1.73m 2BUN Creatinine Ratio10.3Nlnbpfe3.88.5-10.1 mg/dLPerforming Lab:see note - [facility] LBPTT Reviewed date:02/05/2025 11:04:57 AM Interpretation: Performing Lab: Notes/Report: [facility] ,Partial Thromboplastin Time25.222.3-36.2 secPerforming Lab:see note - [facility] LBProthrombin Time INR Reviewed date:02/05/2025 11:04:57 AM Interpretation: Performing Lab: Notes/Report: [facility] ,Prothrombin Time10.19.0-11.6 secINR0.95 DESIRED INR: 2.0-3.0 CONDITIONS NOT LISTED BELOW 2.5-3.5 FOR PROSTHETIC HEART VALVE REPLACEMENT 2.5-3.5 RECURRENT THROMBOSIS Performing Lab:see note - [facility] LBType and Screen Reviewed date:02/05/2025 11:04:57 AM Interpretation: Performing Lab: Notes/Report: [facility] ,Blood TypeO PositiveAntibody ScreenNEGATIVEXR ANKLE LT 2V Reviewed date:02/05/2025 11:04:57 AM Interpretation: Performing Lab: Notes/Report: Source Facility: [facility]-[address] [place] [address] [place] [address] XRay Report Signed Patient: SKIP HONG MR#: [id number] : 1955 Acct:[id number] Age/Sex: 70 / F ADM Date: 02/04/25 Loc: ER Attending Dr: Ordering Physician: Augusto Bear Date of Service: 02/04/25 Procedure(s): XR ankle LT 2V Accession Number(s): [id number] cc: Anitha Mcgregor M.D.; Augusto Bear [place] [address] Patient Name: SKIP HONG MRN: [id number] date: 1955 Sex: F Assigned Patient Location: ER Current Patient Location: ER Accession/Order Number: [id number] Exam Date: 02/04/2025 14:05 Report Date: 02/04/2025 [...] Shaffer M.D. 02/04/2025 2:33 PM Dictation Location: [place] [address] Electronically authenticated by: [id number] Y Date: 02/04/2025 14:33 Dictated By: Josh Shaffer M.D. Signed By: 02/04/252014 DD/ 32 TD/TT: Packaging Coordinator:XR tibia fibula LT 2V Reviewed date:02/05/2025 11:04:57 AM Interpretation: Performing Lab: Notes/Report: Source Facility: [place] [address] XRay Report Signed Patient: SKIP HONG MR#: [id number] : 1955 Acct:[id number] Age/Sex: 70 / F ADM Date: 02/04/25 Loc: ER Attending Dr: Ordering Physician: Augusto Bear Date of Service: 02/04/25 Procedure(s): XR tibia fibula LT 2V Accession Number(s): [id number] cc: Anitha Mcgregor M.D.; Augusto Bear [place] [address] Patient Name: SKIP HONG MRN: [id number] date: 1955 Sex: F Assigned Patient Location: ER Current Patient Location: ER Accession/Order Number: [id number] Exam Date: 02/04/2025 14:05 Report Date: 02/04/2025 [...] Shaffer M.D. 02/04/2025 2:34 PM Dictation Location: [place] [address] Electronically authenticated by: [id number] Y Date: 02/04/2025 14:34 Dictated By: Josh Shaffer M.D. Signed By: 02/04/252014 DD/ 1434 TD/TT: Packaging Coordinator:XR ANKLE LT 2V Reviewed date:02/05/2025 11:04:57 AM Interpretation: Performing Lab: Notes/Report: Source Facility: [place] [address] [place] [address] XRay Report Signed Patient: SKIP HONG MR#: [id number] : 1955 Acct:[id number] Age/Sex: 70 / F ADM Date: 02/04/25 Loc: ER Attending Dr: Ordering Physician: Umair Villalpando Date of Service: 02/04/25 Procedure(s): XR ankle LT 2V Accession Number(s): [id number] cc: Anitha Mcgregor M.D.; Umair Villalpando [place] [address] Patient Name: SKIP HONG MRN: [id number] date: 1955 Sex: F Assigned Patient Location: ER Current Patient Location: ER Accession/Order Number: [id number] Exam Date: 02/04/2025 14:15 Report Date: 02/04/2025 [...] Shaffer M.D. 02/04/2025 2:36 PM Dictation Location: [place] [address] Electronically authenticated by: [id number] Y Date: 02/04/2025 14:36 Dictated By: Josh Shaffer M.D. Signed By: 02/04/252014 DD/ 35 TD/TT: Packaging Coordinator:XR hip LT 2V w/ pelvis Reviewed date:02/26/2025 12:41:11 PM Interpretation: Performing Lab: Notes/Report: Source Facility: [facility]-[address] [place] [address] [place] [address] XRay Report Signed Patient: SKIP HONG MR#: [id number] : 1955 Acct:[id number] Age/Sex: 70 / F ADM Date: 02/24/25 Loc: ER Attending Dr: Ordering Physician: Candelario Mendiola Date of Service: 02/24/25 Procedure(s): XR hip LT 2V w/ pelvis Accession Number(s): [id number] cc: Candelario Mendiola; Anitha Mcgregor M.D. [place] [id number] Patient Name: SKIP HONG MRN: [id number] date: 1955 Sex: F Assigned Patient Location: ER Current Patient Location: ER Accession/Order Number: [id number] Exam Date: 02/24/2025 19:50 Report Date: 02/24/2025 [...] Hays M.D. 02/24/2025 8:29 PM Dictation Location: [place] [address] Electronically authenticated by: [id number] Y Date: 02/24/2025 20:29 Dictated By: Javy Hays M.D. Signed By: 02/24/252030 DD/ 28 TD/TT: Packaging Coordinator:XR ankle LT min 3V Reviewed date:02/26/2025 12:41:11 PM Interpretation: Performing Lab: Notes/Report: Source Facility: [place] [address] [place] [address] XRay Report Signed Patient: SKIP HONG MR#: [id number] : 1955 Acct:[id number] Age/Sex: 70 / F ADM Date: 02/24/25 Loc: ER Attending Dr: Ordering Physician: Candelario Mendiola Date of Service: 02/24/25 Procedure(s): XR ankle LT min 3V Accession Number(s): [id number] cc: Candelario Mendiola; Anitha Mcgregor M.D. [place] [address] Patient Name: SKIP OHNG MRN: [id number] date: 1955 Sex: F Assigned Patient Location: ER Current Patient Location: ER Accession/Order Number: [id number] Exam Date: 02/24/2025 19:50 Report Date: 02/24/2025 [...] Hays M.D. 02/24/2025 8:30 PM Dictation Location: [place] [address] Electronically authenticated by: [id number] Y Date: 02/24/2025 20:30 Dictated By: Javy Hays M.D. Signed By: 02/24/252031 DD/ 29 TD/TT: Packaging Coordinator:CREATININE Reviewed date:03/06/2025 01:08:43 PM Interpretation: Performing Lab: Notes/Report: [facility] ,Creatinine1.040.55-1.02 mg/dLEstimated GFR ( Jimena>60>=60 mL/min/1.73m 2Estimated GFR (Non- Ame53>=60 mL/min/1.73m 2Performing Lab:see noteML - [facility] LBMR hip LT wo/w con Reviewed date:03/06/2025 03:21:35 PM Interpretation: Performing Lab: Notes/Report: Source Facility: [place] [address] Magnetic Resonance Report Signed Patient: SKIP HONG MR#: [id number] : 1955 Acct:[id number] Age/Sex: 70 / F ADM Date: 03/06/25 Loc: LAB Attending Dr: Anitha Mcgregor M.D. Ordering Physician: Anitha Mcgregor M.D. Date of Service: 03/06/25 Procedure(s): MR hip LT wo/w con Accession Number(s): [id number] cc: Anitha Mcgregor M.D. [place] [address] Patient Name: SKIP HONG MRN: [id number] date: 1955 Sex: F Assigned Patient Location: LAB Current Patient Location: LAB Accession/Order Number: [id number] Exam Date: 03/06/2025 13:15 Report Date: 03/06/2025 [...] Shaffer M.D. 03/06/2025 2:57 PM Dictation Location: [place] [address] Electronically authenticated by: [id number] Y Date: 03/06/2025 14:57 Dictated By: Josh Shaffer M.D. Signed By: 03/06/25 1500 DD/ 1457 TD/TT: Packaging Coordinator:CBC AUTO DIFF Reviewed date:10/20/2024 02:37:54 PM Interpretation: Performing Lab: Notes/Report: [facility] ,White Blood Count6.24.0-11.0 10 3/uLRed Blood Count4.544.20-5.40 10 6/uL Kflusmsoio32.212.0-16.0 g/zSYkacjahckz44.236.0-48.0 %Mean Corpuscular Sadzxj90.2 81.0-99.0 fLMean Corpuscular Conojkocus40.326.7-34.0 pgMean Corpuscular HGB Conc 32.929.9-35.2 g/dLRed Cell Distribution Width13.211.0-15.0 %Platelet Twnwg986 150-450 10 3/uLMean Platelet Volume9.09.5-13.5 fLNeutrophils Percent Auto55.1 43.0-75.0 %Lymphocytes Percent Auto30.620.5-60.0 %Monocytes Percent Auto11.81.7- 12.0 %Eosinophils Percent Auto1.50.9-7.0 %Basophils Percent Auto0.80.2-2.0 % Immature Granulocytes Pct Auto0.20.0-0.5 %Neutrophils Absolute Auto3.41.4-6.5 10 3/uLLymphocytes Absolute Auto1.91.2-3.8 10 3/uLMonocytes Absolute Auto0.70.3-0.8 10 3/uLEosinophils Absolute Auto0.10.0-0.7 10 3/uLBasophils Absolute Auto0.10.0- 0.1 10 3/uLImmature Granulocytes Abs Auto0.010.00-0.03 10 3/uLPerforming Lab:see noteML - [facility] LBUpper Respiratory Culture Reviewed date:08/14/2024 12:38:01 PM Interpretation: Performing Lab: Notes/Report: [facility] ,Upper Respiratory CultureSee Below For Report Upper Respiratory Culture Upper Respiratory CultureRoutine respiratory [place] Upper Respiratory Culture Upper Respiratory CulturePerformed at: [facility] Upper Respiratory Culture Upper Respiratory [address] [place] [id number] Upper Respiratory Culture Upper Respiratory CultureLab Director: Samir Newberry PhD, Phone: [phone] Upper Respiratory Culture Performing Lab:see note LC - [facility] LB SEE REPORT - [facility] Attendant Id information not found for OBX-specific environmental studies faculty member legend LAB TESTING Reviewed date:08/21/2024 09:54:43 AM Interpretation: Performing Lab: Notes/Report: [id number] Viral Culture, General [facility] ,Miscellaneous TestCOMMENT. Test Ordered: [id number] Viral Culture, General Viral Culture, General Note: BN No virus isolated. Reference Range: . Please indicate source of specimen on all future request forms. Performed at: [address] [id number] Threader Operator: Yasmine Trinh MD, Phone: [phone] Performed at: [facility] [address] [place], [place] [id number] Threader Operator: Samir Newberry PhD, Phone: [phone] Performing Lab:see noteLC - [facility] LBGLYCOHEMOGLOBIN A1C Reviewed date:10/20/2024 02:37:54 PM Interpretation: Performing Lab: Notes/Report: [facility] ,Glycohemoglobin A1C5.74.5-6.2 % ADA RECOMMENDED LIMIT 4.0 - 6.0 ADA THERAPEUTIC TARGET < 7.0 ACTION SUGGESTED > 7.0 Estimated Average Avkqeow339Lyjwrpesjf Lab:see noteML - [facility] LB Reason For Referral Diagnosis 1 Jaw pain (R68.84) Referral Organization [facility] Referring Provider First Name Noe Referring Provider Last Name Meche Referring Provider [facility] Med yocasta Referred Provider Love Yan Referred Provider Specialty Otolaryngolo gy Referral Priority Routine Diagnosis 1 Jaw pain (R68.84) Referral Organization [facility] Referring Provider First Name Noe Referring Provider Last Name Meche Referring Provider [facility] Rashaad rust Referred Provider Love Yan Referred Provider Specialty Otolaryngolo gy Referral Priority Routine Diagnosis 1 TMJ (sprain of tempo romandibular joint) (S03.40XA) Referral Organization [facility] Referring Provider First Name Noe Referring Provider Last Name Meche Referring Provider [facility] Rashaad rust Referred Provider Love Yan Referred Provider Specialty Otolaryngolo gy Referral Priority Routine Diagnosis 1 Senile osteoporosis (M81.0) Referral Organization [facility] Referring Provider First Name Noe Referring Provider Last Name Meche Referring Provider [facility] y[place]asta Referred Provider Tunde Vásquez Referred Provider Specialty Orthopedic S urgery Referral Priority Routine Diagnosis 1 Left hip pain (M25.5 52) Diagnosis 2 Aseptic necrosis of bone of left hip (M87.052) Referral Organization [facility] Referring Provider First Name Noe Referring Provider Last Name Meche Referring Provider [facility] Med y[place]asta Referred Provider Neil Evans Referred Provider Specialty Orthopedic S urgery Referral Priority Routine Diagnosis 1 Aseptic necrosis of bone of left hip (M87.052) Referral Organization [facility] Referring Provider First Name Noe Referring Provider Last Name Meche Referring Provider [facility] yocasta Referred Provider Ryan Ellis Referred Provider Specialty Orthopedic S urgery Referral Priority Routine Medications Medication SIG (Take, Route, Frequency, Duration) Notes Start Date End Date Status Fosamax 70 MG 1 tablet 30 minutes before the first food, beverage or medicine of the day with plain water Orally once a week; Duration: 30 days 03/22/2025tiveGabapentin 100 MG2 capsule Orally at 6AM, 12PM, 6PM and take 300mg at bedtime; Duration: 30 days02/24/2025tiveGinsengActiveHYDROcodone- Acetaminophen 5-325 MG1 tablet Orally qid - prn; Duration: tive Liothyronine Sodium 5 MCG1 tablet on an empty stomach Orally Once a day; Duration: 30 days04/10/2025tiveNitroglycerin 0.4 MG1 tablet under the tongue and allow to dissolve as needed. Take every 5 minutes up to 3 times if chest pain persists Sublingual Three times a day; Duration: 30 daysPRNActiveNurtec 75 MG1 tablet on the tongue and allow to dissolve Orally; Duration: 30 daysPRN ActiveOmeprazole 20 MG1 capsule 30 minutes before morning meal Orally Once a day PRN4ActivePlavix 75 MG1 tablet Orally three times weekly; Duration: 90 days10/30/2023ctivePromethazine HCl 25 MG1 tablet as needed Orally q6h; Duration: 5 nlzrIGP5603/07/2024ctiveTriamcinolone Acetonide 0.1 %1 application do not rinse afterwards and avoid eating or drinking for 30 minutes Mouth/Throat Q 4 h; Duration: 30 days06/13/2024ctivevalACYclovir HCl 1 GM 1 tablet Orally tid; Duration: 10 days then 1 po Q day forever PRN5Active Immunizations Vaccine Route Administration Date Status Comme nts Flu, Fluad (59311) 65 yrs + High Dose Seasonal (3668-4585) Unknown 04/09/2022 Administered SARS-COV-2 (COVID 19 Moderna - Booster 0.25mL)Gpjcbet2808/24/2020dministered SARS-COV-2 (COVID 19 Moderna - Booster 0.25mL)Bxafpgw24/09/2021Administered SARS-COV-2 (COVID 19 Moderna - Booster 0.25mL)Outtoqk92/01/2021Administered SARS-COV-2 (COVID 19 Moderna - Booster 0.25mL)Flegmlw94/01/2022Administered Social History Tobacco Use: Social History Observation Description Date Details (start date - stop date) Never Smoker NA - NA Tobacco Use/Smoking Question Answer Notes Patient is a nonsmoker AUDIT-C (Standard) Question Answer Notes Did you have a drink containing alcohol in the p ast year? No Pmouia0NoxfvvglhqephvSilvdaot Problems Problem Type SNOMED Code ICD Code Onset Dates Problem Status W/U Status Risk Notes Problem Low back pain (536542170) Low back pain ( M54.5) ActiveconfirmedProblemAcute pancreatitis (360879286)Pancreatitis, acute (577.0) ActiveconfirmedProblemAnxiety disorder (542199547)Other specified anxiety disorders (F41.8)ActiveconfirmedProblemMigraine without aura, not refractory (disorder) (742252155)Migraine, unspecified, not intractable, without status migrainosus (G43.909)ActiveconfirmedProblemPalpitations (98992889)Palpitations (R00.2)ActiveconfirmedProblemAphasia (71249557)Aphasia (R47.01)Activeconfirmed ProblemSenile osteoporosis (40648862)Senile osteoporosis (M81.0)Activeconfirmed ProblemHyperlipidemia (42697114)Hyperlipidemia (E78.5)ActiveconfirmedProblem Gastroesophageal reflux disease (530929597)GERD (gastroesophageal reflux disease) (K21.9)ActiveconfirmedProblemCervical radiculopathy (29413016)Cervical radiculopathy (M54.12)ActiveconfirmedProblemCarpal tunnel syndrome (46025257) Carpal tunnel syndrome (G56.00)ActiveconfirmedProblemHypothyroid (54968445) Hypothyroid (E03.9)ActiveconfirmedProblemArthritis (7625019)Arthritis (M19.90) ActiveconfirmedProblemOsteopenia (895499960)Osteopenia (M85.80)Activeconfirmed ProblemVertigo (306763616)Vertigo (R42)ActiveconfirmedProblemEczema (86451676) Eczema (L30.9)ActiveconfirmedProblemDementia (79715390)Dementia (F03.90)Active confirmedProblemOsteoarthritis of knee (410335555)Knee osteoarthritis (M17.9) ActiveconfirmedProblemDiverticular disease of colon (551937271)Diverticulosis (K57.90)ActiveconfirmedProblemMigraine (92596181)Migraine (G43.909)Active confirmedProblemBack pain (004872259)Back pain (M54.9)ActiveconfirmedProblem Constipation (17376176)Constipation (K59.00)ActiveconfirmedProblemOsteoporosis (20127313)Osteoporosis (M81.0)ActiveconfirmedProblemDysphagia (30338180) Dysphagia (R13.10)ActiveconfirmedProblemArthralgia of the pelvic region and thigh (742528556)Left hip pain (M25.552)ActiveconfirmedProblemPain in limb (73643426)Foot pain, right (M79.671)ActiveconfirmedProblemShingles (9051903) Shingles (B02.9)ActiveconfirmedProblemMemory loss (17698391)Memory loss (R41.3) ActiveconfirmedProblemFibromyalgia (083107626)Fibromyalgia (M79.7)Active confirmedProblemCervical spondylosis (611433559)Cervical spondylosis (M47.812) ActiveconfirmedProblemAcute sinusitis (86765967)Acute sinus infection (J01.90) ActiveconfirmedProblemGastroenteritis (14484800)Gastroenteritis (K52.9)Active confirmedProblemAphthous ulcer (483634079)Aphthous ulcer (K12.0)Activeconfirmed ProblemInflammatory bowel disease (36958311)Inflammatory bowel disease (K63.89) 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)Active confirmedProblemReflex sympathetic dystrophy (999866493)Reflex sympathetic dystrophy (G90.50)ActiveconfirmedProblemAphthous stomatitis (182342027)Aphthous stomatitis (K12.0)ActiveconfirmedProblemAcute urinary tract infection (170372136)Acute UTI (N39.0)ActiveconfirmedProblemSpasm (23968661)Trapezius muscle spasm (M62.838)ActiveconfirmedProblemAmnesia (34335933)Memory difficulty (R41.3)ActiveconfirmedProblemAseptic necrosis of bone of left hip (60089248534550675)Aseptic necrosis of bone of left hip (M87.052)Activeconfirmed ProblemIrritable bowel syndrome (75670367)Irritable bowel syndrome (IBS) (K58.9) ActiveconfirmedProblemClosed trimalleolar fracture (5636808)Trimalleolar fracture of ankle, closed, left, initial encounter (S82.852A)Activeconfirmed 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 (46729582) 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, 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, 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, 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)ActiveconfirmedProblemSprain of jaw (37980627)TMJ (sprain of temporomandibular joint) (S03.40XA)ActiveconfirmedProblemLeft upper quadrant pain (973196650)Left upper quadrant abdominal pain (R10.12)Activeconfirmed ProblemChronic kidney disease stage 3A (disorder) (770763448)Chronic kidney disease, stage 3a (N18.31)ActiveconfirmedProblemHemiplegia of nondominant side as late effect of cerebrovascular disease ([id number])Hemiparesis of left nondominant side as late effect of other cerebrovascular disease (I69.854)Active confirmed Vital Signs Heart Rate 57 /min 11/03/2024 Hmzvaoczbzm00.5 degrees Elornzxmxc83/14/2024lood pressure zlhnufpte65 mm Hg 04/21/20251333Bgbibb73 in04/21/2025lood pressure kwajpjso621 mm Hg04/21/2025Weight 130.8 lbs106/21/2024BMI23.17 kg/m204/21/2025 Encounters Encounter Location Date Provider Diagnosis [facility] [address] [place] [address] 03/15/2025 Noe Hoy Aseptic necrosis of bone of left hip M87.052 [facility] [address] [facility] [place] [address] 03/17/2025 Noe Mcgregor [facility] [facility] [place] [address] 03/21/2025Doug [facility] [facility] [place] [address]/Doug HoyTrimalleolar fracture of ankle, closed, left, initial encounter S82.852A[facility] [facility] [place] [address]/Doug HoyHypothyroid E03.9[facility] [facility] [place] [address]/Doug [facility] [facility] [place] [address]/ Noe [facility] [facility] [place] [address]/Doug [facility] [facility] [place] [address]/Doug HoySenile osteoporosis M81.0 and Aseptic necrosis of bone of left hip M87.052[facility] [facility] [place] [address]/Doug HoyTrimalleolar fracture of ankle, closed, left, initial encounter S82.852[facility] [address] [facility] [place] [address]/Doug HoyLeft hip pain M25.552 and Aseptic necrosis of bone of left hip M87.052[facility] [facility] [place] [address]/Doug [facility] [facility] [place] [address]/ Noe [facility] [facility] [place] [address]/04/2025Doug HoyCervical radiculopathy M54.12[facility] [facility] [address]/05/2025Doug HoyCervical radiculopathy M54.12[facility] [facility] [place] [address]/[facility] [facility] [place] [address]/Doug [facility] [facility] [place] [address]/Doug Hoy Preprocedural examination Z01.818[facility] [facility] [place] [address]/12/2024Doug HoyAphthous stomatitis K12.0[facility] [facility], [place] [address]/12/2024Doug [facility] [facility] [place] [address]/01/2025 [facility] [facility] [place] [address]/01/2025Doug [facility] [facility] [place] [address]/07/2024Doug [facility] [facility] [place] [address]/12/2024Doug [facility] [facility] [place] [address]/01/2025Doug HoyTMJ (sprain of temporomandibular joint) S03.40XAHigh[facility] [facility] [place] [address]/08/2024Doug HoyJaw pain R68.84[facility] [facility] [place] [address]/ Noe [facility] [place] [address]/07/2024Doug [facility] [place] [address]/09/2024Doug [facility] [facility] [place] [address]/12/2024Doug [facility] [facility] [place] [address]/oug HoyCervical radiculopathy M54.12 and Acute non-recurrent sinusitis, unspecified location J01.90[facility] [facility] [place] [address]/oug HoyCervical radiculopathy M54.12[facility] [facility] [place] [address]/oug [facility] [facility] [place] [address]/ Noe [facility] [facility] [place] [address]/07/2024Doug HoyJaw pain R68.84[facility] [facility] [place] [address]/08/2024Doug HoyScreening for osteoporosis Z13.820[facility] [facility] [place] [address]/oug [facility] [facility] [place] [address]/oug [facility] [facility] [place] [address]/oug [facility] [facility] [place] [address]/ Noe HoyAcute non-recurrent sinusitis, unspecified location J01.90 and Nasal congestion R09.81[address] [address] [place] [address]/10/2024Doug HoyAphthous ulcer K12.0[address] [place] [address]/Doug HoyAphthous stomatitis K12.0[address] [place] [address]/01/2025Doug HoyDizziness J33Doyxoxq[address] [place] [address]/12/2024Doug HoyMigraine G43.909 ; Medicare annual wellness visit, subsequent Z00.00 and Encounter for Medicare annual wellness exam Z00.[address] [place] [address]/12/2024Doug HoyBDavid [address] [place] [address]/12/2024Doug HoyTrimalleolar fracture of ankle, closed, left, initial encounter S82.852A and Knee osteoarthritis M17.[address] [place] [address] 12/15/2024Doug Hoy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, 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, recurrent, 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 F33.2 and G[address] K52[address] [place] [address]/Doug Hoy Trimalleolar fracture of ankle, closed, left, initial encounter S82.852AKimberly [place] [address] [place] [address]/ Noe HoyTrimalleolar fracture of ankle, closed, left, initial encounter S82.852A and Left hip pain M25.552BDavid [address] [place] [address]/oug HoyReflex sympathetic dystrophy G90.50 [address] [address]/oug HoyAcute non-recurrent sinusitis, unspecified location J01.90 and Nasal congestion R09.[address] [address]/oug HoyJaw pain R68.84 and Chronic sinus complaints R09.[address] [address]/01/2025Doug HoyUrinary frequency R35.0 ; Dementia F03.90 ; TMJ (sprain of temporomandibular joint) S03.40XA and Acute UTI N39.[address] [address] 08/04/2024Doug HoyAphthous ulcer K12.[address] [address]/oug HoyCervical radiculopathy M54.[address] [address] 11/03/2024Doug HoyChronic kidney disease, stage 3a N18.31 ; Hypothyroid E03.9 and Migraine G43.909 Assessments Encounter Date Diagnosis (ICD Code) Assessment Notes Treatment Notes Treatment Clinical Notes Section Notes 05/05/2024 Reflex sympathetic dystrophy (IC D-10 - G90.50) 05/05/2024Mastoiditis (ICD-10 - H70.90)05/11/2024ervical radiculopathy (ICD-10 - M54.12)06/02/2024cute non-recurrent sinusitis, unspecified location (ICD-10 - J01.90) Rest and drink more liquids, especially water. You may use a humidifier or vaporizer to help keep the drainage moist. Elrw-lnc-koeamah Nasal Saline may help the stuffy and runny nose. Use Ibuprofen and or Tylenol as needed for fever, chills, body aches or pain. Children 5 years old should not be given xyav-nlz-iwpvifz cough and cold medications such as guaifenesin and dextromethorphan. If you're over age 5, you may try crdj-srz-sptbyia cold medications such as guaifenesin and dextromethorphan, or multi-symptom cold reliever such as Dayquil to help reduce the symptoms. Antibiotics have been pre scribed. You should take these until completed and follow the directions. Antibiotics can sometimescause upset stomach, and in rare cases, serious allergic reactions or serious gastrointestinal problems. If you start having severe abdominal pain, severe vomiting, or bloody diarrhea, you should be r eevaluated by your physician or urgent care immediately. Follow up with your Primary Care Provider or return to clinic if symptoms do not improve within 3-5 days 12/15/2024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, 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, recurrent, 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 (ICD-10 - F33.2) disused meds and councelgin recommendation sister just - has PRN valium for that using edibles for 12/15/2024Gastroenteritis (ICD-10 - K52.9)Get plenty of rest. Stay hydrated by sucking on ice chips or taking small sips of water. You can also try drinking clear soda, clear broths or noncaffeinated sports drinks. Stop eating solid foods for a few hours to let your stomach settle. East back into eating by eating bland, vkmn-of-dyfmrh foods like crackers, toast, gelatin, bananas, rice and chicken. Try to avoid foods/substances including dairy products, caffeine, alcohol, nicotine and fatty or highly seasoned foods. Medications such as i buprofen or tylenol can make your stomach more upset, so use sparingly if at all. Also avoid apun-kdq-gwitlxb anti-diarrheal medications because it can make it harder for your body to eliminate the virus.03/01/2025Trimalleolar fracture of ankle, closed, left, initial encounter (ICD-10 - S82.852A)03/06/2025 Trimalleolar fracture of ankle, closed, left, initial encounter (ICD-10 - S82.852A)03/06/2025Left hip pain (ICD-10 - M25.552)Left hip CT needed stat for possibel Avasc ular necrosis of femoral heal and pain ygibnvvih18/07/2025 Trimalleolar fracture of ankle, closed, left, initial encounter (ICD-10 - S82.852A)04/21/2025Knee osteoarthritis (ICD-10 - M17.9)x-ray and knee injecton 06/02/2024ervical radiculopathy (ICD-10 - M54.12)4Cervical radiculopathy (ICD-10 - M54.12)06/16/2024Jaw pain (ICD-10 - R68.84)06/17/2024 Screening for osteoporosis (ICD-10 - Z13.820)06/22/2024TMJ (sprain of temporomandibular joint) (ICD-10 - S03.40XA)07/18/2024Jaw pain (ICD-10 - R68.84) 10/19/2024phthous stomatitis (ICD-10 - K12.0)5Cervical radiculopathy (ICD-10 - M54.12)5Cervical radiculopathy (ICD-10 - M54.12)03/06/2025 Preprocedural examination (ICD-10 - Z01.818)03/07/2025Senile osteoporosis (ICD- 10 - M81.0)03/07/2025septic necrosis of bone of left hip (ICD-10 - M87.052) 03/08/2025Trimalleolar fracture of ankle, closed, left, initial encounter (ICD- 10 - S82.852A)03/08/2025Left hip pain (ICD-10 - M25.552)03/08/2025septic necrosis of bone of left hip (ICD-10 - M87.052)03/15/2025septic necrosis of bone of left hip (ICD-10 - M87.052)04/07/2025Trimalleolar fracture of ankle, closed, left, initial encounter (ICD-10 - S82.852A)04/10/2025Hypothyroid (ICD-10 - E03.9)06/13/2024Jaw pain (ICD-10 - R68.84)06/13/2024hronic sinus complaints (ICD-10 - R09.89)06/22/2024Urinary frequency (ICD-10 - R35.0)06/22/2024Dementia (ICD-10 - F03.90)07/20/2024phthous ulcer (ICD-10 - K12.0)08/04/2024phthous ulcer (ICD-10 - K12.0)08/10/2024phthous stomatitis (ICD-10 - K12.0)10/19/2024 Migraine (ICD-10 - G43.909)patient presents to office for a subsequent medicare wellness appointment, a total of 30 minutes was spent with the patient. anxiety and depression screening was completed without concern, a slums memory test was completed and the patient scored a 30/30, vision test was completed and the patient scored a 20/20. Patient does have concerns about ongoing dizzy spells and HA10/19/2024Medicare annual wellness visit, subsequent (ICD-10 - Z00.00) [...] have concerns about ongoing dizzy spells and HA10/20/2024Dizziness (ICD-10 - R42)11/03/2024hronic kidney disease, stage 3a (ICD-10 - N18.31) 11/03/2024Hypothyroid (ICD-10 - E03.9)04/28/2024cute non-recurrent sinusitis, unspecified location (ICD-10 - J01.90)Rest and drink more liquids, especially water. You may use a humidifier or vaporizer to help keep the drainage moist. Yark-gfp-efpprcb Nasal Saline may help the stuffy and runny nose. Use Ibuprofen and or Tylenol as needed for fever, chills, body aches or pain. Children 5 years old should not be given gqpd-kgi-owuzbtw cough and cold medications such as guaifenesin and dextromethorphan. If you're over age 5, you may try fnht-lkr-mbonjbl cold medications such as guaifenesin and dextromethorphan, or multi-symptom cold reliever such as Dayquil to help reduce the symptoms. Antibiotics have been prescribed. You should take these until completed and follow the directions. Antibiotics can sometimescause upset stomach, and in rare cases, serious allergic reactions or serious gastrointestinal problems. If you start having severe abdominal pain, severe vomiting, or bloody diarrhea, you should be reevaluated by your physician or urgent care immediately. Follow up with your Primary Care Provider or return to clinic if symptoms do not improve within 3-5 days04/28/2024Nasal congestion (ICD-10 - R09.81)11/03/2024Migraine (ICD-10 - G43.909)Failed on sumatryptan - hypotensin - unable to take other similar - need cznmtg4306/22/2024TMJ (sprain of temporomandibular joint) (ICD-10 - S03.40XA)4Acute non-recurrent sinusitis, unspecified location (ICD-10 - J01.90)06/02/2024Nasal congestion (ICD-10 - R09.81)5Acute UTI (ICD-10 - N39.0)10/19/2024Encounter for Medicare annual wellness exam (ICD-10 - [...] 03/18/2023 XR DEXA BONE DENSITY 03/07/2025 XR KNEE LT 3V 04/21/2025 XR LSPINE 2_3 VIEWS 03/18/2023 THYROID PANEL (T4/TSH/FREE T3) 3 THYROID PANEL (T4/TSH/FREE T3) 5 THYROID PANEL (T4/TSH/FREE T3) 5 ECHOCARDIO M/2D COMPLETE 07/29/2023 OCCULT BLOOD X 1, STOOL 12/15/2024 DEXA BONE DENSITY 06/17/2024 Lipid Panel 10/19/2024 CT HIP LEFT W CONTRAST 03/06/2025 Insurance Providers Payer Name Payer Address Payer Phone Subscriber Number Group Number Insured Name Patient Relationship to Insured Coverage Start Date Coverage End Date [employer]TH MEDICARE ADV PLAN [address] [place] [address] [id number] [id number] Hal, Skip Self - patient is the insured 2 Medications Administered Medication Instructions Date of Administration Dosage Notes Dexamethasone, 4mg/mL mgKenalog-40090 mgKenalog-40020 qz025Swsfiazbt Opytcyjnugpc35/04/202360 bw81Ecykrmafn Fkwkmtlluezo56/16/588966 vb02Xijrnrxzd Stbejojsmhhy86/30/202360 mgKetorolac Yxklmvjnnorj04/13/410152 rz70Umcrdzcbo Xkkekciljmel75/15/730205 mgKetorolac Razzaicnsxcx06/14/998804 mx67Jabxmxrzm Erctzcemlozv53/13/858546 oz88Owuisjasi Lyxaxuxjukdf89/17/446055 vz38Zykuiszzc Qkhserjxdbdb24/23/017754 xi67Dgeualsjs Rgpbcdzhempx19/16/136180 sf59Pcteloxyp Apnwceyzcvvf46/21/874487 mgKetorolac Fnnnnndawlbu79/22/612655 mgOrphenadrine Mcbyrlx95 rn11Yxtqupvnskif Jdcnvbj28 kp92Clqnwrcdcwvi Ilnhezc330 mgOrphenadrine Wjfmpdr990 fa71Lnxkolhuckun Citrate 0 mgOrphenadrine Gmttudf39/13/100645 wr43Bqzksuumqcdu Citrate 0 jr20Xniqtufdwmvb Eqhlqbw47/23/706265 mgPromethazine 25mg mLPromethazine, 25 mg gE68Rqolvrlxskrr, 25 mg425 mg25 Triamcinolone 40 mg/ml480 mgTriamcinolone 40 mg/ml20 mg Medical (General) History Medical History History [...] R00.2 Vertigo R42 Surgical History Surgery Date(Month/Year) Lumbar sympathetic block 03/29/2025 dexa scan 03/15/25 Pins, plates, screws left ankle 02/06/25 Bilateral C5-C7 Medial Branch Block Dr.H chi 07/2022 Epidural Steroid Inj C-Spine 06/2022 ERCP- Dr. Brownlee 06/2018 CHOLECYSTECTOMY Hospitalization History Reason Date(Month/Year) see above
--- OUTSIDE RECORDS SUMMARY | 2025-04-21 10:26 | XMS_ITS | Clinical Summary ---
Author Organization [facility] Address [address] [place] [address] Care Team Providers Care Digital Music Instructor Name Role Phone Min Mcgregor MD Primary Care Provider [phone] JimJosh wilks OD Unavailable Allergies Active AllergyReactionsCriticalityNoted DateCommentsAspirinAnaphylaxisHigh 09/13/20099351ByhndogomfoUohhLkj69/01/2010 Other Reaction(s): Other: See Comments Qdeldwghjo87/06/4504BaunadbbxhuteJbrcLgt52/20/2022 Other Reaction(s): Other: See Comments FtuvqrahRgabMfk16/01/2149ZsiucmmwxlhdiDzbqWpi70/27/8705EdjbfrntEnf10/01/2010 Other Reaction(s): GI Disturbance Oxycodone-ObwfaagpjvrvtPngiQpg73/20/2022 Other Reaction(s): Other: See Comments DfrkbgzneqahSkd51/01/2010Sulfamethoxazole-SvbrupwhrmkdTyzovz68/20/2022 Other Reaction(s): GI Disturbance EidnviprfoopLcei95/20/2022 Other Reaction(s): Syncope [place], N/V, blurred vision, insomnia Medications MedicationSigDispense QuantityRefillsLast FilledStart DateEnd DateStatus liothyronine (Cytomel) 5 MCG tablet 04/24/2023ctive gabapentin (Neurontin) 100 MG capsule 03/27/2023ctive acetaminophen (Tylenol) 500 MG tablet Take 500 mg by mouth every 6 (six) hours if neededActive ibuprofen 200 MG tablet Take 200 mg by mouth every 6 (six) hours if neededActive SUMAtriptan (Imitrex) 100 MG tablet Take 100 mg by mouth 1 (one) time if needed for migraineActive Plavix 75 MG tablet 1 (one) time each day at the same time10/30/2023ctive diazePAM (Valium) 5 MG tablet every 8 (eight) hours03/07/2024ctive Docusate Sodium (DSS) 100 MG capsule Take 100 mg by mouth in the morning and 100 mg in the evening.Active pantoprazole (Protonix) 40 MG EC tablet 1 (one) time each day at the same time04/28/2024ctive promethazine (Phenergan) 25 MG tablet 1 tablet as needed Orally q6h for 5 days03/07/2024ctive Rimegepant Sulfate (Nurtec) 75 MG tablet dispersible 1 tablet on the tongue and allow to dissolve Orally Repeat in 2 hours if necc, max 2/day for 10 days03/07/2024ctive divalproex (Depakote) 125 MG EC tablet Take 125 mg by mouth in the morning and 125 mg in the evening and 125 mg before bedtime. Do not crush, chew, or split..Active triamcinolone (Kenalog) 0.1 % oral paste APPLY TO THE AFFECTED AREA do not rinse afterwards and avoid eating or drinking for 30 MINUTES EVERY 4 HOURS5Active valACYclovir (Valtrex) 1 g tablet Take 1,000 mg by mouth in the morning and 1,000 mg in the evening and 1,000 mg before bedtime.5Active Active Problems ProblemNoted DateDiagnosed DateCarpal tunnel syndrome on both sides10/08/2023 Advancing evophfkj10/25/2024ge-related nuclear cataract of both eyes07/27/2023 Cervical spondylosis without xeqloklofd41/26/2023 Overview (06/17/2024): Added automatically from request for surgery [id number] 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 ycffnw2806/03/2022 Overview (06/17/2024): Added automatically from request for surgery [id number] Idiopathic chronic zppwywbfsepg61/29/2018Abdominal pain09/20/2009Fibromyalgia 09/20/2009 Social History Tobacco UseTypesPacks/DayYears UsedDateSmoking Tobacco: NeverSmokeless Tobacco: Never Tobacco Cessation:Counseling Given: Not Answered Alcohol UseStandard Drinks/WeekCommentsNot Currently0 (1 standard drink = 0.6 oz pure alcohol)CommentsUnknownSex and Gender InformationValueDate Recorded Sex Assigned at BirthNot on fileLegal DydDayrjl87/15/2023 6:56 PM EDTGender IdentityNot on fileSexual OrientationNot on file Last Filed Vital Signs Vital SignReadingTime TakenCommentsBlood Xszacntu608/8003 10:22 AM EST Efrdj442208/15/2024 10:22 AM ESTTemperature--Respiratory Mxuc049310/08/2023 12:15 PM EDTOxygen Fmhvvlxevy98%07/20/2024 2:12 PM ESTInhaled Oxygen Concentration-- Bdqxct56.3 kg (133 lb)08/15/2024 10:22 AM LTDRdqeer766 cm (5' 3 )08/15/2024 10:22 AM ESTBody Mass Index23.56008/15/2024 10:22 AM EST Plan of Treatment Not on file Insurance Care Teams Team MemberRelationshipSpecialtyStart DateEnd Min Mcgregor MD PCP - GeneralFamily Medicine07/27/23 Josh Fernandez OD [address] [place] [phone] Referring PhysicianOptometry01/11/24
--- OUTSIDE RECORDS SUMMARY | 2025-04-21 10:26 | XMS_ITS | Clinical Summary ---
Author Organization [facility] Address [address] [place] [id number] Care Team Providers Care Person Investigator Name Role Phone Min Mcgregor MD Primary Care Provider + Luli Roy (Hist) Unavailable [phone] Shimon Roblero Unavailable [phone] Allergies Active AllergyReactionsCriticalityNoted DateCommentsAdhesive Tape (Rosins)Other: See OyamyphzMdkcdxv00/01/2010CiprofloxacinOther: See CommentsHydromorphone (Bulk)Rash04/10/2011Hydrocodone-HomatropineOther: See SypazcmlLcomkxfh79/01/2010 Zjltqmxd76/01/2010Oxycodone-AcetaminophenOther: See CommentsPromethazine Hcl 09/13/2009utorphanol TartrateOther: See Arjvdnhv74/01/2010 Medications MedicationSigDispense QuantityRefillsLast FilledStart DateEnd DateStatus calcium carb/vit d3/minerals(CALTRATE 600+D PLUS MINERALS 600 MG (1,500 MG)-400 UNIT CHEWABLE TAB) Take one(1) tablet daily.ctive sucralfate 1 gram ORAL tablet Take 1 g by mouth four times daily as needed.11/13/2011ctive rosuvastatin (CRESTOR) 10 mg ORAL tablet Take 10 mg by mouth once daily.Active hyoscyamine sublingual 0.125 mg Subl Dissolve 0.125 mg under the tongue before meals and at bedtime.Active conjugated estrogens (PREMARIN) vaginal cream Indications:Every other dayUse vaginally once daily. Indications: Every other dayActive CLOTRIMAZOLE/BETAMETHASONE DIP (CLOTRIMAZOLE-BETAMETHASONE TOPICAL) Apply to affected area twice daily.Active tiZANidine (ZANAFLEX) 4 mg tablet TAKE 1 TABLET BY MOUTH EVERY EVENING AT UFEXTQB944/14/2018Active predniSONE (DELTASONE) 10 mg tablet TAKE 4 TABLETS BY MOUTH DAILY FOR 2 WEEKS, then decrease by ONE-HALF TABLET EVERY MVQM359Active sulwkx-eauzbkzn-gaoonqs (CREON) 24,000-76,000 -120,000 unit cpDR Take by mouth three times daily with meals.Active traMADol (ULTRAM) 50 mg tablet Take 50 mg by mouth every 6 hours as needed.Active promethazine (PHENERGAN) 25 mg tablet Take 25 mg by mouth every 6 hours as needed.Active omeprazole (PRILOSEC) 20 mg capsule Take 20 mg by mouth once daily.Active ibuprofen (MOTRIN) 200 mg tablet Take 200 mg by mouth every 6 hours as needed.Active HYDROcodone-acetaminophen (NORCO) 5-325 mg per tablet Take 1 tablet by mouth every 8 hours as needed.Active Active Problems ProblemNoted DateDiagnosed DateIdiopathic chronic lutoohfppnkv46/29/2018 Assessment & Plan (05/13/2018 1:00 PM EST): [...] of steroid treatment as per Primary GI Mmvvhlhmwzfi33/08/2010bdominal pain09/20/2009 Assessment & Plan (05/13/2018 12:56 PM EST): [...] with pain management clinic Family History Medical HistoryRelationCommentsepilepsyBrothermentally challenged, heart, lung diseaseCOPDFatherEmphysemaFatherHeartFatherStrokeFatherperipheral vascularFather ulcerative colitisFatherCOPDMotherEmphysemaMotherHeartMotherhypoglycemiaSister RelationStatusCommentsBrotherFatherMotherSister Social History Tobacco UseTypesPacks/DayYears UsedDateSmoking Tobacco: NeverSmokeless Tobacco: NeverAlcohol UseStandard Drinks/WeekCommentsNo0 (1 standard drink = 0.6 oz pure alcohol)PHQ-2AnswerDate RecordedPHQ-2 ynqng428/09/2023Area Deprivation Index AnswerDate RecordedNational Score (1-100), lower number is lower riskNot on file 05/21/2020State Score (1-10), lower number is lower riskNot on file05/21/2020 Data from: https://www.neighborhoodatlas.[facility]/. Last address used for calculationNot on file05/21/2020CommentsNoSex and Gender Information ValueDate RecordedSex Assigned at BirthNot on fileLegal PazQthcmi68/02/2012 9:00 AM ESTGender IdentityNot on fileSexual OrientationNot on fileOccupationIndustry Job Start DateJob End DateHOMEMAKERNot on fileNot on fileNot on file Last Filed Vital Signs Vital SignReadingTime TakenCommentsBlood Liytqexo464/7205/13/2018 9:42 AM EST Jveer516905/13/2018 9:42 AM ESTTemperature--Respiratory Rate--Oxygen Amomeqezcm87% 05/13/2018 9:42 AM ESTInhaled Oxygen Concentration--Ljbkuw71.4 kg (137 lb 9.6 oz)05/13/2018 9:42 AM JPPUxcazw924 cm (5' 3 )11/13/2011 10:56 AM EDTBody Mass Index24.37011/13/2011 10:56 AM EDT Plan of Treatment Health MaintenanceDue DateLast DoneCommentsAnxiety Qooxukbrb56/30/1974Depression Gcvsubomn10/30/1974Hepatitis C Cufcznuer70/30/1974DTaP,Tdap,Td Vaccine (1 - Tdap)01/11/1975Mammogram Vetcvnlry67/30/1996CT Kcmfskusqlvh53/30/2001Cologuard (FIT-DNA)01/11/20019012Teyeonlsyfk50/30/2001Colorectal Cancer Pzuvonven85/30/2001 Fecal Occult Blood01/11/2001Lipid Jeduzdyfw06/30/0778Omxlqaqtajvmt25/30/2001 Pneumococcal Vaccine: 50+ (1 of 1 - PCV)01/11/2006Shingrix Vaccine (1 of 2) 01/11/2006Diabetes Hicuvvnau10, 09/13/2009one Density Lauikeoli01/30/2021dvance Directive Yysttahffc71/01/2025Medicare Advantage Annual Wellness Visit5Covid-19 Vaccine ( season)2025 10/13/2021, 11/13/2020, 09/21/2020, Additional history existsInfluenza Vaccine (#1)51, 03/19/2020RSV Vaccine (1 - 1-dose 75+ series) 01/11/2031 Procedures Procedure NamePriorityDate/TimeAssociated DiagnosisCommentsCOMPREHENSIVE METABOLIC TYIJDDqajqsg89/08/2010 12:55 PM EDT Abdominal Pain from Last 3 Months or Most Recently Relevant to Health Maintenance Results * (ABNORMAL) COMP METABOLIC PANEL (09/20/2009 12:55 PM EDT)ComponentValueRef RangeTest MethodAnalysis TimePerformed AtPathologist SignatureProtein, Total 7.26.0 - 8.4 g/dLMEMORIAL HOSPITAL MAIN LABORATORYAlbumin4.63.5 - 5.0 g/dL [facility] OZEJDGMUZDFwhjwct57.28.5 - 10.5 mg/dLWH[facility]ITAL LABORATORYBilirubin, Total0.40.0 - 1.5 mg/dLWH[facility] LABORATORYAlkaline Mtmugyvnvqg5082 - 150 U/LCKETTERING [facility] MAIN LABORATORY OKX709 - 40 U/LCMERCY [facility] FPFYNWPPGOEskputp509(H)65 - 100 mg/dL [facility] HOYXQYPYTMDHI483 - 25 mg/dLWH[facility]OS[facility]ITAL LABORATORYCreatinine0.810.70 - 1.40 mg/dLWH[facility]OS[facility]ITAL LABORATORY Sbiabs785071 - 148 mmol/LCMERCY HEALTH ST. [facility] LABORATORYPotassium4.43.5 - 5.0 mmol/LCCLEVELAND CLINIC [facility]ATIONAND [facility] MAIN MCUKCMKEQRRmpxcxgx91598 - 110 mmol/LCKET[facility] MAIN IUITFTTBGZAP68490 - 32 mmol/LCKETTERING [facility] MAIN LABORATORYAnion Hbh161 - 15 mmol/LCKETTER[facility] MAIN YLXYEJKVTGRHN636 - 45 U/LCKETTERING [facility]ALTH [facility]IOR[facility] MAIN LABORATORYeGFR->60[facility] eGFR-All Other Races>60.[facility] LABORATORYComment: eGFR (Estimated GFR) Units of measure: mL/min/1.73 meters squared eGFR is derived from the reexpressed MDRD Study equation using the following parameters: serum creatinine, age, gender and race. The creatinine assay has been calibrated to be traceable to IDMS. An eGFR <60 mL/min/1.73m2 for >3 months is consistent with chronic kidney disease. Refer to KDOQI guidelines for clinical interpretation. Specimen (Source)Anatomical Location / LateralityCollection Method / Volume Collection TimeReceived TimeBlood specimen (specimen)BLOOD SPECIMEN / Unknown 09/20/2009 12:55 PM EDT Narrative Authorizing ProviderResult TypeResult StatusBret Lynda Snyder MDLABORATORYFinal ResultPerforming OrganizationAddressCity/State/ZIP CodePhone Number [facility] [address] [place] [address] from Last 3 Months or Most Recently Relevant to Health Maintenance Insurance Care Teams Team MemberRelationshipSpecialtyStart DateEnd Date Min Mcgregor MD [facility] - General09/07/09 Luli Roy (Hist), [address] [place] [address] GrhrhyptoAgzwitpkpqaaluvh91/20/18 Shimon Roblero PA [address] [place] [address] ReferringPain Management08/29/22
--- OUTSIDE RECORDS SUMMARY | 2025-04-21 10:26 | XMS_ITS | Encounter Summary ---
Author Organization [facility] Address [address] [place] [address] Care Team Providers Care Binder Chainstitch Name Role Phone Min Mcgregor MD Primary Care Provider [phone] Josh Fernandez OD Unavailable Encounter Details DateTypeDepartmentCare Team (Latest Contact Info)Hsyiaqjfklf53/05/2024linisync Result Encounter [facility] Unsolicited Basim Phan, DO [address] [place], [place] [id number] Social History Tobacco UseTypesPacks/DayYears UsedDateSmoking Tobacco: NeverSmokeless Tobacco: NeverCommentsUnknownSex and Gender InformationValueDate RecordedSex Assigned at BirthNot on fileLegal MwoOpsipf62/15/2023 6:56 PM EDTGender Identity Not on fileSexual OrientationNot on filedocumented as of this encounter Plan of Treatment Not on file documented as of this encounter Procedures Procedure NamePriorityDate/TimeAssociated DiagnosisCommentsXR CHEST 2 VIEWS 01/18/2024 10:19 AM EDT documented in this encounter Results * XR CHEST 2 VIEWS (01/18/2024 10:19 AM EDT)Anatomical RegionLateralityModality OtherSpecimen (Source)Anatomical Location / LateralityCollection Method / VolumeCollection TimeReceived Time01/18/2024 10:19 AM EDT Narrative 01/19/2024 4:32 PM EDT Exam Date/Time: 01/18/2024 10:27 EDT Reason for Exam: H25.13 Age-related nuclear cataract, bilateral Report IMPRESSION: ??NO EVIDENCE OF ACTIVE CHEST DISEASE. CLINICAL HISTORY: H25.13 Age-related nuclear cataract, bilateral. ??Preop. COMMENT: The heart is normal in size. The mediastinum is unremarkable. The lungs appear clear. No infiltration nor pleural effusion is evident. There are small metallic surgical clips projecting on the upper thorax on the right and the left. There are surgical clips in the right upper quadrant of the abdomen. Ordering Provider: Basim Phan FINAL REPORT Dictated: ??01/19/2024 4:29 pm ? Karthik Rice M.D. Signed (Electronic Signature): ??01/19/2024 4:29 pm Signed by: ??Karthik Rice M.D. Transcribed by: ??[place] ? Technologist: ??FAITH Technical Comments Radiation Dose: Ka,r in mGy [...] in mGy = na DAP = na Authorizing ProviderResult TypeResult StatusJolouisa Phan DOCLINISYNC IMAGINGFinal Result documented in this encounter Visit Diagnoses Not on filedocumented in this encounter Care Teams Team MemberRelationshipSpecialtyStart DateEnd Date Min Mcgregor MD PCP - GeneralFamily Medicine07/27/23 [place] [address] [place] [address] Referring PhysicianOptometry01/11/24documented as of this encounter
--- OUTSIDE RECORDS SUMMARY | 2025-04-21 10:28 | XMS_ITS | CCD ---
Author Organization [facility] Care Team Providers Care [employer] Associate Name Role Phone Anitha Ramey MD Primary Care Provider [phone] Luli Roy MD (Hist) Unavailable [phone] ANITHA RAMEY Primary Care Unavailable BENJAMIN MOORE Attending Unavailable HOY, DR WELSH Consulting Unavailable HOY, [...] DR WELSH Primary Care Unavailable HOTyron, DR WLESH Attending Unavailable HOY, DR WELSH [...] Consulting Unavailable LUZ MARIA FIGUEREDO Consulting Unavailable ACACIA, DR SUERO Consulting Unavailable ACACIA, DR SUERO Attending Unavailable HAY, DR SUERO Admitting Unavailable AIDEY, DR WELSH Primary Care Unavailable [...] HOY, DR WELSH Consulting Unavailable HOY, DR WELHS Primary Care Unavailable HOY, DR WELSH Attending Unavailable HOY, DR WELSH Admitting Unavailable WEST, DR MARK Almendarez Consulting Unavailable Prasad Isabel Unavailable Bentley Bragg Unavailable Unavailable Primary Care Provider UnavailAnitha Montague MD Primary Care Provider [phone] Cindy Aguilar Admitting Unavailable Cindy Aguilar Attending Unavailable Cindy Aguilar Referring Unavailable ZahlCindy wilks Admitting Unavailable Cindy Aguilar Attending Unavailable Cindy Aguilar Referring Unavailable Jim KEN, Oral Unavailable MIGUEL ÁNGEL ROSALES Attending Unavailable DIVYA DUDLEY Attending Unavailable MIGUEL ÁNGEL ROSALES Attending Unavailable JASVIR SMILEY Attending Unavailable MIGUEL ÁNGEL ROSALES Referring Unavailable CINDY AGUILAR Attending Unavailable DIVYA DUDLEY Attending Unavailable Anitha Ramey MD Primary Care Provider [phone] Oswaldo DEMARCO-COOK DINNER-C, Екатерина Conklin Attending Provider Dax Matt DO Admit Provider [phone] Dax Matt DO Other Provider Ravin Campoverde MD Attending Provider Ravin Campoverde MD Other Provider Maricruz Tobias MD Other Provider Clint Sotelo DO Other Provider [phone] Ryan Henderson MD Other Provider [phone] Steven Ramsay DO Other Provider Miguel Ángel Rosales DO Attending Provider Bentley Bragg MD Attending Provider [phone] Miguel Ángel Rosales DO Referring Provider Ryan Henderson MD Attending Provider Bentley Bragg MD Other Provider Olexa, Ravin Attending Unavailable Anitha Ramey Primary Care Unavailable Olexa, Ravin Admitting Unavailable Olexa, Ravin Admitting Unavailable Anitha Ramey Primary Care Unavailable Olexa, Ravin Attending Unavailable Anitha Ramey Primary Care Unavailable Ryan Henderson II Admitting Unavailabl e Santiago WILKS, Ryan Olivera Attending Unavailabl e Yemi, Bentley S Admitting Unavailable Yemi, Bentley S Attending Unavailable Anitha Ramey Primary Care Unavailable Yemi, Bentley S Admitting Unavailable Yemi, Bentley S Attending Unavailable Anitha Ramey Primary Care Unavailable Olexa, Ravin Admitting Unavailable Anitha Ramey Primary Care Unavailable Olexa, Ravin Attending Unavailable Dax Matt Admitting Unavailabl e DoameHeath meneses Attending Unavailab Anitha Krueger Primary Care Unavailable Olexa, Ravin Consulting Unavailable Maricruz Tobias Consulting Unavailable Clint Sotelo Consulting Unavailable Ryan Henderson II Consulting Unavailabl e Steven Ramsay Consulting Unavailable Olexa, Ravin Attending Unavailable Anitha Ramey Primary Care Unavailable Olexa, Ravin Admitting Unavailable Anitha Ramey MD Primary Care Provider Allergies Allergy ClassificationReported Allergen(s)Allergy TypeDate of OnsetReaction(s) Facility (17 sources)Acetaminophen / oxyCODONE; Translations: [OXYCODONE-ACETAMINOPHEN] Drug Ucocnzw34-81-0374Pqhyw: See Peter, [facility] (3 sources)Adhesive Tape; Translations: [ADHESIVE TAPE (ROSINS)]Allergy to substanceOther: See [facility] (20 sources)Aspirin; Translations: [ASPIRIN]Drug Dblejko27-95-3533Mvqfjpf, Unknown Reaction, AnaphylaxisCleSumma [facility] (3 sources)Butorphanol; Translations: [BUTORPHANOL TARTRATE]Drug Allergy 18-56-0495Pdayv: See CommentsOhio[facility] (20 sources)Ciprofloxacin; Translations: [CIPROFLOXACIN]Drug Bqhhzgn96-41-9354 Other: See Comments, RashOhiohealth Grant Medical Center (3 sources)Etodolac; Translations: [ETODOLAC]Drug Fjjjvte08-70-7514Mvwtyrock [facility] (3 sources)homatropine / HYDROcodone; Translations: [HYDROCODONE-HOMATROPINE] Drug AllergyOther: See CommentsOhiohealth Grant Medical Center (3 sources)HYDROmorphone; Translations: [HYDROMORPHONE (BULK)]Drug Allergy 56-86-8638EsggVodzxpqmk Clinic (20 sources)Morphine; Translations: [MORPHINE]Drug Szbfvkj48-43-3822Ujgxcqv, Unknown Reaction, Abdominal PainOhiohealth Grant Medical Center (3 sources)Promethazine; Translations: [PROMETHAZINE HCL]Drug Fzisptj57-49-3919 [facility] (1 source)Acetaminophen / oxyCODONEDrug AllergyThe [facility] (1 source)AspirinDrug AllergyThe [facility] (5 sources)Butorphanol; Translations: [Stadol]Drug AllergyUnkSt. Charles Hospital [facility] (1 source)CiprofloxacinDrug AllergyThe [facility] (1 source)DesonideDrug AllergyThe [facility] (3 sources)Etodolac; Translations: [Lodine]Drug AllergyThe [facility] (1 source)homatropineDrug AllergyThe [facility] (3 sources)HYDROmorphone; Translations: [Dilaudid]Drug AllergyThe [facility] (3 sources)Levamisole; Translations: [Phenergan]Drug AllergyThe [facility] (1 source)MorphineDrug AllergyThe [facility] (1 source)Bleach (Sodium Hypochlorite)Drug allergy (disorder)81-00-8354Uti [facility] Repository (20 sources)HYDROmorphoneDrug Fgzkhuu97-43-8943GmckIcwxh [facility] Other (2 sources)PromethazineDrug AllergyUnknownNorth [facility] Other (17 sources)traMADolDrug Reuqoty44-20-7844Btclyhd, Unknown ReactionUniversity Hospitals Elyria Medical Center (14 sources)Aluminum aspirinDrug Abjvzjd34-32-7946MdcejvoexepHYNV Healthcare Work Phone: (20 sources)ButorphanolDrug Mlvgfir16-77-6099YvrdMGTY Healthcare (14 sources)EtodolacPropensity to adverse llgvqjrca03-99-7831VmnoDYMA Healthcare (20 sources)PromethazineDrug Jfkwnur54-91-9435Zpwkfpp ReactionNONY Healthcare (14 sources)Sulfamethoxazole / TrimethoprimDrug Apdylkj29-88-8881YPPV Healthcare (14 sources)TheophyllineDrug Syaowvf90-41-2152QHWF Healthcare (2 sources)Acetaminophen / oxyCODONE; Translations: [Percocet 5/325]Drug Allergy [facility] Repository (2 sources)Adhesive Tape; Translations: [Tape]Propensity to adverse reactions (disorder)[facility] Repository (2 sources)homatropine / HYDROcodone; Translations: [Hydromet]Drug AllergyCleveland Clinic Foundation Repository (20 sources)CitalopramDrug Kossnfb33-49-2882Oftptru ReactionNOBarton County Memorial Hospital (16 sources)hydrOXYzine; Translations: [hydroxyzine]Drug Vftkwrw15-14-3180 Unknown [facility] (16 sources)Memantine; Translations: [memantine]Drug Ehxfebi71-00-8316LsjoeBlanchard Valley Health System [facility] (16 sources)Metoclopramide; Translations: [metoclopramide]Drug Bilccll12-66-0027 Unknown ReactionUniversity Hospitals Elyria Medical Center (16 sources)Niacin; Translations: [niacin]Drug Vhcxljy44-19-2604Dnfvoqw Reaction, painUniversity Hospitals Elyria Medical Center (16 sources)Sulfamethoxazole; Translations: [sulfamethoxazole]Drug Allergy 75-76-6918Dgbclut Reaction, RashUniversity Hospitals Elyria Medical Center (16 sources)SUMAtriptan; Translations: [sumatriptan]Drug Kmqrdfs17-00-7958 Unknown Reaction, HypotensionUniversity Hospitals Elyria Medical Center (16 sources)Trimethoprim; Translations: [trimethoprim]Drug Egcqkzt10-86-2288 Unknown Reaction, RashUniversity Hospitals Ely[facility] (1 source)AspirinDrug Sqbicci08-53-4213WqlmddyrzUniversity Hospitals Ely[facility] Repository (1 source)ButorphanolDrug Axhvcqt34-92-5818PuvpgmgooUniversity Hospitals Elyria [facility] Repository (1 source)CiprofloxacinDrug Xlzsiys75-15-8453AwzowkfcaUniversity Hospitals Elyria [facility] Repository (1 source)CitalopramDrug Hetddge49-86-4004SjerafkpqUniversity Hospitals Ely[facility] Repository (1 source)HYDROmorphoneDrug Ptxlwyq81-63-1810QmbjemwxgUniversity Hospitals Ely[facility] Repository (1 source)MorphineDrug Igioazf13-81-6218LuvnijzswUniversity Hospitals Ely[facility] Repository (1 source)PromethazineDrug Axnphhc81-40-5806HempzpcstUniversity Hospitals [facility] Repository (1 source)traMADolDrug Picegoz05-20-9112LwprljoydUniversity Hospitals Elyria [facility] Center Repository Medications Current Medications MedicationDrug Class(es)DatesSig (Normalized)Sig (Original)acetaminophen 500 mg oral tablet (13 sources)take 1 tablet by mouth every six hours as neededacetaminophen (Tylenol) 500 MG tablet Take 500 mg by mouth every 6 (six) hours if needed Activeacetaminophen 325 mg / oxyCODONE hydrochloride 5 mg oral tablet (2 sources)Opioid AgonistoxyCODONE-Acetaminophen 5-325 MG Oral for 7 Days Active amoxicillin 500 mg oral tablet (3 sources)Penicillin-class AntibacterialStart: 03-47-3088Eequpheevgy 500 mg tablet Active MG PO April 04, 2025 12:00am Complies with drug therapy cholecalciferol 0.01 mg oral tablet (14 sources)Vitamin DStart: 73-37-3235tvqv 1 tablet by mouth twice daily at mealtimeCholecalciferol (Vitamin D3) 10 mcg (400 unit) Tablet Active 20 MCG PO Twice daily with meals 120 30 1 February 07, 2025 12:00am Complies with drug therapyclopidogrel 75 mg oral tablet (20 sources)P2Y12 Platelet InhibitorStart: 12-60-8280zvir 1 tablet by mouth two times weeklyClopidogrel (Plavix) 75 mg tablet Active 75 MG PO As Directed January 23, 2025 12:00am twice a week Complies with drug therapyStart: 10-30-2023 Plavix 75 MG tablet 1 (one) time each day at the same time 10/30/2023 Active diazePAM 5 mg oral tablet (12 sources)BenzodiazepineStart: 38-20-3322slqboETD (Valium) 5 MG tablet every 8 (eight) hours 03/07/2024 ActivediazePAM 10 MG TAKE 1 TABLET BY MOUTH 60 MINUTES prior to procedure Oral for 1 Days Activedocusate sodium 100 mg oral capsule (10 sources)take 1 capsule by mouth in the morningDocusate Sodium (DSS) 100 MG capsule Take 100 mg by mouth in the morning and 100 mg in the evening.Active gabapentin 100 mg oral capsule (20 sources)Anti-epileptic AgentStart: 67-53-7807hmoq 2 capsules by mouth three times dailyGabapentin 100 mg capsule Active 200 MG PO Three times daily April 05, 2025 1:32pm Complies with drug therapyStart: 01-23-2025 End: 04-88-0302ifzc 1 capsule by mouth once daily at bedtimeGabapentin 100 mg capsule Discontinued 100 MG PO Daily at bedtime January 23, 2025 12:00am 2024 10:27amStart: 03-27-2023 End: 49-08-7521llrp 1 capsule by mouth three times dailyGabapentin 100 mg capsule Discontinued 100 MG PO Three times daily April 04, 2025 10:27am April 05, 2025 1:32pmgentamicin 3 mg/ml ophthalmic solution (5 sources)Start: 02-01-2024 End: 45-34-8737fmwq 1 drop(s) into the eye(s) five times dailygentamicin (Garamycin) 0.3 % ophthalmic solution Indications: Age-related nuclear cataract of both eyes instill 1 DROP IN THE LEFT EYE FIVE TIMES DAILY FOR 10 DAYS 5 mL 1 02/01/2024 06/20/2024 Discontinued (Therapy completed)ibuprofen 200 mg oral tablet (15 sources)Nonsteroidal Anti-inflammatory Drugtake 1 tablet by mouth every six hours as neededibuprofen 200 MG tablet Take 200 mg by mouth every 6 (six) hours if needed ActiveComment on above:Take 200 mg by mouth every 6 hours as needed. levothyroxine sodium 0.025 mg oral tablet (20 sources)l-ThyroxineStart: 01-23-2025 End: 66-45-6386gahg 1 tablet by mouth once dailyLevothyroxine 25 mcg tablet Active 25 MCG PO Daily January 23, 2025 10:10am Complies with drug therapy liothyronine sodium 0.005 mg oral tablet (14 sources)l-TriiodothyronineStart: 86-78-7651okaksgupwpwa (Cytomel) 5 MCG tablet 04/24/2023 Activemeloxicam 15 mg oral tablet (8 sources)Nonsteroidal Anti-inflammatory DrugStart: 18-88-3411fzmn 1 tablet by mouth once dailyMeloxicam 15 mg tablet Active 15 MG PO Daily March 08, 2025 12:00am Complies with drug therapynaratriptan 1 mg oral tablet (15 sources)Serotonin-1b and Serotonin-1d Receptor AgonistStart: 01-23-2025 Naratriptan 1 mg tablet Active 0 PO .COMPLEX as needed for migraines January 23, 2025 12:00am Take1 tablet by mouth as needed at the onset of migraine. Take no more than 1 dose in 24 hours. Complies with drug therapyomeprazole 20 mg delayed release oral capsule (7 sources)Proton Pump Inhibitor End: 21-08-0141btgs 1 capsule by mouth in the morningomeprazole (PriLOSEC) [address] capsule Take 20 mg by mouth in the morning. 06/20/2024 Discontinued (Therapy completed)Comment on above:Take 20 mg by mouth once daily.pantoprazole 40 mg delayed release oral tablet (10 sources)Proton Pump InhibitorStart: 01-75-1371tckhdrxcepaz (Protonix) 40 MG EC tablet 1 (one) time each day at the same time 04/28/2024 ActiveprednisoLONE acetate 10 mg/ml ophthalmic suspension (4 sources)CorticosteroidStart: 02-05-2024 End: 29-68-0563iisw 1 drop(s) into the eye(s) four times daily at bedtime prednisoLONE acetate (Pred-Forte) 1 % ophthalmic suspension Indications: Age- related nuclear cataract of both eyes instill 1 DROP IN BOTH EYES FOUR TIMES DAILY (IN THE MORNING, at noon, IN THE EVENING, and BEFORE bedtime) FOR 14 DAYS 5 mL 1 02/05/2024 06/20/2024 Discontinued (Therapy completed)promethazine hydrochloride 25 mg oral tablet (12 sources)PhenothiazineStart: 18-66-3656lfzp 1 tablet by mouth every six hours as neededpromethazine (Phenergan) 25 MG tablet 1 tablet as needed Orally q6h for 5 days 03/07/2024 Activetake 1 tablet by mouth every six hours as needed promethazine (PHENERGAN) 25 mg tablet Take 25 mg by mouth every 6 hours as needed. 0 ActiveComment on above:Take 25 mg by mouth every 6 hours as needed. rimegepant 75 mg disintegrating oral tablet (10 sources)Start: 36-42-1117rzhg 1 tablet by mouth every two hoursRimegepant Sulfate (Nurtec) 75 MG tablet dispersible 1 tablet on the tongue and allow to dissolve Orally Repeat in 2 hours if necc, max 2/day for 10 days 03/07/2024 ActiveSUMAtriptan 100 mg oral tablet (13 sources)Serotonin-1b and Serotonin-1d Receptor Agonisttake 1 tablet by mouth onceSUMAtriptan (Imitrex) 100 MG tablet Take 100 mg by mouth 1 (one) time if needed for migraine ActiveSZNERVE1 cream (7 sources)Start: 43-20-7807pwzyo 1-2 g topically three to four times daily SZNERVE1 cream Active 1 - 2 GM TOPICAL 3 to 4 times per day 120 30 March 17, 2025 12:00am Acute right ankle pain Pain in right ankle and joints of right foot Buderer Compounded Item: Amitriptyline HCl 2%, Capsaicin 0.025%, Clonidine HCl 0.23%, Gabapentin 6%, Lidocaine HCl 5% Cream Complies with drug therapy Start: 48-93-7532pvnkv 1-2 g topically three to four times dailyStart: 89-05-7538osogk 1-2 g topically three to four times dailyStart: 48-34-4748ktcwn 1-2 g topically three to four times dailySZNERVE1 cream Active 1 - 2 GM TOPICAL 3 to 4 times per day March 17, 2025 12:00am Buderer Compounded Item: Amitriptyline HCl 2%, Capsaicin 0.025%, Clonidine HCl 0.23%, Gabapentin 6%, Lidocaine HCl 5% Cream Complies with drug therapytriamcinolone acetonide 0.001 mg/mg oral paste (2 sources)CorticosteroidStart: 29-79-0315wpljevhvpfedn (Kenalog) 0.1 % oral paste APPLY TO THE AFFECTED AREA do not rinse afterwards and avoid eating or drinking for 30 MINUTES EVERY 4 HOURS 08/10/2024 ActiveTylenol Extra Strength 500 MG (2 sources)take 1 tablet by mouth every six hours as neededTylenol Extra Strength 500 MG 1 tablet as needed Orally every 6 hrs ActivevalACYclovir 1000 mg oral tablet (2 sources)Herpesvirus Nucleoside Analog DNA Polymerase Inhibitor, Herpes Simplex Virus Nucleoside Analog DNA Polymerase Inhibitor, Herpes Zoster Virus Nucleoside Analog DNA Polymerase InhibitorStart: 62-23-3516uhaSDIliducq (Valtrex) 1 g tablet Take 1,000 mg by mouth in the morning and 1,000 mg in the eveningand 1,000 mg before bedtime. 08/04/2024 Activedivalproex sodium 125 mg delayed release oral tablet (9 sources)Mood Stabilizer, Anti-epileptic Agenttake 1 tablet by mouth in the morning, then take 1 tablet by mouth in the evening, then take 1 tablet by mouth at bedtimedivalproex (Depakote) 125 MG EC tablet Take 125 mg by mouth in the morning and 125 mg in the evening and 125 mg before bedtime. Do not crush, chew, or split.. Active Completed/Discontinued Medications MedicationDrug Class(es)DatesSig (Normalized)Sig (Original)acetaminophen 325 mg / HYDROcodone bitartrate 5 mg oral tablet (20 sources)Opioid AgonistStart: 02-14-2025 End: 16-90-4763btub 1 tablet by mouth twice daily as needed for painHydrocodone- Acetaminophen 5-325 mg tablet Discontinued 1 TAB PO Twice daily as needed for pain 10 50 February 21, 2025 March 17, 2025 9:59am Closed trimalleolar fracture of left ankleStart: 02-14-2025 End: 78-13-4104gzww 1 tablet by mouth twice daily as needed for painHydrocodone- Acetaminophen 2.5-325 mg tablet Discontinued 1 TAB PO Twice daily as needed for pain 105 0 February 14, 2025 February 14, 2025 5:05pm Closed trimalleolar fracture of left ankletake 1 tablet by mouth every eight hours as needed HYDROcodone-acetaminophen (NORCO) 5-325 mg per tablet Take 1 tablet by mouth every 8 hours as needed. 0 ActiveComment on above:Take 1 tablet by mouth every 8 hours as needed.amylase 827864 unt / lipase 68340 unt / protease 55105 unt delayed release oral capsule (2 sources)gtuqhi-lhtywnwc-xailudo (CREON) 24,000-76,000 -120,000 unit cpDR Take by mouth three times daily with meals. 0 ActiveComment on above:Take by mouth three times daily with meals.calcium carb/vit d3/minerals(CALTRATE 600+D PLUS MINERALS 600 MG (1,500 MG)-400 UNIT CHEWABLE TAB) (2 sources)Start: 80-41-7755nucocjt carb/vit d3/minerals(CALTRATE 600+D PLUS MINERALS 600 MG (1,500 MG)-400 UNIT CHEWABLE TAB) Take one(1) tablet daily. 0 09/13/2009 ActiveComment on above:Take one(1) tablet daily. CLOTRIMAZOLE/BETAMETHASONE DIP (CLOTRIMAZOLE-BETAMETHASONE TOPICAL) (2 sources)CLOTRIMAZOLE/BETAMETHASONE DIP (CLOTRIMAZOLE-BETAMETHASONE TOPICAL) Apply to affected area twice daily. 0 ActiveComment on above:Apply to affected area twice daily.estrogens, conjugated (residential) 0.625 mg/ml vaginal cream (2 sources)Estrogenconjugated estrogens (PREMARIN) vaginal cream Indications: Every other day Use vaginally once daily. Indications: Every other day 0 Active Comment on above:Use vaginally once daily. Indications: Every other day hyoscyamine sulfate 0.125 mg sublingual tablet (2 sources)take 0.125 mg under the tongue at bedtimehyoscyamine sublingual 0.125 mg Subl Dissolve 0.125 mg under the tongue before meals and at bedtime. 0 ActiveComment on above:Dissolve 0.125 mg under the tongue before meals and at bedtime.melatonin 5 mg oral capsule (14 sources)Start: 02-05-2025 End: 90-98-8140Rrttgwelr 5 mg capsule Discontinued 15 MG PO as needed for insomnia February 05, 2025 12:00am March 08, 2025 1:01pmoxyCODONE hydrochloride 5 mg oral tablet (14 sources)Opioid AgonistStart: 02-07-2025 End: 10-48-7451fiei 1 tablet by mouth every four hours as needed for pain Oxycodone 5 mg Tablet Discontinued 5 MG PO Every 4 hours as needed for Pain Scale 4 - 7 30 5 0 February 07, 2025 February 21, 2025 9:18am Closed trimalleolar fracture of left anklepredniSONE 10 mg oral tablet (2 sources)Start: 27-99-1350nukw 4 tablets by mouth once daily, then take 0.5 tablet by mouth every weekpredniSONE (DELTASONE) 10 mg tablet TAKE 4 TABLETS BY MOUTH DAILY FOR 2 WEEKS, then decrease by ONE-HALF TABLET EVERY WEEK 1 04/07/2018 ActiveComment on above:TAKE 4 TABLETS BY MOUTH DAILY FOR 2 WEEKS, then decrease by ONE-HALF TABLET EVERY WEEKrosuvastatin calcium 10 mg oral tablet (2 sources)HMG-CoA Reductase Inhibitortake 1 tablet by mouth once daily rosuvastatin (CRESTOR) 10 mg ORAL tablet Take 10 mg by mouth once daily. 0 ActiveComment on above:Take 10 mg by mouth once daily.sucralfate 1000 mg oral tablet (2 sources)Aluminum ComplexStart: 42-63-6673zxkv 1 tablet by mouth every six hours as neededsucralfate 1 gram ORAL tablet Take 1 g by mouth four times daily as needed. 0 11/13/2011 ActiveComment on above:Take 1 g by mouth four times daily as needed.tiZANidine 4 mg oral tablet (4 sources)Central alpha-2 Adrenergic AgonistStart: 76-31-2221otdh 1 tablet by mouth once daily at bedtimetiZANidine (ZANAFLEX) 4 mg tablet TAKE 1 TABLET BY MOUTH EVERY EVENING AT BEDTIME 5 04/28/2018 Activetake 1 tablet by mouth every eight hourstiZANidine HCl 4 MG 1 tablet as needed Orally every 8 hrs Active Comment on above:TAKE 1 TABLET BY MOUTH EVERY EVENING AT BEDTIMEtraMADol hydrochloride 50 mg oral tablet (2 sources)Opioid Agonisttake 1 tablet by mouth every six hours as needed traMADol (ULTRAM) 50 mg tablet Take 50 mg by mouth every 6 hours as needed. 0 ActiveComment on above:Take 50 mg by mouth every 6 hours as needed. Problems Active Problems Problem ClassificationProblemDateDocumented DateEpisodic/ChronicAcute bronchitis (2 sources)Acute bronchitis; Translations: [Acute bronchitis]EpisodicAnxiety disorders (18 sources)Anxiety; Translations: [Anxiety disorder, unspecified]07-20-2024 ChronicCataract (17 sources)Bilateral age-related nuclear cataracts; Translations: [Age-related nuclear cataract, bilateral]Onset: 105302-98-9355CpyrickVtqeiqtsda heart failure; nonhypertensive (1 source)Unspecified diastolic (congestive) heart failure; Translations: [UNSPECIFIED DIASTOLIC HEART FAILURE]Onset: 41-41-4516PzhmyqqWwkeixfl, dementia, and amnestic and other cognitive disorders (13 sources)Dementia; Translations: [Unspecified dementia without behavioral disturbance]Onset: 817361-40-9495FtgvpaeEosjjfvh of mouth; excluding dental (2 sources)Ulcer of mouth; Translations: [Other forms of stomatitis]08-15-2024 EpisodicDisorders of lipid metabolism (1 source)Pure hypercholesterolemia, unspecified; Translations: [PURE HYPERCHOLESTEROLEMIA UNSPEC]Onset: 32-82-0890TqdqcmzUdfgzupspnajit and diverticulitis (2 sources)Diverticular disease of colon; Translations: [Diverticulosis of colon]ChronicEsophageal disorders (1 source)Gastro-esophageal reflux disease without esophagitis; Translations: [GERD WITHOUT ESOPHAGITIS]Onset: 47-05-1091ZtxmqoeUyxrjolz of lower limb (20 sources)Closed trimalleolar fracture of left ankle; Translations: [Displaced trimalleolar fracture of left lower leg, initial encounter for closed fracture] Onset: 888707-95-2927BdivbbttDwsbwyuj; including migraine (15 sources)Migraine; Translations: [Migraine, unspecified, not intractable, without status migrainosus]Onset: 312129-89-3166MmevuzxWncazzdw; including migraine (2 sources)Pain in face; Translations: [Left facial pain]65-95-2780Xmntxrrp Hypertension with complications and secondary hypertension (1 source)Hypertensive heart disease with heart failure; Translations: [HTN HEART DISEASE W/HEART FAIL]Onset: 20-80-6809FnshneiBcnjekrga (1 source)Influenza due to other identified influenza virus with other respiratory manifestations; Translations: [FLU D/T OTH ID FLU VIR OTH RSP MANF] Onset: 18-29-8256MdfnelbjWjnxqudvye disorders (1 source)Hormone replacement therapy; Translations: [Hormone replacement therapy]Onset: 33-80-8748YsxepauaGtyzwo and vomiting (1 source)Nausea with vomiting, unspecified; Translations: [NAUSEA WITH VOMITING UNSPECIFIED]Onset: 58-67-5000NbkyzygqRqutysytmdmljq (20 sources)Arthritis of left foot; Translations: [Primary osteoarthritis, left ankle and foot]97-20-2196NuzoxcpIrszm aftercare (1 source)Other long-term (current) drug therapy; Translations: [OTH HALF-WAY CURRENT DRUG THERAPY]Onset: 85-80-8224QiuawqvnTjpws aftercare (20 sources)Removal of sutures done; Translations: [Encounter for removal of sutures]16-20-5539KhxyenhhVhymm bone disease and musculoskeletal deformities (10 sources)Avascular necrosis of bone of hip; Translations: [Idiopathic aseptic necrosis of left femur]01-85-4156RqpbgieRnxnn connective tissue disease (2 sources)Fibromyalgia; Translations: [Fibromyalgia]Onset: 91-13-4998Gphjqzzk Other connective tissue disease (13 sources)Foot pain; Translations: [Pain in left foot]50-86-3801ZmnpsymmLcvlg connective tissue disease (11 sources)Pain of left calf; Translations: [Pain in left lower leg]02-23-2025 EpisodicOther connective tissue disease (1 source)Pain in left leg; Translations: [Pain in left leg]Onset: 03-29-2025 EpisodicOther connective tissue disease (1 source)Pain in left lower leg; Translations: [Pain in left lower leg]Onset: 18-24-7791FovnppvrMxezq connective tissue disease (1 source)Pain in left foot; Translations: [Pain in left foot]Onset: 02-21-2025 EpisodicOther gastrointestinal disorders (2 sources)Irritable bowel syndrome without diarrhea; Translations: [IRRITABLE BOWEL SYND W/O DIARRHEA]Onset: 97-21-3369BhgalcgWcric gastrointestinal disorders (14 sources)Irritable bowel syndrome; Translations: [Irritable bowel syndrome without diarrhea]57-07-1482CnuvxfcMgqdb gastrointestinal disorders (2 sources)Diarrhea; Translations: [Diarrhea]EpisodicOther inflammatory condition of skin (1 source)Psoriasis, unspecified; Translations: [PSORIASIS UNSPECIFIED]Onset: 43-30-4897XwymsvvFfolp nervous system disorders (13 sources)Bilateral carpal tunnel syndrome; Translations: [Carpal tunnel syndrome, bilateral upper limbs]Onset: 909371-47-7231JrneeyzBpcah nervous system disorders (20 sources)Complex regional pain syndrome type I of left lower limb; Translations: [Complex regional pain syndrome I of left lower limb]03-17-2025 ChronicOther nervous system disorders (15 sources)Chronic pain; Translations: [Other chronic pain]24-38-8874Zvywmzo Other nervous system disorders (1 source)Other chronic pain; Translations: [Other chronic pain]Onset: 34-44-7318HqauuziUerkl nervous system disorders (1 source)Complex regional pain syndrome I of left lower limb; Translations: [Complex regional pain syndrome I of left lower limb]Onset: 29-94-9430Ppqdmvr Other nervous system disorders (20 sources)H/O: Disorder; Translations: [Personal history of other diseases of the nervous system and sense organs]46-25-5000QfmfrkbbOkuxr nervous system disorders (1 source)Personal history of other diseases of the nervous system and sense organs; Translations: [Personal history of other diseases of the nervous system and sense organs]Onset: 28-03-1771YoizcpisZquxp non-traumatic joint disorders (16 sources)Ankle pain; Translations: [Pain in left ankle and joints of left foot]21-55-8847IoglfttbRxtcg non-traumatic joint disorders (1 source)Pain in left knee; Translations: [Left knee pain]33-58-2026Nhgxsbiq Other non-traumatic joint disorders (1 source)Pain in left hip; Translations: [Pain in left hip]Onset: 03-24-2025 EpisodicOther nutritional; endocrine; and metabolic disorders (1 source)Disorder of urea cycle metabolism, unspecified; Translations: [DISORDER UREA CYCLE METABOLISM UNS]Onset: 80-96-3699EsmcrqwNkjyzbbvaw disorders (not diabetes) (13 sources)Idiopathic chronic pancreatitis; Translations: [Other chronic pancreatitis]Onset: 344054-94-5454DldepwlXuieipkv codes; unclassified (1 source)Acquired absence of other specified parts of digestive tract; Translations: [ACQ ABSENCE OTH PART DIGESTV TRACT]Onset: 20-37-7843Veesqcpz Residual codes; unclassified (1 source)Acquired absence of both cervix and uterus; Translations: [ACQUIRED ABSENCE BOTH CERVIX AND UTERUS]Onset: 66-70-8705ZzverwstVrtlsmqs codes; unclassified (20 sources)Memory impairment; Translations: [Other amnesia]64-51-3953Jbewrvex Residual codes; unclassified (20 sources)FH: Alzheimer's disease; Translations: [Family history of epilepsy and other diseases of the nervous system]86-86-1398VlwaspvkZtxycouz codes; unclassified (20 sources)Postprocedural state finding; Translations: [Other specified postprocedural states]95-60-5815LxushedrEobhohcr codes; unclassified (20 sources)History of operation on musculoskeletal system; Translations: [Other specified postprocedural states]03-41-0534MovdzwfbCvhqkyo on above:open reduction internal fixation left trimalleolar ankle fracture DOS 02/06/25. Residual codes; unclassified (1 source)Other specified postprocedural states; Translations: [Other specified postprocedural states]Onset: 74-69-5760HwmyaofsWagzyniscwa; intervertebral disc disorders; other back problems (12 sources)Other spondylosis with radiculopathy, cervical region; Translations: [Cervical spondylosis without myelopathy]Onset: 673629-96-4850Cvqvxlg Unclassified (2 sources)COUGH, UNSPECIFIED; Translations: [COUGH, UNSPECIFIED]Onset: 60-19-3341Avicyehapory (1 source)CONTACT W/AND (SUSP) EXPOS COVID-19; Translations: [CONTACT W/AND (SUSP) EXPOS COVID-19]Onset: 61-80-3200Xazksudzwdvj (20 sources)Post surgery appointment. He will remove your sutures at this appointment.Unclassified (1 source)M25.572 - Pain in left ankle and joints of left footUnclassified (9 sources)G90.522 - Complex regional pain syndrome I of left lower limb Unclassified (4 sources)Call Dr. Lucas office to schedule a follow up appointment if you do not already have one scheduledViral infection (1 source)COVID-19; Translations: [COVID-19]Onset: 09-02-2021 Past or Other Problems Problem ClassificationProblemDateDocumented DateEpisodic/ChronicAbdominal pain (20 sources)Abdominal pain; Translations: [Unspecified abdominal pain]Onset: 301163-09-8868ShsmswymEsnwbpn dysrhythmias (1 source)Bradycardia, unspecified; Translations: [BRADYCARDIA UNSPECIFIED] Onset: 50-46-8960NaqzbtzlGnhxtiyjly associated with dizziness or vertigo (4 sources)Dizziness and giddiness; Translations: [DIZZINESS AND GIDDINESS] Onset: 89-19-5391DnjeqrdrJwjctpposr and other anemia (1 source)Anemia, unspecified; Translations: [ANEMIA UNSPECIFIED]Onset: 68-74-8466MvcqrbyuHsvsx and electrolyte disorders (4 sources)Dehydration; Translations: [DEHYDRATION]Onset: 45-54-2122Nepuzocr Malaise and fatigue (4 sources)Weakness; Translations: [WEAKNESS]Onset: 23-64-8715Cwhkntli Nonspecific chest pain (4 sources)Chest pain, unspecified; Translations: [CHEST PAIN UNSPECIFIED]Onset: 58-29-7000QkakmfkdAmwhr circulatory disease (1 source)Hypotension, unspecified; Translations: [HYPOTENSION UNSPECIFIED] Onset: 53-35-9372LensravlYzrte connective tissue disease (20 sources)Fibromyalgia; Translations: [Fibromyalgia]Onset: 09-20-2009 05-48-1200TfurqlzyZebhh gastrointestinal disorders (1 source)Diarrhea, unspecified; Translations: [DIARRHEA UNSPECIFIED]Onset: 44-86-3953VmjbmcohFgegm lower respiratory disease (1 source)Dyspnea, unspecified; Translations: [DYSPNEA UNSPECIFIED]Onset: 29-76-9501ZuoewnmlKldlb lower respiratory disease (1 source)Shortness of breath; Translations: [SHORTNESS OF BREATH]Onset: 87-70-8683ZmbscsguEicru screening for suspected conditions (not mental disorders or infectious disease) (5 sources)Encounter for screening mammogram for malignant neoplasm of breast; Translations: [Abnormal result of other cardiovascular function study]Onset: 82-23-6474UzfokkzeJiaibfha codes; unclassified (1 source)Family history of malignant neoplasm of breast; Translations: [FAMILY HX MALIG NEOPLASM OF BREAST]Onset: 86-42-3729DmtqmktmGdoxkmvaydn; intervertebral disc disorders; other back problems (18 sources)Neck pain; Translations: [Cervicalgia]Onset: 31-56-3158Cafabxbo Unclassified (1 source)COUGH, UNSPECIFIED; Translations: [COUGH, UNSPECIFIED]Onset: 06-17-2022 Results Test NameValueInterpretationReference RangeFacilityX-ray reportOrdered By: Martinez Flores on 02-33-3240Nbhnq reportFIRKETTERING HEALTH [facility] [address] [place] [address] XRay Report Signed Patient: Skip Hong MR#: [id number] : 1955 Acct:[id number] Age/Sex: 70 / F ADM Date: 5 Loc: [facility] Room: Type: REG CLI Attending Dr: Ravin Campoverde MD Copies to: Ravin Campoverde MD~ Ordering Provider: Ravin Campoverde MD Date of Service: 04/04/25 XR/XR ankle LT min 3V*: Z98.890 - Other specified postprocedural states 3 views left ankle compared to prior examination 03/07/2025 HISTORY: Status post ORIF left trimalleolar fracture Stable alignment and hardware. Interval healing. XR/XR ankle LT min 3V* IMPRESSION: Stable hardware. Interval healing. Impression dictated by: Martinez Flores M.D. 04/04/2025 4:03 PM Dictation Location: [place] [address] Transcribed By: [facility] 04/04/25 1603 Dictated By: Martinez Flores DO 04/04/25 1603 Signed By: 04/04/25 1603 [facility] CenterXR [facility] min 3V*on 81-53-9250GD ankle LT min 3V*[facility] [address] [place] [address] XRay Report Signed Patient: Skip Hong MR#: [id number] : 1955 Acct:[id number] Age/Sex: 70 / F ADM Date: 04/04/25 Loc: [facility] Room: Type: REG CLI Attending Dr: Ravin Campoverde MD Copies to: Ravin Campoverde MD Ordering Provider: Ravin Campoverde MD Date of Service: 04/04/25 XR/XR ankle LT min 3V*: Z98.890 - Other specified postprocedural states 3 views left ankle compared to prior examination 03/07/2025 HISTORY: Status post ORIF left trimalleolar fracture Stable alignment and hardware. Interval healing. XR/XR ankle LT min 3V* IMPRESSION: Stable hardware. Interval healing. Impression dictated by: Martinez Flores M.D. 04/04/2025 4:03 PM Dictation Location: [facility]-23 Transcribed By: [facility] 04/04/25 1603 Dictated By: Martinez Flores DO 04/04/25 1603 Signed By: 04/04/25 1603[facility] Physician GroupX-ray reportOrdered By: Alex Gleason on 60-48-4189Hfbwy reportMER[facility] [address] [place] [address] XRay Report Signed Patient: Skip Hong MR#: [id number] : 1955 Acct:[id number] Age/Sex: 70 / F ADM Date: 5 Loc: [facility] Room: Type: [facility] Attending Dr: Ryan Henderson II, MD Copies to: Ryan Henderson MD~ Ordering Provider: Ryan Henderson MD Date of Service: 03/24/25 XR/XR hip LT min 2V(w/wo pelvis)*: M25.552 - Pain in left hip LEFT HIP - 2 views: CLINICAL HISTORY: AVN left femoral head COMPARISON: Hip series 02/24/2025 FINDINGS: Bones are grossly demineralized. 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 Mild degenerative changes involving the hips. Additional degenerative changes seen involving the visualized lower lumbar spine and SI joints. No acute bony proce ss. XR/XR hip LT min 2V(w/wo pelvis)* IMPRESSION: AVASCULAR NECROSIS INVOLVING THE FEMORAL HEADS SIMILAR TO THE PRIOR STUDY. NO ACUTE BONY PROCESS.. Impression dictated by: Alex Gleason Jr., D.O. 03/24/2025 10:01 AM Dictation Location: [facility]PC-22 Transcribed By: LENA 03/24/251000 Dictated By: Alex Gleason Jr, DO 03/24/25956 Signed By: 03/24/[address] [place], [place] [address]XR hip LT min 2V(w/wo pelvis)*on 13-34-7851EP hip LT min 2V(w/wo pelvis)*[facility] [address] [place] [address] XRay Report Signed Patient: Skip Hong MR#: [id number] : 1955 Acct:[id number] Age/Sex: 70 / F ADM Date: 03/24/25 Loc: [facility] Room: Type: [facility] Attending Dr: Ryan Henderson II, MD Copies to: Ryan Henderson MD Ordering Provider: Ryan Henderson MD Date of Service: 03/24/25 XR/XR hip LT min 2V(w/wo pelvis)*: M25.552 - Pain in left hip LEFT HIP - 2 views: CLINICAL HISTORY: AVN left femoral head COMPARISON: Hip series 02/24/2025 FINDINGS: Bones are grossly demineralized. 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 Mild degenerative changes involving the hips. Additional degenerative changes seen involving the visualized lower lumbar spine and SI joints. No acute bony process. XR/XR hip LT min 2V(w/wo pelvis)* IMPRESSION: AVASCULAR NECROSIS INVOLVING THE FEMORAL HEADS SIMILAR TO THE PRIOR STUDY. NO ACUTE BONY PROCESS.. Impression dictated by: Alex Gleason Jr., D.O. 03/24/2025 10:01 AM Dictation Location: [facility]PC-22 Transcribed By: LENA 03/24/251000 Dictated By: Alex Gleason Jr, DO 03/24/25956 Signed By: 03/24/[address] [place] [address] Physician GroupX-ray reportOrdered By: Alex Gleason on 17-61-7566Jblcd reportMER[facility] [address] [place] [address] XRay Report Signed Patient: Skip Hong MR#: [id number] : 1955 Acct:[id number] Age/Sex: 70 / F ADM Date: 5 Loc: [facility] Room: Type: REG CLI Attending Dr: Ravin [...] FRACTURES. Impression dictated by: Alex Gleason Jr., D.O. 03/07/2025 3:57 PM Dictation Location: [place] [address] Transcribed By: [facility] 03/07/25 155 Dictated By: Alex Gleason Jr, DO 03/07/25 1556 Signed By: 03/07/25 1557 [facility] CenterXR ankle LT min 3V*on 21-93-8877VQ ankle LT min 3V*[facility] [place] [address] XRay Report Signed Patient: Skip Hong MR#: [id number] : 1955 Acct:[id number] Age/Sex: 70 / F ADM Date: 03/07/25 Loc: [facility] Room: Type: REG CLI Attending Dr: Ravin [...] FRACTURES. Impression dictated by: Alex Gleason Jr., DDaily 03/07/2025 3:57 PM Dictation Location: [place] [address] Transcribed By: [facility] 03/07/25 1557 Dictated By: Alex Gleason Jr, DO 03/07/25 1556 Signed By: 03/07/25 1557[facility] Physician GroupUS venous duplex LE [facility] 61-30-6700TU venous duplex LE [facility] [place] [address] Ultrasound Report Signed Patient: Skip Hong MR#: [id number] : 1955 Acct:[id number] Age/Sex: 70 / F ADM Date: 02/23/25 Loc: Room: Type: [facility] Attending Dr: Ravin Campoverde MD Ordering [...] Melgar MD,FACS,FSVS 02/24/2025 7:47 AM Dictation Location: [place] [address] Tech: Citlaly Olmedo Transcribed By: LENA 02/24/25 0763 Dictated By: Shimon Melgar MD 02/24/25 0746 Signed By: 02/24/25 0747[facility] Physician GroupX-ray reportOrdered By: Alex Gleason on 44-88-2690Cvbqt reportMER[facility] [address] [place] [address] XRay Report Signed Patient: Skip Hong MR#: [id number] : 1955 Acct:[id number] Age/Sex: 70 / F ADM Date: 5 Loc: [facility] Room: Type: [facility] CLI Attending Dr: Ravin Campoverde MD Copies to: Ravin Campoverde MD~ Ordering Provider: Ravin Campoverde MD Date of Service: 02/21/25 XR/XR ankle LT min 3V*: Z98.890 - Other specified postprocedural states ([id number]) XR/XR foot LT min 3V*: M79.672 - [...] Jr., D.OKim 02/21/2025 11:18 AM Dictation Location: [place] [address] Transcribed By: [facility] 02/21/25 1118 Dictated By: Alex Gleason Jr, DO 02/21/25 1116 Signed By: 02/21/25 1118 [facility] CenterXR foot LT min 3V*on 99-06-4770NL foot LT min 3V*[facility] [address] [place] [address] XRay Report Signed Patient: Skip Hong MR#: [id number] : 1955 Acct:[id number] Age/Sex: 70 / F ADM Date: 02/21/25 Loc: [facility] Room: Type: REG CLI Attending Dr: Ravin Campoverde MD Copies to: Ravin Campoverde MD Ordering Provider: Ravin Campoverde MD Date of Service: 02/21/25 XR/XR ankle LT min 3V*: Z98.890 - Other specified postprocedural states ([id number]) XR/XR foot LT min 3V*: M79.672 - [...] Jr., D.OKim 02/21/2025 11:18 AM Dictation Location: [place] [address] Transcribed By: [facility] 02/21/25 1118 Dictated By: Alex Gleason Jr, DO 02/21/25 1116 Signed By: 02/21/25 1118[facility] Physician GroupXR ankle LT 2Von 34-79-1791JC ankle LT 2VM[address] [facility] [place] [address] [place] [address] XRay Report Signed Patient: Skip Hong MR#: [id number] : 1955 Acct:[id number] Age/Sex: 70 / F ADM Date: 02/04/25 Loc: Room: [address] [place] [address] Type: DIS IN Attending Dr: Heath Saavedra MD Copies to: MD Ravin Mejia MD Ordering Provider: Ravni Campoverde MD Date of Service: 02/06/25 XR/XR ankle LT 2V: LEFT ANKLE ORIF Intraoperative study. Reason for exam: ORIF left ankle Findings: 10 images were obtained intraoperatively. Hardware was placed Cumulative Air Kerma in mGy: 1.90 mGy XR/XR ankle LT 2V Impression: Intraoperative study. Impression dictated by: Alex Gleason Jr., Carlos 02/09/2025 1:19 PM Dictation Location: [facility]PC-22 Transcribed By: [facility] 02/09/25 131 Dictated By: Alex Gleason Jr, DO 02/09/25 1319 Signed By: 02/09/25 1319NoFormerly [facility] Physician GroupBasic Metabolic Panelon 84-64-1932Pofck gap [Moles/Vol]12.6 mmol/LNormal6.0-15.0The [facility] Physician GroupComment on above:Performed By: #### SCAN CBC, BMP ####[facility] [place] [address] USACalcium [Mass/Vol]9.1 mg/dL Normal8.6-10.3The [facility] Physician GroupComment on above:Performed By: #### SCAN CBC, BMP ####[facility] [place] [address] USAChloride [Moles/Vol]102 mmol/XDurxgj31-875Rbc [facility] Physician [facility] Comment on above:Performed By: #### SCAN CBC, BMP ####[facility] [address] [place] [address] USACO2 [Moles/Vol]24.9 mmol/LNormal 21.0-31.0The [facility] Physician GroupComment on above:Performed By: #### SCAN CBC, BMP ####[facility] [address] [place] [address] USACreatinine [Mass/Vol]0.84 mg/dLNormal0.60-1.20The [facility] Comment on above:Performed By: #### SCAN CBC, BMP ####[facility] [place] [address] USACreatinine Clr Calc Rygtrwfm79.88 NormalThe [facility] Physician GroupComment on above:Result Comment: PERFORMED BY: [facility] [address] [place] [id number] PATHOLOGIST [employer]OUNT [employer] SUPERVISOR MELVIN RICHARDS M.D.Performed By: #### SCAN CBC, BMP ####[place] [address] [place] [address] USAGFR/1.73 sq M.predicted MDRD (S/P/Bld) [Vol rate/Area]mL/min/{1.73_m2}NormalThe [facility] Comment on above:Performed By: #### SCAN CBC, BMP ####[facility] [place] [address] USAGlucose [Mass/Vol]111 mg/qSFnwy43-311 The [facility] Physician GroupComment on above:Result Comment: Random Glucose Reference Range is dependent on time and content of last meal. Glucose of more than 200 mg/dL in a nonstressed, ambulatory subject supports the diagnosis of Diabetes Mellitus. ADA recommended reference rangePerformed By: #### SCAN CBC, BMP ####[facility] [place] [address] USAPotassium [Moles/Vol] 4.5 mmol/LNormal3.5-5.1The [facility] Physician GroupComment on above:Result Comment: Hemolysis is present at a level that could interfere with the result. Contact lab if redraw is requiredPerformed By: #### SCAN CBC, BMP ####[facility] [place] [address] USASodium [Moles/Vol]135 mmol/FZum452-960Dgt [facility] Physician GroupComment on above:Performed By: #### SCAN CBC, BMP ####[facility] [place] [address] USAUrea nitrogen [Mass/Vol]11 mg/dLNormal7-25The [facility] Physician GroupComment on above:Performed By: #### SCAN CBC, BMP ####[address] [address] USAScan and CBCon 02-07-2025 Anisocytosis Ql (Bld)SlightNormalThe [facility] Physician GroupComment on above: Performed By: #### SCAN CBC, BMP ####[address] [address] USABasophils (Bld) [#/Vol]0.1 10*3/uLNormal0.0-0.2The [facility] Physician GroupComment on above:Performed By: #### SCAN CBC, BMP ####[address] [address] [place] Basophils/100 WBC (Bld)0.4 %Normal.The [facility] Physician GroupComment on above:Performed By: #### SCAN CBC, BMP ####[place] [address] USAEosinophils (Bld) [#/Vol]0.0 10*3/uLNormal 0.0-0.45The [facility] Physician GroupComment on above:Performed By: #### SCAN CBC, BMP ####[place] [address] USAEosinophils/100 WBC (Bld)0.0 %Normal.The [facility] Physician GroupComment on above:Performed By: #### SCAN CBC, BMP ####[place] [address] USAErythrocyte distribution width (RBC) [Ratio] 13.7 %Istmbx39.9-15.3The [facility] Physician GroupComment on above:Performed By: #### SCAN CBC, BMP ####[place] [address] USAHematocrit (Bld) [Volume fraction]36.3 %Gkeciq62.0-46.4The [facility] Physician GroupComment on above:Performed By: #### SCAN CBC, BMP ####[place] [address] [place] Hemoglobin (Bld) [Mass/Vol]12.4 g/eRNkfpcr42.8-15.4The [facility] Comment on above:Performed By: #### SCAN CBC, BMP ####[place] [address] USALymphocytes (Bld) [#/Vol]1.5 10*3/uL Normal1.00-4.8The [facility] Physician GroupComment on above:Performed By: #### SCAN CBC, BMP ####[place] [address] USALymphocytes/100 WBC (Bld)9.6 %Normal.The [facility] Comment on above:Performed By: #### SCAN CBC, BMP ####[place] [address] [facility] HOSPITALMCH (RBC) [Entitic mass]30.3 pgNormal 24.7-34.3The [facility] Physician GroupComment on above:Performed By: #### SCAN CBC, BMP ####[place] [address] [facility]V (RBC) [Entitic vol]88.8 iQHyyqiu45-584Fdj [facility] Comment on above:Performed By: #### SCAN CBC, BMP ####[place] [address] USAMean Corpuscular HGB Conc34.1 g/dL Gawxnc27.0-35.0The [facility] Physician GroupComment on above:Performed By: #### SCAN CBC, BMP ####[address] [address] USAMicrocytosisSlightNormalThe [facility] Physician GroupComment on above: Performed By: #### SCAN CBC, BMP ####[place] [address] USAMonocytes (Bld) [#/Vol]1.9 10*3/uLHigh0.0-0.8The [facility] Physician GroupComment on above:Performed By: #### SCAN CBC, BMP ####[place] [address] [place] Monocytes/100 WBC (Bld)12.6 %Normal.The [facility] Physician GroupComment on above:Performed By: #### SCAN CBC, BMP ####[address] [address] USANeutrophils (Bld) [#/Vol]11.7 10*3/uLHigh 1.8-7.7The [facility] Physician GroupComment on above:Performed By: #### SCAN CBC, BMP ####[address] [address] USANeutrophils/100 WBC (Bld)77.4 %Normal.The [facility] Physician GroupComment on above:Performed By: #### SCAN CBC, BMP ####[place] [address] USANRBC%0.1 /100{WBC}Normal0-0.5The [facility] Physician GroupComment on above:Performed By: #### SCAN CBC, BMP ####[place] [address] USAPlatelet Estimate NormalNormalNormAdventHealth East Orlando Physician [facility] HospitalComment on above:Performed By: #### SCAN CBC, BMP ####[address] [address] USAPlatelet mean volume (Bld) [Entitic vol]7.7 fLNormal6.3-10.7The [facility] Physician GroupComment on above:Performed By: #### SCAN CBC, BMP ####[address] [address] [place] Platelet MorphologyNormalNormalNormAdventHealth [facility] Physician GroupComment on above:Result Comment: PERFORMED BY: [facility] [address] [facility]ITALRubinKYLE [address] [id number] PATHOLOGIST ACCOUNT GROUP SUPERVISOR MELVIN RICHARDS M.D.Performed By: #### SCAN CBC, BMP ####[place] [address] USAPlatelets (Bld) [#/Vol]334 10*3/sGUucofr815-730Cxc [facility] Physician GroupComment on above:Performed By: #### SCAN CBC, BMP ####[facility] [place] [address] USARBC (Bld) [#/Vol]4.09 10*6/uLNormal3.60-5.00The [facility] Physician GroupComment on above:Performed By: #### SCAN CBC, BMP ####[place] [address] [place] [address] USAWBC (Bld) [#/Vol]15.1 10*3/uL High3.8-11.6The [facility] Physician GroupComment on above:Performed By: #### SCAN CBC, BMP ####[facility] [place] [address] USAWhite Blood Count15.1 [CFU]/mLHigh3.8-11.6The [facility] Comment on above:Performed By: #### SCAN CBC, BMP ####[place] [address] USACT ankle LT wo conon 37-62-8892MP ankle LT wo [facility] Main [place] [address] [place] [address] CT Scan Report Signed Patient: Skip Hong MR#: [id number] : 1955 Acct:[id number] Age/Sex: 70 / F ADM Date: 02/04/25 Loc: Room: [address] [place] [address] Type: ADM IN Attending Dr: Dax Matt [...] Shaffer M.D. 02/05/2025 4:39 PM Dictation Location: [place] [address] Transcribed By: [facility] 02/05/25 1639 Dictated By: Oral Shaffer II, MD 02/05/251635 Signed By: 02/05/25 1639[facility] Physician GroupECG 12 lead ECGon 18-54-4614RYT [address] [facility] Main [place] [address] [place] [address] Electrocardiograph Report Signed Patient: Skip Hong MR#: [id number] : 1955 Acct:[id number] Age/Sex: 70 / F ADM Date: 02/04/25 Loc: Room: [address] [place] [address] Type: ADM IN Attending Dr: Dax Matt [...] No previous ECGs available Confirmed by CINDY TROY MD ([id number]) on 02/05/2025 9:49:35 AM Referred By: Electronically Signed By: CINDY TROY MD Transcribed By: NADINE Signed By Cindy Troy MD 0 02/05/25 0949NoFormerly [facility] Physician GroupBasic Metabolic Panelon 05-12-7697Kqmjs gap [Moles/Vol]10.6 mmol/LNormal6.0-15.0The [facility] Physician GroupComment on above:Performed By: #### [id number], PTT, MG, BMP, CBC, PT ####[address] [address] USACalcium [Mass/Vol]8.9 mg/dLNormal8.6-10.3The [facility] Physician GroupComment on above: Performed By: #### [id number], PTT, MG, BMP, CBC, PT ####[address] [address] USAChloride [Moles/Vol]112 mmol/L Hwih13-391Nws [facility] Physician GroupComment on above:Performed By: #### [id number], PTT, MG, BMP, CBC, PT ####[address] [address] USACO2 [Moles/Vol]23.0 mmol/MBwihtb08.0-31.0The [facility] Physician GroupComment on above:Performed By: #### [id number], PTT, MG, BMP, CBC, PT ####[address] [address] USACreatinine [Mass/Vol]0.96 mg/dLNormal0.60-1.20The [facility] Physician GroupComment on above:Performed By: #### [id number], PTT, MG, BMP, CBC, PT ####[address] [address] [place] Creatinine Clr Calc Puwfzbtw14.22NormAdventHealth East Orlando Physician GroupComment on above:Performed By: #### [id number], PTT, MG, BMP, CBC, PT ####[address] [address] USAGFR/1.73 sq M.predicted MDRD (S/P/Bld) [Vol rate/Area]mL/min/{1.73_m2}NormalThe [facility] Comment on above:Performed By: #### [id number], PTT, MG, BMP, CBC, PT ####[place] [address] [place] [address] USAGlucose [Mass/Vol]108 mg/dJUjby97-833Hsc [facility] Physician GroupComment on above: Result Comment: Random Glucose Reference Range is dependent on time and content of last meal. Glucose of more than 200 mg/dL in a nonstressed, ambulatory subject supports the diagnosis of Diabetes Mellitus. ADA recommended reference rangePerformed By: #### [id number], PTT, MG, BMP, CBC, PT ####[place] [address] [place] [address] [place] Potassium [Moles/Vol]3.6 mmol/LNormal3.5-5.1The [facility] Physician GroupComment on above:Performed By: #### [id number], PTT, MG, BMP, CBC, PT ####[address] [address] USASodium [Moles/Vol]142 mmol/NEkherk323-684Usu [facility] Physician GroupComment on above:Performed By: #### KYRX60NP, PTT, MG, BMP, CBC, PT ####[address] [address] USAUrea nitrogen [Mass/Vol]12 mg/dLNormal7-25The [facility] Physician GroupComment on above:Performed By: #### [id number], PTT, MG, BMP, CBC, PT ####[place] [id number] USAComplete Blood Count Auto Diffon 20-87-2656Fggfysono (Bld) [#/Vol]0.1 10*3/uLNormal0.0-0.2The [facility] Physician GroupComment on above:Result Comment: PERFORMED BY: [facility] [address] [facility]OSPITALRubinKYLE VILLE [id number] PATHOLOGIST ACCOUNT GROUP SUPERVISOR MELVIN RICHARDS M.D.Performed By: #### [id number], PTT, MG, BMP, CBC, PT #### [place] [address] USABasophils/100 WBC (Bld)0.9 %Normal.The [facility] Physician GroupComment on above:Performed By: #### YBNM63PG, PTT, MG, BMP, CBC, PT #### [place] [address] USAEosinophils (Bld) [#/Vol]0.0 10*3/uLNormal0.0-0.45The [facility] Physician GroupComment on above:Performed By: #### [id number], PTT, MG, BMP, CBC, PT #### [place] [address] USAEosinophils/100 WBC (Bld)0.5 %Normal.The [facility] Physician GroupComment on above:Performed By: #### KCGN17CO, PTT, MG, BMP, CBC, PT #### [place] [address] USAErythrocyte distribution width (RBC) [Ratio]13.8 %Normal 11.9-15.3The [facility] Physician GroupComment on above:Performed By: #### TCFA65YI, PTT, MG, BMP, CBC, PT #### [place] [address] USAHematocrit (Bld) [Volume fraction]38.8 %Wnpjfy07.0-46.4The [facility] Physician GroupComment on above:Performed By: #### [id number], PTT, MG, BMP, CBC, PT #### [place] [address] USAHemoglobin (Bld) [Mass/Vol]13.2 g/fCKksuru20.8-15.4The [facility] Physician GroupComment on above:Performed By: #### XNPU01AG, PTT, MG, BMP, CBC, PT #### [place] [address] USALymphocytes (Bld) [#/Vol]2.5 10*3/uLNormal1.00-4.8The [facility] Physician GroupComment on above:Performed By: #### LOXL53SE, PTT, MG, BMP, CBC, PT #### [place] [address] USALymphocytes/100 WBC (Bld)23.7 %Normal.The [facility] Physician GroupComment on above:Performed By: #### [id number], PTT, MG, BMP, CBC, PT #### [address] (RBC) [Entitic mass]30.7 qiFfypej69.7-34.3The [facility] Physician GroupComment on above:Performed By: #### ZCLD46VJ, PTT, MG, BMP, CBC, PT #### [address] (RBC) [Entitic vol]90.0 wOAicvjq75-709Ddk [facility] Physician GroupComment on above:Performed By: #### RMKR28CV, PTT, MG, BMP, CBC, PT #### [place] [address] USAMean Corpuscular HGB Conc34.1 g/zPIiyzxp31.0-35.0The [facility] Physician GroupComment on above:Performed By: #### [id number], PTT, MG, BMP, CBC, PT #### [place] [address] USAMonocytes (Bld) [#/Vol]1.3 10*3/uLHigh0.0-0.8The [facility] Physician GroupComment on above:Performed By: #### ARLU46DH, PTT, MG, BMP, CBC, PT #### [place] [address] USAMonocytes/100 WBC (Bld)12.2 %Normal.The [facility] Physician GroupComment on above:Performed By: #### TVTE76LR, PTT, MG, BMP, CBC, PT #### [facility] [address] [place] [address] USANeutrophils (Bld) [#/Vol]6.5 10*3/uLNormal1.8-7.7The [facility] Physician GroupComment on above:Performed By: #### XRKG23CT, PTT, MG, BMP, CBC, PT #### [facility] [address] [place] [address] USANeutrophils/100 WBC (Bld)62.7 %Normal.The [facility] Physician GroupComment on above:Performed By: #### XQKK10DE, PTT, MG, BMP, CBC, PT #### [facility] [address] [place] [address] USANRBC%0.1 /100{WBC}Normal0-0.5The [facility] Comment on above:Performed By: #### [id number], PTT, MG, BMP, CBC, PT #### [facility] [address] [place] [address] USAPlatelet mean volume (Bld) [Entitic vol]7.4 fLNormal 6.3-10.7The [facility] Physician GroupComment on above:Performed By: #### ECOA38QB, PTT, MG, BMP, CBC, PT #### [facility] [address] [place] [address] USAPlatelets (Bld) [#/Vol]318 10*3/rEHkwswv348-467Scr [facility] Physician GroupComment on above:Performed By: #### [id number], PTT, MG, BMP, CBC, PT #### [facility] [address] [place] [address] USARBC (Bld) [#/Vol]4.31 10*6/uLNormal3.60-5.00The [facility] Physician GroupComment on above:Performed By: #### MHGE15VO, PTT, MG, BMP, CBC, PT #### [place] [address] USAWBC (Bld) [#/Vol]10.4 10*3/uLNormal3.8-11.6The [facility] Physician GroupComment on above:Performed By: #### RJMW18FT, PTT, MG, BMP, CBC, PT #### [facility] [address] [place] [address] USAWhite Blood Count10.4 [CFU]/mLNormal3.8-11.6The [facility] Physician GroupComment on above:Performed By: #### SWAD92HD, PTT, MG, BMP, CBC, PT #### [facility] [address] [place] [address] USAMagnesiumon 95-37-0799Uflxwynql [Mass/Vol]1.9 mg/dLNormal 1.9-2.7The [facility] Physician GroupComment on above:Performed By: #### [id number], PTT, MG, BMP, CBC, PT ####[facility] [address] [place] [address] USAPartial Thromboplastin Timeon 56-53-9729cVOO Coag (Bld) [Time]28.2 eZyhezz35.1-36.5The [facility] Physician GroupComment on above: Result Comment: A hematocrit value greater than 55% may lead to inaccurate results in coagulation testing. Patients having hematocrit values >55% require a special collection tube for coagulation studies. Please contact the laboratory at [phone] for redraw instructions. PERFORMED BY: [place] [address] PATHOLOGIST ACCOUNT GROUP SUPERVISOR MELVIN RICHARDS M.D.Performed By: #### [id number], PTT, MG, BMP, CBC, PT #### [place] [id number] USAProthrombin Time INRon 45-34-5132RVA Coag (PPP) [Relative time]0.9 {INR}NormalThe [facility] Physician [facility] HospitalComment on above:Result Comment: INR Therapeutic Range A) Pre- and [...] patients with mechanical heart valves: 3 - 4.5Performed By: #### GZLN45FS, PTT, MG, BMP, CBC, PT #### [facility] [address] [place] [address] USAPT Coag (PPP) [Time]10.7 sNormal9.0-12.9The [facility] Physician GroupComment on above:Result Comment: A hematocrit value greater than 55% may lead to inaccurate results in coagulation testing. Patients having hematocrit values >55% require a special collection tube for coagulation studies. Please contact the laboratory at [phone] for redraw instructions.Performed By: #### [id number], PTT, MG, BMP, CBC, PT #### [facility] [address] [place] [address] USAVitamin D 25 Hydroxy Totalon 67-68-0977Xsnmhmn D 25 Hydroxy Total22.5 ng/iCDfr76-034Zui [facility] Physician GroupComment on above: Result Comment: VITAMIN D STATUS 25(OH)VITAMIN D RANGE (ng/mL) Deficient <20 Insufficient 20 to <30 Sufficient 30 to 100 Reference: Ernesto MF,Pierre NC, Gladys HOUSTON, et al. Evaluation,treatment, and prevention of vitamin D deficiency; an Endocrine Society clinical practice guideline. JCEM. 2010; 96(7):1911-30. PERFORMED BY: [facility] [address] [place] [address] PATHOLOGIST ACCOUNT GROUP SUPERVISOR MELVIN RICHARDS M.D.Performed By: #### [id number], PTT, MG, BMP, CBC, PT ####[facility] [address] [place] [address] USAXR CHEST 2 VIEWSon 01-19-2024 Exam Date/Time: 01/18/2024 10:27 EDT Reason for [...] quadrant of the abdomen. Ordering Provider: Cindy Aguilar FINAL REPORT Dictated: 01/19/2024 4:29 pm Karthik Rice M.D. Signed (Electronic Signature): 01/19/2024 4:29 pm Signed by: Karthik Rice M.D. Transcribed by: [place] Technologist: FAITH Technical Comments Radiation Dose: Ka,r in mGy = na DAP = naFTMCRadiology, Radiologist, MD - 01/19/2024 Exam Date/Time: 01/18/2024 [...] quadrant of the abdomen. Ordering Provider: Cindy Aguilar FINAL REPORT Dictated: 01/19/2024 4:29 pm Karthik Rice M.D. Signed (Electronic Signature): 01/19/2024 4:29 pm Signed by: Karthik Rice M.D. Transcribed by: [place] Technologist: FAITH Technical Comments Radiation Dose: Ka,r in mGy = na DAP = na [facility] SystemsXR CHEST 2 VIEWSOrdered By: Radiologist Radiology on 01-19-2024 [facility] [employer] Work Phone: XR Chest 2 Viewson 38-25-2701GZ Chest 2 ViewsExam Date/Time: 01/18/2024 10:27 EDT Reason for Exam: [...] quadrant of the abdomen. Ordering Provider: Cindy Aguilar FINAL REPORT Dictated: 01/19/2024 4:29 pm Karthik Rice M.D. Signed (Electronic Signature): 01/19/2024 4:29 pm Signed by: Karthik Rice M.D. Transcribed by: [place] Technologist: FAITH Technical Comments Radiation Dose: Ka,r in mGy = na DAP = naNorVan Wert County HospitalBMPon 87-63-7991Ulxgr gap [Moles/Vol]10 mmol/LNormal6-16[facility] FoundationComment on above:Performed By: #### [id number] #### [facility] [address] [place], [place] [address]Hfttknz [Mass/Vol]9.6 mg/dLNormal8.9-11.1FCoshocton Regional Medical CenterComment on above:Performed By: #### [id number] #### [facility] [address] [place], [place] [address]Fnxubnhp [Moles/Vol]107 mmol/UNmigkd118-900CanybrCleveland Clinic FoundationComment on above:Performed By: #### [id number] #### [facility] [address] [place], [place] [address]SE7 [Moles/Vol]26 mmol/HTidxey88-19EqzozjCleveland Clinic Foundation Comment on above:Performed By: #### [id number] #### [facility] [address] [place], [place] [address]Qlyxsztztd [Mass/Vol]0.9 mg/dLNormal0.5-1.3FCoshocton Regional Medical CenterComment on above:Performed By: #### [id number] #### [facility] [address] [place], [place] [address]Cgsrlur [Mass/Vol]95 mg/zFSdhmzz16-679PojmmdCleveland Clinic FoundationComment on above:Performed By: #### [id number] #### [facility] [address] [place], [place] [address]Kzhxvspww [Moles/Vol]3.9 mmol/LNormal3.5-5.3FCoshocton Regional Medical CenterComment on above:Performed By: #### [id number] #### [facility] [address] [place], [place] [address]Dokvmj [Moles/Vol]139 mmol/ECjvgjy705-578XbisleCleveland Clinic FoundationComment on above:Performed By: #### [id number] #### [facility] [address] [place], [place] [address]Viia nitrogen [Mass/Vol]9 mg/dLNormal5-21[facility] FoundationComment on above:Performed By: #### [id number] #### [facility] [address] [place], [place] [address]Zfiz nitrogen/Creatinine [Mass ratio]10 No OlscqKvggse82-66 [facility] FoundationComment on above:Performed By: #### [id number] #### [facility] [address] [place], [place] [address]ZSR w/Indiceson 54-29-6274Hpmlgdkejlv distribution width (RBC) [Ratio]14.5 %High10.9-14.2FCoshocton Regional Medical CenterComment on above:Performed By: #### [id number] #### [facility] [address] [place] [address]Vovkhxtlah (Bld) [Volume fraction]43.1 %Ffanbj70.0-46.0[facility] FoundationComment on above:Performed By: #### [id number] #### [facility] [address] [place], [place] [address]Ipnpjhivqd (Bld) [Mass/Vol]14.5 g/yRIchunq38.0-16.0[facility] FoundationComment on above:Performed By: #### [id number] #### [facility] [address] [place] [address]LWW (RBC) [Entitic mass]30.6 qhRbmady63.0-34.0[facility] FoundationComment on above:Performed By: #### [id number] #### [facility] [address] [place] [address]ATNU (RBC) [Mass/Vol]33.6 g/eHIcqgqp28.4-36.0[facility] FoundationComment on above:Performed By: #### [id number] #### [facility] [address] [place] [address]WFM (RBC) [Entitic vol]91.0 oNXerxym42.0-100.0[facility] FoundationComment on above:Performed By: #### [id number] #### [facility] [address] [place] [address]Cweztvhc mean volume (Bld) [Entitic vol]7.5 fLNormal6.4-10.8 [facility] FoundationComment on above:Performed By: #### [id number] #### [facility] [address] [place] [address]Icjafjvjg (Bld) [#/Vol]300.0 E9/ZIiidgr658.0-500.0[facility] FoundationComment on above:Performed By: #### [id number] #### [facility] [address] [place] [address]LKU (Bld) [#/Vol]4.7 E12/LNormal4.3-5.9[facility] FoundationComment on above:Performed By: #### [id number] #### [facility] [address] [place] [address]GBE size Nom (Bld)NORMALInvalid Interpretation CodeCleveland Clinic FoundationComment on above:Performed By: #### [id number] #### [facility] [address] [place] [address]ALG corrected for nucl RBC Auto (Bld) [#/Vol]5.9 E9/LNormal 4.0-11.0[facility] Clinic FoundationComment on above:Performed By: #### [id number] #### [facility] [address] [place], [place] [address]IB CHEST 2 VIEWSon 13-69-6291Easjqybey Study observation (narrative)NOMS HealthcareeGFRon 22-44-3418jGMD94 mL/min/1.73 n4Zmgbrd>=59[facility] Medical CenterComment on above:Order Comment: Order added by Discern Expert.Performed By: #### [id number] #### [facility] [address] [place], [place] [address]KFVOFTOas 69-77-4548Jrbikbm [Catalytic activity/Vol]117 U/L Critically rpwe40-372Pfw [facility] HospitalComment on above:Performed By: #### TSH, T7, ALIYAH, LIPA, CMP ####[facility] [address] [place] [address]Dr. Yilan ChangCBC AUTO DIFFon 76-17-9746PQUR #0.1 103/ulNormal0.0-0.1[facility] Medical CenterComment on above:Performed By: #### CBC ####[facility] [address] [place] [address]Dr. Yilan ChangBasophils/100 WBC (Bld)0.6 %Normal0.2-2.0The [facility] HospitalComment on above:Performed By: #### CBC ####[facility] J[address]xtebtgm[address] [place] [address]Dr.Yilan ChangEO #0.1 103/ulNormal0.0-0.7The [facility] HospitalComment on above:Performed By: #### CBC ####[facility] Cpubtv[address] [place], [place] [address]Dr.Yilan ChangEosinophils/100 WBC (Bld)0.7 %Critically low0.9-7.0The [facility] Community HospitalComment on above: Performed By: #### CBC ####[facility] Umcgm[address]ruz[address] [place], [place] [address]Dr.Yilan ChangErythrocyte distribution width (RBC) [Ratio]13.6 %Pnvdqr60.0-15.0The [facility]rell HospitalComment on above:Performed By: #### CBC ####[facility] Ltdnfeavsl[address] [place], [place] [address]Dr.Lawrence WayneHematocrit (Bld) [Volume fraction]45.6 %Tfszai03.0-48.0The [facility] HospitalComment on above:Performed By: #### CBC ####[facility] W[address]ckcfzccz[address] [place], [place] [address]Dr.Lawrence ToneHemoglobin (Bld) [Mass/Vol]15.4 g/oLWzjshl31.0-16.0The [facility] HospitalComment on above: Performed By: #### CBC ####[facility] Ozhnquhexj[address] [place], [place] [address]Dr.Yilan ChangIG #0.03 10e3/ulNormal0.00-0.03The [facility] HospitalComment on above:Performed By: #### CBC ####[facility] Mreppcstdu[address] [place], [place] [address]Dr.Lawrence WayneIG %0.4 %Normal 0.0-0.5The [facility] HospitalComment on above:Performed By: #### CBC ####[facility] Cthmwsujvm[address] [place], [place] [address]Dr.Lawrence WayneLYMPH #2.8 103/ulNormal1.2-3.8The [facility] Community HospitalComment on above:Performed By: #### CBC ####[facility] Lhbvnoilwr[address] [place], [place] [address]Dr.Lawrence WayneLymphocytes/100 WBC (Bld)33.5 %Pkndik93.5-60.0The [facility] HospitalComment on above:Performed By: #### CBC ####[facility] Wprtbnwwso[address] [place], [place] [address]Dr.Lawrence WayneMANUAL DIFF REQ NONormalThe [facility]rell HospitalComment on above:Performed By: #### CBC ####[facility] Roigyufbua[address] [place], [place] [address]Dr. Lawrence WayneMCH (RBC) [Entitic mass]30.1 pfEwirhe28.7-34.0The [facility] Comment on above:Performed By: #### CBC ####[facility] Ddxultfzyh[address] [place] [address]Dr.Lawrence WayneHC (RBC) [Mass/Vol]33.8 g/dL Mlcgse50.9-35.2The [facility] Community HospitalComment on above:Performed By: #### CBC ####[facility] Relxlmewkk[address] [place], [place] [address]Dr. Laraantonio WayneMCV (RBC) [Entitic vol]89.2 pOSbufqi50.0-99.0The [facility] Comment on above:Performed By: #### CBC ####[facility] Sprxtxjbew[address] [place], [place] [address]DrKimLawrence WayneMONO #0.8 103/ulNormal0.3-0.8 The [facility] HospitalComment on above:Performed By: #### CBC ####[facility] Glpkrktmii24[address] [place], [place] [address]Dr.Laraantonio Wayne Monocytes/100 WBC (Bld)9.3 %Normal1.7-12.0The [facility] HospitalComment on above: Performed By: #### CBC ####[facility] Vzptslktgu[address] [place], [place] [address]DrKimLawrence WayneNEUT #4.6 103/ulNormal1.4-6.5The [facility] HospitalComment on above:Performed By: #### CBC ####[facility] Fcjtmtmigb[address] [place], [place] [address]Dr.Laraantonio WayneNeutrophils/100 WBC (Bld)55.5 %Dlyale30.0-75.0The [facility] HospitalComment on above:Performed By: #### CBC ####[facility] Oaaucrnpqy[address] [place], [place] [address]DrKimLaraantonio WaynePlatelet mean volume (Bld) [Entitic vol]8.6 fLCritically low 9.5-13.5The [facility] HospitalComment on above:Performed By: #### CBC ####[facility] Bmvuojikuw[address] [place], [place] [address]Dr. Lawrence XrxehKYK172 103/mlWoojgn987-510Mqt [facility] HospitalComment on above: Performed By: #### CBC ####[facility] Exzm[address]yfj[address] [place] [address]Dr.Lawrence ChangRBC5.11 106/ulNormal4.20-5.40The [facility] HospitalComment on above:Performed By: #### CBC ####[facility] Uhfrsnvjcx[address] [place] [address]Dr.Lawrence ChangWBC8.3 103/ul Normal4.0-11.0The [facility] Community HospitalComment on above:Performed By: #### CBC ####[facility] [address]brvgrv[address] [place] [address]Dr. Lawrence WayneFREE THYROXINE INDEX T7on 01-87-8750DMA5.62Egyhbg3.30-4.50The [facility] HospitalComment on above:Performed By: #### TSH, T7, ALIYAH, LIPA, CMP ####[facility] [address]vu[address]auj[address] [place] [address]Dr. Lawrence WayneT3U36.0 %Lkebhk97.0-39.0The [facility] HospitalComment on above: Performed By: #### TSH, T7, ALIYAH, LIPA, CMP ####[facility] Oxgxgwwatc[address] [place] [address]Dr. Lawrence ChangT4 [Mass/Vol]9.10 ug/dLNormal 4.80-13.90The [facility] HospitalComgarden city hospital on above:Performed By: #### TSH, T7, ALIYAH, LIPA, CMP ####[facility] [address]ddmttof[address] [place] [address]Dr. Lawrence ChangLIPASEon 62-89-2946Fuytvh [Catalytic activity/Vol]125.0 U/L Vedpqh59.0-393.0The [facility] on above:Performed By: #### TSH, T7, ALIYAH, LIPA, CMP ####[facility] [address] [place] [address]Dr. Lawrence ChangPROF 14(COMP METB)on 82-12-5492Kxgvufo [Mass/Vol] 3.8 g/dLNormal3.4-5.0The [facility] HospitalComment on above:Performed By: #### TSH, T7, ALIYAH, LIPA, CMP ####[facility] Zza[address]iqxqb[address] [place] [address]Dr. Yilan ChangAlbumin/Globulin [Mass ratio]1.1 {ratio}NormalThe [facility] Community HospitalComment on above:Performed By: #### TSH, T7, ALIYAH, LIPA, CMP ####[facility] [address]ch[address] [place] [address]Dr. Yilan ChangALP [Catalytic activity/Vol]104 U/PQgmenf97-586Ywp [facility] HospitalComment on above:Performed By: #### TSH, T7, ALIYAH, LIPA, CMP ####[facility] F[address]ltql[address] [place] [address]Dr. Yilan ChangALT [Catalytic activity/Vol]36 U/OUydhiy93-07Bwu [facility] Comment on above:Performed By: #### TSH, T7, ALIYAH, LIPA, CMP ####[facility] Peerzingjy[address] [place], [place] [address]Dr. Yilan ChangAnion gap [Moles/Vol]11.7 mmol/LNormalThe [facility] Rehabilitation Hospitalment on above:Performed By: #### TSH, T7, ALIYAH, LIPA, CMP ####[facility] [address]exdmzkmfi[address] [place] [address]Dr. Yilan ChangAST [Catalytic activity/Vol]22 U/L Qnbsdv44-93Cee [facility] HospitalComment on above:Performed By: #### TSH, T7, ALIYAH, LIPA, CMP ####[facility] Nvfijfchbc[address] [place], [place] [address]Dr. Yilan ChangBilirubin [Mass/Vol]0.5 mg/dLNormal0.2-1.0The [facility] Hospitalment on above:Performed By: #### TSH, T7, ALIYAH, LIPA, CMP ####[facility] Bwkfkiddec[address] Main StreetBellevue, [place] [address]Lr. Yilan Wayne Calcium [Mass/Vol]9.8 mg/dLNormal8.5-10.1The [facility] HospitalComment on above: Performed By: #### TSH, T7, ALIYAH, LIPA, CMP ####[facility] [address] [address]Dr. Yilan ChangChloride [Moles/Vol]102 mmol/VFhgwci27-167Vuy [facility] HospitalComment on above:Performed By: #### TSH, T7, ALIYAH, LIPA, CMP ####[facility] Petpmcuq[address] [place], [place] [address]Dr. Yilan ChangCO2 [Moles/Vol]29.3 mmol/SBombwu35.0-32.0The [facility] HospitalComment on above:Performed By: #### TSH, T7, ALIYAH, LIPA, CMP ####[facility] K[address]so[address] [place], [place] [address]Dr. Yilan ChangCreatinine [Mass/Vol]0.88 mg/dLNormal0.55-1.02The [facility] Comment on above:Performed By: #### TSH, T7, ALIYAH, LIPA, CMP ####[facility] Yjy[address]cf[address] [place], [place] [address]Dr. Yilan ChangEGFR- AF CENTRAL AFRICAN>60Normal>=60The [facility] Hospitalment on above:Performed By: #### TSH, T7, ALIYAH, LIPA, CMP ####[facility] Rqnlarfh[address] [place], [place] [address]Dr. Yilan ChangEGFR-NON AF CENTRAL AFRICAN>60Normal>=60The [facility] HospitalComment on above:Performed By: #### TSH, T7, ALIYAH, LIPA, CMP ####[facility] Xcgkzwrvom[address] [place], [place] [address]Dr. Yilan ChangGlobulin (S) [Mass/Vol]3.5 g/dLNormalThe [facility] HospitalComment on above:Performed By: #### TSH, T7, ALIYAH, LIPA, CMP ####[facility] Umijuacioh[address] [place], [place] [address]Dr. Yilan ChangGlucose [Mass/Vol]98 mg/aCVvzybr96-457Nvn [facility] HospitalComment on above:Performed By: #### TSH, T7, ALIYAH, LIPA, CMP ####[facility] [address] [address]Dr. Yilan ChangPotassium [Moles/Vol]3.9 mmol/LNormal 3.5-5.1The [facility] HospitalComment on above:Performed By: #### TSH, T7, ALIYAH, LIPA, CMP ####[facility] Vpeukxyihf[address] [place], [place] [address]Dr. Yilan ChangProtein [Mass/Vol]7.3 g/dLNormal6.4-8.2The [facility] Comment on above:Performed By: #### TSH, T7, ALIYAH, LIPA, CMP ####[facility] Sucnwo[address]pe[address] [place], [place] [address]Dr. Yilan Wayne Sodium [Moles/Vol]139 mmol/CYzvzrr468-166Nqo [facility] HospitalComment on above: Performed By: #### TSH, T7, ALIYAH, LIPA, CMP ####[facility] Jabpsbuldi[address] [place], [place] [address]Dr. Yilan ChangUrea nitrogen [Mass/Vol]11.0 mg/dLNormal7.0-18.0The [facility] HospitalComg[facility] city hospital on above:Performed By: #### TSH, T7, ALIYAH, LIPA, CMP ####[facility] Fueukb[address] [place], [place] [address]Dr. Yilan ChangUrea nitrogen/Creatinine [Mass ratio]12.5 mg/mg NormalThe [facility] HospitalComment on above:Performed By: #### TSH, T7, ALIYAH, LIPA, CMP ####[facility] Zyhrvqotrs[address] [place], [place] [address]Dr. Lawrence WayneTSHon 27-95-7355GNV9.744 uIU/mLNormal0.358-3.740The [facility] HospitalComment on above:Performed By: #### TSH, T7, ALIYAH, LIPA, CMP ####[facility] [address]gcqttf[address] [place], [place] [address]Dr. Lawrence Duval AUTO DIFFon 25-46-2316YUWA #0.0 103/ulNormal0.0-0.1The [facility] HospitalComment on above:Performed By: #### ALIYAH, CMP, LIPA #### [facility] [address] [place] [address] Dr. Lawrence WayneBasophils/100 WBC (Bld)0.4 %Normal0.2-2.0The [facility] Comment on above:Performed By: #### ALIYAH, CMP, LIPA #### [facility] [address] [place] [address] Dr. Lawrence Craig #0.0 103/ulNormal0.0-0.7The [facility] HospitalComment on above: Performed By: #### ALIYAH, CMP, LIPA #### [facility] [address] [place] [address] Dr. Lawrence Thomasosinophils/100 WBC (Bld)0.8 %Critically low0.9-7.0The [facility] HospitalComment on above:Performed By: #### ALIYAH, CMP, LIPA #### [facility] [address] [place] [address] Dr. Lawrence Thomasrythrocyte distribution width (RBC) [Ratio]13.2 %Syrcpx70.0-15.0 The [facility] HospitalComment on above:Performed By: #### ALIYAH, CMP, LIPA #### [facility] [address] [place] [address] Dr. Lawrence WayneHematocrit (Bld) [Volume fraction]43.1 %Deqeie60.0-48.0The [facility] HospitalComment on above:Performed By: #### ALIYAH, CMP, LIPA #### [facility] [address] [place] [address] Dr. Lawrence WayneHemoglobin (Bld) [Mass/Vol]15.1 g/oHVnzqvn74.0-16.0The [facility] HospitalComment on above:Performed By: #### ALIYAH, CMP, LIPA #### [facility] [address] [place], [place] [address] Dr. Lawrence Rebolledo #0.03 10e3/ulNormal0.00-0.03The [facility] HospitalComment on above:Performed By: #### ALIYAH, CMP, LIPA #### [facility] [address] [place] [address] Dr. Lawrence Rebolledo %0.6 %Critically high0.0-0.5The [facility] HospitalComment on above:Performed By: #### ALIYAH, CMP, LIPA #### [facility] [address] [place] [address] Dr. Lawrence Juarez #1.1 103/ulCritically low1.2-3.8The [facility] Comment on above:Performed By: #### ALIYAH, CMP, LIPA #### [facility] [address] [place] [address] Dr. Lawrence Mccallhocytes/100 WBC (Bld)22.0 %Wuewwv81.5-60.0The [facility] HospitalComment on above:Performed By: #### ALIYAH, CMP, LIPA #### [facility] [address] [place] [address] Dr. Lawrence MccordUAL DIFF REQNONormalThe [facility] HospitalComment on above: Performed By: #### ALIYAH, CMP, LIPA #### [facility] [address] [place] [address] Dr. Lawrence Ivan (RBC) [Entitic mass]30.3 pjChznku72.7-34.0The [facility] HospitalComment on above:Performed By: #### ALIYAH, CMP, LIPA #### [facility] [address] [place] [address] Dr. Lawrence Ivan (RBC) [Mass/Vol]35.0 g/mISbszvt85.9-35.2The [facility] HospitalComment on above:Performed By: #### ALIYAH, CMP, LIPA #### [facility] [address] [place] [address] Dr. Lawrence Ivan (RBC) [Entitic vol]86.4 nYElmquv29.0-99.0The [facility] HospitalComment on above:Performed By: #### ALIYAH, CMP, LIPA #### [facility] [address] [place] [address] Dr. Lawrence Lees #0.7 103/ulNormal0.3-0.8The [facility] HospitalComment on above:Performed By: #### ALIYAH, CMP, LIPA #### [facility] [address] [place] [address] Dr. Lawrence Wagnerocytes/100 WBC (Bld)13.6 %Critically high1.7-12.0The [facility] HospitalComment on above:Performed By: #### ALIYAH, CMP, LIPA #### [facility] [address] [place] [address] Dr. Lawrence Hilliard #3.2 103/ulNormal1.4-6.5The [facility] HospitalComment on above:Performed By: #### ALIYAH, CMP, LIPA #### [facility] [address] [place] [address] Dr. Lawrence Mezautrophils/100 WBC (Bld)62.6 %Torlgo36.0-75.0The [facility] HospitalComment on above:Performed By: #### ALIYAH, CMP, LIPA #### [facility] [address] [place] [address] Dr. Lawrence Polanco mean volume (Bld) [Entitic vol]9.0 fLCritically low 9.5-13.5The [facility] HospitalComment on above:Performed By: #### ALIYAH, CMP, LIPA #### [facility] [address] [place] [address] Dr. Lawrence TrujilloT257 103/hqDzhvom068-548Eju [facility] HospitalComment on above: Performed By: #### ALIYAH, CMP, LIPA #### [facility] [address] [place] [address] Dr. Lawrence WayneRBC4.99 106/ulNormal4.20-5.40The [facility] HospitalComment on above:Performed By: #### ALIYAH, CMP, LIPA #### [facility] [address] [place] [address] Dr. Lawrence WayneWBC5.1 103/ulNormal4.0-11.0The [facility] on above: Performed By: #### ALIYAH, CMP, LIPA #### [facility] [address] [place] [address] Dr. Lawrence RICCI AGon 70-12-3522QIIVDFGHPJBJI BELOWSCCI Hospital LimaComment on above:Result Comment: Negative for Flu B protein antigen. Infection due to Flu B cannot be ruled out. FluB antigen in the sample may be below the detection limit of the test.Performed By: #### ALIYAH, CMP, LIPA #### [facility] [address] [place] [address] Dr. Lawrence Howell AGPositiveAbnormalNEGATIVE SEE COMMENTThe [facility] on above:Performed By: #### ALIYAH, CMP, LIPA #### [facility] [address] [place] [address] Dr. Lawrence Rajan AGNegativeNormalNEGATIVE SEE COMMENTThe [facility] on above:Performed By: #### ALIYAH, CMP, LIPA #### [facility] [address] [place] [address] Dr. Lawrence WaynePROF 14(COMP METB)on 38-71-4992Eqrfxkm [Mass/Vol]3.4 g/dLNormal 3.4-5.0The [facility] HospitalComgarden city hospital on above:Performed By: #### ALIYAH, CMP, LIPA #### [facility] [address] [place] [address] Dr. Lawrence WayneAlbumin/Globulin [Mass ratio]0.9 {ratio}NormalThe [facility] on above:Performed By: #### ALIYAH, CMP, LIPA #### [facility] [address] [place] [address] Dr. Lawrence AlemanP [Catalytic activity/Vol]94 U/LQygiad51-609Hlb [facility] HospitalComment on above:Performed By: #### ALIYAH, CMP, LIPA #### [facility] [address] [address] [address] Lawrence Gomez [Catalytic activity/Vol]36 U/TFpfsbt98-00Lds [facility] HospitalComment on above:Performed By: #### ALIYAH, CMP, LIPA #### [facility] [address] [place] [address] Dr. Lawrence Kiddon gap [Moles/Vol]18.9 mmol/LNormalThe [facility] Comment on above:Performed By: #### ALIYAH, CMP, LIPA #### [facility] [address] [place] [address] Dr. Lawrence Pacheco [Catalytic activity/Vol]32 U/AUgvxig42-60Unl [facility] HospitalComment on above:Performed By: #### ALIYAH, CMP, LIPA #### [facility] [address] [place] [address] Dr. Lawrence WayneBilirubin [Mass/Vol]0.4 mg/dLNormal0.2-1.0The [facility] Comment on above:Performed By: #### ALIYAH, CMP, LIPA #### [facility] [address] [place] [address] Dr. Lawrence WayneCalcium [Mass/Vol]9.1 mg/dLNormal8.5-10.1[facility] Comment on above:Performed By: #### ALIYAH, CMP, LIPA #### [facility] [address] [place] [address] Dr. Lawrence WayneChloride [Moles/Vol]100 mmol/FSvqqbw93-023Zei [facility] Comment on above:Performed By: #### ALIYAH, CMP, LIPA #### [facility] [address] [place] [address] Dr. Lawrence WayneCO2 [Moles/Vol]19.7 mmol/LCritically low21.0-32.0The [facility] HospitalComment on above:Performed By: #### ALIYAH, CMP, LIPA #### [facility] [address] [place] [address] Dr. Yilan ChangCreatinine [Mass/Vol]1.13 mg/dLCritically high0.55-1.02The [facility] HospitalComment on above:Performed By: #### ALIYAH, CMP, LIPA #### [facility] [address] [address] [address] Bravo ChangEGFR-AF EFCZVIAA32 mL/min/1.83g6Vecpwnradq low>=60The [facility] HospitalComment on above:Performed By: #### ALIYAH, CMP, LIPA #### [facility] [address] [address] [address] Lawrence ThomasGFR-NON AF FNVLOSSU80 mL/min/1.64c3Yvzfkagcsn low>=60The [facility] HospitalComment on above:Performed By: #### ALIYAH, CMP, LIPA #### [facility] [address] [place] [address] Dr. Lawrence WayneGlobulin (S) [Mass/Vol]3.9 g/dLNormalThe [facility] HospitalComment on above:Performed By: #### ALIYAH, CMP, LIPA #### [facility] [address] [place] [address] Dr. Lawrence WayneGlucose [Mass/Vol]105 mg/hTCyiktt62-304Whw [facility] Comment on above:Performed By: #### ALIYAH, CMP, LIPA #### [facility] [address] [place] [address] Dr. Lawrence WaynePotassium [Moles/Vol]3.6 mmol/LNormal3.5-5.1The [facility] Comment on above:Performed By: #### ALIYAH, CMP, LIPA #### [facility] [address] [place] [address] Dr. Lawrence WayneProtein [Mass/Vol]7.3 g/dLNormal6.4-8.2The [facility] Comment on above:Performed By: #### ALIYAH, CMP, LIPA #### [facility] [address] [place] [address] Dr. Lawrence WayneSodium [Moles/Vol]135 mmol/LCritically tpz052-770Icx [facility] HospitalComment on above:Performed By: #### ALIYAH, CMP, LIPA #### [facility] [address] [place], [place] [address] Dr. Lawrence Faulkner nitrogen [Mass/Vol]13.0 mg/dLNormal7.0-18.0[facility] CenterComment on above:Performed By: #### ALIYAH, CMP, LIPA #### [facility] [address] [address] [address] Lawrence Faulkner nitrogen/Creatinine [Mass ratio]11.5 mg/mgNormalThe [facility] HospitalComment on above:Performed By: #### ALIYAH, CMP, LIPA #### [facility] [address] [address] [address] Lawrence WayneI [facility] WO CONon [id number] [facility] CONEXAMINATION: MRI [facility] CON HISTORY: Cervical radiculopathy ; chronic cervical [...] Electronically authenticated by: TYRELL MOREJON Date: 2022-05-20 10:26NormPremier Health Miami [facility] Hospital NorthAMYLASEon [id number] [Catalytic activity/Vol]81 U/L Clssfh18-852Efx [facility] HospitalComment on above:Performed By: #### ALIYAH, CMP, LIPA #### [facility] [address] [address] [address] Lawrence Duval AUTO DIFFon [id number] #0.0 103/ulNormal0.0-0.1The [facility] HospitalComment on above:Performed By: #### ALIYAH, CMP, LIPA #### [facility] [address] [place] [address] Dr. Lawrence WayneBasophils/100 WBC (Bld)0.8 %Normal0.2-2.0[facility] Comment on above:Performed By: #### ALIYAH, CMP, LIPA #### [facility] [address] [address] [address] Lawrence Craig #0.1 103/ulNormal0.0-0.7The [facility] HospitalComment on above: Performed By: #### ALIYAH, CMP, LIPA #### [facility] [address] [place] [address] Dr. Lawrence Thomasosinophils/100 WBC (Bld)1.5 %Normal0.9-7.0[facility] Comment on above:Performed By: #### ALIYAH, CMP, LIPA #### [facility] [address] [place] [address] Dr. Lawrence Thomasrythrocyte distribution width (RBC) [Ratio]12.7 %Tjscni64.0-15.0 The [facility] HospitalComment on above:Performed By: #### ALIYAH, CMP, LIPA #### [facility] [address] [place] [address] Dr. Lawrence WayneHematocrit (Bld) [Volume fraction]40.5 %Lxjkfh06.0-48.0The [facility] HospitalComment on above:Performed By: #### ALIYAH, CMP, LIPA #### [facility] [address] [place] [address] Dr. Lawrence WayneHemoglobin (Bld) [Mass/Vol]13.8 g/sSDzrawk40.0-16.0The [facility] HospitalComment on above:Performed By: #### ALIYAH, CMP, LIPA #### [facility] [address] [place] [address] Dr. Lawrence Rebolledo #0.01 10e3/ulNormal0.00-0.03The [facility] HospitalComment on above:Performed By: #### ALIYAH, CMP, LIPA #### [facility] [address] [place] [address] Dr. Lawrence Rebolledo %0.2 %Normal0.0-0.5The [facility] HospitalComment on above: Performed By: #### ALIYAH, CMP, LIPA #### [facility] [address] [place] [address] Dr. Lawrence Juarez #1.7 103/ulNormal1.2-3.8The [facility] HospitalComment on above:Performed By: #### ALIYAH, CMP, LIPA #### [facility] [address] [place] [address] Dr. Lawrence Mccallhocytes/100 WBC (Bld)32.7 %Whlygm63.5-60.0The [facility] HospitalComment on above:Performed By: #### ALIYAH, CMP, LIPA #### [facility] [address] [place] [address] Dr. Lawrence MccordUAL DIFF REQNONormalThe [facility] HospitalComment on above: Performed By: #### ALIYAH, CMP, LIPA #### [facility] [address] [place] [address] Dr. Lawrence Luque (RBC) [Entitic mass]30.5 aqMsheiq93.7-34.0The [facility] HospitalComment on above:Performed By: #### ALIYAH, CMP, LIPA #### [facility] [address] [place] [address] Dr. Lawrence Ivan (RBC) [Mass/Vol]34.1 g/gJBibdsy90.9-35.2The [facility] HospitalComment on above:Performed By: #### ALIYAH, CMP, LIPA #### [facility] [address] [place] [address] Dr. Lawrence Ivan (RBC) [Entitic vol]89.4 gVDhbieg50.0-99.0The [facility] HospitalComment on above:Performed By: #### ALIYAH, CMP, LIPA #### [facility] [address] [place] [address] Dr. Lawrence Lees #0.6 103/ulNormal0.3-0.8The [facility] HospitalComment on above:Performed By: #### ALIYAH, CMP, LIPA #### [facility] [address] [place] [address] Dr. Lawrence Wagnerocytes/100 WBC (Bld)10.5 %Normal1.7-12.0The [facility] Comment on above:Performed By: #### ALIYAH, CMP, LIPA #### [facility] [address] [place] [address] Dr. Lawrence Hilliard #2.9 103/ulNormal1.4-6.5The [facility] HospitalComment on above:Performed By: #### ALIYAH, CMP, LIPA #### [facility] [address] [place] [address] Dr. Lawrence Mezautrophils/100 WBC (Bld)54.3 %Bnfopk72.0-75.0The [facility] HospitalComment on above:Performed By: #### ALIYAH, CMP, LIPA #### [facility] [address] [place] [address] Dr. Lawrence Millerlet mean volume (Bld) [Entitic vol]9.4 fLCritically low 9.5-13.5The [facility] HospitalComment on above:Performed By: #### ALIYAH, CMP, LIPA #### [facility] [address] [place] [address] Dr. Lawrence WaynePLT292 103/gzNgjtxx263-754Axb [facility] on above: Performed By: #### ALIYAH, CMP, LIPA #### [facility] [address] [place] [address] Dr. Lawrence WayneRBC4.53 106/ulNormal4.20-5.40The [facility] on above:Performed By: #### ALIYAH, CMP, LIPA #### [facility] [address] [place] [address] Dr. Lawrence WayneWBC5.3 103/ulNormal4.0-11.0The [facility] on above: Performed By: #### ALIYAH, CMP, LIPA #### [facility] [address] [place] [address] Dr. Lawrence SimmsASEon 40-08-8149Gnyorp [Catalytic activity/Vol]86.0 U/LNormal 73.0-393.0The [facility] on above:Performed By: #### ALIYAH, CMP, LIPA #### [facility] [address] [place] [address] Dr. Lawrence WaynePROF 14(COMP METB)on 35-24-8530Yhuxues [Mass/Vol]3.7 g/dLNormal 3.4-5.0The [facility] on above:Performed By: #### ALIYAH, CMP, LIPA #### [facility] [address] [place] [address] Dr. Lawrence WayneAlbumin/Globulin [Mass ratio]1.1 {ratio}NormalThe [facility] HospitalComgarden city hospital on above:Performed By: #### ALIYAH, CMP, LIPA #### [facility] [address] [place] [address] Dr. Lawrence AlemanP [Catalytic activity/Vol]96 U/LRvqevy11-393Rfr [facility] on above:Performed By: #### ALIYAH, CMP, LIPA #### [facility] [address] [place] [address] Dr. Lawrence AlemanT [Catalytic activity/Vol]24 U/HYgicod63-49Egu [facility] HospitalComment on above:Performed By: #### ALIYAH, CMP, LIPA #### [facility] [address] [address] [address] Lawrence WayneAnion gap [Moles/Vol]8.3 mmol/LNormalThe [facility] HospitalComment on above:Performed By: #### ALIYAH, CMP, LIPA #### [facility] [address] [address] [address] Lawrence WayneAST [Catalytic activity/Vol]19 U/XYwrzio69-16Mkg [facility] HospitalComment on above:Performed By: #### ALIYAH, CMP, LIPA #### [facility] [address] [address] [address] Lawrence WayneBilirubin [Mass/Vol]0.2 mg/dLNormal0.2-1.0The [facility] Comment on above:Performed By: #### ALIYAH, CMP, LIPA #### [facility] [address] [place] [address] Dr. Lawrence WayneCalcium [Mass/Vol]9.1 mg/dLNormal8.5-10.1The [facility] Comment on above:Performed By: #### ALIYAH, CMP, LIPA #### [facility] [address] [place] [address] Dr. Lawrence WayneChloride [Moles/Vol]103 mmol/UWwnjlr11-894Vcz [facility] Comment on above:Performed By: #### ALIYAH, CMP, LIPA #### [facility] [address] [place] [address] Dr. Lawrence WayneCO2 [Moles/Vol]30.6 mmol/TXbahop09.0-32.0The [facility] [facility] Comment on above:Performed By: #### ALIYAH, CMP, LIPA #### [facility] [address] [place] [address] Dr. Lawrence WayneCreatinine [Mass/Vol]0.88 mg/dLNormal0.55-1.02The [facility] HospitalComment on above:Performed By: #### ALIYAH, CMP, LIPA #### [facility] [address] [place] [address] Dr. Lawrence ThomasGFR-AF CENTRAL AFRICAN>60Normal>=60[facility] CenterComment on above:Performed By: #### ALIYAH, CMP, LIPA #### [facility] [address] [address] [address] Lawrence ThomasGFR-NON AF CENTRAL AFRICAN>60Normal>=60The [facility] HospitalComment on above:Performed By: #### ALIYAH, CMP, LIPA #### [facility] [address] [address] [address] Lawrence WayneGlobulin (S) [Mass/Vol]3.4 g/dLNormalThe [facility] HospitalComment on above:Performed By: #### ALIYAH, CMP, LIPA #### [facility] [address] [place] [address] Dr. Lawrence WayneGlucose [Mass/Vol]94 mg/qHSrnzut87-866CsgMercy Health [facility] Comment on above:Performed By: #### ALIYAH, CMP, LIPA #### [facility] [address] [place] [address] Dr. Lawrence WaynePotassium [Moles/Vol]3.9 mmol/LNormal3.5-5.1[facility] Comment on above:Performed By: #### ALIYAH, CMP, LIPA #### [facility] [address] [place] [address] Dr. Lawrence WayneProtein [Mass/Vol]7.1 g/dLNormal6.4-8.2[facility] Comment on above:Performed By: #### ALIYAH, CMP, LIPA #### [facility] [address] [place] [address] Dr. Lawrence WayneSodium [Moles/Vol]138 mmol/LQtrics343-337LoyMercy Health [facility] Center Comment on above:Performed By: #### ALIYAH, CMP, LIPA #### [facility] [address] [place] [address] Dr. Lawrence WayneUrea nitrogen [Mass/Vol]10.0 mg/dLNormal7.0-18.0The [facility] HospitalComment on above:Performed By: #### ALIYAH, CMP, LIPA #### [facility] [address], [place] [address] Dr. Lawrence WyaneUrea nitrogen/Creatinine [Mass ratio]11.4 mg/mgSCCI Hospital LimaComment on above:Performed By: #### ALIYAH, CMP, LIPA #### [facility] [address], [place] [address] Dr. Lawrence WayneMG MAMM SCREEN 3D QING CADon 55-11-2400OU MAMM SCREEN 3D QING CAD Patient: SKIP HONG. Exam Date: 03/26/2022 : 1955 Gender:F Ordering : DR RADHA LYMAN . Admission #: [id number] Family : Order #: [id number] CLICK HERE TO VIEW EXAM RADIOLOGY REPORT [...] breast cancer at age 30. LOCATION: [facility] BREAST COMPOSITION: Heterogeneously dense,which may [...] by: Mark Rasheed MD on 03/26/2022 at 09:53SCC[facility] Hospital LimaNM STRESS/REST MULTIon 49-27-8029ZJ STRESS/REST MULTIPatient: SKIP HONG. Exam Date: 03/24/2022 : 1955 Gender:F Ordering : DR ANITHA RAMEY . Admission #: [id number] Family : Order #: [id number] CLICK HERE TO VIEW EXAM RADIOLOGY REPORT [...] by: Mark Rasheed MD on 03/25/2022 at 07:15NormalThe [facility] HospitalT4, T3U, FTI LABCORPon 74-38-8032Ngjw Thyroxine Index2.5Dvhhja3.2-4.9The [facility] HospitalComment on above:Performed By: #### ALIYAH, CMP, LIPA #### [facility] [address] [address] [address] Lawrence WayneT3 Nylgxu16 %Znxouh05-36Ssj [facility] [place] Hospitalment on above: Performed By: #### ALIYAH, CMP, LIPA #### [facility] [address], [place] [address] Dr. Lawrence WayneT4 [Mass/Vol]8.3 ug/dLNormal4.5-12.0The [facility] Hospitalment on above:Performed By: #### ALIYAH, CMP, LIPA #### [facility] [address] [address] [address] Lawrence Sharma 61-34-0132Nihyqvhcovr peptide B (Bld) [Mass/Vol]78.0 pg/mL Normal<=900.0The [facility] Hospitalment on above:Performed By: #### ALIYAH, CMP, LIPA #### [facility] [address] [address] [address] Lawrence Duval AUTO DIFFon 79-17-6798PDHI #0.1 103/ulNormal0.0-0.1The [facility] on above:Performed By: #### CBC ####[facility] [address] [address]Dr.Lawrence WayneBasophils/100 WBC (Bld)0.9 %Normal0.2-2.0The [facility] on above:Performed By: #### CBC ####[facility] [address] [address]Dr.Lawrence ChangEO #0.1 103/ulNormal0.0-0.7The [facility] on above:Performed By: #### CBC ####[facility] [address] [address]Dr.Lawrence ChangEosinophils/100 WBC (Bld)1.1 %Normal 0.9-7.0The [facility] on above:Performed By: #### CBC ####[facility] [address] [address]DrJesus Wayne Erythrocyte distribution width (RBC) [Ratio]12.6 %Ebpvhq07.0-15.0The [facility] on above:Performed By: #### CBC ####[facility] [address] [place], [place] [address]Dr.Lawrence WayneHematocrit (Bld) [Volume fraction]44.4 %Ukzyuv55.0-48.0The [facility] HospitalComment on above:Performed By: #### CBC ####[facility] [address] [address]Dr.Lawrence ChangHemoglobin (Bld) [Mass/Vol]14.7 g/dL Plajdu05.0-16.0The [facility] HospitalComment on above:Performed By: #### CBC ####[facility] Nalkvhipkt[address] [place], [place] [address]Dr. Lawrence ChangIG #0.02 10e3/ulNormal0.00-0.03The [facility] HospitalComment on above: Performed By: #### CBC ####[facility] U[address]ntbfg[address] [place], [place] [address]Dr.Lawrence ChangIG %0.3 %Normal0.0-0.5The [facility] HospitalComment on above:Performed By: #### CBC ####[facility] Vegmfvzlug[address] [place], [place] [address]Dr.Lawrence ChangLYMPH #1.8 103/ulNormal1.2-3.8The [facility] HospitalComment on above:Performed By: #### CBC ####[facility] Rlxyzhys[address] [place], [place] [address]Dr. Lawrence WayneLymphocytes/100 WBC (Bld)26.1 %Hrpbtw83.5-60.0The [facility] Comment on above:Performed By: #### CBC ####[facility] Zwvxgntymp[address] [place], [place] [address]Dr.Lawrence WayneMANUAL DIFF REQNONormalThe [facility] HospitalComment on above:Performed By: #### CBC ####[facility] Bwgnzzvsay[address] [place], [place] [address]Dr.Lawrence ToneH (RBC) [Entitic mass]30.2 gxCoetuj72.7-34.0The [facility] HospitalComment on above: Performed By: #### CBC ####[facility] Fxuyzgzqmn[address] [place], [place] [address]Dr.Lawrence ToneMCHC (RBC) [Mass/Vol]33.1 g/dLNormal 29.9-35.2The [facility] HospitalComment on above:Performed By: #### CBC ####[facility] [address] [address]Dr. Laraantonio WayneMCV (RBC) [Entitic vol]91.4 wCUvqnmp44.0-99.0The [facility] Comment on above:Performed By: #### CBC ####[facility] S[address]ksvocpc[address] [place], [place] [address]Dr.Lawrence WayneMONO #0.8 103/ulNormal0.3-0.8 The [facility] HospitalComment on above:Performed By: #### CBC ####[facility] Qkluksoqpy[address] [place], [place] [address]Dr.Lawrence Wayne Monocytes/100 WBC (Bld)11.0 %Normal1.7-12.0The [facility] HospitalComment on above:Performed By: #### CBC ####[facility] Taoypcqbag[address] [place], [place] [address]Dr.Lawrence WayneNEUT #4.2 103/ulNormal1.4-6.5The [facility] HospitalComment on above:Performed By: #### CBC ####[facility] Ijntcmecgi[address] [place], [place] [address]Dr.Laraantonio WayneNeutrophils/100 WBC (Bld)60.6 %Vnmnyi90.0-75.0The [facility] HospitalComment on above:Performed By: #### CBC ####[facility] Sguckmhuyq[address] [place], [place] [address]Dr.Laraantonio WaynePlatelet mean volume (Bld) [Entitic vol]9.2 fLCritically low 9.5-13.5The [facility] HospitalComment on above:Performed By: #### CBC ####[facility] Ztaphynbuw[address] [place], [place] [address]Dr. Lawrence TguiyHYZ786 103/wwHnbigt832-184Pvc [facility] HospitalComment on above: Performed By: #### CBC ####[facility] Boxxxzcwec[address] [place], [place] [address]Dr.Lawrence WayneRBC4.86 106/ulNormal4.20-5.40The [facility] HospitalComment on above:Performed By: #### CBC ####[facility] [address] [address]Dr.Yilan WayneWBC7.0 103/ul Normal4.0-11.0The [facility] HospitalComment on above:Performed By: #### CBC ####[facility] [address] [address]Dr. Lawrence Pinzon 05-96-1351Awyp [Mass/Vol]89.0 ug/qZIeuown49.0-170.0The [facility] HospitalComment on above:Performed By: #### ALIYAH, CMP, LIPA #### [facility] [address] [place] [address] Dr. Lawrence Lion 14(COMP METB)on 32-11-5880Ogpadth [Mass/Vol]4.0 g/dLNormal 3.4-5.0The [facility] HospitalComment on above:Performed By: #### ALIYAH, CMP, LIPA #### [facility] [address] [place] [address] Dr. Lawrence WayneAlbumin/Globulin [Mass ratio]1.1 {ratio}NormalThe [facility] on above:Performed By: #### ALIYAH, CMP, LIPA #### [facility] [address] [place] [address] Dr. Lawrence Arguello [Catalytic activity/Vol]98 U/LKbkjqj44-434Wdp [facility] on above:Performed By: #### ALIYAH, CMP, LIPA #### [facility] [address] [address] [address] Lawrence Gomez [Catalytic activity/Vol]23 U/EDvmsgm56-82Hyv [facility] on above:Performed By: #### ALIYAH, CMP, LIPA #### [facility] [address] [place] [address] Dr. Lawrence Cid gap [Moles/Vol]4.9 mmol/LNormalThe [facility] HospitalComment on above:Performed By: #### ALIYAH, CMP, LIPA #### [facility] [address] [address] [address] Lawrence WayneAST [Catalytic activity/Vol]19 U/VCzlkcv32-14Llx [facility] HospitalComment on above:Performed By: #### ALIYAH, CMP, LIPA #### [facility] [address] [place] [address] Dr. Lawrence WayneBilirubin [Mass/Vol]0.4 mg/dLNormal0.2-1.0The [facility] Comment on above:Performed By: #### ALIYAH, CMP, LIPA #### [facility] [address] [place] [address] Dr. Lawrence WayneCalcium [Mass/Vol]9.5 mg/dLNormal8.5-10.1The [facility] Comment on above:Performed By: #### ALIYAH, CMP, LIPA #### [facility] [address] [place] [address] Dr. Lawrence WayneChloride [Moles/Vol]102 mmol/LTpodqt17-171Cze [facility] Comment on above:Performed By: #### ALIYAH, CMP, LIPA #### [facility] [address] [place] [address] Dr. Lawrence WayneCO2 [Moles/Vol]30.1 mmol/DMtycga29.0-32.0[facility] Comment on above:Performed By: #### ALIYAH, CMP, LIPA #### [facility] [address] [place] [address] Dr. Lawrence WayneCreatinine [Mass/Vol]0.99 mg/dLNormal0.55-1.02The [facility] HospitalComment on above:Performed By: #### ALIYAH, CMP, LIPA #### [facility] [address] [place] [address] Dr. Lawrence Guevara-AF CENTRAL AFRICAN>60Normal>=60The [facility] HospitalComment on above:Performed By: #### ALIYAH, CMP, LIPA #### [facility] [address] [place] [address] Dr. Yilan ChangEGFR-NON AF JSBCFZMW98 mL/min/1.31s3Sjcchohqek low>=60The [facility] HospitalComment on above:Performed By: #### ALIYAH, CMP, LIPA #### [facility] [address] [address] [address] Lawrence WayneGlobulin (S) [Mass/Vol]3.5 g/dLNormPremier Health Miami Valley Hospital NorthComment on above:Performed By: #### ALIYAH, CMP, LIPA #### [facility] [address] [address] [address] Lawrence WayneGlucose [Mass/Vol]100 mg/oPJdxnqt58-957Itv [facility] Comment on above:Performed By: #### ALIYAH, CMP, LIPA #### [facility] [address] [place] [address] Dr. Lawrence WaynePotassium [Moles/Vol]4.0 mmol/LNormal3.5-5.1The [facility] Comment on above:Performed By: #### ALIYAH, CMP, LIPA #### [facility] [address] [place] [address] Dr. Lawrence WayneProtein [Mass/Vol]7.5 g/dLNormal6.4-8.2The [facility] Comment on above:Performed By: #### ALIYAH, CMP, LIPA #### [facility] [address] [address] [address] Lawrence WayneSodium [Moles/Vol]133 mmol/LCritically mfu441-941Tph [facility] HospitalComment on above:Performed By: #### ALIYAH, CMP, LIPA #### [facility] [address] [place] [address] Dr. Lawrence WayneUrea nitrogen [Mass/Vol]14.0 mg/dLNormal7.0-18.0The [facility] HospitalComment on above:Performed By: #### ALIYAH, CMP, LIPA #### [facility] [address] [place] [address] Dr. Lawrence WayneUrea nitrogen/Creatinine [Mass ratio]14.1 mg/mgNormalThe [facility] HospitalComment on above:Performed By: #### ALIYAH, CMP, LIPA #### [facility] [address] [address] [address] Lawrence Moran 35-15-2798AIR9.273 uIU/mLNormal0.358-3.740The [facility] Hospitalment on above:Performed By: #### ALIYAH, CMP, LIPA #### [facility] [address] [address] [address] Lawrence RodgersONIAalex 99-19-1527Vpfeawf (P) [Mass/Vol]ug/dLCritically low 11-32The [facility] HospitalComgarden city hospital on above:Performed By: #### AMM ####[facility] Pmmswfompg[address] [place], [place] [address]Dr.Yilan Wayne AMYLASEon 33-12-6973Pvvrzen [Catalytic activity/Vol]88 U/LKdlltl96-445Rbx [facility] on above:Performed By: #### ALIYAH, CMP, LIPA #### [facility] [address] [place] [address] Dr. Lawrence Sharma 85-38-6121Mjelxmlybil peptide B (Bld) [Mass/Vol]236.0 pg/mL Normal<=900.0The [facility] on above:Performed By: #### ALIYAH, CMP, LIPA #### [facility] [address] [place] [address] Dr. Lawrence Duval AUTO DIFFon 33-69-1759BFCA #0.0 103/ulNormal0.0-0.1The [facility] on above:Performed By: #### CBC ####[facility] [address] [address]Dr.Yilan WayneBasophils/100 WBC (Bld)0.7 %Normal0.2-2.0The [facility] on above:Performed By: #### CBC ####[facility] [address] [address] ChangEO #0.1 103/ulNormal0.0-0.7The [facility] HospitalComment on above:Performed By: #### CBC ####[facility] Bjgcpryqfm[address] [place], [place] [address]Dr.Lawrence ChangEosinophils/100 WBC (Bld)1.3 %Normal 0.9-7.0The [facility] HospitalComment on above:Performed By: #### CBC ####[facility] [address]qefplyh[address] [place], [place] [address]Dr.Lawrence Wayne Erythrocyte distribution width (RBC) [Ratio]12.7 %Blucvw58.0-15.0The [facility] HospitalComment on above:Performed By: #### CBC ####[facility] Pympjyxoms[address] [place], [place] [address]Dr.Lawrence ChangHematocrit (Bld) [Volume fraction]38.7 %Pithuz23.0-48.0The [facility] HospitalComment on above:Performed By: #### CBC ####[facility] [address]vpqhtxyw[address] [place], [place] [address]Dr.Lawernce ChangHemoglobin (Bld) [Mass/Vol]12.4 g/dL Ovsfot32.0-16.0The [facility] HospitalComment on above:Result Comment: RECEIVING BOLUS AND SALINEPerformed By: #### CBC ####[facility] Xdgmykeufz[address] [place], [place] [address]Dr.Lawrence WayneIG #0.01 10e3/ulNormal0.00-0.03The [facility] HospitalComment on above:Performed By: #### CBC ####[facility] Ybulrqzwwi[address] [place], [place] [address]Dr.Lawrence WayneIG %0.2 %Normal 0.0-0.5The [facility] HospitalComment on above:Performed By: #### CBC ####[facility] Iydaieuftb[address] [place], [place] [address]Dr.Lawrence WayneLYMPH #1.9 103/ulNormal1.2-3.8The [facility] HospitalComment on above:Performed By: #### CBC ####[facility] [address]jfparzdy[address] [place], [place] [address]Dr.Lawrence WayneLymphocytes/100 WBC (Bld)35.0 %Roofsq56.5-60.0The [facility] HospitalComment on above:Performed By: #### CBC ####[facility] [address]fpkxcbwg[address] [place], [place] [address]Dr.Lawrence WayneMANUAL DIFF REQ NONormalThe [facility] HospitalComment on above:Performed By: #### CBC ####[facility] Ukcqntlgvk[address] [place], [place] [address]Dr. Lawrence WayneH (RBC) [Entitic mass]30.2 tsWrlywl41.7-34.0The [facility] Comment on above:Performed By: #### CBC ####[facility] [address]vyihchc[address] [place], [place] [address]Dr.Lawrence WayneHC (RBC) [Mass/Vol]32.0 g/dL Isotpi09.9-35.2The [facility] HospitalComment on above:Performed By: #### CBC ####[facility] Ievntsxkxp[address] [place], [place] [address]Dr. Lawrence WayneV (RBC) [Entitic vol]94.2 bKSxspxb78.0-99.0The [facility] Comment on above:Performed By: #### CBC ####[facility] Kcqphutcpl[address] [place], [place] [address]Dr.Lawrence WayneMONO #0.6 103/ulNormal0.3-0.8 The [facility] HospitalComment on above:Performed By: #### CBC ####[facility] Zozduztllf[address] [place], [place] [address]Dr.Lawrence Wayne Monocytes/100 WBC (Bld)10.7 %Normal1.7-12.0The [facility] HospitalComment on above:Performed By: #### CBC ####[facility] Ivnoxuevhw[address] [place], [place] [address]Dr.Lawrence WayneNEUT #2.9 103/ulNormal1.4-6.5The [facility] HospitalComment on above:Performed By: #### CBC ####[facility] [address] [address]Dr.Lawrence WayneNeutrophils/100 WBC (Bld)52.1 %Kaybab73.0-75.0The [facility] HospitalComment on above:Performed By: #### CBC ####[facility] [address] [address]Dr.Lawrence WaynePlatelet mean volume (Bld) [Entitic vol]9.5 fLNormal9.5-13.5 The [facility] HospitalComment on above:Performed By: #### CBC ####[facility] [address] [address]Dr.Lawrence WaynePLT260 103/bcJotdwf612-765Tcq [facility] HospitalComment on above:Performed By: #### CBC ####[facility] Emiwczbccf[address] [place], [place] [address]Dr. Lawrence WayneRBC4.11 106/ulCritically low4.20-5.40The [facility] Hospitalment on above:Performed By: #### CBC ####[facility] [address] [address]Dr.Lawrence WayneWBC5.5 103/ulNormal4.0-11.0The [facility] HospitalComment on above:Performed By: #### CBC ####[facility] Rvnbxnkmkn[address] [place], [place] [address]Dr.Lawrence WaynePROF 14(COMP METB)on 37-32-0199Pacnsou [Mass/Vol]3.0 g/dLCritically low3.4-5.0The [facility] on above:Performed By: #### ALIYAH, CMP, LIPA #### [facility] [address] [address] [address] Lawrence WayneAlbumin/Globulin [Mass ratio]1.1 {ratio}NormalThe [facility] on above:Performed By: #### ALIYAH, CMP, LIPA #### [facility] [address] [place] [address] Dr. Lawrence AlemanP [Catalytic activity/Vol]77 U/DClummg57-218Ycr [facility] HospitalComment on above:Performed By: #### ALIYAH, CMP, LIPA #### [facility] [address] [address] [address] Lawrence Gomez [Catalytic activity/Vol]21 U/QLbpxxs89-41Cfi [facility] HospitalComment on above:Performed By: #### ALIYAH, CMP, LIPA #### [facility] [address] [address] [address] Lawrence Kiddon gap [Moles/Vol]10.9 mmol/LNormalThe [facility] Comment on above:Performed By: #### ALIYAH, CMP, LIPA #### [facility] [address] [place] [address] Dr. Lawrence Pacheco [Catalytic activity/Vol]15 U/NKxxihl42-53Cwa [facility] HospitalComment on above:Performed By: #### ALIYAH, CMP, LIPA #### [facility] [address] [place] [address] Dr. Lawrence WayneBilirubin [Mass/Vol]0.3 mg/dLNormal0.2-1.0[facility] Comment on above:Performed By: #### ALIYAH, CMP, LIPA #### [facility] [address] [place] [address] Dr. Lawrence WayneCalcium [Mass/Vol]8.4 mg/dLCritically low8.5-10.1[facility] CenterComment on above:Performed By: #### ALIYAH, CMP, LIPA #### [facility] [address] [place] [address] Dr. Lawrence WayneChloride [Moles/Vol]110 mmol/LCritically jwkf54-636Iuy [facility] HospitalComment on above:Performed By: #### ALIYAH, CMP, LIPA #### [facility] [address] [place] [address] Dr. Lawrence WayneCO2 [Moles/Vol]25.0 mmol/JQdujdz85.0-32.0[facility] Comment on above:Performed By: #### ALIYAH, CMP, LIPA #### [facility] [address] [place] [address] Dr. Lawrence WayneCreatinine [Mass/Vol]0.87 mg/dLNormal0.55-1.02The [facility] HospitalComment on above:Performed By: #### ALIYAH, CMP, LIPA #### [facility] [address] [address] [address] Lawrence ThomasGFR-AF CENTRAL AFRICAN>60Normal>=60The [facility] HospitalComment on above:Performed By: #### ALIYAH, CMP, LIPA #### [facility] [address] [address] [address] Lawrence ThomasGFR-NON AF CENTRAL AFRICAN>60Normal>=60The [facility] HospitalComment on above:Performed By: #### ALIYAH, CMP, LIPA #### [facility] [address] [place] [address] Dr. Lawrence aWyneGlobulin (S) [Mass/Vol]2.8 g/dLNormalThe [facility] HospitalComment on above:Performed By: #### ALIYAH, CMP, LIPA #### [facility] [address] [address] [address] Lawrence WayneGlucose [Mass/Vol]96 mg/yKHmjhmy37-959LnsMercy Health [facility] Comment on above:Performed By: #### ALIYAH, CMP, LIPA #### [facility] [address] [address] [address] Lawrence WaynePotassium [Moles/Vol]3.9 mmol/LNormal3.5-5.1The [facility] Comment on above:Performed By: #### ALIYAH, CMP, LIPA #### [facility] [address] [address] [address] Lawrence WayneProtein [Mass/Vol]5.8 g/dLCritically low6.4-8.2The [facility] HospitalComment on above:Performed By: #### ALIYAH, CMP, LIPA #### [facility] [address] [address] [address] Lawrence WayneSodium [Moles/Vol]142 mmol/OYiyudx685-869Ywe [facility] Comment on above:Performed By: #### ALIYAH, CMP, LIPA #### [facility] [address] [address] [address] Lawrence Faulkner nitrogen [Mass/Vol]11.0 mg/dLNormal7.0-18.0The [facility] HospitalComment on above:Performed By: #### ALIYAH, CMP, LIPA #### [facility] [address] [address] [address] Lawrence WayneUrea nitrogen/Creatinine [Mass ratio]12.6 mg/mgNormalThe [facility] HospitalComment on above:Performed By: #### ALIYAH, CMP, LIPA #### [facility] [address] [place] [address] Dr. Lawrence RodgersONIAalex [id number] (P) [Moles/Vol]44 umol/LCritically pvep26-57Vbr [facility] HospitalComment on above:Performed By: #### ALIYAH, CMP, LIPA #### [facility] [address] [place] [address] Dr. Lawrence WayneAMYLASEon 71-72-9010Uexthhu [Catalytic activity/Vol]89 U/LNormal 25-115The [facility] Hospitalment on above:Performed By: #### MG, CMP, CMADM, BNP, ALIYAH, LIPA #### [facility] [address] [place] [address] Dr. Lawrence Sharma 70-56-4794Brdhzkwyres peptide B (Bld) [Mass/Vol]103.0 pg/mL Normal<=900.0The [facility] HospitalComment on above:Performed By: #### MG, CMP, CMADM, BNP, ALIYAH, LIPA ####[facility] [address] [address]Dr. Lawrence WayneCARDIAC ORAL ADMITon [id number] [Catalytic activity/Vol]65 U/GLjxlou99-449Pyz [facility] HospitalComment on above: Performed By: #### MG, CMP, CMADM, BNP, ALIYAH, LIPA #### [facility] [address] [place] [address] Dr. Lawrence Glass.MB [Mass/Vol]1.16 ng/mLNormal<=3.60The [facility] Comment on above:Performed By: #### MG, CMP, CMADM, BNP, ALIYAH, LIPA #### [facility] [address] [address] [address] Lawrence BetancourtTROP<4.6Mabmvo0.0-51.3The [facility] HospitalComment on above: Result Comment: CUT-OFF POINTS HAVE BEEN ESTABLISHED BASED ON THE FOURTH UNIVERSAL DEFINITIONS OF MYOCARDIAL INFARCTION. THE UPPER REFERENCE LIMIT (URL) OF TROPONIN, DEFINED THE 99TH PERCENTILE OF cTnI DISTRIBUTION IN A REFERENCE POPULATION, HAS BEEN CONFIRMED THE DECISION THRESHOLD FOR OR DIAGNOSIS.Performed By: #### MG, CMP, CMADM, BNP, ALIYAH, LIPA #### [facility] [address] [address] [address] Lawrence NovoaO47 ng/mLNormal9-82The [facility] HospitalComment on above: Performed By: #### MG, CMP, CMADM, BNP, ALIYAH, LIPA #### [facility] [address] [address] [address] Lawrence Duval AUTO DIFFon [id number] #0.1 103/ulNormal0.0-0.1The [facility] HospitalComment on above:Performed By: #### CBC ####[facility] [address] [address]DrJesus WayneBasophils/100 WBC (Bld)0.7 %Normal0.2-2.0The [facility] HospitalComment on above:Performed By: #### CBC ####[facility] [address] [address]DrJesus ChangEO #0.1 103/ulNormal0.0-0.7The [facility] HospitalComment on above:Performed By: #### CBC ####[facility] [address] [address]DrJesus ChangEosinophils/100 WBC (Bld)1.1 %Normal 0.9-7.0The [facility] HospitalComment on above:Performed By: #### CBC ####[facility] [address] [address]Dr.Lawrence Wayne Erythrocyte distribution width (RBC) [Ratio]12.6 %Fnxsnz87.0-15.0The [facility] HospitalComment on above:Performed By: #### CBC ####[facility] Bdsoyias[address] [place], [place] [address]Dr.Lawrence WayneHematocrit (Bld) [Volume fraction]44.3 %Kzruzr47.0-48.0The [facility] HospitalComment on above:Performed By: #### CBC ####[facility] Onjxxilecx[address] [place], [place] [address]Dr.Laraantonio WayneHemoglobin (Bld) [Mass/Vol]14.4 g/dL Lrgfhi66.0-16.0The [facility] HospitalComment on above:Performed By: #### CBC ####[facility] Roypov[address] [place], [place] [address]Dr. Laraantonio WayneIG #0.01 10e3/ulNormal0.00-0.03The [facility] HospitalComment on above: Performed By: #### CBC ####[facility] Piwddyxijz[address] [place], [place] [address]Dr.Lawrence WayneIG %0.1 %Normal0.0-0.5The [facility] HospitalComment on above:Performed By: #### CBC ####[facility] Qnuutu[address] [place], [place] [address]Dr.Lawrence WayneLYMPH #2.1 103/ulNormal1.2-3.8The [facility] HospitalComment on above:Performed By: #### CBC ####[facility] Ldkfgcytqu[address] [place], [place] [address]Dr. Laraantonio WayneLymphocytes/100 WBC (Bld)29.6 %Zvuaph17.5-60.0The [facility] Comment on above:Performed By: #### CBC ####[facility] Uwekbsnift[address] [place], [place] [address]Dr.Lawrence WayneMANUAL DIFF REQNONormalThe [facility] HospitalComment on above:Performed By: #### CBC ####[facility] T[address]kcqkra[address] [place], [place] [address]Dr.Lawrence WayneNEWYORK[facility] (RBC) [Entitic mass]30.4 ucDxhier74.7-34.0The [facility] HospitalComment on above: Performed By: #### CBC ####[facility] Djwkrtkslp[address] [place], [place] [address]Dr.Lawrence WayneNOR[facility]WELL [facility] (RBC) [Mass/Vol]32.5 g/dLNormal 29.9-35.2The [facility] HospitalComment on above:Performed By: #### CBC ####[facility] Ysyjjxmivj[address] [place], [place] [address]Dr. Laraantonio ToneMER[facility] [place] ([place]BC) [Entitic vol]93.7 vFAacrhp67.0-99.0The [facility] Comment on above:Performed By: #### CBC ####[facility] Wifqgbry[address] [place], [place] [address]DrKimLaraantonio WayneMONO #0.8 103/ulNormal0.3-0.8 The [facility] HospitalComment on above:Performed By: #### CBC ####[facility] Glznaxtzil[address] [place], [place] [address]DrKimLaraantonio Wayne Monocytes/100 WBC (Bld)10.6 %Normal1.7-12.0The [facility] HospitalComment on above:Performed By: #### CBC ####[facility] Kyhhcoqcym[address] [place], [place] [address]DrKimLawrence ToneNEUT #4.1 103/ulNormal1.4-6.5The [facility] HospitalComment on above:Performed By: #### CBC ####[facility] Vafnvxivbm[address] [place], [place] [address]DrKimLaraantonio WayneNeutrophils/100 WBC (Bld)57.9 %Mlcfxu32.0-75.0The [facility] HospitalComment on above:Performed By: #### CBC ####[facility] Yuvxcddumk[address] [place], [place] [address]DrJesus WaynePlatelet mean volume (Bld) [Entitic vol]9.3 fLCritically low 9.5-13.5The [facility] HospitalComment on above:Performed By: #### CBC ####[facility] [address] [address]Dr. Lawrence WkbhaIXL336 103/qdRlqjwb688-334Hkq [facility] HospitalComment on above: Performed By: #### CBC ####[facility] Uuyoxlexzl[address] [place], [place] [address]Dr.Lawrence ChangRBC4.73 106/ulNormal4.20-5.40The [facility] HospitalComment on above:Performed By: #### CBC ####[facility] Odttxkxees[address] [place], [place] [address]Dr.Lawrence WayneWBC7.1 103/ul Normal4.0-11.0The [facility] HospitalComment on above:Performed By: #### CBC ####[facility] I[address]ucllgsff[address] [place], [place] [address]Dr. Lawrence ChangCULTURE BLOODon 95-85-5504Wlstjnsyuni examination of blood, culture Culture Observations: NO GROWTH AT 5 DAYS.NormalThe [facility] HospitalComment on above:Performed By: #### BLDCX2 ####[facility] Ettogdbpqm[address] [place], [place] [address]Dr. Lawrence ChangMicroscopic examination of blood, cultureCulture Observations: NO GROWTH AT 5 DAYS.NormalThe [facility] HospitalComment on above:Performed By: #### BLDCX1 ####[facility] I[address] [place], [place] [address]Dr. Lawrence WayneCULTURE URINEon 44-72-0297QQMODZR URINECulture Observations: NO GROWTH.NormalThe [facility] HospitalComment on above:Performed By: #### URCX ####[facility] Diychhiiik[address] [place], [place] [address]Dr. Lawrence WayneCovid-19 PCR (CVDTBH)on 26-95-1712LTML-CoV-2 (COVID-19) RNA EVELIA+probe Ql (Unsp spec)Not detectedNormalNOT DETECTEDThe [facility] Hospitalment on above:Result Comment: When diagnostic testing is negative, the [...] for this test is supported by the Custom Applicator of Health and Human Service's declaration that circumstances exist to justify the emergency use of in vitro diagnostics for the detection and/or diagnosis of the virus that causes COVID-19. This EUA will remain in effect for the duration of the COVID-19 declaration justifying emergency of IVDs, unless it is terminated or revoked by the FDA (after which the test may no longer be used).Performed By: #### CVDTBH ####[facility] [address] [address]Dr. Lawrence WayneLACTATE/LACTIC ACIDon 53-92-0986Xlkfjdz [Moles/Vol]1.1 mmol/LNormal0.4-1.9The [facility] on above:Performed By: #### ALIYAH, CMP, LIPA #### [facility] [address] [place] [address] Dr. Lawrence WayneLIPASEon 58-35-0594Ipqmpx [Catalytic activity/Vol]107.0 U/LNormal 73.0-393.0The [facility] Hospitalment on above:Performed By: #### MG, CMP, CMADM, BNP, ALIYAH, LIPA #### [facility] [address] [place] [address] Dr. Lawrence WayneMAGNESIUMon 20-54-6115Jhbiltzvx [Mass/Vol]2.3 mg/dLNormal1.8-2.4 The [facility] on above:Performed By: #### MG, CMP, CMADM, BNP, ALIYAH, LIPA ####[facility] [address] [address]Dr. Lawrence ChenF 14(COMP METB)on 31-27-5975Flcqcsy [Mass/Vol]3.8 g/dL Normal3.4-5.0The [facility] HospitalComment on above:Performed By: #### MG, CMP, CMADM, BNP, ALIYAH, LIPA #### [facility] [address] [place] [address] Dr. Lawrence WayneAlbumin/Globulin [Mass ratio]1.1 {ratio}NormalThe [facility] HospitalComment on above:Performed By: #### MG, CMP, CMADM, BNP, ALIYAH, LIPA #### [facility] [address] [place] [address] Dr. Lawrence Arguello [Catalytic activity/Vol]98 U/EGragne19-841Eln [facility] HospitalComment on above:Performed By: #### MG, CMP, CMADM, BNP, ALIYAH, LIPA #### [facility] [address] [place] [address] Dr. Lawrence Gomez [Catalytic activity/Vol]26 U/TAovbbm78-16Juh [facility] HospitalComment on above:Performed By: #### MG, CMP, CMADM, BNP, ALIYAH, LIPA #### [facility] [address] [place] [address] Dr. Lawrence Cid gap [Moles/Vol]12.9 mmol/LNormalThe [facility] Comment on above:Performed By: #### MG, CMP, CMADM, BNP, ALIYAH, LIPA #### [facility] [address] [place] [address] Dr. Lawrence Pacheco [Catalytic activity/Vol]25 U/KQdeiad93-17Tku [facility] HospitalComment on above:Performed By: #### MG, CMP, CMADM, BNP, ALIYAH, LIPA #### [facility] [address] [place] [address] Dr. Lawrence Lanierirubin [Mass/Vol]0.3 mg/dLNormal0.2-1.0The [facility] Comment on above:Performed By: #### MG, CMP, CMADM, BNP, ALIYAH, LIPA #### [facility] [address] [place] [address] Dr. Lawrence WayneCalcium [Mass/Vol]9.1 mg/dLNormal8.5-10.1The [facility] Comment on above:Performed By: #### MG, CMP, CMADM, BNP, ALIYAH, LIPA #### [facility] [address] [place] [address] Dr. Lawrence WayneChloride [Moles/Vol]105 mmol/SDzkljn24-477Xva [facility] Comment on above:Performed By: #### MG, CMP, CMADM, BNP, ALIYAH, LIPA #### [facility] [address] [place] [address] Dr. Lawrence WayneCO2 [Moles/Vol]24.0 mmol/RAjumrc53.0-32.0The [facility] Comment on above:Performed By: #### MG, CMP, CMADM, BNP, ALIYAH, LIPA #### [facility] [address] [place] [address] Dr. Lawrence WayneCreatinine [Mass/Vol]0.90 mg/dLNormal0.55-1.02The [facility] HospitalComment on above:Performed By: #### MG, CMP, CMADM, BNP, ALIYAH, LIPA #### [facility] [address] [place] [address] Dr. Lawrence ThomasGFR-AF CENTRAL AFRICAN>60Normal>=60The [facility] HospitalComment on above:Performed By: #### MG, CMP, CMADM, BNP, ALIYAH, LIPA #### [facility] [address] [place] [address] Dr. Lawrence ThomasGFR-NON AF CENTRAL AFRICAN>60Normal>=60The [facility] HospitalComment on above:Performed By: #### MG, CMP, CMADM, BNP, ALIYAH, LIPA #### [facility] [address] [place] [address] Dr. Lawrence WayneGlobulin (S) [Mass/Vol]3.5 g/dLNormalThe [facility] HospitalComment on above:Performed By: #### MG, CMP, CMADM, BNP, ALIYAH, LIPA #### [facility] [address] [address] [address] Lawrence WayneGlucose [Mass/Vol]95 mg/yUGtdhfp12-521Tmr [facility] Comment on above:Performed By: #### MG, CMP, CMADM, BNP, ALIYAH, LIPA #### [facility] [address] [address] [address] Lawrence WaynePotassium [Moles/Vol]3.9 mmol/LNormal3.5-5.1The [facility] Comment on above:Performed By: #### MG, CMP, CMADM, BNP, ALIYAH, LIPA #### [facility] [address] [address] [address] Lawrence WayneProtein [Mass/Vol]7.3 g/dLNormal6.4-8.2The [facility] Comment on above:Performed By: #### MG, CMP, CMADM, BNP, ALIYAH, LIPA #### [facility] [address] [address] [address] Lawrence Russelldium [Moles/Vol]138 mmol/FPfqqgb159-332Esr [facility] Comment on above:Performed By: #### MG, CMP, CMADM, BNP, ALIYAH, LIPA #### [facility] [address] [place] [address] Dr. Lawrence WayneUrea nitrogen [Mass/Vol]12.0 mg/dLNormal7.0-18.0The [facility] HospitalComment on above:Performed By: #### MG, CMP, CMADM, BNP, ALIYAH, LIPA #### [facility] [address] [place] [address] Dr. Lawrence WayneUrea nitrogen/Creatinine [Mass ratio]13.3 mg/mgNormalThe [facility] HospitalComment on above:Performed By: #### MG, CMP, CMADM, BNP, ALIYAH, LIPA #### [facility] [address] [place] [address] Dr. Lawrence WayneUA RANDOM W/MICROSCOPICon [id number] SEENNormalNONE SEENMercy Health Springfield Regional Medical CenterComment on above:Performed By: #### ALIYAH, CMP, LIPA #### [facility] [address] [address] [address] Lawrence WayneBilirubin Ql (U)NegativeNormalNEGATIVEMercy Health [facility] Regional [facility] Center Comment on above:Performed By: #### ALIYAH, CMP, LIPA #### [facility] [address] [address] [address] Lawrence WayneCASTNONE SEENNormalNONE SEENMercy Health Springfield Regional Medical CenterComgarden city hospital on above:Performed By: #### ALIYAH, CMP, LIPA #### [facility] [address] [address] [address] Lawrence WayneClarity (U)CLEARNormalCLEARMercy Health [facility] Regional Medical CenterComment on above: Performed By: #### ALIYAH, CMP, LIPA #### [facility] [address] [address] [address] Lawrence Viveros (U)LT. YELLOWNormalYMarietta Memorial HospitalComment on above:Performed By: #### ALIYAH, CMP, LIPA #### [facility] [address] [address] [address] Lawrence WayneCrystals LM Nom (Urine sed)NONE SEENNormalNONE SEENMercy Health Springfield Regional Medical CenterComment on above:Performed By: #### ALIYAH, CMP, LIPA #### [facility] [address] [address] [address] Bravo ChangEpithelial cells LM Ql (Urine sed)FEWAbnormalNONE SEEN /RAREThe [facility] HospitalComgarden city hospital on above:Performed By: #### ALIYAH, CMP, LIPA #### [facility] [address] [address] [address] Lawrence WayneGlucose Ql (U)NegativeNormalNEGATIVEMercy Health Springfield Regional Medical CenterComgarden city hospital on above:Performed By: #### ALIYAH, CMP, LIPA #### [facility] [address] [address] [address] Lawrence WayneHemoglobin Ql (U)NegativeNormalNEGAultman Orrville Hospital Comment on above:Performed By: #### ALIYAH, CMP, LIPA #### [facility] [address] [address] [address] Lawrence Anthony Ql (U)NegativeNormalNEGATIVEThe [facility] HospitalComment on above:Performed By: #### ALIYAH, CMP, LIPA #### [facility] [address] [address] [address] Lawrence KapadiaOCYTESSMALLAbnormalNEGATIVEThe [facility] HospitalComment on above:Performed By: #### ALIYAH, CMP, LIPA #### [facility] [address] [address] [address] Lawrence GarridoCOUSSHEEBA SEENNormalNONE SEENMercy Health Springfield Regional Medical CenterComment on above:Performed By: #### ALIYAH, CMP, LIPA #### [facility] [address] [address] [address] Lawrence Reis Ql (U)NegativeNormalNEGATIVEThe [facility] HospitalComment on above:Performed By: #### ALIYAH, CMP, LIPA #### [facility] [address] [address] [address] Lawrence WaynepH (U)6.0 [pH]Normal5-9The [facility] HospitalComment on above: Performed By: #### ALIYAH, CMP, LIPA #### [facility] [address] [address] [address] Lawrence RodriguezCNMOLLY SEENAbnormal0-2The [facility] HospitalComment on above: Performed By: #### ALIYAH, CMP, LIPA #### [facility] [address] [address] [address] Lawrence WayneSPEC GRAVITY<=1.096Cnguclvk0.005-<=1.025The [facility] Comment on above:Performed By: #### ALIYAH, CMP, LIPA #### [facility] [address] [address] [address] Lawrence WayneUA PROTEINNegativeNormalNEGATIVE/ TRACEThe [facility] Comment on above:Performed By: #### ALIYAH, CMP, LIPA #### [facility] [address] [address] [address] Lawrence Miles Qn (U)0.2 {Antonina'U}/dLNormal0.2 - 1.0The [facility] on above:Performed By: #### ALIYAH, CMP, LIPA #### [facility] [address] [address] [address] Lawrence WayneWBC0-2AbnormalNONE SEENThe [facility] HospitalComment on above: Performed By: #### ALIYAH, CMP, LIPA #### [facility] [address] [address] [address] Lawrence WayneYEASTPRESENTAbnormalNONE SEENThe [facility] HospitalComgarden city hospital on above:Performed By: #### ALIYAH, CMP, LIPA #### [facility] [address] [address] [address] Lawrence WayneXR ABD FLAT UP_PA Sebastian [id number] ABD FLAT UP_PA CHEXAMINATION: XR ABD FLAT UP_PA CH HISTORY: NAUSEA [...] Electronically authenticated by: TYRELL MOREJON Date: 2022-02-06 16:[facility]A [facility] WO W CONon [id number] CHEST WO W CONEXAMINATION: CTA CHEST WO W CON HISTORY: Chest [...] Electronically authenticated by: MARK RASHEED Date: 2021-08-29 12:20[facility]imaXR A[facility] FLAT_UPon [id number] ABD FLAT_UPEXAM: CHEST 2 VIEWS, ABDOMEN UPRIGHT HISTORY: Chest [...] Electronically authenticated by: ENEDELIA FOLEY Date: 2021-08-27 16:08[facility] LimaBNPon [id number] peptide B (Bld) [Mass/Vol]51.0 pg/mLNormal<=900.0The [facility] HospitalComment on above:Performed By: #### ALIYAH, CMP, LIPA #### [facility] [address] [place] [address] Dr. Lawrence WayneTH[facility] AUTO DIFFon [id number] #0.0 103/ulNormal0.0-0.1The [facility] HospitalComment on above:Performed By: #### ALIYAH, CMP, LIPA #### [facility] [address] [place] [address] Dr. Lawrence WayneBasophils/100 WBC (Bld)0.2 %Normal0.2-2.0The [facility] Comment on above:Performed By: #### ALIYAH, CMP, LIPA #### [facility] [address] [place] [address] Dr. Lawrence Craig #0.0 103/ulNormal0.0-0.7The [facility] Hospitalment on above: Performed By: #### ALIYAH, CMP, LIPA #### [facility] [address] [place] [address] Dr. Lawrence Thomasosinophils/100 WBC (Bld)0.1 %Critically low0.9-7.0The [facility] HospitalComment on above:Performed By: #### ALIYAH, CMP, LIPA #### [facility] [address] [place] [address] Dr. Lawrence Thomasrythrocyte distribution width (RBC) [Ratio]13.3 %Biwzre45.0-15.0 The [facility] Hospitalment on above:Performed By: #### ALIYAH, CMP, LIPA #### [facility] [address] [place] [address] Dr. Lawrence WayneHematocrit (Bld) [Volume fraction]45.7 %Ugbost93.0-48.0The [facility] HospitalComment on above:Performed By: #### ALIYAH, CMP, LIPA #### [facility] [address] [place] [address] Dr. Lawrence WayneHemoglobin (Bld) [Mass/Vol]15.3 g/oWTxaljz75.0-16.0The [facility] Hospitalment on above:Performed By: #### ALIYAH, CMP, LIPA #### [facility] [address] [place] [address] Dr. Lawrence Rebolledo #0.12 10e3/ulCritically high0.00-0.03The [facility] Comment on above:Performed By: #### ALIYAH, CMP, LIPA #### [facility] [address] [place] [address] Dr. Lawrence WayneIG %0.9 %Critically high0.0-0.5The [facility] HospitalComment on above:Performed By: #### ALIYAH, CMP, LIPA #### [facility] [address] [place] [address] Dr. Lawrence Juarez #1.6 103/ulNormal1.2-3.8The [facility] HospitalComment on above:Performed By: #### ALIYAH, CMP, LIPA #### [facility] [address] [place] [address] Dr. Lawrence Mccallhocytes/100 WBC (Bld)11.9 %Critically low20.5-60.0The [facility] HospitalComment on above:Performed By: #### ALIYAH, CMP, LIPA #### [facility] [address] [place] [address] Dr. [facility]ordMEM[facility]IAL [facility] DIFF REQNONormalThe [facility] HospitalComment on above: Performed By: #### ALIYAH, CMP, LIPA #### [facility] [address] [place] [address] Dr. Lawrence Ivan (RBC) [Entitic mass]30.2 eaFambpc92.7-34.0The [facility] HospitalComment on above:Performed By: #### ALIYAH, CMP, LIPA #### [facility] [address] [place] [address] Dr. Lawrence Ivan (RBC) [Mass/Vol]33.5 g/jSXldjvy92.9-35.2The [facility] HospitalComment on above:Performed By: #### ALIYAH, CMP, LIPA #### [facility] [address] [place] [address] Dr. Lawrence Ivan (RBC) [Entitic vol]90.1 rWGcjsho09.0-99.0The [facility] HospitalComment on above:Performed By: #### ALIYAH, CMP, LIPA #### [facility] [address] [place] [address] Dr. Lawrence Lees #1.0 103/ulCritically high0.3-0.8The [facility] Comment on above:Performed By: #### ALIYAH, CMP, LIPA #### [facility] [address] [place] [address] Dr. Lawrence Wagnerocytes/100 WBC (Bld)7.2 %Normal1.7-12.0[facility] Comment on above:Performed By: #### ALIYAH, CMP, LIPA #### [facility] [address] [place] [address] Dr. Lawrence Hilliard #11.0 103/ulCritically high1.4-6.5The [facility] Comment on above:Performed By: #### ALIYAH, CMP, LIPA #### [facility] [address] [place] [address] Dr. Lawrence Mezautrophils/100 WBC (Bld)79.7 %Critically high43.0-75.0The [facility] HospitalComment on above:Performed By: #### ALIYAH, CMP, LIPA #### [facility] [address] [place] [address] Dr. Lawrence Polanco mean volume (Bld) [Entitic vol]9.1 fLCritically low 9.5-13.5ThOhioHealth Southeastern Medical CenterComment on above:Performed By: #### ALIYAH, CMP, LIPA #### [facility] [address] [place] [address] Dr. Lawrence WaynePLT434 103/rgVuvnug173-266Jcq [facility] HospitalComment on above: Performed By: #### ALIYAH, CMP, LIPA #### [facility] [address] [place] [address] Dr. Lawrence WayneRBC5.07 106/ulNormal4.20-5.40The [facility] HospitalComment on above:Performed By: #### ALIYAH, CMP, LIPA #### [facility] [address] [place] [address] Dr. Lawrence WayneWBC13.8 103/ulCritically high4.0-11.0The [facility] HospitalComment on above:Performed By: #### ALIYAH, CMP, LIPA #### [facility] [address] [address] [address] Lawrence Lion 14(COMP METB)on 70-12-9259Jklbfhh [Mass/Vol]3.9 g/dLNormal 3.5-5.0The [facility] HospitalComment on above:Performed By: #### ALIYAH, CMP, LIPA #### [facility] [address] [address] [address] Lawrence WayneAlbumin/Globulin [Mass ratio]1.0 {ratio}NormalThe [facility] HospitalComment on above:Performed By: #### ALIYAH, CMP, LIPA #### [facility] [address] [place] [address] Dr. Lawrence Arguello [Catalytic activity/Vol]104 U/SDngjrm61-442Uki [facility] HospitalComment on above:Performed By: #### ALIYAH, CMP, LIPA #### [facility] [address] [address] [address] Lawrence Gomez [Catalytic activity/Vol]20 U/LNormal9-52[facility] Comment on above:Performed By: #### ALIYAH, CMP, LIPA #### [facility] [address] [place] [address] Dr. Lawrence Cid gap [Moles/Vol]15.5 mmol/LNormalThe [facility] Comment on above:Performed By: #### ALIYAH, CMP, LIPA #### [facility] [address] [address] [address] Lawrence Pacheco [Catalytic activity/Vol]13 U/LCritically ltu96-17Yuk [facility] Hospitalment on above:Performed By: #### ALIYAH, CMP, LIPA #### [facility] [address] [address] [address] Lawrence WayneBilirubin [Mass/Vol]0.4 mg/dLNormal0.2-1.3The [facility] Comment on above:Performed By: #### ALIYAH, CMP, LIPA #### [facility] [address] [address] [address] Lawrence WayneCalcium [Mass/Vol]9.4 mg/dLNormal8.4-10.2The [facility] Comment on above:Performed By: #### ALIYAH, CMP, LIPA #### [facility] [address] [address] [address] Lawrence WayneChloride [Moles/Vol]100 mmol/BVozzzc70-098Diw [facility] Comment on above:Performed By: #### ALIYAH, CMP, LIPA #### [facility] [address] [place] [address] Dr. Lawrence WayneCO2 [Moles/Vol]23.9 mmol/IAjgnyv91.0-30.0[facility] Comment on above:Performed By: #### ALIYAH, CMP, LIPA #### [facility] [address] [place] [address] Dr. Lawrence WayneCreatinine [Mass/Vol]0.97 mg/dLNormal0.52-1.04The [facility] HospitalComment on above:Performed By: #### ALIYAH, CMP, LIPA #### [facility] [address] [place] [address] Dr. Lawrence ThomasGFR-AF CENTRAL AFRICAN>60Normal>=60The [facility] HospitalComment on above:Performed By: #### ALIYAH, CMP, LIPA #### [facility] [address] [place] [address] Dr. Lawrence ThomasGFR-NON AF NCDIIREB24 mL/min/1.37k0Yywrqkqzkr low>=60The [facility] HospitalComment on above:Performed By: #### ALIYAH, CMP, LIPA #### [facility] [address] [place] [address] Dr. Lawrence WayneGlobulin (S) [Mass/Vol]3.8 g/dLNormalThe [facility] HospitalComment on above:Performed By: #### ALIYAH, CMP, LIPA #### [facility] [address] [place] [address] Dr. Lawrence WayneGlucose [Mass/Vol]169 mg/dLCritically fyyd78-122Pgn [facility] HospitalComment on above:Performed By: #### ALIYAH, CMP, LIPA #### [facility] [address] [address] [address] Lawrence WaynePotassium [Moles/Vol]3.4 mmol/LNormal3.4-5.0The [facility] Comment on above:Performed By: #### ALIYAH, CMP, LIPA #### [facility] [address] [address] [address] Lawrence WayneProtein [Mass/Vol]7.7 g/dLNormal6.1-8.2The [facility] Comment on above:Performed By: #### ALIYAH, CMP, LIPA #### [facility] [address] [address] [address] Lawrence WayneSodium [Moles/Vol]136 mmol/LCritically usl245-491Miv [facility] HospitalComment on above:Performed By: #### ALIYAH, CMP, LIPA #### [facility] [address] [address] [address] Lawrence WayneUrea nitrogen [Mass/Vol]16.0 mg/dLNormal7.0-17.0The [facility] HospitalComment on above:Performed By: #### ALIYAH, CMP, LIPA #### [facility] [address] [address] [address] Lawrence WayneUrea nitrogen/Creatinine [Mass ratio]16.5 mg/mgNormalThOhioHealth Southeastern Medical CenterComment on above:Performed By: #### ALIYAH, CMP, LIPA #### [facility] [address] [address] [address] Lawrence Jo by IFAon 95-56-8100Qybfexrajwq Antibodies, IFAPositive AbnormalThe [facility] HospitalComment on above:Result Comment: Negative <1:80 Borderline 1:80 Positive >1:80Performed By: #### ANAIFA ####[facility] [address] [address]Dr. Lawrence Larariolrubin PatternNoDunlap Memorial HospitalComment on above:Performed By: #### ANAIFA ####[facility] [address] [id number]. Lawrence Wayne Centromere PatternSCCI Hospital LimaComment on above:Performed By: #### ANAIFA ####[facility] [address] [id number]. Lawrence WayneHomogeneous [facility] HospitalComment on above:Performed By: #### ANAIFA ####[facility] [address] [id number]. Lawrence WayneMidbody [facility] HospitalComment on above:Performed By: #### ANAIFA ####[facility] [address] [address]Dr. Lawrence WayneNote:Comment NormalFairfield Medical Center on above:Result Comment: For more information about Hep-2 cell [...] titers Nucleosomes, Histones Drug-induced SLE Speckled Sm, PHYTOCHEMISTRY PROFESSOR, SCL-70, SLE,MCTD,PSS (diffuse form), SS-A/SS-B Sjogrens Nucleolar SCL-70, PM- 1/SCL High titers Scleroderma, PM/DM Centromere Centromere PSS (limited form)w/Crest syndrome variable Nuclear Dot Sp100,y37-lqtzbn Primary Biliary Cirrhosis Nuclear GP210, Primary Biliary Cirrhosis Membrane hamilton A,B,C Performed By: ##Carlos TORRES ####[facility] [address] [place], [place] [address]Dr. Lawrence WayneNuclear Dot PatternNormUniversity Hospitals Ahuja [facility] Center on above:Performed By: #Javier TORRES ###[facility] [address] [place], [place] [address]DrKim WayneNuclear Membrane PatternNormUniversity Hospitals Ahuja [facility] Center on above:Performed By: #Javier TORRES ###[facility] [address] [place], [place] [address]DrKim Wayne Nucleolar PatternSCCI Hospital LimaComment on above:Performed By: #### ANAIFA ####[facility] [address] [address]Dr. Lawrence MarinNA PatternSCCI Hospital LimaComment on above: Performed By: #### ANAIFA ####[facility] [address] [address]Dr. Lawrence WayneSpeckled Pattern1:160Critically highThe [facility] HospitalComment on above:Result Comment: ICAP nomenclature: AC-2,4,5,29 Performed By: #### ANAIFA ####[facility] [address] [address]Dr. Lawrence WayneSpindle Apparatus [facility] HospitalComment on above:Performed By: #### ANAIFA ####[facility] [address] [address]Dr. Lawrence Jo DIRECTon 61-37-6640EYY DirectPositiveAbnormalNegativeMer[facility] Comment on above:Performed By: #### ANAD ####[facility] [address] [address]Dr. Lawrence WayneSCHRIS PROFILE Aon 08-11-2021 Anti-DNA (DS) Ab Qn1 IU/mLNormal0-9[facility] CenterComment on above:Result Comment: Negative <5 Equivocal 5 - 9 Positive >9Performed By: #### ALIYAH, CMP, LIPA #### [facility] [address] [address] [address] Lawrence WayneAntichromatin Antibodies<0.3Yetjwh5.0-0.9[facility] Comment on above:Performed By: #### ALIYAH, CMP, LIPA #### [facility] [address] [address] [address] Lawrence Brown Latex Turbid.<10.0Normal<14.0The [facility] HospitalComment on above:Performed By: #### ALIYAH, CMP, LIPA #### [facility] [address] [address] [address] Lawrence Guillen Antibodies<0.6Dirmix4.0-0.9The [facility] HospitalComment on above:Performed By: #### ALIYAH, CMP, LIPA #### [facility] [address] [address] [address] Lawrence Borrego Anti-SS-A1.4 AICritically high0.0-0.9The [facility] HospitalComment on above:Performed By: #### ALIYAH, CMP, LIPA #### [facility] [address] [address] [address] Lawrence Borergo Anti-SS-B<0.4Romxfj2.0-0.9The [facility] HospitalComment on above:Performed By: #### ALIYAH, CMP, LIPA #### [facility] [address] [place] [address] Dr. Lawrence Galaviz Antibodies<0.1Borsvm1.0-0.9The [facility] HospitalComment on above:Performed By: #### ALIYAH, CMP, LIPA #### [facility] [address] [place] [address] Dr. Lawrence WayneANTISTREPTOLYSIN O AB (ASO)on 06-06-8397Wjadlikvihdbngex O Ab55.6 IU/mLNormal0.0-200.0The [facility] HospitalComment on above:Performed By: #### ALIYAH, CMP, LIPA #### [facility] [address] [place] [address] Dr. Lawrence WayneC3 and C4 COMPLEMENTon 00-79-1385Qrvonycodr C3, Ckbqp416 mg/dL Iqxedr42-114Vib [facility] HospitalComment on above:Performed By: #### ALIYAH, CMP, LIPA #### [facility] [address] [place] [address] Dr. Lawrence WayneComplement C4, Serum12 mg/lLWzymms07-70Zoj [facility] Comment on above:Performed By: #### ALIYAH, CMP, LIPA #### [facility] [address] [place] [address] Dr. Lawrence Duval AUTO DIFFon 38-26-6103MWEG #0.1 103/ulNormal0.0-0.1The [facility] HospitalComment on above:Performed By: #### ALIYAH, CMP, LIPA #### [facility] [address] [place] [address] Dr. Lawrence WayneBasophils/100 WBC (Bld)0.6 %Normal0.2-2.0The [facility] Comment on above:Performed By: #### ALIYAH, CMP, LIPA #### [facility] [address] [place] [address] Dr. Lawrence Craig #0.0 103/ulNormal0.0-0.7The [facility] HospitalComment on above: Performed By: #### ALIYAH, CMP, LIPA #### [facility] [address] [place] [address] Dr. Lawrence Thomasosinophils/100 WBC (Bld)0.2 %Critically low0.9-7.0The [facility] HospitalComment on above:Performed By: #### ALIYAH, CMP, LIPA #### [facility] [address] [place] [address] Dr. Lawrence Vanegasthrocyte distribution width (RBC) [Ratio]13.4 %Cxfurl67.0-15.0 The [facility] HospitalComment on above:Performed By: #### ALIYAH, CMP, LIPA #### [facility] [address] [place] [address] Dr. Lawrence WayneHematocrit (Bld) [Volume fraction]43.6 %Fkbnrn65.0-48.0The [facility] Hospitalment on above:Performed By: #### ALIYAH, CMP, LIPA #### [facility] [address] [place] [address] Dr. Lawrence WayneHemoglobin (Bld) [Mass/Vol]14.2 g/dXAhpeuj03.0-16.0The [facility] Hospitalment on above:Performed By: #### ALIYAH, CMP, LIPA #### [facility] [address] [place] [address] Dr. Lawrence Rebolledo #0.03 10e3/ulNormal0.00-0.03The [facility] HospitalComment on above:Performed By: #### ALIYAH, CMP, LIPA #### [facility] [address] [address] [address] Lawrence Rebolledo %0.3 %Normal0.0-0.5The [facility] HospitalComment on above: Performed By: #### ALIYAH, CMP, LIPA #### [facility] [address] [address] [address] Lawrence Juarez #1.1 103/ulCritically low1.2-3.8The [facility] Comment on above:Performed By: #### ALIYAH, CMP, LIPA #### [facility] [address] [place] [address] Dr. Lawrence Mccallhocytes/100 WBC (Bld)12.7 %Critically low20.5-60.0The [facility] HospitalComment on above:Performed By: #### ALIYAH, CMP, LIPA #### [facility] [address] [address] [address] Lawrence MccordUAL DIFF REQNONormalThe [facility] HospitalComment on above: Performed By: #### ALIYAH, CMP, LIPA #### [facility] [address] [place] [address] Dr. Lawrence Ivan (RBC) [Entitic mass]30.3 itPfznko34.7-34.0The [facility] HospitalComment on above:Performed By: #### ALIYAH, CMP, LIPA #### [facility] [address] [place] [address] Dr. Lawrence Ivan (RBC) [Mass/Vol]32.6 g/xZXdaeef99.9-35.2The [facility] HospitalComment on above:Performed By: #### ALIYAH, CMP, LIPA #### [facility] [address] [place] [address] Dr. Lawrence Ivan (RBC) [Entitic vol]93.0 kIOnlugm69.0-99.0The [facility] HospitalComment on above:Performed By: #### ALIYAH, CMP, LIPA #### [facility] [address] [address] [address] Lawrence Lees #0.3 103/ulNormal0.3-0.8The [facility] HospitalComment on above:Performed By: #### ALIYAH, CMP, LIPA #### [facility] [address] [place] [address] Dr. Lawrence Wagnerocytes/100 WBC (Bld)3.7 %Normal1.7-12.0[facility] Comment on above:Performed By: #### ALIYAH, CMP, LIPA #### [facility] [address] [place] [address] Dr. Lawrence Hilliard #7.3 103/ulCritically high1.4-6.5The [facility] Comment on above:Performed By: #### ALIYAH, CMP, LIPA #### [facility] [address] [place] [address] Dr. Lawrence Mezautrophils/100 WBC (Bld)82.5 %Critically high43.0-75.0The [facility] HospitalComment on above:Performed By: #### ALIYAH, CMP, LIPA #### [facility] [address] [place] [address] Dr. Lawrence Polanco mean volume (Bld) [Entitic vol]9.6 fLNormal9.5-13.5The [facility] HospitalComment on above:Performed By: #### ALIYAH, CMP, LIPA #### [facility] [address] [place] [address] Dr. Lawrence WaynePLT322 103/gzTkzqpc983-342Lse [facility] HospitalComment on above: Performed By: #### ALIYAH, CMP, LIPA #### [facility] [address] [place] [address] Dr. Lawrence WayneRBC4.69 106/ulNormal4.20-5.40The [facility] HospitalComment on above:Performed By: #### ALIYAH, CMP, LIPA #### [facility] [address] [address] [address] Lawrence WayneWBC8.8 103/ulNormal4.0-11.0The [facility] HospitalComment on above: Performed By: #### ALIYAH, CMP, LIPA #### [facility] [address] [address] [address] Lawrence Prieto 41-96-9331FES [Mass/Vol]mg/LNormal<=1.0The [facility] HospitalComment on above:Performed By: #### ALIYAH, CMP, LIPA #### [facility] [address] [address] [address] Lawrence Pinzon 33-74-9505Uixf [Mass/Vol]83.0 ug/mYOtrewf42.0-170.0The [facility] HospitalComment on above:Performed By: #### ALIYAH, CMP, LIPA #### [facility] [address] [address] [address] Lawrence Hernandez RATE WESTERGRENon 69-40-8246CZT RATE16 mm/hrNormal<=30The [facility] HospitalComment on above:Performed By: #### SEDR ####[facility] [address] [address]Dr. Lawrence WayneURIC ACID SERUMon 56-13-6760Arceh [Mass/Vol]3.4 mg/dLNormal2.5-6.2The [facility] Comment on above:Performed By: #### ALIYAH, CMP, LIPA #### [facility] [address] [address] [address] Lawrence WayneXR CSPINE MIN 4 VIEWSon 30-48-9888CD CSPINE MIN 4 VIEWS EXAMINATION: XR CSPINE [...] Electronically authenticated by: TYRELL MOREJON Date: 2021-08-09 14:37[facility] PYLORI ANTIBODY IGGon 07-12-2021H. PYLORI IGG ABS0.13 Index ValueNormal0.00-0.79[facility] CenterComment on above:Result Comment: Negative <0.80 Equivocal 0.80 - 0.89 Positive >0.89Performed By: #### ALIYAH, CMP, LIPA #### [facility] [address] [place] [address] Dr. Lawrence WayneAMYLASEon 03-68-9500Rqprjuy [Catalytic activity/Vol]100 U/LNormal 31-110[facility] CenterComment on above:Performed By: #### ALIYAH, CMP, LIPA #### [facility] [address] [place] [address] Dr. Lawrence Duval AUTO DIFFon 38-25-8668XSSU #0.1 103/ulNormal0.0-0.1[facility] CenterComment on above:Performed By: #### ALIYAH, CMP, LIPA #### [facility] [address] [place] [address] Dr. Lawrence WayneBasophils/100 WBC (Bld)0.7 %Normal0.2-2.0[facility] Comment on above:Performed By: #### ALIYAH, CMP, LIPA #### [facility] [address] [place] [address] Dr. Lawrence Craig #0.1 103/ulNormal0.0-0.7The [facility] HospitalComment on above: Performed By: #### ALIYAH, CMP, LIPA #### [facility] [address] [place] [address] Dr. Lawrence Thomasosinophils/100 WBC (Bld)1.2 %Normal0.9-7.0[facility] Comment on above:Performed By: #### ALIYAH, CMP, LIPA #### [facility] [address] [place] [address] Dr. Lawrence Thomasrythrocyte distribution width (RBC) [Ratio]13.9 %Qcwgjn42.0-15.0 The [facility] HospitalComment on above:Performed By: #### ALIYAH, CMP, LIPA #### [facility] [address] [place] [address] Dr. Lawrence WayneHematocrit (Bld) [Volume fraction]45.9 %Ckeite11.0-48.0The [facility] HospitalComment on above:Performed By: #### ALIYAH, CMP, LIPA #### [facility] [address] [place] [address] Dr. Lawrence WayneHemoglobin (Bld) [Mass/Vol]14.9 g/tZMoozrv70.0-16.0The [facility] HospitalComment on above:Performed By: #### ALIYAH, CMP, LIPA #### [facility] [address] [place] [address] Dr. Lawrence Rebolledo #0.03 10e3/ulNormal0.00-0.03The [facility] Community HospitalComment on above:Performed By: #### ALIYAH, CMP, LIPA #### [facility] [address] [place] [address] Dr. Lawrence Rebolledo %0.4 %Normal0.0-0.5The [facility] HospitalComg[facility] on above: Performed By: #### ALIYAH, CMP, LIPA #### [facility] [address] [place] [address] Dr. Lawrence Juarez #2.2 103/ulNormal1.2-3.8The [facility]Com[facility] on above:Performed By: #### ALIYAH, CMP, LIPA #### [facility] [address] [place] [address] Dr. Lawrence Mccallhocytes/100 WBC (Bld)29.0 %Nvpqsd15.5-60.0The [facility] Hospitalment on above:Performed By: #### ALIYAH, CMP, LIPA #### [facility] [address] [place] [address] Dr. Lawrence Ellsworth DIFF REQNONormalThe [facility] HospitalComment on above: Performed By: #### ALIYAH, CMP, LIPA #### [facility] [address] [place] [address] Dr. Lawrence Ivan (RBC) [Entitic mass]29.8 gyExgzgj41.7-34.0The [facility] HospitalComment on above:Performed By: #### ALIYAH, CMP, LIPA #### [facility] [address] [place] [address] Dr. Lawrence [facility] (RBC) [Mass/Vol]32.5 g/lIEpybtd55.9-35.2The [facility] HospitalComment on above:Performed By: #### ALIYAH, CMP, LIPA #### [facility] [address] [place] [address] Dr. Lawrence Ivan (RBC) [Entitic vol]91.8 bTPugauz02.0-99.0The [facility] HospitalComment on above:Performed By: #### ALIYAH, CMP, LIPA #### [facility] [address] [place] [address] Dr. Lawrence Lees #0.9 103/ulCritically high0.3-0.8The [facility] Comment on above:Performed By: #### ALIYAH, CMP, LIPA #### [facility] [address] [place] [address] Dr. Lawrence Wagnerocytes/100 WBC (Bld)11.7 %Normal1.7-12.0The [facility] Comment on above:Performed By: #### ALIYAH, CMP, LIPA #### [facility] [address] [place] [address] Dr. Lawrence Hilliard #4.3 103/ulNormal1.4-6.5The [facility] HospitalComment on above:Performed By: #### ALIYAH, CMP, LIPA #### [facility] [address] [place] [address] Dr. Lawrence Mezautrophils/100 WBC (Bld)57.0 %Hdrxaw24.0-75.0The [facility] HospitalComment on above:Performed By: #### ALIYAH, CMP, LIPA #### [facility] [address] [place] [address] Dr. Lawrence WaynePlatelet mean volume (Bld) [Entitic vol]8.7 fLCritically low 9.5-13.5The [facility] HospitalComment on above:Performed By: #### ALIYAH, CMP, LIPA #### [facility] [address] [place] [address] Dr. Lawrence WaynePLT351 103/muSwmxnf127-469[facility] on above: Performed By: #### ALIYAH, CMP, LIPA #### [facility] [address] [place] [address] Dr. Lawrence WayneRBC5.00 106/ulNormal4.20-5.40The [facility] Hospitalment on above:Performed By: #### ALIYAH, CMP, LIPA #### [facility] [address] [place] [address] Dr. Lawrence WayneWBC7.6 103/ulNormal4.0-11.0The [facility] Hospitalment on above: Performed By: #### ALIYAH, CMP, LIPA #### [facility] [address] [place] [address] Dr. Lawrence WayneLIPASEon 55-91-7589Yotywm [Catalytic activity/Vol]93.0 U/LNormal 23.0-300.0The [facility] on above:Performed By: #### ALIYAH, CMP, LIPA #### [facility] [address] [place] [address] Dr. Lawrence WaynePROF 14(COMP METB)on 41-50-1833Uianonn [Mass/Vol]4.1 g/dLNormal 3.5-5.0The [facility] on above:Performed By: #### ALIYAH, CMP, LIPA #### [facility] [address] [place] [address] Dr. Lawrence WayneAlbumin/Globulin [Mass ratio]1.1 {ratio}NormalThe Jodi HospitalComment on above:Performed By: #### ALIYAH, CMP, LIPA #### [facility] [address] [address] [address] Lawrence Arguello [Catalytic activity/Vol]101 U/BXlrknp09-463Iog [facility] HospitalComment on above:Performed By: #### ALIYAH, CMP, LIPA #### [facility] [address] [address] [address] Lawrence Gomez [Catalytic activity/Vol]38 U/LNormal9-52[facility] Comment on above:Performed By: #### ALIYAH, CMP, LIPA #### [facility] [address] [place] [address] Dr. Lawrence Kiddon gap [Moles/Vol]12.5 mmol/LNormalThe [facility] Comment on above:Performed By: #### ALIYAH, CMP, LIPA #### [facility] [address] [place] [address] Dr. Lawrence WayneAST [Catalytic activity/Vol]25 U/AOjrpik35-23Ljo [facility] HospitalComment on above:Performed By: #### ALIYAH, CMP, LIPA #### [facility] [address] [place] [address] Dr. Lawrence WayneBilirubin [Mass/Vol]0.8 mg/dLNormal0.2-1.3TMercy Hospital Comment on above:Performed By: #### ALIYAH, CMP, LIPA #### [facility] [address] [place] [address] Dr. Lawrence WayneCalcium [Mass/Vol]9.9 mg/dLNormal8.4-10.2[facility] Comment on above:Performed By: #### ALIYAH, CMP, LIPA #### [facility] [address] [place] [address] Dr. Lawrence WayneChloride [Moles/Vol]98 mmol/CBujoin30-671AtjMer[facility] Comment on above:Performed By: #### ALIYAH, CMP, LIPA #### [facility] [address] [place] [address] Dr. Lawrence WayneCO2 [Moles/Vol]26.6 mmol/SQxweyy62.0-30.0The [facility] Comment on above:Performed By: #### ALIYAH, CMP, LIPA #### [facility] [address] [place] [address] Dr. Lawrence WayneCreatinine [Mass/Vol]1.12 mg/dLCritically high0.52-1.04The [facility] HospitalComment on above:Performed By: #### ALIYAH, CMP, LIPA #### [facility] [address] [place] [address] Dr. Bravo ChangEGFR-AF IPQKMRTA24 mL/min/1.73l7Olpfximgzq low>=60The [facility] HospitalComment on above:Performed By: #### ALIYAH, CMP, LIPA #### [facility] [address] [place] [address] Dr. Lawrence ThomasGFR-NON AF YSCESAHA77 mL/min/1.58z8Aosefduspi low>=60The [facility] HospitalComment on above:Performed By: #### ALIYAH, CMP, LIPA #### [facility] [address] [place] [address] Dr. Lawrence WayneGlobulin (S) [Mass/Vol]3.7 g/dLNormalThe [facility] HospitalComment on above:Performed By: #### ALIYAH, CMP, LIPA #### [facility] [address] [place] [address] Dr. Lawrence WayneGlucose [Mass/Vol]117 mg/dLCritically fftx36-196Bey [facility] HospitalComment on above:Performed By: #### ALIYAH, CMP, LIPA #### [facility] [address] [place] [address] Dr. Lawrence WaynePotassium [Moles/Vol]4.1 mmol/LNormal3.4-5.0The [facility] Comment on above:Performed By: #### ALIYAH, CMP, LIPA #### [facility] [address] [place] [address] Dr. Lawrence WayneProtein [Mass/Vol]7.8 g/dLNormal6.1-8.2The [facility] Comment on above:Performed By: #### ALIYAH, CMP, LIPA #### [facility] [address] [address] [address] Lawrence WayneSodium [Moles/Vol]133 mmol/LCritically atb105-427Rub [facility] HospitalComment on above:Performed By: #### ALIYAH, CMP, LIPA #### [facility] [address] [address] [address] Lawrence WayneUrea nitrogen [Mass/Vol]9.0 mg/dLNormal7.0-17.0The [facility] HospitalComment on above:Performed By: #### ALIYAH, CMP, LIPA #### [facility] [address] [address] [address] Lawrence Faulkner nitrogen/Creatinine [Mass ratio]8.0 mg/mgNormalThe [facility] HospitalComment on above:Performed By: #### ALIYAH, CMP, LIPA #### [facility] [address] [address] [address] Lawrence Wayne Vital Signs Date TimeVital SignValuePerforming MyrgpcpxuGletfmef69-68-7388 13:29-0400Body hdbigb363.02 cmAnitha Ramey MD Work Phone: 1([phone])[address]10-22-2025 13:29-0400 Body mass index (BMI) [Ratio]23.6 kg/x1CvwzhovAnitha Ramey MD Work Phone: 1(595)[address]263 [address]10-22-2025 13:29-0400 Body nzemhz62.44 kgAnitha Ramey MD Work Phone: 1(073)[address]10-22-2025 13:29-0400 Diastolic blood eiehvgef68 mm[Hg]Anitha Ramey MD Work Phone: 1(130)[address]10-22-2025 13:29-0400 Heart rate66 /Regina Ramey MD Work Phone: 1(881)[address]10-22-2025 13:29-0400 SaO2% (BldA) [Mass fraction]99 %Anitha Ramey MD Work Phone: 1(419)[address]10-22-2025 13:29-0400 Systolic blood gkhmdqeu146 mm[Hg]Anitha Ramey MD Work Phone: 1(419)[address] [place], [place] [address]63[address]10-21-2025 10:24-0400 Body aqirfe062.02 cmAnitha Ramey MD Work Phone: 1(419)[address] [place], [place] [address]10-21-2025 10:24-0400 Body mass index (BMI) [Ratio]23.6 kg/i7PbzrclcAnitha Ramey MD Work Phone: 1(419)[address] [place], [place] [address]10-21-2025 10:24-0400 Body cggzry29.32 kgAnitha Ramey MD Work Phone: 1(672)[address] [place], [place] [address]63[address]10-15-2025 10:53-0400 Diastolic blood mm[Hg]Anitha Ramey MD Work Phone: 1(634)[address] [place], [place] [address]10-15-2025 10:53-0400 Heart rate71 /Regina Ramey MD Work Phone: 1(419)[address] [place], [place] [address]63[address]10-15-2025 10:53-0400 Respiratory rate16 /Regina Ramey MD Work Phone: 1(053)[address] [place], [place] [address]10-15-2025 10:53-0400 SaO2% (BldA) [Mass fraction]99 %Anitha Ramey MD Work Phone: 1(916)[address] [place], [place] [address]10-15-2025 10:53-0400 Systolic blood itligerv314 mm[Hg]Anitha Ramey MD Work Phone: 1(419)[address] [place], [place] [address]63[address]10-15-2025 10:10-0400 Inhaled oxygen flow rate3 L/Regina Ramey MD Work Phone: 1(107)[address] [place], [place] [address]63[address]10-15-2025 08:55-0400 Body skfpiw612.02 cmAnitha Ramey MD Work Phone: 1(170)[address] [place], [place] [address]10-15-2025 08:55-0400 Body gtimdy18.78 kgAnitha Ramey MD Work Phone: 1(419)483-[address] [place], [place] 6693210-10-2025 10:04-0400 Body xuukaf104.02 cmAnitha Ramey MD Work Phone: 1(419)[address] [place], [place] [address]63[address]10-10-2025 10:04-0400 Body mass index (BMI) [Ratio]25.4 kg/m6LkthrhqAnitha Ramey MD Work Phone: 1(419)[address] [place], [place] [address]10-10-2025 10:04-0400 Body pivhbi67 kgAnitha Ramey MD Work Phone: 1(419)[address] [place], [place] [address]10-10-2025 10:04-0400 Diastolic blood cyctalxb48 mm[Hg]Anitha Ramey MD Work Phone: 1(419)[address] [place], [place] [address]10-10-2025 10:04-0400 Systolic blood mm[Hg]Anitha Ramey MD Work Phone: 1(419)[address] [place], [place] [address]10-03-2025 10:01-0400 Diastolic blood wfpdbpyb87 mm[Hg]Anitha Ramey MD Work Phone: 1(419)[address] [place], [place] [address]10-03-2025 10:01-0400 Heart rate70 /Regina Ramey MD Work Phone: 1(419)[address] [place], [place] [address]10-03-2025 10:01-0400 SaO2% (BldA) [Mass fraction]98 %Anitha Ramey MD Work Phone: 1(419)[address] [place], [place] [address]10-03-2025 10:01-0400 Systolic blood gjlfkigi888 mm[Hg]Anitha Ramey MD Work Phone: 1(419)[address] [place], [place] [address]63[address]09-24-2025 12:59-0400 Diastolic blood mm[Hg]Anitha Ramey MD Work Phone: 1(419)[address] [place], [place] [address]09-24-2025 12:59-0400 Heart rate71 /Regina Ramey MD Work Phone: 1(419)[address] [place], [place] [address]09-24-2025 12:59-0400 SaO2% (BldA) [Mass fraction]99 %Anitha Ramey MD Work Phone: 1(419)[address]09-24-2025 12:59-0400 Systolic blood bkxbqkee138 mm[Hg]Anitha Ramey MD Work Phone: 1(433)[address] [place], [place] 563[address]08-26-2025 15:30-0400 Body orpvnuxoeft58.1 [degF]Anitha Ramey MD Work Phone: 1(621)[address] [place], [place] [address]08-26-2025 15:30-0400 Diastolic blood fjalrkjd50 mm[Hg]Anitha Ramey MD Work Phone: 1(211)[address] [place], [place] [address]08-26-2025 15:30-0400 Heart rate65 /Regina Ramey MD Work Phone: 1(013)[address] [place], [place] [address]08-26-2025 15:30-0400 Respiratory rate18 /Regina Ramey MD Work Phone: 1(191)[address] [place], [place] [address]08-26-2025 15:30-0400 SaO2% (BldA) [Mass fraction]100 %Anitha Ramey MD Work Phone: 1(581)[address] [place], [place] [address]08-26-2025 15:30-0400 Systolic blood jxrjbohv254 mm[Hg]Anitha Ramey MD Work Phone: 1(363)[address] [place], [place] [address]63[address]08-26-2025 05:55-0400 Body qynsvx02.9 kgAnitha Ramey MD Work Phone: 1(909)[address] [place], [place] [address]08-25-2025 14:26-0400 Inhaled oxygen flow rate6 L/Regina Ramey MD Work Phone: 1(496)[address] [place], [place] 563[address]08-23-2025 19:57-0400 Body tcyosb552.02 cmAnitha Ramey MD Work Phone: 1(561)[address] [place], [place] [address]08-11-2025 09:14-0400 Body fzokst670.02 cmAnitha Ramey MD Work Phone: 1(770)[address] [place], [place] [address]08-11-2025 09:14-0400 Body mass index (BMI) [Ratio]24.4 kg/m6GohuuttAnitha Ramey MD Work Phone: 1(079)[address]08-11-2025 09:14-0400 Body nvajwx81.59 kgDoelyssa Ramey MD Work Phone: 1(027)[address] [place], [place] [address]63[address]08-11-2025 09:14-0400 Diastolic blood mm[Hg]Anitha Ramey MD Work Phone: 1(864)[address] [place], [place] [address]08-11-2025 09:14-0400 Heart rate65 /Regina Ramey MD Work Phone: 1(697)[address] [place], [place] [address]08-11-2025 09:14-0400 Respiratory rate6 /Regina Ramey MD Work Phone: 1(339)[address] [place], [place] [address]08-11-2025 09:14-0400 SaO2% (BldA) [Mass fraction]98 %Anitha Ramey MD Work Phone: 1(677)[address] [place], [place] [address]63[address]08-11-2025 09:14-0400 Systolic blood mm[Hg]Anitha Ramey MD Work Phone: 1(357)[address] [place], [place] 563[address]03-03-2025 10:22-0500 Body vwkurz281 cmDivya Dudley MD Work Phone: 1(678)[address] [place], [place] 5031103-03-2025 10:22-0500Body mass index (BMI) [Ratio]23.56 kg/i9BvzowzDivya Dudley MD Work Phone: 1(700)[address] [place], [place] 5031103-03-2025 10:22-0500Body aklbnn42.33 kgDivya Dudley MD Work Phone: 1(016)[address] [place], [place] 50[address]103-03-2025 10:22-0500Diastolic blood etagyjpi11 mm[Hg]Divya Dudley MD Work Phone: 1(584)[address] [place], [place] [address] SystemsPiohtgcxvn48-71-6035 10:22-0500Heart rate73 /min Divya Dudley MD Work Phone: 1(655)[facility] SystemsVwtwfgdthi50-34-5050 10:22-0500Systolic blood bvwkahtp029 mm[Hg]Divya Dudley MD Work Phone: [phone] [address]Kynrykahfo92-47-2941 14:12-0500Body mass index (BMI) [Ratio]23.6 kg/l4Qfzydxoficd Connie DO Work Phone: [facility] SystemsHyeyfvzrvf41-37-4769 14:12-0500Body pauuyu92.42 kgChristopher Connie DO Work Phone: [facility] SystemsVzhkgsgkzr56-14-3421 14:12-0500Diastolic blood mmiofhtq32 mm[Hg]Christopher Connie DO Work Phone: [facility] SystemsMhgcebkozc28-94-3546 14:12-0500Heart rate72 /min Christopher Connie DO Work Phone: [facility] SystemsBtxpwuzlua56-27-5525 14:12-7316AvE8% (BldA) [Mass fraction]99 %Christopher Connie DO Work Phone: 1(372)[facility]-4928[facility] SystemsRdmyavlugc63-48-2448 14:12-0500Systolic blood ppjqpcxe140 mm[Hg]Christopher Connie DO Work Phone: 1(850)[facility]-4114[facility] SystemsLnqmbvtclg87-35-7054 10:20-0500Body bbqajx236 cm Divya Dudley MD Work Phone: [facility] SystemsVfqsjzauxs35-33-8288 10:20-0500Diastolic blood jnqokrob61 mm[Hg]Divya Dudley MD Work Phone: [facility] SystemsWsjscazwgp84-65-9139 10:20-0500Heart rate64 /min Divya Dudley MD Work Phone: 1(343)[facility]-3177[facility] SystemsBzprhzckgo26-88-9310 10:20-0500Systolic blood zegvoipn820 mm[Hg]Divya Dudley MD Work Phone: [facility] SystemsWdtpnjgrki50-41-3109 15:00-0500Body ncuqvg714.02 cmPrasad Isabel Other [place] [employer] Other 12-13-2022 15:00-0500Body mass index (BMI) [Ratio] 23.56 kg/m2Prasad Isabel Other [facility] [employer] Other 12-13-2022 15:00-0500Body mmdfig49.33 kgDale Isabel Other [facility] [employer] Other Encounters Encounter DateEncounter TypeCare ProviderFacilityStart: 95-74-6067nihfhqezbe Bentley BraggFacility:[facility]art: 04-05-2025 End: 94-27-0987motfcbbtipFrflqsr M Hoy MD Work Phone: [phone]([phone]-Zinbvccsn Health Pain MgmtStart: 04-05-2025 End: 29-33-3528Iogvixb encounter procedureSherfara Bragg MD-[facility] Work Phone: Start: 04-04-2025 End: 72-28-2477czrogmaxuxSvrhyig M Hoy MD Work Phone: 4(675)056-3406238-8540-Othljnvju Health OrthopedicsStart: 04-04-2025 End: 42-54-8859Gqlxkyn encounter procedureThomas Lynda Campoverde MD-[facility] Work Phone: Start: 03-29-2025 End: 01-35-2871Kwtfgeqso to same day surgery centerSivania Bragg MD-Digestive [facility] Work Phone: Start: 03-29-2025 End: 86-94-2903gihgqrveeuCjstoym M Hoy MD Work Phone: [facility] Work Phone: Start: 16-54-6469Vli-patient / Non-visitSivania Bragg MD-[facility] Work Phone: Start: 86-00-0773Wkpiksnrxv RecurringBentley Bragg MD- Physical Therapy [place] CreekStart: 03-24-2025 End: 91-14-8755blhcqqztnaFtnoosu M Hoy MD Work Phone: [facility] Work Phone: Start: 03-24-2025 End: 71-83-6019Lnpclmm encounter procedureRobert Santiago Olivera MD-[facility] Work Phone: Start: 03-17-2025 End: 16-38-1914tqsuftxfcpFnwhekb M Hoy MD Work Phone: [facility] Work Phone: Start: 03-17-2025 End: 45-63-5330Wjguckj encounter procedureSivania Bragg MD-[facility] Pain Management [place] Work Phone: Start: 03-08-2025 End: 12-09-9256pymfkpuezyOtnlpde M Hoy MD Work Phone: [facility] Work Phone: Start: 03-08-2025 End: 77-41-2035Cnfauok encounter procedureChristopher Connie Olivera -[facility] Work Phone: Start: 03-07-2025 End: 04-77-7740Tjnncit encounter procedureThgalen Campoverde MD-[facility] Work Phone: Start: 03-07-2025 End: 50-65-9879queebsgufmDpgjdqe M Hoy MD Work Phone: [facility] Work Phone: Start: 02-23-2025 End: 41-18-8765Sxzalgg encounter procedureRavin Campoverde MD-Ultrasound [facility] [place] Work Phone: Start: 02-23-2025 End: 04-36-9913ygopuyfnfsJhglmdo M Hoy MD Work Phone: [facility] Work Phone: Start: 02-21-2025 End: 19-92-9049ypcieqdscaBjgwamy M Hoy MD Work Phone: [facility] Work Phone: Start: 02-21-2025 End: 74-29-5183Caaqqyt encounter procedureThgalen Campoverde MD-[facility] Work Phone: Start: 02-21-2025 End: 48-99-3885Cnwhfox encounter procedureThgalen Lynda Campoverde MD-[facility] Start: 02-21-2025 End: 07-91-6998btxnjlkopgYdqetdb M Hoy MD Work Phone: [facility] Work Phone: Start: 90-41-9938Fob-patient / Non-visitThgalen Campoverde MD-[facility] Work Phone: Start: 02-04-2025 End: 98-99-8119Uezmdezpwt and management of inpatientKristmendel Matt Facility:[facility]art: 01-23-2025 End: 54-87-4256hatzibimwcDysgfgr M Hoy MD Work Phone: [facility] Work Phone: Start: 01-23-2025 End: 79-02-1922Oiibgav encounter procedureSdevan Chacon IZQE-VXD-T-[facility] [place] Work Phone: Start: 08-15-2024 End: 18-87-3021Duktey flowsheetDivya Dudley MD Work Phone: [facility] GISELLEtart: 08-15-2024 End: 39-84-7258Qxlhue flowsheetDivya Dudley MD Work Phone: [facility] GISELLEtart: 08-15-2024 End: 30-64-9399Hvaycw outpatient visit 25 minutesHivannesa Dudley MD Work Phone: [facility] ELIEZERExcelsior Springs Medical Centerment on above:Oral ulcer (Primary Dx)Start: 08-15-2024 End: 69-84-9603jowinsxpkeNLKTJX H TIMMISNot AvailableStart: 08-09-2024 End: 91-03-1993Ykithqike encounterHivannesa Dudley MD Work Phone: [facility] CI ENTComment on above:Mouth LesionsStart: 07-20-2024 End: 33-66-0487Qmhaau outpatient visit 25 minutesChristopher Connie DO Work Phone: aNA BELLEVUEComment on above:Memory impairment (Primary Dx); AnxietyStart: 07-20-2024 End: 44-98-7533vgnpmanuwlHZJWOQWFKMC HASSETTNot AvailableStart: 07-20-2024 End: 52-83-4317Ubirky flowsheetChristopher Connie DO Work Phone: aNA BELLEVUEStart: 07-20-2024 End: 85-11-3517Ebbszw flowsheetChristopher Connie DO Work Phone: aNA BELLEVUEStart: 06-20-2024 End: 17-04-8470Tbptcs flowsPriti Dudley MD Work Phone: [facility] NORWALKStart: 06-20-2024 End: 32-00-0998Bfgdifvandana Dudley MD Work Phone: [facility] NORWALKStart: 06-20-2024 End: 04-68-2077Csnznz outpatient new 45 minutesDiyva Dudley MD Work Phone: [facility] E[facility] NORWALKComment on above:Left facial pain (Primary Dx)Start: 06-20-2024 End: 94-78-5463jxhljwzaonTYUVUZ H TIMMISNot AvailableStart: 02-05-2024 End: 79-92-3855SybcwgSrtdthwz D Zahler DO Work Phone: [facility] NB OPHTComment on above:Age-related nuclear cataract of both eyesStart: 02-01-2024 End: 56-76-1823GsxwbgQwcqkmzs D Zahllashaun DO Work Phone: [facility] NB OPHTComment on above:Age-related nuclear cataract of both eyesStart: 01-18-2024 End: 59-97-6254Raqbeysgh Result EncounterJonathan Anu Emilie DO Work Phone: [facility] External Department UnsolicitedStart: 01-18-2024 End: 96-71-3741Thsuguxrz Result EncounterCindy Aguilar DO Work Phone: [facility] External Department UnsolicitedStart: 01-18-2024 End: 33-84-5136tgspxaimhgNeamrclw ZahlerFacility:FTMCStart: 01-11-2024 End: 67-45-9864foohfpjolsSALKKXOV D ZAHLERNot AvailableStart: 11-16-2023 End: 91-06-4926xifxakbcacAKCTDCTPBAW HASSETTNot AvailableStart: 11-02-2023 End: 23-03-5584yhymodhlkoFNOTPDVI DENBESTENNot AvailableStart: 10-08-2023 End: 29-99-3108owojkvljzxLGTADZXHREV HASSETTNot AvailableStart: 15-46-5009Gjoihl flowsvijiCindy Brennan Heenagogolashaun DO Work Phone: [facility] NB OPHTStart: 12-06-5399Nqrvjn neliaCindy Brennan Heenagogolashaun DO Work Phone: [facility] NB OPHTStart: 07-01-2022 End: 75-41-3990jdvrecyelpMR DOUGLAS HOYFacility:X1Pfzfw: 06-23-2022 End: 56-21-5763lfrprvgyawRBJOQRT M HOYFacility:[facility] Hospitaltart: 06-23-2022 End: 01-10-9290cggfnsymwoJecyiaFercho Moore PA-C Work Phone: [facility] InstituteComment on above:Fibromyalgia (Primary Dx); CervicalgiaStart: 06-23-2022 End: 73-77-4528Liwrgjuaubzq consultation with Ole Moore PA-C Work Phone: CCJOHNSON [facility]PITAL AND HOMEtart: 06-17-2022 End: 03-79-7350fjeslvboyzKE JACK HAYFacility:T1Lenns: 06-03-2022 End: 75-93-3913usbehobjrmDlrxfo Zaky Other [employer] Other Start: 05-98-0227Uxwqj abstractingUnk (Historical) NeurologyStart: 30-69-3635Vblifjmfn Sherif BraggFPG Laundry Housekeeping Aide Start: 05-27-2022 End: 28-74-7044bjvcvnoshwScfj Maame Other [employer] Other start: 13-14-8177Udyxnb outpatient new 30 minutesDale BraunFPG [facility] NeurosurgeryStart: 05-20-2022 End: 17-00-3614vdcqklkoffWO ANITHA HOYFacility:Y2Fsbjl: 05-07-2022 End: 14-76-4072monefomckiBO ANITHA HOYFacility:I9Xgsgn: 03-26-2022 End: 61-63-2010eavrbyguerDO MARK V WESTFacility:Y3Sdmss: 03-24-2022 End: 39-32-0030tfzlcifskaZF ANITHA HOYFacility:Q2Kvnxn: 02-18-2022 End: 93-35-9910hbmgjciqszJK ANITHA HOYFacility:U3Irdag: 02-06-2022 End: 60-51-6439ikulsgclirFG ANITHA HOYFacility:C3Uuxjr: 08-29-2021 End: 27-46-0075fjokhsjqwvUG ANITHA HOYFacility:M6Vmuga: 08-27-2021 End: 96-47-5112mykxjqnqheBU ANITHA HOYFacility:B6Ehvvh: 08-21-2021 End: 23-55-3774vnfnnrrqahWS ANITHA HOYFacility:I2Fmpks: 08-09-2021 End: 69-09-5160moqriubjklHW ANITHA HOYFacility:N3Qqbji: 07-11-2021 End: 58-02-4092rttxsxbjebQI ANITHA HOYFacility:H1 Procedures DateProcedureProcedure DetailPerforming ClinicianStart: 65-81-8727W-ray of left ankleAnitha Ramey MD Work Phone: Start: 93-09-6918Qfmvnx sympathetic blockAnitha Ramey MD Work Phone: Start: 05-72-5298Xahfm X-ray of left hipAnitha Ramey MD Work Phone: Start: 87-86-3409T-ray of left ankleAnitha Ramey MD Work Phone: Start: 74-53-8642Wgwqmj scan of lower limb veins Anitha Ramey MD Work Phone: Start: 94-59-3340I-ray of left footDoelyssa Ramey MD Work Phone: [phone]-art: 48-08-7503F-ray of left ankleAnitha Ramey MD Work Phone: Start: 85-01-9554MS CHEST 2 VIEWSCindy Aguilar DO Work Phone: Start: 07-27-2023 End: 82-68-8283Saknr medical xm&eval compre new pt 1/> vstAge-related nuclear cataract of both eyesCindy Aguilar DO Work Phone: comment on above:Age-related nuclear cataract of both eyes (Primary Dx)Start: 11-60-5761BjhbnhrojsyYanqskrd Zahler DO Work Phone: Plan of Treatment DateCare ActivityDetailAuthorStart: 57-14-4012C-ray of left ankleXR ankle LT min 3V*[facility]: 29-86-9026PY Ankle - left GE 3 Views [facility]art: 25-73-4252BeggcebvpOhio State University Wexner Medical Centertart: 93-34-4980Edhjnyl referralCherrington Hospital Work Phone: Start: 26-56-3472Nbxhtcz referralCherrington Hospital Work Phone: Start: 62-35-9199N-ray of left ankleXR ankle LT min 3V*[facility]art: 92-65-0130EH Ankle - left GE 3 Views [facility]: 55-43-4309Qqwgoq scan of lower limb veinsUS venous duplex LE [facility] Hospitaltart: 64-87-2071V- ray of left footXR foot LT min 3V*[facility]art: 86-18-5952PX Foot - left GE 3 ViewsOhio [facility] University [facility] Medical Centertart: 47-88-1734X-ray of left ankleXR ankle LT min 3V*[facility]art: 55-76-3315VA Ankle - left GE 3 ViewsOhio [facility] University [facility]ner Medical Centertart: 29-47-1493WmxpchfwpOhio State University Wexner Medical Centertart: 21-27-4396PH Ankle - left 2 ViewsOhio State University [facility]xner Medical Centertart: 00-57-7335Rcrckrsh admissionOhio State University Wexner Medical Centertart: 00-21-7269TdoicwralibaHgszrshjhOhio State University [facility] Medical Centertart: 77-78-2569BvuhzuwllOhio State University Wexner Medical Centertart: 01-23-2025 End: 47-59-6023Mmmduaw encounter pflvvrijf44/11/2025 9:40 AM EDT Office Visit [facility] [place] [address] [place] [address] Екатерина Chacon NP [address] [place] [phone] AMIRA [facility]ALTHCAREtart: 09-20-2024 End: 75-67-6935Khkkwhq encounter /08/2025 1:30 PM EDT Office Visit [facility] [address] [facility] [address] [place] [phone] Divya Dudley MD [address] [facility] [address] [place] [address] [facility] CI ENTStart: 08-15-2024 End: 93-48-3229Plklruq encounter pxmiyhify76/03/2025 10:30 AM EST Office Visit [facility] [place] [address] [place] [address] Divya Dudley MD [address] [facility] [address] [place] [address] ArrivedNOMS ENT [facility]ITALomment on above:ArrivedStart: 07-20-2024 End: 46-03-9735Vpmpmzv encounter lzbmnfeuq51/05/2025 2:15 PM EST Office Visit AMIRA ZAPATA [address] [place] [address] Miguel Ángel Rosales DO [address] [place] [address] ArrivedANA JODIComment on above:ArrivedStart: 06-20-2024 End: 43-87-7384Cimighk encounter ykpynrfre64/06/2025 10:30 AM EST Office Visit [facility] [place] [address] [place] [address] Divya Dudley MD [address] [facility] [address] [place] [address] ArrivedNOMS ENT [facility] on above:ArrivedStart: 98-03-0141Uzhwldhst vaccinationInfluenza Vaccine (#1)[facility] HealthcareStart: 02-09-2024 End: 61-14-2040Znnqipa encounter inwvgbfkd95/27/2024 7:30 AM EDT Procedure Visit [facility] Cindy Aguilar, DO [address] [place] [address] [facility] EXT DEPStart: 01-11-2024 End: 85-85-2103Ihonrxe encounter qnshsezst55/29/2024 1:15 PM EDT Office Visit [facility] [address] [place] [address] Cindy Aguilar, DO [address] [place] [address] [facility] CHELSEA OPHTStart: 07-27-2023 End: 49-50-7579Nlxdqbk encounter wkqljagsv98/12/2024 2:15 PM EST Office Visit [facility] [address] [place] [address] Cindy Aguilar, DO [address] [place] [address] ArrivedCENTRAL VALLEY [facility] OPHTComment on above:ArrivedStart: 64-97-1653Lunphfvxv for malignant neoplasm of breastMammogramHIGHLAND RIDGE HOSPITAL Healthcare Start: 43-96-6956Zkpnmmctn vaccinationInfluenza Vaccine (#1)[facility] Start: 81-01-4699MNNNWBQ DIRECTIVE DISCUSSIONADVANCE DIRECTIVE DISCUSSION [facility]art: 67-08-7524YIKWWYPUNT ASSESSMENTDEPRESSION ASSESSMENT [facility]art: 48-52-4184Nxftchjrv vaccinationINFLUENZA (#1)[facility]: 34-42-2119JDMDO-19 VACCINE (5 - Booster for Moderna series)COVID-19 VACCINE (5 - Booster for Moderna series)[facility]: 06-15-2021 ADVANCE DIRECTIVE DISCUSSIONADVANCE DIRECTIVE DISCUSSIONUpper Valley Medical Centertart: 66-69-7194NQWDKIHJGL ASSESSMENTDEPRESSION ASSESSMENTUpper Valley Medical Centertart: 05-39-9712LZUS DENSITYBONE DENSITYUpper Valley Medical Centertart: 25-18-1189Lqkzzjlusxym Vaccine: 65+ Years (1 - PCV)Pneumococcal Vaccine: 65+ Years (1 - PCV)[facility] HealthcareStart: 11-26-5795Ikahcpeqbipb Vaccine: 65+ Years (1 of 1 - PCV) Pneumococcal Vaccine: 65+ Years (1 of 1 - PCV)[facility] SystemsStart: 01-11-2021 PNEUMOCOCCAL: 65+ (1 - PCV)PNEUMOCOCCAL: 65+ (1 - PCV)[facility]: 35-89-8411LYHHOLOU SCREENDIABETES SCREENUpper Valley Medical Centertart: 01-11-2006 SHINGRIX VACCINE (1 of 2)SHINGRIX VACCINE (1 of 2)[facility]art: 38-70-7493QCRRRLELO (FIT-DNA)COLOGUARD (FIT-DNA)[facility]art: 11-41-1148ZwwwliorbmmCWECPWDNGYHZxlbymwti ClinicStart: 58-14-9439GRNHTXCGOY CANCER SCREENINGCOLORECTAL CANCER SCREENINGUpper Valley Medical Centertart: 43-59-7857CA COLONOGRAPHYCT COLONOGRAPHYUpper Valley Medical Centertart: 72-59-2094JVXUS OCCULT BLOOD FECAL OCCULT BLOODUpper Valley Medical Centertart: 29-50-8138VFHFP SCREENLIPID SCREEN [facility]ertart: 86-83-8989VJBPFZGHZUKJIBIKMZKNQZXBFGEdksmyseg Clinic Start: 94-59-9574OybzigwsefeHBZOWVVTCVigggavrf ClinicStart: 73-06-1342Cqkzq microalbumin profileDTAP,TDAP,TD (1 - Tdap)[facility]: 01[birth year]11-1974 HEPATITIS C SCREENINGHEPATITIS C SCREENINGUpper Valley Medical Centertart: 1956 COVID-19 VACCINE (#1)COVID-19 VACCINE (#1)[facility]ertart: 1955 Screening for malignant neoplasm of colonPemiscot Memorial Health SystemsPatient Education [facility] Work Phone: Patient referralOhiohealth [facility] General [facility] Work Phone: Immunizations Immunization DateImmunizationNotesCare DkdozhcvDpsnolpo20-40-3340kjbkhibii, high dose seasonal, preservative-Zandra Ramey MD Work Phone: [facility]10-26-2022influenza virus vaccine, unspecified formulationCindy Aguilar DO Work Phone: [facility] SystemsQzcyzsicoh38-28-6380ROPZP-21 mRNA-1273 (Moderna) Anitha Ramey MD Work Phone: [facility]06-01-2021COVID-19 mRNA-1273 (Moderna)Anitha Ramey MD Work Phone: [facility]04-09-2021COVID-19 mRNA-1273 (Moderna)Anitha Ramey MD Work Phone: [facility]03-12-2021COVID-19 mRNA-1273 (Moderna)Anitha Ramey MD Work Phone: [facility]10-05-2020influenza, injectable, quadrivalent, preservative Zandra Ramey MD Work Phone: [facility] Payers DatePayer CategoryPayerPolicy [id number] 2024MedicareANTHEM MEDICARE ADVANTAGE [facility] MEDICARE ADV[facility]AGE [id number] 2023-Present [id number] [place] [address] [id number] 2024Medicare (Managed Care)[facility] MEDICARE ADVANTAGE [id number] BLUE CROSS AND BLUE SHIELD ANTH MEDIBLUE HMO [id number] 2021-Present [phone] [address] [place] [address] HMO [id number] [id number] 2.16.840.1.174351.3.57[id number] 2.16840.1.526338.3.579.2.88432-47-6676Gycqcuw9221159 2.840.1.098011.3.579.2.38430-85-4096Uxjvbns0710162 2.840.1.632332.3.579.2.95893-32-0612Lywayoh9446766 2.840.1.100022.3.579.2.37089-33-0478Ipyzcfp1301007 2.0.1.679598.3.579.2.34017-39-6612Ptznrdj5640717 2.0.1.953968.3.579.2.47128-19-2615Nipoonk7768307 2.0.1.469344.3.579.2.67214-20-5737Wazyejh5318612 2.0.1.380898.3.579.2.19787-41-4052Dctatez9938923 2.0.1.952937.3.579.2.65765-25-0775Rgtykmq4074665 2..1.611352.3.579.2.19312-53-8265Cypzmfm0322307 2.0.1.924194.3.579.2.38560-28-4503Ypgmmkd0564273 2.0.1.656847.3.579.2.10476-66-3409Jnsingt77500520 2.840.1.310792.3.579.2.76895-92-6876Dfiwcey54582378 2.840.1.966100.3.579.2.37589-84-1193Gxtasoq6463169 2.16.840.1.669004.3.579.2.901669-58-2657Cykwqvl9680756 2.0.1.484776.3.579.2.902856-60-4356Hthkhra2314995 2.0.1.001194.3.579.2.535925-44-6005Ydsgpln8691889 2.0.1.226563.3.579.2.575370-92-6496Urpjcft0688273 2..1.663080.3.579.2.338384-78-9956Enlnbtn8381180 2.0.1.309526.3.579.2.495631-00-3639Qnrpyfu9067048 2.0.1.657182.3.579.2.1672Wxtotaj44120940 2.0.1.097366.3.579.2.531 Bewgwep33627919 2.0.1.489083.3.579.2.052Teowelj88905197 2.840.1.123675.3.579.2.649Ifzxsxg61973053 2.840.1.860468.3.579.2.531 Zxdnxii68397685 2.0.1.138167.3.579.2.515Wcrfvnz43921808 2.840.1.617018.3.579.2.509Gmnyvia14844365 2.0.1.209341.3.579.2.531 Ittvgjn07302924 2.0.1.112225.3.579.2.531 Social History DateTypeDetailFacilityStart: 04-10-2011 End: 59-27-2721Wdiwpxx smoking status NHISNever smoked tobaccoOhiohealth Grant Medical Center Start: 04-10-2011 End: 41-88-0879Wiplnkb use and exposureSmokeless tobacco non-userUpper Valley Medical Centertart: 88-79-9026Sxgrsca intakeCurrent non-drinker of alcohol (finding) [facility]ertart: 49-55-0245Jff Assigned At BirthNot on fileUpper Valley Medical Centertart: 10-08-2023 End: 43-22-0821Aij Assigned At [facility] [employer] Other Tobacco smoking status NHISTobacco smoking consumption unknownHIGHLAND RIDGE HOSPITAL HealthcareStart: 10-08-2023 End: 06-88-7059Hgarntt of Social functionNONY HealthcareStart: 06-20-2024 End: 07-93-6656Gaqsylodo beverage intakeEx-drinker (finding)[facility] HealthcareSex Female (finding)[facility]ertart: 33-85-8457Spz Assigned At BirthFeAdena [facility] Medical Centertart: 89-75-1862OLNZ Follow up [facility] Work Phone: Start: 39-12-2919OggMfnzfbFTCD Healthcare Medical Equipment Procedure CodeEquipment CodeEquipment Original TextEquipment IdentifierDates ORIF, fracture, ankleOrthopaedic bone screw, non-bioabsorbable, non-sterile ()[id number] FDAStart: 02-19-2937SHAF, fracture, ankleOrthopaedic bone screw, non-bioabsorbable, non-sterile()[id number] FDAStart: 02-06-2025 ORIF, fracture, ankleOrthopaedic bone screw, non-bioabsorbable, non-sterile ()[id number] FDAStart: 92-03-8506LGZG, fracture, ankleOrthopaedic bone screw, non-bioabsorbable, non-sterile()[id number] FDAStart: 02-06-2025 ORIF, fracture, ankleOrthopaedic bone screw, non-bioabsorbable, non-sterile ()[id number] FDAStart: 16-59-9829FHIM, fracture, ankleOrthopaedic fixation plate, non-bioabsorbable, sterile()[id number] FDAStart: 28-01-1051AQFX, fracture, ankleOrthopaedic bone screw, non-bioabsorbable, non-sterile ()[id number] FDAStart: 73-36-1047EEYM, fracture, ankleOrthopaedic bone screw, non-bioabsorbable, non-sterile()[id number] FDAStart: 02-06-2025 ORIF, fracture, ankleOrthopaedic bone screw, non-bioabsorbable, non-sterile ()[id number] FDAStart: 91-86-3989FTMV, fracture, ankleOrthopaedic bone screw, non-bioabsorbable, non-sterile()[id number] FDAStart: 02-06-2025 ORIF, fracture, ankleOrthopaedic bone screw, non-bioabsorbable, non-sterile ()[id number] FDAStart: 02-06-2025 Goals DatePatient GoalDesired Activity/State Clinical Notes 05-27-2022 to 01-23-2025 Note Date & RsagAijiDtnbsjxi51-41-2078 Evaluation note* Diagnosis Onset Date Resolution Status Admit Date Family history of Alzheimer's disease Augus2024 9:13amMemory difficultychronicAugust 2024 9:13am Closed left trimalleolar fractureacuteAugust 2024 7:29pmFibromyalgiaacute February 04, 2025 7:29pmHistory of thoracic outlet syndromeacuteAugus2024 7:29pm [facility] Work Phone: 1(419) 802-644708-11-2025 Evaluation note* Diagnosis Onset Date Resolution Status Admit Date Family history of Alzheimer's disease chronicAugus2024 9:13amMemory difficultychronicAugust 2024 9:13am Closed left trimalleolar fractureacuteAugust 2024 7:29pmFibromyalgiaacute February 04, 2025 7:29pmHistory of thoracic outlet syndromeacuteAugust 2024 7:29pmClosed left trimalleolar fractureacuteSeptember 2024 8:55am Encounter for removal of suturesacuteSeptember 2024 8:55amHistory of open reduction and internal fixation (ORIF) procedureacuteSeptember 2024 8:55am Other specified postprocedural statesacuteSeptember 2024 8:55am [facility] Work Phone: 1(540) 300-846708-11-2025 Evaluation note* Diagnosis Onset Date Resolution Status Admit Date Family history of Alzheimer's disease chronicAugust 2024 9:13amMemory difficultychronicAugust 2024 9:13am Closed left trimalleolar fractureacuteAugust 2024 7:29pmFibromyalgiaacute February 04, 2025 7:29pmHistory of thoracic outlet syndromeacuteAugust 2024 7:29pmArthritis of left footacuteSeptember 2024 8:55amClosed left trimalleolar fractureacuteSeptember 2024 8:55amEncounter for removal of suturesacuteSeptember 2024 8:55amHistory of open reduction and internal fixation (ORIF) procedureacuteSeptember 2024 8:55amOther specified postprocedural statesacuteSeptember 2024 8:55am [facility] Work Phone: 1(852) 728-887708-11-2025 Evaluation note* Diagnosis Onset Date Resolution Status Admit Date Family history of Alzheimer's disease chronicAugust 2024 9:13amMemory difficultychronicAugust 2024 9:13am Closed left trimalleolar fractureacuteAugust 2024 7:29pmFibromyalgiaacute February 04, 2025 7:29pmHistory of thoracic outlet syndromeacuteAugust 2024 7:29pmArthritis of left footacuteSeptember 2024 8:55amClosed left trimalleolar fractureacuteSeptember 2024 8:55amEncounter for removal of suturesacuteSeptember 2024 8:55amHistory of open reduction and internal fixation (ORIF) procedureacuteSeptember 2024 8:55amOther specified postprocedural statesacuteSeptember 2024 8:55amClosed left trimalleolar fractureacuteSeptember 2024 9:53amOther specified postprocedural states acuteSeptember 2024 9:53am [facility] Work Phone: 1(718) 909-136908-11-2025 Evaluation note* Diagnosis Onset Date Resolution Status Admit Date Family history of Alzheimer's disease chronicAugust 2024 9:13amMemory difficultychronicAugust 2024 9:13am Closed left trimalleolar fractureacuteAugust 2024 7:29pmFibromyalgiaacute [place] 2024 7:29pmHistory of thoracic outlet syndromeacuteAugust 2024 7:29pmArthritis of left footacuteSeptember 2024 8:55amClosed left trimalleolar fractureacuteSeptember 2024 8:55amEncounter for removal of suturesacuteSeptember 2024 8:55amHistory of open reduction and internal fixation (ORIF) procedureacuteSeptember 2024 8:55amOther specified postprocedural statesacuteSeptember 2024 8:55amClosed left trimalleolar fractureacuteSeptember 2024 9:53amOther specified postprocedural states acuteSeptember 2024 9:53amAnxietyacuteSeptember 2024 12:56pmFamily history of Alzheimer's diseasechronicSeptember 2024 12:56pmMemory difficultychronicSeptember 2024 12:56pm [facility] Work Phone: 1(291) 485-831808-11-2025 Evaluation note* Diagnosis Onset Date Resolution Status Admit Date Family history of Alzheimer's disease chronicAugust 2024 9:13amMemory difficultychronicAugust 2024 9:13am Closed left trimalleolar fractureacuteAugust 2024 7:29pmFibromyalgiaacute February 04, 2025 7:29pmHistory of thoracic outlet syndromeacuteAugust 2024 7:29pmArthritis of left footacuteSeptember 2024 8:55amClosed left trimalleolar fractureacuteSeptember 2024 8:55amEncounter for removal of suturesacuteSeptember 2024 8:55amHistory of open reduction and internal fixation (ORIF) procedureacuteSeptember 2024 8:55amOther specified postprocedural statesacuteSeptember 2024 8:55amClosed left trimalleolar fractureacuteSeptember 2024 9:53amOther specified postprocedural states acuteSeptember 2024 9:53amAnxietyacuteSeptember 2024 12:56pmLeft ankle painacuteSeptember 2024 12:56pmFamily history of Alzheimer's disease chronicSeptember 2024 12:56pmMemory difficultychronicSeptember 2024 12:56pmComplex regional pain syndrome i of left lower limbacuteOctober 2024 9:48amOther chronic painacuteOctober 2024 9:48am [facility] Work Phone: 1(491) 900-520208-11-2025 Evaluation note* Diagnosis Onset Date Resolution Status Admit Date Family history of Alzheimer's disease chronicAugust 2024 9:13amMemory difficultychronicAugust 2024 9:13am Closed left trimalleolar fractureacuteAugust 2024 7:29pmFibromyalgiaacute February 04, 2025 7:29pmHistory of thoracic outlet syndromeacuteAugust 2024 7:29pmArthritis of left footacuteSeptember 2024 8:55amClosed left trimalleolar fractureacuteSeptember 2024 8:55amEncounter for removal of suturesacuteSeptember 2024 8:55amHistory of open reduction and internal fixation (ORIF) procedureacuteSeptember 2024 8:55amOther specified postprocedural statesacuteSeptember 2024 8:55amClosed left trimalleolar fractureacuteSeptember 2024 9:53amOther specified postprocedural states acuteSeptember 2024 9:53amAnxietyacuteSeptember 2024 12:56pmLeft ankle painacuteSeptember 2024 12:56pmFamily history of Alzheimer's disease chronicSeptember 2024 12:56pmMemory difficultychronicSeptember 2024 12:56pmComplex regional pain syndrome i of left lower limbacuteOctober 2024 9:48amOther chronic painacuteOctober 2024 9:48amAvascular necrosis of bone of left hipacuteOctober 2024 9:10am [facility] Work Phone: 1(929) 928-754708-11-2025 Evaluation note* Diagnosis Onset Date Resolution Status Admit Date Family history of Alzheimer's disease chronicAugust 2024 9:13amMemory difficultychronicAugust 2024 9:13am Closed left trimalleolar fractureacuteAugust 2024 7:29pmFibromyalgiaacute [place] 2024 7:29pmHistory of thoracic outlet syndromeacuteAugust 2024 7:29pmArthritis of left footacuteSeptember 2024 8:55amClosed left trimalleolar fractureacuteSeptember 2024 8:55amEncounter for removal of suturesacuteSeptember 2024 8:55amHistory of open reduction and internal fixation (ORIF) procedureacuteSeptember 2024 8:55amOther specified postprocedural statesacuteSeptember 2024 8:55amClosed left trimalleolar fractureacuteSeptember 2024 9:53amOther specified postprocedural states acuteSeptember 2024 9:53amAnxietyacuteSeptember 2024 12:56pmLeft ankle painacuteSeptember 2024 12:56pmFamily history of Alzheimer's disease chronicSeptember 2024 12:56pmMemory difficultychronicSeptember 2024 12:56pmComplex regional pain syndrome i of left lower limbacuteOctober 2024 9:48amOther chronic painacuteOctober 2024 9:48amAvascular necrosis of bone of left hipacuteOctober 2024 9:10amClosed left trimalleolar fractureacute October 2024 10:16amOther specified postprocedural statesacuteOctober 2024 10:16am [facility] Work Phone: 1(784) 899-329708-11-2025 Evaluation note* Diagnosis Onset Date Resolution Status Admit Date Family history of Alzheimer's disease chronicAugust 2024 9:13amMemory difficultychronicAugust 2024 9:13am Closed left trimalleolar fractureacuteAugust 2024 7:29pmFibromyalgiaacute [place] 2024 7:29pmHistory of thoracic outlet syndromeacuteAugust 2024 7:29pmArthritis of left footacuteSeptember 2024 8:55amClosed left trimalleolar fractureacuteSeptember 2024 8:55amEncounter for removal of suturesacuteSeptember 2024 8:55amHistory of open reduction and internal fixation (ORIF) procedureacuteSeptember 2024 8:55amOther specified postprocedural statesacuteSeptember 2024 8:55amClosed left trimalleolar fractureacuteSeptember 2024 9:53amOther specified postprocedural states acuteSeptember 2024 9:53amAnxietyacuteSeptember 2024 12:56pmLeft ankle painacuteSeptember 2024 12:56pmFamily history of Alzheimer's disease chronicSeptember 2024 12:56pmMemory difficultychronicSeptember 2024 12:56pmComplex regional pain syndrome i of left lower limbacuteOctober 3rd, 2025 9:48amOther chronic painacuteOctober 2024 9:48amAvascular necrosis of bone of left hipacuteOctober 2024 9:10amClosed left trimalleolar fractureacute April 04, 2025 10:16amOther specified postprocedural statesacuteOctober 2024 10:16amComplex regional pain syndrome i of left lower limbacute April 05, 2025 1:19pmFibromyalgiaacuteOctober 2024 1:19pmOther chronic painacuteOctober 2024 1:19pm [facility] Work Phone: 1(542) 787-686303-03-2025 History of Present illness Narrative* Divya Dudley [...] syndrome on both sides 10/08/2023 Advancing dementia ([facility]/HCC) 10/08/2023 Abdominal pain 09/20/2009 Cervical spondylosis [...] tx with Miles solution. documented in this [facility]02-25-2025 Telephone encounter Note* Telephone Encounter - Divya Dudley MD - 08/09/2024 2:04 PM EST Thursday [facility] Fhmbqieffl50-66-5473 Miscellaneous Notes* Telephone Encounter - Divya Dudley MD - 08/09/2024 2:04 PM EST Thursday * Telephone Encounter - Jordana Dudley - 08/09/2024 1:40 PM EST Pt called in. Pt saw Dr Ramey last for a sore in her mouth. Dr Ramey told pt she should see Tomasz when the sore is in her mouth. She's been fighting sores in her mouth since March with Dr Ramey. She wants to know how soon she can get in. documented in this [facility]02-25-2025 Telephone encounter Note* Telephone Encounter - Jordana Dudley - 08/09/2024 1:40 PM EST Pt called in. Pt saw Dr Ramey last for a sore in her mouth. Dr Ramey told pt she should see Timmijoey when the sore is in her mouth. She's been fighting sores in her mouth since March with Dr Ramey. She wants to know how soon she can get in. [facility] Olueqhkhwc82-03-3836 History of Present illness Narrative* Miguel Ángel [...] reflexes are 2+ and symmetric throughout. Coordination: Ejvmro-rl-ozlx testing and rapid alternating movements are normal [...] disease is alsoidentified. -Thyroid stimulating hormone at [facility] on 04/20/2023: Normal Assessment/Plan Diagnoses and [...] of mental health issues documented in this encounterPemiscot Memorial Health SystemsLnxdtrqhzw38-92-9370 History of Present illness Narrative* Divya Dudley [...] myelopathy 07/10/2022 Fibromyalgia 09/20/2009 Idiopathic chronic pancreatitis ([facility]) 05/13/2018 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 region 06/03/2022 Resolved Ambulatory Problems Diagnosis Date Noted No Resolved Ambulatory Problems Past Medical History: Diagnosis Date Acid reflux Brachial neuritis or radiculitis 04/18/2014 Brachial plexus lesion 04/21/2008 Cataract Chronic pancreatitis ([facility]) Disease of thyroid gland ([facility]) Dry eyes Esophageal spasm Headache 04/21/2008 Hypercholesteremia ([facility]) IBS (irritable bowel syndrome) Lupus Migraine ([facility]) Pain in limb 04/21/2008 Thoracic outlet syndrome [...] evaluation by Dr Mullins. documented in this encounterPemiscot Memorial Health [id number] History of Present illness Narrative* Cindy Aguilar DO - 07/27/2023 2:15 PM EST Images [...] different lens options were explained including the [id number] fees for any upgrades. Intraocular lens (IOL) [...] permeable (RGP) lenses occurred. documented in this encounterPemiscot Memorial Health [id number] NoteHNO ID: [id number] Author: Benjamin Moore PA-C Service: ? Author Type: Physician Digital Asset Manager Type: Progress Notes Filed: 06/23/2022 7:54 AM Note Text: AMBULATORY TELEPHONE VISIT Skip Hong has consented to this telephone encounter. Patient was unable to connect to [employer] Virtual Visit - call to patient to [...] necessary. Total Time Spent: 45 minutes [facility]01-09-2023 History of Present illness Narrative* Benjamin Moore PA-C - 06/23/2022 7:27 AM EST AMBULATORY TELEPHONE VISIT Skip Hong has consented to this telephone encounter. Patient was unable to connect to [employer] Virtual Visit - call to patient to [...] minutes Benjamin Moore PA-C documented in this encounterOhiohealth Grant Medical Center12-21-2022 NoteHNO ID: [id number] Author: Sangeetha Vasquez APRN.PAROLE BOARD MEMBER Service: ? Author Type: Nurse Practitioner Type: [...] in person or virtual visit whatever patient preference.[facility] 06-04-2022 History of Present illness Narrative* Sangeetha Vasquez APRN.PAROLE BOARD MEMBER - 06/04/2022 11:10 AM EST Per Triage: [...] Hong Are you being referred by a [place] for Spine Health Provider or Pain Management Provider at [facility]? No If answer is YES please [...] facility where the MRI/CT/myelogram was completed: [facility] [address] [place] [address] MRI/CT/myelogram viewable in Epic: No If not, please provide [phone] to fax in imaging reports for review. Also, please inform patient to hand carry imaging disc to appointment. XR (spine) within 12 months: Yes If YES, please ask for the name/address of the facility where the XR was completed: [facility] [address] [place] [address] Dr. Suero's patients: Have you had previous [...] injections and/or physical therapy was completed Injections: [facility] [address] [place] [address] PT: unable to recall facility Have you [...] where the surgery was completed: Additional Comments [phone] documented in this encounterOhiohealth Grant Medical Center12-20-2022 NoteHNO ID: [id number] Author: Celeste Khalil Research Coordinator Service: ? Author Type: Research Type: Progress Notes Filed: 06/04/2022 11:31 AM Note Text: Patient name: Skip Hong Are you being referred by a [facility] for Sp[facility] Health Provider or Pain Management Provider at [facility]? No If answer is YES please schedule directly with surgeon, triage does not need to be completed. Is this a self-referral No If not, who is the Referring Provider Dr. Anitha Ramye's office referring the patient to be seen [...] facility where the MRI/CT/myelogram was completed: [place] [address] MRI/CT/myelogram viewable in Epic: No If not, please provide [phone] to fax in imaging reports for review. Also, please inform patient to hand carry imaging disc to appointment. XR (spine) within 12 months: Yes If YES,? please ask for the name/address of the facility where the XR was completed: [place] [address] Dr. Suero's patients: Have you had previous [...] injections and/or physical therapy was completed Injections: [facility] [address] [place] [address] PT: unable to recall facility Have you [...] where the surgery was completed: Additional Comments [phone]* Encounter Date Diagnosis Assessment Notes [...] and agrees. A referral will be sent [employer] Other evaluation note* Diagnosis Fibromyalgia- Primary Mylagia and myositis, unspecified Cervicalgia documented in this encounter [facility] Medical CenterEvaluation noteNo InformationNort [employer] Other Evaluation note* Diagnosis Age-related nuclear cataract of both eyes- Primary documented in this encounter [facility] Healthcare[facility] note* Diagnosis Age-related nuclear cataract of both eyes documented in this encounter [facility] Healthcare[facility] note* Diagnosis Age-related nuclear cataract of both eyes documented in this encounter [facility] HealthcareEvaluation note* Diagnosis Left facial pain- Primary Headache documented in this encounter [facility] HealthcareEvaluation note* Diagnosis Memory impairment- Primary Memory loss Anxiety Anxiety state, unspecified documented in this encounter [facility] HealthcareEvaluation note* Diagnosis Oral ulcer- Primary Other and unspecified diseases of the oral soft tissues documented in this encounter [facility] HealthcareEvaluation note* Diagnosis Onset Date Resolution Status Admit Date Memory difficulty chronicAugust 2024 9:13am [facility] Work Phone: Hisfnwk general Narrative - Reported* Type Description Date Medical History Migraines Medical HistoryFibromyalgiaMedical HistoryIBS (irritable bowel syndrome)Medical HistoryFrozen shoulderMedical HistoryArthritisMedical HistoryPancreatic cyst Medical HistoryRSD (reflex sympathetic dystrophy)Surgical Historytonsillectomy Surgical HistoryC sectionSurgical HistoryoophorectomySurgical Historyshoulder surgerySurgical HistoryhysterectomySurgical HistoryendometriosisSurgical History laparoscopySurgical HistorycholecystectomySurgical HistoryEGDSurgical History arthroscopy shoulderHospitalization Historysee above [facility] ImmusanT Other Hospital Discharge instructions Additional Instructions Please follow Orthopedic orders s/p surgery left ankle fracture-- *Nonweightbearing for 6 weeks on left ankle *May remove boot daily to gently clean around wound then reapply. [facility] Work Phone: Recbse for referral (narrative)No reason for referral information availableC[facility] Hospital Work Phone: Rewfla for visit NarrativeReferral update - pain mangementNortGeisinger-[facility] ImmusanT Other Summary Purpose Family History Relationship Condition Age at Onset Recorded Date/T amauri father Unknown motherDeceasedUnknown Advance Directives Advance Directive Response Recorded Date/ Time Advance Directives No February 10, 2018 2:23pm Advance Directive Response Recorded Date/ Time Advance Directives No February 11:37am Reason for Referral Reason DECLINED Evaluate and Treat Neck Pain Diagnosis 1 Neck pain (M54.2) Referral Organization [facility] urosurgery Referring Provider First Name Prasad Referring Provider Last Name Maame Referring Provider Specialty Neurologica l Surgery Referred Organization [facility] Pain Managemen t Referred Provider Bentley Bragg Referred Address [address] [place] [id number] Referred Provider Specialty Pain Medicin e Referral Priority Routine General Notes Jenifer Ramírez 022 08:31:51 AM >Received today and sent P2P Esthela Navarro 06/03/2022 02:35:54 PM >fyi patient declined seeing Dr Bragg, she stated she has returned to her previous PM provider in [place] Jenifer Ramírez 06/03/2022 02:59:27 PM >OK, thank [...] Date Family history of Alzheimer's disease [facility] 2024 9:13am Memory difficulty January 23, 2025 [...] Admit Date Family history of Alzheimer's disease [facility] 2024 9:13am Memory difficulty January 23, [...] 21, 2025 8:55am Other specified postprocedural states ptember 2024 8:55am Reason for Visit Admit Date Family history of Alzheimer's disease [facility] 2024 9:13am Memory difficulty January 23, 2025 9: 13am Closed left trimalleolar fracture February 04, 2025 7:29pm Fibromyalgia February 04, 2025 7: 29pm History of thoracic outlet syndrome Augu 2024 7:29pm Arthritis of left foot February [...] 2025 8:55am [id number] February 23, 2025 4:56pm Chief Complaint Admit Date 6 month follow [...] Date Family history of Alzheimer's disease [facility] 2024 9:13am Memory difficulty January 23, 2025 9: 13am Closed left trimalleolar fracture February 04, 2025 7:29pm Fibromyalgia February 04, 2025 7: 29pm History of thoracic outlet syndrome Aug[facility] 2024 7:29pm Arthritis of left foot February 21 8:55am Closed left trimalleolar fracture Septem macho 2024 8:55am [facility] 8:55am History of open reduction an d internal fixation (ORIF) procedure February 21, 2025 8:55am Other specified postprocedural states Se ptember 2024 8:55am Closed left trimalleolar fracture Septem 2024 9:53am Other specified postprocedural states Se ptember 2024 9:53am Reason for Visit Admit Date Family history of Alzheimer's disease [facility] 2024 9:13am Memory difficulty January 23, 2025 [...] specified postprocedural states Se ptember 2024 8:55am Closed left trimalleolar fracture Septem macho 2024 9:53am Other specified postprocedural states Se ptember 2024 9:53am Anxiety March 08, 2025 12:56pm Family history of Alzheimer's disease Se ptember 2024 12:56pm Memory difficulty March 08, 2025 12:56pm Chief Complaint Admit Date 6 month follow up January 23, 2025 9: 13am L ankle fx February 04, 2025 7: 29pm Z98.890 - Other specified postprocedural states February 21, 2025 7:37am 2 WEEKS February 21, 2025 8:55am m79.662 February 23, 2025 4:56pm Z98.890 - Other specified postprocedural states March 07, 2025 9:22am INCREASED LT ANKLE PAIN March 07, 2025 9:53am Ref: Dr. Rosales - Pain in Ankle March 17, 2025 9:48am Reason for Visit Admit Date Family history [...] specified postprocedural states Se ptember 2024 8:55am Closed left trimalleolar fracture Septem macho 2024 9:53am Other specified postprocedural states Se ptember 2024 9:53am Anxiety March 08, 2025 12:56pm Left ankle pain March 08, 2025 12:56pm Family history of Alzheimer's disease Se ptember 2024 12:56pm Memory difficulty March 08, 2025 12:56pm Complex regional pain syndrome i of left lower limb March 17, 2025 9:48am Other chronic pain March 17, 2025 9: 48am Chief Complaint Admit Date 6 month follow up January 23, 2025 9: 13am L ankle fx February 04, 2025 7: 29pm Z98.890 - Other specified postprocedural states February 21, 2025 7:37am 2 WEEKS February 21, 2025 8:55am [id number] February 23, 2025 4:56pm Z98.890 - Other specified postprocedural states March 07, 2025 9:22am INCREASED LT ANKLE PAIN March 07, 2025 9:53am Ref: Dr. Rosales - Pain in Ankle March 17, 2025 9:48am CONSULT DR RAMEY LT HIP PAIN/AVN March 152024 9:10am M25.552 - Pain in left hip March 24, 2025 9:24am Reason for Visit Admit Date Family history [...] specified postprocedural states Se ptember 2024 8:55am Closed left trimalleolar fracture Septem macho 2024 9:53am Other specified postprocedural states Se ptember 2024 9:53am Anxiety March 08, 2025 12:56pm Left ankle pain March 08, 2025 12:56pm Family history of Alzheimer's disease Se ptember 2024 12:56pm Memory difficulty March 08, 2025 12:56pm Complex regional pain syndrome i of left lower limb March 17, 2025 9:48am Other chronic pain March 17, 2025 9: 48am Avascular necrosis of bone of left hip O ctober 2024 9:10am Chief Complaint Admit Date 6 month follow up January 23, 2025 9: 13am L ankle fx February 04, 2025 7: 29pm Z98.890 - Other specified postprocedural states February 21, 2025 7:37am 2 WEEKS February 21, 2025 8:55am [id number] February 23, 2025 4:56pm Z98.890 - Other specified postprocedural states March 07, 2025 9:22am INCREASED LT ANKLE PAIN March 07, 2025 9:53am Ref: Dr. Rosales - Pain in Ankle March 17, 2025 9:48am CONSULT DR RAMEY LT HIP PAIN/AVN March 152024 9:10am M25.552 - Pain in left hip March 24, 2025 9:24am Complex regional pain syndrome of lower extremity March 27, 2025 10:19am CRPS PAIN March 29, 2025 8 :17am Chief Complaint Admit Date 6 month follow up January 23, 2025 9: 13am L ankle fx February 04, 2025 7: 29pm Z98.890 - Other specified postprocedural states February 21, 2025 7:37am 2 WEEKS February 21, 2025 8:55am [id number] February 23, 2025 4:56pm Z98.890 - Other specified postprocedural states March 07, 2025 9:22am INCREASED LT ANKLE PAIN March 07, 2025 9:53am Ref: Dr. Rosales - Pain in Ankle March 17, 2025 9:48am CONSULT DR RAMEY LT HIP PAIN/AVN March 152024 9:10am M25.552 - Pain in left hip March 24, 2025 9:24am Complex regional pain syndrome of lower extremity March 27, 2025 10:19am CRPS PAIN March 29, 2025 8 :17am 4 WEEKS April 04, 2025 1 0:16am Z98.890 - Other specified postprocedural states April 04, 2025 10:18am Reason for Visit Admit Date Family history [...] specified postprocedural states Se ptember 2024 8:55am Closed left trimalleolar fracture Septem 2024 9:53am Other specified postprocedural states Se ptember 2024 9:53am Anxiety March 08, 2025 12:56pm Left ankle pain March 08, 2025 12:56pm Family history of Alzheimer's disease Se ptember 2024 12:56pm Memory difficulty March 08, 2025 12:56pm Complex regional pain syndrome i of left lower limb March 17, 2025 9:48am Other chronic pain March 17, 2025 9: 48am Avascular necrosis of bone of left hip O ctober 2024 9:10am Closed left trimalleolar fracture Octobe r 2024 10:16am Other specified postprocedural states Oc tober 2024 10:16am Chief Complaint Admit Date 6 month follow up January 23, 2025 9: 13am L ankle fx February 04, 2025 7: 29pm Z98.890 - Other specified postprocedural states February 21, 2025 7:37am 2 WEEKS February 21, 2025 8:55am [id number] February 23, 2025 4:56pm Z98.890 - Other specified postprocedural states March 07, 2025 9:22am INCREASED LT ANKLE PAIN March 07, 2025 9:53am Ref: Dr. Rosales - Pain in Ankle March 17, 2025 9:48am CONSULT DR RAMEY LT HIP PAIN/AVN March 152024 9:10am M25.552 - Pain in left hip March 24, 2025 9:24am Complex regional pain syndrome of lower extremity March 27, 2025 10:19am CRPS PAIN March 29, 2025 8 :17am 4 WEEKS April 04, 2025 1 0:16am Z98.890 - Other specified postprocedural states April 04, 2025 10:18am FOLLOW UP AFTER SYMPATHETIC NB March 162024 1:19pm Reason for Visit Admit Date Family history [...] specified postprocedural states Se ptember 2024 8:55am Closed left trimalleolar fracture Septem 2024 9:53am Other specified postprocedural states Se ptember 2024 9:53am Anxiety March 08, 2025 12:56pm Left ankle pain March 08, 2025 12:56pm Family history of Alzheimer's disease Se ptember 2024 12:56pm Memory difficulty March 08, 2025 12:56pm Complex regional pain syndrome i of left lower limb March 17, 2025 9:48am Other chronic pain March 17, 2025 9: 48am Avascular necrosis of bone of left hip O ctober 2024 9:10am Closed left trimalleolar fracture Octobe r 2024 10:16am Other specified postprocedural states Oc tober 2024 10:16am Complex regional pain syndrome i of left lower limb April 05, 2025 1:19pm Fibromyalgia April 05, 2025 1 :19pm Other chronic pain April 05, 2025 1 :19pm Additional Source Comments Source Comments (unrecognize d section and content) In the event this informatio n is protected by the [facility] Confidentiality of Alcohol and Drug Abuse Patient Records regulations: The Federal rules restrict any use of the information to criminally investigate or prosecute any alcohol or drug abuse patient.[facility] Medical CenterIn the event this information is protected by the Federal Confidentiality of Alcohol and Drug Abuse Patient Records regulations: The Federal rules restrict any use of the information to criminally investigate or prosecute any alcohol or drug abuse patient.[facility] Care Teams (unrecognized sec tion and content) Team MemberRelationshipSpecialtyStart DateEnd Date Anitha Ramey MD [address] [place] [address] PCP - General09/07/09 Luli Roy (Hist), [address] [place] [address] UwyjjrgamWtecebdfsacypwng19/20/18Team MemberRelationshipSpecialtyStart DateEnd Date Anitha Ramey MD [address] [place] [address] PCP - General09/07/09 Luli Roy (Hist), MD [address] [place] [address] [place] [address] UgghiayliFbtpunedztabtdkp01/20/18Team MemberRelationshipSpecialtyStart DateEnd Anitha Ramey MD [address] [place] [facility] [address] PCP - GeneralFajamaica [facility] Medicine07/27/23Team MemberRelationshipSpecialtyStart DateEnd Anitha Ramey MD [address] [place] [facility] [address] PCP - GeneralFami Medicine07/27/23 Oral Fernandez, KEN [address] [facility] [place] [address] Referring PhysicianOptometry01/11/24Team MemberRelationshipSpecialtyStart DateEnd Anitha Ramey MD [address] [place] [facility] [address] PCP - GeneralGood [facility] Medicine07/27/23 Oral Fernandez, OD [address] [place] [address] Referring PhysicianOptometry01/11/24Team MemberRelationshipSpecialtyStart DateEnd Anitha Ramey MD [address] [place] [facility] [address] PCP - [facility]Good [facility] Medicine07/27/23 Oral Fernandez, OD [address] [facility] [place] [address] Referring PhysicianOptometry01/11/24Team MemberRelationshipSpecialtyStart DateEnd Date Anitha Ramey MD [address] [place] [facility] [address] PCP - GeneralFamily Medicine07/27/23 Oral Fernandez OD [address] [facility] [place] [address] Referring PhysicianOptometry01/11/24Team MemberRelationshipSpecialtyStart DateEnd Date Anitha Ramey MD [address] [place] [facility] [address] PCP - GeneralFami Medicine07/27/23 Oral Fernandez OD [address] [facility] [place] [address] Referring PhysicianOptometry01/11/24Team MemberRelationshipSpecialtyStart DateEnd Date Anitha Ramey MD [address] [place] [facility] [address] PCP - GeneralFamily Medicine07/27/23 Oral Fernandez OD [address] [facility] [place] [address] Referring PhysicianOptometry01/11/24Team MemberRelationshipSpecialtyStart DateEnd Date Anitha Ramey MD [address] [place] [facility] [address] PCP - GeneralFamily Medicine07/27/23 Oral Fernandez OD [address] [facility] [place] [address] Referring PhysicianOptometry01/11/24Team MemberRelationshipSpecialtyStart DateEnd Date Anitha Ramey MD [address] [place] [address] PCP - GeneralFaflly Medicine07/27/23 Jim Oral KEN [address] [place] [address] Referring PhysicianOptometry01/11/24 Team Status: Active Member Role Status Valdo Ramey MD Primary Care Provider Active Team Status: Inactive Member Role Status Dates Anitha Ramey MD Primary Care Provider Active Start: January 23, 2025 End: January 23, 2025Екатерина Chacon , AHME-TAU-ZJdxcewwop ProviderActiveStart: January 23, 2025 End: January 23, 2025 Team Status: Active Member Role Status Dates Anitha Ramey MD Primary Care Provider Active Start: February 04, 2025 Dax Matt DOAdmit ProviderActiveStart: February 04, 2025 Dax Matt DOOther ProviderActiveStart: February 04, 2025 Ravin Campoverde MDAttending ProviderActiveStart: February 04, 2025 Ravin Campoverde MDOther ProviderActiveStart: February 04, 2025 Maricruz Tobias MDOther ProviderActiveStart: February 04, 2025 Clint Sotelo DOOther ProviderActiveStart: February 04, 2025 Ryan Henderson II, MDOther ProviderActiveStart: February 04, 2025 Steven Ramsay , DOOther ProviderActiveStart: February 04, 2025 Team Status: Active Member Role Status Valdo Campoverde MD Attending Provider Active Star t: February 21, 2025 Anitha Ramey MDPribullock county hospitaly Care ProviderActiveStart: February 21, 2025 Team Status: Inactive Member Role Status Dates Anitha Ramey MD Primary Care Provider Active Start: February 21, 2025 End: February 21omas Gilles , ANAIttending ProviderActiveStart: February 21, 2025 End: February 21, 2025 Team Status: Inactive Member Role Status Valdo Campoverde MD Attending Provider Active Star t: February 21, 2025 End: February 21, 2025DoJulia Bryant Care ProviderActiveStart: February 21, 2025 End: February 21, 2025 Team Status: Inactive Member Role Status Valdo Ramey MD Primary Care Provider Active Start: February 23, 2025 End: February 23omas ANAI Campoverdettending ProviderActiveStart: February 23, 2025 End: February 23, 2025 Team Status: Active Member Role Status Valdo Campoverde MD Attending Provider Active Star t: March 07, 2025 Julia Natarajan Care ProviderActiveStart: March 07, 2025 Team Status: Inactive Member Role Status Valdo Ramey MD Primary Care Provider Active Start: March 07, 2025 End: March 07, 2025Thgalen Campoverde MDAttending ProviderActiveStart: March 07, 2025 End: March 07, 2025 Team Status: Inactive Member Role Status Valdo Campoverde MD Attending Provider Active Star t: March 07, 2025 End: March 07, 2025DoJulia Bryant Care ProviderActiveStart: March 07, 2025 End: March 07, 2025 Team Status: Inactive Member Role Status Valdo Ramey MD Primary Care Provider Active Start: March 08, 2025 End: March 08Anna Benito ProviderActive Start: March 08, 2025 End: March 08, 2025 Team Status: Inactive Member Role Status Valdo Ramey MD Primary Care Provider Active Start: March 17, 2025 End: March 17, 2025Ania Felixending ProviderActiveStart: March 17, 2025 End: March 17Nallely Benitoerring ProviderActiveStart: March 17, 2025 End: March 17, 2025 Team Status: Inactive Member Role Status Valdo Ramey MD Primary Care Provider Active Start: March 24, 2025 End: March 24, 2025Ryan Henderson II, MDAttending ProviderActiveStart: March 24, 2025 End: March 24, 2025 Team Status: Active Member Role Status Dates Anitha Ramey MD Primary Care Provider Active Start: March 24, 2025 Ryan Henderson II, MDAttending ProviderActiveStart: March 24, 2025 Team Status: Active Member Role Status Dates Anitha Ramey MD Primary Care Provider Active Start: March 27, 2025 Bentley Bragg , MDAttending ProviderActiveStart: March 27, 2025 Team Status: Inactive Member Role Status Dates Anitha Ramey MD Primary Care Provider Active Start: March 29, 2025 End: March 29, 2025Shmyrtle Bragg , MDAttending ProviderActiveStart: March 29, 2025 End: March 29, 2025 Team Status: Active Member Role/Relationship Status Dates Anitha Ramey MD Primary Care Provider Active Team Status: Inactive Member Role/Relationship Status Dates Anitha Ramey MD Primary Care Provider Active Start: January 23, 2025 End: January 23, 2025Екатерина Chacon , AHBX-CFX-UAyupwmlwe ProviderActiveStart: January 23, 2025 End: January 23, 2025 Team Status: Active Member Role/Relationship Status Valdo Ramey MD Primary Care Provider Active Start: February 04, 2025 Dax Matt , DOAdmit ProviderActiveStart: February 04, 2025 Dax Matt DOOther ProviderActiveStart: February 04, 2025 Ania Aguirreending ProviderActiveStart: February 04, 2025 Ravin Campoverde MDOther ProviderActiveStart: February 04, 2025 Maricruz Tobias MDOther ProviderActiveStart: February 04, 2025 Clint Sotelo DOOther ProviderActiveStart: February 04, 2025 Ryan Henderson II, MDOther ProviderActiveStart: February 04, 2025 Steven Ramsay , DOOther ProviderActiveStart: February 04, 2025 Team Status: Inactive Member Role/Relationship Status Dates Ravin Campoverde MD Attending Provider Active Star t: February 21, 2025 End: February 21, 2025DoJulia Bryant Care ProviderActiveStart: February 21, 2025 End: February 21, 2025 Team Status: Inactive Member Role/Relationship Status Valdo Ramey MD Primary Care Provider Active Start: February 21, 2025 End: February 21, 2025Thomas Oletano , MDAttending ProviderActiveStart: February 21, 2025 End: February 21, 2025 Team Status: Inactive Member Role/Relationship Status Valdo Ramey MD Primary Care Provider Active Start: February 23, 2025 End: February 23, 2025Thomas Oletano , MDAttending ProviderActiveStart: February 23, 2025 End: February 23, 2025 Team Status: Inactive Member Role/Relationship Status Valdo Campoverde MD Attending Provider Active Star t: March 07, 2025 End: March 07, 2025DoJulia Bryant Care ProviderActiveStart: March 07, 2025 End: March 07, 2025 Team Status: Inactive Member Role/Relationship Status Valdo Ramey MD Primary Care Provider Active Start: March 07, 2025 End: March 07omas Olexa , MDAttending ProviderActiveStart: March 07, 2025 End: March 07, 2025 Team Status: Inactive Member Role/Relationship Status Valdo Ramey MD Primary Care Provider Active Start: March 08, 2025 End: March 08peggy Rosales DOAttmaykel ProviderActive Start: March 08, 2025 End: March 08, 2025 Team Status: Inactive Member Role/Relationship Status Valdo Ramey MD Primary Care Provider Active Start: March 17, 2025 End: March 17, 2025Shmyrtle Bragg MDAttending ProviderActiveStart: March 17, 2025 End: March 17Cecelia Benito ProviderActiveStart: March 17, 2025 End: March 17, 2025 Team Status: Inactive Member Role/Relationship Status Valdo Ramey MD Primary Care Provider Active Start: March 24, 2025 End: March 24, 2025Robert M Santiago II, MDAttending ProviderActiveStart: March 24, 2025 End: March 24, 2025 Team Status: Inactive Member Role/Relationship Status Dates Anitha Ramey MD Primary Care Provider Active Start: March 24, 2025 End: March 24, 2025Robdavid Olivera Santiago II, MDAttending ProviderActiveStart: March 24, 2025 End: March 24, 2025 Team Status: Active Member Role/Relationship Status Dates Anitha Ramey MD Primary Care Provider Active Start: March 27, 2025 Bentley Bragg , MDAttending ProviderActiveStart: March 27, 2025 Team Status: Active Member Role/Relationship Status Dates Anitha Ramey MD Primary Care Provider Active Start: March 29, 2025 Bentley Bragg , ANAIttending ProviderActiveStart: March 29, 2025 Bentley Bragg MDOther ProviderActiveStart: March 29, 2025 Team Status: Inactive Member Role/Relationship Status Dates Anitha Ramey MD Primary Care Provider Active Start: April 04, 2025 End: April 04, 2025Thgalen Campoverde , ANAIttending ProviderActiveStart: April 04, 2025 End: April 04, 2025 Team Status: Active Member Role/Relationship Status Dates Ravin Campoverde MD Attending Provider Active Star t: April 04, 2025 Julia Natarajan Care ProviderActiveStart: April 04, 2025 Team Status: Inactive Member Role/Relationship Status Valdo Campoverde MD Attending Provider Active Star t: April 04, 2025 End: April 04, 2025DoJulia Bryant Care ProviderActiveStart: April 04, 2025 End: April 04, 2025 Team Status: Inactive Member Role/Relationship Status Dates Anitha Ramey MD Primary Care Provider Active Start: April 05, 2025 End: April 05, 2025Shmyrtle Bragg MDAttending ProviderActiveStart: April 05, 2025 End: April 05, 2025Team MemberRelationshipSpecialtyStart DateEnd Date Anitha Rame[facility] MD [facility] Oral Fernandez OD [address] [place] [id number] Referring PhysicianOptometry01/11/24 Reason for Visit (unrecogniz ed section and content) ReasonCommentsNeck PainReasonCommentsCataractReasonCommentsMed RefillReason CommentsFacial PainReasonOnset DateCommentsMouth Qbvvplr0908/09/2024ReasonComments Mouth Lesions INFORMATION SOURCE (unrecogn ized section and content) DATE CREATED AUTHOR 06/23/2022 [facility] DATE CREATED AUTHOR AUTHOR'S ORGANIZ ATION 07/02/2022 [facility] DATE CREATED AUTHOR AUTHOR'S ORGANIZ ATION 01/19/2024 [facility] DATE CREATED AUTHOR AUTHOR'S ORGANIZ ATION 01/20/2024 [facility] DATE CREATED AUTHOR AUTHOR'S ORGANIZ ATION 01/27/2024 [facility] DATE CREATED AUTHOR AUTHOR'S ORGANIZ ATION 08/16/2024 [facility] DATE CREATED AUTHOR AUTHOR'S ORGANIZ ATION 04/12/2025 [facility] Goals (unrecognized section and content) Goals [...] THE PRIMARY CLINICAL RECORDS. [facility] provides no warranty or guarantee of the accuracy or completeness of information in this document.
--- NOTE | 2025-04-21 10:43 | XR_ITS ---
[facility] [place] [id number] Patient Name: CRISTOBAL CALERO MRN: [id number] date: 1955 Sex: F Assigned Patient Location: [facility] Current Patient Location: [facility] Accession/Order Number: [id number] Exam Date: 04/21/2025 10:53 Report Date: 04/21/2025 11:29 At the request of: ANITHA RAMEY MD Procedure: XR knee LT 3V LEFT KNEE - 3 views COMPARISON: None CLINICAL DATA: Left knee pain for the past month after physical therapy. AP, lateral and internal oblique views were obtained. There is osteopenia. There is no acute fracture or dislocation. No disproportionate joint space narrowing or hypertrophy is seen. There is no knee effusion or soft tissue swelling. XR/XR knee LT 3V IMPRESSION: NO ACUTE BONY FINDINGS. Impression dictated by: Melva Núñez M.D. 04/21/2025 11:29 AM Dictation Location: [place] [address] Electronically authenticated by: [id number] Y Date: 04/21/2025 11:29
== END 2025-04-21 10:23 | disposition home or self-care (01) ==
LOC: RAD 10:23
PROVIDERS: PCP Family Medicine; Visit Provider Family Medicine
DX: M17.12 Unilateral primary osteoarthritis, left knee (principal)
CPT/HCPCS: 73562